=== PATIENT | female | born 1970 | race Caucasian/White ===

== ENCOUNTER 2017-07-07 14:00 | Outpatient (RCR) | payer BC, SELFPAY ==
--- NOTE | 2017-05-30 10:06 | HP.PTEVAL_ITS ---
Patient's Visit Information VALORIE STARK is a 47 year old F referred to Physical Therapy by Prudence Waterman DO with a diagnosis of RIGHT KNEE MILD MENISCUS TEAR/MFC STRESS FX. Date of Evaluation: 05/30/17 Physical Therapist: Maryellen Méndez Visit Plan Frequency: 2-3x /Week Duration: 4-6 Weeks Plan: AQUATIC THERAPY FOR CORE STRENGTHENING AND RIGHT LE ROM, STRETCHING AND STRENGTHENING TOLERATED. MONITOR RIGHT FOOT AND LEFT ANKLE SX'S. 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 SOME STEPS. LONG WALK INTO WORK FROM CAR. Disability: SHORT TERM DISABILITY UNTIL JUN 10 2017. Present symptoms: GENERALLY THE WHOLE KNEE AREA - ABOVE KNEE, BELOW KNEE THE INSIDE AND THE OUTSIDE. NOT REALLY IN THE BACK. TINGLING IN THE KNEE CAP AREA. THERE IS SOMETHING RIGHT FOOT SWELLS AND IS WONDERING IF SHE HAS A STRESS FRACTURE IN HER FOOT TOO. STATES DR. WATERMAN KNOWS ABOUT INTERMITTENT PAIN ON THE TOP OF HER RIGHT FOOT. FOOT SWELLS AND SOMETIMES SHE HAS TO TAKE HER SHOE OFF. BETTER NOW THAT SHE IS NOT WORKING AND ELEVATING IT MORE. LEFT ANKLE FEELS LIKE IT WANTS TO GIVE OUT ON STEPS SOMETIMES. IT IS WOBBLY AND PATIENT RELATES THE LLE SX'S ON THE STEPS FROM COMPENSATING FOR RIGHT KNEE. Present since: APR 07 2017. Pain Scale: KNEE: WORST 8/10, LEAST 2/10, RIGHT FOOT: WORST 7/10, LEAST 0/10. LEFT ANKLE : WORST 5/10, LEAST 0/10. Currently: RIGHT KNEE: 5/10, RIGHT FOOT: 2/10, LEFT ANKLE 0/10. Commenced as a result of: WENT TO THE GYM AT [employer] AT LUNCH AND DID ELIPTICAL. DIDN'T FEEL A PULL OR ANYTHING BUT WHEN SHE LEFT SHE WAS LIMPING AND IT GOT PROGRESSIVELY WORSE. Symptoms at onset: RIGHT KNEE. Worse: STEPS, SITTING AT DESK WITH KNEE BENT FOR 8-9 HOURS, RANDOM - WALKING, PROLONGED STANDING, ANY WEIGHT BEARING AND EVEN TRYING TO KICK COVERS OFF SOMETIMES. TWISTING TO GET IN/OUT OF CAR. Better: LYING DOWN AND ELEVATING IT WITH ICE HELPS. Disturbed sleep: YES. Previous history/Previous treatment: UNREMARKABLE. Gait: STARTED USING CRUTCHES ABOUT A WEEK AGO. WEIGHT BEARING TOLERATED PER DR. WATERMAN BUT USE CRUTCHES MUCH POSSIBLE. Accidents: NO. Unexplained weight loss: NO. Imaging: MRI RIGHT KNEE - STRESS FX ON FEMOR, TORN MENISCUS, LOSS OF CARTILEGE, BONE SPURS AND ARTHRITS PER PATIENT REPORT. RIGHT KNEE X-RAYS - NEGATIVE PER ORIG ASSESSMENT. NO IMAGING OF FEET OR ANKLES. ALSO HAD US TO CHECK FOR BLOOD CLOTS TWO WEEKS AGO AND THAT WAS NEGATIVE. PMH: UNREMARKABLE. Recent major surgery: UNREMARKABLE. OTHER: YESTERDAY SHE HAD FLUID DRAINED FROM HER KNEE AND A CORTISONE SHOT. PATIENT REPORTS SHE WAS ADIMIT WITH DR. WATERMAN ABOUT NOT WANTING ANY SURGERY. STATES DR. WATERMAN TOLD HER THE FX IS SMALL ENOUGH THAT SHE THINKS IT WILL HEAL ON ITS OWN. PATIENT REPORTS ISSUES WITH UPPER BACK AND NECK FOR YEARS PROBABLY RELATED TO DESK JOB - FLARED UP NOW. OCCASSIONAL LOW BACK PAIN - NOT FLARED UP NOW. 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 SEEMED GET BETTER. - Objective Sitting Posture: POOR. Standing Posture: FAIR. Lordosis: REDUCED. Lateral shift: NO. Relevant shift: N/A. Active Correction of posture: NE. Other Observations: DECREASED KNOWLEGE OF PROPER CRUTCH USE. INDEP SIT TO STAND BUT UE DEPENDENT. Motor deficit: LLE 5/5 WITH MMT. RIGHT LE: HIP 3/5, KNEE EXT 2 +/5, KNEE FLEX 2+/5 ANKLE DORSIFLEX 4/5, EHL 5/5. Sensory deficit: RIGHT KNEE HYPERSENSATIVITY. ROM deficit: TIGHT TERRANCE HS'S AND GASTROC SOLEUS COMPLEX'S. RIGHT KNEE ROM IN SUPINE WITH A HEEL SLIDE = FULL EXT TO 75 DEG FLEX. Reflexes : NT. Dural Signs: NEGATIVE TERRANCE LE DURAL SIGNS ALTHOUGH SUSPICIOUS OF RIGHT SCIATICA. Lumbar mvmt loss: flex - NIL. ext - MOD TO CELE. R SG - MIN. L SG - MIN. Core strength: POOR. Palpation: RIGHT KNEE EDEMA. OTHER: PATIENT HAS RIGHT KNEE BRACE THAT SHE WAS GIVEN BY DR. WATERMAN AND HER UNDERSTANDING IS THAT THE CRUTCHES AND RIGHT KNEE BRACE ARE TO BE USED NEEDED. TREATMENT: PWB/WBAT RIGHT LE WITH CRUTCHES ON LEVEL SURFACES AND UP AND DOWN STEPS. CRUTCHES ADJUSTED FOR PROPER FIT. HOME INSTRUCTIONS FOR USE OF KNEE BRACE AND CRUTCHES FOR AT LEAST A FEW DAYS TO NORMALIZE GAIT. INSTRUCTED IN AP'S AND QS' S FOR HEP. - Rehabilitation Potential Rehabilitation Potential: Fair - Anticipated Interventions Patient/Client Instruction: Educate patient on: Condition, Plan of Care, Risk Factors, Benefits of Fitness Program For the Purpose of:: To improve self management Therapeutic Exercise to Include: Strength training, Flexibilty training, Gait and locomotor training, In an aquatic setting, Active ROM, Dynamic Lumbar Stabilization For the Purpose of:: To improve ability of physical actions for home/community/ work/leisure Thank you for the opportunity to evaluate your patient. For Medicare and Medicare HMO plans, please review the plan of care and approve it. It will need to be FAXED BACK to us at [phone] for Medicare purposes. Please let me know if there are questions or concerns regarding this plan of care. Physician Signature: Date:
--- NOTE | 2017-07-07 16:29 | HP.PTREVAL ---
Prudence Kulkarni, DO, It has been my pleasure to treat VALORIE STARK over the last 15 visits for RIGHT KNEE MILD MENISCUS TEAR/MFC STRESS FX. Please see the progress note below for an update on the physical therapy plan of care! Subjective: PATIENT REPORTS SHE IS STILL HAVING TROUBLE ON STEPS BUT DOING WELL OTHERWISE. PATIENT REPORTS DR. KULKARNI RELEASED HER TO GO BACK TO WORK JUN 10 2017 BUT HER WORK DID NOT ALLOW HER TO GO BACK BECAUSE THEY COULD NOT ACCOMODATE HER CURRENT RESTRICTIONS. SHE STATES THAT THE HR SUPERVISOR [employer] SAID SHE COULD NOT GO BACK UNTIL JUL 22 2017. SHE IS STILL ON FMLA. SHE REPORTS SHE CAN DO ONE STEP AT A TIME THOUGH. PATIENT REPORTS SHE HAS MOSTLY GOOD DAYS BUT SOME BAD DAYS. SWELLING RIGHT KNEE LAST NIGHT - BETTER TODAY. Objective/Function: THIS PATIENT IS SHOWING IMPROVEMENT BUT STILL WITH SIGNIFICANT RIGHT KNEE TENDERNESS, SWELLING, LIMITED MOBILITY AND FUNCTION. STEPS ARE A CHALLENGE. UPON EXAM: SHE IS NOW ABLE TO INDEP SIT TO STAND WITHOUT UE ASSIST. Motor deficit: LLE 5/5 WITH MMT. RIGHT LE: HIP 4/5, KNEE EXT 3+ to 4-/5, KNEE FLEX 2+/5 ANKLE DORSIFLEX 5/5, EHL 5/5. Sensory deficit: RIGHT ANTERIOR KNEE HYPERSENSATIVITY BUT MORE LOCALIZED NOW THAN INITIAL EVAL. ROM deficit: TIGHT TERRANCE HS'S AND GASTROC SOLEUS COMPLEX'S. RIGHT KNEE ROM IN SUPINE WITH A HEEL SLIDE = FULL EXT TO 100 DEG FLEX. THIS IS A 25 DEG IMPROVEMENT FROM EVAL. Dural Signs: NEGATIVE TERRANCE LE DURAL SIGNS ALTHOUGH SUSPICIOUS OF RIGHT SCIATICA. Lumbar mvmt loss: flex - NIL - PROVOKES LBP TODAY. ext - MOD - TIGHTNESS LOW BACK. R SG - MIN. L SG - MIN. Core strength: POOR. Palpation: RIGHT KNEE EDEMA STILL PRESENT WITH MINIMAL IMPROVEMENT. OTHER: PATIENT HAS RIGHT KNEE BRACE THAT SHE WAS GIVEN BY DR. KULKARNI AND AMBULATES INDEP'LY INTO PT TODAY WITHOUT ANY ASSISTIVE DEVICES LIMPING ON THE RIGHT LE. RECOMMEND FOLLOW UP WITH DR. KULKARNI AT THIS POINT FOR UPDATE OF WORK RESTRICTIONS AND RECOMMENDATIONS. Plan Plan: RECOMMEND CONTINUED AQUATIC THERAPY DUE TO IMPROVEMENT THUS FAR FOR CORE STRENGTHENING AND RIGHT LE ROM, STRETCHING AND STRENGTHENING TOLERATED IF DR. KULKARNI CONCURS. PATIENT AGREEABLE WITH FOLLOW UP WITH DR. KULKARNI AT THIS POINT. MONITOR RIGHT FOOT AND LEFT ANKLE SX'S. Anticipated Interventions Patient/Client Instruction: Educate patient on: Condition, Plan of Care, Risk Factors, Benefits of Fitness Program For the Purpose of:: To improve self management Therapeutic Exercise to Include: Strength training, Flexibilty training, Gait and locomotor training, In an aquatic setting, Active ROM, Dynamic Lumbar Stabilization For the Purpose of:: To improve ability of physical actions for home/community/work/leisure Please do not hesitate to contact me at [phone] by phone or if you have questions or concerns regarding this new plan of care! Sincerely, Maryellen Royal
== END 2017-07-07 14:30 | disposition home or self-care (01) ==
LOC: PT 14:00
PROVIDERS: Family Provider Physician Assistant; PCP Physician Assistant; Visit Provider Orthopaedic Surgery
DX: S83.201D Bucket-handle tear of unspecified meniscus, current injury, left knee, subsequent encounter (principal); S72.431D Displaced fracture of medial condyle of right femur, subsequent encounter for closed fracture with routine healing
CPT/HCPCS: 97113; 97116; 97161; 97530

== ENCOUNTER → 2018-01-30 14:50 | Outpatient (CLI) | payer BC, SELFPAY | PROVIDERS: Family Provider Nurse Practitioner Primary Care; PCP Nurse Practitioner Primary Care; Visit Provider Nurse Practitioner Primary Care | DX: Z12.31 Encounter for screening mammogram for malignant neoplasm of breast (principal) | CPT/HCPCS: 77063; 77067 ==

== ENCOUNTER → 2018-02-10 13:32 | Outpatient (CLI) | payer BC, SELFPAY | PROVIDERS: Family Provider Nurse Practitioner Primary Care; PCP Nurse Practitioner Primary Care; Visit Provider Nurse Practitioner Primary Care | DX: R92.8 Other abnormal and inconclusive findings on diagnostic imaging of breast (principal) | CPT/HCPCS: 76642; 77065 ==

== ENCOUNTER → 2018-02-27 10:30 | Outpatient (CLI) | payer BC, SELFPAY ==
--- NOTE | 2018-02-27 11:00 | BRBX_PTH ---
PATIENT: VALORIE RUSSELL LOC: [facility] U#:[id number] AGE/SX: 55/F ROOM: RE02/27/[address]: Dr. Elvin Wolfe MD : 1970 BED: DIS: SPEC #: [id number] RECD: 02/27/18 12:20 STATUS: JOANN MORA #: [id number] MIKI: 02/27/18 11:[address]: Elvin Wolfe DEPT: SURGICAL PATHOLOGY RECD BY: Rafa Granados ENTERED: 02/27/18 12:28 SP TYPE: BREAST BX OTHR DR: Maida Kim, SWIMMING POOL MAINTENANCE-C Tissues: Right breast, NOS Procedures: Surgery Specimen Level IV HEADER OPERATION: Right stereotactic breast biopsy PRE-OP DIAGNOSIS: Right breast deep medial aspect density TISSUE SUBMITTED: Right breast core tissue ISCHEMIC TIME: 1 minute FIXATION TIME: 56.5 hours MICROSCOPIC DIAGNOSIS Right breast, deep medial aspect, core biopsy: Fibrocystic change. Focal intraductal hyperplasia without atypia. Evidence of malignancy. AM:nadir 03/02/18 MICROSCOPIC DESCRIPTION Slides are reviewed. GROSS DESCRIPTION Received is one container labeled with the patient's name and not further designated. The specimen consists of multiple elongated fragments of villarreal-yellow fibroadipose tissue that in aggregate measure 7.5 x 3 x 0.3 cm. The entire specimen is submitted in three cassettes. / SJ:nadir 02/27/18 TC:5 CPT: 41609
--- NOTE | 2018-02-27 11:00 | BRBX_PTH ---
PATIENT: VALORIE RUSSELL LOC: [facility] U#:[id number] AGE/SX: 55/F ROOM: RE02/27/[address]: Dr. Elvin Wolfe MD : 1970 BED: DIS: SPEC #: [id number] RECD: 02/27/18 12:20 STATUS: JOANN MORA #: [id number] MIKI: 02/27/18 11:[address]: Elvin Wolfe DEPT: SURGICAL PATHOLOGY RECD BY: Rafa Granados ENTERED: 02/27/18 12:28 SP TYPE: BREAST BX OTHR DR: Maida Kim, CREDIT CORRESPONDENCE CLERK-C Tissues: Right breast, NOS Procedures: Surgery Specimen Level IV HEADER OPERATION: Right stereotactic breast biopsy PRE-OP DIAGNOSIS: Right breast deep medial aspect density TISSUE SUBMITTED: Right breast core tissue ISCHEMIC TIME: 1 minute FIXATION TIME: 56.5 hours MICROSCOPIC DIAGNOSIS Right breast, deep medial aspect, core biopsy: Fibrocystic change. Focal intraductal hyperplasia without atypia. No evidence of malignancy. AM:nadir 03/02/18 AM:nadir 03/03/18 MICROSCOPIC DESCRIPTION Slides are reviewed. GROSS DESCRIPTION Received is one container labeled with the patient's name and not further designated. The specimen consists of multiple elongated fragments of villarreal-yellow fibroadipose tissue that in aggregate measure 7.5 x 3 x 0.3 cm. The entire specimen is submitted in three cassettes. / SJ:nadir 02/27/18 TC:5 CPT: 38425
--- NOTE | 2018-02-27 11:11 | PCM.OPRPT ---
Problem List (1) Abnormal mammogram of right breast Status: Acute Report of Operation Date of Procedure: 02/27/18 Pre-Operative Diagnosis: Vague density medial right breast Post-Operative Diagnosis: Same Surgery/Procedure Performed:: Stereotactic needle core medial right breast biopsy Description of Surgical Findings:: Timeout and informed consent was obtained. 47-year-old female was taken to the stereotactic room placed on the table. The right breast was placed in a craniocaudal view. The density in question was identified. Stereotactic images were obtained. Digital information was obtained on a single target site. The breast was prepped with Betadine. 1% lidocaine was used as a local anesthetic. A total of 10 cc was used. A small stab incision was created. An 8-gauge mammotome needle was advanced to prefire depth. Pre-and post fire films were obtained. Multiple cores were obtained. A marking clip was left at 12 o'clock position. On fast view demonstrated a marking clip to be in good position. She was released from the device. Pressure was held for hemostasis. Steri-Strips Telfa OpSite dressing applied. She was given activity and wound care instructions. The specimens were immediately placed in formalin for analysis. She will be provided a phone contact with pathology results as soon as they become available. Specimens include breast core biopsies. Drains none. Blood loss minimal. Elvin Wolfe M.D., F.A.C.S. Type of Anesthesia:: Local
== END ==
PROVIDERS: Family Provider Nurse Practitioner Primary Care; PCP Nurse Practitioner Primary Care; Visit Provider Surgery
DX: N62 Hypertrophy of breast (principal); R92.8 Other abnormal and inconclusive findings on diagnostic imaging of breast
CPT/HCPCS: 19081; 88305; J7050

== ENCOUNTER → 2018-09-08 08:55 | Outpatient (CLI) | payer BC, SELFPAY ==
[2018-02-20 15:37] VITALS: BMI 32.6
--- NOTE | 2018-09-08 08:59 | BI_ITS ---
MAMMOGRAPHY - UNILATERAL DIAGNOSTIC: RIGHT BREAST REASON FOR EXAM: Female, 48 years old. Six-month follow-up mammogram following stereotactic breast biopsy of the nodular density. PERTINENT HISTORY: Non-contributory. TECHNIQUE: Digital unilateral breast john (3D mammographic acquisition) in the CC and MLO projections. 2-D mediolateral oblique (MLO) and craniocaudad (CC) views of both breasts were obtained. CAD: Full Field Digital Mammography with Computer Added Detection was performed. COMPARISON: Comparison is made with prior mammogram dated January 30, 2018 and February 10, 2018. FINDINGS: Breast Composition: The breasts are heterogeneously dense, which may obscure small masses. A tissue clip marker is now seen within the 1 cm nodular density in the deep slightly medial aspect of the right breast No other significant abnormalities are identified. BI/DIAG MAMM W/CAD, UNILAT IMPRESSION: A tissue clip marker is seen within the nodular density at the site of the prior biopsy. No new abnormality is seen. One year follow-up mammogram recommended. (A) ASSESSMENT CATEGORY: BIRADS Category 2: Benign. A letter regarding these results will be sent to the patient by the facility within 30 days. Approximately 10% of breast cancers are not detected by mammography. A normal mammogram should not delay biopsy of a clinically suspicious abnormality. Electronically Signed: Amor Cedillo, at 10:36 EDT , Service support ,
== END ==
PROVIDERS: Family Provider Nurse Practitioner Primary Care; PCP Nurse Practitioner Primary Care; Referring Provider Surgery; Visit Provider Surgery
DX: N63.10 Unspecified lump in the right breast, unspecified quadrant (principal)
CPT/HCPCS: 77061; 77065; G0279

== ENCOUNTER → 2019-04-05 | Outpatient (CLI) | payer BC, SELFPAY ==
[2019-02-11 14:51] VITALS: BMI 32.6
--- NOTE | 2019-04-05 07:10 | MRI_ITS ---
STUDY: MRI RIGHT KNEE REASON FOR EXAM: Right knee pain, twisting injury in March 2017. TECHNIQUE: Standardized fat and water weighted pulse sequences were obtained in all 3 orthogonal planes. COMPARISON: MRI images 05/19/2017. FINDINGS: There is a radial tear at the root of the posterior horn of the medial meniscus (T2 coronal image 17; T2 sagittal image 15) mildly increased in size since the prior study. There is peripheral subluxation of the medial meniscus. There is arthrosis of the medial femorotibial compartment with small marginal osteophytes and chondral thinning (T2 sagittal image 16). There is resolution of the previous subchondral stress fracture of the medial femoral condyle with only slight residual bone edema in the medial femoral condyle. Normal medial collateral ligamentous complex (MCL). Normal distal semimembranosus, gracilis and semitendinosus tendons. Normal lateral meniscus. Normal hyaline cartilage of the lateral femorotibial compartment. There are very small marginal osteophytes of the lateral femorotibial compartment. Normal lateral femoral condyle and tibial plateau. Normal proximal tibiofibular articulation. Normal lateral collateral (fibular) ligament. Normal popliteus tendon. Normal biceps femoris tendon. Normal anterior cruciate ligament (ACL). Normal posterior cruciate ligament (PCL). Normal congruent patellofemoral articulation. There is a focal chondral defect of the patella (T2 axial image 10) similar to the prior study and a chondral fissure of the lateral femoral trochlea (T2 sagittal image 9). Normal medial and lateral patellar retinaculum. Normal visualized quadriceps tendon. Normal patellar tendon. Normal Hoffa's fat pad. There is a small joint effusion with mild synovitis in the suprapatellar recess (T2 axial images 5-9). There is a mildly thickened medial patellar plica (T2 axial images 12, 13). There is a popliteal cyst measuring 7.8 cm in length (T2 sagittal images 13-21). There is a ganglion cyst superior to the posterior cruciate ligament (T2 sagittal image 12) measuring 3.1 cm in length. The otherwise visualized osseous structures are unremarkable. MRI/Lower Ext Joint Only (Routine) IMPRESSION: Radial tear at the root of the posterior horn of the medial meniscus. Arthrosis of the medial femorotibial compartment. Focal chondral defect of the patella and chondral fissure of the lateral femoral trochlea. Small joint effusion with mild synovitis. Popliteal cyst. Mildly thickened medial patellar plica. Ganglion cyst superior to the posterior cruciate ligament. Electronically Signed: El Flaherty MD at 8:46 EDT Tel , Service support ,
== END | disposition home or self-care (01) ==
PROVIDERS: Family Provider Nurse Practitioner Primary Care; PCP Nurse Practitioner Primary Care; Referring Provider Orthopaedic Surgery; Visit Provider Orthopaedic Surgery
DX: S83.206D Unspecified tear of unspecified meniscus, current injury, right knee, subsequent encounter (principal)
CPT/HCPCS: 73721

== ENCOUNTER → 2019-04-09 15:23 | Outpatient (CLI) | payer BC, SELFPAY ==
[2019-02-11 14:51] VITALS: BMI 32.6
--- NOTE | 2019-04-09 15:26 | BI_ITS ---
MAMMOGRAPHY - BILATERAL SCREENING REASON FOR EXAM: Female, 49 years old. Routine annual screening examination. PERTINENT HISTORY: Non-contributory. TECHNIQUE: Digital bilateral breast tory (3D mammographic acquisition) in the CC and MLO projections. 2-D mediolateral oblique (MLO) and craniocaudad (CC) views of both breasts were obtained. CAD: Full Field Digital Mammography with Computer Added Detection was performed. COMPARISON: Comparison is made with prior study dated September 08, 2018 and January 30, 2018. FINDINGS: Breast Composition: The breasts are heterogeneously dense, which may obscure small masses. There are no dominant masses or suspicious calcifications. A tissue clip marker is seen in the tiny nodular density in the deep upper central portion of the right breast. No other significant abnormalities are identified. There has been no significant change since the prior study. BI/SCREEN MAMM (CAD) W/TORY BILAT IMPRESSION: Stable bilateral screening mammogram. Yearly follow-up mammogram recommended. (A) ASSESSMENT CATEGORY: BIRADS Category 2: Benign. A letter regarding these results will be sent to the patient by the facility within 30 days. Approximately 10% of breast cancers are not detected by mammography. A normal mammogram should not delay biopsy of a clinically suspicious abnormality. [id number] Electronically Signed: Amor Cedillo, at 8:46 EST , Service support ,
== END ==
PROVIDERS: Family Provider Nurse Practitioner Primary Care; PCP Nurse Practitioner Primary Care; Referring Provider Nurse Practitioner Primary Care; Visit Provider Nurse Practitioner Primary Care
DX: Z12.31 Encounter for screening mammogram for malignant neoplasm of breast (principal)
CPT/HCPCS: 77063; 77067

== ENCOUNTER → 2021-04-19 10:14 | Outpatient (CLI) | payer BC, SELFPAY ==
--- NOTE | 2021-04-19 10:16 | BI_ITS ---
MAMMOGRAPHY - BILATERAL SCREENING REASON FOR EXAM: Female, 51 years old. Routine annual screening examination. PERTINENT HISTORY: Non-contributory. Prior right stereotactic breast biopsy. Occasional left mild breast tenderness. TECHNIQUE: Digital bilateral breast tory (3D mammographic acquisition) in the CC and MLO projections. 2-D mediolateral oblique (MLO) and craniocaudad (CC) views of both breasts were obtained. CAD: Full Field Digital Mammography with Computer Added Detection was performed. COMPARISON: Comparison is made with prior study dated 04/09/2019 and 09/08/2018. FINDINGS: Breast Composition: The breasts are heterogeneously dense, which may obscure small masses. There are no dominant masses or suspicious calcifications. A tissue clip marker is seen in the deep upper slightly medial aspect of the right breast. No other significant abnormalities are identified. There has been no significant change since the prior study. BI/SCRN MAMM (CAD)W/TORY BILAT IMPRESSION: Stable bilateral screening mammogram. Yearly follow-up mammogram recommended. (A) ASSESSMENT CATEGORY: BIRADS Category 2: Benign. A letter regarding these results will be sent to the patient by the facility within 30 days. Approximately 10% of breast cancers are not detected by mammography. A normal mammogram should not delay biopsy of a clinically suspicious abnormality. [id number] Electronically Signed: Amor Cedillo MD at 10:57 EST , Service support ,
== END ==
PROVIDERS: PCP Nurse Practitioner Primary Care; Referring Provider Nurse Practitioner Primary Care; Visit Provider Nurse Practitioner Primary Care
DX: Z12.31 Encounter for screening mammogram for malignant neoplasm of breast (principal)
CPT/HCPCS: 77063; 77067

== ENCOUNTER 2022-01-02 10:58 | Outpatient (RCR) | payer BC, SELFPAY | END 2022-01-06 23:59 | LOC: NS 10:58 | PROVIDERS: PCP Nurse Practitioner Primary Care | DX: Z71.3 Dietary counseling and surveillance (principal); E66.9 Obesity, unspecified; Z68.35 Body mass index [BMI] 35.0-35.9, adult | CPT/HCPCS: 97802 ==

== ENCOUNTER → 2022-02-01 | Outpatient (CLI) | payer BC, SELFPAY ==
--- NOTE | 2022-02-01 07:27 | MRI_ITS ---
STUDY: MRI LEFT KNEE REASON FOR EXAM: Increasing left knee pain. TECHNIQUE: Standardized fat and water weighted pulse sequences were obtained in all 3 orthogonal planes. COMPARISON: Radiographs 01/17/2022. FINDINGS: There is a radial tear at the root of the posterior horn of the medial meniscus (T2 coronal images 11, 12). There is peripheral subluxation of the medial meniscus. There is arthrosis of the medial femorotibial compartment with marginal osteophytes and chondral loss (T2 sagittal image 8). There is a small focus of subchondral bone edema of the medial plateau (T2 coronal images 17-19), a stress phenomenon. Normal medial collateral ligamentous complex (MCL). Normal distal semimembranosus, gracilis and semitendinosus tendons. Normal lateral meniscus. Normal hyaline cartilage of the lateral femorotibial compartment. There are marginal osteophytes of the lateral femorotibial compartment. Normal lateral femoral condyle and tibial plateau. Normal proximal tibiofibular articulation. Normal lateral collateral (fibular) ligament. Normal popliteus tendon. Normal biceps femoris tendon. Normal anterior cruciate ligament (ACL). Normal posterior cruciate ligament (PCL). Normal congruent patellofemoral articulation. There is arthrosis of the patellofemoral compartment with marginal osteophytes and partial-thickness chondral loss (T2 sagittal image 12). Normal medial and lateral patellar retinaculum. Normal quadriceps tendon. Normal patellar tendon. Normal Hoffa''s fat pad. There is a small joint effusion. There is a thickened medial patellar plica (T2 axial images 12, 13). There is a popliteal cyst measuring 7.1 cm in length (T2 sagittal images 7-13). There is a ganglion cyst proximal to the posterior cruciate ligament (T2 sagittal image 14) measuring 1.8 cm in length. There is mild edema in the anterior subcutis adipose space. There is mild cystic change of the proximal tibia near the insertion sites of the cruciate ligaments. MRI/Lower Ext Joint Only (Routine) IMPRESSION: Radial tear at the root of the posterior horn of the medial meniscus. Arthrosis of the medial femorotibial and patellofemoral compartments. Small focus of subchondral bone edema of the medial tibial plateau, a stress phenomenon. Small joint effusion. Popliteal cyst. Thickened medial patellar plica. Posterior ganglion cyst. Electronically Signed: El Flaherty MD at 9:31 EDT ,
--- NOTE | 2022-02-01 07:27 | MRI_ITS ---
STUDY: MRI RIGHT KNEE REASON FOR EXAM: Right knee pain, stiffness, swelling. TECHNIQUE: Standardized fat and water weighted pulse sequences were obtained in all 3 orthogonal planes. COMPARISON: Radiographs 01/17/2022, MRI images 04/05/2019. FINDINGS: There is a radial tear at the root of the posterior horn of the medial meniscus (T2 coronal image 10) with little interval change prior study. There is peripheral subluxation of the medial meniscus. There is arthrosis of the medial femorotibial compartment with marginal osteophytes and chondral loss (T2 sagittal image 9). There is very mild subchondral bone edema of the medial tibial plateau (T2 coronal images 14-17), a stress phenomenon. Normal medial collateral ligamentous complex (MCL). Normal distal semimembranosus, gracilis and semitendinosus tendons. Normal lateral meniscus. Normal hyaline cartilage of the lateral femorotibial compartment. There are small marginal osteophytes of the lateral femorotibial compartment. Normal lateral femoral condyle and tibial plateau. Normal proximal tibiofibular articulation. Normal lateral collateral (fibular) ligament. Normal popliteus tendon. Normal biceps femoris tendon. Normal anterior cruciate ligament (ACL). Normal posterior cruciate ligament (PCL). Normal congruent patellofemoral articulation. There is arthrosis of the patellofemoral compartment with marginal osteophytes and partial-thickness chondral loss (T2 sagittal image 13). Normal medial and lateral patellar retinaculum. Normal quadriceps tendon. Normal patellar tendon. Normal Hoffa''s fat pad. There is a small joint effusion with synovitis (T2 axial images 5-14). There is a popliteal cyst measuring 8.6 in length (T2 sagittal images 4-11). There is a ganglion cyst proximal to the posterior cruciate ligament (T2 sagittal images 14, 15) measuring 3 cm in length. The otherwise visualized osseous structures are unremarkable. MRI/Lower Ext Joint Only (Routine) IMPRESSION: Radial tear at the root of the posterior horn of the medial meniscus with little interval change. Arthrosis of the medial femorotibial and patellofemoral compartments. Small joint effusion with synovitis. Popliteal cyst. Posterior ganglion cyst. Electronically Signed: El Flaherty MD at 9:21 EDT ,
== END | disposition home or self-care (01) ==
PROVIDERS: PCP Nurse Practitioner Primary Care; Referring Provider Physician Assistant; Visit Provider Physician Assistant
DX: M17.0 Bilateral primary osteoarthritis of knee (principal); M25.562 Pain in left knee
CPT/HCPCS: 73721

== ENCOUNTER 2022-05-07 16:17 | Outpatient (CLI) | payer BC, SELFPAY ==
--- NOTE | 2022-05-07 16:19 | BI_ITS ---
MAMMOGRAPHY - BILATERAL SCREENING REASON FOR EXAM: Female, 52 years old. Routine annual screening examination. PERTINENT HISTORY: Non-contributory. History of prior right stereotactic breast biopsy. TECHNIQUE: Digital bilateral breast tory (3D mammographic acquisition) in the CC and MLO projections. 2-D mediolateral oblique (MLO) and craniocaudad (CC) views of both breasts were obtained. CAD: Full Field Digital Mammography with Computer Added Detection was performed. COMPARISON: Comparison is made with prior examination dated 04/19/2021 and 04/09/2019. FINDINGS: Breast Composition: The breasts are heterogeneously dense, which may obscure small masses. There are no dominant masses or suspicious calcifications. Once again, a tissue clip marker is seen in the deep upper slightly medial aspect of the right breast. Stable small benign-appearing bilateral axillary lymph nodes. No other significant abnormalities are identified. There has been no significant change since the prior study. BI/SCRN MAMM (CAD)W/TORY BILAT IMPRESSION: Stable bilateral screening mammogram. Yearly follow-up mammogram recommended. (A) ASSESSMENT CATEGORY: BIRADS Category 2: Benign. A letter regarding these results will be sent to the patient by the facility within 30 days. Approximately 10% of breast cancers are not detected by mammography. A normal mammogram should not delay biopsy of a clinically suspicious abnormality. [id number] Electronically Signed: Amor Cedillo MD at 8:26 EST ,
== END 2022-05-07 23:59 | disposition home or self-care (01) ==
PROVIDERS: PCP Nurse Practitioner Primary Care; Visit Provider Nurse Practitioner Primary Care
DX: Z12.31 Encounter for screening mammogram for malignant neoplasm of breast (principal)
CPT/HCPCS: 77063; 77067

== ENCOUNTER 2022-05-10 11:37 | Outpatient (CLI) | payer BC, SELFPAY ==
--- NOTE | 2022-05-10 11:12 | US_ITS ---
STUDY: ULTRASOUND BREAST - LEFT REASON FOR EXAM: Female, 52 years old. Abnormal screening mammogram. TECHNIQUE: Axial and longitudinal images of the LEFT breast were performed with a high resolution ultrasound transducer. # OF IMAGES: 58 COMPARISON: Comparison is made with prior mammogram dated 05/07/2022. FINDINGS: LEFT Breast: The upper lateral aspect of the right breast was examined with ultrasound. There is a 1.87 x 1.7 cm x 1.9 cm lobulated hypoechoic solid nodule at the 2 o''clock position of the breast at 9 sinus from nipple. A similar appearing irregular nodular density is seen at the 1 o''clock position of the breast at 7 cm from nipple. This measures 1.3 cm x 1.2 cm x 1.6 cm. US/Breast Limited Unilateral IMPRESSION: There are 2 adjacent irregular hypoechoic solid nodules at the 1 o''clock and 2 o''clock position of the left breast as described. Biopsy recommended. ASSESSMENT CATEGORY: BIRADS Category 4: Suspicious - Biopsy Should Be Considered. A letter regarding these results will be sent to the patient by the facility within 30 days. Electronically Signed: Amor Cedillo MD at 8:40 EST ,
== END 2022-05-10 23:59 | disposition home or self-care (01) ==
LOC: OPUS 11:38
PROVIDERS: PCP Nurse Practitioner Primary Care; Referring Provider Nurse Practitioner Primary Care; Visit Provider Nurse Practitioner Primary Care
DX: R92.8 Other abnormal and inconclusive findings on diagnostic imaging of breast (principal); N63.21 Unspecified lump in the left breast, upper outer quadrant
CPT/HCPCS: 76642

== ENCOUNTER 2022-05-23 02:12 | Emergency (ER) | payer BC, SELFPAY ==
[2022-05-23 02:13] VITALS: BP 142/54; PULSE 93; RESP 20; TEMP 36.7; O2SAT 98; BMI 37.0
--- NOTE | 2022-05-23 02:18 | EDS_ITS ---
HPI History of Present Illness Chief Complaint: Chest Pain Detail of Chief Complaint: Left sided chest discomfort Informant: patient Onset/Context/Timing Onset: Yesterday (2100) and Hours Activity at onset: sudden Timing: Continuous Quality: Positive for - (Discomfort fullness from the axilla to the left sternal border and upper breast region) Location: - (Left-sided chest as previously described) Current Severity: Mild Maximum Severity: Moderate Worsened By: Nothing Relieved By: Nothing Associated Symptoms: Negative for Nausea, Vomiting, Diaphoresis, Cough, Fever, Lightheadedness, Acid Reflux or Palpitations Narrative Narrative: Patient is a 52-year-old woman who had a recent mammogram, 2 weeks ago. She had a subsequent ultrasound. She states she needs a biopsy. There is swelling of the left breast and firm sensation upper quadrant to the left breast. She presents because of discomfort that is from the axilla to left sternal border on the left side. There is no radiation. There is no associated symptoms. There is no history of trauma. She denies fever, chills night sweats. She denies cough or shortness of breath. Patient does endorse upper respiratory infection 1 to 2 weeks ago. Prior Similar Symptoms: No Recent Illness/Hospitalization: Yes CVD Risk Factors: Negative for Hypertension, Diabetes, Hypercholesterolemia, Family History 1' </=55 or Smoking PE Risk Factors: Negative for Recent Travel/Surgery, Recent Immobilization, Prior DVT or PE, Cancer or OCP + Smoking + >/=35 TAD Risk Factors: Negative for Marfan's Syndrome, Hypertension or Family History [facility] Medical History (Updated 05/23/22 @ 05:[address] Joaquín Ng MD) Abnormal mammogram of right breast Abnormal mammogram of right breast Arthritis Arthritis Back problem Depression with anxiety Derange anterior horn medial meniscus right knee due to old injury Environmental allergies Headaches, cluster Sebaceous cyst of breast Segmental and somatic dysfunction of cervical region Segmental and somatic dysfunction of lumbar region Segmental and somatic dysfunction of thoracic region Home Medications alprazolam 1 mg tablet (Xanax) 1 mg PO BID-TID PRN 02/20/18 [History Last Taken Unknown] cholecalciferol (vitamin D3) 25 mcg (1,000 unit) capsule 1,000 unit PO DAILY 02/20/18 [History Last Taken Unknown] lactobacillus combination no.8 3 billion cell capsule (Adult Probiotic) 3,000 mmu cells PO DAILY 02/20/18 [History Last Taken Unknown] multivitamin 1 cap PO DAILY 02/20/18 [History Last Taken Unknown] simvastatin 20 mg tablet ea PO 10/22/21 [History Last Taken Unknown] methylprednisolone 4 mg tablets in a dose pack (Medrol (Tyrone)) 4 mg PO DAILY #21 tabs 01/17/22 [Rx Last Taken Unknown] Allergy/AdvReac Type Severity Reaction Status Date / Time No Known Allergies Allergy Verified 05/23/22 02:22 Family History Brother Asthma Sister Asthma Grandfather Colon cancer Mother Diabetes Grandmother CVA (cerebral vascular accident) Surgical History No history of previous surgery Social History (Updated 05/23/22 @ 02:[address] Joaquín Ng MD) household members: spouse Smoking Status: Never smoker alcohol intake: current alcohol intake frequency: holidays/special occasions only substance use type: does not use what type of physical activity do you participate in: running, aerobics and weight training frequency: 3-4 times per week ROS ROS ED Constitutional Constitutional ED: Denies chills, fever(s), subjective, sweats or weight loss Eyes Eyes: Reports none ENT ENT ED: Reports rhinorrhea; Denies ear pain or sore throat Cardiovascular Cardiovascular: Reports as per HPI; Denies orthopnea or paroxysmal nocturnal dyspnea Respiratory/Chest Respiratory/Chest: Denies cough, dyspnea, dyspnea on exertion, orthopnea or paroxysmal nocturnal dyspnea Gastrointestinal Gastrointestinal: Denies abdominal pain, nausea or vomiting Genitourinary Genitourinary ED: Denies hematuria or urinary frequency Musculoskeletal Musculoskeletal: Denies arthralgias, back pain, myalgias or neck pain Hematologic/Lymphatic Hematologic/Lymphatic: Denies easy bleeding, easy bruising or lymphadenopathy EXAM Physical Exam Const Vital Signs: 05/23/22 02:13 05/23/22 02:22 05/23/22 02:23 Temperature 98.0 F 98.0 F Temperature Source Temporal Temporal Pulse Rate 93 96 Respiratory Rate 20 H 18 Respiratory Effort Normal Non-Labored Blood Pressure 142/54 H 142/54 H Blood Pressure Mean 83 83 Pulse Ox 98 99 Oxygen Delivery Method Room Air Room Air 05/23/22 04:13 05/23/22 04:45 Temperature Temperature Source Pulse Rate 97 94 Respiratory Rate 24 H 19 H Respiratory Effort Blood Pressure 119/66 Blood Pressure Mean 83 Pulse Ox 97 100 Oxygen Delivery Method Room Air Room Air Positive well nourished, well developed and obese General Appearance ED: well developed and NAD; Negative for pallor Nutritional Appearance: obese HEENT Reports moist mucous membranes HEENT Narrative: Ears normal. Nares patent. Mucosa moist. normocephalic and atraumatic Eyes PERRL and EOMs intact bilaterally General Eye ED: Negative for pale conjunctiva or scleral icterus Neck no lymphadenopathy, supple and no JVD Chest Wall inspection of chest normal and palpation of chest normal Resp normal respiratory effort and clear to auscultation bilaterally Cardio regular rate, regular rhythm, S1 normal heart sound, S2 normal heart sound and no murmurs GI normal to inspection, nondistended, normoactive bowel sounds, soft to palpation, non-tender, non-distended and no masses; Negative for hepatosplenomegaly Back/Spine Back/Spine Narrative: Back appears no. There is no tenderness to palpate. Extremity normal to inspection General Extremety ED: Negative for edema, pulses abnormal or tenderness General Extremity: Negative for edema or pulses abnormal Neuro oriented x3, CN's II-XII intact bilaterally, no sensory deficits noted and gait normal Sensorium / Orientation: awake and alert Motor Exam: strength 5/5 throughout Psych Mood & Affect: anxious Skin no rashes or lesions noted and no wounds General Skin Exam: Negative for jaundice or pallor Heart Score History: Slightly/Non-Suspicious ECG: Normal Age: >45 - <65 years Risk Factors: No Risk Factors Score: 1 MDM MDM MDM Narrative Medical decision making narrative: Patient presents with atypical chest pain. This may be due to costochondritis, atypical presentation for cardiac ischemia anxiety. EKG was obtained to rule out acute ischemia. Troponin was obtained to evaluate for cardiac ischemia. Lab Data Attestation: I reviewed the patient's lab results. Lab results narrative: First troponin is normal at 6. 2-hour troponin negative. Patient was informed of results at 0404. 2-hour troponin is 6 with a delta of 0. Since both her Leavis and sudden negative predictive value is 100%. Labs: Laboratory Results - last 24 hr 05/23/22 05/23/22 05/23/22 02:27 02:27 04:42 Troponin I High Sens Cancelled 6 6 EKG Initial EKG: Attestation: I personally reviewed and interpreted this EKG as follows: Interpretation: Sinus Rhythm (EKG reveals a normal sinus rhythm rate of 93. GA interval is 152 ms. [place] is to the left. QT interval is normal.) Discharge Plan Triage Chief Complaint: Chest Pain ED Provider: Joaquín Ng Dx/Rx/DC Orders Clinical Impression: Left-sided chest pain, BP (high blood pressure) Instructions: ED Chest Pain, Noncardiac, ED Hypertension, To Be Confirmed Prescriptions: No Action alprazolam [Xanax] 1 mg tablet 1 mg PO BID-TID PRN cholecalciferol (vitamin D3) 1,000 unit capsule 1,000 unit PO DAILY multivitamin capsule capsule 1 cap PO DAILY lactobacillus combination no.8 [Adult Probiotic] 3 billion cell capsule 3,000 mmu cells PO DAILY simvastatin 20 mg tablet PO Label Comments: TAKE 1 TABLET BY MOUTH AT BEDTIME methylprednisolone [Medrol (Tyrone)] 4 mg tablets,dose pack 4 mg PO DAILY Qty: 21 0RF Primary Care Provider: Maida Kim NP Referrals: Maida Kim NP, RN [facility] [Primary Care Provider] - 1-2 Weeks Disposition Disposition: Home, Self Care
--- NOTE | 2022-05-23 02:18 | EKG12_ITS ---
Test Reason : CP Blood Pressure : / mmHG Vent. Rate : 093 BPM Atrial Rate : 093 BPM P-R Int : 152 ms QRS Dur : 100 ms QT Int : 370 ms P-R-T Axes : 060 -48 046 degrees QTc Int : 460 ms Normal sinus rhythm Left axis deviation Poor R wave progression Abnormal ECG Confirmed by KAREEM NOONAN, SATHISH ([id number]), writer editor GEORGETTE WEBER ([id number]) on 05/25/2022 7:24:31 AM Referred By: Confirmed By:SATHISH SERNA MD
[2022-05-23 02:22] VITALS: BP 142/54; PULSE 96; RESP 18; TEMP 36.7; O2SAT 99
[2022-05-23 03:01] LABS: Troponin-I HS (w/2H Reflex) 6 pg/mL (3.0-54.0)
[2022-05-23 04:13] VITALS: PULSE 97; RESP 24; O2SAT 97
[2022-05-23 04:32] LABS: Reflex Troponin-HS? (from REC) Y
[2022-05-23 04:45] VITALS: BP 119/66; PULSE 94; RESP 19; O2SAT 100
[2022-05-23 05:05] LABS: Troponin-I HS 6 pg/mL (3.0-54.0)
[2022-05-23 05:37] VITALS: PULSE 92; RESP 24; O2SAT 100
--- NOTE | 2022-05-23 05:37 | ED.RN ---
No IV obtained from previous RNs. No IV to d/c on discharge.
== END 2022-05-23 05:42 | disposition home or self-care (01) ==
PROVIDERS: Emergency Provider Emergency Medicine; PCP Nurse Practitioner Primary Care; Visit Provider Emergency Medicine
DX: R07.9 Chest pain, unspecified (principal); R03.0 Elevated blood-pressure reading, without diagnosis of hypertension; E66.9 Obesity, unspecified
CPT/HCPCS: 36415; 84484; 93005; 99283

== ENCOUNTER → 2022-05-24 | Outpatient (CLI) | payer BC, SELFPAY ==
[2022-05-24 10:23] VITALS: BP 131/77; PULSE 90; RESP 16; TEMP 36.4; O2SAT 97
[2022-05-24] MEDS: 0.9% NaCl Peripheral Flush Adult/Peds IV ×2 (10:32→10:43)
[2022-05-24] MEDS: 0.9% NaCl IVPB Med Flush (250 mL) 15 ML IV (10:48)
[2022-05-24 11:47] VITALS: BP 136/61; PULSE 84; RESP 16; TEMP 36.6; O2SAT 98
== END | disposition home or self-care (01) ==
PROVIDERS: PCP Nurse Practitioner Primary Care; Referring Provider Surgery; Visit Provider Surgery
DX: N61.1 Abscess of the breast and nipple (principal)
CPT/HCPCS: 96372; 87070; 87075; 87205; J7050; A4216; J0696; J3490

== ENCOUNTER → 2022-06-06 | Outpatient (CLI) | payer BC, SELFPAY ==
--- NOTE | 2022-06-06 | IMM_PTH ---
PATIENT: VALORIE RUSSELL LOC: [facility] U#:[id number] AGE/SX: 52/F ROOM: RE06/06/[address]: Dr. Elvin Wolfe MD : 1970 BED: DIS: 06/06/2022 SPEC #: [id number] RECD: 06/11/22 13:16 STATUS: JOANN REQ #: [id number] MIKI: 06/06/22 00:[address]: Elvin Wolfe DEPT: IMMUNOHISTOCHEMISTRY RECD BY: Sofia Joiner ENTERED: 06/11/22 13:19 SP TYPE: IMMUNO OTHR DR: Maida Kim, SYRUP [employer] SUPERVISOR-C Tissues: A - Left breast, NOS B - Left breast, NOS Procedures: CALPONIN-1 (add) CK5-6 (add) CK8 (add) TONY-2 (add) E-CAD (add) HER2 KELLY (add) KI-67 (add) P53 (add) TN (add) P40 (add) ER (initial) PHYSICIAN & [address] [address] SPECIMEN INFORMATION: Tissue Source: A ? Left breast at 2 o?clock, B - Left breast at 1 o?clock Clinical Info: Left breast lesion Specimen Number: [id number] A & B CPT code: 70782 x2, 34649 x14, 46427 X6 METHODOLOGY: Deparaffinized sections of prefer/formalin-fixed tissue or PAP/DQ stained slides are incubated with monoclonal/polyclonal antibodies/oligonucleotide probes. Localization is made via biotin free immunoperoxidase method. Appropriate controls are performed and reacted as expected. Results on target cell population are indicated in the following table: RESULTS: ANTIBODY / CLONE RESULT Block A P53 (DO-7) positive, 15% Ki-67 (30-9) positive, 45% CK8 (56zhrsJ44) positive CK5-6 (D5 & 1684) negative Calponin-1 (YI378J) negative P40 (BC28) negative E-Cad (ECH-6) positive TONY-2 (SP21) positive MORPHOMETRIC ANALYSIS ER (clone 6F11) >95% (strong intensity) TN (clone 16/1E2) 10% (moderate to weak intensity) Her-2Neu (clone CB11) 3+ Block B P53 (DO-7) positive, 2% Ki-67 (30-9) positive, 50% CK8 (09vbodC85) positive CK5-6 (D5 & 1684) negative Calponin-1 (CT980E) negative P40 (BC28) negative E-Cad (ECH-6) positive TONY-2 (SP21) positive MORPHOMETRIC ANALYSIS ER (clone 6F11) 95% (strong intensity) TN (clone 16/1E2) 15% (moderate intensity) Her-2Neu (clone CB11) 3+ The prognostic test for HER2 is performed on formalin-fixed paraffin embedded tissue. A 3+ (positive) staining pattern is defined as intense, homogeneous, complete, circumferential membranous staining in >10% of contiguous tumor cells. A similar weak (2+) staining pattern is interpreted as equivocal. BRANDY follow-up testing is recommended for all equivocal cases. Positivity/negativity for ER/TN is reported if > or < 1% of the tumor cells are immuno- reactive, respectively. The ASCO/CAP criteria is used for scoring. Reference: Journal of Clinical Oncology, 2013; 31:2631-0254 & 2010; 16:4476-8041. Duration of fixation: 79 Hrs; Sample Adequate: Yes. These assays have not been validated on decalcified tissues. Results should be interpreted with caution given the likelihood of false negativity on decalcified specimens. These tests were developed and their performance characteristics determined by [facility]. They may not have been cleared or approved by the U.S. Food and Drug Administration. The FDA has determined that such clearance or approval is not necessary. The above immunohistochemical/dualISH markers are ordered and reviewed by the Pathologist. INTERPRETATION: A. Left breast at 2 o?clock, biopsy: Invasive ductal carcinoma, nuclear grade 2. Positive for estrogen receptors (favorable prognostic indicator). Positive for progesterone receptors (favorable prognostic indicator). Positive for overexpression of NQU4jxb. B. Left breast at 1 o?clock, biopsy: Invasive ductal carcinoma, nuclear grade 1. Positive for estrogen receptors (favorable prognostic indicator). Positive for progesterone receptors (favorable prognostic indicator). Positive for overexpression of [id number]. AM:nadir 06/12/2022
--- NOTE | 2022-06-06 12:00 | BRBX_PTH ---
PATIENT: VALORIE RUSSELL LOC: [facility] U#:[id number] AGE/SX: 52/F ROOM: RE06/06/[address]: Dr. Elvin Wolfe MD : 1970 BED: DIS: 06/06/2022 SPEC #: [id number] RECD: 06/06/22 13:57 STATUS: JOANN RECate #: [id number] MIKI: 06/06/22 12:[address]: Elvin Wolfe DEPT: SURGICAL PATHOLOGY RECD BY: Kanika Moffett ENTERED: 06/07/22 09:10 SP TYPE: BREAST BX OT DR: Maida Kim, JOSE-Amairani Tissues: A - Left breast, NOS B - Left breast, NOS Procedures: Surgery Specimen Level IV HEADER OPERATION: Left breast biopsy x2 PRE-OP DIAGNOSIS: Left breast lesion TISSUE SUBMITTED: A ? Left breast tissue 2 o?clock +1, B - Left breast tissue 1 o?clock +7 MICROSCOPIC DIAGNOSIS A. Left breast at 2 o?clock, core biopsy: Invasive ductal carcinoma with the following characteristics: Nuclear grade ? 2/3 Maximal length ? 11 millimeters. See comment. B. Left breast at 1 o?clock, core biopsy: Invasive ductal carcinoma with the following characteristics: Nuclear grade ? 1/3 Maximal length ? 9 millimeters. See comment. AM:nadir 06/11/2022 COMMENT A & B. Immunohistochemistry (RF23-2) supports the above diagnosis. MICROSCOPIC DESCRIPTION Slides are reviewed. GROSS DESCRIPTION A - Received in fixative is one container labeled with the patient's name and designated left breast 2 o?clock +1. The specimen consists of two elongated fragments of villarreal-yellow fibroadipose tissue that in aggregate measure 2 x 0.3 x 0.1 cm. The entire specimen is submitted in one cassette. B - Received in fixative is one container labeled with the patient's name and designated left breast 1 o?clock +7. The specimen consists of an elongated fragment of villarreal-yellow fibroadipose tissue measuring 2.3 cm in length and 0.1 cm in diameter. The entire specimen is submitted in one cassette. / SJ:rg 06/07/2022 TC:0 [facility]: 16336 x2 ADDENDUM ADDENDUM ADDENDUM ADDENDUM ADDENDUM ADDENDUM ADDENDUM ADDENDUM ADDENDUM ADDENDUM ADDENDUM ADDENDUM ADDENDUM ADDENDUM ADDENDUM ADDENDUM ADDENDUM ADDENDUM ADDENDUM ADDENDUM ADDENDUM ADDENDUM 07/09/2022 08:54 ADDENDUM 10/29/2022 09:02 ADDENDUM 07/09/2022 08:54 ADDENDUM 07/09/2022 08:54 ADDENDUM 07/09/2022 08:54 ADDENDUM 07/09/2022 08:54 PD-L1 (KEYTRUDA) IMMUNOHISTOCHEMICAL ANALYSIS FROM [facility] RESULTS: Tumor proportion score: <1% / [facility] NGS REPORT FROM [facility] RESULT SUMMARY: Abnormal Immunotherapy Biomarkers: Tumor Mutation [place]: Low (1.6 Mutations / MB) Microsatellite Instability: MSI Negative (1.63%) PERTINENT NEGATIVE RESULTS: The following genes are NEGATIVE for clinically relevant mutations. Mutational hotspots and surrounding exonic regions were interrogated for DNA level point mutations and indels (fusions not assayed). AKT1, APC, ARID1A, DEN, BRAF, BRCA1, BRCA2, CDH1, CDKN2A, CTNNB1, EGFR, EPCAM, ERBB4, FBXW7, FGFR1, FGFR2, FGFR3, GNA11, GNAQ, GNAS, HRAS, IDH1, IDH2, KDR, KIT, KRAS, MEN1, MET, MLH1, MSH2, MSH6, NOTCH1, NRAS, PDGFRA, PIK3CA, PMS2, POLE, PTEN, PTPN11, RB1, RET, SMAD4, SMO, STK11, TERT, TP53, TSC1, TSC2, VHL Please see complete report in e-chart or EMR This addendum is added to incorporate an outside pathology consultation report. The case was examined at [facility] (#[id number]) and the following diagnosis was rendered. A. Left breast at 2 o?clock, core biopsy: Invasive ductal carcinoma, grade 2 (score: tubule 3, nuclear 2, mitotic 1), 1.1 cm in greatest length. B. Left breast at 1 o?clock, core biopsy: Invasive ductal carcinoma, grade 2 (score: tubule 3, nuclear 2, mitotic 1), 0.9 cm in greatest length. Please see complete above mentioned consultation report in EMR
== END | disposition home or self-care (01) ==
LOC: LABSPEC 14:02
PROVIDERS: PCP Nurse Practitioner Primary Care; Referring Provider Surgery; Visit Provider Surgery
DX: N64.9 Disorder of breast, unspecified (principal)
CPT/HCPCS: 88305; 88341; 88342

== ENCOUNTER → 2022-06-13 | Outpatient (CLI) | payer BC, SELFPAY ==
--- NOTE | 2022-06-13 | IMM_PTH ---
PATIENT: VALORIE RUSSELL LOC: [facility] U#:[id number] AGE/SX: 52/F ROOM: RE06/13/[address]: Dr. Elvin Wolfe MD : 1970 BED: DIS: 06/13/2022 SPEC #: [id number] RECD: 06/17/22 14:48 STATUS: JOANN REQ #: [id number] MIKI: 06/13/22 00:[address]: Elvin Wolfe DEPT: IMMUNOHISTOCHEMISTRY RECD BY: Sofia Joiner ENTERED: 06/17/22 14:50 SP TYPE: IMMUNO OTHR DR: Maida Kim, SOCIETY EDITOR-C Tissues: A - Left breast, NOS B - Left breast, NOS Procedures: CD31 (add) CD34 (add) MAMM (add) MS (add) FACTOR VIII (add) GATA3 (add) ER (initial) PHYSICIAN & INSTITUTION [place] [id number] SPECIMEN INFORMATION: Tissue Source: A ? Left breast tissue 3 o?clock, B - Left breast tissue 9 o?clock Clinical Info: Not noted Specimen Number: [id number] A & B CPT code: 64462 x2, 31422 x16 METHODOLOGY: Deparaffinized sections of prefer/formalin-fixed tissue or PAP/DQ stained slides are incubated with monoclonal/polyclonal antibodies/oligonucleotide probes. Localization is made via biotin free immunoperoxidase method. Appropriate controls are performed and reacted as expected. Results on target cell population are indicated in the following table: RESULTS: ANTIBODY / CLONE RESULT Block A ER (6F11) positive MS (1E2) negative Mammaglobin (31A5) positive, dim GATA3 (L50-823) positive AE1-3 (AE1/AE3/PCK26) positive CK8 (21epakH41) positive CD31 (ARASH/70A) positive Factor VIII (R Ag) positive CD34 (QBEnd-10) positive Block B ER (6F11) positive MS (1E2) positive Mammaglobin (31A5) positive, dim GATA3 (L50-823) positive AE1-3 (AE1/AE3/PCK26) positive CK8 (10arajP56) positive CD31 (ARASH/70A) positive Factor VIII (R Ag) positive CD34 (QBEnd-10) positive These tests were developed and their performance characteristics determined by [facility]. They may not have been cleared or approved by the U.S. Food and Drug Administration. The FDA has determined that such clearance or approval is not necessary. The above immunohistochemical/dualISH markers are ordered and reviewed by the Pathologist. INTERPRETATION: A. Left breast tissue 3 o?clock, biopsy: Angiolymphatic invasion by carcinoma. See comment. B. Left breast tissue 9 o?clock, biopsy: Angiolymphatic invasion by carcinoma. See comment. AM:nadir 06/18/2022 Comment: The IHC profile is consistent with breast primary. Case has been reviewed in consultation with Dr. Staley who concurs with the above diagnosis. IDC:SJ
--- NOTE | 2022-06-13 | LES_PTH ---
PATIENT: VALORIE RUSSELL LOC: [facility] U#:[id number] AGE/SX: 52/F ROOM: RE06/13/[address]: Dr. Elvin Wolfe MD : 1970 BED: DIS: 06/13/2022 SPEC #: [id number] RECD: 06/13/22 10:39 STATUS: JOANN RECate #: [id number] MIKI: 06/13/22 00:[address]: Elvin Wolfe DEPT: SURGICAL PATHOLOGY RECD BY: Ishmael Keller ENTERED: 06/14/22 10:39 SP TYPE: Lesion OTHR DR: Maida Kim, BULK PICKER-C Tissues: A - Skin of breast, NOS B - Skin of breast, NOS Procedures: Surgery Specimen Level IV HEADER OPERATION: Left breast punch biopsy PRE-OP DIAGNOSIS: TISSUE SUBMITTED: A ? Left breast tissue 3 o?clock, B - Left breast tissue 9 o?clock MICROSCOPIC DIAGNOSIS A. 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 See comment. B. 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 See comment. AM:nadir 06/17/2022 COMMENT A & B. Immunohistochemistry ([id number]) supports the above diagnosis and is consistent with breast primary. The lymphatics involved by the metastatic malignancy appear to be present in the superficial to mid dermis Clinical correlation is suggested. Case has been reviewed in consultation with Dr. Staley who concurs with the above diagnosis. IDC:SJ MICROSCOPIC DESCRIPTION Slides are reviewed. GROSS DESCRIPTION A - Received in fixative is one container labeled with the patient's name and designated left breast tissue 3 o'clock. The specimen consists of a punch biopsy of villarreal-brown skin measuring 0.3 cm in diameter and 0.3 cm in length. The entire specimen is submitted in one cassette. B - Received in fixative is one container labeled with the patient's name and designated left breast tissue 9 o'clock. The specimen consists of a punch biopsy of villarreal-light brown skin measuring 0.3 cm in diameter and 0.6 cm in length. The entire specimen is submitted in one cassette. / JESUS:nadir 06/14/2022 TC:0 CPT: 07618 x2
== END | disposition home or self-care (01) ==
LOC: LABSPEC 16:17
PROVIDERS: PCP Nurse Practitioner Primary Care; Referring Provider Surgery; Visit Provider Surgery
DX: R92.8 Other abnormal and inconclusive findings on diagnostic imaging of breast (principal)
CPT/HCPCS: 88305; 88341; 88342

== ENCOUNTER → 2022-06-14 | Outpatient (CLI) | payer BC, SELFPAY ==
--- NOTE | 2022-06-14 15:33 | MRI_ITS ---
STUDY: BILATERAL BREAST MR WITHOUT AND WITH CONTRAST REASON FOR EXAM: Female, 52 years old. Staging of breast cancer. TECHNIQUE: Multi-sequence multi-echo imaging of both breasts was performed with a dedicated breast coil. T1-weighted and T2-weighted images were performed before the administration of contrast. T1-weighted images were also performed after the intravenous administration of 21mL of CLARISCAN contrast. COMPARISON: Left breast ultrasound dated May 10, 2022 and screening mammogram dated May 07, 2022. FINDINGS: RIGHT BREAST: The breasts are heterogenously dense, which may obscure small masses. Minimal background enhancement. There are no abnormal enhancing masses or areas of non-mass enhancement in the right breast. LEFT BREAST: The breasts are heterogenously dense, which may obscure small masses . Minimal background enhancement. In the lateral aspect of the breast there is a large area of non-mass enhancement extending from anterior to posterior approximately 8 cm. The enhancement pattern extends from the upper outer quadrant to the lower outer quadrant with the most masslike area of enhancement in the region of the ultrasonographic abnormality at the 2:00 position approximately 10 cm from the nipple. The overall area of enhancement measures an area of shift 8.5 cm x 4.6 cm x 7.8 cm. Biopsy clip artifact in the upper outer aspect of the area of enhancement. 1 slightly enlarged left axillary lymph node measuring 2.1 cm in diameter. There is no abnormality in the visualized regions of the chest or liver. MRI/Breast Bilateral W/O and W IMPRESSION: Large area of non-mass enhancement measuring 8.5 cm x 4.6 cm x 7.8 cm extending from the lower outer quadrant to the upper outer quadrant with the most concentrated enhancement in the upper outer quadrant at the 2:00 position where there is a tissue clip artifact. Findings compatible with extensive DCIS involving both lateral quadrants of the breast. 1 slightly enlarged left axillary lymph node as described. CATEGORY: BIRADS Category 6: Known Biopsy-Proven Malignancy - Appropriate Action Should Be Taken. A letter regarding these results will be sent to the patient by the facility within 30 days. Electronically Signed: Kana Zavala, at 11:01 EST ,
== END | disposition home or self-care (01) ==
PROVIDERS: PCP Nurse Practitioner Primary Care; Visit Provider Internal Medicine Medical Oncology
DX: C50.919 Malignant neoplasm of unspecified site of unspecified female breast (principal); R59.0 Localized enlarged lymph nodes; R92.2 Inconclusive mammogram
CPT/HCPCS: 77049; A9575; A4216; C8908

== ENCOUNTER 2022-06-17 08:49 | Day surgery (SDC) | payer BC, SELFPAY ==
[2022-06-17] VITALS (9 sets, daily range): BP systolic 124–133; BP diastolic 65–80; PULSE 81–89; RESP 16–18; TEMP 36.4–37.2; O2SAT 93–98; BMI 36.0
[2022-06-17 09:12] LABS: Internal QC Validated? YES +Cl - CLEAR BKGD; Pregnancy, Urine Negative Negative
[2022-06-17] MEDS: Lactated Ringers 1,000 ML 15 ML IV (09:46)
--- NOTE | 2022-06-17 10:30 | HP.PCM_ITS ---
History and Physical Date of Admission: 06/17/22 Office Procedure Documentation entered by Hanny Sheth? 06/13/22 16:18: Procedure Time Out Time Out Informed consent given: Yes Consent signed: Yes Time out checklist: patient, procedure, site marked/identified, positioning of patient, supplies available, allergies confirmed and team agrees on procedure Time out staff in room: Yes Time out verified: Yes Time out date: 06/13/22 Time out time: 15:30 06/13/22 1618 <Electronically signed by Hanny Sheth > Date Hanny Sheth? cc: ? ~* Signed Intake Intake Visit Reasons:?PUNCH BIOPSY Chief Complaint: Referred for left breast cancer. Allergies No Known Allergies Allergy (Verified 06/12/22 15:19) PFSH Medical History?(Updated 06/13/22 @ 14:[address] Cristóbal Ford MD) Abnormal mammogram of right breast Abnormal mammogram of right breast Arthritis Arthritis Back problem Breast abscess Depression with anxiety Derange anterior horn medial meniscus right knee due to old injury Environmental allergies Headaches, cluster Sebaceous cyst of breast Segmental and somatic dysfunction of cervical region Segmental and somatic dysfunction of lumbar region Segmental and somatic dysfunction of thoracic region Surgical History?(Updated 06/12/22 @ 15:20 by Alyssa Maciel) No history of previous surgery S/P left breast biopsy Family History? Brother AsthmaSister AsthmaGrandfather Colon cancerMother DiabetesGrandmother CVA (cerebral vascular accident) Social History? household members:? spouse Smoking Status:? Never smoker alcohol intake:? current alcohol intake frequency: holidays/special occasions only substance use type:? does not use what type of physical activity do you participate in:? running, aerobics and weight training frequency:? 3-4 times per week HPI HPI HPI: The patient has been seen by Dr Ford.? A request has been made for skin biopsy.? The patient is scheduled for breast MRI and a PET/CT.? Request also has been made to push on with placement of a port. My previous notes reflect the following Visit Reasons:?L BREAST US BIOPSY Chief Complaint: left breast biopsy Allergies No Known Allergies Allergy (Verified 06/06/22 13:19) Medications alprazolam 1 mg tablet (Xanax) 1 mg PO BID-TID PRN 02/20/18 [History Confirmed 06/06/22] cholecalciferol (vitamin D3) 25 mcg (1,000 unit) capsule 1,000 unit PO DAILY 02/20/18 [History Confirmed 06/06/22] lactobacillus combination no.8 3 billion cell capsule (Adult Probiotic) 3,000 mmu cells PO DAILY 02/20/18 [History Confirmed 06/06/22] multivitamin 1 cap PO DAILY 02/20/18 [History Confirmed 06/06/22] simvastatin 20 mg tablet ea PO 10/22/21 [History Confirmed 06/06/22] methylprednisolone 4 mg tablets in a dose pack (Medrol (Tyrone)) 4 mg PO DAILY #21 tabs 01/17/22 [Rx Confirmed 06/06/22] amoxicillin 875 mg-potassium clavulanate 125 mg tablet 1 tab PO BID 05/24/22 [History Confirmed 06/06/22] doxycycline hyclate 100 mg capsule 100 mg PO DAILY 05/24/22 [History Confirmed 06/06/22] fluoxetine 20 mg capsule 20 mg PO DAILY 05/24/22 [History Confirmed 06/06/22] spironolactone 100 mg tablet 100 mg PO DAILY 05/24/22 [History Confirmed 06/06/22] PFSH Medical History? Abnormal mammogram of right breast Abnormal mammogram of right breast Arthritis Arthritis Back problem Breast abscess Depression with anxiety Derange anterior horn medial meniscus right knee due to old injury Environmental allergies Headaches, cluster Sebaceous cyst of breast Segmental and somatic dysfunction of cervical region Segmental and somatic dysfunction of lumbar region Segmental and somatic dysfunction of thoracic region Surgical History? No history of previous surgery Family History? Brother AsthmaSister AsthmaGrandfather Colon cancerMother DiabetesGrandmother CVA (cerebral vascular accident) Social History? household members:? spouse Smoking Status:? Never smoker alcohol intake:? current alcohol intake frequency: holidays/special occasions only substance use type:? does not use what type of physical activity do you participate in:? running, aerobics and weight training frequency:? 3-4 times per week HPI HPI HPI: 52-year-old female returns status post her most recent visit of May 27, 2022.? She had presented with a severe mastitis and had been treated with IV Rocephin and converted to oral amoxicillin.? I tried to exclude the possibility of 2 abscesses in the upper outer quadrant of her left breast.? Careful inspection is planned of the left breast 1:00 and 2:00 positions to see if the mammographic/ultrasonography items or core biopsy at this time under ultrasound guidance.? On May 24 I had attempted a fine-needle aspiration of 1 of these areas but cultures demonstrated no growth.? This was prior to the initiation of her antibiotics. The patient notes improvement in her left breast.? She states that the texture seems still off in the inner portion of the left breast.? The redness and tenderness markedly improved. My previous notes reflect the following Visit Reasons:?BIRADS 4 LEFT Chief Complaint: birads 4 left Is patient in pain?: Yes Allergies No Known Allergies Allergy (Verified 05/24/22 09:25) Medications alprazolam 1 mg tablet (Xanax) 1 mg PO BID-TID PRN 02/20/18 [History Confirmed 04/08/22] cholecalciferol (vitamin D3) 25 mcg (1,000 unit) capsule 1,000 unit PO DAILY 02/20/18 [History Confirmed 04/08/22] lactobacillus combination no.8 3 billion cell capsule (Adult Probiotic) 3,000 mmu cells PO DAILY 02/20/18 [History Confirmed 04/08/22] multivitamin 1 cap PO DAILY 02/20/18 [History Confirmed 04/08/22] simvastatin 20 mg tablet ea PO 10/22/21 [History Confirmed 04/08/22] methylprednisolone 4 mg tablets in a dose pack (Medrol (Tyrone)) 4 mg PO DAILY #21 tabs 01/17/22 [Rx Confirmed 04/08/22] amoxicillin 875 mg-potassium clavulanate 125 mg tablet 1 tab PO BID 05/24/22 [History Confirmed 05/24/22] doxycycline hyclate 100 mg capsule 100 mg PO DAILY 05/24/22 [History Confirmed 05/24/22] fluoxetine 20 mg capsule 20 mg PO DAILY 05/24/22 [History Confirmed 05/24/22] spironolactone 100 mg tablet 100 mg PO DAILY 05/24/22 [History Confirmed 05/24/22] PFSH Medical History?(Updated 05/24/22 @ 14:[address] Elvin Wolfe MD) Abnormal mammogram of right breast Abnormal mammogram of right breast Arthritis Arthritis Back problem Breast abscess Depression with anxiety Derange anterior horn medial meniscus right knee due to old injury Environmental allergies Headaches, cluster Sebaceous cyst of breast Segmental and somatic dysfunction of cervical region Segmental and somatic dysfunction of lumbar region Segmental and somatic dysfunction of thoracic region Surgical History? No history of previous surgery Family History? Brother AsthmaSister AsthmaGrandfather Colon cancerMother DiabetesGrandmother CVA (cerebral vascular accident) Social History? household members:? spouse Smoking Status:? Never smoker alcohol intake:? current alcohol intake frequency: holidays/special occasions only substance use type:? does not use what type of physical activity do you participate in:? running, aerobics and weight training frequency:? 3-4 times per week HPI HPI HPI: 52-year-old female returns for new evaluation regarding abnormal left mammogram and ultrasound.? Findings on mammogram suggest architectural distortion in the axillary region of the left breast with overlying skin thickening.The ultrasound suggested a 1.87 x 1.7 x 1.9 similar lobulated hypoechoic solid nodule 2 o'clock position +9 cm.? There appeared to be a similar irregular nodule left breast 1 o'clock position +7 cm which measures 1.3 x 1.2 x 1.6 cm.? BI-RADS Category 4.? Questioned whether possible infection. The patient presented to the emergency room last night because of chest pain overlying the medial aspect of the left breast.? She states that the entire breast was already becoming erythematous.? She presents to the office today complaining of significant global left breast pain and significant redness.? She has not had any nipple discharge or bleeding My previous notes reflect the following Patient was noted to have a density deep medial aspect of the right breast.? On February 27, 2018 I performed a stereotactic needle core biopsy of this area.? Final pathology showed fibrocystic change and focal intraductal hyperplasia without atypia.? There was no evidence of malignancy.? At the [facility] on September 08, 2018 a follow-up right unilateral mammogram was obtained.? This demonstrates a tissue marker seen within the nodular density at the site of the previous biopsy.? No new abnormality.? One-year follow-up mammogram recommended BI-RADS Category 2. ?Patient is a 52-year-old female.? A0.? Menarche at age 14.? First child was born when she was 23.? Previous stereotactic core right breast biopsy.? Not any estrogen replacement.? Family history is negative for breast cancer.? The patient has not had any change in her own self breast exam May 07, [address] Amor Cedillo MD on 05/08/22 at 0908 ADDENDUM This is an addendum report. Additional imaging was provided. Since prior study, there is evidence of? architectural distortion in the axillary region of the left breast.? There is evidence of overlying skin thickening of the left breast at this time.? Targeted ultrasound correlation of the upper-outer quadrant of the left breast is recommended. BIRADS category: 0 Electronically Signed: Amor Cedillo MD at 9:08 EST , Signed ADDENDUM by Dr. Amor Cdeillo MD on 05/08/22 at 0908 BI/SCRN MAMM (CAD)W/TORY BILAT IMPRESSION: undefined Signed MAMMOGRAPHY - BILATERAL SCREENING REASON FOR EXAM:? ? Female, 52 years old.? Routine annual screening examination. PERTINENT HISTORY:? Non-contributory.? History of prior right stereotactic breast biopsy. TECHNIQUE: ? Digital bilateral breast toyr (3D mammographic acquisition) in the CC and MLO projections. 2-D mediolateral oblique (MLO) and craniocaudad (CC) views of both breasts were obtained.? CAD: Full Field Digital Mammography with Computer Added Detection was performed. COMPARISON: ? Comparison is made with prior examination dated 04/19/2021 and 04/09/2019. FINDINGS: Breast Composition:? The breasts are heterogeneously dense, which may obscure small masses. There are no dominant masses or suspicious calcifications.? Once again, a tissue clip marker is seen in the deep upper slightly medial aspect of the right breast.? Stable small benign-appearing bilateral axillary lymph nodes. No other significant abnormalities are identified.? There has been no significant change since the prior study. BI/SCRN MAMM (CAD)W/TORY BILAT IMPRESSION: Stable bilateral screening mammogram.? Yearly follow-up mammogram recommended. ? (A) ? ? ASSESSMENT CATEGORY: BIRADS Category 2:? Benign.? A letter regarding these results will be sent to the patient by the facility within 30 days. ? Approximately 10% of breast cancers are not detected by mammography.? A normal mammogram should not delay biopsy of a clinically suspicious abnormality. ? [id number] ? Electronically Signed: Amor Cedillo MD at 8:26 EST Reading Location ID and State: [id number] / [place] May 10, 2022 STUDY: ? ULTRASOUND BREAST - LEFT REASON FOR EXAM: ? Female, 52 years old.? Abnormal screening mammogram. TECHNIQUE: ? Axial and longitudinal images of the LEFT breast were performed with a high resolution ultrasound transducer. # OF IMAGES:? 58 COMPARISON: ? Comparison is made with prior mammogram dated 05/07/2022. FINDINGS: LEFT Breast: The upper lateral aspect of the right breast was examined with ultrasound. There is a 1.87 x 1.7 cm x 1.9 cm lobulated hypoechoic solid nodule at the 2 o''clock position of the breast at 9 sinus from nipple.? A similar appearing irregular nodular density is seen at the 1 o''clock position of the breast at 7 cm from nipple.? This measures 1.3 cm x 1.2 cm x 1.6 cm. US/Breast Limited Unilateral IMPRESSION: There are 2 adjacent irregular hypoechoic solid nodules at the 1 o''clock and 2 o''clock position of the left breast as described.? Biopsy recommended. ? ASSESSMENT CATEGORY: BIRADS Category 4:? Suspicious - Biopsy Should Be Considered.? A letter regarding these results will be sent to the patient by the facility within 30 days. ? Electronically Signed: Amor Cedillo MD at 8:40 EST , , Service support? , ROS General General: Yes weight change and fatigue; No appetite, colon cancer, breast cancer or weakness HEENT HEENT: No difficulty swallowing, eye injury, eye surgery, swollen glands or hoarseness Endo Endocrine: No thyroid disease, diabetes mellitus, thyroid cancer, Hair loss, heat intolerance or cold intolerance Skin Skin: No rash or changing moles Breast Breast: Yes abnormal mammogram and abnormal US; No left breast lump, right breast lump, nipple discharge, breast pain or breast enlargement Musc Musculoskeletal: Yes back problems and arthritis; No rheumatoid arthritis, gout or joint pain Cardio Cardiovascular: No murmur, pacemaker, heart disease, atrial fibrillation, high blood pressure, heart attack, heart stent, palpitations, shortness of breat with exertion or chest pain Psych Psychiatric: Yes anxiety; No depression or hearing voices Resp Respiratory: No shortness of breath, No sleep apnea, No cough, No COPD, No asthma, No emphysema and No wheezing Gastro Gastrointestinal: No abdominal pain, No nausea or vomiting, No diarrhea, Yes constipation, No blood in stool, No acid reflux, No hemorrhoids, No ulcers, No gallbladder problem and No black,tarry stools Sahil Hematologic: No blood thinners, No blood disorders, No bleeding, No anemia and No blood clots Neuro Neurologic: No system reviewed and no additional complaints, except as documented, No as per HPI, No abnormal gait, No abnormal hearing, No abnormal movements, No abnormal speech, No behavioral changes, No burning sensations, No confusion, No convulsions, No disequilibrium, No dizziness, No localized weakness, No frequent falls, No headache(s), No lack of coordination, No loss of vision, No memory loss, No numbness, No other visual disturbances, No radicular pain, No restless legs, No sensory deficit, No syncope, No tingling, No tremor(s), No weakness and No other Exam Chest Other: Left breast: Markedly abnormal left breast with diffuse brilliant red erythema with blanching.? There is no peau d'orange there is no nipple discharge there is diffuse fibrous change in the upper outer quadrant of the left breast Office Procedures Biopsy Provider Documentation Ultrasound-guided fine needle aspiration upper outer quadrant left breast 2:00 +9 cm I we prepped the left breast with Betadine then did sterile ultrasound inspection the area in question 2:00 left breast 9 o'clock position was identified.? The preoperative films that suggested potential risk of infection.? The patient has a diffusely erythematous breast consistent with severe mastitis.? I instructed her that I would like to perform a ultrasound-guided final aspiration to see if breast abscess material could be identified and she concurred.? 1% lidocaine was used as a local anesthetic and ultrasound guidance 10 cc was used then I attempted placing a 20-gauge needle into the area of ultrasound concern did not find a focal firm mass could not get distinct fluid but I was able to aspirate a small amount of bloody fluid which was then smeared out on culture swabs.? She tolerated it well no apparent complication. Elvin Wolfe M.D., F.A.C.S. Biopsy Breast Biopsy: [id number] Breast Cyst Asp Assessment and Plan Assessment and Plan (1) Abnormal mammogram of left breast: ?Status:?Acute ?Plan: Copy:Maida Kim NP, JOSE-C Elvin Wolfe M.D., F.A.C.S. (2) Mastitis: ?Status:?Acute ?Plan: 52-year-old female with clinical findings felt to be consistent with acute severe left breast mastitis.? It is not clear whether the items on ultrasound represent small breast abscesses.? I did attempt an ultrasound-guided aspiration could not get any purulence.? She certainly has skin thickening but I believe this is due to infection.? She does not clinically have the appearance of diffuse cancer. We were able to arrange for her to go to the infusion center to get a gram of IV Rocephin.? We have prescribed her Augmentin 875 mg orally twice daily.? She is to notify us at any time if she worsens.? She could then require hospitalization for IV treatment of her mastitis.? At this point I do not believe that she requires emergency operation for abscess drainage as I could not get any purulence on fine-needle aspiration and the area in question is quite deeply placed and on pretty intervention ultrasound there were 2 different areas. She has had an opportunity ask and have questions answered.? We will make her a return visit after the weekend and just 3 days. Copy:LUIS Pulido M.D., F.A.C.S. ? ? ? Orders: Orders Culture, Deep Wound?? Today?? N61.1 - Abscess of the breast and nipple? Medications: New amoxicillin-pot clavulanate 875-125 mg?? 1 TAB? PO BID ROS General General: Yes weight change and fatigue; No appetite, colon cancer, breast cancer or weakness HEENT HEENT: No difficulty swallowing, eye injury, eye surgery, swollen glands or hoarseness Endo Endocrine: No thyroid disease, diabetes mellitus, thyroid cancer, Hair loss, heat intolerance or cold intolerance Skin Skin: No rash or changing moles Breast Breast: Yes abnormal mammogram and abnormal US; No left breast lump, right breast lump, nipple discharge, breast pain or breast enlargement Musc Musculoskeletal: Yes back problems and arthritis; No rheumatoid arthritis, gout or joint pain Cardio Cardiovascular: No murmur, pacemaker, heart disease, atrial fibrillation, high blood pressure, heart attack, heart stent, palpitations, shortness of breat with exertion or chest pain Psych Psychiatric: Yes anxiety; No depression or hearing voices Resp Respiratory: No shortness of breath, No sleep apnea, No cough, No COPD, No asthma, No emphysema and No wheezing Gastro Gastrointestinal: No abdominal pain, No nausea or vomiting, No diarrhea, Yes constipation, No blood in stool, No acid reflux, No hemorrhoids, No ulcers, No gallbladder problem and No black,tarry stools Sahil Hematologic: No blood thinners, No blood disorders, No bleeding, No anemia and No blood clots Neuro Neurologic: No system reviewed and no additional complaints, except as documented, No as per HPI, No abnormal gait, No abnormal hearing, No abnormal movements, No abnormal speech, No behavioral changes, No burning sensations, No confusion, No convulsions, No disequilibrium, No dizziness, No localized weakness, No frequent falls, No headache(s), No lack of coordination, No loss of vision, No memory loss, No numbness, No other visual disturbances, No radicular pain, No restless legs, No sensory deficit, No syncope, No tingling, No tremor(s), No weakness and No other Exam Chest Other: Left breast although improved still has some edema medially and some slight persistent skin thickening throughout.? Some slight nipple retraction. Office Procedures Biopsy Provider Documentation Ultrasound-guided needle core biopsy upper outer quadrant left breast 2 o'clock position +9 cm with a coil clip And upper outer quadrant left breast 1 o'clock position +7 cm with a ribbon clip Timeout and informed consent was obtained.? The patient was taken the procedure room placed with a left shoulder roll.? The upper outer quadrant left breast was prepped with Betadine.? Ultrasound was performed.? I saw the irregular density in the upper outer quadrant left breast 2 o'clock position +9 cm.? This was more cleanly seen than when she had an active infection of the breast.? I advised her on sampling it.? Under ultrasound guidance I injected 10 cc of 1% lidocaine.? Made a small stab incision.? Use a 14-gauge Monopty needle.? I was able to get to clean cores with 1 misfire.? I then placed a coil clip.? Pressure was held for hemostasis.? I then further inspected and identified what I thought was the lesion at 1 o'clock position +7 cm.? For additional diagnosis I thought was pertinent to sample this area as well.? In a similar fashion ultrasound guidance 1% lidocaine was instilled as a local anesthetic.? Again a total of 10 cc was used.? A small stab incision was created, 14-gauge Monopty needle was advanced 2 cores were obtained and a ribbon clip was left in place.? Pressure was held for hemostasis.? Steri-Strip Telfa OpSite dressings applied.? The specimens were immediately transferred to formalin. She tolerated procedure well.? No apparent complications.? She is scheduled return the office next week for review of pathology. Elvin Wolfe M.D., F.A.C.S. Biopsy Breast Biopsy: [id number] US Guidance (x2) Procedure Time Out Time Out Informed consent given: Yes Consent signed: Yes Time out checklist: patient, procedure, site marked/identified, positioning of patient, supplies available, allergies confirmed and team agrees on procedure Time out staff in room: Yes Time out verified: Yes Time out date: 06/06/22 Time out time: 12:40 Assessment and Plan Assessment and Plan (1) Abnormal mammogram of left breast: ?Status:?Acute ?Plan: Abnormal mammogram of the left breast with 2 areas of concern in the upper outer quadrant left breast.? Her diffuse cellulitis mastitis appears significantly improved but she still has abnormal texture to her breast particularly medially.? There appears to possibly some nipple retraction on clinical exam there is diffuse fibrous fullness in the upper outer quadrant.? When I performed ultrasound inspection I was able to identify what I thought were the 2 lesions of preoperative concern at the 1:00 and 2:00 positions.? As noted above I performed ultrasound-guided core biopsies of each of these areas.? That proceeded without complication the patient tolerated it well. We will have the patient return to my office next week to review pathology. Copy:Maida Kim NP-C Elvin Wolfe M.D., F.A.C.S Office Procedures Miscellaneous Procedure Procedure Performed By: Procedure performed by: Elvin Wolfe Details Procedure note Left breast skin punch biopsies x2 locations one at 3 o'clock position and one at 9 o'clock position Timeout informed consent was obtained.? Patient taken procedure room placed upon the table the medial lateral aspect of the left breast prepped with Betadine 1% lidocaine mixed 50-50 with 0.5% Marcaine used as local anesthetic.? A 3 mm punch biopsy was performed at each site specimen submitted individually for analysis and to formalin.? Hemostasis was obtained with simple sutures of 4-0 nylon.? The medial site had some venous bleeding that required additional pressure.? All hemostasis was intact.? Telfa OpSite dressings applied.? Tolerated procedure well no apparent complication.? She will return the office in 1 week's time for planned suture removal. Elvin Wolfe M.D., F.A.C.S. 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 Has a vague mass of 10cm in the L breast. Redness of the breast has improved with Antibiotics. She is also wearing a tight bra which may contribute to redness of the breast.? She is a candidate for Neoadjuvant therapy with chemotherapy and Monoclonal Antibodies against Her2. ?Plan: The patient has biopsy-proven invasive ductal carcinoma upper outer quadrant left breast with a large extent of clinical mass-effect.? Clinical impression regarding the breast changes consistent with inflammatory breast cancer.? 2 sites have been punch biopsied of the skin today. A request has been made to pursue placement of a port and I prescribed the patient a right internal jugular approach. We have been instructed that she is tentatively on the schedule for tomorrow afternoon to get a bilateral breast MRI.? We will therefore schedule for port placement on Friday. Dr Ford has also scheduled the patient for a PET/CT. She will then be ready to initiate chemotherapy treatment at earliest convenience. Elvin Wolfe M.D., [place]. I have examined the patient and the H&P has been reviewed. There are no clinical changes since date of exam. Elvin Wolfe M.D., [email or web address].
--- NOTE | 2022-06-17 10:31 | EX.PCM.DISCH ---
Discharge Instructions Procedure Port-A-Cath Diet Discharge Diet: No restrictions (Pain medication may cause nausea. You should typically eat light foods as you take your pain medication.) Activity Discharge Activity: Return to Normal Activity and May Shower (Leave the bandage on for 2-3 days. When you remove the bandage, leave the steri-strips intact until they fall off.) Additional Activity Instructions:: May not drive, work with heavy equipment, or sign legal documents for [address]. [address] if you are no longer taking narcotic pain medications. You may drive when you are no longer taking pain medications. Dressing / Incision Additional Dressing/Incision Instructions:: Leave the bandage on for 2-3 days. When you remove the bandage, leave the steri-strips intact until they fall off. Follow Up Care Test Results: Test results from this visit will be discussed in further detail at your follow-up appointment, if applicable. Discharge Plan Admission Attending Provider: Elvin Wolfe Primary Care Provider: Maida Kim NP Consulting Providers: Cristóbal Ford Discharge Orders/Prescriptions Prescriptions: No Action alprazolam [Xanax] 1 mg tablet 1 mg PO BID-TID PRN (Reason: Anxiety) cholecalciferol (vitamin D3) 1,000 unit capsule 1,000 unit PO DAILY multivitamin capsule capsule 1 cap PO DAILY lactobacillus combination no.8 [Adult Probiotic] 3 billion cell capsule 3,000 mmu cells PO DAILY simvastatin 20 mg tablet 20 mg PO QHS Label Comments: TAKE 1 TABLET BY MOUTH AT BEDTIME benzonatate [Tessalon Perles] 100 mg Capsule 100 mg PO BID PRN (Reason: Cough) [place] DM 7.5-7.5 mg/5 mL Liquid 20 ml PO Q8H Referrals / Follow Up: Maida Kim NP, [employer]-C [Primary Care Provider] - Disposition Disposition (needs filled in before D/C Order can be placed): Home, Self Care
[2022-06-17] MEDS: Cefazolin 2 GM in 0.9% Normal Saline 100 ML IV (11:15)
[2022-06-17] MEDS: Bupivacaine Mpf 0.5% 30 ML VIAL (11:48)
[2022-06-17] MEDS: Lidocaine 1% (30 ml sdv) 30 ML Vial (11:48)
--- NOTE | 2022-06-17 11:48 | OP.PCM_ITS ---
Report of Operation Date of Procedure: 06/17/22 Pre-Operative Diagnosis: Upper outer quadrant left breast cancer Post-Operative Diagnosis: Upper outer quadrant left breast cancer Surgery/Procedure Performed:: Right internal jugular 6 [place]bourgish portacatheter placement reference [id number], reference [id number], expiry date 03/08/2023 Description of Surgical Findings:: Timeout informed consent was obtained. 52-year-old female was taken to the oper ating placed on table underwent monitored anesthesia care Ancef 2 g were given intravenously the right neck and chest were sterilely prepped and draped 1% lidocaine mixed 50-50 with 0.5% Marcaine was used as a local anesthetic a total of 17 cc was used under ultrasound guidance local was instilled then a micropuncture needle inserted UNDER ultrasound guidance into the right internal jugular vein Seldinger wire placement was performed local was instilled down upon the right chest wall a transverse incision was created. Electrocautery was used to assist with making a subcutaneous pocket. Tubing was tunneled from the neck to the chest. Micropuncture sheath was placed 035 J-wire was placed fluoroscopy demonstrated good position. The sheath dilator was inserted over the wire the wire and dilator removed the catheter was Ramirez to the sheath the sheath was split the catheter was positioned using fluoroscopy at the SVC atrial junction it was amputated length connected the port secured with a port attachment device port was placed in the pocket secured there with 2-0 silk the port site was closed with interrupted 3-0 Vicryl subdermal stitches Next close #5-0 Vicryl Steri-Strips Telfa OpSite dressings applied sponge and needle counts and were reported to be correct Specimens none. Drains none. Blood loss minimal. The patient was taken to the recovery area in satisfied condition no apparent complication. Stat portable chest x-ray is pending. Elvin Wolfe M.D., F.A.C.S. Surgeon: Elvin Wolfe Type of Anesthesia: Local MAC Anesthesiologist: Mei Pierre
--- NOTE | 2022-06-17 12:03 | RAD_ITS ---
STUDY: X-RAY CHEST REASON FOR EXAM: Female, 52 years old. Port placement TECHNIQUE: Single AP portable view of the chest. COMPARISON: None. FINDINGS: A right subclavian port is in place, tip is in the distal SVC. No pneumothorax or mediastinal shift. The lungs are clear and expanded. There is no demonstrated pleural abnormality. Normal size heart. Normal mediastinum and safia. Normal visualized pulmonary arteries. Normal visualized aortic arch and descending thoracic aorta. Normal visualized thoracic spine. Normal visualized ribs, clavicles, and shoulders. There is no demonstrated abnormality of the visualized soft tissue structures of the upper abdomen. RAD/Chest 1 View (Portable) IMPRESSION: No acute pulmonary process Right subclavian port tip in the distal SVC Electronically Signed: Martin Huitron MD at 12:32 EST ,
[2022-06-17] MEDS: HYDROcodone Bitartrate/Apap 5/325 Tablet PO (12:58)
== END 2022-06-17 14:09 | disposition home or self-care (01) ==
LOC: SDC 08:55 → AC 08:58
PROVIDERS: Anesthesiology; PCP Nurse Practitioner Primary Care; Referring Provider Surgery; Visit Provider Surgery
PROC: (CPT 36561; principal; 2022-06-17 10:25)
DX: C50.412 Malignant neoplasm of upper-outer quadrant of left female breast (principal); N61.0 Mastitis without abscess; Z79.899 Other long term (current) drug therapy
CPT/HCPCS: 36561; 00532; 71045; 77001; 81025; J7120

== ENCOUNTER → 2022-06-17 | Outpatient (CLI) | payer BC, SELFPAY ==
--- NOTE | 2022-06-17 19:02 | CT_ITS ---
STUDY: CT CHEST, ABDOMEN T PELVIS WITH CONTRAST REASON FOR EXAM: Female, 52 years old. INITIAL STAGING FOR BREAST CANCER RADIATION DOSAGE (If Supplied By Facility): CTDIvol = ( 21.75 ) mGy, DLP = ( 2344.92 ) mGycm TECHNIQUE: Transaxial imaging was performed following intravenous administration of IV 100mL Isovue-370. Individualized dose optimization techniques were used for this CT. COMPARISON: No relevant priors. FINDINGS: CHEST A right-sided osman catheter seen with tip in the superior vena cava. There is evidence of diffuse skin thickening overlying the left breast with heterogeneous probable glandular tissue and mass lesions in the outer aspect of the left breast. Small right pleural effusion with increased markings at the right lung base suggestive of basilar atelectasis. There is a 1.2 cm x 1.3 cm pleural-based nodular density in the lateral posterior aspect of the right lower lobe. This may represent either pulmonary nodule versus a focal atelectasis. Follow-up is recommended. Normal heart and pericardium. Normal mediastinum. Normal hilar regions. Normal unenhanced pulmonary arteries. Normal aorta arch and descending thoracic aorta. There are degenerative changes of the thoracic spine. Small hiatal hernia. ABDOMEN Normal liver. Normal gallbladder and extrahepatic biliary system. Normal spleen. Normal pancreas. Normal bilateral adrenal glands. Normal right kidney. 8 mm cyst in the posterior lateral aspect of the left kidney. There is a small hiatal hernia. Normal small intestine. Normal colon. The appendix is visualized and appears normal. Normal abdominal aorta. Normal inferior vena cava. Normal retroperitoneum. Small bilateral inguinal hernias containing fat slightly more prominent on the left side. There are mild degenerative changes of the visualized lumbar spine. Stable minimal anterolisthesis of L4 on L5. Several sclerotic changes involving the L3 and L4 vertebrae. Similar appearance seen in the left posterior iliac bone. Correlation with the bone scan is recommended. PELVIS Normal urinary bladder. Findings suggestive of a fibroid uterus. Normal visualized pelvic arteries. CT/CT Chest, Abd, Pel w/Contrast IMPRESSION: Abnormalities in the left breast as described in keeping with the patient''s history of left breast carcinoma. Small right pleural effusion with right basilar atelectasis. 1.2 cm x 1.3 cm pleural-based nodular density in the lateral posterior aspect of the right lower lobe. This may represent either a pulmonary nodule versus localized atelectasis. Follow-up is recommended. Subtle areas of increased bone density involving the L3-L4 vertebrae as well as the posterior aspect of the left iliac bone. Correlation with ultrasound is recommended. Electronically Signed: Amor Cedillo MD at 10:12 EST ,
== END | disposition home or self-care (01) ==
PROVIDERS: PCP Nurse Practitioner Primary Care; Referring Provider Internal Medicine Medical Oncology; Visit Provider Internal Medicine Medical Oncology
DX: K44.9 Diaphragmatic hernia without obstruction or gangrene (principal); C50.919 Malignant neoplasm of unspecified site of unspecified female breast; M43.16 Spondylolisthesis, lumbar region; K40.20 Bilateral inguinal hernia, without obstruction or gangrene, not specified as recurrent; R91.1 Solitary pulmonary nodule; N28.1 Cyst of kidney, acquired; N63.20 Unspecified lump in the left breast, unspecified quadrant; J98.11 Atelectasis; J90 Pleural effusion, not elsewhere classified
CPT/HCPCS: 71260; 74177; Q9967

== ENCOUNTER → 2022-06-18 | Outpatient (CLI) | payer BC, SELFPAY ==
--- NOTE | 2022-06-18 | IMM_PTH ---
PATIENT: VALORIE RUSSELL LOC: [facility] U#:[id number] AGE/SX: 52/F ROOM: RE06/18/[address]: Dr. Cristóbal Ford MD : 1970 BED: DIS: 06/18/2022 SPEC #: [id number] RECD: 06/20/22 14:12 STATUS: JOANN REQ #: [id number] MIKI: 06/18/22 00:[address]: Cristóbal Ford DEPT: IMMUNOHISTOCHEMISTRY RECD BY: Sofia Joiner ENTERED: 06/20/22 14:15 SP TYPE: IMMUNO OTHR DR: Maida Kim, COMBAT INFORMATION CENTER OFFICER-C Tissues: Lymph node, NOS Procedures: RCC (add) NAPSIN A (add) CA-125 (add) Mau Ret (add) CD45 (add) CEA (add) CK20 (add) CK5-6 (add) CK7 (add) CK8 (add) TONY-2 (add) E-CAD (add) HEP PAR (add) KI-67 (add) P53 (add) NV (add) TTF1 (add) Vimentin (add) 34BE12 (add) Pankeratin (add) P40 (add) CDX2 (add) ER (initial) S-100 (add) PHYSICIAN & [place] [id number] SPECIMEN INFORMATION: Tissue Source: Left lymph node tissue Clinical Info: Enlarged lymph node Specimen Number: [id number] CPT code: 30936, 37171 x23 METHODOLOGY: Deparaffinized sections of prefer/formalin-fixed tissue or PAP/DQ stained slides are incubated with monoclonal/polyclonal antibodies/oligonucleotide probes. Localization is made via biotin free immunoperoxidase method. Appropriate controls are performed and reacted as expected. Results on target cell population are indicated in the following table: RESULTS: ANTIBODY / CLONE RESULT ER (6F11) 90%, weak to moderate intensity NV (1E2) 70%, weak to moderate intensity AE1-3 (AE1/AE3/PCK26) positive CK7 (OV-TL12/30) positive CK8 (74codbR49) positive CK20 (KS20.8) negative TONY-2 (SP21) positive CDX2 (EMM1592L) negative CD45 (RP2/18) negative Vimentin (V9) negative 34BE12 (34BE12) positive S-100 (4C4.9) negative TTF-1 (8G7G3/1) negative Napsin A (Rabbit Polyclonal) negative HepPar (OCh1E5) negative RCC (PN-15) negative CALRET (polyclonal) negative CK5-6 (D5 & 1684) negative P40 (BC28) negative CEA (11-7/TF-3HB-1) positive CA125 (OC125) positive, rare cells P53 (DO-7) negative Ki-67 (30-9) positive, ~20% E-Cad (ECH-6) positive These tests were developed and their performance characteristics determined by [facility]. They may not have been cleared or approved by the U.S. Food and Drug Administration. The FDA has determined that such clearance or approval is not necessary. The above immunohistochemical/dualISH markers are ordered by Dr. Yousif and reviewed by the Pathologist. INTERPRETATION: Left lymph node tissue, biopsy: Metastatic carcinoma, consistent with breast primary. SJ:nadir 06/24/2022
--- NOTE | 2022-06-18 12:20 | LYMN_PTH ---
PATIENT: VALORIE RUSSELL LOC: [facility] U#:[id number] AGE/SX: 52/F ROOM: RE06/18/[address]: Dr. Cristóbal Ford MD : 1970 BED: DIS: 06/18/2022 SPEC #: [id number] RECD: 06/18/22 14:16 STATUS: JOANN MORA #: [id number] MIKI: 06/18/22 12:[address]: Cristóbal Ford DEPT: SURGICAL PATHOLOGY RECD BY: Shanna Zhang ENTERED: 06/19/22 07:42 SP TYPE: LYMPH NODE OTHR DR: Maida Kim, KNIFE GRINDER-C [facility] Tissues: LYMPH NODE BIOPSY Procedures: Surgery Specimen Level IV HEADER OPERATION: Left lymph node biopsy PRE-OP DIAGNOSIS: Enlarged lymph node TISSUE SUBMITTED: Left lymph node tissue MICROSCOPIC DIAGNOSIS Left lymph node, needle core biopsy: Metastatic carcinoma. See comment. AM:nadir 06/20/2022 COMMENT The specimen is evaluated at the time of touch imprints by Dr. Staley. Immediate Evaluation = Malignant cells present derived from metastatic carcinoma. Case has been reviewed in consultation with Dr. Yousif who concurs with the above diagnosis. IDC:AM The metastatic carcinoma is consistent with breast primary. Immunohistochemistry ([id number]) supports the above diagnosis. Please make reference to previous specimens ([id number]) left breast at 2 o?clock and left breast at 1 o?clock with diagnosis of ?invasive ductal carcinoma? 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 Case has been reviewed in consultation with Dr. Staley who concurs with the above diagnosis. IDC:SJ MICROSCOPIC DESCRIPTION Slides are reviewed. GROSS DESCRIPTION Received in saline is one container labeled with the patient's name and designated left lymph node biopsy. The specimen consists of three elongated cores of villarreal-white soft tissue measuring in aggregate 1 x 0.3 x 0.1 cm. Two touch imprints are prepared. The entire specimen is submitted in one cassette. / JESUS:nadir 06/19/2022 TC:0 CPT: 01991, 12926
--- NOTE | 2022-06-18 13:37 | ECHODONC_ITS ---
Reason For Study: Malignant neoplasm of unspecified site, pre-antineoplastic chemo Procedure This was a 2D Doppler, Color Flow transthoracic echocardiogram. Myocardial strain analysis was performed in this exam to aid in the assessment of cardiac function. The study was technically difficult. Due to body habitus. Exam performed in department. Left Ventricle Normal LV size. Left ventricular systolic function is normal. The estimated ejection fraction is 65 %. The global longitudinal strain = -21 % (normal). No evidence for diastolic dysfunction. No regional wall motion abnormalities noted. Right Ventricle Normal RV size. Normal systolic function. Atria Normal left atrium. Normal right atrium. No doppler evidence for ASD. Mitral Valve There is no mitral annular calcification. Normal mitral valve. Trivial mitral valve insufficiency. Tricuspid Valve Normal tricuspid valve. Trivial tricuspid valve insufficiency. Unable to estimate RV systolic pressure due to insufficient tricuspid regurgitant envelope. Aortic Valve Trisinus/trileaflet aortic valve. Normal aortic valve. Pulmonic Valve The pulmonic valve is not well visualized. Trivial eccentric pulmonic valve insufficiency. Great Vessels Normal sized aortic root. Pericardium/Pleural No pericardial effusion. MMode/2D Measurements & Calculations LVIDd: 5.5 cm IVSd: 1.1 cm Ao root diam: 3.5 cm LVIDs: 2.9 cm LVPWd: 1.1 cm RVDd: 3.8 cm FS: 46.9 % LAV(MOD-bp): 43.4 ml LA A4 area: 16.2 cm2 LA dimension(2D): 3.9 cm LAV(MOD-bp) Indexed: 20.0 ml/m2 LAV(MOD-sp2): 43.4 ml LAV(MOD-sp4): 41.5 ml RA A4 area: 15.9 cm2 Time Measurements MV dec time: 0.19 sec Doppler Measurements & Calculations MV E max rasheed: 71.6 cm/sec Lat Peak E' Rasheed: 10.9 cm/sec Med Peak E' Rasheed: 9.0 cm/sec MV A max rasheed: 49.6 cm/sec E/E' lat: 6.6 E/E' med: 8.0 MV E/A: 1.4 MV dec slope: 389.1 cm/sec2 Ao V2 max: 120.2 cm/sec LV V1 max: 105.6 cm/sec Ao max P.8 mmHg LV V1 max P.5 mmHg Ao V2 mean: 79.4 cm/sec LV V1 mean P.2 mmHg Ao mean P.9 mmHg LV V1 mean: 67.8 cm/sec Ao V2 VTI: 26.4 cm LV V1 VTI: 24.0 cm AV (velocity ratio): 0.91 PA V2 max: 101.6 cm/sec ECHO/ONC Echo Complete Interpretation Summary The study was technically difficult. Left ventricular systolic function is normal. The estimated ejection fraction is 65 %. The global longitudinal strain = -21 % (normal). Trivial mitral valve insufficiency. Trivial tricuspid valve insufficiency. Trivial eccentric pulmonic valve insufficiency. Unable to estimate RV systolic pressure due to insufficient tricuspid regurgita nt envelope. No evidence for diastolic dysfunction. Ordering Physician: Cristóbal Ford Referring Physician: Maida Kim Performed By: Nicolle Obrien RDCS, RVT
== END | disposition home or self-care (01) ==
PROVIDERS: PCP Nurse Practitioner Primary Care; Visit Provider Internal Medicine Medical Oncology
DX: Z51.11 Encounter for antineoplastic chemotherapy (principal); C50.919 Malignant neoplasm of unspecified site of unspecified female breast; R59.9 Enlarged lymph nodes, unspecified
CPT/HCPCS: 88305; 88341; 88342; 93306; 93356

== ENCOUNTER → 2022-06-21 | Outpatient (CLI) | payer BC, SELFPAY ==
--- NOTE | 2022-06-21 08:32 | NM_ITS ---
CLINICAL: 52-year-old female with history of primary breast carcinoma. WHOLE BODY 99m Tc MDP RADIONUCLIDE BONE SCINTIGRAPHY COMPARISON: FDG PET/CT study dated 06/19/2022. FINDINGS: Following the intravenous administration of 26.5 mCi of 99m Tc MDP, whole body bone images reveal: 1. Increased radiopharmaceutical concentration is defined in the bilateral anterior and posterior ribs, the left frontal calvarium, the left posterior ilium, the left acetabulum, the left proximal mid femoral diaphysis. 2. Facilitated uptake is noted in the bilateral knee articulations, the right wrist, both hands, the acromioclavicular and sternoclavicular compartments of both shoulders, the right-left ankle articulations, the upper-mid cervical spine. 3. The remaining skeletal structures are scintigraphically unremarkable with normal-appearing renal images and urinary bladder activity identified. NM/Bone Scan Whole Body IMPRESSION: 1. The increase in radiopharmaceutical concentration defined in the left frontal skull, the axial and appendicular skeletal structures is commensurate with skeletal metastatic disease which appears to correlate with findings noted on FDG PET CT dated 06/19/2022. 2. Degenerative arthritis is defined in the bilateral knees, the right wrist, hands bilaterally, both shoulder articulations, the right-left ankles, cervical spine. Electronically Signed: Rafa Shah, at 11:42 EST ,
== END | disposition home or self-care (01) ==
PROVIDERS: PCP Nurse Practitioner Primary Care; Visit Provider Internal Medicine Medical Oncology
DX: M17.0 Bilateral primary osteoarthritis of knee (principal); C50.919 Malignant neoplasm of unspecified site of unspecified female breast
CPT/HCPCS: 78306; A9503

== ENCOUNTER → 2022-07-10 | Outpatient (CLI) | payer BC, SELFPAY ==
--- NOTE | 2022-07-10 06:31 | MRI_ITS ---
STUDY: MRI BRAIN WITH AND WITHOUT CONTRAST REASON FOR EXAM: Female, 52 years old. breast cancer staging; left skull lesion, F/U TO pet TECHNIQUE: Standardized multiplanar fat and water weighted pulse sequences were obtained. IV Yes Clariscan was administered for the contrast portion of the examination. COMPARISON: PET/CT scan dated June 19, 2022. Nuclear medicine bone scan dated June 21, 2022. Brain MRI dated November 22, 2016. FINDINGS: Normal size of the ventricles and extra-axial spaces for the patient''s age. Normal white matter tracts of the supratentorial brain. There is no evidence for recent intracranial ischemia or other cause of cytotoxic edema on diffusion weighted imaging (DWI). Normal T2* images of the brain without demonstrated susceptibility artifact. There is no demonstrated hemosiderin stain. There are no focal brain parenchymal lesions or abnormal enhancement on the current study. There is no demonstrated abnormal thickening or enhancement of meninges or dura on the current study. A small arachnoid granulation is present at the apex/most superior and posterior aspect of the left parietal lobe and overlying bone see image #130/148 series 12. Redemonstration of a 1.29 cm lobular intramedullary lesion of the left side of frontal bone, best seen on image 23/30 series 11 which is a postcontrast sequence, which shows avid enhancement compared to the surrounding bony structures. The lesion is unchanged in size and characteristics since the November 22, 2016 study and is favored to represent focal fibrous dysplasia or an intramedullary epidermoid or arachnoid granulation lesion rather than a focus of metastatic disease. The lesion is faintly seen on the nonfat suppressed postcontrast sequences on image 35/97 series 1201 14/148 series 12. The remaining aspects of the skull are within normal limits with no visualized additional primary or metastatic lesions. Normal bilateral basal ganglia. Normal thalami. There is no extra-axial fluid accumulation. Normal flow voids within the major intracranial circulation suggesting patency by spin echo criteria. Normal venous enhancement. There is no enhancing intra-axial or extra-axial abnormality. Normal sella turcica, pituitary gland, infundibular stalk, optic chiasm and hypothalamus. Normal tectal plate and pineal gland. Normal midbrain, mena and medulla. Normal cerebellum. Normal basal cisterns. Normal bilateral temporal bones. Normal bilateral internal auditory canals. No demonstrated orbital abnormality, within the constraints of a routine brain study. Normal visualized paranasal sinuses. Normal visualized soft tissue structures. Normal visualized upper cervical spine. MRI/Brain W/WO Contrast IMPRESSION: 1. Normal unenhanced and enhanced MRI of the brain. 2. There are no focal brain parenchymal lesions or abnormal enhancement on the current study. There is no demonstrated abnormal thickening or enhancement of meninges or dura on the current study. 3. Redemonstration of a 1.29 cm lobular intramedullary lesion of the left side of frontal bone, best seen on image 23/30 series 11 which is a postcontrast sequence, which shows avid enhancement compared to the surrounding bony structures. The lesion is unchanged in size and characteristics since the November 22, 2016 study and is favored to represent focal fibrous dysplasia or an intramedullary epidermoid or arachnoid granulation lesion rather than a focus of metastatic disease. The lesion does not extend into the brain parenchyma or overlying dura. 4. The lesion is faintly seen on the nonfat suppressed postcontrast sequences on image 35/97 series 1201 14/148 series 12. The remaining aspects of the skull are within normal limits with no visualized additional primary or metastatic lesions. Electronically Signed: Ike Easley MD at 9:40 EST Reading Location ID and State: [facility] / [place] , Service support ,
[2022-07-10] MEDS: 0.9% Saline Lock 10 ML Syringe IV (07:25)
== END | disposition home or self-care (01) ==
PROVIDERS: PCP Nurse Practitioner Primary Care; Referring Provider Nurse Practitioner Family; Visit Provider Nurse Practitioner Family
DX: C50.919 Malignant neoplasm of unspecified site of unspecified female breast (principal); M89.9 Disorder of bone, unspecified
CPT/HCPCS: 70553; A9575; A4216

== ENCOUNTER 2022-08-01 15:26 | Outpatient (CLI) | payer BC, SELFPAY ==
--- NOTE | 2022-08-01 15:28 | VDUE_ITS ---
Reason For Study: swelling Right Proximal Left Proximal Right jugular vein is spontaneous, widely Left jugular vein is spontaneous, widely patent, phasic, with no intraluminal patent, phasic, with no intraluminal echogenicity noted. echogenicity noted. Right subclavian vein is spontaneous, widely Left subclavian vein is spontaneous, widely patent, phasic, with no intraluminal patent, phasic, with no intraluminal echogenicity noted. echogenicity noted. Right Lower Arm Left Arm Right radial vein is compressible. Left axillary vein is spontaneous, patent, Right ulnar vein is compressible. phasic, competent, compressible and Right Arm demonstrates augmentation. Right axillary vein is spontaneous, patent, Left brachial vein is compressible. phasic, competent, compressible and Left cephalic vein is compressible. demonstrates augmentation. Left basilic vein is compressible. Right brachial vein is compressible. Left Lower Arm Right cephalic vein is compressible. Left radial vein is compressible. Right basilic vein is compressible. Left ulnar vein is compressible. Prelim faxed to Genna Zuniga. VL/Venous Duplex US - Wilfrido Extrem Interpretation Summary No evidence for acute deep venous thrombosis bilateral upper extremities with p atent and compressible bilateral cephalic and basilic veins Ordering Physician: Genna Zuniga Referring Physician: Cristóbal Ford Performed By: Bert Balderas RVT ???
== END 2022-08-01 23:59 | disposition home or self-care (01) ==
LOC: CVS 15:27
PROVIDERS: PCP Nurse Practitioner Primary Care; Referring Provider Internal Medicine Medical Oncology; Visit Provider Internal Medicine Medical Oncology
DX: R22.1 Localized swelling, mass and lump, neck (principal); C50.812 Malignant neoplasm of overlapping sites of left female breast
CPT/HCPCS: 36591; 80053; 85025; 93970; A4216

== ENCOUNTER → 2022-08-08 | Outpatient (CLI) | payer BC, SELFPAY ==
--- NOTE | 2022-08-08 16:30 | RAD_ITS ---
EXAM: XR CHEST, 2 VIEWS CLINICAL INDICATION: port placement TECHNIQUE: Frontal and lateral views of the chest. This report was created using [employer] report generation technology. COMPARISON: XR Chest dated 06/17/2022 FINDINGS: LUNGS AND PLEURAL SPACES: Hyperinflation suggesting emphysema. No pneumothorax. No effusion. HEART: Normal heart size. MEDIASTINUM: No mediastinal or hilar mass. BONES/JOINTS: No acute abnormality. SOFT TISSUES: Normal. TUBES, LINES AND DEVICES: Right IJ infusion catheter extends to the cavoatrial junction. RAD/Chest PA and Lateral IMPRESSION: Satisfactory central line placement. Pulmonary hyperinflation. Electronically Signed: Artem Arriaga MD at 16:54 EST ,
== END | disposition home or self-care (01) ==
LOC: RAD 16:28
PROVIDERS: PCP Nurse Practitioner Primary Care; Visit Provider Nurse Practitioner Family
DX: Z95.828 Presence of other vascular implants and grafts (principal)
CPT/HCPCS: 71046

== ENCOUNTER → 2022-08-22 | Outpatient (CLI) | payer BC, SELFPAY ==
--- NOTE | 2022-08-22 08:09 | CT_ITS ---
STUDY: CT CHEST, ABDOMEN T PELVIS WITH CONTRAST REASON FOR EXAM: Female, 52 years old. Breast cancer, restaging RADIATION DOSAGE (If Supplied By Facility): CTDIvol = ( 14.26 ) mGy, DLP = ( 1480.29 ) mGycm TECHNIQUE: Transaxial imaging was performed following intravenous administration of IV 100mL Isovue-370. Individualized dose optimization techniques were used for this CT. COMPARISON: 06/17/2022 FINDINGS: CHEST Lungs are expanded with chronic interstitial changes, but no superimposed infiltrate, effusion, or suspicious noncalcified mass or nodule. Previously noted nodular density in the lateral posterior right lower lobe not seen on current study. Normal-appearing thyroid gland. Normal heart and pericardium. No calcified coronary vessels. No suspicious axillary, mediastinal, or perihilar mass or adenopathy. . Normal unenhanced pulmonary arteries. Normal aorta arch and descending thoracic aorta. There are multi-level degenerative changes of the thoracic spine. There is skin thickening in the left breast likely sequela from therapy ABDOMEN Normal liver. Normal gallbladder and extrahepatic biliary system. Normal spleen. Normal pancreas. Normal bilateral adrenal glands. No obstructive uropathy or suspicious solid renal lesion, stable simple 8 mm cysts in the posterior left kidney There is a small hiatal hernia. Normal small intestine. Normal colon. There is non-visualization of the appendix. Normal abdominal aorta. Normal inferior vena cava. Normal retroperitoneum. Small fat-containing inguinal hernias noted. Stable sclerotic lesions in L3 and L4. Previously noted sclerotic in the left iliac have increased in number and size since the previous study, there also now pain sclerotic nodules noted in the right iliac and right sacrum. A bone scan from 06/21/2022 demonstrated that these are likely metastasis. PELVIS Normal urinary bladder. Uterus is present, the endometrium cannot be accurately evaluated with CT. There is no pelvic fluid. There is no pelvic lymphadenopathy or mass lesion. Normal visualized pelvic arteries. CT/CT Chest, Abd, Pel w/Contrast IMPRESSION: Persistent suspicious sclerotic lesions in L3-L4 and within the pelvis consistent with metastasis. A bone scan from 06/21/2022 showed also bony metastasis elsewhere. Chronic interstitial changes in both lung hennessy without a superimposed acute pulmonary process or suspicious noncalcified mass or nodule No suspicious axillary, mediastinal, and perihilar adenopathy No suspicious solid organ abnormality, stable simple renal cysts, no specific follow-up needed. Overall, no significant interval change since 06/27/2022 Electronically Signed: Martin Huitron MD at 9:33 EDT ,
== END | disposition home or self-care (01) ==
LOC: CT 08:06
PROVIDERS: PCP Nurse Practitioner Primary Care; Visit Provider Nurse Practitioner Family
DX: C50.919 Malignant neoplasm of unspecified site of unspecified female breast (principal); C79.51 Secondary malignant neoplasm of bone
CPT/HCPCS: 71260; 74177; Q9967; A4216

== ENCOUNTER → 2022-10-29 | Outpatient (CLI) | payer BC, SELFPAY ==
--- NOTE | 2022-10-29 10:21 | RAD_ITS ---
STUDY: X-RAY CHEST REASON FOR EXAM: Female, 52 years old. Fever and cough TECHNIQUE: PA and lateral views of the chest. COMPARISON: 08/08/2022 FINDINGS: Stable appearance of a right subclavian port. The lungs are clear and expanded. There is no demonstrated pleural abnormality. Normal size heart. Normal mediastinum and safia. Normal visualized pulmonary arteries. Normal visualized aortic arch and descending thoracic aorta. Normal visualized thoracic spine. Normal visualized ribs, clavicles, and shoulders. There is no demonstrated abnormality of the visualized soft tissue structures of the upper abdomen. RAD/Chest PA and Lateral IMPRESSION: No acute pulmonary process, no interval change Electronically Signed: Martin Huitron MD at 10:33 EDT ,
--- NOTE | 2022-10-29 10:21 | ECHODONC_ITS ---
Reason For Study: Edema Procedure This was a 2D Doppler, Color Flow transthoracic echocardiogram. Myocardial strain analysis was performed in this exam to aid in the assessment of cardiac function. Exam performed in department. Left Ventricle Normal LV size. Left ventricular systolic function is normal. The estimated ejection fraction is 60 %. No regional wall motion abnormalities noted. Right Ventricle Normal RV size. Normal systolic function. Atria Normal left atrium. Normal right atrium. Tricuspid Valve Normal tricuspid valve. Aortic Valve Normal aortic valve. Trisinus/trileaflet aortic valve. Pulmonic Valve Normal pulmonic valve. Great Vessels Normal aortic root. The pulmonary artery is normal size. Normal inferior vena cava. Pericardium/Pleural Epicardial fat. MMode/2D Measurements & Calculations LVIDd: 5.0 cm IVSd: 1.1 cm LA dimension: 3.5 cm LVIDs: 3.2 cm LVPWd: 0.72 cm RVDd: 3.1 cm FS: 36.6 % LAV(MOD-bp): 46.6 ml LVAd ap4: 25.2 cm2 SV(MOD-sp4): 43.7 ml LAV(MOD-bp) Indexed: 21.5 ml/m2 LVLd ap4: 7.1 cm LAV(MOD-sp2): 36.8 ml EDV(MOD-sp4): 75.4 ml LAV(MOD-sp4): 46.2 ml EDV(sp4-el): 75.3 ml LVAs ap4: 15.1 cm2 LVLs ap4: 6.3 cm ESV(MOD-sp4): 31.7 ml ESV(sp4-el): 30.6 ml EF(MOD-sp4): 57.9 % EF(sp4-el): 59.3 % SV(sp4-el): 44.7 ml LA A4 area: 17.9 cm2 RA A4 area: 13.9 cm2 Time Measurements MV dec time: 0.22 sec Doppler Measurements & Calculations MV E max rasheed: 68.1 cm/sec Lat Peak E' Rasheed: 7.4 cm/sec Med Peak E' Rasheed: 8.6 cm/sec MV A max rasheed: 63.7 cm/sec E/E' lat: 9.2 E/E' med: 7.9 MV E/A: 1.1 MV V2 max: 70.0 cm/sec MV P1/2t max rasheed: 71.5 cm/sec Ao V2 max: 126.3 cm/sec MV max P.0 mmHg MV P1/2t: 64.6 msec Ao max P.4 mmHg MV V2 mean: 43.6 cm/sec MV dec slope: 324.3 cm/sec2 Ao V2 mean: 94.8 cm/sec MV mean P.89 mmHg Ao mean P.0 mmHg MV V2 VTI: 17.1 cm MVA(P1/2t): 3.4 cm2 Ao V2 VTI: 25.5 cm AV (velocity ratio): 0.91 LV V1 max: 113.1 cm/sec PA V2 max: 86.9 cm/sec LV V1 max P.1 mmHg LV V1 mean P.8 mmHg LV V1 mean: 77.1 cm/sec LV V1 VTI: 23.3 cm ECHO/ONC Echo Complete Interpretation Summary Normal LV size. Left ventricular systolic function is normal. The estimated ejection fraction is 60 %. The global longitudinal strain is normal. The global longitudinal strain = -18. 5 % (normal). The global longitudinal strain has worsened. Ordering Physician: Cristóbal Ford Referring Physician: Cristóbal Ford Performed By: Seamus Carson RCS
== END | disposition home or self-care (01) ==
LOC: CVS 10:17
PROVIDERS: PCP Nurse Practitioner Primary Care; Referring Provider Internal Medicine Medical Oncology; Visit Provider Internal Medicine Medical Oncology
DX: C50.412 Malignant neoplasm of upper-outer quadrant of left female breast (principal); Z17.0 Estrogen receptor positive status [ER+]; Z51.12 Encounter for antineoplastic immunotherapy; R05.9 Cough, unspecified; R60.0 Localized edema
CPT/HCPCS: 71046; 93306; 93356

== ENCOUNTER → 2022-10-31 | Outpatient (CLI) | payer BC, SELFPAY ==
--- NOTE | 2022-10-31 13:52 | VDLE_ITS ---
Reason For Study: Bilateral Leg Swelling RIGHT LEFT GSV is normal. GSV is normal. CFV is compressible, spontaneous, phasic, CFV is compressible, spontaneous, phasic, competent and demonstrates normal competent, and demonstrates normal augmentation. augmentation. FV is compressible, spontaneous, phasic, FV is compressible, spontaneous, phasic, competent and demonstrates normal competent and demonstrates normal augmentation. augmentation. POP V is compressible, spontaneous, phasic, POP V is compressible, spontaneous, phasic, competent and demonstrates normal competent and demonstrates normal augmentation. augmentation. T/P Trunk is compressible. T/P Trunk is compressible. PTV is compressible. PTV is compressible. RT PerV is compressible. LT PerV is compressible. Procedure Anechoic non vascularized structure noted in This is a venous duplex using B-mode, color the Lt popliteal fossa measuring flow and spectral Doppler. approximately 7.10cm x 1.53cm. Exam performed in department. The exam was diagnostic. A preliminary report was called and/or faxed to Dr. Ford's office. VL/Venous Duplex US - Wilfrido Extrem Interpretation Summary Deep veins of the bilateral lower extremities are patent and compressible segme ntally. There is no evidence of bilateral lower extremity deep vein thrombosis. The bilateral great saphenous veins appear patent and compressible segmentally. Anechoic non vascularized structure noted in the left popliteal fossa measuring approximately 7.10cm x 1.53cm. Ordering Physician: Cristóbal Ford Referring Physician: Maida Kim Performed By: Misael Abebe, RVT
== END | disposition home or self-care (01) ==
LOC: CVS 13:51
PROVIDERS: PCP Nurse Practitioner Primary Care; Referring Provider Internal Medicine Medical Oncology; Visit Provider Internal Medicine Medical Oncology
DX: M79.89 Other specified soft tissue disorders (principal)
CPT/HCPCS: 93970

== ENCOUNTER → 2022-12-05 | Outpatient (CLI) | payer BC, SELFPAY ==
--- NOTE | 2022-12-05 07:54 | NM_ITS ---
CLINICAL: 52-year-old female with history of primary breast carcinoma metastatic bone. WHOLE BODY 99m Tc MDP RADIONUCLIDE BONE SCINTIGRAPHY COMPARISON: Prior whole body bone scintigraphy study dated 06/21/2022. FINDINGS: Following the intravenous administration of 26.9 mCi of 99m Tc MDP, whole body bone images reveal: 1. Increased radiopharmaceutical concentration remains apparent in the right scapula, left frontal calvarium. 2. Enhanced uptake is visualized in the acromioclavicular and sternoclavicular compartments of both shoulders, the mid cervical spine posteriorly on the left and right, the fifth lumbar vertebra and sacrum posteriorly on the left and right, the bilateral knees, right-left mid and forefoot. 3. The remaining skeletal structures are scintigraphically unremarkable with normal-appearing renal images and urinary bladder activity identified. There is interim resolution of the prior defined left and right acetabular, bilateral upper posterior ribs, the left sacroiliac joint, fourth lumbar vertebra, the right posterior 12th rib. NM/Bone Scan Whole Body IMPRESSION: 1. The increase in radiopharmaceutical concentration redefined in the left frontal calvarium and right scapula remain consistent with osteoblastic turnover attributed to skeletal metastatic disease. 2. There is interim resolution of the prior defined abnormalities noted in the bilateral acetabular, right-left upper posterior ribs, left sacroiliac joint, the right posterior 12th ribs and lumbar vertebra. 3. Degenerative arthrosis remains expressed in the bilateral shoulders, cervical and lumbar spine and sacrum, the bilateral knees, the right-left mid and forefoot. 4. Overall compared to the previous whole body bone scintigraphy study dated 06/21/2022, persistent uptake noted in the left frontal calvarium and right scapula remain consistent with blastic skeletal metastatic disease. There is interim resolution of multiple additional skeletal foci previously described. Electronically Signed: Rafa Shah, at 17:23 EDT ,
[2022-12-05] MEDS: 0.9 % NaCl (Sterile) Posiflush 10 mL IV (08:08)
== END | disposition home or self-care (01) ==
PROVIDERS: PCP Nurse Practitioner Primary Care; Referring Provider Internal Medicine Medical Oncology; Visit Provider Internal Medicine Medical Oncology
DX: C50.412 Malignant neoplasm of upper-outer quadrant of left female breast (principal); C79.51 Secondary malignant neoplasm of bone; Z17.0 Estrogen receptor positive status [ER+]
CPT/HCPCS: 78306; A9503; A4216

== ENCOUNTER → 2023-01-24 | Outpatient (CLI) | payer BC, SELFPAY ==
--- NOTE | 2023-01-24 10:52 | ECHODONC_ITS ---
Reason For Study: CHEMO Procedure This was a 2D Doppler, Color Flow transthoracic echocardiogram. Myocardial strain analysis was performed in this exam to aid in the assessment of cardiac function. Exam performed in department. Left Ventricle Normal LV size. Left ventricular systolic function is normal. The estimated ejection fraction is 60 %. Normal diastology for age. The global longitudinal strain = -18.4 % (normal). The prior global longitudinal strain was -18.5 % . The 3D full volume ejection fraction is 57 %. No regional wall motion abnormalities noted. Right Ventricle Normal RV size. Normal systolic function. Atria Normal left atrium. Normal right atrium. Mitral Valve The mitral valve is structurally normal. No prolapse or stenosis seen. Trivial mitral valve insufficiency. Tricuspid Valve Normal tricuspid valve. Trivial tricuspid valve insufficiency. Unable to estimate RV systolic pressure due to insufficient tricuspid regurgitant envelope. Aortic Valve Trisinus/trileaflet aortic valve. Pulmonic Valve Normal pulmonic valve. Trivial pulmonic valve insufficiency. Great Vessels Normal aortic root. Pericardium/Pleural No pericardial effusion. MMode/2D Measurements & Calculations LVIDd: 4.7 cm IVSd: 1.2 cm Ao root diam: 3.3 cm LVIDs: 3.1 cm LVPWd: 1.4 cm FS: 34.7 % LAV(MOD-bp): 45.4 ml LVAd ap4: 29.5 cm2 SV(MOD-sp4): 50.5 ml LAV(MOD-bp) Indexed: 21.2 ml/m2 LVLd ap4: 7.9 cm LAV(MOD-sp2): 51.8 ml EDV(MOD-sp4): 90.6 ml LAV(MOD-sp4): 37.3 ml EDV(sp4-el): 92.8 ml LVAs ap4: 17.0 cm2 LVLs ap4: 6.6 cm ESV(MOD-sp4): 40.1 ml ESV(sp4-el): 37.1 ml EF(MOD-sp4): 55.8 % EF(sp4-el): 60.1 % SV(sp4-el): 55.8 ml LA A4 area: 15.6 cm2 LA dimension(2D): 3.6 cm RA A4 area: 16.4 cm2 Time Measurements MV dec time: 0.23 sec Doppler Measurements & Calculations MV E max rasheed: 78.4 cm/sec Lat Peak E' Rasheed: 11.9 cm/sec Med Peak E' Rasheed: 9.0 cm/sec MV A max rasheed: 46.8 cm/sec E/E' lat: 6.6 E/E' med: 8.7 MV E/A: 1.7 MV V2 max: 81.0 cm/sec Ao V2 max: 146.1 cm/sec MV max P.6 mmHg MV dec slope: 379.3 cm/sec2 Ao max P.5 mmHg MV V2 mean: 54.8 cm/sec Ao V2 mean: 105.7 cm/sec MV mean P.3 mmHg Ao mean P.0 mmHg MV V2 VTI: 29.5 cm Ao V2 VTI: 32.5 cm AV (velocity ratio): 0.83 LV V1 max: 123.9 cm/sec PA V2 max: 113.6 cm/sec LV V1 max P.2 mmHg PA V2 mean: 73.8 cm/sec LV V1 mean P.2 mmHg LV V1 mean: 83.1 cm/sec LV V1 VTI: 27.0 cm ECHO/ONC Echo Complete Interpretation Summary The estimated ejection fraction is 60 %. The global longitudinal strain = -18.4 % (normal). Trivial mitral valve insufficiency. Compared to prior study, there is no significant change. Ordering Physician: Genna Zuniga Referring Physician: Genna Zuniga Performed By: Hafsa Crews RCS
== END | disposition home or self-care (01) ==
LOC: CVS 10:51
PROVIDERS: PCP Nurse Practitioner Primary Care; Referring Provider Nurse Practitioner Family; Visit Provider Nurse Practitioner Family
DX: Z79.899 Other long term (current) drug therapy (principal); C50.919 Malignant neoplasm of unspecified site of unspecified female breast; Z51.81 Encounter for therapeutic drug level monitoring; Z17.0 Estrogen receptor positive status [ER+]
CPT/HCPCS: 93306; 93356

== ENCOUNTER → 2023-03-27 | Outpatient (CLI) | payer BC, SELFPAY ==
--- NOTE | 2023-03-27 12:49 | CT_ITS ---
EXAM: CT CHEST, ABDOMEN AND PELVIS WITH INTRAVENOUS CONTRAST CLINICAL INDICATION: met breast ca; assess response to treatment TECHNIQUE: Helically acquired images were obtained of the chest, abdomen and pelvis with intravenous contrast. This CT exam was performed using one or more of the following dose reduction techniques: automated exposure control, adjustment of the mA and/or kV according to patient size, and/or use of iterative reconstruction technique. CONTRAST: Oral and amp; IV Readi-CAT and amp; 100mL Isovue-300 COMPARISON: 08/22/2022. FINDINGS: CHEST: LUNGS AND PLEURAL SPACES: Unremarkable. No mass. No consolidation or edema. No pleural effusion or thickening. No pneumothorax. HEART: Unremarkable. Heart size is normal. No pericardial effusion. MEDIASTINUM: Unremarkable. No mediastinal or hilar adenopathy. Esophagus is unremarkable. No hiatal hernia. THYROID: Unremarkable. No thyroid lesions. ABDOMEN: LIVER: Diffuse fatty infiltration of the liver. No focal lesion. GALLBLADDER AND BILE DUCTS: Unremarkable. No calcified gallstones. No gallbladder distention or wall edema. No intra- or extrahepatic biliary ductal dilation. PANCREAS: Unremarkable. No focal cystic or solid mass. SPLEEN: Unremarkable. Normal size without focal cystic or solid mass. ADRENALS: Unremarkable. No nodules. KIDNEYS AND URETERS: Subcentimeter low-attenuation lesions in the left kidney, too small to characterize. No hydronephrosis. STOMACH AND BOWEL: Unremarkable. No stomach or bowel distention. No focal inflammatory change. PELVIS: APPENDIX: No evidence of acute appendicitis. BLADDER: Unremarkable. REPRODUCTIVE: Unremarkable as visualized. No mass. CHEST, ABDOMEN and PELVIS: INTRAPERITONEAL SPACE: Unremarkable. No ascites or other fluid collection. No free air. BONES/JOINTS: Multiple sclerotic lesions in the thoracolumbar spine and pelvis consistent with metastases. No significant change compared to the prior study. Chronic right rib fracture. SOFT TISSUES: Unremarkable. No discrete abdominal or pelvic wall hernia. VASCULATURE: Unremarkable. Aorta is non-dilated. No aortic dissection. No obvious central pulmonary embolism although this study was not performed with the pulmonary embolism protocol. LYMPH NODES: Unremarkable. No enlarged lymph nodes. CT/CT Chest, Abd, Pel w/Contrast IMPRESSION: 1. Bone metastases, without significant change. 2. Hepatic steatosis. Electronically Signed: Lyric Blanco MD at 20:30 EDT Reading Location ID and State: [id number] / Tel , Service support ,
[2023-03-27] MEDS: 0.9% Saline Lock 10 ML Syringe IV (13:30)
== END | disposition home or self-care (01) ==
LOC: CT 12:49
PROVIDERS: PCP Nurse Practitioner Primary Care; Referring Provider Nurse Practitioner Family; Visit Provider Nurse Practitioner Family
DX: C50.919 Malignant neoplasm of unspecified site of unspecified female breast (principal)
CPT/HCPCS: 71260; 74177; Q9967; A4216

== ENCOUNTER → 2023-04-29 | Outpatient (CLI) | payer BC, SELFPAY ==
--- NOTE | 2023-04-29 13:49 | ECHOLONC_ITS ---
Reason For Study: high risk meds Procedure This was a limited 2D transthoracic echocardiogram. Myocardial strain analysis was performed in this exam to aid in the assessment of cardiac function. The study was technically difficult. Due to body habitus. Exam performed in department. Left Ventricle Normal LV size. Left ventricular systolic function is normal. The estimated ejection fraction is 55 %. No regional wall motion abnormalities noted. Right Ventricle Normal right ventricle. Normal systolic function. Atria Normal left atrium. Normal right atrium. Mitral Valve Normal mitral valve. Tricuspid Valve Normal tricuspid valve. Aortic Valve Normal aortic valve. Trisinus/trileaflet aortic valve. Pulmonic Valve Normal pulmonic valve. Great Vessels Normal aortic root. The pulmonary artery is normal size. Normal inferior vena cava. Pericardium/Pleural No pericardial effusion. MMode/2D Measurements & Calculations LVIDd: 5.2 cm IVSd: 1.0 cm Ao root diam: 3.2 cm LVIDs: 3.7 cm LVPWd: 1.00 cm RVDd: 3.6 cm FS: 28.7 % LAV(MOD-bp): 47.8 ml LVAd ap4: 27.4 cm2 LVAd ap2: 25.9 cm2 LAV(MOD-bp) Indexed: 22.7 ml/m2 LVLd ap4: 7.7 cm LVLd ap2: 8.4 cm LAV(MOD-sp2): 46.8 ml EDV(MOD-sp4): 82.5 ml EDV(MOD-sp2): 69.7 ml LAV(MOD-sp4): 46.9 ml EDV(sp4-el): 82.8 ml EDV(sp2-el): 67.8 ml LVAs ap4: 16.6 cm2 LVAs ap2: 14.0 cm2 LVLs ap4: 6.9 cm LVLs ap2: 6.3 cm ESV(MOD-sp4): 35.7 ml ESV(MOD-sp2): 29.7 ml ESV(sp4-el): 33.7 ml ESV(sp2-el): 26.5 ml EF(MOD-sp4): 56.7 % EF(MOD-sp2): 57.4 % EF(sp4-el): 59.3 % SV(MOD-sp4): 46.8 ml SV(MOD-sp2): 40.0 ml SV(sp4-el): 49.1 ml LA dimension(2D): 3.8 cm LA A4 area: 16.9 cm2 RA A4 area: 14.4 cm2 ECHO/ONC Echo, Limited Study Interpretation Summary Normal LV size. Left ventricular systolic function is normal. The estimated ejection fraction is 55 %. The global longitudinal strain is normal. The global longitudinal strain = -18. 4 % (normal). Ordering Physician: Cristóbal Ford Referring Physician: Maida Kim Performed By: Nicolle Obrien RDCS, RVT
== END | disposition home or self-care (01) ==
LOC: CVS 13:48
PROVIDERS: PCP Nurse Practitioner Primary Care; Referring Provider Internal Medicine Medical Oncology; Visit Provider Internal Medicine Medical Oncology
DX: C50.919 Malignant neoplasm of unspecified site of unspecified female breast (principal); Z51.81 Encounter for therapeutic drug level monitoring; Z79.899 Other long term (current) drug therapy
CPT/HCPCS: 93308; 93356

== ENCOUNTER → 2023-08-14 | Outpatient (CLI) | payer BC, SELFPAY ==
--- NOTE | 2023-08-14 12:57 | ECHODONC_ITS ---
Reason For Study: Drug Level Monitoring Procedure This was a 2D Doppler, Color Flow transthoracic echocardiogram. Myocardial strain analysis was performed in this exam to aid in the assessment of cardiac function. Exam performed in department. Left Ventricle Normal LV size. Left ventricular systolic function is normal. The estimated ejection fraction is 60 %. No regional wall motion abnormalities noted. Right Ventricle Normal RV size. Normal systolic function. Atria Normal left atrium. Normal right atrium. Mitral Valve Normal mitral valve. Tricuspid Valve Normal tricuspid valve. Aortic Valve Trisinus/trileaflet aortic valve. Pulmonic Valve Normal pulmonic valve. Great Vessels Normal aortic root. The pulmonary artery is normal size. Normal inferior vena cava. Pericardium/Pleural No pericardial effusion. MMode/2D Measurements & Calculations LVIDd: 4.8 cm IVSd: 1.2 cm Ao root diam: 3.4 cm LVIDs: 3.3 cm LVPWd: 1.1 cm LA dimension: 3.5 cm RVDd: 3.2 cm FS: 30.8 % LAV(MOD-bp): 41.5 ml LVAd ap4: 23.1 cm2 SV(MOD-sp4): 39.1 ml LAV(MOD-bp) Indexed: 19.7 ml/m2 LVLd ap4: 7.4 cm LAV(MOD-sp2): 47.9 ml EDV(MOD-sp4): 63.3 ml LAV(MOD-sp4): 35.9 ml EDV(sp4-el): 61.7 ml LVAs ap4: 13.2 cm2 LVLs ap4: 6.3 cm ESV(MOD-sp4): 24.2 ml ESV(sp4-el): 23.5 ml EF(MOD-sp4): 61.8 % EF(sp4-el): 62.0 % SV(sp4-el): 38.3 ml LA A4 area: 14.6 cm2 RA A4 area: 13.3 cm2 TAPSE: 2.0 cm Time Measurements MV dec time: 0.23 sec Doppler Measurements & Calculations MV E max rasheed: 63.0 cm/sec Lat Peak E' Rasheed: 9.6 cm/sec Med Peak E' Rasheed: 8.2 cm/sec MV A max rasheed: 56.0 cm/sec E/E' lat: 6.6 E/E' med: 7.7 MV E/A: 1.1 MV V2 max: 68.9 cm/sec MV P1/2t max rasheed: 69.4 cm/sec Ao V2 max: 110.4 cm/sec MV max P.9 mmHg MV P1/2t: 64.3 msec Ao max P.9 mmHg MV V2 mean: 40.6 cm/sec MV dec slope: 316.1 cm/sec2 Ao V2 mean: 82.2 cm/sec MV mean P.77 mmHg Ao mean P.0 mmHg MV V2 VTI: 19.3 cm MVA(P1/2t): 3.4 cm2 Ao V2 VTI: 21.6 cm AV (velocity ratio): 1.1 LV V1 max: 108.9 cm/sec PA V2 max: 116.5 cm/sec LV V1 max P.7 mmHg PA V2 mean: 83.8 cm/sec LV V1 mean P.5 mmHg LV V1 mean: 74.4 cm/sec LV V1 VTI: 24.4 cm ECHO/ONC Echo Complete Interpretation Summary Normal LV size. Left ventricular systolic function is normal. The estimated ejection fraction is 60 %. Structurally normal valves. The global longitudinal strain is normal. The globa l longitudinal strain = -17.2 % (normal). Ordering Physician: Jesus Varma Referring Physician: Maida Kim Performed By: Seamus Carson RCS
== END | disposition home or self-care (01) ==
LOC: CVS 12:56
PROVIDERS: PCP Nurse Practitioner Primary Care; Referring Provider Internal Medicine Cardiovascular Disease; Visit Provider Internal Medicine Cardiovascular Disease
DX: I34.0 Nonrheumatic mitral (valve) insufficiency (principal)
CPT/HCPCS: 93306; 93356

== ENCOUNTER → 2023-11-13 | Outpatient (CLI) | payer BC, SELFPAY ==
--- NOTE | 2023-11-13 15:08 | VDUE_ITS ---
Reason For Study: LUE Swelling Right Proximal Left Proximal Right subclavian vein is spontaneous, widely Left jugular vein is spontaneous, widely patent, phasic, with no intraluminal patent, phasic, with no intraluminal echogenicity noted. echogenicity noted. Left subclavian vein is spontaneous, widely patent, phasic, with no intraluminal echogenicity noted. Left Arm Left axillary vein is spontaneous, patent, phasic, competent, compressible and demonstrates augmentation. Left brachial vein is compressible. Left cephalic vein is compressible. Left basilic vein is compressible. Left Lower Arm Left radial vein is compressible. Left ulnar vein is compressible. Patient Safety LUE Venous Doppler study with B-Mode, Color and Pulsed Wave Doppler. Preliminary results delivered to [facility] / Genna Zuniga. VL/Venous Duplex US, Unilateral Interpretation Summary Deep veins of the left upper extremity are patent and compressible segmentally. There is no evidence of deep vein thrombosis. Superficial veins of the left upper extremity are patent and compressible segme ntally. There is no evidence of superficial vein thrombosis. Ordering Physician: Genna Zuniga Referring Physician: Maida Kim Performed By: Misael Abebe RVT and Student ???
== END | disposition home or self-care (01) ==
LOC: CVS 15:06
PROVIDERS: PCP Nurse Practitioner Primary Care; Referring Provider Nurse Practitioner Family; Visit Provider Nurse Practitioner Family
DX: M79.89 Other specified soft tissue disorders (principal)
CPT/HCPCS: 93971

== ENCOUNTER → 2023-11-19 | Outpatient (CLI) | payer BC, SELFPAY ==
--- NOTE | 2023-11-19 06:58 | ECHODONC_ITS ---
Reason For Study: Therapeutic drug level monitoring Procedure This was a 2D Doppler, Color Flow transthoracic echocardiogram. Myocardial strain analysis was performed in this exam to aid in the assessment of cardiac function. Exam performed in department. Left Ventricle Normal LV size. Left ventricular systolic function is normal. The left ventricular ejection fraction is 60 %. No regional wall motion abnormalities noted. Right Ventricle Normal RV size. Normal systolic function. Atria Normal left atrium. Normal right atrium. Mitral Valve Normal mitral valve. Tricuspid Valve Normal tricuspid valve. Aortic Valve Trisinus/trileaflet aortic valve. Pulmonic Valve Normal pulmonic valve. Great Vessels Normal aortic root. The pulmonary artery is normal size. Normal inferior vena cava. Pericardium/Pleural No pericardial effusion. MMode/2D Measurements & Calculations LVIDd: 5.5 cm IVSd: 1.1 cm Ao root diam: 3.4 cm LVIDs: 3.4 cm LVPWd: 1.00 cm RVDd: 3.5 cm FS: 39.0 % LAV(MOD-bp): 54.4 ml LVAd ap4: 31.4 cm2 SV(MOD-sp4): 61.1 ml LAV(MOD-bp) Indexed: 25.6 ml/m2 LVLd ap4: 7.8 cm LAV(MOD-sp2): 50.0 ml EDV(MOD-sp4): 109.4 ml LAV(MOD-sp4): 53.5 ml EDV(sp4-el): 107.6 ml LVAs ap4: 19.1 cm2 LVLs ap4: 6.7 cm ESV(MOD-sp4): 48.3 ml ESV(sp4-el): 46.6 ml EF(MOD-sp4): 55.8 % EF(sp4-el): 56.7 % SV(sp4-el): 61.0 ml LA A4 area: 17.9 cm2 LA dimension(2D): 3.8 cm RA A4 area: 16.3 cm2 TAPSE: 2.3 cm Time Measurements MV dec time: 0.23 sec Doppler Measurements & Calculations MV E max rasheed: 46.6 cm/sec Lat Peak E' Rasheed: 9.4 cm/sec Med Peak E' Rasheed: 10.5 cm/sec MV A max rasheed: 44.5 cm/sec E/E' lat: 5.0 E/E' med: 4.4 MV E/A: 1.0 MV V2 max: 83.4 cm/sec Ao V2 max: 120.3 cm/sec MV max P.8 mmHg MV dec slope: 204.8 cm/sec2 Ao max P.8 mmHg MV V2 mean: 52.9 cm/sec Ao V2 mean: 83.6 cm/sec MV mean P.3 mmHg Ao mean P.2 mmHg MV V2 VTI: 20.9 cm Ao V2 VTI: 25.6 cm AV (velocity ratio): 0.88 LV V1 max: 112.5 cm/sec PA V2 max: 114.9 cm/sec TR max rasheed: 255.9 cm/sec LV V1 max P.1 mmHg PA V2 mean: 80.5 cm/sec TR max P.2 mmHg LV V1 mean P.7 mmHg LV V1 mean: 78.3 cm/sec LV V1 VTI: 22.6 cm ECHO/ONC Echo Complete Interpretation Summary Normal LV size. Left ventricular systolic function is normal. The left ventricular ejection fraction is 60 %. Normal tricuspid valve. Compared to the previous the GLS is mildly worse. The global longitudinal strai n is mildly abnormal. The global longitudinal strain = -16.4% (abnormal). Ordering Physician: Genna Zuniga Referring Physician: Maida Kim Performed By: Nicolle Obrien, [place], RVT
--- NOTE | 2023-11-19 08:10 | RAD_ITS ---
STUDY: X-RAY - RIGHT KNEE REASON FOR EXAM: Female, 53 years old. Pain TECHNIQUE: 4 view(s) of the knee. COMPARISON: Comparison is made with prior study January 17, 2022. FINDINGS: Degenerative spur formation of the distal medial femoral condyle. Normal visualized proximal tibia and fibula. Normal proximal tibiofibular articulation. There is severe degenerative arthrosis of the medial femorotibial compartment with severe joint space narrowing. There is mild degenerative arthrosis of the lateral femorotibial compartment. There is moderate degenerative arthrosis of the patellofemoral articulation. Small joint effusion. RAD/Knee 4 or More Views IMPRESSION: Degenerative arthrosis. Small joint effusion. Electronically Signed: Amor Cedillo MD at 15:43 EDT ,
--- NOTE | 2023-11-19 08:10 | RAD_ITS ---
STUDY: X-RAY - RIGHT KNEE REASON FOR EXAM: Female, 53 years old. Pain TECHNIQUE: 4 view(s) of the knee. COMPARISON: None. FINDINGS: Degenerative spur formation of the distal femoral condyles. Spur formation along the medial and lateral tibial plateaus. Normal proximal tibiofibular articulation. There is severe degenerative arthrosis of the medial femorotibial compartment with severe joint space narrowing. There is moderate degenerative arthrosis of the lateral femorotibial compartment with moderate joint space narrowing. There is moderate degenerative arthrosis of the patellofemoral articulation. Small joint effusion. RAD/Knee 4 or More Views IMPRESSION: Degenerative arthrosis. Small joint effusion. Electronically Signed: Amor Cedillo MD at 15:49 EDT ,
== END | disposition home or self-care (01) ==
PROVIDERS: PCP Nurse Practitioner Primary Care; Visit Provider Nurse Practitioner Family
DX: M17.0 Bilateral primary osteoarthritis of knee (principal); C50.412 Malignant neoplasm of upper-outer quadrant of left female breast; Z51.81 Encounter for therapeutic drug level monitoring; Z79.899 Other long term (current) drug therapy; Z17.0 Estrogen receptor positive status [ER+]
CPT/HCPCS: 73564; 93306; 93356

== ENCOUNTER → 2023-12-08 | Outpatient (CLI) | payer BC, SELFPAY ==
--- NOTE | 2023-12-08 13:57 | US_ITS ---
STUDY: ULTRASOUND BREAST - BILATERAL REASON FOR EXAM: Female, 53 years old. Breast tenderness TECHNIQUE: Axial and longitudinal images of the BILATERAL breast were performed with a high resolution ultrasound transducer. # OF IMAGES: [id number] COMPARISON: None. FINDINGS: BILATERAL Breast: Heterogeneous background echotexture. Within the left breast, at 2:00, 9 cm nipple, ultrasound confirms a 6 mm oval parallel circumscribed hyperechoic mass in the superficial subcutaneous fat consistent with a lipoma or sebaceous cyst. Within the left breast, at 11:00, 15 cm from nipple, ultrasound confirms a 12 mm oval parallel circumscribed hyperechoic mass in the superficial subcutaneous fat consistent with a lipoma or sebaceous cyst.: US/Breast Complete Bilateral IMPRESSION: Suspect small lipomas in the superficial subcutaneous fat of the left breast. ASSESSMENT CATEGORY: BIRADS Category 2: Benign. A letter regarding these results will be sent to the patient by the facility within 30 days. Electronically Signed: Rafa Nicholson MD at 16:15 EDT ,
== END | disposition home or self-care (01) ==
LOC: OPUS 13:55
PROVIDERS: PCP Nurse Practitioner Primary Care; Referring Provider Internal Medicine Medical Oncology; Visit Provider Internal Medicine Medical Oncology
DX: N63.20 Unspecified lump in the left breast, unspecified quadrant (principal)
CPT/HCPCS: 76641

== ENCOUNTER → 2024-02-10 | Outpatient (CLI) | payer BC, SELFPAY ==
--- NOTE | 2024-02-10 08:54 | ECHODONC_ITS ---
Reason For Study: CARDIOTOXIC DRUG THERAPY Procedure This was a 2D Doppler, Color Flow transthoracic echocardiogram. Myocardial strain analysis was performed in this exam to aid in the assessment of cardiac function. Exam performed in department. Left Ventricle Normal LV size. Left ventricular systolic function is normal. The left ventricular ejection fraction is 65 %. Normal diastololic function. No regional wall motion abnormalities noted. Right Ventricle Normal RV size. Normal systolic function. Atria Normal left atrium. Normal right atrium. Mitral Valve Normal mitral valve. Tricuspid Valve Normal tricuspid valve. Mild (1+) tricuspid valve insufficiency. Pulmonary artery systolic pressure is 30 mmHg. Aortic Valve Trisinus/trileaflet aortic valve. Pulmonic Valve Normal pulmonic valve. Great Vessels Normal aortic root. The pulmonary artery is normal size. Normal inferior vena cava. Pericardium/Pleural No pericardial effusion. MMode/2D Measurements & Calculations LVIDd: 5.4 cm IVSd: 1.1 cm Ao root diam: 3.2 cm LVIDs: 3.2 cm LVPWd: 1.1 cm RVDd: 3.2 cm FS: 40.8 % LAV(MOD-bp): 56.0 ml LVAd ap4: 29.4 cm2 SV(MOD-sp4): 59.4 ml LAV(MOD-bp) Indexed: 26.3 ml/m2 LVLd ap4: 7.3 cm LAV(MOD-sp2): 52.3 ml EDV(MOD-sp4): 99.0 ml LAV(MOD-sp4): 57.8 ml EDV(sp4-el): 100.5 ml LVAs ap4: 16.5 cm2 LVLs ap4: 6.2 cm ESV(MOD-sp4): 39.6 ml ESV(sp4-el): 37.6 ml EF(MOD-sp4): 60.0 % EF(sp4-el): 62.6 % SV(sp4-el): 62.9 ml LA A4 area: 18.4 cm2 LA dimension(2D): 3.7 cm RA A4 area: 15.1 cm2 TAPSE: 2.6 cm Time Measurements MV dec time: 0.17 sec Doppler Measurements & Calculations MV E max rasheed: 79.9 cm/sec Lat Peak E' Rasheed: 8.3 cm/sec Med Peak E' Rasheed: 11.9 cm/sec MV A max rasheed: 50.7 cm/sec E/E' lat: 9.6 E/E' med: 6.7 MV E/A: 1.6 MV V2 max: 86.5 cm/sec MV P1/2t max rasheed: 85.4 cm/sec Ao V2 max: 109.4 cm/sec MV max P.0 mmHg MV P1/2t: 75.6 msec Ao max P.8 mmHg MV V2 mean: 50.3 cm/sec Ao V2 mean: 80.2 cm/sec MV mean P.2 mmHg MV dec slope: 330.8 cm/sec2 Ao mean P.8 mmHg MV V2 VTI: 23.0 cm MVA(P1/2t): 2.9 cm2 Ao V2 VTI: 21.7 cm AV (velocity ratio): 1.0 LV V1 max: 102.9 cm/sec TR max rasheed: 261.2 cm/sec LV V1 max P.2 mmHg TR max P.3 mmHg LV V1 mean P.3 mmHg LV V1 mean: 70.5 cm/sec LV V1 VTI: 22.0 cm ECHO/ONC Echo Complete Interpretation Summary Normal LV size. Left ventricular systolic function is normal. The left ventricular ejection fraction is 65 %. The global longitudinal strain is normal. The global longitudinal strain = -18. 6 % (normal). Ordering Physician: Genna Zuniga Referring Physician: Genna Zuniga Performed By: Nicolle Obrien, [place], RVT
== END | disposition home or self-care (01) ==
LOC: CVS 08:54
PROVIDERS: PCP Nurse Practitioner Primary Care; Referring Provider Nurse Practitioner Family; Visit Provider Nurse Practitioner Family
DX: Z51.81 Encounter for therapeutic drug level monitoring (principal); Z79.899 Other long term (current) drug therapy
CPT/HCPCS: 93306; 93356

== ENCOUNTER → 2024-02-12 | Outpatient (CLI) | payer BC, SELFPAY ==
--- NOTE | 2024-02-12 13:30 | EKG12_ITS ---
Test Reason : PRE OP Blood Pressure : / mmHG Vent. Rate : 076 BPM Atrial Rate : 076 BPM P-R Int : 152 ms QRS Dur : 098 ms QT Int : 404 ms P-R-T Axes : 061 -55 053 degrees QTc Int : 454 ms Normal sinus rhythm Left axis deviation Abnormal ECG Confirmed by ARUN NOONAN, AFUA ([id number]), newspaper photo editor ALEX SMITH ([id number]) on 02/13/2024 10:49:09 AM Referred By: Dain Mendosa Confirmed By:AFUA DIAS MD
--- NOTE | 2024-02-12 13:31 | CT_ITS ---
CT RIGHT LOWER EXTREMITY WITH 3-D IMAGING CLINICAL INDICATION: PRE OP WASC TECHNIQUE: Axial CT images of the RIGHT lower extremity was performed without IV contrast material. Coronal and sagittal reformats were provided. The protocol utilizes one or more of the following dose reduction techniques: automated exposure control, adjustment of mA and/or kV according to patient size,and/or use of iterative reconstruction technique. RADIATION DOSAGE (If Supplied By Facility): CTDIvol = ( 18.79 ) mGy, DLP = ( 1226.18 ) mGycm COMPARISON: No relevant prior comparison study available FINDINGS: Bones: Imaging of the right hip joint is obtained. No significant joint space narrowing is seen. No evidence of fracture or dislocation. Imaging of the right knee joint was obtained. There is a marked degree of joint space narrowing involving the medial compartment of the knee joint with evidence of a spur formation along the medial and lateral distal femoral condyles and the medial and lateral tibial plateaus. Moderate degree of joint space and of the patellofemoral joint with degenerative spur formation. Imaging of the ankle was obtained. No significant abnormality is seen. Soft Tissues: The deep soft tissue structures are unremarkable. The superficial soft tissues are unremarkable without evidence of edema, hematoma, or foreign body. CT/Extremity Lower without Contra IMPRESSION: Marked degree of joint space narrowing involving the medial compartment of the knee joint with bony spur formation as well as moderate degree of joint space narrowing of the patellofemoral joint. Electronically Signed: Amor Cedillo MD at 14:24 EDT ,
== END | disposition home or self-care (01) ==
PROVIDERS: PCP Nurse Practitioner Primary Care; Referring Provider Specialist; Visit Provider Specialist
DX: Z01.818 Encounter for other preprocedural examination (principal); Z01.810 Encounter for preprocedural cardiovascular examination; M17.0 Bilateral primary osteoarthritis of knee; M25.561 Pain in right knee
CPT/HCPCS: 73700; 93005

== ENCOUNTER → 2024-05-19 | Outpatient (CLI) | payer BC, SELFPAY ==
--- NOTE | 2024-05-19 12:52 | ECHODONC_ITS ---
Reason For Study: CHEMOTHERAPY Procedure This was a 2D Doppler, Color Flow transthoracic echocardiogram. Myocardial strain analysis was performed in this exam to aid in the assessment of cardiac function. Exam performed in department. Left Ventricle Normal LV size. The global longitudinal strain = -17.5 % (normal). The left ventricular ejection fraction is 60 %. Stage 1 diastolic dysfunction. No regional wall motion abnormalities noted. Right Ventricle Normal RV size. Normal systolic function. Atria Normal left atrium. Normal right atrium. Mitral Valve Normal mitral valve. Tricuspid Valve Normal tricuspid valve. Aortic Valve Normal aortic valve. Trisinus/trileaflet aortic valve. Pulmonic Valve Normal pulmonic valve. Great Vessels Normal aortic root. The pulmonary artery is normal size. Normal inferior vena cava. Pericardium/Pleural No pericardial effusion. MMode/2D Measurements & Calculations LVIDd: 5.0 cm IVSd: 1.1 cm LVOT diam: 2.0 cm LVIDs: 2.7 cm LVPWd: 0.96 cm LVOT area: 3.3 cm2 RVDd: 3.6 cm FS: 45.5 % asc Aorta Diam: 3.4 cm LAV(MOD-bp): 42.6 ml LVAd ap4: 24.0 cm2 LAV(MOD-bp) Indexed: 19.7 ml/m2 LVLd ap4: 7.3 cm LAV(MOD-sp2): 39.0 ml EDV(MOD-sp4): 64.5 ml LAV(MOD-sp4): 40.7 ml EDV(sp4-el): 66.7 ml LVAs ap4: 14.5 cm2 LVLs ap4: 6.4 cm ESV(MOD-sp4): 29.1 ml ESV(sp4-el): 28.2 ml EF(MOD-sp4): 54.9 % EF(sp4-el): 57.7 % LVAd ap2: 23.5 cm2 SV(MOD-sp4): 35.4 ml SV(MOD-sp2): 35.0 ml LVLd ap2: 7.5 cm SI(MOD-sp4): 16.4 ml/m2 SI(MOD-sp2): 16.2 ml/m2 EDV(MOD-sp2): 61.1 ml EDV(sp2-el): 62.5 ml LVAs ap2: 13.8 cm2 LVLs ap2: 6.1 cm ESV(MOD-sp2): 26.1 ml ESV(sp2-el): 26.3 ml EF(MOD-sp2): 57.3 % SV(sp4-el): 38.5 ml Ao sinus diam: 3.[address] Junction: 3.1 cm LA dimension(2D): 3.7 cm LA A4 area: 15.6 cm2 RA A4 area: 11.1 cm2 TAPSE: 2.3 cm Time Measurements MV dec time: 0.16 sec Doppler Measurements & Calculations MV E max rasheed: 61.4 cm/sec Lat Peak E' Rasheed: 9.9 cm/sec Med Peak E' Rasheed: 10.4 cm/sec MV A max rasheed: 62.6 cm/sec E/E' lat: 6.2 E/E' med: 5.9 MV E/A: 0.98 MV dec slope: 388.4 cm/sec2 Ao V2 max: 118.8 cm/sec LV V1 max: 100.1 cm/sec Ao max P.6 mmHg LV V1 max P.0 mmHg Ao V2 mean: 84.8 cm/sec LV V1 mean P.6 mmHg Ao mean P.3 mmHg LV V1 mean: 78.0 cm/sec Ao V2 VTI: 24.7 cm LV V1 VTI: 18.5 cm AV (velocity ratio): 0.75 OLYA(I,D): 2.5 cm2 OLYA(V,D): 2.8 cm2 SV(LVOT): 60.9 ml PA V2 max: 104.2 cm/sec ECHO/ONC Echo Complete Interpretation Summary Normal LV size. The global longitudinal strain = -17.5 % (normal). The left ventricular ejection fraction is 60 %. Stage 1 diastolic dysfunction. Ordering Physician: Genna Zuniga Referring Physician: Genna Zuniga Performed By: Shy Bunch RDCS
== END | disposition home or self-care (01) ==
LOC: CVS 12:52
PROVIDERS: PCP Nurse Practitioner Primary Care; Referring Provider Nurse Practitioner Family; Visit Provider Nurse Practitioner Family
DX: Z51.81 Encounter for therapeutic drug level monitoring (principal); C50.412 Malignant neoplasm of upper-outer quadrant of left female breast; Z79.899 Other long term (current) drug therapy; Z17.0 Estrogen receptor positive status [ER+]
CPT/HCPCS: 93306; 93356

== ENCOUNTER → 2024-06-16 | Outpatient (CLI) | payer BC, SELFPAY ==
--- NOTE | 2024-06-16 | IMM_PTH ---
PATIENT: VALORIE RUSSELL LOC: [facility] U#:[id number] AGE/SX: 54/F ROOM: RE06/16/[address]: Dr. Yvonne Hinojosa MD : 1970 BED: DIS: 06/16/2024 SPEC #: [id number] RECD: 06/18/24 10:09 STATUS: JOANN REQ #: [id number] MIKI: 06/16/24 00:[address]: Yvonne Hinojosa DEPT: IMMUNOHISTOCHEMISTRY RECD BY: José Luis Obando ENTERED: 06/18/24 10:10 SP TYPE: IMMUNO OTHR DR: Maida Kim, MONOGRAM AND LETTER PASTER-C Tissues: Skin of chest Procedures: E-CAD (initial) CD45 (add) CK7 (add) CK8 (add) Pankeratin (add) PHYSICIAN & INSTITUTION [place] [id number] SPECIMEN INFORMATION: Tissue Source: Left breast skin punch biopsy Clinical Info: Skin biopsy of left breast Specimen Number: [id number] CPT code: 66807,[id number] METHODOLOGY: Deparaffinized sections of prefer/formalin-fixed tissue or PAP/DQ stained slides are incubated with monoclonal/polyclonal antibodies/oligonucleotide probes. Localization is made via biotin free immunoperoxidase method. Appropriate controls are performed and reacted as expected. Results on target cell population are indicated in the following table: RESULTS: ANTIBODY / CLONE RESULT E-Cad (ECH-6) negative AE1-3 (AE1/AE3/PCK26) negative CK7 (OV-TL12/30) negative CK8 (07pnfrR77) negative CD45 (RP2/18) positive These tests were developed and their performance characteristics determined by [facility]. They may not have been cleared or approved by the U.S. Food and Drug Administration. The FDA has determined that such clearance or approval is not necessary. The above immunohistochemical/dualISH markers are ordered and reviewed by the Pathologist. INTERPRETATION: Skin of left breast, punch biopsy: Negative for malignancy. 06/18/2024
--- NOTE | 2024-06-16 13:15 | TISS_PTH ---
PATIENT: VALORIE RUSSELL LOC: [facility] U#:[id number] AGE/SX: 54/F ROOM: RE06/16/[address]: Dr. Yvonne Hinojosa MD : 1970 BED: DIS: 06/16/2024 SPEC #: [id number] RECD: 06/16/24 14:07 STATUS: JOANN MORA #: [id number] MIKI: 06/16/24 13:[address]: Yvonne Hinojosa DEPT: SURGICAL PATHOLOGY RECD BY: Kanika Moffett ENTERED: 06/17/24 10:12 SP TYPE: Tissue Bx LAINE DR: Maida Kim, WALL TO WALL CARPET INSTALLER-C Tissues: Skin of chest Procedures: Special Stain Group I Surgery Specimen Level IV GMS Stain (control) HEADER OPERATION: Skin biopsy of left breast PRE-OP DIAGNOSIS: Skin biopsy of left breast TISSUE SUBMITTED: Left breast skin punch biopsy - superior MICROSCOPIC DIAGNOSIS Left breast skin, superior, punch biopsy: Perivascular and periadnexal dermal acute and chronic inflammation. Negative for malignancy. See comment. 06/18/2024 COMMENT Immunohistochemistry ([id number]) supports the above diagnosis. Findings may represent vasculitis. Special stain for fungi is negative for organisms; matched control is appropriate. 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 This case has been reviewed in consultation with Dr. Banegas who concurs with the above diagnosis. IDC: JS Clinical correlation and appropriate follow up are necessary. MICROSCOPIC DESCRIPTION Slides are reviewed. GROSS DESCRIPTION Received in fixative is one container labeled with the patient's name and designated Skin biopsy - left breast. The specimen consists of a punch biopsy of villarreal-white skin measuring 0.4cm in diameter and 0.6cm in length. The entire specimen is submitted in one cassette. [id number] 06/17/2024 TC:3 CPT:30802,[id number]
== END | disposition home or self-care (01) ==
LOC: LABSPEC 14:11
PROVIDERS: PCP Nurse Practitioner Primary Care; Referring Provider Surgery; Visit Provider Surgery
DX: R21 Rash and other nonspecific skin eruption (principal)
CPT/HCPCS: 88305; 88312; 88341; 88342

== ENCOUNTER → 2024-07-05 | Outpatient (CLI) | payer BC, SELFPAY ==
--- NOTE | 2024-07-05 12:19 | US_ITS ---
STUDY: ULTRASOUND BREAST - RIGHT REASON FOR EXAM: Female, 54 years old. TECHNIQUE: Axial and longitudinal images of the RIGHT breast were performed with a high resolution ultrasound transducer. # OF IMAGES: 43 COMPARISON: Comparison is made with prior PET scan dated June 15, 2024 FINDINGS: Four quadrant evaluation was performed including the axilla and retroareolar nipple regions. Multiple lymph nodes are seen in the right axilla. The largest measures 1.7 cm x 2 cm x 0.9 cm. There is evidence of a fatty hilum suggestive of a benign lymph node. US/Breast Limited Unilateral IMPRESSION: Multiple right axial lymph nodes as described. All the lymph nodes have a fatty hilum suggestive of benignity. ASSESSMENT CATEGORY: 2 Electronically Signed: Amor Cedillo MD at 14:53 EST ,
== END | disposition home or self-care (01) ==
PROVIDERS: PCP Physician Assistant; Referring Provider Internal Medicine Medical Oncology; Visit Provider Internal Medicine Medical Oncology
DX: D49.89 Neoplasm of unspecified behavior of other specified sites (principal); C50.812 Malignant neoplasm of overlapping sites of left female breast; R94.8 Abnormal results of function studies of other organs and systems
CPT/HCPCS: 76642

== ENCOUNTER → 2024-07-22 | Outpatient (CLI) | payer BC, SELFPAY ==
--- NOTE | 2024-07-22 11:43 | US_ITS ---
PROCEDURE: RIGHT BREAST LIMITED UNILATERAL REASON FOR EXAM: Abnormal findings from prior imaging. COMPARISON: Reviewed TECHNIQUE: Targeted ultrasound was performed in the right axilla in the region of concern documented on prior imaging. FINDINGS: Several morphologically unremarkable right axillary level 1 lymph nodes are identified. No suspicious cystic or solid masses are seen. US/Breast Limited Unilateral IMPRESSION: As above. BI-RADS 2. Reading Location: [facility]
== END | disposition home or self-care (01) ==
LOC: OPUS 11:42 → US 11:43
PROVIDERS: PCP Physician Assistant; Referring Provider Nurse Practitioner Family; Visit Provider Nurse Practitioner Family
DX: R94.8 Abnormal results of function studies of other organs and systems (principal); C50.919 Malignant neoplasm of unspecified site of unspecified female breast
CPT/HCPCS: 76642

== ENCOUNTER → 2024-08-12 | Outpatient (CLI) | payer BC, SELFPAY ==
--- NOTE | 2024-08-12 14:05 | CT_ITS ---
PROCEDURE: EXTREMITY LOWER WITHOUT CONTRA REASON FOR EXAM: Left knee pain Luis protocol. TECHNIQUE: Multiple axial tomographic images of the left hip, left knee and left ankle were obtained without intravenous contrast administration. Coronal and sagittal reconstruction was obtained as well. COMPARISON: None. FINDINGS: Bones: No evidence of fracture. Joints: Imaging of the left hip was obtained. Minimal joint space narrowing. Imaging of the knee joint was obtained. There is a marked degree of joint space narrowing involving the medial compartment of the knee joint with evidence of spur formation along the medial femoral condyle and as well as the medial tibial plateau. There is a moderate degree of osteoarthritis of the patellofemoral joint with degenerative spur formation. Imaging of the ankle joint was obtained. No significant abnormality is seen. Soft Tissues: Small joint effusion. CT/Extremity Lower without Contra IMPRESSION: Marked degree of osteoarthritis with degenerative spur formation of the medial knee joint. One or more dose reduction techniques were used (e.g., Automated exposure contr ol, adjustment of the mA and/or kV according to patient size, use of iterative reconstruction technique). Reading Location: [id number]
== END | disposition home or self-care (01) ==
LOC: CT 13:58
PROVIDERS: PCP Physician Assistant; Referring Provider Specialist; Visit Provider Specialist
DX: M25.562 Pain in left knee (principal); M21.162 Varus deformity, not elsewhere classified, left knee; M17.0 Bilateral primary osteoarthritis of knee
CPT/HCPCS: 73700

== ENCOUNTER → 2024-08-17 | Outpatient (CLI) | payer BC, SELFPAY ==
[2024-08-17 08:57] LABS: AST(SGOT) 34 U/L (<=31); Alanine Aminotransfer ALT/SGPT 30 U/L (<=34); Albumin, Serum 4.4 g/dL (3.5-5.0); Alkaline Phosphatase 68 U/L (35-104); Bilirubin, Direct 0.14 mg/dL (0.00-0.30); Cholesterol 159 mg/dL (<=200); Globulin 2.6 g/dL (2.2-4.2); High Density Lipoprotein 55 mg/dL; Low Density Lipoprotein Calc. 60 mg/dL; Total Bilirubin 0.29 mg/dL (0.00-1.30); Triglycerides 224 mg/dL; Very Low Density Lipoprotein 45 mg/dL (5-40); cholesterol:hdl ratio screen 2.92
== END | disposition home or self-care (01) ==
LOC: PAVLAB 08:08
PROVIDERS: PCP Physician Assistant; Referring Provider Physician Assistant Medical; Visit Provider Physician Assistant Medical
DX: E78.5 Hyperlipidemia, unspecified (principal)
CPT/HCPCS: 36415; 80061; 80076

== ENCOUNTER → 2024-08-31 | Outpatient (CLI) | payer BC, SELFPAY ==
--- NOTE | 2024-08-31 11:06 | ECHODONC_ITS ---
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 Myocardial strain analysis was performed in this exam to aid in the assessment of cardiac function. Technically difficult study, patient had a hard time staying on left side due to recent left knee surgery (08/2024). Exam performed in department. Left Ventricle Normal LV size. The global longitudinal strain = -20.1 % (normal). No regional wall motion abnormalities noted. Right Ventricle Normal RV size. Normal systolic function. Atria Normal left atrium. Normal right atrium. Mitral Valve Normal mitral valve. Tricuspid Valve Normal tricuspid valve. Aortic Valve Trisinus/trileaflet aortic valve. Pulmonic Valve Normal pulmonic valve. Great Vessels Normal aortic root. The pulmonary artery is normal size. Normal inferior vena cava. Pericardium/Pleural No pericardial effusion. MMode/2D Measurements & Calculations LVIDd: 5.2 cm IVSd: 1.1 cm Ao root diam: 3.4 cm LVIDs: 3.4 cm LVPWd: 0.99 cm RVDd: 3.4 cm FS: 33.7 % LAV(MOD-sp2): 47.4 ml LA dimension(2D): 2.8 cm TAPSE: 3.0 cm Time Measurements MV dec time: 0.16 sec Doppler Measurements & Calculations MV E max rasheed: 83.9 cm/sec Lat Peak E' Rasheed: 20.1 cm/sec Med Peak E' Rasheed: 11.4 cm/sec MV A max rasheed: 63.0 cm/sec E/E' lat: 4.2 E/E' med: 7.4 MV E/A: 1.3 MV V2 max: 89.3 cm/sec MV P1/2t max rasheed: 88.3 cm/sec Ao V2 max: 155.7 cm/sec MV max P.2 mmHg MV P1/2t: 54.1 msec Ao max P.7 mmHg MV V2 mean: 48.1 cm/sec Ao V2 mean: 107.2 cm/sec MV mean P.1 mmHg MV dec slope: 478.1 cm/sec2 Ao mean P.2 mmHg MV V2 VTI: 22.9 cm MVA(P1/2t): 4.1 cm2 Ao V2 VTI: 33.8 cm LV V1 max: 123.3 cm/sec PA V2 max: 111.0 cm/sec LV V1 max P.1 mmHg ECHO/ONC Echo Complete Interpretation Summary Normal LV size. The global longitudinal strain = -20.1 % (normal). The global longitudinal strain is normal. The global longitudinal strain = -20. 1 % (normal). Structurally normal valves. Ordering Physician: Genna Zuniga Referring Physician: Genna Zuniga Performed By: Seamus Carson RCS
== END | disposition home or self-care (01) ==
LOC: CVS 11:04
PROVIDERS: PCP Physician Assistant; Referring Provider Nurse Practitioner Family; Visit Provider Nurse Practitioner Family
DX: Z51.81 Encounter for therapeutic drug level monitoring (principal); C50.412 Malignant neoplasm of upper-outer quadrant of left female breast; C50.919 Malignant neoplasm of unspecified site of unspecified female breast; Z79.899 Other long term (current) drug therapy; Z17.0 Estrogen receptor positive status [ER+]; Z17.31 Human epidermal growth factor receptor 2 positive status
CPT/HCPCS: 93306; 93356

== ENCOUNTER 2024-09-17 14:47 | Outpatient (CLI) | payer BC, SELFPAY ==
--- NOTE | 2024-09-17 14:50 | VDLE_ITS ---
Reason For Study Reason For Study: Left leg pain RIGHT LEFT CFV is compressible, spontaneous, phasic, competent GSV is normal. and demonstrates normal augmentation. CFV is compressible, spontaneous, phasic, competent, Procedure and demonstrates normal augmentation. This is a venous duplex using B-mode, color flow and FV is compressible, spontaneous, phasic, competent spectral Doppler. and demonstrates normal augmentation. Exam performed in department. POP V is compressible, spontaneous, phasic, competent A preliminary report was called and/or faxed to and demonstrates normal augmentation. Navya. T/P Trunk is compressible. PTV is compressible. LT PerV is compressible. Nonvascularized structure noted in the left popliteal fossa that measures 0.72 x 2.75 x 4.58 cm. VL/Venous Duplex US, Unilateral Interpretation Summary Deep veins of the left lower extremity are patent and compressible segmentally. There is no evidence of left lower extremity deep vein thrombosis. Valvular competence appears intact within the p roximal deep venous system on the left . The left great saphenous vein appears patent and compressible segmentally. A no n-vascular, hypoechoic structure is noted in the left popliteal space, measuring 0.72 cm x 2.75 cm x 4.58 cm. This probab ly represents a popliteal cyst. Clinical correlation is advised. The right common femoral vein is patent and compressibl e . Ordering Physician: Dain Mendosa Referring Physician: Blue Alicia Performed By: Yazmin Anne RVT
== END 2024-09-17 23:59 | disposition home or self-care (01) ==
LOC: CVS 14:49
PROVIDERS: PCP Physician Assistant; Referring Provider Specialist; Visit Provider Specialist
DX: M25.562 Pain in left knee (principal)
CPT/HCPCS: 93971

== ENCOUNTER → 2024-10-26 | Outpatient (CLI) | payer BC, SELFPAY | END | disposition home or self-care (01) | LOC: LABSPEC 13:06 | PROVIDERS: PCP Physician Assistant; Referring Provider Physician Assistant; Visit Provider Physician Assistant | DX: R39.15 Urgency of urination (principal) | CPT/HCPCS: 87086; 87088; 87186 ==

== ENCOUNTER → 2024-12-02 | Outpatient (CLI) | payer BC, SELFPAY ==
--- NOTE | 2024-12-02 06:50 | ECHOLONC_ITS ---
Reason For Study Reason For Study: CARDIOTOXIC DRUG THERAPY Procedure This was a limited 2D transthoracic echocardiogram. Myocardial strain analysis was performed in this exam to aid in the assessment of cardiac function. Exam performed in department. Left Ventricle Normal LV size. The left ventricular ejection fraction is 60 %. No regional wall motion abnormalities noted. Right Ventricle Normal RV size. Normal systolic function. Atria Normal left atrium. Normal right atrium. Mitral Valve Normal mitral valve. Tricuspid Valve Normal tricuspid valve. Aortic Valve Normal aortic valve. Pulmonic Valve Normal pulmonic valve. Great Vessels Normal aortic root. The pulmonary artery is normal size. Inferior vena cava collapse with respiration. Pericardium/Pleural No pericardial effusion. MMode/2D Measurements & Calculations LVIDd: 5.3 cm IVSd: 1.1 cm Ao root diam: 3.6 cm LVIDs: 3.4 cm LVPWd: 0.99 cm RVDd: 2.9 cm FS: 35.3 % LAV(MOD-bp): 53.6 ml LVAd ap4: 30.3 cm2 LVAd ap2: 28.9 cm2 LAV(MOD-bp) Indexed: 24.9 ml/m2 LVLd ap4: 8.0 cm LVLd ap2: 8.2 cm LAV(MOD-sp2): 51.6 ml EDV(MOD-sp4): 95.9 ml EDV(MOD-sp2): 87.6 ml LAV(MOD-sp4): 50.4 ml EDV(sp4-el): 97.6 ml EDV(sp2-el): 86.3 ml LVAs ap4: 16.8 cm2 LVAs ap2: 16.4 cm2 LVLs ap4: 6.7 cm LVLs ap2: 7.0 cm ESV(MOD-sp4): 37.4 ml ESV(MOD-sp2): 31.9 ml ESV(sp4-el): 36.0 ml ESV(sp2-el): 32.9 ml EF(MOD-sp4): 61.0 % EF(MOD-sp2): 63.6 % EF(sp4-el): 63.1 % SV(MOD-sp4): 58.6 ml SV(MOD-sp2): 55.7 ml SV(sp4-el): 61.6 ml SI(MOD-sp4): 27.2 ml/m2 SI(MOD-sp2): 25.9 ml/m2 LA A4 area: 18.2 cm2 LA dimension(2D): 3.2 cm RA A4 area: 19.0 cm2 TAPSE: 2.3 cm ECHO/ONC Echo, Limited Study Interpretation Summary Normal LV size. The left ventricular ejection fraction is 60 %. The global longitudinal strain is normal. The global longitudinal strain = -17. 6 % (normal). Ordering Physician: Cristóbal Ford Referring Physician: Blue Alicia Performed By: Nicolle Obrien RDCS, RVT
--- OUTSIDE RECORDS SUMMARY | 2024-12-02 06:57 | XMS RPT_ITS | CCD ---
Author Organization [facility] Team Providers Care Road Grader Operator Name Role Phone CAROLINA MCGREGOR (BAR ROLLER) Unavailable Unavailable Daily PT, Sylvia Unavailable Unavailable Julio OUTREACH LIBRARIAN, OUTREACH LIBRARIAN-C Maida Primary Care Provider Julio OUTREACH LIBRARIAN, OUTREACH LIBRARIAN-C Maida Referring Provider [phone] LARA Martin Attending Provider [phone] LARA Tobias Attending Provider [phone] Dr. Jesus Varma Attending Provider [phone] Julio OUTREACH LIBRARIAN, OUTREACH LIBRARIAN-C Maida Primary Care Provider Julio OUTREACH LIBRARIAN, OUTREACH LIBRARIAN-C Maida Referring Provider [phone] LARA Martin Attending Provider [phone] Dr. Jesus Varma Attending Provider [phone] Cristóbal Hernández Attending Provider [phone] Julio OUTREACH LIBRARIAN, OUTREACH LIBRARIAN-C Maida Primary Care Provider [phone] Julio OUTREACH LIBRARIAN, OUTREACH LIBRARIAN-C Maida Referring Provider [phone] LARA Martin Attending Provider [phone] Dr. Josh Wolfe Attending Provider JULIO METAL BUILDING ASSEMBLER-BAR ROLLER, MAIDA S Primary Care Physicia n Julio OUTREACH LIBRARIAN, OUTREACH LIBRARIAN-C Madia Primary Care Provider Julio OUTREACH LIBRARIAN, OUTREACH LIBRARIAN-C Maida Referring Provider [phone] Dr. Cristóbal Ford Attending Provider Dr. Josh Wolfe Referring Provider [phone] Dr. Josh Wolfe Other Provider Dr. Cristóbal Ford Other Provider Dr. Jey Mackenzie Attending Provider Aleksander OUTREACH LIBRARIAN, OUTREACH LIBRARIAN-C Genna Attending Provider Julio OUTREACH LIBRARIAN, OUTREACH LIBRARIAN-C Maida Primary Care Provider Julio OUTREACH LIBRARIAN, OUTREACH LIBRARIAN-C Maida Referring Provider [phone] Julio OUTREACH LIBRARIAN, OUTREACH LIBRARIAN-C Maida Primary Care Provider Julio OUTREACH LIBRARIAN, OUTREACH LIBRARIAN-C Maida Referring Provider [phone] Dr. Josh Wolfe Attending Provider Dr. Cristóbal Ford Attending Provider Dr. Josh Wolfe Referring Provider Dr. Josh Wolfe Other Provider Dr. Cristóbal Ford Other Provider Dr. Jey Mackenzie Attending Provider Aleksander GARCIA, OUTREACH LIBRARIAN-C Genna Attending Provider Dr. Cristóbal Ford Referring Provider Josh Mancuso MD Unavailable [phone] Cliff CAST-BAR ROLLER, Paige Burnett Unavailable [phone] Liliana BYRNE/Cristóbal REYES Unavailable Maida Flores S Primary Care Provider [phone] Laurel Tomas RN Unavailable Unavailable JULIO, MAIDA S Primary Care Unavailable SELF, SELF Referring Unavailable JOSH MANCUSO Attending Unavailable Julio OUTREACH LIBRARIAN, OUTREACH LIBRARIAN-C Maida Primary Care Provider [phone] Julio OUTREACH LIBRARIAN, OUTREACH LIBRARIAN-C Maida Referring Provider [phone] Dr. Cristóbal Ford Attending Provider Aleksander OUTREACH LIBRARIAN, OUTREACH LIBRARIAN-C Genna Attending Provider Dr. Josh Wolfe Attending Provider [phone] Dr. Jesus Varma Attending Provider LARA Martin Attending Provider Dr. Harjinder Peters Attending Provider [phone] [place] OUTREACH LIBRARIAN, OUTREACH LIBRARIAN-C Maida Primary Care Provider [phone] Julio OUTREACH LIBRARIAN, OUTREACH LIBRARIAN-C Maida Referring Provider [phone] Aleksander OUTREACH LIBRARIAN, OUTREACH LIBRARIAN-C Genna Attending Provider Dr. Cristóbal Ford Attending Provider [phone] Dr. Cristóbal Ford Referring Provider [phone] [place] OUTREACH LIBRARIAN, OUTREACH LIBRARIAN-C Maida Primary Care Provider Julio OUTREACH LIBRARIAN, OUTREACH LIBRARIAN-C Maida Referring Provider [phone] Dr. Cristóbal Ford Attending Provider [phone] Aleksander OUTREACH LIBRARIAN, OUTREACH LIBRARIAN-C Genna Attending Provider [phone] Dr. Emelia Carrington Attending Provider Julio OUTREACH LIBRARIAN, OUTREACH LIBRARIAN-C Maida Primary Care Provider [place] OUTREACH LIBRARIAN, OUTREACH LIBRARIAN-C Maida Referring Provider [phone] Dr. Cristóbal Ford Attending Provider [phone] LARA Martin Attending Provider [phone] Julio OUTREACH LIBRARIAN, OUTREACH LIBRARIAN-C Maida Primary Care Provider Julio OUTREACH LIBRARIAN, OUTREACH LIBRARIAN-C Maida Referring Provider [phone] Aleksander OUTREACH LIBRARIAN, OUTREACH LIBRARIAN-C Genna Attending Provider Dr. Emelia Carrington Attending Provider Dr. Cristóbal Ford Attending Provider [phone] LARA Martin Attending Provider [phone] Liliane Hall Attending Provider Dr. Jesus Sims Attending Provider [phone] JULIO METAL BUILDING ASSEMBLER-BAR ROLLER, MAIDA S Attending Unava ilable JULIO METAL BUILDING ASSEMBLER-BAR ROLLER, MAIDA S Primary Care Unava ilable LISA LYN DO Attending Unavailable JULIO METAL BUILDING ASSEMBLER-BAR ROLLER, MAIDA S Primary Care Unava ilable Inc, [facility] Primary Care Provider Unav ailable Julio OUTREACH LIBRARIAN, OUTREACH LIBRARIAN-C Maida Primary Care Provider Liliane Hall Attending Provider Unavailabl e Julio OUTREACH LIBRARIAN, OUTREACH LIBRARIAN-C Maida Referring Provider [phone] Aleksander OUTREACH LIBRARIAN, OUTREACH LIBRARIAN-C Genna Attending Provider Dr. Jesus Varma Attending Provider Dr. Cristóbal Ford Attending Provider JulioKaya hernandezica S Primary Care Provider JULIO, MAIDA Primary Care Unavailable GLADIS RAUSCH Attending Unavailable INC, [facility] Primary Care Unavailable NIKKO GOLDBERG Attending Unavailable GLADIS RAUSCH Attending Unavailable INC, [facility] Primary Care Unavailable JULIO, MAIDA Primary Care Unavailable GLADIS RAUSCH Attending Unavailable [facility], [facility] Primary Care Unavailable NIKKO GOLDBERG Attending Unavailable INC, [facility] Primary Care Unavailable NIKKO GOLDBERG Referring Unavailable JULIO, MAIDA Primary Care Unavailable GLADIS RAUSCH Admitting Unavailable GLADIS RAUSCH Attending Unavailable Julio OUTREACH LIBRARIAN-C, Maida Primary Care Provider [phone] Julio OUTREACH LIBRARIAN-C, Maida Referring Provider [phone] Aleksander OUTREACH LIBRARIAN-C, Genna Attending Provider Aleksander OUTREACH LIBRARIAN-C, Genna Referring Provider Avani NOONAN, Dr. eLe Attending Provider Dr. Cristóbal Ford MD Attending Provider Dr. Yvonne Hinojosa MD Attending Provider Dr. Yvonne Hinojosa MD Referring Provider Blue Martin Primary Care Provider Blue Martin Referring Provider Dr. Cristóbal Ford MD Referring Provider Aleksander OUTREACH LIBRARIAN-C, Genna Other Provider Dr. Dain Serrano MD Attending Provider [phone] Dr. Dain Serrano MD Referring Provider Carly Manzanares Attending Provider [phone] Carly Manzanares Referring Provider [phone] [place] OUTREACH LIBRARIAN-C, Maida Primary Care Provider [phone] Aleksander OUTREACH LIBRARIAN-C, Genna Attending Provider Julio OUTREACH LIBRARIAN-C, Maida Referring Provider [phone] Aleksander OUTREACH LIBRARIAN-C, Genna Other Provider [phone] Julio OUTREACH LIBRARIAN-C, Maida Primary Care Provider [phone] [place] OUTREACH LIBRARIAN-C, Maida Referring Provider [phone] Dr. Cristóbal Ford MD Attending Provider Aleksander OUTREACH LIBRARIAN-C, Genna Attending Provider Aleksander OUTREACH LIBRARIAN-C, Genna Referring Provider Avani NOONAN, Dr. Lee Attending Provider [phone] Blue Martin Primary Care Provider [phone] Dr. Cristóbal Ford MD Attending Provider Julio OUTREACH LIBRARIAN-C, Maida Primary Care Provider [phone] Aleksander OUTREACH LIBRARIAN-C, Genna Other Provider [phone] Dain Bishop Attending Provider [phone] Blue Martin Primary Care Provider [phone] Blue Martin Referring Provider [phone] Dr. Cristóbal Ford MD Attending Provider Dr. Wyatt Patel MD Attending Provider Dain Bishop Referring Provider [phone] Julio OUTREACH LIBRARIAN-C, Maida Primary Care Provider [phone] Dr. Cristóbal Ford MD Referring Provider Aleksander OUTREACH LIBRARIAN-C, Genna Other Provider Blue Martin Primary Care Provider [phone] Blue Martin Referring Provider Aleksander OUTREACH LIBRARIAN-C, Genna Attending Provider Aleksander OUTREACH LIBRARIAN-C, Genna Referring Provider Julio OUTREACH LIBRARIAN-C, Maida Primary Care Provider [phone] Dr. Cristóbal Ford MD Referring Provider Aleksander OUTREACH LIBRARIAN-C, Genna Other Provider [phone] Cristóbal Ford Referring Unavailable Cristóbal Ford Attending Unavailable Ravin BERMUDEZ, Blue Primary Care Unavailable Aleksander OUTREACH LIBRARIAN, Genna Referring Unavailable Aleksander OUTREACH LIBRARIAN, Genna Attending Unavailable Wayt PA, Blue Primary Care Unavailable Aleksander OUTREACH LIBRARIAN, Genna Attending Unavailable Ravin BERMUDEZ, Blue Primary Care Unavailable Ravin BERMUDEZ, Blue Referring Unavailable Carly Carrasquillo Attending Unavailabl e Ravin BERMUDEZ, Blue Primary Care Unavailable Carly Carrasquillo Referring Unavailabl e Ravin BERMUDEZ, Blue Primary Care Unavailable Dain Bishop Attending Unavailable Dain Bishop Referring Unavailable Julio, Maida Primary Care Unavailable Dain Serarno Referring Unavailable Dain Serrano Attending Unavailable Aleksander OUTREACH LIBRARIAN, Genna Referring Unavailable Aleksander OUTREACH LIBRARIAN, Genna Attending Unavailable Julio Maida Primary Care Unavailable Ravin BERMUDEZ, Blue Referring Unavailable Ravin BERMUDEZ, Blue Primary Care Unavailable Dain Bishop Attending Unavailable [place], Maida Primary Care Unavailable [place], Maida Referring Unavailable Nile Johnson Attending Unavailable Ravin BERMUDEZ, Blue Primary Care Unavailable Cristóbal Ford Attending Unavailable Ravin BERMUDEZ, Blue Referring Unavailable Aleksander OUTREACH LIBRARIAN, Genna Attending Unavailable Julio, Maida Referring Unavailable [place], Maida Primary Care Unavailable Aleksander OUTREACH LIBRARIAN, Genna Attending Unavailable Aleksander OUTREACH LIBRARIAN, Genna Referring Unavailable [place], Maida Primary Care Unavailable Aleksander OUTREACH LIBRARIAN, Genna Referring Unavailable Aleksander OUTREACH LIBRARIAN, Genna Attending Unavailable Ravin BERMUDEZ, Blue Primary Care Unavailable Dain Serrano Referring Unavailable Wayseth BERMUDEZ, Blue Primary Care Unavailable Dain Serrano Attending Unavailable Aleksander OUTREACH LIBRARIAN, Genna Attending Unavailable Aleksander OUTREACH LIBRARIAN, Genna Consulting Unavailable Cristóbal Ford Referring Unavailable [place], Maida Primary Care Unavailable Cristóbal Ford Attending Unavailable Wayt PA, Blue Primary Care Unavailable Wayt PA, Blue Referring Unavailable Julio, Maida Primary Care Unavailable [place], Maida Referring Unavailable Prah, Cristóbal Attending Unavailable Aleksander OUTREACH LIBRARIAN, Genna Attending Unavailable Wayt PA, Blue Primary Care Unavailable Wayt PA, Blue Referring Unavailable [place], Maida Primary Care Unavailable Robotham, Yvonne Referring Unavailable Robotham, Yvonne Attending Unavailable Pratyler, Cristóbal Attending Unavailable Prah, Cristóbal Referring Unavailable Julio, Maida Primary Care Unavailable Aleksander OUTREACH LIBRARIAN, Genna Attending Unavailable Julio, Maida Primary Care Unavailable [place], Maida Referring Unavailable Navya, Dain Referring Unavailable Wayt PA, Blue Primary Care Unavailable Navya, Dain Attending Unavailable Julio, Maida Primary Care Unavailable [place], Maida Referring Unavailable Wayt PA, Blue Attending Unavailable Pratyler, Cristóbal Attending Unavailable Wayt PA, Blue Primary Care Unavailable Wayt PA, Blue Referring Unavailable Pratyler, Cristóbal Attending Unavailable Wayt PA, Blue Primary Care Unavailable Wayt PA, Blue Referring Unavailable Julio, Maida Primary Care Unavailable Julio, Maida Referring Unavailable Avani, Imperial Attending Unavailable Julio, Maida Primary Care Unavailable Avani, Imperial Attending Unavailable Navya, Dain Referring Unavailable Avani, Jesus Attending Unavailable Wayt PA, Blue Primary Care Unavailable [place], Maida Primary Care Unavailable Avani, Jesus Attending Unavailable Aleksander OUTREACH LIBRARIAN, Genna Attending Unavailable Wayt PA, Blue Primary Care Unavailable Wayt PA, Blue Referring Unavailable Julio, Maida Primary Care Unavailable [place], Maida Referring Unavailable Pratyler, Cristóbal Attending Unavailable [place], Maida Primary Care Unavailable Julio, Maida Referring Unavailable Prah, Cristóbal Attending Unavailable Aleksander OUTREACH LIBRARIAN, Genna Attending Unavailable [place], Maida Referring Unavailable [place], Maida Primary Care Unavailable Aleksander OUTREACH LIBRARIAN, Genna Attending Unavailable [place], Maida Primary Care Unavailable Julio, Maida Referring Unavailable Robotham, Yvonne Attending Unavailable [place], Maida Referring Unavailable Wayt PA, Blue Primary Care Unavailable [place], Maida Primary Care Unavailable Avani, Imperial Attending Unavailable [place], Maida Primary Care Unavailable Julio, Maida Referring Unavailable Prah, Cristóbal Attending Unavailable Pratyler, Cristóbal Attending Unavailable Wayt PA, Blue Primary Care Unavailable Blue Martin Referring Unavailable [place], Maida Primary Care Unavailable Julio, Maida Referring Unavailable Blue Martin Attending Unavailable Julio, Maida Primary Care Unavailable Julio Maida Referring Unavailable Cristóbal Ford Attending Unavailable Cristóbal Ford Attending Unavailable [place], Maida Referring Unavailable [place], Maida Primary Care Unavailable Julio, Maida Primary Care Unavailable Julio, Maida Referring Unavailable Cristóbal Ford Attending Unavailable [place], Maida Primary Care Unavailable Julio, Maida Referring Unavailable Yvonne Hinojosa Attending Unavailable Dain Serrano Referring Unavailable Blue Martin Primary Care Unavailable Dain Serrano Attending Unavailable Allergies Allergy Classification Reported Allergen(s) Allergy Type Date of Onset Reaction(s) Facility (7 sources) Latex Allergy to substance 08-12-2024 blisters [facility] (1 source) Latex Drug allergy (disorder) 11-25-2024 [facility] Repository Medications Current Medications Medication Drug Class(es) Dates Sig (Normalized) Sig (Original) Biotin (19 sources) Start: 01-09-2024 Biotin (Hair, Skin And Nails (Biotin)) 10,000 mcg tablet,chewable Active ug PO DAILY January 09, 2024 10:44am Start: 07-31-2023 End: 01-09-2024 Biotin (Hair, Skin And Nails (Biotin)) 10,000 mcg tablet,chewable Discontinued ug PO July 31, 2023 1:00am January 09, 2024 10:46am Start: 07-31-2023 Biotin (Hair, Skin And Nails (Biotin)) 10,000 mcg tablet,chewable Active MCG PO July 31, 2023 1:00am BIOTIN PO Take b y mouth daily. 0 Active Calcium Carbonate (1 source) take 1 tablet by mouth twice daily Calcium Carbonate (CALCIUM 600 PO) Take 1 tablet by mouth 2 times daily. 0 Active [place] [facility] 7.5 mg-7.5 mg/5 mL oral liquid (1 source) Start: 2 take 1 dose by mouth every eight hours as needed for cough and congestion [place] [facility] 7.5 mg-7.5 mg/5 mL oral liquid Dose = 20 mL, Oral, q8h, PRN as needed for cough and congestion, # 473 mL, 1 Refill(s), Pharmacy: [facility]/pharmacy #[id number], URI with cough and congestion, 171.5, cm, 06/07/22 10:04:00 EST, Height Start Date: 06/07/22 Status: Ordered cholecalciferol 0.025 mg oral capsule (20 sources) Vitamin D Start: take 1 capsule by mouth once daily Cholecalciferol (Vitamin D3) 1,000 unit capsule Active 1000 U PO DAILY February 20, 2018 12:00am take 1 capsule by mouth once coco ly cholecalciferol 50 MCG (2000 UT) capsule Take 1 capsule by mouth daily. 0 Active dexamethasone 0.001 mg/mg / neomycin 0.0035 mg/mg / polymyxin b 10 unt/mg ophthalmic ointment (1 source) Aminoglycoside Antibacterial, Polymyxin-class Antibacterial, Corticosteroid Start: 11-25-2024 Neomycin-Polymyxin B-Dexameth 3.5 mg/g-10,000 unit/g-0.1 % ointment Active OPHTHALMIC THREE TIMES A DAY November 25, 2024 12:00am doxycycline hyclate 100 mg oral capsule (3 sources) Tetracycline-class Drug Start: 05-24-2022 take 100 mg by mouth once daily Doxycycline Hyclate Active 100 MG PO DAILY May 24, 2022 12:00am Start: 05-22-2022 doxycycline mo nohydrate 100 mg oral tablet Dose : 100 mg = 1 tab(s), Oral, qDay, 0 Refill(s), 102.5 Start Date: 05/22/22 Status: Ordered FLUoxetine 20 mg oral capsule (2 sources) Serotonin Reuptake Inhibitor Start: 05-24-2022 take 20 mg by mouth once daily Fluoxetine Active 20 MG PO DAILY May 24, 2022 12:00am Start: 05-22-2022 End: 07-21-2022 FLUoxetine 20 mg oral tablet Dose : 10 mg = 0.5 tab(s), Oral, qDay, # 15 tab(s), 1 Refill(s), Pharmacy: [facility]/pharmacy #[id number], 171.5, cm, 05/22/22 16:11:00 EST, Height Start Date: 05/22/22 Stop Date: 07/21/22 Status: Ordered loratadine 10 mg oral tablet (1 source) take 1 tablet by mouth once daily as needed Loratadine 10 MG tablet Take 1 tablet by mouth daily as needed. 0 Active meloxicam 15 mg oral tablet (20 sources) Nonsteroidal Anti-inflammatory Drug Start: take 7.5 mg by mouth once daily Meloxicam 15 mg tablet Active 7.5 mg PO DAILY May 20, 2024 12:14pm Start: 04-08-2024 End: 05-20-2024 take 3.75 mg by mouth once daily as needed Meloxicam 15 mg tablet Discontinued 3.75 mg PO DAILY as needed April 08, 2024 11:44am May 20, 2024 12:14pm Start: 02-05-2024 End: 04-08-2024 take 1 tablet by mouth once daily as needed Meloxicam 15 mg tablet Discontinued 15 mg PO DAILY as needed February 05, 2024 12:00am April 08, 2024 11:46am Start: 11-09-2020 End: 07-30-2021 take 1 tablet by mouth once daily Meloxicam (Mobic) 15 mg tablet Discontinued 15 mg PO DAILY November 09, 2020 12:00am July 30, 2021 3:34pm Multiple Vitamins-Minerals (One Daily Multivitamin Women) tablet (1 source) take 1 tablet by mouth once daily Multiple Vitamins-Minerals (One Daily Multivitamin Women) tablet Take 1 tablet by mouth daily. 0 Active multivitamin (Theragran) tablet (2 sources) take 1 tablet by mouth once daily multivitamin (Theragran) tablet Take 1 tablet by mouth daily. 0 Active multivitamin capsule (20 sources) Start: 02-20-2018 take 1 capsule by mouth once daily multivitamin capsule Active 1 CAP PO DAILY February 19, 2018 11:00pm Start: 02-20-2018 take 1 capsule by mo [facility] once daily multivitamin capsule Active 1 CAP PO DAILY February 20, 2018 12:00am Multivitamin capsule (7 sources) Start: 02-20-2018 Multivitamin capsule Active 1 NMA PO DAILY February 20, 2018 12:00am oxyCODONE hydrochloride 5 mg oral tablet (10 sources) Opioid Agonist Start: 09-23-2024 take 5-10 mg by mouth every six hours as needed Oxycodone 5 mg tablet Active 5 - 10 mg PO EVERY 6 HOURS as needed September 23, 2024 12:00am Start: 04-08-2024 End: 05-20-2024 take 1 tablet by mouth every six hours as needed Oxycodone 5 mg tablet Discontinued 5 mg PO EVERY 6 HOURS as needed April 08, 2024 12:00am May 20, 2024 12:14pm 14 ml pertuzumab 30 mg/ml injection (20 sources) HER2/best Receptor Antagonist Start: 06-08-2024 Pertuzumab (Perjeta) 420 mg/14 mL (30 mg/mL) solution Active 420 mg .Route Q21D June 08, 2024 4:16pm 420 mg every 21 days; INTRAVENOUSLY FOR BREAST CANCER; EVERY 21 DAYS Start: 01-09-2024 End: 06-08-2024 Pertuzumab (Perjeta) 420 mg/ 14 mL (30 mg/mL) solution Discontinued mg .Route January 09, 2024 12:00am June 08, 2024 4:17pm INTRAVENOUSLY FOR BREAST CANCER; EVERY 21 DAYS Start: 06-27-2022 pertuzumab (Pe rjeta) 420 MG/14ML injection Every 21 days 0 06/27/2022 Active pyridoxine (4 sources) Pyridoxine HCl (VITAMIN B-6 PO) Take by mouth daily. 0 Active simvastatin 20 mg oral tablet (20 sources) HMG-CoA Reductase Inhibitor Start: 10-23-19 End: 07-13-19 take 1 tablet by mouth at bedtime Simvastatin 20 mg tablet Active 20 mg PO AT BEDTIME July 13, 2024 1:43pm spironolactone 100 mg oral tablet (20 sources) Aldosterone Antagonist Start: 05-22-20 take 100 mg by mouth once daily Spironolactone Active 100 MG PO DAILY May 24, 2022 12:00am Start: 10-22-2021 End: 01-17-2022 Spironolactone 50 mg tablet Discontinued NMA PO October 22, 2021 12:00am January 17, 2022 2:27pm Start: 10-22-2021 End: 01-17-2022 Spironolactone Discontinued EACH PO October 22, 2021 12:00am January 17, 2022 2:27pm tamoxifen 20 mg oral tablet (20 sources) Estrogen Agonist/Antagonist Start: 02-02-2024 End: 04-14-2024 take 1 tablet by mouth once daily Tamoxifen 20 mg tablet Active 60 mg PO DAILY 270 April 14, 2024 9:23am Start: 01-09-2024 End: 02-02-2024 take 1 tablet by mouth three times daily Tamoxifen 20 mg tablet Discontinued 20 mg PO THREE TIMES A DAY January 09, 2024 10:46am February 02, 2024 9:26am Start: 01-27-2023 End: 01-09-2024 take 1 tablet by mouth twice daily Tamoxifen 20 mg tablet Discontinued 20 mg PO TWICE A DAY 180 90 February 05, 2023 8:07am January 09, 2024 10:46am Start: 06-27-2022 End: 09-30-2022 take 1 tablet by mouth twice daily Tamoxifen 20 mg tablet Discontinued 0 .ROUTE .COMPLEX 180 July 23, 2022 3:57pm September 30, 2022 2:59pm TAKE ONE TABLET BY MOUTH TWICE A DAY trastuzumab-anns 21 mg/ml injectable solution (16 sources) HER2/best Receptor Antagonist Start: 06-08-2024 [facility]umab-Anns ([facility] 420 mg recon soln Active 609 mg .Route Q21D 2 June 08, 2024 4:13pm 609 mg every 21 days; INTRAVENOUSLY FOR BREAST CANCER TREATMENT; EVERY 21 DAYS Start: 01-09-2024 End: 06-08-2024 Trastuzumab-Anns (Kanjinti) 420 mg recon soln Discontinued mg .Route January 09, 2024 12:00am June 08, 2024 4:17pm INTRAVENOUSLY FOR BREAST CANCER TREATMENT; EVERY 21 DAYS Start: 10-01-2023 Kanjinti 420 M G Every 21 days 0 10/01/2023 Active Vitamin B6 (13 sources) Start: 11-04-2024 vitamin b6 Act denzel PO DAILY November 04, 2024 12:00am Start: 01-02-2023 End: 10-14-2024 take 1 tablet by mouth once daily Pyridoxine (Vitamin B6) 50 mg tablet Discontinued 50 mg PO DAILY January 02, 2023 12:00am October 14, 2024 10:05am WHEAT DEXTRIN (1 source) Wheat Dextrin (B ENEFIBER PO) Take by mouth at bedtime. 0 Active Completed/Discontinued Medications Medication Drug Class(es) Dates Sig (Normalized) Sig (Original) acetaminophen 500 mg oral tablet (2 sources) Start: 10-10-2023 End: 10-10-2023 acetaminophen (Tylenol) tablet 1,000 mg acetaminophen 325 mg / HYDROcodone bitartrate 5 mg oral tablet (20 sources) Opioid Agonist Start: 06-17-2022 End: 08-29-2022 Hydrocodone-Acetamin ophen 5-325 mg tablet Discontinued 1 {tbl} PO EVERY 6 HOURS as needed for pain 03 12June 18, 2022 June 21, 2022 1:00am June 22, 2022 1:13am Start: 06-17-2022 End: 08-29-2022 take 1 tablet by mouth every six hours Hydrocodone-Acetaminophen Discontinued 1 TABLET PO EVERY 6 HOURS 03 12June 18, 2022 June 22, 2022 1:13am acetaminophen 325 mg / oxyCODONE hydrochloride 5 mg oral tablet (20 sources) Opioid Agonist Start: 12-05-2014 End: 05-29-2017 Oxycodone-Acetaminophen 1 TABLET tablet Discontinued 1 - 2 {tbl} PO EVERY 4 HOURS NEEDED as needed for Pain December 05, 2014 12:00am May 29, 2017 3:08pm Start: 12-05-2014 End: 05-29-2017 take 1 tablet by mouth every four hours as needed Oxycodone-Acetaminophen Discontinued 1 - 2 TABLET PO EVERY 4 HOURS NEEDED December 05, 2014 12:00am May 29, 2017 3:08pm ALPRAZolam 0.25 mg disintegrating oral tablet (20 sources) Benzodiazepine Start: 10-10-2023 End: 10-10-2023 ALPRAZolam (Xanax) disintegrating tablet 0.25 mg Start: 06-26-2022 take 1 tablet by haleigh th twice daily as needed for anxiety Alprazolam 0.25 mg tablet Active 0.25 mg PO TWICE A DAY as needed for anxiety June 26, 2022 1:00am Start: 02-20-2018 End: 06-26-2022 Alprazolam (Xanax) 1 mg tabl et Discontinued 1 mg PO 2 to 3 times per day as needed for Anxiety February 20, 2018 12:00am June 26, 2022 10:14am amoxicillin 500 mg / clavulanate 125 mg oral tablet (20 sources) Penicillin-class Antibacterial Start: 06-15-2024 End: 06-15-2024 Amoxicillin-Pot Clavulanate (Augmentin) 500-125 mg tablet Discontinued 1 {tbl} PO Q8H June 15, 2024 1:00am June 15, 2024 12:58pm Start: 06-15-2024 End: 07-22-2024 Amoxicillin-Pot Clavulanate (Augmentin) 500-125 mg tablet Discontinued 1 {tbl} PO THREE TIMES A DAY June 15, 2024 1:00am July 22, 2024 12:31pm Start: 09-08-2023 End: 10-23-2023 Amoxicillin-Pot Clavulanate 875-125 mg tablet Discontinued 1 {tbl} PO TWICE A DAY September 08, 2023 12:00am October 23, 2023 1:07pm Start: 05-24-2022 take 1 tablet by h[place] twice daily Amoxicillin-Pot Clavulanate Active 1 TABLET PO TWICE A DAY May 24, 2022 12:00am benzonatate 100 mg oral capsule (20 sources) Non-narcotic Antitussive Start: 06-07-2022 End: 09-30-2022 take 1 capsule by mouth twice daily as needed for cough Benzonatate 100 mg Capsule Discontinued 100 mg PO TWICE A DAY as needed for Cough June 14, 2022 1:00am September 30, 2022 3:37pm calcium chloride 0.0014 meq/ml / potassium chloride 0.004 meq/ml / sodium chloride 0.103 meq/ml / sodium lactate 0.028 meq/ml injectable solution (4 sources) Start: 10-10-2023 End: 10-10-2023 lactated ringers infusion celecoxib 100 mg oral capsule (20 sources) Nonsteroidal Anti-inflammatory Drug Start: 12-06-2021 End: 01-17-2022 take 1 capsule by mouth twice daily Celecoxib (Celebrex) 100 mg capsule Discontinued 100 mg PO TWICE A DAY December 06, 2021 12:00am January 17, 2022 2:27pm Do not take in conjunction with other NSAIDs. Tylenol is okay. clobetasol propionate 0.5 mg/ml topical cream (14 sources) Corticosteroid Start: 11-13-2023 End: 10-14-2024 Clobetasol 0.05 % cream Discontinued 1 NMA TOPICAL TWICE A DAY as needed January 09, 2024 10:45am October 14, 2024 10:05am dexamethasone 4 mg oral tablet (14 sources) Corticosteroid Start: 08-22-2022 End: 03-13-2023 take 2 tablets by mouth twice daily Dexamethasone 4 mg tablet Discontinued 8 mg PO .COMPLEX August 22, 2022 12:00am March 13, 2023 1:51pm Take 8 mg orally twice daily the day before, day of and day after chemotherapy ONLY Start: 08-22-2022 End: 03-13-2023 take 8 mg by mouth twice daily Dexamethasone Discontin ued 8 MG PO .COMPLEX August 22, 2022 12:00am March 13, 2023 1:51pm Take 8 mg orally twice daily the day before, day of and day after chemotherapy ONLY dextromethorphan hydrobromide 1.5 mg/ml / pyrilamine maleate 1.5 mg/ml oral solution (20 sources) Uncompetitive W-nrxsea-W-aspartate Receptor Antagonist, Sigma-1 Agonist Start: 06-14-2022 End: 09-30-2022 take 1 mL by mouth every eight hours Pyrilamine-Dextromethorphan ([place] Dm) 7.5-7.5 mg/5 mL Liquid Discontinued 20 mL PO Q8H June 14, 2022 1:00am September 30, 2022 3:36pm Start: 06-14-2022 End: 09-30-2022 take 1 mL by mouth every eight hours Pyrilamine-Dextromethorphan ([place] Dm) 7.5-7.5 mg/5 mL Liquid Discontinued 20 ML PO Q8H June 14, 2022 1:00am September 30, 2022 3:36pm 1 ml diphenhydrAMINE hydrochloride 50 mg/ml cartridge (2 sources) Histamine-1 Receptor Antagonist Start: 10-10-2023 End: 10-10-2023 diphenhydrAMINE (BENADryl) injection 12.5 mg 2 ml fentaNYL 0.05 mg/ml injection (4 sources) Opioid Agonist Start: 10-10-2023 End: 10-10-2023 fentaNYL (Sublimaze) injection 50 mcg Start: 10-10-2023 End: 10-10-2023 fentaNYL (Sublimaze) injecti on 25 mcg furosemide 40 mg oral tablet (20 sources) Loop Diuretic Start: 10-31-2022 End: 04-19-2024 take 1 tablet by mouth once daily Furosemide (Lasix) 40 mg tablet Discontinued 40 mg PO DAILY 90 90 June 27, 2023 12:28pm November 14, 2023 3:25pm gabapentin 100 mg oral capsule (2 sources) Anti-epileptic Agent Start: 10-10-2023 End: 10-10-2023 gabapentin (Neurontin) capsule 100 mg glutamine 500 mg oral capsule (11 sources) Amino Acid Start: 01-02-2023 End: 01-09-2024 take 1 capsule by mouth once daily Glutamine 500 mg capsule Discontinued 500 mg PO DAILY January 02, 2023 12:00am January 09, 2024 10:45am ibuprofen 600 mg oral tablet (1 source) Nonsteroidal Anti-inflammatory Drug Start: 05-03-2020 End: 05-10-2020 ibuprofen 600 mg oral tablet Dose : 600 mg = 1 tab(s), Oral, q6h, # 28 tab(s), 0 Refill(s), Pharmacy: [facility]/pharmacy #[id number], 175, cm, 05/03/20 11:09:00 EST, Height, kg, 05/03/20 11:09:00 EST, Dosing Weight Start Date: 05/03/20 Stop Date: 05/10/20 Status: Ordered labetalol (Normodyne,Trandate ) injection 5 mg (2 sources) Start: 10-10-2023 End: 10-10-2023 labetalol (Normodyne,Trandat e) injection 5 mg Lactobacillus Combination No.8 (Adult Probiotic) 3 billion cell capsule (20 sources) Start: 02-20-2018 End: 01-09-2024 take 3 capsules by mouth once daily Lactobacillus Combination No.8 (Adult Probiotic) 3 billion cell capsule Discontinued 3000 NMA PO DAILY February 20, 2018 12:00am January 09, 2024 10:45am Start: 02-20-2018 take 3 capsules by m outh once daily Lactobacillus Combination No.8 (Adult Probiotic) 3 billion cell capsule Active 3000 MMU CELLS PO DAILY February 19, 2018 11:00pm Start: 02-20-2018 take 3 capsules by m outh once daily Lactobacillus Combination No.8 (Adult Probiotic) 3 billion cell capsule Active 3000 MMU CELLS PO DAILY February 20, 2018 12:00am lidocaine 25 mg/ml / prilocaine 25 mg/ml topical cream (20 sources) Antiarrhythmic, Amide Local Anesthetic Start: 06-26-2022 Lidocaine-prilocaine 2.5-2.5 % cream APPLY NEEDED FOR PORT ACCESS 0 06/26/2022 Active Start: 06-26-2022 End: 10-14-2024 Lidocaine-Prilocaine 2.5-2.5 % cream Discontinued 1 NMA TOPICAL ONCE as needed for port access June 26, 2023 2:37pm October 14, 2024 10:31am Start: 06-26-2022 End: 06-26-2023 Lidocaine-Prilocaine Active 1 APPLIC TOPICAL ONCE June 26, 2023 2:37pm methylPREDNISolone 4 mg oral tablet (12 sources) Corticosteroid Start: 02-20-2024 End: 03-18-2024 Methylprednisolone 4 mg tablets,dose pack Discontinued mg PO February 20, 2024 12:00am March 18, 2024 11:16am Start: 01-17-2022 take 1 tablet by haleigh th once daily Methylprednisolone (Medrol (Arnie)) 4 mg tablets,dose pack Active 4 MG PO DAILY January 16, 2022 11:00pm minocycline 100 mg oral capsule (20 sources) Tetracycline-class Drug Start: 02-20-2018 End: 01-12-2022 take 1 capsule by mouth twice daily Minocycline 100 mg capsule Discontinued 100 mg PO TWICE A DAY February 20, 2018 12:00am October 22, 2021 3:02pm naproxen 500 mg oral tablet (20 sources) Nonsteroidal Anti-inflammatory Drug Start: 12-05-2014 End: 02-20-2018 take 1 tablet by mouth twice daily Naproxen 500 MG tablet Discontinued 500 mg PO TWICE A DAY December 05, 2014 12:00am February 20, 2018 3:41pm nitrofurantoin, macrocrystals 25 mg / nitrofurantoin, monohydrate 75 mg oral capsule (5 sources) Nitrofuran Antibacterial Start: 10-26-2024 End: 10-31-2024 take 1 capsule by mouth every twelve hours at mealtime Nitrofurantoin Monohyd/M-Cryst (Macrobid) 100 mg capsule Discontinued 100 mg PO Q12H 10 October 26, 2024 12:00am October 30, 2024 12:00am October 26, 2024 2:49pm must administer with a meal/food 2 ml ondansetron 2 mg/ml injection (20 sources) Serotonin-3 Receptor Antagonist Start: 10-10-2023 End: 10-10-2023 ondansetron (Zofran) injection 4 mg Start: 06-27-2022 End: 06-20-2023 take 1 tablet by mouth every twelve hours as needed for nausea and vomiting Ondansetron Hcl 8 mg tablet Discontinued 8 mg PO Q12H as needed for nausea and vomiting August 22, 2022 10:03am June 20, 2023 12:12pm monobasic potassium phosphat e 0.0408 meq/ml oral solution (13 sources) Start: 09-19-2022 End: 09-24-2022 Potassium Phosphate, Monobas ic 500 mg tablet,soluble Discontinued 1000 mg PO DAILY 10 September 19, 2022 12:00am September 23, 2022 12:00am September 24, 2022 12:05am Start: 09-19-2022 End: 09-24-2022 take 1000 mg by mouth once daily Potassium Phosphate, Monobasic Discontinued 1000 MG PO DAILY 10 September 19, 2022 12:00am September 24, 2022 12:05am prochlorperazine 5 mg oral tablet (19 sources) Phenothiazine Start: 06-27-2022 End: 06-20-2023 take 1 tablet by mouth three times daily as needed for nausea and vomiting Prochlorperazine Maleate (Compazine) 5 mg tablet Discontinued 5 mg PO THREE TIMES A DAY as needed for nausea and vomiting June 27, 2022 1:00am June 20, 2023 12:12pm 5 ml sodium chloride 9 mg/ml injection (20 sources) Start: 10-10-2023 End: 10-10-2023 sodium chloride 0.9 % bolus 500 mL Start: 10-10-2023 End: 10-10-2023 sodium chloride 0.9 % infusi on Start: 10-10-2023 End: 10-10-2023 sodium chloride 0.9% (NS) fl ush 10 mL Problems Active Problems Problem Classification Problem Date Documented Da te Episodic/Chronic Administrative/social admission (14 sources) First encounter by subject; Translations: [Persons encountering health services in other specified circumstances] 01-10-2024 Episodic Allergic reactions (2 sources) Weal; Translations: [Urticaria, unspecified] 11-04-2024 Episodic Anxiety disorders (9 sources) Anxiety about body function or health; Translations: [Other specified anxiety disorders] 06-26-2022 Chronic Cancer of breast (20 sources) Malignant tumor of breast ; Translations: [Malignant neoplasm of unspecified site of unspecified female breast] Onset: 06-06-2022 Chronic Comment on above: Invasive Ductal Canc er L breast, ER 95% +, CO 10% +, Her2 3+, initially started with redness of the breast and given antibiotics.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 BRCA1 and 2 negative.Started therapy with TCHP on 06/27/2022. ctDNA on 06/27/[address] c/a/p on 08/22/2022 shows Partial response with decrease in L breast masses, resolution of L axillary nodes, persistent bone metastases.ctDNA on 08/29/2022 was 0.04.Finished C6 TCHP + Tamoxifen on 10/11/2022.On maintenance Perjeta +Herceptin analogue with Tamoxifen.Echocardiogram 10/29/2022 EF 60%.ctDNA on 10/31/2022 was Zero.Bone scan on 12/05/2022 shows decreased activities with remaining R scapula, R calvarium lesion is old from 2016 and not malignant.PET/CT on 12/17/2022 shows resolution of primary and secondary tumors, slight activity is R rib may be healing fracture. Echocardiogram on 01/24/23 showed EF 60%.CT on 03/27/2023 reviewed, shows stable bone metastases.PET/CT 07/15/23 negative. Echocardiogram on 08/15/2023 shows EF 60%. ctDNA on 07/31/2023 was 0.06.Echocardiogram on 11/19/2023 shows EF 60%.Echocardiogram February 10, 2024 normal left ventricular ejection fraction 65%PET/CT 01/06/2024 , shows no evidence of disease.Echo on 05/19/2024 shows EF 60%.Comes for C37.Counts and Chemistry reviewed, OK for therapy Invasive Ductal Canc er L breast, ER 95% +, CO 10% +, Her2 3+, initially started with redness of the breast and given antibiotics.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 BRCA1 and 2 negative.Started therapy with TCHP on 06/27/2022. ctDNA on 06/27/[address] c/a/p on 08/22/2022 shows Partial response with decrease in L breast masses, resolution of L axillary nodes, persistent bone metastases.ctDNA on 08/29/2022 was 0.04.Finished C6 [facility]CHP + Tamoxifen on 10/11/2022.On maintenance Perjeta +Herceptin analogue with Tamoxifen.Echocardiogram 10/29/2022 EF 60%.ctDNA on 10/31/2022 was Zero.Bone scan on 12/05/2022 shows decreased activities with remaining R scapula, R calvarium lesion is old from 2016 and not malignant.PET/CT on 12/17/2022 shows resolution of primary and secondary tumors, slight activity is R rib may be healing fracture. Echocardiogram on 01/24/23 showed EF 60%.CT on 03/27/2023 reviewed, shows stable bone metastases.PET/CT 07/15/23 negative. Echocardiogram on 08/15/2023 shows EF 60%. ctDNA on 07/31/2023 was 0.06.Echocardiogram on 11/19/2023 shows EF 60%.Echocardiogram February 10, 2024 normal left ventricular ejection fraction 65%PET/CT 01/06/2024 , shows no evidence of disease.Echo on 05/19/2024 shows EF 60%.Comes for C38.Counts and Chemistry reviewed, OK for therapy Invasive Ductal Canc er L breast, ER 95% +, CO 10% +, Her2 3+, initially started with redness of the breast and given antibiotics.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 BRCA1 and 2 negative.Started therapy with TCHP on 06/27/2022. ctDNA on 06/27/[address] c/a/p on 08/22/2022 shows Partial response with decrease in L breast masses, resolution of L axillary nodes, persistent bone metastases.ctDNA on 08/29/2022 was 0.04.Finished C6 TCHP + Tamoxifen on 10/11/2022.On maintenance Perjeta +Herceptin analogue with Tamoxifen.Echocardiogram 10/29/2022 EF 60%.ctDNA on 10/31/2022 was Zero.Bone scan on 12/05/2022 shows decreased activities with remaining R scapula, R calvarium lesion is old from 2017 and not malignant.PET/CT on 12/17/2022 shows resolution of primary and secondary tumors, slight activity is R rib may be healing fracture. Echocardiogram on 01/24/23 showed EF 60%.CT on 03/27/2023 reviewed, shows stable bone metastases.PET/CT 07/15/23 negative. Echocardiogram on 08/15/2023 shows EF 60%. ctDNA on 07/31/2023 was 0.06.Echocardiogram on 11/19/2023 shows EF 60%.Echocardiogram February 10, 2024 normal left ventricular ejection fraction 65%PET/CT 01/06/2024 , shows no evidence of disease.Echo on 05/19/2024 shows EF 60%. Invasive Ductal Canc er L breast, ER 95% +, CO 10% +, Her2 3+, initially started with redness of the breast and given antibiotics.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 BRCA1 and 2 negative.Started therapy with TCHP on 06/27/2022. ctDNA on 06/27/[address]22 [address] c/a/p on 08/22/2022 shows Partial response with decrease in L breast masses, resolution of L axillary nodes, persistent bone metastases.ctDNA on 08/29/2022 was 0.04.Finished C6 TCHP + Tamoxifen on 10/11/2022.On maintenance Perjeta +Herceptin analogue with Tamoxifen.Echocardiogram 10/29/2022 EF 60%.ctDNA on 10/31/2022 was Zero.Bone scan on 12/05/2022 shows decreased activities with remaining R scapula, R calvarium lesion is old from 2017 and not malignant.PET/CT on 12/17/2022 shows resolution of primary and secondary tumors, slight activity is R rib may be healing fracture. Echocardiogram on 01/24/23 showed EF 60%.CT on 03/27/2023 reviewed, shows stable bone metastases.PET/CT 07/15/23 negative. Echocardiogram on 08/15/2023 shows EF 60%. ctDNA on 07/31/2023 was 0.06.Echocardiogram on 11/19/2023 shows EF 60%.Echocardiogram February 10, 2024 normal left ventricular ejection fraction 65%PET/CT 01/06/2024 , shows no evidence of disease.Echo on 05/19/2024 shows EF 60%.Comes for C42. Counts and chemistry reviewed, ok for therapy. Deficiency and other anemia (9 sources) Anemia; Translations: [Anemia, unspecified] 04-29-2024 Episodic Comment on above: Postoperative after knee replacement in March 2024 Diseases of mouth; excluding dental (17 sources) Inflammatory disease of mucous membrane; Translations: [Oral mucositis (ulcerative), unspecified] 08-22-2022 Episodic Disorders of lipid metabolism (9 sources) Hyperlipidemia; Translations: [Hyperlipidemia, unspecified] Onset: 08-26-2024 04-19-2021 Chronic E Codes: Adverse effects of medical drugs (20 sources) Adverse reaction to drug; Translations: [Adverse effect of unspecified topical agent, initial encounter] 08-22-2022 Episodic Essential hypertension (20 sources) Hypertensive disorder; Translations: [Essential (primary) hypertension] 05-31-2022 Chronic Genitourinary symptoms and ill-defined conditions (1 source) Urgency of urination; Translations: [Urgency of urination] Onset: 10-28-2024 Episodic Maintenance chemotherapy; radiotherapy (20 sources) H/O: malignant neoplasm; Translations: [Encounter for antineoplastic immunotherapy] Onset: 09-02-2024 06-27-2022 Chronic Comment on above: EF, counts and chemi stry reviewed, OK for therapy. Counts and chemistry are ok for therapy. Menopausal disorders (7 sources) Postmenopausal bleeding; Translations: [Postmenopausal bleeding] Onset: 08-12-2023 05-13-2023 Chronic Miscellaneous mental health disorders (9 sources) Anxiety about body function or health; Translations: [Other symptoms and signs involving emotional state] 06-26-2022 Episodic Mood disorders (1 source) Depressive disorder 05-22-2022 Chronic Nonspecific chest pain (20 sources) Left sided chest pain; Translations: [Chest pain, unspecified] 05-31-2022 Episodic Osteoarthritis (20 sources) Bilateral osteoarthritis of knees; Translations: [Bilateral primary osteoarthritis of knee] Chronic Other aftercare (4 sources) Drug therapy finding; Translations: [Encounter for therapeutic drug level monitoring] 01-02-2023 Episodic Other aftercare (18 sources) Encounter for therapeutic drug level monitoring; Translations: [Encounter for therapeutic drug monitoring] Onset: 09-06-2024 01-02-2023 Episodic Other aftercare (2 sources) Prevention status; Translations: [intermediate manager (current) use of selective estrogen 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 (SERMs)] 05-13-2023 Episodic Other aftercare (1 source) Surgical follow-up; Translations: [Encounter for follow-up examination after completed treatment for conditions other than malignant neoplasm] 10-28-2023 Episodic Other aftercare (2 sources) Encounter for follow-up examination after completed treatment for conditions other than malignant neoplasm; Translations: [Encounter for follow-up examination after completed treatment for conditions other than malignant neoplasm] Onset: 10-28-2023 Episodic Other aftercare (2 sources) intermediate manager (current) use of selective estrogen 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 (SERMs); Translations: [intermediate manager (current) use of selective estrogen 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 (serms)] Onset: 08-12-2023 Episodic Other aftercare (7 sources) Long-term current use of drug therapy; Translations: [Encounter for therapeutic drug level monitoring] 03-10-2024 Episodic Comment on above: Echocardiogram on 02/10/2024 EF 65%. Other aftercare (2 sources) Other longterm (current) drug therapy; Translations: [Other intermediate manager (current) drug therapy] Onset: 05-20-2024 Episodic Other bone disease and musculoskeletal deformities (20 sources) Segmental and somatic dysfunction; Translations: [Segmental and somatic dysfunction of cervical region] 02-27-2018 Episodic Other bone disease and musculoskeletal deformities (18 sources) Disorder of skull; Translations: [Disorder of bone, unspecified] 06-26-2022 Episodic Other bone disease and musculoskeletal deformities (3 sources) Disorder of bone, unspecified; Translations: [Disorder of bone and cartilage, unspecified] Onset: 09-24-2022 Episodic Other circulatory disease (15 sources) Device in situ; Translations: [Presence of other vascular implants and grafts] 08-08-2022 Chronic Comment on above: 06/2022 Other circulatory disease (9 sources) Bleeding; Translations: [Hemorrhage, not elsewhere classified] 04-24-2023 Episodic Other circulatory disease (2 sources) Hemorrhage, not elsewhere classified; Translations: [Hemorrhage, unspecified] 04-24-2023 Episodic Other connective tissue disease (19 sources) Iliotibial band friction syndrome; Translations: [Iliotibial band syndrome, right leg] 07-31-2021 Episodic Other connective tissue disease (10 sources) 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; Translations: [Iliotibial band syndrome, right leg] 07-31-2021 Episodic Other connective tissue disease (7 sources) Swelling of upper limb; Translations: [Other specified soft tissue disorders] 11-13-2023 Episodic Other female genital disorders (4 sources) Polyp of corpus uteri; Translations: [Polyp of corpus uteri] Onset: 08-12-2023 08-12-2023 Episodic Other female genital disorders (2 sources) Polyp of corpus uteri; Translations: [Polyp of corpus uteri] 10-10-2023 Episodic Other non-traumatic joint disorders (20 sources) Pain in left knee; Translations: [Left knee pain] Onset: 09-20-2024 Episodic Other non-traumatic joint disorders (4 sources) Pain in right knee; Translations: [Pain in joint, lower leg] Episodic Other nutritional; endocrine; and metabolic disorders (1 source) Body mass index 30+ - obesity 06-07-2022 Chronic Other nutritional; endocrine; and metabolic disorders (8 sources) Obesity; Translations: [Obesity, unspecified] 06-07-2022 Chronic Other nutritional; endocrine; and metabolic disorders (18 sources) Hypercalcemia; Translations: [Hypercalcemia] 06-27-2022 Chronic Comment on above: May be related to Rodrigo ne metastases. Has normalized today. Other nutritional; endocrine; and metabolic disorders (13 sources) Hypercalcemia; Translations: [Hypercalcemia] 06-27-2022 Chronic Other nutritional; endocrine; and metabolic disorders (1 source) Obesity, unspecified; Translations: [Obesity, unspecified] Onset: 01-09-2024 Chronic Other skin disorders (2 sources) Cystic acne 01-06-2020 Episodic Other skin disorders (16 sources) Neck swelling; Translations: [Localized swelling, mass and lump, neck] 08-01-2022 Episodic Other skin disorders (4 sources) Localized swelling, mass and lump, neck; Translations: [Swelling, mass, or lump in head and neck] 08-01-2022 Episodic Other skin disorders (15 sources) Erythematous rash; Translations: [Rash and other nonspecific skin eruption] 06-15-2024 Episodic Comment on above: Cellulitis vs malign susie Other skin disorders (1 source) Rash and other nonspecific skin eruption; Translations: [Rash and other nonspecific skin eruption] Onset: 11-08-2024 Episodic Other upper respiratory infections (10 sources) Upper respiratory infection; Translations: [Acute upper respiratory infection, unspecified] Onset: 06-07-2022 06-07-2022 Episodic Pathological fracture (20 sources) Fracture of femoral condyle; Translations: [Pathological fracture, left femur, subsequent encounter for fracture with routine healing] 11-09-2020 Episodic Residual codes; unclassified (13 sources) Edema of foot; Translations: [Localized edema] 10-31-2022 Episodic Residual codes; unclassified (6 sources) Localized edema; Translations: [Edema] 10-31-2022 Episodic Residual codes; unclassified (2 sources) Estrogen receptor positive status [ER+]; Translations: [Estrogen receptor positive status [ER+]] Onset: 09-23-2024 Episodic Unclassified (6 sources) Patient encounter status 01-06-2020 Unclassified (1 source) Never used tobacco 06-07-2022 Unclassified (8 sources) Malignant neoplasm of overlapping sites of left female breast; Translations: [C50.812 - Malignant neoplasm of overlapping sites of left female breast] Unclassified (1 source) 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; Translations: [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] Onset: 09-23-2024 Past or Other Problems Problem Classification Problem Date Documented Date Episodic/Chronic Cancer of breast (3 sources) History of malignant neoplasm of breast; Translations: [Personal history of malignant neoplasm of breast] Onset: 05-13-2023 05-13-2023 Episodic Deficiency and other anemia (1 source) Anemia, unspecified; Translations: [Anemia, unspecified] Onset: 05-20-2024 Episodic Disorders of teeth and jaw (8 sources) Toothache; Translations: [Other specified disorders of teeth and supporting structures] Onset: 12-04-2023 12-04-2023 Episodic Neoplasms of unspecified nature or uncertain behavior (13 sources) Neoplasm of axillary lymph nodes; Translations: [Neoplasm of unspecified behavior of other specified sites] Onset: 07-24-2024 07-01-2024 Episodic Nonmalignant breast conditions (20 sources) Sebaceous cyst of skin of breast; Translations: [Other benign mammary dysplasias of unspecified breast] Onset: 12-18-2023 Episodic Other acquired deformities (1 source) Varus deformity, not elsewhere classified, left knee; Translations: [Varus deformity, not elsewhere classified, left knee] Onset: 08-12-2024 Episodic Other screening for suspected conditions (not mental disorders or infectious disease) (20 sources) Mammography abnormal; Translations: [Other abnormal and inconclusive findings on diagnostic imaging of breast] Onset: 08-05-2024 Episodic Comment on above: hypermetabolic uptak e right axillaUltrasound on 07/22/2024 showed unremarkable lymph nodes. Results Test Name Value Interpretation Reference Range Facility CA 15-3on 11-26-2024 CA 15-3 62.2 U/mL Abnormal 0.0-25.0 [facility] Comment on above: Result Comment: [employer] Electrochemiluminescence Immunoassay(ECLIA)Values obtained with different assay methods or kits cannotbe used interchangeably. Results cannot be interpreted asabsolute evidence of the presence or absence of malignantdisease.Performed at: [facility] [employer] [facility] [email or web address] Director: Ervin Hitchcock PhD, Phone: [phone] Performed By: #### L 100.0100, L500.4050, L3100.5030, L3100.5040, L504.2610 ####[facility] [id number] [facility]. [place], [place], [id number] CA 27.29on 11-26-2024 CA 27.29 75.5 U/mL Abnormal 0.0-38.6 [facility] Comment on above: Result Comment: [employer] Immunochemiluminometric Methodology (ICMA)Values obtained with different assay methods or kits cannotbe used interchangeably. Results cannot be interpreted asabsolute evidence of the presence or absence of malignantdisease. Performed By: #### L 100.0100, L500.4050, L3100.5030, L3100.5040, L504.2610 ####[facility] [id number] [place] [facility] [place], [place], [id number] Absolute lymphocyte countOrd ered By: Cristóbal Waldron on 11-25-2024 Lymphocytes Auto (Unsp spec) [#/Vol] 2.44 10*3/uL 0.83-4.51 [facility] Absolute neutrophil countOrd ered By: [facility] on 11-25-2024 Neutrophils (Bld) [#/Vol] 5.5 10*3/uL 2.0-7.7 [facility] Anion gap in Serum or Plasma Ordered By: [facility] on 11-25-2024 Anion gap [Moles/Vol] 13 mmol/L 5- [facility] Automated lymphocyte count a s percentage of total leukocytesOrdered By: [facility] on 11-25-2024 Lymphocytes/100 WBC Auto (Unsp spec) 28.2 % [facility] BUN/creatinine ratioOrdered By: [facility] on 11-25-2024 Urea nitrogen/Creatinine [Mass ratio] 21.0 mg/mg High - [facility] Basophil percentageOrdered B y: [facility] on 11-25-2024 Basophils/100 WBC (Bld) 0.3 % 0- [facility] Bilirubin, totalOrdered By: [facility] on 11-25-2024 Bilirubin [Mass/Vol] 0.25 mg/dL 0.00-1.30 [facility] CBC W/Diff, Automatedon 11-07 Absolute Lymph 2.44 X10 3/uL Normal 0.83-4.51 [facility] Comment on above: Performed By: #### L 100.0100, L500.4050, L3100.5030, L3100.5040, L504.2610 ####[facility] [address] [place], [place], [id number] Absolute Neut 5.5 X10 3/uL Normal 2.0-7.7 [facility] Comment on above: Performed By: #### L 100.0100, L500.4050, L3100.5030, L3100.5040, L504.2610 ####[facility] [address] [place], [address] Basophils/100 WBC (Bld) 0.3 % Normal 0-1 [facility] Comment on above: Performed By: #### L 100.0100, L500.4050, L3100.5030, L3100.5040, L504.2610 ####[facility] [address] [place], [address] Eosinophils/100 WBC (Bld) 1.0 % Normal 0-5 [facility] Comment on above: Performed By: #### L 100.0100, L500.4050, L3100.5030, L3100.5040, L504.2610 ####[facility] [address] [place], [address] Erythrocyte distribution width (RBC) [Ratio] 14.6 % Normal 11.6-14.6 [facility] Comment on above: Performed By: #### L 100.0100, L500.4050, L3100.5030, L3100.5040, L504.2610 ####[facility] [address] [place], [address] Hematocrit (Bld) [Volume fraction] 39.9 % Normal 37-47 [facility] Comment on above: Performed By: #### L 100.0100, L500.4050, L3100.5030, L3100.5040, L504.2610 ####[facility] [address] [place], [address] Hemoglobin (Bld) [Mass/Vol] 13.0 g/dL Normal 12.0-15.0 [facility] Comment on above: Performed By: #### L 100.0100, L500.4050, L3100.5030, L3100.5040, L504.2610 ####[facility] [address] [place], [address] IG% 0.500 Normal 0.0-0.9 [facility] Comment on above: Result Comment: IG% - Immature Granulocytes (promyelocytes, myelocytes andmetamyelocytes) > 1% indicates that a LEFT SHIFT is Present. Performed By: #### L 100.0100, L500.4050, L3100.5030, L3100.5040, L504.2610 ####[facility] [address] [place], [address] Lymphocytes/100 WBC (Bld) 28.2 % Normal 19-41 [facility] Comment on above: Performed By: #### L 100.0100, L500.4050, L3100.5030, L3100.5040, L504.2610 ####[facility] [address] [place], [address] MCH (RBC) [Entitic mass] 29.6 pg Normal 27.0-32.0 [facility] Comment on above: Performed By: #### L 100.0100, L500.4050, L3100.5030, L3100.5040, L504.2610 ####[facility] [address] [place], [address] MCHC (RBC) [Mass/Vol] 32.6 g/dL Normal 32-36 [facility] Comment on above: Performed By: #### L 100.0100, L500.4050, L3100.5030, L3100.5040, L504.2610 ####[facility] [address] [place], [address] MCV (RBC) [Entitic vol] 90.9 fL Normal 81-99 [facility] Comment on above: Performed By: #### L 100.0100, L500.4050, L3100.5030, L3100.5040, L504.2610 ####[facility] [address] [place], [address] Monocytes/100 WBC (Bld) 6.2 % Normal 0-10 [facility] Comment on above: Performed By: #### L 100.0100, L500.4050, L3100.5030, L3100.5040, L504.2610 ####[facility] [address] [place], [address] Neutrophils/100 WBC (Bld) 63.8 % Normal 47-70 [facility] Comment on above: Performed By: #### L 100.0100, L500.4050, L3100.5030, L3100.5040, L504.2610 ####[facility] [address] [place], [address] Nucleated RBC (Bld) [#/Vol] 0 10*3/uL Normal 0-5 [facility] Comment on above: Performed By: #### L 100.0100, L500.4050, L3100.5030, L3100.5040, L504.2610 ####[facility] [address] [place], [address] Platelet mean volume (Bld) [Entitic vol] 9.8 fL Normal 6.2-12.0 [facility] Comment on above: Performed By: #### L 100.0100, L500.4050, L3100.5030, L3100.5040, L504.2610 ####[facility] [address] [place], [address] Platelets (Bld) [#/Vol] 162 10*3/uL Normal 150-450 [facility] Comment on above: Performed By: #### L 100.0100, L500.4050, L3100.5030, L3100.5040, L504.2610 ####[facility] [address] [place], [address] RBC (Bld) [#/Vol] 4.39 10*6/uL Normal 4.2-5.4 [facility] Comment on above: Performed By: #### L 100.0100, L500.4050, L3100.5030, L3100.5040, L504.2610 ####[facility] [address] [place], [address] RDW SD 49.1 fl High 35.1-43.9 [facility] Comment on above: Performed By: #### L 100.0100, L500.4050, L3100.5030, L3100.5040, L504.2610 ####[facility] [address] [place], [address] WBC (Bld) [#/Vol] 8.7 10*3/uL Normal 4.4-11.0 [facility] Comment on above: Performed By: #### L 100.0100, L500.4050, L3100.5030, L3100.5040, L504.2610 ####[facility] [address] [place], [address] Carbon dioxide, total [Moles /volume] in Central venous bloodOrdered By: Cristóbal Ford on 11-25-2024 CO2 [Moles/Vol] 24.6 mmol/L 21.0-32.0 [facility] Chloride assayOrdered By: Tami Ford on 11-25-2024 Chloride [Moles/Vol] 104 mmol/L 98-108 [facility] Comprehensive Metabolic Prof ilon 11-25-2024 Albumin [Mass/Vol] 4.4 g/dL Normal 3.5-5.0 [facility] Comment on above: Performed By: #### L 100.0100, L500.4050, L3100.5030, L3100.5040, L504.2610 ####[facility] [address] [place], [address] Albumin/Globulin [Mass ratio] 1.8 {ratio} Normal 0.9-2.4 [facility] Comment on above: Performed By: #### L 100.0100, L500.4050, L3100.5030, L3100.5040, L504.2610 ####[facility] [address] [place], [address] ALK PHOS 66 U/L Normal 35-104 [facility] Comment on above: Performed By: #### L 100.0100, L500.4050, L3100.5030, L3100.5040, L504.2610 ####[facility] [address] [place], [address] ALT [Catalytic activity/Vol] 36 U/L High <=34 [facility] Comment on above: Performed By: #### L 100.0100, L500.4050, L3100.5030, L3100.5040, L504.2610 ####[facility] [address] [place], [address] AST [Catalytic activity/Vol] 40 U/L High <=31 [facility] Comment on above: Performed By: #### L 100.0100, L500.4050, L3100.5030, L3100.5040, L504.2610 ####[facility] [address] [place], [address] Bilirubin [Mass/Vol] 0.25 mg/dL Normal 0.00-1.30 [facility] Comment on above: Performed By: #### L 100.0100, L500.4050, L3100.5030, L3100.5040, L504.2610 ####[facility] [address] [place], [address] BUN/CRE 21.0 RATIO High 10-20 [facility] Comment on above: Performed By: #### L 100.0100, L500.4050, L3100.5030, L3100.5040, L504.2610 ####[facility] [address] [place], [address] Calcium [Mass/Vol] 10.1 mg/dL Normal 7.6-11.0 [facility] Comment on above: Performed By: #### L 100.0100, L500.4050, L3100.5030, L3100.5040, L504.2610 ####[facility] [address] [place], [address] Chloride [Moles/Vol] 104 mmol/L Normal 98-108 [facility] Comment on above: Performed By: #### L 100.0100, L500.4050, L3100.5030, L3100.5040, L504.2610 ####[facility] [address] [place], [address] CO2 [Moles/Vol] 24.6 mmol/L Normal 21.0-32.0 [facility] Comment on above: Performed By: #### L 100.0100, L500.4050, L3100.5030, L3100.5040, L504.2610 ####[facility] [address] [place], [address] Creatinine [Mass/Vol] 0.76 mg/dL Normal 0.70-1.20 [facility] Comment on above: Performed By: #### L 100.0100, L500.4050, L3100.5030, L3100.5040, L504.2610 ####[facility] [address] [place], [address] ECRCL 105.02 ml/min Normal 50-250 [facility] Comment on above: Performed By: #### L 100.0100, L500.4050, L3100.5030, L3100.5040, L504.2610 ####[facility] [address] [place], [address] GAP 13 Normal 5-15 [facility] Comment on above: Performed By: #### L 100.0100, L500.4050, L3100.5030, L3100.5040, L504.2610 ####[facility] [address] [place], [address] GFR/1.73 sq M.predicted among non-blacks MDRD (S/P/Bld) [Vol rate/Area] 93 mL/min/{1.73_m2} Normal >60 [facility] Comment on above: Result Comment: mL/m in/1.73m2 CKD-EPI Creatinine Equation (2020) Performed By: #### L 100.0100, L500.4050, L3100.5030, L3100.5040, L504.2610 ####[facility] [address] [place], [address] Globulin (S) [Mass/Vol] 2.4 g/dL Normal 2.2-4.2 [facility] Comment on above: Performed By: #### L 100.0100, L500.4050, L3100.5030, L3100.5040, L504.2610 ####[facility] [address] [place], [address] Glucose [Mass/Vol] 109 mg/dL High 70-99 [facility] Comment on above: Performed By: #### L 100.0100, L500.4050, L3100.5030, L3100.5040, L504.2610 ####[facility] [address] [place], [address] Potassium [Moles/Vol] 3.9 mmol/L Normal 3.3-5.1 [facility] Comment on above: Performed By: #### L 100.0100, L500.4050, L3100.5030, L3100.5040, L504.2610 ####[facility] [address] [place], [address] Sodium [Moles/Vol] 141 mmol/L Normal 133-145 [facility] Comment on above: Performed By: #### L 100.0100, L500.4050, L3100.5030, L3100.5040, L504.2610 ####[facility] [address] [place], [place], [address] T PROT 6.8 g/dL Normal 5.9-8.4 [facility] Comment on above: Performed By: #### L 100.0100, L500.4050, L3100.5030, L3100.5040, L504.2610 ####[facility] [address] [place], [address] Urea nitrogen [Mass/Vol] 16 mg/dL Normal 4-19 [facility] Comment on above: Performed By: #### L 100.0100, L500.4050, L3100.5030, L3100.5040, L504.2610 ####[facility] [address] [place], [place], [address] Eosinophil percentageOrdered By: Cristóbal Ford on 11-25-2024 Eosinophils/100 WBC (Bld) 1.0 % 0-5 [facility] Erythrocyte distribution wid th ratioOrdered By: Cristóbal Ford on 11-25-2024 Erythrocyte distribution width (RBC) [Ratio] 14.6 % 11.6-14.6 [facility] Erythrocyte distribution wid th standard deviationOrdered By: Cristóbal Ford on 11-25-2024 Erythrocyte distribution width (RBC) [Ratio] 49.1 fl High 35.1-43.9 [facility] Glomerular filtration rate ( GFR) estimation/1.73 sq m using serum, plasma, or whole bOrdered By: Cristóbal Ford on 11-25-2024 GFR/1.73 sq M.predicted among non-blacks MDRD (S/P/Bld) [Vol rate/Area] 93 mL/min/{1.73_m2} >60 [facility] Comment on above: mL/min/1.73m2 CKD-EP I Creatinine Equation (2020) Hematocrit Auto (Bld) [Volum e fraction]Ordered By: Cristóbal Ford on 11-25-2024 Hematocrit (Bld) [Volume fraction] 39.9 % 37-47 [facility] Hemoglobin measurementOrdere d By: Cristóbal Ford on 11-25-2024 Hemoglobin (Bld) [Mass/Vol] 13.0 g/dL 12.0-15.0 [facility] Immature granulocytes/100 WB C Auto (Bld)Ordered By: Cristóbal Ford on 11-25-2024 Immature granulocytes/100 WBC (Bld) 0.500 % 0.0-0.9 [facility] Comment on above: IG% - Immature Granu locytes (promyelocytes, myelocytes and metamyelocytes) > 1% indicates that a LEFT SHIFT is Present. LDHon 11-25-2024 LDH 171 U/L Normal 84-246 [facility] Comment on above: Order Comment: 1 Performed By: #### L 100.0100, L500.4050, L3100.5030, L3100.5040, L504.2610 ####[facility] [address] [place], [address] Laboratory - Chemistry and C hemistry - challengeOrdered By: Cristóbal Ford on 11-25-2024 AST [Catalytic activity/Vol] 40 U/L High <32 [facility] Lactate dehydrogenase (LDH) measurementOrdered By: Cristóbal Ford on 11-25-2024 LDH [Catalytic activity/Vol] 171 U/L 84-246 [facility] MCV (mean corpuscular volume ) determinationOrdered By: Cristóbal Ford on 11-25-2024 MCV (RBC) [Entitic vol] 90.9 fL 81-99 [facility] Mean corpuscular hemoglobin (MCH) determinationOrdered By: Cristóbal Ford on 11-25-2024 MCH (RBC) [Entitic mass] 29.6 pg 27.0-32.0 [facility] Mean corpuscular hemoglobin concentration (MCHC) determinationOrdered By: Cristóbal Ford on 11-25-2024 MCHC (RBC) [Mass/Vol] 32.6 g/dL 32-36 [facility] Mean platelet volume determi nationOrdered By: Cristóbal Ford on 11-25-2024 Platelet mean volume (Bld) [Entitic vol] 9.8 fL 6.2-12.0 [facility] Monocyte percentageOrdered B y: Cristóbal Ford on 11-25-2024 Monocytes/100 WBC (Bld) 6.2 % 0-10 [facility] Neutrophil percentageOrdered By: Cristóbal Ford on 11-25-2024 Neutrophils/100 WBC (Bld) 63.8 % 47-70 [facility] Nucleated red blood cell per centageOrdered By: Cristóbal Ford on 11-25-2024 Nucleated RBC/100 WBC (Bld) [Ratio] 0 % 0-5 [facility] Oncology Visit Reporton 11-07 Oncology Visit Report Normal [facility] Platelet countOrdered By: Tami Ford on 11-25-2024 Platelets (Bld) [#/Vol] 162 10*3/uL 150-450 [facility] Potassium measurement (mass/ volume)Ordered By: Cristóbal Ford on 11-25-2024 Potassium (Unsp spec) [Mass/Vol] 3.9 mmol/L 3.3-5.1 [facility] RBC Auto (Bld) [#/Vol]Ordere d By: Cristóbal Ford on 11-25-2024 RBC (Bld) [#/Vol] 4.39 10*6/uL 4.2-5.4 [facility] Serum creatinine measurement (mass/volume)Ordered By: Cristóbal Ford on 11-25-2024 Creatinine [Mass/Vol] 0.76 mg/dL 0.70-1.20 [facility] Serum globulin measurementOr dered By: Cristóbal Ford on 11-25-2024 Globulin (S) [Mass/Vol] 2.4 g/dL 2.2-4.2 [facility] Serum glucose measurement (m ass/volume)Ordered By: Cristóbal Ford on 11-25-2024 Glucose [Mass/Vol] 109 mg/dL High 70-99 [facility] Serum or plasma alanine alonzo otransferase (ALT) measurementOrdered By: Cristóbal Ford on 11-25-2024 ALT [Catalytic activity/Vol] 36 U/L High <35 [facility] Serum or plasma albumin paul urement (mass/volume)Ordered By: Cristóbal Ford on 11-25-2024 Albumin [Mass/Vol] 4.4 g/dL 3.5-5.0 [facility] Serum or plasma albumin/glob ulin mass ratioOrdered By: Cristóbal Ford on 11-25-2024 Albumin/Globulin [Mass ratio] 1.8 {ratio} 0.9-2.4 [facility] Serum or plasma alkaline ubaldo sphatase measurementOrdered By: Cristóbal Ford on 11-25-2024 ALP [Catalytic activity/Vol] 66 U/L 35-104 [facility] Serum or plasma calcium paul urement (mass/volume)Ordered By: Cristóbal Ford on 11-25-2024 Calcium [Mass/Vol] 10.1 mg/dL 7.6-11.0 [facility] Serum or plasma urea nitroge n measurement (mass/volume)Ordered By: Cristóbal Ford on 11-25-2024 Urea nitrogen [Mass/Vol] 16 mg/dL 4-19 [facility] Sodium levelOrdered By: Hudson Ford on 11-25-2024 Sodium [Moles/Vol] 141 mmol/L 133-145 [facility] Total proteinOrdered By: Jose G Ford on 11-25-2024 Protein [Mass/Vol] 6.8 g/dL 5.9-8.4 [facility] White blood cell (WBC) count Ordered By: Cristóbal Ford on 11-25-2024 WBC (Bld) [#/Vol] 8.7 10*3/uL 4.4-11.0 [facility] CA 15-3on 11-05-2024 CA 15-3 53.9 U/mL Abnormal 0.0-25.0 [facility] Comment on above: Result Comment: [employer] Electrochemiluminescence Immunoassay(ECLIA)Values obtained with different assay methods or kits cannotbe used interchangeably. Results cannot be interpreted asabsolute evidence of the presence or absence of malignantdisease.Performed at: [facility] [address] [id number] Director: Ervin Hitchcock PhD, Phone: [phone] Performed By: #### L 100.2120, L3121.3680, L3100.2760, L593.3685 ####[facility] [address] [place], [address] CA 27.29on 11-05-2024 CA 27.29 78.7 U/mL Abnormal 0.0-38.6 [facility] Comment on above: Result Comment: [facility] Immunochemiluminometric Methodology (ICMA)Values obtained with different assay methods or kits cannotbe used interchangeably. Results cannot be interpreted asabsolute evidence of the presence or absence of malignantdisease. Performed By: #### L 100.0100, L3100.5040, L3100.5030, L500.4050 ####[facility] [address] [place], [address] Absolute lymphocyte countOrd ered By: Genna Armijo on 11-04-2024 Lymphocytes Auto (Unsp spec) [#/Vol] 2.66 10*3/uL 0.83-4.51 [facility] Absolute neutrophil countOrd ered By: Genna CheryAleksander on 11-04-2024 Neutrophils (Bld) [#/Vol] 6.5 10*3/uL 2.0-7.7 [facility] Anion gap in Serum or Plasma Ordered By: Gennameagan Armijo on 11-04-2024 Anion gap [Moles/Vol] 11 mmol/L 5-15 [facility] Automated lymphocyte count a s percentage of total leukocytesOrdered By: Genna Armijo on 11-04-2024 Lymphocytes/100 WBC Auto (Unsp spec) 26.9 % 19-41 [facility] BUN/creatinine ratioOrdered By: Genna CheryAleksander on 11-04-2024 Urea nitrogen/Creatinine [Mass ratio] 26.8 mg/mg High 10-20 [facility] Basophil percentageOrdered B y: Genna Aleksander on 11-04-2024 Basophils/100 WBC (Bld) 0.4 % 0-1 [facility] Bilirubin, totalOrdered By: Genna Armijo on 11-04-2024 Bilirubin [Mass/Vol] 0.25 mg/dL 0.00-1.30 [facility] CA 15-3Ordered By: Genna lim on 11-04-2024 CA 15-3 53.9 U/mL High 0.0-25.0 [facility] Comment on above: [employer] El ectrochemiluminescence Immunoassay(ECLIA)Values obtained with different assay methods or kits cannotbe used interchangeably. Results cannot be interpreted asabsolute evidence of the presence or absence of malignantdisease.Performed at: [facility] [address] [id number] Director: Ervin Hitchcock PhD, Phone: [phone] CA Ordered By: Genna fuentes on 11-04-2024 CA 27.29 78.7 U/mL High 0.0-38.6 [facility] Comment on above: [employer] Immu nochemiluminometric Methodology (ICMA)Values obtained with different assay methods or kits cannotbe used interchangeably. Results cannot be interpreted asabsolute evidence of the presence or absence of malignantdisease. CBC W/Diff, Automatedon 10-08 Absolute Lymph 2.66 X10 3/uL Normal 0.83-4.51 [facility] Comment on above: Performed By: #### L 100.0100, L3100.5040, L3100.5030, L500.4050 ####[facility] [address] [place], [address] Absolute Neut 6.5 X10 3/uL Normal 2.0-7.7 [facility] Comment on above: Performed By: #### L 100.0100, L3100.5040, L3100.5030, L500.4050 ####[facility] [address] [place], [address] Basophils/100 WBC (Bld) 0.4 % Normal 0-1 [facility] Comment on above: Performed By: #### L 100.0100, L3100.5040, L3100.5030, L500.4050 ####[facility] [address] [place], [address] Eosinophils/100 WBC (Bld) 0.8 % Normal 0-5 [facility] Comment on above: Performed By: #### L 100.0100, L3100.5040, L3100.5030, L500.4050 ####[facility] [address] [place], [address] Erythrocyte distribution width (RBC) [Ratio] 13.9 % Normal 11.6-14.6 [facility] Comment on above: Performed By: #### L 100.0100, L3100.5040, L3100.5030, L500.4050 ####[facility] [address] [place], [address] Hematocrit (Bld) [Volume fraction] 38.9 % Normal 37-47 [facility] Comment on above: Performed By: #### L 100.0100, L3100.5040, L3100.5030, L500.4050 ####[facility] [address] [place], [address] Hemoglobin (Bld) [Mass/Vol] 12.6 g/dL Normal 12.0-15.0 [facility] Comment on above: Performed By: #### L 100.0100, L3100.5040, L3100.5030, L500.4050 ####[facility] [address] [place], [address] IG% 0.500 Normal 0.0-0.9 [facility] Comment on above: Result Comment: IG% - Immature Granulocytes (promyelocytes, myelocytes andmetamyelocytes) > 1% indicates that a LEFT SHIFT is Present. Performed By: #### L 100.0100, L3100.5040, L3100.5030, L500.4050 ####[facility] [address] [place], [address] Lymphocytes/100 WBC (Bld) 26.9 % Normal 19-41 [facility] Comment on above: Performed By: #### L 100.0100, L3100.5040, L3100.5030, L500.4050 ####[facility] [address] [place], [address] MCH (RBC) [Entitic mass] 29.9 pg Normal 27.0-32.0 [facility] Comment on above: Performed By: #### L 100.0100, L3100.5040, L3100.5030, L500.4050 ####[facility] [address] [place], [address] MCHC (RBC) [Mass/Vol] 32.4 g/dL Normal 32-36 [facility] Comment on above: Performed By: #### L 100.0100, L3100.5040, L3100.5030, L500.4050 ####[facility] [address] [place], [address] MCV (RBC) [Entitic vol] 92.4 fL Normal 81-99 [facility] Comment on above: Performed By: #### L 100.0100, L3100.5040, L3100.5030, L500.4050 ####[facility] [address] [place], [address] Monocytes/100 WBC (Bld) 5.6 % Normal 0-10 [facility] Comment on above: Performed By: #### L 100.0100, L3100.5040, L3100.5030, L500.4050 ####[facility] [address] [place], [address] Neutrophils/100 WBC (Bld) 65.8 % Normal 47-70 [facility] Comment on above: Performed By: #### L 100.0100, L3100.5040, L3100.5030, L500.4050 ####[facility] [address] [place], [address] Nucleated RBC (Bld) [#/Vol] 0 10*3/uL Normal 0-5 [facility] Comment on above: Performed By: #### L 100.0100, L3100.5040, L3100.5030, L500.4050 ####[facility] [id number] [place], [address] Platelet mean volume (Bld) [Entitic vol] 10.0 fL Normal 6.2-12.0 [facility] Comment on above: Performed By: #### L 100.0100, L3100.5040, L3100.5030, L500.4050 ####[facility] [address] [place], [address] Platelets (Bld) [#/Vol] 195 10*3/uL Normal 150-450 [facility] Comment on above: Performed By: #### L 100.0100, L3100.5040, L3100.5030, L500.4050 ####[facility] [address] [place], [address] RBC (Bld) [#/Vol] 4.21 10*6/uL Normal 4.2-5.4 [facility] Comment on above: Performed By: #### L 100.0100, L3100.5040, L3100.5030, L500.4050 ####[facility] [address] [place], [address] RDW SD 47.5 fl High 35.1-43.9 [facility] Comment on above: Performed By: #### L 100.0100, L3100.5040, L3100.5030, L500.4050 ####[facility] [address] [place], [address] WBC (Bld) [#/Vol] 9.9 10*3/uL Normal 4.4-11.0 [facility] Comment on above: Performed By: #### L 100.0100, L3100.5040, L3100.5030, L500.4050 ####[facility] [address] [place], [address] Carbon dioxide, total [Moles /volume] in Central venous bloodOrdered By: Genna Armijo on 11-04-2024 CO2 [Moles/Vol] 25.0 mmol/L 21.0-32.0 [facility] Chloride assayOrdered By: Erwin Armijo on 11-04-2024 Chloride [Moles/Vol] 104 mmol/L 98-108 [facility] Comprehensive Metabolic Prof ilon 11-04-2024 Albumin [Mass/Vol] 4.1 g/dL Normal 3.5-5.0 [facility] Comment on above: Performed By: #### L 100.0100, L3100.5040, L3100.5030, L500.4050 ####[facility] [address] [place], [address] Albumin/Globulin [Mass ratio] 1.6 {ratio} Normal 0.9-2.4 [facility] Comment on above: Performed By: #### L 100.0100, L3100.5040, L3100.5030, L500.4050 ####[facility] [address] [place], [address] ALK PHOS 67 U/L Normal 35-104 [facility] Comment on above: Performed By: #### L 100.0100, L3100.5040, L3100.5030, L500.4050 ####[facility] [address] [place], [address] ALT [Catalytic activity/Vol] 35 U/L Normal <=34 [facility] Comment on above: Performed By: #### L 100.0100, L3100.5040, L3100.5030, L500.4050 ####[facility] [address] [place], [address] AST [Catalytic activity/Vol] 36 U/L High <=31 [facility] Comment on above: Performed By: #### L 100.0100, L3100.5040, L3100.5030, L500.4050 ####[facility] [address] [place], [address] Bilirubin [Mass/Vol] 0.25 mg/dL Normal 0.00-1.30 [facility] Comment on above: Performed By: #### L 100.0100, L3100.5040, L3100.5030, L500.4050 ####[facility] [address] [place], [address] BUN/CRE 26.8 RATIO High 10-20 [facility] Comment on above: Performed By: #### L 100.0100, L3100.5040, L3100.5030, L500.4050 ####[facility] [address] [place], [address] Calcium [Mass/Vol] 10.0 mg/dL Normal 7.6-11.0 [facility] Comment on above: Performed By: #### L 100.0100, L3100.5040, L3100.5030, L500.4050 ####[facility] [address] [place], [address] Chloride [Moles/Vol] 104 mmol/L Normal 98-108 [facility] Comment on above: Performed By: #### L 100.0100, L3100.5040, L3100.5030, L500.4050 ####[facility] [address] [place], [address] CO2 [Moles/Vol] 25.0 mmol/L Normal 21.0-32.0 [facility] Comment on above: Performed By: #### L 100.0100, L3100.5040, L3100.5030, L500.4050 ####[facility] [address] [place], [address] Creatinine [Mass/Vol] 0.64 mg/dL Low 0.70-1.20 [facility] Comment on above: Performed By: #### L 100.0100, L3100.5040, L3100.5030, L500.4050 ####[facility] [address] [place], [address] ECRCL 123.71 ml/min Normal 50-250 [facility] Comment on above: Performed By: #### L 100.0100, L3100.5040, L3100.5030, L500.4050 ####[facility] [address] [place], [address] GAP 11 Normal 5-15 [facility] Comment on above: Performed By: #### L 100.0100, L3100.5040, L3100.5030, L500.4050 ####[facility] [address] [place], [address] GFR/1.73 sq M.predicted among non-blacks MDRD (S/P/Bld) [Vol rate/Area] 104 mL/min/{1.73_m2} Normal >60 [facility] Comment on above: Result Comment: mL/m in/1.73m2 CKD-EPI Creatinine Equation (2020) Performed By: #### L 100.0100, L3100.5040, L3100.5030, L500.4050 ####[facility] [address] [place], [address] Globulin (S) [Mass/Vol] 2.6 g/dL Normal 2.2-4.2 [facility] Comment on above: Performed By: #### L 100.0100, L3100.5040, L3100.5030, L500.4050 ####[facility] [address] [place], [address] Glucose [Mass/Vol] 95 mg/dL Normal 70-99 [facility] Comment on above: Performed By: #### L 100.0100, L3100.5040, L3100.5030, L500.4050 ####[facility] [address] [place], [address] Potassium [Moles/Vol] 3.9 mmol/L Normal 3.3-5.1 [facility] Comment on above: Performed By: #### L 100.0100, L3100.5040, L3100.5030, L500.4050 ####[facility] [address] [place], [address] Sodium [Moles/Vol] 140 mmol/L Normal 133-145 [facility] Comment on above: Performed By: #### L 100.0100, L3100.5040, L3100.5030, L500.4050 ####[facility] [address] [place], [address] T PROT 6.7 g/dL Normal 5.9-8.4 [facility] Comment on above: Performed By: #### L 100.0100, L3100.5040, L3100.5030, L500.4050 ####[facility] [address] [place], [address] Urea nitrogen [Mass/Vol] 17 mg/dL Normal 4-19 [facility] Comment on above: Performed By: #### L 100.0100, L3100.5040, L3100.5030, L500.4050 ####[facility] [address] [place], [address] Eosinophil percentageOrdered By: Genna Armijo on 11-04-2024 Eosinophils/100 WBC (Bld) 0.8 % 0-5 [facility] Erythrocyte distribution wid th ratioOrdered By: Genna Armijo on 11-04-2024 Erythrocyte distribution width (RBC) [Ratio] 13.9 % 11.6-14.6 [facility] Erythrocyte distribution wid th standard deviationOrdered By: Genna Armijo on 11-04-2024 Erythrocyte distribution width (RBC) [Ratio] 47.5 fl High 35.1-43.9 [facility] Glomerular filtration rate ( GFR) estimation/1.73 sq m using serum, plasma, or whole bOrdered By: Genna Armijo on 11-04-2024 GFR/1.73 sq M.predicted among non-blacks MDRD (S/P/Bld) [Vol rate/Area] 104 mL/min/{1.73_m2} >60 [facility] Comment on above: mL/min/1.73m2 CKD-EP I Creatinine Equation (2020) Hematocrit Auto (Bld) [Volum e fraction]Ordered By: Genna Armijo on 11-04-2024 Hematocrit (Bld) [Volume fraction] 38.9 % 37-47 [facility] Hemoglobin measurementOrdere d By: Genna Armijo on 11-04-2024 Hemoglobin (Bld) [Mass/Vol] 12.6 g/dL 12.0-15.0 [facility] Immature granulocytes/100 WB C Auto (Bld)Ordered By: Genna Armijo on 11-04-2024 Immature granulocytes/100 WBC (Bld) 0.500 % 0.0-0.9 [facility] Comment on above: IG% - Immature Granu locytes (promyelocytes, myelocytes and metamyelocytes) > 1% indicates that a LEFT SHIFT is Present. Laboratory - Chemistry and C hemistry - challengeOrdered By: Genna Armijo on 11-04-2024 AST [Catalytic activity/Vol] 36 U/L High <32 [facility] MCV (mean corpuscular volume ) determinationOrdered By: Genna Armijo on 11-04-2024 MCV (RBC) [Entitic vol] 92.4 fL 81-99 [facility] Mean corpuscular hemoglobin (MCH) determinationOrdered By: Genna Armijo on 11-04-2024 MCH (RBC) [Entitic mass] 29.9 pg 27.0-32.0 [facility] Mean corpuscular hemoglobin concentration (MCHC) determinationOrdered By: Genna Aleksander on 11-04-2024 MCHC (RBC) [Mass/Vol] 32.4 g/dL 32-36 [facility] Mean platelet volume determi nationOrdered By: Genna Armijo on 11-04-2024 Platelet mean volume (Bld) [Entitic vol] 10.0 fL 6.2-12.0 [facility] Monocyte percentageOrdered B y: Genna Armijo on 11-04-2024 Monocytes/100 WBC (Bld) 5.6 % 0-10 [facility] Neutrophil percentageOrdered By: Genna Armijo on 11-04-2024 Neutrophils/100 WBC (Bld) 65.8 % 47-70 [facility] Nucleated red blood cell per centageOrdered By: Genna Armijo on 11-04-2024 Nucleated RBC/100 WBC (Bld) [Ratio] 0 % 0-5 [facility] Oncology Visit Reporton 10-08 Oncology Visit Report Normal [facility] Platelet countOrdered By: Erwin Armijo on 11-04-2024 Platelets (Bld) [#/Vol] 195 10*3/uL 150-450 [facility] Potassium measurement (mass/ volume)Ordered By: Genna Armijo on 11-04-2024 Potassium (Unsp spec) [Mass/Vol] 3.9 mmol/L 3.3-5.1 [facility] RBC Auto (Bld) [#/Vol]Ordere d By: Genna Armijo on 11-04-2024 RBC (Bld) [#/Vol] 4.21 10*6/uL 4.2-5.4 [facility] Serum creatinine measurement (mass/volume)Ordered By: Genna Armijo on 11-04-2024 Creatinine [Mass/Vol] 0.64 mg/dL Low 0.70-1.20 [facility] Serum globulin measurementOr dered By: Genna Armijo on 11-04-2024 Globulin (S) [Mass/Vol] 2.6 g/dL 2.2-4.2 [facility] Serum glucose measurement (m ass/volume)Ordered By: Genna Armijo on 11-04-2024 Glucose [Mass/Vol] 95 mg/dL 70-99 [facility] Serum or plasma alanine alonzo otransferase (ALT) measurementOrdered By: Genna Armijo on 11-04-2024 ALT [Catalytic activity/Vol] 35 U/L <35 [facility] Serum or plasma albumin paul urement (mass/volume)Ordered By: Genna Armijo on 11-04-2024 Albumin [Mass/Vol] 4.1 g/dL 3.5-5.0 [facility] Serum or plasma albumin/glob ulin mass ratioOrdered By: Genna Armijo on 11-04-2024 Albumin/Globulin [Mass ratio] 1.6 {ratio} 0.9-2.4 [facility] Serum or plasma alkaline ubaldo sphatase measurementOrdered By: [facility] 11-04-[facility] ALP [Catalytic activity/Vol] 67 U/L 35-104 [facility] Serum or plasma calcium paul urement (mass/volume)Ordered By: Genna Aleksander on 11-04-2024 Calcium [Mass/Vol] 10.0 mg/dL 7.6-11.0 [facility] Serum or plasma urea nitroge n measurement (mass/volume)Ordered By: [facility] on 11-04-2024 Urea nitrogen [Mass/Vol] 17 mg/dL 4-19 [facility] Sodium levelOrdered By: Genna Aleksander on 11-04-2024 Sodium [Moles/Vol] 140 mmol/L 133-145 [facility] Total proteinOrdered By: David Armijo on 11-04-2024 Protein [Mass/Vol] 6.7 g/dL 5.9-8.4 [facility] White blood cell (WBC) count Ordered By: Genna Armijo on 11-04-2024 WBC (Bld) [#/Vol] 9.9 10*3/uL 4.4-11.0 [facility] Urine Cultureon 10-28-2024 URC Normal [facility] Comment on above: Performed By: #### M 100.2200 ####[facility] [address] [place], [place], [id number] Laboratory - Chemistry and C hemistry - challengeOrdered By: Dain Vaughn on 10-26-2024 Bilirubin Ql (U) Negative [facility] Glucose Ql (U) Negative [facility] Ketones Ql (U) Negative [facility] pH (U) 7.0 [pH] [facility] Specific gravity (U) [Rel density] 1.015 [facility] Urobilinogen (U) [Mass/Vol] 1 mg/dL [facility] Laboratory - Hematology and Cell countsOrdered By: Dain Vaughn on 10-26-2024 Hemoglobin Ql (U) Moderate [facility] Laboratory - Specimen inform ationOrdered By: Dain Vaughn on 10-26-2024 Clarity (U) Clear [facility] Color (U) YELLOW [facility] Laboratory - UrinalysisOrder ed By: Dain Vaughn on 10-26-2024 Nitrite Ql (U) Negative [facility] Protein Ql (U) Trace [facility] No Panel InformationOrdered By: Dain Vaughn on 10-26-2024 Urine Leukocytes Positive [facility] Comment on above: trace Urine Non-Hemolyzed Blood Non-Hemolyzed [facility] Urgent Care Visit Reporton 0 10-26-2024 Urgent Care Visit Report Normal [facility] Urine cultureOrdered By: Estrada Vaughn on 10-26-2024 Bacteria identified Cx Nom (U) Presumptive E. coli Abnormal [facility] NATERAon 10-14-2024 NATURA SEE SCANNED REPORT Normal [facility] Comment on above: Performed By: #### L 900.0098 ####[facility] [address] [place], [address] Oncology Visit Reporton Oncology Visit Report Normal [facility] CA 15-3on 09-24-2024 CA 15-3 49.0 U/mL Abnormal 0.0-25.0 [facility] Comment on above: Result Comment: [employer] Electrochemiluminescence Immunoassay(ECLIA)Values obtained with different assay methods or kits cannotbe used interchangeably. Results cannot be interpreted asabsolute evidence of the presence or absence of malignantdisease.Performed at: [facility] [address] [id number] Director: Ervin Hitchcock PhD, Phone: [phone] Performed By: #### L 3100.5040, L100.0100, L3100.5030, L3100.2300, L500.4050 ####[facility] [address] [place], [address] CA 27.29on 09-24-2024 CA 27.29 66.5 U/mL Abnormal 0.0-38.6 [facility] Comment on above: Result Comment: [facility] [employer] Immunochemiluminometric Methodology (ICMA)Values obtained with different assay methods or kits cannotbe used interchangeably. Results cannot be interpreted asabsolute evidence of the presence or absence of malignantdisease. Performed By: #### L 3100.5040, L100.0100, L3100.5030, L3100.2300, L500.4050 ####[facility] [address] [place], [place], [address] Carcinoembryonic Antigenon 0 09-24-2024 CEA 0.9 ng/mL Normal 0.0-4.7 [facility] Comment on above: Result Comment: Nons mokers <3.9 Smokers <5.6[employer] Electrochemiluminescence Immunoassay(ECLIA)Values obtained with different assay methods or kitscannot be used interchangeably. Results cannot beinterpreted as absolute evidence of the presence orabsence of malignant disease. Performed By: #### L 3100.5040, L100.0100, L3100.5030, L3100.2300, L500.4050 ####[facility] [address] [place], [place], [address] Absolute lymphocyte countOrd ered By: Genna Armijo on 09-23-2024 Lymphocytes Auto (Unsp spec) [#/Vol] 2.23 10*3/uL 0.83-4.51 [facility] Absolute neutrophil countOrd ered By: Genna Armijo on 09-23-2024 Neutrophils (Bld) [#/Vol] 4.7 10*3/uL 2.0-7.7 [facility] Anion gap in Serum or Plasma Ordered By: Genna Armijo on 09-23-2024 Anion gap [Moles/Vol] 10 mmol/L 5-15 [facility] Automated lymphocyte count a s percentage of total leukocytesOrdered By: Genna Armijo on 09-23-2024 Lymphocytes/100 WBC Auto (Unsp spec) 29.7 % 19-41 [facility] BUN/creatinine ratioOrdered By: Genna Armijo on 09-23-2024 Urea nitrogen/Creatinine [Mass ratio] 32.8 mg/mg High 10-20 [facility] Basophil percentageOrdered B y: Genna Armijo on 09-23-2024 Basophils/100 WBC (Bld) 0.3 % 0-1 [facility] Bilirubin, totalOrdered By: Genna Armijo on 09-23-2024 Bilirubin [Mass/Vol] 0.30 mg/dL 0.00-1.30 [facility] CA 15-3Ordered By: Genna Cheryl abach on 09-23-2024 CA 15- 49.0 U/mL High 0.0-25.0 [facility] Comment on above: [employer] El ectrochemiluminescence Immunoassay(ECLIA)Values obtained with different assay methods or kits cannotbe used interchangeably. Results cannot be interpreted asabsolute evidence of the presence or absence of malignantdisease.Performed at: [facility] [address] [id number] Director: Ervin Hitchcock PhD, Phone: [phone] CA 27.Ordered By: Genna fuentes on 09-23-2024 CA 27.29 66.5 U/mL High 0.0-38.6 [facility] Comment on above: [employer] Immu nochemiluminometric Methodology (ICMA)Values obtained with different assay methods or kits cannotbe used interchangeably. Results cannot be interpreted asabsolute evidence of the presence or absence of malignantdisease. CBC W/Diff, Automatedon 09-07 Absolute Lymph 2.23 X10 3/uL Normal 0.83-4.51 [facility] Comment on above: Performed By: #### L 3100.5040, L100.0100, L3100.5030, L3100.2300, L500.4050 ####[facility] [address] [place], [place], [id number] Absolute Neut 4.7 X10 3/uL Normal 2.0-7.7 [facility] Comment on above: Performed By: #### L 3100.5040, L100.0100, L3100.5030, L3100.2300, L500.4050 ####[facility] [address] [place], [address] Basophils/100 WBC (Bld) 0.3 % Normal 0-1 [facility] Comment on above: Performed By: #### L 3100.5040, L100.0100, L3100.5030, L3100.2300, L500.4050 ####[facility] [address] [place], [address] Eosinophils/100 WBC (Bld) 1.1 % Normal 0-5 [facility] Comment on above: Performed By: #### L 3100.5040, L100.0100, L3100.5030, L3100.2300, L500.4050 ####[facility] [address] [place], [address] Erythrocyte distribution width (RBC) [Ratio] 13.4 % Normal 11.6-14.6 [facility] Comment on above: Performed By: #### L 3100.5040, L100.0100, L3100.5030, L3100.2300, L500.4050 ####[facility] [address] [place], [address] Hematocrit (Bld) [Volume fraction] 37.2 % Normal 37-47 [facility] Comment on above: Performed By: #### L 3100.5040, L100.0100, L3100.5030, L3100.2300, L500.4050 ####[facility] [address] [place], [address] Hemoglobin (Bld) [Mass/Vol] 11.9 g/dL Low 12.0-15.0 [facility] Comment on above: Performed By: #### L 3100.5040, L100.0100, L3100.5030, L3100.2300, L500.4050 ####[facility] [address] [place], [address] IG% 0.300 Normal 0.0-0.9 [facility] Comment on above: Result Comment: IG% - Immature Granulocytes (promyelocytes, myelocytes andmetamyelocytes) > 1% indicates that a LEFT SHIFT is Present. Performed By: #### L 3100.5040, L100.0100, L3100.5030, L3100.2300, L500.4050 ####[facility] [address] [place], [address] Lymphocytes/100 WBC (Bld) 29.7 % Normal 19-41 [facility] Comment on above: Performed By: #### L 3100.5040, L100.0100, L3100.5030, L3100.2300, L500.4050 ####[facility] [address] [place], [address] MCH (RBC) [Entitic mass] 30.0 pg Normal 27.0-32.0 [facility] Comment on above: Performed By: #### L 3100.5040, L100.0100, L3100.5030, L3100.2300, L500.4050 ####[facility] [address] [place], [address] MCHC (RBC) [Mass/Vol] 32.0 g/dL Normal 32-36 [facility] Comment on above: Performed By: #### L 3100.5040, L100.0100, L3100.5030, L3100.2300, L500.4050 ####[facility] [address] [place], [address] MCV (RBC) [Entitic vol] 93.7 fL Normal 81-99 [facility] Comment on above: Performed By: #### L 3100.5040, L100.0100, L3100.5030, L3100.2300, L500.4050 ####[facility] [address] [place], [address] Monocytes/100 WBC (Bld) 6.5 % Normal 0-10 [facility] Comment on above: Performed By: #### L 3100.5040, L100.0100, L3100.5030, L3100.2300, L500.4050 ####[facility] [address] [place], [address] Neutrophils/100 WBC (Bld) 62.1 % Normal 47-70 [facility] Comment on above: Performed By: #### L 3100.5040, L100.0100, L3100.5030, L3100.2300, L500.4050 ####[facility] [address] [place], [address] Nucleated RBC (Bld) [#/Vol] 0 10*3/uL Normal 0-5 [facility] Comment on above: Performed By: #### L 3100.5040, L100.0100, L3100.5030, L3100.2300, L500.4050 ####[facility] [address] [place], [address] Platelet mean volume (Bld) [Entitic vol] 9.3 fL Normal 6.2-12.0 [facility] Comment on above: Performed By: #### L 3100.5040, L100.0100, L3100.5030, L3100.2300, L500.4050 ####[facility] [address] [place], [address] Platelets (Bld) [#/Vol] 227 10*3/uL Normal 150-450 [facility] Comment on above: Performed By: #### L 3100.5040, L100.0100, L3100.5030, L3100.2300, L500.4050 ####[facility] [address] [place], [address] RBC (Bld) [#/Vol] 3.97 10*6/uL Low 4.2-5.4 [facility] Comment on above: Performed By: #### L 3100.5040, L100.0100, L3100.5030, L3100.2300, L500.4050 ####[facility] [address] [place], [address] RDW SD 45.9 fl High 35.1-43.9 [facility] Comment on above: Performed By: #### L 3100.5040, L100.0100, L3100.5030, L3100.2300, L500.4050 ####[facility] [address] [place], [address] WBC (Bld) [#/Vol] 7.5 10*3/uL Normal 4.4-11.0 [facility] Comment on above: Performed By: #### L 3100.5040, L100.0100, L3100.5030, L3100.2300, L500.4050 ####[facility] [address] [place], [address] Carbon dioxide, total [Moles /volume] in Central venous bloodOrdered By: Genna Armijo on 09-23-2024 CO2 [Moles/Vol] 25.9 mmol/L 21.0-32.0 [facility] Chloride assayOrdered By: Erwin Armijo on 09-23-2024 Chloride [Moles/Vol] 105 mmol/L 98-108 [facility] Comprehensive Metabolic Prof ilon 09-23-2024 Albumin [Mass/Vol] 4.3 g/dL Normal 3.5-5.0 [facility] Comment on above: Performed By: #### L 3100.5040, L100.0100, L3100.5030, L3100.2300, L500.4050 ####[facility] [address] [place], [address] Albumin/Globulin [Mass ratio] 1.7 {ratio} Normal 0.9-2.4 [facility] Comment on above: Performed By: #### L 3100.5040, L100.0100, L3100.5030, L3100.2300, L500.4050 ####[facility] [address] [place], [address] ALK PHOS 93 U/L Normal 35-104 [facility] Comment on above: Performed By: #### L 3100.5040, L100.0100, L3100.5030, L3100.2300, L500.4050 ####[facility] [address] [place], [address] ALT [Catalytic activity/Vol] 17 U/L Normal <=34 [facility] Comment on above: Performed By: #### L 3100.5040, L100.0100, L3100.5030, L3100.2300, L500.4050 ####[facility] [address] [place], [address] AST [Catalytic activity/Vol] 24 U/L Normal <=31 [facility] Comment on above: Performed By: #### L 3100.5040, L100.0100, L3100.5030, L3100.2300, L500.4050 ####[facility] [address] [place], [address] Bilirubin [Mass/Vol] 0.30 mg/dL Normal 0.00-1.30 [facility] Comment on above: Performed By: #### L 3100.5040, L100.0100, L3100.5030, L3100.2300, L500.4050 ####[facility] [address] [place], [address] BUN/CRE 32.8 RATIO High 10-20 [facility] [facility] Comment on above: Performed By: #### L 3100.5040, L100.0100, L3100.5030, L3100.2300, L500.4050 ####[facility] [address] [place], [address] Calcium [Mass/Vol] 10.7 mg/dL Normal 7.6-11.0 [facility] Comment on above: Performed By: #### L 3100.5040, L100.0100, L3100.5030, L3100.2300, L500.4050 ####[facility] [address] [place], [address] Chloride [Moles/Vol] 105 mmol/L Normal 98-108 [facility] Comment on above: Performed By: #### L 3100.5040, L100.0100, L3100.5030, L3100.2300, L500.4050 ####[facility] [address] [place], [address] CO2 [Moles/Vol] 25.9 mmol/L Normal 21.0-32.0 [facility] Comment on above: Performed By: #### L 3100.5040, L100.0100, L3100.5030, L3100.2300, L500.4050 ####[facility] [address] [place], [address] Creatinine [Mass/Vol] 0.76 mg/dL Normal 0.70-1.20 [facility] Comment on above: Performed By: #### L 3100.5040, L100.0100, L3100.5030, L3100.2300, L500.4050 ####[facility] [address] [place], [address] ECRCL 104.87 ml/min Normal 50-250 [facility] Comment on above: Performed By: #### L 3100.5040, L100.0100, L3100.5030, L3100.2300, L500.4050 ####[facility] [address] [place], [address] GAP 10 Normal 5-15 [facility] Comment on above: Performed By: #### L 3100.5040, L100.0100, L3100.5030, L3100.2300, L500.4050 ####[facility] [address] [place], [address] GFR/1.73 sq M.predicted among non-blacks MDRD (S/P/Bld) [Vol rate/Area] 93 mL/min/{1.73_m2} Normal >60 [facility] Comment on above: Result Comment: mL/m in/1.73m2 CKD-EPI Creatinine Equation (2020) Performed By: #### L 3100.5040, L100.0100, L3100.5030, L3100.2300, L500.4050 ####[facility] [address] [place], [address] Globulin (S) [Mass/Vol] 2.5 g/dL Normal 2.2-4.2 [facility] Comment on above: Performed By: #### L 3100.5040, L100.0100, L3100.5030, L3100.2300, L500.4050 ####[facility] [address] [place], [address] Glucose [Mass/Vol] 107 mg/dL High 70-99 [facility] Comment on above: Performed By: #### L 3100.5040, L100.0100, L3100.5030, L3100.2300, L500.4050 ####[facility] [address] [place], [address] Potassium [Moles/Vol] 4.3 mmol/L Normal 3.3-5.1 [facility] Comment on above: Performed By: #### L 3100.5040, L100.0100, L3100.5030, L3100.2300, L500.4050 ####[facility] [address] [place], [address] Sodium [Moles/Vol] 141 mmol/L Normal 133-145 [facility] Comment on above: Performed By: #### L 3100.5040, L100.0100, L3100.5030, L3100.2300, L500.4050 ####[facility] [address] [place], [address] T PROT 6.7 g/dL Normal 5.9-8.4 [facility] Comment on above: Performed By: #### L 3100.5040, L100.0100, L3100.5030, L3100.2300, L500.4050 ####[facility] [address] [place], [address] Urea nitrogen [Mass/Vol] 25 mg/dL High 4-19 [facility] Comment on above: Performed By: #### L 3100.5040, L100.0100, L3100.5030, L3100.2300, L500.4050 ####[facility] [address] [place], [address] Eosinophil percentageOrdered By: Genna Armijo on 09-23-2024 Eosinophils/100 WBC (Bld) 1.1 % 0-5 [facility] Erythrocyte distribution wid th ratioOrdered By: Genna Armijo on 09-23-2024 Erythrocyte distribution width (RBC) [Ratio] 13.4 % 11.6-14.6 [facility] Erythrocyte distribution wid th standard deviationOrdered By: Genna Armijo on 09-23-2024 Erythrocyte distribution width (RBC) [Ratio] 45.9 fl High 35.1-43.9 [facility] Glomerular filtration rate ( GFR) estimation/1.73 sq m using serum, plasma, or whole bOrdered By: Genna Armijo on 09-23-2024 GFR/1.73 sq M.predicted among non-blacks MDRD (S/P/Bld) [Vol rate/Area] 93 mL/min/{1.73_m2} >60 [facility] Comment on above: mL/min/1.73m2 CKD-EP I Creatinine Equation (2020) Hematocrit Auto (Bld) [Volum e fraction]Ordered By: Genna Armijo on 09-23-2024 Hematocrit (Bld) [Volume fraction] 37.2 % 37-47 [facility] Hemoglobin measurementOrdere d By: Genna Armijo on 09-23-2024 Hemoglobin (Bld) [Mass/Vol] 11.9 g/dL Low 12.0-15.0 [facility] Immature granulocytes/100 WB C Auto (Bld)Ordered By: Genna Armijo on 09-23-2024 Immature granulocytes/100 WBC (Bld) 0.300 % 0.0-0.9 [facility] Comment on above: IG% - Immature Granu locytes (promyelocytes, myelocytes and metamyelocytes) > 1% indicates that a LEFT SHIFT is Present. Laboratory - Chemistry and C hemistry - challengeOrdered By: Genna Armijo on 09-23-2024 AST [Catalytic activity/Vol] 24 U/L <32 [facility] MCV (mean corpuscular volume ) determinationOrdered By: Genna Armijo on 09-23-2024 MCV (RBC) [Entitic vol] 93.7 fL 81-99 [facility] Mean corpuscular hemoglobin (MCH) determinationOrdered By: Genna Armijo on 09-23-2024 MCH (RBC) [Entitic mass] 30.0 pg 27.0-32.0 [facility] Mean corpuscular hemoglobin concentration (MCHC) determinationOrdered By: Genna Armijo on 09-23-2024 MCHC (RBC) [Mass/Vol] 32.0 g/dL 32-36 [facility] Mean platelet volume determi nationOrdered By: Genna Armijo on 09-23-2024 Platelet mean volume (Bld) [Entitic vol] 9.3 fL 6.2-12.0 [facility] Monocyte percentageOrdered B y: Genna Armijo on 09-23-2024 Monocytes/100 WBC (Bld) 6.5 % 0-10 [facility] Neutrophil percentageOrdered By: Genna Armijo on 09-23-2024 Neutrophils/100 WBC (Bld) 62.1 % 47-70 [facility] Nucleated red blood cell per centageOrdered By: Genna Armijo on 09-23-2024 Nucleated RBC/100 WBC (Bld) [Ratio] 0 % 0-5 [facility] Oncology Visit Reporton 09-07 Oncology Visit Report Normal [facility] Platelet countOrdered By: Erwin Armijo on 09-23-2024 Platelets (Bld) [#/Vol] 227 10*3/uL 150-450 [facility] Potassium measurement (mass/ volume)Ordered By: Genna Armijo on 09-23-2024 Potassium (Unsp spec) [Mass/Vol] 4.3 mmol/L 3.3-5.1 [facility] RBC Auto (Bld) [#/Vol]Ordere d By: Genna Armijo on 09-23-2024 RBC (Bld) [#/Vol] 3.97 10*6/uL Low 4.2-5.4 [facility] Serum creatinine measurement (mass/volume)Ordered By: Genna Armijo on 09-23-2024 Creatinine [Mass/Vol] 0.76 mg/dL 0.70-1.20 [facility] Serum globulin measurementOr dered By: Genna Armijo on 09-23-2024 Globulin (S) [Mass/Vol] 2.5 g/dL 2.2-4.2 [facility] Serum glucose measurement (m ass/volume)Ordered By: Genna Armijo on 09-23-2024 Glucose [Mass/Vol] 107 mg/dL High 70-99 [facility] Serum or plasma alanine alonzo otransferase (ALT) measurementOrdered By: Genna Armijo on 09-23-2024 ALT [Catalytic activity/Vol] 17 U/L <35 [facility] Serum or plasma albumin paul urement (mass/volume)Ordered By: Genna Armijo on 09-23-2024 Albumin [Mass/Vol] 4.3 g/dL 3.5-5.0 [facility] Serum or plasma albumin/glob ulin mass ratioOrdered By: Genna Armijo on 09-23-2024 Albumin/Globulin [Mass ratio] 1.7 {ratio} 0.9-2.4 [facility] Serum or plasma alkaline ubaldo sphatase measurementOrdered By: Genna Armijo on 09-23-2024 ALP [Catalytic activity/Vol] 93 U/L 35-104 [facility] Serum or plasma calcium paul urement (mass/volume)Ordered By: Genna Armijo on 09-23-2024 Calcium [Mass/Vol] 10.7 mg/dL 7.6-11.0 [facility] Serum or plasma carcinoembry onic antigen measurement (mass/volume)Ordered By: Genna Armijo on 09-23-2024 Carcinoembryonic Ag [Mass/Vol] 0.9 ng/mL 0.0-4.7 [facility] Comment on above: Nonsmokers <3.9 Smok ers <5.6[employer] Electrochemiluminescence Immunoassay(ECLIA)Values obtained with different assay methods or kitscannot be used interchangeably. Results cannot beinterpreted as absolute evidence of the presence orabsence of malignant disease. Serum or plasma urea nitroge n measurement (mass/volume)Ordered By: Genna Armijo on 09-23-2024 Urea nitrogen [Mass/Vol] 25 mg/dL High 4-19 [facility] Sodium levelOrdered By: Genna Armijo on 09-23-2024 Sodium [Moles/Vol] 141 mmol/L 133-145 [facility] Total proteinOrdered By: David Armijo on 09-23-2024 Protein [Mass/Vol] 6.7 g/dL 5.9-8.4 [facility] White blood cell (WBC) count Ordered By: Genna Armijo on 09-23-2024 WBC (Bld) [#/Vol] 7.5 10*3/uL 4.4-11.0 [facility] Venous Duplex US, Unilateral on 09-17-2024 Venous Duplex US, Unilateral Normal [facility] Venous duplex ultrasound rep ortOrdered By: Wyatt Patel on 09-17-2024 US Vein [facility] [address] [place] [address] Venous Duplex US, Unilateral 09/17/24 1457 MR#: [id number] Acct: [id number] Name: LISSETT RUSSELL Rep #:[id number] : 1970 54 From: Wyatt Patel MD Attending Dr: Dr. Dain Serrano MD Status: REG CLI Ordering Dr: Dain Serrano MD Date: 0 09/17/24 Location: [facility] Sex: F C Admitted: Reason For Study Reason For Study: Left leg pain RIGHT LEFT CFV is compressible, spontaneous, phasic, competent GSV is normal. and demonstrates normal augmentation. CFV is compressible, spontaneous, phasic, competent, Procedure and demonstrates normal augmentation. This is a venous duplex using B-mode, color flow and FV is compressible, spontaneous, phasic, competent spectral Doppler. and demonstrates normal augmentation. Exam performed in department. POP V is compressible, spontaneous, phasic, competent A preliminary report was called and/or faxed to and demonstrates normal augmentation. Navya. T/P Trunk is compressible. PTV is compressible. LT PerV is compressible. Nonvascularized structure noted in the left popliteal fossa that measures 0.72 x 2.75 x 4.58 cm. VL/Venous Duplex US, Unilateral Interpretation Summary Deep veins of the left lower extremity are patent and compressible segmentally. There is no evidence of left lower extremity deep vein thrombosis. Valvular competence appears intact within the proximal deep venous system on the left . The left great saphenous vein appears patent and compressible segmentally. A non-vascular, hypoechoic structure is noted in the left popliteal space, measuring 0.72 cm x 2.75 cm x 4.58 cm. This probably represents a popliteal cyst. Clinical correlation is advised. The right common femoral vein is patent and compressible. Ordering Physician: Dain Serrano Referring Physician: Blue Alicia Performed By: Yazmin Anne RVT 09/17/241758 Date _ Wyatt Patel MD CC: Dr. Dain Serrano MD; LARA Gomez ~ Date Dictated: 09/17/241456 Date Transcribed: 09/17/241758 [employer] Clearing Agent: Signed [facility] Other Phone: Oncology Visit Reporton 08-08 Oncology Visit Report Normal [facility] Echocardiogram study reportO rdered By: Jesus Varma on 08-31-2024 Study report [facility] [address] 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 Myocardial strain analysis was performed in this exam to aid in the assessment of cardiac function. Technically difficult study, patient had a hard time staying on left side due to recent left knee surgery (08/2024). Exam performed in department. Left Ventricle Normal LV size. The global longitudinal strain = -20.1 % (normal). No regional wall motion abnormalities noted. Right Ventricle Normal RV size. Normal systolic function. Atria Normal left atrium. Normal right atrium. Mitral Valve Normal mitral valve. Tricuspid Valve Normal tricuspid valve. Aortic Valve Trisinus/trileaflet aortic valve. Pulmonic Valve Normal pulmonic valve. Great Vessels Normal aortic root. The pulmonary artery is normal size. Normal inferior vena cava. Pericardium/Pleural No pericardial effusion. MMode/2D Measurements & Calculations LVIDd: 5.2 cm IVSd: 1.1 cm Ao root diam: 3.4 cm LVIDs: 3.4 cm LVPWd: 0.99 cm RVDd: 3.4 cm FS: 33.7 % __ LAV(MOD-sp2): 47.4 ml LA dimension(2D): 2.8 cm TAPSE: 3.0 cm Time Measurements MV dec time: 0.16 sec Doppler Measurements & Calculations MV E max boyd: 83.9 cm/sec Lat Peak E' Boyd: 20.1 cm/sec Med Peak E' Boyd: 11.4 cm/sec MV A max boyd: 63.0 cm/sec E/E' lat: 4.2 E/E' med: 7.4 MV E/A: 1.3 __ MV V2 max: 89.3 cm/sec MV P1/2t max boyd: 88.3 cm/sec Ao V2 max: 155.7 cm/sec MV max P.2 mmHg MV P1/2t: 54.1 msec Ao max P.7 mmHg MV V2 mean: 48.1 cm/sec Ao V2 mean: 107.2 cm/sec MV mean P.1 mmHg MV dec slope: 478.1 cm/sec2 Ao mean P.2 mmHg MV V2 VTI: 22.9 cm MVA(P1/2t): 4.1 cm2 Ao V2 VTI: 33.8 cm __ LV V1 max: 123.3 cm/sec PA V2 max: 111.0 cm/sec LV V1 max P.1 mmHg ECHO/ONC Echo Complete Interpretation Summary Normal LV size. The global longitudinal strain = -20.1 % (normal). The global longitudinal strain is normal. The global longitudinal strain = -20.1% (normal). Structurally normal valves. Ordering Physician: Genna Armijo Referring Physician: Genna Armijo Performed By: Seamus Carson RCS 08/31/24 1533 Date _ Jesus Varma MD CC: OUTREACH LIBRARIAN-C Genna Armijo; LARA Gomez ~ Date Dictated: 08/31/24 1110 Date Transcribed: 08/31/24 153 [employer] Clearing Agent: Signed [facility] Work Phone: ONC Echo Completeon 09-01-19 ONC Echo Complete Normal [facility] Bilirubin directOrdered By: Carly Carrasquillo on 08-17-2024 Bilirubin.direct [Mass/Vol] 0.14 mg/dL 0.00-0.30 [facility] Bilirubin, totalOrdered By: Carly Carrasquillo on 08-17-2024 Bilirubin [Mass/Vol] 0.29 mg/dL 0.00-1.30 [facility] Calculated very low density lipoprotein (VLDL) cholesterol measurementOrdered By: Carly Carrasquillo on 08-17-2024 Calculated very low density lipoprotein (VLDL) cholesterol measurement 45 mg/dL High 5-40 [facility] VLDL Cholesterol 45 mg/dL High 5-40 [facility] LDL calc ser/plasOrdered By: Carly Carrasquillo on 08-17-2024 Cholesterol in LDL [Mass/Vol] 60 mg/dL [facility] Comment on above: Zjvrpgysuj=909-696 m g/dL & Higher Zahd=687 mg/dL or greater LDL Cholesterol, Calculated 60 mg/dL [facility] Comment on above: Yebwoatvui=416-556 m g/dL & Higher Gqxl=337 mg/dL or greater Laboratory - Chemistry and C hemistry - challengeOrdered By: Carly Carrasquillo on 08-17-2024 AST [Catalytic activity/Vol] 34 U/L High <32 [facility] Lipid Profileon 08-17-2024 CHOL:HDL 2.92 Normal [facility] Comment on above: Performed By: #### L 500.4100, L500.3400 ####[facility] [address] [place], [place], [id number] Cholesterol [Mass/Vol] 159 mg/dL Normal <=200 [facility] Comment on above: Result Comment: Chol esterol level, Desirable <200 mg/dLBorderline high cholesterol 200-239 mg/dLHigh cholesterol >=240 mg/dLRecommendations of the NCEP Adult Treatment Panel for thefollowing risk-cutoff thresholds for the [place] Americanpulation. Performed By: #### L 500.4100, L500.3400 ####[facility] [address] [place], [place], [id number] Cholesterol in HDL [Mass/Vol] 55 mg/dL Normal [facility] Comment on above: Result Comment: Lisa onal Cholesterol Education Program (NCEP) guidelines:<40 mg/dL: Low HDL-cholesterol (major risk factor for CHD)>= 60 mg/dL: High HDL-cholesterol (negative risk factor forCHD)HDL-cholesterol is affected by a number of factors, e.g.smoking, exercise, hormones, sex and age. Performed By: #### L 500.4100, L500.3400 ####[facility] [address] [place], [address] Cholesterol in LDL [Mass/Vol] 60 mg/dL Normal [facility] Comment on above: Result Comment: Bord ldcjcd=731-247 mg/dL Higher Vtha=018 mg/dL or greater Performed By: #### L 500.4100, L500.3400 ####[facility] [address] [place], [address] Cholesterol in VLDL [Mass/Vol] 45 mg/dL High 5-40 [facility] Comment on above: Performed By: #### L 500.4100, L500.3400 ####[facility] [address] [place], [address] Triglyceride [Mass/Vol] 224 mg/dL High [facility] Comment on above: Result Comment: The drugs N-Acetylcysteine and Metamizole may falselydepress this assay.Normal range: <150 mg/dLBorderline High: 150-199 mg/dLHigh: 200-499 mg/dLVery High: >500 mg/dL Performed By: #### L 500.4100, L500.3400 ####[facility] [address] [place], [address] Liver Profileon 08-17-2024 Albumin [Mass/Vol] 4.4 g/dL Normal 3.5-5.0 [facility] Comment on above: Performed By: #### L 500.4100, L500.3400 ####[facility] [address] [place], [address] ALK PHOS 68 U/L Normal 35-104 [facility] Comment on above: Performed By: #### L 500.4100, L500.3400 ####[facility] [address] [place], [address] ALT [Catalytic activity/Vol] 30 U/L Normal <=34 [facility] Comment on above: Performed By: #### L 500.4100, L500.3400 ####[facility] [address] [place], [address] AST [Catalytic activity/Vol] 34 U/L High <=31 [facility] Comment on above: Performed By: #### L 500.4100, L500.3400 ####[facility] [address] [place], [address] Bilirubin [Mass/Vol] 0.29 mg/dL Normal 0.00-1.30 [facility] Comment on above: Performed By: #### L 500.4100, L500.3400 ####[facility] [address] [place], [address] Bilirubin.direct [Mass/Vol] 0.14 mg/dL Normal 0.00-0.30 [facility] Comment on above: Performed By: #### L 500.4100, L500.3400 ####[facility] [address] [place], [address] Globulin (S) [Mass/Vol] 2.6 g/dL Normal 2.2-4.2 [facility] Comment on above: Performed By: #### L 500.4100, L500.3400 ####[facility] [address] [place], [address] T PROT 7.0 g/dL Normal 5.9-8.4 [facility] Comment on above: Performed By: #### L 500.4100, L500.3400 ####[facility] [address] [place], [address] Screening total cholesterol/ high density lipoprotein (HDL) cholesterol ratioOrdered By: Carly Carrasquillo on 08-17-2024 Cholesterol.total/Chol esterol in HDL [Mass ratio] 2.92 {ratio} [facility] Serum globulin measurementOr dered By: Carly Carrasquillo on 08-17-2024 Globulin (S) [Mass/Vol] 2.6 g/dL 2.2-4.2 [facility] Serum or plasma alanine alonzo otransferase (ALT) measurementOrdered By: Carly Carrasquillo on 08-17-2024 ALT [Catalytic activity/Vol] 30 U/L <35 [facility] Serum or plasma albumin paul urement (mass/volume)Ordered By: Carly Carrasquillo on 08-17-2024 Albumin [Mass/Vol] 4.4 g/dL 3.5-5.0 [facility] Serum or plasma alkaline ubaldo sphatase measurementOrdered By: Carly Carrasquillo on 08-17-2024 ALP [Catalytic activity/Vol] 68 U/L 35-104 [facility] Serum or plasma cholesterol in HDL measurement (mass/volume)Ordered By: Carly Carrasquillo on 08-17-2024 Cholesterol in HDL [Mass/Vol] 55 mg/dL >40 [facility] Comment on above: National Cholesterol Education Program (NCEP) guidelines:<40 mg/dL: Low HDL-cholesterol (major risk factor for CHD)>= 60 mg/dL: High HDL-cholesterol (negative risk factor for CHD)HDL-cholesterol is affected by a number of factors, e.g. smoking, exercise, hormones, sex and age. Serum or plasma cholesterol measurement (mass/volume)Ordered By: Carly Carrasquillo on 08-17-2024 Cholesterol [Mass/Vol] 159 mg/dL <201 [facility] Comment on above: Cholesterol level, D esirable <200 mg/dLBorderline high cholesterol 200-239 mg/dLHigh cholesterol >=240 mg/dLRecommendations of the NCEP Adult Treatment Panel for the following risk-cutoff thresholds for the [place] population. Total proteinOrdered By: Jeff Carrasquillo on 08-17-2024 Protein [Mass/Vol] 7.0 g/dL 5.9-8.4 [facility] Triglycerides measurementOrd ered By: Carly Carrasquillo on 08-17-2024 Triglyceride [Mass/Vol] 224 mg/dL High <199 [facility] Comment on above: The drugs N-Acetylcy steine and Metamizole may falsely depress this assay. Normal range: <150 mg/dLBorderline High: 150-199 mg/dLHigh: 200-499 mg/dLVery High: >500 mg/dL Absolute neutrophil countOrd ered By: Genna Armijo on 08-12-2024 Neutrophils (Bld) [#/Vol] 4.5 10*3/uL 2.0-7.7 [facility] Anion gap in Serum or Plasma Ordered By: Genna Armijo on 08-12-2024 Anion gap [Moles/Vol] 11 mmol/L 5-15 [facility] BUN/creatinine ratioOrdered By: Genna Armijo on 08-12-2024 Urea nitrogen/Creatinine [Mass ratio] 25.6 mg/mg High 10-20 [facility] Basophil percentageOrdered B y: Genna Armijo on 08-12-2024 Basophils/100 WBC (Bld) 0.4 % 0-1 [facility] Bilirubin, totalOrdered By: Genna Armijo on 08-12-2024 Bilirubin [Mass/Vol] mg/dL 0.00-1.30 [facility] CBC W/Diff, Automatedon Absolute Lymph 2.41 X10 3/uL Normal 0.83-4.51 [facility] Comment on above: Order Comment: DR. Stephen SERRANO ORDERED BMP, CBCD, ALBUMINNP.Seth CHERYALEKSANDER ORDERED CMP, CBCD, Performed By: #### L 500.4050, L100.0100 ####[facility] [address] [place], [address] Absolute Neut 4.5 X10 3/uL Normal 2.0-7.7 [facility] Comment on above: Order Comment: DR. Stephen SERRANO ORDERED BMP, CBCD, ALBUMINNP.T ALEKSANDER ORDERED CMP, CBCD, Performed By: #### L 500.4050, L100.0100 ####[facility] [address] [place], [address] Basophils/100 WBC (Bld) 0.4 % Normal 0-1 [facility] Comment on above: Order Comment: DR. Stephen SERRANO ORDERED BMP, CBCD, ALBUMINNP.T ALEKSANDER ORDERED CMP, CBCD, Performed By: #### L 500.4050, L100.0100 ####[facility] [address] [place], [address] Eosinophils/100 WBC (Bld) 0.9 % Normal 0-5 [facility] Comment on above: Order Comment: DR. Stephen SERRANO ORDERED BMP, CBCD, ALBUMINNP.T ALEKSANDER ORDERED CMP, CBCD, Performed By: #### L 500.4050, L100.0100 ####[facility] [address] [place], [address] Erythrocyte distribution width (RBC) [Ratio] 13.6 % Normal 11.6-14.6 [facility] Comment on above: Order Comment: DR. Stephen SERRANO ORDERED BMP, CBCD, ALBUMINNP.T ALEKSANDER ORDERED CMP, CBCD, Performed By: #### L 500.4050, L100.0100 ####[facility] [address] [place], [address] Hematocrit (Bld) [Volume fraction] 40.5 % Normal 37-47 [facility] Comment on above: Order Comment: DR. Stephen SERRANO ORDERED BMP, CBCD, ALBUMINNP.T ALEKSANDER ORDERED CMP, CBCD, Performed By: #### L 500.4050, L100.0100 ####[facility] [address] [place], [address] Hemoglobin (Bld) [Mass/Vol] 13.4 g/dL Normal 12.0-15.0 [facility] Comment on above: Order Comment: DR. Stephen SERRANO ORDERED BMP, CBCD, ALBUMINNP.T ALEKSANDER ORDERED CMP, CBCD, Performed By: #### L 500.4050, L100.0100 ####[facility] [address] [place], [address] IG% 0.400 Normal 0.0-0.9 [facility] Comment on above: Order Comment: DR. Stephen SERRANO ORDERED BMP, CBCD, ALBUMINNP.T ALEKSANDER ORDERED CMP, CBCD, Result Comment: IG% - Immature Granulocytes (promyelocytes, myelocytes andmetamyelocytes) > 1% indicates that a LEFT SHIFT is Present. Performed By: #### L 500.4050, L100.0100 ####[facility] [address] [place], [address] Lymphocytes/100 WBC (Bld) 31.7 % Normal 19-41 [facility] Comment on above: Order Comment: DR. Stephen SERRANO ORDERED BMP, CBCD, ALBUMINNP.T ALEKSANDER ORDERED CMP, CBCD, Performed By: #### L 500.4050, L100.0100 ####[facility] [address] [place], [address] MCH (RBC) [Entitic mass] 31.1 pg Normal 27.0-32.0 [facility] Comment on above: Order Comment: DR. Stephen SERRANO ORDERED BMP, CBCD, ALBUMINNP.T ALEKSANDER ORDERED CMP, CBCD, Performed By: #### L 500.4050, L100.0100 ####[facility] [address] [place], [address] MCHC (RBC) [Mass/Vol] 33.1 g/dL Normal 32-36 [facility] Comment on above: Order Comment: DR. Stephen SERRANO ORDERED BMP, CBCD, ALBUMINNP.T ALEKSANDER ORDERED CMP, CBCD, Performed By: #### L 500.4050, L100.0100 ####[facility] [address] [place], [address] MCV (RBC) [Entitic vol] 94.0 fL Normal 81-99 [facility] Comment on above: Order Comment: DR. Stephen SERRANO ORDERED BMP, CBCD, ALBUMINNP.T ALEKSANDER ORDERED CMP, CBCD, Performed By: #### L 500.4050, L100.0100 ####[facility] [address] [place], [address] Monocytes/100 WBC (Bld) 7.8 % Normal 0-10 [facility] Comment on above: Order Comment: DR. Stephen SERRANO ORDERED BMP, CBCD, ALBUMINNP.T ALEKSANDER ORDERED CMP, CBCD, Performed By: #### L 500.4050, L100.0100 ####[facility] [address] [place], [address] Neutrophils/100 WBC (Bld) 58.8 % Normal 47-70 [facility] Comment on above: Order Comment: DR. Stephen SERRANO ORDERED BMP, CBCD, ALBUMINNP.T ALEKSANDER ORDERED CMP, CBCD, Performed By: #### L 500.4050, L100.0100 ####[facility] [address] [place], [address] Nucleated RBC (Bld) [#/Vol] 0 10*3/uL Normal 0-5 [facility] Comment on above: Order Comment: DR. Stephen SERRANO ORDERED BMP, CBCD, ALBUMINNP.T ALEKSANDER ORDERED CMP, CBCD, Performed By: #### L 500.4050, L100.0100 ####[facility] [address] [place], [address] Platelet mean volume (Bld) [Entitic vol] 9.7 fL Normal 6.2-12.0 [facility] Comment on above: Order Comment: DR. Stephen SERRANO ORDERED BMP, CBCD, ALBUMINNP.T ALEKSANDER ORDERED CMP, CBCD, Performed By: #### L 500.4050, L100.0100 ####[facility] [address] [place], [address] Platelets (Bld) [#/Vol] 205 10*3/uL Normal 150-450 [facility] Comment on above: Order Comment: DR. Stephen SERRANO ORDERED BMP, CBCD, ALBUMINNP.T ALEKSANDER ORDERED CMP, CBCD, Performed By: #### L 500.4050, L100.0100 ####[facility] [address] [place], [address] RBC (Bld) [#/Vol] 4.31 10*6/uL Normal 4.2-5.4 [facility] Comment on above: Order Comment: DR. Stephen SERRANO ORDERED BMP, CBCD, ALBUMINNP.T ALEKSANDER ORDERED CMP, CBCD, Performed By: #### L 500.4050, L100.0100 ####[facility] [address] [place], [address] RDW SD 47.0 fl High 35.1-43.9 [facility] Comment on above: Order Comment: DR. Stephen SERRANO ORDERED BMP, CBCD, ALBUMINNP.T ALEKSANDER ORDERED CMP, CBCD, Performed By: #### L 500.4050, L100.0100 ####[facility] [address] [place], [address] WBC (Bld) [#/Vol] 7.6 10*3/uL Normal 4.4-11.0 [facility] Comment on above: Order Comment: DR. Stephen SERRANO ORDERED BMP, CBCD, ALBUMINNP.T ALEKSANDER ORDERED CMP, CBCD, Performed By: #### L 500.4050, L100.0100 ####[facility] [address] [place], [address] Carbon dioxide, total [Moles /volume] in Central venous bloodOrdered By: Genna Armijo on 08-12-2024 CO2 [Moles/Vol] 23.1 mmol/L 21.0-32.0 [facility] Chloride assayOrdered By: Erwin Armijo on 08-12-2024 Chloride [Moles/Vol] 105 mmol/L 98-108 [facility] Comprehensive Metabolic Prof ilon 08-12-2024 Albumin [Mass/Vol] 4.3 g/dL Normal 3.5-5.0 [facility] Comment on above: Order Comment: DR. Stephen SERRANO ORDERED BMP, CBCD, ALBUMINNP.T ALEKSANDER ORDERED CMP, CBCD, Performed By: #### L 500.4050, L100.0100 ####[facility] [address] [place], [address] Albumin/Globulin [Mass ratio] 1.7 {ratio} Normal 0.9-2.4 [facility] Comment on above: Order Comment: DR. Stephen SERRANO ORDERED BMP, CBCD, ALBUMINNP.T ALEKSANDER ORDERED CMP, CBCD, Performed By: #### L 500.4050, L100.0100 ####[facility] [address] [place], [address] ALK PHOS 62 U/L Normal 35-104 [facility] Comment on above: Order Comment: DR. Stephen SERRANO ORDERED BMP, CBCD, ALBUMINNP.T ALEKSANDER ORDERED CMP, CBCD, Performed By: #### L 500.4050, L100.0100 ####[facility] [address] [place], [address] ALT [Catalytic activity/Vol] 37 U/L High <=34 [facility] Comment on above: Order Comment: DR. Stephen SERRANO ORDERED BMP, CBCD, ALBUMINNP.T ALEKSANDER ORDERED CMP, CBCD, Performed By: #### L 500.4050, L100.0100 ####[facility] [address] [place], [address] AST [Catalytic activity/Vol] 39 U/L High <=31 [facility] Comment on above: Order Comment: DR. Stephen SERRANO ORDERED BMP, CBCD, ALBUMINNP.T ALEKSANDER ORDERED CMP, CBCD, Result Comment: Hemo lysis present, Results??could be affected.?? Performed By: #### L 500.4050, L100.0100 ####[facility] [address] [place], [address] BUN/CRE 25.6 RATIO High 10-20 [facility] Comment on above: Order Comment: DR. Stephen SERRANO ORDERED BMP, CBCD, ALBUMINNP.T ALEKSANDER ORDERED CMP, CBCD, Performed By: #### L 500.4050, L100.0100 ####[facility] [address] [place], [address] Calcium [Mass/Vol] 10.4 mg/dL Normal 7.6-11.0 [facility] Comment on above: Order Comment: DR. Stephen SERRANO ORDERED BMP, CBCD, ALBUMINNP.T ALEKSANDER ORDERED CMP, CBCD, Performed By: #### L 500.4050, L100.0100 ####[facility] [address] [place], [address] Chloride [Moles/Vol] 105 mmol/L Normal 98-108 [facility] Comment on above: Order Comment: DR. Stephen SERRANO ORDERED BMP, CBCD, ALBUMINNP.T ALEKSANDER ORDERED CMP, CBCD, Performed By: #### L 500.4050, L100.0100 ####[facility] [address] [place], [address] CO2 [Moles/Vol] 23.1 mmol/L Normal 21.0-32.0 [facility] Comment on above: Order Comment: DR. Stephen SERRANO ORDERED BMP, CBCD, ALBUMINNP.T ALEKSANDER ORDERED CMP, CBCD, Performed By: #### L 500.4050, L100.0100 ####[facility] [address] [place], [address] Creatinine [Mass/Vol] 0.72 mg/dL Normal 0.70-1.20 [facility] Comment on above: Order Comment: DR. Stephen SERRANO ORDERED BMP, CBCD, ALBUMINNP.T ALEKSANDER ORDERED CMP, CBCD, Performed By: #### L 500.4050, L100.0100 ####[facility] [address] [place], [address] ECRCL 112.35 ml/min Normal 50-250 [facility] Comment on above: Order Comment: DR. Stephen SERRANO ORDERED BMP, CBCD, ALBUMINNP.T ALEKSANDER ORDERED CMP, CBCD, Performed By: #### L 500.4050, L100.0100 ####[facility] [address] [place], [address] GAP 11 Normal 5-15 [facility] Comment on above: Order Comment: DR. Stephen SERRANO ORDERED BMP, CBCD, ALBUMINNP.T ALEKSANDER ORDERED CMP, CBCD, Performed By: #### L 500.4050, L100.0100 ####[facility] [address] [place], [address] GFR/1.73 sq M.predicted among non-blacks MDRD (S/P/Bld) [Vol rate/Area] 100 mL/min/{1.73_m2} Normal >60 [facility] Comment on above: Order Comment: DR. Stephen SERRANO ORDERED BMP, CBCD, ALBUMINNP.T ALEKSANDER ORDERED CMP, CBCD, Result Comment: mL/m in/1.73m2 CKD-EPI Creatinine Equation (2020) Performed By: #### L 500.4050, L100.0100 ####[facility] [address] [place], [address] Globulin (S) [Mass/Vol] 2.5 g/dL Normal 2.2-4.2 [facility] Comment on above: Order Comment: DR. Stephen SERRANO ORDERED BMP, CBCD, ALBUMINNP.T ALEKSANDER ORDERED CMP, CBCD, Performed By: #### L 500.4050, L100.0100 ####[facility] [address] [place], [address] Glucose [Mass/Vol] 103 mg/dL High 70-99 [facility] Comment on above: Order Comment: DR. Stephen SERRANO ORDERED BMP, CBCD, ALBUMINNP.T ALEKSANDER ORDERED CMP, CBCD, Performed By: #### L 500.4050, L100.0100 ####[facility] [address] [place], [address] Potassium [Moles/Vol] 4.2 mmol/L Normal 3.3-5.1 [facility] Comment on above: Order Comment: DR. Stephen SERRANO ORDERED BMP, CBCD, ALBUMINNP.T ALEKSANDER ORDERED CMP, CBCD, Result Comment: Hemo lysis present, Results??could be affected.?? Performed By: #### L 500.4050, L100.0100 ####[facility] [address] [place], [address] Sodium [Moles/Vol] 140 mmol/L Normal 133-145 [facility] Comment on above: Order Comment: DR. Stephen SERRANO ORDERED BMP, CBCD, ALBUMINNP.T ALEKSANDER ORDERED CMP, CBCD, Performed By: #### L 500.4050, L100.0100 ####[facility] [address] [place], [address] T BILI < 0.15 Normal 0.00-1.30 [facility] Comment on above: Order Comment: DR. Stephen SERRANO ORDERED BMP, CBCD, ALBUMINNP.T ALEKSANDER ORDERED CMP, CBCD, Performed By: #### L 500.4050, L100.0100 ####[facility] [address] [place], [address] T PROT 6.8 g/dL Normal 5.9-8.4 [facility] Comment on above: Order Comment: DR. Stephen SERRANO ORDERED BMP, CBCD, ALBUMINNP.T ALEKSANDER ORDERED CMP, CBCD, Performed By: #### L 500.4050, L100.0100 ####[facility] [address] [place], [address] Urea nitrogen [Mass/Vol] 18 mg/dL Normal 4-19 [facility] Comment on above: Order Comment: DR. Stephen SERRANO ORDERED BMP, CBCD, ALBUMINNELSON ARMIJO ORDERED CMP, CBCD, Performed By: #### L 500.4050, L100.0100 ####[facility] [address] [place], [address] Eosinophil percentageOrdered By: Genna Armijo on 08-12-2024 Eosinophils/100 WBC (Bld) 0.9 % 0-5 [facility] Erythrocyte distribution wid th ratioOrdered By: Genna Armijo on 08-12-2024 Erythrocyte distribution width (RBC) [Ratio] 13.6 % 11.6-14.6 [facility] Erythrocyte distribution wid th standard deviationOrdered By: Genna Armijo on 08-12-2024 Erythrocyte distribution width (RBC) [Entitic vol] 47.0 fL High 35.1-43.9 [facility] Estimation of creatinine suzanne aranceOrdered By: Genna Armijo on 08-12-2024 Estimated Creatinine Clearance Calc 112.35 ml/min 50-250 [facility] Extremity Lower without Cont raon 08-12-2024 Extremity Lower without Contra Normal [facility] GFR/1.73 sq M.predicted demetris g non-blacks MDRD (S/P/Bld) [Vol rate/Area]Ordered By: Genna Armijo on 08-12-2024 Estimated GFR (MDRD) Non-Af Amer 100 >60 [facility] Comment on above: mL/min/1.73m2 CKD-EP I Creatinine Equation (2020) Hematocrit Auto (Bld) [Volum e fraction]Ordered By: Genna Armijo on 08-12-2024 Hematocrit (Bld) [Volume fraction] 40.5 % 37-47 [facility] Hemoglobin measurementOrdere d By: Genna Armijo on 08-12-2024 Hemoglobin (Bld) [Mass/Vol] 13.4 g/dL 12.0-15.0 [facility] Immature granulocytes/100 WB C Auto (Bld)Ordered By: Genna Armijo on 08-12-2024 Immature granulocytes/100 WBC (Bld) 0.400 % 0.0-0.9 [facility] Comment on above: IG% - Immature Granu locytes (promyelocytes, myelocytes and metamyelocytes) > 1% indicates that a LEFT SHIFT is Present. Laboratory - Chemistry and C hemistry - challengeOrdered By: Genna Armijo on 08-12-2024 AST [Catalytic activity/Vol] 39 U/L High <32 [facility] Comment on above: Hemolysis present, R esults could be affected. Lymphocytes Auto (Unsp spec) [#/Vol]Ordered By: Genna Armijo on 08-12-2024 Lymphocytes (Bld) [#/Vol] 2.41 10*3/uL 0.83-4.51 [facility] Lymphocytes/100 WBC Auto (Un sp spec)Ordered By: Genna Armijo on 08-12-2024 Lymphocytes/100 WBC (Bld) 31.7 % 19-41 [facility] MCV (mean corpuscular volume ) determinationOrdered By: Genna Armijo on 08-12-2024 MCV (RBC) [Entitic vol] 94.0 fL 81-99 [facility] Mean corpuscular hemoglobin (MCH) determinationOrdered By: Genna Armijo on 08-12-2024 MCH (RBC) [Entitic mass] 31.1 pg 27.0-32.0 [facility] Mean corpuscular hemoglobin concentration (MCHC) determinationOrdered By: Genna Armijo on 08-12-2024 MCHC (RBC) [Mass/Vol] 33.1 g/dL 32-36 [facility] Mean platelet volume determi nationOrdered By: Genna Armijo on 08-12-2024 Platelet mean volume (Bld) [Entitic vol] 9.7 fL 6.2-12.0 [facility] Monocyte percentageOrdered B y: Genna Armijo on 08-12-2024 Monocytes/100 WBC (Bld) 7.8 % 0-10 [facility] Neutrophil percentageOrdered By: Genna Armijo on 08-12-2024 Neutrophils/100 WBC (Bld) 58.8 % 47-70 [facility] Nucleated red blood cell per centageOrdered By: Genna Armijo on 08-12-2024 Nucleated RBC/100 WBC (Bld) [Ratio] 0 % 0-5 [facility] Oncology Visit Reporton 03 Oncology Visit Report Normal [facility] Platelet countOrdered By: Erwin Armijo on 08-12-2024 Platelets (Bld) [#/Vol] 205 10*3/uL 150-450 [facility] Potassium (Unsp spec) [Mass/ Vol]Ordered By: Genna Armijo on 08-12-2024 Potassium [Moles/Vol] 4.2 mmol/L 3.3-5.1 [facility] Comment on above: Hemolysis present, R esults could be affected. RBC Auto (Bld) [#/Vol]Ordere d By: Genna Armijo on 08-12-2024 RBC (Bld) [#/Vol] 4.31 10*6/uL 4.2-5.4 [facility] Serum creatinine measurement (mass/volume)Ordered By: Genna Armijo on 08-12-2024 Creatinine [Mass/Vol] 0.72 mg/dL 0.70-1.20 [facility] Serum globulin measurementOr dered By: Genna Armijo on 08-12-2024 Globulin (S) [Mass/Vol] 2.5 g/dL 2.2-4.2 [facility] Serum glucose measurement (m ass/volume)Ordered By: Genna Armijo on 08-12-2024 Glucose [Mass/Vol] 103 mg/dL High 70-99 [facility] Serum or plasma alanine alonzo otransferase (ALT) measurementOrdered By: Genna Armijo on 08-12-2024 ALT [Catalytic activity/Vol] 37 U/L High <35 [facility] Serum or plasma albumin paul urement (mass/volume)Ordered By: Genna Armijo on 08-12-2024 Albumin [Mass/Vol] 4.3 g/dL 3.5-5.0 [facility] Serum or plasma albumin/glob ulin mass ratioOrdered By: Genna Armijo on 08-12-2024 Albumin/Globulin [Mass ratio] 1.7 {ratio} 0.9-2.4 [facility] Serum or plasma alkaline ubaldo sphatase measurementOrdered By: Genna Armijo on 08-12-2024 ALP [Catalytic activity/Vol] 62 U/L 35-104 [facility] Serum or plasma calcium paul urement (mass/volume)Ordered By: Genna Armijo on 08-12-2024 Calcium [Mass/Vol] 10.4 mg/dL 7.6-11.0 [facility] Serum or plasma urea nitroge n measurement (mass/volume)Ordered By: Genna Armijo on 08-12-2024 Urea nitrogen [Mass/Vol] 18 mg/dL 4-19 [facility] Sodium levelOrdered By: [facility] on 08-12-2024 Sodium [Moles/Vol] 140 mmol/L 133-145 [facility] Total proteinOrdered By: David Armijo on 08-12-2024 Protein [Mass/Vol] 6.8 g/dL 5.9-8.4 [facility] White blood cell (WBC) count Ordered By: Genna Armijo on 08-12-2024 WBC (Bld) [#/Vol] 7.6 10*3/uL 4.4-11.0 [facility] Breast Limited Unilateralon 07-22-2024 Breast Limited Unilateral Normal [facility] Oncology Visit Reporton 07-10 Oncology Visit Report Normal [facility] Breast Limited Unilateralon 07-05-2024 Breast Limited Unilateral Normal [facility] CA 15-3on 07-02-2024 CA 15-3 43.5 U/mL Abnormal 0.0-25.0 [facility] Comment on above: Result Comment: [employer] Electrochemiluminescence Immunoassay(ECLIA)Values obtained with different assay methods or kits cannotbe used interchangeably. Results cannot be interpreted asabsolute evidence of the presence or absence of malignantdisease.Performed at: [facility] [address] [id number] Director: Ervin Hitchcock PhD, Phone: [phone] Performed By: #### L 3100.2300, L500.4050, L504.2610, L100.0100, L3100.5040, L3100.5030 ####[facility] [address] [place], [place], [address] CA 27.29on 07-02-2024 CA 27.29 57.2 U/mL Abnormal 0.0-38.6 [facility] Comment on above: Result Comment: [employer] mo[employer] Immunochemiluminometric Methodology (ICMA)Values obtained with different assay methods or kits cannotbe used interchangeably. Results cannot be interpreted asabsolute evidence of the presence or absence of malignantdisease. Performed By: #### L 3100.2300, L500.4050, L504.2610, L100.0100, L3100.5040, L3100.5030 ####[facility] [address] [place], [place], [id number] Carcinoembryonic Antigenon 0 07-02-2024 CEA 1.1 ng/mL Normal 0.0-4.7 [facility] Comment on above: Result Comment: Nons mokers <3.9 Smokers <5.6[employer] Electrochemiluminescence Immunoassay(ECLIA)Values obtained with different assay methods or kitscannot be used interchangeably. Results cannot beinterpreted as absolute evidence of the presence orabsence of malignant disease. Performed By: #### L 3100.2300, L500.4050, L504.2610, L100.0100, L3100.5040, L3100.5030 ####[facility] [address] [place], [place], [id number] CA 15-3Ordered By: Cristóbal smart on 07-01-2024 CA 15-3 Antigen 43.5 U/mL High 0.0-25.0 [facility] Comment on above: [employer] El ectrochemiluminescence Immunoassay(ECLIA)Values obtained with different assay methods or kits cannotbe used interchangeably. Results cannot be interpreted asabsolute evidence of the presence or absence of malignantdisease.Performed at: [facility] [facility] [address] [id number] Director: Ervin Hitchcock PhD, Phone: [phone] CA 27.29Ordered By: Cristóbal bolivar on 07-01-2024 CA 27.29 57.2 U/mL High 0.0-38.6 [facility] Comment on above: [employer] Immu nochemiluminometric Methodology (ICMA)Values obtained with different assay methods or kits cannotbe used interchangeably. Results cannot be interpreted asabsolute evidence of the presence or absence of malignantdisease. CBC W/Diff, Automatedon 06-10 Absolute Lymph 2.67 X10 3/uL Normal 0.83-4.51 [facility] Comment on above: Performed By: #### L 3100.2300, L500.4050, L504.2610, L100.0100, L3100.5040, L3100.5030 ####[facility] [address] [place], [address] Absolute Neut 4.4 X10 3/uL Normal 2.0-7.7 [facility] Comment on above: Performed By: #### L 3100.2300, L500.4050, L504.2610, L100.0100, L3100.5040, L3100.5030 ####[facility] [address] [place], [address] Basophils/100 WBC (Bld) 0.4 % Normal 0-1 [facility] Comment on above: Performed By: #### L 3100.2300, L500.4050, L504.2610, L100.0100, L3100.5040, L3100.5030 ####[facility] [address] [place], [address] Eosinophils/100 WBC (Bld) 0.8 % Normal 0-5 [facility] Comment on above: Performed By: #### L 3100.2300, L500.4050, L504.2610, L100.0100, L3100.5040, L3100.5030 ####[facility] [address] [place], [address] Erythrocyte distribution width (RBC) [Ratio] 13.8 % Normal 11.6-14.6 [facility] Comment on above: Performed By: #### L 3100.2300, L500.4050, L504.2610, L100.0100, L3100.5040, L3100.5030 ####[facility] [address] [place], [address] Hematocrit (Bld) [Volume fraction] 39.4 % Normal 37-47 [facility] Comment on above: Performed By: #### L 3100.2300, L500.4050, L504.2610, L100.0100, L3100.5040, L3100.5030 ####[facility] [address] [place], [address] Hemoglobin (Bld) [Mass/Vol] 12.8 g/dL Normal 12.0-15.0 [facility] Comment on above: Performed By: #### L 3100.2300, L500.4050, L504.2610, L100.0100, L3100.5040, L3100.5030 ####[facility] [address] [place], [address] IG% 0.300 Normal 0.0-0.9 [facility] Comment on above: Result Comment: IG% - Immature Granulocytes (promyelocytes, myelocytes andmetamyelocytes) > 1% indicates that a LEFT SHIFT is Present. Performed By: #### L 3100.2300, L500.4050, L504.2610, L100.0100, L3100.5040, L3100.5030 ####[facility] [address] [place], [address] Lymphocytes/100 WBC (Bld) 34.6 % Normal 19-41 [facility] Comment on above: Performed By: #### L 3100.2300, L500.4050, L504.2610, L100.0100, L3100.5040, L3100.5030 ####[facility] [address] [place], [address] MCH (RBC) [Entitic mass] 30.2 pg Normal 27.0-32.0 [facility] Comment on above: Performed By: #### L 3100.2300, L500.4050, L504.2610, L100.0100, L3100.5040, L3100.5030 ####[facility] [address] [place], [address] MCHC (RBC) [Mass/Vol] 32.5 g/dL Normal 32-36 [facility] Comment on above: Performed By: #### L 3100.2300, L500.4050, L504.2610, L100.0100, L3100.5040, L3100.5030 ####[facility] [address] [place], [address] MCV (RBC) [Entitic vol] 92.9 fL Normal 81-99 [facility] Comment on above: Performed By: #### L 3100.2300, L500.4050, L504.2610, L100.0100, L3100.5040, L3100.5030 ####[facility] [address] [place], [address] Monocytes/100 WBC (Bld) 6.4 % Normal 0-10 [facility] Comment on above: Performed By: #### L 3100.2300, L500.4050, L504.2610, L100.0100, L3100.5040, L3100.5030 ####[facility] [address] [place], [address] Neutrophils/100 WBC (Bld) 57.5 % Normal 47-70 [facility] Comment on above: Performed By: #### L 3100.2300, L500.4050, L504.2610, L100.0100, L3100.5040, L3100.5030 ####[facility] [address] [place], [address] Nucleated RBC (Bld) [#/Vol] 0 10*3/uL Normal 0-5 [facility] Comment on above: Performed By: #### L 3100.2300, L500.4050, L504.2610, L100.0100, L3100.5040, L3100.5030 ####[facility] [address] [place], [address] Platelet mean volume (Bld) [Entitic vol] 9.0 fL Normal 6.2-12.0 [facility] Comment on above: Performed By: #### L 3100.2300, L500.4050, L504.2610, L100.0100, L3100.5040, L3100.5030 ####[facility] [facility] [address] [place], [address] Platelets (Bld) [#/Vol] 224 10*3/uL Normal 150-450 [facility] Comment on above: Performed By: #### L 3100.2300, L500.4050, L504.2610, L100.0100, L3100.5040, L3100.5030 ####[facility] [address] [place], [address] RBC (Bld) [#/Vol] 4.24 10*6/uL Normal 4.2-5.4 [facility] Comment on above: Performed By: #### L 3100.2300, L500.4050, L504.2610, L100.0100, L3100.5040, L3100.5030 ####[facility] [address] [place], [address] RDW SD 46.6 fl High 35.1-43.9 [facility] Comment on above: Performed By: #### L 3100.2300, L500.4050, L504.2610, L100.0100, L3100.5040, L3100.5030 ####[facility] [address] [place], [address] WBC (Bld) [#/Vol] 7.7 10*3/uL Normal 4.4-11.0 [facility] Comment on above: Performed By: #### L 3100.2300, L500.4050, L504.2610, L100.0100, L3100.5040, L3100.5030 ####[facility] [address] [place], [address] Comprehensive Metabolic Prof ilon 07-01-2024 Albumin [Mass/Vol] 3.5 g/dL Normal 3.2-5.0 [facility] Comment on above: Order Comment: 1 Performed By: #### L 3100.2300, L500.4050, L504.2610, L100.0100, L3100.5040, L3100.5030 ####[facility] [address] [place], [address] Albumin/Globulin [Mass ratio] 1.1 {ratio} Normal 0.9-2.4 [facility] Comment on above: Order Comment: 1 Performed By: #### L 3100.2300, L500.4050, L504.2610, L100.0100, L3100.5040, L3100.5030 ####[facility] [address] [place], [address] ALK P 56 U/L Normal 45-117 [facility] Comment on above: Order Comment: 1 Performed By: #### L 3100.2300, L500.4050, L504.2610, L100.0100, L3100.5040, L3100.5030 ####[facility] [address] [place], [address] ALT [Catalytic activity/Vol] 42 U/L Normal 13-56 [facility] Comment on above: Order Comment: 1 Performed By: #### L 3100.2300, L500.4050, L504.2610, L100.0100, L3100.5040, L3100.5030 ####[facility] [address] [place], [address] AST [Catalytic activity/Vol] 33 U/L Normal 15-37 [facility] Comment on above: Order Comment: 1 Performed By: #### L 3100.2300, L500.4050, L504.2610, L100.0100, L3100.5040, L3100.5030 ####[facility] [address] [place], [address] Bilirubin [Mass/Vol] 0.30 mg/dL Normal 0.20-1.00 [facility] Comment on above: Order Comment: 1 Result Comment: For patients on eltrombopag therapy, use of Dimension [place] TBIL is not recommended. Performed By: #### L 3100.2300, L500.4050, L504.2610, L100.0100, L3100.5040, L3100.5030 ####[facility] [address] [place], [address] BUN/CRE 25.7 RATIO High 10-20 [facility] Comment on above: Order Comment: 1 Performed By: #### L 3100.2300, L500.4050, L504.2610, L100.0100, L3100.5040, L3100.5030 ####[facility] [address] [place], [address] CA,Total 10.2 mg/dL High 8.5-10.1 [facility] Comment on above: Order Comment: 1 Performed By: #### L 3100.2300, L500.4050, L504.2610, L100.0100, L3100.5040, L3100.5030 ####[facility] [address] [place], [address] Chloride [Moles/Vol] 108 mmol/L High 98-107 [facility] Comment on above: Order Comment: 1 Performed By: #### L 3100.2300, L500.4050, L504.2610, L100.0100, L3100.5040, L3100.5030 ####[facility] [address] [place], [address] CO2 [Moles/Vol] 28.0 mmol/L Normal 21.0-32.0 [facility] Comment on above: Order Comment: 1 Performed By: #### L 3100.2300, L500.4050, L504.2610, L100.0100, L3100.5040, L3100.5030 ####[facility] [address] [place], [address] Creatinine [Mass/Vol] 0.74 mg/dL Normal 0.55-1.02 [facility] Comment on above: Order Comment: 1 Result Comment: The validity of the calculated GFR GFRAA in patients over70 years has not been determined. Clinical correlation isessential. Performed By: #### L 3100.2300, L500.4050, L504.2610, L100.0100, L3100.5040, L3100.5030 ####[facility] [address] [place], [address] ECRCL 109.35 ml/min Normal [facility] Comment on above: Order Comment: 1 Performed By: #### L 3100.2300, L500.4050, L504.2610, L100.0100, L3100.5040, L3100.5030 ####[facility] [address] [place], [address] EST GFR - AA 105 mL/min Normal >60 [facility] Comment on above: Order Comment: 1 Result Comment: Afri can Greek GFR Calc Performed By: #### L 3100.2300, L500.4050, L504.2610, L100.0100, L3100.5040, L3100.5030 ####[facility] [address] [place], [address] GAP 5 Normal 5-15 [facility] Comment on above: Order Comment: 1 Performed By: #### L 3100.2300, L500.4050, L504.2610, L100.0100, L3100.5040, L3100.5030 ####[facility] [address] [place], [address] GFR/1.73 sq M.predicted among non-blacks MDRD (S/P/Bld) [Vol rate/Area] 87 mL/min/{1.73_m2} Normal >60 [facility] Comment on above: Order Comment: 1 Result Comment: Non- GFR Calc Performed By: #### L 3100.2300, L500.4050, L504.2610, L100.0100, L3100.5040, L3100.5030 ####[facility] [address] [place], [address] Globulin (S) [Mass/Vol] 3.3 g/dL Normal 2.2-4.2 [facility] Comment on above: Order Comment: 1 Performed By: #### L 3100.2300, L500.4050, L504.2610, L100.0100, L3100.5040, L3100.5030 ####[facility] [address] [place], [address] Glucose [Mass/Vol] 102 mg/dL Normal 74-106 [facility] Comment on above: Order Comment: 1 Result Comment: Fast ing Glucose result from 100 to 125 mg/dLsuggests IMPAIRED HOMEOSTASIS per A.D.A. criteria. Performed By: #### L 3100.2300, L500.4050, L504.2610, L100.0100, L3100.5040, L3100.5030 ####[facility] [address] [place], [address] Potassium [Moles/Vol] 4.1 mmol/L Normal 3.5-5.1 [facility] Comment on above: Order Comment: 1 Performed By: #### L 3100.2300, L500.4050, L504.2610, L100.0100, L3100.5040, L3100.5030 ####[facility] [address] [place], [address] Sodium [Moles/Vol] 141 mmol/L Normal 136-145 [facility] Comment on above: Order Comment: 1 Performed By: #### L 3100.2300, L500.4050, L504.2610, L100.0100, L3100.5040, L3100.5030 ####[facility] [address] [place], [address] T PROT 6.8 g/dL Normal 6.4-8.2 [facility] Comment on above: Order Comment: 1 Performed By: #### L 3100.2300, L500.4050, L504.2610, L100.0100, L3100.5040, L3100.5030 ####[facility] [address] [place], [address] Urea nitrogen [Mass/Vol] 19 mg/dL High 7-18 [facility] Comment on above: Order Comment: 1 Performed By: #### L 3100.2300, L500.4050, L504.2610, L100.0100, L3100.5040, L3100.5030 ####[facility] [address] [place], [address] Estimated glomerular filtrat ion rate (GFR) AmericanOrdered By: Cristóbal Ford on 07-01-2024 Estimated GFR (MDRD) Amer 105 mL/min >60 [facility] Comment on above: GFR Calc LDHon 07-01-2024 LDH 163 U/L Normal 84-246 [facility] Comment on above: Order Comment: 1 Performed By: #### L 3100.2300, L500.4050, L504.2610, L100.0100, L3100.5040, L3100.5030 ####[facility] [address] [place], [address] Lactate dehydrogenase (LDH) measurementOrdered By: Cristóbal Ford on 07-01-2024 LDH [Catalytic activity/Vol] 163 U/L 84-246 [facility] Miscellaneous procedureOrder ed By: Cristóbal Ford on 07-01-2024 Miscellaneous Test Comment SEE SCANNED REPORT [facility] NATERAon 07-01-2024 NATURA SEE SCANNED REPORT Normal [facility] Comment on above: Performed By: #### L 900.0098 ####[facility] [address] [place], [place], [address] Oncology Visit Reporton 06-10 Oncology Visit Report Normal [facility] E-CAD (initial)on 06-16-2024 E-CAD (initial) Normal [facility] Comment on above: Performed By: #### P ECAD ####[facility] [address] [place], [place], [address] Special Stain Group Ion Special Stain Group I Normal [facility] Comment on above: Performed By: #### P SSI ####[facility] [address] [place], [address] Surgery Visit Reporton 06-16 Surgery Visit Report Normal [facility] Oncology Visit Reporton Oncology Visit Report Normal [facility] PET/CT Tumor Base -Thigh Sub son 06-15-2024 PET/CT Tumor Base -Thigh Subs Normal [facility] Oncology Visit Reporton Oncology Visit Report Normal [facility] CBC W/Diff, Automatedon 12-1 Absolute Lymph 2.19 X10 3/uL Normal 0.83-4.51 [facility] Comment on above: Performed By: #### L 504.2610, L100.0100, L500.4050 ####[facility] [address] [place], [address] Absolute Neut 4.9 X10 3/uL Normal 2.0-7.7 [facility] Comment on above: Performed By: #### L 504.2610, L100.0100, L500.4050 ####[facility] [address] [place], [address] Basophils/100 WBC (Bld) 0.4 % Normal 0-1 [facility] Comment on above: Performed By: #### L 504.2610, L100.0100, L500.4050 ####[facility] [address] [place], [address] Eosinophils/100 WBC (Bld) 0.9 % Normal 0-5 [facility] Comment on above: Performed By: #### L 504.2610, L100.0100, L500.4050 ####[facility] [address] [place], [address] Erythrocyte distribution width (RBC) [Ratio] 13.6 % Normal 11.6-14.6 [facility] Comment on above: Performed By: #### L 504.2610, L100.0100, L500.4050 ####[facility] [address] [place], [address] Hematocrit (Bld) [Volume fraction] 40.1 % Normal 37-47 [facility] Comment on above: Performed By: #### L 504.2610, L100.0100, L500.4050 ####[facility] [address] [place], [address] Hemoglobin (Bld) [Mass/Vol] 13.0 g/dL Normal 12.0-15.0 [facility] Comment on above: Performed By: #### L 504.2610, L100.0100, L500.4050 ####[facility] [address] [place], [address] IG% 0.500 Normal 0.0-0.9 [facility] Comment on above: Result Comment: IG% - Immature Granulocytes (promyelocytes, myelocytes andmetamyelocytes) > 1% indicates that a LEFT SHIFT is Present. Performed By: #### L 504.2610, L100.0100, L500.4050 ####[facility] [address] [place], [address] Lymphocytes/100 WBC (Bld) 28.8 % Normal 19-41 [facility] Comment on above: Performed By: #### L 504.2610, L100.0100, L500.4050 ####[facility] [address] [place], [address] MCH (RBC) [Entitic mass] 30.6 pg Normal 27.0-32.0 [facility] Comment on above: Performed By: #### L 504.2610, L100.0100, L500.4050 ####[facility] [address] [place], [address] MCHC (RBC) [Mass/Vol] 32.4 g/dL Normal 32-36 [facility] Comment on above: Performed By: #### L 504.2610, L100.0100, L500.4050 ####[facility] [address] [place], [address] MCV (RBC) [Entitic vol] 94.4 fL Normal 81-99 [facility] Comment on above: Performed By: #### L 504.2610, L100.0100, L500.4050 ####[facility] [address] [place], [address] Monocytes/100 WBC (Bld) 5.1 % Normal 0-10 [facility] Comment on above: Performed By: #### L 504.2610, L100.0100, L500.4050 ####[facility] [address] [place], [address] Neutrophils/100 WBC (Bld) 64.3 % Normal 47-70 [facility] Comment on above: Performed By: #### L 504.2610, L100.0100, L500.4050 ####[facility] [address] [place], [address] Nucleated RBC (Bld) [#/Vol] 0 10*3/uL Normal 0-5 [facility] Comment on above: Performed By: #### L 504.2610, L100.0100, L500.4050 ####[facility] [address] [place], [address] Platelet mean volume (Bld) [Entitic vol] 9.2 fL Normal 6.2-12.0 [facility] Comment on above: Performed By: #### L 504.2610, L100.0100, L500.4050 ####[facility] [address] [place], [address] Platelets (Bld) [#/Vol] 205 10*3/uL Normal 150-450 [facility] Comment on above: Performed By: #### L 504.2610, L100.0100, L500.4050 ####[facility] [address] [place], [address] RBC (Bld) [#/Vol] 4.25 10*6/uL Normal 4.2-5.4 [facility] Comment on above: Performed By: #### L 504.2610, L100.0100, L500.4050 ####[facility] [address] [place], [address] RDW SD 47.2 fl High 35.1-43.9 [facility] Comment on above: Performed By: #### L 504.2610, L100.0100, L500.4050 ####[facility] [address] [place], [address] WBC (Bld) [#/Vol] 7.6 10*3/uL Normal 4.4-11.0 [facility] Comment on above: Performed By: #### L 504.2610, L100.0100, L500.4050 ####[facility] [address] [place], [address] Comprehensive Metabolic Prof akon 05-20-2024 Albumin [Mass/Vol] 3.6 g/dL Normal 3.2-5.0 [facility] Comment on above: Order Comment: 1 Performed By: #### L 504.2610, L100.0100, L500.4050 ####[facility] [address] [place], [address] Albumin/Globulin [Mass ratio] 1.2 {ratio} Normal 0.9-2.4 [facility] Comment on above: Order Comment: 1 Performed By: #### L 504.2610, L100.0100, L500.4050 ####[facility] [address] [place], [address] ALK P 64 U/L Normal 45-117 [facility] Comment on above: Order Comment: 1 Performed By: #### L 504.2610, L100.0100, L500.4050 ####[facility] [address] [place], [address] ALT [Catalytic activity/Vol] 37 U/L Normal 13-56 [facility] Comment on above: Order Comment: 1 Performed By: #### L 504.2610, L100.0100, L500.4050 ####[facility] [address] [place], [address] AST [Catalytic activity/Vol] 29 U/L Normal 15-37 [facility] Comment on above: Order Comment: 1 Performed By: #### L 504.2610, L100.0100, L500.4050 ####[facility] [address] [place], [address] Bilirubin [Mass/Vol] 0.30 mg/dL Normal 0.20-1.00 [facility] Comment on above: Order Comment: 1 Result Comment: For patients on eltrombopag therapy, use of Dimension [place] TBIL is not recommended. Performed By: #### L 504.2610, L100.0100, L500.4050 ####[facility] [address] [place], [address] BUN/CRE 27.1 RATIO High 10-20 [facility] Comment on above: Order Comment: 1 Performed By: #### L 504.2610, L100.0100, L500.4050 ####[facility] [address], [address] CA,Total 10.2 mg/dL High 8.5-10.1 [facility] Comment on above: Order Comment: 1 Performed By: #### L 504.2610, L100.0100, L500.4050 ####[facility] [address] [place], [address] Chloride [Moles/Vol] 109 mmol/L High 98-107 [facility] Comment on above: Order Comment: 1 Performed By: #### L 504.2610, L100.0100, L500.4050 ####[facility] [address] [place], [address] CO2 [Moles/Vol] 30.0 mmol/L Normal 21.0-32.0 [facility] Comment on above: Order Comment: 1 Performed By: #### L 504.2610, L100.0100, L500.4050 ####[facility] [address] [place], [address] Creatinine [Mass/Vol] 0.85 mg/dL Normal 0.55-1.02 [facility] Comment on above: Order Comment: 1 Result Comment: The validity of the calculated GFR GFRAA in patients over70 years has not been determined. Clinical correlation isessential. Performed By: #### L 504.2610, L100.0100, L500.4050 ####[facility] [address] [place], [address] ECRCL 94.53 ml/min Normal [facility] Comment on above: Order Comment: 1 Performed By: #### L 504.2610, L100.0100, L500.4050 ####[facility] [address] [place], [address] EST GFR - AA 89 mL/min Normal >60 [facility] Comment on above: Order Comment: 1 Result Comment: Afri can Greek GFR Calc Performed By: #### L 504.2610, L100.0100, L500.4050 ####[facility] [address] [place], [address] GAP 2 Low 5-15 [facility] Comment on above: Order Comment: 1 Performed By: #### L 504.2610, L100.0100, L500.4050 ####[facility] [address] [place], [address] GFR/1.73 sq M.predicted among non-blacks MDRD (S/P/Bld) [Vol rate/Area] 74 mL/min/{1.73_m2} Normal >60 [facility] Comment on above: Order Comment: 1 Result Comment: Non- GFR Calc Performed By: #### L 504.2610, L100.0100, L500.4050 ####[facility] [address] [place], [address] Globulin (S) [Mass/Vol] 3.0 g/dL Normal 2.2-4.2 [facility] Comment on above: Order Comment: 1 Performed By: #### L 504.2610, L100.0100, L500.4050 ####[facility] [address] [place], [address] Glucose [Mass/Vol] 135 mg/dL High 74-106 [facility] Comment on above: Order Comment: 1 Result Comment: Fast ing Glucose result greater than or equal to 126 mg/dLsuggests DIABETES MELLITUS per A.D.A. criteria. Performed By: #### L 504.2610, L100.0100, L500.4050 ####[facility] [address] [place], [address] Potassium [Moles/Vol] 3.7 mmol/L Normal 3.5-5.1 [facility] Comment on above: Order Comment: 1 Performed By: #### L 504.2610, L100.0100, L500.4050 ####[facility] [address] [place], [address] Sodium [Moles/Vol] 141 mmol/L Normal 136-145 [facility] Comment on above: Order Comment: 1 Performed By: #### L 504.2610, L100.0100, L500.4050 ####[facility] [address] [place], [address] T PROT 6.6 g/dL Normal 6.4-8.2 [facility] Comment on above: Order Comment: 1 Performed By: #### L 504.2610, L100.0100, L500.4050 ####[facility] [address] [place], [address] Urea nitrogen [Mass/Vol] 23 mg/dL High 7-18 [facility] Comment on above: Order Comment: 1 Performed By: #### L 504.2610, L100.0100, L500.4050 ####[facility] [address] [place], [address] LDHon 05-20-2024 LDH 187 U/L Normal 84-246 [facility] Comment on above: Order Comment: 1 Performed By: #### L 504.2610, L100.0100, L500.4050 ####[facility] [address] [place], [address] Oncology Visit Reporton 05-09 Oncology Visit Report Normal [facility] ONC Echo Completeon 05-19-20 ONC Echo Complete Normal [facility] CA 15-3on 04-30-2024 CA 15-3 45.2 U/mL Abnormal 0.0-25.0 [facility] Comment on above: Result Comment: [employer] Electrochemiluminescence Immunoassay(ECLIA)Values obtained with different assay methods or kits cannotbe used interchangeably. Results cannot be interpreted asabsolute evidence of the presence or absence of malignantdisease.Performed at: [facility] [id number] Director: Ervin Hitchcock PhD, Phone: [phone] Performed By: #### L 500.4050, L3100.5030, L3100.5040, L100.0100, L3100.2300 ####[facility] [address] [place], [address] CA 27.29on 04-30-2024 CA 27.29 61.3 U/mL Abnormal 0.0-38.6 [facility] Comment on above: Result Comment: [employer] Immunochemiluminometric Methodology (ICMA)Values obtained with different assay methods or kits cannotbe used interchangeably. Results cannot be interpreted asabsolute evidence of the presence or absence of malignantdisease. Performed By: #### L 500.4050, L3100.5030, L3100.5040, L100.0100, L3100.2300 ####[facility] [address] [place], [address] Carcinoembryonic Antigenon 1 06-30-2023 CEA 1.2 ng/mL Normal 0.0-4.7 [facility] Comment on above: Result Comment: Nons mokers <3.9 Smokers <5.6[employer] Electrochemiluminescence Immunoassay(ECLIA)Values obtained with different assay methods or kitscannot be used interchangeably. Results cannot beinterpreted as absolute evidence of the presence orabsence of malignant disease. Performed By: #### L 500.4050, L3100.5030, L3100.5040, L100.0100, L3100.2300 ####[facility] [address] [place], [address] CBC W/Diff, Automatedon 11-2 Absolute Lymph 2.47 X10 3/uL Normal 0.83-4.51 [facility] Comment on above: Performed By: #### L 500.4050, L3100.5030, L3100.5040, L100.0100, L3100.2300 ####[facility] [address] [place], [address] Absolute Neut 4.7 X10 3/uL Normal 2.0-7.7 [facility] Comment on above: Performed By: #### L 500.4050, L3100.5030, L3100.5040, L100.0100, L3100.2300 ####[facility] [address] [place], [address] Basophils/100 WBC (Bld) 0.3 % Normal 0-1 [facility] Comment on above: Performed By: #### L 500.4050, L3100.5030, L3100.5040, L100.0100, L3100.2300 ####[facility] [address] [place], [address] Eosinophils/100 WBC (Bld) 1.2 % Normal 0-5 [facility] Comment on above: Performed By: #### L 500.4050, L3100.5030, L3100.5040, L100.0100, L3100.2300 ####[facility] [address] [place], [address] Erythrocyte distribution width (RBC) [Ratio] 13.7 % Normal 11.6-14.6 [facility] Comment on above: Performed By: #### L 500.4050, L3100.5030, L3100.5040, L100.0100, L3100.2300 ####[facility] [address] [place], [address] Hematocrit (Bld) [Volume fraction] 38.5 % Normal 37-47 [facility] Comment on above: Performed By: #### L 500.4050, L3100.5030, L3100.5040, L100.0100, L3100.2300 ####[facility] [address] [place], [address] Hemoglobin (Bld) [Mass/Vol] 12.5 g/dL Normal 12.0-15.0 [facility] Comment on above: Performed By: #### L 500.4050, L3100.5030, L3100.5040, L100.0100, L3100.2300 ####[facility] [address] [place], [address] IG% 0.300 Normal 0.0-0.9 [facility] Comment on above: Result Comment: IG% - Immature Granulocytes (promyelocytes, myelocytes andmetamyelocytes) > 1% indicates that a LEFT SHIFT is Present. Performed By: #### L 500.4050, L3100.5030, L3100.5040, L100.0100, L3100.2300 ####[facility] [id number] [place], [address] Lymphocytes/100 WBC (Bld) 31.9 % Normal 19-41 [facility] Comment on above: Performed By: #### L 500.4050, L3100.5030, L3100.5040, L100.0100, L3100.2300 ####[facility] [address] [place], [address] MCH (RBC) [Entitic mass] 31.0 pg Normal 27.0-32.0 [facility] Comment on above: Performed By: #### L 500.4050, L3100.5030, L3100.5040, L100.0100, L3100.2300 ####[facility] [address] [place], [address] MCHC (RBC) [Mass/Vol] 32.5 g/dL Normal 32-36 [facility] Comment on above: Performed By: #### L 500.4050, L3100.5030, L3100.5040, L100.0100, L3100.2300 ####[facility] [address] [place], [address] MCV (RBC) [Entitic vol] 95.5 fL Normal 81-99 [facility] Comment on above: Performed By: #### L 500.4050, L3100.5030, L3100.5040, L100.0100, L3100.2300 ####[facility] [address] [place], [address] Monocytes/100 WBC (Bld) 6.5 % Normal 0-10 [facility] Comment on above: Performed By: #### L 500.4050, L3100.5030, L3100.5040, L100.0100, L3100.2300 ####[facility] [address] [place], [address] Neutrophils/100 WBC (Bld) 59.8 % Normal 47-70 [facility] Comment on above: Performed By: #### L 500.4050, L3100.5030, L3100.5040, L100.0100, L3100.2300 ####[facility] [address] [place], [address] Nucleated RBC (Bld) [#/Vol] 0 10*3/uL Normal 0-5 [facility] Comment on above: Performed By: #### L 500.4050, L3100.5030, L3100.5040, L100.0100, L3100.2300 ####[facility] [address] [place], [address] Platelet mean volume (Bld) [Entitic vol] 9.1 fL Normal 6.2-12.0 [facility] Comment on above: Performed By: #### L 500.4050, L3100.5030, L3100.5040, L100.0100, L3100.2300 ####[facility] [address] [place], [address] Platelets (Bld) [#/Vol] 208 10*3/uL Normal 150-450 [facility] Comment on above: Performed By: #### L 500.4050, L3100.5030, L3100.5040, L100.0100, L3100.2300 ####[facility] [address] [place], [address] RBC (Bld) [#/Vol] 4.03 10*6/uL Low 4.2-5.4 [facility] Comment on above: Performed By: #### L 500.4050, L3100.5030, L3100.5040, L100.0100, L3100.2300 ####[facility] [address] [place], [address] RDW SD 48.3 fl High 35.1-43.9 [facility] Comment on above: Performed By: #### L 500.4050, L3100.5030, L3100.5040, L100.0100, L3100.2300 ####[facility] [address] [place], [address] WBC (Bld) [#/Vol] 7.8 10*3/uL Normal 4.4-11.0 [facility] Comment on above: Performed By: #### L 500.4050, L3100.5030, L3100.5040, L100.0100, L3100.2300 ####[facility] [address] [place], [address] Comprehensive Metabolic Prof ilon 04-29-2024 Albumin [Mass/Vol] 3.9 g/dL Normal 3.2-5.0 [facility] Comment on above: Performed By: #### L 500.4050, L3100.5030, L3100.5040, L100.0100, L3100.2300 ####[facility] [address] [place], [address] Albumin/Globulin [Mass ratio] 1.3 {ratio} Normal 0.9-2.4 [facility] Comment on above: Performed By: #### L 500.4050, L3100.5030, L3100.5040, L100.0100, L3100.2300 ####[facility] [address] [place], [address] ALK P 68 U/L Normal 45-117 [facility] Comment on above: Performed By: #### L 500.4050, L3100.5030, L3100.5040, L100.0100, L3100.2300 ####[facility] [address] [place], [address] ALT [Catalytic activity/Vol] 31 U/L Normal 13-56 [facility] Comment on above: Performed By: #### L 500.4050, L3100.5030, L3100.5040, L100.0100, L3100.2300 ####[facility] [address] [place], [address] AST [Catalytic activity/Vol] 27 U/L Normal 15-37 [facility] Comment on above: Performed By: #### L 500.4050, L3100.5030, L3100.5040, L100.0100, L3100.2300 ####[facility] [address] [place], [address] Bilirubin [Mass/Vol] 0.30 mg/dL Normal 0.20-1.00 [facility] Comment on above: Result Comment: For patients on eltrombopag therapy, use of Dimension [place] TBIL is not recommended. Performed By: #### L 500.4050, L3100.5030, L3100.5040, L100.0100, L3100.2300 ####[facility] [address] [place], [address] BUN/CRE 29.3 RATIO High 10-20 [facility] Comment on above: Performed By: #### L 500.4050, L3100.5030, L3100.5040, L100.0100, L3100.2300 ####[facility] [address] [place], [address] CA,Total 9.6 mg/dL Normal 8.5-10.1 [facility] Comment on above: Performed By: #### L 500.4050, L3100.5030, L3100.5040, L100.0100, L3100.2300 ####[facility] [address] [place], [address] Chloride [Moles/Vol] 109 mmol/L High 98-107 [facility] Comment on above: Performed By: #### L 500.4050, L3100.5030, L3100.5040, L100.0100, L3100.2300 ####[facility] [address] [place], [address] CO2 [Moles/Vol] 26.0 mmol/L Normal 21.0-32.0 [facility] Comment on above: Performed By: #### L 500.4050, L3100.5030, L3100.5040, L100.0100, L3100.2300 ####[facility] [address] [place], [address] Creatinine [Mass/Vol] 0.78 mg/dL Normal 0.55-1.02 [facility] Comment on above: Result Comment: The validity of the calculated GFR GFRAA in patients over70 years has not been determined. Clinical correlation isessential. Performed By: #### L 500.4050, L3100.5030, L3100.5040, L100.0100, L3100.2300 ####[facility] [address] [place], [place], [phone] ECRCL 102.63 ml/min Normal [facility] Comment on above: Performed By: #### L 500.4050, L3100.5030, L3100.5040, L100.0100, L3100.2300 ####[facility] [address] [place], [place], [phone] EST GFR - AA 98 mL/min Normal >60 [facility] Comment on above: Result Comment: Afri can Greek GFR Calc Performed By: #### L 500.4050, L3100.5030, L3100.5040, L100.0100, L3100.2300 ####[facility] [address] [place], [place], [phone] GAP 5 Normal 5-15 [facility] Comment on above: Performed By: #### L 500.4050, L3100.5030, L3100.5040, L100.0100, L3100.2300 ####[facility] [address] [place], [address] GFR/1.73 sq M.predicted among non-blacks MDRD (S/P/Bld) [Vol rate/Area] 81 mL/min/{1.73_m2} Normal >60 [facility] Comment on above: Result Comment: Non- GFR Calc Performed By: #### L 500.4050, L3100.5030, L3100.5040, L100.0100, L3100.2300 ####[facility] [address] [place], [address] Globulin (S) [Mass/Vol] 3.0 g/dL Normal 2.2-4.2 [facility] Comment on above: Performed By: #### L 500.4050, L3100.5030, L3100.5040, L100.0100, L3100.2300 ####[facility] [address] [place], [address] Glucose [Mass/Vol] 98 mg/dL Normal 74-106 [facility] Comment on above: Performed By: #### L 500.4050, L3100.5030, L3100.5040, L100.0100, L3100.2300 ####[facility] [address] [place], [address] Potassium [Moles/Vol] 3.9 mmol/L Normal 3.5-5.1 [facility] Comment on above: Performed By: #### L 500.4050, L3100.5030, L3100.5040, L100.0100, L3100.2300 ####[facility] [address] [place], [address] Sodium [Moles/Vol] 140 mmol/L Normal 136-145 [facility] Comment on above: Performed By: #### L 500.4050, L3100.5030, L3100.5040, L100.0100, L3100.2300 ####[facility] [address] [place], [address] T PROT 6.9 g/dL Normal 6.4-8.2 [facility] Comment on above: Performed By: #### L 500.4050, L3100.5030, L3100.5040, L100.0100, L3100.2300 ####[facility] [address] [place], [address] Urea nitrogen [Mass/Vol] 23 mg/dL High 7-18 [facility] Comment on above: Performed By: #### L 500.4050, L3100.5030, L3100.5040, L100.0100, L3100.2300 ####[facility] [address] [place], [address] Oncology Visit Reporton 04-10 Oncology Visit Report Normal [facility] CBC W/Diff, Automatedon 03-11 Absolute Lymph 2.83 X10 3/uL Normal 0.83-4.51 [facility] Comment on above: Performed By: #### L 500.4050, L100.0100 ####[facility] [address] [place], [address] Absolute Neut 4.4 X10 3/uL Normal 2.0-7.7 [facility] Comment on above: Performed By: #### L 500.4050, L100.0100 ####[facility] [address] [place], [address] Basophils/100 WBC (Bld) 0.3 % Normal 0-1 [facility] Comment on above: Performed By: #### L 500.4050, L100.0100 ####[facility] [address] [place], [address] Eosinophils/100 WBC (Bld) 0.8 % Normal 0-5 [facility] Comment on above: Performed By: #### L 500.4050, L100.0100 ####[facility] [address] [place], [address] Erythrocyte distribution width (RBC) [Ratio] 13.4 % Normal 11.6-14.6 [facility] Comment on above: Performed By: #### L 500.4050, L100.0100 ####[facility] [address] [place], [address] Hematocrit (Bld) [Volume fraction] 38.3 % Normal 37-47 [facility] Comment on above: Performed By: #### L 500.4050, L100.0100 ####[facility] [address] [place], [address] Hemoglobin (Bld) [Mass/Vol] 12.5 g/dL Normal 12.0-15.0 [facility] Comment on above: Performed By: #### L 500.4050, L100.0100 ####[facility] [address] [place], [address] IG% 0.400 Normal 0.0-0.9 [facility] Comment on above: Result Comment: IG% - Immature Granulocytes (promyelocytes, myelocytes andmetamyelocytes) > 1% indicates that a LEFT SHIFT is Present. Performed By: #### L 500.4050, L100.0100 ####[facility] [address] [place], [address] Lymphocytes/100 WBC (Bld) 35.6 % Normal 19-41 [facility] Comment on above: Performed By: #### L 500.4050, L100.0100 ####[facility] [address] [place], [address] MCH (RBC) [Entitic mass] 31.5 pg Normal 27.0-32.0 [facility] Comment on above: Performed By: #### L 500.4050, L100.0100 ####[facility] [address] [place], [address] MCHC (RBC) [Mass/Vol] 32.6 g/dL Normal 32-36 [facility] Comment on above: Performed By: #### L 500.4050, L100.0100 ####[facility] [address] [place], [address] MCV (RBC) [Entitic vol] 96.5 fL Normal 81-99 [facility] Comment on above: Performed By: #### L 500.4050, L100.0100 ####[facility] [address] [place], [address] Monocytes/100 WBC (Bld) 7.3 % Normal 0-10 [facility] Comment on above: Performed By: #### L 500.4050, L100.0100 ####[facility] [address] [place], [address] Neutrophils/100 WBC (Bld) 55.6 % Normal 47-70 [facility] Comment on above: Performed By: #### L 500.4050, L100.0100 ####[facility] [address] [place], [address] Nucleated RBC (Bld) [#/Vol] 0 10*3/uL Normal 0-5 [facility] Comment on above: Performed By: #### L 500.4050, L100.0100 ####[facility] [address] [place], [address] Platelet mean volume (Bld) [Entitic vol] 9.2 fL Normal 6.2-12.0 [facility] Comment on above: Performed By: #### L 500.4050, L100.0100 ####[facility] [address] [place], [address] Platelets (Bld) [#/Vol] 210 10*3/uL Normal 150-450 [facility] Comment on above: Performed By: #### L 500.4050, L100.0100 ####[facility] [address] [place], [address] RBC (Bld) [#/Vol] 3.97 10*6/uL Low 4.2-5.4 [facility] Comment on above: Performed By: #### L 500.4050, L100.0100 ####[facility] [address] [place], [address] RDW SD 47.7 fl High 35.1-43.9 [facility] Comment on above: Performed By: #### L 500.4050, L100.0100 ####[facility] [address] [place], [address] WBC (Bld) [#/Vol] 7.9 10*3/uL Normal 4.4-11.0 [facility] Comment on above: Performed By: #### L 500.4050, L100.0100 ####[facility] [address] [place], [address] Comprehensive Metabolic [facility] 04-08-2024 Albumin [Mass/Vol] 3.9 g/dL Normal 3.2-5.0 [facility] Comment on above: Performed By: #### L 500.4050, L100.0100 ####[facility] [address] [place], [address] Albumin/Globulin [Mass ratio] 1.2 {ratio} Normal 0.9-2.4 [facility] Comment on above: Performed By: #### L 500.4050, L100.0100 ####[facility] [address] [place], [address] ALK P 91 U/L Normal 45-117 [facility] Comment on above: Performed By: #### L 500.4050, L100.0100 ####[facility] [address] [place], [address] ALT [Catalytic activity/Vol] 31 U/L Normal 13-56 [facility] Comment on above: Performed By: #### L 500.4050, L100.0100 ####[facility] [address] [place], [address] AST [Catalytic activity/Vol] 25 U/L Normal 15-37 [facility] Comment on above: Performed By: #### L 500.4050, L100.0100 ####[facility] [address] [place], [address] Bilirubin [Mass/Vol] 0.50 mg/dL Normal 0.20-1.00 [facility] Comment on above: Result Comment: For patients on eltrombopag therapy, use of Dimension [place] TBIL is not recommended. Performed By: #### L 500.4050, L100.0100 ####[facility] [address] [place], [address] BUN/CRE 31.1 RATIO High 10-20 [facility] Comment on above: Performed By: #### L 500.4050, L100.0100 ####[facility] [address] [place], [address] CA,Total 10.4 mg/dL High 8.5-10.1 [facility] Comment on above: Performed By: #### L 500.4050, L100.0100 ####[facility] [address] [place], [address] Chloride [Moles/Vol] 107 mmol/L Normal 98-107 [facility] Comment on above: Performed By: #### L 500.4050, L100.0100 ####[facility] [address], [address] CO2 [Moles/Vol] 29.0 mmol/L Normal 21.0-32.0 [facility] Comment on above: Performed By: #### L 500.4050, L100.0100 ####[facility] [address] [place], [address] Creatinine [Mass/Vol] 0.74 mg/dL Normal 0.55-1.02 [facility] Comment on above: Result Comment: The validity of the calculated GFR GFRAA in patients over70 years has not been determined. Clinical correlation isessential. Performed By: #### L 500.4050, L100.0100 ####[facility] [address] [place], [address] ECRCL 108.15 ml/min Normal [facility] Comment on above: Performed By: #### L 500.4050, L100.0100 ####[facility] [address] [place], [address] EST GFR - AA 105 mL/min Normal >60 [facility] Comment on above: Result Comment: Afri can Greek GFR Calc Performed By: #### L 500.4050, L100.0100 ####[facility] [address] [place], [address] GAP 3 Low 5-15 [facility] Comment on above: Performed By: #### L 500.4050, L100.0100 ####[facility] [address] [place], [address] GFR/1.73 sq M.predicted among non-blacks MDRD (S/P/Bld) [Vol rate/Area] 87 mL/min/{1.73_m2} Normal >60 [facility] Comment on above: Result Comment: Non- GFR Calc Performed By: #### L 500.4050, L100.0100 ####[facility] [address] [place], [address] Globulin (S) [Mass/Vol] 3.2 g/dL Normal 2.2-4.2 [facility] Comment on above: Performed By: #### L 500.4050, L100.0100 ####[facility] [address] [place], [address] Glucose [Mass/Vol] 87 mg/dL Normal 74-106 [facility] Comment on above: Performed By: #### L 500.4050, L100.0100 ####[facility] [address] [place], [address] Potassium [Moles/Vol] 4.0 mmol/L Normal 3.5-5.1 [facility] Comment on above: Performed By: #### L 500.4050, L100.0100 ####[facility] [address] [place], [address] Sodium [Moles/Vol] 139 mmol/L Normal 136-145 [facility] Comment on above: Performed By: #### L 500.4050, L100.0100 ####[facility] [address] [place], [address] T PROT 7.1 g/dL Normal 6.4-8.2 [facility] Comment on above: Performed By: #### L 500.4050, L100.0100 ####[facility] [address] [place], [address] Urea nitrogen [Mass/Vol] 23 mg/dL High 7-18 [facility] Comment on above: Performed By: #### L 500.4050, L100.0100 ####[facility] [address] [place], [address] Oncology Visit Reporton 03-11 Oncology Visit Report Normal [facility] CA 15-3on 03-19-2024 CA 15-3 33.5 U/mL Abnormal 0.0-25.0 [facility] Comment on above: Result Comment: [employer] Electrochemiluminescence Immunoassay(ECLIA)Values obtained with different assay methods or kits cannotbe used interchangeably. Results cannot be interpreted asabsolute evidence of the presence or absence of malignantdisease.Performed at: [facility] [address] [id number] Director: Ervin Hitchcock PhD, Phone: [phone] Performed By: #### L 504.2610, L3100.5040, L3100.2300, L100.0100, L3100.5000, L500.4050, L3100.5030 ####[facility] [address] [place], [place], [address] CA 27.29on 03-19-2024 CA 27.29 39.1 U/mL Abnormal 0.0-38.6 [facility] Comment on above: Result Comment: [employer] Immunochemiluminometric Methodology (ICMA)Values obtained with different assay methods or kits cannotbe used interchangeably. Results cannot be interpreted asabsolute evidence of the presence or absence of malignantdisease. Performed By: #### L 504.2610, L3100.5040, L3100.2300, L100.0100, L3100.5000, L500.4050, L3100.5030 ####[facility] [address] [place], [address](557) Cancer Antigen 125on 024 CA 125 10.2 U/mL Normal 0.0-38.1 [facility] Comment on above: Result Comment: [employer] Electrochemiluminescence Immunoassay(ECLIA)Values obtained with different assay methods or kits cannotbe used interchangeably. Results cannot be interpreted asabsolute evidence of the presence or absence of malignantdisease. Performed By: #### L 504.2610, L3100.5040, L3100.2300, L100.0100, L3100.5000, L500.4050, L3100.5030 ####[facility] [address] [place], [address] Carcinoembryonic Antigenon 1 CEA 1.0 ng/mL Normal 0.0-4.7 [facility] Comment on above: Result Comment: Nons mokers <3.9 Smokers <5.6[employer] Electrochemiluminescence Immunoassay(ECLIA)Values obtained with different assay methods or kitscannot be used interchangeably. Results cannot beinterpreted as absolute evidence of the presence orabsence of malignant disease. Performed By: #### L 504.2610, L3100.5040, L3100.2300, L100.0100, L3100.5000, L500.4050, L3100.5030 ####[facility] [address] [place], [address] Cardiology Visit Reporton Cardiology Visit Report Normal [facility] CBC W/Diff, Automatedon 03-09 Absolute Lymph 1.78 X10 3/uL Normal 0.83-4.51 [facility] Comment on above: Performed By: #### L 504.2610, L3100.5040, L3100.2300, L100.0100, L3100.5000, L500.4050, L3100.5030 ####[facility] [address] [place], [address] Absolute Neut 4.6 X10 3/uL Normal 2.0-7.7 [facility] Comment on above: Performed By: #### L 504.2610, L3100.5040, L3100.2300, L100.0100, L3100.5000, L500.4050, L3100.5030 ####[facility] [address] [place], [address] Basophils/100 WBC (Bld) 0.1 % Normal 0-1 [facility] Comment on above: Performed By: #### L 504.2610, L3100.5040, L3100.2300, L100.0100, L3100.5000, L500.4050, L3100.5030 ####[facility] [address] [place], [address] Eosinophils/100 WBC (Bld) 0.7 % Normal 0-5 [facility] Comment on above: Performed By: #### L 504.2610, L3100.5040, L3100.2300, L100.0100, L3100.5000, L500.4050, L3100.5030 ####[facility] [address] [place], [address] Erythrocyte distribution width (RBC) [Ratio] 13.5 % Normal 11.6-14.6 [facility] Comment on above: Performed By: #### L 504.2610, L3100.5040, L3100.2300, L100.0100, L3100.5000, L500.4050, L3100.5030 ####[facility] [address] [place], [address] Hematocrit (Bld) [Volume fraction] 32.6 % Low 37-47 [facility] Comment on above: Performed By: #### L 504.2610, L3100.5040, L3100.2300, L100.0100, L3100.5000, L500.4050, L3100.5030 ####[facility] [address] [place], [address] Hemoglobin (Bld) [Mass/Vol] 10.3 g/dL Low 12.0-15.0 [facility] Comment on above: Performed By: #### L 504.2610, L3100.5040, L3100.2300, L100.0100, L3100.5000, L500.4050, L3100.5030 ####[facility] [address] [place], [address] IG% 0.600 Normal 0.0-0.9 [facility] Comment on above: Result Comment: IG% - Immature Granulocytes (promyelocytes, myelocytes andmetamyelocytes) > 1% indicates that a LEFT SHIFT is Present. Performed By: #### L 504.2610, L3100.5040, L3100.2300, L100.0100, L3100.5000, L500.4050, L3100.5030 ####[facility] [address] [place], [address] Lymphocytes/100 WBC (Bld) 25.2 % Normal 19-41 [facility] Comment on above: Performed By: #### L 504.2610, L3100.5040, L3100.2300, L100.0100, L3100.5000, L500.4050, L3100.5030 ####[facility] [address] [place], [address] MCH (RBC) [Entitic mass] 31.2 pg Normal 27.0-32.0 [facility] Comment on above: Performed By: #### L 504.2610, L3100.5040, L3100.2300, L100.0100, L3100.5000, L500.4050, L3100.5030 ####[facility] [address] [place], [address] MCHC (RBC) [Mass/Vol] 31.6 g/dL Low 32-36 [facility] Comment on above: Performed By: #### L 504.2610, L3100.5040, L3100.2300, L100.0100, L3100.5000, L500.4050, L3100.5030 ####[facility] [address] [place], [address] MCV (RBC) [Entitic vol] 98.8 fL Normal 81-99 [facility] Comment on above: Performed By: #### L 504.2610, L3100.5040, L3100.2300, L100.0100, L3100.5000, L500.4050, L3100.5030 ####[facility] [address] [place], [address] Monocytes/100 WBC (Bld) 7.9 % Normal 0-10 [facility] Comment on above: Performed By: #### L 504.2610, L3100.5040, L3100.2300, L100.0100, L3100.5000, L500.4050, L3100.5030 ####[facility] [address] [place], [address] Neutrophils/100 WBC (Bld) 65.5 % Normal 47-70 [facility] Comment on above: Performed By: #### L 504.2610, L3100.5040, L3100.2300, L100.0100, L3100.5000, L500.4050, L3100.5030 ####[facility] [address] [place], [address] Nucleated RBC (Bld) [#/Vol] 0 10*3/uL Normal 0-5 [facility] Comment on above: Performed By: #### L 504.2610, L3100.5040, L3100.2300, L100.0100, L3100.5000, L500.4050, L3100.5030 ####[facility] [address] [place], [address] Platelet mean volume (Bld) [Entitic vol] 8.8 fL Normal 6.2-12.0 [facility] Comment on above: Performed By: #### L 504.2610, L3100.5040, L3100.2300, L100.0100, L3100.5000, L500.4050, L3100.5030 ####[facility] [address] [place], [address] Platelets (Bld) [#/Vol] 277 10*3/uL Normal 150-450 [facility] Comment on above: Performed By: #### L 504.2610, L3100.5040, L3100.2300, L100.0100, L3100.5000, L500.4050, L3100.5030 ####[facility] [address] [place], [address] RBC (Bld) [#/Vol] 3.30 10*6/uL Low 4.2-5.4 [facility] Comment on above: Performed By: #### L 504.2610, L3100.5040, L3100.2300, L100.0100, L3100.5000, L500.4050, L3100.5030 ####[facility] [address] [place], [place], [address] RDW SD 49.2 fl High 35.1-43.9 [facility] Comment on above: Performed By: #### L 504.2610, L3100.5040, L3100.2300, L100.0100, L3100.5000, L500.4050, L3100.5030 ####[facility] [address] [place], [address] WBC (Bld) [#/Vol] 7.1 10*3/uL Normal 4.4-11.0 [facility] Comment on above: Performed By: #### L 504.2610, L3100.5040, L3100.2300, L100.0100, L3100.5000, L500.4050, L3100.5030 ####[facility] [address] [place], [address] Cancer antigen 125 (CA-125) measurementOrdered By: Cristóbal Ford on 03-18-2024 CA 125 Antigen 10.2 U/mL 0.0-38.1 [facility] Comment on above: [employer] El ectrochemiluminescence Immunoassay(ECLIA)Values obtained with different assay methods or kits cannotbe used interchangeably. Results cannot be interpreted asabsolute evidence of the presence or absence of malignantdisease. Cancer antigen 125 (CA-125) measurement 10.2 U/mL 0.0-38.1 [facility] Comment on above: [employer] El ectrochemiluminescence Immunoassay(ECLIA)Values obtained with different assay methods or kits cannotbe used interchangeably. Results cannot be interpreted asabsolute evidence of the presence or absence of malignantdisease. Comprehensive Metabolic Prof ilon 03-18-2024 Albumin [Mass/Vol] 3.2 g/dL Normal 3.2-5.0 [facility] Comment on above: Order Comment: 1 Performed By: #### L 504.2610, L3100.5040, L3100.2300, L100.0100, L3100.5000, L500.4050, L3100.5030 ####[facility] [address] [place], [address] Albumin/Globulin [Mass ratio] 0.9 {ratio} Normal 0.9-2.4 [facility] Comment on above: Order Comment: 1 Performed By: #### L 504.2610, L3100.5040, L3100.2300, L100.0100, L3100.5000, L500.4050, L3100.5030 ####[facility] [address] [place], [address] ALK P 48 U/L Normal 45-117 [facility] Comment on above: Order Comment: 1 Performed By: #### L 504.2610, L3100.5040, L3100.2300, L100.0100, L3100.5000, L500.4050, L3100.5030 ####[facility] [address] [place], [address] ALT [Catalytic activity/Vol] 32 U/L Normal 13-56 [facility] Comment on above: Order Comment: 1 Performed By: #### L 504.2610, L3100.5040, L3100.2300, L100.0100, L3100.5000, L500.4050, L3100.5030 ####[facility] [address] [place], [address] AST [Catalytic activity/Vol] 24 U/L Normal 15-37 [facility] Comment on above: Order Comment: 1 Performed By: #### L 504.2610, L3100.5040, L3100.2300, L100.0100, L3100.5000, L500.4050, L3100.5030 ####[facility] [address] [place], [address] Bilirubin [Mass/Vol] 0.50 mg/dL Normal 0.20-1.00 [facility] Comment on above: Order Comment: 1 Result Comment: For patients on eltrombopag therapy, use of Dimension [place] TBIL is not recommended. Performed By: #### L 504.2610, L3100.5040, L3100.2300, L100.0100, L3100.5000, L500.4050, L3100.5030 ####[facility] [address] [place], [address] BUN/CRE 24.0 RATIO High 10-20 [facility] Comment on above: Order Comment: 1 Performed By: #### L 504.2610, L3100.5040, L3100.2300, L100.0100, L3100.5000, L500.4050, L3100.5030 ####[facility] [address] [place], [address] CA,Total 10.0 mg/dL Normal 8.5-10.1 [facility] Comment on above: Order Comment: 1 Performed By: #### L 504.2610, L3100.5040, L3100.2300, L100.0100, L3100.5000, L500.4050, L3100.5030 ####[facility] [address] [place], [address] Chloride [Moles/Vol] 108 mmol/L High 98-107 [facility] Comment on above: Order Comment: 1 Performed By: #### L 504.2610, L3100.5040, L3100.2300, L100.0100, L3100.5000, L500.4050, L3100.5030 ####[facility] [address] [place], [address] CO2 [Moles/Vol] 28.0 mmol/L Normal 21.0-32.0 [facility] Comment on above: Order Comment: 1 Performed By: #### L 504.2610, L3100.5040, L3100.2300, L100.0100, L3100.5000, L500.4050, L3100.5030 ####[facility] [address] [place], [address] Creatinine [Mass/Vol] 0.84 mg/dL Normal 0.55-1.02 [facility] Comment on above: Order Comment: 1 Result Comment: The validity of the calculated GFR GFRAA in patients over70 years has not been determined. Clinical correlation isessential. Performed By: #### L 504.2610, L3100.5040, L3100.2300, L100.0100, L3100.5000, L500.4050, L3100.5030 ####[facility] [address] [place], [address] ECRCL 95.10 ml/min Normal [facility] Comment on above: Order Comment: 1 Performed By: #### L 504.2610, L3100.5040, L3100.2300, L100.0100, L3100.5000, L500.4050, L3100.5030 ####[facility] [address] [place], [address] EST GFR - AA 91 mL/min Normal >60 [facility] Comment on above: Order Comment: 1 Result Comment: Afri can Greek GFR Calc Performed By: #### L 504.2610, L3100.5040, L3100.2300, L100.0100, L3100.5000, L500.4050, L3100.5030 ####[facility] [address] [place], [address] GAP 5 Normal 5-15 [facility] Comment on above: Order Comment: 1 Performed By: #### L 504.2610, L3100.5040, L3100.2300, L100.0100, L3100.5000, L500.4050, L3100.5030 ####[facility] [address] [place], [address] GFR/1.73 sq M.predicted among non-blacks MDRD (S/P/Bld) [Vol rate/Area] 75 mL/min/{1.73_m2} Normal >60 [facility] Comment on above: Order Comment: 1 Result Comment: Non- GFR Calc Performed By: #### L 504.2610, L3100.5040, L3100.2300, L100.0100, L3100.5000, L500.4050, L3100.5030 ####[facility] [address] [place], [address] Globulin (S) [Mass/Vol] 3.7 g/dL Normal 2.2-4.2 [facility] Comment on above: Order Comment: 1 Performed By: #### L 504.2610, L3100.5040, L3100.2300, L100.0100, L3100.5000, L500.4050, L3100.5030 ####[facility] [address] [place], [address] Glucose [Mass/Vol] 102 mg/dL Normal 74-106 [facility] Comment on above: Order Comment: 1 Result Comment: Fast ing Glucose result from 100 to 125 mg/dLsuggests IMPAIRED HOMEOSTASIS per A.D.A. criteria. Performed By: #### L 504.2610, L3100.5040, L3100.2300, L100.0100, L3100.5000, L500.4050, L3100.5030 ####[facility] [address] [place], [address] Potassium [Moles/Vol] 4.0 mmol/L Normal 3.5-5.1 [facility] Comment on above: Order Comment: 1 Performed By: #### L 504.2610, L3100.5040, L3100.2300, L100.0100, L3100.5000, L500.4050, L3100.5030 ####[facility] [address] [place], [address] Sodium [Moles/Vol] 142 mmol/L Normal 136-145 [facility] Comment on above: Order Comment: 1 Performed By: #### L 504.2610, L3100.5040, L3100.2300, L100.0100, L3100.5000, L500.4050, L3100.5030 ####[facility] [address] [place], [address] T PROT 6.9 g/dL Normal 6.4-8.2 [facility] Comment on above: Order Comment: 1 Performed By: #### L 504.2610, L3100.5040, L3100.2300, L100.0100, L3100.5000, L500.4050, L3100.5030 ####[facility] [address] [place], [address] Urea nitrogen [Mass/Vol] 20 mg/dL High 7-18 [facility] Comment on above: Order Comment: 1 Performed By: #### L 504.2610, L3100.5040, L3100.2300, L100.0100, L3100.5000, L500.4050, L3100.5030 ####[facility] [address] [place], [address] LDHon 03-18-2024 LDH 217 U/L Normal 84-246 [facility] Comment on above: Order Comment: 1 Performed By: #### L 504.2610, L3100.5040, L3100.2300, L100.0100, L3100.5000, L500.4050, L3100.5030 ####[facility] [address] [place], [address] Oncology Visit Reporton 03-09 Oncology Visit Report Normal [facility] CA 15-3on 02-27-2024 CA 15-3 42.6 U/mL Abnormal 0.0-25.0 [facility] Comment on above: Order Comment: DR FRANCISCO GARNETT ORDERED ALBUMIN, BMP, CBCDALL OTHER ORDERES INCLUDING CBCD ARE DR FORD'S Result Comment: [employer] Electrochemiluminescence Immunoassay(ECLIA)Values obtained with different assay methods or kits cannotbe used interchangeably. Results cannot be interpreted asabsolute evidence of the presence or absence of malignantdisease.Performed at: [address] [id number] Director: Ervin Hitchcock PhD, Phone: [phone] Performed By: #### L 100.0100, L3100.2300, L500.4050, L3100.5000, L504.2610, L3100.5030, L3100.5040 ####[facility] [address] [place], [place], [id number] CA 27.29on 02-27-2024 CA 27.29 49.8 U/mL Abnormal 0.0-38.6 [facility] Comment on above: Order Comment: DR FRANCISCO GARNETT ORDERED ALBUMIN, BMP, CBCDALL OTHER ORDERES INCLUDING CBCD ARE DR FORD'S Result Comment: [employer] Immunochemiluminometric Methodology (ICMA)Values obtained with different assay methods or kits cannotbe used interchangeably. Results cannot be interpreted asabsolute evidence of the presence or absence of malignantdisease. Performed By: #### L 100.0100, L3100.2300, L500.4050, L3100.5000, L504.2610, L3100.5030, L3100.5040 ####[facility] [address] [place], [place], [id number] Cancer Antigen 125on 02-26-2 024 CA 125 10.7 U/mL Normal 0.0-38.1 [facility] Comment on above: Order Comment: DR FRANCISCO GARNETT ORDERED ALBUMIN, BMP, CBCDALL OTHER ORDERES INCLUDING CBCD ARE DR FORD'S Result Comment: [employer] Electrochemiluminescence Immunoassay(ECLIA)Values obtained with different assay methods or kits cannotbe used interchangeably. Results cannot be interpreted asabsolute evidence of the presence or absence of malignantdisease. Performed By: #### L 100.0100, L3100.2300, L500.4050, L3100.5000, L504.2610, L3100.5030, L3100.5040 ####[facility] [address] [place], [address] Carcinoembryonic Antigenon 0 02-27-2024 CEA 1.3 ng/mL Normal 0.0-4.7 [facility] Comment on above: Order Comment: DR FRANCISCO GARNETT ORDERED ALBUMIN, BMP, CBCDALL OTHER ORDERES INCLUDING CBCD ARE DR FORD'S Result Comment: Nons mokers <3.9 Smokers <5.6[employer] Electrochemiluminescence Immunoassay(ECLIA)Values obtained with different assay methods or kitscannot be used interchangeably. Results cannot beinterpreted as absolute evidence of the presence orabsence of malignant disease. Performed By: #### L 100.0100, L3100.2300, L500.4050, L3100.5000, L504.2610, L3100.5030, L3100.5040 ####[facility] [address] [place], [place], [phone]) CBC W/Diff, Automatedon 02-07 Absolute Lymph 3.04 X10 3/uL Normal 0.83-4.51 [facility] Comment on above: Order Comment: DR FRANCISCO GARNETT ORDERED ALBUMIN, BMP, CBCDALL OTHER ORDERES INCLUDING CBCD ARE DR FORD'S Performed By: #### L 100.0100, L3100.2300, L500.4050, L3100.5000, L504.2610, L3100.5030, L3100.5040 ####[facility] [address] [place], [address] Absolute Neut 7.6 X10 3/uL Normal 2.0-7.7 [facility] Comment on above: Order Comment: DR FRANCISCO GARNETT ORDERED ALBUMIN, BMP, CBCDALL OTHER ORDERES INCLUDING CBCD ARE DR CURRANS Performed By: #### L 100.0100, L3100.2300, L500.4050, L3100.5000, L504.2610, L3100.5030, L3100.5040 ####[facility] [address] [place], [address] Basophils/100 WBC (Bld) 0.2 % Normal 0-1 [facility] Comment on above: Order Comment: DR FRANCISCO GARNETT ORDERED ALBUMIN, BMP, CBCDALL OTHER ORDERES INCLUDING CBCD ARE DR CURRANS Performed By: #### L 100.0100, L3100.2300, L500.4050, L3100.5000, L504.2610, L3100.5030, L3100.5040 ####[facility] [address] [place], [address] Eosinophils/100 WBC (Bld) 0.3 % Normal 0-5 [facility] Comment on above: Order Comment: DR FRANCISCO GARNETT ORDERED ALBUMIN, BMP, CBCDALL OTHER ORDERES INCLUDING CBCD ARE DR CURRANS Performed By: #### L 100.0100, L3100.2300, L500.4050, L3100.5000, L504.2610, L3100.5030, L3100.5040 ####[facility] [address] [place], [address] Erythrocyte distribution width (RBC) [Ratio] 13.4 % Normal 11.6-14.6 [facility] Comment on above: Order Comment: DR FRANCISCO GARNETT ORDERED ALBUMIN, BMP, CBCDALL OTHER ORDERES INCLUDING CBCD ARE DR CURRANS Performed By: #### L 100.0100, L3100.2300, L500.4050, L3100.5000, L504.2610, L3100.5030, L3100.5040 ####[facility] [address] [place], [address] Hematocrit (Bld) [Volume fraction] 40.2 % Normal 37-47 [facility] Comment on above: Order Comment: DR FRANCISCO GARNETT ORDERED ALBUMIN, BMP, CBCDALL OTHER ORDERES INCLUDING CBCD ARE DR CURRANS Performed By: #### L 100.0100, L3100.2300, L500.4050, L3100.5000, L504.2610, L3100.5030, L3100.5040 ####[facility] [address] [place], [address] Hemoglobin (Bld) [Mass/Vol] 13.1 g/dL Normal 12.0-15.0 [facility] Comment on above: Order Comment: DR FRANCISCO GARNETT ORDERED ALBUMIN, BMP, CBCDALL OTHER ORDERES INCLUDING CBCD ARE DR FORD'S Performed By: #### L 100.0100, L3100.2300, L500.4050, L3100.5000, L504.2610, L3100.5030, L3100.5040 ####[facility] [address] [place], [address] IG% 0.500 Normal 0.0-0.9 [facility] Comment on above: Order Comment: DR FRANCISCO GARNETT ORDERED ALBUMIN, BMP, CBCDALL OTHER ORDERES INCLUDING CBCD ARE DR FORD'S Result Comment: IG% - Immature Granulocytes (promyelocytes, myelocytes andmetamyelocytes) > 1% indicates that a LEFT SHIFT is Present. Performed By: #### L 100.0100, L3100.2300, L500.4050, L3100.5000, L504.2610, L3100.5030, L3100.5040 ####[facility] [address] [place], [address] Lymphocytes/100 WBC (Bld) 26.3 % Normal 19-41 [facility] Comment on above: Order Comment: DR FRANCISCO GARNETT ORDERED ALBUMIN, BMP, CBCDALL OTHER ORDERES INCLUDING CBCD ARE DR FORD'S Performed By: #### L 100.0100, L3100.2300, L500.4050, L3100.5000, L504.2610, L3100.5030, L3100.5040 ####[facility] [address] [place], [address] MCH (RBC) [Entitic mass] 31.0 pg Normal 27.0-32.0 [facility] Comment on above: Order Comment: DR FRANCISCO GARNETT ORDERED ALBUMIN, BMP, CBCDALL OTHER ORDERES INCLUDING CBCD ARE DR PRAH'S Performed By: #### L 100.0100, L3100.2300, L500.4050, L3100.5000, L504.2610, L3100.5030, L3100.5040 ####[facility] [address] [place], [address] MCHC (RBC) [Mass/Vol] 32.6 g/dL Normal 32-36 [facility] Comment on above: Order Comment: DR FRANCISCO GARNETT ORDERED ALBUMIN, BMP, CBCDALL OTHER ORDERES INCLUDING CBCD ARE DR FORD'S Performed By: #### L 100.0100, L3100.2300, L500.4050, L3100.5000, L504.2610, L3100.5030, L3100.5040 ####[facility] [address] [place], [address] MCV (RBC) [Entitic vol] 95.3 fL Normal 81-99 [facility] Comment on above: Order Comment: DR FRANCISCO GARNETT ORDERED ALBUMIN, BMP, CBCDALL OTHER ORDERES INCLUDING CBCD ARE DR FORD'S Performed By: #### L 100.0100, L3100.2300, L500.4050, L3100.5000, L504.2610, L3100.5030, L3100.5040 ####[facility] [address] [place], [address] Monocytes/100 WBC (Bld) 6.9 % Normal 0-10 [facility] Comment on above: Order Comment: DR FRANCISCO GARNETT ORDERED ALBUMIN, BMP, CBCDALL OTHER ORDERES INCLUDING CBCD ARE DR FORD'S Performed By: #### L 100.0100, L3100.2300, L500.4050, L3100.5000, L504.2610, L3100.5030, L3100.5040 ####[facility] [address] [place], [address] Neutrophils/100 WBC (Bld) 65.8 % Normal 47-70 [facility] Comment on above: Order Comment: DR FRANCISCO GARNETT ORDERED ALBUMIN, BMP, CBCDALL OTHER ORDERES INCLUDING CBCD ARE DR CURRANS Performed By: #### L 100.0100, L3100.2300, L500.4050, L3100.5000, L504.2610, L3100.5030, L3100.5040 ####[facility] [address] [place], [address] Nucleated RBC (Bld) [#/Vol] 0 10*3/uL Normal 0-5 [facility] Comment on above: Order Comment: DR FRANCISCO GARNETT ORDERED ALBUMIN, BMP, CBCDALL OTHER ORDERES INCLUDING CBCD ARE DR FORD'S Performed By: #### L 100.0100, L3100.2300, L500.4050, L3100.5000, L504.2610, L3100.5030, L3100.5040 ####[facility] [address] [place], [place], [phone] Platelet mean volume (Bld) [Entitic vol] 8.9 fL Normal 6.2-12.0 [facility] Comment on above: Order Comment: DR FRANCISCO GARNETT ORDERED ALBUMIN, BMP, CBCDALL OTHER ORDERES INCLUDING CBCD ARE DR FORD'S Performed By: #### L 100.0100, L3100.2300, L500.4050, L3100.5000, L504.2610, L3100.5030, L3100.5040 ####[facility] [address] [place], [address] Platelets (Bld) [#/Vol] 210 10*3/uL Normal 150-450 [facility] Comment on above: Order Comment: DR FRANCISCO GARNETT ORDERED ALBUMIN, BMP, CBCDALL OTHER ORDERES INCLUDING CBCD ARE DR CURRANS Performed By: #### L 100.0100, L3100.2300, L500.4050, L3100.5000, L504.2610, L3100.5030, L3100.5040 ####[facility] [address] [place], [address] RBC (Bld) [#/Vol] 4.22 10*6/uL Normal 4.2-5.4 [facility] Comment on above: Order Comment: DR FRANCISCO GARNETT ORDERED ALBUMIN, BMP, CBCDALL OTHER ORDERES INCLUDING CBCD ARE DR CURRANS Performed By: #### L 100.0100, L3100.2300, L500.4050, L3100.5000, L504.2610, L3100.5030, L3100.5040 ####[facility] [address] [place], [address] RDW SD 47.0 fl High 35.1-43.9 [facility] Comment on above: Order Comment: DR FRANCISCO GARNETT ORDERED ALBUMIN, BMP, CBCDALL OTHER ORDERES INCLUDING CBCD ARE DR CURRANS Performed By: #### L 100.0100, L3100.2300, L500.4050, L3100.5000, L504.2610, L3100.5030, L3100.5040 ####[facility] [address] [place], [address] WBC (Bld) [#/Vol] 11.6 10*3/uL High 4.4-11.0 [facility] Comment on above: Order Comment: DR FRANCISCO GARNETT ORDERED ALBUMIN, BMP, CBCDALL OTHER ORDERES INCLUDING CBCD ARE DR CURRANS Performed By: #### L 100.0100, L3100.2300, L500.4050, L3100.5000, L504.2610, L3100.5030, L3100.5040 ####[facility] [address] [place], [place], [phone]) Comprehensive Metabolic Prof ilhao 02-26-2024 Albumin [Mass/Vol] 3.7 g/dL Normal 3.2-5.0 [facility] Comment on above: Order Comment: DR FRANCISCO GARNETT ORDERED ALBUMIN, BMP, CBCDALL OTHER ORDERES INCLUDING CBCD ARE DR CURRANS1 Performed By: #### L 100.0100, L3100.2300, L500.4050, L3100.5000, L504.2610, L3100.5030, L3100.5040 ####[facility] [address] [place], [address] Albumin/Globulin [Mass ratio] 1.2 {ratio} Normal 0.9-2.4 [facility] Comment on above: Order Comment: DR FRANCISCO GARNETT ORDERED ALBUMIN, BMP, CBCDALL OTHER ORDERES INCLUDING CBCD ARE DR JASSO Performed By: #### L 100.0100, L3100.2300, L500.4050, L3100.5000, L504.2610, L3100.5030, L3100.5040 ####[facility] [address] [place], [address] ALK P 48 U/L Normal 45-117 [facility] Comment on above: Order Comment: DR FRANCISCO GARNETT ORDERED ALBUMIN, BMP, CBCDALL OTHER ORDERES INCLUDING CBCD ARE DR JASSO Performed By: #### L 100.0100, L3100.2300, L500.4050, L3100.5000, L504.2610, L3100.5030, L3100.5040 ####[facility] [address] [place], [address] ALT [Catalytic activity/Vol] 41 U/L Normal 13-56 [facility] Comment on above: Order Comment: DR FRANCISCO GARNETT ORDERED ALBUMIN, BMP, CBCDALL OTHER ORDERES INCLUDING CBCD ARE DR JASSO Performed By: #### L 100.0100, L3100.2300, L500.4050, L3100.5000, L504.2610, L3100.5030, L3100.5040 ####[facility] [address] [place], [address] AST [Catalytic activity/Vol] 26 U/L Normal 15-37 [facility] Comment on above: Order Comment: DR FRANCISCO GARNETT ORDERED ALBUMIN, BMP, CBCDALL OTHER ORDERES INCLUDING CBCD ARE DR JASSO Performed By: #### L 100.0100, L3100.2300, L500.4050, L3100.5000, L504.2610, L3100.5030, L3100.5040 ####[facility] [address] [place], [address] Bilirubin [Mass/Vol] 0.30 mg/dL Normal 0.20-1.00 [facility] Comment on above: Order Comment: DR FRANCISCO GARNETT ORDERED ALBUMIN, BMP, CBCDALL OTHER ORDERES INCLUDING CBCD ARE DR FORD'S1 Result Comment: For patients on eltrombopag therapy, use of Dimension [place] TBIL is not recommended. Performed By: #### L 100.0100, L3100.2300, L500.4050, L3100.5000, L504.2610, L3100.5030, L3100.5040 ####[facility] [address] [place], [place], [phone]) BUN/CRE 27.2 RATIO High 10-20 [facility] Comment on above: Order Comment: DR FRANCISCO GARNETT ORDERED ALBUMIN, BMP, CBCDALL OTHER ORDERES INCLUDING CBCD ARE DR FORD'S1 Performed By: #### L 100.0100, L3100.2300, L500.4050, L3100.5000, L504.2610, L3100.5030, L3100.5040 ####[facility] [address] [place], [place], [phone] CA,Total 10.6 mg/dL High 8.5-10.1 [facility] Comment on above: Order Comment: DR FRANCISCO GARNETT ORDERED ALBUMIN, BMP, CBCDALL OTHER ORDERES INCLUDING CBCD ARE DR FORD'S1 Performed By: #### L 100.0100, L3100.2300, L500.4050, L3100.5000, L504.2610, L3100.5030, L3100.5040 ####[facility] [address] [place], [address] Chloride [Moles/Vol] 107 mmol/L Normal 98-107 [facility] Comment on above: Order Comment: DR FRANCISCO GARNETT ORDERED ALBUMIN, BMP, CBCDALL OTHER ORDERES INCLUDING CBCD ARE DR CURRANS1 Performed By: #### L 100.0100, L3100.2300, L500.4050, L3100.5000, L504.2610, L3100.5030, L3100.5040 ####[facility] [address] [place], [address] CO2 [Moles/Vol] 27.0 mmol/L Normal 21.0-32.0 [facility] Comment on above: Order Comment: DR FRANCISCO GARNETT ORDERED ALBUMIN, BMP, CBCDALL OTHER ORDERES INCLUDING CBCD ARE DR CURRANS1 Performed By: #### L 100.0100, L3100.2300, L500.4050, L3100.5000, L504.2610, L3100.5030, L3100.5040 ####[facility] [address] [place], [address] Creatinine [Mass/Vol] 0.74 mg/dL Normal 0.55-1.02 [facility] Comment on above: Order Comment: DR FRANCISCO GARNETT ORDERED ALBUMIN, BMP, CBCDALL OTHER ORDERES INCLUDING CBCD ARE DR FORD'S1 Result Comment: The validity of the calculated GFR GFRAA in patients over70 years has not been determined. Clinical correlation isessential. Performed By: #### L 100.0100, L3100.2300, L500.4050, L3100.5000, L504.2610, L3100.5030, L3100.5040 ####[facility] [address] [place], [address] ECRCL 109.93 ml/min Normal [facility] Comment on above: Order Comment: DR FRANCISCO GARNETT ORDERED ALBUMIN, BMP, CBCDALL OTHER ORDERES INCLUDING CBCD ARE DR CURRANS1 Performed By: #### L 100.0100, L3100.2300, L500.4050, L3100.5000, L504.2610, L3100.5030, L3100.5040 ####[facility] [address] [place], [address] EST GFR - AA 106 mL/min Normal >60 [facility] Comment on above: Order Comment: DR FRANCISCO GARNETT ORDERED ALBUMIN, BMP, CBCDALL OTHER ORDERES INCLUDING CBCD ARE DR FORD'S1 Result Comment: Afri can Greek GFR Calc Performed By: #### L 100.0100, L3100.2300, L500.4050, L3100.5000, L504.2610, L3100.5030, L3100.5040 ####[facility] [address] [place], [address] GAP 7 Normal 5-15 [facility] Comment on above: Order Comment: DR FRANCISCO GARNETT ORDERED ALBUMIN, BMP, CBCDALL OTHER ORDERES INCLUDING CBCD ARE DR FORD'S1 Performed By: #### L 100.0100, L3100.2300, L500.4050, L3100.5000, L504.2610, L3100.5030, L3100.5040 ####[facility] [address] [place], [address] GFR/1.73 sq M.predicted among non-blacks MDRD (S/P/Bld) [Vol rate/Area] 87 mL/min/{1.73_m2} Normal >60 [facility] Comment on above: Order Comment: DR FRANCISCO GARNETT ORDERED ALBUMIN, BMP, CBCDALL OTHER ORDERES INCLUDING CBCD ARE DR FORD'S1 Result Comment: Non- GFR Calc Performed By: #### L 100.0100, L3100.2300, L500.4050, L3100.5000, L504.2610, L3100.5030, L3100.5040 ####[facility] [address] [place], [address] Globulin (S) [Mass/Vol] 3.2 g/dL Normal 2.2-4.2 [facility] Comment on above: Order Comment: DR FRANCISCO GARNETT ORDERED ALBUMIN, BMP, CBCDALL OTHER ORDERES INCLUDING CBCD ARE DR PRAH'S1 Performed By: #### L 100.0100, L3100.2300, L500.4050, L3100.5000, L504.2610, L3100.5030, L3100.5040 ####[facility] [address] [place], [address] Glucose [Mass/Vol] 101 mg/dL Normal 74-106 [facility] Comment on above: Order Comment: DR FRANCISCO GARNETT ORDERED ALBUMIN, BMP, CBCDALL OTHER ORDERES INCLUDING CBCD ARE DR FORD'S1 Result Comment: Fast ing Glucose result from 100 to 125 mg/dLsuggests IMPAIRED HOMEOSTASIS per A.D.A. criteria. Performed By: #### L 100.0100, L3100.2300, L500.4050, L3100.5000, L504.2610, L3100.5030, L3100.5040 ####[facility] [address] [place], [address] Potassium [Moles/Vol] 4.0 mmol/L Normal 3.5-5.1 [facility] Comment on above: Order Comment: DR FRANCISCO GARNETT ORDERED ALBUMIN, BMP, CBCDALL OTHER ORDERES INCLUDING CBCD ARE DR FORD'S1 Performed By: #### L 100.0100, L3100.2300, L500.4050, L3100.5000, L504.2610, L3100.5030, L3100.5040 ####[facility] [address] [place], [address] Sodium [Moles/Vol] 141 mmol/L Normal 136-145 [facility] Comment on above: Order Comment: DR FRANCISCO GARNETT ORDERED ALBUMIN, BMP, CBCDALL OTHER ORDERES INCLUDING CBCD ARE DR FORD'S1 Performed By: #### L 100.0100, L3100.2300, L500.4050, L3100.5000, L504.2610, L3100.5030, L3100.5040 ####[facility] [address] [place], [address] T PROT 6.9 g/dL Normal 6.4-8.2 [facility] Comment on above: Order Comment: DR FRANCISCO GARNETT ORDERED ALBUMIN, BMP, CBCDALL OTHER ORDERES INCLUDING CBCD ARE DR CURRANS1 Performed By: #### L 100.0100, L3100.2300, L500.4050, L3100.5000, L504.2610, L3100.5030, L3100.5040 ####[facility] [address] [place], [address] Urea nitrogen [Mass/Vol] 20 mg/dL High 7-18 [facility] Comment on above: Order Comment: DR FRANCISCO GARNETT ORDERED ALBUMIN, BMP, CBCDALL OTHER ORDERES INCLUDING CBCD ARE DR CURRANS1 Performed By: #### L 100.0100, L3100.2300, L500.4050, L3100.5000, L504.2610, L3100.5030, L3100.5040 ####[facility] [address] [place], [address] LDHon 02-26-2024 LDH 173 U/L Normal 84-246 [facility] Comment on above: Order Comment: DR FRANCISCO GARNETT ORDERED ALBUMIN, BMP, CBCDALL OTHER ORDERES INCLUDING CBCD ARE DR CURRANS1 Performed By: #### L 100.0100, L3100.2300, L500.4050, L3100.5000, L504.2610, L3100.5030, L3100.5040 ####[facility] [address] [place], [address] Oncology Visit Reporton 02-07 Oncology Visit Report Normal [facility] Internal Medicine Office Vis iton 02-20-2024 Internal Medicine Office Visit Normal [facility] 12 Lead EKGon 02-12-2024 12 Lead EKG Normal [facility] Extremity Lower without Cont raon 02-12-2024 Extremity Lower without Contra Normal [facility] ONC Echo Completeon 02-10-20 24 ONC Echo Complete Normal [facility] CA 15-3on 02-06-2024 CA 15-3 38.6 U/mL Abnormal 0.0-25.0 [facility] Comment on above: Result Comment: [employer] [employer] Electrochemiluminescence Immunoassay(ECLIA)Values obtained with different assay methods or kits cannotbe used interchangeably. Results cannot be interpreted asabsolute evidence of the presence or absence of malignantdisease.Performed at: [address] [id number] Director: Ervin Hitchcock PhD, Phone: [phone] Performed By: #### L 3100.5030, L3100.5040 ####[facility] [address] [place], [address] CA 27.29on 02-06-2024 CA 27.29 47.1 U/mL Abnormal 0.0-38.6 [facility] Comment on above: Result Comment: [employer] Immunochemiluminometric Methodology (ICMA)Values obtained with different assay methods or kits cannotbe used interchangeably. Results cannot be interpreted asabsolute evidence of the presence or absence of malignantdisease. Performed By: #### L 3100.5030, L3100.5040 ####[facility] [address] [place], [address] CBC-Complete Blood Cnt No Di ffon 02-05-2024 Erythrocyte distribution width (RBC) [Ratio] 13.2 % Normal 11.6-14.6 [facility] Comment on above: Performed By: #### L 500.4050, L100.0500 ####[facility] [address] [place], [address] Hematocrit (Bld) [Volume fraction] 40.1 % Normal 37-47 [facility] Comment on above: Performed By: #### L 500.4050, L100.0500 ####[facility] [address] [place], [address] Hemoglobin (Bld) [Mass/Vol] 13.1 g/dL Normal 12.0-15.0 [facility] Comment on above: Performed By: #### L 500.4050, L100.0500 ####[facility] [address] [place], [address] MCH (RBC) [Entitic mass] 31.3 pg Normal 27.0-32.0 [facility] Comment on above: Performed By: #### L 500.4050, L100.0500 ####[facility] [address] [place], [address] MCHC (RBC) [Mass/Vol] 32.7 g/dL Normal 32-36 [facility] Comment on above: Performed By: #### L 500.4050, L100.0500 ####[facility] [address] [place], [address] MCV (RBC) [Entitic vol] 95.9 fL Normal 81-99 [facility] Comment on above: Performed By: #### L 500.4050, L100.0500 ####[facility] [address] [place], [address] Platelet mean volume (Bld) [Entitic vol] 9.3 fL Normal 6.2-12.0 [facility] Comment on above: Performed By: #### L 500.4050, L100.0500 ####[facility] [address] [place], [address] Platelets (Bld) [#/Vol] 181 10*3/uL Normal 150-450 [facility] Comment on above: Performed By: #### L 500.4050, L100.0500 ####[facility] [address] [place], [address] RBC (Bld) [#/Vol] 4.18 10*6/uL Low 4.2-5.4 [facility] Comment on above: Performed By: #### L 500.4050, L100.0500 ####[facility] [address] [place], [address] RDW SD 46.5 fl High 35.1-43.9 [facility] Comment on above: Performed By: #### L 500.4050, L100.0500 ####[facility] [address] [place], [address] WBC (Bld) [#/Vol] 8.7 10*3/uL Normal 4.4-11.0 [facility] Comment on above: Performed By: #### L 500.4050, L100.0500 ####[facility] [address] [place], [address] Comprehensive Metabolic Prof [facility] 02-05-2024 Albumin [Mass/Vol] 3.5 g/dL Normal 3.2-5.0 [facility] Comment on above: Performed By: #### L 500.4050, L100.0500 ####[facility] [address] [place], [address] Albumin/Globulin [Mass ratio] 1.1 {ratio} Normal 0.9-2.4 [facility] Comment on above: Performed By: #### L 500.4050, L100.0500 ####[facility] [address] [place], [address] ALK P 50 U/L Normal 45-117 [facility] Comment on above: Performed By: #### L 500.4050, L100.0500 ####[facility] [address] [place], [address] ALT [Catalytic activity/Vol] 50 U/L Normal 13-56 [facility] Comment on above: Performed By: #### L 500.4050, L100.0500 ####[facility] [address] [place], [address] AST [Catalytic activity/Vol] 42 U/L High 15-37 [facility] Comment on above: Performed By: #### L 500.4050, L100.0500 ####[facility] [address] [place], [address] Bilirubin [Mass/Vol] 0.40 mg/dL Normal 0.20-1.00 [facility] Comment on above: Result Comment: For patients on eltrombopag therapy, use of Dimension [place] TBIL is not recommended. Performed By: #### L 500.4050, L100.0500 ####[facility] [address] [place], [address] BUN/CRE 24.0 RATIO High 10-20 [facility] Comment on above: Performed By: #### L 500.4050, L100.0500 ####[facility] [address] [place], [address] CA,Total 10.4 mg/dL High 8.5-10.1 [facility] Comment on above: Performed By: #### L 500.4050, L100.0500 ####[facility] [address] [place], [address] Chloride [Moles/Vol] 108 mmol/L High 98-107 [facility] Comment on above: Performed By: #### L 500.4050, L100.0500 ####[facility] [address] [place], [address] CO2 [Moles/Vol] 27.0 mmol/L Normal 21.0-32.0 [facility] Comment on above: Performed By: #### L 500.4050, L100.0500 ####[facility] [address] [place], [address] Creatinine [Mass/Vol] 0.83 mg/dL Normal 0.55-1.02 [facility] Comment on above: Result Comment: The validity of the calculated GFR GFRAA in patients over70 years has not been determined. Clinical correlation isessential. Performed By: #### L 500.4050, L100.0500 ####[facility] [address] [place], [address] ECRCL 97.82 ml/min Normal [facility] Comment on above: Performed By: #### L 500.4050, L100.0500 ####[facility] [address] [place], [address] EST GFR - AA 92 mL/min Normal >60 [facility] Comment on above: Result Comment: Afri can Greek GFR Calc Performed By: #### L 500.4050, L100.0500 ####[facility] [address] [place], [address] GAP 6 Normal 5-15 [facility] Comment on above: Performed By: #### L 500.4050, L100.0500 ####[facility] [address] [place], [address] GFR/1.73 sq M.predicted among non-blacks MDRD (S/P/Bld) [Vol rate/Area] 76 mL/min/{1.73_m2} Normal >60 [facility] Comment on above: Result Comment: Non- GFR Calc Performed By: #### L 500.4050, L100.0500 ####[facility] [address] [place], [address] Globulin (S) [Mass/Vol] 3.3 g/dL Normal 2.2-4.2 [facility] Comment on above: Performed By: #### L 500.4050, L100.0500 ####[facility] [address] [place], [address] Glucose [Mass/Vol] 133 mg/dL High 74-106 [facility] Comment on above: Result Comment: Fast ing Glucose result greater than or equal to 126 mg/dLsuggests DIABETES MELLITUS per A.D.A. criteria. Performed By: #### L 500.4050, L100.0500 ####[facility] [address] [place], [address] Potassium [Moles/Vol] 3.7 mmol/L Normal 3.5-5.1 [facility] Comment on above: Performed By: #### L 500.4050, L100.0500 ####[facility] [address] [place], [address] Sodium [Moles/Vol] 141 mmol/L Normal 136-145 [facility] Comment on above: Performed By: #### L 500.4050, L100.0500 ####[facility] [address] [place], [address] T PROT 6.8 g/dL Normal 6.4-8.2 [facility] Comment on above: Performed By: #### L 500.4050, L100.0500 ####[facility] [address] [place], [address] Urea nitrogen [Mass/Vol] 20 mg/dL High 7-18 [facility] Comment on above: Performed By: #### L 500.4050, L100.0500 ####[facility] [address] [place], [address] Oncology Visit Reporton 01-08 Oncology Visit Report Normal [facility] CA 15-3on 01-17-2024 CA 15-3 37.3 U/mL Abnormal 0.0-25.0 [facility] Comment on above: Order Comment: ОЛЕГ Wilson ADD TO BLOOD IN LAB. THANK YOU!! Result Comment: [employer] [facility] Electrochemiluminescence Immunoassay(ECLIA)Values obtained with different assay methods or kits cannotbe used interchangeably. Results cannot be interpreted asabsolute evidence of the presence or absence of malignantdisease.Performed at: [address] [id number] Director: Ervin Hitchcock PhD, Phone: [phone] Performed By: #### L 3100.5030, L500.4050, L3100.5040, L100.0100 ####[facility] [address] [place], [address] CA 27.29on 01-17-2024 CA 27.29 48.3 U/mL Abnormal 0.0-38.6 [facility] Comment on above: Order Comment: PLEAS E ADD TO BLOOD IN LAB. THANK YOU!! Result Comment: [employer] Immunochemiluminometric Methodology (ICMA)Values obtained with different assay methods or kits cannotbe used interchangeably. Results cannot be interpreted asabsolute evidence of the presence or absence of malignantdisease. Performed By: #### L 3100.5030, L500.4050, L3100.5040, L100.0100 ####[facility] [address] [place], [address] Bilirubin directOrdered By: Jesus Varma on 01-15-2024 Bilirubin.direct [Mass/Vol] 0.15 mg/dL 0.00-0.30 [facility] CBC W/Diff, Automatedon Absolute Lymph 2.29 X10 3/uL Normal 0.83-4.51 [facility] Comment on above: Order Comment: INFUS ION TO DRAW Performed By: #### L 3100.5030, L500.4050, L3100.5040, L100.0100 ####[facility] [address] [place], [address] Absolute Neut 5.3 X10 3/uL Normal 2.0-7.7 [facility] Comment on above: Order Comment: INFUS ION TO DRAW Performed By: #### L 3100.5030, L500.4050, L3100.5040, L100.0100 ####[facility] [address] [place], [address] Basophils/100 WBC (Bld) 0.1 % Normal 0-1 [facility] Comment on above: Order Comment: INFUS ION TO DRAW Performed By: #### L 3100.5030, L500.4050, L3100.5040, L100.0100 ####[facility] [address] [place], [address] Eosinophils/100 WBC (Bld) 0.8 % Normal 0-5 [facility] Comment on above: Order Comment: INFUS ION TO DRAW Performed By: #### L 3100.5030, L500.4050, L3100.5040, L100.0100 ####[facility] [address] [place], [address] Erythrocyte distribution width (RBC) [Ratio] 13.6 % Normal 11.6-14.6 [facility] Comment on above: Order Comment: INFUS ION TO DRAW Performed By: #### L 3100.5030, L500.4050, L3100.5040, L100.0100 ####[facility] [address] [place], [address] Hematocrit (Bld) [Volume fraction] 36.9 % Low 37-47 [facility] Comment on above: Order Comment: INFUS ION TO DRAW Performed By: #### L 3100.5030, L500.4050, L3100.5040, L100.0100 ####[facility] [address] [place], [address] Hemoglobin (Bld) [Mass/Vol] 12.0 g/dL Normal 12.0-15.0 [facility] Comment on above: Order Comment: INFUS ION TO DRAW Performed By: #### L 3100.5030, L500.4050, L3100.5040, L100.0100 ####[facility] [address] [place], [address] IG% 0.200 Normal 0.0-0.9 [facility] Comment on above: Order Comment: INFUS ION TO DRAW Result Comment: IG% - Immature Granulocytes (promyelocytes, myelocytes andmetamyelocytes) > 1% indicates that a LEFT SHIFT is Present. Performed By: #### L 3100.5030, L500.4050, L3100.5040, L100.0100 ####[facility] [address] [place], [address] Lymphocytes/100 WBC (Bld) 27.4 % Normal 19-41 [facility] Comment on above: Order Comment: INFUS ION TO DRAW Performed By: #### L 3100.5030, L500.4050, L3100.5040, L100.0100 ####[facility] [address] [place], [address] MCH (RBC) [Entitic mass] 31.2 pg Normal 27.0-32.0 [facility] Comment on above: Order Comment: INFUS ION TO DRAW Performed By: #### L 3100.5030, L500.4050, L3100.5040, L100.0100 ####[facility] [address] [place], [address] MCHC (RBC) [Mass/Vol] 32.5 g/dL Normal 32-36 [facility] Comment on above: Order Comment: INFUS ION TO DRAW Performed By: #### L 3100.5030, L500.4050, L3100.5040, L100.0100 ####[facility] [address] [place], [address] MCV (RBC) [Entitic vol] 95.8 fL Normal 81-99 [facility] Comment on above: Order Comment: INFUS ION TO DRAW Performed By: #### L 3100.5030, L500.4050, L3100.5040, L100.0100 ####[facility] [address] [place], [address] Monocytes/100 WBC (Bld) 8.2 % Normal 0-10 [facility] Comment on above: Order Comment: INFUS ION TO DRAW Performed By: #### L 3100.5030, L500.4050, L3100.5040, L100.0100 ####[facility] [address] [place], [address] Neutrophils/100 WBC (Bld) 63.3 % Normal 47-70 [facility] Comment on above: Order Comment: INFUS ION TO DRAW Performed By: #### L 3100.5030, L500.4050, L3100.5040, L100.0100 ####[facility] [address] [place], [address] Nucleated RBC (Bld) [#/Vol] 0 10*3/uL Normal 0-5 [facility] Comment on above: Order Comment: INFUS ION TO DRAW Performed By: #### L 3100.5030, L500.4050, L3100.5040, L100.0100 ####[facility] [address] [place], [address] Platelet mean volume (Bld) [Entitic vol] 9.5 fL Normal 6.2-12.0 [facility] Comment on above: Order Comment: INFUS ION TO DRAW Performed By: #### L 3100.5030, L500.4050, L3100.5040, L100.0100 ####[facility] [address] [place], [address] Platelets (Bld) [#/Vol] 158 10*3/uL Normal 150-450 [facility] Comment on above: Order Comment: INFUS ION TO DRAW Performed By: #### L 3100.5030, L500.4050, L3100.5040, L100.0100 ####[facility] [address] [place], [address] RBC (Bld) [#/Vol] 3.85 10*6/uL Low 4.2-5.4 [facility] Comment on above: Order Comment: INFUS ION TO DRAW Performed By: #### L 3100.5030, L500.4050, L3100.5040, L100.0100 ####[facility] [address] [place], [address] RDW SD 47.9 fl High 35.1-43.9 [facility] Comment on above: Order Comment: INFUS ION TO DRAW Performed By: #### L 3100.5030, L500.4050, L3100.5040, L100.0100 ####[facility] [address] [place], [address] WBC (Bld) [#/Vol] 8.4 10*3/uL Normal 4.4-11.0 [facility] Comment on above: Order Comment: INFUS ION TO DRAW Performed By: #### L 3100.5030, L500.4050, L3100.5040, L100.0100 ####[facility] [address] [place], [address] Cholesterol measurementOrder ed By: Jesus Varma on 01-15-2024 Cholesterol [Mass/Vol] 130 mg/dL <200 [facility] Comment on above: <200 mg/dL Desirable 200-240 mg/dL Borderline >240 mg/dL High Risk Comprehensive Metabolic Prof ilon 01-15-2024 Albumin [Mass/Vol] 3.7 g/dL Normal 3.2-5.0 [facility] Comment on above: Order Comment: PLEAS E ADD TO BLOOD IN LAB. THANK YOU!! Performed By: #### L 3100.5030, L500.4050, L3100.5040, L100.0100 ####[facility] [address] [place], [address] Albumin/Globulin [Mass ratio] 1.2 {ratio} Normal 0.9-2.4 [facility] Comment on above: Order Comment: PLEAS E ADD TO BLOOD IN LAB. THANK YOU!! Performed By: #### L 3100.5030, L500.4050, L3100.5040, L100.0100 ####[facility] [address] [place], [address] ALK P 53 U/L Normal 45-117 [facility] Comment on above: Order Comment: PLEAS E ADD TO BLOOD IN LAB. THANK YOU!! Performed By: #### L 3100.5030, L500.4050, L3100.5040, L100.0100 ####[facility] [address] [place], [address] ALT [Catalytic activity/Vol] 57 U/L High 13-56 [facility] Comment on above: Order Comment: PLEAS E ADD TO BLOOD IN LAB. THANK YOU!! Performed By: #### L 3100.5030, L500.4050, L3100.5040, L100.0100 ####[facility] [address] [place], [address] AST [Catalytic activity/Vol] 48 U/L High 15-37 [facility] Comment on above: Order Comment: PLEAS E ADD TO BLOOD IN LAB. THANK YOU!! Performed By: #### L 3100.5030, L500.4050, L3100.5040, L100.0100 ####[facility] [address] [place], [address] Bilirubin [Mass/Vol] 0.50 mg/dL Normal 0.20-1.00 [facility] Comment on above: Order Comment: PLEAS E ADD TO BLOOD IN LAB. THANK YOU!! Result Comment: For patients on eltrombopag therapy, use of Dimension [place] TBIL is not recommended. Performed By: #### L 3100.5030, L500.4050, L3100.5040, L100.0100 ####[facility] [address] [place], [address] BUN/CRE 25.6 RATIO High 10-20 [facility] Comment on above: Order Comment: PLEAS E ADD TO BLOOD IN LAB. THANK YOU!! Performed By: #### L 3100.5030, L500.4050, L3100.5040, L100.0100 ####[facility] [address] [place], [address] CA,Total 9.6 mg/dL Normal 8.5-10.1 [facility] Comment on above: Order Comment: PLEAS E ADD TO BLOOD IN LAB. THANK YOU!! Performed By: #### L 3100.5030, L500.4050, L3100.5040, L100.0100 ####[facility] [address] [place], [address] Chloride [Moles/Vol] 109 mmol/L High 98-107 [facility] Comment on above: Order Comment: PLEAS E ADD TO BLOOD IN LAB. THANK YOU!! Performed By: #### L 3100.5030, L500.4050, L3100.5040, L100.0100 ####[facility] [address] [place], [address] CO2 [Moles/Vol] 26.0 mmol/L Normal 21.0-32.0 [facility] Comment on above: Order Comment: PLEAS E ADD TO BLOOD IN LAB. THANK YOU!! Performed By: #### L 3100.5030, L500.4050, L3100.5040, L100.0100 ####[facility] [address] [place], [address] Creatinine [Mass/Vol] 0.78 mg/dL Normal 0.55-1.02 [facility] Comment on above: Order Comment: PLEAS E ADD TO BLOOD IN LAB. THANK YOU!! Result Comment: The validity of the calculated GFR GFRAA in patients over70 years has not been determined. Clinical correlation isessential. Performed By: #### L 3100.5030, L500.4050, L3100.5040, L100.0100 ####[facility] [address] [place], [address] ECRCL 104.09 ml/min Normal [facility] Comment on above: Order Comment: PLEAS E ADD TO BLOOD IN LAB. THANK YOU!! Performed By: #### L 3100.5030, L500.4050, L3100.5040, L100.0100 ####[facility] [address] [place], [address] EST GFR - AA 99 mL/min Normal >60 [facility] Comment on above: Order Comment: PLEAS E ADD TO BLOOD IN LAB. THANK YOU!! Result Comment: Afri can Greek GFR Calc Performed By: #### L 3100.5030, L500.4050, L3100.5040, L100.0100 ####[facility] [address] [place], [address] GAP 8 Normal 5-15 [facility] Comment on above: Order Comment: PLEAS E ADD TO BLOOD IN LAB. THANK YOU!! Performed By: #### L 3100.5030, L500.4050, L3100.5040, L100.0100 ####[facility] [address] [place], [address] GFR/1.73 sq M.predicted among non-blacks MDRD (S/P/Bld) [Vol rate/Area] 81 mL/min/{1.73_m2} Normal >60 [facility] Comment on above: Order Comment: PLEAS E ADD TO BLOOD IN LAB. THANK YOU!! Result Comment: Non- GFR Calc Performed By: #### L 3100.5030, L500.4050, L3100.5040, L100.0100 ####[facility] [address] [place], [address] Globulin (S) [Mass/Vol] 3.1 g/dL Normal 2.2-4.2 [facility] Comment on above: Order Comment: PLEAS E ADD TO BLOOD IN LAB. THANK YOU!! Performed By: #### L 3100.5030, L500.4050, L3100.5040, L100.0100 ####[facility] [address] [place], [address] Glucose [Mass/Vol] 90 mg/dL Normal 74-106 [facility] Comment on above: Order Comment: PLEAS E ADD TO BLOOD IN LAB. THANK YOU!! Performed By: #### L 3100.5030, L500.4050, L3100.5040, L100.0100 ####[facility] [address] [place], [address] Potassium [Moles/Vol] 3.8 mmol/L Normal 3.5-5.1 [facility] Comment on above: Order Comment: PLEAS E ADD TO BLOOD IN LAB. THANK YOU!! Performed By: #### L 3100.5030, L500.4050, L3100.5040, L100.0100 ####[facility] [address] [place], [address] Sodium [Moles/Vol] 143 mmol/L Normal 136-145 [facility] Comment on above: Order Comment: PLEAS E ADD TO BLOOD IN LAB. THANK YOU!! Performed By: #### L 3100.5030, L500.4050, L3100.5040, L100.0100 ####[facility] [address] [place], [address] T PROT 6.8 g/dL Normal 6.4-8.2 [facility] Comment on above: Order Comment: PLEAS E ADD TO BLOOD IN LAB. THANK YOU!! Performed By: #### L 3100.5030, L500.4050, L3100.5040, L100.0100 ####[facility] [address] [place], [address] Urea nitrogen [Mass/Vol] 20 mg/dL High 7-18 [facility] Comment on above: Order Comment: PLEAS E ADD TO BLOOD IN LAB. THANK YOU!! Performed By: #### L 3100.5030, L500.4050, L3100.5040, L100.0100 ####[facility] [address] [place], [address] High density lipoprotein (HD L) measurementOrdered By: Jesus Varma on 01-15-2024 Cholesterol in HDL [Mass/Vol] 51 mg/dL >40 [facility] Comment on above: The drugs N-Acetylcy steine and Metamizole may falsely depress this assay. Reference Range HDL <40 mg/dL Low HDL Cholesterol HDL >or= 60 mg/dL High HDL Cholesterol Lipid Profileon 01-15-2024 Cholesterol [Mass/Vol] 130 mg/dL Normal 200 [facility] Comment on above: Order Comment: ORDERED LIVER LIPIDPA.[facility] ORDERED LIPID, TSH Result Comment: <200 mg/dL Desirable 200-240 mg/dL Borderline >240 mg/dL High Risk Performed By: #### L 500.4100, L500.3400 ####[facility] [address] [place], [address] Cholesterol in HDL [Mass/Vol] 51 mg/dL Normal [facility] Comment on above: Order Comment: [facility]IPID, TSH Result Comment: The drugs N-Acetylcysteine and Metamizole may falselydepress this assay. Reference Range HDL <40 mg/dL Low HDL Cholesterol HDL >or= 60 mg/dL High HDL Cholesterol Performed By: #### L 500.4100, L500.3400 ####[facility] [address] [place], [address] Cholesterol in LDL [Mass/Vol] 49 mg/dL Normal 0-130 [facility] Comment on above: Order Comment: ORDERED LIVER LIPIDPA.[facility] ORDERED LIPID, TSH Performed By: #### L 500.4100, L500.3400 ####[facility] [address] [place], [address] Cholesterol in VLDL [Mass/Vol] 30 mg/dL Normal 5-40 [facility] Comment on above: Order Comment: ORDERED LIVER LIPIDPA.[facility] ORDERED LIPID, TSH Performed By: #### L 500.4100, L500.3400 ####[facility] [address] [place], [address] Triglyceride [Mass/Vol] 148 mg/dL Normal [facility] Comment on above: Order Comment: ORDERED LIVER LIPIDPA.[facility] ORDERED LIPID, TSH Result Comment: The drugs N-Acetylcysteine and Metamizole may falselydepress this assay.Serum Triglycerides Reference Interval Normal <150 mg/dL Borderline high 150 - 199 mg/dL High 200 - 499 mg/dL Very High > or = 500 mg/dL Performed By: #### L 500.4100, L500.3400 ####[facility] [address] [place], [address] Liver Profileon 01-15-2024 Albumin [Mass/Vol] 3.7 g/dL Normal 3.2-5.0 [facility] Comment on above: Order Comment: ORDERED LIVER LIPIDPA.[facility] ORDERED LIPID, TSH Performed By: #### L 500.4100, L500.3400 ####[facility] [address] [place], [address] ALK P 53 U/L Normal 45-117 [facility] Comment on above: Order Comment: ORDERED LIVER LIPIDPA.[facility] ORDERED LIPID, TSH Performed By: #### L 500.4100, L500.3400 ####[facility] [address] [place], [address] ALT [Catalytic activity/Vol] 61 U/L High 13-56 [facility] Comment on above: Order Comment: ORDERED LIVER LIPIDPA.[facility] ORDERED LIPID, TSH Performed By: #### L 500.4100, L500.3400 ####[facility] [address] [place], [address] AST [Catalytic activity/Vol] 50 U/L High 15-37 [facility] Comment on above: Order Comment: ORDERED LIVER LIPIDPA.[facility] ORDERED LIPID, TSH Performed By: #### L 500.4100, L500.3400 ####[facility] [address] [place], [address] Bilirubin [Mass/Vol] 0.50 mg/dL Normal 0.20-1.00 [facility] Comment on above: Order Comment: ORDERED LIVER LIPIDPA.[facility] ORDERED LIPID, TSH Result Comment: For patients on eltrombopag therapy, use of Dimension [place] TBIL is not recommended. Performed By: #### L 500.4100, L500.3400 ####[facility] [address] [place], [address] Bilirubin.direct [Mass/Vol] 0.15 mg/dL Normal 0.00-0.30 [facility] Comment on above: Order Comment: ORDERED LIVER LIPIDPA.[facility] ORDERED LIPID, TSH Performed By: #### L 500.4100, L500.3400 ####[facility] [address] [place], [address] Globulin (S) [Mass/Vol] 3.2 g/dL Normal 2.2-4.2 [facility] Comment on above: Order Comment: ORDERED LIVER LIPIDPA.[facility] ORDERED LIPID, TSH Performed By: #### L 500.4100, L500.3400 ####[facility] [address] [place], [address] T PROT 6.9 g/dL Normal 6.4-8.2 [facility] Comment on above: Order Comment: ORDERED LIVER LIPIDPA.[facility] ORDERED LIPID, TSH Performed By: #### L 500.4100, L500.3400 ####[facility] [address] [place], [place], [address] Low density lipoprotein (LDL ) cholesterol measurementOrdered By: Jesus Varma on 01-15-2024 Cholesterol in LDL [Mass/Vol] 49 mg/dL 0-130 [facility] Oncology Visit Reporton 08 Oncology Visit Report Normal [facility] Serum or plasma thyroid stim ulating hormone (TSH) measurement (units/volume)Ordered By: Blue Alicia on 01-15-2024 TSH Qn 1.50 uIU/mL 0.358-3.74 [facility] TSH QnOrdered By: Blue poon on 01-15-2024 Thyroid Stimulating Hormone (TSH) 1.50 uIU/mL 0.358-3.74 [facility] Thyroid Stim Hormone (TSH)on 01-15-2024 TSH 1.50 uIU/mL Normal 0.358-3.74 [facility] Comment on above: Order Comment: ORDERED LIVER LIPIDPA.JOSE ORDERED LIPID, TSH Performed By: #### L 501.9520 ####[facility] [address] [place], [place], [id number] Triglycerides measurementOrd ered By: Jesus Varma on 01-15-2024 Triglyceride [Mass/Vol] 148 mg/dL <199 [facility] Comment on above: The drugs N-Acetylcy steine and Metamizole may falsely depress this assay.Serum Triglycerides Reference Interval Normal <150 mg/dL Borderline high 150 - 199 mg/dL High 200 - 499 mg/dL Very High > or = 500 mg/dL Very low density lipoprotein (VLDL) cholesterol measurementOrdered By: Jesus Varma on 01-15-2024 Very low density lipoprotein (VLDL) cholesterol measurement 30 mg/dL 5-40 [facility] VLDL Cholesterol 30 mg/dL 5-40 [facility] Internal Medicine Office Vis iton 01-09-2024 Internal Medicine Office Visit Normal [facility] Oncology Visit Reporton 08 Oncology Visit Report Normal [facility] PET/CT Tumor WB Subson 01-05 PET/CT Tumor WB Subs Normal [facility] CA 15-3on 12-26-2023 CA 15-3 38.6 U/mL Abnormal 0.0-25.0 [facility] Comment on above: Result Comment: [employer] Electrochemiluminescence Immunoassay(ECLIA)Values obtained with different assay methods or kits cannotbe used interchangeably. Results cannot be interpreted asabsolute evidence of the presence or absence of malignantdisease.Performed at: [address] [id number] Director: Ervin Hitchcock PhD, Phone: [phone] Performed By: #### L 3100.5030, L3100.5040 ####[facility] [address] [place], [address] CA 27.29on 12-26-2023 CA 27.29 39.5 U/mL Abnormal 0.0-38.6 [facility] Comment on above: Result Comment: [employer] Immunochemiluminometric Methodology (ICMA)Values obtained with different assay methods or kits cannotbe used interchangeably. Results cannot be interpreted asabsolute evidence of the presence or absence of malignantdisease. Performed By: #### L 3100.5030, L3100.5040 ####[facility] [address] [place], [address] CBC W/Diff, Automatedon 07- Absolute Lymph 2.73 X10 3/uL Normal 0.83-4.51 [facility] Comment on above: Performed By: #### L 100.0100, L504.2610, L500.4050 ####[facility] [address] [place], [address] Absolute Neut 5.2 X10 3/uL Normal 2.0-7.7 [facility] Comment on above: Performed By: #### L 100.0100, L504.2610, L500.4050 ####[facility] [address] [place], [address] Basophils/100 WBC (Bld) 0.2 % Normal 0-1 [facility] Comment on above: Performed By: #### L 100.0100, L504.2610, L500.4050 ####[facility] [address] [place], [address] Eosinophils/100 WBC (Bld) 0.9 % Normal 0-5 [facility] Comment on above: Performed By: #### L 100.0100, L504.2610, L500.4050 ####[facility] [address] [place], [address] Erythrocyte distribution width (RBC) [Ratio] 13.3 % Normal 11.6-14.6 [facility] Comment on above: Performed By: #### L 100.0100, L504.2610, L500.4050 ####[facility] [address] [place], [address] Hematocrit (Bld) [Volume fraction] 40.2 % Normal 37-47 [facility] Comment on above: Performed By: #### L 100.0100, L504.2610, L500.4050 ####[facility] [address] [place], [address] Hemoglobin (Bld) [Mass/Vol] 13.2 g/dL Normal 12.0-15.0 [facility] Comment on above: Performed By: #### L 100.0100, L504.2610, L500.4050 ####[facility] [address] [place], [address] IG% 0.500 Normal 0.0-0.9 [facility] Comment on above: Result Comment: IG% - Immature Granulocytes (promyelocytes, myelocytes andmetamyelocytes) > 1% indicates that a LEFT SHIFT is Present. Performed By: #### L 100.0100, L504.2610, L500.4050 ####[facility] [address] [place], [address] Lymphocytes/100 WBC (Bld) 31.3 % Normal 19-41 [facility] Comment on above: Performed By: #### L 100.0100, L504.2610, L500.4050 ####[facility] [address] [place], [address] MCH (RBC) [Entitic mass] 30.9 pg Normal 27.0-32.0 [facility] Comment on above: Performed By: #### L 100.0100, L504.2610, L500.4050 ####[facility] [address] [place], [address] MCHC (RBC) [Mass/Vol] 32.8 g/dL Normal 32-36 [facility] Comment on above: Performed By: #### L 100.0100, L504.2610, L500.4050 ####[facility] [address] [place], [address] MCV (RBC) [Entitic vol] 94.1 fL Normal 81-99 [facility] Comment on above: Performed By: #### L 100.0100, L504.2610, L500.4050 ####[facility] [address] [place], [address] Monocytes/100 WBC (Bld) 7.2 % Normal 0-10 [facility] Comment on above: Performed By: #### L 100.0100, L504.2610, L500.4050 ####[facility] [address] [place], [address] Neutrophils/100 WBC (Bld) 59.9 % Normal 47-70 [facility] Comment on above: Performed By: #### L 100.0100, L504.2610, L500.4050 ####[facility] [address] [place], [address] Nucleated RBC (Bld) [#/Vol] 0 10*3/uL Normal 0-5 [facility] Comment on above: Performed By: #### L 100.0100, L504.2610, L500.4050 ####[facility] [address] [place], [address] Platelet mean volume (Bld) [Entitic vol] 9.0 fL Normal 6.2-12.0 [facility] Comment on above: Performed By: #### L 100.0100, L504.2610, L500.4050 ####[facility] [address] [place], [address] Platelets (Bld) [#/Vol] 196 10*3/uL Normal 150-450 [facility] Comment on above: Performed By: #### L 100.0100, L504.2610, L500.4050 ####[facility] [address] [place], [address] RBC (Bld) [#/Vol] 4.27 10*6/uL Normal 4.2-5.4 [facility] Comment on above: Performed By: #### L 100.0100, L504.2610, L500.4050 ####[facility] [address] [place], [address] RDW SD 45.5 fl High 35.1-43.9 [facility] Comment on above: Performed By: #### L 100.0100, L504.2610, L500.4050 ####[facility] [address] [place], [address] WBC (Bld) [#/Vol] 8.7 10*3/uL Normal 4.4-11.0 [facility] Comment on above: Performed By: #### L 100.0100, L504.2610, L500.4050 ####[facility] [address] [place], [address] Comprehensive Metabolic Prof nina 12-25-2023 Albumin [Mass/Vol] 3.6 g/dL Normal 3.2-5.0 [facility] Comment on above: Order Comment: 1 Performed By: #### L 100.0100, L504.2610, L500.4050 ####[facility] [address] [place], [address] Albumin/Globulin [Mass ratio] 1.1 {ratio} Normal 0.9-2.4 [facility] Comment on above: Order Comment: 1 Performed By: #### L 100.0100, L504.2610, L500.4050 ####[facility] [address], [address] ALK P 46 U/L Normal 45-117 [facility] Comment on above: Order Comment: 1 Performed By: #### L 100.0100, L504.2610, L500.4050 ####[facility] [address], [address] ALT [Catalytic activity/Vol] 54 U/L Normal 13-56 [facility] Comment on above: Order Comment: 1 Performed By: #### L 100.0100, L504.2610, L500.4050 ####[facility] [address] [place], [address] AST [Catalytic activity/Vol] 45 U/L High 15-37 [facility] Comment on above: Order Comment: 1 Performed By: #### L 100.0100, L504.2610, L500.4050 ####[facility] [address] [place], [address] Bilirubin [Mass/Vol] 0.20 mg/dL Normal 0.20-1.00 [facility] Comment on above: Order Comment: 1 Result Comment: For patients on eltrombopag therapy, use of Dimension [place] TBIL is not recommended. Performed By: #### L 100.0100, L504.2610, L500.4050 ####[facility] [address] [place], [address] BUN/CRE 24.6 RATIO High 10-20 [facility] Comment on above: Order Comment: 1 Performed By: #### L 100.0100, L504.2610, L500.4050 ####[facility] [address] [place], [address] CA,Total 10.1 mg/dL Normal 8.5-10.1 [facility] Comment on above: Order Comment: 1 Performed By: #### L 100.0100, L504.2610, L500.4050 ####[facility] [address] [place], [address] Chloride [Moles/Vol] 106 mmol/L Normal 98-107 [facility] Comment on above: Order Comment: 1 Performed By: #### L 100.0100, L504.2610, L500.4050 ####[facility] [address] [place], [address] CO2 [Moles/Vol] 28.0 mmol/L Normal 21.0-32.0 [facility] Comment on above: Order Comment: 1 Performed By: #### L 100.0100, L504.2610, L500.4050 ####[facility] [address] [place], [address] Creatinine [Mass/Vol] 0.73 mg/dL Normal 0.55-1.02 [facility] Comment on above: Order Comment: 1 Result Comment: The validity of the calculated GFR GFRAA in patients over70 years has not been determined. Clinical correlation isessential. Performed By: #### L 100.0100, L504.2610, L500.4050 ####[facility] [address] [place], [address] ECRCL 111.22 ml/min Normal [facility] Comment on above: Order Comment: 1 Performed By: #### L 100.0100, L504.2610, L500.4050 ####[facility] [address] [place], [address] EST GFR - AA 106 mL/min Normal >60 [facility] Comment on above: Order Comment: 1 Result Comment: Afri can Greek GFR Calc Performed By: #### L 100.0100, L504.2610, L500.4050 ####[facility] [address] [place], [address] GAP 7 Normal 5-15 [facility] Comment on above: Order Comment: 1 Performed By: #### L 100.0100, L504.2610, L500.4050 ####[facility] [address] [place], [address] GFR/1.73 sq M.predicted among non-blacks MDRD (S/P/Bld) [Vol rate/Area] 88 mL/min/{1.73_m2} Normal >60 [facility] Comment on above: Order Comment: 1 Result Comment: Non- GFR Calc Performed By: #### L 100.0100, L504.2610, L500.4050 ####[facility] [address] [place], [address] Globulin (S) [Mass/Vol] 3.2 g/dL Normal 2.2-4.2 [facility] Comment on above: Order Comment: 1 Performed By: #### L 100.0100, L504.2610, L500.4050 ####[facility] [address] [place], [address] Glucose [Mass/Vol] 101 mg/dL Normal 74-106 [facility] Comment on above: Order Comment: 1 Result Comment: Fast ing Glucose result from 100 to 125 mg/dLsuggests IMPAIRED HOMEOSTASIS per A.D.A. criteria. Performed By: #### L 100.0100, L504.2610, L500.4050 ####[facility] [address] [place], [address] Potassium [Moles/Vol] 3.7 mmol/L Normal 3.5-5.1 [facility] Comment on above: Order Comment: 1 Performed By: #### L 100.0100, L504.2610, L500.4050 ####[facility] [address] [place], [address] Sodium [Moles/Vol] 141 mmol/L Normal 136-145 [facility] Comment on above: Order Comment: 1 Performed By: #### L 100.0100, L504.2610, L500.4050 ####[facility] [address] [place], [address] T PROT 6.8 g/dL Normal 6.4-8.2 [facility] Comment on above: Order Comment: 1 Performed By: #### L 100.0100, L504.2610, L500.4050 ####[facility] [address] [place], [address] Urea nitrogen [Mass/Vol] 18 mg/dL Normal 7-18 [facility] Comment on above: Order Comment: 1 Performed By: #### L 100.0100, L504.2610, L500.4050 ####[facility] [address] [place], [address] LDHon 12-25-2023 LDH 184 U/L Normal 84-246 [facility] Comment on above: Order Comment: 1 Performed By: #### L 100.0100, L504.2610, L500.4050 ####[facility] [address] [place], [address] Oncology Visit Reporton 12-07 Oncology Visit Report Normal [facility] Breast Complete Bilateralon 12-08-2023 Breast Complete Bilateral Normal [facility] CA 15-3on 12-05-2023 CA 15-3 37.3 U/mL Abnormal 0.0-25.0 [facility] Comment on above: Result Comment: [employer] Electrochemiluminescence Immunoassay(ECLIA)Values obtained with different assay methods or kits cannotbe used interchangeably. Results cannot be interpreted asabsolute evidence of the presence or absence of malignantdisease.Performed at: [address] [id number] Director: Ervin Hitchcock PhD, Phone: [phone] Performed By: #### L 3100.5030, L3100.5040, L100.0100, L500.4050 ####[facility] [address] [place], [address] CA 27.29on 12-05-2023 CA 27.29 46.6 U/mL Abnormal 0.0-38.6 [facility] Comment on above: Result Comment: [employer] Immunochemiluminometric Methodology (ICMA)Values obtained with different assay methods or kits cannotbe used interchangeably. Results cannot be interpreted asabsolute evidence of the presence or absence of malignantdisease. Performed By: #### L 3100.5030, L3100.5040, L100.0100, L500.4050 ####[facility] [address] [place], [place], [address] CBC W/Diff, Automatedon 11-08 Absolute Lymph 2.93 X10 3/uL Normal 0.83-4.51 [facility] Comment on above: Performed By: #### L 3100.5030, L3100.5040, L100.0100, L500.4050 ####[facility] [address] [place], [address] Absolute Neut 7.0 X10 3/uL Normal 2.0-7.7 [facility] Comment on above: Performed By: #### L 3100.5030, L3100.5040, L100.0100, L500.4050 ####[facility] [address] [place], [address] Basophils/100 WBC (Bld) 0.2 % Normal 0-1 [facility] Comment on above: Performed By: #### L 3100.5030, L3100.5040, L100.0100, L500.4050 ####[facility] [address] [place], [address] Eosinophils/100 WBC (Bld) 0.6 % Normal 0-5 [facility] Comment on above: Performed By: #### L 3100.5030, L3100.5040, L100.0100, L500.4050 ####[facility] [address] [place], [address] Erythrocyte distribution width (RBC) [Ratio] 13.4 % Normal 11.6-14.6 [facility] Comment on above: Performed By: #### L 3100.5030, L3100.5040, L100.0100, L500.4050 ####[facility] [address] [place], [address] Hematocrit (Bld) [Volume fraction] 41.3 % Normal 37-47 [facility] Comment on above: Performed By: #### L 3100.5030, L3100.5040, L100.0100, L500.4050 ####[facility] [address] [place], [address] Hemoglobin (Bld) [Mass/Vol] 13.3 g/dL Normal 12.0-15.0 [facility] Comment on above: Performed By: #### L 3100.5030, L3100.5040, L100.0100, L500.4050 ####[facility] [address] [place], [address] IG% 0.300 Normal 0.0-0.9 [facility] Comment on above: Result Comment: IG% - Immature Granulocytes (promyelocytes, myelocytes andmetamyelocytes) > 1% indicates that a LEFT SHIFT is Present. Performed By: #### L 3100.5030, L3100.5040, L100.0100, L500.4050 ####[facility] [address] [place], [address] Lymphocytes/100 WBC (Bld) 27.0 % Normal 19-41 [facility] Comment on above: Performed By: #### L 3100.5030, L3100.5040, L100.0100, L500.4050 ####[facility] [address] [place], [address] MCH (RBC) [Entitic mass] 30.8 pg Normal 27.0-32.0 [facility] Comment on above: Performed By: #### L 3100.5030, L3100.5040, L100.0100, L500.4050 ####[facility] [address] [place], [address] MCHC (RBC) [Mass/Vol] 32.2 g/dL Normal 32-36 [facility] Comment on above: Performed By: #### L 3100.5030, L3100.5040, L100.0100, L500.4050 ####[facility] [address] [place], [address] MCV (RBC) [Entitic vol] 95.6 fL Normal 81-99 [facility] Comment on above: Performed By: #### L 3100.5030, L3100.5040, L100.0100, L500.4050 ####[facility] [address] [place], [address] Monocytes/100 WBC (Bld) 7.2 % Normal 0-10 [facility] Comment on above: Performed By: #### L 3100.5030, L3100.5040, L100.0100, L500.4050 ####[facility] [address] [place], [address] Neutrophils/100 WBC (Bld) 64.7 % Normal 47-70 [facility] Comment on above: Performed By: #### L 3100.5030, L3100.5040, L100.0100, L500.4050 ####[facility] [address] [place], [address] Nucleated RBC (Bld) [#/Vol] 0 10*3/uL Normal 0-5 [facility] Comment on above: Performed By: #### L 3100.5030, L3100.5040, L100.0100, L500.4050 ####[facility] [address] [place], [address] Platelet mean volume (Bld) [Entitic vol] 9.0 fL Normal 6.2-12.0 [facility] Comment on above: Performed By: #### L 3100.5030, L3100.5040, L100.0100, L500.4050 ####[facility] [address] [place], [address] Platelets (Bld) [#/Vol] 210 10*3/uL Normal 150-450 [facility] Comment on above: Performed By: #### L 3100.5030, L3100.5040, L100.0100, L500.4050 ####[facility] [address] [place], [address] RBC (Bld) [#/Vol] 4.32 10*6/uL Normal 4.2-5.4 [facility] Comment on above: Performed By: #### L 3100.5030, L3100.5040, L100.0100, L500.4050 ####[facility] [address] [place], [address] RDW SD 47.4 fl High 35.1-43.9 [facility] Comment on above: Performed By: #### L 3100.5030, L3100.5040, L100.0100, L500.4050 ####[facility] [address] [place], [address] WBC (Bld) [#/Vol] 10.9 10*3/uL Normal 4.4-11.0 [facility] Comment on above: Performed By: #### L 3100.5030, L3100.5040, L100.0100, L500.4050 ####[facility] [address] [place], [address] Comprehensive Metabolic Prof akon 12-04-2023 Albumin [Mass/Vol] 3.8 g/dL Normal 3.2-5.0 [facility] Comment on above: Performed By: #### L 3100.5030, L3100.5040, L100.0100, L500.4050 ####[facility] [address] [place], [address] Albumin/Globulin [Mass ratio] 1.2 {ratio} Normal 0.9-2.4 [facility] Comment on above: Performed By: #### L 3100.5030, L3100.5040, L100.0100, L500.4050 ####[facility] [address] [place], [address] ALK P 53 U/L Normal 45-117 [facility] Comment on above: Performed By: #### L 3100.5030, L3100.5040, L100.0100, L500.4050 ####[facility] [address] [place], [address] ALT [Catalytic activity/Vol] 44 U/L Normal 13-56 [facility] Comment on above: Performed By: #### L 3100.5030, L3100.5040, L100.0100, L500.4050 ####[facility] [address] [place], [address] AST [Catalytic activity/Vol] 31 U/L Normal 15-37 [facility] Comment on above: Performed By: #### L 3100.5030, L3100.5040, L100.0100, L500.4050 ####[facility] [address] [place], [address] Bilirubin [Mass/Vol] 0.50 mg/dL Normal 0.20-1.00 [facility] Comment on above: Result Comment: For patients on eltrombopag therapy, use of Dimension [place] TBIL is not recommended. Performed By: #### L 3100.5030, L3100.5040, L100.0100, L500.4050 ####[facility] [address] [place], [address] BUN/CRE 19.5 RATIO Normal 10-20 [facility] Comment on above: Performed By: #### L 3100.5030, L3100.5040, L100.0100, L500.4050 ####[facility] [address] [place], [address] CA,Total 10.0 mg/dL Normal 8.5-10.1 [facility] Comment on above: Performed By: #### L 3100.5030, L3100.5040, L100.0100, L500.4050 ####[facility] [address] [place], [address] Chloride [Moles/Vol] 106 mmol/L Normal 98-107 [facility] Comment on above: Performed By: #### L 3100.5030, L3100.5040, L100.0100, L500.4050 ####[facility] [address] [place], [address] CO2 [Moles/Vol] 28.0 mmol/L Normal 21.0-32.0 [facility] Comment on above: Performed By: #### L 3100.5030, L3100.5040, L100.0100, L500.4050 ####[facility] [address] [place], [address] Creatinine [Mass/Vol] 0.87 mg/dL Normal 0.55-1.02 [facility] Comment on above: Result Comment: The validity of the calculated GFR GFRAA in patients over70 years has not been determined. Clinical correlation isessential. Performed By: #### L 3100.5030, L3100.5040, L100.0100, L500.4050 ####[facility] [address] [place], [address] ECRCL 92.69 ml/min Normal [facility] Comment on above: Performed By: #### L 3100.5030, L3100.5040, L100.0100, L500.4050 ####[facility] [address] [place], [address] EST GFR - AA 87 mL/min Normal >60 [facility] Comment on above: Result Comment: Afri can Greek GFR Calc Performed By: #### L 3100.5030, L3100.5040, L100.0100, L500.4050 ####[facility] [address] [place], [address] GAP 6 Normal 5-15 [facility] Comment on above: Performed By: #### L 3100.5030, L3100.5040, L100.0100, L500.4050 ####[facility] [address] [place], [address] GFR/1.73 sq M.predicted among non-blacks MDRD (S/P/Bld) [Vol rate/Area] 72 mL/min/{1.73_m2} Normal >60 [facility] Comment on above: Result Comment: Non- GFR Calc Performed By: #### L 3100.5030, L3100.5040, L100.0100, L500.4050 ####[facility] [address] [place], [address] Globulin (S) [Mass/Vol] 3.2 g/dL Normal 2.2-4.2 [facility] Comment on above: Performed By: #### L 3100.5030, L3100.5040, L100.0100, L500.4050 ####[facility] [address] [place], [address] Glucose [Mass/Vol] 106 mg/dL Normal 74-106 [facility] Comment on above: Result Comment: Fast ing Glucose result from 100 to 125 mg/dLsuggests IMPAIRED HOMEOSTASIS per A.D.A. criteria. Performed By: #### L 3100.5030, L3100.5040, L100.0100, L500.4050 ####[facility] [address] [place], [address] Potassium [Moles/Vol] 3.8 mmol/L Normal 3.5-5.1 [facility] Comment on above: Performed By: #### L 3100.5030, L3100.5040, L100.0100, L500.4050 ####[facility] [address] [place], [address] Sodium [Moles/Vol] 140 mmol/L Normal 136-145 [facility] Comment on above: Performed By: #### L 3100.5030, L3100.5040, L100.0100, L500.4050 ####[facility] [address] [place], [address] T PROT 7.0 g/dL Normal 6.4-8.2 [facility] Comment on above: Performed By: #### L 3100.5030, L3100.5040, L100.0100, L500.4050 ####[facility] [address] [place], [address] Urea nitrogen [Mass/Vol] 17 mg/dL Normal 7-18 [facility] Comment on above: Performed By: #### L 3100.5030, L3100.5040, L100.0100, L500.4050 ####[facility] [address] [place], [address] Oncology Visit Reporton 11-08 Oncology Visit Report Normal [facility] Office Visiton 10-28-2023 Follow-up visit [id number] Tania Russell 1970 F Date Provider Department Center 10/28/2023 [id number]-UTOZCIFGLADIS RAUSCH [facility] OB [facility] OB Offi Family History Problem Relation Age of Onset Diabetes Mother Stroke Paternal Grandmother Colon cancer Maternal Grandfather Family Status - Relation Status Age at Mother Alive Paternal Grandmother Maternal Grandfather Father Level of Service:52133 CO POSTOP FOLLOW UP VISIT RELATED TO ORIGINAL PX Reason for Visit and Comments: Post-op Visit [639] - D&C Normal [facility] Progress Noteon 10-28-2023 Progress Note Lissett Russell 53 y.o. HPI Pt is s/p Hysteroscopy w/ D&C/Polypectomy. Pathology is benign. Pt w/o complaints. BP 133/82 Pulse 82 Wt 228 lb (103 kg) LMP 04/12/2023 (Exact Date) BMI 33.67 kg/m? Review of Systems Constitutional: Negative for fever. Gastrointestinal: Negative for constipation, diarrhea, nausea and vomiting. Genitourinary: Negative for difficulty urinating, flank pain and vaginal bleeding. Objective: Physical Exam Constitutional: She is oriented to person, place, and time. She appears well-developed and well-nourished. Abdominal: Soft. There is no tenderness. Neurological: She is alert and oriented to person, place, and time. Skin: Skin is warm and dry. Psychiatric: She has a normal mood and affect. Her behavior is normal. Assessment: Diagnosis Plan 1. Follow-up surgery care Plan: 1. Pt may resume normal activity with no restrictions. Pt to call w/ any further bleeding. Normal [facility] HCG ( test) Ql (U)o n 10-10-2023 Beta HCG ( test) Ql (U) [id number] [facility] NEGATIVE QC Pass [facility] POSITIVE QC Pass [facility] Preg Test, Ur Negative Negative [facility] Radiology Study observation (narrative) [facility] Nursing Noteon 10-10-2023 Nursing Note Patient arrived on u nit. Name and date verified. Attached to monitors. Vital signs stable. 1122 - family at bedside 1135 - pt ambulated to bathroom with steady gait. Voided without complication. 1145 - Patient is A&O x4. States pain is at a tolerable level. Denies dizziness and nausea. IV removed without complication. All belongings returned and accounted for. DC instructions gone over with patient and family. All questions answered. Verbalized understanding. Normal [facility] Op Noteon 10-10-2023 Op Note Pre-Op Diagnosis: PM B, Endometrial Polyp Post-Op Diagnosis: Same Operative Procedure: Operative Hysteroscopy w/ D&C, Myosure Polypectomy Surgeon: Dr. Rausch Roof Tiler: None Findings: Polyp noted on the posterior wall of the uterus, clear vesicles noted on the left and right lateral sidewalls. Specimen: Polyp, EMC Serna: None EBL: Negligable Fluids: 300cc LR Anesthesia: General Saline Def: 170cc The patient was brought back tot he operating room, placed in dorsal lithotomy position, prepped and draped in the normal sterile fashion. A weighted speculum was placed into the vagina. A almodovar retractor was placed anteriorly to allow visualization of the cervix. The cervix was grasped w/ a single tooth tenaculum and progressively dilated to allow placement of a Myosure hysteroscope. Saline infusion was begun. Using a Myosure device the polyps and vesicles noted above were removed. A sharp curettage was then performed . The procedure was deemed compete. The single tooth tenaculum was removed from the cervix. The tenaculum sites were hemostatic . All instrumentation was removed from the vagina. Sponges and instruments were counted times two and noted to be correct. The patient was awakened from anesthesia and brought to the recovery room in stable condition. Normal [facility] PREPROCINSon 10-03-2023 PREPROCINS Medication List Accurate as of October 03, 2023 4:13 PM. Always use your most recent med list. BIOTIN PO Medication Adjustments for Surgery: Hold morning of surgery furosemide 40 MG tablet Commonly known as: Lasix Medication Adjustments for Surgery: Hold morning of surgery Kanjinti 420 MG Generic drug: trastuzumab-anns multivitamin tablet Medication Adjustments for Surgery: Hold morning of surgery pertuzumab 420 MG/14ML injection Commonly known as: Perjeta simvastatin 20 MG tablet Commonly known as: Zocor Medication Adjustments for Surgery: Take night before surgery tamoxifen 20 MG tablet Commonly known as: Nolvadex Notes to patient: Defer to prescribing provider/oncologist for instructions prior to procedure VITAMIN B-6 PO Medication Adjustments for Surgery: Hold morning of surgery Additional Instructions: You may take Tylenol for pain. NO Motrin, ibuprofen or Advil for 24 hours prior to surgery or longer if instructed by your surgeon. NO Aleve or Naprosyn for 5 days prior to surgery or longer if instructed by your surgeon. DO NOT take aspirin or aspirin containing products for 5 days before surgery, or longer if instructed by your surgeon. Follow any instructions given to you by Dr. ROBERT Dawson with an antibacterial soap such as Dial or Safeguard before coming to the hospital. No makeup, lotion, powder, deodorant or body spays. No hair products. Remove all jewelry and leave it at home. Wear loose comfortable clothing to go home in. You may brush your teeth morning of surgery. Do not wear contacts day of surgery. No marijuana (THC), smoking or alcohol for 24 hours prior to surgery. Please arrange for a responsible adult to drive you home after your surgery and that there is a responsible adult with you for 24 hours post discharge. If you have specific questions, please call your surgeon. You will receive a call the day before your surgery to verify your arrival time and date. You will be asked to arrive at least two hours prior to your scheduled surgery time. Please bring your [facility] Surgical folder and medication list with you day of surgery. We encourage you to write down any questions you may have for the surgeon, anesthesiologist, or other members of the surgical team and bring it with you the day of surgery. Please bring photo ID and insurance information. You may use the [employer] parking located at the main entrance on [address] [facility] and take the H elevator to the first floor for same day surgery. Take a left after exiting the elevator and check in at the desk. You may use the parking in the Main deck. Take the level one bridge to the H building and follow the signs for same day surgery. Check in at the desk. [facility] Progress Noteon 10-03-2023 Progress Note [facility] PLANNI LOPEZ Russell : 1970 Primary Care Physician: MAIDA KIM The patient and/or family/surrogate voluntarily agreed to participate in ACP services. Patient?s cognitive capacity: intact Code Status: [x] [FULL CODE - Continue all advanced life support: CPR,intubation,invasive procedures] [_] [DNR-CCA - DO NOT do CPR, intubation] [_] [DNR-CUSTOM SHOE DESIGNER AND MAKER - Comfort care only] [_] DNR form [was/was not] signed Summary of discussion: The patient health care POA/ surrogate is the following: has not assigned as of today. [Condition that instigated the ACP on this DOS, relevant PMH, functional status, goals of care, and whom this was discussed with including names and relationship to the patient, and any relevant advance care documentation discussion] I answered all the patient/family questions that I could within the range and scope of the current medical situation. We discussed the medical conditions, risks, benefits, outcomes, and goals of care at this time for the patient's medical issues at hand in the face of the patient's chronic issues and current presentation. Total time spent: 2 minutes were spent discussing the patient's resuscitation status, advance care planning, and end of life care, with patient and/or family/surrogate. 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 PAT on 10/03/2023 @ 330pm. [facility] Progress Noteon 09-02-2023 Progress Note Patient seeing me to day per Dr. Goldberg to discuss proceeding with hysteroscopy and D&C. Patient has a history of breast cancer had chemotherapy and is currently on tamoxifen. She is also receiving immunotherapy every 21 days. She is unsure of her receptor testing. States had bleeding in Nov and has had none since that time. On ultrasound there is a 1 cm intrauterine polyp noted. Blood flow was noted within the polyp BP 120/77 Pulse 88 Ht 5' 8.5 (1.74 m) Wt 225 lb (102 kg) LMP 04/12/2023 (Exact Date) BMI 33.71 kg/m? Past Medical History: Diagnosis Date Breast cancer (HCC) High cholesterol simvastatin Minor injury of knee R knee (torn miniscus & stress fracture) No past surgical history on file. Assessment: Diagnosis Plan 1. Postmenopausal bleeding 2. Endometrial polyp Plan: Will proceed with hysteroscopy as well as D&C. As a #1. Based on clinical findings, a hysteroscopy/D&C is recommended for further evaluation. The procedure was discussed with the patient in detail. She is aware that the procedure involves visualizing the endometrium with a camera and that tissue will be obtained for pathology. Risks associated with the procedure include, but are not limited to, anesthetic risks, bleeding, infection, and the risk of uterine perforation, which can be associated with bowel and bladder injury. The patient was given the opportunity to ask questions and all questions were answered today to the best of my ability. [facility] Office Visiton 08-12-2023 Follow-up visit [id number] Tania Russell 1970 F Date Provider Department Center 08/12/2023 [id number]-EXGGUTLANIKKO GOLDBERG V [facility] Offi Family History Problem Relation Age of Onset Diabetes Mother Stroke Paternal Grandmother Colon cancer Maternal Grandfather Family Status - Relation Status Age at Mother Alive Paternal Grandmother Maternal Grandfather Father Level of Service:78572 CO OFFICE/OUTPATIENT ESTABLISHED LOW MDM 20 MIN Reason for Visit and Comments: Follow-up [855233] - Review [facility] Progress Noteon 08-12-2023 Progress Note Chief Complaint Patient presents with Follow-up Review [facility] Patient's last menstrual period was 04/12/2023 (exact date). History: Past Medical History: Diagnosis Date High cholesterol simvastatin Minor injury of knee R knee (torn miniscus & stress fracture) No past surgical history on file. Family History Problem Relation Name Age of Onset Diabetes Mother Stroke Paternal Grandmother Colon cancer Maternal Grandfather Social History Tobacco Use Smoking status: Never Smokeless tobacco: Never Substance Use Topics Alcohol use: Yes Drug use: No Allergies: No Known Allergies Medications: Current Outpatient Medications on File Prior to Visit Medication Sig Dispense Refill furosemide (Lasix) 40 MG tablet pertuzumab (Perjeta) 420 MG/14ML injection simvastatin (Zocor) 20 MG tablet tamoxifen (Nolvadex) 20 MG tablet No current facility-administered medications on file prior to visit. HPI: Pt has a history of breast cancer snhe is on tamoxifen she went 11 months then bled she was uncertain if it was from her rectum and she told primary discussed getting a colonsocpy Discussed us she has a polyp d and c hysteroscopy ROS: Review of Systems Gastrointestinal: Negative for blood in stool, constipation, diarrhea, nausea and rectal pain. Genitourinary: Negative for difficulty urinating, menstrual problem, pelvic pain, vaginal bleeding and vaginal discharge. exam: BP (!) 150/81 Pulse 88 Wt 226 lb (103 kg) LMP 04/12/2023 (Exact Date) BMI 33.86 kg/m? Physical Exam Constitutional: Appearance: Normal appearance. HENT: Head: Normocephalic and atraumatic. Eyes: Conjunctiva/sclera: Conjunctivae normal. Musculoskeletal: Cervical back: Normal range of motion. Skin: General: Skin is warm and dry. Neurological: General: No focal deficit present. Mental Status: She is alert and oriented to person, place, and time. Mental status is at baseline. Psychiatric: Mood and Affect: Mood normal. Behavior: Behavior normal. Thought Content: Thought content normal. Judgment: Judgment normal. Assessment and Plan: Lissett was seen today for follow-up. Diagnoses and all orders for this visit: Postmenopausal bleeding (Primary) Care related to current tamoxifen use Endometrial polyp Proceed with hysteroscopy d and c No follow-ups on file. Normal [facility] US PELVIS TRANSVAGINALon US PELVIS TRANSVAGINAL --------- Gynecological Report (Signed Final 08/12/2023 04:13 pm) PATIENT INFO: ID #: [id number] : [birth year] (53 yrs)(F) Name: LISSETT RUSSELL Visit Date: 08/12/2023 10:31 am PERFORMED BY: Attending: Carlee Camp MD Performed By: Albina Montana RDMS Referred By: NIKKO GOLDBERG MD Location: [facility] [place] [employer] [facility] SERVICE(S) PROVIDED: [employer] Transvaginal [id number] INDICATIONS: Postmenopausal bleeding N95.0 TECHNIQUE/SCAN QUALITY: Technique: Transvaginal Approach HISTORY: Age: 53 Menses: Postmenopausal HX COMMENTS: Non latex cover used. UTERUS: Uterus: Present Position: Anteverted Size (cm) L: 8.92 W: 5.73 H: 4.68 Description: The uterine contour is smooth but the echogenicity is mottled. This appearance may be seen with diffuse fibroid disease or adenomyosis. ENDOMETRIUM: Endometrium: Visualized Comment: See comments below. CERVIX: Normal appearance CUL-DE-SAC: No free fluid was visualized RIGHT OVARY: Status: Normal appearance Size (cm) L: 1.83 W: 1.55 H: 0.91 Vol (ml): 1.35 LEFT OVARY: Status: Normal appearance Size (cm) L: 2.44 W: 1.86 H: 1.53 Vol (ml): 3.64 COMMENTS: There is a small amount of fluid within the endometrial cavity. There is a 1.04 x 0.43 x 1.01 cm echogenic, polypoid mass within the endometrial cavity. This may represent an endometrial polyp. Blood flow is noted to this mass with color Doppler. The anterior endometrial wall = 3.2 mm and the posterior wall = 2.6 mm. SIS not done per Dr. Goldberg. Carlee Camp MD Electronically Signed Final Report 08/12/2023 04:13 pm IMPRESSION: There is a small amount of fluid within the endometrial cavity. There is a 1.04 x 0.43 x 1.01 cm echogenic, polypoid mass within the endometrial cavity. Blood flow is noted to this mass with color Doppler. This may represent an endometrial polyp. The anterior endometrial wall = 3.2 mm and the posterior wall = 2.6 mm. The uterine contour is smooth but the echogenicity is mottled. This appearance may be seen with diffuse fibroid disease or adenomyosis. Clinical correlation is recommended. The patient is scheduled to see Dr. Goldberg following ultrasound. *Ultrasound cannot detect all pelvic or [employer] abnormalities and normal findings cannot guarantee the absence of a problem.* Normal [facility] Absolute lymphocyte countOrd ered By: Genna Armijo on 07-31-2023 Lymphocytes Auto (Unsp spec) [#/Vol] 2.73 10*3/uL 0.83-4.51 [facility] Automated lymphocyte count a s percentage of total leukocytesOrdered By: Genna Armijo on 07-31-2023 Lymphocytes/100 WBC Auto (Unsp spec) 33.2 % 19-41 [facility] Basophil percentageOrdered B y: Genna Armijo on 07-31-2023 Basophils/100 WBC (Bld) 0.2 % 0-1 [facility] Bilirubin [Mass/Vol] 0.30 mg/dL 0.20-1.00 [facility] Comment on above: For patients on eltr ombopag therapy, use of Dimension [place] TBIL is not recommended. Chloride [Moles/Vol] 108 mmol/L 98-107 [facility] Eosinophils/100 WBC (Bld) 0.7 % 0-5 [facility] Glucose [Mass/Vol] 103 mg/dL 74-106 [facility] Comment on above: Fasting Glucose resu lt from 100 to 125 mg/dL suggests IMPAIRED HOMEOSTASIS per A.D.A. criteria. Hemoglobin (Bld) [Mass/Vol] 13.2 g/dL 12.0-15.0 [facility] Monocytes/100 WBC (Bld) 6.9 % 0-10 [facility] Neutrophils (Bld) [#/Vol] 4.8 10*3/uL 2.0-7.7 [facility] Neutrophils/100 WBC (Bld) 58.6 % 47-70 [facility] Potassium [Moles/Vol] 3.9 mmol/L 3.5-5.1 [facility] Protein [Mass/Vol] 6.9 g/dL 6.4-8.2 [facility] Sodium [Moles/Vol] 141 mmol/L 136-145 [facility] WBC (Bld) [#/Vol] 8.2 10*3/uL 4.4-11.0 [facility] Determination of erythrocyte mean corpuscular volume (MCV)Ordered By: Genna Armijo on 07-31-2023 MCV (RBC) [Entitic vol] 96.7 fL 81-99 [facility] Erythrocyte distribution wid th ratioOrdered By: Gnena Armijo on 07-31-2023 Erythrocyte distribution width (RBC) [Ratio] 13.2 % 11.6-14.6 [facility] Erythrocyte distribution wid th standard deviationOrdered By: Genna Armijo on 07-31-2023 Erythrocyte distribution width (RBC) [Entitic vol] 47.1 fL 35.1-43.9 [facility] Hematocrit Auto (Bld) [Volum e fraction]Ordered By: Genna Armijo on 07-31-2023 Hematocrit (Bld) [Volume fraction] 40.7 % 37-47 [facility] Immature granulocytes/100 WB C Auto (Bld)Ordered By: Genna Armijo on 07-31-2023 Immature granulocytes/100 WBC (Bld) 0.400 % 0.0-0.9 [facility] Comment on above: IG% - Immature Granu locytes (promyelocytes, myelocytes and metamyelocytes) > 1% indicates that a LEFT SHIFT is Present. Laboratory - Chemistry and C hemistry - challengeOrdered By: Genna Armijo on 07-31-2023 Albumin/Globulin [Mass ratio] 1.2 {ratio} 0.9-2.4 [facility] ALP [Catalytic activity/Vol] 44 U/L 45-117 [facility] ALT [Catalytic activity/Vol] 56 U/L 13-56 [facility] CO2 [Moles/Vol] 27.0 mmol/L 21.0-32.0 [facility] Globulin (S) [Mass/Vol] 3.2 g/dL 2.2-4.2 [facility] Urea nitrogen/Creatinine [Mass ratio] 24.2 mg/mg 10-20 [facility] Laboratory - Hematology and Cell countsOrdered By: Genna Armijo on 07-31-2023 MCH (RBC) [Entitic mass] 31.4 pg 27.0-32.0 [facility] MCHC (RBC) [Mass/Vol] 32.4 g/dL 32-36 [facility] Nucleated RBC/100 WBC (Bld) [Ratio] 0 % 0-5 [facility] Platelet mean volume (Bld) [Entitic vol] 9.1 fL 6.2-12.0 [facility] Platelets (Bld) [#/Vol] 201 10*3/uL 150-450 [facility] No Panel InformationOrdered By: Genna Armijo on 07-31-2023 CA 15-3 Antigen 24.8 U/mL 0.0-25.0 [facility] Comment on above: [employer] El ectrochemiluminescence Immunoassay(ECLIA)Values obtained with different assay methods or kits cannotbe used interchangeably. Results cannot be interpreted asabsolute evidence of the presence or absence of malignantdisease.Performed at: [facility] [id number] Director: Ervin Hitchcock PhD, Phone: [phone] [place] 27.29 27.7 U/mL 0.0-38.6 [facility] Comment on above: [employer]bridge[employer] Immu nochemiluminometric Methodology (ICMA)Values obtained with different assay methods or kits cannotbe used interchangeably. Results cannot be interpreted asabsolute evidence of the presence or absence of malignantdisease. Estimated Creatinine Clearance Calc 98.30 ml/min [facility] Estimated GFR (MDRD) Amer 92 mL/min >60 [facility] Comment on above: GFR Calc Estimated GFR (MDRD) Non-Af Amer 76 mL/min >60 [facility] Comment on above: Non- GFR Calc No Panel InformationOrdered By: Cristóbal Ford on 07-31-2023 Miscellaneous Test Comment SEE SCANNED REPORT [facility] RBC Auto (Bld) [#/Vol]Ordere d By: Genna Armijo on 07-31-2023 RBC (Bld) [#/Vol] 4.21 10*6/uL 4.2-5.4 [facility] Serum or plasma calcium paul urement (mass/volume)Ordered By: Genna Armijo on 07-31-2023 Calcium [Mass/Vol] 9.6 mg/dL 8.5-10.1 [facility] Serum or plasma creatinine m easurement (mass/volume)Ordered By: Genna Armijo on 07-31-2023 Creatinine [Mass/Vol] 0.83 mg/dL 0.55-1.02 [facility] Comment on above: The validity of the calculated GFR & GFRAA in patients over 70 years has not been determined. Clinical correlation is essential. Serum or plasma urea nitroge n measurement (mass/volume)Ordered By: Genna Armijo on 07-31-2023 Urea nitrogen [Mass/Vol] 20 mg/dL 12-24 [facility] Thin prep Papanicolaou smear with manual screeningOrdered By: Genna Armijo on 07-31-2023 Thin prep Papanicolaou smear with manual screening 3.7 g/dL 3.2-5.0 [facility] Thin prep Papanicolaou smear with manual screening 44 U/L 15-37 [facility] Thin prep Papanicolaou smear with manual screening 6 5-15 [facility] Basophil percentageOrdered B y: Jesus Varma on 06-26-2023 Cholesterol [Mass/Vol] 142 mg/dL <200 [facility] Comment on above: <200 mg/dL Desirable 200-240 mg/dL Borderline >240 mg/dL High Risk Triglyceride [Mass/Vol] 187 mg/dL <199 [facility] Comment on above: The drugs N-Acetylcy steine and Metamizole may falsely depress this assay.Serum Triglycerides Reference Interval Normal <150 mg/dL Borderline high 150 - 199 mg/dL High 200 - 499 mg/dL Very High > or = 500 mg/dL Direct bilirubinOrdered By: Jesus Varma on 06-26-2023 Bilirubin.direct [Mass/Vol] 0.16 mg/dL 0.00-0.30 [facility] Laboratory - Chemistry and C hemistry - challengeOrdered By: Jesus Varma on 06-26-2023 Cholesterol in HDL (Body fld) [Mass/Vol] 53 mg/dL >40 [facility] Comment on above: The drugs N-Acetylcy steine and Metamizole may falsely depress this assay. Reference Range HDL <40 mg/dL Low HDL Cholesterol HDL >or= 60 mg/dL High HDL Cholesterol Cholesterol in LDL (Body fld) [Moles/Vol] 52 mg/dL 0-130 [facility] Cholesterol in VLDL Calc [Moles/Vol] 37 mg/dL 5-40 [facility] Office Visiton 05-13-2023 Follow-up visit [id number] Tania Russell 1970 F Date Provider Department Center 05/13/2023 [id number] GOLDBERG [facility] Offi Family History Problem Relation Age of Onset Diabetes Mother Stroke Paternal Grandmother Colon cancer Maternal Grandfather Family Status - Relation Status Age at Mother Alive Paternal Grandmother Maternal Grandfather Father Level of Service:56932 CO OFFICE/OUTPATIENT ESTABLISHED LOW MDM 20-29 MIN Reason for Visit and Comments: Vaginal Bleeding [[id number]] Normal [facility] Progress Noteon 05-13-2023 Progress Note Chief Complaint Patient presents with Vaginal Bleeding Patient's last menstrual period was 04/12/2023 (exact date). History: Past Medical History: Diagnosis Date High cholesterol simvastatin Minor injury of knee R knee (torn miniscus & stress fracture) History reviewed. No pertinent surgical history. Family History Problem Relation Name Age of Onset Diabetes Mother Stroke Paternal Grandmother Colon cancer Maternal Grandfather Social History Tobacco Use Smoking status: Never Smokeless tobacco: Never Substance Use Topics Alcohol use: Yes Drug use: No Allergies: No Known Allergies Medications: Current Outpatient Medications on File Prior to Visit Medication Sig Dispense Refill simvastatin (Zocor) 20 MG tablet tamoxifen (Nolvadex) 20 MG tablet No current facility-administered medications on file prior to visit. HPI: Pt is on tamoxifen for 1 year she had an episode of bleeding but she is not sure if rectal or vaginal it was one time she is doing colograd . She has some cramping Diagnosis: Left breast lesion. Pathologic Diagnosis Outside Slides: [id number] (06/06/2022) A. Left Breast at 2 o'clock, Core Biopsy: ? Invasive ductal carcinoma, grade 2 (score: tubule 3, nuclear 2, mitotic 1), 1.1 cm in greatest length ? Manual immunohistochemical quantification using stains performed at outside institute: ? Estrogen Receptor: positive (98%, strong intensity) ? Progesterone Receptor: positive (10%, moderate intensity) ? HER2: Not provided B. Left Breast at 1 o'clock, Core Biopsy: ? Invasive ductal carcinoma, grade 2 (score: tubule 3, nuclear 2, mitotic 1), 0.9 cm in greatest length ? Manual immunohistochemical quantification using stains performed at outside institute: ? Estrogen Receptor: positive (98%, strong intensity) ? Progesterone Receptor: positive (10%, moderate intensity) ? HER2: positive (Score 3+) Pt currently on tamoxifen ROS: Review of Systems Gastrointestinal: Negative for blood in stool, constipation, diarrhea and rectal pain. Genitourinary: Positive for pelvic pain. Negative for difficulty urinating, vaginal bleeding, vaginal discharge and vaginal pain. exam: BP (!) 148/84 Pulse 85 Wt 227 lb (103 kg) LMP 04/12/2023 (Exact Date) BMI 34.01 kg/m? Physical Exam Constitutional: Appearance: Normal appearance. Eyes: Conjunctiva/sclera: Conjunctivae normal. Pulmonary: Effort: Pulmonary effort is normal. Genitourinary: General: Normal vulva. Vagina: Normal. Cervix: Normal. Uterus: Normal. Adnexa: Right adnexa normal and left adnexa normal. Skin: General: Skin is warm and dry. Neurological: General: No focal deficit present. Mental Status: She is alert and oriented to person, place, and time. Mental status is at baseline. Psychiatric: Mood and Affect: Mood normal. Behavior: Behavior normal. Thought Content: Thought content normal. Judgment: Judgment normal. Assessment and Plan: Lissett was seen today for vaginal bleeding. Diagnoses and all orders for this visit: Postmenopausal bleeding (Primary) - US pelvis hysterosonography doppler; Future Care related to current tamoxifen use History of left breast cancer No follow-ups on file. Normal [facility] LIPIDon 04-30-2023 Cholesterol [Mass/Vol] 151 mg/dL Normal 0-200 [facility] ([place]) Comment on above: Result Comment: Chol esterol Reference Interval: Less than 200 Desirable 200-239 Borderline high risk 240 and above High risk Performed By: #### L IPID #### [id number] [place], [place] [address] Cholesterol in HDL [Mass/Vol] 55 mg/dL Normal 40-60 [facility] ([place]) Comment on above: Performed By: #### L IPID #### [id number] [place], [place] [address] Cholesterol in LDL [Mass/Vol] 67 mg/dL Normal 0-130 [facility] ([place]) Comment on above: Performed By: #### L IPID #### [id number] [place], [place] [address] Triglyceride [Mass/Vol] 143 mg/dL Normal 0-150 [facility] ([place]) Comment on above: Result Comment: Trig lyceride Reference Interval: Less than 150 Normal 150-199 Borderline high risk 200-499 High risk 500 or higher Very high risk Performed By: #### L IPID #### [id number] [place], [place] [address] Absolute lymphocyte countOrd ered By: Genna Armijo on 04-24-2023 Lymphocytes Auto (Unsp spec) [#/Vol] 2.53 10*3/uL 0.83-4.51 [facility] Basophil percentageOrdered B y: Genna Armijo on 04-24-2023 Basophils/100 WBC (Bld) 0.2 % 0-1 [facility] Bilirubin [Mass/Vol] 0.30 mg/dL 0.20-1.00 [facility] Comment on above: For patients on eltr ombopag therapy, use of Dimension [place] TBIL is not recommended. Chloride [Moles/Vol] 111 mmol/L 98-107 [facility] Eosinophils/100 WBC (Bld) 0.9 % 0-5 [facility] Glucose [Mass/Vol] 106 mg/dL 74-106 [facility] Comment on above: Fasting Glucose resu lt from 100 to 125 mg/dL suggests IMPAIRED HOMEOSTASIS per A.D.A. criteria. Neutrophils (Bld) [#/Vol] 5.4 10*3/uL 2.0-7.7 [facility] Neutrophils/100 WBC (Bld) 62.8 % 47-70 [facility] Potassium [Moles/Vol] 3.6 mmol/L 3.5-5.1 [facility] Protein [Mass/Vol] 7.0 g/dL 6.4-8.2 [facility] Sodium [Moles/Vol] 144 mmol/L 136-145 [facility] WBC (Bld) [#/Vol] 8.6 10*3/uL 4.4-11.0 [facility] Blood erythrocytes count (nu mber/volume)Ordered By: Genna Armijo on 04-24-2023 RBC (Bld) [#/Vol] 4.11 10*6/uL 4.2-5.4 [facility] Blood hemoglobin measurement (mass/volume)Ordered By: Genna Armijo on 04-24-2023 Hemoglobin (Bld) [Mass/Vol] 13.1 g/dL 12.0-15.0 [facility] Blood lymphocytes/100 leukoc ytesOrdered By: Genna Armijo on 04-24-2023 Lymphocytes/100 WBC (Bld) 29.5 % 19-41 [facility] Blood monocytes/100 leukocyt esOrdered By: Genna Armijo on 04-24-2023 Monocytes/100 WBC (Bld) 6.4 % 0-10 [facility] Blood platelet mean volumeOr dered By: Genna Armijo on 04-24-2023 Platelet mean volume (Bld) [Entitic vol] 9.0 fL 6.2-12.0 [facility] Determination of erythrocyte mean corpuscular volume (MCV)Ordered By: Genna Armijo on 04-24-2023 MCV (RBC) [Entitic vol] 98.5 fL 81-99 [facility] Hematocrit Auto (Bld) [Volum e fraction]Ordered By: Genna Aleksander on 04-24-2023 Hematocrit (Bld) [Volume fraction] 40.5 % 37-47 [facility] Laboratory - Chemistry and C hemistry - challengeOrdered By: [facility] Aleksander on 04-24-2023 ALP [Catalytic activity/Vol] 40 U/L 45-117 [facility] ALT [Catalytic activity/Vol] 34 U/L 13-56 [facility] CO2 [Moles/Vol] 29.0 mmol/L 21.0-32.0 [facility] Globulin (S) [Mass/Vol] 3.2 g/dL 2.2-4.2 [facility] Urea nitrogen/Creatinine [Mass ratio] 30.3 mg/mg 10-20 [facility] Laboratory - Hematology and Cell countsOrdered By: [facility] on 04-24-2023 Erythrocyte distribution width (RBC) [Entitic vol] 47.6 fL 35.1-43.9 [facility] Erythrocyte distribution width (RBC) [Ratio] 13.2 % 11.6-14.6 [facility] Immature granulocytes/100 WBC (Bld) 0.200 % 0.0-0.9 [facility] Comment on above: IG% - Immature Granu locytes (promyelocytes, myelocytes and metamyelocytes) > 1% indicates that a LEFT SHIFT is Present. MCH (RBC) [Entitic mass] 31.9 pg 27.0-32.0 [facility] Nucleated RBC/100 WBC (Bld) [Ratio] 0 % 0-5 [facility] MCHC Auto (RBC) [Mass/Vol]Or dered By: Genna Armijo on 04-24-2023 MCHC (RBC) [Mass/Vol] 32.3 g/dL 32-36 [facility] No Panel InformationOrdered By: Genna Armijo on 04-24-2023 Miscellaneous Test Comment MAILED SPECIMEN [facility] CA 15-3 Antigen 20.9 U/mL 0.0-25.0 [facility] Comment on above: [employer] El ectrochemiluminescence Immunoassay(ECLIA)Values obtained with different assay methods or kits cannotbe used interchangeably. Results cannot be interpreted asabsolute evidence of the presence or absence of malignantdisease.Performed at: [facility] [id number] Director: Ervin Hitchcock PhD, Phone: [phone] [place] 27.29 21.2 U/mL 0.0-38.6 [facility] Comment on above: [employer] Immu nochemiluminometric Methodology (ICMA)Values obtained with different assay methods or kits cannotbe used interchangeably. Results cannot be interpreted asabsolute evidence of the presence or absence of malignantdisease. Estimated Creatinine Clearance Calc 90.11 ml/min [facility] Estimated GFR (MDRD) Amer 108 mL/min >60 [facility] Comment on above: GFR Calc Estimated GFR (MDRD) Non-Af Amer 89 mL/min >60 [facility] Comment on above: Non- GFR Calc Platelets bldOrdered By: David Armijo on 04-24-2023 Platelets (Bld) [#/Vol] 200 10*3/uL 150-450 [facility] Serum or plasma albumin paul urement (mass/volume)Ordered By: Genna Armijo on 04-24-2023 Albumin [Mass/Vol] 3.8 g/dL 3.2-5.0 [facility] Serum or plasma albumin/glob ulin mass ratioOrdered By: Genna Armijo on 04-24-2023 Albumin/Globulin [Mass ratio] 1.2 {ratio} 0.9-2.4 [facility] Serum or plasma calcium paul urement (mass/volume)Ordered By: Genna Armijo on 04-24-2023 Calcium [Mass/Vol] 9.6 mg/dL 8.5-10.1 [facility] Serum or plasma creatinine m easurement (mass/volume)Ordered By: Genna Armijo on 04-24-2023 Creatinine [Mass/Vol] 0.72 mg/dL 0.55-1.02 [facility] Comment on above: The validity of the calculated GFR & GFRAA in patients over 70 years has not been determined. Clinical correlation is essential. Serum or plasma urea nitroge n measurement (mass/volume)Ordered By: Genna Armijo on 04-24-2023 Urea nitrogen [Mass/Vol] 22 mg/dL 7-18 [facility] Thin prep Papanicolaou smear with manual screeningOrdered By: Genna Armijo on 04-24-2023 Thin prep Papanicolaou smear with manual screening 22 U/L 15-37 [facility] Thin prep Papanicolaou smear with manual screening 4 5-15 [facility] Absolute lymphocyte countOrd ered By: Cristóbal Ford on 03-13-2023 Lymphocytes Auto (Unsp spec) [#/Vol] 2.25 10*3/uL 0.83-4.51 [facility] Basophil percentageOrdered B y: Cristóbal Ford on 03-13-2023 Basophils/100 WBC (Bld) 0.3 % 0-1 [facility] Bilirubin [Mass/Vol] 0.40 mg/dL 0.20-1.00 [facility] Comment on above: For patients on eltr ombopag therapy, use of Dimension [place] TBIL is not recommended. Chloride [Moles/Vol] 110 mmol/L 98-107 [facility] Eosinophils/100 WBC (Bld) 0.5 % 0-5 [facility] Glucose [Mass/Vol] 91 mg/dL 74-106 [facility] LDH [Catalytic activity/Vol] 183 U/L 84-246 [facility] Neutrophils (Bld) [#/Vol] 5.9 10*3/uL 2.0-7.7 [facility] Neutrophils/100 WBC (Bld) 66.7 % 47-70 [facility] Potassium [Moles/Vol] 3.7 mmol/L 3.5-5.1 [facility] Protein [Mass/Vol] 6.6 g/dL 6.4-8.2 [facility] Sodium [Moles/Vol] 141 mmol/L 136-145 [facility] WBC (Bld) [#/Vol] 8.8 10*3/uL 4.4-11.0 [facility] Blood erythrocytes count (nu mber/volume)Ordered By: Cristóbal Ford on 03-13-2023 RBC (Bld) [#/Vol] 4.16 10*6/uL 4.2-5.4 [facility] Blood hemoglobin measurement (mass/volume)Ordered By: Cristóbal Ford on 03-13-2023 Hemoglobin (Bld) [Mass/Vol] 13.0 g/dL 12.0-15.0 [facility] Blood lymphocytes/100 leukoc ytesOrdered By: Cristóbal Ford on 03-13-2023 Lymphocytes/100 WBC (Bld) 25.5 % 19-41 [facility] Blood monocytes/100 leukocyt esOrdered By: Cristóbal Ford on 03-13-2023 Monocytes/100 WBC (Bld) 6.5 % 0-10 [facility] Blood platelet mean volumeOr dered By: Cristóbal Ford on 03-13-2023 Platelet mean volume (Bld) [Entitic vol] 8.8 fL 6.2-12.0 [facility] Determination of erythrocyte mean corpuscular volume (MCV)Ordered By: Cristóbal Ford on 03-13-2023 MCV (RBC) [Entitic vol] 99.8 fL 81-99 [facility] Hematocrit Auto (Bld) [Volum e fraction]Ordered By: Cristóbal Ford on 03-13-2023 Hematocrit (Bld) [Volume fraction] 41.5 % 37-47 [facility] Laboratory - Chemistry and C hemistry - challengeOrdered By: Prather Liliana on 03-13-2023 ALP [Catalytic activity/Vol] 38 U/L 45-117 [facility] ALT [Catalytic activity/Vol] 40 U/L 13-56 [facility] CO2 [Moles/Vol] 28.0 mmol/L 21.0-32.0 [facility] Globulin (S) [Mass/Vol] 3.1 g/dL 2.2-4.2 [facility] Urea nitrogen/Creatinine [Mass ratio] 24.7 mg/mg 10-20 [facility] Laboratory - Hematology and Cell countsOrdered By: Cristóbal Ford on 03-13-2023 Erythrocyte distribution width (RBC) [Entitic vol] 51.8 fL 35.1-43.9 [facility] Erythrocyte distribution width (RBC) [Ratio] 14.2 % 11.6-14.6 [facility] Immature granulocytes/100 WBC (Bld) 0.500 % 0.0-0.9 [facility] Comment on above: IG% - Immature Granu locytes (promyelocytes, myelocytes and metamyelocytes) > 1% indicates that a LEFT SHIFT is Present. MCH (RBC) [Entitic mass] 31.3 pg 27.0-32.0 [facility] Nucleated RBC/100 WBC (Bld) [Ratio] 0 % 0-5 [facility] MCHC Auto (RBC) [Mass/Vol]Or dered By: Cristóbal Ford on 03-13-2023 MCHC (RBC) [Mass/Vol] 31.3 g/dL 32-36 [facility] No Panel InformationOrdered By: Genna Armijo on 03-13-2023 CA 15-3 Antigen 19.5 U/mL 0.0-25.0 [facility] Comment on above: [employer] El ectrochemiluminescence Immunoassay(ECLIA)Values obtained with different assay methods or kits cannotbe used interchangeably. Results cannot be interpreted asabsolute evidence of the presence or absence of malignantdisease.Performed at: [employer] [facility] [address] [id number] Director: Ervin Hitchcock PhD, Phone: [phone] [place] 27.29 21.4 U/mL 0.0-38.6 [facility] Comment on above: [employer] Immu nochemiluminometric Methodology (ICMA)Values obtained with different assay methods or kits cannotbe used interchangeably. Results cannot be interpreted asabsolute evidence of the presence or absence of malignantdisease. No Panel InformationOrdered By: Cristóbal Ford on 03-13-2023 Estimated Creatinine Clearance Calc 68.56 ml/min [facility] Estimated GFR (MDRD) Amer 95 mL/min >60 [facility] Comment on above: GFR Calc Estimated GFR (MDRD) Non-Af Amer 78 mL/min >60 [facility] Comment on above: Non- GFR Calc Platelets bldOrdered By: Jose G Ford on 03-13-2023 Platelets (Bld) [#/Vol] 178 10*3/uL 150-450 [facility] Serum or plasma albumin paul urement (mass/volume)Ordered By: Cristóbal Ford on 03-13-2023 Albumin [Mass/Vol] 3.5 g/dL 3.2-5.0 [facility] Serum or plasma albumin/glob ulin mass ratioOrdered By: Cristóbal Ford on 03-13-2023 Albumin/Globulin [Mass ratio] 1.1 {ratio} 0.9-2.4 [facility] Serum or plasma calcium paul urement (mass/volume)Ordered By: Cristóbal Ford on 03-13-2023 Calcium [Mass/Vol] 9.8 mg/dL 8.5-10.1 [facility] Serum or plasma creatinine m easurement (mass/volume)Ordered By: Cristóbal Ford on 03-13-2023 Creatinine [Mass/Vol] 0.81 mg/dL 0.55-1.02 [facility] Comment on above: The validity of the calculated GFR & GFRAA in patients over 70 years has not been determined. Clinical correlation is essential. Serum or plasma urea nitroge n measurement (mass/volume)Ordered By: Cristóbal Ford on 03-13-2023 Urea nitrogen [Mass/Vol] 20 mg/dL 7-18 [facility] Thin prep Papanicolaou smear with manual screeningOrdered By: Cristóbal Ford on 03-13-2023 Thin prep Papanicolaou smear with manual screening 21 U/L 15-37 [facility] Thin prep Papanicolaou smear with manual screening 3 5-15 [facility] Absolute lymphocyte countOrd ered By: Genna Armijo on 01-23-2023 Lymphocytes Auto (Unsp spec) [#/Vol] 2.31 10*3/uL 0.83-4.51 [facility] Basophil percentageOrdered B y: Genna Armijo on 01-23-2023 Basophils/100 WBC (Bld) 0.2 % 0-1 [facility] Bilirubin [Mass/Vol] 0.30 mg/dL 0.20-1.00 [facility] Comment on above: For patients on eltr ombopag therapy, use of Dimension [place] TBIL is not recommended. Chloride [Moles/Vol] 108 mmol/L 98-107 [facility] Eosinophils/100 WBC (Bld) 0.7 % 0-5 [facility] Glucose [Mass/Vol] 114 mg/dL 74-106 [facility] Comment on above: Fasting Glucose resu lt from 100 to 125 mg/dL suggests IMPAIRED HOMEOSTASIS per A.D.A. criteria. LDH [Catalytic activity/Vol] 186 U/L 84-246 [facility] Neutrophils (Bld) [#/Vol] 5.7 10*3/uL 2.0-7.7 [facility] Neutrophils/100 WBC (Bld) 65.7 % 47-70 [facility] Potassium [Moles/Vol] 3.5 mmol/L 3.5-5.1 [facility] Protein [Mass/Vol] 6.9 g/dL 6.4-8.2 [facility] Sodium [Moles/Vol] 141 mmol/L 136-145 [facility] WBC (Bld) [#/Vol] 8.6 10*3/uL 4.4-11.0 [facility] Blood erythrocytes count (nu mber/volume)Ordered By: Genna Armijo on 01-23-2023 RBC (Bld) [#/Vol] 4.06 10*6/uL 4.2-5.4 [facility] Blood hemoglobin measurement (mass/volume)Ordered By: Genna Armijo on 01-23-2023 Hemoglobin (Bld) [Mass/Vol] 12.9 g/dL 12.0-15.0 [facility] Blood lymphocytes/100 leukoc ytesOrdered By: Genna Armijo on 01-23-2023 Lymphocytes/100 WBC (Bld) 26.8 % 19-41 [facility] Blood monocytes/100 leukocyt esOrdered By: Genna Armijo on 01-23-2023 Monocytes/100 WBC (Bld) 6.0 % 0-10 [facility] Blood platelet mean volumeOr dered By: Genna Armijo on 01-23-2023 Platelet mean volume (Bld) [Entitic vol] 8.9 fL 6.2-12.0 [facility] Determination of erythrocyte mean corpuscular volume (MCV)Ordered By: Genna Armijo on 01-23-2023 MCV (RBC) [Entitic vol] 100.7 fL 81-99 [facility] Hematocrit Auto (Bld) [Volum e fraction]Ordered By: Genna Arimjo on 01-23-2023 Hematocrit (Bld) [Volume fraction] 40.9 % 37-47 [facility] Laboratory - Chemistry and C hemistry - challengeOrdered By: Genna Armijo on 01-23-2023 ALP [Catalytic activity/Vol] 41 U/L 45-117 [facility] ALT [Catalytic activity/Vol] 30 U/L 13-56 [facility] CO2 [Moles/Vol] 28.0 mmol/L 21.0-32.0 [facility] Globulin (S) [Mass/Vol] 3.4 g/dL 2.2-4.2 [facility] Urea nitrogen/Creatinine [Mass ratio] 20.9 mg/mg 10-20 [facility] Laboratory - Hematology and Cell countsOrdered By: Gennameagan Armijo on 01-23-2023 Erythrocyte distribution width (RBC) [Entitic vol] 48.5 fL 35.1-43.9 [facility] Erythrocyte distribution width (RBC) [Ratio] 13.1 % 11.6-14.6 [facility] Immature granulocytes/100 WBC (Bld) 0.600 % 0.0-0.9 [facility] Comment on above: IG% - Immature Granu locytes (promyelocytes, myelocytes and metamyelocytes) > 1% indicates that a LEFT SHIFT is Present. MCH (RBC) [Entitic mass] 31.8 pg 27.0-32.0 [facility] Nucleated RBC/100 WBC (Bld) [Ratio] 0 % 0-5 [facility] MCHC Auto (RBC) [Mass/Vol]Or dered By: Genna Armijo on 01-23-2023 MCHC (RBC) [Mass/Vol] 31.5 g/dL 32-36 [facility] No Panel InformationOrdered By: Genna Armijo on 01-23-2023 CA 15-3 Antigen 19.6 U/mL 0.0-25.0 [facility] Comment on above: [employer] El ectrochemiluminescence Immunoassay(ECLIA)Values obtained with different assay methods or kits cannotbe used interchangeably. Results cannot be interpreted asabsolute evidence of the presence or absence of malignantdisease.Performed at: [facility] [address] [id number] Director: Ervin Hitchcock PhD, Phone: [phone] CA 27.29 21.8 U/mL 0.0-38.6 [facility] Comment on above: Siem[employer] Centaur Immu nochemiluminometric Methodology (ICMA)Values obtained with different assay methods or kits cannotbe used interchangeably. Results cannot be interpreted asabsolute evidence of the presence or absence of malignantdisease. Estimated Creatinine Clearance Calc 65.33 ml/min [facility] Estimated GFR (MDRD) Amer 88 mL/min >60 [facility] Comment on above: GFR Calc Estimated GFR (MDRD) Non-Af Amer 73 mL/min >60 [facility] Comment on above: Non- GFR Calc Platelets bldOrdered By: David Armijo on 01-23-2023 Platelets (Bld) [#/Vol] 182 10*3/uL 150-450 [facility] Serum or plasma albumin paul urement (mass/volume)Ordered By: Genna Armijo on 01-23-2023 Albumin [Mass/Vol] 3.5 g/dL 3.2-5.0 [facility] Serum or plasma albumin/glob ulin mass ratioOrdered By: Genna Armijo on 01-23-2023 Albumin/Globulin [Mass ratio] 1.0 {ratio} 0.9-2.4 [facility] Serum or plasma calcium paul urement (mass/volume)Ordered By: Genna Armijo on 01-23-2023 Calcium [Mass/Vol] 9.6 mg/dL 8.5-10.1 [facility] Serum or plasma creatinine m easurement (mass/volume)Ordered By: Genna Armijo on 01-23-2023 Creatinine [Mass/Vol] 0.86 mg/dL 0.55-1.02 [facility] Comment on above: The validity of the calculated GFR & GFRAA in patients over 70 years has not been determined. Clinical correlation is essential. Serum or plasma urea nitroge n measurement (mass/volume)Ordered By: Genna Armijo on 01-23-2023 Urea nitrogen [Mass/Vol] 18 mg/dL 7-18 [facility] Thin prep Papanicolaou smear with manual screeningOrdered By: Genna Armijo on 01-23-2023 Thin prep Papanicolaou smear with manual screening 20 U/L 15-37 [facility] Thin prep Papanicolaou smear with manual screening 5 5-15 [facility] Absolute lymphocyte countOrd ered By: Cristóbal Ford on 11-21-2022 Lymphocytes Auto (Unsp spec) [#/Vol] 1.96 10*3/uL 0.83-4.51 [facility] Basophil percentageOrdered B y: Cristóbal Ford on 11-21-2022 Basophils/100 WBC (Bld) 0.3 % 0-1 [facility] Bilirubin [Mass/Vol] 0.30 mg/dL 0.20-1.00 [facility] Comment on above: For patients on eltr ombopag therapy, use of Dimension [place] TBIL is not recommended. Chloride [Moles/Vol] 110 mmol/L 98-107 [facility] Eosinophils/100 WBC (Bld) 0.4 % 0-5 [facility] Glucose [Mass/Vol] 109 mg/dL 74-106 [facility] Comment on above: Fasting Glucose resu lt from 100 to 125 mg/dL suggests IMPAIRED HOMEOSTASIS per A.D.A. criteria. LDH [Catalytic activity/Vol] 227 U/L 84-246 [facility] Neutrophils (Bld) [#/Vol] 6.6 10*3/uL 2.0-7.7 [facility] Neutrophils/100 WBC (Bld) 71.1 % 47-70 [facility] Potassium [Moles/Vol] 3.7 mmol/L 3.5-5.1 [facility] Protein [Mass/Vol] 6.5 g/dL 6.4-8.2 [facility] Sodium [Moles/Vol] 142 mmol/L 136-145 [facility] WBC (Bld) [#/Vol] 9.2 10*3/uL 4.4-11.0 [facility] Blood erythrocytes count (nu mber/volume)Ordered By: Cristóbal Ford on 11-21-2022 RBC (Bld) [#/Vol] 3.57 10*6/uL 4.2-5.4 [facility] Blood hemoglobin measurement (mass/volume)Ordered By: Cristóbal Ford on 11-21-2022 Hemoglobin (Bld) [Mass/Vol] 12.0 g/dL 12.0-15.0 [facility] Blood lymphocytes/100 leukoc ytesOrdered By: [facility] on 11-21-2022 Lymphocytes/100 WBC (Bld) 21.3 % 19-41 [facility] Blood monocytes/100 leukocyt esOrdered By: Prather Vanita on 11-21-2022 Monocytes/100 WBC (Bld) 6.6 % 0-10 [facility] Blood platelet mean volumeOr dered By: Cristóbal Waldron on 11-21-2022 Platelet mean volume (Bld) [Entitic vol] 8.9 fL 6.2-12.0 [facility] Determination of erythrocyte mean corpuscular volume (MCV)Ordered By: Prather Vanita on 11-21-2022 MCV (RBC) [Entitic vol] 107.3 fL 81-99 [facility] Hematocrit Auto (Bld) [Volum e fraction]Ordered By: Cristóbal Vanita on 11-21-2022 Hematocrit (Bld) [Volume fraction] 38.3 % 37-47 [facility] Laboratory - Chemistry and C hemistry - challengeOrdered By: Prather Vanita on 11-21-2022 ALP [Catalytic activity/Vol] 37 U/L 45-117 [facility] ALT [Catalytic activity/Vol] 19 U/L 13-56 [facility] CO2 [Moles/Vol] 26.0 mmol/L 21.0-32.0 [facility] Globulin (S) [Mass/Vol] 3.2 g/dL 2.2-4.2 [facility] Urea nitrogen/Creatinine [Mass ratio] 20.2 mg/mg 10-20 [facility] Laboratory - Hematology and Cell countsOrdered By: Cristóbal Vanita on 11-21-2022 Erythrocyte distribution width (RBC) [Entitic vol] 58.4 fL 35.1-43.9 [facility] Erythrocyte distribution width (RBC) [Ratio] 14.6 % 11.6-14.6 [facility] Immature granulocytes/100 WBC (Bld) 0.300 % 0.0-0.9 [facility] Comment on above: IG% - Immature Granu locytes (promyelocytes, myelocytes and metamyelocytes) > 1% indicates that a LEFT SHIFT is Present. MCH (RBC) [Entitic mass] 33.6 pg 27.0-32.0 [facility] Nucleated RBC/100 WBC (Bld) [Ratio] 0 % [facility] ([facility] [Mass/Vol]Or dered By: Cristóbal Ford on 11-21-2022 MCHC (RBC) [Mass/Vol] 31.3 g/dL 32-36 [facility] No Panel InformationOrdered By: Cristóbal Ford on 11-21-2022 CA 15-3 Antigen 27.0 U/mL 0.0-25.0 [facility] Comment on above: [employer] El ectrochemiluminescence Immunoassay(ECLIA)Values obtained with different assay methods or kits cannotbe used interchangeably. Results cannot be interpreted asabsolute evidence of the presence or absence of malignantdisease.Performed at: [facility] [address] [id number] Director: Ervin Hitchcock PhD, Phone: [phone] [place] 27.29 29.7 U/mL 0.0-38.6 [facility] Comment on above: [employer] Centaur Immu nochemiluminometric Methodology (ICMA)Values obtained with different assay methods or kits cannotbe used interchangeably. Results cannot be interpreted asabsolute evidence of the presence or absence of malignantdisease. Estimated Creatinine Clearance Calc 66.88 ml/min [facility] Estimated GFR (MDRD) Amer 91 mL/min >60 [facility] Comment on above: GFR Calc Estimated GFR (MDRD) Non-Af Amer 75 mL/min >60 [facility] Comment on above: Non- GFR Calc Platelets bldOrdered By: Jose G Ford on 11-21-2022 Platelets (Bld) [#/Vol] 211 10*3/uL 150-450 [facility] Serum or plasma albumin paul urement (mass/volume)Ordered By: Cristóbal Ford on 11-21-2022 Albumin [Mass/Vol] 3.3 g/dL 3.2-5.0 [facility] Serum or plasma albumin/glob ulin mass ratioOrdered By: Cristóbal Ford on 11-21-2022 Albumin/Globulin [Mass ratio] 1.0 {ratio} 0.9-2.4 [facility] Serum or plasma calcium paul urement (mass/volume)Ordered By: Cristóbal Ford on 11-21-2022 Calcium [Mass/Vol] 9.6 mg/dL 8.5-10.1 [facility] Serum or plasma creatinine m easurement (mass/volume)Ordered By: Cristóbal Ford on 11-21-2022 Creatinine [Mass/Vol] 0.84 mg/dL 0.55-1.02 [facility] Comment on above: The validity of the calculated GFR & GFRAA in patients over 70 years has not been determined. Clinical correlation is essential. Serum or plasma urea nitroge n measurement (mass/volume)Ordered By: Cristóbal Ford on 11-21-2022 Urea nitrogen [Mass/Vol] 17 mg/dL 7-18 [facility] Thin prep Papanicolaou smear with manual screeningOrdered By: Cristóbal Ford on 11-21-2022 Thin prep Papanicolaou smear with manual screening 14 U/L 15-37 [facility] Thin prep Papanicolaou smear with manual screening 6 5-15 [facility] Absolute lymphocyte countOrd ered By: Dr. Ford on 10-31-2022 Lymphocytes Auto (Unsp spec) [#/Vol] 1.80 10*3/uL 0.83-4.51 [facility] Basophil percentageOrdered B y: Dr. Ford on 10-31-2022 Basophil percentage 2.4 mg/dL 2.5-4.9 [facility] Basophils/100 WBC (Bld) 0.1 % 0-1 [facility] Bilirubin [Mass/Vol] 0.30 mg/dL 0.20-1.00 [facility] Comment on above: For patients on eltr ombopag therapy, use of Dimension [place] TBIL is not recommended. Chloride [Moles/Vol] 110 mmol/L 98-107 [facility] Eosinophils/100 WBC (Bld) 0.0 % 0-5 [facility] Glucose [Mass/Vol] 101 mg/dL 74-106 [facility] Comment on above: Fasting Glucose resu lt from 100 to 125 mg/dL suggests IMPAIRED HOMEOSTASIS per A.D.A. criteria. LDH [Catalytic activity/Vol] 264 U/L 84-246 [facility] Neutrophils (Bld) [#/Vol] 4.4 10*3/uL 2.0-7.7 [facility] Neutrophils/100 WBC (Bld) 61.9 % 47-70 [facility] Potassium [Moles/Vol] 3.8 mmol/L 3.5-5.1 [facility] Protein [Mass/Vol] 5.9 g/dL 6.4-8.2 [facility] Sodium [Moles/Vol] 142 mmol/L 136-145 [facility] WBC (Bld) [#/Vol] 7.2 10*3/uL 4.4-11.0 [facility] Blood erythrocytes count (nu mber/volume)Ordered By: Dr. Ford on 10-31-2022 RBC (Bld) [#/Vol] 3.24 10*6/uL 4.2-5.4 [facility] Blood hemoglobin measurement (mass/volume)Ordered By: Dr. Ford on 10-31-2022 Hemoglobin (Bld) [Mass/Vol] 11.0 g/dL 12.0-15.0 [facility] Blood lymphocytes/100 leukoc ytesOrdered By: Dr. Ford on 10-31-2022 Lymphocytes/100 WBC (Bld) 25.1 % 19-41 [facility] Blood monocytes/100 leukocyt esOrdered By: Dr. Ford on 10-31-2022 Monocytes/100 WBC (Bld) 12.5 % 0-10 [facility] Blood platelet mean volumeOr dered By: Dr. Ford on 10-31-2022 Platelet mean volume (Bld) [Entitic vol] 9.0 fL 6.2-12.0 [facility] Determination of erythrocyte mean corpuscular volume (MCV)Ordered By: Dr. Ford on 10-31-2022 MCV (RBC) [Entitic vol] 105.9 fL 81-99 [facility] Hematocrit Auto (Bld) [Volum e fraction]Ordered By: Dr. Ford on 10-31-2022 Hematocrit (Bld) [Volume fraction] 34.3 % 37-47 [facility] Laboratory - Chemistry and C hemistry - challengeOrdered By: Dr. Ford on 10-31-2022 ALP [Catalytic activity/Vol] 36 U/L 45-117 [facility] ALT [Catalytic activity/Vol] 22 U/L 13-56 [facility] CO2 [Moles/Vol] 27.0 mmol/L 21.0-32.0 [facility] Globulin (S) [Mass/Vol] 2.8 g/dL 2.2-4.2 [facility] Urea nitrogen/Creatinine [Mass ratio] 23.3 mg/mg 10-20 [facility] Laboratory - Hematology and Cell countsOrdered By: Dr. Ford on 10-31-2022 Erythrocyte distribution width (RBC) [Entitic vol] 64.0 fL 35.1-43.9 [facility] Erythrocyte distribution width (RBC) [Ratio] 16.4 % 11.6-14.6 [facility] Immature granulocytes/100 WBC (Bld) 0.400 % 0.0-0.9 [facility] Comment on above: IG% - Immature Granu locytes (promyelocytes, myelocytes and metamyelocytes) > 1% indicates that a LEFT SHIFT is Present. MCH (RBC) [Entitic mass] 34.0 pg 27.0-32.0 [facility] Nucleated RBC/100 WBC (Bld) [Ratio] 0 % 0-5 [facility] MCHC Auto (RBC) [Mass/Vol]Or dered By: Dr. Ford on 10-31-2022 MCHC (RBC) [Mass/Vol] 32.1 g/dL 32-36 [facility] No Panel InformationOrdered By: Dr. Ford on 10-31-2022 Miscellaneous Test Comment MAILED SPECIMEN [facility] Estimated Creatinine Clearance Calc 72.96 ml/min [facility] Estimated GFR (MDRD) Amer 100 mL/min >60 [facility] Comment on above: GFR Calc Estimated GFR (MDRD) Non-Af Amer 83 mL/min >60 [facility] Comment on above: Non- GFR Calc Platelets bldOrdered By: Dr. Ford on 10-31-2022 Platelets (Bld) [#/Vol] 134 10*3/uL 150-450 [facility] Serum or plasma albumin paul urement (mass/volume)Ordered By: Dr. Ford on 10-31-2022 Albumin [Mass/Vol] 3.1 g/dL 3.2-5.0 [facility] Serum or plasma albumin/glob ulin mass ratioOrdered By: Dr. Ford on 10-31-2022 Albumin/Globulin [Mass ratio] 1.1 {ratio} 0.9-2.4 [facility] Serum or plasma calcium paul urement (mass/volume)Ordered By: Dr. Ford on 10-31-2022 Calcium [Mass/Vol] 9.0 mg/dL 8.5-10.1 [facility] Serum or plasma creatinine m easurement (mass/volume)Ordered By: Dr. Ford on 10-31-2022 Creatinine [Mass/Vol] 0.77 mg/dL 0.55-1.02 [facility] Comment on above: The validity of the calculated GFR & GFRAA in patients over 70 years has not been determined. Clinical correlation is essential. Serum or plasma urea nitroge n measurement (mass/volume)Ordered By: Dr. Ford on 10-31-2022 Urea nitrogen [Mass/Vol] 18 mg/dL 7-18 [facility] Thin prep Papanicolaou smear with manual screeningOrdered By: Dr. Ford on 10-31-2022 Thin prep Papanicolaou smear with manual screening 20 U/L 15-37 [facility] Thin prep Papanicolaou smear with manual screening 5 5-15 [facility] Trichomonas screening testOr dered By: Cristóbal Ford on 10-31-2022 Phosphorus Level 2.4 mg/dL Low 2.5-4.9 [facility] Laboratory - Chemistry and C hemistry - challengeOrdered By: Dr. Ford on 10-10-2022 Magnesium [Mass/Vol] 2.0 mg/dL 1.6-2.6 [facility] SURG PATH REQUESTon 10-05-19 Case Report Normal [facility] Comment on above: Result Comment: Surg ical Pathology Report Case: [id number] Authorizing Provider: Josh Mancuso MD Collected: 10/04/2022 11:36 AM [facility]ing Location[facility] Received: 10/04/2022 11:36 AM [place] Pathologist: TAWNYA Centeno Specimen: SURG PATH, Left Breast at 2 o'clock, Core Biopsy; Left Breast at 1 o'clock, Core Biopsy Performed By: #### S URGP #### [facility] (DEFAULT) [address] [place] [address] [facility] Comment on above: Result Comment: Requ est received from Josh Mancuso MD for second opinion consultation on slides received: Perform Biomarker(s) only on outside case: 1. Facility name: [facility] 2. Accession # Unknown 3. Specimen Site: Left Breast 4. Reason for performing biomarker: Need pathology re-review and repeat ER, CO and HER2 status as a second opinion. Patient's management at [facility] is questionable. EMAIL VIANCA CHUYDENNIS THAT THE ORDER HAS BEEN PLACED FOR THIS PATIENT Patient's next visit with Dr Mancuso is scheduled for 10/15/22. Template #4 Breast Med Onc Coordinator should request; 1. Slides (H&E and Biomarker stained) from outside surgical pathology specimen . 2. Copies of the final pathology report from surgical pathology specimen including results of Biomarker IHC and HER2 FISH studies. 3. A herbicide service sales representative tissue block or 8 unstained slides cut at 4um from the specified surgical pathology specimen . Preoperative Diagnosis: Left breast lesion. Performed By: #### S URGP #### [facility] (DEFAULT) [address] [place] [address] Gross Description Normal [facility] Comment on above: Result Comment: The following material(s) are received from [facility], [address] [place] [address], with an identifying surgical pathology report that includes a copy of as well as results of PD-L1 (KEYTRUDA) IMMUNOHISTOCHEMICAL Analysis and [facility] NGS REPORT from [employer] and a copy of the patient's Immunohistochemistry / In Situ Hybridization (BRANDY) Report: 6 H&E slide(s) and 22 non-H&E slide(s) which includes the uv ER x2, uv CO x2, uv Her2, uv Ki-67 IHC slides, labeled [id number]. Outside materials are returned in sixty (60) days under separate cover with our number recorded on them. Grosser for this case was: Celia Sandoval For Immediate Release to Patient's [facility]? Yes Performed By: #### S URGP #### [facility] (DEFAULT) [address] [place] [id number] Microscopic Description A microscopic examination was performed. Normal [facility] Comment on above: Performed By: #### S URGP #### [facility] (DEFAULT) [address] [place] [address] Pathologic Diagnosis Normal [facility] Comment on above: Result Comment: Outs justo Slides: [id number] (06/06/2022) A. Left Breast at 2 o'clock, Core Biopsy: Invasive ductal carcinoma, grade 2 (score: tubule 3, nuclear 2, mitotic 1), 1.1 cm in greatest length Manual immunohistochemical quantification using stains performed at outside institute: Estrogen Receptor: positive (98%, strong intensity) Progesterone Receptor: positive (10%, moderate intensity) HER2: Not provided B. Left Breast at 1 o'clock, Core Biopsy: Invasive ductal carcinoma, grade 2 (score: tubule 3, nuclear 2, mitotic 1), 0.9 cm in greatest length Manual immunohistochemical quantification using stains performed at outside institute: Estrogen Receptor: positive (98%, strong intensity) Progesterone Receptor: positive (10%, moderate intensity) HER2: positive (Score 3+) Comment: Provided immunostain for E-cadherin shows positive membranous staining pattern, supporting ductal phenotype. Immunostains for CK5/6, p40 and calponin show absence of myoepithelial cells within invasive carcinoma. The tumor cells show positive staining for CK8. Stains are performed on blocks A and B. Submitted controls show appropriate reactivity. Provided HER2 IHC control is not satisfactory. However, blocks are exhausted per report. ERBB2 amplification was detected in patient's sample by report. Performed By: #### S URGP #### [facility] (DEFAULT) [address] [place] [id number] No Panel InformationOrdered By: Genna Armijo on 08-29-2022 CA 15-3 Antigen 113.0 U/mL 0.0-25.0 [facility] Comment on above: [employer] El ectrochemiluminescence Immunoassay(ECLIA)Values obtained with different assay methods or kits cannotbe used interchangeably. Results cannot be interpreted asabsolute evidence of the presence or absence of malignantdisease.Performed at: [facility] [id number] Director: Ervin Hitchcock PhD, Phone: [phone] [place] 27.29 131.6 U/mL 0.0-38.6 [facility] Comment on above: [employer] Immu nochemiluminometric Methodology (ICMA)Values obtained with different assay methods or kits cannotbe used interchangeably. Results cannot be interpreted asabsolute evidence of the presence or absence of malignantdisease. Serum or plasma carcinoembry onic antigen measurement (mass/volume)Ordered By: Genna Armijo on 08-29-2022 Carcinoembryonic Ag [Mass/Vol] 4.2 ng/mL 0.0-4.7 [facility] Comment on above: Nonsmokers <3.9 [place] ers [facility].6[facility] Electrochemiluminescence Immunoassay(ECLIA)Values obtained with different assay methods or kitscannot be used interchangeably. Results cannot beinterpreted as absolute evidence of the presence orabsence of malignant disease. Absolute lymphocyte countOrd ered By: Genna Armijo on 08-22-2022 Lymphocytes Auto (Unsp spec) [#/Vol] 1.99 10*3/uL 0.83-4.51 [facility] Basophil percentageOrdered B y: Genna Armijo on 08-22-2022 Basophils/100 WBC (Bld) 0.3 % 0-1 [facility] Chloride [Moles/Vol] 109 mmol/L 98-107 [facility] Eosinophils/100 WBC (Bld) 0.0 % 0-5 [facility] Glucose [Mass/Vol] 122 mg/dL 74-106 [facility] Comment on above: Fasting Glucose resu lt from 100 to 125 mg/dL suggests IMPAIRED HOMEOSTASIS per A.D.A. criteria. Neutrophils (Bld) [#/Vol] 6.6 10*3/uL 2.0-7.7 [facility] Neutrophils/100 WBC (Bld) 70.7 % 47-70 [facility] Potassium [Moles/Vol] 4.0 mmol/L 3.5-5.1 [facility] Comment on above: Moderate Hemolysis, Result may be falsely increased. Sodium [Moles/Vol] 142 mmol/L 136-145 [facility] WBC (Bld) [#/Vol] 9.3 10*3/uL 4.4-11.0 [facility] Blood erythrocytes count (nu mber/volume)Ordered By: Genna Armijo on 08-22-2022 RBC (Bld) [#/Vol] 3.94 10*6/uL 4.2-5.4 [facility] Blood hemoglobin measurement (mass/volume)Ordered By: Genna Armijo on 08-22-2022 Hemoglobin (Bld) [Mass/Vol] 12.9 g/dL 12.0-15.0 [facility] Blood lymphocytes/100 leukoc ytesOrdered By: Genna Armijo on 08-22-2022 Lymphocytes/100 WBC (Bld) 21.3 % 19-41 [facility] Blood monocytes/100 leukocyt esOrdered By: Genna Armijo on 08-22-2022 Monocytes/100 WBC (Bld) 6.9 % 0-10 [facility] Blood platelet mean volumeOr dered By: Genna Armijo on 08-22-2022 Platelet mean volume (Bld) [Entitic vol] 9.3 fL 6.2-12.0 [facility] Determination of erythrocyte mean corpuscular volume (MCV)Ordered By: Genna Armijo on 08-22-2022 MCV (RBC) [Entitic vol] 99.0 fL 81-99 [facility] Hematocrit Auto (Bld) [Volum e fraction]Ordered By: Genna Armijo on 08-22-2022 Hematocrit (Bld) [Volume fraction] 39.0 % 37-47 [facility] Laboratory - Chemistry and C hemistry - challengeOrdered By: Genna Armijo on 08-22-2022 CO2 [Moles/Vol] 26.0 mmol/L 21.0-32.0 [facility] Urea nitrogen/Creatinine [Mass ratio] 20.0 mg/mg 10-20 [facility] Laboratory - Hematology and Cell countsOrdered By: Genna Armijo on 08-22-2022 Erythrocyte distribution width (RBC) [Entitic vol] 56.1 fL 35.1-43.9 [facility] Erythrocyte distribution width (RBC) [Ratio] 15.6 % 11.6-14.6 [facility] Immature granulocytes/100 WBC (Bld) 0.800 % 0.0-0.9 [facility] Comment on above: IG% - Immature Granu locytes (promyelocytes, myelocytes and metamyelocytes) > 1% indicates that a LEFT SHIFT is Present. MCH (RBC) [Entitic mass] 32.7 pg 27.0-32.0 [facility] Nucleated RBC/100 WBC (Bld) [Ratio] 0 % 0-5 [facility] MCHC Auto (RBC) [Mass/Vol]Or dered By: Genna Armijo on 08-22-2022 MCHC (RBC) [Mass/Vol] 33.1 g/dL 32-36 [facility] No Panel InformationOrdered By: Genna Arimjo on 08-22-2022 Estimated Creatinine Clearance Calc 77.21 ml/min [facility] Estimated GFR (MDRD) Amer 90 mL/min >60 [facility] Comment on above: GFR Calc Estimated GFR (MDRD) Non-Af Amer 74 mL/min >60 [facility] Comment on above: Non- GFR Calc Platelets bldOrdered By: David Armijo on 08-22-2022 Platelets (Bld) [#/Vol] 151 10*3/uL 150-450 [facility] Serum or plasma calcium paul urement (mass/volume)Ordered By: Genna Armijo on 08-22-2022 Calcium [Mass/Vol] 9.6 mg/dL 8.5-10.1 [facility] Serum or plasma creatinine m easurement (mass/volume)Ordered By: Genna Armijo on 08-22-2022 Creatinine [Mass/Vol] 0.85 mg/dL 0.55-1.02 [facility] Comment on above: The validity of the calculated GFR & GFRAA in patients over 70 years has not been determined. Clinical correlation is essential. Serum or plasma urea nitroge n measurement (mass/volume)Ordered By: Genna Armijo on 08-22-2022 Urea nitrogen [Mass/Vol] 17 mg/dL 7-18 [facility] Thin prep Papanicolaou smear with manual screeningOrdered By: Genna Armijo on 08-22-2022 Thin prep Papanicolaou smear with manual screening 7 5-15 [facility] Absolute lymphocyte countOrd ered By: Dr. Ford on 08-08-2022 Lymphocytes Auto (Unsp spec) [#/Vol] 1.49 10*3/uL 0.83-4.51 [facility] Basophil percentageOrdered B y: Dr. Ford on 08-08-2022 Basophils/100 WBC (Bld) 0.3 % 0-1 [facility] Bilirubin [Mass/Vol] 0.40 mg/dL 0.20-1.00 [facility] Comment on above: For patients on eltr ombopag therapy, use of Dimension [place] TBIL is not recommended. Chloride [Moles/Vol] 109 mmol/L 98-107 [facility] Eosinophils/100 WBC (Bld) 0.0 % 0-5 [facility] Glucose [Mass/Vol] 139 mg/dL 74-106 [facility] Comment on above: Fasting Glucose resu lt greater than or equal to 126 mg/dL suggests DIABETES MELLITUS per A.D.A. criteria. LDH [Catalytic activity/Vol] 239 U/L 84-246 [facility] Neutrophils (Bld) [#/Vol] 4.2 10*3/uL 2.0-7.7 [facility] Neutrophils/100 WBC (Bld) 67.0 % 47-70 [facility] Potassium [Moles/Vol] 4.1 mmol/L 3.5-5.1 [facility] Protein [Mass/Vol] 6.5 g/dL 6.4-8.2 [facility] Sodium [Moles/Vol] 142 mmol/L 136-145 [facility] WBC (Bld) [#/Vol] 6.3 10*3/uL 4.4-11.0 [facility] Blood erythrocytes count (nu mber/volume)Ordered By: Dr. Ford on 08-08-2022 RBC (Bld) [#/Vol] 3.96 10*6/uL 4.2-5.4 [facility] Blood hemoglobin measurement (mass/volume)Ordered By: Dr. Frod on 08-08-2022 Hemoglobin (Bld) [Mass/Vol] 12.8 g/dL 12.0-15.0 [facility] Blood lymphocytes/100 leukoc ytesOrdered By: Dr. Ford on 08-08-2022 Lymphocytes/100 WBC (Bld) 23.7 % 19-41 [facility] Blood monocytes/100 leukocyt esOrdered By: Dr. Ford on 08-08-2022 Monocytes/100 WBC (Bld) 8.7 % 0-10 [facility] Blood platelet mean volumeOr dered By: Dr. Ford on 08-08-2022 Platelet mean volume (Bld) [Entitic vol] 8.9 fL 6.2-12.0 [facility] Determination of erythrocyte mean corpuscular volume (MCV)Ordered By: Dr. Ford on 08-08-2022 MCV (RBC) [Entitic vol] 96.7 fL 81-99 [facility] Hematocrit Auto (Bld) [Volum e fraction]Ordered By: Dr. Ford on 08-08-2022 Hematocrit (Bld) [Volume fraction] 38.3 % 37-47 [facility] Laboratory - Chemistry and C hemistry - challengeOrdered By: Dr. Ford on 08-08-2022 ALP [Catalytic activity/Vol] 55 U/L 45-117 [facility] ALT [Catalytic activity/Vol] 33 U/L 13-56 [facility] CO2 [Moles/Vol] 27.0 mmol/L 21.0-32.0 [facility] Globulin (S) [Mass/Vol] 3.0 g/dL 2.2-4.2 [facility] Magnesium [Mass/Vol] 2.0 mg/dL 1.6-2.6 [facility] Urea nitrogen/Creatinine [Mass ratio] 19.5 mg/mg 10-20 [facility] Laboratory - Hematology and Cell countsOrdered By: Dr. Ford on 08-08-2022 Erythrocyte distribution width (RBC) [Entitic vol] 52.7 fL 35.1-43.9 [facility] Erythrocyte distribution width (RBC) [Ratio] 14.8 % 11.6-14.6 [facility] Immature granulocytes/100 WBC (Bld) 0.300 % 0.0-0.9 [facility] Comment on above: IG% - Immature Granu locytes (promyelocytes, myelocytes and metamyelocytes) > 1% indicates that a LEFT SHIFT is Present. MCH (RBC) [Entitic mass] 32.3 pg 27.0-32.0 [facility] Nucleated RBC/100 WBC (Bld) [Ratio] 0 % 0-5 [facility] MCHC Auto (RBC) [Mass/Vol]Or dered By: Dr. Ford on 08-08-2022 MCHC (RBC) [Mass/Vol] 33.4 g/dL 32-36 [facility] No Panel InformationOrdered By: Dr. Ford on 08-08-2022 CA 15-3 Antigen 141.0 U/mL 0.0-25.0 [facility] Comment on above: [facility] El ectrochemiluminescence Immunoassay(ECLIA)Values obtained with different assay methods or kits cannotbe used interchangeably. Results cannot be interpreted asabsolute evidence of the presence or absence of malignantdisease.Performed at: [facility] Director: Ervin Hitchcock PhD, Phone: [phone] [place] 27.29 187.2 U/mL 0.0-38.6 [facility] Comment on above: [employer] Immu nochemiluminometric Methodology (ICMA)Values obtained with different assay methods or kits cannotbe used interchangeably. Results cannot be interpreted asabsolute evidence of the presence or absence of malignantdisease. Estimated Creatinine Clearance Calc 67.66 ml/min [facility] Estimated GFR (MDRD) Amer 77 mL/min >60 [facility] Comment on above: GFR Calc Estimated GFR (MDRD) Non-Af Amer 63 mL/min >60 [facility] Comment on above: Non- GFR Calc Miscellaneous Test Comment MAILED SPECIMEN [facility] Platelets bldOrdered By: Dr. Ford on 08-08-2022 Platelets (Bld) [#/Vol] 189 10*3/uL 150-450 [facility] Serum or plasma albumin paul urement (mass/volume)Ordered By: Dr. Ford on 08-08-2022 Albumin [Mass/Vol] 3.5 g/dL 3.2-5.0 [facility] Serum or plasma albumin/glob ulin mass ratioOrdered By: Dr. Ford on 08-08-2022 Albumin/Globulin [Mass ratio] 1.2 {ratio} 0.9-2.4 [facility] Serum or plasma calcium paul urement (mass/volume)Ordered By: Dr. Ford on 08-08-2022 Calcium [Mass/Vol] 9.6 mg/dL 8.5-10.1 [facility] Serum or plasma carcinoembry onic antigen measurement (mass/volume)Ordered By: Dr. Ford on 08-08-2022 Carcinoembryonic Ag [Mass/Vol] 8.6 ng/mL 0.0-4.7 [facility] Comment on above: Nonsmokers <3.9 [facility]ok ers <5.6[facility] Electrochemiluminescence Immunoassay(ECLIA)Values obtained with different assay methods or kitscannot be used interchangeably. Results cannot beinterpreted as absolute evidence of the presence orabsence of malignant disease. Serum or plasma creatinine m easurement (mass/volume)Ordered By: Dr. Ford on 08-08-2022 Creatinine [Mass/Vol] 0.97 mg/dL 0.55-1.02 [facility] Comment on above: The validity of the calculated GFR & GFRAA in patients over 70 years has not been determined. Clinical correlation is essential. Serum or plasma urea nitroge n measurement (mass/volume)Ordered By: Dr. Ford on 08-08-2022 Urea nitrogen [Mass/Vol] 19 mg/dL 7-18 [facility] Thin prep Papanicolaou smear with manual screeningOrdered By: Dr. Ford on 08-08-2022 Thin prep Papanicolaou smear with manual screening 24 U/L 15-37 [facility] Thin prep Papanicolaou smear with manual screening 6 5-15 [facility] Absolute lymphocyte countOrd ered By: Dr. Ford on 08-01-2022 Lymphocytes Auto (Unsp spec) [#/Vol] 1.72 10*3/uL 0.83-4.51 [facility] Basophil percentageOrdered B y: Dr. Ford on 08-01-2022 Basophils/100 WBC (Bld) 0.5 % 0-1 [facility] Bilirubin [Mass/Vol] 0.30 mg/dL 0.20-1.00 [facility] Comment on above: For patients on eltr ombopag therapy, use of Dimension [place] TBIL is not recommended. Chloride [Moles/Vol] 107 mmol/L 98-107 [facility] Eosinophils/100 WBC (Bld) 0.0 % 0-5 [facility] Glucose [Mass/Vol] 117 mg/dL 74-106 [facility] Comment on above: Fasting Glucose resu lt from 100 to 125 mg/dL suggests IMPAIRED HOMEOSTASIS per A.D.A. criteria. Neutrophils (Bld) [#/Vol] 6.1 10*3/uL 2.0-7.7 [facility] Neutrophils/100 WBC (Bld) 71.1 % 47-70 [facility] Potassium [Moles/Vol] 4.1 mmol/L 3.5-5.1 [facility] Comment on above: Slight Hemolysis, Re sult may be falsely increased. Protein [Mass/Vol] 6.7 g/dL 6.4-8.2 [facility] Sodium [Moles/Vol] 140 mmol/L 136-145 [facility] WBC (Bld) [#/Vol] 8.6 10*3/uL 4.4-11.0 [facility] Blood erythrocytes count (nu mber/volume)Ordered By: Dr. Ford on 08-01-2022 RBC (Bld) [#/Vol] 4.10 10*6/uL 4.2-5.4 [facility] Blood hemoglobin measurement (mass/volume)Ordered By: Dr. Ford on 08-01-2022 Hemoglobin (Bld) [Mass/Vol] 12.8 g/dL 12.0-15.0 [facility] Blood lymphocytes/100 leukoc ytesOrdered By: Dr. Ford on 08-01-2022 Lymphocytes/100 WBC (Bld) 20.0 % 19-41 [facility] Blood monocytes/100 leukocyt esOrdered By: Dr. Ford on 08-01-2022 Monocytes/100 WBC (Bld) 8.1 % 0-10 [facility] Blood platelet mean volumeOr dered By: Dr. Ford on 08-01-2022 Platelet mean volume (Bld) [Entitic vol] 9.2 fL 6.2-12.0 [facility] Determination of erythrocyte mean corpuscular volume (MCV)Ordered By: Dr. Ford on 08-01-2022 MCV (RBC) [Entitic vol] 97.1 fL 81-99 [facility] Hematocrit Auto (Bld) [Volum e fraction]Ordered By: Dr. Ford on 08-01-2022 Hematocrit (Bld) [Volume fraction] 39.8 % 37-47 [facility] Laboratory - Chemistry and C hemistry - challengeOrdered By: Dr. Ford on 08-01-2022 ALP [Catalytic activity/Vol] 65 U/L 45-117 [facility] ALT [Catalytic activity/Vol] 38 U/L 13-56 [facility] CO2 [Moles/Vol] 28.0 mmol/L 21.0-32.0 [facility] Globulin (S) [Mass/Vol] 3.1 g/dL 2.2-4.2 [facility] Urea nitrogen/Creatinine [Mass ratio] 26.4 mg/mg 10-20 [facility] Laboratory - Hematology and Cell countsOrdered By: Dr. Ford on 08-01-2022 Erythrocyte distribution width (RBC) [Entitic vol] 50.2 fL 35.1-43.9 [facility] Erythrocyte distribution width (RBC) [Ratio] 14.5 % 11.6-14.6 [facility] Immature granulocytes/100 WBC (Bld) 0.300 % 0.0-0.9 [facility] Comment on above: IG% - Immature Granu locytes (promyelocytes, myelocytes and metamyelocytes) > 1% indicates that a LEFT SHIFT is Present. MCH (RBC) [Entitic mass] 31.2 pg 27.0-32.0 [facility] Nucleated RBC/100 WBC (Bld) [Ratio] 0 % 0-5 [facility] MCHC Auto (RBC) [Mass/Vol]Or dered By: Dr. Ford on 08-01-2022 MCHC (RBC) [Mass/Vol] 32.2 g/dL 32-36 [facility] No Panel InformationOrdered By: Dr. Ford on 08-01-2022 Estimated Creatinine Clearance Calc 79.07 ml/min [facility] Estimated GFR (MDRD) Amer 92 mL/min >60 [facility] Comment on above: GFR Calc Estimated GFR (MDRD) Non-Af Amer 76 mL/min >60 [facility] Comment on above: Non- GFR Calc Platelets bldOrdered By: Dr. Ford on 08-01-2022 Platelets (Bld) [#/Vol] 147 10*3/uL 150-450 [facility] Serum or plasma albumin paul urement (mass/volume)Ordered By: Dr. Ford on 08-01-2022 Albumin [Mass/Vol] 3.6 g/dL 3.2-5.0 [facility] Serum or plasma albumin/glob ulin mass ratioOrdered By: Dr. Ford on 08-01-2022 Albumin/Globulin [Mass ratio] 1.2 {ratio} 0.9-2.4 [facility] Serum or plasma calcium paul urement (mass/volume)Ordered By: Dr. Ford on 08-01-2022 Calcium [Mass/Vol] 10.1 mg/dL 8.5-10.1 [facility] Serum or plasma creatinine m easurement (mass/volume)Ordered By: Dr. Ford on 08-01-2022 Creatinine [Mass/Vol] 0.83 mg/dL 0.55-1.02 [facility] Comment on above: The validity of the calculated GFR & GFRAA in patients over 70 years has not been determined. Clinical correlation is essential. Serum or plasma urea nitroge n measurement (mass/volume)Ordered By: Dr. Ford on 08-01-2022 Urea nitrogen [Mass/Vol] 22 mg/dL 7-18 [facility] Thin prep Papanicolaou smear with manual screeningOrdered By: Dr. Ford on 08-01-2022 Thin prep Papanicolaou smear with manual screening 25 U/L 15-37 [facility] Comment on above: Slight Hemolysis, Re sult may be falsely increased. Thin prep Papanicolaou smear with manual screening 5 5-15 [facility] Basophil percentageOrdered B y: Dr. Ford on 07-18-2022 LDH [Catalytic activity/Vol] 240 U/L 84-246 [facility] Laboratory - Chemistry and C hemistry - challengeOrdered By: Dr. Ford on 07-18-2022 Magnesium [Mass/Vol] 2.0 mg/dL 1.6-2.6 [facility] Comment on above: Slight Hemolysis, Re sult may be falsely increased. Absolute lymphocyte countOrd ered By: Dr. Ford on 06-27-2022 Lymphocytes Auto (Unsp spec) [#/Vol] 1.58 10*3/uL 0.83-4.51 [facility] Basophil percentageOrdered B y: Dr. Ford on 06-27-2022 Basophils/100 WBC (Bld) 0.2 % 0-1 [facility] Bilirubin [Mass/Vol] 0.40 mg/dL 0.20-1.00 [facility] Comment on above: For patients on eltr ombopag therapy, use of Dimension [place] TBIL is not recommended. Chloride [Moles/Vol] 106 mmol/L 98-107 [facility] Eosinophils/100 WBC (Bld) 0.8 % 0-5 [facility] Glucose [Mass/Vol] 154 mg/dL 74-106 [facility] Comment on above: Fasting Glucose resu lt greater than or equal to 126 mg/dL suggests DIABETES MELLITUS per A.D.A. criteria. Neutrophils (Bld) [#/Vol] 7.1 10*3/uL 2.0-7.7 [facility] Neutrophils/100 WBC (Bld) 76.4 % 47-70 [facility] Potassium [Moles/Vol] 3.8 mmol/L 3.5-5.1 [facility] Protein [Mass/Vol] 7.3 g/dL 6.4-8.2 [facility] Sodium [Moles/Vol] 139 mmol/L 136-145 [facility] WBC (Bld) [#/Vol] 9.3 10*3/uL 4.4-11.0 [facility] Blood erythrocytes count (nu mber/volume)Ordered By: Dr. Ford on 06-27-2022 RBC (Bld) [#/Vol] 4.53 10*6/uL 4.2-5.4 [facility] Blood hemoglobin measurement (mass/volume)Ordered By: Dr. Ford on 06-27-2022 Hemoglobin (Bld) [Mass/Vol] 14.3 g/dL 12.0-15.0 [facility] Blood lymphocytes/100 leukoc ytesOrdered By: Dr. Ford on 06-27-2022 Lymphocytes/100 WBC (Bld) 17.1 % 19-41 [facility] Blood monocytes/100 leukocyt esOrdered By: Dr. Ford on 06-27-2022 Monocytes/100 WBC (Bld) 5.1 % 0-10 [facility] Blood platelet mean volumeOr dered By: Dr. Ford on 06-27-2022 Platelet mean volume (Bld) [Entitic vol] 9.6 fL 6.2-12.0 [facility] Determination of erythrocyte mean corpuscular volume (MCV)Ordered By: Dr. Ford on 06-27-2022 MCV (RBC) [Entitic vol] 96.5 fL 81-99 [facility] Hematocrit Auto (Bld) [Volum e fraction]Ordered By: Dr. Ford on 06-27-2022 Hematocrit (Bld) [Volume fraction] 43.7 % 37-47 [facility] Laboratory - Chemistry and C hemistry - challengeOrdered By: Dr. Ford on 06-27-2022 ALP [Catalytic activity/Vol] 81 U/L 45-117 [facility] ALT [Catalytic activity/Vol] 31 U/L 13-56 [facility] CO2 [Moles/Vol] 28.0 mmol/L 21.0-32.0 [facility] Globulin (S) [Mass/Vol] 3.5 g/dL 2.2-4.2 [facility] Magnesium [Mass/Vol] 2.0 mg/dL 1.6-2.6 [facility] Urea nitrogen/Creatinine [Mass ratio] 17.9 mg/mg 10-20 [facility] Laboratory - Hematology and Cell countsOrdered By: Dr. Ford on 06-27-2022 Erythrocyte distribution width (RBC) [Entitic vol] 46.7 fL 35.1-43.9 [facility] Erythrocyte distribution width (RBC) [Ratio] 13.2 % 11.6-14.6 [facility] Immature granulocytes/100 WBC (Bld) 0.400 % 0.0-0.9 [facility] Comment on above: IG% - Immature Granu locytes (promyelocytes, myelocytes and metamyelocytes) > 1% indicates that a LEFT SHIFT is Present. MCH (RBC) [Entitic mass] 31.6 pg 27.0-32.0 [facility] Nucleated RBC/100 WBC (Bld) [Ratio] 0 % 0-5 [facility] MCHC Auto (RBC) [Mass/Vol]Or dered By: Dr. Ford on 06-27-2022 MCHC (RBC) [Mass/Vol] 32.7 g/dL 32-36 [facility] No Panel InformationOrdered By: Genna Armijo on 06-27-2022 CA 15-3 Antigen 352.0 U/mL 0.0-25.0 [facility] Comment on above: Results confirmed on dilution.[facility] Electrochemiluminescence Immunoassay(ECLIA)Values obtained with different assay methods or kits cannotbe used interchangeably. Results cannot be interpreted asabsolute evidence of the presence or absence of malignantdisease.Performed at: [facility] [id number] Director: Ervin Hitchcock PhD, Phone: [phone] [place] 27.29 372.0 U/mL 0.0-38.6 [facility] Comment on above: [employer] Immu nochemiluminometric Methodology (ICMA)Values obtained with different assay methods or kits cannotbe used interchangeably. Results cannot be interpreted asabsolute evidence of the presence or absence of malignantdisease. No Panel InformationOrdered By: Dr. Ford on 06-27-2022 Estimated GFR (MDRD) Amer 85 mL/min >60 [facility] Comment on above: GFR Calc Estimated GFR (MDRD) Non-Af Amer 70 mL/min >60 [facility] Comment on above: Non- GFR Calc Miscellaneous Test Comment MAILED SPECIMEN [facility] Platelets bldOrdered By: Dr. Ford on 06-27-2022 Platelets (Bld) [#/Vol] 249 10*3/uL 150-450 [facility] Serum or plasma albumin paul urement (mass/volume)Ordered By: Dr. Ford on 06-27-2022 Albumin [Mass/Vol] 3.8 g/dL 3.2-5.0 [facility] Serum or plasma albumin/glob ulin mass ratioOrdered By: Dr. Ford on 06-27-2022 Albumin/Globulin [Mass ratio] 1.1 {ratio} 0.9-2.4 [facility] Serum or plasma calcium paul urement (mass/volume)Ordered By: Dr. Ford on 06-27-2022 Calcium [Mass/Vol] 10.5 mg/dL 8.5-10.1 [facility] Serum or plasma carcinoembry onic antigen measurement (mass/volume)Ordered By: Genna Armijo on 06-27-2022 Carcinoembryonic Ag [Mass/Vol] 76.6 ng/mL 0.0-4.7 [facility] Comment on above: Nonsmokers <3.9 Smok ers <5.6[facility] Electrochemiluminescence Immunoassay(ECLIA)Values obtained with different assay methods or kitscannot be used interchangeably. Results cannot beinterpreted as absolute evidence of the presence orabsence of malignant disease. Serum or plasma creatinine m easurement (mass/volume)Ordered By: Dr. Ford on 06-27-2022 Creatinine [Mass/Vol] 0.89 mg/dL 0.55-1.02 [facility] Comment on above: The validity of the calculated GFR & GFRAA in patients over 70 years has not been determined. Clinical correlation is essential. Serum or plasma urea nitroge n measurement (mass/volume)Ordered By: Dr. Ford on 06-27-2022 Urea nitrogen [Mass/Vol] 16 mg/dL 7-18 [facility] Thin prep Papanicolaou smear with manual screeningOrdered By: Dr. Ford on 06-27-2022 Thin prep Papanicolaou smear with manual screening 19 U/L 15-37 [facility] Thin prep Papanicolaou smear with manual screening 5 5-15 [facility] Laboratory - Chemistry and C hemistry - challengeOrdered By: Dr. Parr on 06-17-2022 HCG ( test) Ql (U) Negative [facility] Comment on above: Very dilute urine sp ecimens, as indicated by a low specificgravity, may not contain herbicide service sales representative levels of hCG. If is still suspected, a first morning urinespecimen should be collected 48 hours later and tested. Absolute lymphocyte counton 06-13-2022 Lymphocytes Auto (Unsp spec) [#/Vol] 2.44 10*3/uL 0.83-4.51 [facility] Work Phone: Basophil percentageon 2022 Basophils/100 WBC (Bld) 0.4 % 0-1 [facility] Work Phone: Bilirubin [Mass/Vol] 0.50 mg/dL 0.20-1.00 [facility] Work Phone: Comment on above: For patients on eltr ombopag therapy, use of Dimension [place] TBIL is not recommended. Chloride [Moles/Vol] 108 mmol/L 98-107 [facility] Work Phone: Eosinophils/100 WBC (Bld) 0.8 % 0-5 [facility] Work Phone: Glucose [Mass/Vol] 100 mg/dL 74-106 [facility] Work Phone: Comment on above: Fasting Glucose resu lt from 100 to 125 mg/dL suggests IMPAIRED HOMEOSTASIS per A.D.A. criteria. Neutrophils (Bld) [#/Vol] 7.2 10*3/uL 2.0-7.7 [facility] Work Phone: Neutrophils/100 WBC (Bld) 67.8 % 47-70 [facility] Work Phone: Potassium [Moles/Vol] 3.7 mmol/L 3.5-5.1 [facility] Work Phone: Protein [Mass/Vol] 8.1 g/dL 6.4-8.2 [facility] Work Phone: Sodium [Moles/Vol] 139 mmol/L 136-145 [facility] Work Phone: WBC (Bld) [#/Vol] 10.6 10*3/uL 4.4-11.0 [facility] Work Phone: Basophil percentageOrdered B y: Dr. Ford on 06-13-2022 LDH [Catalytic activity/Vol] 191 U/L 84-246 [facility] Blood erythrocytes count (nu mber/volume)on 06-13-2022 RBC (Bld) [#/Vol] 4.86 10*6/uL 4.2-5.4 [facility] Work Phone: Blood hemoglobin measurement (mass/volume)on 06-13-2022 Hemoglobin (Bld) [Mass/Vol] 15.0 g/dL 12.0-15.0 [facility] Work Phone: Blood lymphocytes/100 leukoc yteson 06-13-2022 Lymphocytes/100 WBC (Bld) 23.0 % 19-41 [facility] Work Phone: Blood monocytes/100 leukocyt eson 06-13-2022 Monocytes/100 WBC (Bld) 7.4 % 0-10 [facility] Work Phone: Blood platelet mean volumeon 06-13-2022 Platelet mean volume (Bld) [Entitic vol] 9.5 fL 6.2-12.0 [facility] Work Phone: Determination of erythrocyte mean corpuscular volume (MCV)on 06-13-2022 MCV (RBC) [Entitic vol] 94.7 fL 81-99 [facility] Work Phone: Hematocrit Auto (Bld) [Volum e fraction]on 06-13-2022 Hematocrit (Bld) [Volume fraction] 46.0 % 37-47 [facility] Work Phone: Laboratory - Chemistry and C hemistry - challengeon 06-13-2022 ALP [Catalytic activity/Vol] 91 U/L 45-117 [facility] Work Phone: ALT [Catalytic activity/Vol] 36 U/L 13-56 [facility] Work Phone: CO2 [Moles/Vol] 28.0 mmol/L 21.0-32.0 [facility] Work Phone: Globulin (S) [Mass/Vol] 3.7 g/dL 2.2-4.2 [facility] Work Phone: Urea nitrogen/Creatinine [Mass ratio] 24.3 mg/mg 10-20 [facility] Work Phone: Laboratory - Hematology and Cell countson 06-13-2022 Erythrocyte distribution width (RBC) [Entitic vol] 44.5 fL 35.1-43.9 [facility] Work Phone: Erythrocyte distribution width (RBC) [Ratio] 12.9 % 11.6-14.6 [facility] Work Phone: Immature granulocytes/100 WBC (Bld) 0.600 % 0.0-0.9 [facility] Work Phone: Comment on above: IG% - Immature Granu locytes (promyelocytes, myelocytes and metamyelocytes) > 1% indicates that a LEFT SHIFT is Present. MCH (RBC) [Entitic mass] 30.9 pg 27.0-32.0 [facility] Work Phone: Nucleated RBC/100 WBC (Bld) [Ratio] 0 % 0-5 [facility] Work Phone: MCHC Auto (RBC) [Mass/Vol]on 06-13-2022 MCHC (RBC) [Mass/Vol] 32.6 g/dL 32-36 [facility] Work Phone: No Panel Informationon 06-13 Estimated GFR (MDRD) Amer 93 mL/min >60 [facility] Work Phone: Comment on above: GFR Calc Estimated GFR (MDRD) Non-Af Amer 77 mL/min >60 [facility] Work Phone: Comment on above: Non- GFR Calc Platelets bldon 06-13-2022 Platelets (Bld) [#/Vol] 317 10*3/uL 150-450 [facility] Work Phone: Serum or plasma albumin paul urement (mass/volume)on 06-13-2022 Albumin [Mass/Vol] 4.4 g/dL 3.2-5.0 [facility] Work Phone: Serum or plasma albumin/glob ulin mass ratioon 06-13-2022 Albumin/Globulin [Mass ratio] 1.2 {ratio} 0.9-2.4 [facility] Work Phone: Serum or plasma calcium paul urement (mass/volume)on 06-13-2022 Calcium [Mass/Vol] 10.6 mg/dL 8.5-10.1 [facility] Work Phone: Serum or plasma creatinine m easurement (mass/volume)on 06-13-2022 Creatinine [Mass/Vol] 0.82 mg/dL 0.55-1.02 [facility] Work Phone: Comment on above: The validity of the calculated GFR & GFRAA in patients over 70 years has not been determined. Clinical correlation is essential. Serum or plasma urea nitroge n measurement (mass/volume)on 06-13-2022 Urea nitrogen [Mass/Vol] 20 mg/dL 7-18 [facility] Work Phone: Thin prep Papanicolaou smear with manual screeningon 06-13-2022 Thin prep Papanicolaou smear with manual screening 19 U/L 15-37 [facility] Work Phone: Thin prep Papanicolaou smear with manual screening 3 5-15 [facility] Work Phone: LABORATORYOrdered By: Tal Root on 06-07-2022 Adenovirus DNA ERMIAS+non-probe Ql (Nph) Not Detected *NA* (06/07/22 10:36 AM) Invalid Interpretation Code Not Detected AH Auto Viro/Sero SS B. parapertussis [id number] DNA ERMIAS+non-probe Ql (Nph) Not Detected *NA* (06/07/22 10:36 AM) Invalid Interpretation Code Not Detected AH Auto Viro/Sero SS B. pertussis toxin promoter region ERMIAS+non-probe Ql (Nph) Not Detected *NA* (06/07/22 10:36 AM) Invalid Interpretation Code Not Detected AH Auto Viro/Sero SS C. pneumoniae DNA ERMIAS+non-probe Ql (Nph) Not Detected *NA* (06/07/22 10:36 AM) Invalid Interpretation Code Not Detected AH Auto Viro/Sero SS FLUAV RNA ERMIAS+non-probe Ql (Nph) Not Detected *NA* (06/07/22 10:36 AM) Invalid Interpretation Code Not Detected AH Auto Viro/Sero SS FLUBV RNA ERMIAS+non-probe Ql (Nph) Not Detected *NA* (06/07/22 10:36 AM) Invalid Interpretation Code Not Detected AH Auto Viro/Sero SS hMPV RNA ERMIAS+non-probe Ql (Nph) Not Detected *NA* (06/07/22 10:36 AM) Invalid Interpretation Code Not Detected AH Auto Viro/Sero SS M. pneumoniae DNA ERMIAS+non-probe Ql (Nph) Not Detected *NA* (06/07/22 10:36 AM) Invalid Interpretation Code Not Detected AH Auto Viro/Sero SS Parainfluenza virus 1 RNA ERMIAS+non-probe Ql (Nph) Not Detected *NA* (06/07/22 10:36 AM) Invalid Interpretation Code Not Detected AH Auto Viro/Sero SS Parainfluenza virus 2 RNA ERMIAS+non-probe Ql (Nph) Not Detected *NA* (06/07/22 10:36 AM) Invalid Interpretation Code Not Detected AH Auto Viro/Sero SS Parainfluenza virus 3 RNA ERMIAS+non-probe Ql (Nph) Detected *ABN* (06/07/22 10:36 AM) Invalid Interpretation Code Not Detected AH Auto Viro/Sero SS Parainfluenza virus 4 RNA ERMIAS+non-probe Ql (Nph) Not Detected *NA* (06/07/22 10:36 AM) Invalid Interpretation Code Not Detected AH Auto Viro/Sero SS Rhinovirus+Enterovirus RNA ERMIAS+non-probe Ql (Nph) Not Detected *NA* (06/07/22 10:36 AM) Invalid Interpretation Code Not Detected AH Auto Viro/Sero SS RSV RNA ERMIAS+non-probe Ql (Nph) Not Detected *NA* (06/07/22 10:36 AM) Invalid Interpretation Code Not Detected AH Auto Viro/Sero SS SARS-CoV-2 (COVID-19) RNA ERMIAS+probe Ql (Resp) Detected 1 *ABN* (06/07/22 10:36 AM) Invalid Interpretation Code Not Detected AH Auto Viro/Sero SS Comment on above: Result Comment: This organism causes a reportable disease. Infection Control has been notified. Results have been reported to the [facility]. [place] 06-07-2022 Adenovirus Not detected Normal Not Detected [facility] ([place]) Comment on above: Performed By: #### R ESCVID #### [place] [address] Bordetella Parapertussis Not detected Normal Not Detected [facility] ([place]) Comment on above: Performed By: #### R ESCVID #### [place] [address] Bordetella Pertussis Not detected Normal Not Detected [facility] ([place] Comment on above: Performed By: #### R ESCVID #### [place] [address] Chlamydophila pneumoniae Not detected Normal Not Detected [facility] ([place] Comment on above: Performed By: #### R ESCVID #### [place] [address] Coronavirus 229E (Not COVID-19) Not detected Normal Not Detected [facility] ([place] Comment on above: Performed By: #### R ESCVID #### [place] [address] Coronavirus HKU1 (Not COVID-19) Not detected Normal Not Detected [facility] ([place]) Comment on above: Performed By: #### R ESCVID #### [place] [id number] Coronavirus NL63 (Not COVID-19) Not detected Normal Not Detected [facility] ([place] Comment on above: Performed By: #### R ESCVID #### [place] [address] Coronavirus OC43 (Not COVID-19) Not detected Normal Not Detected [facility] ([place]) Comment on above: Performed By: #### R ESCVID #### [facility] [address] [place] [address] Human Metapneumovirus Not detected Normal Not Detected [facility] ([place]) Comment on above: Performed By: #### R ESCVID #### [facility] [address] [place] [address] Influenza A Not detected Normal Not Detected [facility] ([place]) Comment on above: Performed By: #### R ESCVID #### [facility] [address] [place] [address] Influenza B Not detected Normal Not Detected [facility] ([place]) Comment on above: Performed By: #### R ESCVID #### [facility] [address] [place] [address] Mycoplasma pneumoniae Not detected Normal Not Detected [facility] ([place]) Comment on above: Performed By: #### R ESCVID #### [facility] [address] [place] [address] Parainfluenza 1 Not detected Normal Not Detected [facility] ([place]) Comment on above: Performed By: #### R ESCVID #### [facility] [address] [place] [address] Parainfluenza 2 Not detected Normal Not Detected [facility] ([place]) Comment on above: Performed By: #### R ESCVID #### [facility] [address] [place] [address] Parainfluenza 3 Detected Abnormal Not Detected [facility] ([place]) Comment on above: Performed By: #### R ESCVID #### [facility] [address] [place] [address] Parainfluenza 4 Not detected Normal Not Detected [facility] ([place]) Comment on above: Performed By: #### R ESCVID #### [facility] [address] [place] [address] Respiratory Syncytial Virus Not detected Normal Not Detected [facility] ([place]) Comment on above: Performed By: #### R ESCVID #### [facility] [address] [place] [address] Rhinovirus/Enterovirus Not detected Normal Not Detected [facility] ([place]) Comment on above: Performed By: #### R ESCVID #### [address] [address] SARS-CoV-2 (COVID-19) RNA ERMIAS+probe Ql (Unsp spec) Detected Abnormal Not Detected [facility] ([place]) Comment on above: Result Comment: This organism causes a reportable disease. Infection Control has been notified. Results have been reported to the [facility]. This test is being used under the FDA EUA procedure. This assay has been validated in the [facility] for use with nasopharyngeal specimens in [facility]. If a non-validated specimen or test collection method was used, please interpret the results with caution, especially if the test result is negative. A positive test result for COVID-19 indicates that RNA from SARS-CoV-2 was detected, and the patient is infected with the virus and presumed to be contagious. Laboratory test results should always be considered in the context of clinical observations and epidemiological data in making a final diagnosis and patient management decisions. Patient management should follow current CDC guidelines. A negative test result for this test means that SARS-CoV-2 RNA was not present in the specimen above the limit of detection. However, a negative result does not rule out COVID-19 and should not be used as the sole basis for treatment or patient management decisions. A negative result does not exclude the possibility of COVID-19. When diagnostic testing is negative, the possibility of a false negative result should be considered in the context of a patient's recent exposures and the presence of clinical signs and symptoms consistent with COVID-19. The possibility of a false negative result should especially be considered if the patient?s recent exposures or clinical presentation indicate that COVID-19 is likely, and diagnostic tests for other causes of illness (e.g., other respiratory illness) are negative. If COVID-19 is still suspected based on exposure history together with other clinical findings, re-testing should be considered by healthcare providers in consultation with public health authorities. Performed By: #### R ESCVID #### [facility] [address] [place] [address] PATHOLOGY REPORTS (OUTSIDE)o n 06-06-2022 [facility] Anaerobic cultureOrdered By: Dr. Wolfe on 05-29-2022 Bacteria identified Anaer cx Nom (Unsp spec) No growth in 5 days. [facility] Routine wound cultureOrdered By: Dr. Wolfe on 05-26-2022 Bacteria identified Cx Nom (Wound) No growth aerobically. [facility] Gram stain for investigation of transfusion reactionOrdered By: Dr. Wolfe on 05-25-2022 Microscopic observation Gram stain Nom (Unsp spec) [facility] No Panel InformationOrdered By: Dr. Ng on 05-23-2022 Troponin I High Sensitivity 6 pg/mL 3.0-54.0 [facility] Comment on above: Please Note: [place] t Units and Gender Specific Reference Ranges. For more information see Policy Stat Procedure [place] High Sensitivity Troponin (TNIH) and attachments. LABORATORYOrdered By: Valeriy Inman on 04-17-2021 Cholesterol [Mass/Vol] 262 mg/dL Invalid Interpretation Code 0 - 200 mg/dL AO ADM SS Cholesterol in HDL [Mass/Vol] 75 mg/dL Invalid Interpretation Code 40 - 60 mg/dL AO ADM SS Cholesterol in LDL [Mass/Vol] 160 mg/dL Invalid Interpretation Code 0 - 130 mg/dL AO ADM SS Glucose [Mass/Vol] 94 mg/dL Invalid Interpretation Code 70 - 105 mg/dL AO ADM SS Triglyceride [Mass/Vol] 133 mg/dL Invalid Interpretation Code 0 - 150 mg/dL AO ADM SS CNOVon 04-09-2017 CNOV Office Visit (UCWSTR) LISSETT STARK ([id number]) 1970 FDate Time Provider Ewdpgowxfk68/1/17 10:15 AM CAROLINA MCGREGOR) [facility] During your visit today, we recorded the following information about you: Temperature Pulse Respiration Blood pressure 97.9 degrees 68/minute 16/minute 122/78 Weight 98.4 kgCarolina Mcgregor CNP 04/09/2017 2:30 PM AddendumPatialexsander is a 47 year old female presenting with knee pain and muscle weakness.Knee PainPertinent negatives include no fever or tingling.Musculoskeletal ProblemPertinent negatives include no chills, fever, headaches, myalgias or rash.HPI Lissett Stark is a 47 year old female who presents today for CC of rightknee pain This started on Friday after using the elliptical She is alsohaving swelling in her right knee. Two weeks ago she noticed some swelling inher right foot, no bony tenderness able to ambulate without difficulty then,however since knee injury can only weight bear about 50%. Symptoms areworsened by walking She has tried ice and ibuprofen without relief. Riskfactors recent increase in activity/exercise trauma to knee PMH no injuries tokneesBP 122/78 Pulse 68 Temp 36.6 ?C (97.9 ?F) (Left Tympanic) Resp 16 Wt98.4 kg (217 lb)ALLERGIESNo Known AllergiesThere is no problem list on file for this patient.No family history on file.Social History Marital status: Single Spouse name: Years of education: Number of children:Social History Main Topics Smoking status: Never SmokerReview of SystemsConstitutional: Negative for chills, fever and malaise/fatigue.Musculoske letal: Positive for joint pain (right knee). Negative for myalgias.Skin: Negative for rash.Neurological: Negative for tingling and headaches.Physical ExamConstitutional: She is oriented to person, place, and time and well-developed,well-nouris hed, and in no distress. No distress.HENT:Head: Normocephalic and atraumatic.Eyes: Conjunctivae and EOM are normal. Pupils are equal, round, and reactive tolight.Neck: Normal range of motion. Neck supple.Pulmonary/Chest: Effort normal.Musculoskeletal: Right knee: She exhibits decreased range of motion and swelling. Sheexhibits no effusion, no ecchymosis, no deformity, no laceration, no erythema,normal alignment and no LCL laxity. Tenderness found. No medial joint line, nolateral joint line, no MCL, no LCL and no patellar tendon tenderness noted.Laxity and pain with drawer testNeurological: She is alert and oriented to person, place, and time.Skin: Skin is warm and dry.Psychiatric: Affect normal.Nursing note and vitals reviewed.Dania wrap applied to knee for comfort and support.ASSESSMENT/PLAN:1. Acute pain of right knee - ICD9: 719.46, ICD10: M25.561Rest, ice, elevation, DANIA wrap , pain medications as discussedTylenol or motrin/Advil/ibuprofen as needed for pain, advise medrol dose packFollow up with ortho for further evaluation and treatment if no improvementExercises given for knee strain- XR KNEE LIMITED 2V AP/LAT RT - interpreted by Kelly Camp MDIMPRESSION: Mild right knee osteoarthritis and minimal joint effusion.NGS: No dislocation, acute fracture or bone destruction. ?Right kneemild acquired narrowing of the medial femorotibial compartment, smallfemorotibial and patellofemoral osteophytes. ?No ossified bodies. ?Minimal fluid in the right suprapatellar bursa.Diagnosis and treatment plan were discussed and questions were answered to thepatient's satisfaction. Pt acknowledged understanding of concepts and follow upplan.Specific signs and symptoms that would indicate the need for higher level ofcare were discussed in detail warranting prompt ER evaluation.Blade Valentino CNP 04/09/2017 11:12 AM AddendumASSESSMENT/PLAN:1. Acute pain of right knee - ICD9: 719.46, ICD10: M25.561Rest, ice, elevation, DANIA wrap , pain medications as discussedTylenol or motrin/Advil/ibuprofen as needed for pain, advise medrol dose packFollow up with ortho for further evaluation and treatment if no improvementExercises given for knee strainTake pepcid twice a day while on steroids and anti inflammatories- XR KNEE LIMITED 2V AP/LAT RTMild osteoarthritis seen and joint effusionReferring Provider: SELF [200]Allergies As of Date: 04/09/2017(No Known Allergies)Date Reviewed: 04/09/2017Reviewed by: Carolina Mcgregor - Fully AssessedReason for Visit: Knee Pain [132] Cmt: x 3 days right knee pain Musculoskeletal Problem [69] Cmt: x 2 weeks top of right foot painful and swelling noted at timesPrimary Visit Diagnosis:Acute pain of right knee [M25.561]Order(s):XR KNEE LIMITED 2V AP/LAT RT [[id number]] Order #: [id number]. #:[id number] methylPREDNISolone (MEDROL, ARNIE,) 4 mg Dose-PackFollow dosing instructions, take with food.Disp: 1 PackageRfl: 0Prescriptions as of 04/09/2017 Sig: METHYLPREDNISOLONE 4 MG TABLE* Follow dosing instructions, t*Problem List As Of Date: 04/09/2017(None) Other instructions from your clinician: ASSESSMENT/PLAN: 1. Acute pain of right knee - ICD9: 719.46, ICD10: M25.561 Rest, ice, elevation, DANIA wrap , pain medications as discussed Tylenol or motrin/Advil/ibuprofen as needed for pain, advise medrol dose pack Follow up with ortho for further evaluation and treatment if no improvement Exercises given for knee strain Take pepcid twice a day while on steroids and anti inflammatories - XR KNEE LIMITED 2V AP/LAT RT Mild osteoarthritis seen and joint effusionPrescriptions ordered this encounter Disp Refills Start End METHYLPREDNISOLONE 4 MG TABLETS IN A* 1 Pa* 0 04/09/2017 04/15/2017 Sig: Follow dosing instructions, take with food.Letter Kvng Mcgregor CNP Urgent [id number] [facility] [id number]: [phone] Stakr577 [facility] [address]Ax Whom it May Concern:This is to certify that Lissett Stark was seen at our office for medicalcare. Lissett may return to school on 04.11.2017.If you have any questions please feel free to call.Sincerely:Carolina Mcgregor CNPEncounter Number: [id number] Status:Closed by CAROLINA MCGREGOR CNP on 04/09/17 Normal [facility] PROGRESSon 04-09-2017 PROGRESS HNO ID: [id number] thor: Kena Johnson (Rt) Geovanna Sotelo: (none)Author Type: TechnicianType: Progress NotesFiled: 04/09/2017 10:54 AMNote Text: Radiology Service Progress NotePATIENT NAME: Lissett YoudMRN: [id number] OF SERVICE: April 09, 2017TIME: 10:44 AMPATIENT IDENTITY VERIFICATION COMPLETED USING TWO (2) METHODS: Patientconfirmed name verbally and Date of .PATIENT GENDER DATA: Female. status: : NoBreastfeeding status: NO.PATIENT RELEVANT IMPLANT DATA REVIEWED: Not ApplicableRADIOLOGY DEPARTMENT: General X-ray: Exam(s) Completed: Lower ExtremityX-Ray(s): Knee, AP / LAT Right:PERIPHERAL IV DATA: Not applicableSIGNED BY: Kena Sotelo, RTNovember 2016 10:44 AM Normal [facility] PROGRESS HNO ID: [id number] thor: Carolina (Employee Relation Manager) FulkService: (none)Author Type: Nurse PractitionerType: Progress NotesFiled: 04/09/2017 2:30 PMNote Text:Patient is a 47 year old female presenting with knee pain and muscleweakness.Knee PainPertinent negatives include no fever or tingling.Musculoskeletal ProblemPertinent negatives include no chills, fever, headaches, myalgias or rash.HPI Lissett Stark is a 47 year old female who presents today for CC ofright knee pain This started on Friday after using the elliptical Sheis also having swelling in her right knee. Two weeks ago she noticed someswelling in her right foot, no bony tenderness able to ambulate withoutdifficulty then, however since knee injury can only weight bear about 50%. Symptoms are worsened by walking She has tried ice and ibuprofen withoutrelief. Risk factors recent increase in activity/exercise trauma to kneePMH no injuries to kneesBP 122/78 Pulse 68 Temp 36.6 ?C (97.9 ?F) (Left Tympanic) Resp 16 Wt 98.4 kg (217 lb)ALLERGIESNo Known AllergiesThere is no problem list on file for this patient.No family history on file.Social History Marital status: Single Spouse name: Years of education: Number of children:Social History Main Topics Smoking status: Never SmokerReview of SystemsConstitutional: Negative for chills, fever and malaise/fatigue.Musculoske letal: Positive for joint pain (right knee). Negative formyalgias.Skin: Negative for rash.Neurological: Negative for tingling and headaches.Physical ExamConstitutional: She is oriented to person, place, and time andwell-developed, well-nourished, and in no distress. No distress.HENT:Head: Normocephalic and atraumatic.Eyes: Conjunctivae and EOM are normal. Pupils are equal, round, andreactive to light.Neck: Normal range of motion. Neck supple.Pulmonary/Chest: Effort normal.Musculoskeletal: Right knee: She exhibits decreased range of motion and swelling. Sheexhibits no effusion, no ecchymosis, no deformity, no laceration, noerythema, normal alignment and no LCL laxity. Tenderness found. No medialjoint line, no lateral joint line, no MCL, no LCL and no patellar tendontenderness noted.Laxity and pain with drawer testNeurological: She is alert and oriented to person, place, and time.Skin: Skin is warm and dry.Psychiatric: Affect normal.Nursing note and vitals reviewed.Dania wrap applied to knee for comfort and support.ASSESSMENT/PLAN:1. Acute pain of right knee - ICD9: 719.46, ICD10: M25.561Rest, ice, elevation, DANIA wrap , pain medications as discussedTylenol or motrin/Advil/ibuprofen as needed for pain, advise medrol dosepackFollow up with ortho for further evaluation and treatment if noimprovementExercises given for knee strain- XR KNEE LIMITED 2V AP/LAT RT - interpreted by Kelly Camp MDIMPRESSION: Mild right knee osteoarthritis and minimal joint effusion.NGS: No dislocation, acute fracture or bone destruction. ?Right kneemild acquired narrowing of the medial femorotibial compartment, smallfemorotibial and patellofemoral osteophytes. ?No ossified bodies. ?Minimal fluid in the right suprapatellar bursa.Diagnosis and treatment plan were discussed and questions were answered tothe patient's satisfaction. Pt acknowledged understanding of concepts andfollow up plan.Specific signs and symptoms that would indicate the need for higher levelof care were discussed in detail warranting prompt ER evaluation.Carolina Mcgregor, BAR ROLLER Normal [facility] XR KNEE 2V AP/LAT RTon 04-09 XR KNEE 2V AP/LAT RT * * *Final Report* * *DATE OF EXAM: Apr 09 2017 10:54AM [id number] - XR KNEE 2V AP/LAT RT / REASON: Pain in right knee * * * * Physician Interpretation * * * * EXAM: XR KNEE 2V AP/LAT RTHISTORY: Pain in right knee .VIEWS: Bilateral standing AP, right knee lateral.COMPARISON: No relevant comparison.FINDINGS: No dislocation, acute fracture or bone destruction. Right knee mild acquired narrowing of the medial femorotibial compartment, small femorotibial and patellofemoral osteophytes. No ossified bodies. Minimal fluid in the right suprapatellar bursa.IMPRESSION: Mild right knee osteoarthritis and minimal joint effusion.Import Customs Clearing Agent: CHERRY Transcribe Date/Time: Apr 09 2017 10:59ADictated by : Gael CAMP MDThis examination was interpreted and the report reviewed and electronically signed by: Gael CAMP MD on Apr 09 2017 11:02AM [id number] Normal [facility] Anaerobic culture Bacteria identified Anaer cx Nom (Unsp spec) No growth in 5 days. [facility] Work Phone: Gram stain for investigation of transfusion reaction Microscopic observation Gram stain Nom (Unsp spec) [facility] Work Phone: Routine wound culture Bacteria identified Cx Nom (Wound) No growth aerobically. [facility] Work Phone: Vital Signs Date Time Vital Sign Value Performing Clinician Facility 11-25-2024 11:32-0400 Body height 172.72 cm Blue BERMUDEZ Work Phone: [facility] 11-25-2024 11:32-0400 Body mass index (BMI) [Ratio] 34.5 kg/m2 Blue BERMUDEZ Work Phone: [facility] 11-25-2024 11:32-0400 Body temperature 98.7 [degF] Blue BERMUDEZ Work Phone: [facility] 11-25-2024 11:32-0400 Body weight 103.19 kg Blue Wayt PA Work Phone: [facility] 11-25-2024 11:32-0400 Diastolic blood pressure 72 mm[Hg] Blue Wayt PA Work Phone: [facility] 11-25-2024 11:32-0400 Heart rate 79 /min Blue Wayt PA Work Phone: [facility] 11-25-2024 11:32-0400 Respiratory rate 18 /min Blue Wayt PA Work Phone: [facility] 11-25-2024 11:32-0400 SaO2% (BldA) [Mass fraction] 96 % Blue Wayt PA Work Phone: [facility] 11-25-2024 11:32-0400 Systolic blood pressure 130 mm[Hg] Blue Wayt PA Work Phone: [facility] 11-04-2024 15:04-0400 Diastolic blood pressure 58 mm[Hg] Blue Wayt PA Work Phone: [facility] 11-04-2024 15:04-0400 Heart rate 73 /min Blue Wayt PA Work Phone: [facility] 11-04-2024 15:04-0400 Respiratory rate 16 /min Blue Wayt PA Work Phone: [facility] 11-04-2024 15:04-0400 Systolic blood pressure 128 mm[Hg] Blue Wayt PA Work Phone: [facility] 11-04-2024 11:38-0400 Body height 172.72 cm Blue Wayt PA Work Phone: [facility] 11-04-2024 11:38-0400 Body mass index (BMI) [Ratio] 34.5 kg/m2 Blue Wayt PA Work Phone: [facility] 11-04-2024 11:38-0400 Body temperature 97.7 [degF] Blue Wayt PA Work Phone: [facility] 11-04-2024 11:38-0400 Body weight 102.99 kg Blue Wayt PA Work Phone: [facility] 11-04-2024 11:38-0400 Diastolic blood pressure 78 mm[Hg] Blue Wayt PA Work Phone: [facility] 11-04-2024 11:38-0400 Heart rate 80 /min Blue Wayt PA Work Phone: [facility] 11-04-2024 11:38-0400 Respiratory rate 18 /min Blue Wayt PA Work Phone: [facility] 11-04-2024 11:38-0400 SaO2% (BldA) [Mass fraction] 96 % Blue Wayt PA Work Phone: [facility] 11-04-2024 11:38-0400 Systolic blood pressure 134 mm[Hg] Blue Wayt PA Work Phone: [facility] 10-26-2024 11:12-0400 Body height 172.72 cm Blue Wayt PA Work Phone: [facility] 10-26-2024 11:12-0400 Body mass index (BMI) [Ratio] 34.7 kg/m2 Blue Wayt PA Work Phone: [facility] 10-26-2024 11:12-0400 Body temperature 98.5 [degF] Blue Wayt PA Work Phone: [facility] 10-26-2024 11:12-0400 Body weight 103.58 kg Blue Wayt PA Work Phone: [facility] 10-26-2024 11:12-0400 Diastolic blood pressure 82 mm[Hg] Blue Wayt PA Work Phone: [facility] 10-26-2024 11:12-0400 Heart rate 74 /min Blue Wayt PA Work Phone: [facility] 10-26-2024 11:12-0400 SaO2% (BldA) [Mass fraction] 95 % Blue Wayt PA Work Phone: [facility] 10-26-2024 11:12-0400 Systolic blood pressure 120 mm[Hg] Blue Wayt PA Work Phone: [facility] 10-14-2024 13:57-0400 Diastolic blood pressure 70 mm[Hg] Blue Wayt PA Work Phone: [facility] 10-14-2024 13:57-0400 Heart rate 92 /min Blue Wayt PA Work Phone: [facility] 10-14-2024 13:57-0400 Systolic blood pressure 112 mm[Hg] Blue Wayt PA Work Phone: [facility] 10-14-2024 10:06-0400 Body mass index (BMI) [Ratio] 34 kg/m2 Blue Wayt PA Work Phone: [facility] 10-14-2024 10:06-0400 Body temperature 98.4 [degF] Blue Wayt PA Work Phone: [facility] 10-14-2024 10:06-0400 Body weight 101.4 kg Blue Wayt PA Work Phone: [facility] 10-14-2024 10:06-0400 Diastolic blood pressure 78 mm[Hg] Blue Wayt PA Work Phone: [facility] 10-14-2024 10:06-0400 Heart rate 83 /min Blue Wayt PA Work Phone: [facility] 10-14-2024 10:06-0400 Respiratory rate 18 /min Blue Wayt PA Work Phone: [facility] 10-14-2024 10:06-0400 SaO2% (BldA) [Mass fraction] 98 % Blue Wayt PA Work Phone: [facility] 10-14-2024 10:06-0400 Systolic blood pressure 126 mm[Hg] Blue Wayt PA Work Phone: [facility] 09-23-2024 14:41-0400 Body temperature 97.7 [degF] Blue Wayt PA Work Phone: [facility] 09-23-2024 14:41-0400 Respiratory rate 16 /min Blue Wayt PA Work Phone: [facility] 09-23-2024 11:24-0400 Body mass index (BMI) [Ratio] 34.4 kg/m2 Blue Wayt PA Work Phone: [facility] 09-23-2024 11:24-0400 Body temperature 98.5 [degF] Blue Wayt PA Work Phone: [facility] 09-23-2024 11:24-0400 Body weight 102.71 kg Blue Wayt PA Work Phone: [facility] 09-23-2024 11:24-0400 Diastolic blood pressure 86 mm[Hg] Blue Wayt PA Work Phone: [facility] 09-23-2024 11:24-0400 Heart rate 76 /min Blue Wayt PA Work Phone: [facility] 09-23-2024 11:24-0400 Respiratory rate 18 /min Blue Wayt PA Work Phone: [facility] 09-23-2024 11:24-0400 SaO2% (BldA) [Mass fraction] 97 % Blue Wayt PA Work Phone: [facility] 09-23-2024 11:24-0400 Systolic blood pressure 130 mm[Hg] Blue Wayt PA Work Phone: [facility] 09-02-2024 14:34-0400 Body temperature 98.8 [degF] Maida Kim OUTREACH LIBRARIAN-C Work Phone: [facility] 09-02-2024 14:34-0400 Diastolic blood pressure 71 mm[Hg] Maida Kim OUTREACH LIBRARIAN-C Work Phone: [facility] 09-02-2024 14:34-0400 Heart rate 87 /min Maida Hanston OUTREACH LIBRARIAN-C Work Phone: [facility] 09-02-2024 14:34-0400 Respiratory rate 16 /min Maida Julio OUTREACH LIBRARIAN-C Work Phone: [facility] 09-02-2024 14:34-0400 SaO2% (BldA) [Mass fraction] 98 % Maida Hanston OUTREACH LIBRARIAN-C Work Phone: [facility] 09-02-2024 14:34-0400 Systolic blood pressure 134 mm[Hg] Maida Julio OUTREACH LIBRARIAN-C Work Phone: [facility] 09-02-2024 11:36-0400 Body height 172.72 cm Maida Hanston OUTREACH LIBRARIAN-C Work Phone: [facility] 09-02-2024 11:36-0400 Body temperature 98 [degF] Maida Julio OUTREACH LIBRARIAN-C Work Phone: [facility] 09-02-2024 11:36-0400 Diastolic blood pressure 72 mm[Hg] Maida Julio OUTREACH LIBRARIAN-C Work Phone: [facility] 09-02-2024 11:36-0400 Heart rate 86 /min Maida Hanston OUTREACH LIBRARIAN-C Work Phone: [facility] 09-02-2024 11:36-0400 Respiratory rate 18 /min Maida Hanston OUTREACH LIBRARIAN-C Work Phone: [facility] 09-02-2024 11:36-0400 SaO2% (BldA) [Mass fraction] 95 % Maida Julio OUTREACH LIBRARIAN-C Work Phone: [facility] 09-02-2024 11:36-0400 Systolic blood pressure 129 mm[Hg] Maida Hanston OUTREACH LIBRARIAN-C Work Phone: [facility] 08-12-2024 13:38-0500 Body temperature 98.5 [degF] Maida Julio OUTREACH LIBRARIAN-C Work Phone: [facility] 08-12-2024 13:38-0500 Diastolic blood pressure 70 mm[Hg] Maidanicky Clinemer OUTREACH LIBRARIAN-C Work Phone: [facility] 08-12-2024 13:38-0500 Heart rate 73 /min Maida Julio OUTREACH LIBRARIAN-C Work Phone: [facility] 08-12-2024 13:38-0500 Respiratory rate 16 /min Maida Julio OUTREACH LIBRARIAN-C Work Phone: [facility] 08-12-2024 13:38-0500 Systolic blood pressure 120 mm[Hg] Maida Julio OUTREACH LIBRARIAN-C Work Phone: [facility] 08-12-2024 10:18-0500 Body height 172.72 cm Maida Hanston OUTREACH LIBRARIAN-C Work Phone: [facility] 08-12-2024 10:18-0500 Body mass index (BMI) [Ratio] 34.7 kg/m2 Maidanicky Clinemer OUTREACH LIBRARIAN-C Work Phone: [facility] 08-12-2024 10:18-0500 Body temperature 98.6 [degF] Maida Clinemer OUTREACH LIBRARIAN-C Work Phone: [facility] 08-12-2024 10:18-0500 Body weight 103.61 kg Maidanicky Clinemer OUTREACH LIBRARIAN-C Work Phone: [facility] 08-12-2024 10:18-0500 Diastolic blood pressure 74 mm[Hg] Maida Clinemer OUTREACH LIBRARIAN-C Work Phone: [facility] 08-12-2024 10:18-0500 Heart rate 71 /min Maida Hanston OUTREACH LIBRARIAN-C Work Phone: [facility] 08-12-2024 10:18-0500 Respiratory rate 18 /min Maida Hanston OUTREACH LIBRARIAN-C Work Phone: [facility] 08-12-2024 10:18-0500 SaO2% (BldA) [Mass fraction] 97 % Maida Clinemer OUTREACH LIBRARIAN-C Work Phone: [facility] 08-12-2024 10:18-0500 Systolic blood pressure 118 mm[Hg] Maida Kim OUTREACH LIBRARIAN-C Work Phone: [facility] 07-22-2024 14:38-0500 SaO2% (BldA) [Mass fraction] 98 % Maidanicky Kim OUTREACH LIBRARIAN-C Work Phone: [facility] 07-22-2024 11:28-0500 Body mass index (BMI) [Ratio] 35.4 kg/m2 Maidanicky Clinemer OUTREACH LIBRARIAN-C Work Phone: [facility] 07-22-2024 11:28-0500 Body temperature 96.3 [degF] Maida Kim OUTREACH LIBRARIAN-C Work Phone: [facility] 07-22-2024 11:28-0500 Body weight 105.68 kg Maida Kim OUTREACH LIBRARIAN-C Work Phone: [facility] 07-22-2024 11:28-0500 Diastolic blood pressure 81 mm[Hg] Maidanicky Kim OUTREACH LIBRARIAN-C Work Phone: [facility] 07-22-2024 11:28-0500 Heart rate 83 /min Maidanicky Kim OUTREACH LIBRARIAN-C Work Phone: [facility] 07-22-2024 11:28-0500 Respiratory rate 16 /min Maida Kim OUTREACH LIBRARIAN-C Work Phone: [facility] 07-22-2024 11:28-0500 SaO2% (BldA) [Mass fraction] 98 % Maida Kim OUTREACH LIBRARIAN-C Work Phone: [facility] 07-22-2024 11:28-0500 Systolic blood pressure 131 mm[Hg] Maida Kim OUTREACH LIBRARIAN-C Work Phone: [facility] 07-01-2024 10:54-0500 Body mass index (BMI) [Ratio] 35.2 kg/m2 Maida Kim OUTREACH LIBRARIAN-C Work Phone: [facility] 07-01-2024 10:54-0500 Body temperature 98.4 [degF] Maidanicky Clinemer OUTREACH LIBRARIAN-C Work Phone: [facility] 07-01-2024 10:54-0500 Body weight 104.97 kg Maida Hanston OUTREACH LIBRARIAN-C Work Phone: [facility] 07-01-2024 10:54-0500 Diastolic blood pressure 74 mm[Hg] Maida Clinemer OUTREACH LIBRARIAN-C Work Phone: [facility] 07-01-2024 10:54-0500 Heart rate 74 /min Maida Julio OUTREACH LIBRARIAN-C Work Phone: [facility] 07-01-2024 10:54-0500 Respiratory rate 18 /min Maida Julio OUTREACH LIBRARIAN-C Work Phone: [facility] 07-01-2024 10:54-0500 SaO2% (BldA) [Mass fraction] 97 % Maida Hanston OUTREACH LIBRARIAN-C Work Phone: [facility] 07-01-2024 10:54-0500 Systolic blood pressure 131 mm[Hg] Miada Julio OUTREACH LIBRARIAN-C Work Phone: [facility] 06-16-2024 13:07-0500 Body mass index (BMI) [Ratio] 34.9 kg/m2 Maida Clinemer OUTREACH LIBRARIAN-C Work Phone: [facility] 06-16-2024 13:07-0500 Body temperature 97.6 [degF] Maida Clinemer OUTREACH LIBRARIAN-C Work Phone: [facility] 06-16-2024 13:07-0500 Body weight 104.32 kg Maida Kim OUTREACH LIBRARIAN-C Work Phone: [facility] 06-16-2024 13:07-0500 Diastolic blood pressure 87 mm[Hg] Maida Kim OUTREACH LIBRARIAN-C Work Phone: [facility] 06-16-2024 13:07-0500 Heart rate 74 /min Maida Hanston OUTREACH LIBRARIAN-C Work Phone: [facility] 06-16-2024 13:07-0500 Respiratory rate 18 /min Maida Julio OUTREACH LIBRARIAN-C Work Phone: [facility] 06-16-2024 13:07-0500 SaO2% (BldA) [Mass fraction] 98 % Maidanicky Clinemer OUTREACH LIBRARIAN-C Work Phone: [facility] 06-16-2024 13:07-0500 Systolic blood pressure 143 mm[Hg] Maida Hanston OUTREACH LIBRARIAN-C Work Phone: [facility] 06-15-2024 11:05-0500 Body temperature 97.8 [degF] Maida Julio OUTREACH LIBRARIAN-C Work Phone: [facility] 06-15-2024 11:05-0500 Diastolic blood pressure 73 mm[Hg] Maidanicky Kim OUTREACH LIBRARIAN-C Work Phone: [facility] 06-15-2024 11:05-0500 Heart rate 85 /min Maida Julio OUTREACH LIBRARIAN-C Work Phone: [facility] 06-15-2024 11:05-0500 Respiratory rate 18 /min Maida Hanston OUTREACH LIBRARIAN-C Work Phone: [facility] 06-15-2024 11:05-0500 SaO2% (BldA) [Mass fraction] 95 % Maidanicky Kim OUTREACH LIBRARIAN-C Work Phone: [facility] 06-15-2024 11:05-0500 Systolic blood pressure 124 mm[Hg] Maidanicky Clinemer OUTREACH LIBRARIAN-C Work Phone: [facility] 06-10-2024 11:15-0500 Body mass index (BMI) [Ratio] 35.4 kg/m2 Maidanicky Clinemer OUTREACH LIBRARIAN-C Work Phone: [facility] 06-10-2024 11:15-0500 Body temperature 98.9 [degF] Maida Clinemer OUTREACH LIBRARIAN-C Work Phone: [facility] 06-10-2024 11:15-0500 Body weight 105.74 kg Maidanicky Clinemer OUTREACH LIBRARIAN-C Work Phone: [facility] 06-10-2024 11:15-0500 Diastolic blood pressure 83 mm[Hg] Maidanicky Clinemer OUTREACH LIBRARIAN-C Work Phone: [facility] 06-10-2024 11:15-0500 Heart rate 80 /min Maidanicky Clinemer OUTREACH LIBRARIAN-C Work Phone: [facility] 06-10-2024 11:15-0500 Respiratory rate 18 /min Maida Julio OUTREACH LIBRARIAN-C Work Phone: [facility] 06-10-2024 11:15-0500 SaO2% (BldA) [Mass fraction] 94 % Maidanicky Kim OUTREACH LIBRARIAN-C Work Phone: [facility] 06-10-2024 11:15-0500 Systolic blood pressure 143 mm[Hg] Maida Clinemer OUTREACH LIBRARIAN-C Work Phone: [facility] 05-20-2024 11:11-0500 Body mass index (BMI) [Ratio] 34.9 kg/m2 Maida Clinemer OUTREACH LIBRARIAN-C Work Phone: [facility] 05-20-2024 11:11-0500 Body temperature 97.9 [degF] Maida Kim OUTREACH LIBRARIAN-C Work Phone: [facility] 05-20-2024 11:11-0500 Body weight 104.32 kg Maida Clinemer OUTREACH LIBRARIAN-C Work Phone: [facility] 05-20-2024 11:11-0500 Diastolic blood pressure 85 mm[Hg] Maida Kim OUTREACH LIBRARIAN-C Work Phone: [facility] 05-20-2024 11:11-0500 Heart rate 85 /min Maidanicky Kim OUTREACH LIBRARIAN-C Work Phone: [facility] 05-20-2024 11:11-0500 Respiratory rate 18 /min Maida Clinemer OUTREACH LIBRARIAN-C Work Phone: [facility] 05-20-2024 11:11-0500 SaO2% (BldA) [Mass fraction] 96 % Maida Hanston OUTREACH LIBRARIAN-C Work Phone: [facility] 05-20-2024 11:11-0500 Systolic blood pressure 136 mm[Hg] Maidanicky Kim OUTREACH LIBRARIAN-C Work Phone: [facility] 04-29-2024 11:31-0500 Body mass index (BMI) [Ratio] 34.7 kg/m2 Maidajeffrey Kim OUTREACH LIBRARIAN-C Work Phone: [facility] 04-29-2024 11:31-0500 Body temperature 98.5 [degF] Maida Julio OUTREACH LIBRARIAN-C Work Phone: [facility] 04-29-2024 11:31-0500 Body weight 103.58 kg Maidajeffrey Kim OUTREACH LIBRARIAN-C Work Phone: [facility] 04-29-2024 11:31-0500 Diastolic blood pressure 82 mm[Hg] Maida Julio OUTREACH LIBRARIAN-C Work Phone: [facility] 04-29-2024 11:31-0500 Heart rate 76 /min Maida Julio OUTREACH LIBRARIAN-C Work Phone: [facility] 04-29-2024 11:31-0500 Respiratory rate 16 /min Maidajeffrey Kim OUTREACH LIBRARIAN-C Work Phone: [facility] 04-29-2024 11:31-0500 SaO2% (BldA) [Mass fraction] 98 % Maida Julio OUTREACH LIBRARIAN-C Work Phone: [facility] 04-29-2024 11:31-0500 Systolic blood pressure 140 mm[Hg] Maidanicky Kim OUTREACH LIBRARIAN-C Work Phone: [facility] 10-28-2023 15:11-0400 Body mass index (BMI) [Ratio] 33.67 kg/m2 Gladis Rausch MD Work Phone: [facility] 10-28-2023 15:11-0400 Body weight 103.42 kg Gladis Rausch MD Work Phone: [facility] 10-28-2023 15:11-0400 Diastolic blood pressure 82 mm[Hg] Gladis Rausch MD Work Phone: [facility] 10-28-2023 15:11-0400 Heart rate 82 /min Gladis Rausch MD Work Phone: [facility] 10-28-2023 15:11-0400 Systolic blood pressure 133 mm[Hg] Gladis Rausch MD Work Phone: [facility] 10-10-2023 11:15-0400 Diastolic blood pressure 97 mm[Hg] Gladis Rausch MD Work Phone: [facility] 10-10-2023 11:15-0400 Heart rate 81 /min Gladis Rausch MD Work Phone: [facility] 10-10-2023 11:15-0400 Respiratory rate 19 /min Gladis Rausch MD Work Phone: [facility] 10-10-2023 11:15-0400 SaO2% (BldA) [Mass fraction] 96 % Gladis Rausch MD Work Phone: [facility] 10-10-2023 11:15-0400 Systolic blood pressure 122 mm[Hg] Gladis Rausch MD Work Phone: [facility] 10-10-2023 11:04-0400 Body temperature 98.1 [degF] Gladis Rausch MD Work Phone: [facility] 09-02-2023 16:06-0400 Body height 174 cm Gladis Rausch MD Work Phone: [facility] 09-02-2023 16:06-0400 Body mass index (BMI) [Ratio] 33.71 kg/m2 Gladis Rausch MD Work Phone: [facility] 09-02-2023 16:06-0400 Body weight 102.06 kg Gladis Rausch MD Work Phone: [facility] 09-02-2023 16:06-0400 Diastolic blood pressure 77 mm[Hg] Gladis Rausch MD Work Phone: [facility] 09-02-2023 16:06-0400 Heart rate 88 /min Gladis Rausch MD Work Phone: [facility] 09-02-2023 16:06-0400 Systolic blood pressure 120 mm[Hg] Gladis Rausch MD Work Phone: [facility] 08-12-2023 10:33-0500 Body mass index (BMI) [Ratio] 33.86 kg/m2 Nikko Giraldo MD Work Phone: [facility] 08-12-2023 10:33-0500 Body weight 102.51 kg Nikko Giraldo MD Work Phone: [facility] 08-12-2023 10:33-0500 Diastolic blood pressure 81 mm[Hg] Nikko Giraldo MD Work Phone: [facility] 08-12-2023 10:33-0500 Heart rate 88 /min Nikko Giraldo MD Work Phone: [facility] 08-12-2023 10:33-0500 Systolic blood pressure 150 mm[Hg] Nikko Giraldo MD Work Phone: [facility] 07-31-2023 16:44-0500 Diastolic blood pressure 71 mm[Hg] OUTREACH LIBRARIAN-C Maida Kim OUTREACH LIBRARIAN Work Phone: [facility] 07-31-2023 16:44-0500 Heart rate 79 /min OUTREACH LIBRARIAN-C Maida Kim OUTREACH LIBRARIAN Work Phone: [facility] 07-31-2023 16:44-0500 Respiratory rate 16 /min OUTREACH LIBRARIAN-C Maida Kim OUTREACH LIBRARIAN Work Phone: [facility] 07-31-2023 16:44-0500 SaO2% (BldA) [Mass fraction] 97 % OUTREACH LIBRARIAN-C Maida Kim OUTREACH LIBRARIAN Work Phone: [facility] 07-31-2023 16:44-0500 Systolic blood pressure 128 mm[Hg] OUTREACH LIBRARIAN-C Maida Kim OUTREACH LIBRARIAN Work Phone: [facility] 07-31-2023 13:07-0500 Body height 172.72 cm OUTREACH LIBRARIAN-C Maida Kim OUTREACH LIBRARIAN Work Phone: [facility] 07-31-2023 13:07-0500 Body mass index (BMI) [Ratio] 34.5 kg/m2 OUTREACH LIBRARIAN-C Maida Kim OUTREACH LIBRARIAN Work Phone: [facility] 07-31-2023 13:07-0500 Body temperature 98.2 [degF] OUTREACH LIBRARIAN-C Maida Kim OUTREACH LIBRARIAN Work Phone: [facility] 07-31-2023 13:07-0500 Body weight 103.1 kg OUTREACH LIBRARIAN-C Maida Kim OUTREACH LIBRARIAN Work Phone: [facility] 07-31-2023 13:07-0500 Diastolic blood pressure 78 mm[Hg] OUTREACH LIBRARIAN-C Maida Kim OUTREACH LIBRARIAN Work Phone: [facility] 07-31-2023 13:07-0500 Heart rate 77 /min OUTREACH LIBRARIAN-C Maida Kim OUTREACH LIBRARIAN Work Phone: [facility] 07-31-2023 13:07-0500 Respiratory rate 18 /min OUTREACH LIBRARIAN-C Maida Kim OUTREACH LIBRARIAN Work Phone: [facility] 07-31-2023 13:07-0500 SaO2% (BldA) [Mass fraction] 97 % OUTREACH LIBRARIAN-C Maida Kim OUTREACH LIBRARIAN Work Phone: [facility] 07-31-2023 13:07-0500 Systolic blood pressure 132 mm[Hg] OUTREACH LIBRARIAN-C Maida Kim OUTREACH LIBRARIAN Work Phone: [facility] 07-10-2023 16:30-0500 Body temperature 98.1 [degF] OUTREACH LIBRARIAN-C Maida Kim OUTREACH LIBRARIAN Work Phone: [facility] 07-10-2023 13:07-0500 Body mass index (BMI) [Ratio] 35.2 kg/m2 OUTREACH LIBRARIAN-C Maida Julio OUTREACH LIBRARIAN Work Phone: [facility] 06-26-2023 13:10-0500 Body mass index (BMI) [Ratio] 34.3 kg/m2 OUTREACH LIBRARIAN-C Maida Julio OUTREACH LIBRARIAN Work Phone: [facility] 06-26-2023 13:10-0500 Body temperature 98.5 [degF] OUTREACH LIBRARIAN-C Maida Julio OUTREACH LIBRARIAN Work Phone: [facility] 06-26-2023 13:10-0500 Body weight 102.54 kg OUTREACH LIBRARIAN-C Maida Hanston OUTREACH LIBRARIAN Work Phone: [facility] 06-26-2023 13:10-0500 Diastolic blood pressure 88 mm[Hg] OUTREACH LIBRARIAN-C Maida Hanston OUTREACH LIBRARIAN Work Phone: [facility] 06-26-2023 13:10-0500 Heart rate 82 /min OUTREACH LIBRARIAN-C Maida Hanston OUTREACH LIBRARIAN Work Phone: [facility] 06-26-2023 13:10-0500 Respiratory rate 18 /min OUTREACH LIBRARIAN-C Maida Hanston OUTREACH LIBRARIAN Work Phone: [facility] 06-26-2023 13:10-0500 SaO2% (BldA) [Mass fraction] 98 % OUTREACH LIBRARIAN-C Maida Kim OUTREACH LIBRARIAN Work Phone: [facility] 06-26-2023 13:10-0500 Systolic blood pressure 139 mm[Hg] OUTREACH LIBRARIAN-C Maida Julio OUTREACH LIBRARIAN Work Phone: [facility] 06-20-2023 11:09-0500 Body mass index (BMI) [Ratio] 34.8 kg/m2 OUTREACH LIBRARIAN-C Maida Hanston OUTREACH LIBRARIAN Work Phone: [facility] 06-20-2023 11:09-0500 Body temperature 98 [degF] OUTREACH LIBRARIAN-C Maida Julio OUTREACH LIBRARIAN Work Phone: [facility] 06-20-2023 11:09-0500 Body weight 103.87 kg OUTREACH LIBRARIAN-C Maida Julio OUTREACH LIBRARIAN Work Phone: [facility] 06-20-2023 11:09-0500 Diastolic blood pressure 83 mm[Hg] OUTREACH LIBRARIAN-C Maida Hanston OUTREACH LIBRARIAN Work Phone: [facility] 06-20-2023 11:09-0500 Heart rate 74 /min OUTREACH LIBRARIAN-C Maida Julio OUTREACH LIBRARIAN Work Phone: [facility] 06-20-2023 11:09-0500 Respiratory rate 18 /min OUTREACH LIBRARIAN-C Maida Julio OUTREACH LIBRARIAN Work Phone: [facility] 06-20-2023 11:09-0500 SaO2% (BldA) [Mass fraction] 98 % OUTREACH LIBRARIAN-C Maida Julio OUTREACH LIBRARIAN Work Phone: [facility] 06-20-2023 11:09-0500 Systolic blood pressure 138 mm[Hg] OUTREACH LIBRARIAN-C Maida Hanston OUTREACH LIBRARIAN Work Phone: [facility] 06-05-2023 13:17-0500 Body mass index (BMI) [Ratio] 34.4 kg/m2 OUTREACH LIBRARIAN-C Maida Julio OUTREACH LIBRARIAN Work Phone: [facility] 06-05-2023 13:17-0500 Body temperature 98.7 [degF] OUTREACH LIBRARIAN-C Maida Hanston OUTREACH LIBRARIAN Work Phone: [facility] 06-05-2023 13:17-0500 Body weight 102.71 kg OUTREACH LIBRARIAN-C Maida Julio OUTREACH LIBRARIAN Work Phone: [facility] 06-05-2023 13:17-0500 Diastolic blood pressure 78 mm[Hg] OUTREACH LIBRARIAN-C Maida Hanston OUTREACH LIBRARIAN Work Phone: [facility] 06-05-2023 13:17-0500 Heart rate 77 /min OUTREACH LIBRARIAN-C Maida Julio OUTREACH LIBRARIAN Work Phone: [facility] 06-05-2023 13:17-0500 Respiratory rate 18 /min OUTREACH LIBRARIAN-C Maida Kim OUTREACH LIBRARIAN Work Phone: [facility] 06-05-2023 13:17-0500 SaO2% (BldA) [Mass fraction] 99 % OUTREACH LIBRARIAN-C Maida Clinemer OUTREACH LIBRARIAN Work Phone: [facility] 06-05-2023 13:17-0500 Systolic blood pressure 132 mm[Hg] OUTREACH LIBRARIAN-C Maida Clinemer OUTREACH LIBRARIAN Work Phone: [facility] 05-15-2023 13:06-0500 Body mass index (BMI) [Ratio] 34.2 kg/m2 OUTREACH LIBRARIAN-C Maida Clinemer OUTREACH LIBRARIAN Work Phone: [facility] 05-15-2023 13:06-0500 Body temperature 99.1 [degF] OUTREACH LIBRARIAN-C Maida Clinemer OUTREACH LIBRARIAN Work Phone: [facility] 05-15-2023 13:06-0500 Body weight 102.14 kg OUTREACH LIBRARIAN-C Maida Clinemer OUTREACH LIBRARIAN Work Phone: [facility] 05-15-2023 13:06-0500 Diastolic blood pressure 82 mm[Hg] OUTREACH LIBRARIAN-C Maida Clinemer OUTREACH LIBRARIAN Work Phone: [facility] 05-15-2023 13:06-0500 Heart rate 78 /min OUTREACH LIBRARIAN-C Maida Clinemer OUTREACH LIBRARIAN Work Phone: [facility] 05-15-2023 13:06-0500 Respiratory rate 18 /min OUTREACH LIBRARIAN-C Maida Kim OUTREACH LIBRARIAN Work Phone: [facility] 05-15-2023 13:06-0500 SaO2% (BldA) [Mass fraction] 96 % OUTREACH LIBRARIAN-C Maida Clinemer OUTREACH LIBRARIAN Work Phone: [facility] 05-15-2023 13:06-0500 Systolic blood pressure 142 mm[Hg] OUTREACH LIBRARIAN-C Maida Clinemer OUTREACH LIBRARIAN Work Phone: [facility] 05-13-2023 08:40-0500 Body mass index (BMI) [Ratio] 34.01 kg/m2 Nikko Giraldo MD Work Phone: [facility] 05-13-2023 08:40-0500 Body weight 102.97 kg Nikko Giraldo MD Work Phone: [facility] 05-13-2023 08:40-0500 Diastolic blood pressure 84 mm[Hg] Nikko Giraldo MD Work Phone: [facility] 05-13-2023 08:40-0500 Heart rate 85 /min Nikko Giraldo MD Work Phone: [facility] 05-13-2023 08:40-0500 Systolic blood pressure 148 mm[Hg] Nikko Giraldo MD Work Phone: [facility] 04-24-2023 17:11-0500 Body temperature 97.7 [degF] OUTREACH LIBRARIAN-C Maida Kim OUTREACH LIBRARIAN Work Phone: [facility] 04-24-2023 17:11-0500 Diastolic blood pressure 56 mm[Hg] OUTREACH LIBRARIAN-C Maida Kim OUTREACH LIBRARIAN Work Phone: [facility] 04-24-2023 17:11-0500 Heart rate 76 /min OUTREACH LIBRARIAN-C Maida Kim OUTREACH LIBRARIAN Work Phone: [facility] 04-24-2023 17:11-0500 Respiratory rate 16 /min OUTREACH LIBRARIAN-C Maida Kim OUTREACH LIBRARIAN Work Phone: [facility] 04-24-2023 17:11-0500 SaO2% (BldA) [Mass fraction] 100 % OUTREACH LIBRARIAN-C Maida Kim OUTREACH LIBRARIAN Work Phone: [facility] 04-24-2023 17:11-0500 Systolic blood pressure 129 mm[Hg] OUTREACH LIBRARIAN-C Maida Kim OUTREACH LIBRARIAN Work Phone: [facility] 04-24-2023 13:00-0500 Body height 172.72 cm OUTREACH LIBRARIAN-C Maida Kim OUTREACH LIBRARIAN Work Phone: [facility] 04-24-2023 13:00-0500 Body mass index (BMI) [Ratio] 33.9 kg/m2 OUTREACH LIBRARIAN-C Maida Kim OUTREACH LIBRARIAN Work Phone: [facility] 04-24-2023 13:00-0500 Body temperature 98.7 [degF] OUTREACH LIBRARIAN-C Maida Kim OUTREACH LIBRARIAN Work Phone: [facility] 04-24-2023 13:00-0500 Body weight 101.23 kg OUTREACH LIBRARIAN-C Maida Kim OUTREACH LIBRARIAN Work Phone: [facility] 04-24-2023 13:00-0500 Diastolic blood pressure 87 mm[Hg] OUTREACH LIBRARIAN-C Maida Kim OUTREACH LIBRARIAN Work Phone: [facility] 04-24-2023 13:00-0500 Heart rate 79 /min OUTREACH LIBRARIAN-C Maida Kim OUTREACH LIBRARIAN Work Phone: [facility] 04-24-2023 13:00-0500 Respiratory rate 18 /min OUTREACH LIBRARIAN-C Maida Kim OUTREACH LIBRARIAN Work Phone: [facility] 04-24-2023 13:00-0500 SaO2% (BldA) [Mass fraction] 97 % OUTREACH LIBRARIAN-C Maida Kim OUTREACH LIBRARIAN Work Phone: [facility] 04-24-2023 13:00-0500 Systolic blood pressure 134 mm[Hg] OUTREACH LIBRARIAN-C Maida Kim OUTREACH LIBRARIAN Work Phone: [facility] 04-03-2023 13:01-0400 Body mass index (BMI) [Ratio] 34.1 kg/m2 OUTREACH LIBRARIAN-C Maida Kim OUTREACH LIBRARIAN Work Phone: [facility] 04-03-2023 13:01-0400 Body temperature 98.4 [degF] OUTREACH LIBRARIAN-C Maida Kim OUTREACH LIBRARIAN Work Phone: [facility] 04-03-2023 13:01-0400 Body weight 101.85 kg OUTREACH LIBRARIAN-C Maida Kim OUTREACH LIBRARIAN Work Phone: [facility] 04-03-2023 13:01-0400 Diastolic blood pressure 86 mm[Hg] OUTREACH LIBRARIAN-C Maida Julio OUTREACH LIBRARIAN Work Phone: [facility] 04-03-2023 13:01-0400 Heart rate 83 /min OUTREACH LIBRARIAN-C Maida Hanston OUTREACH LIBRARIAN Work Phone: [facility] 04-03-2023 13:01-0400 Respiratory rate 18 /min OUTREACH LIBRARIAN-C Maida Hanston OUTREACH LIBRARIAN Work Phone: [facility] 04-03-2023 13:01-0400 SaO2% (BldA) [Mass fraction] 96 % OUTREACH LIBRARIAN-C Madia Julio OUTREACH LIBRARIAN Work Phone: [facility] 04-03-2023 13:01-0400 Systolic blood pressure 142 mm[Hg] OUTREACH LIBRARIAN-C Maida Julio OUTREACH LIBRARIAN Work Phone: [facility] 03-13-2023 16:33-0400 Body temperature 97.8 [degF] OUTREACH LIBRARIAN-C Maida Julio OUTREACH LIBRARIAN Work Phone: [facility] 03-13-2023 16:33-0400 Diastolic blood pressure 79 mm[Hg] OUTREACH LIBRARIAN-C Maida Hanston OUTREACH LIBRARIAN Work Phone: [facility] 03-13-2023 16:33-0400 Heart rate 73 /min OUTREACH LIBRARIAN-C Maida Hanston OUTREACH LIBRARIAN Work Phone: [facility] 03-13-2023 16:33-0400 Respiratory rate 16 /min OUTREACH LIBRARIAN-C Maida Hanston OUTREACH LIBRARIAN Work Phone: [facility] 03-13-2023 16:33-0400 SaO2% (BldA) [Mass fraction] 97 % OUTREACH LIBRARIAN-C Maida Julio OUTREACH LIBRARIAN Work Phone: [facility] 03-13-2023 16:33-0400 Systolic blood pressure 136 mm[Hg] OUTREACH LIBRARIAN-C Maida Julio OUTREACH LIBRARIAN Work Phone: [facility] 03-13-2023 13:47-0400 Body height 172.72 cm OUTREACH LIBRARIAN-C Maida Julio OUTREACH LIBRARIAN Work Phone: [facility] 03-13-2023 12:55-0400 Body mass index (BMI) [Ratio] 33.8 kg/m2 OUTREACH LIBRARIAN-C Maida Hanston OUTREACH LIBRARIAN Work Phone: [facility] 03-13-2023 12:55-0400 Body temperature 98.6 [degF] OUTREACH LIBRARIAN-C Maida Julio OUTREACH LIBRARIAN Work Phone: [facility] 03-13-2023 12:55-0400 Body weight 100.89 kg OUTREACH LIBRARIAN-C Maida Julio OUTREACH LIBRARIAN Work Phone: [facility] 03-13-2023 12:55-0400 Diastolic blood pressure 82 mm[Hg] OUTREACH LIBRARIAN-C Maida Julio OUTREACH LIBRARIAN Work Phone: [facility] 03-13-2023 12:55-0400 Heart rate 82 /min OUTREACH LIBRARIAN-C Maida Julio OUTREACH LIBRARIAN Work Phone: [facility] 03-13-2023 12:55-0400 Respiratory rate 18 /min OUTREACH LIBRARIAN-C Maida Julio OUTREACH LIBRARIAN Work Phone: [facility] 03-13-2023 12:55-0400 SaO2% (BldA) [Mass fraction] 95 % OUTREACH LIBRARIAN-C Maida Julio OUTREACH LIBRARIAN Work Phone: [facility] 03-13-2023 12:55-0400 Systolic blood pressure 126 mm[Hg] OUTREACH LIBRARIAN-C Maida Julio OUTREACH LIBRARIAN Work Phone: [facility] 02-13-2023 13:16-0400 Body mass index (BMI) [Ratio] 38.3 kg/m2 OUTREACH LIBRARIAN-C Maida Julio OUTREACH LIBRARIAN Work Phone: [facility] 02-13-2023 13:16-0400 Body temperature 98.4 [degF] OUTREACH LIBRARIAN-C Maida Clinemer OUTREACH LIBRARIAN Work Phone: [facility] 02-13-2023 13:16-0400 Body weight 101.4 kg OUTREACH LIBRARIAN-C Maida Clinemer OUTREACH LIBRARIAN Work Phone: [facility] 02-13-2023 13:16-0400 Diastolic blood pressure 76 mm[Hg] OUTREACH LIBRARIAN-C Maida Julio OUTREACH LIBRARIAN Work Phone: [facility] 02-13-2023 13:16-0400 Heart rate 70 /min OUTREACH LIBRARIAN-C Maida Hanston OUTREACH LIBRARIAN Work Phone: [facility] 02-13-2023 13:16-0400 Respiratory rate 18 /min OUTREACH LIBRARIAN-C Maida Kim OUTREACH LIBRARIAN Work Phone: [facility] 02-13-2023 13:16-0400 SaO2% (BldA) [Mass fraction] 96 % OUTREACH LIBRARIAN-C Maida Kim OUTREACH LIBRARIAN Work Phone: [facility] 02-13-2023 13:16-0400 Systolic blood pressure 131 mm[Hg] OUTREACH LIBRARIAN-C Maida Kim OUTREACH LIBRARIAN Work Phone: [facility] 01-23-2023 16:13-0400 Diastolic blood pressure 61 mm[Hg] OUTREACH LIBRARIAN-C Maida Julio OUTREACH LIBRARIAN Work Phone: [facility] 01-23-2023 16:13-0400 Heart rate 70 /min OUTREACH LIBRARIAN-C Madia Julio OUTREACH LIBRARIAN Work Phone: [facility] 01-23-2023 16:13-0400 Systolic blood pressure 123 mm[Hg] OUTREACH LIBRARIAN-C Maida Kim OUTREACH LIBRARIAN Work Phone: [facility] 01-23-2023 12:58-0400 Body height 162.56 cm OUTREACH LIBRARIAN-C Maida Kim OUTREACH LIBRARIAN Work Phone: [facility] 01-23-2023 12:53-0400 Body mass index (BMI) [Ratio] 38.8 kg/m2 OUTREACH LIBRARIAN-C Maida Kim OUTREACH LIBRARIAN Work Phone: [facility] 01-23-2023 12:53-0400 Body temperature 98.8 [degF] OUTREACH LIBRARIAN-C Maida Kim OUTREACH LIBRARIAN Work Phone: [facility] 01-23-2023 12:53-0400 Body weight 102.65 kg OUTREACH LIBRARIAN-C Maida Julio OUTREACH LIBRARIAN Work Phone: [facility] 01-23-2023 12:53-0400 Diastolic blood pressure 76 mm[Hg] OUTREACH LIBRARIAN-C Maida Hanston OUTREACH LIBRARIAN Work Phone: [facility] 01-23-2023 12:53-0400 Heart rate 84 /min OUTREACH LIBRARIAN-C Maida Julio OUTREACH LIBRARIAN Work Phone: [facility] 01-23-2023 12:53-0400 Respiratory rate 18 /min OUTREACH LIBRARIAN-C Maida Hanston OUTREACH LIBRARIAN Work Phone: [facility] 01-23-2023 12:53-0400 SaO2% (BldA) [Mass fraction] 96 % OUTREACH LIBRARIAN-C Maida Julio OUTREACH LIBRARIAN Work Phone: [facility] 01-23-2023 12:53-0400 Systolic blood pressure 126 mm[Hg] OUTREACH LIBRARIAN-C Maida Kim OUTREACH LIBRARIAN Work Phone: [facility] 01-02-2023 16:56-0400 Respiratory rate 14 /min OUTREACH LIBRARIAN-C Maida Julio OUTREACH LIBRARIAN Work Phone: [facility] 01-02-2023 16:56-0400 SaO2% (BldA) [Mass fraction] 100 % OUTREACH LIBRARIAN-C Maida Kim OUTREACH LIBRARIAN Work Phone: [facility] 01-02-2023 13:03-0400 Body mass index (BMI) [Ratio] 38.9 kg/m2 OUTREACH LIBRARIAN-C Maida Kim OUTREACH LIBRARIAN Work Phone: [facility] 01-02-2023 13:03-0400 Body temperature 98.2 [degF] OUTREACH LIBRARIAN-C Maida Kim OUTREACH LIBRARIAN Work Phone: [facility] 01-02-2023 13:03-0400 Body weight 103.07 kg OUTREACH LIBRARIAN-C Maida Kim OUTREACH LIBRARIAN Work Phone: [facility] 01-02-2023 13:03-0400 Diastolic blood pressure 74 mm[Hg] OUTREACH LIBRARIAN-C Maida Hanston OUTREACH LIBRARIAN Work Phone: [facility] 01-02-2023 13:03-0400 Heart rate 74 /min OUTREACH LIBRARIAN-C Maida Hanston OUTREACH LIBRARIAN Work Phone: [facility] 01-02-2023 13:03-0400 Respiratory rate 16 /min OUTREACH LIBRARIAN-C Maida Julio OUTREACH LIBRARIAN Work Phone: [facility] 01-02-2023 13:03-0400 SaO2% (BldA) [Mass fraction] 96 % OUTREACH LIBRARIAN-C Maida Julio OUTREACH LIBRARIAN Work Phone: [facility] 01-02-2023 13:03-0400 Systolic blood pressure 128 mm[Hg] OUTREACH LIBRARIAN-C Maida Hanston OUTREACH LIBRARIAN Work Phone: [facility] 12-19-2022 16:05-0400 Body mass index (BMI) [Ratio] 39 kg/m2 OUTREACH LIBRARIAN-C Maida Julio OUTREACH LIBRARIAN Work Phone: [facility] 12-19-2022 16:05-0400 Body temperature 97 [degF] OUTREACH LIBRARIAN-C Maida Julio OUTREACH LIBRARIAN Work Phone: [facility] 12-19-2022 16:05-0400 Body weight 103.19 kg OUTREACH LIBRARIAN-C Maida Hanston OUTREACH LIBRARIAN Work Phone: [facility] 12-19-2022 16:05-0400 Diastolic blood pressure 79 mm[Hg] OUTREACH LIBRARIAN-C Maida Hanston OUTREACH LIBRARIAN Work Phone: [facility] 12-19-2022 16:05-0400 Heart rate 87 /min OUTREACH LIBRARIAN-C Maida Hanston OUTREACH LIBRARIAN Work Phone: [facility] 12-19-2022 16:05-0400 Respiratory rate 16 /min OUTREACH LIBRARIAN-C Maida Julio OUTREACH LIBRARIAN Work Phone: [facility] 12-19-2022 16:05-0400 SaO2% (BldA) [Mass fraction] 97 % OUTREACH LIBRARIAN-C Maida Hanston OUTREACH LIBRARIAN Work Phone: [facility] 12-19-2022 16:05-0400 Systolic blood pressure 143 mm[Hg] OUTREACH LIBRARIAN-C Maida Kim OUTREACH LIBRARIAN Work Phone: [facility] 12-12-2022 16:32-0400 Body temperature 97 [degF] OUTREACH LIBRARIAN-C Maida Kim OUTREACH LIBRARIAN Work Phone: [facility] 12-12-2022 13:05-0400 Body mass index (BMI) [Ratio] 38.6 kg/m2 OUTREACH LIBRARIAN-C Maida Kim OUTREACH LIBRARIAN Work Phone: [facility] 12-12-2022 13:05-0400 Body temperature 97.6 [degF] OUTREACH LIBRARIAN-C Maida Kim OUTREACH LIBRARIAN Work Phone: [facility] 12-12-2022 13:05-0400 Body weight 102.05 kg OUTREACH LIBRARIAN-C Maida Kim OUTREACH LIBRARIAN Work Phone: [facility] 12-12-2022 13:05-0400 Diastolic blood pressure 75 mm[Hg] OUTREACH LIBRARIAN-C Maida Kim OUTREACH LIBRARIAN Work Phone: [facility] 12-12-2022 13:05-0400 Heart rate 80 /min OUTREACH LIBRARIAN-C Maida Kim OUTREACH LIBRARIAN Work Phone: [facility] 12-12-2022 13:05-0400 Respiratory rate 18 /min OUTREACH LIBRARIAN-C Maida Kim OUTREACH LIBRARIAN Work Phone: [facility] 12-12-2022 13:05-0400 SaO2% (BldA) [Mass fraction] 98 % OUTREACH LIBRARIAN-C Maida Kim OUTREACH LIBRARIAN Work Phone: [facility] 12-12-2022 13:05-0400 Systolic blood pressure 125 mm[Hg] OUTREACH LIBRARIAN-C Maida Kim OUTREACH LIBRARIAN Work Phone: [facility] 11-21-2022 16:11-0400 Body temperature 97 [degF] OUTREACH LIBRARIAN-C Maida Kim OUTREACH LIBRARIAN Work Phone: [facility] 11-21-2022 16:11-0400 Diastolic blood pressure 55 mm[Hg] OUTREACH LIBRARIAN-C Maida Julio OUTREACH LIBRARIAN Work Phone: [facility] 11-21-2022 16:11-0400 Heart rate 77 /min OUTREACH LIBRARIAN-C Maida Julio OUTREACH LIBRARIAN Work Phone: [facility] 11-21-2022 16:11-0400 Respiratory rate 16 /min OUTREACH LIBRARIAN-C Maida Julio OUTREACH LIBRARIAN Work Phone: [facility] 11-21-2022 16:11-0400 SaO2% (BldA) [Mass fraction] 98 % OUTREACH LIBRARIAN-C Maida Kim OUTREACH LIBRARIAN Work Phone: [facility] 11-21-2022 16:11-0400 Systolic blood pressure 118 mm[Hg] OUTREACH LIBRARIAN-C Maida Kim OUTREACH LIBRARIAN Work Phone: [facility] 11-21-2022 13:49-0400 Body height 162.56 cm OUTREACH LIBRARIAN-C Maida Kim OUTREACH LIBRARIAN Work Phone: [facility] 11-21-2022 13:49-0400 Body mass index (BMI) [Ratio] 39.4 kg/m2 OUTREACH LIBRARIAN-C Maida Kim OUTREACH LIBRARIAN Work Phone: [facility] 11-21-2022 13:49-0400 Body weight 104.41 kg OUTREACH LIBRARIAN-C Maida Kim OUTREACH LIBRARIAN Work Phone: [facility] 11-21-2022 13:02-0400 Body mass index (BMI) [Ratio] 39.4 kg/m2 OUTREACH LIBRARIAN-C Maida Kim OUTREACH LIBRARIAN Work Phone: [facility] 11-21-2022 13:02-0400 Body temperature 98.3 [degF] OUTREACH LIBRARIAN-C Maida Kim OUTREACH LIBRARIAN Work Phone: [facility] 11-21-2022 13:02-0400 Body weight 104.41 kg OUTREACH LIBRARIAN-C Maida Kim OUTREACH LIBRARIAN Work Phone: [facility] 11-21-2022 13:02-0400 Diastolic blood pressure 73 mm[Hg] OUTREACH LIBRARIAN-C Maida Kim OUTREACH LIBRARIAN Work Phone: [facility] 11-21-2022 13:02-0400 Heart rate 81 /min OUTREACH LIBRARIAN-C Maida Hanston OUTREACH LIBRARIAN Work Phone: [facility] 11-21-2022 13:02-0400 Respiratory rate 16 /min OUTREACH LIBRARIAN-C Maida Clinemer OUTREACH LIBRARIAN Work Phone: [facility] 11-21-2022 13:02-0400 SaO2% (BldA) [Mass fraction] 95 % OUTREACH LIBRARIAN-C Maida Kim OUTREACH LIBRARIAN Work Phone: [facility] 11-21-2022 13:02-0400 Systolic blood pressure 134 mm[Hg] OUTREACH LIBRARIAN-C Maida Kim OUTREACH LIBRARIAN Work Phone: [facility] 10-31-2022 16:45-0400 Body temperature 97.7 [degF] OUTREACH LIBRARIAN-C Maida Kim OUTREACH LIBRARIAN Work Phone: [facility] 10-31-2022 16:45-0400 Diastolic blood pressure 56 mm[Hg] OUTREACH LIBRARIAN-C Maida Kim OUTREACH LIBRARIAN Work Phone: [facility] 10-31-2022 16:45-0400 Heart rate 85 /min OUTREACH LIBRARIAN-C Maida Kim OUTREACH LIBRARIAN Work Phone: [facility] 10-31-2022 16:45-0400 Respiratory rate 16 /min OUTREACH LIBRARIAN-C Maida Kim OUTREACH LIBRARIAN Work Phone: [facility] 10-31-2022 16:45-0400 Systolic blood pressure 119 mm[Hg] OUTREACH LIBRARIAN-C Maida Julio OUTREACH LIBRARIAN Work Phone: [facility] 10-31-2022 13:50-0400 Body height 162.56 cm OUTREACH LIBRARIAN-C Maida Kim OUTREACH LIBRARIAN Work Phone: [facility] 10-31-2022 13:50-0400 Body mass index (BMI) [Ratio] 41.4 kg/m2 OUTREACH LIBRARIAN-C Maida Julio OUTREACH LIBRARIAN Work Phone: [facility] 10-31-2022 13:50-0400 Body weight 109.57 kg OUTREACH LIBRARIAN-C Maida Hanston OUTREACH LIBRARIAN Work Phone: [facility] 10-31-2022 13:11-0400 Body mass index (BMI) [Ratio] 41.4 kg/m2 OUTREACH LIBRARIAN-C Maida Julio OUTREACH LIBRARIAN Work Phone: [facility] 10-31-2022 13:11-0400 Body temperature 97.9 [degF] OUTREACH LIBRARIAN-C Maida Julio OUTREACH LIBRARIAN Work Phone: [facility] 10-31-2022 13:11-0400 Body weight 109.57 kg OUTREACH LIBRARIAN-C Maida Julio OUTREACH LIBRARIAN Work Phone: [facility] 10-31-2022 13:11-0400 Diastolic blood pressure 80 mm[Hg] OUTREACH LIBRARIAN-C Maida Julio OUTREACH LIBRARIAN Work Phone: [facility] 10-31-2022 13:11-0400 Heart rate 87 /min OUTREACH LIBRARIAN-C Maida Julio OUTREACH LIBRARIAN Work Phone: [facility] 10-31-2022 13:11-0400 Respiratory rate 16 /min OUTREACH LIBRARIAN-C Maida Julio OUTREACH LIBRARIAN Work Phone: [facility] 10-31-2022 13:11-0400 SaO2% (BldA) [Mass fraction] 97 % OUTREACH LIBRARIAN-C Maida Julio OUTREACH LIBRARIAN Work Phone: [facility] 10-31-2022 13:11-0400 Systolic blood pressure 130 mm[Hg] OUTREACH LIBRARIAN-C Maida Julio OUTREACH LIBRARIAN Work Phone: [facility] 10-11-2022 14:47-0400 SaO2% (BldA) [Mass fraction] 98 % OUTREACH LIBRARIAN-C Maida Julio OUTREACH LIBRARIAN Work Phone: [facility] 10-10-2022 08:24-0400 Body mass index (BMI) [Ratio] 40.2 kg/m2 OUTREACH LIBRARIAN-C Maida Kim OUTREACH LIBRARIAN Work Phone: [facility] 10-10-2022 08:24-0400 Body temperature 98.4 [degF] OUTREACH LIBRARIAN-C Maida Kim OUTREACH LIBRARIAN Work Phone: [facility] 10-10-2022 08:24-0400 Body weight 106.28 kg OUTREACH LIBRARIAN-C Maida Kim OUTREACH LIBRARIAN Work Phone: [facility] 10-10-2022 08:24-0400 Diastolic blood pressure 81 mm[Hg] OUTREACH LIBRARIAN-C Maida Kim OUTREACH LIBRARIAN Work Phone: [facility] 10-10-2022 08:24-0400 Heart rate 98 /min OUTREACH LIBRARIAN-C Maida Kim OUTREACH LIBRARIAN Work Phone: [facility] 10-10-2022 08:24-0400 Respiratory rate 16 /min OUTREACH LIBRARIAN-C Maida Kim OUTREACH LIBRARIAN Work Phone: [facility] 10-10-2022 08:24-0400 SaO2% (BldA) [Mass fraction] 99 % OUTREACH LIBRARIAN-C Maida Kim OUTREACH LIBRARIAN Work Phone: [facility] 10-10-2022 08:24-0400 Systolic blood pressure 134 mm[Hg] OUTREACH LIBRARIAN-C Maida Kim OUTREACH LIBRARIAN Work Phone: [facility] 09-30-2022 14:59-0400 Body mass index (BMI) [Ratio] 39.4 kg/m2 OUTREACH LIBRARIAN-C Maida Kim OUTREACH LIBRARIAN Work Phone: [facility] 09-30-2022 14:59-0400 Body temperature 97 [degF] OUTREACH LIBRARIAN-C Maida Kim OUTREACH LIBRARIAN Work Phone: [facility] 09-30-2022 14:59-0400 Body weight 104.09 kg OUTREACH LIBRARIAN-C Maida Kim OUTREACH LIBRARIAN Work Phone: [facility] 09-30-2022 14:59-0400 Diastolic blood pressure 83 mm[Hg] OUTREACH LIBRARIAN-C Maida Kim OUTREACH LIBRARIAN Work Phone: [facility] 09-30-2022 14:59-0400 Heart rate 100 /min OUTREACH LIBRARIAN-C Maida Julio OUTREACH LIBRARIAN Work Phone: [facility] 09-30-2022 14:59-0400 Respiratory rate 16 /min OUTREACH LIBRARIAN-C Maida Clinemer OUTREACH LIBRARIAN Work Phone: [facility] 09-30-2022 14:59-0400 SaO2% (BldA) [Mass fraction] 96 % OUTREACH LIBRARIAN-C Maida Julio OUTREACH LIBRARIAN Work Phone: [facility] 09-30-2022 14:59-0400 Systolic blood pressure 136 mm[Hg] OUTREACH LIBRARIAN-C Maida Julio OUTREACH LIBRARIAN Work Phone: [facility] [facility] 09-24-2022 15:14-0400 Body height 171.5 cm Josh Mancuso MD Work Phone: [facility] 09-24-2022 15:14-0400 Body mass index (BMI) [Ratio] 35.56 kg/m2 Josh Mancuso MD Work Phone: [facility] 09-24-2022 15:14-0400 Body temperature 98.01 [degF] Josh Mancuso MD Work Phone: [facility] 09-24-2022 15:14-0400 Body weight 104.6 kg Josh Mancuso MD Work Phone: [facility] 09-24-2022 15:14-0400 Diastolic blood pressure 62 mm[Hg] Josh Mancuso MD Work Phone: [facility] 09-24-2022 15:14-0400 Heart rate 95 /min Josh Mancuso MD Work Phone: [facility] 09-24-2022 15:14-0400 Respiratory rate 16 /min Josh Mancuso MD Work Phone: [facility] 09-24-2022 15:14-0400 SaO2% (BldA) [Mass fraction] 99 % Josh Mancuso MD Work Phone: [facility] 09-24-2022 15:14-0400 Systolic blood pressure 131 mm[Hg] Josh Mancuso MD Work Phone: [facility] 09-19-2022 08:17-0400 Body mass index (BMI) [Ratio] 40 kg/m2 OUTREACH LIBRARIAN-C Maida Kim OUTREACH LIBRARIAN Work Phone: [facility] 09-19-2022 08:17-0400 Body temperature 98.4 [degF] OUTREACH LIBRARIAN-C Maida Kim OUTREACH LIBRARIAN Work Phone: [facility] 09-19-2022 08:17-0400 Body weight 105.88 kg OUTREACH LIBRARIAN-C Maida Kim OUTREACH LIBRARIAN Work Phone: [facility] 09-19-2022 08:17-0400 Diastolic blood pressure 81 mm[Hg] OUTREACH LIBRARIAN-C Maida Kim OUTREACH LIBRARIAN Work Phone: [facility] 09-19-2022 08:17-0400 Heart rate 94 /min OUTREACH LIBRARIAN-C Maida Kim OUTREACH LIBRARIAN Work Phone: [facility] 09-19-2022 08:17-0400 Respiratory rate 18 /min OUTREACH LIBRARIAN-C Maida Kim OUTREACH LIBRARIAN Work Phone: [facility] 09-19-2022 08:17-0400 SaO2% (BldA) [Mass fraction] 98 % OUTREACH LIBRARIAN-C Maida Kim OUTREACH LIBRARIAN Work Phone: [facility] 09-19-2022 08:17-0400 Systolic blood pressure 138 mm[Hg] OUTREACH LIBRARIAN-C Maidajeffrey Kim OUTREACH LIBRARIAN Work Phone: [facility] 08-29-2022 08:31-0400 Body mass index (BMI) [Ratio] 35.2 kg/m2 OUTREACH LIBRARIAN-C Maida Kim OUTREACH LIBRARIAN Work Phone: [facility] 08-29-2022 08:31-0400 Body temperature 98.3 [degF] OUTREACH LIBRARIAN-C Maida Kim OUTREACH LIBRARIAN Work Phone: [facility] 08-29-2022 08:31-0400 Body weight 105.26 kg OUTREACH LIBRARIAN-C Maida Kim OUTREACH LIBRARIAN Work Phone: [facility] 08-29-2022 08:31-0400 Diastolic blood pressure 85 mm[Hg] OUTREACH LIBRARIAN-C Maida Kim OUTREACH LIBRARIAN Work Phone: [facility] 08-29-2022 08:31-0400 Heart rate 88 /min OUTREACH LIBRARIAN-C Maida Kim OUTREACH LIBRARIAN Work Phone: [facility] 08-29-2022 08:31-0400 Respiratory rate 17 /min OUTREACH LIBRARIAN-C Madia Kim OUTREACH LIBRARIAN Work Phone: [facility] 08-29-2022 08:31-0400 SaO2% (BldA) [Mass fraction] 95 % OUTREACH LIBRARIAN-C Maida Kim OUTREACH LIBRARIAN Work Phone: [facility] 08-29-2022 08:31-0400 Systolic blood pressure 145 mm[Hg] OUTREACH LIBRARIAN-C Maida Kim OUTREACH LIBRARIAN Work Phone: [facility] 08-22-2022 08:59-0400 Body height 172.72 cm OUTREACH LIBRARIAN-C Maida Kim OUTREACH LIBRARIAN Work Phone: [facility] 08-22-2022 08:59-0400 Body mass index (BMI) [Ratio] 35.3 kg/m2 OUTREACH LIBRARIAN-C Maida Kim OUTREACH LIBRARIAN Work Phone: [facility] 08-22-2022 08:59-0400 Body temperature 97.5 [degF] OUTREACH LIBRARIAN-C Maida Kim OUTREACH LIBRARIAN Work Phone: [facility] 08-22-2022 08:59-0400 Body weight 105.48 kg OUTREACH LIBRARIAN-C Maida Kim OUTREACH LIBRARIAN Work Phone: [facility] 08-22-2022 08:59-0400 Diastolic blood pressure 82 mm[Hg] OUTREACH LIBRARIAN-C Maida Hanston OUTREACH LIBRARIAN Work Phone: [facility] 08-22-2022 08:59-0400 Heart rate 82 /min OUTREACH LIBRARIAN-C Maida Julio OUTREACH LIBRARIAN Work Phone: [facility] 08-22-2022 08:59-0400 Respiratory rate 16 /min OUTREACH LIBRARIAN-C Maida Hanston OUTREACH LIBRARIAN Work Phone: [facility] 08-22-2022 08:59-0400 SaO2% (BldA) [Mass fraction] 96 % OUTREACH LIBRARIAN-C Maida Julio OUTREACH LIBRARIAN Work Phone: [facility] 08-22-2022 08:59-0400 Systolic blood pressure 124 mm[Hg] OUTREACH LIBRARIAN-C Maida Julio OUTREACH LIBRARIAN Work Phone: [facility] 08-09-2022 14:23-0500 Body temperature 97.5 [degF] OUTREACH LIBRARIAN-C Maida Julio OUTREACH LIBRARIAN Work Phone: [facility] 08-09-2022 14:23-0500 Diastolic blood pressure 76 mm[Hg] OUTREACH LIBRARIAN-C Maida Julio OUTREACH LIBRARIAN Work Phone: [facility] 08-09-2022 14:23-0500 Heart rate 81 /min OUTREACH LIBRARIAN-C Maida Julio OUTREACH LIBRARIAN Work Phone: [facility] 08-09-2022 14:23-0500 Respiratory rate 16 /min OUTREACH LIBRARIAN-C Maida Hanston OUTREACH LIBRARIAN Work Phone: [facility] 08-09-2022 14:23-0500 SaO2% (BldA) [Mass fraction] 98 % OUTREACH LIBRARIAN-C Maida Julio OUTREACH LIBRARIAN Work Phone: [facility] 08-09-2022 14:23-0500 Systolic blood pressure 130 mm[Hg] OUTREACH LIBRARIAN-C Maida Hanston OUTREACH LIBRARIAN Work Phone: [facility] 08-08-2022 08:53-0500 Body height 172.72 cm OUTREACH LIBRARIAN-C Maida Hanston OUTREACH LIBRARIAN Work Phone: [facility] 08-08-2022 08:53-0500 Body mass index (BMI) [Ratio] 35.2 kg/m2 OUTREACH LIBRARIAN-C Maida Kim OUTREACH LIBRARIAN Work Phone: [facility] 08-08-2022 08:53-0500 Body weight 104.92 kg OUTREACH LIBRARIAN-C Maida Hanston OUTREACH LIBRARIAN Work Phone: [facility] 08-08-2022 08:27-0500 Body mass index (BMI) [Ratio] 35.2 kg/m2 OUTREACH LIBRARIAN-C Maida Kim OUTREACH LIBRARIAN Work Phone: [facility] 08-08-2022 08:27-0500 Body temperature 98 [degF] OUTREACH LIBRARIAN-C Maida Kim OUTREACH LIBRARIAN Work Phone: [facility] 08-08-2022 08:27-0500 Body weight 104.92 kg OUTREACH LIBRARIAN-C Maida Kim OUTREACH LIBRARIAN Work Phone: [facility] 08-08-2022 08:27-0500 Diastolic blood pressure 77 mm[Hg] OUTREACH LIBRARIAN-C Maida Kim OUTREACH LIBRARIAN Work Phone: [facility] 08-08-2022 08:27-0500 Heart rate 80 /min OUTREACH LIBRARIAN-C Maida Julio OUTREACH LIBRARIAN Work Phone: [facility] 08-08-2022 08:27-0500 Respiratory rate 16 /min OUTREACH LIBRARIAN-C Maida Kim OUTREACH LIBRARIAN Work Phone: [facility] 08-08-2022 08:27-0500 SaO2% (BldA) [Mass fraction] 97 % OUTREACH LIBRARIAN-C Maida Kim OUTREACH LIBRARIAN Work Phone: [facility] 08-08-2022 08:27-0500 Systolic blood pressure 120 mm[Hg] OUTREACH LIBRARIAN-C Maida Kim OUTREACH LIBRARIAN Work Phone: [facility] 08-01-2022 13:55-0500 Body height 172.72 cm OUTREACH LIBRARIAN-C Maida Kim OUTREACH LIBRARIAN Work Phone: [facility] 08-01-2022 13:54-0500 Body temperature 98.3 [degF] OUTREACH LIBRARIAN-C Maida Kim OUTREACH LIBRARIAN Work Phone: [facility] 08-01-2022 13:54-0500 Diastolic blood pressure 84 mm[Hg] OUTREACH LIBRARIAN-C Maida Clinemer OUTREACH LIBRARIAN Work Phone: [facility] 08-01-2022 13:54-0500 Heart rate 80 /min OUTREACH LIBRARIAN-C Maida Clinemer OUTREACH LIBRARIAN Work Phone: [facility] 08-01-2022 13:54-0500 Inhaled oxygen flow rate 0 L/min OUTREACH LIBRARIAN-C Maida Julio OUTREACH LIBRARIAN Work Phone: [facility] 08-01-2022 13:54-0500 Respiratory rate 16 /min OUTREACH LIBRARIAN-C Maida Julio OUTREACH LIBRARIAN Work Phone: [facility] 08-01-2022 13:54-0500 SaO2% (BldA) [Mass fraction] 97 % OUTREACH LIBRARIAN-C Maida Kim OUTREACH LIBRARIAN Work Phone: [facility] 08-01-2022 13:54-0500 Systolic blood pressure 125 mm[Hg] OUTREACH LIBRARIAN-C Maida Kim OUTREACH LIBRARIAN Work Phone: [facility] 07-18-2022 12:53-0500 Diastolic blood pressure 81 mm[Hg] OUTREACH LIBRARIAN-C Maida Kim OUTREACH LIBRARIAN Work Phone: [facility] 07-18-2022 12:53-0500 Heart rate 87 /min OUTREACH LIBRARIAN-C Maida Hanston OUTREACH LIBRARIAN Work Phone: [facility] 07-18-2022 12:53-0500 Respiratory rate 16 /min OUTREACH LIBRARIAN-C Maida Julio OUTREACH LIBRARIAN Work Phone: [facility] 07-18-2022 12:53-0500 Systolic blood pressure 120 mm[Hg] OUTREACH LIBRARIAN-C Maida Kim OUTREACH LIBRARIAN Work Phone: [facility] 07-18-2022 08:55-0500 Body mass index (BMI) [Ratio] 35.1 kg/m2 OUTREACH LIBRARIAN-C Maida Hanston OUTREACH LIBRARIAN Work Phone: [facility] 07-18-2022 08:55-0500 Body weight 104.78 kg OUTREACH LIBRARIAN-C Maida Hanston OUTREACH LIBRARIAN Work Phone: [facility] 07-18-2022 08:19-0500 Body mass index (BMI) [Ratio] 35.1 kg/m2 OUTREACH LIBRARIAN-C Maida Julio OUTREACH LIBRARIAN Work Phone: [facility] 07-18-2022 08:19-0500 Body temperature 98.1 [degF] OUTREACH LIBRARIAN-C Maida Julio OUTREACH LIBRARIAN Work Phone: [facility] 07-18-2022 08:19-0500 Body weight 104.77 kg OUTREACH LIBRARIAN-C Maida Julio OUTREACH LIBRARIAN Work Phone: [facility] 07-18-2022 08:19-0500 Diastolic blood pressure 77 mm[Hg] OUTREACH LIBRARIAN-C Maida Julio OUTREACH LIBRARIAN Work Phone: [facility] 07-18-2022 08:19-0500 Heart rate 88 /min OUTREACH LIBRARIAN-C Maida Julio OUTREACH LIBRARIAN Work Phone: [facility] 07-18-2022 08:19-0500 Respiratory rate 17 /min OUTREACH LIBRARIAN-C Maida Hanston OUTREACH LIBRARIAN Work Phone: [facility] 07-18-2022 08:19-0500 SaO2% (BldA) [Mass fraction] 98 % OUTREACH LIBRARIAN-C Maida Hanston OUTREACH LIBRARIAN Work Phone: [facility] 07-18-2022 08:19-0500 Systolic blood pressure 129 mm[Hg] OUTREACH LIBRARIAN-C Maida Hanston OUTREACH LIBRARIAN Work Phone: [facility] 07-11-2022 10:52-0500 Body mass index (BMI) [Ratio] 35.2 kg/m2 OUTREACH LIBRARIAN-C Maida Julio OUTREACH LIBRARIAN Work Phone: [facility] 07-11-2022 10:52-0500 Body temperature 98.5 [degF] OUTREACH LIBRARIAN-C Maida Hanston OUTREACH LIBRARIAN Work Phone: [facility] 07-11-2022 10:52-0500 Body weight 105.23 kg OUTREACH LIBRARIAN-C Maida Julio OUTREACH LIBRARIAN Work Phone: [facility] 07-11-2022 10:52-0500 Diastolic blood pressure 79 mm[Hg] OUTREACH LIBRARIAN-C Maida Julio OUTREACH LIBRARIAN Work Phone: [facility] 07-11-2022 10:52-0500 Heart rate 90 /min OUTREACH LIBRARIAN-C Maida Julio OUTREACH LIBRARIAN Work Phone: [facility] 07-11-2022 10:52-0500 Respiratory rate 17 /min OUTREACH LIBRARIAN-C Maida Hanston OUTREACH LIBRARIAN Work Phone: [facility] 07-11-2022 10:52-0500 SaO2% (BldA) [Mass fraction] 98 % OUTREACH LIBRARIAN-C Maida Julio OUTREACH LIBRARIAN Work Phone: [facility] 07-11-2022 10:52-0500 Systolic blood pressure 144 mm[Hg] OUTREACH LIBRARIAN-C Maida Julio OUTREACH LIBRARIAN Work Phone: [facility] 06-28-2022 15:04-0500 Body temperature 97.3 [degF] OUTREACH LIBRARIAN-C Maida Hanston OUTREACH LIBRARIAN Work Phone: [facility] 06-28-2022 15:04-0500 Diastolic blood pressure 81 mm[Hg] OUTREACH LIBRARIAN-C Maida Julio OUTREACH LIBRARIAN Work Phone: [facility] 06-28-2022 15:04-0500 Respiratory rate 16 /min OUTREACH LIBRARIAN-C Maida Hanston OUTREACH LIBRARIAN Work Phone: [facility] 06-28-2022 15:04-0500 SaO2% (BldA) [Mass fraction] 97 % OUTREACH LIBRARIAN-C Maida Ujlio OUTREACH LIBRARIAN Work Phone: [facility] 06-28-2022 15:04-0500 Systolic blood pressure 153 mm[Hg] OUTREACH LIBRARIAN-C Maida Julio OUTREACH LIBRARIAN Work Phone: [facility] 06-27-2022 16:29-0500 Body temperature 98.3 [degF] OUTREACH LIBRARIAN-C Maida Kim OUTREACH LIBRARIAN Work Phone: [facility] 06-27-2022 16:29-0500 Diastolic blood pressure 72 mm[Hg] OUTREACH LIBRARIAN-C Maida Kim OUTREACH LIBRARIAN Work Phone: [facility] 06-27-2022 16:29-0500 Heart rate 88 /min OUTREACH LIBRARIAN-C Maida Kim OUTREACH LIBRARIAN Work Phone: [facility] 06-27-2022 16:29-0500 Respiratory rate 16 /min OUTREACH LIBRARIAN-C Maida Kim OUTREACH LIBRARIAN Work Phone: [facility] 06-27-2022 16:29-0500 SaO2% (BldA) [Mass fraction] 94 % OUTREACH LIBRARIAN-C Maida Kim OUTREACH LIBRARIAN Work Phone: [facility] 06-27-2022 16:29-0500 Systolic blood pressure 149 mm[Hg] OUTREACH LIBRARIAN-C Maida Kim OUTREACH LIBRARIAN Work Phone: [facility] 06-27-2022 08:50-0500 Body height 172.72 cm OUTREACH LIBRARIAN-C Maida Kim OUTREACH LIBRARIAN Work Phone: [facility] 06-27-2022 08:50-0500 Body mass index (BMI) [Ratio] 35.4 kg/m2 OUTREACH LIBRARIAN-C Maida Kim OUTREACH LIBRARIAN Work Phone: [facility] 06-27-2022 08:50-0500 Body weight 105.82 kg OUTREACH LIBRARIAN-C Maida Kim OUTREACH LIBRARIAN Work Phone: [facility] 06-27-2022 08:19-0500 Body mass index (BMI) [Ratio] 35.4 kg/m2 OUTREACH LIBRARIAN-C Maida Kim OUTREACH LIBRARIAN Work Phone: [facility] 06-27-2022 08:19-0500 Body temperature 98.2 [degF] OUTREACH LIBRARIAN-C Maida Kim OUTREACH LIBRARIAN Work Phone: [facility] 06-27-2022 08:19-0500 Body weight 105.82 kg OUTREACH LIBRARIAN-C Maida Julio OUTREACH LIBRARIAN Work Phone: [facility] 06-27-2022 08:19-0500 Diastolic blood pressure 84 mm[Hg] OUTREACH LIBRARIAN-C Maida Julio OUTREACH LIBRARIAN Work Phone: [facility] 06-27-2022 08:19-0500 Heart rate 84 /min OUTREACH LIBRARIAN-C Maida Julio OUTREACH LIBRARIAN Work Phone: [facility] 06-27-2022 08:19-0500 Respiratory rate 16 /min OUTREACH LIBRARIAN-C Maida Julio OUTREACH LIBRARIAN Work Phone: [facility] 06-27-2022 08:19-0500 SaO2% (BldA) [Mass fraction] 98 % OUTREACH LIBRARIAN-C Maida Julio OUTREACH LIBRARIAN Work Phone: [facility] 06-27-2022 08:19-0500 Systolic blood pressure 138 mm[Hg] OUTREACH LIBRARIAN-C Maida Hanston OUTREACH LIBRARIAN Work Phone: [facility] 06-26-2022 08:06-0500 Body mass index (BMI) [Ratio] 35.4 kg/m2 OUTREACH LIBRARIAN-C Maida Julio OUTREACH LIBRARIAN Work Phone: [facility] 06-26-2022 08:06-0500 Body temperature 98.3 [degF] OUTREACH LIBRARIAN-C Maida Julio OUTREACH LIBRARIAN Work Phone: [facility] 06-26-2022 08:06-0500 Body weight 105.8 kg OUTREACH LIBRARIAN-C Maida Julio OUTREACH LIBRARIAN Work Phone: [facility] 06-26-2022 08:06-0500 Diastolic blood pressure 81 mm[Hg] OUTREACH LIBRARIAN-C Maida Hanston OUTREACH LIBRARIAN Work Phone: [facility] 06-26-2022 08:06-0500 Heart rate 91 /min OUTREACH LIBRARIAN-C Maida Julio OUTREACH LIBRARIAN Work Phone: [facility] 06-26-2022 08:06-0500 Respiratory rate 16 /min OUTREACH LIBRARIAN-C Maida Hanston OUTREACH LIBRARIAN Work Phone: [facility] 06-26-2022 08:06-0500 SaO2% (BldA) [Mass fraction] 97 % OUTREACH LIBRARIAN-C Maida Hanston OUTREACH LIBRARIAN Work Phone: [facility] 06-26-2022 08:06-0500 Systolic blood pressure 129 mm[Hg] OUTREACH LIBRARIAN-C Maida Julio OUTREACH LIBRARIAN Work Phone: [facility] 06-17-2022 14:07-0500 Body temperature 98.5 [degF] OUTREACH LIBRARIAN-C Maida Julio OUTREACH LIBRARIAN Work Phone: [facility] 06-17-2022 14:07-0500 Diastolic blood pressure 73 mm[Hg] OUTREACH LIBRARIAN-C Maida Hanston OUTREACH LIBRARIAN Work Phone: [facility] 06-17-2022 14:07-0500 Heart rate 84 /min OUTREACH LIBRARIAN-C Maida Hanston OUTREACH LIBRARIAN Work Phone: [facility] 06-17-2022 14:07-0500 Respiratory rate 16 /min OUTREACH LIBRARIAN-C Maida Hanston OUTREACH LIBRARIAN Work Phone: [facility] 06-17-2022 14:07-0500 SaO2% (BldA) [Mass fraction] 93 % OUTREACH LIBRARIAN-C Maida Hanston OUTREACH LIBRARIAN Work Phone: [facility] 06-17-2022 14:07-0500 Systolic blood pressure 129 mm[Hg] OUTREACH LIBRARIAN-C Maida Julio OUTREACH LIBRARIAN Work Phone: [facility] 06-17-2022 09:37-0500 Body height 172.72 cm OUTREACH LIBRARIAN-C Maida Hanston OUTREACH LIBRARIAN Work Phone: [facility] Work Phone: 06-17-2022 09:37-0500 Body mass index (BMI) [Ratio] 36 kg/m2 OUTREACH LIBRARIAN-C Maida Hanston OUTREACH LIBRARIAN Work Phone: [facility] 06-17-2022 09:37-0500 Body weight 107.5 kg OUTREACH LIBRARIAN-C Maida Hanston OUTREACH LIBRARIAN Work Phone: [facility] 06-13-2022 12:58-0500 Body mass index (BMI) [Ratio] 35.6 kg/m2 OUTREACH LIBRARIAN-C Maida Julio OUTREACH LIBRARIAN Work Phone: [facility] 06-13-2022 12:58-0500 Body temperature 98.5 [degF] OUTREACH LIBRARIAN-C Maida Julio OUTREACH LIBRARIAN Work Phone: [facility] 06-13-2022 12:58-0500 Body weight 106.19 kg OUTREACH LIBRARIAN-C Maida Hanston OUTREACH LIBRARIAN Work Phone: [facility] 06-13-2022 12:58-0500 Diastolic blood pressure 84 mm[Hg] OUTREACH LIBRARIAN-C Maida Julio OUTREACH LIBRARIAN Work Phone: [facility] 06-13-2022 12:58-0500 Heart rate 98 /min OUTREACH LIBRARIAN-C Maida Hanston OUTREACH LIBRARIAN Work Phone: [facility] 06-13-2022 12:58-0500 Respiratory rate 18 /min OUTREACH LIBRARIAN-C Maida Hanston OUTREACH LIBRARIAN Work Phone: [facility] 06-13-2022 12:58-0500 SaO2% (BldA) [Mass fraction] 97 % OUTREACH LIBRARIAN-C Maida Julio OUTREACH LIBRARIAN Work Phone: [facility] 06-13-2022 12:58-0500 Systolic blood pressure 135 mm[Hg] OUTREACH LIBRARIAN-C Maida Julio OUTREACH LIBRARIAN Work Phone: [facility] 05-24-2022 11:47-0500 Body temperature 98 [degF] OUTREACH LIBRARIAN-C Maida Julio OUTREACH LIBRARIAN Work Phone: [facility] 05-24-2022 11:47-0500 Diastolic blood pressure 61 mm[Hg] OUTREACH LIBRARIAN-C Maida Julio OUTREACH LIBRARIAN Work Phone: [facility] 05-24-2022 11:47-0500 Heart rate 84 /min OUTREACH LIBRARIAN-C Maida Hanston OUTREACH LIBRARIAN Work Phone: [facility] 05-24-2022 11:47-0500 Respiratory rate 16 /min OUTREACH LIBRARIAN-C Maida Julio OUTREACH LIBRARIAN Work Phone: [facility] 05-24-2022 11:47-0500 SaO2% (BldA) [Mass fraction] 98 % OUTREACH LIBRARIAN-C Maida Hanston OUTREACH LIBRARIAN Work Phone: [facility] 05-24-2022 11:47-0500 Systolic blood pressure 136 mm[Hg] OUTREACH LIBRARIAN-C Maida Hanston OUTREACH LIBRARIAN Work Phone: [facility] 05-24-2022 10:23-0500 Body height 172.72 cm OUTREACH LIBRARIAN-C Maida Hanston OUTREACH LIBRARIAN Work Phone: [facility] Work Phone: 05-24-2022 09:24-0500 Body temperature 96.8 [degF] OUTREACH LIBRARIAN-C Maida Kim OUTREACH LIBRARIAN Work Phone: [facility] 05-24-2022 09:24-0500 Diastolic blood pressure 74 mm[Hg] OUTREACH LIBRARIAN-C Maida Julio OUTREACH LIBRARIAN Work Phone: [facility] 05-24-2022 09:24-0500 Heart rate 95 /min OUTREACH LIBRARIAN-C Maida Clinemer OUTREACH LIBRARIAN Work Phone: [facility] 05-24-2022 09:24-0500 Respiratory rate 17 /min OUTREACH LIBRARIAN-C Maida Kim OUTREACH LIBRARIAN Work Phone: [facility] 05-24-2022 09:24-0500 SaO2% (BldA) [Mass fraction] 97 % OUTREACH LIBRARIAN-C Maida Julio OUTREACH LIBRARIAN Work Phone: [facility] 05-24-2022 09:24-0500 Systolic blood pressure 114 mm[Hg] OUTREACH LIBRARIAN-C Maida Clinemer OUTREACH LIBRARIAN Work Phone: [facility] 05-23-2022 05:37-0500 Heart rate 92 /min OUTREACH LIBRARIAN-C Maida Kim OUTREACH LIBRARIAN Work Phone: [facility] 05-23-2022 05:37-0500 Respiratory rate 24 /min OUTREACH LIBRARIAN-C Maida Julio OUTREACH LIBRARIAN Work Phone: [facility] 05-23-2022 05:37-0500 SaO2% (BldA) [Mass fraction] 100 % OUTREACH LIBRARIAN-C Maida Julio OUTREACH LIBRARIAN Work Phone: [facility] 05-23-2022 04:45-0500 Diastolic blood pressure 66 mm[Hg] OUTREACH LIBRARIAN-C Maida Kim OUTREACH LIBRARIAN Work Phone: [facility] 05-23-2022 04:45-0500 Systolic blood pressure 119 mm[Hg] OUTREACH LIBRARIAN-C Maida Julio OUTREACH LIBRARIAN Work Phone: [facility] 05-23-2022 02:22-0500 Body temperature 98 [degF] OUTREACH LIBRARIAN-C Maida Kim OUTREACH LIBRARIAN Work Phone: [facility] 05-23-2022 02:13-0500 Body mass index (BMI) [Ratio] 37 kg/m2 OUTREACH LIBRARIAN-C Maida Julio OUTREACH LIBRARIAN Work Phone: [facility] 05-23-2022 02:13-0500 Body weight 113.9 kg OUTREACH LIBRARIAN-C Maidanicky Kim OUTREACH LIBRARIAN Work Phone: [facility] 01-02-2022 10:56-0400 Body height 175.26 cm OUTREACH LIBRARIAN-C Maida Kim OUTREACH LIBRARIAN Work Phone: [facility] Work Phone: 01-02-2022 10:56-0400 Body weight 107.04 kg OUTREACH LIBRARIAN-C Maida Julio OUTREACH LIBRARIAN Work Phone: [facility] Work Phone: 12-06-2021 09:04-0400 Body mass index (BMI) [Ratio] 35.2 kg/m2 OUTREACH LIBRARIAN-C Maida Julio OUTREACH LIBRARIAN Work Phone: [facility] Work Phone: 12-06-2021 09:04-0400 Body weight 108.4 kg OUTREACH LIBRARIAN-C Maida Kim OUTREACH LIBRARIAN Work Phone: [facility] Work Phone: Encounters Encounter Date Encounter Type Care Provider Facility Start: 11-25-2024 End: 11-25-[address] Cristóbal Ford MD -[facility] Work Phone: Start: 11-25-2024 End: 11-25-2024 ambulatory Blue BERMUDEZ Work Phone: [facility] Work Phone: Start: 11-25-2024 Registered Recurring Genna Aleksander OUTREACH LIBRARIAN-C -[facility] Start: 11-04-2024 End: 11-04-[address] Cristóbal Ford MD -[facility] Work Phone: Start: 11-04-2024 End: 11-04-2024 ambulatory Cristóbal [place] [place]: 11-04-2024 Registered Recurring Genna Aleksander OUTREACH LIBRARIAN-C -[facility] Start: 10-26-2024 End: 10-26-2024 Patient encounter procedure Dain BERMUDEZ -Laboratory Specimen Work Phone: Start: 10-26-2024 End: 10-26-2024 Patient encounter procedure aDin BERMUDEZ -[facility] Work Phone: Start: 10-26-2024 End: 10-26-2024 ambulatory Blue BERMUDEZ Work Phone: [facility] Work Phone: Start: 10-26-2024 End: 10-26-2024 ambulatory Blue BERMUDEZ Facility:[facility] Start: 10-14-2024 Registered Recurring Genna Aleksander OUTREACH LIBRARIAN-C -[facility] Start: 10-14-2024 End: 10-14-2024 Patient encounter procedure Genna Aleksander OUTREACH LIBRARIAN-C -[facility] Work Phone: Start: 10-14-2024 End: 10-14-2024 ambulatory Genna Aleksander OUTREACH LIBRARIAN [place]: 09-23-2024 End: 09-23-2024 Patient encounter procedure Genna Aleksander OUTREACH LIBRARIAN-C -[facility] Work Phone: Start: 09-23-2024 End: 09-23-2024 ambulatory Genna Aleksander OUTREACH LIBRARIAN Facility:[facility] Start: 09-17-2024 End: 09-17-2024 ambulatory Maida Hanston OUTREACH LIBRARIAN-C Work Phone: [facility] Work Phone: Start: 09-17-2024 End: 09-17-[address] Dain Serrano MD -[facility] Work Phone: Start: 09-17-2024 End: 09-17-2024 ambulatory Dain Serrano Facility:[facility] Start: 09-02-[address] Cristóbal Ford MD -[facility] Start: 09-02-2024 End: 09-02-[address] Cristóbal Ford MD -[facility] Work Phone: Start: 09-02-2024 End: 09-02-2024 ambulatory Cristóbal Ford Facility:[facility] Start: 08-31-2024 Non-patient / Non-visit Dr. Bereket NOONAN -[facility] Start: 08-31-2024 End: 08-31-2024 ambulatory Maida Kim OUTREACH LIBRARIAN-C Work Phone: [facility] Work Phone: Start: 08-31-2024 End: 08-31-2024 Patient encounter procedure Genna Aleksander OUTREACH LIBRARIAN-C -Cardiovascular Services Work Phone: Start: 08-31-2024 End: 08-31-2024 ambulatory Genna Aleksander OUTREACH LIBRARIAN Facility:[facility] Start: 08-17-2024 End: 08-17-2024 ambulatory Maiad Hanston OUTREACH LIBRARIAN-C Work Phone: [facility] Work Phone: Start: 08-17-2024 End: 08-17-2024 Patient encounter procedure Carly Carrasquillo PA -Laboratory, [place] Start: 08-17-2024 End: 08-17-2024 ambulatory Carly Carrasquillo Facility:[facility] Start: 08-12-2024 End: 08-12-2024 ambulatory Maida Clinemer OUTREACH LIBRARIAN-C Work Phone: [facility] Work Phone: Start: 08-12-2024 End: 08-12-[address] Dain Serrano MD -Cat Scan, [facility] Work Phone: Start: 08-12-2024 Encounter for preprocedural cardiovascular examination Dain Serrano [facility] Start: 08-12-2024 End: 08-12-[address] Cristóbal Ford MD -[facility] Work Phone: Start: 08-12-2024 End: 08-12-2024 ambulatory [facility] Start: 08-12-[address] Cristóbal Ford MD -[facility] Start: 08-12-2024 End: 08-12-2024 ambulatory Dain Serrano Facility:[facility] Start: 07-22-2024 End: 07-22-2024 Patient encounter procedure Genna Armijo OUTREACH LIBRARIAN-C -[facility] Work Phone: Start: 07-22-2024 End: 07-22-2024 ambulatory Genna Aleksander OUTREACH LIBRARIAN [facility] Start: 07-22-2024 End: 07-22-2024 ambulatory Genna Aleksander OUTREACH LIBRARIAN Facility:[facility] Start: 07-05-2024 End: 07-05-[address] Cristóbal Ford MD -[facility] Work Phone: Start: 07-05-2024 End: 07-05-2024 ambulatory [facility] Facility:[facility] Start: 07-01-2024 End: 07-01-[address] Cristóbal Ford MD -[facility] Work Phone: Start: 07-01-2024 End: 07-01-2024 ambulatory Cristóbal Ford [facility] Start: 06-23-2024 End: 06-23-[address] Yvonne Hinojosa MD -[facility] Work Phone: Start: 06-23-2024 End: 06-23-2024 ambulatory Yvonne Hinojosa Facility:[facility] Start: 06-16-2024 End: 06-16-[address] Yvonne Hinojosa MD -Laboratory, Specimen Work Phone: Start: 06-16-2024 End: 06-16-[address] Yvonne Hinojosa MD -[facility] Work Phone: Start: 06-16-2024 End: 06-16-2024 ambulatory Maida Clinemer Facility:[facility] Start: 06-15-2024 End: 06-15-[address] Cristóbal Ford MD -[facility] Work Phone: Start: 06-15-2024 End: 06-16-2024 ambulatory [facility] Facility:[facility] Start: 06-10-2024 End: 06-10-[address] Cristóbal Ford MD -[facility] Work Phone: Start: 06-10-2024 End: 06-10-2024 ambulatory Maida Hanston Facility:[facility] Start: 05-20-2024 End: 05-20-[address] Cristóbal Ford MD -[facility] Work Phone: Start: 05-20-2024 End: 05-20-2024 ambulatory Maida Julio Facility:[facility] Start: 05-19-2024 ambulatory Maida Hanston Facility :[facility] Start: 05-19-2024 Non-patient / Non-visit Dr. Bereket NOONAN -[facility] Start: 05-19-2024 End: 05-19-2024 Patient encounter procedure Genna Armijo NP-C -Cardiovascular Services Work Phone: Start: 05-19-2024 End: 05-19-2024 ambulatory Genna Armijo OUTREACH LIBRARIAN Facility:[facility] Start: 04-29-2024 End: 04-29-2024 Patient encounter procedure Genna Armijo NP-C -[facility] Work Phone: Start: 04-29-2024 End: 04-29-2024 ambulatory Genna Aleksander OUTREACH LIBRARIAN Facility:[facility] Start: 04-08-2024 End: 04-08-2024 ambulatory Genna Aleksander OUTREACH LIBRARIAN Facility:[facility] Start: 03-19-2024 End: 03-19-2024 ambulatory Maida Kim Facility:[facility] Start: 03-18-2024 End: 03-18-2024 ambulatory Maida Kim Facility:[facility] Start: 03-03-2024 Encounter for other preprocedural examination Dain Navya [facility] Start: 02-26-2024 End: 02-26-2024 ambulatory Maida Kim Facility:[facility] Start: 02-24-2024 Preoperative state Maida hernandez OUTREACH LIBRARIAN-C Work Phone: [facility] Start: 02-20-2024 End: 02-20-2024 ambulatory Maida Kim Facility:[facility] Start: 02-12-2024 End: 02-12-2024 ambulatory Maida Kim [facility] Start: 02-12-2024 End: 02-12-2024 ambulatory Maida Kim Facility:[facility] Start: 02-10-2024 ambulatory Maida Kim Facility [facility] Start: 02-10-2024 End: 02-10-2024 ambulatory Genna Aleksander OUTREACH LIBRARIAN Facility:[facility] Start: 02-05-2024 End: 02-05-2024 ambulatory Maida Kim Facility:[facility] Start: 01-15-2024 End: 01-15-2024 ambulatory Genna Aleksander OUTREACH LIBRARIAN Facility:[facility] Start: 01-09-2024 End: 01-09-2024 ambulatory Maida Kim [facility] Start: 01-08-2024 End: 01-08-2024 ambulatory Maida Kim [facility] Start: 12-25-2023 End: 12-25-2023 ambulatory Genna Aleksander OUTREACH LIBRARIAN Facility:[facility] Start: 12-08-2023 End: 12-08-2023 ambulatory [facility] Facility:[facility] Start: 12-04-2023 End: 12-04-2023 ambulatory [facility] Facility:[facility] Start: 10-28-2023 End: 10-28-2023 ambulatory MAIDA JULIO [facility] Start: 10-28-2023 End: 10-28-2023 Postop follow up visit related to original px Gladis Rausch MD Work Phone: [facility] Comment on above: Follow-up surgery ca re (Primary Dx) Start: 10-10-2023 End: 10-10-2023 [facility] Start: 10-10-2023 End: 10-10-2023 Subsequent hospital visit by physician Gladis Rausch MD Work Phone: [facility] Comment on above: Postmenopausal bleed ing; Polyp of corpus uteri Start: 10-09-2023 ambulatory Gladis Rausch MD Work Phone: [facility] Start: 10-03-2023 End: 10-03-[facility] Start: 10-03-2023 End: 10-03-2023 Encounter for other preprocedural examination GLADIS [facility] Start: 09-02-2023 End: 09-02-2023 ambulatory GLADIS [facility] Start: 09-02-2023 End: 09-02-2023 Office outpatient visit 25 minutes Gladis Rausch MD Work Phone: [facility] Ob[facility]etric[facility] & Gynecology Comment on above: Postmenopausal bleed ing (Primary Dx); Endometrial polyp Start: 08-14-2023 Non-patient / Non-visit OUTREACH LIBRARIAN-C Gael Kim OUTREACH LIBRARIAN Work Phone: [facility] Start: 08-14-2023 End: 08-14-2023 ambulatory OUTREACH LIBRARIAN-Amairani Kim NP Work Phone: [facility] Work Phone: Start: 08-14-2023 End: 08-14-2023 Patient encounter procedure OUTREACH LIBRARIAN-Amairani Kim OUTREACH LIBRARIAN Work Phone: [facility]-Cardiovascular Services Work Phone: Start: 08-12-2023 End: 08-12-2023 ambulatory [facility] Start: 08-12-2023 End: 08-12-2023 Office outpatient visit 15 minutes Nikko Goldberg MD Work Phone: [facility] Ob[facility]etric[facility] & Gynecology Comment on above: Postmenopausal bleed ing (Primary Dx); Care related to current tamoxifen use; Endometrial polyp Start: 07-31-2023 Registered Recurring OUTREACH LIBRARIAN-Amairani Kim OUTREACH LIBRARIAN Work Phone: [facility] Start: 07-31-2023 End: 07-31-2023 Patient encounter procedure OUTREACH LIBRARIAN-Amairani Kim OUTREACH LIBRARIAN Work Phone: [facility] Work Phone: Start: 06-26-2023 End: 06-26-2023 Patient encounter procedure OUTREACH LIBRARIAN-Amairani Kim OUTREACH LIBRARIAN Work Phone: [facility] Work Phone: Start: 06-20-2023 End: 06-20-2023 Patient encounter procedure OUTREACH LIBRARIAN-Amairani Kim OUTREACH LIBRARIAN Work Phone: [facility] Work Phone: Start: 06-05-2023 End: 06-05-2023 Patient encounter procedure OUTREACH LIBRARIAN-Amairani Kim OUTREACH LIBRARIAN [facility] Work [facility]: Start: 05-15-2023 End: 05-15-2023 Patient encounter procedure OUTREACH LIBRARIAN-Amairani Kim OUTREACH LIBRARIAN [facility] Work Phone: Start: 05-13-2023 End: 05-13-2023 ambulatory [facility] Start: 05-13-2023 End: 05-13-2023 Office outpatient visit 15 minutes Nikko Goldberg MD Work Phone: [facility] Ob[facility]etric[facility] & Gynecology Comment on above: Postmenopausal bleed ing (Primary Dx); Care related to current tamoxifen use; History of left breast cancer Start: 04-30-2023 End: 05-01-2023 ambulatory MAIDA KIM [employer] Facility:[facility] Start: 04-29-2023 Non-patient / Non-visit OUTREACH LIBRARIAN-C Gael Kim OUTREACH LIBRARIAN Work Phone: [facility] Start: 04-29-2023 End: 04-29-2023 ambulatory OUTREACH LIBRARIAN-C Maida Kim OUTREACH LIBRARIAN Work Phone: [facility] Work Phone: Start: 04-29-2023 End: 04-29-2023 Patient encounter procedure OUTREACH LIBRARIAN-Amairani Kim OUTREACH LIBRARIAN [facility] Start: 04-24-2023 End: 04-24-2023 Patient encounter procedure OUTREACH LIBRARIAN-Amairani Kim OUTREACH LIBRARIAN Work Phone: [facility] Work Phone: Start: 04-24-2023 Registered Recurring OUTREACH LIBRARIAN-Amairani iKm OUTREACH LIBRARIAN Work Phone: [facility] Start: 04-24-2023 Non-patient / Non-visit OUTREACH LIBRARIAN-C Gael Kim OUTREACH LIBRARIAN Work Phone: [facility] Work Phone: Start: 04-03-2023 End: 04-03-2023 Patient encounter procedure OUTREACH LIBRARIAN-Amairani Kim OUTREACH LIBRARIAN Work Phone: [facility] Work Phone: Start: 03-27-2023 End: 03-27-2023 ambulatory OUTREACH LIBRARIAN-Amairani Kim OUTREACH LIBRARIAN Work Phone: [facility] Work Phone: Start: 03-27-2023 End: 03-27-2023 Patient encounter procedure OUTREACH LIBRARIAN-Amairani Kim OUTREACH LIBRARIAN Work Phone: [facility] Work Phone: Start: 03-13-2023 Registered Recurring OUTREACH LIBRARIAN-C Kaya Kim OUTREACH LIBRARIAN [facility] Start: 03-13-2023 End: 03-13-2023 Patient encounter procedure OUTREACH LIBRARIAN-C Maida Kim OUTREACH LIBRARIAN Work Phone: [facility] Work Phone: Start: 02-27-2023 End: 02-27-2023 Patient encounter procedure OUTREACH LIBRARIAN-C Maida Kim OUTREACH LIBRARIAN Work Phone: [facility] Work Phone: Start: 02-13-2023 End: 02-13-2023 Patient encounter procedure OUTREACH LIBRARIAN-C Maida Kim OUTREACH LIBRARIAN Work Phone: [facility] Work Phone: Start: 01-24-2023 Non-patient / Non-visit OUTREACH LIBRARIAN-C Gael Kim OUTREACH LIBRARIAN Work Phone: [facility] Start: 01-24-2023 End: 01-24-2023 ambulatory OUTREACH LIBRARIAN-C Maida Kim OUTREACH LIBRARIAN Work Phone: [facility] Work Phone: Start: 01-24-2023 End: 01-24-2023 Patient encounter procedure OUTREACH LIBRARIAN-C Maida Kim OUTREACH LIBRARIAN Work [facility] Work [facility]: Start: 01-23-2023 Registered Recurring OUTREACH LIBRARIAN-C Kaya Kim OUTREACH LIBRARIAN Work Phone: [facility] Start: 01-23-2023 End: 01-23-2023 Patient encounter procedure OUTREACH LIBRARIAN-C Maida Kim OUTREACH LIBRARIAN Work Phone: [facility] Work Phone: Start: 01-02-2023 End: 01-02-2023 Patient encounter procedure OUTREACH LIBRARIAN-C Maida Kim OUTREACH LIBRARIAN [facility] Work [facility]: Start: 12-19-2022 End: 12-19-2022 Patient encounter procedure OUTREACH LIBRARIAN-C Maida Kim OUTREACH LIBRARIAN Work Phone: [facility] Work Phone: Start: 12-12-2022 End: 12-12-2022 Patient encounter procedure OUTREACH LIBRARIAN-C Maida Kim OUTREACH LIBRARIAN [facility] Phone: [facility] Work Phone: Start: 12-05-2022 End: 12-05-2022 ambulatory OUTREACH LIBRARIAN-C Maida Kim OUTREACH LIBRARIAN Work Phone: [facility] Work Phone: Start: 12-05-2022 End: 12-05-2022 Patient encounter procedure OUTREACH LIBRARIAN-C Maida Kim OUTREACH LIBRARIAN Work Phone: [facility] Work Phone: Start: 11-21-2022 Registered Recurring OUTREACH LIBRARIAN-C Kaya Kim OUTREACH LIBRARIAN Work Phone: [facility] Start: 11-21-2022 End: 11-21-2022 Patient encounter procedure OUTREACH LIBRARIAN-C Maida Kim OUTREACH LIBRARIAN Work Phone: [facility] Work Phone: Start: 11-01-2022 End: 11-01-2022 Patient encounter procedure OUTREACH LIBRARIAN-C Maida Kim OUTREACH LIBRARIAN Work Phone: [facility] Start: 10-31-2022 Non-patient / Non-visit OUTREACH LIBRARIAN-C Gael Kim OUTREACH LIBRARIAN Work Phone: [facility] Start: 10-31-2022 End: 10-31-2022 ambulatory OUTREACH LIBRARIAN-C Maida Kim OUTREACH LIBRARIAN Work Phone: [facility] Work Phone: Start: 10-31-2022 End: 10-31-2022 Patient encounter procedure OUTREACH LIBRARIAN-Amairani Kim OUTREACH LIBRARIAN Work Phone[facility] Start: 10-31-2022 Registered Recurring OUTREACH LIBRARIAN-Amairani Kim OUTREACH LIBRARIAN Work Phone: [facility] Start: 10-31-2022 End: 10-31-2022 Patient encounter procedure OUTREACH LIBRARIAN-Amairani Kim OUTREACH LIBRARIAN Work Phone: [facility] Start: 10-30-2022 End: 10-30-2022 Patient encounter procedure OUTREACH LIBRARIAN-Amairani Kim OUTREACH LIBRARIAN Work Phone: [facility] Start: 10-29-2022 Non-patient / Non-visit OUTREACH LIBRARIAN-Amairani Kim OUTREACH LIBRARIAN Work Phone: [facility] Start: 10-29-2022 End: 10-29-2022 Patient encounter procedure OUTREACH LIBRARIAN-Amairani Kim OUTREACH LIBRARIAN Work Phone[facility] Start: 10-10-2022 End: 10-10-2022 Patient encounter procedure OUTREACH LIBRARIAN-Amairani Kim OUTREACH LIBRARIAN Work Phone: [facility] Start: 09-30-2022 End: 09-30-2022 Patient encounter procedure OUTREACH LIBRARIAN-Amairani Kim OUTREACH LIBRARIAN Work Phone: [facility] Start: 09-24-2022 ambulatory MAIDA KIM Facili ty:[facility] Start: 09-24-2022 End: 09-24-2022 Office outpatient new 60 minutes Josh Mancuso MD Work Phone: [facility] Comment on above: Infiltrating ductal carcinoma of left breast (Primary Dx); Bone lesion Start: 09-19-2022 End: 09-19-2022 Patient encounter procedure OUTREACH LIBRARIAN-C Maida Kim OUTREACH LIBRARIAN Work Phone: [facility] Start: 08-29-2022 End: 08-29-2022 Patient encounter procedure OUTREACH LIBRARIAN-C Maida Kim OUTREACH LIBRARIAN Work Phone: [facility] Start: 08-22-2022 End: 08-22-2022 ambulatory OUTREACH LIBRARIAN-C Maida Kim OUTREACH LIBRARIAN Work Phone: [facility] Work Phone: Start: 08-22-2022 End: 08-22-2022 Patient encounter procedure OUTREACH LIBRARIAN-C Maida Kim OUTREACH LIBRARIAN Work Phone: [facility] Start: 08-22-2022 Registered Recurring OUTREACH LIBRARIAN-C Kaya Kim OUTREACH LIBRARIAN Work Phone: [facility] Start: 08-09-2022 Registered Recurring OUTREACH LIBRARIAN-C Kaya Kim OUTREACH LIBRARIAN Work Phone: [facility] Start: 08-08-2022 End: 08-08-2022 ambulatory OUTREACH LIBRARIAN-C Maida Kim OUTREACH LIBRARIAN Work Phone: [facility] Work Phone: Start: 08-08-2022 End: 08-08-2022 Patient encounter procedure OUTREACH LIBRARIAN-C Maida Kim OUTREACH LIBRARIAN Work Phone: [facility] Start: 08-08-2022 End: 08-08-2022 Patient encounter procedure OUTREACH LIBRARIAN-C Maida Kim OUTREACH LIBRARIAN Work Phone: [facility] Start: 08-01-2022 Non-patient / Non-visit OUTREACH LIBRARIAN-C Gael Kim OUTREACH LIBRARIAN Work Phone: [facility] Start: 08-01-2022 End: 08-01-2022 ambulatory OUTREACH LIBRARIAN-C Maida Kim OUTREACH LIBRARIAN Work Phone: [facility] Work Phone: Start: 08-01-2022 End: 08-01-2022 Patient encounter procedure OUTREACH LIBRARIAN-C Maida Kim OUTREACH LIBRARIAN Work Phone: [facility]-Cardiovascular Services Start: 08-01-2022 Registered Recurring OUTREACH LIBRARIAN-C Kaya Kim OUTREACH LIBRARIAN Work Phone: [facility] Start: 08-01-2022 End: 08-01-2022 Patient encounter procedure OUTREACH LIBRARIAN-C Maida Kim OUTREACH LIBRARIAN Work Phone: [facility] Start: 07-18-2022 End: 07-18-2022 Patient encounter procedure OUTREACH LIBRARIAN-C Maida Kim OUTREACH LIBRARIAN Work Phone: [facility] Start: 07-11-2022 End: 07-11-2022 Patient encounter procedure OUTREACH LIBRARIAN-C Maida Kim OUTREACH LIBRARIAN Work Phone: [facility] Start: 07-10-2022 End: 07-10-2022 ambulatory OUTREACH LIBRARIAN-C Maida Kim OUTREACH LIBRARIAN Work Phone: [facility] Work Phone: Start: 07-10-2022 End: 07-10-2022 Patient encounter procedure OUTREACH LIBRARIAN-C Maida Kim OUTREACH LIBRARIAN Work Phone: [facility] Start: 06-28-2022 Registered Recurring OUTREACH LIBRARIAN-C Kaya Kim OUTREACH LIBRARIAN Work Phone: [facility] Start: 06-27-2022 End: 06-27-2022 Patient encounter procedure OUTREACH LIBRARIAN-C Maida Kim OUTREACH LIBRARIAN Work Phone: [facility] Start: 06-27-2022 Registered Recurring OUTREACH LIBRARIAN-C Kaya Kim OUTREACH LIBRARIAN Work Phone: [facility] Start: 06-26-2022 End: 06-26-2022 Patient encounter procedure OUTREACH LIBRARIAN-C Maida Kim OUTREACH LIBRARIAN Work Phone: [facility] Start: 06-21-2022 End: 06-21-2022 ambulatory OUTREACH LIBRARIAN-C Maida Kim OUTREACH LIBRARIAN Work Phone: [facility] Work Phone: Start: 06-21-2022 End: 06-21-2022 Patient encounter procedure OUTREACH LIBRARIAN-C Maida Kim OUTREACH LIBRARIAN Work Phone: [facility] Start: 06-19-2022 Registered Recurring OUTREACH LIBRARIAN-C Kaya Kim OUTREACH LIBRARIAN Work Phone: [facility] Start: 06-18-2022 Non-patient / Non-visit OUTREACH LIBRARIAN-C Gael Kim OUTREACH LIBRARIAN Work Phone: [facility] Start: 06-18-2022 End: 06-18-2022 ambulatory OUTREACH LIBRARIAN-C Maida Kim OUTREACH LIBRARIAN Work Phone: [facility] Work Phone: Start: 06-18-2022 End: 06-18-2022 Patient encounter procedure OUTREACH LIBRARIAN-C Maida Kim OUTREACH LIBRARIAN Work Phone: [facility]Cardi[facility] Services Start: 06-18-2022 End: 06-18-2022 Patient encounter procedure OUTREACH LIBRARIAN-C Maida Kim OUTREACH LIBRARIAN Work Phone: [facility] Start: 06-17-2022 End: 06-17-2022 ambulatory OUTREACH LIBRARIAN-C Maida Kim OUTREACH LIBRARIAN Work Phone: [facility] Work Phone: Start: 06-17-2022 End: 06-17-2022 Patient encounter procedure OUTREACH LIBRARIAN-C Maida Kim OUTREACH LIBRARIAN Work Phone[facility] Start: 06-17-2022 Non-patient / Non-visit OUTREACH LIBRARIAN-C Gael Kim OUTREACH LIBRARIAN Work Phone: [facility] Start: 06-17-2022 End: 06-17-2022 Admission to same day surgery center OUTREACH LIBRARIAN-C Maida Kim OUTREACH LIBRARIAN Work Phone[facility] Start: 06-17-2022 End: 06-17-2022 ambulatory OUTREACH LIBRARIAN-C Maida Julio OUTREACH LIBRARIAN Work Phone: [facility] Work Phone: Start: 06-14-2022 End: 06-14-2022 ambulatory OUTREACH LIBRARIAN-C Maida Julio OUTREACH LIBRARIAN Work Phone: [facility] Work Phone: Start: 06-14-2022 End: 06-14-2022 Patient encounter procedure OUTREACH LIBRARIAN-C Maida Julio OUTREACH LIBRARIAN Work Phone: [facility] Start: 06-13-2022 End: 06-13-2022 ambulatory OUTREACH LIBRARIAN-C Maida Julio OUTREACH LIBRARIAN Work Phone: [facility] Work Phone: Start: 06-13-2022 End: 06-13-2022 Patient encounter procedure OUTREACH LIBRARIAN-C Maida Julio OUTREACH LIBRARIAN Work Phone: [facility]-Laboratory, Specimen Start: 06-13-2022 End: 06-13-2022 Patient encounter procedure OUTREACH LIBRARIAN-C Maida Julio OUTREACH LIBRARIAN Work Phone: [facility] Start: 06-13-2022 Registered Recurring OUTREACH LIBRARIAN-C Kaya Kim OUTREACH LIBRARIAN Work Phone: [facility] Start: 06-13-2022 End: 06-13-2022 Patient encounter procedure OUTREACH LIBRARIAN-C Maida Julio OUTREACH LIBRARIAN Work Phone: [facility] Start: 06-12-2022 End: 06-12-2022 Patient encounter procedure OUTREACH LIBRARIAN-C Maida Julio OUTREACH LIBRARIAN Work Phone: [facility] Start: 06-07-2022 End: 06-12-2022 ambulatory LISA LYN DO Facility:[facility] Start: 06-07-2022 End: 06-11-2022 Outreach Lab LISA Epperson EBONI TINAJERO [facility] Start: 06-06-2022 End: 06-06-2022 Patient encounter procedure OUTREACH LIBRARIAN-C Maida Kim OUTREACH LIBRARIAN Work Phone: [facility]-Laboratory, Specimen Start: 06-06-2022 End: 06-06-2022 Patient encounter procedure OUTREACH LIBRARIAN-C Maida Kim OUTREACH LIBRARIAN Work Phone: [facility] Start: 05-27-2022 End: 05-27-2022 Patient encounter procedure OUTREACH LIBRARIAN-C Maida Kim OUTREACH LIBRARIAN Work Phone: [facility] Start: 05-24-2022 End: 05-24-2022 ambulatory OUTREACH LIBRARIAN-C Maida Kim OUTREACH LIBRARIAN Work Phone: [facility] Work Phone: Start: 05-24-2022 End: 05-24-2022 Patient encounter procedure OUTREACH LIBRARIAN-C Maida Kim OUTREACH LIBRARIAN Work Phone: [facility] Start: 05-23-2022 End: 05-23-2022 Emergency department patient visit OUTREACH LIBRARIAN-C Maida Kim OUTREACH LIBRARIAN Work Phone: [facility] Start: 05-10-2022 End: 05-10-2022 ambulatory OUTREACH LIBRARIAN-C Maida Kim OUTREACH LIBRARIAN Work Phone: [facility] Work Phone: Start: 05-10-2022 End: 05-10-2022 Patient encounter procedure OUTREACH LIBRARIAN-C Maida Kim OUTREACH LIBRARIAN Work Phone: [facility] Ultrasound Start: 05-07-2022 End: 05-07-2022 ambulatory OUTREACH LIBRARIAN-C Maida Kim OUTREACH LIBRARIAN Work Phone: [facility] Work Phone: Start: 05-07-2022 End: 05-07-2022 Patient encounter procedure OUTREACH LIBRARIAN-C Maida Kim OUTREACH LIBRARIAN Work Phone: [facility]Outpatient Breast Imaging Start: 04-08-2022 End: 04-08-2022 Patient encounter procedure OUTREACH LIBRARIAN-C Maida Kim OUTREACH LIBRARIAN Work Phone: [facility] Start: 02-08-2022 End: 02-08-2022 Patient encounter procedure OUTREACH LIBRARIAN-C Maida Kim OUTREACH LIBRARIAN Work Phone: [facility] Start: 02-01-2022 End: 02-01-2022 ambulatory OUTREACH LIBRARIAN-C Maida Kim OUTREACH LIBRARIAN Work Phone: [facility] Work Phone: Start: 02-01-2022 End: 02-01-2022 Patient encounter procedure OUTREACH LIBRARIAN-C Maida Kim OUTREACH LIBRARIAN Work Phone: [facility]MRI - [facility] Start: 01-17-2022 End: 01-17-2022 Patient encounter procedure OUTREACH LIBRARIAN-C Maida Kim OUTREACH LIBRARIAN Work Phone: [facility] Start: 01-02-2022 End: 01-06-2022 Discharged Recurring OUTREACH LIBRARIAN-C Maida Kim OUTREACH LIBRARIAN Work Phone: [facility] Start: 12-06-2021 End: 12-06-2021 Patient encounter procedure OUTREACH LIBRARIAN-C Maida Kim OUTREACH LIBRARIAN Work Phone: [facility] Start: 10-22-2021 End: 10-22-2021 Patient encounter procedure OUTREACH LIBRARIAN-C Maida Kim OUTREACH LIBRARIAN Work Phone: [facility] Start: 04-17-2021 End: 04-17-2021 Patient encounter procedure MAIDA KIM METAL BUILDING ASSEMBLER-BAR ROLLER [facility] Start: 04-09-2017 End: 04-10-2017 Ambulatory [facility] ([place] Procedures Date Procedure Procedure Detail Performing Clinician Start: 11-25-2024 Estimated creatinine clearance Blue hurtado LARA Work Phone: Start: 11-04-2024 Estimated creatinine clearance Blue hurtado LARA Work Phone: Start: 10-26-2024 Urine culture Blue Alicia LARA Work Phone: Start: 10-14-2024 Procedure Blue Alicia LARA Work Phone: Start: 09-23-2024 Estimated creatinine clearance Blue hurtado LARA Work Phone: Start: 08-12-2024 MRI of lower extremity Maida Kim OUTREACH LIBRARIAN -C Work Phone: Start: 07-22-2024 Ultrasonography of breast Maida Kim OUTREACH LIBRARIAN-C Work Phone: Start: 07-05-2024 Ultrasonography of breast Maida Kim OUTREACH LIBRARIAN-C Work Phone: Start: 07-01-2024 Carcinoembryonic antigen cea Maida Cline mary OUTREACH LIBRARIAN-C Work Phone: Comment on above: Nonsmokers <3.9 Smokers <5.6[employer] Electrochemiluminescence Immunoassay(ECLIA)Values obtained with different assay methods or kitscannot be used interchangeably. Results cannot beinterpreted as absolute evidence of the presence orabsence of malignant disease. Start: 07-01-2024 Measurement of renal function Blue Schwartz cleve BERMUDEZ Work Phone: Comment on above: GFR Calc Start: 06-15-2024 PET study for localization of tumor Maida Kim OUTREACH LIBRARIAN-C Work Phone: Start: 01-06-[address] of whole body Maida Kim OUTREACH LIBRARIAN-C Work Phone: Start: 10-10-2023 Urine test visual color cmprsn toños Elsie Villareal METAL BUILDING ASSEMBLER - BAR ROLLER Work Phone: Start: 07-15-[address] of whole body OUTREACH LIBRARIAN-C Maida Kim OUTREACH LIBRARIAN Work Phone: Start: 03-27-2023 CT of chest and abdomen OUTREACH LIBRARIAN-C Maida hernandez OUTREACH LIBRARIAN Work Phone: Start: 12-17-2022 PET study for localization of tumor OUTREACH LIBRARIAN-C Maida Kim OUTREACH LIBRARIAN Work Phone: Start: 12-05-2022 Radionuclide whole body bone study OUTREACH LIBRARIAN-C Maida Kim OUTREACH LIBRARIAN Work Phone: Start: 10-31-2022 Trichomonas screening test Blue Alicia PA Work Phone: Start: 10-29-2022 Plain chest X-ray OUTREACH LIBRARIAN-C Maida Kim OUTREACH LIBRARIAN Work Phone: Start: 08-22-2022 CT of chest and abdomen OUTREACH LIBRARIAN-C Maida hernandez OUTREACH LIBRARIAN Work Phone: Start: 08-08-2022 Plain chest X-ray OUTREACH LIBRARIAN-C Maida Kim OUTREACH LIBRARIAN Work Phone: Start: 07-10-2022 MRI of brain with contrast OUTREACH LIBRARIAN-C Maida Kim OUTREACH LIBRARIAN Work Phone: Start: 06-21-2022 Radionuclide whole body bone study OUTREACH LIBRARIAN-C Maida Kim OUTREACH LIBRARIAN Work Phone: Start: 06-19-2022 Positron emission tomography with computed tomography OUTREACH LIBRARIAN-C Maida Kim OUTREACH LIBRARIAN Work Phone: Start: 06-17-2022 CT of chest and abdomen OUTREACH LIBRARIAN-C Maida hernandez OUTREACH LIBRARIAN Work Phone: Start: 06-17-2022 Plain chest X-ray OUTREACH LIBRARIAN-C Maida Kim OUTREACH LIBRARIAN Work Phone: Start: 06-17-2022 Implantation to cardiovascular system OUTREACH LIBRARIAN-C Maida Kim OUTREACH LIBRARIAN Work Phone: Start: 06-17-2022 Fluoroscopic guidance OUTREACH LIBRARIAN-Amairani Conway r OUTREACH LIBRARIAN Work Phone: Start: 06-14-2022 MRI of bilateral breasts with contrast OUTREACH LIBRARIAN-C Maida Kim OUTREACH LIBRARIAN Work Phone: Start: 06-06-2022 OUTSIDE PATHOLOGY REPORTS Other Other Start: 05-10-2022 Ultrasonography of breast OUTREACH LIBRARIAN-C Maida jurado OUTREACH LIBRARIAN Work Phone: Start: 05-07-2022 End: 05-07-2022 Screening mammography OUTREACH LIBRARIAN-C Maida Conway r OUTREACH LIBRARIAN Work Phone: Start: 02-01-2022 MRI of joint of lower extremity OUTREACH LIBRARIAN-C Katlyn Kim OUTREACH LIBRARIAN Work Phone: Start: 01-17-2022 Radiologic examination of knee OUTREACH LIBRARIAN-C Kaya Kim OUTREACH LIBRARIAN Work Phone: Start: 05-14-2021 Microscopic observation [Identifier] in Cervix by Cyto stain Nikko Giraldo MD Work Phone: Start: 02-27-2018 Specimen from breast obtained by biopsy (specimen) MAIDA KIM METAL BUILDING ASSEMBLER-BAR ROLLER Comment on above: right Start: 04-07-2017 Structure of right knee (body structure) MAIDA KIM METAL BUILDING ASSEMBLER-BAR ROLLER Comment on above: stress fracture and torn meniscus Anaerobic microbial culture OUTREACH LIBRARIAN-C Maida Kim OUTREACH LIBRARIAN Work Phone: Anaerobic microbial culture OUTREACH LIBRARIAN-C Maida Kim OUTREACH LIBRARIAN Work Phone: Investigation of tra nsfusion reaction OUTREACH LIBRARIAN-C Maida Kim OUTREACH LIBRARIAN Work Phone: Investigation of tra nsfusion reaction OUTREACH LIBRARIAN-C Maida Kim OUTREACH LIBRARIAN Work Phone: Microbial culture, routine N P-C Maida Kim OUTREACH LIBRARIAN Work Phone: Microbial culture, routine N P-C Maida Kim OUTREACH LIBRARIAN Work Phone: Plan of Treatment Date Care Activity Detail Author Start: 2029 RSV Immunization aged 60 or older (1 - 1-dose 60+ series) RSV Immunization aged 60 or older (1 - 1-dose 60+ series) [facility] Start: 05-14-2026 Screening for malignant neoplasm of cervix [facility] Start: 11-25-2024 Cancer Ag 15-3 [Presence] in Serum or Plasma [facility] Start: 11-25-2024 Cancer Ag 27-29 [Presence] in Serum or Plasma [facility] Start: 11-25-2024 [facility] Start: 07-22-2024 Us breast uni real time with image limited ULTRASOUND BREAST LIMITED [facility] Start: 06-15-2024 Patient referral [facility] Work Phone: Start: 05-14-2024 Screening for malignant neoplasm of cervix Pap Smear [facility] Start: 02-08-2024 Influenza vaccination Influenza Vaccine (Season Ended) [facility] Start: 10-28-2023 End: 10-28-2023 Patient encounter procedure 10/28/2023 3:45 PM EDT Office Visit [facility] [address] [place], [place] [id number] Gladis Rausch MD [address] [place] [address] [facility] Start: 10-10-2023 End: 10-10-2023 Admission to same day surgery center 10/10/2023 11:00 AM EDT - 10/10/2023 12:00 PM EDT Surgery [facility] MAIN OR [address] [place] [address] Gladis Rausch MD [address] [place] [phone] HYSTEROSCOPY DILATION AND CURETTAGE, POLYPECTOMY [62294 (CPT )] [facility] Comment on above: HYSTEROSCOPY DILATION AND CURETTAGE, CHUCKY YPECTOMY [36533 (CPT )] Start: 10-10-2023 End: 10-10-2023 Anesthesia consultation 10/10/2023 11:00 AM EDT Anesthesia Event [facility] MA[facility] OR [address] [place] [address] Alyssa Morales, METAL BUILDING ASSEMBLER - BAR ROLLER [address] [place] [address] [facility] Start: 10-10-2023 End: 10-10-2023 Hysteroscopy bx endometrium&/polypc w/wo d&c HYSTEROSCOPY BIOPSY ENDOMETRIUM AND OR POLYPECTOMY Postmenopausal bleeding Polyp of corpus uteri 10/10/2023 11:00 AM EDT [facility] Operating Room Start: 10-10-2023 Subsequent hospital visit by physician 10/10/2023 11:00 AM EDT Hospital Encounter [facility] MAIN OR [address] [facility] [place] [phone] Gladis Rausch MD [address] [place] [phone] [facility] MAIN OR Start: 09-02-2023 End: 09-02-2023 Patient encounter procedure 09/02/2023 4:15 PM EDT Consult [facility] Obstetrics & Gynecology [address] [place] [address] Gladis Rausch MD [address] [place] [phone] [facility] Start: 06-18-2023 End: 06-18-2023 Telemedicine consultation with patient 06/18/2023 4:00 PM EST Telemedicine [facility] Ob[facility]cology [address] [place] [address] Nikko Goldberg MD [address], [address] [place] [address] [facility] Start: 06-17-2023 End: 06-17-2023 Patient encounter procedure 06/17/2023 3:15 PM EST Procedure Visit [facility] Gynecology [address] [place] [phone] Phu Forte MD [address] [place] [phone] [facility] Start: 06-17-2023 End: 06-17-2023 Professional / ancillary services management 06/17/2023 2:45 PM EST Ancillary Procedure [facility] [address] [place] [address] [facility] Start: 05-13-2023 End: 05-13-2024 US.doppler Pelvis vessels US pelvis hysterosonography doppler Imaging Routine Postmenopausal bleeding Expected: 05/13/2023, Expires: 05/13/2024 [facility] Work Phone: Comment on above: Expected: 05/13/2023, Expires: Start: 05-07-2023 Screening for malignant neoplasm of breast Mammogram [facility] Start: 03-27-2023 Venous catheter care management [facility] Start: 02-07-2023 COVID-19 Vaccine () COVID-19 Vaccine () [facility] Start: 02-07-2023 Influenza vaccination [facility] Start: 12-05-2022 Venous catheter care management [facility] Start: 11-05-2022 End: 11-05-2022 ambulatory 11/05/2022 Infusion Visit Chemotherapy Josh Mancuso MD [address], [address] [place] [phone] [facility] Start: 11-05-2022 End: 11-05-2022 Clinical Support Encounter [facility] Start: 10-15-2022 End: 10-15-2022 Clinical Support Encounter [facility] Start: 09-24-2022 End: 09-25-2023 CT Abdomen and Pelvis W contrast IV CT ABDOMEN/PELVIS WITH CONTRAST Imaging Routine Infiltrating ductal carcinoma of left breast Bone lesion Expected: 09/24/2022, Expires: 09/25/2023 [facility] Comment on above: Expected: 09/24/2022, Expires: Start: 09-24-2022 End: 09-25-2023 CT Chest W contrast IV CT CHEST WITH CONTRAST Imaging Routine Infiltrating ductal carcinoma of left breast Bone lesion Expected: 09/24/2022, Expires: 09/25/2023 [facility] Work Phone: Comment on above: Expected: 09/24/2022, Expires: 4 Start: 09-24-2022 End: 09-25-2023 NM Whole body Bone Views NUC BONE SCAN WHOLE BODY Imaging Routine Infiltrating ductal carcinoma of left breast Bone lesion Expected: 09/24/2022, Expires: 09/25/2023 [facility] Comment on above: Expected: 09/24/2022, Expires: 4 Start: 08-22-2022 Venous catheter care management [facility] Start: 07-10-2022 Venous catheter care management [facility] Start: 06-27-2022 Venous catheter care management [facility] Start: 06-27-2022 Cancer Ag 15-3 [Presence] in Serum or Plasma [facility] Start: 06-27-2022 Cancer Ag 27-29 [Presence] in Serum or Plasma [facility] Start: 06-27-2022 Carcinoembryonic Ag [Mass/volume] in Serum or Plasma [facility] Start: 06-19-2022 Positron emission tomography with computed tomography [facility] Work Phone: Start: 06-17-2022 Anesthesia access central venous circulation ANESTH VASCULAR ACCESS [facility] Start: 06-17-2022 Insj tunneled ctr vad w/subq port age 4 yr/> INSERT TUNNELED CV CATH [facility] Start: 06-17-2022 Patient discharge [facility] Start: 06-13-2022 Patient referral [facility] Work Phone: Start: 06-12-2022 Patient referral [facility] Work Phone: Start: 05-24-2022 [facility] Work Phone: Start: 05-24-2022 Therapeutic prophylactic/dx injection subq/im THER/PROPH/DIAG INJ SC/IM [facility] Start: 05-07-2022 MG Breast - bilateral Screening [facility] Work Phone: Start: 05-07-2022 Screening mammography SCRN MAMM (CAD)W/JOHNNY BILAT [facility] Work Phone: Start: 2019 Zoster vaccine hzv live for subcutaneous use ZOSTER (SHINGLES) VACCINE (1 of 2) [facility] Start: 2019 Zoster Vaccines (1 of 2) Zoster Vaccines (1 of 2) [facility] Start: 2014 Screening for malignant neoplasm of colon COLORECTAL CANCER SCREENING DISCUSSION [facility] Start: 2009 Lipid panel LIPID SCREENING [facility] Start: 2009 Screening for malignant neoplasm of breast MAMMOGRAM SCREENING DISCUSSION [facility] Start: 1990 Screening for malignant neoplasm of cervix CERVICAL CANCER SCREENING DISCUSSION [facility] Start: 1988 DTaP/Tdap/Td Vaccines (1 - Tdap) DTaP/Tdap/Td Vaccines (1 - Tdap) [facility] Start: 1988 Hepatitis B Vaccines (1 of 3 - 19+ 3-dose series) Hepatitis B Vaccines (1 of 3 - 19+ 3-dose series) [facility] Start: 1988 Third diphtheria, tetanus and acellular pertussis (DTaP) vaccination TDAP (ADULT) [facility] Start: 1987 Diabetes mellitus screening Diabetes Screening [facility] Start: 1987 Hepatitis C screening Hepatitis C Screening [facility] Start: 1984 HIV screening HIV SCREENING DISCUSSION [facility] Start: 1981 Depression Screening Depression Screening [facility] Start: 1970 MMR Vaccines (1 of 1 - Standard series) MMR Vaccines (1 of 1 - Standard series) [facility] Start: 1969 COVID-19 VACCINE (#1) COVID-19 VACCINE (#1) [facility] Start: 1969 Hepatitis B Vaccines (1 of 3 - 3-dose series) Hepatitis B Vaccines (1 of 3 - 3-dose series) [facility] Start: 1969 Hepatitis C screening HEPATITIS C VIRUS SCREENING [facility] Start: 1969 HIV screening HIV Screening [facility] Start: 1969 Lipid panel Lipid Panel [facility] Start: 1969 Potassium [Moles/volume] in Serum or Plasma POTASSIUM [facility] Start: 1969 Screening for malignant neoplasm of colon [facility] Start: 1969 Tetanus vaccination TETANUS [facility] Anaerobic microbial culture Anaerobic Culture [facility] Work Phone: Blood chemistry [facility] Cancer Ag 15-3 [Presence] in Serum or Plasma [facility] Cancer Ag 15-3 [Presence] in Serum or Plasma [facility] Cancer Ag 15-3 [Presence] in Serum or Plasma [facility] Cancer Ag 15-3 [Presence] in Serum or Plasma [facility] Cancer Ag 27-29 [Presence] in Serum or Plasma [facility] Cancer Ag 27-29 [Presence] in Serum or Plasma [facility] Cancer Ag 27-29 [Presence] in Serum or Plasma [facility] Cancer Ag 27-29 [Presence] in Serum or Plasma [facility] Carcinoembryonic Ag [Mass/volume] in Serum or Plasma [facility] Carcinoembryonic Ag [Mass/volume] in Serum or Plasma [facility] CBC W Auto Different ial panel - Blood [facility] CBC W Auto Different ial panel - Blood [facility] CBC W Auto Different ial panel - Blood [facility] CBC W Auto Different ial panel - Blood [facility] CT Abdomen and Pelvi s W contrast IV [facility] Work Phone: CT Abdomen and Pelvi s W contrast IV [facility] Lactate dehydrogenas e measurement [facility] Lactate dehydrogenas e measurement [facility] Lactate dehydrogenas e measurement [facility] Lactate dehydrogenas e measurement [facility] Measurement of occul t blood in stool specimen using immunoassay [facility] MR Brain WO and W contrast IV [facility] NM Whole body Bone Views [facility] Work Phone: Patient Education ED Chest Pain, Noncardiac ED Hypertension, To Be Confirmed [facility] Work Phone: Patient referral [facility] Work Phone: PET CT of whole body [facility] Positron emission tomography with computed tomography [facility] Work Phone: Positron emission tomography with computed tomography [facility] PT Unspecified body region [facility] Tissue exam [facility] [employer] Work Phone: Comment on above: Release Upon Ordering for 1 Occurrences starting 10/10/2023 [facility] Work Phone: [facility] Payers Date Payer Category Payer Self-pay [id number] 2022 Unknown [id number] 2020 Unknown [id number] 2016 Unknown [id number] 2016 Unknown [id number] 1970 Unknown [id number] 2.16. 840.1.823361.3.579.2.594 1969 Unknown [id number] 2.16.8 40.1.273954.3.579.2.627 1969 Unknown [id number] 2.16.8 40.1.012747.3.579.2.627 Unknown [facility] [employer] .. [id number] Unknown [id number] 2.16.8 40.1.799009.3.579.2.462 Unknown [id number] 2.16.8 40.1.784107.3.579.2.462 Unknown [id number] 2.16.8 40.1.378506.3.579.2.462 Unknown [id number] 2.16.8 40.1.812225.3.579.2.462 Unknown [id number] 2.16.8 40.1.833050.3.579.2.462 Unknown [id number] 2.16.8 40.1.850699.3.579.2.462 Unknown [id number] 2.16.8 40.1.078107.3.579.2.462 Unknown [id number] 2.16.8 40.1.198444.3.579.2.462 Unknown [id number] 2.16.8 40.1.299614.3.579.2.462 Unknown [id number] 2.16.8 40.1.873185.3.579.2.462 Unknown [id number] 2.16.8 40.1.224370.3.579.2.462 Unknown [id number] 2.16.8 40.1.010143.3.579.2.462 Unknown [id number] 2.16.8 40.1.732862.3.579.2.462 Unknown [id number] 2.16.8 40.1.305012.3.579.2.462 Unknown [id number] 2.16.8 40.1.404109.3.579.2.462 Unknown [id number] 2.16.8 40.1.470427.3.579.2.462 Unknown [id number] 2.16.8 40.1.701768.3.579.2.462 Unknown [id number] 2.16.8 40.1.909153.3.579.2.462 Unknown [id number] 2.16.8 40.1.478890.3.579.2.462 Unknown [id number] 2.16.8 40.1.266555.3.579.2.462 Unknown [id number] 2.16.8 40.1.368678.3.579.2.462 Unknown [id number] 2.16.8 40.1.904807.3.579.2.462 Unknown [id number] 2.16.8 40.1.962725.3.579.2.462 Unknown [id number] 2.16.8 40.1.388316.3.579.2.462 Unknown [id number] 2.16.8 40.1.040548.3.579.2.462 Unknown [id number] 2.16.8 40.1.365753.3.579.2.462 Unknown [id number] 2.16.8 40.1.509306.3.579.2.462 Unknown [id number] 2.16.8 40.1.657257.3.579.2.462 Unknown [id number] 2.16.8 40.1.131991.3.579.2.462 Unknown [id number] 2.16.8 40.1.816849.3.579.2.462 Unknown [id number] 2.16.8 40.1.027471.3.579.2.462 Unknown [id number] 2.16.8 40.1.651939.3.579.2.462 Unknown [id number] 2.16.8 40.1.545540.3.579.2.462 Unknown [id number] 2.16.8 40.1.124883.3.579.2.462 Unknown [id number] 2.16.8 40.1.592679.3.579.2.462 Unknown [id number] 2.16.8 40.1.950657.3.579.2.462 Unknown [id number] 2.16.8 40.1.513395.3.579.2.462 Unknown [id number] 2.16.8 40.1.918141.3.579.2.462 Unknown [id number] 2.16.8 40.1.867096.3.579.2.462 Unknown [id number] 2.16.8 40.1.202555.3.579.2.462 Unknown [id number] 2.16.8 40.1.325424.3.579.2.462 Unknown [id number] 2.16.8 40.1.920254.3.579.2.462 Unknown [id number] 2.16.8 40.1.750803.3.579.2.462 Unknown [id number] 2.16.8 40.1.213410.3.579.2.462 Social History Date Type Detail Facility Start: 05-11-2019 End: 01-09-2024 Never smoked tobacco (finding) [facility] Start: 1970 Sex Assigned At Female [facility] Start: 12-06-2021 End: 06-20-2023 Tobacco smoking status RIIS Unknown if ever smoked [facility] Start: 09-24-2022 Tobacco use and exposure Smokeless tobacco non-user [facility] Start: 09-24-2022 End: 10-28-2023 Alcohol intake Current drinker of alcohol (finding) [facility] Start: 09-24-2022 Education 15 [facility] Start: 09-24-2022 Alcohol Comment Occasionally [facility] Start: 1970 Sex Assigned At Not on file [facility] Start: 05-13-2023 End: 10-28-2023 History of Social function [facility] Start: 05-13-2023 End: 10-28-2023 Tobacco use panel [facility] Start: 10-03-2023 Alcohol Comment occasional [facility] Start: 08-24-2024 End: 09-20-2024 Sex Female (finding) [facility] NEGATED: Highlighted row [facility] Medical Equipment Procedure Code Equipment Code Equipment Origin al Text Equipment Identifier Dates Insertion, vascular access port ([id number]) Vascular port/catheter [id number] FDA Start: 06-17-2022 Goals Date Patient Goal Desired Activity /State Mental Status Date Assessment Result Facility 06-17-2022 Cognitive function Voice/Name [facility] Work Phone: 05-24-2022 Cognitive function Voice/Name [facility] Work Phone: 05-23-2022 Cognitive function Voice/Name [facility] Work Phone: Clinical Notes 04-17-2021 to 10-26-2024 Note Date & Type Note Facility 10-26-2024 Progress note [facility] 10-26-2024 Progress note Note Date/Time October 26, 2024 11:27am [facility] [address] [place] [address] OFFICE VISIT Date of Service: 10/26/24 MR#: [id number] Acct: [id number] Name: LISSETT RUSSELL Rep #: [id number] : 1970 Provider: LARA Melton Age/Sex: 54/F Location: [facility] [email or web address] Status: Signed Intake Vital Signs 10/14/24 10:06 10/26/24 11:12 Height 5 ft 8 in 5 ft 8 in Weight: 223 lb 9 oz 228 lb 6 oz BMI 34.0 34.7 BP 126/78 H 120/82 H Blood Pressure Location Lt brachial Position Sitting Sitting Respiration 18 Pulse 83 74 Pulse Source Monitor Temp 98.4 F 98.5 F Temp Source Oral Pulse Oximetry (%) 98 95 Oxygen Delivery Method room air room air Intake Visit Reasons: CONCERN FOR UTI Accompanied by: Self Allergies latex Allergy (Intermediate, Verified 10/26/24 11:06) blisters Medications ?Medication ?Instructions ?Recorded ?Confirmed ?Type cholecalciferol (vitamin D3) 25 1,000 unit PO DAILY 10/26/24 History mcg (1,000 unit) capsule multivitamin 1 cap PO DAILY 02/20/1810/08 History alprazolam 0.25 mg tablet 0.25 mg PO BID PRN anxiety # 14 tabs 06/26/22 10/26/24 Rx biotin 10,000 mcg chewable tablet mcg PO DAILY 4 10/26/24 History (Hair, Skin and Nails (biotin)) tamoxifen 20 mg tablet 60 mg (3 x 20 mg) PO DAILY # 270 04/14/24 10/26/24 Rx TABLETS furosemide 40 mg tablet (Lasix) 40 mg PO .prn 90 days #90 tabs 04/19/24 10/26/24 Rx meloxicam 15 mg tablet 7.5 mg PO DAILY 05/20/24 History pertuzumab 420 mg/14 mL (30 mg/mL) 420 mg (14 mL) .Rou te Q21D #14 mL 06/08/24 10/26/24 Rx intravenous solution (Perjeta) trastuzumab-anns 420 mg 609 mg .Route Q21D #2 ea 10/26/24 Rx intravenous solution (Kanjinti) simvastatin 20 mg tablet 20 mg PO QHS #90 tabs 10/26/24 Rx oxycodone 5 mg tablet 5 - 10 mg PO Q6 PRN 09/23/24 10/26/24 History lidocaine-prilocaine 2.5 %-2.5 % 1 applic topical ONCE PRN port 10/14/24 10/26/24 Rx topical cream access 30 days #30 grams nitrofurantoin 100 mg PO Q12H 5 days #10 ca ps 10/26/24 10/26/24 Rx monohydrate/macrocrystals 100 mg capsule (Macrobid) Nurse's Note: Patient has concerns for a UTI. Patient states it started Thurs evening with theurge to go but then she couldn't. [facility], LATER [facility] Medical History HER2-positive carcinoma of breast Abnormal positron emission tomography (PET) scan Malignant neoplasm of overlapping sites of left female breast Left arm swelling URI (upper respiratory infection) Abnormal findings on diagnostic imaging of skull and head, not elsewhere classified Malignant neoplasm of upper-outer quadrant of left female breast Blood in toilet bowl Encounter for monitoring cardiotoxic drug therapy Adverse effect of antineoplastic and immunosuppressive drugs, initial encounter Mucositis Adverse reaction to drug that acts primarily on skin Port-A-Cath in place Breast cancer metastasized to bone Neck swelling Skull lesion Anxiety about health Wears contact lenses Cancer Alcohol use High cholesterol Back pain Migraine headache Non-smoker Breast abscess Sebaceous cyst of breast Abnormal mammogram of right breast Depression with anxiety Abnormal mammogram of right breast Segmental and somatic dysfunction of cervical region Segmental and somatic dysfunction of thoracic region Segmental and somatic dysfunction of lumbar region Derange anterior horn medial meniscus right knee due to old injury Arthritis Environmental allergies Surgical History History of knee replacement procedure of left knee Total knee replacement status History of cervical polypectomy S/P left breast biopsy No history of previous surgery Family History Brother Asthma Sister Asthma Grandfather Colon cancer Mother Diabetes Grandmother CVA (cerebral vascular accident) Social History household members: spouse Smoking Status: Never smoker alcohol intake: current alcohol intake frequency: holidays/special occasions only substance use type: does not use what type of physical activity do you participate in: walking, aerobics, weighttraining and other details: ELLIPTICAL frequency: 3-4 times per week seatbelt use: always do you feel safe at home: Yes HPI HPI Details: LISSETT RUSSELL, is a 54 F who presents to the office today for initial evaluation at the [facility] for approximately 5 day history of urinary frequency with suprapubic pressure without complaints of dysuria. No complaints of fever, chills, sweats, lightheadedness/dizziness, nausea/vomiting, or chest pain/shortness of breath/dyspnea on exertion/back pain. No changes in color/ character of urine or stool; no urethral/ vaginal discharge. No lpwo-sdm-qczjdsjpjoycfgolym have been taken to assist. No other associated symptoms and no alleviating/aggravating factors. ROS Const Constitutional: No other (As above) Exam Const General: cooperative, healthy appearing and no acute distress Orientation: alert, awake and oriented x3 Chest Chest palpation & inspection: normal inspection of the chest Resp Effort & Inspection: normal respiratory effort and able to speak in complete sentences Cardio Rate: regular rate Pulses: radial pulses present GI Inspection: normal to inspection Palpation: soft and tender suprapubic (Patient describes upon self-palpation) General: No CVA tenderness Skin General: no rashes or lesions noted Neuro General: patient alert, patient awake and patient oriented x3 Cognition: normal cognition Speech: speech normal Psych Appearance: grossly normal Mental Status: mental status grossly normal Mood: congruent mood Affect: normal affect Speech and Movement: speech and movement normal Attitude: cooperative Diagnoses Urinary tract infection N39.0 Assessment and Plan Assessment and Plan (1) Urinary tract infection: Status: Acute Plan: See POC results; urine sent to lab for C/S. Macrobid as prescribed today. Supportive measures as instructed today. Follow-up with PCP in 3 to 5 days should symptoms not improve, ED sooner shouldsymptoms only worsen or any other concerns develop. Patient states acknowledging understanding all the above. Results POC Urinalysis Dip (Clinic) Office Urine Color YELLOW Last Edit by Maria Isabel Lima MA on 10/26/24 11:17 Office Urine Clarity Clear Last Edit by Maria Isabel Lima MA on 10/26/24 11:17 Office Urine Glucose Negative Last Edit by Maria Isabel Lima MA on 10/26/24 11: 17 Office Urine Ketones Negative Last Edit by Maria Isabel Lima MA on 10/26/24 11: 17 Off Ur Spec Orlando 1.015 Last Edit by Maria Isabel Lima MA on 10/26/24 11:17 Office Urine pH 7.0 Last Edit by Maria Isabel Lima MA on 10/26/24 11:17 Office Urine Bilirubin Negative Last Edit by Maria Isabel Lima MA on 10/26/24 11:17 Office Urine Urobilinogen 1 mg/dL Last Edit by Maria Isabel Lima MA on 10/26/24 11:17 Office Urine Blood Moderate Last Edit by Maria Isabel Lima MA on 10/26/24 11:17 Office Urine Blood Hemolyzed Non-Hemolyzed Last Edit by Maria Isabel Lima MA on 10/26/24 11:17 Office Urine Protein Trace Last Edit by Maria Isabel Lima MA on 10/26/24 11:17 Office Urine Nitrate Negative Last Edit by Maria Isabel Lima MA on 10/26/24 11: 17 Off Ur Leukocytes Positive Last Edit by Maria Isabel Lima MA on 10/26/24 11:17 trace Maria Isabel Lima 10/26/24 11:17 Coding Level of Care Code Off vis,new,level 3 Assessment and Plan Assessment and Plan Orders: Orders POC Urinalysis Dip (Clinic) Today R39.15 - Urgency of urination Culture, Urine Today R39.15 - Urgency of urination Medications: New nitrofurantoin monohyd/m-cryst 100 mg (Macrobid) must administer with a meal/food 100 mg PO Q12H 5 days 10 caps 0RF 10/26/24 1127 <Electronically signed by Dain BERMUDEZ> Date _ Dain BERMUDEZ Cosigner Signature: Date (if applicable) CC: ~ [place] [employer] Work Phone: 1(634) 443-582603-06-2025 Radiology Diagnostic study note [facility] Imaging Services [address] [place] [id number] Extremity Lower without Contra MR#: [id number] Acct: [id number] Name: LISSETT RUSSELL Rep #: [id number] : 1970 F 54 From: Osvaldo Cedillo MD PCP: LARA Gomez Status: REG CLI Study:Extremity Lower without Contra Date of Exam: 08/12/24 Exam# [id number] Ordering Dr: Stephen Serrano MD PROCEDURE: EXTREMITY LOWER WITHOUT CONTRA REASON FOR EXAM: Left knee pain Luis protocol. TECHNIQUE: Multiple axial tomographic images of the left hip, left knee and left ankle wereobtained without intravenous contrast administration. Coronal and sagittal reconstruction was obtained as well. COMPARISON: None. FINDINGS: Bones: No evidence of fracture. Joints: Imaging of the left hip was obtained. Minimal joint space narrowing. Imaging of the knee joint was obtained. There is a marked degree of joint spacenarrowing involving the medial compartment of the knee joint with evidence of spur formation along the medial femoral condyle and as well as the medial tibial plateau. There is a moderate degree of osteoarthritis of the patellofemoral joint with degenerative spur formation. Imaging of the ankle joint was obtained. No significant abnormality is seen. Soft Tissues: Small joint effusion. CT/Extremity Lower without Contra IMPRESSION: Marked degree of osteoarthritis with degenerative spur formation of the medial knee joint. One or more dose reduction techniques were used (e.g., Automated exposure control, adjustment of the mA and/or kV according to patient size, use of iterative reconstruction technique). Reading Location: [id number] CC: Dr. Dain Serrano MD; LARA Gomez ~ [employer] Cle[employer] Agent: Signed [facility]03-06-2025 Evaluation note* Diagnosis Onset Date Resolution Status Admit Date Abnormal positron emission tomography (PET) scan acute August 12, 2024 9:17am Breast cancer acute August 12, 2024 9:17am Encounter for monoclonal antibody treatment for malignancy acute August 12, 2024 9:17am Breast cancer acute September 02, 2024 11:33am Encounter for monoclonal antibody treatment for malignancy acute September 02, 2024 11:33am Breast cancer acute September 23, 2024 10:30am Encounter for monoclonal antibody treatment for malignancy acute September 23, 2024 10:30am Breast cancer acute October 14 9:56am Encounter for monoclonal antibody treatment for malignancy acute October 14, 2024 9: 56am Breast cancer acute November 04, 025 10:45am Encounter for monoclonal antibody treatment for malignancy acute November 04, 2024 1 0:45am Wheal acute November 04, 2024 10:45am Breast cancer acute November 25, 2024 10:48am Encounter for monoclonal antibody treatment for malignancy acute November 25, 2024 10:48am [facility] Work Phone: 1(427) 473-467802-13-2025 Evaluation note* Diagnosis Onset Date Resolution Status Admit Date Abnormal positron emission tomography (PET) scan acute July 102024 11:26am Breast cancer acute July 222024 11:26am Encounter for monoclonal antibody treatment for malignancy acute July 22, 025 11:26am Abnormal positron emission tomography (PET) scan acute August 12, 2024 9:17am Breast cancer acute August 12, 2024 9:17am Encounter for monoclonal antibody treatment for malignancy acute August 12, 2024 9:17am Breast cancer acute September 02, 2024 11:33am Encounter for monoclonal antibody treatment for malignancy acute September 02, 2024 11:33am Breast cancer acute September 23, 2024 10:30am Encounter for monoclonal antibody treatment for malignancy acute September 23, 2024 10:30am Breast cancer acute October 14 9:56am Encounter for monoclonal antibody treatment for malignancy acute October 14, 2024 9: 56am [facility] Work Phone: 1(641) 696-456201-23-2025 Evaluation note* Diagnosis Onset Date Resolution Status Admit Date Breast cancer acute June 10:12am Encounter for monoclonal antibody treatment for malignancy acute July 01 10:12am Neoplasm of axillary lymph nodes acute July 01 10:12am Abnormal positron emission tomography (PET) scan acute July 102024 11:26am Breast cancer acute July 222024 11:26am Encounter for monoclonal antibody treatment for malignancy acute July 22, 2 025 11:26am Abnormal positron emission tomography (PET) scan acute August 12, 2024 9:17am Breast cancer acute August 12, 2024 9:17am Encounter for monoclonal antibody treatment for malignancy acute August 12, 2024 9:17am Breast cancer acute September 02, 2024 11:33am Encounter for monoclonal antibody treatment for malignancy acute September 02, 2024 11:33am Breast cancer acute September 23, 2024 10:30am Encounter for monoclonal antibody treatment for malignancy acute September 23, 2024 10:30am Breast cancer acute October 14 9:56am Encounter for monoclonal antibody treatment for malignancy acute October 14, 2024 9: 56am [facility] Work Phone: 1(176) 657-432201-02-2025 Evaluation note* Diagnosis Onset Date Resolution Status Admit Date Breast cancer acute June 10:47am Encounter for monoclonal antibody treatment for malignancy acute June 10 10:47am Erythematous rash acute June 15, 2024 8:57am Breast cancer acute June 12:59pm Erythematous rash acute June 16, 2024 12:59pm Breast cancer acute June 10:12am Encounter for monoclonal antibody treatment for malignancy acute July 01 10:12am Neoplasm of axillary lymph nodes acute July 01 10:12am Abnormal positron emission tomography (PET) scan acute July 102024 11:26am Breast cancer acute July 222024 11:26am Encounter for monoclonal antibody treatment for malignancy acute July 22, 2 025 11:26am Abnormal positron emission tomography (PET) scan acute August 12, 2024 9:17am Breast cancer acute August 12, 2024 9:17am Encounter for monoclonal antibody treatment for malignancy acute August 12, 2024 9:17am Breast cancer acute September 02, 2024 11:33am Encounter for monoclonal antibody treatment for malignancy acute September 02, 2024 11:33am [facility] Work Phone: 1([phone]) 384-278312-12-2024 Evaluation note* Diagnosis Onset Date Resolution Status Admit Date Breast cancer acute May 202023 10:17am Encounter for monoclonal antibody treatment for malignancy acute May 20, 2 024 10:17am Breast cancer acute June 10:47am Encounter for monoclonal antibody treatment for malignancy acute June 10 10:47am Erythematous rash acute June 15, 2024 8:57am Breast cancer acute June 12:59pm Erythematous rash acute June 16, 2024 12:59pm Breast cancer acute June 10:12am Encounter for monoclonal antibody treatment for malignancy acute July 01 10:12am Neoplasm of axillary lymph nodes acute July 01 10:12am Abnormal positron emission tomography (PET) scan acute July 102024 11:26am Breast cancer acute July 222024 11:26am Encounter for monoclonal antibody treatment for malignancy acute July 22, 2 025 11:26am Abnormal positron emission tomography (PET) scan acute August 12, 2024 9:17am Breast cancer acute August 12, 2024 9:17am Encounter for monoclonal antibody treatment for malignancy acute August 12, 2024 9:17am Breast cancer acute September 02, 2024 11:33am Encounter for monoclonal antibody treatment for malignancy acute September 02, 2024 11:33am [facility] Work Phone: 1(431) 411-366111-21-2024 Evaluation note* Diagnosis Onset Date Resolution Status Admit Date Anemia acute April 29, 2024 10:46am Breast cancer acute April 292023 10:46am Encounter for monoclonal antibody treatment for malignancy acute April 29, 2 024 10:46am Breast cancer acute May 202023 10:17am Encounter for monoclonal antibody treatment for malignancy acute May 20, 2 024 10:17am Breast cancer acute June 10:47am Encounter for monoclonal antibody treatment for malignancy acute June 10 10:47am Erythematous rash acute June 15, 2024 8:57am Breast cancer acute June 12:59pm Erythematous rash acute June 16, 2024 12:59pm Breast cancer acute June 10:12am Encounter for monoclonal antibody treatment for malignancy acute July 01 10:12am Neoplasm of axillary lymph nodes acute July 01 10:12am Abnormal positron emission tomography (PET) scan acute July 102024 11:26am Breast cancer acute July 222024 11:26am Encounter for monoclonal antibody treatment for malignancy acute July 22 11:26am Abnormal positron emission tomography (PET) scan acute August 12, 2024 9:17am Breast cancer acute August 12, 2024 9:17am Encounter for monoclonal antibody treatment for malignancy acute August 12, 2024 9:17am [facility] Work Phone: 1(791) 352-128805-21-2024 History of Present illness Narrative* Gladis Rausch MD - 10/28/2023 3:15 PM EDT Lissett uRssell 53 y.o. HPI Pt is s/p Hysteroscopy w/ D&C/Polypectomy. Pathology is benign. Pt w/o complaints. BP 133/82 Pulse 82 Wt 228 lb (103 kg) LMP 04/12/2023 (Exact Date) BMI 33.67 kg/m Review of Systems Constitutional: Negative for fever. Gastrointestinal: Negative for constipation, diarrhea, nausea and vomiting. Genitourinary: Negative for difficulty urinating, flank pain and vaginal bleeding. Objective: Physical Exam Constitutional: She is oriented to person, place, and time. She appears well- developed and well-nourished. Abdominal: Soft. There is no tenderness. Neurological: She is alert and oriented to person, place, and time. Skin: Skin is warm and dry. Psychiatric: She has a normal mood and affect. Her behavior is normal. Assessment: Diagnosis Plan 1. Follow-up surgery care Plan: 1. Pt may resume normal activity with no restrictions. Pt to call w/ any further bleeding. documented in this [facility]05-03-2024 NotePatient: Lissett Russell Procedure Summary Date: 10/10/23 Room / Location: [address] Operating Room Anesthesia Start: 1033 Anesthesia Stop: 110 Procedure: HYSTEROSCOPY DILATION AND CURETTAGE, POLYPECTOMY Diagnosis: Postmenopausal bleeding Polyp of corpus uteri Surgeons: Gladis Rausch MD Responsible Provider: Josh Orlando MD Anesthesia Type: general ASA Status: 2 Anesthesia Type: general Vitals Value Taken Time BP 107/90 10/10/23 1104 Temp 36.7 ?C (98.1 ?F) 10/10/23 1104 Pulse 85 10/10/23 1104 Resp 20 10/10/23 1104 SpO2 100 % 10/10/23 110 Anesthesia Post Evaluation Patient location during evaluation: PACU Patient participation: complete - patient participated Level of consciousness: awake and alert Pain management: satisfactory to patient Airway patency: patent Dental Injury: no Cardiovascular status: acceptable, blood pressure returned to baseline and hemodynamically stable Respiratory status: acceptable and spontaneous ventilation Hydration status: euvolemic Nausea/Vomiting: controlled No notable events documented. Patient can be discharged once all PACU criteria has been met.[facility]05-03-2024 NotePatient: Lissett Russell Procedure Summary Date: 10/10/23 Room / Location: [address] Operating Room Anesthesia Start: 1033 Anesthesia Stop: 1106 Procedure: HYSTEROSCOPY DILATION AND CURETTAGE, POLYPECTOMY Diagnosis: Postmenopausal bleeding Polyp of corpus uteri Surgeons: Gladis Rausch MD Responsible Provider: Josh Orlando MD Anesthesia Type: general ASA Status: 2 Anesthesia Type: general Vitals Value Taken Time BP 107/90 10/10/23 1104 Temp 36.7 ?C (98.1 ?F) 10/10/23 1104 Pulse 85 10/10/23 1104 Resp 20 10/10/23 1104 SpO2 100 % 10/10/23 1104 Anesthesia Post Evaluation Patient location during evaluation: PACU Patient participation: complete - patient participated Level of consciousness: awake Pain management: satisfactory to patient Multimodal analgesia pain management approach Airway patency: patent Two or more strategies used to mitigate risk of obstructive sleep apnea Cardiovascular status: acceptable and hemodynamically stable Respiratory status: acceptable, spontaneous ventilation and face mask Hydration status: acceptable No notable events documented. MIPS #430 PONV Patient received an inhalational anesthetic (4554F) Patient does not exhibit three or more risk factors for PONV (X0430)) MIPS # 424 Perioperative Temperature Management Anesthesia time was less than 60 minutes (4256F) MIPS #477 Multimodal Pain Management Not emergent case Patient was administered multimodal pain management (two or more drugs and/or interventions excluding systemic opioids) in the periopeartive period occurring at some time between 6 hours prior to anesthesia start time until discharged from PACU (G2148) MIPS #404 Anesthesiology Smoking Abstinence The patient is not a current smoker (e.g. cigarette, cigar, pipe, e-cigarette/vaping/marijuana) If no stop here (XX404) I completed my handoff to the receiving clinician during which we: 1. Identified the patient 2. Identified the responsible provider 3. Reviewed the pertinent medical history 4. Discussed the surgical course 5. Reviewed intra-op anesthesia management and issues during anesthesia 6. Set expectations for post-procedure period 7. Allowed opportunity for questions and acknowledgement of understanding.[facility]05-03-2024 NoteAirway Date/Time: 10/10/2023 10:44 AM Urgency: scheduled Airway not difficult General Information and Staff Patient location during procedure: Procedural Resident/MANAGER FILM: Zina Hinds APRN - MANAGER FILM Performed: MANAGER FILM Indications and Patient Condition Indications for airway management: anesthesia Sedation level: Asleep Preoxygenated: yes Patient position: sniffing Mask difficulty assessment: 0 - not attempted Final Airway Details Final airway type: supraglottic airway Successful airway: Igel Size 4 Number of attempts at approach: 1 Additional Comments Lubed & placed w/ease, atraumatic, dentition & oral mucosa unchanged. [facility]05-03-2024 Note* Perioperative Nursing Note - Ivonne Pineda RN - 10/10/2023 11:11 AM EDT Patient arrived on unit. Name and date verified. Attached to monitors. Vital signs stable. 1122 - family at bedside 1135 - pt ambulated to bathroom with steady gait. Voided without complication. 1145 - Patient is A&O x4. States pain is at a tolerable level. Denies dizziness and nausea. IV removed without complication. All belongings returned and accounted for. DC instructions gone over with patient and family. All questions answered. Verbalized understanding. [id number]* Perioperative Nursing Note - Ivonne Pineda RN - 10/10/2023 11:11 AM EDT Patient arrived on unit. Name and date verified. Attached to monitors. Vital signs stable. 1122 - family at bedside 1135 - pt ambulated to bathroom with steady gait. Voided without complication. 1145 - Patient is A&O x4. States pain is at a tolerable level. Denies dizziness and nausea. IV removed without complication. All belongings returned and accounted for. DC instructions gone over with patient and family. All questions answered. Verbalized understanding. [id number] Miscellaneous Notes* Perioperative Nursing Note - Ivonne Pineda RN - 10/10/2023 11:11 AM EDT Patient arrived on unit. Name and date verified. Attached to monitors. Vital signs stable. 1122 - family at bedside 1135 - pt ambulated to bathroom with steady gait. Voided without complication. 1145 - Patient is A&O x4. States pain is at a tolerable level. Denies dizziness and nausea. IV removed without complication. All belongings returned and accounted for. DC instructions gone over with patient and family. All questions answered. Verbalized understanding. * Op Note - Gladis Rausch MD - 10/10/2023 10:37 AM EDT Pre-Op Diagnosis: PMB, Endometrial Polyp Post-Op Diagnosis: Same Operative Procedure: Operative Hysteroscopy w/ D&C, Myosure Polypectomy Surgeon: Dr. Rausch Roof Tiler: None Findings: Polyp noted on the posterior wall of the uterus, clear vesicles noted on the left and right lateral sidewalls. Specimen: Polyp, EMC Serna: None EBL: Negligable Fluids: 300cc LR Anesthesia: General Saline Def: 170cc The patient was brought back tot he operating room, placed in dorsal lithotomy position, prepped and draped in the normal sterile fashion. A weighted speculum was placed into the vagina. A almodovar retractor was placed anteriorly to allow visualization of the cervix. The cervix was grasped w/ a single tooth tenaculum and progressively dilated to allow placement of a Myosure hysteroscope. Saline infusion was begun. Using a Myosure device the polyps and vesicles noted above were removed. A sharp curettage was then performed . The procedure was deemed compete. The single tooth tenaculum was removed from the cervix. The tenaculum sites were hemostatic . All instrumentation was removed from the vagina. Sponges and instruments were counted times two and noted to be correct. The patient was awakenedfrom anesthesia and brought to the recovery room in stable condition. [facility] [facility] Hospital Discharge instructions* Discharge Instructions* Gladis Rausch MD - 10/10/2023 10:59 AM EDT Vaginal Procedure Discharge Instructions It is normal to have vaginal bleeding following your procedure. Please call if bleeding seems excessive or heavy. Abdominal/pelvic cramping is normal. Please call if you are experiencing severe abdominal pain. Please call if you develop a fever that does not respond to Tylenol or is > 101 F. You may do stairs when you get home and may eat or drink anything you like. Please avoid douching, tampons, and intercourse for 2 weeks. You may take a bath or go swimming if desired. You may resume all other activities when you feel ready to do so. Please avoid driving while using narcotics if they have been prescribed to you. If you do not have a post-operative appointment scheduled please call the office and have this scheduled in 2 weeks. If you have any other Questions please feel free to call [phone]. Dr. Rausch documented in this [facility]05-03-2024 Note* Op Note - Gladis Rausch MD - 10/10/2023 10:37 AM EDT Pre-Op Diagnosis: PMB, Endometrial Polyp Post-Op Diagnosis: Same Operative Procedure: Operative Hysteroscopy w/ D&C, Myosure Polypectomy Surgeon: Dr. Rausch Roof Tiler: None Findings: Polyp noted on the posterior wall of the uterus, clear vesicles noted on the left and right lateral sidewalls. Specimen: Polyp, EMC Serna: None EBL: Negligable Fluids: 300cc LR Anesthesia: General Saline Def: 170cc The patient was brought back tot he operating room, placed in dorsal lithotomy position, prepped and draped in the normal sterile fashion. A weighted speculum was placed into the vagina. A almodovar retractor was placed anteriorly to allow visualization of the cervix. The cervix was grasped w/ a single tooth tenaculum and progressively dilated to allow placement of a Myosure hysteroscope. Saline infusion was begun. Using a Myosure device the polyps and vesicles noted above were removed. A sharp curettage was then performed . The procedure was deemed compete. The single tooth tenaculum was removed from the cervix. The tenaculum sites were hemostatic . All instrumentation was removed from the vagina. Sponges and instruments were counted times two and noted to be correct. The patient was awakenedfrom anesthesia and brought to the recovery room in stable condition. [id number]* Op Note - Gladis Rausch MD - 10/10/2023 10:37 AM EDT Pre-Op Diagnosis: PMB, Endometrial Polyp Post-Op Diagnosis: Same Operative Procedure: Operative Hysteroscopy w/ D&C, Myosure Polypectomy Surgeon: Dr. Rausch Roof Tiler: None Findings: Polyp noted on the posterior wall of the uterus, clear vesicles noted on the left and right lateral sidewalls. Specimen: Polyp, EMC Serna: None EBL: Negligable Fluids: 300cc LR Anesthesia: General Saline Def: 170cc The patient was brought back tot he operating room, placed in dorsal lithotomy position, prepped and draped in the normal sterile fashion. A weighted speculum was placed into the vagina. A almodovar retractor was placed anteriorly to allow visualization of the cervix. The cervix was grasped w/ a single tooth tenaculum and progressively dilated to allow placement of a Myosure hysteroscope. Saline infusion was begun. Using a Myosure device the polyps and vesicles noted above were removed. A sharp curettage was then performed . The procedure was deemed compete. The single tooth tenaculum was removed from the cervix. The tenaculum sites were hemostatic . All instrumentation was removed from the vagina. Sponges and instruments were counted times two and noted to be correct. The patient was awakenedfrom anesthesia and brought to the recovery room in stable condition. [id number] NotePt w/ a Hx of Breast Ca on Tamoxifen and has had PMB. Polyp was noted on US and pt presents for surgical management and evaluation. LMP 04/12/2023 (Exact Date) Past Medical History: Diagnosis Date Breast cancer (HCC) left GERD (gastroesophageal reflux disease) High cholesterol simvastatin Leg swelling Migraines Minor injury of knee R knee (torn miniscus & stress fracture) Past Surgical History: Procedure Laterality Date PORTACATH PLACEMENT Right Assessment: PMB Endometrial Polyp Plan: [facility] w/ [facility]05-02[facility]24 History and physical note* Gladis Rausch MD - 10/09/2023 10:03 AM EDT Pt w/ a Hx of Breast Ca on Tamoxifen and has had PMB. Polyp was noted on US and pt presents for surgical management and evaluation. LMP 04/12/2023 (Exact Date) Past Medical History: Diagnosis Date Breast cancer (HCC) left GERD (gastroesophageal reflux disease) High cholesterol simvastatin Leg swelling Migraines Minor injury of knee R knee (torn miniscus & stress fracture) Past Surgical History: Procedure Laterality Date PORTACATH PLACEMENT Right Assessment: PMB Endometrial Polyp Plan: Hysteroscopy w/ D&C [facility]MR[facility]T Work Phone: [phone] 900-849505-02-2024 History and physical note* Gladis Rausch MD - 10/09/2023 10:03 AM EDT Pt w/ a Hx of Breast Ca on Tamoxifen and has had PMB. Polyp was noted on US and pt presents for surgical management and evaluation. LMP 04/12/2023 (Exact Date) Past Medical History: Diagnosis Date Breast cancer (HCC) left GERD (gastroesophageal reflux disease) High cholesterol simvastatin Leg swelling Migraines Minor injury of knee R knee (torn miniscus & stress fracture) Past Surgical History: Procedure Laterality Date PORTACATH PLACEMENT Right Assessment: PMB Endometrial Polyp Plan: Hysteroscopy w/ D&C documented in this [facility]04-29-2024 NoteBasic chart review completed in preparation for upcoming procedure. Standard preoperative orders placed for DOS per anesthesia protocol. Allergies: Patient has no known allergies. Social History: TOBACCO: reports that she has never smoked. She has never used smokeless tobacco. ETOH: reports current alcohol use. Social History Substance and Sexual Activity Drug Use No EKG: No results found for this or any previous visit. ECHO and EF: No results found for this or any previous visit. Labs: No results found for: WBC, HGB, HCT, MCV, PLT No results found for: NA, K, CL, CO2, BUN, CREATININE, GLUCOSE, CALCIUM, PROT, BILITOT, ALKPHOS, AST, ALT, LABGLOM, AGRATIO, GLOB Past Medical History: Past Medical History: Diagnosis Date Breast cancer (HCC) left GERD (gastroesophageal reflux disease) High cholesterol simvastatin Leg swelling Migraines Minor injury of knee R knee (torn miniscus & stress fracture) Past Surgical History: Past Surgical History: Procedure Laterality Date PORTACATH PLACEMENT [facility]04-29-2024 History of Present illness Narrative* SEGUN Mitchell CNP - 10/06/2023 12:34 PM EDT Basic chart review completed in preparation for upcoming procedure. Standard preoperative orders placed for DOS per anesthesia protocol. Allergies: Patient has no known allergies. Social History: TOBACCO: reports that she has never smoked. She has never used smokeless tobacco. ETOH: reports current alcohol use. Social History Substance and Sexual Activity Drug Use No EKG: No results found for this or any previous visit. ECHO and EF: No results found for this or any previous visit. Labs: No results found for: WBC, HGB, HCT, MCV, PLT No results found for: NA, K, CL, CO2, BUN, CREATININE, GLUCOSE, CALCIUM, PROT, BILITOT, ALKPHOS, AST, ALT, LABGLOM, AGRATIO, GLOB Past Medical History: Past Medical History: Diagnosis Date Breast cancer (HCC) left GERD (gastroesophageal reflux disease) High cholesterol simvastatin Leg swelling Migraines Minor injury of knee R knee (torn miniscus & stress fracture) Past Surgical History: Past Surgical History: Procedure Laterality Date PORTACATH PLACEMENT Right documented in this [facility]04-26-2024 NotePatient: Lissett Russell Procedure Information Date/Time: 10/10/23 1100 Procedure: HYSTEROSCOPY DILATION AND CURETTAGE, POLYPECTOMY - 60 MINS TOTAL Location: [facility] Operating Room Surgeons: Gladis Rausch MD Relevant Problems No relevant active problems Past Medical History: Past Medical History: No date: Breast cancer (HCC) Comment: left No date: GERD (gastroesophageal reflux disease) No date: High cholesterol Comment: simvastatin No date: Leg swelling No date: Migraines No date: Minor injury of knee Comment: R knee (torn miniscus & stress fracture) Past Surgical History: Past Surgical History: No date: PORTACATH PLACEMENT; Right Social History: TOBACCO: reports that she has never smoked. She has never used smokeless tobacco. ETOH: reports current alcohol use. Social History Substance and Sexual Activity Drug Use No Family History: Family History Problem Relation Name Age of Onset Diabetes Mother Stroke Paternal Grandmother Colon cancer Maternal Grandfather Screening: Postmenopausal Clinical information reviewed: Tobacco Allergies Meds Med Hx Surg Hx Fam Hx Soc Hx Physical Exam Airway Mallampati: III TM distance: >3 FB Neck ROM: full Mouth Open: normalendotracheal tube not in place Cardiovascular Dental dentition normal Pulmonary Abdominal Anesthesia Plan patient is NPO appropriate Any family history or previous problems with anesthesia no ASA 2 general Any family history or previous problems with anesthesia no The patient is not a current smoker. Patient was not previously instructed to abstain from smoking on day of procedure. Anesthetic plan and risks discussed with patient and spouse. ERAS Type ANNALEE Screening Labs: No results found for: WBC, HGB, HCT, MCV, PLT No results found for: NA, K, CL, CO2, BUN, CREATININE, GLUCOSE, CALCIUM, PROT, BILIRUBINFL, ALKPHOS, AST, ALT, EGFR, GLOB No echocardiogram results found for the past 14 days No results found for this or any previous visit.[facility] 10-03-2023 NoteComprehensive Pre Surgical History and Physical ? Name: Lissett Russell : 1970 (Age-53 y.o.) Date of Service: Pt seen/examined on 10/03/2023 Procedure Information Date/Time: 10/10/23 1100 Procedure: HYSTEROSCOPY DILATION AND CURETTAGE, POLYPECTOMY - 60 MINS TOTAL Location: [facility] OR Operating Room Surgeons: Gladis Rausch MD Chief Complaint: Postmenopausal bleeding [N95.0] Polyp of corpus uteri [N84.0] ASSESSMENT/PLAN: Patient is considered intermediate risk for this intermediate level 1 risk procedure/surgery () with no reducible risk factors. Based on the above evaluation, the benefits of the planned procedure likely exceed the risks. The patient is medically optimized to proceed with the planned procedure without any further cardiopulmonary testing. 1) Postmenopausal bleeding [N95.0] Polyp of corpus uteri [N84.0] - Managed per surgery - Orders per PAT Protocol: BMP, CBC - had both drawn at [facility] on 10/02/2023 - will scan into chart once faxed to [facility] - METS >4 2) Hx of breast cancer in 2022 - MEDS: tamoxifen, Perjeta injections, Kanjinti - No surgery - Managed by [facility] Oncology - last Visit 10/02/2023 - CBC drawn at [facility] on 10/02/2023 3) Leg swelling - MEDS: lasix - Managed by [facility] Oncology - BMP drawn at [facility] on 10/02/2023 4) Hyperlipidemia - MEDS: Zocar -Managed by Dr. Kim (PCP) - last OV 08/2023 - lifestyle modifications encouraged Visit Type: Pre-Admission Testing Visit Labs Ordered: NO - COMPLETE PRIOR TO PAT VISIT Sleep Referral Ordered: NO - NEGATIVE SCREEN PER SLEEP REFERRAL PROTOCOL Total time spent (which include face to face and non face to face encounters) : 30 minutes Toxic drug monitoring/narrow therapeutic index drug monitoring : # Drug name : Lasix, Perjeta injections, Kanjinti # Route administered : PO, IV # Method of monitoring : BMP, CBC PAT Protocol referenced includes: 1. Anesthesia Lab Protocol Orders 2. Perioperative Cardiovascular Risk Assessment 3. Anesthesia Assessment 4. Pain Assessment and Acute Pain Service Consult (if appropriate) 5. Medical Clearance/Consult from Internal Medicine (IMS) 6. Shower/Wash Order (for designated surgeries) 7. ANNALEE Screen and Sleep Clinic Referral (if appropriate) History Of Present Illness: 53 y.o. female who we are asked to see/evaluate by Gladsi Rausch MD for pre-operative evaluation prior to HYSTEROSCOPY DILATION AND CURETTAGE, POLYPECTOMY - 60 MINS TOTAL ? From last office visit with Gladis Rausch MD on 08/12/2023: Pt has a history of breast cancer. She is on tamoxifen. She went 11 months then bled. She was uncertain if it was from her rectum and she told primary. Discussed getting a colonoscopy. Discussed US, she has a polyp. PLAN: D&C, hysteroscopy. Patient denies exertional chest pain/shortness of breath. Denies dizziness, syncope, lightheadedness. Denies fever, chills, weakness or fatigue. Patient denies any recent illness, infections, or wounds. Patient denies abdominal pain, nausea, vomiting, diarrhea, or constipation. Patient denies hx of CAD, CHF, HI, TIA/CVA, diabetes, COPD, asthma, ANNALEE, DVT/PE. Past Medical History: Past Medical History: No date: Breast cancer (HCC) Comment: left No date: GERD (gastroesophageal reflux disease) No date: High cholesterol Comment: simvastatin No date: Leg swelling No date: Migraines No date: Minor injury of knee Comment: R knee (torn miniscus & stress fracture) Past Surgical History: Past Surgical History: No date: PORTACATH PLACEMENT; Right Medications Prior to Admission: Current Outpatient Medications on File Prior to Visit Medication Sig Dispense Refill BIOTIN PO Take by mouth daily. furosemide (Lasix) 40 MG tablet Take by mouth Daily as needed. Kanjinti 420 MG Every 21 days multivitamin (Theragran) tablet Take 1 tablet by mouth daily. pertuzumab (Perjeta) 420 MG/14ML injection Every 21 days Pyridoxine HCl (VITAMIN B-6 PO) Take by mouth daily. simvastatin (Zocor) 20 MG tablet Take 20 mg by mouth Nightly. tamoxifen (Nolvadex) 20 MG tablet Take 20 mg by mouth 2 times daily. No current facility-administered medications on file prior to visit. CHRONIC NARCOTIC USE: No Do you have a history of chronic opioid use? No Allergies: Patient has no known allergies. If patient has opioid allergy, is it okay to take Acetaminophen: Yes Social History: TOBACCO: reports that she has never smoked. She has never used smokeless tobacco. ETOH: reports current alcohol use. Social History Substance and Sexual Activity Drug Use No Family History: Family History Problem Relation Name Age of Onset Diabetes Mother Stroke Paternal Grandmother Colon cancer Maternal Grandfather REVIEW OF SYSTEMS: Review o (more content not included)...[facility]04-26-2024 NoteComprehensive Pre Surgical History and Physical ? Name: Lissett Russell : 1970 (Age-53 y.o.) Date of Service: Pt seen/examined on 10/03/2023 Procedure Information Date/Time: 10/10/23 1100 Procedure: HYSTEROSCOPY DILATION AND CURETTAGE, POLYPECTOMY - 60 MINS TOTAL Location: [facility] OR Operating Room Surgeons: Gladis Rausch MD Chief Complaint: Postmenopausal bleeding [N95.0] Polyp of corpus uteri [N84.0] ASSESSMENT/PLAN: Patient is considered intermediate risk for this intermediate level 1 risk procedure/surgery () with no reducible risk factors. Based on the above evaluation, the benefits of the planned procedure likely exceed the risks. The patient is medically optimized to proceed with the planned procedure without any further cardiopulmonary testing. 1) Postmenopausal bleeding [N95.0] Polyp of corpus uteri [N84.0] - Managed per surgery - Orders per PAT Protocol: BMP, CBC - had both drawn at [facility] on 10/02/2023 - will scan into chart once faxed to PAT - METS >4 2) Hx of breast cancer in 2022 - MEDS: tamoxifen, Perjeta injections, Kanjinti - No surgery - Managed by [facility] On[facility] - last Visit 10/02/2023 - CBC drawn at [facility] on 10/02/2023 3) Leg swelling - MEDS: lasix - Managed by [facility] - BMP drawn at [facility] on 10/02/2023 4) Hyperlipidemia - MEDS: Zocar -Managed by Dr. Kim (PCP) - last OV 08/2023 - lifestyle modifications encouraged Visit Type: Pre-Admission Testing Visit Labs Ordered: NO - COMPLETE PRIOR TO PAT VISIT Sleep Referral Ordered: NO - NEGATIVE SCREEN PER SLEEP REFERRAL PROTOCOL Total time spent (which include face to face and non face to face encounters) : 30 minutes Toxic drug monitoring/narrow therapeutic index drug monitoring : # Drug name : Lasix, Perjeta injections, Kanjinti # Route administered : PO, IV # Method of monitoring : BMP, CBC PAT Protocol referenced includes: 1. Anesthesia Lab Protocol Orders 2. Perioperative Cardiovascular Risk Assessment 3. Anesthesia Assessment 4. Pain Assessment and Acute Pain Service Consult (if appropriate) 5. Medical Clearance/Consult from Internal Medicine (IMS) 6. Shower/Wash Order (for designated surgeries) 7. ANNALEE Screen and Sleep Clinic Referral (if appropriate) History Of Present Illness: 53 y.o. female who we are asked to see/evaluate by Gladis Rausch MD for pre-operative evaluation prior to HYSTEROSCOPY DILATION AND CURETTAGE, POLYPECTOMY - 60 MINS TOTAL ? From last office visit with Gladis Rausch MD on 08/12/2023: Pt has a history of breast cancer. She is on tamoxifen. She went 11 months then bled. She was uncertain if it was from her rectum and she told primary. Discussed getting a colonoscopy. Discussed US, she has a polyp. PLAN: D&C, hysteroscopy. Patient denies exertional chest pain/shortness of breath. Denies dizziness, syncope, lightheadedness. Denies fever, chills, weakness or fatigue. Patient denies any recent illness, infections, or wounds. Patient denies abdominal pain, nausea, vomiting, diarrhea, or constipation. Patient denies hx of CAD, CHF, HI, TIA/CVA, diabetes, COPD, asthma, ANNALEE, DVT/PE. Past Medical History: Past Medical History: No date: Breast cancer (HCC) Comment: left No date: GERD (gastroesophageal reflux disease) No date: High cholesterol Comment: simvastatin No date: Leg swelling No date: Migraines No date: Minor injury of knee Comment: R knee (torn miniscus & stress fracture) Past Surgical History: Past Surgical History: No date: PORTACATH PLACEMENT; Right Medications Prior to Admission: Current Outpatient Medications on File Prior to Visit Medication Sig Dispense Refill BIOTIN PO Take by mouth daily. furosemide (Lasix) 40 MG tablet Take by mouth Daily as needed. Kanjinti 420 MG Every 21 days multivitamin (Theragran) tablet Take 1 tablet by mouth daily. pertuzumab (Perjeta) 420 MG/14ML injection Every 21 days Pyridoxine HCl (VITAMIN B-6 PO) Take by mouth daily. simvastatin (Zocor) 20 MG tablet Take 20 mg by mouth Nightly. tamoxifen (Nolvadex) 20 MG tablet Take 20 mg by mouth 2 times daily. No current facility-administered medications on file prior to visit. CHRONIC NARCOTIC USE: No Do you have a history of chronic opioid use? No Allergies: Patient has no known allergies. If patient has opioid allergy, is it okay to take Acetaminophen: Yes Social History: TOBACCO: reports that she has never smoked. She has never used smokeless tobacco. ETOH: reports current alcohol use. Social History Substance and Sexual Activity Drug Use No Family History: Family History Problem Relation Name Age of Onset Diabetes Mother Stroke Paternal Grandmother Colon cancer Maternal Grandfather REVIEW OF SYSTEMS: Review o (more content not included)...[facility]03-26-2024 History of Present illness Narrative* Gladis Rausch MD - 09/02/2023 4:15 PM EDT Patient seeing me today per Dr. Goldberg to discuss proceeding with hysteroscopy and D&C. Patient has a history of breast cancer had chemotherapy and is currently on tamoxifen. She is also receiving immunotherapy every 21 days. She is unsure of her receptor testing. States had bleeding in Apr and has had none since that time. On ultrasound there is a 1 cm intrauterine polyp noted. Blood flow was noted within the polyp BP 120/77 Pulse 88 Ht 5' 8.5 (1.74 m) Wt 225 lb (102 kg) LMP 04/12/2023 (Exact Date) BMI33.71 kg/m Past Medical History: Diagnosis Date Breast cancer (HCC) High cholesterol simvastatin Minor injury of knee R knee (torn miniscus & stress fracture) No past surgical history on file. Assessment: Diagnosis Plan 1. Postmenopausal bleeding 2. Endometrial polyp Plan: Will proceed with hysteroscopy as well as D&C. As a #1. Based on clinical findings, a hysteroscopy/D&C is recommended for further evaluation. The procedure was discussed with the patient in detail. She is aware that the procedure involves visualizing the endometrium with a camera and that tissue will be obtained for pathology. Risks associated with the procedure include, but are not limited to, anesthetic risks, bleeding, infection, and the risk of uterine perforation, which can be associated with bowel and bladder injury. The patient was given the opportunity to ask questions and all questions were answered today to the best of my ability. documented in this [facility]03-05-2024 History of Present illness Narrative* Nikko Giraldo MD - 08/12/2023 10:30 AM EST Chief Complaint Patient presents with Follow-up Review SIS Patient's last menstrual period was 04/12/2023 (exact date). History: Past Medical History: Diagnosis Date High cholesterol simvastatin Minor injury of knee R knee (torn miniscus & stress fracture) No past surgical history on file. Family History Problem Relation Name Age of Onset Diabetes Mother Stroke Paternal Grandmother Colon cancer Maternal Grandfather Social History Tobacco Use Smoking status: Never Smokeless tobacco: Never Substance Use Topics Alcohol use: Yes Drug use: No Allergies: No Known Allergies Medications: Current Outpatient Medications on File Prior to Visit Medication Sig Dispense Refill furosemide (Lasix) 40 MG tablet pertuzumab (Perjeta) 420 MG/14ML injection simvastatin (Zocor) 20 MG tablet tamoxifen (Nolvadex) 20 MG tablet No current facility-administered medications on file prior to visit. HPI: Pt has a history of breast cancer snhe is on tamoxifen she went 11 months then bled she was uncertain if it was from her rectum and she told primary discussed getting a colonsocpy Discussed us she has a polyp d and c hysteroscopy ROS: Review of Systems Gastrointestinal: Negative for blood in stool, constipation, diarrhea, nausea and rectal pain. Genitourinary: Negative for difficulty urinating, menstrual problem, pelvic pain, vaginal bleeding and vaginal discharge. exam: BP (!) 150/81 Pulse 88 Wt 226 lb (103 kg) LMP 04/12/2023 (Exact Date) BMI 33.86 kg/m Physical Exam Constitutional: Appearance: Normal appearance. HENT: Head: Normocephalic and atraumatic. Eyes: Conjunctiva/sclera: Conjunctivae normal. Musculoskeletal: Cervical back: Normal range of motion. Skin: General: Skin is warm and dry. Neurological: General: No focal deficit present. Mental Status: She is alert and oriented to person, place, and time. Mental status is at baseline. Psychiatric: Mood and Affect: Mood normal. Behavior: Behavior normal. Thought Content: Thought content normal. Judgment: Judgment normal. Assessment and Plan: Lissett was seen today for follow-up. Diagnoses and all orders for this visit: Postmenopausal bleeding (Primary) Care related to current tamoxifen use Endometrial polyp Proceed with hysteroscopy d and c No follow-ups on file. documented in this [facility]12-05-2023 History of Present illness Narrative* Nikko Giraldo MD - 05/13/2023 8:30 AM EST Chief Complaint Patient presents with Vaginal Bleeding Patient's last menstrual period was 04/12/2023 (exact date). History: Past Medical History: Diagnosis Date High cholesterol simvastatin Minor injury of knee R knee (torn miniscus & stress fracture) History reviewed. No pertinent surgical history. Family History Problem Relation Name Age of Onset Diabetes Mother Stroke Paternal Grandmother Colon cancer Maternal Grandfather Social History Tobacco Use Smoking status: Never Smokeless tobacco: Never Substance Use Topics Alcohol use: Yes Drug use: No Allergies: No Known Allergies Medications: Current Outpatient Medications on File Prior to Visit Medication Sig Dispense Refill simvastatin (Zocor) 20 MG tablet tamoxifen (Nolvadex) 20 MG tablet No current facility-administered medications on file prior to visit. HPI: Pt is on tamoxifen for 1 year she had an episode of bleeding but she is not sure if rectal or vaginal it was one time she is doing colograd . She has some cramping Diagnosis: Left breast lesion. Pathologic Diagnosis Outside Slides: [id number] (06/06/2022) A. Left Breast at 2 o'clock, Core Biopsy: Invasive ductal carcinoma, grade 2 (score: tubule 3, nuclear 2, mitotic 1), 1.1 cm in greatest length Manual immunohistochemical quantification using stains performed at outside institute: Estrogen Receptor: positive (98%, strong intensity) Progesterone Receptor: positive (10%, moderate intensity) HER2: Not provided B. Left Breast at 1 o'clock, Core Biopsy: Invasive ductal carcinoma, grade 2 (score: tubule 3, nuclear 2, mitotic 1), 0.9 cm in greatest length Manual immunohistochemical quantification using stains performed at outside institute: Estrogen Receptor: positive (98%, strong intensity) Progesterone Receptor: positive (10%, moderate intensity) HER2: positive (Score 3+) Pt currently on tamoxifen ROS: Review of Systems Gastrointestinal: Negative for blood in stool, constipation, diarrhea and rectal pain. Genitourinary: Positive for pelvic pain. Negative for difficulty urinating, vaginal bleeding, vaginal discharge and vaginal pain. exam: BP (!) 148/84 Pulse 85 Wt 227 lb (103 kg) LMP 04/12/2023 (Exact Date) BMI 34.01 kg/m Physical Exam Constitutional: Appearance: Normal appearance. Eyes: Conjunctiva/sclera: Conjunctivae normal. Pulmonary: Effort: Pulmonary effort is normal. Genitourinary: General: Normal vulva. Vagina: Normal. Cervix: Normal. Uterus: Normal. Adnexa: Right adnexa normal and left adnexa normal. Skin: General: Skin is warm and dry. Neurological: General: No focal deficit present. Mental Status: She is alert and oriented to person, place, and time. Mental status is at baseline. Psychiatric: Mood and Affect: Mood normal. Behavior: Behavior normal. Thought Content: Thought content normal. Judgment: Judgment normal. Assessment and Plan: Lissett was seen today for vaginal bleeding. Diagnoses and all orders for this visit: Postmenopausal bleeding (Primary) - US pelvis hysterosonography doppler; Future Care related to current tamoxifen use History of left breast cancer No follow-ups on file. documented in this [facility]04-18-[facility]23 History of Present illness Narrative* Josh Mancuso MD - 09/24/2022 3:40 PM EDT Lissett Russell is a 52 y.o. female with history of ER+, CO+, HER2+, IDC of the left breast and axillary lymph nodes diagnosed on 06/06/22. Imaging showed findings that are concerning for for osseous metastasis. Local Medical Oncologist: Dr. Cristóbal Ford History of Present Illness: ONCOLOGIC HISTORY: 05/07/22 Bilateral screening mammogram showed a architectural distortion in the axillary region of the left breast. Evidence of overlying skin thickening of theleft breast. 05/10/22 Left breast ultrasound showed a 1.87 x 1.7 x 1.9 cm lobulated hypoechoic solid nodule at the 2 o'clock position of the breast, 9 cm from nipple. A similar appearing irregular nodular densityat 1 o'clock position, 7 cm from nipple, measuring 1.3 x 1.2 x 1.6 cm. BIRADS 4: Suspicious 05/23/22 IV Rocephin given and started Augmentin BID due to intense erythema and edema of left breast 05/24/22 FNA for culture No growth 06/06/22 Two-site left breast biopsy - Invasive Ductal Carcinoma - ER+ (>95%), CO+ (10%), HER2+ (3+), Ki-67 50%, 06/06/22 NGS Testing: PDL-1 negative <1%, ERBB2 amplification, TMB low 1.5 mut/MB, MSI negative, 06/17/22 Left breast skin punch biopsy - Angiolymphatic invasion by carcinoma 06/17/22 Port placed 06/18/22 Echo with EF 65% 06/18/22 Left axillary lymph node biopsy - Metastatic carcinoma consistent with breast primary 06/19/22 PET showed enhanced radiopharmaceutical concentration heterogeneously defined in the left breast fulfills quantitative criteria for viable neoplasm. Facilitated FDG uptake noted in the left axilla fulfills quantitative criteria for viable neoplasm. The multifocal increase in radiopharmaceutical concentration noted in the axial skeletal structures fulfills quantitative criteria for viableosseous neoplasia. 06/21/22 Nuclear bone scan showed increase in radiopharmaceutical concentration defined in the leftfrontal skull, the axial and appendicular skeletal structure is commensurate with skeletal metastatic disease which appears to correlate with findings noted on FDG PET CT dated 06/19/2022. Degenerative arthritis is defined in the bilateral knees, the right wrist, hands bilaterally, both should articulations, the right-left ankles, cervical spine. 06/27/22 [facility] ctDNA: 50.01 MTM/mL 06/27/22 Initiated PTCH and Tamoxifen 08/08/22 [facility] BRCA1/2 testing negative 08/22/22 CT C/A/P showed persistent suspicious sclerotic lesions in L3-L4 and within the pelvis consistent with metastasis. A bone scan from 06/21/2022 showed also bone metastasis elsewhere. Chronic interstitial changes in both lung hennessy without a superimposed acute pulmonary process or suspiciousnoncalcified mass or nodule. No suspicious axillary, mediastinal, and perihilar adenopathy. No suspicious solid organ abnormality, stable simple renal cysts, no specific follow-up needed. Overall, nosignificant interval change since 06/27/2022. 08/29/22 Zaida ctDNA: 0.04 MTM/mL 09/24/22 New patient visit with Dr. Mancuso. Recommended to stop tamoxifen. IR referral for bonebiopsy to confirm metastatic disease. Plan to change therapy to PTD for C6. Plan for repeat scans (CT C/A/P and nuclear bone scan) after C6. LMP was in 07/2021. INTERVAL HISTORY, 09/24/2022: Chief Complaint Patient presents with New Patient Lissett Meagan Russell is here today for a new patient evaluation. She is accompanied by her , Pablo. 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 Shereceived her 5th dose of PTCH on , 09/19/22. She has been tolerating therapy pretty well so far. She denies pain or headaches. She reports intermittent neuropathy to fingers and toes, which resolves by the second week. She denies affect to function, gait, or balance. She reports more fatigue. Energy improves with rest. She denies mouth sores. She is eating and drinking adequately. She has not needed nausea medicaiton recently. She vomited a few times since starting chemotherapy. She denies abdominal pain/fullness. She denies diarrhea. She has normal bowel movements daily now, but has atendency towards constipation. She denies fevers, cough, or shortness of breath. She denies chest pain, palpitations, or edema. She denies rashes or other skin changes. Medical/Surgical History: She Past Medical History: Diagnosis Date Breast cancer of upper-outer quadrant of left female breast 06/06/2022 Her Past Surgical History: Procedure Laterality Date BX LYMPH NODE Left 06/18/2022 Left ALNBx -- Metastatic carcinoma SKIN BIOPSY Left 06/17/2022 L Breast Skin Punch Bx--Angiolymphatic Invasion w/carcinoma BREAST BIOPSY Left 06/06/2022 Invasive Ductal Carcinoma, ER >95%, CO 10%, HER 2 IHC: 3+ Ki-67: 50%, PDL-1: <1% INSERTION CVC TUNNELED W/ PORT PUMP Right Right Upper Chest Single Lumen Port Family/Social History: Social History Socioeconomic History Marital status: Spouse name: Pablo Number of children: 2 Years of education: Not on file Highest education level: Associate degree: occupational, technical, or vocational program Occupational History 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 Last PAP: Para: 2 Breast fed each child for approx 4 weeks. Age at of first child: 23 Age of menarche: 13 Age of menopause: currently missing periods. Patient denies hormonal therapy at this time. Took BCP's for appox 15-20 yrs BREAST (GENERAL): Patient admits to self-breast exams and does them monthly. Date of patient's first mammogram: 02/21/2010 Date of most recent mammogram: 05/07/2022 & Breast MRI 06/14/2022 Bra/Cup Size: 42 D BREAST(HISTORICAL BIOPSY/THERAPY/TREATMENT) Patient admits to previous breast biopsy(s). Patient admits to being told they personally have breast cancer or a breast malignancy. Patient admits to chemotherapy, hormone therapy or radiation therapy during the last month. CURRENTLY ON TAMOXIFEN Social Determinants of Health Financial Resource Strain: Not on file Food Insecurity: Not on file Transportation Needs: Not on file Physical Activity: Not on file Stress: Not on file Social Connections: Not on file Intimate Partner Violence: Not on file Housing Stability: Not on file Family History Problem Relation Age of Onset Colon Cancer Maternal Grandfather 61 at age 61 Stroke Paternal Grandmother Medications/Allergies: Her current medication(s) include has a current medication list which includes the following prescription(s): Calcium Carbonate (CALCIUM 600 PO), cholecalciferol 50 MCG (2000 UT) capsule, doxycyclinemonohydrate 100 MG tablet, Lidocaine-prilocaine 2.5-2.5 % cream, Loratadine 10 MG tablet, Multiple V itamins-Minerals (One Daily Multivitamin Women) tablet, Ondansetron 8 MG tablet, Prochlorperazine 5MG tablet, simvastatin 20 MG tablet, Spironolactone 100 MG tablet, and Wheat Dextrin (BENEFIBER PO). Allergies: Patient has no known allergies. Review of Systems: A review of systems was performed with the patient at today's patient and is negative except for those items mentioned in the interval history and those items mentioned below as well as in the nursing documentation review of systems. Fatigue: Fatigue relieved by rest Constipation: Occasional or intermittent symptoms OR occasional use of stool softeners, laxatives, dietary modification, or enema Peripheral Motor Neuropathy: Asymptomatic OR clinical or diagnostic observations only Depression: Mild depressive symptoms Pain: Mild pain Physical Exam: Vitals: BP 131/62 Pulse 95 Temp 98 F (36.7 C) Resp 16 Ht 1.715 m (5' 7.52) Wt 104.6 kg (230 lb 9.6 oz) SpO2 99% BMI 35.56 kg/m Smoking Status Never Patient's Current Performance Status: 1 General/Constitutional: Well developed, well nourished female, who looks their stated age of 52 y.o. No acute distress. HEENT: Head: Normocephalic and atraumatic. Eyes: Pupils are equal, round, and reactive to light. Extraocular movements are intact. Sclerae are anicteric. Oral mucosa looks normal. Cardiac: Regular rate and rhythm. Normal S1, S2. No murmurs, rubs or gallops. Pulmonary/Chest: Lungs are clear to auscultation bilaterally. No wheezes, rhonchi or rales noted. Abdominal: Abdomen with normoactive bowel sounds. Soft, non-tender, non- distended. No organomegaly. Extremities: Normal range of motion in extremities. No peripheral edema. Neurological: Conscious, alert and oriented. Skin: Skin is warm and dry. She is not diaphoretic. Psychiatric: Appropriate mood and affect. Back: No point vertebral tenderness. Lymph: No cervical or supraclavicular adenopathy. Right Breast: Normal without suspicious masses, skin or nipple changes or axillary nodes. Left Breast: Normal without suspicious masses, skin or nipple changes or axillary nodes. Two well healed scars from biopsy entrance site at 1 and 2 o'clock. Chest Wall: No abnormalities noted. Port in place in the right chest wall. Patient offered a medical steam hammer operator for sensitive exam: declined The physical exam was completed by Dr. Mancuso Imaging/Imaging Data: No labs for today's visit. Outside labs reviewed and are without clinically significant abnormalities. PET/CT TUMOR BASE - THIGH, 06/19/2022 Enhanced radiopharmaceutical concentration heterogeneously defined in the left breast fulfills quantitative criteria for viable neoplasm. Facilitated FDG uptake noted in the left axilla fulfills quantitative criteria for viable neoplasm. The multifocal increase in radiopharmaceutical concentration noted in the axial skeletal structures fulfills quantitative criteria for viable osseous neoplasia. BONE SCAN WHOLE BODY, 06/21/2022 Increase in radiopharmaceutical concentration defined in the left frontal skull, the axial and appendicular skeletal structure is commesurate with skeletal metastatic disease which appears to correlate with findings noted on FDG PET CT dated 06/19/2022. Degenerative arthritis is defined in the bilateral knees, the right wrist, hands bilaterally, both should articulations, the right-left ankles, cervical spine. CT CHEST/ABD/PEL W/ CONTRAST, 08/22/2022 IMPRESSION: Persistent suspicious sclerotic lesions in L3-L4 and within the pelvis consistent with metastasis. A bone scan from 06/21/2022 showed also bone metastasis elsewhere. Chronic interstitial changes in both lung hennessy without a superimposed acute pulmonary process or suspicious noncalcified mass or nodule. No suspicious axillary, mediastinal, and perihilar adenopathy. No suspicious solid organ abnormality, stable simple renal cysts, no specific follow-up needed. Overall, no significant interval change since 06/27/2022. 06/18/2022 Echocardiogram: The study was technically difficult. Left ventricular systolic function is normal. The estimated ejection fraction is 65 %. The global longitudinal strain -21 % (normal) . Trivial mitral valve insufficiency. Trivial tricuspid valve insufficiency, trivial eccentric pulmonic valve insufficiency. Unable to estimate RV systolic pressure due to insufficient tricaspid regurgitant envelope, No evidence for diastolic dysfunction. Impression and Recommendations: Lissett Russell is a 52 y.o. female diagnosed on 06/06/22 with ER+, CO+, HER2+, IDC of the left breast and axillary lymph nodes. Imaging showed findings suspicious for osseous metastasis. Breast Cancer: -Today we reviewed her breast cancer pathology, stage, and treatments she has received so far -We reviewed staging scans showing suspicious bone lesions -Referred to IR for bone biopsy to confirm metastatic disease. Repeat CBC prior to biopsy since patient has been receiving chemotherapy -Stop Tamoxifen while on chemotherapy. LMP Jul 2021, so could consider AI in the future. -Change chemotherapy from PTCH to PTD for C6 on 10/15/22 -Repeat CT C/A/P and nuclear bone scan after C6 to assess response to treatment prior to continuingmaintenance Herceptin + Perjeta -Discussed Zometa every 3 months. Dental clearance form will be provided at the next visit. -Consider ABC referral in the future Orders Placed This Encounter CT CHEST WITH CONTRAST CT ABDOMEN/PELVIS WITH CONTRAST NUC BONE SCAN WHOLE BODY AMB REFERRAL TO INTERVENTIONAL RADIOLOGY AMB REFERRAL TO PATHOLOGY PATHOLOGY REPORTS (OUTSIDE) Return in about 3 weeks (around 10/15/2022) for visit with Paige with labs prior to C6 PTD. This was a shared visit with Dr. Jamee Coornado, BAR ROLLER-METAL BUILDING ASSEMBLER ADDENDUM: I saw and evaluated the patient with PIYUSH Marion. I provided a substantive portion of the care for this patient. I personally performed all aspects of the medical decision making for this encounter. I have reviewed and verified this documentation and it accurately reflects our care. Ms. Russell is a very pleasant white female with history of hormone receptor positive, HER2 positiveinvasive ductal carcinoma of the left breast diagnosed in May 2022. She underwent staging evaluation with PET/CT on 06/19/22 which showed presence of multifocal uptake in axial skeleton highly concerning for metastatic disease although a confirmatory biopsy has not been performed. She was initiated on systemic chemotherapy with pertuzumab, trastuzumab, carboplatin and docetaxel (P-TCH regimen) along with tamoxifen. She now presents to our office with her wanting to establish care at [facility]. We spent considerable discussing patient's imaging and biopsy biopsy as well as systemic therapy options. Given that the patient has imaging findings concerning for metastatic process, I feel that we should in the least attempt to obtain a biopsy of one of the metastatic lesions to confirm metastatic breast cancer and exclude a much less likely possibility that the imaging findings represent a different disease process. If biopsy is negative for carcinoma, this could represent treatment effect. We also discussed that metastatic breast cancer is incurable and therefore the goal of systemic therapy is to control metastatic disease burden, palliate cancer related symptoms and help patients live longer. We discussed that we do not mix endocrine therapy with chemotherapy as studies in the pastdid not show much benefit of combining cytotoxic chemotherapy with endocrine therapy and there is atheoretical concern that by inhibiting cell growth, endocrine therapy could make cytotoxic chemotherapy less effective (which kills cancer cells that are actively cycling and dividing). I therefore recommended to stop tamoxifen. Patient's chemotherapy regimen is typically utilized to treat operable breats cancer with curative intend. This regimen has significantly higher toxicity profile than palliative systemic chemotherapyregimens used to treat metastatic HER2 positive breast cancer. I therefore recommended changing herchemotherapy to one that is used for metastatic disease. RECOMMENDATIONS: -Ms. Russell will stop tamoxifen -We have referred her to interventional radiology to attempt a biopsy of metastatic site for confirmation of metastatic breast cancer. Will obtain outside images to be uploaded into our system. -We will also obtain slides from her breast biopsy in 05/2022 for a second opinion at [facility] pathology. -She will return on 10/15 for cycle 6 of chemotherapy. We will discontinue carboplatin and continue docetaxel, pertuzumab and trastuzumab to line up with a regimen for metastatic disease. -Patient will also need to start on bone modifying therapy to prevent skeletal related events. Thiswill be discussed at the time of the next appointment. -We will consider repeating staging scan following 6 cycles of chemotherapy. The remainder as above. Josh Mancuso MD Acquisitions Editor of Internal Medicine Division of Medical Oncology [facility] Instructions* Patient Instructions* Laurel Tomas RN - 09/24/2022 3:40 PM EDT Images from the original note were not included. Store your prescribed pain medication in a locked cabinet or in an area only accessible to you. When you no longer need your prescribed pain medication, dispose of it immediately by one of the safe methods listed below: TAKE BACK PROGRAM: A drug take-back program is the best method to dispose of un- needed opioids safely. You can locate the take-back program closest to you @ https://takebackday.tereso.gov under the COLLECTION SITE PLASTERER JOURNEYMAN tab. Never dispose of un-needed medications down the sink or toilet. Instead, crush the medication and mix with damp coffee grounds or cat litter, place in a sealed plastic freezer bag, and dispose of in your regular trash. Your Medical/Oncology Team Doctor: Josh Mancuso MD Nurse Practitioner: Paige Coronado, METAL BUILDING ASSEMBLER-BAR ROLLER Primary Nurses: PARADISE Barragan, BSN, RN [facility] JUAN MANUEL Us, RN [facility] We are available to take calls Friday-Friday 8:00am-4:30pm. During non-business hours and holidays phone calls will be managed by after-hours [facility] RN's. Please allow at least 10 business days for your team to complete any paperwork. When requesting medication refills, please try to provide as much notice as possible (5 days) in order to ensure that you do not run out of medication. If you need copies of your medical records please call [phone]. If you need to speak to a financial counselor please call [phone]. [facility] this [facility] HCoV 229E RNA ERMIAS+non-probe Ql (Nph)Not Detected *NA* (06/07/22 10:36 AM) Auto Viro/Sero [id number] Evaluation + Plan note Future Scheduled Tests Radiology* MA Mammo Screening Bilateral w/ Johnny 04/17/21 [facility] Evaluation + Plan note Future Appointments Appointment Date:06/26/2022 03:00:00 PM Scheduled Provider:MAIDA KIM Location:[facility] Appointment Type:PC OV Future Scheduled Tests Laboratory* Lipid Profile 07/20/21 * Lipid Profile 05/22/22 * Complete Metabolic Panel 07/20/21 * Complete Metabolic Panel 05/22/22 [facility] Evaluation note* Diagnosis Onset Date Resolution Status Osteoarthritis of knees, bilateral acute Osteoarthritis of knees, bilateral acute [facility] Work Phone: Evaluation note* Diagnosis Onset Date Resolution Status Osteoarthritis of knees, bilateral acute Osteoarthritis of knees, bilateral acute Left knee pain acute Osteoarthritis of knees, bilateral acute Right knee pain acute [facility] Work Phone: Evaluation note* Diagnosis Onset Date Resolution Status Left knee pain acute Osteoarthritis of knees, bilateral acute Right knee pain acute Left knee DJD acute Right knee DJD acute Left knee DJD acute Right knee DJD acute [facility] Work Phone: Evaluation note* Diagnosis Onset Date Resolution Status Left knee DJD acute Right knee DJD acute Left knee DJD acute Right knee DJD acute Abnormal mammogram of left breast acute Mastitis acute Abnormal mammogram of left breast acute Mastitis acute [facility] Work Phone: Evaluation note* Diagnosis Onset Date Resolution Status Left knee DJD acute Right knee DJD acute Abnormal mammogram of left breast acute Mastitis acute Abnormal mammogram of left breast acute Mastitis acute Abnormal mammogram of left breast acute Inflammatory breast cancer a cute Breast cancer acute Breast cancer acute [facility] Work Phone: evaluation note* Diagnosis Onset Date Resolution Status Left knee DJD acute Right knee DJD acute Abnormal mammogram of left breast acute Mastitis acute Abnormal mammogram of left breast acute Mastitis acute Abnormal mammogram of left breast acute Inflammatory breast cancer a cute Breast cancer acute Breast cancer acute Abnormal magnetic resonance imaging of left breast acute Breast cancer acute [facility] Work Phone: Evaluation note* Diagnosis Onset Date Resolution Status Left knee DJD acute Right knee DJD acute Abnormal mammogram of left breast acute Mastitis acute Abnormal mammogram of left breast acute Mastitis acute Abnormal mammogram of left breast acute Inflammatory breast cancer a cute Breast cancer acute Breast cancer acute Abnormal magnetic resonance imaging of left breast acute Breast cancer acute Breast cancer acute Chemotherapy management, encounter for acute Encounter for monoclonal ant ibody treatment for malignancy acute Hypercalcemia acute [facility] Work Phone: Evaluation note* Diagnosis Onset Date Resolution Status Left knee DJD acute Right knee DJD acute Abnormal mammogram of left breast acute Mastitis acute Abnormal mammogram of left breast acute Mastitis acute Abnormal mammogram of left breast acute Inflammatory breast cancer a cute Breast cancer acute Breast cancer acute Abnormal magnetic resonance imaging of left breast acute Breast cancer acute Breast cancer acute Hypercalcemia acute Breast cancer acute Chemotherapy management, encounter for acute Encounter for monoclonal ant ibody treatment for malignancy acute Hypercalcemia acute [facility] Work Phone: Evaluation note* Diagnosis Onset Date Resolution Status Left knee DJD acute Right knee DJD acute Abnormal mammogram of left breast acute Mastitis acute Abnormal mammogram of left breast acute Mastitis acute Abnormal mammogram of left breast acute Inflammatory breast cancer a cute Breast cancer acute Breast cancer acute Abnormal magnetic resonance imaging of left breast acute Breast cancer acute Breast cancer acute Hypercalcemia resolved Breast cancer acute Chemotherapy management, encounter for acute Encounter for monoclonal ant ibody treatment for malignancy acute Hypercalcemia resolved Breast cancer acute Hypercalcemia resolved Breast cancer acute Chemotherapy management, encounter for acute Encounter for monoclonal ant ibody treatment for malignancy acute Breast cancer acute Neck swelling acute [facility] Work Phone: Evaluation note* Diagnosis Onset Date Resolution Status Abnormal mammogram of left breast acute Mastitis acute Abnormal mammogram of left breast acute Mastitis acute Abnormal mammogram of left breast acute Inflammatory breast cancer a cute Breast cancer acute Breast cancer acute Abnormal magnetic resonance imaging of left breast acute Breast cancer acute Breast cancer acute Hypercalcemia resolved Breast cancer acute Chemotherapy management, encounter for acute Encounter for monoclonal ant ibody treatment for malignancy acute Hypercalcemia resolved Breast cancer acute Hypercalcemia resolved Breast cancer acute Chemotherapy management, encounter for acute Encounter for monoclonal ant ibody treatment for malignancy acute Breast cancer acute Neck swelling acute Breast cancer acute Chemotherapy management, encounter for acute Encounter for monoclonal ant ibody treatment for malignancy acute [facility] Work Phone: Evaluation note* Diagnosis Onset Date Resolution Status Abnormal mammogram of left breast acute Mastitis acute Abnormal mammogram of left breast acute Mastitis acute Abnormal mammogram of left breast acute Inflammatory breast cancer a cute Breast cancer acute Breast cancer acute Abnormal magnetic resonance imaging of left breast acute Breast cancer acute Breast cancer acute Hypercalcemia resolved Breast cancer acute Chemotherapy management, encounter for acute Encounter for monoclonal ant ibody treatment for malignancy acute Hypercalcemia resolved Breast cancer acute Hypercalcemia resolved Breast cancer acute Chemotherapy management, encounter for acute Encounter for monoclonal ant ibody treatment for malignancy acute Breast cancer acute Neck swelling acute Breast cancer acute Chemotherapy management, encounter for acute Encounter for monoclonal ant ibody treatment for malignancy acute Adverse reaction to drug that acts primarily on skin acute Breast cancer acute Mucositis acute [facility] Work Phone: Evaluation note* Diagnosis Infiltrating ductal carcinoma of left breast- Primary Bone lesion Disorder of bone and cartilage, unspecified [facility] Onset Date Resolution Status Breast cancer acute Hypercalcemia resolved Breast cancer acute Chemotherapy management, encounter for acute Encounter for monoclonal ant ibody treatment for malignancy acute Breast cancer acute Neck swelling acute Breast cancer acute Chemotherapy management, encounter for acute Encounter for monoclonal ant ibody treatment for malignancy acute Adverse effect of antineopla stic and immunosuppressive drugs, initial encounter acute Adverse reaction to drug that acts primarily on skin acute Breast cancer acute Mucositis acute Breast cancer acute Chemotherapy management, encounter for acute Encounter for monoclonal ant ibody treatment for malignancy acute Breast cancer acute Chemotherapy management, encounter for acute Encounter for monoclonal ant ibody treatment for malignancy acute Breast cancer acute Breast cancer acute Chemotherapy management, encounter for acute Encounter for monoclonal ant ibody treatment for malignancy acute Osteoarthritis of knees, bilateral acute Breast cancer acute Encounter for monoclonal ant ibody treatment for malignancy acute Pedal edema acute Osteoarthritis of knees, bilateral acute [facility] Work Phone: evaluation note* Diagnosis Onset Date Resolution Status Adverse effect of antineopla stic and immunosuppressive drugs, initial encounter acute Adverse reaction to drug that acts primarily on skin acute Breast cancer acute Mucositis acute Breast cancer acute Chemotherapy management, encounter for acute Encounter for monoclonal ant ibody treatment for malignancy acute Breast cancer acute Chemotherapy management, encounter for acute Encounter for monoclonal ant ibody treatment for malignancy acute Breast cancer acute Breast cancer acute Chemotherapy management, encounter for acute Encounter for monoclonal ant ibody treatment for malignancy acute Osteoarthritis of knees, bilateral acute Breast cancer acute Encounter for monoclonal ant ibody treatment for malignancy acute Pedal edema acute Osteoarthritis of knees, bilateral acute Breast cancer acute Encounter for monoclonal ant ibody treatment for malignancy acute [facility] Work Phone: evaluation note* Diagnosis Onset Date Resolution Status Breast cancer acute Chemotherapy management, encounter for acute Encounter for monoclonal ant ibody treatment for malignancy acute Osteoarthritis of knees, bilateral acute Breast cancer acute Encounter for monoclonal ant ibody treatment for malignancy acute Pedal edema acute Osteoarthritis of knees, bilateral acute Breast cancer acute Encounter for monoclonal ant ibody treatment for malignancy acute Breast cancer acute Encounter for monoclonal ant ibody treatment for malignancy acute Breast cancer acute Breast cancer acute Encounter for monitoring cardiotoxic drug therapy acute Pedal edema acute Breast cancer acute Encounter for monitoring cardiotoxic drug therapy acute [facility] Work Phone: evaluation note* Diagnosis Onset Date Resolution Status Breast cancer acute Encounter for monoclonal ant ibody treatment for malignancy acute Breast cancer acute Breast cancer acute Encounter for monitoring cardiotoxic drug therapy acute Pedal edema acute Breast cancer acute Encounter for monitoring cardiotoxic drug therapy acute Breast cancer acute Encounter for monitoring cardiotoxic drug therapy acute Encounter for monoclonal ant ibody treatment for malignancy acute Left knee DJD acute Right knee DJD acute Breast cancer acute Encounter for monitoring cardiotoxic drug therapy acute Encounter for monoclonal ant ibody treatment for malignancy acute [facility] Work Phone: evaluation note* Diagnosis Onset Date Resolution Status Breast cancer acute Encounter for monitoring cardiotoxic drug therapy acute Pedal edema acute Breast cancer acute Encounter for monitoring cardiotoxic drug therapy acute Breast cancer acute Encounter for monitoring cardiotoxic drug therapy acute Encounter for monoclonal ant ibody treatment for malignancy acute Left knee DJD acute Right knee DJD acute Breast cancer acute Encounter for monitoring cardiotoxic drug therapy acute Encounter for monoclonal ant ibody treatment for malignancy acute Breast cancer acute Encounter for monitoring cardiotoxic drug therapy acute Encounter for monoclonal ant ibody treatment for malignancy acute Blood in toilet bowl acute Breast cancer acute Encounter for monitoring cardiotoxic drug therapy acute Encounter for monoclonal ant ibody treatment for malignancy acute [facility] Work Phone: Evaluation note* Diagnosis Postmenopausal bleeding- Primary Care related to current tamoxifen use Prophylactic use of selective estrogen 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 (SERMs) History of left breast cancer documented in this encounter [facility] [employer] [facility]* Diagnosis Postmenopausal bleeding- Primary Care related to current tamoxifen use Prophylactic use of selective estrogen 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 (SERMs) Endometrial polyp Polyp of corpus uteri documented in this encounter [facility] [employer] note* Diagnosis Onset Date Resolution Status Blood in toilet bow acute Breast cancer acute Encounter for monitoring cardiotoxic drug therapy acute Encounter for monoclonal ant ibody treatment for malignancy acute Breast cancer acute Encounter for monitoring cardiotoxic drug therapy acute Encounter for monoclonal ant ibody treatment for malignancy acute Breast cancer acute Encounter for monitoring cardiotoxic drug therapy acute Encounter for monoclonal ant ibody treatment for malignancy acute Breast cancer acute Breast cancer acute Encounter for monitoring cardiotoxic drug therapy acute Encounter for monoclonal ant ibody treatment for malignancy acute Breast cancer acute Encounter for monitoring cardiotoxic drug therapy acute Encounter for monoclonal ant ibody treatment for malignancy acute [facility] Work Phone: Evaluation note* Diagnosis Postmenopausal bleeding- Primary Endometrial polyp Polyp of corpus uteri documented in this encounter [facility] [employer] note* Diagnosis Postmenopausal bleeding Polyp of corpus uteri documented in this encounter [facility] note* Diagnosis Follow-up surgery care- Primary Follow-up examination, following unspecified [facility] No data available for this section [facility] Hospital Discharge instructions No data available for this section [facility] Progress note No data available for this section [facility] Reason for referral (narrative)* Consultation (Routine) - New Request Specialty Diagnoses / Procedures Referred By Contac t Referred To Contact Clinical Pathology/Laboratory Medicine Diagnoses Infiltrating ductal carcinoma [place] [address] [place] [address] [address], [address] [place] [address] Referral ID Status Reason Start Date Expiration Date V isits Requested Visits Authorized [id number] New Request 09/24/2022 10/19/2023 1 1 * Consultation (Urgent) - New Request Specialty Diagnoses / Procedures Referred By Contact Referred To Contact Interventional Radiology Diagnoses Infiltrating ductal carcinoma of left breast Bone lesion Paige Coronado APRN-CNP [address] [facility] [address] [place] [address] Referral ID Status Reason Start Date Expiration Date V isits Requested Visits Authorized [id number] New Request 09/24/2022 10/19/2023 1 1 * Radiology (Routine) - New Request Specialty Diagnoses / Procedures Referred By Contac t Referred To Contact Diagnoses Infiltrating ductal carcinoma of left breast Bone lesion Procedures NUC BONE SCAN WHOLE BODY Paige Coronado APRN-CNP [address] [place] [address] [address] [place] [address] Referral ID Status Reason Start Date Expiration Date V isits Requested Visits Authorized [id number] New Request 09/24/2022 10/19/2023 2 2 * MRI/CAT Scan (Routine) - New Request Specialty Diagnoses / Procedures Referred By Contac t Referred To Contact Diagnoses Infiltrating ductal carcinoma of left breast Bone lesion Procedures CT ABDOMEN/PELVIS WITH CONTRAST CHG CT SCAN,ABDOMENT AND PELVIS,W CONTRAST Paige Coronado APRN-BAR ROLLER [address] [place] [address] [address] [place] [address] Referral ID Status Reason Start Date Expiration Date V isits Requested Visits Authorized [id number] New Request 09/24/2022 10/19/2023 1 1 * MRI/CAT Scan (Routine) - New Request Specialty Diagnoses / Procedures Referred By Dianna ann Referred To Contact Diagnoses Infiltrating ductal carcinoma of left breast Bone lesion Procedures CT CHEST WITH CONTRAST CHG DIAGNOSTIC COMPUTED TOMOGRAPHY THORAX W/CONTRAST Paige Coronado APRN-SYLVESTER [address] [facility] [address] [place] [address] Referral ID Status Reason Start Date Expiration Date V isits Requested Visits Authorized [id number] New Request 09/24/2022 10/19/2023 1 1 [facility]No reason for referral [facility] Work [facility]: Summary Purpose Family History No Family History Records Found Relationship Condition Age at Onset Recorded Date/T jatinder brother Asthma Unknown sister Asthma Unknown grandfather Malignant neoplasm of colon Unknown mother Diabetes mellitus Unknown grandmother Cerebrovascular accident (CVA) Unknown Advance Directives No Advanced Directives Records Found Advance Directive Response Recorded Date/ Time Living Will No December 05, 2014 11:37am Power of Electric Operator No December 05 5 11:37am Advance Directive Response Recorded Date/ Time Living Will No December 05, 2014 10:37am Power of Electric Operator No December 05 5 10:37am Advance Directive Response Recorded Date/ Time Living Will No May 23 022 2:25am Power of Electric Operator No May 23, 2022 2:25am Advance Directive Response Recorded Date/ Time Living Will No June 14 3 8:49am Power of Electric Operator No June 14 023 8:49am Advance Directive Response Recorded Date/ Time Advance Directives on File No 2022 9:29am Advance Directives No June 27, 2022 9:29am Living Will No June 27 9:29am Power of Electric Operator No June 27, 2022 9:29am Advance Directive Response Recorded Date/ Time Advance Directives on File No 2022 3:02pm Advance Directives No June 28, 2022 3:02pm Living Will No June 28 3:02pm Power of Electric Operator No June 28, 2022 3:02pm Advance Directive Response Recorded Date/ Time Advance Directives on File Yes 2022 3:27pm Advance Directives No July 3:27pm Living Will Yes July 19 023 3:27pm Power of Electric Operator Yes July 19, 2022 3:27pm Advance Directive Response Recorded Date/ Time Advance Directives on File Yes August 09, 2022 2:22pm Advance Directives No August 09 2:22pm Living Will Yes August 09, 2022 2:22pm Power of Electric Operator Yes August 09 2:22pm Advance Directive Response Recorded Date/ Time Advance Directives on File Yes August 09, 2022 3:22pm Advance Directives No August 09 3:22pm Living Will Yes August 09, 2022 3:22pm Power of Electric Operator Yes August 09 3:22pm Advance Directive Response Recorded Date/ Time Advance Directives on File Yes October 082022 2:45pm Advance Directives No October 31 2:45pm Living Will Yes October 31, 2022 2 :45pm Power of Electric Operator Yes October 31, 2022 2:45pm Advance Directive Response Recorded Date/ Time Advance Directives on File Yes Augus 2022 2:28pm Advance Directives No January 23, 2023 2:28pm Living Will No January 23 2:28pm Power of Electric Operator No January 23, 2 023 2:28pm Advance Directive Response Recorded Date/ Time Advance Directives on File Yes 2022 2:46pm Advance Directives No March 13, 2023 2:46pm Living Will No March 13 2:46pm Power of Electric Operator No March 13, 2 023 2:46pm Advance Directive Response Recorded Date/ Time Advance Directives on File Yes Novem 2022 2:09pm Advance Directives No April 2:09pm Living Will No April 24, 2 023 2:09pm Power of Electric Operator No April 24, 2023 2:09pm Advance Directive Response Recorded Date/ Time Advance Directives on File Yes Ramone [email or web address] 3:09pm Advance Directives No July 3:09pm Living Will No July 31, 2 024 3:09pm Power of Electric Operator No July 31, 2023 3:09pm Latest Code Status on File Code Status Date Activated Date Inactivated Comments Full Code 10/10/2023 8:26 AM 10/10/2023 2:14 PM Latest Code Status on File Code Status Date Activated Date Inactivated Comments Full Code 10/10/2023 8:26 AM 10/10/2023 2:14 PM Advance Directive Response Recorded Date/ Time Living Will No January 15, 2024 12:48pm Power of Electric Operator No January 14 12:48pm Advance Directives on File Yes August 12, 2024 12:53pm Living Will No August 12, 2024 12:53pm Power of Electric Operator No August 12 12:53pm Advance Directives No August 12 12:53pm Advance Directive Response Recorded Date/ Time Living Will No January 15, 2024 12:48pm Do you have a Healthcare Power of Electric Operator? No January 15, 2024 12:48pm Advance Directives on File Yes August 12, 2024 12:53pm Living Will No August 12, 2024 12:53pm Do you have a Healthcare Power of Electric Operator? No August 12, 2024 12:53pm Advance Directives No August 12 12:53pm Advance Directive Response Recorded Date/ Time Living Will No January 15, 2024 12:48pm Do you have a Healthcare Power of Electric Operator? No January 15, 2024 12:48pm Advance Directives on File Yes September 02, 2024 12:37pm Living Will No September 02, 2024 12:37pm Do you have a Healthcare Power of Electric Operator? No September 02, 2024 12:37pm Advance Directives No September 02, 2 025 12:37pm Advance Directive Response Recorded Date/ Time Advance Directives on File Yes October 142024 11:24am Living Will No October 14, 2024 11 :24am Do you have a Healthcare Power of Electric Operator? No October 14, 2024 11:24am Advance Directives No October 14, 2024 11:24am Advance Directive Response Recorded Date/ Time Advance Directives on File Yes October 082024 12:35pm Living Will No November 04, 2024 1 2:35pm Do you have a Healthcare Power of Electric Operator? No November 04, 2024 12:35pm Advance Directives No November 04 12:35pm Chief Complaint and Reason for Visit Chief Complaint Bilat knees RIGHT KNEE OBESITY Reason for Visit Osteoarthritis of kn ees, bilateral Osteoarthritis of knees, bilateral Chief Complaint Bilat knees RIGHT KNEE OBESITY BILAT KNEES XRAY RIGHT /LEFT KNEE PAIN Reason for Visit Osteoarthritis of kn ees, bilateral Osteoarthritis of knees, bilateral Left knee pain Osteoarthritis of knees, bilateral Right knee pain Chief Complaint OBESITY BILAT KNEES XRAY RIGHT /LEFT KNEE PAIN Bilat knees RIGHT KNEE Reason for Visit Left knee pain Osteoarthritis of knees, bilateral Right knee pain Left knee DJD Right knee DJD Left knee DJD Right knee DJD Chief Complaint BILAT KNEES XRAY RIGHT /LEFT KNEE PAIN Bilat knees RIGHT KNEE SCREENING Reason for Visit Left knee pain Osteoarthritis of knees, bilateral Right knee pain Left knee DJD Right knee DJD Left knee DJD Right knee DJD Chief Complaint BILAT KNEES XRAY RIGHT /LEFT KNEE PAIN Bilat knees RIGHT KNEE SCREENING ABNORMAL MAMMO Reason for Visit Left knee pain Osteoarthritis of knees, bilateral Right knee pain Left knee DJD Right knee DJD Left knee DJD Right knee DJD Chief Complaint RIGHT /LEFT KNEE MARVIN N Bilat knees RIGHT KNEE SCREENING ABNORMAL MAMMO CHEST PAIN BIRADS 4 LEFT ROCEPHIN BREAST RECHECK Reason for Visit Left knee DJD Right knee DJD Left knee DJD Right knee DJD Abnormal mammogram of left breast Mastitis Abnormal mammogram of left breast Mastitis Chief Complaint RIGHT KNEE SCREENING ABNORMAL MAMMO CHEST PAIN BIRADS 4 LEFT ROCEPHIN BREAST RECHECK L BREAST US BIOPSY L BREAST BIOPSY 06/06 NEW PT - BREAST CANCER lab PUNCH BIOPSY BIOPSY NEW BREAST CANCER Reason for Visit Left knee DJD Right knee DJD Abnormal mammogram of left breast Mastitis Abnormal mammogram of left breast Mastitis Abnormal mammogram of left breast Inflammatory breast cancer Breast cancer Breast cancer Chief Complaint RIGHT KNEE SCREENING ABNORMAL MAMMO CHEST PAIN BIRADS 4 LEFT ROCEPHIN BREAST RECHECK L BREAST US BIOPSY L BREAST BIOPSY 06/06 NEW PT - BREAST CANCER lab PUNCH BIOPSY BIOPSY NEW BREAST CANCER NEW BREAST CANCER - INITIAL STAGING *IV ONLY* NEW BREAST CANCER - INITIAL STAGING *IV ONLY* Reason for Visit Left knee DJD Right knee DJD Abnormal mammogram of left breast Mastitis Abnormal mammogram of left breast Mastitis Abnormal mammogram of left breast Inflammatory breast cancer Breast cancer Breast cancer Chief Complaint RIGHT KNEE SCREENING ABNORMAL MAMMO CHEST PAIN BIRADS 4 LEFT ROCEPHIN BREAST RECHECK L BREAST US BIOPSY L BREAST BIOPSY 06/06 NEW PT - BREAST CANCER PUNCH BIOPSY BIOPSY NEW BREAST CANCER NEW BREAST CANCER - INITIAL STAGING *IV ONLY* NEW BREAST CANCER - INITIAL STAGING *IV ONLY* NEW BREAST CANCER - INITIAL STAGING *IV ONLY* left lymph node biopsy NEW BREAST CANCER BREAST Reason for Visit Left knee DJD Right knee DJD Abnormal mammogram of left breast Mastitis Abnormal mammogram of left breast Mastitis Abnormal mammogram of left breast Inflammatory breast cancer Breast cancer Breast cancer Abnormal magnetic resonance imaging of left breast Breast cancer Chief Complaint RIGHT KNEE SCREENING ABNORMAL MAMMO CHEST PAIN BIRADS 4 LEFT ROCEPHIN BREAST RECHECK L BREAST US BIOPSY L BREAST BIOPSY 06/06 NEW PT - BREAST CANCER PUNCH BIOPSY BIOPSY NEW BREAST CANCER NEW BREAST CANCER - INITIAL STAGING *IV ONLY* NEW BREAST CANCER - INITIAL STAGING *IV ONLY* NEW BREAST CANCER - INITIAL STAGING *IV ONLY* left lymph node biopsy NEW BREAST CANCER NEW BREAST CANCER CHEMO ED - [facility] BREAST 2WK REVIEW PET/CT/MRI/BONE SCAN/ECHO NEW START Reason for Visit Left knee DJD Right knee DJD Abnormal mammogram of left breast Mastitis Abnormal mammogram of left breast Mastitis Abnormal mammogram of left breast Inflammatory breast cancer Breast cancer Breast cancer Abnormal magnetic resonance imaging of left breast Breast cancer Breast cancer Chemotherapy management, encounter for Encounter for monoclonal antibody treatment for malignancy Hypercalcemia Chief Complaint RIGHT KNEE SCREENING ABNORMAL MAMMO CHEST PAIN BIRADS 4 LEFT ROCEPHIN BREAST RECHECK L BREAST US BIOPSY L BREAST BIOPSY 06/06 NEW PT - BREAST CANCER PUNCH BIOPSY BIOPSY NEW BREAST CANCER NEW BREAST CANCER - INITIAL STAGING *IV ONLY* NEW BREAST CANCER - INITIAL STAGING *IV ONLY* NEW BREAST CANCER - INITIAL STAGING *IV ONLY* left lymph node biopsy NEW BREAST CANCER NEW BREAST CANCER CHEMO ED - [facility] 2WK REVIEW PET/CT/MRI/BONE SCAN/ECHO NEW START BREAST BREAST CANCER STAGING, LT SKULL LESION Reason for Visit Left knee DJD Right knee DJD Abnormal mammogram of left breast Mastitis Abnormal mammogram of left breast Mastitis Abnormal mammogram of left breast Inflammatory breast cancer Breast cancer Breast cancer Abnormal magnetic resonance imaging of left breast Breast cancer Breast cancer Hypercalcemia Breast cancer Chemotherapy management, encounter for Encounter for monoclonal antibody treatment for malignancy Hypercalcemia Chief Complaint RIGHT KNEE SCREENING ABNORMAL MAMMO CHEST PAIN BIRADS 4 LEFT ROCEPHIN BREAST RECHECK L BREAST US BIOPSY L BREAST BIOPSY 06/06 NEW PT - BREAST CANCER PUNCH BIOPSY BIOPSY NEW BREAST CANCER NEW BREAST CANCER - INITIAL STAGING *IV ONLY* NEW BREAST CANCER - INITIAL STAGING *IV ONLY* NEW BREAST CANCER - INITIAL STAGING *IV ONLY* left lymph node biopsy NEW BREAST CANCER NEW BREAST CANCER CHEMO ED - [facility] 2WK REVIEW PET/CT/MRI/BONE SCAN/ECHO NEW START BREAST CANCER STAGING, LT SKULL LESION 2WKS LABS TOX CHECK REVIEW MRI 1WK LABS TREATMENT 2WKS LABS TOX CHECK BREAST NECK SWELLING Reason for Visit Left knee DJD Right knee DJD Abnormal mammogram of left breast Mastitis Abnormal mammogram of left breast Mastitis Abnormal mammogram of left breast Inflammatory breast cancer Breast cancer Breast cancer Abnormal magnetic resonance imaging of left breast Breast cancer Breast cancer Hypercalcemia Breast cancer Chemotherapy management, encounter for Encounter for monoclonal antibody treatment for malignancy Hypercalcemia Breast cancer Hypercalcemia Breast cancer Chemotherapy management, encounter for Encounter for monoclonal antibody treatment for malignancy Breast cancer Neck swelling Chief Complaint SCREENING ABNORMAL MAMMO CHEST PAIN BIRADS 4 LEFT ROCEPHIN BREAST RECHECK L BREAST US BIOPSY L BREAST BIOPSY 06/06 NEW PT - BREAST CANCER PUNCH BIOPSY BIOPSY NEW BREAST CANCER NEW BREAST CANCER - INITIAL STAGING *IV ONLY* NEW BREAST CANCER - INITIAL STAGING *IV ONLY* NEW BREAST CANCER - INITIAL STAGING *IV ONLY* left lymph node biopsy NEW BREAST CANCER NEW BREAST CANCER CHEMO ED - [facility] 2WK REVIEW PET/CT/MRI/BONE SCAN/ECHO NEW START BREAST CANCER STAGING, LT SKULL LESION 2WKS LABS TOX CHECK REVIEW MRI 1WK LABS TREATMENT 2WKS LABS TOX CHECK NECK SWELLING 3WKS LABS TREATMENT port placement BREAST Reason for Visit Abnormal mammogram o f left breast Mastitis Abnormal mammogram of left breast Mastitis Abnormal mammogram of left breast Inflammatory breast cancer Breast cancer Breast cancer Abnormal magnetic resonance imaging of left breast Breast cancer Breast cancer Hypercalcemia Breast cancer Chemotherapy management, encounter for Encounter for monoclonal antibody treatment for malignancy Hypercalcemia Breast cancer Hypercalcemia Breast cancer Chemotherapy management, encounter for Encounter for monoclonal antibody treatment for malignancy Breast cancer Neck swelling Breast cancer Chemotherapy management, encounter for Encounter for monoclonal antibody treatment for malignancy Chief Complaint SCREENING ABNORMAL MAMMO CHEST PAIN BIRADS 4 LEFT ROCEPHIN BREAST RECHECK L BREAST US BIOPSY L BREAST BIOPSY 06/06 NEW PT - BREAST CANCER PUNCH BIOPSY BIOPSY NEW BREAST CANCER NEW BREAST CANCER - INITIAL STAGING *IV ONLY* NEW BREAST CANCER - INITIAL STAGING *IV ONLY* NEW BREAST CANCER - INITIAL STAGING *IV ONLY* left lymph node biopsy NEW BREAST CANCER NEW BREAST CANCER CHEMO ED - [facility] 2WK REVIEW PET/CT/MRI/BONE SCAN/ECHO NEW START BREAST CANCER STAGING, LT SKULL LESION 2WKS LABS TOX CHECK REVIEW MRI 1WK LABS TREATMENT 2[facility] TOX CHECK NECK SWELLING 3[facility] TREATMENT port placement BREAST 2WKS LABS TOX CHECK BREAST CANCER Reason for Visit Abnormal mammogram o f left breast Mastitis Abnormal mammogram of left breast Mastitis Abnormal mammogram of left breast Inflammatory breast cancer Breast cancer Breast cancer Abnormal magnetic resonance imaging of left breast Breast cancer Breast cancer Hypercalcemia Breast cancer Chemotherapy management, encounter for Encounter for monoclonal antibody treatment for malignancy Hypercalcemia Breast cancer Hypercalcemia Breast cancer Chemotherapy management, encounter for Encounter for monoclonal antibody treatment for malignancy Breast cancer Neck swelling Breast cancer Chemotherapy management, encounter for Encounter for monoclonal antibody treatment for malignancy Adverse reaction to drug that acts primarily on skin Breast cancer Mucositis Chief Complaint BREAST CANCER STAGIN G, LT SKULL LESION 2WKS [facility]S TOX CHECK REVIEW MRI 1WK LABS TREATMENT 2WKS LABS TOX CHECK NECK SWELLING 3[facility] TREATMENT port placement 2WKS LABS TOX CHECK BREAST CANCER 3[facility]KS [facility] TREATMENT 3[facility] QUESTIONS AFTER [facility] 2ND OPINION 3[facility] LEG SWELLING BI LAT KNEES 3WKS [facility]S HERCEPTIN Fulphila LEG SWELLING BL KNEES Reason for Visit Breast cancer Hypercalcemia Breast cancer Chemotherapy management, encounter for Encounter for monoclonal antibody treatment for malignancy Breast cancer Neck swelling Breast cancer Chemotherapy management, encounter for Encounter for monoclonal antibody treatment for malignancy Adverse effect of antineoplastic and immunosuppressive drugs, initial encounter Adverse reaction to drug that acts primarily on skin Breast cancer Mucositis Breast cancer Chemotherapy management, encounter for Encounter for monoclonal antibody treatment for malignancy Breast cancer Chemotherapy management, encounter for Encounter for monoclonal antibody treatment for malignancy Breast cancer Breast cancer Chemotherapy management, encounter for Encounter for monoclonal antibody treatment for malignancy Osteoarthritis of knees, bilateral Breast cancer Encounter for monoclonal antibody treatment for malignancy Pedal edema Osteoarthritis of knees, bilateral Chief Complaint 2[facility]KS [facility]S TOX CHECK BREAST CANCER 3[facility]KS [facility] TREATMENT 3[facility] QUESTIONS AFTER [facility] 2ND OPINION 3[facility] LEG SWELLING BI LAT KNEES 3WKS [facility]S HERCEPTIN LEG SWELLING BL KNEES 3WKS LABS HER/PER Fulphila BREAST CANCER Reason for Visit Adverse effect of an tineoplastic and immunosuppressive drugs, initial encounter Adverse reaction to drug that acts primarily on skin Breast cancer Mucositis Breast cancer Chemotherapy management, encounter for Encounter for monoclonal antibody treatment for malignancy Breast cancer Chemotherapy management, encounter for Encounter for monoclonal antibody treatment for malignancy Breast cancer Breast cancer Chemotherapy management, encounter for Encounter for monoclonal antibody treatment for malignancy Osteoarthritis of knees, bilateral Breast cancer Encounter for monoclonal antibody treatment for malignancy Pedal edema Osteoarthritis of knees, bilateral Breast cancer Encounter for monoclonal antibody treatment for malignancy Chief Complaint 3[facility] LEG SWELLING BI LAT KNEES 3[facility]S HERCEPTIN LEG SWELLING BL KNEES 3[facility]KS [facility]S HER/PER BREAST CANCER 3[facility]KS [facility]S HER/PER REVIEW PET NO LABS 3[facility]KS [facility]S HER/PER 3[facility]KS [facility]S HER/PER MALIGNANT NEOPLASM OF LEFT FEMALE BREAST Z51.81 - Encounter for therapeutic drug level beena Reason for Visit Breast cancer Chemotherapy management, encounter for Encounter for monoclonal antibody treatment for malignancy Osteoarthritis of knees, bilateral Breast cancer Encounter for monoclonal antibody treatment for malignancy Pedal edema Osteoarthritis of knees, bilateral Breast cancer Encounter for monoclonal antibody treatment for malignancy Breast cancer Encounter for monoclonal antibody treatment for malignancy Breast cancer Breast cancer Encounter for monitoring cardiotoxic drug therapy Pedal edema Breast cancer Encounter for monitoring cardiotoxic drug therapy Chief Complaint BREAST CANCER 3[facility] HER/PER REVIEW PET NO LABS 3[facility]KS [facility]S HER/PER 3WKS LABS HER/PER Z51.81 - Encounter for therapeutic drug level beena 3[facility] HER/PER BL KNEES 3[facility]KS [facility]S HER/PER MALIGNANT NEOPLASM OF LEFT FEMALE BREAST C50.919 Reason for Visit Breast cancer Encounter for monoclonal antibody treatment for malignancy Breast cancer Breast cancer Encounter for monitoring cardiotoxic drug therapy Pedal edema Breast cancer Encounter for monitoring cardiotoxic drug therapy Breast cancer Encounter for monitoring cardiotoxic drug therapy Encounter for monoclonal antibody treatment for malignancy Left knee DJD Right knee DJD Breast cancer Encounter for monitoring cardiotoxic drug therapy Encounter for monoclonal antibody treatment for malignancy Chief Complaint 3[facility] HER/PER 3WKS LABS HER/PER Z51.81 - Encounter for therapeutic drug level beena 3[facility]KS [facility]S HER/PER BL KNEES 3[facility]S HER/PER C50.919 3WKS NO LABS HERCEPTIN Amb Documentation MALIGNANT NEOPLASM OF LEFT FEMALE BREAST HIGH RISK MEDS Reason for Visit Breast cancer Encounter for monitoring cardiotoxic drug therapy Pedal edema Breast cancer Encounter for monitoring cardiotoxic drug therapy Breast cancer Encounter for monitoring cardiotoxic drug therapy Encounter for monoclonal antibody treatment for malignancy Left knee DJD Right knee DJD Breast cancer Encounter for monitoring cardiotoxic drug therapy Encounter for monoclonal antibody treatment for malignancy Breast cancer Encounter for monitoring cardiotoxic drug therapy Encounter for monoclonal antibody treatment for malignancy Blood in toilet bowl Breast cancer Encounter for monitoring cardiotoxic drug therapy Encounter for monoclonal antibody treatment for malignancy Chief Complaint Amb Documentation 3[facility] HER/PER HIGH RISK MEDS 3[facility] HER /PER 3[facility]KS [facility] HER/PER NEW PATIENT FOR CARDIAC / ONC 3[facility]S 3[facility] TX PORT ACCESS FOR CT SCAN-PLEASE USE POWER GRIPPER Nonrheumatic mitral (valve) insufficiency Reason for Visit Blood in toilet bowl Breast cancer Encounter for monitoring cardiotoxic drug therapy Encounter for monoclonal antibody treatment for malignancy Breast cancer Encounter for monitoring cardiotoxic drug therapy Encounter for monoclonal antibody treatment for malignancy Breast cancer Encounter for monitoring cardiotoxic drug therapy Encounter for monoclonal antibody treatment for malignancy Breast cancer Breast cancer Encounter for monitoring cardiotoxic drug therapy Encounter for monoclonal antibody treatment for malignancy Breast cancer Encounter for monitoring cardiotoxic drug therapy Encounter for monoclonal antibody treatment for malignancy Chief Complaint Admit Date [facility] [place] April 29, 2024 10:46am CHEMO DRUG THERAPY May 19, 2024 12:52pm [facility] [place] May 20, 2024 10:17am [facility] [place] June 10, 2024 10 :47am ACUTE-R BREAST REDNESS June 15, 2024 8:57am RC TRANSFER, SKIN BIOPSY June 16 12:59pm SKIN BIOPSY L BREAST June 16, 2024 2 :09pm SUTURE REMOVAL June 23, 2024 1 :18pm [facility] TX REVIEW PET July 01 10:12am AXILA BREAST CA ABN PET SCAN June 11:54am 3[facility] NO [facility]S TX July 22, 2024 11:26am RIGHT AXILLA ABN PET SCAN July 22, 2024 11:42am PORT ACCESS FOR PET August 12, 2024 9:15 am [facility] [place] August 12, 2024 9:17 am LT KNEE Varus deformity August 12, 2024 1:56pm Reason for Visit Admit Date Anemia April 29, 2024 10:46am Breast cancer April 29, 2024 10:46am Encounter for monoclonal ant ibody treatment for malignancy April 29, 2024 10:46am Breast cancer May 20, 2024 10:17am Encounter for monoclonal ant ibody treatment for malignancy May 20, 2024 10:17am Breast cancer June 10, 2024 10 :47am Encounter for monoclonal ant ibody treatment for malignancy June 10, 2024 10:47am Erythematous rash June 15, 2024 8: 57am Breast cancer June 16, 2024 12 :59pm Erythematous rash June 16, 2024 12 :59pm Breast cancer July 01, 2024 1 0:12am Encounter for monoclonal ant ibody treatment for malignancy July 01, 2024 10:12am Neoplasm of axillary lymph nodes July 01, 2024 10:12am Abnormal positron emission tomography (P ET) scan July 22, 2024 11:26am Breast cancer July 22, 2024 11:26am Encounter for monoclonal ant ibody treatment for malignancy July 22, 2024 11:26am Abnormal positron emission tomography (P ET) scan August 12, 2024 9:17am Breast cancer August 12, 2024 9:17 am Encounter for monoclonal ant ibody treatment for malignancy August 12, 2024 9:17am Chief Complaint Admit Date CHEMO DRUG THERAPY May 19, 2024 12:52pm [facility] [place] May 20, 2024 10:17am [facility] [place] June 10, 2024 10 :47am ACUTE-R BREAST REDNESS June 15, 2024 8:57am RC TRANSFER, SKIN BIOPSY June 16 12:59pm SKIN BIOPSY L BREAST June 16, 2024 2 :09pm SUTURE REMOVAL June 23, 2024 1 :18pm [facility] [place] REVIEW PET July 01 10:12am AXILA BREAST CA ABN PET SCAN June 11:54am 3[facility] NO LABS TX July 22, 2024 11:26am RIGHT AXILLA ABN PET SCAN July 22, 2024 11:42am [facility] [place] August 12, 2024 9:17 am LT KNEE Varus deformity August 12, 2024 1:56pm Encounter for therapeutic drug level mon itoring August 31, 2024 11:02am [facility] NO [facility]S TX September 02, 2024 11: 33am PORT ACCESS FOR PET September 02, 2024 12: 00pm Reason for Visit Admit Date Breast cancer May 20, 2024 10:17am Encounter for monoclonal ant ibody treatment for malignancy May 20, 2024 10:17am Breast cancer June 10, 2024 10 :47am Encounter for monoclonal ant ibody treatment for malignancy June 10, 2024 10:47am Erythematous rash June 15, 2024 8: 57am Breast cancer June 16, 2024 12 :59pm Erythematous rash June 16, 2024 12 :59pm Breast cancer July 01, 2024 1 0:12am Encounter for monoclonal ant ibody treatment for malignancy July 01, 2024 10:12am Neoplasm of axillary lymph nodes July 01, 2024 10:12am Abnormal positron emission tomography (P ET) scan July 22, 2024 11:26am Breast cancer July 22, 2024 11:26am Encounter for monoclonal ant ibody treatment for malignancy July 22, 2024 11:26am Abnormal positron emission tomography (P ET) scan August 12, 2024 9:17am Breast cancer August 12, 2024 9:17 am Encounter for monoclonal ant ibody treatment for malignancy August 12, 2024 9:17am Breast cancer September 02, 2024 11: 33am Encounter for monoclonal ant ibody treatment for malignancy September 02, 2024 11:33am Chief Complaint Admit Date [facility] [place] June 10, 2024 10 :47am ACUTE-R BREAST REDNESS June 15, 2024 8:57am RC TRANSFER, SKIN BIOPSY June 16 12:59pm SKIN BIOPSY L BREAST June 16, 2024 2 :09pm SUTURE REMOVAL June 23, 2024 1 :18pm [facility] TX REVIEW PET July 01 10:12am AXILA BREAST CA ABN PET SCAN June 11:54am [facility] NO [facility]S TX July 22, 2024 11:26am RIGHT AXILLA ABN PET SCAN July 22, 2024 11:42am [facility] [place] August 12, 2024 9:17 am LT KNEE Varus deformity August 12, 2024 1:56pm Encounter for therapeutic drug level mon itoring August 31, 2024 11:02am [facility] NO [facility]S TX September 02, 2024 11: 33am PORT ACCESS FOR PET September 02, 2024 12: 00pm LLE M25.562 Pain in left knee (STAT) Sep 2:47pm Reason for Visit Admit Date Breast cancer June 10, 2024 10 :47am Encounter for monoclonal ant ibody treatment for malignancy June 10, 2024 10:47am Erythematous rash June 15, 2024 8: 57am Breast cancer June 16, 2024 12 :59pm Erythematous rash June 16, 2024 12 :59pm Breast cancer July 01, 2024 1 0:12am Encounter for monoclonal ant ibody treatment for malignancy July 01, 2024 10:12am Neoplasm of axillary lymph nodes July 01, 2024 10:12am Abnormal positron emission tomography (P ET) scan July 22, 2024 11:26am Breast cancer July 22, 2024 11:26am Encounter for monoclonal ant ibody treatment for malignancy July 22, 2024 11:26am Abnormal positron emission tomography (P ET) scan August 12, 2024 9:17am Breast cancer August 12, 2024 9:17 am Encounter for monoclonal ant ibody treatment for malignancy August 12, 2024 9:17am Breast cancer September 02, 2024 11: 33am Encounter for monoclonal ant ibody treatment for malignancy September 02, 2024 11:33am Chief Complaint Admit Date [facility] [place] REVIEW PET July 01 10:12am AXILA BREAST CA ABN PET SCAN June 11:54am 3[facility] NO [facility]S TX July 22, 2024 11:26am RIGHT AXILLA ABN PET SCAN July 22, 2024 11:42am [facility] [place] August 12, 2024 9:17 am LT KNEE Varus deformity August 12, 2024 1:56pm Encounter for therapeutic drug level mon itoring August 31, 2024 11:02am [facility] NO [facility]S TX September 02, 2024 11: 33am LLE M25.562 Pain in left knee (STAT) Apr 2024 2:47pm [facility] [place] September 23, 2024 10: 30am 3[facility] NO [facility]S TX October 14, 2024 9:56am PORT ACCESS FOR PET October 14, 2024 10:30a m CONCERN FOR UTI October 26, 2024 11:04 am Reason for Visit Admit Date Breast cancer July 01, 2024 1 0:12am Encounter for monoclonal ant ibody treatment for malignancy July 01, 2024 10:12am Neoplasm of axillary lymph nodes July 01, 2024 10:12am Abnormal positron emission tomography (P ET) scan July 22, 2024 11:26am Breast cancer July 22, 2024 11:26am Encounter for monoclonal ant ibody treatment for malignancy July 22, 2024 11:26am Abnormal positron emission tomography (P ET) scan August 12, 2024 9:17am Breast cancer August 12, 2024 9:17 am Encounter for monoclonal ant ibody treatment for malignancy August 12, 2024 9:17am Breast cancer September 02, 2024 11: 33am Encounter for monoclonal ant ibody treatment for malignancy September 02, 2024 11:33am Breast cancer September 23, 2024 10: 30am Encounter for monoclonal ant ibody treatment for malignancy September 23, 2024 10:30am Breast cancer October 14, 2024 9:56am Encounter for monoclonal ant ibody treatment for malignancy October 14, 2024 9:56am Chief Complaint Admit Date [facility] NO [facility]S TX July 22, 2024 11:26am RIGHT AXILLA ABN PET SCAN July 22, 2024 11:42am [facility] TX August 12, 2024 9:17 am LT KNEE Varus deformity August 12, 2024 1:56pm Encounter for therapeutic drug level mon itoring August 31, 2024 11:02am 3[facility] NO [facility]S TX September 02, 2024 11: 33am LLE M25.562 Pain in left knee (STAT) Apr 2024 2:47pm LT LEG PAIN September 17, 2024 2:5 7pm [facility] TX September 23, 2024 10: 30am 3[facility] NO LABS TX October 14, 2024 9:56am CONCERN FOR UTI October 26, 2024 11:04 am PORT ACCESS FOR PET November 04, 2024 10:45 am Reason for Visit Admit Date Abnormal positron emission tomography (P ET) scan July 22, 2024 11:26am Breast cancer July 22, 2024 11:26am Encounter for monoclonal ant ibody treatment for malignancy July 22, 2024 11:26am Abnormal positron emission tomography (P ET) scan August 12, 2024 9:17am Breast cancer August 12, 2024 9:17 am Encounter for monoclonal ant ibody treatment for malignancy August 12, 2024 9:17am Breast cancer September 02, 2024 11: 33am Encounter for monoclonal ant ibody treatment for malignancy September 02, 2024 11:33am Breast cancer September 23, 2024 10: 30am Encounter for monoclonal ant ibody treatment for malignancy September 23, 2024 10:30am Breast cancer October 14, 2024 9:56am Encounter for monoclonal ant ibody treatment for malignancy October 14, 2024 9:56am Chief Complaint Admit Date [facility] TX August 12, 2024 9:17 am LT KNEE Varus deformity August 12, 2024 1:56pm Encounter for therapeutic drug level mon itoring August 31, 2024 11:02am 3[facility] NO [facility]S TX September 02, 2024 11: 33am LLE M25.562 Pain in left knee (STAT) Sep 2:47pm LT LEG PAIN September 17, 2024 2:5 7pm [facility] TX September 23, 2024 10: 30am 3[facility] NO LABS TX October 14, 2024 9:56am CONCERN FOR UTI October 26, 2024 11:04 am [facility] TX November 04, 2024 10:45 am PORT ACCESS FOR PET November 25, 2024 10:4 5am 3[facility] LABS(DO NOT WAIT FOR LABS) TX November 25, 2024 10:48am Reason for Visit Admit Date Abnormal positron emission tomography (P ET) scan August 12, 2024 9:17am Breast cancer August 12, 2024 9:17 am Encounter for monoclonal antibody treatm ent for malignancy August 12, 2024 9:17am Breast cancer September 02, 2024 11: 33am Encounter for monoclonal antibody treatm ent for malignancy September 02, 2024 11:33am Breast cancer September 23, 2024 10: 30am Encounter for monoclonal antibody treatm ent for malignancy September 23, 2024 10:30am Breast cancer October 14, 2024 9:56am Encounter for monoclonal antibody treatm ent for malignancy October 14, 2024 9:56am Breast cancer November 04, 2024 10:45 am Encounter for monoclonal antibody treatm ent for malignancy November 04, 2024 10:45am Wheal November 04, 2024 10:45 am Breast cancer November 25, 2024 10:4 8am Encounter for monoclonal antibody treatm ent for malignancy November 25, 2024 10:48am Additional Source Comments INFORMATION SOURCE (unrecogn ized section and content) DATE CREATED AUTHOR 12/02/2017 [facility] DATE CREATED AUTHOR AUTHOR'S ORGANIZ ATION 10/21/2022 [facility] DATE CREATED AUTHOR AUTHOR'S ORGANIZ ATION 05/04/2023 [facility] ([place]) DATE CREATED AUTHOR AUTHOR'S ORGANIZ ATION 10/31/2023 [facility] DATE CREATED AUTHOR AUTHOR'S ORGANIZ ATION [facility] Care Team (unrecognized sect ion and content) Care Team Personnel Name: Maranda Ambrosio Clertahmina Ward PT Position: P3 Scheduling - Eyeglass Assembler Advanced Member Role: Other Name: MAIDA KIM METAL BUILDING ASSEMBLER-BAR ROLLER Position: P4 Advanced Practice Nurse Member Role: Primary Care Physician Address: Address: [address] [place], [place] [address] Care Team Related Persons Name: PABLO RUSSELL Name: MIKHAIL JOHNSON Address: Home [address] [place] [address] [address] [place], [place] [id number] [place] Care Teams (unrecognized sec tion and content) Team Status: Active Member Role Status Dates Maida Kim OUTREACH LIBRARIAN, OUTREACH LIBRARIAN-C Family Provider Active Maida Kim OUTREACH LIBRARIAN, OUTREACH LIBRARIAN-C Primary Care Provider Active Team Status: Inactive Member Role Status Dates Maida Kim OUTREACH LIBRARIAN, OUTREACH LIBRARIAN-C Primary Care Provider, Referri ng Provider Active Blue BERMUDEZ, [place] Attending Provider Active Team Status: Inactive Member Role Status Dates Maida Kim OUTREACH LIBRARIAN, OUTREACH LIBRARIAN-C Primary Care Provider, Referri ng Provider Active Dr. Josh Wolfe MD Attending Provider Active Team Status: Inactive Member Role Status Dates Maida Kim OUTREACH LIBRARIAN, OUTREACH LIBRARIAN-C Primary Care Provider, Referri ng Provider Active Dr. Cristóbal Ford MD Attending Provider Active Team Status: Active Member Role Status Carey Kim OUTREACH LIBRARIAN, OUTREACH LIBRARIAN-C Primary Care Provider Active Dr. Josh Wolfe MD Attending Provid er, Referring Provider, Other Provider Active Dr. Cristóbal Ford MD Other Provider Active Team Status: Active Member Role Status Carey Kim OUTREACH LIBRARIAN, OUTREACH LIBRARIAN-C Primary Care Provider Active Dr. Jey Mackenzie MD Attending Provider Active Team Status: Inactive Member Role Status Dates Maida Kim OUTREACH LIBRARIAN, OUTREACH LIBRARIAN-C Primary Care Provider, Referri ng Provider Active Genna Armijo OUTREACH LIBRARIAN, OUTREACH LIBRARIAN-C Attending Provider Active Team Status: Inactive Member Role Status Dates Maida Kim OUTREACH LIBRARIAN, OUTREACH LIBRARIAN-C Primary Care Provider, Attendi ng Provider Active Team Status: Inactive Member Role Status Carey Kim OUTREACH LIBRARIAN, OUTREACH LIBRARIAN-C Primary Care Pro vider, Attending Provider, Referring Provider Active Team Status: Inactive Member Role Status Carey Kim OUTREACH LIBRARIAN, OUTREACH LIBRARIAN-C Primary Care Provider Active Dr. Joaquín Ng MD Attending Provider, Emergency Provi winter Active Team Status: Inactive Member Role Status Carey Kim OUTREACH LIBRARIAN, OUTREACH LIBRARIAN-C Primary Care Provider Active Dr. Josh Wolfe MD Attending Provider, Referring Provider Active Team Status: Active Member Role Status Carey Kim OUTREACH LIBRARIAN, OUTREACH LIBRARIAN-C Primary Care Provider Active Dr. Cristóbal Ford MD Attending Provider, Referring Pro vider Active Team Status: Inactive Member Role Status Carey Kim OUTREACH LIBRARIAN, OUTREACH LIBRARIAN-C Primary Care Provider Active Dr. Cristóbal Ford MD Attending Provider, Referring Pro vider Active Team Status: Inactive Member Role Status Carey Kim OUTREACH LIBRARIAN, OUTREACH LIBRARIAN-C Primary Care Provider Active Dr. Cristóbal Ford MD Attending Provider Active Team Status: Inactive Member Role Status Carey Kim OUTREACH LIBRARIAN, OUTREACH LIBRARIAN-C Primary Care Provider Active Dr. Josh Wolfe MD Attending Provider, Referring Provider Active Dr. Cristóabl Ford MD Other Provider Active Team Status: Inactive Member Role Status Carey Kim OUTREACH LIBRARIAN, OUTREACH LIBRARIAN-C Primary Care Provider Active Genna Armijo OUTREACH LIBRARIAN, OUTREACH LIBRARIAN-C Attending Provider, Referring Provider Active Team Status: Active Member Role Status Carey Kim OUTREACH LIBRARIAN, OUTREACH LIBRARIAN-C Primary Care Provider Active Dr. Josh Wolfe MD Attending Provider Active Team Status: Inactive Member Role Status Carey Kim OUTREACH LIBRARIAN, OUTREACH LIBRARIAN-C Primary Care Provider, Referri ng Provider Active Dr. Cristóbal Ford MD Active Genna Armijo OUTREACH LIBRARIAN, OUTREACH LIBRARIAN-C Attending Provider Active Team Status: Inactive Member Role Status Dates Maida Kim OUTREACH LIBRARIAN, OUTREACH LIBRARIAN-C Primary Care Provider Active Genna Armijo OUTREACH LIBRARIAN, OUTREACH LIBRARIAN-C Attending Provider Active Team Status: Active Member Role Status Dates Maida Kim NP, OUTREACH LIBRARIAN-C Primary Care Provider Active Dr. Josh Wolfe MD Attending Provider Active Dr. Cristóbal Ford MD Referring Provider Active Road Grader Operator Relationship Specialty Start Date End Date HanstonMaida hernandez S, GARNETT MACHINE OPERATOR [address] [place] [address] PCP - General Family Medicine 09/24/22 Josh Mancuso MD [address], [address] [place] [address] Oncologist Medical Oncology 09/23/22 Paige Coronado, METAL BUILDING ASSEMBLER-BAR ROLLER [address] [place], [place] [id number] Nurse Practitioner Medical Oncology 09/23/22 Cristóbal Ford MB/ERIC [address] [place] [id number] Hematology 09/23/22 Laurel Tomas, [place] Registered Nurse Medical Oncology 09/24/22 Team Status: Active Member Role Status Dates Maida Kim NP, OUTREACH LIBRARIAN-C Primary Care Provider Active Dr. Jesus Varma MD Attending Provider Active Team Status: Active Member Role Status Dates Maida Kim NP, OUTREACH LIBRARIAN-C Primary Care Provider Active Dr. Harjinder Peters MD Attending Provider Active Team Status: Inactive Member Role Status Dates Maida Kim OUTREACH LIBRARIAN, OUTREACH LIBRARIAN-C Primary Care Provider, Referri ng Provider Active Genna Armijo NP, OUTREACH LIBRARIAN-C Active Dr. Cristóbal Ford MD Attending Provider Active Team Status: Active Member Role Status Dates Maida Kim NP, OUTREACH LIBRARIAN-C Primary Care Provider Active Dr. Harjinder Peters MD Attending Provider Active Dr. Cristóbal Ford MD Referring Provider Active Team Status: Active Member Role Status Dates Maida Kim OUTREACH LIBRARIAN, OUTREACH LIBRARIAN-C Primary Care Provider Active Dr. Emelia Carrington MD Attending Provider Active Team Status: Active Member Role Status Dates Maida Kim OUTREACH LIBRARIAN, OUTREACH LIBRARIAN-C Primary Care Provider Active Liliane Hall Attending Provider Active Road Grader Operator Relationship Specialty Start Date End Date [facility] [address] [place] [address] PCP - General 05/13/23 Road Grader Operator Relationship Specialty Start Date End Date [facility] [address] [place] [address] PCP - General 05/13/23 Team Status: Inactive Member Role Status Dates Maida Kim OUTREACH LIBRARIAN, OUTREACH LIBRARIAN-C Primary Care Provider, Referri ng Provider Active Dr. Jesus Varma MD Attending Provider Active Team Status: Inactive Member Role Status Dates Maida Kim OUTREACH LIBRARIAN, OUTREACH LIBRARIAN-C Primary Care Provider Active Dr. 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 Start Date End Date Maida Kim [address] [place] [address] PCP - General Nurse Practitioner 09/26/23 Team Status: Active Member Role Status Dates Blue Alicia PA, PA Primary Care Provider Active Team Status: Inactive Member Role Status Dates Maida Kim OUTREACH LIBRARIAN, OUTREACH LIBRARIAN-C Primary Care Provider Active Start: April 29, 2024 End: April 29, 2024 Maida Kim OUTREACH LIBRARIAN, OUTREACH LIBRARIAN-C Referring Provider Active Start: April 29, 2024 End: April 29, 2024 Genna Armijo OUTREACH LIBRARIAN, OUTREACH LIBRARIAN-C Attending Provider Active Start: April 29, 2024 End: April 29, 2024 Team Status: Inactive Member Role Status Dates Maida Kim OUTREACH LIBRARIAN, OUTREACH LIBRARIAN-C Primary Care Provider Active Start: May 19, 2024 End: May 19, 2024 Genna Aleksander OUTREACH LIBRARIAN, OUTREACH LIBRARIAN-C Attending Provider Active Start: May 19, 2024 End: May 19, 2024 Genna Aleksander OUTREACH LIBRARIAN, OUTREACH LIBRARIAN-C Referring Provider Active Start: May 19, 2024 End: May 19, 2024 Team Status: Active Member Role Status Dates Maida Kim OUTREACH LIBRARIAN, OUTREACH LIBRARIAN-C Primary Care Provider Active Start: May 19, 2024 Dr. Jesus Varma MD Attending Provider Active S tart: May 19, 2024 Team Status: Inactive Member Role Status Dates Maida Kim OUTREACH LIBRARIAN, OUTREACH LIBRARIAN-C Primary Care Provider Active Start: May 20, 2024 End: May 20, 2024 Maida Kim OUTREACH LIBRARIAN, OUTREACH LIBRARIAN-C Referring Provider Active Start: May 20, 2024 End: May 20, 2024 Dr. Cristóbal Frod MD Attending Provider Active S tart: May 20, 2024 End: May 20, 2024 Team Status: Inactive Member Role Status Dates Maida Kim OUTREACH LIBRARIAN, OUTREACH LIBRARIAN-C Primary Care Provider Active Start: June 10, 2024 End: June 10, 2024 Maida Kim OUTREACH LIBRARIAN, OUTREACH LIBRARIAN-C Referring Provider Active Start: June 10, 2024 End: June 10, 2024 Dr. Cristóbal Ford MD Attending Provider Active S tart: June 10, 2024 End: June 10, 2024 Team Status: Inactive Member Role Status Dates Maida Kim OUTREACH LIBRARIAN, OUTREACH LIBRARIAN-C Primary Care Provider Active Start: June 15, 2024 End: June 15, 2024 Maida Kim OUTREACH LIBRARIAN, OUTREACH LIBRARIAN-C Referring Provider Active Start: June 15, 2024 End: June 15, 2024 Dr. Cristóbal Ford MD Attending Provider Active S tart: June 15, 2024 End: June 15, 2024 Team Status: Inactive Member Role Status Dates Maida Kim OUTREACH LIBRARIAN, OUTREACH LIBRARIAN-C Primary Care Provider Active Start: June 16, 2024 End: June 16, 2024 Maida Kim OUTREACH LIBRARIAN, OUTREACH LIBRARIAN-C Referring Provider Active Start: June 16, 2024 End: June 16, 2024 Dr. Yvonne Hinojosa MD Attending Provider Active Start: June 16, 2024 End: June 16, 2024 Team Status: Inactive Member Role Status Dates Maida Kim OUTREACH LIBRARIAN, OUTREACH LIBRARIAN-C Primary Care Provider Active Start: June 16, 2024 End: June 16, 2024 Dr. Yvonne Hinojosa MD Attending Provider Active Start: June 16, 2024 End: June 16, 2024 Dr. Yvonne Hinojosa MD Referring Provider Active Start: June 16, 2024 End: June 16, 2024 Team Status: Inactive Member Role Status Dates Maida Kim OUTREACH LIBRARIAN, OUTREACH LIBRARIAN-C Referring Provider Active Start: June 23, 2024 End: June 23, 2024 Dr. Yvonne Hinojosa MD Attending Provider Active Start: June 23, 2024 End: June 23, 2024 Blue Alicia PA, PA Primary Care Provider Active Start: June 23, 2024 End: June 23, 2024 Team Status: Inactive Member Role Status Dates Blue Alicia PA, PA Primary Care Provider Active Start: July 01, 2024 End: July 01, 2024 Blue Alicia PA, PA Referring Provider Active St art: July 01, 2024 End: July 01, 2024 Dr. Cristóbal Ford MD Attending Provider Active S tart: July 01, 2024 End: July 01, 2024 Team Status: Inactive Member Role Status Dates Blue Alicia PA, PA Primary Care Provider Active Start: July 05, 2024 End: July 05, 2024 Dr. Cristóbal Ford MD Attending Provider Active S tart: July 05, 2024 End: July 05, 2024 Dr. Cristóbal Ford MD Referring Provider Active S tart: July 05, 2024 End: July 05, 2024 Team Status: Inactive Member Role Status Dates Blue Alicia PA, PA Primary Care Provider Active Start: July 22, 2024 End: July 22, 2024 Blue BERMUDEZ, PA Referring Provider Active St art: July 22, 2024 End: July 22, 2024 Genna Armijo OUTREACH LIBRARIAN, OUTREACH LIBRARIAN-C Attending Provider Active Start: July 22, 2024 End: July 22, 2024 Team Status: Inactive Member Role Status Dates Blue Alicia PA, PA Primary Care Provider Active Start: July 22, 2024 End: July 22, 2024 Genna Lópezach OUTREACH LIBRARIAN, OUTREACH LIBRARIAN-C Attending Provider Active Start: July 22, 2024 End: July 22, 2024 Genna Aleksander OUTREACH LIBRARIAN, OUTREACH LIBRARIAN-C Referring Provider Active Start: July 22, 2024 End: July 22, 2024 Team Status: Active Member Role Status Dates Maida Kim OUTREACH LIBRARIAN, OUTREACH LIBRARIAN-C Primary Care Provider Active Start: August 12, 2024 Dr. Cristóbal Ford MD Attending Provider Active S tart: August 12, 2024 Dr. Cristóbal Ford MD Referring Provider Active S tart: August 12, 2024 Genna Armijo OUTREACH LIBRARIAN, OUTREACH LIBRARIAN-C Other Provider Active St art: August 12, 2024 Team Status: Inactive Member Role Status Dates Dr. Cristóbal Ford MD Attending Provider Active S tart: August 12, 2024 End: August 12, 2024 Blue BERMUDEZ, PA Primary Care Provider Active Start: August 12, 2024 End: August 12, 2024 Blue BERMUDEZ PA Referring Provider Active St art: August 12, 2024 End: August 12, 2024 Team Status: Inactive Member Role Status Dates Blue BERMUDEZ PA Primary Care Provider Active Start: August 12, 2024 End: August 12, 2024 Dr. Dain Serrano MD Attending Provider Active Start: August 12, 2024 End: August 12, 2024 Dr. Dain Serrano MD Referring Provider Active Start: August 12, 2024 End: August 12, 2024 Team Status: Active Member Role Status Dates Blue BERMUDEZ PA Primary Care Provider Active Start: August 17, 2024 Carly Carrasquillo PA, PA Attending Provider Active Start: August 17, 2024 Carly Carrasquillo PA, PA Referring Provider Active Start: August 17, 2024 Team Status: Inactive Member Role Status Dates Blue BERMUDEZ PA Primary Care Provider Active Start: August 17, 2024 End: August 17, 2024 Carly Carrasquillo PA PA Attending Provider Active Start: August 17, 2024 End: August 17, 2024 Carly Carrasquillo PA, PA Referring Provider Active Start: August 17, 2024 End: August 17, 2024 Team Status: Inactive Member Role Status Dates Blue Alicia PA, PA Primary Care Provider Active Start: August 31, 2024 End: August 31, 2024 Gennameagan Armijo OUTREACH LIBRARIAN, OUTREACH LIBRARIAN-C Attending Provider Active Start: August 31, 2024 End: August 31, 2024 Genna Aleksander OUTREACH LIBRARIAN, OUTREACH LIBRARIAN-C Referring Provider Active Start: August 31, 2024 End: August 31, 2024 Team Status: Active Member Role Status Dates Blue BERMUDEZ PA Primary Care Provider Active Start: August 31, 2024 Dr. Jesus Varma MD Attending Provider Active S tart: August 31, 2024 Team Status: Inactive Member Role Status Dates Dr. Cristóbal Ford MD Attending Provider Active S tart: September 02, 2024 End: September 02, 2024 Blue BERMUDEZ, PA Primary Care Provider Active Start: September 02, 2024 End: September 02, 2024 Blue BERMUDEZ PA Referring Provider Active St art: September 02, 2024 End: September 02, 2024 Team Status: Active Member Role Status Dates Maida Kim OUTREACH LIBRARIAN, OUTREACH LIBRARIAN-C Primary Care Provider Active Start: September 02, 2024 Dr. Cristóbal Ford MD Attending Provider Active S tart: September 02, 2024 Dr. Cristóbal Ford MD Referring Provider Active S tart: September 02, 2024 Genna Armijo OUTREACH LIBRARIAN, OUTREACH LIBRARIAN-C Other Provider Active St art: September 02, 2024 Team Status: Inactive Member Role Status Dates Blue BERMUDEZ PA Primary Care Provider Active Start: September 17, 2024 End: September 17, 2024 Dr. Dain Serrano MD Attending Provider Active Start: September 17, 2024 End: September 17, 2024 Dr. Dain Serrano MD Referring Provider Active Start: September 17, 2024 End: September 17, 2024 Team Status: Inactive Member Role Status Dates Blue BERMUDEZ, PA Primary Care Provider Active Start: September 23, 2024 End: September 23, 2024 Blue BERMUDEZ PA Referring Provider Active St art: September 23, 2024 End: September 23, 2024 Genna Armijo OUTREACH LIBRARIAN, OUTREACH LIBRARIAN-C Attending Provider Active Start: September 23, 2024 End: September 23, 2024 Team Status: Inactive Member Role Status Dates Blue BERMUDEZ PA Primary Care Provider Active Start: October 14, 2024 End: October 14, 2024 Blue BERMUDEZ PA Referring Provider Active St art: October 14, 2024 End: October 14, 2024 Genna Armijo OUTREACH LIBRARIAN, OUTREACH LIBRARIAN-C Attending Provider Active Start: October 14, 2024 End: October 14, 2024 Team Status: Active Member Role Status Dates Maida Kim NP, OUTREACH LIBRARIAN-C Primary Care Provider Active Start: October 14, 2024 Dr. Cristóbal Ford MD Referring Provider Active S tart: October 14, 2024 Genna Armijo OUTREACH LIBRARIAN, OUTREACH LIBRARIAN-C Attending Provider Active Start: October 14, 2024 Genna Armijo OUTREACH LIBRARIAN, OUTREACH LIBRARIAN-C Other Provider Active St art: October 14, 2024 Team Status: Inactive Member Role Status Dates Blue BERMUDEZ PA Primary Care Provider Active Start: October 26, 2024 End: October 26, 2024 LARA Chang Referring Provider Active St art: October 26, 2024 End: October 26, 2024 Dani BERMUDEZ PA Attending Provider Active Start: October 26, 2024 End: October 26, 2024 Team Status: Active Member Role Status Dates Dr. Wyatt Patel MD Attending Provider Active Start: September 17, 2024 Dr. Dain Serrano MD Referring Provider Active Start: September 17, 2024 Team Status: Inactive Member Role Status Dates Blue BERMUDEZ PA Primary Care Provider Active Start: October 26, 2024 End: October 26, 2024 Dain BERMUDEZ PA Attending Provider Active Start: October 26, 2024 End: October 26, 2024 Dain BERMUDEZ PA Referring Provider Active Start: October 26, 2024 End: October 26, 2024 Team Status: Active Member Role Status Dates Maida Kim NP, OUTREACH LIBRARIAN-C Primary Care Provider Active Start: November 04, 2024 Dr. Cristóbal Ford MD Referring Provider Active S tart: November 04, 2024 Genna Armijo OUTREACH LIBRARIAN, OUTREACH LIBRARIAN-C Attending Provider Active Start: November 04, 2024 Genna Armijo NP, OUTREACH LIBRARIAN-C Other Provider Active St art: November 04, 2024 Team Status: Inactive Member Role Status Dates LARA Chang Primary Care Provider Active Start: November 04, 2024 End: November 04, 2024 LARA Chang Referring Provider Active St art: November 04, 2024 End: November 04, 2024 Dr. Cristóbal Ford MD Attending Provider Active S tart: November 04, 2024 End: November 04, 2024 Team Status: Active Member Role Status Dates Maida Kim OUTREACH LIBRARIAN, OUTREACH LIBRARIAN-C Primary Care Provider Active Start: November 25, 2024 Dr. Cristóbal Ford MD Referring Provider Active S tart: November 25, 2024 Genna Armijo NP, OUTREACH LIBRARIAN-C Attending Provider Active Start: November 25, 2024 Genna Armijo NP, OUTREACH LIBRARIAN-C Other Provider Active St art: November 25, 2024 Team Status: Inactive Member Role Status Dates LARA Chang Primary Care Provider Active Start: November 25, 2024 End: November 25, 2024 LARA Chang Referring Provider Active St art: November 25, 2024 End: November 25, 2024 Dr. 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 - seeing Procedures NEW BREAST MED ONC Self, Self Josh Mancuso MD [address] [facility] 4[address], [address] [place] [address] Referral ID Status Reason Start Date Expiration Date V isits Requested Visits Authorized [id number] New Request 09/24/2022 10/19/2023 1 1 Reason Comments Vaginal Bleeding Reason Comments Follow-up Review SIS Reason Comments Surgical Consult Hysteroscopy D&C Specialty Diagnoses / Procedures Referred By Contac t Referred To Contact Diagnoses Postmenopausal bleeding Polyp of corpus uteri Procedures CO HYSTEROSCOPY BX ENDOMETRIUM&/POLYPC W/WO D&C HYSTEROSCOPY DILATION AND CURETTAGE, POLYPECTOMY Gladis Rausch MD [facility] [address] [place] [address] [facility] [place] [address] [place] [address] Referral ID Status Reason Start Date Expiration Date Visits Re quested Visits Authorized [id number] 1 1 Reason Comments Post-op Visit D&C Scheduled Active and Recently Administ ered Medications (unrecognized section and content) Medication Order 10/08/2023 10/09/2023 10/10/2023 acetaminophen (Tylenol) tablet 1,000 mg (COMPLETED) 1,000 mg, Oral, Once, On Fri10/10/23 at 0830, For 1 dose, Preprocedure, Maximum dose of acetaminophen is 4000 mg from all sources in 24 hours. Do not administer if patient has taken tylenol <6 hours earlier. Do not give if contraindicated ie. patient has active liver disease or cirrhosis. 0847 (Given - Provid er: Lenora Milner RN) famotidine (Pepcid) tablet 20 mg (COMPLETED)(Linked Group 1) 20 mg, Oral, Once, On Fri10/10/23 at 0830, For 1 dose, Preprocedure, IV or ORAL 0847 (Given - Provid er: Lenora Milner RN) gabapentin (Neurontin) capsule 100 mg (COMPLETED) 100 mg, Oral, Once, On Fri10/10/23 at 0830, For 1 dose, Preprocedure, For Age >69 or Low GFR. 0848 (Given - Provid er: Lenora Milner RN) sodium chloride 0.9% (NS) flush 10 mL 10 mL, IntraVENous, Every 12 hours scheduled (2 times per day), First dose on Fri10/10/23 at 0900, Preprocedure 0900 (Canceled Entry - Provider: Automatic Discharge Provider - Comment: Automatically canceled at discontinue of medication order) sodium chloride 0.9% (NS) flush 10 mL 10 mL, IntraVENous, Every 12 hours scheduled (2 times per day), First dose on Fri10/10/23 at 1145, Recovery (only) 1145 (Canceled Entry - Provider: Automatic Discharge Provider - Comment: Automatically canceled at discontinue of medication order) sodium chloride 0.9% (NS) flush 5-40 mL 5-40 mL, IntraVENous, Every 12 hours, First dose on Fri10/10/23 at 0830, Preprocedure, For Line Patency: Peripheral IV = 5 mL; Midline or Central Line = 10 mL/lumen. If following IV push medication, administer flush at same rate as the IV push. Flush volume is determined by type of infusion therapy being given. For non-viscous solutions use: Peripheral IV = 5 mL Midline or Central Line = 10 mL/lumen For viscous solutions (i.e. blood components, parenteral nutrition, contrast media, or after obtaining blood sample) use: Peripheral IV = 10 mL Midline or Central Line = 20 mL/lumen 0830 (Canceled Entry - Provider: Automatic Discharge Provider - Comment: Automatically canceled at discontinue of medication order) Continuous Medication Order 10/08/2023 10/09/2023 10/10/2023 lactated Ringer's (LR) infusion 50 mL/hr, IntraVENous, Continuous, Starting on Fri10/10/23 at 0830, Preprocedure, Upon admission to sameday - please start iv if patient does not have iv access. Use 500ml NS for patients on dialysis. 0848 (New Bag - Prov ider: Lenora Milner RN)1033 (Paused - Provider: SEGUN Rasmussen CRNA - Comment: Switch to gravity)1034 (Restarted - Provider: SEGUN Rasmussen CRNA)1056 (Anesthesia Volume Adjustment - Provider: SEGUN Rasmussen CRNA) lactated ringers infusion 125 mL/hr, IntraVENous, Continuous, Starting on Fri10/10/23 at 1145, Recovery (only) 1145 (Canceled Entry - Provider: Automatic Discharge Provider - Comment: Automatically canceled at discontinue of medication order) sodium chloride 0.9 % infusion 125 mL/hr, IntraVENous, Continuous, Starting on Fri10/10/23 at 0830, Preprocedure 0830 (Canceled Entry - Provider: Automatic Discharge Provider - Comment: Automatically canceled at discontinue of medication order) PRN Medication Order 10/08/2023 10/09/2023 10/10/2023 ALPRAZolam (Xanax) disintegrating tablet 0.25 mg 0.25 mg, Oral, PRN, anxiety, Starting on Fri10/10/23 at 0825, Preprocedure 0835 (Given - Provid er: Lenora Milner RN) diphenhydrAMINE (BENADryl) injection 12.5 mg 12.5 mg, IntraVENous, Once PRN, itching, Starting on Fri10/10/23 at 1136, For 1 dose, Recovery (only) fentaNYL (Sublimaze) injection 25 mcg 25 mcg, IntraVENous, Every 5 min PRN, moderate pain (4-6), Starting on Fri10/10/23 at 1136, For 3 doses, Recovery (only), Phase I and Phase II- Initial therapy for moderate pain (4-6). Restricted to a 90 minute time frame starting when the patient can verbally state their pain score. If after 2 doses the pain score does not decrease by more than one point, then call the provider. If oral meds are utilized, do not return to initial therapy medications. fentaNYL (Sublimaze) injection 50 mcg 50 mcg, IntraVENous, Every 5 min PRN, severe pain (7-10), Starting on Fri10/10/23 at 1136, For 3 doses, Recovery (only), Phase I and Phase II- Initial therapy for severe pain (7-10). Restricted to a 90 minute time frame starting when the patient can verbally state their pain score. If after 2 doses the pain score does not decrease by more than one point, then call the provider. If oral meds are utilized, do not return to initial therapy medications. hydrALAZINE (Apresoline) injection 5 mg(Linked Group 2) 5 mg, IntraVENous, Every 15 min PRN, high blood pressure, for SBP greater than 160 mmHg for 2 consecutive measurements taken from different sites, Starting on Fri10/10/23 at 1136, For 2 doses, Recovery (only), PRN for SBP > 160 for 2 consecutive measurements, and if one of the following conditions is met: 1) If IV labetolol is ineffective. 2) If HR is under 60. 3) If patient has heart block, COPD or asthma. If both labetalol and hydralazine ineffective, notify anesthesia provider. labetalol (Normodyne,Trandate) injection 5 mg(Linked Group 2) 5 mg, IntraVENous, Every 10 min PRN, high blood pressure, for SBP greater than 160 mmHg for 2 consecutive measurements taken from different sites., Starting on Fri10/10/23 at 1136, For 2 doses, Recovery (only), PRN for SBP >160 for 2 consecutive measurements, if HR is 60 or greater. If beta jeff is contraindicated (HR less than 60, heart block, COPD or asthma) use hydralazine IV order. ondansetron (Zofran) injection 4 mg 4 mg, IntraVENous, Once PRN, nausea, Starting on Fri10/10/23 at 1136, For 1 dose, Recovery (only), Initial antiemetic therapy. oxyCODONE (Roxicodone) immediate release tablet 5 mg (COMPLETED)(Linked Group 3) 5 mg, Oral, PRN, moderate pain (4-6), Starting on Fri10/10/23 at 1136, For 1 dose, Recovery (only), PHASE II 1143 (Given - Provid er: Ivonne Pineda RN) sodium chloride 0.9 % bolus 500 mL 500 mL, IntraVENous, at 1,000 mL/hr, Administer over 0.5 Hours, PRN, Anti-nausea, Starting on Fri10/10/23 at 1136, Recovery (only), Indications: Anti-nausea sodium chloride 0.9 % infusion 5-250 mL/hr, IntraVENous, PRN, if patient receiving piggyback infusions and maintenance fluids are not ordered OR KVO fluids to protect IV site / prevent frequent line interruptions / long duration, Starting on Fri10/10/23 at 0825, Preprocedure, For piggyback infusion, administer at same rate as piggyback for a total of 25 mL. Enter 25 mL into dose field and piggyback rate into rate field of order. If piggyback is infusing at a rate less than 100 mL/hr, enter 25 mL into dose field and 100 mL/hr into rate field of order. For KVO fluids, enter rate of 20 mL/hr or less into rate field of order. sodium chloride 0.9 % infusion 5-250 mL/hr, IntraVENous, PRN, if patient receiving piggyback infusions and maintenance fluids are not ordered OR KVO fluids to protect IV site / prevent frequent line interruptions/ long duration, Starting on Fri10/10/23 at 0825, Preprocedure, For piggyback infusion, administer at same rate as piggyback for a total of 25 mL. Enter 25 mL into dose field and piggyback rate into rate field of order. If piggyback is infusing at a rate less than 100 mL/hr, enter 25 mL into dose field and 100 mL/hr into rate field of order. For KVO fluids, enter rate of 20 mL/hr or less into rate field of order. sodium chloride 0.9 % infusion 5-250 mL/hr, IntraVENous, PRN, if patient receiving piggyback infusions and maintenance fluids are not ordered OR KVO fluids to protect IV site / prevent frequent line interruptions/ long duration, Starting on Fri10/10/23 at 1136, Recovery (only), For piggyback infusion, administer at same rate as piggyback for a total of 25 mL. Enter 25 mL into dose field and piggyback rate into rate field of order. If piggyback is infusing at a rate less than 100 mL/hr, enter 25 mL into dose field and 100 mL/hr into rate field of order. For KVO fluids, enter rate of 20 mL/hr or less into rate field of order. sodium chloride 0.9 % irrigation solution (CANCELED) As needed, Starting on Fri10/10/23 at 1047, Intraprocedure 1047 (Given - Provid er: Gladis Rausch MD - Comment: MYOSURE) sodium chloride 0.9% (NS) flush 10 mL 10 mL, IntraVENous, PRN, line care, Starting on Fri10/10/23 at 0825, Preprocedure, After every IV line use sodium chloride 0.9% (NS) flush 10 mL 10 mL, IntraVENous, PRN, line care, Starting on Fri10/10/23 at 1136, Recovery (only), After every IV line use sodium chloride 0.9% (NS) flush 5-40 mL 5-40 mL, IntraVENous, PRN, line care, After every IV line use, Starting on Fri10/10/23 at 0825, Preprocedure, For Line Patency: Peripheral IV = 5 mL; Midline or Central Line = 10 mL/lumen. If following IV push medication, administer flush at same rate as the IV push. Flush volume is determined by type of infusion therapy being given. For non-viscous solutions use: Peripheral IV = 5 mL Midline or Central Line = 10 mL/lumen For viscous solutions (i.e. blood components, parenteral nutrition, contrast media, or after obtaining blood sample) use: Peripheral IV = 10 mL Midline or Central Line = 20 mL/lumen sterile water irrigation solution (CANCELED) As needed, Starting on Fri10/10/23 at 1103, Intraprocedure 1103 (Given - Provid er: Gladis Rausch MD) Linked Groups Order Group 1: famotidine (Pepcid) tablet 20 mg (COMPLETED)Jump to med 20 mg, Oral, Once, On Fri10/10/23 at 0830, For 1 dose, Preprocedure, IV or ORAL Or famotidine (Pepcid) 20 mg in sodium chloride (PF) 0.9 % 10 mL injection (COMPLETED) 20 mg, IntraVENous, Administer over 2 Minutes, Once, On Fri10/10/23 at 0830, For 1 dose, Preprocedure, IV or ORAL Group 2: labetalol (Normodyne,Trandate) injection 5 mgJump to med 5 mg, IntraVENous, Every 10 min PRN, high blood pressure, for SBP greater than 160 mmHg for 2 consecutive measurements taken from different sites., Starting on Fri10/10/23 at 1136, For 2 doses, Recovery (only), PRN for SBP >160 for 2 consecutive measurements, if HR is 60 or greater. If beta jeff is contraindicated (HR less than 60, heart block, COPD or asthma) use hydralazine IV order. Or hydrALAZINE (Apresoline) injection 5 mgJump to med 5 mg, IntraVENous, Every 15 min PRN, high blood pressure, for SBP greater than 160 mmHg for 2 consecutive measurements taken from different sites, Starting on Fri10/10/23 at 1136, For 2 doses, Recovery (only), PRN for SBP > 160 for 2 consecutive measurements, and if one of the following conditions is met: 1) If IV labetolol is ineffective. 2) If HR is under 60. 3) If patient has heart block, COPD or asthma. If both labetalol and hydralazine ineffective, notify anesthesia provider. Group 3: oxyCODONE (Roxicodone) immediate release tablet 5 mg (COMPLETED)Jump to med 5 mg, Oral, PRN, moderate pain (4-6), Starting on Fri10/10/23 at 1136, For 1 dose, Recovery (only), PHASE II Or oxyCODONE (Roxicodone) immediate release tablet 10 mg (COMPLETED) 10 mg, Oral, PRN, severe pain (7-10), Starting on Fri10/10/23 at 1136, For 1 dose, Recovery (only), PHASE II FOR RECORDS PERTAINING TO PATIENTS WHO ARE OR HAVE BEEN ENROLLED IN A CHEMICAL DEPENDENCY/SUBSTANCEABUSE PROGRAM, SOME INFORMATION MAY BE OMITTED. This clinical summary was aggregated from multiple sources. Caution should be exercised in using it in the provision of clinical care. This summary normalizes information from multiple sources, and as a consequence, information in this document may materially change the coding, format and clinical context of patient data. In addition, data may be omitted in some cases. CLINICAL DECISIONS SHOULD BE BASED ON THE PRIMARY CLINICAL RECORDS. [employer] [facility]. provides no warranty or guarantee of the accuracy or completeness of information in this document.
== END | disposition home or self-care (01) ==
PROVIDERS: PCP Physician Assistant; Referring Provider Internal Medicine Medical Oncology; Visit Provider Internal Medicine Medical Oncology
DX: Z51.12 Encounter for antineoplastic immunotherapy (principal); C50.412 Malignant neoplasm of upper-outer quadrant of left female breast; Z17.0 Estrogen receptor positive status [ER+]; Z79.899 Other long term (current) drug therapy
CPT/HCPCS: 93308; 93356

== ENCOUNTER → 2025-03-08 | Outpatient (CLI) | payer BC, SELFPAY ==
--- NOTE | 2025-03-08 07:57 | ECHODONC_ITS ---
Reason For Study Reason For Study: [employer] Procedure This was a 2D Doppler, Color Flow transthoracic echocardiogram. Myocardial strain analysis was performed in this exam to aid in the assessment of cardiac function. Exam performed in department. Left Ventricle Normal LV size. Mild concentric left ventricular hypertrophy. Left ventricular systolic function is normal. The left ventricular ejection fraction is 55 %. No regional wall motion abnormalities noted. Right Ventricle Normal RV size. Normal systolic function. Atria Normal left atrium. Normal right atrium. Mitral Valve Normal mitral valve. Tricuspid Valve Normal tricuspid valve. Mild (1+) tricuspid valve insufficiency. Pulmonary artery systolic pressure is 30 mmHg. Aortic Valve Trisinus/trileaflet aortic valve. Pulmonic Valve Normal pulmonic valve. Great Vessels Normal aortic root. The pulmonary artery is normal size. Inferior vena cava collapse with respiration. Pericardium/Pleural No pericardial effusion. MMode/2D Measurements & Calculations LVIDd: 4.8 cm IVSd: 1.2 cm Ao root diam: 3.3 cm LVIDs: 3.2 cm LVPWd: 1.2 cm RVDd: 3.4 cm FS: 34.3 % LAV(MOD-bp): 38.0 ml LVAd ap4: 27.7 cm2 SV(MOD-sp4): 50.5 ml LAV(MOD-bp) Indexed: 17.7 ml/m2 LVLd ap4: 7.9 cm SI(MOD-sp4): 23.5 ml/m2 LAV(MOD-sp2): 34.4 ml EDV(MOD-sp4): 81.7 ml LAV(MOD-sp4): 35.3 ml EDV(sp4-el): 82.4 ml LVAs ap4: 15.4 cm2 LVLs ap4: 6.6 cm ESV(MOD-sp4): 31.1 ml ESV(sp4-el): 30.5 ml EF(MOD-sp4): 61.9 % EF(sp4-el): 62.9 % SV(sp4-el): 51.9 ml LA A4 area: 15.3 cm2 LA dimension(2D): 3.4 cm RA A4 area: 14.0 cm2 TAPSE: 1.9 cm Time Measurements MV dec time: 0.23 sec Doppler Measurements & Calculations MV E max rasheed: 66.3 cm/sec Lat Peak E' Rasheed: 11.6 cm/sec Med Peak E' Rasheed: 10.2 cm/sec MV A max rasheed: 60.6 cm/sec E/E' lat: 5.7 E/E' med: 6.5 MV E/A: 1.1 Ao V2 max: 129.8 cm/sec LV V1 max: 104.4 cm/sec PA V2 max: 128.7 cm/sec Ao max P.7 mmHg LV V1 max P.4 mmHg TR max rasheed: 261.8 cm/sec TR max P.4 mmHg ECHO/ONC Echo Complete Interpretation Summary Normal LV size. Left ventricular systolic function is normal. The left ventricular ejection fraction is 55 %. Mild (1+) tricuspid valve insufficiency. The global longitudinal strain is normal. The global longitudinal strain = -18. 1 % (normal). Ordering Physician: Genna Zuniga Referring Physician: SHELLEY MARK Performed By: Bhavana Hogue RDCS
== END | disposition home or self-care (01) ==
PROVIDERS: PCP Physician Assistant; Referring Provider Nurse Practitioner Family; Visit Provider Nurse Practitioner Family
DX: Z51.81 Encounter for therapeutic drug level monitoring (principal); C50.412 Malignant neoplasm of upper-outer quadrant of left female breast; Z79.899 Other long term (current) drug therapy; Z17.0 Estrogen receptor positive status [ER+]; Z17.31 Human epidermal growth factor receptor 2 positive status
CPT/HCPCS: 93306; 93356

== ENCOUNTER → 2025-03-29 | Outpatient (CLI) | payer BC, SELFPAY ==
--- NOTE | 2025-03-29 07:21 | MRI_ITS ---
PROCEDURE: BRAIN W/WO CONTRAST 03/29/2025 REASON FOR EXAM: BREAST CA-HEADACHE TECHNIQUE: Procedure Code: [id number] Modality: MR Procedure: BRAIN W/WO CONTRAST Multiplanar and multisequence images were obtained. CONTRAST: Clariscan VOLUME: 20 mL COMPARISON: PET-CT dated June 15, 2024 and December 07, 2024 FINDINGS: BRAIN: No restricted diffusion to indicate acute infarction. No intracranial mass or hemorrhage. No midline shift or extra-axial fluid collection. No sulcal effacement. No cerebellar tonsillar ectopia. The central arterial and venous flow voids are patent. No abnormal pattern of enhancement to suggest metastatic disease. VENTRICLES: No hydrocephalus. ORBITS: The orbits are normal. SINUSES AND MASTOIDS: The sinuses and mastoid air cells are clear. BONES: No focal osseous lesion. MRI/Brain W/WO Contrast IMPRESSION: No evidence of metastatic disease in the brain. Reading Location: [id number]
--- NOTE | 2025-03-29 07:21 | MRI_ITS ---
PROCEDURE: BRAIN W/WO CONTRAST 03/29/2025 REASON FOR EXAM: BREAST CA-HEADACHE TECHNIQUE: Procedure Code: [id number] Modality: MR Procedure: BRAIN W/WO CONTRAST Multiplanar and multisequence images were obtained. CONTRAST: Clariscan VOLUME: 20 mL COMPARISON: PET-CT dated June 15, 2024 and December 07, 2024 FINDINGS: BRAIN: No restricted diffusion to indicate acute infarction. No intracranial mass or hemorrhage. No midline shift or extra-axial fluid collection. No sulcal effacement. No cerebellar tonsillar ectopia. The central arterial and venous flow voids are patent. No abnormal pattern of enhancement to suggest metastatic disease. VENTRICLES: No hydrocephalus. ORBITS: The orbits are normal. SINUSES AND MASTOIDS: The sinuses and mastoid air cells are clear. BONES: No focal osseous lesion. MRI/Brain W/WO Contrast IMPRESSION: No evidence of metastatic disease in the brain. Reading Location: [id number]
--- OUTSIDE RECORDS SUMMARY | 2025-03-29 07:31 | XMS RPT_ITS | CCD ---
Author Organization [facility] Care Team Providers Care Vender Name Role Phone CAROLINA MCGREGOR (ATHLETICS TEACHER) Unavailable Unavailable Daily PT, Sylvia Unavailable Unavailable Julio MANAGER FIBER, MANAGER FIBER-C Maida Primary Care Provider [phone] Julio MANAGER FIBER, MANAGER FIBER-C Maida Referring Provider [phone] LARA Martin Attending Provider [phone] LARA Tobias Attending Provider [phone] Dr. Jesus Varma Attending Provider [phone] Julio MANAGER FIBER, MANAGER FIBER-C Maida Primary Care Provider [phone] Julio MANAGER FIBER, MANAGER FIBER-C Maida Referring Provider [phone] LARA Martin Attending Provider [phone] Dr. Jesus Varma Attending Provider [phone] Cristóbal Hernández Attending Provider [phone] Julio MANAGER FIBER, MANAGER FIBER-C Maida Primary Care Provider Julio MANAGER FIBER, MANAGER FIBER-C Maida Referring Provider [phone] LARA Martin Attending Provider [phone] Dr. Josh Wolfe Attending Provider JULIO MOLDING MACHINE OPERATOR HELPER-ATHLETICS TEACHER, MAIDA S Primary Care Physicia n Julio MANAGER FIBER, MANAGER FIBER-C Maida Primary Care Provider [phone] Julio MANAGER FIBER, MANAGER FIBER-C Maida Referring Provider [phone] Dr. Cristóbal Ford Attending Provider Dr. Josh Wolfe Referring Provider Dr. Josh Wolfe Other Provider Dr. Cristóbal Ford Other Provider Dr. Jey Mackenzie Attending Provider Aleksander MANAGER FIBER, MANAGER FIBER-C Genna Attending Provider Julio MANAGER FIBER, MANAGER FIBER-C Maida Primary Care Provider Julio MANAGER FIBER, MANAGER FIBER-C Maida Referring Provider [phone] Julio MANAGER FIBER, MANAGER FIBER-C Maida Primary Care Provider Julio MANAGER FIBER, MANAGER FIBER-C Maida Referring Provider [phone] Dr. Josh Wolfe Attending Provider Dr. Cristóbal Ford Attending Provider Dr. Josh Wolfe Referring Provider Dr. Josh Wolfe Other Provider Dr. Cristóbal Ford Other Provider Dr. Jey Mackenzie Attending Provider Aleksander GARCIA, MANAGER FIBER-C Genna Attending Provider Dr. Cristóbal Ford Referring Provider Josh Mancuso MD Unavailable Cliff ARCOSN-ATHLETICS TEACHER, Paige L Unavailable [phone] Liliana BYRNE/Cristóbal REYES Unavailable Maida Flores S Primary Care Provider [phone] Laurel Tomas RN Unavailable Unavailable MAIDA KIM S Primary Care Unavailable SELF, SELF Referring Unavailable JOSH MANCUSO Attending Unavailable Julio MANAGER FIBER, MANAGER FIBER-C Maida Primary Care Provider Julio MANAGER FIBER, MANAGER FIBER-C Maida Referring Provider [phone] Dr. Cristóbal Ford Attending Provider Aleksander GARCIA, MANAGER FIBER-C Genna Attending Provider Dr. Josh Wolfe Attending Provider Dr. Jesus Varma Attending Provider [phone] LARA Martin Attending Provider Dr. Harjinder Peters Attending Provider [phone] Julio MANAGER FIBER, MANAGER FIBER-C Maida Primary Care Provider Julio MANAGER FIBER, MANAGER FIBER-C Maida Referring Provider [phone] Aleksander MANAGER FIBER, MANAGER FIBER-C Genna Attending Provider Dr. Cristóbal Ford Attending Provider Dr. Cristóbal Ford Referring Provider Julio MANAGER FIBER, MANAGER FIBER-C Maida Primary Care Provider Marcus Hook MANAGER FIBER, MANAGER FIBER-C Maida Referring Provider [phone] Dr. Cristóbal Ford Attending Provider [phone] Aleksander MANAGER FIBER, MANAGER FIBER-C Genna Attending Provider Dr. Emelia Carrington Attending Provider Julio MANAGER FIBER, MANAGER FIBER-C Maida Primary Care Provider [phone] Julio MANAGER FIBER, MANAGER FIBER-C Maida Referring Provider [phone] Dr. Cristóbal Ford Attending Provider [phone] LARA Martin Attending Provider [phone] Marcus Hook MANAGER FIBER, MANAGER FIBER-C Maida Primary Care Provider Marcus Hook MANAGER FIBER, MANAGER FIBER-C Maida Referring Provider [phone] Aleksander MANAGER FIBER, MANAGER FIBER-C Genna Attending Provider Dr. Emelia Carrington Attending Provider Dr. Cristóbal Ford Attending Provider LARA Martin Attending Provider [phone] Liliane Hall Attending Provider UnavailDr. Jesus Egan Attending Provider [phone] JULIO MOLDING MACHINE OPERATOR HELPER-ATHLETICS TEACHER, MAIDA S Attending Unava ilable JULIO MOLDING MACHINE OPERATOR HELPER-ATHLETICS TEACHER, MAIDA S Primary Care Unava ilable LISA LYN DO Attending Unavailable JULIO MOLDING MACHINE OPERATOR HELPER-ATHLETICS TEACHER, MAIDA S Primary Care Unava ilable Inc, [facility] Primary Care Provider Unav ailable Julio MANAGER FIBER, MANAGER FIBER-C Maida Primary Care Provider Liliane Hall Attending Provider Unavailabl e Julio MANAGER FIBER, MANAGER FIBER-C Maida Referring Provider [phone] Aleksander MANAGER FIBER, MANAGER FIBER-C Genna Attending Provider Dr. Jesus Varma Attending Provider Dr. Cristóbal Ford Attending Provider Julio, Maida S Primary Care Provider [phone] JULIO, MAIDA Primary Care Unavailable GLADIS RAUSCH Attending Unavailable INC, [facility] Primary Care Unavailable NIKKO GOLDBERG Attending Unavailable GLADIS RAUSCH Attending Unavailable INC, [facility] Primary Care Unavailable JULIO, MAIDA Primary Care Unavailable GLADIS RAUSCH Attending Unavailable INC, [facility] Primary Care Unavailable NKIKO GOLDBERG Attending Unavailable INC, [facility] Primary Care Unavailable NIKKO GOLDBERG Referring Unavailable JULIO, MAIDA Primary Care Unavailable GLADIS RAUSCH Admitting Unavailable GLADIS RAUSCH Attending Unavailable Marcus Hook MANAGER FIBER-C, Maida Primary Care Provider [phone] Julio MANAGER FIBER-C, Maida Referring Provider [phone] Aleksander MANAGER FIBER-C, Genna Attending Provider Aleksander MANAGER FIBER-C, Genna Referring Provider Avani NOONAN, Dr. Lee Attending Provider Dr. Cristóbal Ford MD Attending Provider Dr. Yvonne Hinojosa MD Attending Provider Dr. Yvonne Hinojosa MD Referring Provider Blue Martin Primary Care Provider Blue Martin Referring Provider Dr. Cristóbal Ford MD Referring Provider Aleksander MANAGER FIBER-C, Genna Other Provider Dr. Dain Serrano MD Attending Provider [phone] Dr. Dain Serrano MD Referring Provider [phone] Carly Manzanares Attending Provider [phone] Carly Manzanares Referring Provider [phone] Marcus Hook MANAGER FIBER-C, Maida Primary Care Provider [phone] Aleksander MANAGER FIBER-C, Genna Attending Provider Marcus Hook MANAGER FIBER-C, Maida Referring Provider [phone] Aleksander MANAGER FIBER-C, Genna Other Provider Julio MANAGER FIBER-C, Maida Primary Care Provider [phone] Julio MANAGER FIBER-C, Maida Referring Provider [phone] Dr. Cristóbal Ford MD Attending Provider Aleksander MANAGER FIBER-C, Genna Attending Provider Aleksander MANAGER FIBER-C, Genna Referring Provider Avani NOONAN, Dr. Lee Attending Provider [phone] Blue Martin Primary Care Provider [phone] Dr. Cristóbal Ford MD Attending Provider Julio MANAGER FIBER-C, Maida Primary Care Provider [phone] Aleksander MANAGER FIBER-C, Genna Other Provider Dain Bishop Attending Provider [phone] Blue Martin Primary Care Provider [phone] Blue Martin Referring Provider Dr. Cristóbal Ford MD Attending Provider Dr. Wyatt Patel MD Attending Provider Dain Bishop Referring Provider [phone] Julio MANAGER FIBER-C, Maida Primary Care Provider [phone] Dr. Cristóbal Ford MD Referring Provider Aleksander MANAGER FIBER-C, Genna Other Provider Blue Martin Primary Care Provider [phone] Blue Martin Referring Provider [phone] Aleksander MANAGER FIBER-C, Genna Attending Provider Aleksander MANAGER FIBER-C, Genna Referring Provider [phone] Julio MANAGER FIBER-C, Maida Primary Care Provider [phone] Liliana NOONAN, Dr. Ambrocio Referring Provider Aleksander MANAGER FIBER-C, Genna Other Provider Ravin PA, Blue Primary Care Provider [phone] Liliana NOONAN, Dr. Ambrocio Attending Provider Ravin PA, Blue Referring Provider [phone] Navya NOONAN, Dr. Gautam Attending Provider [phone] Navya NOONAN, Dr. Gautam Referring Provider [phone] Liliana NOONAN, Dr. Ambrocio Referring Provider [phone] Julio MANAGER FIBER-C, Maida Primary Care Provider [phone] Aleksander MANAGER FIBER-C, Genna Other Provider Ravin PA, Blue Attending Provider [phone] Wayseth PA, Blue Primary Care Provider [phone] Ravin PA, Blue Referring Provider [phone] Aleksander MANAGER FIBER-C, Genna Attending Provider [phone] Liliana NOONAN, Dr. Ambrocio Attending Provider [phone] Avani NOONAN, Dr. Lee Attending Provider [phone] NURSE, BIM Attending Provider Unavailable Julio MANAGER FIBER-C, Maida Primary Care Provider [phone] Aleksander MANAGER FIBER-C, Genna Other Provider Wayt PA, Blue Primary Care Provider [phone] Ravin PA, Blue Referring Provider [phone] Aleksander MANAGER FIBER-C, Genna Attending Provider Ungerer MANAGER FIBER-C, Maida Attending Provider [phone] Julio MANAGER FIBER-C, Maida Primary Care Provider [phone] Aleksander MANAGER FIBER-C, Genna Other Provider Blue Martin Primary Care Provider Ravin BERMUDEZ, Blue Referring Provider Aleksander MANAGER FIBER-C, Genna Attending Provider Marcus Hook MANAGER FIBER-C, Maida Primary Care Provider [phone] Aleksander MANAGER FIBER-C, Genna Other Provider Blue Martin Primary Care Physician Ravin BERMUDEZ, Blue Referring Provider Dr. Cristóbal Ford MD Attending Physician Avani NOONAN, Dr. Lee Attending Physician Blue Martin Attending Physician Ungerer MANAGER FIBER-C, Maida Attending Physician Aleksander MANAGER FIBER-C, Genna Attending Physician Aleksander MANAGER FIBER-C, Genna Referring Provider Marcus Hook MANAGER FIBER-C, [facility] Primary Care Physician [phone] Aleksander MANAGER FIBER-C, Genna Nurse Practitioner Julio MANAGER FIBER, [facility] Primary Care Unavailable Julio MANAGER FIBER, [facility] Referring Unavailable Cristóbal Ford Attending Unavailable Dain Serrano Referring Unavailable Dain Serrano Attending Unavailable Ravin BERMUDEZ, Blue Primary Care Unavailable Ravin BERMUDEZ, [facility] Primary Care Unavailable Dain Bishop Attending Unavailable Dain Bishop Referring Unavailable Dain Serrano Referring Unavailable Dain Serrano Attending Unavailable Ravin BERMUDEZ, [facility] Primary Care Unavailable Aleksander MANAGER FIBER, Genna Referring Unavailable Aleksander MANAGER FIBER, Genna Attending Unavailable Ravin BERMUDEZ, [facility] Primary Care Unavailable Dain Serrano Attending Unavailable Dain Serrano Referring Unavailable Ravin BERMUDEZ, [facility] Primary Care Unavailable Aleksander MANAGER FIBER, Genna Referring Unavailable Aleksander MANAGER FIBER, Genna Attending Unavailable Ravin BERMUDEZ, [facility] Primary Care Unavailable Julio MANAGER FIBER, [facility] Primary Care Unavailable Robotham, Yvonne Referring Unavailable Robotartie Yvonne Attending Unavailable Wayt PA, Blue Primary Care Unavailable PraCristóbal scott Consulting Unavailable PraCristóbal scott Referring Unavailable PrahCristóbal Attending Unavailable Wayt PA, Blue Primary Care Unavailable Wayt PA, Blue Referring Unavailable Prah, Cristóbal Attending Unavailable Wayt PA, Blue Primary Care Unavailable Wayt PA, Blue Referring Unavailable Pratyler, Cristóbal Attending Unavailable Aleksander MANAGER FIBER, Genna Attending Unavailable Wayt PA, Bleu Primary Care Unavailable Wayt PA, Blue Referring Unavailable Wayt PA, Blue Primary Care Unavailable Pratyler, Cristóbal Attending Unavailable Wayt PA, Blue Referring Unavailable Wayt PA, Blue Primary Care Unavailable Wayt PA, Blue Referring Unavailable Wayt PA, Blue Attending Unavailable Wayt PA, Blue Primary Care Unavailable Wayt PA, Blue Referring Unavailable Wayt PA, Blue Attending Unavailable Wayt PA, Blue Primary Care Unavailable Carly Manzanares Attending Unavail able Foreign PA, Carly Epperson Referring Unavail able Aleksander MANAGER FIBER, Genna Attending Unavailable Aleksander MANAGER FIBER, Genna Referring Unavailable Julio MANAGER FIBER, [facility] Primary Care Unavailable Aleksander MANAGER FIBER, Genna Consulting Unavailable Aleksander MANAGER FIBER, Genna Attending Unavailable Julio MANAGER FIBER, [facility] Primary Care Unavailable Cristóbal Ford Referring Unavailable Wayt PA, Blue Primary Care Unavailable Jesus Varma Attending Unavailable Wayt PA, Blue Primary Care Unavailable Jesus Varma Attending Unavailable Pratyler, Cristóbal Attending Unavailable Wayt PA, Blue Primary Care Unavailable Wayt PA, Blue Referring Unavailable Liliana, Cristóbal Attending Unavailable Cristóbal Ford Referring Unavailable Wayt PA, Blue Primary Care Unavailable Cristóbal Ford Attending Unavailable Cristóbal Ford Referring Unavailable Wayt PA, Blue Primary Care Unavailable Aleksander MANAGER FIBER, Genna Attending Unavailable Aleksander MANAGER FIBER, Genna Referring Unavailable Wayt PA, Blue Primary Care Unavailable Aleksander MANAGER FIBER, Genna Attending Unavailable Julio MANAGER FIBER, Maida Referring Unavailable Julio MANAGER FIBER, [facility] Primary Care Unavailable Aleksander MANAGER FIBER, Genna Attending Unavailable Wayt PA, Blue Primary Care Unavailable Wayt PA, Blue Referring Unavailable Aleksander MANAGER FIBER, Genna Attending Unavailable Wayt PA, Blue Primary Care Unavailable Wayt PA, Blue Referring Unavailable Wayt PA, Blue Primary Care Unavailable Wayt PA, Blue Referring Unavailable Dain Bishop Attending Unavailable Wayt PA, Blue Primary Care Unavailable Wayt PA, Blue Referring Unavailable Prah, Cristóbal Attending Unavailable Aleksander MANAGER FIBER, Genna Attending Unavailable Wayt PA, Blue Primary Care Unavailable Wayt PA, Blue Referring Unavailable Wayt PA, Blue Primary Care Unavailable Wayt PA, Blue Referring Unavailable Wayt PA, Blue Attending Unavailable Marcus Hook MANAGER FIBER, Maida Referring Unavailable Julio MANAGER FIBER, Maida Primary Care Unavailable Aleksander MANAGER FIBER, Genna Attending Unavailable Prah, Cristóbal Attending Unavailable Wayt PA, Blue Primary Care Unavailable Wayt PA, Blue Referring Unavailable Prah, Cristóbal Attending Unavailable Wayt PA, Blue Primary Care Unavailable Wayt PA, Blue Referring Unavailable Wayt PA, Blue Primary Care Unavailable DarrelrMaida Attending Unavailable Wayt PA, Blue Referring Unavailable Wayt PA, Blue Primary Care Unavailable Wayt PA, Blue Referring Unavailable Prah, Cristóbal Attending Unavailable Wayt PA, Blue Primary Care Unavailable Jesus Varma Attending Unavailable Julio MANAGER FIBER, Maida Primary Care Unavailable Julio MANAGER FIBER, Maida Referring Unavailable Robotham Yvonne Attending Unavailable Julio MANAGER FIBER, Maida Referring Unavailable Robotham Yvonne Attending Unavailable Wayt PA, Blue Primary Care Unavailable Prah, Cristóbal Attending Unavailable Wayt PA, Blue Primary Care Unavailable Wayt PA, Blue Referring Unavailable Aleksander MANAGER FIBER, Genna Attending Unavailable Wayt PA, Blue Primary Care Unavailable Wayt PA, Blue Referring Unavailable Julio MANAGER FIBER, Maida Primary Care Unavailable Julio MANAGER FIBER, Maida Referring Unavailable Pratyler, Cristóbal Attending Unavailable Julio MANAGER FIBER, Maida Primary Care Unavailable Jesus Varma Attending Unavailable Julio MANAGER FIBER, Maida Primary Care Unavailable Julio MANAGER FIBER, Maida Referring Unavailable Pratyler, Cristóbal Attending Unavailable Allergies Allergy Classification Reported Allergen(s) Allergy Type Date of Onset Reaction(s) Facility (16 sources) Latex Allergy to substance 08-12-2024 blisters [facility] (1 source) Latex Drug allergy (disorder) 03-24-2025 [facility] Repository Medications Current Medications Medication Drug Class(es) Dates Sig (Normalized) Sig (Original) Biotin (20 sources) Start: 01-09-2024 Start: 01-09-2024 Biotin (Hair, Skin And Nails [...] by mouth 2 times daily. 0 Active Kinney DM 7.5 mg-7.5 mg/5 mL oral liquid (1 source) Start: take 1 dose by mouth every eight hours as needed for cough and congestion Kinney DM 7.5 mg-7.5 mg/5 mL oral liquid Dose = 20 mL, Oral, q8h, PRN as needed for cough and congestion, # 473 mL, 1 Refill(s), Pharmacy: [facility]/pharmacy #[id number], URI with cough and congestion, 171.5, cm, 06/07/22 10:04:00 EST, Height Start Date: 06/07/22 Status: Ordered cholecalciferol 0.025 mg oral capsule (20 sources) Vitamin D Start: take 1 capsule by mouth once daily Cholecalciferol (Vitamin D3) 1,000 unit capsule Active 1000 U PO DAILY February 20, 2018 12:00am Complies with drug therapy take 1 capsule by mouth once coco ly cholecalciferol 50 MCG (2000 UT) capsule Take 1 capsule by mouth daily. 0 Active dexamethasone 0.001 mg/mg / neomycin 0.0035 mg/mg / polymyxin b 10 unt/mg ophthalmic ointment (10 sources) Aminoglycoside Antibacterial, Polymyxin-class Antibacterial, Corticosteroid Start: 11-25-2024 doxycycline hyclate 100 mg oral capsule (3 [...] qDay, # 15 tab(s), 1 Refill(s), Pharmacy: [facility]/pharmacy #[id number], 171.5, cm, 05/22/22 16:11:00 EST, Height Start Date: 05/22/22 Stop Date: 07/21/22 Status: Ordered loratadine 10 mg oral tablet (1 source) take 1 tablet by mouth once daily as needed Loratadine 10 MG tablet Take 1 tablet by mouth daily as needed. 0 Active meloxicam 15 mg oral tablet (20 sources) Nonsteroidal Anti-inflammatory Drug Start: take 7.5 mg by mouth once daily Start: 04-08-2024 End: 05-20-2024 take 3.75 mg [...] mg tablet Discontinued 15 mg PO DAILY 30 0 November 09, 2020 12:00am July 30, 2021 [...] Start: 02-20-2018 take 1 capsule by mo uth once daily multivitamin capsule Active 1 CAP PO DAILY February 20, 2018 12:00am Multivitamin capsule (16 sources) Start: 02-20-2018 Multivitamin c apsule Active 1 NMA PO DAILY February 20, 2018 12:00am Complies with drug therapy Start: 02-20-2018 Multivitamin c apsule Active 1 NMA PO DAILY February 20, 2018 12:00am oxyCODONE hydrochloride 5 mg oral tablet (20 sources) Opioid Agonist Start: 09-23-2024 take 5-10 mg by mout h every six hours as needed Start: 04-08-2024 End: 05-20-2024 take 1 tablet by mouth every six hours as needed Oxycodone 5 mg tablet Discontinued 5 mg PO EVERY 6 HOURS as needed 0 April 08, 2024 12:00am May 20, 2024 12:14pm 14 ml pertuzumab 30 mg/ml injection (20 sources) HER2/best Receptor Antagonist Start: 06-08-2024 Start: 01-09-2024 End: 06-08-2024 Pertuzumab (Perjeta) 420 mg/ 14 mL (30 mg/mL) solution Discontinued mg .Route January 09, 2024 12:00am June 08, 2024 4:17pm INTRAVENOUSLY FOR BREAST CANCER; EVERY 21 DAYS Start: 06-27-2022 pertuzumab (Pe rjeta) 420 MG/14ML injection Every 21 days 0 06/27/2022 Active pyridoxine (4 sources) Pyridoxine HCl (VITAMIN B-6 PO) Take by mouth daily. 0 Active spironolactone 100 mg oral tablet (20 sources) [...] take 1 tablet by mouth once daily Start: 01-09-2024 End: 02-02-2024 take 1 tablet by mouth three times daily Tamoxifen 20 mg tablet Discontinued 20 mg PO THREE TIMES A DAY January 09, 2024 10:46am February 02, 2024 9:26am Start: 01-27-2023 End: 01-09-2024 take 1 tablet by mouth twice daily Tamoxifen 20 mg tablet Discontinued 20 mg PO TWICE A DAY 180 90 3 February 05, 2023 8:07am January 09, 2024 10:46am Start: 06-27-2022 End: 09-30-2022 take 1 tablet by mouth twice daily Tamoxifen 20 mg tablet Discontinued 0 .ROUTE .COMPLEX 180 1 July 23, 2022 3:57pm September 30, 2022 2:59pm TAKE ONE TABLET BY MOUTH TWICE A DAY Tirzepatide (Weight Loss) (4 sources) Start: 01-25-2025 Start: 01-25-2025 Tirzepatide (W eight Loss) (Zepbound) 5 mg/0.5 mL pen injector Active 5 mg SC EVERY WEEK 2 2 January 25, 2025 12:00am trastuzumab-anns 21 mg/ml injectable solution (20 sources) HER2/best Receptor Antagonist Start: 06-08-2024 Start: 01-09-2024 End: 06-08-2024 Trastuzumab-Anns (Kanjinti) 420 mg recon soln Discontinued mg .Route January 09, 2024 12:00am June 08, 2024 4:17pm INTRAVENOUSLY FOR BREAST CANCER TREATMENT; EVERY 21 DAYS Start: 10-01-2023 Kanjinti 420 M G Every 21 days 0 10/01/2023 Active Vitamin B6 (20 sources) Start: 11-04-2024 Start: 11-04-2024 vitamin b6 Act denzel PO [...] EVERY 6 HOURS as needed for pain 10 4 0 June 18, 2022 June 21, 2022 1:00am June 22, 2022 1:13am Malignant neoplasm of breast Malignant neoplasm of unspecified site of unspecified female breast Start: 06-17-2022 End: 08-29-2022 take 1 tablet by mouth every six hours Hydrocodone-Acetaminophen Discontinued 1 TABLET PO EVERY 6 HOURS 10 4 June 18, 2022 June 22, 2022 1:13am acetaminophen [...] TWICE A DAY as needed for anxiety 14 0 June 26, 2022 1:00am Anxiety about health Other specified anxiety disorders Complies with drug therapy Start: 02-20-2018 End: 06-26-2022 Alprazolam (Xanax) 1 mg tabl et Discontinued 1 mg PO 2 to 3 times per day as needed for Anxiety February 20, 2018 12:00am June 26, 2022 10:14am amoxicillin 500 mg / clavulanate 125 mg oral tablet (20 sources) Penicillin-class Antibacterial Start: 01-31-2025 End: 02-07-2025 Amoxicillin-Pot Clavulanate (Augmentin) 500-125 mg tablet Discontinued 1 {tbl} PO Q8H 21 7 0 January 31, 2025 11:14am February 06, 2025 12:00am February 07, 2025 12:12am Start: 06-15-2024 End: 06-15-2024 Amoxicillin-Pot Clavulanate (Augmentin) 500-125 mg tablet Discontinued 1 {tbl} PO Q8H 21 0 June 15, 2024 1:00am June 15, 2024 12:58pm Start: 06-15-2024 End: 07-22-2024 Amoxicillin-Pot Clavulanate (Augmentin) 500-125 mg tablet Discontinued 1 {tbl} PO THREE TIMES A DAY 21 0 June 15, 2024 1:00am July 22, 2024 12:31pm Start: 09-08-2023 End: 10-23-2023 Amoxicillin-Pot Clavulanate 875-125 mg tablet Discontinued 1 {tbl} PO TWICE A DAY September 08, 2023 12:00am October 23, 2023 1:07pm Start: 05-24-2022 take 1 tablet by haleigh th twice daily Amoxicillin-Pot Clavulanate Active 1 TABLET [...] Discontinued 100 mg PO TWICE A DAY 60 0 December 06, 2021 12:00am January 17, 2022 2:27pm Osteoarthritis of both knees Bilateral primary osteoarthritis of knee Do not take in conjunction with other NSAIDs. Tylenol is okay. clobetasol propionate 0.5 mg/ml topical cream (20 sources) Corticosteroid Start: 11-13-2023 End: 10-14-2024 Clobetasol 0.05 % cream Discontinued 1 NMA TOPICAL TWICE A DAY as needed January 09, 2024 10:45am October 14, 2024 10:05am dexamethasone 4 mg oral tablet (20 sources) Corticosteroid Start: 08-22-2022 End: 03-13-2023 take 2 tablets by mouth twice daily Dexamethasone 4 mg tablet Discontinued 8 mg PO .COMPLEX 12 2 August 22, 2022 12:00am March 13, 2023 [...] 1.5 mg/ml oral solution (20 sources) Uncompetitive W-hmmbsj-K-aspartate Receptor Antagonist, Sigma-1 Agonist Start: 06-14-2022 End: 09-30-2022 take 1 mL by mouth every eight hours Pyrilamine-Dextromethorphan (Kinney Dm) 7.5-7.5 mg/5 mL Liquid Discontinued 20 mL PO Q8H June 14, 2022 1:00am September 30, 2022 3:36pm COUGH Start: 06-14-2022 End: 09-30-2022 take 1 mL by mouth every eight hours Pyrilamine-Dextromethorphan (Kinney Dm) 7.5-7.5 mg/5 mL Liquid Discontinued 20 [...] Discontinued 40 mg PO DAILY 90 90 3 June 27, 2023 12:28pm November 14, 2023 3:25pm gabapentin 100 mg oral capsule (2 sources) Anti-epileptic Agent Start: 10-10-2023 End: 10-10-2023 gabapentin (Neurontin) capsule 100 mg glutamine 500 mg oral capsule (20 sources) Amino Acid Start: 01-02-2023 End: 01-09-2024 [...] q6h, # 28 tab(s), 0 Refill(s), Pharmacy: [facility]/pharmacy #[id number], 175, cm, 05/03/20 11:09:00 EST, Height, [...] ACCESS 0 06/26/2022 Active Start: 06-26-2022 End: 12-07-2024 Lidocaine-Prilocaine 2.5-2.5 % cream Discontinued 1 NMA TOPICAL ONCE as needed for port access October 14, 2024 10:31am December 07, 2024 5:22pm Malignant neoplasm of breast Malignant neoplasm of unspecified site of unspecified female breast Start: 06-26-2022 End: 06-26-2023 Lidocaine-Prilocaine Active 1 APPLIC TOPICAL ONCE June 26, 2023 2:37pm methylPREDNISolone 4 mg oral tablet (20 sources) Corticosteroid Start: 02-20-2024 End: 03-18-2024 Methylprednisolone [...] / nitrofurantoin, monohydrate 75 mg oral capsule (20 sources) Nitrofuran Antibacterial Start: 10-26-2024 End: 10-31-2024 take 1 capsule by mouth every twelve hours at mealtime Nitrofurantoin Monohyd/M-Cryst (Macrobid) 100 mg capsule Discontinued 100 mg PO Q12H 10 5 0 October 26, 2024 12:00am October 30, 2024 [...] Q12H as needed for nausea and vomiting 30 2 August 22, 2022 10:03am June 20, 2023 12:12pm monobasic potassium phosphat e 0.0408 meq/ml oral solution (20 sources) Start: 09-19-2022 End: 09-24-2022 Potassium Phosphate, Monobas ic 500 mg tablet,soluble Discontinued 1000 mg PO DAILY 10 5 0 September 19, 2022 12:00am September 23, 2022 12:00am September 24, 2022 12:05am Start: 09-19-2022 End: 09-24-2022 take 1000 mg by mouth once daily Potassium Phosphate, Monobasic Discontinued 1000 MG PO DAILY 10 5 September 19, 2022 12:00am September 24, 2022 12:05am prochlorperazine 5 mg oral tablet (20 sources) Phenothiazine Start: 06-27-2022 End: 06-20-2023 take 1 tablet by mouth three times daily as needed for nausea and vomiting Prochlorperazine Maleate (Compazine) 5 mg tablet Discontinued 5 mg PO THREE TIMES A DAY as needed for nausea and vomiting 30 0 June 27, 2022 1:00am June 20, 2023 12:12pm simvastatin 20 mg oral tablet (20 sources) HMG-CoA Reductase Inhibitor Start: 10-22-2021 End: 01-04-2025 take 1 tablet by mouth at bedtime Simvastatin 20 mg tablet Discontinued 20 mg PO AT BEDTIME 90 January 04, 2025 10:22am January 04, 2025 11:21am 5 ml sodium chloride 9 mg/ml injection (20 sources) Start: 10-10-2023 End: 10-10-2023 sodium chloride 0.9 % bolus 500 mL Start: 10-10-2023 End: 10-10-2023 sodium chloride 0.9 % infusi on Start: 10-10-2023 End: 10-10-2023 sodium chloride 0.9% (NS) fl ush 10 mL Tirzepatide (Weight Loss) (18 sources) Start: 01-06-2025 End: 01-25-2025 Tirzepatide (Weight Loss) (Z epbound) 2.5 mg/0.5 mL pen injector Discontinued 2.5 mg SC EVERY WEEK January 06, 2025 12:00am January 25, 2025 12:13pm for 4 weeks Start: 01-06-2025 Tirzepatide (W eight Loss) (Zepbound) 2.5 mg/0.5 mL pen injector Active 2.5 mg SC EVERY WEEK January 06, 2025 12:00am for 4 weeks Start: 12-29-2024 End: 01-25-2025 Tirzepatide (Weight Loss) (Z epbound) 2.5 mg/0.5 mL pen injector Discontinued 2.5 mg SC EVERY WEEK 6 0 December 29, 2024 1:18pm January 25, 2025 12:13pm 3 months Start: 12-29-2024 Tirzepatide (W eight Loss) (Zepbound) 2.5 mg/0.5 mL pen injector Active 2.5 mg SC EVERY WEEK 6 0 December 29, 2024 1:18pm 3 months Start: 12-29-2024 End: 12-29-2024 Tirzepatide (Weight Loss) (Z epbound) 2.5 mg/0.5 mL pen injector Discontinued 2.5 mg SC EVERY WEEK 6 0 December 29, 2024 12:00am December 29, 2024 1:18pm 3 months Start: 12-29-2024 Tirzepatide (W eight Loss) (Zepbound) 2.5 mg/0.5 mL pen injector Active 2.5 mg SC EVERY WEEK 6 0 December 29, 2024 12:00am 3 months Problems Active Problems Problem Classification Problem Date Documented Date Episodic/Chronic Administrative/social admission (20 sources) First encounter by subject; Translations: [Persons encountering health services in other specified circumstances] 01-10-2024 Episodic Allergic reactions (19 sources) Weal; Translations: [Urticaria, unspecified] 11-04-2024 Episodic Anxiety disorders (9 sources) Anxiety about body function or health; Translations: [Other specified anxiety disorders] 06-26-2022 Chronic Cancer of breast (20 sources) Malignant tumor of breast ; Translations: [Malignant neoplasm of unspecified site of unspecified female breast] Onset: 06-06-2022 Chronic Comment on above: Invasive Ductal Canc er L breast, ER 95% +, FL 10% +, Her2 3+, initially started with [...] Canc er L breast, ER 95% +, FL 10% +, Her2 3+, initially started with [...] Canc er L breast, ER 95% +, FL 10% +, Her2 3+, initially started with [...] Canc er L breast, ER 95% +, FL 10% +, Her2 3+, initially started with [...] Counts and chemistry reviewed, ok for therapy. Invasive Ductal Canc er L breast, ER 95% +, FL 10% +, Her2 3+, initially started with [...] disease.Echo on 05/19/2024 shows EF 60%.Comes for C43. PET/CT 12/07/2024 reviewed, no hypermetabolic activity.Echo 12/02/2024 EF 60% Invasive Ductal Canc er L breast, ER 95% +, FL 10% +, Her2 3+, initially started with [...] of disease.Echo on 05/19/2024 shows EF 60%. PET/CT 12/07/2024 reviewed, no hypermetabolic activity.Echo 12/02/2024 EF 60%Comes for C44.Has pruritus. Otherwise OK. Invasive Ductal Canc er L breast, ER 95% +, FL 10% +, Her2 3+, initially started with [...] of disease.Echo on 05/19/2024 shows EF 60%. PET/CT 12/07/2024 reviewed, no hypermetabolic activity.Echo 12/02/2024 EF 60% Invasive Ductal Canc er L breast, ER 95% +, FL 10% +, Her2 3+, initially started with [...] of disease.Echo on 05/19/2024 shows EF 60%. PET/CT 12/07/2024 reviewed, no hypermetabolic activity.Comes for C47.Echocardiogram 2025 showed EF 55%Counts and chemistry reviewed. Deficiency and other anemia (18 sources) Anemia; Translations: [Anemia, unspecified] 04-29-2024 Episodic Comment on above: Postoperative after knee replacement in March 2024 Diseases of mouth; excluding dental (20 sources) Inflammatory disease of mucous membrane; Translations: [Oral mucositis (ulcerative), unspecified] 08-22-2022 Episodic Disorders of lipid metabolism (18 sources) Hyperlipidemia; Translations: [Hyperlipidemia, unspecified] Onset: 03-24-2025 04-19-2021 Chronic Disorders of teeth and jaw (16 sources) Toothache; Translations: [Other specified disorders of teeth and supporting structures] 12-04-2023 Episodic E Codes: Adverse effects of medical drugs (20 sources) Adverse reaction to drug; Translations: [Adverse effect of unspecified topical agent, initial encounter] 08-22-2022 Episodic Essential hypertension (20 sources) Hypertensive disorder; Translations: [Essential (primary) hypertension] 05-31-2022 Chronic Headache; including migraine (2 sources) Headache; including migraine; Translations: [Headache, unspecified] Onset: 03-24-2025 Maintenance chemotherapy; radiotherapy (20 sources) H/O: malignant neoplasm; Translations: [Encounter for antineoplastic immunotherapy] Onset: 02-17-2025 06-27-2022 Chronic Comment on above: EF, counts and chemi stry reviewed, OK for therapy. Counts and chemistry are ok for therapy. Echo on 12/02/2024 sh owed EF 60%. Echo on 2025 sh owed EF 55%. Menopausal disorders (7 sources) Postmenopausal bleeding; Translations: [Postmenopausal bleeding] Onset: 08-12-2023 05-13-2023 Chronic Miscellaneous mental health disorders (18 sources) Anxiety about body function or health; Translations: [Other symptoms and signs involving emotional state] 06-26-2022 Episodic Mood disorders (1 source) Depressive disorder 05-22-2022 Chronic Nonmalignant breast conditions (20 sources) Sebaceous cyst of skin of breast; Translations: [Other benign mammary dysplasias of unspecified breast] Episodic Nonspecific chest pain (20 sources) Left sided chest pain; Translations: [Chest pain, unspecified] 05-31-2022 Episodic Osteoarthritis (20 sources) Bilateral osteoarthritis of knees; Translations: [Bilateral primary osteoarthritis of knee] Chronic Other aftercare (4 sources) Drug therapy finding; Translations: [Encounter for therapeutic drug level monitoring] 01-02-2023 Episodic Other aftercare (18 sources) Encounter for therapeutic drug level monitoring; Translations: [Encounter for therapeutic drug monitoring] Onset: 03-20-2025 01-02-2023 Episodic Other aftercare (2 sources) Prevention status; Translations: [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 Other bone disease and musculoskeletal deformities (20 sources) Segmental and somatic dysfunction; Translations: [Segmental and somatic dysfunction of cervical region] 02-27-2018 Episodic Other bone disease and musculoskeletal deformities (20 sources) Disorder of skull; Translations: [Disorder of bone, unspecified] 06-26-2022 Episodic Other bone disease and musculoskeletal deformities (3 sources) Disorder of bone, unspecified; Translations: [Disorder of bone and cartilage, unspecified] Onset: 09-24-2022 Episodic Other circulatory disease (20 sources) Device in situ; Translations: [Presence of other vascular implants and grafts] 08-08-2022 Chronic Comment on above: 06/2022 Other circulatory disease (18 sources) Bleeding; Translations: [Hemorrhage, not elsewhere classified] 04-24-2023 Episodic Other circulatory disease (2 sources) Hemorrhage, not elsewhere classified; Translations: [Hemorrhage, unspecified] 04-24-2023 Episodic Other connective tissue disease (19 sources) Iliotibial band friction syndrome; Translations: [Iliotibial band syndrome, right leg] 07-31-2021 Episodic Other connective tissue disease (19 sources) 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; Translations: [Iliotibial band syndrome, right leg] 07-31-2021 Episodic Other connective tissue disease (15 sources) Swelling of upper limb; Translations: [Other specified soft tissue disorders] 11-13-2023 Episodic Other connective tissue disease (1 source) Swelling of left upper limb; Translations: [Other specified soft tissue disorders] 11-13-2023 Episodic Other female genital disorders (4 sources) Polyp of corpus uteri; Translations: [Polyp of corpus uteri] Onset: 08-12-2023 08-12-2023 Episodic Other female genital disorders (2 sources) Polyp of corpus uteri; Translations: [Polyp of corpus uteri] 10-10-2023 Episodic Other inflammatory condition of skin (14 sources) Pruritus, unspecified; Translations: [Pruritus] Onset: 03-24-2025 01-06-2025 Episodic Comment on above: May be due Monoclona l antibody therapy Other non-traumatic joint disorders (5 sources) Pain in right knee; Translations: [Pain in joint, lower leg] Episodic Other nutritional; endocrine; and metabolic disorders (1 source) Body mass index 30+ - obesity 06-07-2022 Chronic Other nutritional; endocrine; and metabolic disorders (20 sources) Obesity; Translations: [Obesity, unspecified] 06-07-2022 Chronic Other nutritional; endocrine; and metabolic disorders (20 sources) Hypercalcemia; Translations: [Hypercalcemia] 06-27-2022 Chronic Comment on above: May be related to Rodrigo ne metastases. Has normalized today. Other nutritional; endocrine; and metabolic disorders (14 sources) Hypercalcemia; Translations: [Hypercalcemia] Onset: 02-02-2025 06-27-2022 Chronic Other nutritional; endocrine; and metabolic disorders (1 source) Obesity, unspecified; Translations: [Obesity, unspecified] Onset: 03-24-2025 Chronic Other nutritional; endocrine; and metabolic disorders (1 source) Body mass index (BMI) 34.0-34.9, adult; Translations: [Body mass index [BMI] 34.0-34.9, adult] Onset: 03-24-2025 Chronic Other screening for suspected conditions (not mental disorders or infectious disease) (20 sources) Mammography abnormal; Translations: [Other abnormal and inconclusive findings on diagnostic imaging of breast] Onset: 08-05-2024 Episodic Comment on above: hypermetabolic uptak e right axillaUltrasound on 07/22/2024 showed unremarkable lymph nodes. Other skin disorders (2 sources) Cystic acne 01-06-2020 Episodic Other skin disorders (20 sources) Neck swelling; Translations: [Localized swelling, mass and lump, neck] 08-01-2022 Episodic Other skin disorders (4 sources) Localized swelling, mass and lump, neck; Translations: [Swelling, mass, or lump in head and neck] 08-01-2022 Episodic Other skin disorders (20 sources) Erythematous rash; Translations: [Rash and other nonspecific skin eruption] 06-15-2024 Episodic Comment on above: Cellulitis vs malign susie Other upper respiratory infections (19 sources) Upper respiratory infection; Translations: [Acute upper respiratory infection, unspecified] Onset: 06-07-2022 06-07-2022 Episodic Pathological fracture (20 sources) Fracture of femoral condyle; Translations: [Pathological fracture, left femur, subsequent encounter for fracture with routine healing] 11-09-2020 Episodic Residual codes; unclassified (20 sources) Edema of foot; Translations: [Localized edema] 10-31-2022 Episodic Residual codes; unclassified (6 sources) Localized edema; Translations: [Edema] 10-31-2022 Episodic Residual codes; unclassified (2 sources) Estrogen receptor positive status [ER+]; Translations: [Estrogen receptor positive status [ER+]] Onset: 03-24-2025 Episodic Spondylosis; intervertebral disc disorders; other back problems (4 sources) Low back pain; Translations: [Low back pain] 02-02-2025 Episodic Unclassified (6 sources) Patient encounter status 01-06-2020 Unclassified (1 source) Never used tobacco 06-07-2022 Unclassified (8 sources) Malignant neoplasm of overlapping sites of left female breast; Translations: [C50.812 - Malignant neoplasm of overlapping sites of left female breast] Unclassified (1 source) 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; Translations: [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] Onset: 01-27-2025 Past or Other Problems Problem Classification Problem Date Documented Da te Episodic/Chronic Cancer of breast (3 sources) History of malignant neoplasm of breast; Translations: [Personal history of malignant neoplasm of breast] Onset: 05-13-2023 05-13-2023 Episodic Deficiency and other anemia (1 source) Anemia, unspecified; Translations: [Anemia, unspecified] Onset: 05-20-2024 Episodic Genitourinary symptoms and ill-defined conditions (1 source) Urgency of urination; Translations: [Urgency of urination] Onset: 10-28-2024 Episodic Neoplasms of unspecified nature or uncertain behavior (20 sources) Neoplasm of axillary lymph nodes; Translations: [Neoplasm of unspecified behavior of other specified sites] Onset: 07-24-2024 07-01-2024 Episodic Other acquired deformities (1 source) Varus deformity, not elsewhere classified, left knee; Translations: [Varus deformity, not elsewhere classified, left knee] Onset: 08-12-2024 Episodic Other aftercare (1 source) Other fpc (current) drug therapy; Translations: [Other fpc (current) drug therapy] Onset: 05-20-2024 Episodic Other non-traumatic joint disorders (20 sources) Pain in left knee; Translations: [Left knee pain] Onset: 09-20-2024 Episodic Other skin disorders (1 source) Rash and other nonspecific skin eruption; Translations: [Rash and other nonspecific skin eruption] Onset: 11-08-2024 Episodic Results Test Name Value Interpretation Reference Range Facility Oncology Visit Reporton 03-09 Oncology Visit Report Normal [facility] Internal Medicine Office Vis iton 03-23-2025 Internal Medicine Office Visit Normal [facility] CA 15-3on 03-11-2025 CA 15-3 85.6 U/mL Abnormal 0.0-25.0 [facility] Comment on above: Result Comment: [employer] Electrochemiluminescence Immunoassay(ECLIA)Values obtained with different assay methods or kits cannotbe used interchangeably. Results cannot be interpreted asabsolute evidence of the presence or absence of malignantdisease.Performed at: [facility] [id number] Director: Ervin Hitchcock PhD, Phone: [phone] Performed By: #### L 3100.5030, L3100.2300, L500.4050, L100.0100, L3100.5040 ####[facility] [address] [place], [place], [id number] CA 27.29on 03-11-2025 CA 27.29 110.5 U/mL Abnormal 0.0-38.6 [facility] Comment on above: Result Comment: [employer] Immunochemiluminometric Methodology (ICMA)Values obtained with different assay methods or kits cannotbe used interchangeably. Results cannot be interpreted asabsolute evidence of the presence or absence of malignantdisease. Performed By: #### L 3100.5030, L3100.2300, L500.4050, L100.0100, L3100.5040 ####[facility] [address] [place], [place], [address] Carcinoembryonic Antigenon 1 0 CEA 1.5 ng/mL Normal 0.0-4.7 [facility] Comment on above: Result Comment: Nons mokers <3.9 Smokers <5.6[employer] Electrochemiluminescence Immunoassay(ECLIA)Values obtained with different assay methods or kitscannot be used interchangeably. Results cannot beinterpreted as absolute evidence of the presence orabsence of malignant disease. Performed By: #### L 3100.5030, L3100.2300, L500.4050, L100.0100, L3100.5040 ####[facility] [address] [place], [place], [id number] Absolute lymphocyte countOrd ered By: Genna Zuniga on 03-10-2025 Lymphocytes Auto (Unsp spec) [#/Vol] 2.67 10*3/uL 0.83-4.51 [facility] Absolute neutrophil countOrd ered By: Genna Zuniga on 03-10-2025 Neutrophils (Bld) [#/Vol] 6.2 10*3/uL 2.0-7.7 [facility] Anion gap in Serum or Plasma Ordered By: Genna Zuniga on 03-10-2025 Anion gap [Moles/Vol] 13 mmol/L 5-15 [facility] Automated lymphocyte count a s percentage of total leukocytesOrdered By: Genna Zuniga on 03-10-2025 Lymphocytes/100 WBC Auto (Unsp spec) 28.2 % 19-41 [facility] BUN/creatinine ratioOrdered By: Genna Zuniga on 03-10-2025 Urea nitrogen/Creatinine [Mass ratio] 19.0 mg/mg 10-20 [facility] Basophil percentageOrdered B y: Genna Zuniga on 03-10-2025 Basophils/100 WBC (Bld) 0.2 % 0-1 [facility] Bilirubin, totalOrdered By: Genna Zuniga on 03-10-2025 Bilirubin [Mass/Vol] 0.29 mg/dL 0.00-1.30 [facility] Blood manual differential co mment interpretation (narrative result)Ordered By: Genna Zuniga on 03-10-2025 Manual differential comment Rick (Bld) [Interp] SCANNED [facility] CBC W/Diff, Automatedon 10-0 PLT EST ADEQUATE Normal ADEQ [facility] Comment on above: Performed By: #### L 3100.5030, L3100.2300, L500.4050, L100.0100, L3100.5040 ####[facility] [address] [place], [address] SMEAR COMMENT SCANNED Normal [facility] Comment on above: Performed By: #### L 3100.5030, L3100.2300, L500.4050, L100.0100, L3100.5040 ####[facility] [address], [address] Carbon dioxide, total [Moles /volume] in Central venous bloodOrdered By: Genna Zuniga on 03-10-2025 CO2 [Moles/Vol] 22.7 mmol/L 21.0-32.0 [facility] Chloride assayOrdered By: Erwin Zuniga on 03-10-2025 Chloride [Moles/Vol] 104 mmol/L 98-108 [facility] Comprehensive Metabolic Prof ilon 03-10-2025 Albumin [Mass/Vol] 4.3 g/dL Normal 3.5-5.0 [facility] Comment on above: Performed By: #### L 3100.5030, L3100.2300, L500.4050, L100.0100, L3100.5040 ####[facility] [address] [place], [address] Albumin/Globulin [Mass ratio] 1.6 {ratio} Normal 0.9-2.4 [facility] Comment on above: Performed By: #### L 3100.5030, L3100.2300, L500.4050, L100.0100, L3100.5040 ####[facility] [address] [place], [address] ALK PHOS 62 U/L Normal 35-104 [facility] Comment on above: Performed By: #### L 3100.5030, L3100.2300, L500.4050, L100.0100, L3100.5040 ####[facility] [address] [place], [address] ALT [Catalytic activity/Vol] 30 U/L Normal <=34 [facility] Comment on above: Performed By: #### L 3100.5030, L3100.2300, L500.4050, L100.0100, L3100.5040 ####[facility] [address] [place], [address] AST [Catalytic activity/Vol] 35 U/L High <=31 [facility] Comment on above: Performed By: #### L 3100.5030, L3100.2300, L500.4050, L100.0100, L3100.5040 ####[facility] [address] [place], [address] Bilirubin [Mass/Vol] 0.29 mg/dL Normal 0.00-1.30 [facility] Comment on above: Performed By: #### L 3100.5030, L3100.2300, L500.4050, L100.0100, L3100.5040 ####[facility] [address] [place], [address] BUN/CRE 19.0 RATIO Normal 10-20 [facility] Comment on above: Performed By: #### L 3100.5030, L3100.2300, L500.4050, L100.0100, L3100.5040 ####[facility] [address] [place], [address] Calcium [Mass/Vol] 10.4 mg/dL Normal 7.6-11.0 [facility] Comment on above: Performed By: #### L 3100.5030, L3100.2300, L500.4050, L100.0100, L3100.5040 ####[facility] [address] [place], [address] Chloride [Moles/Vol] 104 mmol/L Normal 98-108 [facility] Comment on above: Performed By: #### L 3100.5030, L3100.2300, L500.4050, L100.0100, L3100.5040 ####[facility] [address] [place], [address] CO2 [Moles/Vol] 22.7 mmol/L Normal 21.0-32.0 [facility] Comment on above: Performed By: #### L 3100.5030, L3100.2300, L500.4050, L100.0100, L3100.5040 ####[facility] [address] [place], [address] Creatinine [Mass/Vol] 0.82 mg/dL Normal 0.70-1.20 [facility] Comment on above: Performed By: #### L 3100.5030, L3100.2300, L500.4050, L100.0100, L3100.5040 ####[facility] [address] [place], [address] ECRCL 96.39 ml/min Normal 50-250 [facility] Comment on above: Performed By: #### L 3100.5030, L3100.2300, L500.4050, L100.0100, L3100.5040 ####[facility] [address] [place], [address] GAP 13 Normal 5-15 [facility] Comment on above: Performed By: #### L 3100.5030, L3100.2300, L500.4050, L100.0100, L3100.5040 ####[facility] [address] [place], [address] GFR/1.73 sq M.predicted among non-blacks MDRD (S/P/Bld) [Vol rate/Area] 84 mL/min/{1.73_m2} Normal >60 [facility] Comment on above: Result Comment: mL/m in/1.73m2 CKD-EPI Creatinine Equation (2020) Performed By: #### L 3100.5030, L3100.2300, L500.4050, L100.0100, L3100.5040 ####[facility] [address] [place], [address] Globulin (S) [Mass/Vol] 2.7 g/dL Normal 2.2-4.2 [facility] Comment on above: Performed By: #### L 3100.5030, L3100.2300, L500.4050, L100.0100, L3100.5040 ####[facility] [address] [place], [address] Glucose [Mass/Vol] 92 mg/dL Normal 70-99 [facility] Comment on above: Performed By: #### L 3100.5030, L3100.2300, L500.4050, L100.0100, L3100.5040 ####[facility] [address] [place], [address] Potassium [Moles/Vol] 4.3 mmol/L Normal 3.3-5.1 [facility] Comment on above: Performed By: #### L 3100.5030, L3100.2300, L500.4050, L100.0100, L3100.5040 ####[facility] [address] [place], [address] Sodium [Moles/Vol] 140 mmol/L Normal 133-145 [facility] Comment on above: Performed By: #### L 3100.5030, L3100.2300, L500.4050, L100.0100, L3100.5040 ####[facility] [address] [place], [address] T PROT 7.0 g/dL Normal 5.9-8.4 [facility] Comment on above: Performed By: #### L 3100.5030, L3100.2300, L500.4050, L100.0100, L3100.5040 ####[facility] [address] [place], [address] Urea nitrogen [Mass/Vol] 16 mg/dL Normal 4-19 [facility] Comment on above: Performed By: #### L 3100.5030, L3100.2300, L500.4050, L100.0100, L3100.5040 ####[facility] [address] [place], [address] Eosinophil percentageOrdered By: Genna Zuniga on 03-10-2025 Eosinophils/100 WBC (Bld) 0.8 % 0-5 [facility] Erythrocyte distribution wid th ratioOrdered By: Genna Zuniga on 03-10-2025 Erythrocyte distribution width (RBC) [Ratio] 13.7 % 11.6-14.6 [facility] Erythrocyte distribution wid th standard deviationOrdered By: Genna Zuniga on 03-10-2025 Erythrocyte distribution width (RBC) [Ratio] 46.5 fl High 35.1-43.9 [facility] Glomerular filtration rate ( GFR) estimation/1.73 sq m using serum, plasma, or whole bOrdered By: Genna Zuniga on 03-10-2025 GFR/1.73 sq M.predicted among non-blacks MDRD (S/P/Bld) [Vol rate/Area] 84 mL/min/{1.73_m2} >60 [facility] Comment on above: mL/min/1.73m2 CKD-EP I Creatinine Equation (2020) Hematocrit Auto (Bld) [Volum e fraction]Ordered By: Genna Zuniga on 03-10-2025 Hematocrit (Bld) [Volume fraction] 41.5 % 37-47 [facility] Hemoglobin measurementOrdere d By: Genna Zuniga on 03-10-2025 Hemoglobin (Bld) [Mass/Vol] 13.7 g/dL 12.0-15.0 [facility] Immature granulocytes/100 WB C Auto (Bld)Ordered By: Genna Zuniga on 03-10-2025 Immature granulocytes/100 WBC (Bld) 0.300 % 0.0-0.9 [facility] Comment on above: IG% - Immature Granu locytes (promyelocytes, myelocytes and metamyelocytes) > 1% indicates that a LEFT SHIFT is Present. Laboratory - Chemistry and C hemistry - challengeOrdered By: Genna Zuniga on 03-10-2025 AST [Catalytic activity/Vol] 35 U/L High <32 [facility] MCV (mean corpuscular volume ) determinationOrdered By: Genna Zuniga on 03-10-2025 MCV (RBC) [Entitic vol] 92.8 fL 81-99 [facility] Mean corpuscular hemoglobin (MCH) determinationOrdered By: Genna Zuniga on 03-10-2025 MCH (RBC) [Entitic mass] 30.6 pg 27.0-32.0 [facility] Mean corpuscular hemoglobin concentration (MCHC) determinationOrdered By: Genna Zuniga on 03-10-2025 MCHC (RBC) [Mass/Vol] 33.0 g/dL 32-36 [facility] Monocyte percentageOrdered B y: Genna Zuniga on 03-10-2025 Monocytes/100 WBC (Bld) 5.6 % 0-10 [facility] NATERAon 03-10-2025 NATURA SEE SCANNED REPORT Normal [facility] Comment on above: Performed By: #### L 900.0098 ####[facility] [address] [place], [address] Neutrophil percentageOrdered By: Genna Zuniga on 03-10-2025 Neutrophils/100 WBC (Bld) 64.9 % 47-70 [facility] Nucleated red blood cell per centageOrdered By: Genna Zuniga on 03-10-2025 Nucleated RBC/100 WBC (Bld) [Ratio] 0 % 0-5 [facility] Oncology Visit Reporton 10-0 2-2025 Oncology Visit Report Normal [facility] Platelet countOrdered By: Erwin Zuniga on 03-10-2025 Platelet count See comment 150-450 [facility] Comment on above: Please note: For thi s sample, a platelet estimate is provided rather than a platelet count due to platelet clumping. Other parameters associated with this sample are not affected by platelet clumping. If a more accurate platelet count is required, a redraw of the patient will be necessary. Platelet estimateOrdered By: Genna Zuniga on 03-10-2025 Platelets LM Ql (Bld) ADEQUATE ADEQ [facility] Potassium measurement (mass/ volume)Ordered By: Genna Zuniga on 03-10-2025 Potassium (Unsp spec) [Mass/Vol] 4.3 mmol/L 3.3-5.1 [facility] RBC Auto (Bld) [#/Vol]Ordere d By: Genna Zuniga on 03-10-2025 RBC (Bld) [#/Vol] 4.47 10*6/uL 4.2-5.4 [facility] Serum creatinine measurement (mass/volume)Ordered By: Genna Zuniga on 03-10-2025 Creatinine [Mass/Vol] 0.82 mg/dL 0.70-1.20 [facility] Serum globulin measurementOr dered By: Genna Zuniga on 03-10-2025 Globulin (S) [Mass/Vol] 2.7 g/dL 2.2-4.2 [facility] Serum glucose measurement (m ass/volume)Ordered By: Genna Zuniga on 03-10-2025 Glucose [Mass/Vol] 92 mg/dL 70-99 [facility] Serum or plasma alanine alonzo otransferase (ALT) measurementOrdered By: Genna Zuniga on 03-10-2025 ALT [Catalytic activity/Vol] 30 U/L <35 [facility] Serum or plasma albumin paul urement (mass/volume)Ordered By: Genna Zuniga on 03-10-2025 Albumin [Mass/Vol] 4.3 g/dL 3.5-5.0 [facility] Serum or plasma albumin/glob ulin mass ratioOrdered By: Genna Zuniga on 03-10-2025 Albumin/Globulin [Mass ratio] 1.6 {ratio} 0.9-2.4 [facility] Serum or plasma alkaline ubaldo sphatase measurementOrdered By: Genna Zuniga on 03-10-2025 ALP [Catalytic activity/Vol] 62 U/L 35-104 [facility] Serum or plasma calcium paul urement (mass/volume)Ordered By: Genna Zuniga on 03-10-2025 Calcium [Mass/Vol] 10.4 mg/dL 7.6-11.0 [facility] Serum or plasma urea nitroge n measurement (mass/volume)Ordered By: Genna Zuniga on 03-10-2025 Urea nitrogen [Mass/Vol] 16 mg/dL 4-19 [facility] Sodium levelOrdered By: Genna Zuniga on 03-10-2025 Sodium [Moles/Vol] 140 mmol/L 133-145 [facility] Total proteinOrdered By: David Zuniga on 03-10-2025 Protein [Mass/Vol] 7.0 g/dL 5.9-8.4 [facility] White blood cell (WBC) count Ordered By: Genna Zuniga on 03-10-2025 WBC (Bld) [#/Vol] 9.5 10*3/uL 4.4-11.0 [facility] ONC Echo Completeon 03-08-20 ONC Echo Complete Normal [facility] Oncology Visit Reporton 02-07 Oncology Visit Report Normal [facility] Internal Medicine Office Vis iton 02-02-2025 Internal Medicine Office Visit Normal [facility] CA 15-3on 01-28-2025 CA 15-3 63.8 U/mL Abnormal 0.0-25.0 [facility] Comment on above: Result Comment: [employer] Electrochemiluminescence Immunoassay(ECLIA)Values obtained with different assay methods or kits cannotbe used interchangeably. Results cannot be interpreted asabsolute evidence of the presence or absence of malignantdisease.Performed at: [facility] [employer] [id number] Director: Ervin Hitchcock PhD, Phone: [phone] Performed By: #### L 3100.2300, L3100.5030, L3100.5040 ####[facility] [address] [place], [address] CA 27.29on 01-28-2025 CA 27.29 91.8 U/mL Abnormal 0.0-38.6 [facility] Comment on above: Result Comment: [facility] [employer] Immunochemiluminometric Methodology (ICMA)Values obtained with different assay methods or kits cannotbe used interchangeably. Results cannot be interpreted asabsolute evidence of the presence or absence of malignantdisease. Performed By: #### L 3100.2300, L3100.5030, L3100.5040 ####[facility] [address] [place], [address] Carcinoembryonic Antigenon 0 01-28-2025 CEA 1.5 ng/mL Normal 0.0-4.7 [facility] Comment on above: Result Comment: Nons mokers <3.9 Smokers <5.6[facility] Electrochemiluminescence Immunoassay(ECLIA)Values obtained with different assay methods or kitscannot be used interchangeably. Results cannot beinterpreted as absolute evidence of the presence orabsence of malignant disease. Performed By: #### L 3100.2300, L3100.5030, L3100.5040 ####[facility] [address] [place], [address] Absolute lymphocyte countOrd ered By: Cristóbal Ford on 01-27-2025 Lymphocytes Auto (Unsp spec) [#/Vol] 1.97 10*3/uL 0.83-4.51 [facility] Absolute neutrophil countOrd ered By: Cristóbal Ford on 01-27-2025 Neutrophils (Bld) [#/Vol] 3.8 10*3/uL 2.0-7.7 [facility] Anion gap in Serum or Plasma Ordered By: Cristóbal Ford on 01-27-2025 Anion gap [Moles/Vol] 13 mmol/L 5-15 [facility] Automated lymphocyte count a s percentage of total leukocytesOrdered By: Cristóbal Ford on 01-27-2025 Lymphocytes/100 WBC Auto (Unsp spec) 31.1 % 19-41 [facility] BUN/creatinine ratioOrdered By: Cristóbal Ford on 01-27-2025 Urea nitrogen/Creatinine [Mass ratio] 20.8 mg/mg High 10-20 [facility] Basophil percentageOrdered B y: Cristóbal Ford on 01-27-2025 Basophils/100 WBC (Bld) 0.3 % 0-1 [facility] Bilirubin, totalOrdered By: Cristóbal Ford on 01-27-2025 Bilirubin [Mass/Vol] 0.30 mg/dL Normal 0.00-1.30 [facility] Comment on above: Performed By: #### L 500.4050, L100.0100 ####[facility] [address] [place], [place], [id number] CA 15-3Ordered By: Genna lim on 01-27-2025 CA 15-3 63.8 U/mL High 0.0-25.0 [facility] Comment on above: [employer] El ectrochemiluminescence Immunoassay(ECLIA)Values obtained with different assay methods or kits cannotbe used interchangeably. Results cannot be interpreted asabsolute evidence of the presence or absence of malignantdisease.Performed at: [facility] [place] [id number] Director: Ervin Hitchcock PhD, Phone: [phone] CA .29Ordered By: Genna fuentes on 01-27-2025 CA 27.29 91.8 U/mL High 0.0-38.6 [facility] Comment on above: [employer] Immu nochemiluminometric Methodology (ICMA)Values obtained with different assay methods or kits cannotbe used interchangeably. Results cannot be interpreted asabsolute evidence of the presence or absence of malignantdisease. CBC W/Diff, Automatedon 01-08 PLT EST SLT DEC Normal ADEQ [facility] Comment on above: Performed By: #### L 500.4050, L100.0100 ####[facility] [address] [place], [place], [id number] Carbon dioxide, total [Moles /volume] in Central venous bloodOrdered By: Cristóbal Ford on 01-27-2025 CO2 [Moles/Vol] 24.0 mmol/L Normal 21.0-32.0 [facility] Comment on above: Performed By: #### L 500.4050, L100.0100 ####[facility] [address] [place], [address] Chloride assayOrdered By: Tami Ford on 01-27-2025 Chloride [Moles/Vol] 103 mmol/L Normal 98-108 [facility] Comment on above: Performed By: #### L 500.4050, L100.0100 ####[facility] [address] [place], [address] Comprehensive Metabolic Prof ilon 01-27-2025 ALK PHOS 62 U/L Normal 35-104 [facility] Comment on above: Performed By: #### L 500.4050, L100.0100 ####[facility] [address] [place], [address] BUN/CRE 20.8 RATIO High 10-20 [facility] Comment on above: Performed By: #### L 500.4050, L100.0100 ####[facility] [address] [place], [address] ECRCL 93.08 ml/min Normal 50-250 [facility] Comment on above: Performed By: #### L 500.4050, L100.0100 ####[facility] [address] [place], [address] GAP 13 Normal 5-15 [facility] Comment on above: Performed By: #### L 500.4050, L100.0100 ####[facility] [address] [place], [address] Potassium [Moles/Vol] 4.1 mmol/L Normal 3.3-5.1 [facility] Comment on above: Performed By: #### L 500.4050, L100.0100 ####[facility] [address] [place], [address] T PROT 6.9 g/dL Normal 5.9-8.4 [facility] Comment on above: Performed By: #### L 500.4050, L100.0100 ####[facility] [address] [place], [address] Comprehensive Metabolic Prof ilOrdered By: Cristóbal Ford on 01-27-2025 AST [Catalytic activity/Vol] 39 U/L High <=31 [facility] Comment on above: Performed By: #### L 500.4050, L100.0100 ####[facility] [address] [place], [address] Eosinophil percentageOrdered By: Cristóbal Ford on 01-27-2025 Eosinophils/100 WBC (Bld) 1.1 % 0-5 [facility] Erythrocyte distribution wid th ratioOrdered By: [facility] on 01-27-2025 Erythrocyte distribution width (RBC) [Ratio] 13.7 % 11.6-14.6 [facility] Erythrocyte distribution wid th standard deviationOrdered By: [facility] on 01-27-2025 Erythrocyte distribution width (RBC) [Ratio] 47.5 fl High 35.1-43.9 [facility] Glomerular filtration rate ( GFR) estimation/1.73 sq m using serum, plasma, or whole bOrdered By: Cristóbal Ford on 01-27-2025 GFR/1.73 sq M.predicted among non-blacks MDRD (S/P/Bld) [Vol rate/Area] 80 mL/min/{1.73_m2} Normal >60 [facility] Comment on above: mL/min/1.73m2 CKD-EP I Creatinine Equation (2020) Result Comment: mL/m in/1.73m2 CKD-EPI Creatinine Equation (2020) Performed By: #### L 500.4050, L100.0100 ####[facility] [address] [place], [address] Hematocrit Auto (Bld) [Volum e fraction]Ordered By: Cristóbal Ford on 01-27-2025 Hematocrit (Bld) [Volume fraction] 40.7 % 37-47 [facility] Hemoglobin measurementOrdere d By: Cristóbal Ford on 01-27-2025 Hemoglobin (Bld) [Mass/Vol] 13.3 g/dL 12.0-15.0 [facility] Immature granulocytes/100 WB C Auto (Bld)Ordered By: Cristóbal Ford on 01-27-2025 Immature granulocytes/100 WBC (Bld) 0.200 % 0.0-0.9 [facility] Comment on above: IG% - Immature Granu locytes (promyelocytes, myelocytes and metamyelocytes) > 1% indicates that a LEFT SHIFT is Present. MCV (mean corpuscular volume ) determinationOrdered By: Cristóbal Ford on 01-27-2025 MCV (RBC) [Entitic vol] 93.6 fL 81-99 [facility] Mean corpuscular hemoglobin (MCH) determinationOrdered By: Cristóbal Ford on 01-27-2025 MCH (RBC) [Entitic mass] 30.6 pg 27.0-32.0 [facility] Mean corpuscular hemoglobin concentration (MCHC) determinationOrdered By: Cristóbal Ford on 01-27-2025 MCHC (RBC) [Mass/Vol] 32.7 g/dL 32-36 [facility] Mean platelet volume determi nationOrdered By: Cristóbal Ford on 01-27-2025 Platelet mean volume (Bld) [Entitic vol] 10.2 fL 6.2-12.0 [facility] Monocyte percentageOrdered B y: Cristóbal Ford on 01-27-2025 Monocytes/100 WBC (Bld) 7.4 % 0-10 [facility] Neutrophil percentageOrdered By: Cristóbal Ford on 01-27-2025 Neutrophils/100 WBC (Bld) 59.9 % 47-70 [facility] Nucleated red blood cell per centageOrdered By: Cristóbal Ford on 01-27-2025 Nucleated RBC/100 WBC (Bld) [Ratio] 0 % 0-5 [facility] Oncology Visit Reporton 01-08 Oncology Visit Report Normal [facility] Platelet countOrdered By: Tami Ford on 01-27-2025 Platelet count TNP [facility] Comment on above: Test not performedPl ease note: For this sample, a platelet estimate is provided rather than a platelet count due to platelet clumping. Other parameters associated with this sample are not affected by platelet clumping. If a more accurate platelet count is required, a redraw of the patient will be necessary. Platelet estimateOrdered By: Cristóbal Ford on 01-27-2025 Platelets LM Ql (Bld) SLT DEC ADEQ [facility] Potassium measurement (mass/ volume)Ordered By: Cristóbal Ford on 01-27-2025 Potassium (Unsp spec) [Mass/Vol] 4.1 mmol/L 3.3-5.1 [facility] RBC Auto (Bld) [#/Vol]Ordere d By: Cristóbal Ford on 01-27-2025 RBC (Bld) [#/Vol] 4.35 10*6/uL 4.2-5.4 [facility] Serum creatinine measurement (mass/volume)Ordered By: Cristóbal Ford on 01-27-2025 Creatinine [Mass/Vol] 0.86 mg/dL Normal 0.70-1.20 [facility] Comment on above: Performed By: #### L 500.4050, L100.0100 ####[facility] [address] [place], [address] Serum globulin measurementOr dered By: Cristóbal Ford on 01-27-2025 Globulin (S) [Mass/Vol] 2.7 g/dL Normal 2.2-4.2 [facility] Comment on above: Performed By: #### L 500.4050, L100.0100 ####[facility] [address] [place], [address] Serum glucose measurement (m ass/volume)Ordered By: Cristóbal Ford on 01-27-2025 Glucose [Mass/Vol] 103 mg/dL High 70-99 [facility] Comment on above: Performed By: #### L 500.4050, L100.0100 ####[facility] [address] [place], [address] Serum or plasma alanine alonzo otransferase (ALT) measurementOrdered By: Cristóbal Ford on 01-27-2025 ALT [Catalytic activity/Vol] 39 U/L High <=34 [facility] Comment on above: Performed By: #### L 500.4050, L100.0100 ####[facility] [address] [place], [address] Serum or plasma albumin paul urement (mass/volume)Ordered By: Cristóbal Ford on 01-27-2025 Albumin [Mass/Vol] 4.2 g/dL Normal 3.5-5.0 [facility] Comment on above: Performed By: #### L 500.4050, L100.0100 ####[facility] [address] [place], [address] Serum or plasma albumin/glob ulin mass ratioOrdered By: Cristóbal Ford on 01-27-2025 Albumin/Globulin [Mass ratio] 1.5 {ratio} Normal 0.9-2.4 [facility] Comment on above: Performed By: #### L 500.4050, L100.0100 ####[facility] [address] [place], [address] Serum or plasma alkaline ubaldo sphatase measurementOrdered By: Cristóbal Ford on 01-27-2025 ALP [Catalytic activity/Vol] 62 U/L 35-104 [facility] Serum or plasma calcium paul urement (mass/volume)Ordered By: Cristóbal Ford on 01-27-2025 Calcium [Mass/Vol] 10.2 mg/dL Normal 7.6-11.0 [facility] Comment on above: Performed By: #### L 500.4050, L100.0100 ####[facility] [address] [place], [address] Serum or plasma carcinoembry onic antigen measurement (mass/volume)Ordered By: Genna Zuniga on 01-27-2025 Carcinoembryonic Ag [Mass/Vol] 1.5 ng/mL 0.0-4.7 [facility] Comment on above: Nonsmokers <3.9 Smok ers <5.6[employer] Electrochemiluminescence Immunoassay(ECLIA)Values obtained with different assay methods or kitscannot be used interchangeably. Results cannot beinterpreted as absolute evidence of the presence orabsence of malignant disease. Serum or plasma urea nitroge n measurement (mass/volume)Ordered By: Cristóbal Ford on 01-27-2025 Urea nitrogen [Mass/Vol] 18 mg/dL Normal 4-19 [facility] Comment on above: Performed By: #### L 500.4050, L100.0100 ####[facility] [address] [place], [address] Sodium levelOrdered By: Hudson Ford on 01-27-2025 Sodium [Moles/Vol] 140 mmol/L Normal 133-145 [facility] Comment on above: Performed By: #### L 500.4050, L100.0100 ####[facility] [address] [place], [address] Total proteinOrdered By: Jose G Ford on 01-27-2025 Protein [Mass/Vol] 6.9 g/dL 5.9-8.4 [facility] White blood cell (WBC) count Ordered By: Cristóbal Ford on 01-27-2025 WBC (Bld) [#/Vol] 6.3 10*3/uL 4.4-11.0 [facility] CA 15-3on 01-07-2025 CA 15-3 59.9 U/mL Abnormal 0.0-25.0 [facility] Comment on above: Result Comment: [employer] Electrochemiluminescence Immunoassay(ECLIA)Values obtained with different assay methods or kits cannotbe used interchangeably. Results cannot be interpreted asabsolute evidence of the presence or absence of malignantdisease.Performed at: [facility] [employer] [id number] Director: Ervin Hitchcock PhD, Phone: [phone] Performed By: #### L 3100.5000, L3100.5030, L100.0100, L3100.2300, L3100.5040, L504.2610, L500.4050 ####[facility] [address] [place], [address] CA 27.29on 01-07-2025 CA 27.29 91.6 U/mL Abnormal 0.0-38.6 [facility] Comment on above: Result Comment: [employer] Immunochemiluminometric Methodology (ICMA)Values obtained with different assay methods or kits cannotbe used interchangeably. Results cannot be interpreted asabsolute evidence of the presence or absence of malignantdisease. Performed By: #### L 3100.5000, L3100.5030, L100.0100, L3100.2300, L3100.5040, L504.2610, L500.4050 ####[facility] [address] [place], [address] Cancer Antigen 125on 025 CA 125 10.9 U/mL Normal 0.0-38.1 [facility] Comment on above: Result Comment: [employer] Electrochemiluminescence Immunoassay(ECLIA)Values obtained with different assay methods or kits cannotbe used interchangeably. Results cannot be interpreted asabsolute evidence of the presence or absence of malignantdisease. Performed By: #### L 3100.5000, L3100.5030, L100.0100, L3100.2300, L3100.5040, L504.2610, L500.4050 ####[facility] [address] [place], [address] Carcinoembryonic Antigenon 0 01-07-2025 CEA 1.5 ng/mL Normal 0.0-4.7 [facility] Comment on above: Result Comment: Nons mokers <3.9 Smokers <5.6[employer] Electrochemiluminescence Immunoassay(ECLIA)Values obtained with different assay methods or kitscannot be used interchangeably. Results cannot beinterpreted as absolute evidence of the presence orabsence of malignant disease. Performed By: #### L 3100.5000, L3100.5030, L100.0100, L3100.2300, L3100.5040, L504.2610, L500.4050 ####[facility] [address] [place], [address] Absolute lymphocyte countOrd ered By: Cristóbal Ford on 01-06-2025 Lymphocytes Auto (Unsp spec) [#/Vol] 2.55 10*3/uL 0.83-4.51 [facility] Absolute neutrophil countOrd ered By: Cristóbal Ford on 01-06-2025 Neutrophils (Bld) [#/Vol] 6.0 10*3/uL 2.0-7.7 [facility] Anion gap in Serum or Plasma Ordered By: Cristóbal Ford on 01-06-2025 Anion gap [Moles/Vol] 11 mmol/L 5-15 [facility] Automated lymphocyte count a s percentage of total leukocytesOrdered By: Cristóbal Ford on 01-06-2025 Lymphocytes/100 WBC Auto (Unsp spec) 27.4 % 19-41 [facility] BUN/creatinine ratioOrdered By: Cristóbal Ford on 01-06-2025 Urea nitrogen/Creatinine [Mass ratio] 23.4 mg/mg High 10-20 [facility] Basophil percentageOrdered B y: Cristóbal Ford on 01-06-2025 Basophils/100 WBC (Bld) 0.2 % 0-1 [facility] Bilirubin, totalOrdered By: Cristóbal Ford on 01-06-2025 Bilirubin [Mass/Vol] 0.23 mg/dL 0.00-1.30 [facility] CA 15-3Ordered By: Cristóbal smart on 01-06-2025 CA 15-3 59.9 U/mL High 0.0-25.0 [facility] Comment on above: [employer] El ectrochemiluminescence Immunoassay(ECLIA)Values obtained with different assay methods or kits cannotbe used interchangeably. Results cannot be interpreted asabsolute evidence of the presence or absence of malignantdisease.Performed at: [facility] [address] [id number] Director: Ervin Hitchcock PhD, Phone: [phone] CA 27.29Ordered By: Cristóbal bolivar on 01-06-2025 CA 27.29 91.6 U/mL High 0.0-38.6 [facility] Comment on above: [employer]ens Nuvolaaur Immu nochemiluminometric Methodology (ICMA)Values obtained with different assay methods or kits cannotbe used interchangeably. Results cannot be interpreted asabsolute evidence of the presence or absence of malignantdisease. CBC W/Diff, Automatedon 12-09 Absolute Lymph 2.55 X10 3/uL Normal 0.83-4.51 [facility] Comment on above: Performed By: #### L 3100.5000, L3100.5030, L100.0100, L3100.2300, L3100.5040, L504.2610, L500.4050 ####[facility] [address] [place], [address] Absolute Neut 6.0 X10 3/uL Normal 2.0-7.7 [facility] Comment on above: Performed By: #### L 3100.5000, L3100.5030, L100.0100, L3100.2300, L3100.5040, L504.2610, L500.4050 ####[facility] [address] [place], [address] Basophils/100 WBC (Bld) 0.2 % Normal 0-1 [facility] Comment on above: Performed By: #### L 3100.5000, L3100.5030, L100.0100, L3100.2300, L3100.5040, L504.2610, L500.4050 ####[facility] [address] [place], [address] Eosinophils/100 WBC (Bld) 1.0 % Normal 0-5 [facility] Comment on above: Performed By: #### L 3100.5000, L3100.5030, L100.0100, L3100.2300, L3100.5040, L504.2610, L500.4050 ####[facility] [address] [place], [address] Erythrocyte distribution width (RBC) [Ratio] 14.6 % Normal 11.6-14.6 [facility] Comment on above: Performed By: #### L 3100.5000, L3100.5030, L100.0100, L3100.2300, L3100.5040, L504.2610, L500.4050 ####[facility] [address] [place], [address] Hematocrit (Bld) [Volume fraction] 40.9 % Normal 37-47 [facility] Comment on above: Performed By: #### L 3100.5000, L3100.5030, L100.0100, L3100.2300, L3100.5040, L504.2610, L500.4050 ####[facility] [address] [place], [address] Hemoglobin (Bld) [Mass/Vol] 13.2 g/dL Normal 12.0-15.0 [facility] Comment on above: Performed By: #### L 3100.5000, L3100.5030, L100.0100, L3100.2300, L3100.5040, L504.2610, L500.4050 ####[facility] [address] [place], [address] IG% 0.400 Normal 0.0-0.9 [facility] Comment on above: Result Comment: IG% - Immature Granulocytes (promyelocytes, myelocytes andmetamyelocytes) > 1% indicates that a LEFT SHIFT is Present. Performed By: #### L 3100.5000, L3100.5030, L100.0100, L3100.2300, L3100.5040, L504.2610, L500.4050 ####[facility] [address] [place], [address] Lymphocytes/100 WBC (Bld) 27.4 % Normal 19-41 [facility] Comment on above: Performed By: #### L 3100.5000, L3100.5030, L100.0100, L3100.2300, L3100.5040, L504.2610, L500.4050 ####[facility] [address] [place], [address] MCH (RBC) [Entitic mass] 30.2 pg Normal 27.0-32.0 [facility] Comment on above: Performed By: #### L 3100.5000, L3100.5030, L100.0100, L3100.2300, L3100.5040, L504.2610, L500.4050 ####[facility] [address] [place], [address] MCHC (RBC) [Mass/Vol] 32.3 g/dL Normal 32-36 [facility] Comment on above: Performed By: #### L 3100.5000, L3100.5030, L100.0100, L3100.2300, L3100.5040, L504.2610, L500.4050 ####[facility] [address] [place], [address] MCV (RBC) [Entitic vol] 93.6 fL Normal 81-99 [facility] Comment on above: Performed By: #### L 3100.5000, L3100.5030, L100.0100, L3100.2300, L3100.5040, L504.2610, L500.4050 ####[facility] [address] [place], [address] Monocytes/100 WBC (Bld) 6.6 % Normal 0-10 [facility] Comment on above: Performed By: #### L 3100.5000, L3100.5030, L100.0100, L3100.2300, L3100.5040, L504.2610, L500.4050 ####[facility] [address] [place], [address] Neutrophils/100 WBC (Bld) 64.4 % Normal 47-70 [facility] Comment on above: Performed By: #### L 3100.5000, L3100.5030, L100.0100, L3100.2300, L3100.5040, L504.2610, L500.4050 ####[facility] [address] [place], [address] Nucleated RBC (Bld) [#/Vol] 0 10*3/uL Normal 0-5 [facility] Comment on above: Performed By: #### L 3100.5000, L3100.5030, L100.0100, L3100.2300, L3100.5040, L504.2610, L500.4050 ####[facility] [address] [place], [address] Platelet mean volume (Bld) [Entitic vol] 9.7 fL Normal 6.2-12.0 [facility] Comment on above: Performed By: #### L 3100.5000, L3100.5030, L100.0100, L3100.2300, L3100.5040, L504.2610, L500.4050 ####[facility] [address] [place], [address] Platelets (Bld) [#/Vol] 162 10*3/uL Normal 150-450 [facility] Comment on above: Performed By: #### L 3100.5000, L3100.5030, L100.0100, L3100.2300, L3100.5040, L504.2610, L500.4050 ####[facility] [address] [place], [address] RBC (Bld) [#/Vol] 4.37 10*6/uL Normal 4.2-5.4 [facility] Comment on above: Performed By: #### L 3100.5000, L3100.5030, L100.0100, L3100.2300, L3100.5040, L504.2610, L500.4050 ####[facility] [address] [place], [address] RDW SD 50.5 fl High 35.1-43.9 [facility] Comment on above: Performed By: #### L 3100.5000, L3100.5030, L100.0100, L3100.2300, L3100.5040, L504.2610, L500.4050 ####[facility] [address] [place], [address] WBC (Bld) [#/Vol] 9.3 10*3/uL Normal 4.4-11.0 [facility] Comment on above: Performed By: #### L 3100.5000, L3100.5030, L100.0100, L3100.2300, L3100.5040, L504.2610, L500.4050 ####[facility] [address] [place], [address] Cancer antigen 125 (CA-125) measurementOrdered By: Cristóbal Ford on 01-06-2025 Cancer antigen 125 (CA-125) measurement 10.9 U/mL 0.0-38.1 [facility] Comment on above: [employer] El ectrochemiluminescence Immunoassay(ECLIA)Values obtained with different assay methods or kits cannotbe used interchangeably. Results cannot be interpreted asabsolute evidence of the presence or absence of malignantdisease. Carbon dioxide, total [Moles /volume] in Central venous bloodOrdered By: Cristóbal Ford on 01-06-2025 CO2 [Moles/Vol] 24.9 mmol/L 21.0-32.0 [facility] Chloride assayOrdered By: Tami Ford on 01-06-2025 Chloride [Moles/Vol] 104 mmol/L 98-108 [facility] Comprehensive Metabolic Prof ilon 01-06-2025 Albumin [Mass/Vol] 4.3 g/dL Normal 3.5-5.0 [facility] Comment on above: Performed By: #### L 3100.5000, L3100.5030, L100.0100, L3100.2300, L3100.5040, L504.2610, L500.4050 ####[facility] [address] [place], [address] Albumin/Globulin [Mass ratio] 1.7 {ratio} Normal 0.9-2.4 [facility] Comment on above: Performed By: #### L 3100.5000, L3100.5030, L100.0100, L3100.2300, L3100.5040, L504.2610, L500.4050 ####[facility] [address] [place], [address] ALK PHOS 63 U/L Normal 35-104 [facility] Comment on above: Performed By: #### L 3100.5000, L3100.5030, L100.0100, L3100.2300, L3100.5040, L504.2610, L500.4050 ####[facility] [address] [place], [place], [id number] ALT [Catalytic activity/Vol] 44 U/L High <=34 [facility] Comment on above: Performed By: #### L 3100.5000, L3100.5030, L100.0100, L3100.2300, L3100.5040, L504.2610, L500.4050 ####[facility] [address] [place], [address] AST [Catalytic activity/Vol] 51 U/L High <=31 [facility] Comment on above: Result Comment: Hemo lysis present, Results??could be affected.?? Performed By: #### L 3100.5000, L3100.5030, L100.0100, L3100.2300, L3100.5040, L504.2610, L500.4050 ####[facility] [address] [place], [address] Bilirubin [Mass/Vol] 0.23 mg/dL Normal 0.00-1.30 [facility] Comment on above: Performed By: #### L 3100.5000, L3100.5030, L100.0100, L3100.2300, L3100.5040, L504.2610, L500.4050 ####[facility] [address] [place], [address] BUN/CRE 23.4 RATIO High 10-20 [facility] Comment on above: Performed By: #### L 3100.5000, L3100.5030, L100.0100, L3100.2300, L3100.5040, L504.2610, L500.4050 ####[facility] [address] [place], [address] Calcium [Mass/Vol] 10.7 mg/dL Normal 7.6-11.0 [facility] Comment on above: Performed By: #### L 3100.5000, L3100.5030, L100.0100, L3100.2300, L3100.5040, L504.2610, L500.4050 ####[facility] [address] [place], [address] Chloride [Moles/Vol] 104 mmol/L Normal 98-108 [facility] Comment on above: Performed By: #### L 3100.5000, L3100.5030, L100.0100, L3100.2300, L3100.5040, L504.2610, L500.4050 ####[facility] [address] [place], [address] CO2 [Moles/Vol] 24.9 mmol/L Normal 21.0-32.0 [facility] Comment on above: Performed By: #### L 3100.5000, L3100.5030, L100.0100, L3100.2300, L3100.5040, L504.2610, L500.4050 ####[facility] [address] [place], [address] Creatinine [Mass/Vol] 0.75 mg/dL Normal 0.70-1.20 [facility] Comment on above: Performed By: #### L 3100.5000, L3100.5030, L100.0100, L3100.2300, L3100.5040, L504.2610, L500.4050 ####[facility] [address] [place], [address] ECRCL 107.18 ml/min Normal 50-250 [facility] Comment on above: Performed By: #### L 3100.5000, L3100.5030, L100.0100, L3100.2300, L3100.5040, L504.2610, L500.4050 ####[facility] [address] [place], [address] GAP 11 Normal 5-15 [facility] Comment on above: Performed By: #### L 3100.5000, L3100.5030, L100.0100, L3100.2300, L3100.5040, L504.2610, L500.4050 ####[facility] [address] [place], [address] GFR/1.73 sq M.predicted among non-blacks MDRD (S/P/Bld) [Vol rate/Area] 94 mL/min/{1.73_m2} Normal >60 [facility] Comment on above: Result Comment: mL/m in/1.73m2 CKD-EPI Creatinine Equation (2020) Performed By: #### L 3100.5000, L3100.5030, L100.0100, L3100.2300, L3100.5040, L504.2610, L500.4050 ####[facility] [address] [place], [address] Globulin (S) [Mass/Vol] 2.6 g/dL Normal 2.2-4.2 [facility] Comment on above: Performed By: #### L 3100.5000, L3100.5030, L100.0100, L3100.2300, L3100.5040, L504.2610, L500.4050 ####[facility] [address] [place], [address] Glucose [Mass/Vol] 95 mg/dL Normal 70-99 [facility] Comment on above: Performed By: #### L 3100.5000, L3100.5030, L100.0100, L3100.2300, L3100.5040, L504.2610, L500.4050 ####[facility] [address] [place], [address] Potassium [Moles/Vol] 4.2 mmol/L Normal 3.3-5.1 [facility] Comment on above: Result Comment: Hemo lysis present, Results??could be affected.?? Performed By: #### L 3100.5000, L3100.5030, L100.0100, L3100.2300, L3100.5040, L504.2610, L500.4050 ####[facility] [address] [place], [address] Sodium [Moles/Vol] 140 mmol/L Normal 133-145 [facility] Comment on above: Performed By: #### L 3100.5000, L3100.5030, L100.0100, L3100.2300, L3100.5040, L504.2610, L500.4050 ####[facility] [address] [place], [address] T PROT 6.9 g/dL Normal 5.9-8.4 [facility] Comment on above: Performed By: #### L 3100.5000, L3100.5030, L100.0100, L3100.2300, L3100.5040, L504.2610, L500.4050 ####[facility] [address] [place], [address] Urea nitrogen [Mass/Vol] 18 mg/dL Normal 4-19 [facility] Comment on above: Performed By: #### L 3100.5000, L3100.5030, L100.0100, L3100.2300, L3100.5040, L504.2610, L500.4050 ####[facility] [address] [place], [address] Eosinophil percentageOrdered By: Flintstone Liliana on 01-06-2025 Eosinophils/100 WBC (Bld) 1.0 % 0-5 [facility] Erythrocyte distribution wid th ratioOrdered By: Cristóbal Liliana on 01-06-2025 Erythrocyte distribution width (RBC) [Ratio] 14.6 % 11.6-14.6 [facility] Erythrocyte distribution wid th standard deviationOrdered By: Cristóbal Ford on 01-06-2025 Erythrocyte distribution width (RBC) [Ratio] 50.5 fl High 35.1-43.9 [facility] Glomerular filtration rate ( GFR) estimation/1.73 sq m using serum, plasma, or whole bOrdered By: Cristóbal Ford on 01-06-2025 GFR/1.73 sq M.predicted among non-blacks MDRD (S/P/Bld) [Vol rate/Area] 94 mL/min/{1.73_m2} >60 [facility] Comment on above: mL/min/1.73m2 CKD-EP I Creatinine Equation (2020) Hematocrit Auto (Bld) [Volum e fraction]Ordered By: Cristóbal Ford on 01-06-2025 Hematocrit (Bld) [Volume fraction] 40.9 % 37-47 [facility] Hemoglobin measurementOrdere d By: Cristóbal Ford on 01-06-2025 Hemoglobin (Bld) [Mass/Vol] 13.2 g/dL 12.0-15.0 [facility] Immature granulocytes/100 WB C Auto (Bld)Ordered By: Cristóbal Ford on 01-06-2025 Immature granulocytes/100 WBC (Bld) 0.400 % 0.0-0.9 [facility] Comment on above: IG% - Immature Granu locytes (promyelocytes, myelocytes and metamyelocytes) > 1% indicates that a LEFT SHIFT is Present. LDHon 01-06-2025 LDH 204 U/L Normal 84-246 [facility] Comment on above: Order Comment: 1 Result Comment: Hemo lysis present, Results??could be affected.?? Performed By: #### L 3100.5000, L3100.5030, L100.0100, L3100.2300, L3100.5040, L504.2610, L500.4050 ####[facility] [address] [place], [address] Laboratory - Chemistry and C hemistry - challengeOrdered By: Cristóbal Ford on 01-06-2025 AST [Catalytic activity/Vol] 51 U/L High <32 [facility] Comment on above: Hemolysis present, R esults could be affected. Lactate dehydrogenase (LDH) measurementOrdered By: Cristóbal Ford on 01-06-2025 LDH [Catalytic activity/Vol] 204 U/L 84-246 [facility] Comment on above: Hemolysis present, R esults could be affected. MCV (mean corpuscular volume ) determinationOrdered By: Cristóbal Ford on 01-06-2025 MCV (RBC) [Entitic vol] 93.6 fL 81-99 [facility] Mean corpuscular hemoglobin (MCH) determinationOrdered By: Cristóbal Ford on 01-06-2025 MCH (RBC) [Entitic mass] 30.2 pg 27.0-32.0 [facility] Mean corpuscular hemoglobin concentration (MCHC) determinationOrdered By: Cristóbal Ford on 01-06-2025 MCHC (RBC) [Mass/Vol] 32.3 g/dL 32-36 [facility] Mean platelet volume determi nationOrdered By: Cristóbal Ford on 01-06-2025 Platelet mean volume (Bld) [Entitic vol] 9.7 fL 6.2-12.0 [facility] Monocyte percentageOrdered B y: Cristóbal Ford on 01-06-2025 Monocytes/100 WBC (Bld) 6.6 % 0-10 [facility] Neutrophil percentageOrdered By: Cristóbal Ford on 01-06-2025 Neutrophils/100 WBC (Bld) 64.4 % 47-70 [facility] Nucleated red blood cell per centageOrdered By: Cristóbal Ford on 01-06-2025 Nucleated RBC/100 WBC (Bld) [Ratio] 0 % 0-5 [facility] Oncology Visit Reporton 12-09 Oncology Visit Report Normal [facility] Platelet countOrdered By: Tami Ford on 01-06-2025 Platelets (Bld) [#/Vol] 162 10*3/uL 150-450 [facility] Potassium measurement (mass/ volume)Ordered By: Cristóbal Ford on 01-06-2025 Potassium (Unsp spec) [Mass/Vol] 4.2 mmol/L 3.3-5.1 [facility] Comment on above: Hemolysis present, R esults could be affected. RBC Auto (Bld) [#/Vol]Ordere d By: Cristóbal Ford on 01-06-2025 RBC (Bld) [#/Vol] 4.37 10*6/uL 4.2-5.4 [facility] Serum creatinine measurement (mass/volume)Ordered By: Cristóbal Ford on 01-06-2025 Creatinine [Mass/Vol] 0.75 mg/dL 0.70-1.20 [facility] Serum globulin measurementOr dered By: Cristóbal Ford on 01-06-2025 Globulin (S) [Mass/Vol] 2.6 g/dL 2.2-4.2 [facility] Serum glucose measurement (m ass/volume)Ordered By: Cristóbal Ford on 01-06-2025 Glucose [Mass/Vol] 95 mg/dL 70-99 [facility] Serum or plasma alanine alonzo otransferase (ALT) measurementOrdered By: Cristóbal Ford on 01-06-2025 ALT [Catalytic activity/Vol] 44 U/L High <35 [facility] Serum or plasma albumin paul urement (mass/volume)Ordered By: Cristóbal Ford on 01-06-2025 Albumin [Mass/Vol] 4.3 g/dL 3.5-5.0 [facility] Serum or plasma albumin/glob ulin mass ratioOrdered By: Cristóbal Ford on 01-06-2025 Albumin/Globulin [Mass ratio] 1.7 {ratio} 0.9-2.4 [facility] Serum or plasma alkaline ubaldo sphatase measurementOrdered By: Cristóbal Ford on 01-06-2025 ALP [Catalytic activity/Vol] 63 U/L 35-104 [facility] Serum or plasma calcium paul urement (mass/volume)Ordered By: Cristóbal Ford on 01-06-2025 Calcium [Mass/Vol] 10.7 mg/dL 7.6-11.0 [facility] Serum or plasma carcinoembry onic antigen measurement (mass/volume)Ordered By: Cristóbal Ford on 01-06-2025 Carcinoembryonic Ag [Mass/Vol] 1.5 ng/mL 0.0-4.7 [facility] Comment on above: Nonsmokers <3.9 Smok ers <5.6[employer] Electrochemiluminescence Immunoassay(ECLIA)Values obtained with different assay methods or kitscannot be used interchangeably. Results cannot beinterpreted as absolute evidence of the presence orabsence of malignant disease. Serum or plasma urea nitroge n measurement (mass/volume)Ordered By: Cristóbal Ford on 01-06-2025 Urea nitrogen [Mass/Vol] 18 mg/dL 4-19 [facility] Sodium levelOrdered By: Hudson Ford on 01-06-2025 Sodium [Moles/Vol] 140 mmol/L 133-145 [facility] Total proteinOrdered By: Jose G Ford on 01-06-2025 Protein [Mass/Vol] 6.9 g/dL 5.9-8.4 [facility] White blood cell (WBC) count Ordered By: Cristóbal Ford on 01-06-2025 WBC (Bld) [#/Vol] 9.3 10*3/uL 4.4-11.0 [facility] Office Visit Reporton 2024 Office Visit Report Normal [facility] Internal Medicine Office Vis iton 12-29-2024 Internal Medicine Office Visit Normal [facility] Oncology Visit Reporton 12-07 Oncology Visit Report Normal [facility] PET/CT Tumor Base -Thigh Sub son 12-07-2024 PET/CT Tumor Base -Thigh Subs Normal [facility] Limited echocardiogram repor tOrdered By: Jesus Varma on 12-02-2024 Study report [facility] [address] [place] [address] ONC Echo, Limited Study 12/02/24 0702 MR#: [id number] Acct: [id number] Name: LISSETT RUSSELL Rep #:[id number] : 1970 54 From: Jesus Zeng Attending Dr: Dr. Cristóbal Ford MD S tatus: REG CLI Ordering Dr: Cristóbal Ford MD Date: Location: [facility] Sex: F C Admitted: Reason For Study Reason For Study: CARDIOTOXIC DRUG THERAPY Procedure This was a limited 2D transthoracic echocardiogram. Myocardial strain analysis was performed in this exam to aid in the assessment of cardiac function. Exam performed in department. Left Ventricle Normal LV size. The left ventricular ejection fraction is 60 %. No regional wallmotion abnormalities noted. Right Ventricle Normal RV size. Normal systolic function. Atria Normal left atrium. Normal right atrium. Mitral Valve Normal mitral valve. Tricuspid Valve Normal tricuspid valve. Aortic Valve Normal aortic valve. Pulmonic Valve Normal pulmonic valve. Great Vessels Normal aortic root. The pulmonary artery is normal size. Inferior vena cava collapse with respiration. Pericardium/Pleural No pericardial effusion. MMode/2D Measurements & Calculations LVIDd: 5.3 cm IVSd: 1.1 cm Ao root diam: 3.6 cm LVIDs: 3.4 cm LVPWd: 0.99 cm RVDd: 2.9 cm FS: 35.3 % __ LAV(MOD-bp): 53.6 ml LVAd ap4: 30.3 cm2 LVAd ap2: 28.9 cm2 LAV(MOD-bp) Indexed: 24.9 ml/m2 LVLd ap4: 8.0 cm LVLd ap2: 8.2 cm LAV(MOD-sp2): 51.6 ml EDV(MOD-sp4): 95.9 ml EDV(MOD-sp2): 87.6 ml LAV(MOD-sp4): 50.4 ml EDV(sp4-el): 97.6 ml EDV(sp2-el): 86.3 ml LVAs ap4: 16.8 cm2 LVAs ap2: 16.4 cm2 LVLs ap4: 6.7 cm LVLs ap2: 7.0 cm ESV(MOD-sp4): 37.4 ml ESV(MOD-sp2): 31.9 ml ESV(sp4-el): 36.0 ml ESV(sp2-el): 32.9 ml EF(MOD-sp4): 61.0 % EF(MOD-sp2): 63.6 % EF(sp4-el): 63.1 % SV(MOD-sp4): 58.6 ml SV(MOD-sp2): 55.7 ml SV(sp4-el): 61.6 ml SI(MOD-sp4): 27.2 ml/m2 SI(MOD-sp2): 25.9 ml/m2 __ LA A4 area: 18.2 cm2 LA dimension(2D): 3.2 cm RA A4 area: 19.0 cm2 __ TAPSE: 2.3 cm ECHO/ONC Echo, Limited Study Interpretation Summary Normal LV size. The left ventricular ejection fraction is 60 %. The global longitudinal strain is normal. The global longitudinal strain = -17.6% (normal). Ordering Physician: Cristóbal Ford Referring Physician: Blue Alicia Performed By: Nicolle Obrien, [place], RVT 12/02/24 1529 Date _ Jesus Varma MD CC: Dr. Cristóbal Ford MD; LARA Gomez ~ Date Dictated: 12/02/24 0702 Date Transcribed: 12/02/24 152 [place] Apprentice: Signed [facility] Work Phone: ONC Echo, Limited Studyon ONC Echo, Limited Study Normal [facility] CA 15-3on 11-26-2024 CA 15-3 62.2 U/mL Abnormal 0.0-25.0 [facility] Comment on above: Result Comment: [employer] Electrochemiluminescence Immunoassay(ECLIA)Values obtained with different assay methods or kits cannotbe used interchangeably. Results cannot be interpreted asabsolute evidence of the presence or absence of malignantdisease.Performed at: [address] [id number] Director: Ervin Hitchcock PhD, Phone: [phone] Performed By: #### L 100.0100, L500.4050, L3100.5030, L3100.5040, L504.2610 ####[facility] [address] [place], [place], [id number] CA 27.29on 11-26-2024 CA 27.29 75.5 U/mL Abnormal 0.0-38.6 [facility] Comment on above: Result Comment: [employer] Immunochemiluminometric Methodology (ICMA)Values obtained with different assay methods or kits cannotbe used interchangeably. Results cannot be interpreted asabsolute evidence of the presence or absence of malignantdisease. Performed By: #### L 100.0100, L500.4050, L3100.5030, L3100.5040, L504.2610 ####[facility] [address] [place], [place], [id number] Absolute lymphocyte countOrd ered By: Cristóbal Ford on 11-25-2024 Lymphocytes Auto (Unsp spec) [#/Vol] 2.44 10*3/uL 0.83-4.51 [facility] Absolute neutrophil countOrd ered By: Cristóbal Ford on 11-25-2024 Neutrophils (Bld) [#/Vol] 5.5 10*3/uL 2.0-7.7 [facility] Anion gap in Serum or Plasma Ordered By: Cristóbal Ford on 11-25-2024 Anion gap [Moles/Vol] 13 mmol/L 5- [facility] Automated lymphocyte count a s percentage of total leukocytesOrdered By: Cristóbal Ford on 11-25-2024 Lymphocytes/100 WBC Auto (Unsp spec) 28.2 % - [facility] BUN/creatinine ratioOrdered By: Cristóbal Ford on 11-25-2024 Urea nitrogen/Creatinine [Mass ratio] 21.0 mg/mg High 10-20 [facility] Basophil percentageOrdered B y: Cristóbal Ford on 11-25-2024 Basophils/100 WBC (Bld) 0.3 % 0-1 [facility] Bilirubin, totalOrdered By: Cristóbal Ford on 11-25-2024 Bilirubin [Mass/Vol] 0.25 mg/dL 0.00-1.30 [facility] CA 15-3Ordered By: Cristóbal smart on 11-25-2024 CA 15-3 62.2 U/mL High 0.0-25.0 [facility] Comment on above: [employer] El ectrochemiluminescence Immunoassay(ECLIA)Values obtained with different assay methods or kits cannotbe used interchangeably. Results cannot be interpreted asabsolute evidence of the presence or absence of malignantdisease.Performed at: [facility] [id number] Director: Ervin Hitchcock PhD, Phone: [phone] CA 27.29Ordered By: Cristóbal bolivar on 11-25-2024 CA 27.29 75.5 U/mL High 0.0-38.6 [facility] Comment on above: [employer] Immu nochemiluminometric Methodology (ICMA)Values obtained with different assay methods or kits cannotbe used interchangeably. Results cannot be interpreted asabsolute evidence of the presence or absence of malignantdisease. CBC W/Diff, Automatedon 11-07 Absolute Lymph 2.44 X10 3/uL Normal 0.83-4.51 [facility] Comment on above: Performed By: #### L 100.0100, L500.4050, L3100.5030, L3100.5040, L504.2610 ####[facility] [address] [place], [address] Absolute Neut 5.5 X10 3/uL Normal 2.0-7.7 [facility] Comment on above: Performed By: #### L 100.0100, L500.4050, L3100.5030, L3100.5040, L504.2610 ####[facility] [address] [place], [address] Basophils/100 WBC (Bld) 0.3 % Normal 0-1 [facility] Comment on above: Performed By: #### L 100.0100, L500.4050, L3100.5030, L3100.5040, L504.2610 ####[facility] [address] [place], [address] Eosinophils/100 WBC (Bld) 1.0 % Normal 0-5 [facility] Comment on above: Performed By: #### L 100.0100, L500.4050, L3100.5030, L3100.5040, L504.2610 ####[facility] [address] [place], [address] Erythrocyte distribution width (RBC) [Ratio] 14.6 % Normal 11.6-14.6 [facility] Comment on above: Performed By: #### L 100.0100, L500.4050, L3100.5030, L3100.5040, L504.2610 ####[facility] [address] [place], [address] Hematocrit (Bld) [Volume fraction] 39.9 % Normal 37-47 [facility] Comment on above: Performed By: #### L 100.0100, L500.4050, L3100.5030, L3100.5040, L504.2610 ####[facility] [address] [place], [address] Hemoglobin (Bld) [Mass/Vol] 13.0 g/dL Normal 12.0-15.0 [facility] Comment on above: Performed By: #### L 100.0100, L500.4050, L3100.5030, L3100.5040, L504.2610 ####[facility] [address] [place], [address] IG% 0.500 Normal 0.0-0.9 [facility] Comment on above: Result Comment: IG% - Immature Granulocytes (promyelocytes, myelocytes andmetamyelocytes) > 1% indicates that a LEFT SHIFT is Present. Performed By: #### L 100.0100, L500.4050, L3100.5030, L3100.5040, L504.2610 ####[facility] [address] [place], [address] Lymphocytes/100 WBC (Bld) 28.2 % Normal 19-41 [facility] Comment on above: Performed By: #### L 100.0100, L500.4050, L3100.5030, L3100.5040, L504.2610 ####[facility] [address] [place], [address] MCH (RBC) [Entitic mass] 29.6 pg Normal 27.0-32.0 [facility] Comment on above: Performed By: #### L 100.0100, L500.4050, L3100.5030, L3100.5040, L504.2610 ####[facility] [address] [place], [address] MCHC (RBC) [Mass/Vol] 32.6 g/dL Normal 32-36 [facility] Comment on above: Performed By: #### L 100.0100, L500.4050, L3100.5030, L3100.5040, L504.2610 ####[facility] [address] [place], [address] MCV (RBC) [Entitic vol] 90.9 fL Normal 81-99 [facility] Comment on above: Performed By: #### L 100.0100, L500.4050, L3100.5030, L3100.5040, L504.2610 ####[facility] [address] [place], [address] Monocytes/100 WBC (Bld) 6.2 % Normal 0-10 [facility] Comment on above: Performed By: #### L 100.0100, L500.4050, L3100.5030, L3100.5040, L504.2610 ####[facility] [address] [place], [address] Neutrophils/100 WBC (Bld) 63.8 % Normal 47-70 [facility] Comment on above: Performed By: #### L 100.0100, L500.4050, L3100.5030, L3100.5040, L504.2610 ####[facility] [address] [place], [address] Nucleated RBC (Bld) [#/Vol] 0 10*3/uL Normal 0-5 [facility] Comment on above: Performed By: #### L 100.0100, L500.4050, L3100.5030, L3100.5040, L504.2610 ####[facility] [address] [place], [address] Platelet mean volume (Bld) [Entitic vol] 9.8 fL Normal 6.2-12.0 [facility] Comment on above: Performed By: #### L 100.0100, L500.4050, L3100.5030, L3100.5040, L504.2610 ####[facility] [address] [place], [address] Platelets (Bld) [#/Vol] 162 10*3/uL Normal 150-450 [facility] Comment on above: Performed By: #### L 100.0100, L500.4050, L3100.5030, L3100.5040, L504.2610 ####[facility] [address] [place], [address] RBC (Bld) [#/Vol] 4.39 10*6/uL Normal 4.2-5.4 [facility] Comment on above: Performed By: #### L 100.0100, L500.4050, L3100.5030, L3100.5040, L504.2610 ####[facility] [address] [place], [address] RDW SD 49.1 fl High 35.1-43.9 [facility] Comment on above: Performed By: #### L 100.0100, L500.4050, L3100.5030, L3100.5040, L504.2610 ####[facility] [address] [place], [address] WBC (Bld) [#/Vol] 8.7 10*3/uL Normal 4.4-11.0 [facility] Comment on above: Performed By: #### L 100.0100, L500.4050, L3100.5030, L3100.5040, L504.2610 ####[facility] [address] [place], [address] Carbon dioxide, total [Moles /volume] in Central venous bloodOrdered By: Cristóbal Ford on 11-25-2024 CO2 [Moles/Vol] 24.6 mmol/L 21.0-32.0 [facility] Chloride assayOrdered By: Tami Ford on 11-25-2024 Chloride [Moles/Vol] 104 mmol/L 98-108 [facility] Comprehensive Metabolic Prof ilon 11-25-2024 Albumin [Mass/Vol] 4.4 g/dL Normal 3.5-5.0 [facility] Comment on above: Performed By: #### L 100.0100, L500.4050, L3100.5030, L3100.5040, L504.2610 ####[facility] [address] [place], [address] Albumin/Globulin [Mass ratio] 1.8 {ratio} Normal 0.9-2.4 [facility] Comment on above: Performed By: #### L 100.0100, L500.4050, L3100.5030, L3100.5040, L504.2610 ####[facility] [address] [place], [address] ALK PHOS 66 U/L Normal 35-104 [facility] Comment on above: Performed By: #### L 100.0100, L500.4050, L3100.5030, L3100.5040, L504.2610 ####[facility] [address] [place], [address] ALT [Catalytic activity/Vol] 36 U/L High <=34 [facility] Comment on above: Performed By: #### L 100.0100, L500.4050, L3100.5030, L3100.5040, L504.2610 ####[facility] [address] [place], [address] AST [Catalytic activity/Vol] 40 U/L High <=31 [facility] Comment on above: Performed By: #### L 100.0100, L500.4050, L3100.5030, L3100.5040, L504.2610 ####[facility] [address] [place], [address] Bilirubin [Mass/Vol] 0.25 mg/dL Normal 0.00-1.30 [facility] Comment on above: Performed By: #### L 100.0100, L500.4050, L3100.5030, L3100.5040, L504.2610 ####[facility] [address] [place], [address] BUN/CRE 21.0 RATIO High 10-20 [facility] Comment on above: Performed By: #### L 100.0100, L500.4050, L3100.5030, L3100.5040, L504.2610 ####[facility] [address] [place], [address] Calcium [Mass/Vol] 10.1 mg/dL Normal 7.6-11.0 [facility] Comment on above: Performed By: #### L 100.0100, L500.4050, L3100.5030, L3100.5040, L504.2610 ####[facility] [address] [place], [address] Chloride [Moles/Vol] 104 mmol/L Normal 98-108 [facility] Comment on above: Performed By: #### L 100.0100, L500.4050, L3100.5030, L3100.5040, L504.2610 ####[facility] [address] [place], [address] CO2 [Moles/Vol] 24.6 mmol/L Normal 21.0-32.0 [facility] Comment on above: Performed By: #### L 100.0100, L500.4050, L3100.5030, L3100.5040, L504.2610 ####[facility] [address] [place], [address] Creatinine [Mass/Vol] 0.76 mg/dL Normal 0.70-1.20 [facility] Comment on above: Performed By: #### L 100.0100, L500.4050, L3100.5030, L3100.5040, L504.2610 ####[facility] [address] [place], [address] ECRCL 105.02 ml/min Normal 50-250 [facility] Comment on above: Performed By: #### L 100.0100, L500.4050, L3100.5030, L3100.5040, L504.2610 ####[facility] [address] [place], [address] GAP 13 Normal 5-15 [facility] Comment on above: Performed By: #### L 100.0100, L500.4050, L3100.5030, L3100.5040, L504.2610 ####[facility] [address] [place], [address] GFR/1.73 sq M.predicted among non-blacks MDRD (S/P/Bld) [Vol rate/Area] 93 mL/min/{1.73_m2} Normal >60 [facility] Comment on above: Result Comment: mL/m in/1.73m2 CKD-EPI Creatinine Equation (2020) Performed By: #### L 100.0100, L500.4050, L3100.5030, L3100.5040, L504.2610 ####[facility] [address] [place], [address] Globulin (S) [Mass/Vol] 2.4 g/dL Normal 2.2-4.2 [facility] Comment on above: Performed By: #### L 100.0100, L500.4050, L3100.5030, L3100.5040, L504.2610 ####[facility] [address] [place], [address] Glucose [Mass/Vol] 109 mg/dL High 70-99 [facility] Comment on above: Performed By: #### L 100.0100, L500.4050, L3100.5030, L3100.5040, L504.2610 ####[facility] [address] [place], [address] Potassium [Moles/Vol] 3.9 mmol/L Normal 3.3-5.1 [facility] Comment on above: Performed By: #### L 100.0100, L500.4050, L3100.5030, L3100.5040, L504.2610 ####[facility] [address] [place], [address] Sodium [Moles/Vol] 141 mmol/L Normal 133-145 [facility] Comment on above: Performed By: #### L 100.0100, L500.4050, L3100.5030, L3100.5040, L504.2610 ####[facility] [address] [place], [address] T PROT 6.8 g/dL Normal 5.9-8.4 [facility] Comment on above: Performed By: #### L 100.0100, L500.4050, L3100.5030, L3100.5040, L504.2610 ####[facility] [address] [place], [address] Urea nitrogen [Mass/Vol] 16 mg/dL Normal - [facility] Comment on above: Performed By: #### L 100.0100, L500.4050, L3100.5030, L3100.5040, L504.2610 ####[facility] [address] [place], [address] Eosinophil percentageOrdered By: Cristóbal Ford on 11-25-2024 Eosinophils/100 WBC (Bld) 1.0 % 0-5 [facility] Erythrocyte distribution wid th ratioOrdered By: Cristóbal Ford on 11-25-2024 Erythrocyte distribution width (RBC) [Ratio] 14.6 % 11.6-14.6 [facility] Erythrocyte distribution wid th standard deviationOrdered By: Cristóbal Ford on 11-25-2024 Erythrocyte distribution width (RBC) [Ratio] 49.1 fl High 35.1-43.9 [facility] Glomerular filtration rate ( GFR) estimation/1.73 sq m using serum, plasma, or whole bOrdered By: Cristóbal Ford on 11-25-2024 GFR/1.73 sq M.predicted among non-blacks MDRD (S/P/Bld) [Vol rate/Area] 93 mL/min/{1.73_m2} >60 [facility] Comment on above: mL/min/1.73m2 CKD-EP I Creatinine Equation (2020) Hematocrit Auto (Bld) [Volum e fraction]Ordered By: Cristóbal Ford on 11-25-2024 Hematocrit (Bld) [Volume fraction] 39.9 % 37-47 [facility] Hemoglobin measurementOrdere d By: Cristóbal Ford on 11-25-2024 Hemoglobin (Bld) [Mass/Vol] 13.0 g/dL 12.0-15.0 [facility] Immature granulocytes/100 WB C Auto (Bld)Ordered By: Cristóbal Ford on 11-25-2024 Immature granulocytes/100 WBC (Bld) 0.500 % 0.0-0.9 [facility] Comment on above: IG% - Immature Granu locytes (promyelocytes, myelocytes and metamyelocytes) > 1% indicates that a LEFT SHIFT is Present. LDHon 11-25-2024 LDH 171 U/L Normal 84-246 [facility] Comment on above: Order Comment: 1 Performed By: #### L 100.0100, L500.4050, L3100.5030, L3100.5040, L504.2610 ####[facility] [address] [place], [place], [address] Laboratory - Chemistry and C hemistry - challengeOrdered By: Cristóbal Ford on 11-25-2024 AST [Catalytic activity/Vol] 40 U/L High <32 [facility] Lactate dehydrogenase (LDH) measurementOrdered By: Cristóbal Ford on 11-25-2024 LDH [Catalytic activity/Vol] 171 U/L 84-246 [facility] MCV (mean corpuscular volume ) determinationOrdered By: Cristóbal Ford on 11-25-2024 MCV (RBC) [Entitic vol] 90.9 fL 81-99 [facility] Mean corpuscular hemoglobin (MCH) determinationOrdered By: Cristóbal Ford on 11-25-2024 MCH (RBC) [Entitic mass] 29.6 pg 27.0-32.0 [facility] Mean corpuscular hemoglobin concentration (MCHC) determinationOrdered By: Cristóbal Ford on 11-25-2024 MCHC (RBC) [Mass/Vol] 32.6 g/dL 32-36 [facility] Mean platelet volume determi nationOrdered By: Cristóbal Ford on 11-25-2024 Platelet mean volume (Bld) [Entitic vol] 9.8 fL 6.2-12.0 [facility] Monocyte percentageOrdered B y: Cristóbal Ford on 11-25-2024 Monocytes/100 WBC (Bld) 6.2 % 0-10 [facility] Neutrophil percentageOrdered By: Cristóbal Ford on 11-25-2024 Neutrophils/100 WBC (Bld) 63.8 % 47-70 [facility] Nucleated red blood cell per centageOrdered By: Cristóbal Ford on 11-25-2024 Nucleated RBC/100 WBC (Bld) [Ratio] 0 % 0-5 [facility] Oncology Visit Reporton 11-07 Oncology Visit Report Normal [facility] Platelet countOrdered By: Tami Ford on 11-25-2024 Platelets (Bld) [#/Vol] 162 10*3/uL 150-450 [facility] Potassium measurement (mass/ volume)Ordered By: Cristóbal Ford on 11-25-2024 Potassium (Unsp spec) [Mass/Vol] 3.9 mmol/L 3.3-5.1 [facility] RBC Auto (Bld) [#/Vol]Ordere d By: Cristóbal Ford on 11-25-2024 RBC (Bld) [#/Vol] 4.39 10*6/uL 4.2-5.4 [facility] Serum creatinine measurement (mass/volume)Ordered By: Cristóbal Ford on 11-25-2024 Creatinine [Mass/Vol] 0.76 mg/dL 0.70-1.20 [facility] Serum globulin measurementOr dered By: Cristóbal Ford on 11-25-2024 Globulin (S) [Mass/Vol] 2.4 g/dL 2.2-4.2 [facility] Serum glucose measurement (m ass/volume)Ordered By: Cristóbal Ford on 11-25-2024 Glucose [Mass/Vol] 109 mg/dL High 70-99 [facility] Serum or plasma alanine alonzo otransferase (ALT) measurementOrdered By: Cristóbal Ford on 11-25-2024 ALT [Catalytic activity/Vol] 36 U/L High <35 [facility] Serum or plasma albumin paul urement (mass/volume)Ordered By: Cristóbal Ford on 11-25-2024 Albumin [Mass/Vol] 4.4 g/dL 3.5-5.0 [facility] Serum or plasma albumin/glob ulin mass ratioOrdered By: Cristóbal Ford on 11-25-2024 Albumin/Globulin [Mass ratio] 1.8 {ratio} 0.9-2.4 [facility] Serum or plasma alkaline ubaldo sphatase measurementOrdered By: Cristóbal Ford on 11-25-2024 ALP [Catalytic activity/Vol] 66 U/L 35-104 [facility] Serum or plasma calcium paul urement (mass/volume)Ordered By: Cristóbal Liliana on 11-25-2024 Calcium [Mass/Vol] 10.1 mg/dL 7.6-11.0 [facility] Serum or plasma urea nitroge n measurement (mass/volume)Ordered By: Cristóbal Ford on 11-25-2024 Urea nitrogen [Mass/Vol] 16 mg/dL 4-19 [facility] Sodium levelOrdered By: Hudson Ford on 11-25-2024 Sodium [Moles/Vol] 141 mmol/L 133-145 [facility] Total proteinOrdered By: Jose G Ford on 11-25-2024 Protein [Mass/Vol] 6.8 g/dL 5.9-8.4 [facility] White blood cell (WBC) count Ordered By: Cristóbal Ford on 11-25-2024 WBC (Bld) [#/Vol] 8.7 10*3/uL 4.4-11.0 [facility] CA 15-3on 11-05-2024 CA 15-3 53.9 U/mL Abnormal 0.0-25.0 [facility] Comment on above: Result Comment: [employer] Electrochemiluminescence Immunoassay(ECLIA)Values obtained with different assay methods or kits cannotbe used interchangeably. Results cannot be interpreted asabsolute evidence of the presence or absence of malignantdisease.Performed at: [place] [id number] Director: Ervin Hitchcock PhD, Phone: [phone] Performed By: #### L 100.0100, L3100.4630, L3100.5030, L500.2270 ####[facility] [address] [place], [place], [id number] [place] 27.29on 11-05-2024 CA 27.29 78.7 U/mL Abnormal 0.0-38.6 [facility] Comment on above: Result Comment: [employer] Immunochemiluminometric Methodology (ICMA)Values obtained with different assay methods or kits cannotbe used interchangeably. Results cannot be interpreted asabsolute evidence of the presence or absence of malignantdisease. Performed By: #### L 100.0100, L3100.5040, L3100.5030, L500.4050 ####[facility] [address] [place], [address] Absolute lymphocyte countOrd ered By: Genna Aleksander on 11-04-2024 Lymphocytes Auto (Unsp spec) [#/Vol] 2.66 10*3/uL 0.83-4.51 [facility] Absolute neutrophil countOrd ered By: Genna Aleksander on 11-04-2024 Neutrophils (Bld) [#/Vol] 6.5 10*3/uL 2.0-7.7 [facility] Anion gap in Serum or Plasma Ordered By: Genna Aleksander on 11-04-2024 Anion gap [Moles/Vol] 11 mmol/L 5-15 [facility] Automated lymphocyte count a s percentage of total leukocytesOrdered By: Genna Aleksander on 11-04-2024 Lymphocytes/100 WBC Auto (Unsp spec) 26.9 % 19-41 [facility] BUN/creatinine ratioOrdered By: Genna StricklandAleksander on 11-04-2024 Urea nitrogen/Creatinine [Mass ratio] 26.8 mg/mg High 10-20 [facility] Basophil percentageOrdered B y: Genna Aleksander on 11-04-2024 Basophils/100 WBC (Bld) 0.4 % 0-1 [facility] Bilirubin, totalOrdered By: Gennanino StricklandAleksander on 11-04-2024 Bilirubin [Mass/Vol] 0.25 mg/dL 0.00-1.30 [facility] CA 15-3Ordered By: Genna Stricklandl abach on 11-04-2024 CA 15-3 53.9 U/mL High 0.0-25.0 [facility] Comment on above: [employer] El ectrochemiluminescence Immunoassay(ECLIA)Values obtained with different assay methods or kits cannotbe used interchangeably. Results cannot be interpreted asabsolute evidence of the presence or absence of malignantdisease.Performed at: [facility] [address] [id number] Director: Ervin Hitchcock PhD, Phone: [phone] [place] Ordered By: Genna fuentes on 11-04-2024 CA 27.29 78.7 U/mL High 0.0-38.6 [facility] Comment on above: [employer] Immu nochemiluminometric Methodology (ICMA)Values obtained with different assay methods or kits cannotbe used interchangeably. Results cannot be interpreted asabsolute evidence of the presence or absence of malignantdisease. CBC W/Diff, Automatedon 10-08 Absolute Lymph 2.66 X10 3/uL Normal 0.83-4.51 [facility] Comment on above: Performed By: #### L 100.0100, L3100.5040, L3100.5030, L500.4050 ####[facility] [address] [place], [address] Absolute Neut 6.5 X10 3/uL Normal 2.0-7.7 [facility] Comment on above: Performed By: #### L 100.0100, L3100.5040, L3100.5030, L500.4050 ####[facility] [address] [place], [address] Basophils/100 WBC (Bld) 0.4 % Normal 0-1 [facility] Comment on above: Performed By: #### L 100.0100, L3100.5040, L3100.5030, L500.4050 ####[facility] [address] [place], [address] Eosinophils/100 WBC (Bld) 0.8 % Normal 0-5 [facility] Comment on above: Performed By: #### L 100.0100, L3100.5040, L3100.5030, L500.4050 ####[facility] [address] [place], [address] Erythrocyte distribution width (RBC) [Ratio] 13.9 % Normal 11.6-14.6 [facility] Comment on above: Performed By: #### L 100.0100, L3100.5040, L3100.5030, L500.4050 ####[facility] [address] [place], [address] Hematocrit (Bld) [Volume fraction] 38.9 % Normal 37-47 [facility] Comment on above: Performed By: #### L 100.0100, L3100.5040, L3100.5030, L500.4050 ####[facility] [address] [place], [address] Hemoglobin (Bld) [Mass/Vol] 12.6 g/dL Normal 12.0-15.0 [facility] Comment on above: Performed By: #### L 100.0100, L3100.5040, L3100.5030, L500.4050 ####[facility] [address] [place], [address] IG% 0.500 Normal 0.0-0.9 [facility] Comment on above: Result Comment: IG% - Immature Granulocytes (promyelocytes, myelocytes andmetamyelocytes) > 1% indicates that a LEFT SHIFT is Present. Performed By: #### L 100.0100, L3100.5040, L3100.5030, L500.4050 ####[facility] [address] [place], [address] Lymphocytes/100 WBC (Bld) 26.9 % Normal 19-41 [facility] Comment on above: Performed By: #### L 100.0100, L3100.5040, L3100.5030, L500.4050 ####[facility] [address] [place], [address] MCH (RBC) [Entitic mass] 29.9 pg Normal 27.0-32.0 [facility] Comment on above: Performed By: #### L 100.0100, L3100.5040, L3100.5030, L500.4050 ####[facility] [address] [place], [address] MCHC (RBC) [Mass/Vol] 32.4 g/dL Normal 32-36 [facility] Comment on above: Performed By: #### L 100.0100, L3100.5040, L3100.5030, L500.4050 ####[facility] [address] [place], [address] MCV (RBC) [Entitic vol] 92.4 fL Normal 81-99 [facility] Comment on above: Performed By: #### L 100.0100, L3100.5040, L3100.5030, L500.4050 ####[facility] [address] [place], [address] Monocytes/100 WBC (Bld) 5.6 % Normal 0-10 [facility] Comment on above: Performed By: #### L 100.0100, L3100.5040, L3100.5030, L500.4050 ####[facility] [address] [place], [address] Neutrophils/100 WBC (Bld) 65.8 % Normal 47-70 [facility] Comment on above: Performed By: #### L 100.0100, L3100.5040, L3100.5030, L500.4050 ####[facility] [address] [place], [address] Nucleated RBC (Bld) [#/Vol] 0 10*3/uL Normal 0-5 [facility] Comment on above: Performed By: #### L 100.0100, L3100.5040, L3100.5030, L500.4050 ####[facility] [address] [place], [address] Platelet mean volume (Bld) [Entitic vol] 10.0 fL Normal 6.2-12.0 [facility] Comment on above: Performed By: #### L 100.0100, L3100.5040, L3100.5030, L500.4050 ####[facility] [address] [place], [address] Platelets (Bld) [#/Vol] 195 10*3/uL Normal 150-450 [facility] Comment on above: Performed By: #### L 100.0100, L3100.5040, L3100.5030, L500.4050 ####[facility] [address] [place], [address] RBC (Bld) [#/Vol] 4.21 10*6/uL Normal 4.2-5.4 [facility] Comment on above: Performed By: #### L 100.0100, L3100.5040, L3100.5030, L500.4050 ####[facility] [address] [place], [address] RDW SD 47.5 fl High 35.1-43.9 [facility] Comment on above: Performed By: #### L 100.0100, L3100.5040, L3100.5030, L500.4050 ####[facility] [address] [place], [address] WBC (Bld) [#/Vol] 9.9 10*3/uL Normal 4.4-11.0 [facility] Comment on above: Performed By: #### L 100.0100, L3100.5040, L3100.5030, L500.4050 ####[facility] [address] [place], [address] Carbon dioxide, total [Moles /volume] in Central venous bloodOrdered By: Genna Zuniga on 11-04-2024 CO2 [Moles/Vol] 25.0 mmol/L 21.0-32.0 [facility] Chloride assayOrdered By: Ty ra Zuniga on 11-04-2024 Chloride [Moles/Vol] 104 mmol/L 98-108 [facility] Comprehensive Metabolic Prof ilon 11-04-2024 Albumin [Mass/Vol] 4.1 g/dL Normal 3.5-5.0 [facility] Comment on above: Performed By: #### L 100.0100, L3100.5040, L3100.5030, L500.4050 ####[facility] [address] [place], [address] Albumin/Globulin [Mass ratio] 1.6 {ratio} Normal 0.9-2.4 [facility] Comment on above: Performed By: #### L 100.0100, L3100.5040, L3100.5030, L500.4050 ####[facility] [address] [place], [address] ALK PHOS 67 U/L Normal 35-104 [facility] Comment on above: Performed By: #### L 100.0100, L3100.5040, L3100.5030, L500.4050 ####[facility] [address] [place], [address] ALT [Catalytic activity/Vol] 35 U/L Normal <=34 [facility] Comment on above: Performed By: #### L 100.0100, L3100.5040, L3100.5030, L500.4050 ####[facility] [address] [place], [address] AST [Catalytic activity/Vol] 36 U/L High <=31 [facility] Comment on above: Performed By: #### L 100.0100, L3100.5040, L3100.5030, L500.4050 ####[facility] [address] [place], [address] Bilirubin [Mass/Vol] 0.25 mg/dL Normal 0.00-1.30 [facility] Comment on above: Performed By: #### L 100.0100, L3100.5040, L3100.5030, L500.4050 ####[facility] [address] [place], [address] BUN/CRE 26.8 RATIO High 10-20 [facility] Comment on above: Performed By: #### L 100.0100, L3100.5040, L3100.5030, L500.4050 ####[facility] [address] [place], [address] Calcium [Mass/Vol] 10.0 mg/dL Normal 7.6-11.0 [facility] Comment on above: Performed By: #### L 100.0100, L3100.5040, L3100.5030, L500.4050 ####[facility] [address] [place], [address] Chloride [Moles/Vol] 104 mmol/L Normal 98-108 [facility] Comment on above: Performed By: #### L 100.0100, L3100.5040, L3100.5030, L500.4050 ####[facility] [address] [place], [address] CO2 [Moles/Vol] 25.0 mmol/L Normal 21.0-32.0 [facility] Comment on above: Performed By: #### L 100.0100, L3100.5040, L3100.5030, L500.4050 ####[facility] [address] [place], [address] Creatinine [Mass/Vol] 0.64 mg/dL Low 0.70-1.20 [facility] Comment on above: Performed By: #### L 100.0100, L3100.5040, L3100.5030, L500.4050 ####[facility] [address] [place], [address] ECRCL 123.71 ml/min Normal 50-250 [facility] Comment on above: Performed By: #### L 100.0100, L3100.5040, L3100.5030, L500.4050 ####[facility] [address] [place], [address] GAP 11 Normal 5-15 [facility] Comment on above: Performed By: #### L 100.0100, L3100.5040, L3100.5030, L500.4050 ####[facility] [address] [place], [address] GFR/1.73 sq M.predicted among non-blacks MDRD (S/P/Bld) [Vol rate/Area] 104 mL/min/{1.73_m2} Normal >60 [facility] Comment on above: Result Comment: mL/m in/1.73m2 CKD-EPI Creatinine Equation (2020) Performed By: #### L 100.0100, L3100.5040, L3100.5030, L500.4050 ####[facility] [address] [place], [address] Globulin (S) [Mass/Vol] 2.6 g/dL Normal 2.2-4.2 [facility] Comment on above: Performed By: #### L 100.0100, L3100.5040, L3100.5030, L500.4050 ####[facility] [address] [place], [address] Glucose [Mass/Vol] 95 mg/dL Normal 70-99 [facility] Comment on above: Performed By: #### L 100.0100, L3100.5040, L3100.5030, L500.4050 ####[facility] [address] [place], [address] Potassium [Moles/Vol] 3.9 mmol/L Normal 3.3-5.1 [facility] Comment on above: Performed By: #### L 100.0100, L3100.5040, L3100.5030, L500.4050 ####[facility] [address] [place], [address] Sodium [Moles/Vol] 140 mmol/L Normal 133-145 [facility] Comment on above: Performed By: #### L 100.0100, L3100.5040, L3100.5030, L500.4050 ####[facility] [address] [place], [address] T PROT 6.7 g/dL Normal 5.9-8.4 [facility] Comment on above: Performed By: #### L 100.0100, L3100.5040, L3100.5030, L500.4050 ####[facility] [address] [place], [address] Urea nitrogen [Mass/Vol] 17 mg/dL Normal 4-19 [facility] Comment on above: Performed By: #### L 100.0100, L3100.5040, L3100.5030, L500.4050 ####[facility] [address] [place], [address] Eosinophil percentageOrdered By: Genna Zuniga on 11-04-2024 Eosinophils/100 WBC (Bld) 0.8 % 0-5 [facility] Erythrocyte distribution wid th ratioOrdered By: Genna Zuniga on 11-04-2024 Erythrocyte distribution width (RBC) [Ratio] 13.9 % 11.6-14.6 [facility] Erythrocyte distribution wid th standard deviationOrdered By: Genna Zuniga on 11-04-2024 Erythrocyte distribution width (RBC) [Ratio] 47.5 fl High 35.1-43.9 [facility] Glomerular filtration rate ( GFR) estimation/1.73 sq m using serum, plasma, or whole bOrdered By: Genna Zuniga on 11-04-2024 GFR/1.73 sq M.predicted among non-blacks MDRD (S/P/Bld) [Vol rate/Area] 104 mL/min/{1.73_m2} >60 [facility] Comment on above: mL/min/1.73m2 CKD-EP I Creatinine Equation (2020) Hematocrit Auto (Bld) [Volum e fraction]Ordered By: Genna Zuniga on 11-04-2024 Hematocrit (Bld) [Volume fraction] 38.9 % 37-47 [facility] Hemoglobin measurementOrdere d By: Genna Zuniga on 11-04-2024 Hemoglobin (Bld) [Mass/Vol] 12.6 g/dL 12.0-15.0 [facility] Immature granulocytes/100 WB C Auto (Bld)Ordered By: Genna Zuniga on 11-04-2024 Immature granulocytes/100 WBC (Bld) 0.500 % 0.0-0.9 [facility] Comment on above: IG% - Immature Granu locytes (promyelocytes, myelocytes and metamyelocytes) > 1% indicates that a LEFT SHIFT is Present. Laboratory - Chemistry and C hemistry - challengeOrdered By: Genna Zuniga on 11-04-2024 AST [Catalytic activity/Vol] 36 U/L High <32 [facility] MCV (mean corpuscular volume ) determinationOrdered By: Genna Zuniga on 11-04-2024 MCV (RBC) [Entitic vol] 92.4 fL 81-99 [facility] Mean corpuscular hemoglobin (MCH) determinationOrdered By: Genna Zuniga on 11-04-2024 MCH (RBC) [Entitic mass] 29.9 pg 27.0-32.0 [facility] Mean corpuscular hemoglobin concentration (MCHC) determinationOrdered By: Genna Zuniga on 11-04-2024 MCHC (RBC) [Mass/Vol] 32.4 g/dL 32-36 [facility] Mean platelet volume determi nationOrdered By: Genna Zuniga on 11-04-2024 Platelet mean volume (Bld) [Entitic vol] 10.0 fL 6.2-12.0 [facility] Monocyte percentageOrdered B y: Genna Zuniga on 11-04-2024 Monocytes/100 WBC (Bld) 5.6 % 0-10 [facility] Neutrophil percentageOrdered By: Genna Zuniga on 11-04-2024 Neutrophils/100 WBC (Bld) 65.8 % 47-70 [facility] Nucleated red blood cell per centageOrdered By: Genna Zuniga on 11-04-2024 Nucleated RBC/100 WBC (Bld) [Ratio] 0 % 0-5 [facility] Oncology Visit Reporton 10-08 Oncology Visit Report Normal [facility] Platelet countOrdered By: Erwin Zuniga on 11-04-2024 Platelets (Bld) [#/Vol] 195 10*3/uL 150-450 [facility] Potassium measurement (mass/ volume)Ordered By: Genna Zuniga on 11-04-2024 Potassium (Unsp spec) [Mass/Vol] 3.9 mmol/L 3.3-5.1 [facility] RBC Auto (Bld) [#/Vol]Ordere d By: Genna Zuniga on 11-04-2024 RBC (Bld) [#/Vol] 4.21 10*6/uL 4.2-5.4 [facility] Serum creatinine measurement (mass/volume)Ordered By: Genna Zuniga on 11-04-2024 Creatinine [Mass/Vol] 0.64 mg/dL Low 0.70-1.20 [facility] Serum globulin measurementOr dered By: Genna Zuniga on 11-04-2024 Globulin (S) [Mass/Vol] 2.6 g/dL 2.2-4.2 [facility] Serum glucose measurement (m ass/volume)Ordered By: Genna Zuniga on 11-04-2024 Glucose [Mass/Vol] 95 mg/dL 70-99 [facility] Serum or plasma alanine alonzo otransferase (ALT) measurementOrdered By: Genna Zuniga on 11-04-2024 ALT [Catalytic activity/Vol] 35 U/L <35 [facility] Serum or plasma albumin paul urement (mass/volume)Ordered By: Genna Zuniga on 11-04-2024 Albumin [Mass/Vol] 4.1 g/dL 3.5-5.0 [facility] Serum or plasma albumin/glob ulin mass ratioOrdered By: Genna Zuniga on 11-04-2024 Albumin/Globulin [Mass ratio] 1.6 {ratio} 0.9-2.4 [facility] Serum or plasma alkaline ubaldo sphatase measurementOrdered By: Genna Zuniga on 11-04-2024 ALP [Catalytic activity/Vol] 67 U/L 35-104 [facility] Serum or plasma calcium paul urement (mass/volume)Ordered By: Genna Aleksander on 11-04-2024 Calcium [Mass/Vol] 10.0 mg/dL 7.6-11.0 [facility] Serum or plasma urea nitroge n measurement (mass/volume)Ordered By: [facility] Aleksander on 11-04-2024 Urea nitrogen [Mass/Vol] 17 mg/dL 4-19 [facility] Sodium levelOrdered By: [facility] on 11-04-2024 Sodium [Moles/Vol] 140 mmol/L 133-145 [facility] Total proteinOrdered By: David Zuniga on 11-04-2024 Protein [Mass/Vol] 6.7 g/dL 5.9-8.4 [facility] White blood cell (WBC) count Ordered By: Genna Zuniga on 11-04-2024 WBC (Bld) [#/Vol] 9.9 10*3/uL 4.4-11.0 [facility] Urine Cultureon 10-28-2024 URC Normal [facility] Comment on above: Performed By: #### M 100.2200 ####[facility] [address] [place], [place], [id number] Laboratory - Chemistry and C hemistry - challengeOrdered By: Dain Vaughn on 10-26-2024 Bilirubin Ql (U) Negative [facility] Glucose Ql (U) Negative [facility] Ketones Ql (U) Negative [facility] pH (U) 7.0 [pH] [facility] Specific gravity (U) [Rel density] 1.015 [facility] Urobilinogen (U) [Mass/Vol] 1 mg/dL [facility] Laboratory - Hematology and Cell countsOrdered By: Dain Vaughn on 10-26-2024 Hemoglobin Ql (U) Moderate [facility] Laboratory - Specimen inform ationOrdered By: Dain Vaughn on 10-26-2024 Clarity (U) Clear [facility] Color (U) YELLOW [facility] Laboratory - UrinalysisOrder ed By: Dain Vaughn on 10-26-2024 Nitrite Ql (U) Negative [facility] Protein Ql (U) Trace [facility] No Panel InformationOrdered By: Dain Vaughn on 10-26-2024 Urine Leukocytes Positive [facility] Comment on above: trace Urine Non-Hemolyzed Blood Non-Hemolyzed [facility] Urgent Care Visit Reporton 0 10-26-2024 Urgent Care Visit Report Normal [facility] Urine cultureOrdered By: Estrada Vaughn on 10-26-2024 Bacteria identified Cx Nom (U) Presumptive E. coli Abnormal [facility] NATERAon 10-14-2024 NATURA SEE SCANNED REPORT Normal [facility] Comment on above: Performed By: #### L 900.0098 ####[facility] [address] [place], [address] Oncology Visit Reporton 05 Oncology Visit Report Normal [facility] [place] 15-3on 09-24-2024 CA 15-3 49.0 U/mL Abnormal 0.0-25.0 [facility] Comment on above: Result Comment: [employer] Electrochemiluminescence Immunoassay(ECLIA)Values obtained with different assay methods or kits cannotbe used interchangeably. Results cannot be interpreted asabsolute evidence of the presence or absence of malignantdisease.Performed at: [address] [id number] Director: Ervin Hitchcock PhD, Phone: [phone] Performed By: #### L 100.0100, L3100.5030, L3100.2300, L3100.5040, L500.4050 ####[facility] [address] [place], [place], [id number] [place] 27.29on 09-24-2024 CA 27.29 66.5 U/mL Abnormal 0.0-38.6 [facility] Comment on above: Result Comment: [employer] Immunochemiluminometric Methodology (ICMA)Values obtained with different assay methods or kits cannotbe used interchangeably. Results cannot be interpreted asabsolute evidence of the presence or absence of malignantdisease. Performed By: #### L 100.0100, L3100.5030, L3100.2300, L3100.5040, L500.4050 ####[facility] [address] [place], [address] Carcinoembryonic Antigenon 0 09-24-2024 CEA 0.9 ng/mL Normal 0.0-4.7 [facility] Comment on above: Result Comment: Nons mokers <3.9 Smokers <5.6[employer] Electrochemiluminescence Immunoassay(ECLIA)Values obtained with different assay methods or kitscannot be used interchangeably. Results cannot beinterpreted as absolute evidence of the presence orabsence of malignant disease. Performed By: #### L 100.0100, L3100.5030, L3100.2300, L3100.5040, L500.4050 ####[facility] [address] [place], [address] Absolute lymphocyte countOrd ered By: Genna Zuniga on 09-23-2024 Lymphocytes Auto (Unsp spec) [#/Vol] 2.23 10*3/uL 0.83-4.51 [facility] Absolute neutrophil countOrd ered By: Genna Zuniga on 09-23-2024 Neutrophils (Bld) [#/Vol] 4.7 10*3/uL 2.0-7.7 [facility] Anion gap in Serum or Plasma Ordered By: Genna Zuniga on 09-23-2024 Anion gap [Moles/Vol] 10 mmol/L 5-15 [facility] Automated lymphocyte count a s percentage of total leukocytesOrdered By: Genna Zuniga on 09-23-2024 Lymphocytes/100 WBC Auto (Unsp spec) 29.7 % -41 [facility] BUN/creatinine ratioOrdered By: Genna Zuniga on 09-23-2024 Urea nitrogen/Creatinine [Mass ratio] 32.8 mg/mg High 10-20 [facility] Basophil percentageOrdered B y: Genna Zuniga on 09-23-2024 Basophils/100 WBC (Bld) 0.3 % 0-1 [facility] Bilirubin, totalOrdered By: Genna Zuniga on 09-23-2024 Bilirubin [Mass/Vol] 0.30 mg/dL 0.00-1.30 [facility] CA 15-3Ordered By: Genna Saxena abach on 09-23-2024 CA 15-3 49.0 U/mL High 0.0-25.0 [facility] Comment on above: [employer] El ectrochemiluminescence Immunoassay(ECLIA)Values obtained with different assay methods or kits cannotbe used interchangeably. Results cannot be interpreted asabsolute evidence of the presence or absence of malignantdisease.Performed at: [address] [id number] Director: Ervin Hitchcock PhD, Phone: [phone] [place] .Ordered By: Genna fuentes on 09-23-2024 CA 27.29 66.5 U/mL High 0.0-38.6 [facility] Comment on above: [employer] Immu nochemiluminometric Methodology (ICMA)Values obtained with different assay methods or kits cannotbe used interchangeably. Results cannot be interpreted asabsolute evidence of the presence or absence of malignantdisease. CBC W/Diff, Automatedon 09-07 Absolute Lymph 2.23 X10 3/uL Normal 0.83-4.51 [facility] Comment on above: Performed By: #### L 100.0100, L3100.5030, L3100.2300, L3100.5040, L500.4050 ####[facility] [address] [place], [place], [id number] Absolute Neut 4.7 X10 3/uL Normal 2.0-7.7 [facility] Comment on above: Performed By: #### L 100.0100, L3100.5030, L3100.2300, L3100.5040, L500.4050 ####[facility] [address] [place], [address] Basophils/100 WBC (Bld) 0.3 % Normal 0-1 [facility] Comment on above: Performed By: #### L 100.0100, L3100.5030, L3100.2300, L3100.5040, L500.4050 ####[facility] [address] [place], [address] Eosinophils/100 WBC (Bld) 1.1 % Normal 0-5 [facility] Comment on above: Performed By: #### L 100.0100, L3100.5030, L3100.2300, L3100.5040, L500.4050 ####[facility] [address] [place], [address] Erythrocyte distribution width (RBC) [Ratio] 13.4 % Normal 11.6-14.6 [facility] Comment on above: Performed By: #### L 100.0100, L3100.5030, L3100.2300, L3100.5040, L500.4050 ####[facility] [address] [place], [address] Hematocrit (Bld) [Volume fraction] 37.2 % Normal 37-47 [facility] Comment on above: Performed By: #### L 100.0100, L3100.5030, L3100.2300, L3100.5040, L500.4050 ####[facility] [address] [place], [address] Hemoglobin (Bld) [Mass/Vol] 11.9 g/dL Low 12.0-15.0 [facility] Comment on above: Performed By: #### L 100.0100, L3100.5030, L3100.2300, L3100.5040, L500.4050 ####[facility] [address] [place], [address] IG% 0.300 Normal 0.0-0.9 [facility] Comment on above: Result Comment: IG% - Immature Granulocytes (promyelocytes, myelocytes andmetamyelocytes) > 1% indicates that a LEFT SHIFT is Present. Performed By: #### L 100.0100, L3100.5030, L3100.2300, L3100.5040, L500.4050 ####[facility] [address] [place], [address] Lymphocytes/100 WBC (Bld) 29.7 % Normal 19-41 [facility] Comment on above: Performed By: #### L 100.0100, L3100.5030, L3100.2300, L3100.5040, L500.4050 ####[facility] [address] [place], [address] MCH (RBC) [Entitic mass] 30.0 pg Normal 27.0-32.0 [facility] Comment on above: Performed By: #### L 100.0100, L3100.5030, L3100.2300, L3100.5040, L500.4050 ####[facility] [address] [place], [address] MCHC (RBC) [Mass/Vol] 32.0 g/dL Normal 32-36 [facility] Comment on above: Performed By: #### L 100.0100, L3100.5030, L3100.2300, L3100.5040, L500.4050 ####[facility] [address] [place], [address] MCV (RBC) [Entitic vol] 93.7 fL Normal 81-99 [facility] Comment on above: Performed By: #### L 100.0100, L3100.5030, L3100.2300, L3100.5040, L500.4050 ####[facility] [address] [place], [address] Monocytes/100 WBC (Bld) 6.5 % Normal 0-10 [facility] Comment on above: Performed By: #### L 100.0100, L3100.5030, L3100.2300, L3100.5040, L500.4050 ####[facility] [address] [place], [address] Neutrophils/100 WBC (Bld) 62.1 % Normal 47-70 [facility] Comment on above: Performed By: #### L 100.0100, L3100.5030, L3100.2300, L3100.5040, L500.4050 ####[facility] [address] [place], [address] Nucleated RBC (Bld) [#/Vol] 0 10*3/uL Normal 0-5 [facility] Comment on above: Performed By: #### L 100.0100, L3100.5030, L3100.2300, L3100.5040, L500.4050 ####[facility] [address] [place], [address] Platelet mean volume (Bld) [Entitic vol] 9.3 fL Normal 6.2-12.0 [facility] Comment on above: Performed By: #### L 100.0100, L3100.5030, L3100.2300, L3100.5040, L500.4050 ####[facility] [address] [place], [address] Platelets (Bld) [#/Vol] 227 10*3/uL Normal 150-450 [facility] Comment on above: Performed By: #### L 100.0100, L3100.5030, L3100.2300, L3100.5040, L500.4050 ####[facility] [address] [place], [address] RBC (Bld) [#/Vol] 3.97 10*6/uL Low 4.2-5.4 [facility] Comment on above: Performed By: #### L 100.0100, L3100.5030, L3100.2300, L3100.5040, L500.4050 ####[facility] [address] [place], [address] RDW SD 45.9 fl High 35.1-43.9 [facility] Comment on above: Performed By: #### L 100.0100, L3100.5030, L3100.2300, L3100.5040, L500.4050 ####[facility] [address] [place], [address] WBC (Bld) [#/Vol] 7.5 10*3/uL Normal 4.4-11.0 [facility] Comment on above: Performed By: #### L 100.0100, L3100.5030, L3100.2300, L3100.5040, L500.4050 ####[facility] [address] [place], [address] Carbon dioxide, total [Moles /volume] in Central venous bloodOrdered By: Genna Zuniga on 09-23-2024 CO2 [Moles/Vol] 25.9 mmol/L 21.0-32.0 [facility] Chloride assayOrdered By: Erwin Zuniga on 09-23-2024 Chloride [Moles/Vol] 105 mmol/L 98-108 [facility] Comprehensive Metabolic Prof ilon 09-23-2024 Albumin [Mass/Vol] 4.3 g/dL Normal 3.5-5.0 [facility] Comment on above: Performed By: #### L 100.0100, L3100.5030, L3100.2300, L3100.5040, L500.4050 ####[facility] [address] [place], [address] Albumin/Globulin [Mass ratio] 1.7 {ratio} Normal 0.9-2.4 [facility] Comment on above: Performed By: #### L 100.0100, L3100.5030, L3100.2300, L3100.5040, L500.4050 ####[facility] [address] [place], [address] ALK PHOS 93 U/L Normal 35-104 [facility] Comment on above: Performed By: #### L 100.0100, L3100.5030, L3100.2300, L3100.5040, L500.4050 ####[facility] [address] [place], [address] ALT [Catalytic activity/Vol] 17 U/L Normal <=34 [facility] Comment on above: Performed By: #### L 100.0100, L3100.5030, L3100.2300, L3100.5040, L500.4050 ####[facility] [address] [place], [address] AST [Catalytic activity/Vol] 24 U/L Normal <=31 [facility] Comment on above: Performed By: #### L 100.0100, L3100.5030, L3100.2300, L3100.5040, L500.4050 ####[facility] [address] [place], [address] Bilirubin [Mass/Vol] 0.30 mg/dL Normal 0.00-1.30 [facility] Comment on above: Performed By: #### L 100.0100, L3100.5030, L3100.2300, L3100.5040, L500.4050 ####[facility] [address] [place], [address] BUN/CRE 32.8 RATIO High 10-20 [facility] Comment on above: Performed By: #### L 100.0100, L3100.5030, L3100.2300, L3100.5040, L500.4050 ####[facility] [address] [place], [address] Calcium [Mass/Vol] 10.7 mg/dL Normal 7.6-11.0 [facility] Comment on above: Performed By: #### L 100.0100, L3100.5030, L3100.2300, L3100.5040, L500.4050 ####[facility] [address] [place], [address] Chloride [Moles/Vol] 105 mmol/L Normal 98-108 [facility] Comment on above: Performed By: #### L 100.0100, L3100.5030, L3100.2300, L3100.5040, L500.4050 ####[facility] [address] [place], [address] CO2 [Moles/Vol] 25.9 mmol/L Normal 21.0-32.0 [facility] Comment on above: Performed By: #### L 100.0100, L3100.5030, L3100.2300, L3100.5040, L500.4050 ####[facility] [address] [place], [address] Creatinine [Mass/Vol] 0.76 mg/dL Normal 0.70-1.20 [facility] Comment on above: Performed By: #### L 100.0100, L3100.5030, L3100.2300, L3100.5040, L500.4050 ####[facility] [address] [place], [address] ECRCL 104.87 ml/min Normal 50-250 [facility] Comment on above: Performed By: #### L 100.0100, L3100.5030, L3100.2300, L3100.5040, L500.4050 ####[facility] [address] [place], [address] GAP 10 Normal 5-15 [facility] Comment on above: Performed By: #### L 100.0100, L3100.5030, L3100.2300, L3100.5040, L500.4050 ####[facility] [address] [place], [address] GFR/1.73 sq M.predicted among non-blacks MDRD (S/P/Bld) [Vol rate/Area] 93 mL/min/{1.73_m2} Normal >60 [facility] Comment on above: Result Comment: mL/m in/1.73m2 CKD-EPI Creatinine Equation (2020) Performed By: #### L 100.0100, L3100.5030, L3100.2300, L3100.5040, L500.4050 ####[facility] [address] [place], [address] Globulin (S) [Mass/Vol] 2.5 g/dL Normal 2.2-4.2 [facility] Comment on above: Performed By: #### L 100.0100, L3100.5030, L3100.2300, L3100.5040, L500.4050 ####[facility] [address] [place], [address] Glucose [Mass/Vol] 107 mg/dL High 70-99 [facility] Comment on above: Performed By: #### L 100.0100, L3100.5030, L3100.2300, L3100.5040, L500.4050 ####[facility] [address] [place], [address] Potassium [Moles/Vol] 4.3 mmol/L Normal 3.3-5.1 [facility] Comment on above: Performed By: #### L 100.0100, L3100.5030, L3100.2300, L3100.5040, L500.4050 ####[facility] [address] [place], [address] Sodium [Moles/Vol] 141 mmol/L Normal 133-145 [facility] Comment on above: Performed By: #### L 100.0100, L3100.5030, L3100.2300, L3100.5040, L500.4050 ####[facility] [address] [place], [place], [id number] T PROT 6.7 g/dL Normal 5.9-8.4 [facility] Comment on above: Performed By: #### L 100.0100, L3100.5030, L3100.2300, L3100.5040, L500.4050 ####[facility] [address] [place], [address] Urea nitrogen [Mass/Vol] 25 mg/dL High 4-19 [facility] Comment on above: Performed By: #### L 100.0100, L3100.5030, L3100.2300, L3100.5040, L500.4050 ####[facility] [address] [place], [place], [address] Eosinophil percentageOrdered By: Genna Zuniga on 09-23-2024 Eosinophils/100 WBC (Bld) 1.1 % 0-5 [facility] Erythrocyte distribution wid th ratioOrdered By: Genna Zuniga on 09-23-2024 Erythrocyte distribution width (RBC) [Ratio] 13.4 % 11.6-14.6 [facility] Erythrocyte distribution wid th standard deviationOrdered By: Genna Zuniga on 09-23-2024 Erythrocyte distribution width (RBC) [Ratio] 45.9 fl High 35.1-43.9 [facility] Glomerular filtration rate ( GFR) estimation/1.73 sq m using serum, plasma, or whole bOrdered By: Genna Zuniga on 09-23-2024 GFR/1.73 sq M.predicted among non-blacks MDRD (S/P/Bld) [Vol rate/Area] 93 mL/min/{1.73_m2} >60 [facility] Comment on above: mL/min/1.73m2 CKD-EP I Creatinine Equation (2020) Hematocrit Auto (Bld) [Volum e fraction]Ordered By: Genna Zuniga on 09-23-2024 Hematocrit (Bld) [Volume fraction] 37.2 % 37-47 [facility] Hemoglobin measurementOrdere d By: Genna Zuniga on 09-23-2024 Hemoglobin (Bld) [Mass/Vol] 11.9 g/dL Low 12.0-15.0 [facility] Immature granulocytes/100 WB C Auto (Bld)Ordered By: Genna Zuniga on 09-23-2024 Immature granulocytes/100 WBC (Bld) 0.300 % 0.0-0.9 [facility] Comment on above: IG% - Immature Granu locytes (promyelocytes, myelocytes and metamyelocytes) > 1% indicates that a LEFT SHIFT is Present. Laboratory - Chemistry and C hemistry - challengeOrdered By: Genna Zuniga on 09-23-2024 AST [Catalytic activity/Vol] 24 U/L <32 [facility] MCV (mean corpuscular volume ) determinationOrdered By: Genna Zuniga on 09-23-2024 MCV (RBC) [Entitic vol] 93.7 fL 81-99 [facility] Mean corpuscular hemoglobin (MCH) determinationOrdered By: Genna Zuniga on 09-23-2024 MCH (RBC) [Entitic mass] 30.0 pg 27.0-32.0 [facility] Mean corpuscular hemoglobin concentration (MCHC) determinationOrdered By: Genna Zuniga on 09-23-2024 MCHC (RBC) [Mass/Vol] 32.0 g/dL 32-36 [facility] Mean platelet volume determi nationOrdered By: Genna Zuniga on 09-23-2024 Platelet mean volume (Bld) [Entitic vol] 9.3 fL 6.2-12.0 [facility] Monocyte percentageOrdered B y: Genna Zuniga on 09-23-2024 Monocytes/100 WBC (Bld) 6.5 % 0-10 [facility] Neutrophil percentageOrdered By: Genna Zuniga on 09-23-2024 Neutrophils/100 WBC (Bld) 62.1 % 47-70 [facility] Nucleated red blood cell per centageOrdered By: Genna Zuniga on 09-23-2024 Nucleated RBC/100 WBC (Bld) [Ratio] 0 % 0-5 [facility] Oncology Visit Reporton 09-07 Oncology Visit Report Normal [facility] Platelet countOrdered By: Erwin Zuniga on 09-23-2024 Platelets (Bld) [#/Vol] 227 10*3/uL 150-450 [facility] Potassium measurement (mass/ volume)Ordered By: Genna Zuniga on 09-23-2024 Potassium (Unsp spec) [Mass/Vol] 4.3 mmol/L 3.3-5.1 [facility] RBC Auto (Bld) [#/Vol]Ordere d By: Genna Zuniga on 09-23-2024 RBC (Bld) [#/Vol] 3.97 10*6/uL Low 4.2-5.4 [facility] Serum creatinine measurement (mass/volume)Ordered By: Genna Zuniga on 09-23-2024 Creatinine [Mass/Vol] 0.76 mg/dL 0.70-1.20 [facility] Serum globulin measurementOr dered By: Genna Zuniga on 09-23-2024 Globulin (S) [Mass/Vol] 2.5 g/dL 2.2-4.2 [facility] Serum glucose measurement (m ass/volume)Ordered By: Genna Zuniga on 09-23-2024 Glucose [Mass/Vol] 107 mg/dL High 70-99 [facility] Serum or plasma alanine alonzo otransferase (ALT) measurementOrdered By: Genna Zuniga on 09-23-2024 ALT [Catalytic activity/Vol] 17 U/L <35 [facility] Serum or plasma albumin paul urement (mass/volume)Ordered By: Genna Zuniga on 09-23-2024 Albumin [Mass/Vol] 4.3 g/dL 3.5-5.0 [facility] Serum or plasma albumin/glob ulin mass ratioOrdered By: Genna Zuniga on 09-23-2024 Albumin/Globulin [Mass ratio] 1.7 {ratio} 0.9-2.4 [facility] Serum or plasma alkaline ubaldo sphatase measurementOrdered By: Genna Zuniga on 09-23-2024 ALP [Catalytic activity/Vol] 93 U/L 35-104 [facility] Serum or plasma calcium paul urement (mass/volume)Ordered By: Genna Zuniga on 09-23-2024 Calcium [Mass/Vol] 10.7 mg/dL 7.6-11.0 [facility] Serum or plasma carcinoembry onic antigen measurement (mass/volume)Ordered By: Genna Zuniga on 09-23-2024 Carcinoembryonic Ag [Mass/Vol] 0.9 ng/mL 0.0-4.7 [facility] Comment on above: Nonsmokers <3.9 Smok ers <5.6[employer] Electrochemiluminescence Immunoassay(ECLIA)Values obtained with different assay methods or kitscannot be used interchangeably. Results cannot beinterpreted as absolute evidence of the presence orabsence of malignant disease. Serum or plasma urea nitroge n measurement (mass/volume)Ordered By: Genna Zuniga on 09-23-2024 Urea nitrogen [Mass/Vol] 25 mg/dL High 4-19 [facility] Sodium levelOrdered By: Genna Zuniga on 09-23-2024 Sodium [Moles/Vol] 141 mmol/L 133-145 [facility] Total proteinOrdered By: David Zuniga on 09-23-2024 Protein [Mass/Vol] 6.7 g/dL 5.9-8.4 [facility] White blood cell (WBC) count Ordered By: Genna Zuniga on 09-23-2024 WBC (Bld) [#/Vol] 7.5 10*3/uL 4.4-11.0 [facility] Venous Duplex US, Unilateral on 09-17-2024 Venous Duplex US, Unilateral Normal [facility] Venous duplex ultrasound rep ortOrdered By: Wyatt Patel on 09-17-2024 US Vein [facility] [address] [place] [address] Venous Duplex US, Unilateral 09/17/24 1457 MR#: [id number] Acct: [id number] Name: LISSETT RUSSELL Rep #:[id number] : 1970 54 From: Wyatt Patel MD Attending Dr: Dr. Dain Serrano MD Status: REG CLI Ordering Dr: Dain Serrano MD Date: 09/17/24 Location: [facility] Sex: F C Admitted: [...] Blue Alicia Performed By: Yazmin Anne RVT 09/17/24 7643 Date _ Wyatt Patel MD CC: Dr. Dain Serrano MD; LARA Gomez ~ Date Dictated: 09/17/24 1457 Date Transcribed: 09/17/24 719 [place] Apprentice: Signed [facility] Other Phone: Oncology Visit Reporton 08-08 Oncology Visit Report Normal [facility] Echocardiogram study reportO rdered By: Jesus Varma on 08-31-2024 Study report [facility] [address] [place] [address] ONC Echo Complete 08/31/24 1110 MR#: [id number] Acct: [id number] Name: LISSETT RUSSELL Rep #:[id number] : 1970 54 From: Jesus Zeng Attending Dr: Genna Zuniga MANAGER FIBER-C Status: REG CLI Ordering Dr: Genna Zuniga NP MANAGER [employer]ER-C Da te: 08/31/24 Location: [facility] Sex: F C Admitted: Reason For Study Reason For Study: [employer] Drug Therapy Procedure This was a 2D [...] (normal). Structurally normal valves. Ordering Physician: Genna Zuniga Referring Physician: Genna Zuniga Performed By: Seamus Carson RCS 08/31/24 1533 Date _ Jesus Varma MD CC: MANAGER FIBER-Amairani Zuniga; LARA Gomez ~ Date Dictated: 08/31/24 1110 Date Transcribed: 08/31/241532 [place] Apprentice: Signed [facility] Work Phone: ONC Echo Completeon 09-01-19 ONC Echo Complete Normal [facility] Bilirubin directOrdered By: Carly Carrasquillo on 08-17-2024 Bilirubin.direct [Mass/Vol] 0.14 mg/dL 0.00-0.30 [facility] Bilirubin, totalOrdered By: Carly Carrasquillo on 08-17-2024 Bilirubin [Mass/Vol] 0.29 mg/dL 0.00-1.30 [facility] Calculated very low density lipoprotein (VLDL) cholesterol measurementOrdered By: Carly Carrasquillo on 08-17-2024 Calculated very low density lipoprotein (VLDL) cholesterol measurement 45 mg/dL High 5-40 [facility] VLDL Cholesterol 45 mg/dL High - [facility] LDL calc ser/plasOrdered By: Carly Carrasquillo on 08-17-2024 Cholesterol in LDL [Mass/Vol] 60 mg/dL [facility] Comment on above: Uhpkqvxwdt=749-038 m g/dL & Higher Wiai=603 mg/dL or greater LDL Cholesterol, Calculated 60 mg/dL [facility] Comment on above: Akknzkojoi=688-962 m g/dL & Higher Eodq=166 mg/dL or greater Laboratory - Chemistry and C hemistry - challengeOrdered By: Carly Carrasquillo on 08-17-2024 AST [Catalytic activity/Vol] 34 U/L High <32 [facility] Lipid Profileon 08-17-2024 CHOL:HDL 2.92 Normal [facility] Comment on above: Performed By: #### L 500.3400, L500.4100 ####[facility] [address] [place], [place], [phone] Cholesterol [Mass/Vol] 159 mg/dL Normal <=200 [facility] Comment on above: Result Comment: Chol esterol level, Desirable <200 mg/dLBorderline high cholesterol 200-239 mg/dLHigh cholesterol >=240 mg/dLRecommendations of the NCEP Adult Treatment Panel for thefollowing risk-cutoff thresholds for the [place] Americanpulation. Performed By: #### L 500.3400, L500.4100 ####[facility] [address] [place], [place], [phone] Cholesterol in HDL [Mass/Vol] 55 mg/dL Normal [facility] Comment on above: Result Comment: Lisa onal Cholesterol Education Program (NCEP) guidelines:<40 mg/dL: Low HDL-cholesterol (major risk factor for CHD)>= 60 mg/dL: High HDL-cholesterol (negative risk factor forCHD)HDL-cholesterol is affected by a number of factors, e.g.smoking, exercise, hormones, sex and age. Performed By: #### L 500.3400, L500.4100 ####[facility] [address] [place], [place], [phone] Cholesterol in LDL [Mass/Vol] 60 mg/dL Normal [facility] Comment on above: Result Comment: Bord rdxkrl=590-347 mg/dL Higher Irzw=354 mg/dL or greater Performed By: #### L 500.3400, L500.4100 ####[facility] [address] [place], [address] Cholesterol in VLDL [Mass/Vol] 45 mg/dL High 5-40 [facility] Comment on above: Performed By: #### L 500.3400, L500.4100 ####[facility] [address] [place], [address] Triglyceride [Mass/Vol] 224 mg/dL High [facility] Comment on above: Result Comment: The drugs N-Acetylcysteine and Metamizole may falselydepress this assay.Normal range: <150 mg/dLBorderline High: 150-199 mg/dLHigh: 200-499 mg/dLVery High: >500 mg/dL Performed By: #### L 500.3400, L500.4100 ####[facility] [address] [place], [address] Liver Profileon 08-17-2024 Albumin [Mass/Vol] 4.4 g/dL Normal 3.5-5.0 [facility] Comment on above: Performed By: #### L 500.3400, L500.4100 ####[facility] [address] [place], [address] ALK PHOS 68 U/L Normal 35-104 [facility] Comment on above: Performed By: #### L 500.3400, L500.4100 ####[facility] [address] [place], [address] ALT [Catalytic activity/Vol] 30 U/L Normal <=34 [facility] Comment on above: Performed By: #### L 500.3400, L500.4100 ####[facility] [address] [place], [address] AST [Catalytic activity/Vol] 34 U/L High <=31 [facility] Comment on above: Performed By: #### L 500.3400, L500.4100 ####[facility] [address] [place], [address] Bilirubin [Mass/Vol] 0.29 mg/dL Normal 0.00-1.30 [facility] Comment on above: Performed By: #### L 500.3400, L500.4100 ####[facility] [address] [place], [address] Bilirubin.direct [Mass/Vol] 0.14 mg/dL Normal 0.00-0.30 [facility] Comment on above: Performed By: #### L 500.3400, L500.4100 ####[facility] [address] [place], [address] Globulin (S) [Mass/Vol] 2.6 g/dL Normal 2.2-4.2 [facility] Comment on above: Performed By: #### L 500.3400, L500.4100 ####[facility] [address] [place], [address] T PROT 7.0 g/dL Normal 5.9-8.4 [facility] Comment on above: Performed By: #### L 500.3400, L500.4100 ####[facility] [address] [place], [address] Screening total cholesterol/ high density lipoprotein (HDL) cholesterol ratioOrdered By: Carly Carrasquillo on 08-17-2024 Cholesterol.total/Chol esterol in HDL [Mass ratio] 2.92 {ratio} [facility] Serum globulin measurementOr dered By: Carly Carrasquillo on 08-17-2024 Globulin (S) [Mass/Vol] 2.6 g/dL 2.2-4.2 [facility] Serum or plasma alanine alonzo otransferase (ALT) measurementOrdered By: Carly Carrasquillo on 08-17-2024 ALT [Catalytic activity/Vol] 30 U/L <35 [facility] Serum or plasma albumin paul urement (mass/volume)Ordered By: Carly Carrasquillo on 08-17-2024 Albumin [Mass/Vol] 4.4 g/dL 3.5-5.0 [facility] Serum or plasma alkaline ubaldo sphatase measurementOrdered By: Carly Carrasquillo on 08-17-2024 ALP [Catalytic activity/Vol] 68 U/L 35-104 [facility] Serum or plasma cholesterol in HDL measurement (mass/volume)Ordered By: Carly Carrasquillo on 08-17-2024 Cholesterol in HDL [Mass/Vol] 55 mg/dL >40 [facility] Comment on above: National Cholesterol Education Program (NCEP) guidelines:<40 mg/dL: Low HDL-cholesterol (major risk factor for CHD)>= 60 mg/dL: High HDL-cholesterol (negative risk factor for CHD)HDL-cholesterol is affected by a number of factors, e.g. smoking, exercise, hormones, sex and age. Serum or plasma cholesterol measurement (mass/volume)Ordered By: Carly Carrasquillo on 08-17-2024 Cholesterol [Mass/Vol] 159 mg/dL <201 [facility] Comment on above: Cholesterol level, D esirable <200 mg/dLBorderline high cholesterol 200-239 mg/dLHigh cholesterol >=240 mg/dLRecommendations of the NCEP Adult Treatment Panel for the following risk-cutoff thresholds for the [place] population. Total proteinOrdered By: Jeff Carrasquillo on 08-17-2024 Protein [Mass/Vol] 7.0 g/dL 5.9-8.4 [facility] Triglycerides measurementOrd ered By: Carly Carrasquillo on 08-17-2024 Triglyceride [Mass/Vol] 224 mg/dL High <199 [facility] Comment on above: The drugs N-Acetylcy steine and Metamizole may falsely depress this assay. Normal range: <150 mg/dLBorderline High: 150-199 mg/dLHigh: 200-499 mg/dLVery High: >500 mg/dL Absolute neutrophil countOrd ered By: Genna Zuniga on 08-12-2024 Neutrophils (Bld) [#/Vol] 4.5 10*3/uL 2.0-7.7 [facility] Anion gap in Serum or Plasma Ordered By: Genna Aleksander on 08-12-2024 Anion gap [Moles/Vol] 11 mmol/L 5-15 [facility] BUN/creatinine ratioOrdered By: Genna Aleksander on 08-12-2024 Urea nitrogen/Creatinine [Mass ratio] 25.6 mg/mg High 10-20 [facility] Basophil percentageOrdered B y: Genna Aleksander on 08-12-2024 Basophils/100 WBC (Bld) 0.4 % 0-1 [facility] Bilirubin, totalOrdered By: Genna Aleksander on 08-12-2024 Bilirubin [Mass/Vol] mg/dL 0.00-1.30 [facility] CBC W/Diff, Automatedon Absolute Lymph 2.41 X10 3/uL Normal 0.83-4.51 [facility] Comment on above: Order Comment: DR. Stephen SERRANO ORDERED BMP, CBCD, ALBUMINNP.T ALEKSANDER ORDERED CMP, CBCD, Performed By: #### L 500.4050, L100.0100 ####[facility] [address] [place], [address] Absolute Neut 4.5 X10 3/uL Normal 2.0-7.7 [facility] Comment on above: Order Comment: DR. Stephen SERRANO ORDERED BMP, CBCD, ALBUMINNP.T ALEKSANDER ORDERED CMP, CBCD, Performed By: #### L 500.4050, L100.0100 ####[facility] [address] [place], [address] Basophils/100 WBC (Bld) 0.4 % Normal 0-1 [facility] Comment on above: Order Comment: DR. Stephen SERRANO ORDERED BMP, CBCD, ALBUMINNP.T ALEKSANDER ORDERED CMP, CBCD, Performed By: #### L 500.4050, L100.0100 ####[facility] [address] [place], [address] Eosinophils/100 WBC (Bld) 0.9 % Normal 0-5 [facility] Comment on above: Order Comment: DR. Stephen SERRANO ORDERED BMP, CBCD, ALBUMINNP.T ALEKSANDER ORDERED CMP, CBCD, Performed By: #### L 500.4050, L100.0100 ####[facility] [address] [place], [address] Erythrocyte distribution width (RBC) [Ratio] 13.6 % Normal 11.6-14.6 [facility] Comment on above: Order Comment: DR. Stephne SERRANO ORDERED BMP, CBCD, ALBUMINNP.T ALEKSANDER ORDERED CMP, CBCD, Performed By: #### L 500.4050, L100.0100 ####[facility] [address] [place], [address] Hematocrit (Bld) [Volume fraction] 40.5 % Normal 37-47 [facility] Comment on above: Order Comment: DR. Stephen SERRANO ORDERED BMP, CBCD, ALBUMINNP.T ALEKSANDER ORDERED CMP, CBCD, Performed By: #### L 500.4050, L100.0100 ####[facility] [address] [place], [address] Hemoglobin (Bld) [Mass/Vol] 13.4 g/dL Normal 12.0-15.0 [facility] Comment on above: Order Comment: DR. Stephen SERRANO ORDERED BMP, CBCD, ALBUMINNP.T ALEKSANDER ORDERED CMP, CBCD, Performed By: #### L 500.4050, L100.0100 ####[facility] [address] [place], [address] IG% 0.400 Normal 0.0-0.9 [facility] Comment on above: Order Comment: DR. Stephen SERRANO ORDERED BMP, CBCD, ALBUMINNP.T ALEKSANDER ORDERED CMP, CBCD, Result Comment: IG% - Immature Granulocytes (promyelocytes, myelocytes andmetamyelocytes) > 1% indicates that a LEFT SHIFT is Present. Performed By: #### L 500.4050, L100.0100 ####[facility] [address] [place], [address] Lymphocytes/100 WBC (Bld) 31.7 % Normal 19-41 [facility] Comment on above: Order Comment: DR. Stephen SERRANO ORDERED BMP, CBCD, ALBUMINNP.T ALEKSANDER ORDERED CMP, CBCD, Performed By: #### L 500.4050, L100.0100 ####[facility] [address] [place], [address] MCH (RBC) [Entitic mass] 31.1 pg Normal 27.0-32.0 [facility] Comment on above: Order Comment: DR. Stephen SERRANO ORDERED BMP, CBCD, ALBUMINNP.T ALEKSANDER ORDERED CMP, CBCD, Performed By: #### L 500.4050, L100.0100 ####[facility] [address] [place], [address] MCHC (RBC) [Mass/Vol] 33.1 g/dL Normal 32-36 [facility] Comment on above: Order Comment: DR. Stephen SERRANO ORDERED BMP, CBCD, ALBUMINNP.T ALEKSANDER ORDERED CMP, CBCD, Performed By: #### L 500.4050, L100.0100 ####[facility] [address] [place], [address] MCV (RBC) [Entitic vol] 94.0 fL Normal 81-99 [facility] Comment on above: Order Comment: DR. Stephen SERRANO ORDERED BMP, CBCD, ALBUMINNP.T ALEKSANDER ORDERED CMP, CBCD, Performed By: #### L 500.4050, L100.0100 ####[facility] [address] [place], [address] Monocytes/100 WBC (Bld) 7.8 % Normal 0-10 [facility] Comment on above: Order Comment: DR. Stephen SERRANO ORDERED BMP, CBCD, ALBUMINNP.T ALEKSANDER ORDERED CMP, CBCD, Performed By: #### L 500.4050, L100.0100 ####[facility] [address] [place], [address] Neutrophils/100 WBC (Bld) 58.8 % Normal 47-70 [facility] Comment on above: Order Comment: DR. Stephen SERRANO ORDERED BMP, CBCD, ALBUMINNP.T ALEKSANDER ORDERED CMP, CBCD, Performed By: #### L 500.4050, L100.0100 ####[facility] [address] [place], [address] Nucleated RBC (Bld) [#/Vol] 0 10*3/uL Normal 0-5 [facility] Comment on above: Order Comment: DR. Stephen SERRANO ORDERED BMP, CBCD, ALBUMINNP.T ALEKSANDER ORDERED CMP, CBCD, Performed By: #### L 500.4050, L100.0100 ####[facility] [address] [place], [address] Platelet mean volume (Bld) [Entitic vol] 9.7 fL Normal 6.2-12.0 [facility] Comment on above: Order Comment: DR. Stephen SERRANO ORDERED BMP, CBCD, ALBUMINNP.T ALEKSANDER ORDERED CMP, CBCD, Performed By: #### L 500.4050, L100.0100 ####[facility] [address] [place], [address] Platelets (Bld) [#/Vol] 205 10*3/uL Normal 150-450 [facility] Comment on above: Order Comment: DR. Stephen SERRANO ORDERED BMP, CBCD, ALBUMINNP.T ALEKSANDER ORDERED CMP, CBCD, Performed By: #### L 500.4050, L100.0100 ####[facility] [address] [place], [address] RBC (Bld) [#/Vol] 4.31 10*6/uL Normal 4.2-5.4 [facility] Comment on above: Order Comment: DR. Stephen SERRANO ORDERED BMP, CBCD, ALBUMINNP.T ALEKSANDER ORDERED CMP, CBCD, Performed By: #### L 500.4050, L100.0100 ####[facility] [address] [place], [address] RDW SD 47.0 fl High 35.1-43.9 [facility] Comment on above: Order Comment: DR. Stephen SERRANO ORDERED BMP, CBCD, ALBUMINNP.T ALEKSANDER ORDERED CMP, CBCD, Performed By: #### L 500.4050, L100.0100 ####[facility] [address] [place], [address] WBC (Bld) [#/Vol] 7.6 10*3/uL Normal 4.4-11.0 [facility] Comment on above: Order Comment: DR. Stephen SERRANO ORDERED BMP, CBCD, ALBUMINNP.T ALEKSANDER ORDERED CMP, CBCD, Performed By: #### L 500.4050, L100.0100 ####[facility] [address] [place], [address] Carbon dioxide, total [Moles /volume] in Central venous bloodOrdered By: Genna Zuniga on 08-12-2024 CO2 [Moles/Vol] 23.1 mmol/L 21.0-32.0 [facility] Chloride assayOrdered By: Ty ra Zuniga on 08-12-2024 Chloride [Moles/Vol] 105 mmol/L 98-108 [facility] Comprehensive Metabolic Prof ilon 08-12-2024 Albumin [Mass/Vol] 4.3 g/dL Normal 3.5-5.0 [facility] Comment on above: Order Comment: DR. Stephen SERRANO ORDERED BMP, CBCD, ALBUMINNP.T ALEKSANDER ORDERED CMP, CBCD, Performed By: #### L 500.4050, L100.0100 ####[facility] [address] [place], [address] Albumin/Globulin [Mass ratio] 1.7 {ratio} Normal 0.9-2.4 [facility] Comment on above: Order Comment: DR. Stephen SERRANO ORDERED BMP, CBCD, ALBUMINNP.T ALEKSANDER ORDERED CMP, CBCD, Performed By: #### L 500.4050, L100.0100 ####[facility] [address] [place], [address] ALK PHOS 62 U/L Normal 35-104 [facility] Comment on above: Order Comment: DR. Stephen SERRANO ORDERED BMP, CBCD, ALBUMINNP.T ALEKSANDER ORDERED CMP, CBCD, Performed By: #### L 500.4050, L100.0100 ####[facility] [address] [place], [address] ALT [Catalytic activity/Vol] 37 U/L High <=34 [facility] Comment on above: Order Comment: DR. Stephen SERRANO ORDERED BMP, CBCD, ALBUMINNP.T ALEKSANDER ORDERED CMP, CBCD, Performed By: #### L 500.4050, L100.0100 ####[facility] [address] [place], [address] AST [Catalytic activity/Vol] 39 U/L High <=31 [facility] Comment on above: Order Comment: DR. Stephen SERRANO ORDERED BMP, CBCD, ALBUMINNP.T ALEKSANDER ORDERED CMP, CBCD, Result Comment: Hemo lysis present, Results??could be affected.?? Performed By: #### L 500.4050, L100.0100 ####[facility] [address] [place], [address] BUN/CRE 25.6 RATIO High 10-20 [facility] Comment on above: Order Comment: DR. Stephen SERRANO ORDERED BMP, CBCD, ALBUMINNP.T ALEKSANDER ORDERED CMP, CBCD, Performed By: #### L 500.4050, L100.0100 ####[facility] [address] [place], [address] Calcium [Mass/Vol] 10.4 mg/dL Normal 7.6-11.0 [facility] Comment on above: Order Comment: DR. Stephen SERRANO ORDERED BMP, CBCD, ALBUMINNP.T ALEKSANDER ORDERED CMP, CBCD, Performed By: #### L 500.4050, L100.0100 ####[facility] [address] [place], [address] Chloride [Moles/Vol] 105 mmol/L Normal 98-108 [facility] Comment on above: Order Comment: DR. Stephen SERRANO ORDERED BMP, CBCD, ALBUMINNP.T ALEKSANDER ORDERED CMP, CBCD, Performed By: #### L 500.4050, L100.0100 ####[facility] [address] [place], [address] CO2 [Moles/Vol] 23.1 mmol/L Normal 21.0-32.0 [facility] Comment on above: Order Comment: DR. Stephen SERRANO ORDERED BMP, CBCD, ALBUMINNP.T ALEKSANDER ORDERED CMP, CBCD, Performed By: #### L 500.4050, L100.0100 ####[facility] [address] [place], [address] Creatinine [Mass/Vol] 0.72 mg/dL Normal 0.70-1.20 [facility] Comment on above: Order Comment: DR. Stephen SERRANO ORDERED BMP, CBCD, ALBUMINNP.T ALEKSANDER ORDERED CMP, CBCD, Performed By: #### L 500.4050, L100.0100 ####[facility] [address] [place], [address] ECRCL 112.35 ml/min Normal 50-250 [facility] Comment on above: Order Comment: DR. Stephen SERRANO ORDERED BMP, CBCD, ALBUMINNP.T ALEKSANDER ORDERED CMP, CBCD, Performed By: #### L 500.4050, L100.0100 ####[facility] [address] [place], [address] GAP 11 Normal 5-15 [facility] Comment on above: Order Comment: DR. Stephen SERRANO ORDERED BMP, CBCD, ALBUMINNP.T ALEKSANDER ORDERED CMP, CBCD, Performed By: #### L 500.4050, L100.0100 ####[facility] [address] [place], [address] GFR/1.73 sq M.predicted among non-blacks MDRD (S/P/Bld) [Vol rate/Area] 100 mL/min/{1.73_m2} Normal >60 [facility] Comment on above: Order Comment: DR. Stephen SERRANO ORDERED BMP, CBCD, ALBUMINNP.T ALEKSANDER ORDERED CMP, CBCD, Result Comment: mL/m in/1.73m2 CKD-EPI Creatinine Equation (2020) Performed By: #### L 500.4050, L100.0100 ####[facility] [address] [place], [address] Globulin (S) [Mass/Vol] 2.5 g/dL Normal 2.2-4.2 [facility] Comment on above: Order Comment: DR. Stephen SERRANO ORDERED BMP, CBCD, ALBUMINNP.T ALEKSANDER ORDERED CMP, CBCD, Performed By: #### L 500.4050, L100.0100 ####[facility] [address] [place], [address] Glucose [Mass/Vol] 103 mg/dL High 70-99 [facility] Comment on above: Order Comment: DR. Stephen SERRANO ORDERED BMP, CBCD, ALBUMINNP.T ALEKSANDER ORDERED CMP, CBCD, Performed By: #### L 500.4050, L100.0100 ####[facility] [address] [place], [address] Potassium [Moles/Vol] 4.2 mmol/L Normal 3.3-5.1 [facility] Comment on above: Order Comment: DR. Stephen SERRANO ORDERED BMP, CBCD, ALBUMINNP.T ALEKSANDER ORDERED CMP, CBCD, Result Comment: Hemo lysis present, Results??could be affected.?? Performed By: #### L 500.4050, L100.0100 ####[facility] [address] [place], [address] Sodium [Moles/Vol] 140 mmol/L Normal 133-145 [facility] Comment on above: Order Comment: DR. Stephen SERRANO ORDERED BMP, CBCD, ALBUMINNP.T ALEKSANDER ORDERED CMP, CBCD, Performed By: #### L 500.4050, L100.0100 ####[facility] [address] [place], [address] T BILI < 0.15 Normal 0.00-1.30 [facility] Comment on above: Order Comment: DR. Stephen SERRANO ORDERED BMP, CBCD, ALBUMINNP.T ALEKSANDER ORDERED CMP, CBCD, Performed By: #### L 500.4050, L100.0100 ####[facility] [address] [place], [address] T PROT 6.8 g/dL Normal 5.9-8.4 [facility] Comment on above: Order Comment: DR. Stephen SERRANO ORDERED BMP, CBCD, ALBUMINNP.T ALEKSANDER ORDERED CMP, CBCD, Performed By: #### L 500.4050, L100.0100 ####[facility] [address] [place], [address] Urea nitrogen [Mass/Vol] 18 mg/dL Normal 4-19 [facility] Comment on above: Order Comment: DR. Stephen SERRANO ORDERED BMP, CBCD, ALBUMINNP.T ALEKSANDER ORDERED CMP, CBCD, Performed By: #### L 500.4050, L100.0100 ####[facility] [address] [place], [address] Eosinophil percentageOrdered By: Genna Aleksander on 08-12-2024 Eosinophils/100 WBC (Bld) 0.9 % 0-5 [facility] Erythrocyte distribution wid th ratioOrdered By: Genna Zuniga on 08-12-2024 Erythrocyte distribution width (RBC) [Ratio] 13.6 % 11.6-14.6 [facility] Erythrocyte distribution wid th standard deviationOrdered By: Genna Zuniga on 08-12-2024 Erythrocyte distribution width (RBC) [Entitic vol] 47.0 fL High 35.1-43.9 [facility] Estimation of creatinine suzanne aranceOrdered By: Genna Zuniga on 08-12-2024 Estimated Creatinine Clearance Calc 112.35 ml/min 50-250 [facility] Extremity Lower without Cont raon 08-12-2024 Extremity Lower without Contra Normal [facility] GFR/1.73 sq M.predicted demetris g non-blacks MDRD (S/P/Bld) [Vol rate/Area]Ordered By: Genna Zuniga on 08-12-2024 Estimated GFR (MDRD) Non-Af Amer 100 >60 [facility] Comment on above: mL/min/1.73m2 CKD-EP I Creatinine Equation (2020) Hematocrit Auto (Bld) [Volum e fraction]Ordered By: Genna Zuniga on 08-12-2024 Hematocrit (Bld) [Volume fraction] 40.5 % 37-47 [facility] Hemoglobin measurementOrdere d By: Genna Zuniga on 08-12-2024 Hemoglobin (Bld) [Mass/Vol] 13.4 g/dL 12.0-15.0 [facility] Immature granulocytes/100 WB C Auto (Bld)Ordered By: Genna Zuniga on 08-12-2024 Immature granulocytes/100 WBC (Bld) 0.400 % 0.0-0.9 [facility] Comment on above: IG% - Immature Granu locytes (promyelocytes, myelocytes and metamyelocytes) > 1% indicates that a LEFT SHIFT is Present. Laboratory - Chemistry and C hemistry - challengeOrdered By: Genna Zuniga on 08-12-2024 AST [Catalytic activity/Vol] 39 U/L High <32 [facility] Comment on above: Hemolysis present, R esults could be affected. Lymphocytes Auto (Unsp spec) [#/Vol]Ordered By: Genna Zuniga on 08-12-2024 Lymphocytes (Bld) [#/Vol] 2.41 10*3/uL 0.83-4.51 [facility] Lymphocytes/100 WBC Auto (Un sp spec)Ordered By: Genna StricklandAleksander on 08-12-2024 Lymphocytes/100 WBC (Bld) 31.7 % 19-41 [facility] MCV (mean corpuscular volume ) determinationOrdered By: Genna StricklandAleksander on 08-12-2024 MCV (RBC) [Entitic vol] 94.0 fL 81-99 [facility] Mean corpuscular hemoglobin (MCH) determinationOrdered By: Genna StricklandAleksander on 08-12-2024 MCH (RBC) [Entitic mass] 31.1 pg 27.0-32.0 [facility] Mean corpuscular hemoglobin concentration (MCHC) determinationOrdered By: Genna StricklandAleksander on 08-12-2024 MCHC (RBC) [Mass/Vol] 33.1 g/dL 32-36 [facility] Mean platelet volume determi nationOrdered By: Genna StricklandAleksander on 08-12-2024 Platelet mean volume (Bld) [Entitic vol] 9.7 fL 6.2-12.0 [facility] Monocyte percentageOrdered B y: Genna Zuniga on 08-12-2024 Monocytes/100 WBC (Bld) 7.8 % 0-10 [facility] Neutrophil percentageOrdered By: Genna StricklandAleksander on 08-12-2024 Neutrophils/100 WBC (Bld) 58.8 % 47-70 [facility] Nucleated red blood cell per centageOrdered By: Genna StricklandAleksander on 08-12-2024 Nucleated RBC/100 WBC (Bld) [Ratio] 0 % 0-5 [facility] Oncology Visit Reporton Oncology Visit Report Normal [facility] Platelet countOrdered By: Erwin Zuniga on 08-12-2024 Platelets (Bld) [#/Vol] 205 10*3/uL 150-450 [facility] Potassium (Unsp spec) [Mass/ Vol]Ordered By: Genna Zuniga on 08-12-2024 Potassium [Moles/Vol] 4.2 mmol/L 3.3-5.1 [facility] Comment on above: Hemolysis present, R esults could be affected. RBC Auto (Bld) [#/Vol]Ordere d By: Genna Zuniga on 08-12-2024 RBC (Bld) [#/Vol] 4.31 10*6/uL 4.2-5.4 [facility] Serum creatinine measurement (mass/volume)Ordered By: Genna Zuniga on 08-12-2024 Creatinine [Mass/Vol] 0.72 mg/dL 0.70-1.20 [facility] Serum globulin measurementOr dered By: Genna Zuniga on 08-12-2024 Globulin (S) [Mass/Vol] 2.5 g/dL 2.2-4.2 [facility] Serum glucose measurement (m ass/volume)Ordered By: Genna Zuniga on 08-12-2024 Glucose [Mass/Vol] 103 mg/dL High 70-99 [facility] Serum or plasma alanine alonzo otransferase (ALT) measurementOrdered By: Genna Zuniga on 08-12-2024 ALT [Catalytic activity/Vol] 37 U/L High <35 [facility] Serum or plasma albumin paul urement (mass/volume)Ordered By: Genna Zuniga on 08-12-2024 Albumin [Mass/Vol] 4.3 g/dL 3.5-5.0 [facility] Serum or plasma albumin/glob ulin mass ratioOrdered By: Genna Zuniga on 08-12-2024 Albumin/Globulin [Mass ratio] 1.7 {ratio} 0.9-2.4 [facility] Serum or plasma alkaline ubaldo sphatase measurementOrdered By: Genna Zuniga on 08-12-2024 ALP [Catalytic activity/Vol] 62 U/L 35-104 [facility] Serum or plasma calcium paul urement (mass/volume)Ordered By: Genna Zuniga on 08-12-2024 Calcium [Mass/Vol] 10.4 mg/dL 7.6-11.0 [facility] Serum or plasma urea nitroge n measurement (mass/volume)Ordered By: Genna Zuniga on 08-12-2024 Urea nitrogen [Mass/Vol] 18 mg/dL 4-19 [facility] Sodium levelOrdered By: Gnena Zuniga on 08-12-2024 Sodium [Moles/Vol] 140 mmol/L 133-145 [facility] Total proteinOrdered By: David Zuniga on 08-12-2024 Protein [Mass/Vol] 6.8 g/dL 5.9-8.4 [facility] White blood cell (WBC) count Ordered By: Genna Zuniga on 08-12-2024 WBC (Bld) [#/Vol] 7.6 10*3/uL 4.4-11.0 [facility] Breast Limited Unilateralon 07-22-2024 Breast Limited Unilateral Normal [facility] Oncology Visit Reporton 07-10 Oncology Visit Report Normal [facility] Breast Limited Unilateralon 07-05-2024 Breast Limited Unilateral Normal [facility] CA 15-3on 07-02-2024 CA 15-3 43.5 U/mL Abnormal 0.0-25.0 [facility] Comment on above: Result Comment: [employer] Electrochemiluminescence Immunoassay(ECLIA)Values obtained with different assay methods or kits cannotbe used interchangeably. Results cannot be interpreted asabsolute evidence of the presence or absence of malignantdisease.Performed at: [facility] [id number] Director: Ervin Hitchcock PhD, Phone: [phone] Performed By: #### L 504.2610, L100.0100, L3100.2300, L3100.5040, L500.4050, L3100.5030 ####[facility] [address] [place], [address] CA 27.29on 07-02-2024 CA 27.29 57.2 U/mL Abnormal 0.0-38.6 [facility] Comment on above: Result Comment: [employer] Immunochemiluminometric Methodology (ICMA)Values obtained with different assay methods or kits cannotbe used interchangeably. Results cannot be interpreted asabsolute evidence of the presence or absence of malignantdisease. Performed By: #### L 504.2610, L100.0100, L3100.2300, L3100.5040, L500.4050, L3100.5030 ####[facility] [address] [place], [place], [id number] Carcinoembryonic Antigenon 0 07-02-2024 CEA 1.1 ng/mL Normal 0.0-4.7 [facility] Comment on above: Result Comment: Nons mokers <3.9 Smokers <5.6[employer] Electrochemiluminescence Immunoassay(ECLIA)Values obtained with different assay methods or kitscannot be used interchangeably. Results cannot beinterpreted as absolute evidence of the presence orabsence of malignant disease. Performed By: #### L 504.2610, L100.0100, L3100.2300, L3100.5040, L500.4050, L3100.5030 ####[facility] [address] [facility] [address] [place], [place], [id number] CA 15-3Ordered By: Cristóbal smart on 07-01-2024 CA 15-3 Antigen 43.5 U/mL High 0.0-25.0 [facility] Comment on above: [employer] El ectrochemiluminescence Immunoassay(ECLIA)Values obtained with different assay methods or kits cannotbe used interchangeably. Results cannot be interpreted asabsolute evidence of the presence or absence of malignantdisease.Performed at: [address] [id number] Director: Ervin Hitchcock PhD, Phone: [phone] CA 27.29Ordered By: Cristóbal bolivar on 07-01-2024 CA 27.29 57.2 U/mL High 0.0-38.6 [facility] Comment on above: [employer] Immu nochemiluminometric Methodology (ICMA)Values obtained with different assay methods or kits cannotbe used interchangeably. Results cannot be interpreted asabsolute evidence of the presence or absence of malignantdisease. CBC W/Diff, Automatedon 06-10 Absolute Lymph 2.67 X10 3/uL Normal 0.83-4.51 [facility] Comment on above: Performed By: #### L 504.2610, L100.0100, L3100.2300, L3100.5040, L500.4050, L3100.5030 ####[facility] [address] [place], [address] Absolute Neut 4.4 X10 3/uL Normal 2.0-7.7 [facility] Comment on above: Performed By: #### L 504.2610, L100.0100, L3100.2300, L3100.5040, L500.4050, L3100.5030 ####[facility] [address] [place], [address] Basophils/100 WBC (Bld) 0.4 % Normal 0-1 [facility] Comment on above: Performed By: #### L 504.2610, L100.0100, L3100.2300, L3100.5040, L500.4050, L3100.5030 ####[facility] [address] [place], [address] Eosinophils/100 WBC (Bld) 0.8 % Normal 0-5 [facility] Comment on above: Performed By: #### L 504.2610, L100.0100, L3100.2300, L3100.5040, L500.4050, L3100.5030 ####[facility] [address] [place], [address] Erythrocyte distribution width (RBC) [Ratio] 13.8 % Normal 11.6-14.6 [facility] Comment on above: Performed By: #### L 504.2610, L100.0100, L3100.2300, L3100.5040, L500.4050, L3100.5030 ####[facility] [facility] [address] [place], [address] Hematocrit (Bld) [Volume fraction] 39.4 % Normal 37-47 [facility] Comment on above: Performed By: #### L 504.2610, L100.0100, L3100.2300, L3100.5040, L500.4050, L3100.5030 ####[facility] [address] [place], [address] Hemoglobin (Bld) [Mass/Vol] 12.8 g/dL Normal 12.0-15.0 [facility] Comment on above: Performed By: #### L 504.2610, L100.0100, L3100.2300, L3100.5040, L500.4050, L3100.5030 ####[facility] [address] [place], [address] IG% 0.300 Normal 0.0-0.9 [facility] Comment on above: Result Comment: IG% - Immature Granulocytes (promyelocytes, myelocytes andmetamyelocytes) > 1% indicates that a LEFT SHIFT is Present. Performed By: #### L 504.2610, L100.0100, L3100.2300, L3100.5040, L500.4050, L3100.5030 ####[facility] [address] [place], [address] Lymphocytes/100 WBC (Bld) 34.6 % Normal 19-41 [facility] Comment on above: Performed By: #### L 504.2610, L100.0100, L3100.2300, L3100.5040, L500.4050, L3100.5030 ####[facility] [address] [place], [address] MCH (RBC) [Entitic mass] 30.2 pg Normal 27.0-32.0 [facility] Comment on above: Performed By: #### L 504.2610, L100.0100, L3100.2300, L3100.5040, L500.4050, L3100.5030 ####[facility] [address] [place], [address] MCHC (RBC) [Mass/Vol] 32.5 g/dL Normal 32-36 [facility] Comment on above: Performed By: #### L 504.2610, L100.0100, L3100.2300, L3100.5040, L500.4050, L3100.5030 ####[facility] [address] [place], [address] MCV (RBC) [Entitic vol] 92.9 fL Normal 81-99 [facility] Comment on above: Performed By: #### L 504.2610, L100.0100, L3100.2300, L3100.5040, L500.4050, L3100.5030 ####[facility] [address] [place], [address] Monocytes/100 WBC (Bld) 6.4 % Normal 0-10 [facility] Comment on above: Performed By: #### L 504.2610, L100.0100, L3100.2300, L3100.5040, L500.4050, L3100.5030 ####[facility] [address] [place], [address] Neutrophils/100 WBC (Bld) 57.5 % Normal 47-70 [facility] Comment on above: Performed By: #### L 504.2610, L100.0100, L3100.2300, L3100.5040, L500.4050, L3100.5030 ####[facility] [address] [place], [address] Nucleated RBC (Bld) [#/Vol] 0 10*3/uL Normal 0-5 [facility] Comment on above: Performed By: #### L 504.2610, L100.0100, L3100.2300, L3100.5040, L500.4050, L3100.5030 ####[facility] [address] [place], [address] Platelet mean volume (Bld) [Entitic vol] 9.0 fL Normal 6.2-12.0 [facility] Comment on above: Performed By: #### L 504.2610, L100.0100, L3100.2300, L3100.5040, L500.4050, L3100.5030 ####[facility] [address] [place], [address] Platelets (Bld) [#/Vol] 224 10*3/uL Normal 150-450 [facility] Comment on above: Performed By: #### L 504.2610, L100.0100, L3100.2300, L3100.5040, L500.4050, L3100.5030 ####[facility] [address] [place], [address] RBC (Bld) [#/Vol] 4.24 10*6/uL Normal 4.2-5.4 [facility] Comment on above: Performed By: #### L 504.2610, L100.0100, L3100.2300, L3100.5040, L500.4050, L3100.5030 ####[facility] [address] [place], [address] RDW SD 46.6 fl High 35.1-43.9 [facility] Comment on above: Performed By: #### L 504.2610, L100.0100, L3100.2300, L3100.5040, L500.4050, L3100.5030 ####[facility] [address] [place], [address] WBC (Bld) [#/Vol] 7.7 10*3/uL Normal 4.4-11.0 [facility] Comment on above: Performed By: #### L 504.2610, L100.0100, L3100.2300, L3100.5040, L500.4050, L3100.5030 ####[facility] [address] [place], [address] Comprehensive Metabolic Prof ilon 07-01-2024 Albumin [Mass/Vol] 3.5 g/dL Normal 3.2-5.0 [facility] Comment on above: Order Comment: 1 Performed By: #### L 504.2610, L100.0100, L3100.2300, L3100.5040, L500.4050, L3100.5030 ####[facility] [address] [place], [address] Albumin/Globulin [Mass ratio] 1.1 {ratio} Normal 0.9-2.4 [facility] Comment on above: Order Comment: 1 Performed By: #### L 504.2610, L100.0100, L3100.2300, L3100.5040, L500.4050, L3100.5030 ####[facility] [address] [place], [address] ALK P 56 U/L Normal 45-117 [facility] Comment on above: Order Comment: 1 Performed By: #### L 504.2610, L100.0100, L3100.2300, L3100.5040, L500.4050, L3100.5030 ####[facility] [address] [place], [address] ALT [Catalytic activity/Vol] 42 U/L Normal 13-56 [facility] Comment on above: Order Comment: 1 Performed By: #### L 504.2610, L100.0100, L3100.2300, L3100.5040, L500.4050, L3100.5030 ####[facility] [address] [place], [address] AST [Catalytic activity/Vol] 33 U/L Normal 15-37 [facility] Comment on above: Order Comment: 1 Performed By: #### L 504.2610, L100.0100, L3100.2300, L3100.5040, L500.4050, L3100.5030 ####[facility] [address] [place], [address] Bilirubin [Mass/Vol] 0.30 mg/dL Normal 0.20-1.00 [facility] Comment on above: Order Comment: 1 Result Comment: For patients on eltrombopag therapy, use of Dimension [place] TBIL is not recommended. Performed By: #### L 504.2610, L100.0100, L3100.2300, L3100.5040, L500.4050, L3100.5030 ####[facility] [address] [place], [address] BUN/CRE 25.7 RATIO High 10-20 [facility] Comment on above: Order Comment: 1 Performed By: #### L 504.2610, L100.0100, L3100.2300, L3100.5040, L500.4050, L3100.5030 ####[facility] [address] [place], [address] CA,Total 10.2 mg/dL High 8.5-10.1 [facility] Comment on above: Order Comment: 1 Performed By: #### L 504.2610, L100.0100, L3100.2300, L3100.5040, L500.4050, L3100.5030 ####[facility] [address] [place], [address] Chloride [Moles/Vol] 108 mmol/L High 98-107 [facility] Comment on above: Order Comment: 1 Performed By: #### L 504.2610, L100.0100, L3100.2300, L3100.5040, L500.4050, L3100.5030 ####[facility] [address] [place], [address] CO2 [Moles/Vol] 28.0 mmol/L Normal 21.0-32.0 [facility] Comment on above: Order Comment: 1 Performed By: #### L 504.2610, L100.0100, L3100.2300, L3100.5040, L500.4050, L3100.5030 ####[facility] [address] [place], [address] Creatinine [Mass/Vol] 0.74 mg/dL Normal 0.55-1.02 [facility] Comment on above: Order Comment: 1 Result Comment: The validity of the calculated GFR GFRAA in patients over70 years has not been determined. Clinical correlation isessential. Performed By: #### L 504.2610, L100.0100, L3100.2300, L3100.5040, L500.4050, L3100.5030 ####[facility] [address] [place], [address] ECRCL 109.35 ml/min Normal [facility] Comment on above: Order Comment: 1 Performed By: #### L 504.2610, L100.0100, L3100.2300, L3100.5040, L500.4050, L3100.5030 ####[facility] [address] [place], [address] EST GFR - AA 105 mL/min Normal >60 [facility] Comment on above: Order Comment: 1 Result Comment: Afri can Congolese GFR Calc Performed By: #### L 504.2610, L100.0100, L3100.2300, L3100.5040, L500.4050, L3100.5030 ####[facility] [address] [place], [address] GAP 5 Normal 5-15 [facility] Comment on above: Order Comment: 1 Performed By: #### L 504.2610, L100.0100, L3100.2300, L3100.5040, L500.4050, L3100.5030 ####[facility] [address] [place], [address] GFR/1.73 sq M.predicted among non-blacks MDRD (S/P/Bld) [Vol rate/Area] 87 mL/min/{1.73_m2} Normal >60 [facility] Comment on above: Order Comment: 1 Result Comment: Non- GFR Calc Performed By: #### L 504.2610, L100.0100, L3100.2300, L3100.5040, L500.4050, L3100.5030 ####[facility] [address] [place], [address] Globulin (S) [Mass/Vol] 3.3 g/dL Normal 2.2-4.2 [facility] Comment on above: Order Comment: 1 Performed By: #### L 504.2610, L100.0100, L3100.2300, L3100.5040, L500.4050, L3100.5030 ####[facility] [address] [place], [place], [id number] Glucose [Mass/Vol] 102 mg/dL Normal 74-106 [facility] Comment on above: Order Comment: 1 Result Comment: Fast ing Glucose result from 100 to 125 mg/dLsuggests IMPAIRED HOMEOSTASIS per A.D.A. criteria. Performed By: #### L 504.2610, L100.0100, L3100.2300, L3100.5040, L500.4050, L3100.5030 ####[facility] [address] [place], [address] Potassium [Moles/Vol] 4.1 mmol/L Normal 3.5-5.1 [facility] Comment on above: Order Comment: 1 Performed By: #### L 504.2610, L100.0100, L3100.2300, L3100.5040, L500.4050, L3100.5030 ####[facility] [address] [place], [address] Sodium [Moles/Vol] 141 mmol/L Normal 136-145 [facility] Comment on above: Order Comment: 1 Performed By: #### L 504.2610, L100.0100, L3100.2300, L3100.5040, L500.4050, L3100.5030 ####[facility] [address] [place], [address] T PROT 6.8 g/dL Normal 6.4-8.2 [facility] Comment on above: Order Comment: 1 Performed By: #### L 504.2610, L100.0100, L3100.2300, L3100.5040, L500.4050, L3100.5030 ####[facility] [address] [place], [address] Urea nitrogen [Mass/Vol] 19 mg/dL High 7-18 [facility] Comment on above: Order Comment: 1 Performed By: #### L 504.2610, L100.0100, L3100.2300, L3100.5040, L500.4050, L3100.5030 ####[facility] [address] [place], [address] Estimated glomerular filtrat ion rate (GFR) AmericanOrdered By: Cristóbal Ford on 07-01-2024 Estimated GFR (MDRD) Amer 105 mL/min >60 [facility] Comment on above: GFR Calc LDHon 07-01-2024 LDH 163 U/L Normal 84-246 [facility] Comment on above: Order Comment: 1 Performed By: #### L 504.2610, L100.0100, L3100.2300, L3100.5040, L500.4050, L3100.5030 ####[facility] [address] [place], [address] Lactate dehydrogenase (LDH) measurementOrdered By: Cristóbal Ford on 07-01-2024 LDH [Catalytic activity/Vol] 163 U/L 84-246 [facility] Miscellaneous procedureOrder ed By: Cristóbal Ford on 07-01-2024 Miscellaneous Test Comment SEE SCANNED REPORT [facility] NATERAon 07-01-2024 NATURA SEE SCANNED REPORT Normal [facility] Comment on above: Performed By: #### L 900.0098 ####[facility] [address] [place], [address] Oncology Visit Reporton 06-10 Oncology Visit Report Normal [facility] E-CAD (initial)on 06-16-2024 E-CAD (initial) Normal [facility] Comment on above: Performed By: #### P ECAD ####[facility] [address] [place], [address] Special Stain [employer] Ion Special Stain [employer] I Normal [facility] Comment on above: Performed By: #### P SSI ####[facility] [address] [place], [address] Surgery Visit Reporton 06-16 Surgery Visit Report Normal [facility] Oncology Visit Reporton Oncology Visit Report Normal [facility] PET/CT Tumor Base -Thigh Sub son 06-15-2024 PET/CT Tumor Base -Thigh Subs Normal [facility] Oncology Visit Reporton Oncology Visit Report Normal [facility] CBC W/Diff, Automatedon 05-09 Absolute Lymph 2.19 X10 3/uL Normal 0.83-4.51 [facility] Comment on above: Performed By: #### L 100.0100, L504.2610, L500.4050 ####[facility] [address] [place], [address] Absolute Neut 4.9 X10 3/uL Normal 2.0-7.7 [facility] Comment on above: Performed By: #### L 100.0100, L504.2610, L500.4050 ####[facility] [address] [place], [address] Basophils/100 WBC (Bld) 0.4 % Normal 0-1 [facility] Comment on above: Performed By: #### L 100.0100, L504.2610, L500.4050 ####[facility] [address] [place], [address] Eosinophils/100 WBC (Bld) 0.9 % Normal 0-5 [facility] Comment on above: Performed By: #### L 100.0100, L504.2610, L500.4050 ####[facility] [address] [place], [address] Erythrocyte distribution width (RBC) [Ratio] 13.6 % Normal 11.6-14.6 [facility] Comment on above: Performed By: #### L 100.0100, L504.2610, L500.4050 ####[facility] [address] [place], [address] Hematocrit (Bld) [Volume fraction] 40.1 % Normal 37-47 [facility] Comment on above: Performed By: #### L 100.0100, L504.2610, L500.4050 ####[facility] [address] [place], [address] Hemoglobin (Bld) [Mass/Vol] 13.0 g/dL Normal 12.0-15.0 [facility] Comment on above: Performed By: #### L 100.0100, L504.2610, L500.4050 ####[facility] [address] [place], [address] IG% 0.500 Normal 0.0-0.9 [facility] Comment on above: Result Comment: IG% - Immature Granulocytes (promyelocytes, myelocytes andmetamyelocytes) > 1% indicates that a LEFT SHIFT is Present. Performed By: #### L 100.0100, L504.2610, L500.4050 ####[facility] [address] [place], [address] Lymphocytes/100 WBC (Bld) 28.8 % Normal 19-41 [facility] Comment on above: Performed By: #### L 100.0100, L504.2610, L500.4050 ####[facility] [address] [place], [address] MCH (RBC) [Entitic mass] 30.6 pg Normal 27.0-32.0 [facility] Comment on above: Performed By: #### L 100.0100, L504.2610, L500.4050 ####[facility] [address] [place], [address] MCHC (RBC) [Mass/Vol] 32.4 g/dL Normal 32-36 [facility] Comment on above: Performed By: #### L 100.0100, L504.2610, L500.4050 ####[facility] [address] [place], [address] MCV (RBC) [Entitic vol] 94.4 fL Normal 81-99 [facility] Comment on above: Performed By: #### L 100.0100, L504.2610, L500.4050 ####[facility] [address] [place], [address] Monocytes/100 WBC (Bld) 5.1 % Normal 0-10 [facility] Comment on above: Performed By: #### L 100.0100, L504.2610, L500.4050 ####[facility] [address] [place], [address] Neutrophils/100 WBC (Bld) 64.3 % Normal 47-70 [facility] Comment on above: Performed By: #### L 100.0100, L504.2610, L500.4050 ####[facility] [address] [place], [address] Nucleated RBC (Bld) [#/Vol] 0 10*3/uL Normal 0-5 [facility] Comment on above: Performed By: #### L 100.0100, L504.2610, L500.4050 ####[facility] [address] [place], [address] Platelet mean volume (Bld) [Entitic vol] 9.2 fL Normal 6.2-12.0 [facility] Comment on above: Performed By: #### L 100.0100, L504.2610, L500.4050 ####[facility] [address] [place], [address] Platelets (Bld) [#/Vol] 205 10*3/uL Normal 150-450 [facility] Comment on above: Performed By: #### L 100.0100, L504.2610, L500.4050 ####[facility] [address] [place], [address] RBC (Bld) [#/Vol] 4.25 10*6/uL Normal 4.2-5.4 [facility] Comment on above: Performed By: #### L 100.0100, L504.2610, L500.4050 ####[facility] [address] [place], [address] RDW SD 47.2 fl High 35.1-43.9 [facility] Comment on above: Performed By: #### L 100.0100, L504.2610, L500.4050 ####[facility] [address] [place], [address] WBC (Bld) [#/Vol] 7.6 10*3/uL Normal 4.4-11.0 [facility] Comment on above: Performed By: #### L 100.0100, L504.2610, L500.4050 ####[facility] [address] [place], [address] Comprehensive Metabolic Prof ilon 05-20-2024 Albumin [Mass/Vol] 3.6 g/dL Normal 3.2-5.0 [facility] Comment on above: Order Comment: 1 Performed By: #### L 100.0100, L504.2610, L500.4050 ####[facility] [address] [place], [address] Albumin/Globulin [Mass ratio] 1.2 {ratio} Normal 0.9-2.4 [facility] Comment on above: Order Comment: 1 Performed By: #### L 100.0100, L504.2610, L500.4050 ####[facility] [address] [place], [address] ALK P 64 U/L Normal 45-117 [facility] Comment on above: Order Comment: 1 Performed By: #### L 100.0100, L504.2610, L500.4050 ####[facility] [address] [place], [address] ALT [Catalytic activity/Vol] 37 U/L Normal 13-56 [facility] Comment on above: Order Comment: 1 Performed By: #### L 100.0100, L504.2610, L500.4050 ####[facility] [address] [place], [address] AST [Catalytic activity/Vol] 29 U/L Normal 15-37 [facility] Comment on above: Order Comment: 1 Performed By: #### L 100.0100, L504.2610, L500.4050 ####[facility] [address] [place], [address] Bilirubin [Mass/Vol] 0.30 mg/dL Normal 0.20-1.00 [facility] Comment on above: Order Comment: 1 Result Comment: For patients on eltrombopag therapy, use of Dimension [place] TBIL is not recommended. Performed By: #### L 100.0100, L504.2610, L500.4050 ####[facility] [address] [place], [address] BUN/CRE 27.1 RATIO High 10-20 [facility] Comment on above: Order Comment: 1 Performed By: #### L 100.0100, L504.2610, L500.4050 ####[facility] [address] [place], [address] CA,Total 10.2 mg/dL High 8.5-10.1 [facility] Comment on above: Order Comment: 1 Performed By: #### L 100.0100, L504.2610, L500.4050 ####[facility] [address] [place], [address] Chloride [Moles/Vol] 109 mmol/L High 98-107 [facility] Comment on above: Order Comment: 1 Performed By: #### L 100.0100, L504.2610, L500.4050 ####[facility] [address] [place], [address] CO2 [Moles/Vol] 30.0 mmol/L Normal 21.0-32.0 [facility] Comment on above: Order Comment: 1 Performed By: #### L 100.0100, L504.2610, L500.4050 ####[facility] [address] [place], [address] Creatinine [Mass/Vol] 0.85 mg/dL Normal 0.55-1.02 [facility] Comment on above: Order Comment: 1 Result Comment: The validity of the calculated GFR GFRAA in patients over70 years has not been determined. Clinical correlation isessential. Performed By: #### L 100.0100, L504.2610, L500.4050 ####[facility] [address] [place], [address] ECRCL 94.53 ml/min Normal [facility] Comment on above: Order Comment: 1 Performed By: #### L 100.0100, L504.2610, L500.4050 ####[facility] [address] [place], [address] EST GFR - AA 89 mL/min Normal >60 [facility] Comment on above: Order Comment: 1 Result Comment: Afri can Congolese GFR Calc Performed By: #### L 100.0100, L504.2610, L500.4050 ####[facility] [address] [place], [address] GAP 2 Low 5-15 [facility] Comment on above: Order Comment: 1 Performed By: #### L 100.0100, L504.2610, L500.4050 ####[facility] [address] [place], [address] GFR/1.73 sq M.predicted among non-blacks MDRD (S/P/Bld) [Vol rate/Area] 74 mL/min/{1.73_m2} Normal >60 [facility] Comment on above: Order Comment: 1 Result Comment: Non- GFR Calc Performed By: #### L 100.0100, L504.2610, L500.4050 ####[facility] [address] [place], [address] Globulin (S) [Mass/Vol] 3.0 g/dL Normal 2.2-4.2 [facility] Comment on above: Order Comment: 1 Performed By: #### L 100.0100, L504.2610, L500.4050 ####[facility] [address] [place], [address] Glucose [Mass/Vol] 135 mg/dL High 74-106 [facility] Comment on above: Order Comment: 1 Result Comment: Fast ing Glucose result greater than or equal to 126 mg/dLsuggests DIABETES MELLITUS per A.D.A. criteria. Performed By: #### L 100.0100, L504.2610, L500.4050 ####[facility] [address] [place], [address] Potassium [Moles/Vol] 3.7 mmol/L Normal 3.5-5.1 [facility] Comment on above: Order Comment: 1 Performed By: #### L 100.0100, L504.2610, L500.4050 ####[facility] [address] [place], [address] Sodium [Moles/Vol] 141 mmol/L Normal 136-145 [facility] Comment on above: Order Comment: 1 Performed By: #### L 100.0100, L504.2610, L500.4050 ####[facility] [address] [place], [address] T PROT 6.6 g/dL Normal 6.4-8.2 [facility] Comment on above: Order Comment: 1 Performed By: #### L 100.0100, L504.2610, L500.4050 ####[facility] [address] [place], [address] Urea nitrogen [Mass/Vol] 23 mg/dL High 7-18 [facility] Comment on above: Order Comment: 1 Performed By: #### L 100.0100, L504.2610, L500.4050 ####[facility] [address] [place], [address] LDHon 05-20-2024 LDH 187 U/L Normal 84-246 [facility] Comment on above: Order Comment: 1 Performed By: #### L 100.0100, L504.2610, L500.4050 ####[facility] [address] [place], [address] Oncology Visit Reporton 05-09 Oncology Visit Report Normal [facility] ONC Echo Completeon 05-19-20 ONC Echo Complete Normal [facility] CA 15-3on 04-30-2024 CA 15-3 45.2 U/mL Abnormal 0.0-25.0 [facility] Comment on above: Result Comment: [employer] Electrochemiluminescence Immunoassay(ECLIA)Values obtained with different assay methods or kits cannotbe used interchangeably. Results cannot be interpreted asabsolute evidence of the presence or absence of malignantdisease.Performed at: [facility] [id number] Director: Ervin Hitchcock PhD, Phone: [phone] Performed By: #### L 3100.5030, L3100.5040, L100.0100, L500.4050, L3100.2300 ####[facility] [address] [place], [place], [id number] CA 27.29on 04-30-2024 CA 27.29 61.3 U/mL Abnormal 0.0-38.6 [facility] Comment on above: Result Comment: [employer] Immunochemiluminometric Methodology (ICMA)Values obtained with different assay methods or kits cannotbe used interchangeably. Results cannot be interpreted asabsolute evidence of the presence or absence of malignantdisease. Performed By: #### L 3100.5030, L3100.5040, L100.0100, L500.4050, L3100.2300 ####[facility] [address] [place], [place], [id number] Carcinoembryonic Antigenon 1 06-30-2023 CEA 1.2 ng/mL Normal 0.0-4.7 [facility] Comment on above: Result Comment: Nons mokers <3.9 Smokers <5.6[employer] Electrochemiluminescence Immunoassay(ECLIA)Values obtained with different assay methods or kitscannot be used interchangeably. Results cannot beinterpreted as absolute evidence of the presence orabsence of malignant disease. Performed By: #### L 3100.5030, L3100.5040, L100.0100, L500.4050, L3100.2300 ####[facility] [address] [place], [address] CBC W/Diff, Automatedon 11-2 Absolute Lymph 2.47 X10 3/uL Normal 0.83-4.51 [facility] Comment on above: Performed By: #### L 3100.5030, L3100.5040, L100.0100, L500.4050, L3100.2300 ####[facility] [address] [place], [address] Absolute Neut 4.7 X10 3/uL Normal 2.0-7.7 [facility] Comment on above: Performed By: #### L 3100.5030, L3100.5040, L100.0100, L500.4050, L3100.2300 ####[facility] [address] [place], [address] Basophils/100 WBC (Bld) 0.3 % Normal 0-1 [facility] Comment on above: Performed By: #### L 3100.5030, L3100.5040, L100.0100, L500.4050, L3100.2300 ####[facility] [address] [place], [address] Eosinophils/100 WBC (Bld) 1.2 % Normal 0-5 [facility] Comment on above: Performed By: #### L 3100.5030, L3100.5040, L100.0100, L500.4050, L3100.2300 ####[facility] [address] [place], [address] Erythrocyte distribution width (RBC) [Ratio] 13.7 % Normal 11.6-14.6 [facility] Comment on above: Performed By: #### L 3100.5030, L3100.5040, L100.0100, L500.4050, L3100.2300 ####[facility] [address] [place], [address] Hematocrit (Bld) [Volume fraction] 38.5 % Normal 37-47 [facility] Comment on above: Performed By: #### L 3100.5030, L3100.5040, L100.0100, L500.4050, L3100.2300 ####[facility] [address] [place], [address] Hemoglobin (Bld) [Mass/Vol] 12.5 g/dL Normal 12.0-15.0 [facility] Comment on above: Performed By: #### L 3100.5030, L3100.5040, L100.0100, L500.4050, L3100.2300 ####[facility] [address] [place], [address] IG% 0.300 Normal 0.0-0.9 [facility] Comment on above: Result Comment: IG% - Immature Granulocytes (promyelocytes, myelocytes andmetamyelocytes) > 1% indicates that a LEFT SHIFT is Present. Performed By: #### L 3100.5030, L3100.5040, L100.0100, L500.4050, L3100.2300 ####[facility] [address] [place], [address] Lymphocytes/100 WBC (Bld) 31.9 % Normal 19-41 [facility] Comment on above: Performed By: #### L 3100.5030, L3100.5040, L100.0100, L500.4050, L3100.2300 ####[facility] [address] [place], [address] MCH (RBC) [Entitic mass] 31.0 pg Normal 27.0-32.0 [facility] Comment on above: Performed By: #### L 3100.5030, L3100.5040, L100.0100, L500.4050, L3100.2300 ####[facility] [address] [place], [address] MCHC (RBC) [Mass/Vol] 32.5 g/dL Normal 32-36 [facility] Comment on above: Performed By: #### L 3100.5030, L3100.5040, L100.0100, L500.4050, L3100.2300 ####[facility] [address] [place], [address] MCV (RBC) [Entitic vol] 95.5 fL Normal 81-99 [facility] Comment on above: Performed By: #### L 3100.5030, L3100.5040, L100.0100, L500.4050, L3100.2300 ####[facility] [address] [place], [address] Monocytes/100 WBC (Bld) 6.5 % Normal 0-10 [facility] Comment on above: Performed By: #### L 3100.5030, L3100.5040, L100.0100, L500.4050, L3100.2300 ####[facility] [address] [place], [address] Neutrophils/100 WBC (Bld) 59.8 % Normal 47-70 [facility] Comment on above: Performed By: #### L 3100.5030, L3100.5040, L100.0100, L500.4050, L3100.2300 ####[facility] [address] [place], [address] Nucleated RBC (Bld) [#/Vol] 0 10*3/uL Normal 0-5 [facility] Comment on above: Performed By: #### L 3100.5030, L3100.5040, L100.0100, L500.4050, L3100.2300 ####[facility] [address] [place], [address] Platelet mean volume (Bld) [Entitic vol] 9.1 fL Normal 6.2-12.0 [facility] Comment on above: Performed By: #### L 3100.5030, L3100.5040, L100.0100, L500.4050, L3100.2300 ####[facility] [address] [place], [address] Platelets (Bld) [#/Vol] 208 10*3/uL Normal 150-450 [facility] Comment on above: Performed By: #### L 3100.5030, L3100.5040, L100.0100, L500.4050, L3100.2300 ####[facility] [address] [place], [address] RBC (Bld) [#/Vol] 4.03 10*6/uL Low 4.2-5.4 [facility] Comment on above: Performed By: #### L 3100.5030, L3100.5040, L100.0100, L500.4050, L3100.2300 ####[facility] [address] [place], [address] RDW SD 48.3 fl High 35.1-43.9 [facility] Comment on above: Performed By: #### L 3100.5030, L3100.5040, L100.0100, L500.4050, L3100.2300 ####[facility] [address] [place], [address] WBC (Bld) [#/Vol] 7.8 10*3/uL Normal 4.4-11.0 [facility] Comment on above: Performed By: #### L 3100.5030, L3100.5040, L100.0100, L500.4050, L3100.2300 ####[facility] [address] [place], [address] Comprehensive Metabolic Prof [facility] 04-29-2024 Albumin [Mass/Vol] 3.9 g/dL Normal 3.2-5.0 [facility] Comment on above: Performed By: #### L 3100.5030, L3100.5040, L100.0100, L500.4050, L3100.2300 ####[facility] [address] [place], [address] Albumin/Globulin [Mass ratio] 1.3 {ratio} Normal 0.9-2.4 [facility] Comment on above: Performed By: #### L 3100.5030, L3100.5040, L100.0100, L500.4050, L3100.2300 ####[facility] [address] [place], [address] ALK P 68 U/L Normal 45-117 [facility] Comment on above: Performed By: #### L 3100.5030, L3100.5040, L100.0100, L500.4050, L3100.2300 ####[facility] [address] [place], [address] ALT [Catalytic activity/Vol] 31 U/L Normal 13-56 [facility] Comment on above: Performed By: #### L 3100.5030, L3100.5040, L100.0100, L500.4050, L3100.2300 ####[facility] [address] [place], [address] AST [Catalytic activity/Vol] 27 U/L Normal 15-37 [facility] Comment on above: Performed By: #### L 3100.5030, L3100.5040, L100.0100, L500.4050, L3100.2300 ####[facility] [address] [place], [address] Bilirubin [Mass/Vol] 0.30 mg/dL Normal 0.20-1.00 [facility] Comment on above: Result Comment: For patients on eltrombopag therapy, use of Dimension [place] TBIL is not recommended. Performed By: #### L 3100.5030, L3100.5040, L100.0100, L500.4050, L3100.2300 ####[facility] [address] [place], [address] BUN/CRE 29.3 RATIO High 10-20 [facility] Comment on above: Performed By: #### L 3100.5030, L3100.5040, L100.0100, L500.4050, L3100.2300 ####[facility] [address] [place], [address] CA,Total 9.6 mg/dL Normal 8.5-10.1 [facility] Comment on above: Performed By: #### L 3100.5030, L3100.5040, L100.0100, L500.4050, L3100.2300 ####[facility] [address] [place], [address] Chloride [Moles/Vol] 109 mmol/L High 98-107 [facility] Comment on above: Performed By: #### L 3100.5030, L3100.5040, L100.0100, L500.4050, L3100.2300 ####[facility] [address] [place], [address] CO2 [Moles/Vol] 26.0 mmol/L Normal 21.0-32.0 [facility] Comment on above: Performed By: #### L 3100.5030, L3100.5040, L100.0100, L500.4050, L3100.2300 ####[facility] [address] [place], [address] Creatinine [Mass/Vol] 0.78 mg/dL Normal 0.55-1.02 [facility] Comment on above: Result Comment: The validity of the calculated GFR GFRAA in patients over70 years has not been determined. Clinical correlation isessential. Performed By: #### L 3100.5030, L3100.5040, L100.0100, L500.4050, L3100.2300 ####[facility] [address] [place], [address] ECRCL 102.63 ml/min Normal [facility] Comment on above: Performed By: #### L 3100.5030, L3100.5040, L100.0100, L500.4050, L3100.2300 ####[facility] [address] [place], [address] EST GFR - AA 98 mL/min Normal >60 [facility] Comment on above: Result Comment: Afri can Congolese GFR Calc Performed By: #### L 3100.5030, L3100.5040, L100.0100, L500.4050, L3100.2300 ####[facility] [address] [place], [address] GAP 5 Normal 5-15 [facility] Comment on above: Performed By: #### L 3100.5030, L3100.5040, L100.0100, L500.4050, L3100.2300 ####[facility] [address] [place], [address] GFR/1.73 sq M.predicted among non-blacks MDRD (S/P/Bld) [Vol rate/Area] 81 mL/min/{1.73_m2} Normal >60 [facility] Comment on above: Result Comment: Non- GFR Calc Performed By: #### L 3100.5030, L3100.5040, L100.0100, L500.4050, L3100.2300 ####[facility] [address] [place], [address] Globulin (S) [Mass/Vol] 3.0 g/dL Normal 2.2-4.2 [facility] Comment on above: Performed By: #### L 3100.5030, L3100.5040, L100.0100, L500.4050, L3100.2300 ####[facility] [address] [place], [address] Glucose [Mass/Vol] 98 mg/dL Normal 74-106 [facility] Comment on above: Performed By: #### L 3100.5030, L3100.5040, L100.0100, L500.4050, L3100.2300 ####[facility] [address] [place], [address] Potassium [Moles/Vol] 3.9 mmol/L Normal 3.5-5.1 [facility] Comment on above: Performed By: #### L 3100.5030, L3100.5040, L100.0100, L500.4050, L3100.2300 ####[facility] [address] [place], [address] Sodium [Moles/Vol] 140 mmol/L Normal 136-145 [facility] Comment on above: Performed By: #### L 3100.5030, L3100.5040, L100.0100, L500.4050, L3100.2300 ####[facility] [address] [place], [address] T PROT 6.9 g/dL Normal 6.4-8.2 [facility] Comment on above: Performed By: #### L 3100.5030, L3100.5040, L100.0100, L500.4050, L3100.2300 ####[facility] [address] [place], [address] Urea nitrogen [Mass/Vol] 23 mg/dL High 7-18 [facility] Comment on above: Performed By: #### L 3100.5030, L3100.5040, L100.0100, L500.4050, L3100.2300 ####[facility] [address] [place], [address] Oncology Visit Reporton 11-2 Oncology Visit Report Normal [facility] CBC W/Diff, Automatedon 10-3 Absolute Lymph 2.83 X10 3/uL Normal 0.83-4.51 [facility] Comment on above: Performed By: #### L 100.0100, L500.4050 ####[facility] [address] [place], [address] Absolute Neut 4.4 X10 3/uL Normal 2.0-7.7 [facility] Comment on above: Performed By: #### L 100.0100, L500.4050 ####[facility] [address] [place], [address] Basophils/100 WBC (Bld) 0.3 % Normal 0-1 [facility] Comment on above: Performed By: #### L 100.0100, L500.4050 ####[facility] [address] [place], [address] Eosinophils/100 WBC (Bld) 0.8 % Normal 0-5 [facility] Comment on above: Performed By: #### L 100.0100, L500.4050 ####[facility] [address] [place], [address] Erythrocyte distribution width (RBC) [Ratio] 13.4 % Normal 11.6-14.6 [facility] Comment on above: Performed By: #### L 100.0100, L500.4050 ####[facility] [address] [place], [address] Hematocrit (Bld) [Volume fraction] 38.3 % Normal 37-47 [facility] Comment on above: Performed By: #### L 100.0100, L500.4050 ####[facility] [address] [place], [address] Hemoglobin (Bld) [Mass/Vol] 12.5 g/dL Normal 12.0-15.0 [facility] Comment on above: Performed By: #### L 100.0100, L500.4050 ####[facility] [address] [place], [address] IG% 0.400 Normal 0.0-0.9 [facility] Comment on above: Result Comment: IG% - Immature Granulocytes (promyelocytes, myelocytes andmetamyelocytes) > 1% indicates that a LEFT SHIFT is Present. Performed By: #### L 100.0100, L500.4050 ####[facility] [address] [place], [address] Lymphocytes/100 WBC (Bld) 35.6 % Normal 19-41 [facility] Comment on above: Performed By: #### L 100.0100, L500.4050 ####[facility] [address] [place], [address] MCH (RBC) [Entitic mass] 31.5 pg Normal 27.0-32.0 [facility] Comment on above: Performed By: #### L 100.0100, L500.4050 ####[facility] [address] [place], [address] MCHC (RBC) [Mass/Vol] 32.6 g/dL Normal 32-36 [facility] Comment on above: Performed By: #### L 100.0100, L500.4050 ####[facility] [address] [place], [address] MCV (RBC) [Entitic vol] 96.5 fL Normal 81-99 [facility] Comment on above: Performed By: #### L 100.0100, L500.4050 ####[facility] [address] [place], [address] Monocytes/100 WBC (Bld) 7.3 % Normal 0-10 [facility] Comment on above: Performed By: #### L 100.0100, L500.4050 ####[facility] [address] [place], [address] Neutrophils/100 WBC (Bld) 55.6 % Normal 47-70 [facility] Comment on above: Performed By: #### L 100.0100, L500.4050 ####[facility] [address] [place], [address] Nucleated RBC (Bld) [#/Vol] 0 10*3/uL Normal 0-5 [facility] Comment on above: Performed By: #### L 100.0100, L500.4050 ####[facility] [address] [place], [address] Platelet mean volume (Bld) [Entitic vol] 9.2 fL Normal 6.2-12.0 [facility] Comment on above: Performed By: #### L 100.0100, L500.4050 ####[facility] [address] [place], [address] Platelets (Bld) [#/Vol] 210 10*3/uL Normal 150-450 [facility] Comment on above: Performed By: #### L 100.0100, L500.4050 ####[facility] [address] [place], [address] RBC (Bld) [#/Vol] 3.97 10*6/uL Low 4.2-5.4 [facility] Comment on above: Performed By: #### L 100.0100, L500.4050 ####[facility] [address] [place], [address] RDW SD 47.7 fl High 35.1-43.9 [facility] Comment on above: Performed By: #### L 100.0100, L500.4050 ####[facility] [address] [place], [address] WBC (Bld) [#/Vol] 7.9 10*3/uL Normal 4.4-11.0 [facility] Comment on above: Performed By: #### L 100.0100, L500.4050 ####[facility] [address] [place], [address] Comprehensive Metabolic Prof ilon 04-08-2024 Albumin [Mass/Vol] 3.9 g/dL Normal 3.2-5.0 [facility] Comment on above: Performed By: #### L 100.0100, L500.4050 ####[facility] [address] [place], [address] Albumin/Globulin [Mass ratio] 1.2 {ratio} Normal 0.9-2.4 [facility] Comment on above: Performed By: #### L 100.0100, L500.4050 ####[facility] [address] [place], [address] ALK P 91 U/L Normal 45-117 [facility] Comment on above: Performed By: #### L 100.0100, L500.4050 ####[facility] [address] [place], [address] ALT [Catalytic activity/Vol] 31 U/L Normal 13-56 [facility] Comment on above: Performed By: #### L 100.0100, L500.4050 ####[facility] [address] [place], [address] AST [Catalytic activity/Vol] 25 U/L Normal 15-37 [facility] Comment on above: Performed By: #### L 100.0100, L500.4050 ####[facility] [address] [place], [address] Bilirubin [Mass/Vol] 0.50 mg/dL Normal 0.20-1.00 [facility] Comment on above: Result Comment: For patients on eltrombopag therapy, use of Dimension [place] TBIL is not recommended. Performed By: #### L 100.0100, L500.4050 ####[facility] [address] [place], [address] BUN/CRE 31.1 RATIO High 10-20 [facility] Comment on above: Performed By: #### L 100.0100, L500.4050 ####[facility] [address] [place], [address] CA,Total 10.4 mg/dL High 8.5-10.1 [facility] Comment on above: Performed By: #### L 100.0100, L500.4050 ####[facility] [address] [place], [address] Chloride [Moles/Vol] 107 mmol/L Normal 98-107 [facility] Comment on above: Performed By: #### L 100.0100, L500.4050 ####[facility] [address] [place], [address] CO2 [Moles/Vol] 29.0 mmol/L Normal 21.0-32.0 [facility] Comment on above: Performed By: #### L 100.0100, L500.4050 ####[facility] [address] [place], [address] Creatinine [Mass/Vol] 0.74 mg/dL Normal 0.55-1.02 [facility] Comment on above: Result Comment: The validity of the calculated GFR GFRAA in patients over70 years has not been determined. Clinical correlation isessential. Performed By: #### L 100.0100, L500.4050 ####[facility] [address] [place], [address] ECRCL 108.15 ml/min Normal [facility] Comment on above: Performed By: #### L 100.0100, L500.4050 ####[facility] [address] [place], [address] EST GFR - AA 105 mL/min Normal >60 [facility] Comment on above: Result Comment: Afri can Congolese GFR Calc Performed By: #### L 100.0100, L500.4050 ####[facility] [address] [place], [address] GAP 3 Low 5-15 [facility] Comment on above: Performed By: #### L 100.0100, L500.4050 ####[facility] [address] [place], [address] GFR/1.73 sq M.predicted among non-blacks MDRD (S/P/Bld) [Vol rate/Area] 87 mL/min/{1.73_m2} Normal >60 [facility] Comment on above: Result Comment: Non- GFR Calc Performed By: #### L 100.0100, L500.4050 ####[facility] [address] [place], [address] Globulin (S) [Mass/Vol] 3.2 g/dL Normal 2.2-4.2 [facility] Comment on above: Performed By: #### L 100.0100, L500.4050 ####[facility] [address] [place], [address] Glucose [Mass/Vol] 87 mg/dL Normal 74-106 [facility] Comment on above: Performed By: #### L 100.0100, L500.4050 ####[facility] [address] [place], [address] Potassium [Moles/Vol] 4.0 mmol/L Normal 3.5-5.1 [facility] Comment on above: Performed By: #### L 100.0100, L500.4050 ####[facility] [address] [place], [address] Sodium [Moles/Vol] 139 mmol/L Normal 136-145 [facility] Comment on above: Performed By: #### L 100.0100, L500.4050 ####[facility] [address] [place], [address] T PROT 7.1 g/dL Normal 6.4-8.2 [facility] Comment on above: Performed By: #### L 100.0100, L500.4050 ####[facility] [address] [place], [address] Urea nitrogen [Mass/Vol] 23 mg/dL High 7-18 [facility] Comment on above: Performed By: #### L 100.0100, L500.4050 ####[facility] [address] [place], [address] Oncology Visit Reporton 10-3 Oncology Visit Report Normal [facility] Cancer antigen 125 (CA-125) measurementOrdered By: Cristóbal Ford on 03-18-2024 CA 125 Antigen 10.2 U/mL 0.0-38.1 [facility] Comment on above: [employer] El ectrochemiluminescence Immunoassay(ECLIA)Values obtained with different assay methods or kits cannotbe used interchangeably. Results cannot be interpreted asabsolute evidence of the presence or absence of malignantdisease. Cancer antigen 125 (CA-125) measurement 10.2 U/mL 0.0-38.1 [facility] Comment on above: [employer] El ectrochemiluminescence Immunoassay(ECLIA)Values obtained with different assay methods or kits cannotbe used interchangeably. Results cannot be interpreted asabsolute evidence of the presence or absence of malignantdisease. Bilirubin directOrdered By: Jesus Varma on 01-15-2024 Bilirubin.direct [Mass/Vol] 0.15 mg/dL 0.00-0.30 [facility] Cholesterol measurementOrder ed By: Jesus Varma on 01-15-2024 Cholesterol [Mass/Vol] 130 mg/dL <200 [facility] Comment on above: <200 mg/dL Desirable 200-240 mg/dL Borderline >240 mg/dL High Risk High density lipoprotein (HD L) measurementOrdered By: Jesus Varma on 01-15-2024 Cholesterol in HDL [Mass/Vol] 51 mg/dL >40 [facility] Comment on above: The drugs N-Acetylcy steine and Metamizole may falsely depress this assay. Reference Range HDL <40 mg/dL Low HDL Cholesterol HDL >or= 60 mg/dL High HDL Cholesterol Low density lipoprotein (LDL ) cholesterol measurementOrdered By: Jesus Varma on 01-15-2024 Cholesterol in LDL [Mass/Vol] 49 mg/dL 0-130 [facility] Serum or plasma thyroid stim ulating hormone (TSH) measurement (units/volume)Ordered By: Blue Alicia on 01-15-2024 TSH Qn 1.50 uIU/mL 0.358-3.74 [facility] TSH QnOrdered By: Blue poon on 01-15-2024 Thyroid Stimulating Hormone (TSH) 1.50 uIU/mL 0.358-3.74 [facility] Triglycerides measurementOrd ered By: Jesus Varma on 01-15-2024 Triglyceride [Mass/Vol] 148 mg/dL <199 [facility] Comment on above: The drugs N-Acetylcy steine and Metamizole may falsely depress this assay.Serum Triglycerides Reference Interval Normal <150 mg/dL Borderline high 150 - 199 mg/dL High 200 - 499 mg/dL Very High > or = 500 mg/dL Very low density lipoprotein (VLDL) cholesterol measurementOrdered By: Jesus Varma on 01-15-2024 Very low density lipoprotein (VLDL) cholesterol measurement 30 mg/dL 5-40 [facility] VLDL Cholesterol 30 mg/dL 5-40 [facility] Office Visiton 10-28-2023 Follow-up visit [id number] Tania Russell 1970 F Date Provider Department Center 10/28/2023 [id number] RAUSCH [facility] OB Offi Family History Problem Relation Age of Onset Diabetes Mother Stroke Paternal Grandmother Colon cancer Maternal Grandfather Family Status - Relation Status Age at Mother Alive Paternal Grandmother Maternal Grandfather Father Level of Service:81527 [place] POSTOP FOLLOW UP VISIT RELATED TO ORIGINAL PX Reason for Visit and Comments: Post-op Visit [559] - D&C Normal [facility] Progress Noteon 10-28-2023 Progress Note Lissett [...] to call w/ any further bleeding. Normal [facility] HCG ( test) Ql (U)o n 10-10-2023 Beta HCG ( test) Ql (U) [id number] [facility] NEGATIVE QC Pass [facility] POSITIVE QC Pass [facility] Preg Test, Ur Negative Negative [facility] Radiology Study observation (narrative) [facility] Nursing Noteon 10-10-2023 Nursing Note Patient [...] family. All questions answered. Verbalized understanding. Normal [facility] Op Noteon 10-10-2023 Op Note Pre-Op Diagnosis: PM B, Endometrial Polyp Post-Op Diagnosis: Same Operative Procedure: Operative Hysteroscopy w/ D&C, Myosure Polypectomy Surgeon: Dr. Rausch Blank Driller: None Findings: Polyp noted on the posterior [...] to the recovery room in stable condition. PREPROCINSon 10-03-2023 PREPROCINS Medication List Accurate as [...] any instructions given to you by Dr. RAUSCH Showarlette with an antibacterial soap such as Dial [...] your scheduled surgery time. Please bring your [facility] Surgical folder and medication list with you day of surgery. We encourage you to write down any questions you may have for the surgeon, anesthesiologist, or other members of the surgical team and bring it with you the day of surgery. Please bring photo ID and insurance information. You may use the plant senior manager parking located at the main entrance on [address] [place] [address] and take the H elevator to the first floor for same day surgery. Take a left after exiting the elevator and check in at the desk. You may use the parking in the Main deck. Take the level one bridge to the H building and follow the signs for same day surgery. Check in at the desk. Normal [facility] Progress Noteon 10-03-2023 Progress Note ADVANCED CARE PLANJOSH Russell : 1970 Primary Care Physician: MAIDA KIM The patient and/or family/surrogate voluntarily agreed to participate in ACP services. Patient?s cognitive capacity: intact Code Status: [x] [FULL CODE - Continue all advanced life support: CPR,intubation,invasive procedures] [_] [DNR-CCA - DO NOT do CPR, intubation] [_] [DNR-DATA ENTRY EMAIL PROCESSOR - Comfort care only] [_] DNR form [...] care, with patient and/or family/surrogate. Alyssa Morales, SEGUN - ATHLETICS TEACHER [facility] 10/03/2023, 4:28 PM 36on 09-12-2023 36 Pt is scheduled for a hysteroscopy D&C on 10/10/2023 @ 11a @ [facility]. PAT on 10/03/2023 @ 330pm. Progress Noteon 09-02-2023 Progress Note Patient seeing [...] today to the best of my ability. Office Visiton 08-12-2023 Follow-up visit [id number] Tania Russell 1970 F Date Provider Department Center 08/12/2023 [id number] GOLDBERG V [facility] OB Offi Family History Problem Relation Age of Onset Diabetes Mother Stroke Paternal Grandmother Colon cancer Maternal Grandfather Family Status - Relation Status Age at Mother Alive Paternal Grandmother Maternal Grandfather Father Level of Service:82462 [place] OFFICE/OUTPATIENT ESTABLISHED LOW [facility] 20 MIN Reason for Visit and Comments: Follow-up [915224] - Review [facility] Progress Noteon 08-12-2023 Progress Note Chief Complaint Patient presents with Follow-up Review [facility] Patient's last menstrual period was 04/12/2023 [...] and c No follow-ups on file. Normal [facility] US PELVIS TRANSVAGINALon US PELVIS TRANSVAGINAL --------- Gynecological Report (Signed Final 08/12/2023 04:13 pm) PATIENT INFO: ID #: [id number] : [birth year] (53 yrs)(F) Name: LISSETT RUSSELL Visit Date: 08/12/2023 10:31 am PERFORMED BY: Attending: Carlee Camp MD Performed By: Albina Montana RDMS Referred By: NIKKO GOLDBERG MD Location: [facility] [address] [place] SERVICE(S) PROVIDED: Clinical Exercise Specialist Transvaginal [id number] INDICATIONS: Postmenopausal bleeding N95.0 TECHNIQUE/SCAN QUALITY: Technique: [...] ultrasound. *Ultrasound cannot detect all pelvic or [employer]NA[employer] abnormalities and normal findings cannot guarantee the absence of a problem.* Normal [facility] Absolute lymphocyte countOrd ered By: Genna StricklandAleksander on 07-31-2023 Lymphocytes Auto (Unsp spec) [#/Vol] 2.73 10*3/uL 0.83-4.51 [facility] Automated lymphocyte count a s percentage of total leukocytesOrdered By: Genna Zuniga on 07-31-2023 Lymphocytes/100 WBC Auto (Unsp spec) 33.2 % 19-41 [facility] Basophil percentageOrdered B y: Genna StricklandAleksander on 07-31-2023 Basophils/100 WBC (Bld) 0.2 % 0-1 [facility] Bilirubin [Mass/Vol] 0.30 mg/dL 0.20-1.00 [facility] Comment on above: For patients on eltr ombopag therapy, use of Dimension [place] TBIL is not recommended. Chloride [Moles/Vol] 108 mmol/L 98-107 [facility] Eosinophils/100 WBC (Bld) 0.7 % 0-5 [facility] Glucose [Mass/Vol] 103 mg/dL 74-106 [facility] Comment on above: Fasting Glucose resu lt from 100 to 125 mg/dL suggests IMPAIRED HOMEOSTASIS per A.D.A. criteria. Hemoglobin (Bld) [Mass/Vol] 13.2 g/dL 12.0-15.0 [facility] Monocytes/100 WBC (Bld) 6.9 % 0-10 [facility] Neutrophils (Bld) [#/Vol] 4.8 10*3/uL 2.0-7.7 [facility] Neutrophils/100 WBC (Bld) 58.6 % 47-70 [facility] Potassium [Moles/Vol] 3.9 mmol/L 3.5-5.1 [facility] Protein [Mass/Vol] 6.9 g/dL 6.4-8.2 [facility] Sodium [Moles/Vol] 141 mmol/L 136-145 [facility] WBC (Bld) [#/Vol] 8.2 10*3/uL 4.4-11.0 [facility] Determination of erythrocyte mean corpuscular volume (MCV)Ordered By: Genna Zuniga on 07-31-2023 MCV (RBC) [Entitic vol] 96.7 fL 81-99 [facility] Erythrocyte distribution wid th ratioOrdered By: [facility] on 07-31-2023 Erythrocyte distribution width (RBC) [Ratio] 13.2 % 11.6-14.6 [facility] Erythrocyte distribution wid th standard deviationOrdered By: [facility] on 07-31-2023 Erythrocyte distribution width (RBC) [Entitic vol] 47.1 fL 35.1-43.9 [facility] Hematocrit Auto (Bld) [Volum e fraction]Ordered By: [facility] on 07-31-2023 Hematocrit (Bld) [Volume fraction] 40.7 % 37-47 [facility] Immature granulocytes/100 WB C Auto (Bld)Ordered By: [facility] on 07-31-2023 Immature granulocytes/100 WBC (Bld) 0.400 % 0.0-0.9 [facility] Comment on above: IG% - Immature Granu locytes (promyelocytes, myelocytes and metamyelocytes) > 1% indicates that a LEFT SHIFT is Present. Laboratory - Chemistry and C hemistry - challengeOrdered By: [facility] on 07-31-2023 Albumin/Globulin [Mass ratio] 1.2 {ratio} 0.9-2.4 [facility] ALP [Catalytic activity/Vol] 44 U/L 45-117 [facility] ALT [Catalytic activity/Vol] 56 U/L 13-56 [facility] CO2 [Moles/Vol] 27.0 mmol/L 21.0-32.0 [facility] Globulin (S) [Mass/Vol] 3.2 g/dL 2.2-4.2 [facility] Urea nitrogen/Creatinine [Mass ratio] 24.2 mg/mg 10-20 [facility] Laboratory - Hematology and Cell countsOrdered By: Gennanino Zuniga on 07-31-2023 MCH (RBC) [Entitic mass] 31.4 pg 27.0-32.0 [facility] MCHC (RBC) [Mass/Vol] 32.4 g/dL 32-36 [facility] Nucleated RBC/100 WBC (Bld) [Ratio] 0 % 0-5 [facility] Platelet mean volume (Bld) [Entitic vol] 9.1 fL 6.2-12.0 [facility] Platelets (Bld) [#/Vol] 201 10*3/uL 150-450 [facility] No Panel InformationOrdered By: Genna Zuniga on 07-31-2023 CA 15-3 Antigen 24.8 U/mL 0.0-25.0 [facility] Comment on above: [employer] El ectrochemiluminescence Immunoassay(ECLIA)Values obtained with different assay methods or kits cannotbe used interchangeably. Results cannot be interpreted asabsolute evidence of the presence or absence of malignantdisease.Performed at: [facility] [address] [id number] Director: Ervin Hitchcock PhD, Phone: [phone] CA 27.29 27.7 U/mL 0.0-38.6 [facility] Comment on above: [employer] Nuvolaaur Immu nochemiluminometric Methodology (ICMA)Values obtained with different assay methods or kits cannotbe used interchangeably. Results cannot be interpreted asabsolute evidence of the presence or absence of malignantdisease. Estimated Creatinine Clearance Calc 98.30 ml/min [facility] Estimated GFR (MDRD) Amer 92 mL/min >60 [facility] Comment on above: GFR Calc Estimated GFR (MDRD) Non-Af Amer 76 mL/min >60 [facility] Comment on above: Non- GFR Calc No Panel InformationOrdered By: Cristóbal Ford on 07-31-2023 Miscellaneous Test Comment SEE SCANNED REPORT [facility] RBC Auto (Bld) [#/Vol]Ordere d By: Genna Zuniga on 07-31-2023 RBC (Bld) [#/Vol] 4.21 10*6/uL 4.2-5.4 [facility] Serum or plasma calcium paul urement (mass/volume)Ordered By: Genna Zuniga on 07-31-2023 Calcium [Mass/Vol] 9.6 mg/dL 8.5-10.1 [facility] Serum or plasma creatinine m easurement (mass/volume)Ordered By: Genna Zuniga on 07-31-2023 Creatinine [Mass/Vol] 0.83 mg/dL 0.55-1.02 [facility] Comment on above: The validity of the calculated GFR & GFRAA in patients over 70 years has not been determined. Clinical correlation is essential. Serum or plasma urea nitroge n measurement (mass/volume)Ordered By: Genna Zuniga on 07-31-2023 Urea nitrogen [Mass/Vol] 20 mg/dL 7-18 [facility] Thin prep Papanicolaou smear with manual screeningOrdered By: Genna Zuniga on 07-31-2023 Thin prep Papanicolaou smear with manual screening 3.7 g/dL 3.2-5.0 [facility] Thin prep Papanicolaou smear with manual screening 44 U/L 15-37 [facility] Thin prep Papanicolaou smear with manual screening 6 5-15 [facility] Basophil percentageOrdered B y: Jesus Varma on 06-26-2023 Cholesterol [Mass/Vol] 142 mg/dL <200 [facility] Comment on above: <200 mg/dL Desirable 200-240 mg/dL Borderline >240 mg/dL High Risk Triglyceride [Mass/Vol] 187 mg/dL <199 [facility] Comment on above: The drugs N-Acetylcy steine and Metamizole may falsely depress this assay.Serum Triglycerides Reference Interval Normal <150 mg/dL Borderline high 150 - 199 mg/dL High 200 - 499 mg/dL Very High > or = 500 mg/dL Direct bilirubinOrdered By: Jesus Varma on 06-26-2023 Bilirubin.direct [Mass/Vol] 0.16 mg/dL 0.00-0.30 [facility] Laboratory - Chemistry and C hemistry - challengeOrdered By: Jesus Varma on 06-26-2023 Cholesterol in HDL (Body fld) [Mass/Vol] 53 mg/dL >40 [facility] Comment on above: The drugs N-Acetylcy steine and Metamizole may falsely depress this assay. Reference Range HDL <40 mg/dL Low HDL Cholesterol HDL >or= 60 mg/dL High HDL Cholesterol Cholesterol in LDL (Body fld) [Moles/Vol] 52 mg/dL 0-130 [facility] Cholesterol in VLDL Calc [Moles/Vol] 37 mg/dL 5-40 [facility] Office Visiton 05-13-2023 Follow-up visit [id number] Tania Russell 1970 F Date Provider Department Center 05/13/2023 [id number] GOLDBERG V [facility] OB Offi Family History Problem Relation Age of Onset Diabetes Mother Stroke Paternal Grandmother Colon cancer Maternal Grandfather Family Status - Relation Status Age at Mother Alive Paternal Grandmother Maternal Grandfather Father Level of Service:17106 [place] OFFICE/OUTPATIENT ESTABLISHED LOW [facility] 20-29 MIN Reason for Visit and Comments: Vaginal Bleeding [463965] Normal [facility]ide[facility] Progress Noteon 05-13-2023 Progress Note Chief Complaint [...] Left breast lesion. Pathologic Diagnosis Outside Slides: [id number] (06/06/2022) A. Left Breast at 2 o'clock, [...] breast cancer No follow-ups on file. Normal [facility] LIPIDon 04-30-2023 Cholesterol [Mass/Vol] 151 mg/dL Normal 0-200 [facility] ([place]) Comment on above: Result Comment: Chol esterol Reference Interval: Less than 200 Desirable 200-239 Borderline high risk 240 and above High risk Performed By: #### L IPID #### [id number] [place], [place] [address] Cholesterol in HDL [Mass/Vol] 55 mg/dL Normal 40-60 [facility] ([place]) Comment on above: Performed By: #### L IPID #### [facility] [address] [place], [place] [address] Cholesterol in LDL [Mass/Vol] 67 mg/dL Normal 0-130 [facility] ([place]) Comment on above: Performed By: #### L IPID #### [facility] [address] [place], [place] [address] Triglyceride [Mass/Vol] 143 mg/dL Normal 0-150 [facility] ([place]) Comment on above: Result Comment: Trig lyceride Reference Interval: Less than 150 Normal 150-199 Borderline high risk 200-499 High risk 500 or higher Very high risk Performed By: #### L IPID #### [facility] [address] [place], [place] [address] Absolute lymphocyte countOrd ered By: Genna Zuniga on 04-24-2023 Lymphocytes Auto (Unsp spec) [#/Vol] 2.53 10*3/uL 0.83-4.51 [facility] Basophil percentageOrdered B y: Genna Zuniga on 04-24-2023 Basophils/100 WBC (Bld) 0.2 % 0-1 [facility] Bilirubin [Mass/Vol] 0.30 mg/dL 0.20-1.00 [facility] Comment on above: For patients on eltr ombopag therapy, use of Dimension [place] TBIL is not recommended. Chloride [Moles/Vol] 111 mmol/L 98-107 [facility] Eosinophils/100 WBC (Bld) 0.9 % 0-5 [facility] Glucose [Mass/Vol] 106 mg/dL 74-106 [facility] Comment on above: Fasting Glucose resu lt from 100 to 125 mg/dL suggests IMPAIRED HOMEOSTASIS per A.D.A. criteria. Neutrophils (Bld) [#/Vol] 5.4 10*3/uL 2.0-7.7 [facility] Neutrophils/100 WBC (Bld) 62.8 % 47-70 [facility] Potassium [Moles/Vol] 3.6 mmol/L 3.5-5.1 [facility] Protein [Mass/Vol] 7.0 g/dL 6.4-8.2 [facility] Sodium [Moles/Vol] 144 mmol/L 136-145 [facility] WBC (Bld) [#/Vol] 8.6 10*3/uL 4.4-11.0 [facility] Blood erythrocytes count (nu mber/volume)Ordered By: Genna Zuniga on 04-24-2023 RBC (Bld) [#/Vol] 4.11 10*6/uL 4.2-5.4 [facility] Blood hemoglobin measurement (mass/volume)Ordered By: Genna Zuniga on 04-24-2023 Hemoglobin (Bld) [Mass/Vol] 13.1 g/dL 12.0-15.0 [facility] Blood lymphocytes/100 leukoc ytesOrdered By: Genna Zuniga on 04-24-2023 Lymphocytes/100 WBC (Bld) 29.5 % 19-41 [facility] Blood monocytes/100 leukocyt esOrdered By: [facility] Aleksander on 04-24-2023 Monocytes/100 WBC (Bld) 6.4 % 0-10 [facility] Blood platelet mean volumeOr dered By: Genna Zuniga on 04-24-2023 Platelet mean volume (Bld) [Entitic vol] 9.0 fL 6.2-12.0 [facility] Determination of erythrocyte mean corpuscular volume (MCV)Ordered By: Genna Zuniga on 04-24-2023 MCV (RBC) [Entitic vol] 98.5 fL 81-99 [facility] Hematocrit Auto (Bld) [Volum e fraction]Ordered By: Genna Zuniga on 04-24-2023 Hematocrit (Bld) [Volume fraction] 40.5 % 37-47 [facility] Laboratory - Chemistry and C hemistry - challengeOrdered By: Genna Zuniga on 04-24-2023 ALP [Catalytic activity/Vol] 40 U/L 45-117 [facility] ALT [Catalytic activity/Vol] 34 U/L 13-56 [facility] CO2 [Moles/Vol] 29.0 mmol/L 21.0-32.0 [facility] Globulin (S) [Mass/Vol] 3.2 g/dL 2.2-4.2 [facility] Urea nitrogen/Creatinine [Mass ratio] 30.3 mg/mg 10-20 [facility] Laboratory - Hematology and Cell countsOrdered By: Genna Zuniga on 04-24-2023 Erythrocyte distribution width (RBC) [Entitic vol] 47.6 fL 35.1-43.9 [facility] Erythrocyte distribution width (RBC) [Ratio] 13.2 % 11.6-14.6 [facility] Immature granulocytes/100 WBC (Bld) 0.200 % 0.0-0.9 [facility] Comment on above: IG% - Immature Granu locytes (promyelocytes, myelocytes and metamyelocytes) > 1% indicates that a LEFT SHIFT is Present. MCH (RBC) [Entitic mass] 31.9 pg 27.0-32.0 [facility] Nucleated RBC/100 WBC (Bld) [Ratio] 0 % 0-5 [facility] MCHC Auto (RBC) [Mass/Vol]Or dered By: Genna Zuniga on 04-24-2023 MCHC (RBC) [Mass/Vol] 32.3 g/dL 32-36 [facility] No Panel InformationOrdered By: Genna Zuniga on 04-24-2023 Miscellaneous Test Comment MAILED SPECIMEN [facility] CA 15-3 Antigen 20.9 U/mL 0.0-25.0 [facility] Comment on above: [employer] El ectrochemiluminescence Immunoassay(ECLIA)Values obtained with different assay methods or kits cannotbe used interchangeably. Results cannot be interpreted asabsolute evidence of the presence or absence of malignantdisease.Performed at: [facility] [id number] Director: Ervin Hitchcock PhD, Phone: [phone] CA 27.29 21.2 U/mL 0.0-38.6 [facility] Comment on above: [employer] N[employer]aur Immu nochemiluminometric Methodology (ICMA)Values obtained with different assay methods or kits cannotbe used interchangeably. Results cannot be interpreted asabsolute evidence of the presence or absence of malignantdisease. Estimated Creatinine Clearance Calc 90.11 ml/min [facility] Estimated GFR (MDRD) Amer 108 mL/min >60 [facility] Comment on above: GFR Calc Estimated GFR (MDRD) Non-Af Amer 89 mL/min >60 [facility] Comment on above: Non- GFR Calc Platelets bldOrdered By: David Zuniga on 04-24-2023 Platelets (Bld) [#/Vol] 200 10*3/uL 150-450 [facility] Serum or plasma albumin paul urement (mass/volume)Ordered By: Genna Zuniga on 04-24-2023 Albumin [Mass/Vol] 3.8 g/dL 3.2-5.0 [facility] Serum or plasma albumin/glob ulin mass ratioOrdered By: Genna Zuniga on 04-24-2023 Albumin/Globulin [Mass ratio] 1.2 {ratio} 0.9-2.4 [facility] Serum or plasma calcium paul urement (mass/volume)Ordered By: Genna Zuniga on 04-24-2023 Calcium [Mass/Vol] 9.6 mg/dL 8.5-10.1 [facility] Serum or plasma creatinine m easurement (mass/volume)Ordered By: Genna Zuniga on 04-24-2023 Creatinine [Mass/Vol] 0.72 mg/dL 0.55-1.02 [facility] Comment on above: The validity of the calculated GFR & GFRAA in patients over 70 years has not been determined. Clinical correlation is essential. Serum or plasma urea nitroge n measurement (mass/volume)Ordered By: Genna Zuniga on 04-24-2023 Urea nitrogen [Mass/Vol] 22 mg/dL 7-18 [facility] Thin prep Papanicolaou smear with manual screeningOrdered By: Genna Zuniga on 04-24-2023 Thin prep Papanicolaou smear with manual screening 22 U/L 15-37 [facility] Thin prep Papanicolaou smear with manual screening 4 5-15 [facility] Absolute lymphocyte countOrd ered By: Cristóbal Ford on 03-13-2023 Lymphocytes Auto (Unsp spec) [#/Vol] 2.25 10*3/uL 0.83-4.51 [facility] Basophil percentageOrdered B y: Cristóbal Ford on 03-13-2023 Basophils/100 WBC (Bld) 0.3 % 0-1 [facility] Bilirubin [Mass/Vol] 0.40 mg/dL 0.20-1.00 [facility] Comment on above: For patients on eltr ombopag therapy, use of Dimension [place] TBIL is not recommended. Chloride [Moles/Vol] 110 mmol/L 98-107 [facility] Eosinophils/100 WBC (Bld) 0.5 % 0-5 [facility] Glucose [Mass/Vol] 91 mg/dL 74-106 [facility] LDH [Catalytic activity/Vol] 183 U/L 84-246 [facility] Neutrophils (Bld) [#/Vol] 5.9 10*3/uL 2.0-7.7 [facility] Neutrophils/100 WBC (Bld) 66.7 % 47-70 [facility] Potassium [Moles/Vol] 3.7 mmol/L 3.5-5.1 [facility] Protein [Mass/Vol] 6.6 g/dL 6.4-8.2 [facility] Sodium [Moles/Vol] 141 mmol/L 136-145 [facility] WBC (Bld) [#/Vol] 8.8 10*3/uL 4.4-11.0 [facility] Blood erythrocytes count (nu mber/volume)Ordered By: Cristóbal Ford on 03-13-2023 RBC (Bld) [#/Vol] 4.16 10*6/uL 4.2-5.4 [facility] Blood hemoglobin measurement (mass/volume)Ordered By: Cristóbal Ford on 03-13-2023 Hemoglobin (Bld) [Mass/Vol] 13.0 g/dL 12.0-15.0 [facility] Blood lymphocytes/100 leukoc ytesOrdered By: Cristóbal Ford on 03-13-2023 Lymphocytes/100 WBC (Bld) 25.5 % 19-41 [facility] Blood monocytes/100 leukocyt esOrdered By: Cristóbal Ford on 03-13-2023 Monocytes/100 WBC (Bld) 6.5 % 0-10 [facility] Blood platelet mean volumeOr dered By: Cristóbal Ford on 03-13-2023 Platelet mean volume (Bld) [Entitic vol] 8.8 fL 6.2-12.0 [facility] Determination of erythrocyte mean corpuscular volume (MCV)Ordered By: Cristóbal Ford on 03-13-2023 MCV (RBC) [Entitic vol] 99.8 fL 81-99 [facility] Hematocrit Auto (Bld) [Volum e fraction]Ordered By: Cristóbal Ford on 03-13-2023 Hematocrit (Bld) [Volume fraction] 41.5 % 37-47 [facility] Laboratory - Chemistry and C hemistry - challengeOrdered By: Cristóbal Ford on 03-13-2023 ALP [Catalytic activity/Vol] 38 U/L 45-117 [facility] ALT [Catalytic activity/Vol] 40 U/L 13-56 [facility] CO2 [Moles/Vol] 28.0 mmol/L 21.0-32.0 [facility] Globulin (S) [Mass/Vol] 3.1 g/dL 2.2-4.2 [facility] Urea nitrogen/Creatinine [Mass ratio] 24.7 mg/mg 10-20 [facility] Laboratory - Hematology and Cell countsOrdered By: Cristóbal Ford on 03-13-2023 Erythrocyte distribution width (RBC) [Entitic vol] 51.8 fL 35.1-43.9 [facility] Erythrocyte distribution width (RBC) [Ratio] 14.2 % 11.6-14.6 [facility] Immature granulocytes/100 WBC (Bld) 0.500 % 0.0-0.9 [facility] Comment on above: IG% - Immature Granu locytes (promyelocytes, myelocytes and metamyelocytes) > 1% indicates that a LEFT SHIFT is Present. MCH (RBC) [Entitic mass] 31.3 pg 27.0-32.0 [facility] Nucleated RBC/100 WBC (Bld) [Ratio] 0 % 0-5 [facility] MCHC Auto (RBC) [Mass/Vol]Or dered By: Cristóbal Ford on 03-13-2023 MCHC (RBC) [Mass/Vol] 31.3 g/dL 32-36 [facility] No Panel InformationOrdered By: Genna Zuniga on 03-13-2023 CA 15-3 Antigen 19.5 U/mL 0.0-25.0 [facility] Comment on above: [employer] El ectrochemiluminescence Immunoassay(ECLIA)Values obtained with different assay methods or kits cannotbe used interchangeably. Results cannot be interpreted asabsolute evidence of the presence or absence of malignantdisease.Performed at: [address], [place] [id number] Director: Ervin Hitchcock PhD, Phone: [phone] [place] 27.29 21.4 U/mL 0.0-38.6 [facility] Comment on above: [employer]aur Immu nochemiluminometric Methodology (ICMA)Values obtained with different assay methods or kits cannotbe used interchangeably. Results cannot be interpreted asabsolute evidence of the presence or absence of malignantdisease. No Panel InformationOrdered By: Cristóbal Ford on 03-13-2023 Estimated Creatinine Clearance Calc 68.56 ml/min [facility] Estimated GFR (MDRD) Amer 95 mL/min >60 [facility] Comment on above: GFR Calc Estimated GFR (MDRD) Non-Af Amer 78 mL/min >60 [facility] Comment on above: Non- GFR Calc Platelets bldOrdered By: Jose G Ford on 03-13-2023 Platelets (Bld) [#/Vol] 178 10*3/uL 150-450 [facility] Serum or plasma albumin paul urement (mass/volume)Ordered By: Cristóbal Ford on 03-13-2023 Albumin [Mass/Vol] 3.5 g/dL 3.2-5.0 [facility] Serum or plasma albumin/glob ulin mass ratioOrdered By: Cristóbal Ford on 03-13-2023 Albumin/Globulin [Mass ratio] 1.1 {ratio} 0.9-2.4 [facility] Serum or plasma calcium paul urement (mass/volume)Ordered By: Cristóbal Ford on 03-13-2023 Calcium [Mass/Vol] 9.8 mg/dL 8.5-10.1 [facility] Serum or plasma creatinine m easurement (mass/volume)Ordered By: Cristóbal Ford on 03-13-2023 Creatinine [Mass/Vol] 0.81 mg/dL 0.55-1.02 [facility] Comment on above: The validity of the calculated GFR & GFRAA in patients over 70 years has not been determined. Clinical correlation is essential. Serum or plasma urea nitroge n measurement (mass/volume)Ordered By: Cristóbal Ford on 03-13-2023 Urea nitrogen [Mass/Vol] 20 mg/dL 7-18 [facility] Thin prep Papanicolaou smear with manual screeningOrdered By: Cristóbal Ford on 03-13-2023 Thin prep Papanicolaou smear with manual screening 21 U/L 15-37 [facility] Thin prep Papanicolaou smear with manual screening 3 5-15 [facility] Absolute lymphocyte countOrd ered By: Genna Zuniga on 01-23-2023 Lymphocytes Auto (Unsp spec) [#/Vol] 2.31 10*3/uL 0.83-4.51 [facility] Basophil percentageOrdered B y: Genna Zuniga on 01-23-2023 Basophils/100 WBC (Bld) 0.2 % 0-1 [facility] Bilirubin [Mass/Vol] 0.30 mg/dL 0.20-1.00 [facility] Comment on above: For patients on eltr ombopag therapy, use of Dimension [place] TBIL is not recommended. Chloride [Moles/Vol] 108 mmol/L 98-107 [facility] Eosinophils/100 WBC (Bld) 0.7 % 0-5 [facility] Glucose [Mass/Vol] 114 mg/dL 74-106 [facility] Comment on above: Fasting Glucose resu lt from 100 to 125 mg/dL suggests IMPAIRED HOMEOSTASIS per A.D.A. criteria. LDH [Catalytic activity/Vol] 186 U/L 84-246 [facility] Neutrophils (Bld) [#/Vol] 5.7 10*3/uL 2.0-7.7 [facility] Neutrophils/100 WBC (Bld) 65.7 % 47-70 [facility] Potassium [Moles/Vol] 3.5 mmol/L 3.5-5.1 [facility] Protein [Mass/Vol] 6.9 g/dL 6.4-8.2 [facility] Sodium [Moles/Vol] 141 mmol/L 136-145 [facility] WBC (Bld) [#/Vol] 8.6 10*3/uL 4.4-11.0 [facility] Blood erythrocytes count (nu mber/volume)Ordered By: Genna Zuniga on 01-23-2023 RBC (Bld) [#/Vol] 4.06 10*6/uL 4.2-5.4 [facility] Blood hemoglobin measurement (mass/volume)Ordered By: Genna Zuniga on 01-23-2023 Hemoglobin (Bld) [Mass/Vol] 12.9 g/dL 12.0-15.0 [facility] Blood lymphocytes/100 leukoc ytesOrdered By: Genna Aleksander on 01-23-2023 Lymphocytes/100 WBC (Bld) 26.8 % 19-41 [facility] Blood monocytes/100 leukocyt esOrdered By: [facility] Aleksander on 01-23-2023 Monocytes/100 WBC (Bld) 6.0 % 0-10 [facility] Blood platelet mean volumeOr dered By: Genna Aleksander on 01-23-2023 Platelet mean volume (Bld) [Entitic vol] 8.9 fL 6.2-12.0 [facility] Determination of erythrocyte mean corpuscular volume (MCV)Ordered By: [facility] Aleksander on 01-23-2023 MCV (RBC) [Entitic vol] 100.7 fL 81-99 [facility] Hematocrit Auto (Bld) [Volum e fraction]Ordered By: Genna Aleksander on 01-23-2023 Hematocrit (Bld) [Volume fraction] 40.9 % 37-47 [facility] Laboratory - Chemistry and C hemistry - challengeOrdered By: [facility] ALP [Catalytic activity/Vol] 41 U/L 45-117 [facility] ALT [Catalytic activity/Vol] 30 U/L 13-56 [facility] CO2 [Moles/Vol] 28.0 mmol/L 21.0-32.0 [facility] Globulin (S) [Mass/Vol] 3.4 g/dL 2.2-4.2 [facility] Urea nitrogen/Creatinine [Mass ratio] 20.9 mg/mg 10-20 [facility] Laboratory - Hematology and Cell countsOrdered By: Genna Aleksander on 01-23-2023 Erythrocyte distribution width (RBC) [Entitic vol] 48.5 fL 35.1-43.9 [facility] Erythrocyte distribution width (RBC) [Ratio] 13.1 % 11.6-14.6 [facility] Immature granulocytes/100 WBC (Bld) 0.600 % 0.0-0.9 [facility] Comment on above: IG% - Immature Granu locytes (promyelocytes, myelocytes and metamyelocytes) > 1% indicates that a LEFT SHIFT is Present. MCH (RBC) [Entitic mass] 31.8 pg 27.0-32.0 [facility] Nucleated RBC/100 WBC (Bld) [Ratio] 0 % 0-5 [facility] MCHC Auto (RBC) [Mass/Vol]Or dered By: Genna Zuniga on 01-23-2023 MCHC (RBC) [Mass/Vol] 31.5 g/dL 32-36 [facility] No Panel InformationOrdered By: Genna Zuniga on 01-23-2023 CA 15-3 Antigen 19.6 U/mL 0.0-25.0 [facility] Comment on above: [employer] El ectrochemiluminescence Immunoassay(ECLIA)Values obtained with different assay methods or kits cannotbe used interchangeably. Results cannot be interpreted asabsolute evidence of the presence or absence of malignantdisease.Performed at: [place] [id number] Director: Ervin Hitchcock PhD, Phone: [phone] [place] 27.29 21.8 U/mL 0.0-38.6 [facility] Comment on above: [employer] [place] Immu nochemiluminometric Methodology (ICMA)Values obtained with different assay methods or kits cannotbe used interchangeably. Results cannot be interpreted asabsolute evidence of the presence or absence of malignantdisease. Estimated Creatinine Clearance Calc 65.33 ml/min [facility] Estimated GFR (MDRD) Amer 88 mL/min >60 [facility] Comment on above: GFR Calc Estimated GFR (MDRD) Non-Af Amer 73 mL/min >60 [facility] Comment on above: Non- GFR Calc Platelets bldOrdered By: David Zuniga on 01-23-2023 Platelets (Bld) [#/Vol] 182 10*3/uL 150-450 [facility] Serum or plasma albumin paul urement (mass/volume)Ordered By: Genna Zuniga on 01-23-2023 Albumin [Mass/Vol] 3.5 g/dL 3.2-5.0 [facility] Serum or plasma albumin/glob ulin mass ratioOrdered By: Genna Zuniga on 01-23-2023 Albumin/Globulin [Mass ratio] 1.0 {ratio} 0.9-2.4 [facility] Serum or plasma calcium paul urement (mass/volume)Ordered By: Genna Zuniga on 01-23-2023 Calcium [Mass/Vol] 9.6 mg/dL 8.5-10.1 [facility] Serum or plasma creatinine m easurement (mass/volume)Ordered By: Genna Zuniga on 01-23-2023 Creatinine [Mass/Vol] 0.86 mg/dL 0.55-1.02 [facility] Comment on above: The validity of the calculated GFR & GFRAA in patients over 70 years has not been determined. Clinical correlation is essential. Serum or plasma urea nitroge n measurement (mass/volume)Ordered By: Genna Zuniga on 01-23-2023 Urea nitrogen [Mass/Vol] 18 mg/dL 7-18 [facility] Thin prep Papanicolaou smear with manual screeningOrdered By: Genan Zuniga on 01-23-2023 Thin prep Papanicolaou smear with manual screening 20 U/L 15- [facility] Thin prep Papanicolaou smear with manual screening 5 5-15 [facility] Absolute lymphocyte countOrd ered By: Cristóbal Ford on 11-21-2022 Lymphocytes Auto (Unsp spec) [#/Vol] 1.96 10*3/uL 0.83-4.51 [facility] Basophil percentageOrdered B y: Cristóbal Ford on 11-21-2022 Basophils/100 WBC (Bld) 0.3 % 0-1 [facility] Bilirubin [Mass/Vol] 0.30 mg/dL 0.20-1.00 [facility] Comment on above: For patients on eltr ombopag therapy, use of Dimension [place] TBIL is not recommended. Chloride [Moles/Vol] 110 mmol/L 98-107 [facility] Eosinophils/100 WBC (Bld) 0.4 % 0-5 [facility] Glucose [Mass/Vol] 109 mg/dL 74-106 [facility] Comment on above: Fasting Glucose resu lt from 100 to 125 mg/dL suggests IMPAIRED HOMEOSTASIS per A.D.A. criteria. LDH [Catalytic activity/Vol] 227 U/L 84-246 [facility] Neutrophils (Bld) [#/Vol] 6.6 10*3/uL 2.0-7.7 [facility] Neutrophils/100 WBC (Bld) 71.1 % 47-70 [facility] Potassium [Moles/Vol] 3.7 mmol/L 3.5-5.1 [facility] Protein [Mass/Vol] 6.5 g/dL 6.4-8.2 [facility] Sodium [Moles/Vol] 142 mmol/L 136-145 [facility] WBC (Bld) [#/Vol] 9.2 10*3/uL 4.4-11.0 [facility] Blood erythrocytes count (nu mber/volume)Ordered By: Cristóbal Ford on 11-21-2022 RBC (Bld) [#/Vol] 3.57 10*6/uL 4.2-5.4 [facility] Blood hemoglobin measurement (mass/volume)Ordered By: Cristóbal Ford on 11-21-2022 Hemoglobin (Bld) [Mass/Vol] 12.0 g/dL 12.0-15.0 [facility] Blood lymphocytes/100 leukoc ytesOrdered By: Cristóbal Ford on 11-21-2022 Lymphocytes/100 WBC (Bld) 21.3 % 19-41 [facility] Blood monocytes/100 leukocyt esOrdered By: Cristóbal Ford on 11-21-2022 Monocytes/100 WBC (Bld) 6.6 % 0-10 [facility] Blood platelet mean volumeOr dered By: Cristóbal Ford on 11-21-2022 Platelet mean volume (Bld) [Entitic vol] 8.9 fL 6.2-12.0 [facility] Determination of erythrocyte mean corpuscular volume (MCV)Ordered By: Cristóbal Ford on 11-21-2022 MCV (RBC) [Entitic vol] 107.3 fL 81-99 [facility] Hematocrit Auto (Bld) [Volum e fraction]Ordered By: Cristóbal Ford on 11-21-2022 Hematocrit (Bld) [Volume fraction] 38.3 % 37-47 [facility] Laboratory - Chemistry and C hemistry - challengeOrdered By: Cristóbal Waldron on 11-21-2022 ALP [Catalytic activity/Vol] 37 U/L 45-117 [facility] ALT [Catalytic activity/Vol] 19 U/L 13-56 [facility] CO2 [Moles/Vol] 26.0 mmol/L 21.0-32.0 [facility] Globulin (S) [Mass/Vol] 3.2 g/dL 2.2-4.2 [facility] Urea nitrogen/Creatinine [Mass ratio] 20.2 mg/mg 10-20 [facility] Laboratory - Hematology and Cell countsOrdered By: Cristóbal Vanita on 11-21-2022 Erythrocyte distribution width (RBC) [Entitic vol] 58.4 fL 35.1-43.9 [facility] Erythrocyte distribution width (RBC) [Ratio] 14.6 % 11.6-14.6 [facility] Immature granulocytes/100 WBC (Bld) 0.300 % 0.0-0.9 [facility] Comment on above: IG% - Immature Granu locytes (promyelocytes, myelocytes and metamyelocytes) > 1% indicates that a LEFT SHIFT is Present. MCH (RBC) [Entitic mass] 33.6 pg 27.0-32.0 [facility] Nucleated RBC/100 WBC (Bld) [Ratio] 0 % 0-5 [facility] MCHC Auto (RBC) [Mass/Vol]Or dered By: Cristóbal Ford on 11-21-2022 MCHC (RBC) [Mass/Vol] 31.3 g/dL 32-36 [facility] No Panel InformationOrdered By: Cristóbal Ford on 11-21-2022 CA 15-3 Antigen 27.0 U/mL 0.0-25.0 [facility] Comment on above: [employer] El ectrochemiluminescence Immunoassay(ECLIA)Values obtained with different assay methods or kits cannotbe used interchangeably. Results cannot be interpreted asabsolute evidence of the presence or absence of malignantdisease.Performed at: [facility] [employer] [id number] Director: Ervin Hitchcock PhD, Phone: [phone] CA 27.29 29.7 U/mL 0.0-38.6 [facility] Comment on above: [employer] Immu nochemiluminometric Methodology (ICMA)Values obtained with different assay methods or kits cannotbe used interchangeably. Results cannot be interpreted asabsolute evidence of the presence or absence of malignantdisease. Estimated Creatinine Clearance Calc 66.88 ml/min [facility] Estimated GFR (MDRD) Amer 91 mL/min >60 [facility] Comment on above: GFR Calc Estimated GFR (MDRD) Non-Af Amer 75 mL/min >60 [facility] Comment on above: Non- GFR Calc Platelets bldOrdered By: Jose G Ford on 11-21-2022 Platelets (Bld) [#/Vol] 211 10*3/uL 150-450 [facility] Serum or plasma albumin paul urement (mass/volume)Ordered By: Cristóbal Ford on 11-21-2022 Albumin [Mass/Vol] 3.3 g/dL 3.2-5.0 [facility] Serum or plasma albumin/glob ulin mass ratioOrdered By: Cristóbal Ford on 11-21-2022 Albumin/Globulin [Mass ratio] 1.0 {ratio} 0.9-2.4 [facility] Serum or plasma calcium paul urement (mass/volume)Ordered By: Cristóbal Ford on 11-21-2022 Calcium [Mass/Vol] 9.6 mg/dL 8.5-10.1 [facility] Serum or plasma creatinine m easurement (mass/volume)Ordered By: Cristóbal Ford on 11-21-2022 Creatinine [Mass/Vol] 0.84 mg/dL 0.55-1.02 [facility] Comment on above: The validity of the calculated GFR & GFRAA in patients over 70 years has not been determined. Clinical correlation is essential. Serum or plasma urea nitroge n measurement (mass/volume)Ordered By: Cristóbal Ford on 11-21-2022 Urea nitrogen [Mass/Vol] 17 mg/dL 7-18 [facility] Thin prep Papanicolaou smear with manual screeningOrdered By: Cristóbal Ford on 11-21-2022 Thin prep Papanicolaou smear with manual screening 14 U/L 15-37 [facility] Thin prep Papanicolaou smear with manual screening 6 5-15 [facility] Absolute lymphocyte countOrd ered By: Dr. Ford on 10-31-2022 Lymphocytes Auto (Unsp spec) [#/Vol] 1.80 10*3/uL 0.83-4.51 [facility] Basophil percentageOrdered B y: Dr. Ford on 10-31-2022 Basophil percentage 2.4 mg/dL 2.5-4.9 [facility] Basophils/100 WBC (Bld) 0.1 % 0-1 [facility] Bilirubin [Mass/Vol] 0.30 mg/dL 0.20-1.00 [facility] Comment on above: For patients on eltr ombopag therapy, use of Dimension [place] TBIL is not recommended. Chloride [Moles/Vol] 110 mmol/L 98-107 [facility] Eosinophils/100 WBC (Bld) 0.0 % 0-5 [facility] Glucose [Mass/Vol] 101 mg/dL 74-106 [facility] Comment on above: Fasting Glucose resu lt from 100 to 125 mg/dL suggests IMPAIRED HOMEOSTASIS per A.D.A. criteria. LDH [Catalytic activity/Vol] 264 U/L 84-246 [facility] Neutrophils (Bld) [#/Vol] 4.4 10*3/uL 2.0-7.7 [facility] Neutrophils/100 WBC (Bld) 61.9 % 47-70 [facility] Potassium [Moles/Vol] 3.8 mmol/L 3.5-5.1 [facility] Protein [Mass/Vol] 5.9 g/dL 6.4-8.2 [facility] Sodium [Moles/Vol] 142 mmol/L 136-145 [facility] WBC (Bld) [#/Vol] 7.2 10*3/uL 4.4-11.0 [facility] Blood erythrocytes count (nu mber/volume)Ordered By: Dr. Ford on 10-31-2022 RBC (Bld) [#/Vol] 3.24 10*6/uL 4.2-5.4 [facility] Blood hemoglobin measurement (mass/volume)Ordered By: Dr. Ford on 10-31-2022 Hemoglobin (Bld) [Mass/Vol] 11.0 g/dL 12.0-15.0 [facility] Blood lymphocytes/100 leukoc ytesOrdered By: Dr. Ford on 10-31-2022 Lymphocytes/100 WBC (Bld) 25.1 % 19-41 [facility] Blood monocytes/100 leukocyt esOrdered By: Dr. Ford on 10-31-2022 Monocytes/100 WBC (Bld) 12.5 % 0-10 [facility] Blood platelet mean volumeOr dered By: Dr. Ford on 10-31-2022 Platelet mean volume (Bld) [Entitic vol] 9.0 fL 6.2-12.0 [facility] Determination of erythrocyte mean corpuscular volume (MCV)Ordered By: Dr. Ford on 10-31-2022 MCV (RBC) [Entitic vol] 105.9 fL 81-99 [facility] Hematocrit Auto (Bld) [Volum e fraction]Ordered By: Dr. Ford on 10-31-2022 Hematocrit (Bld) [Volume fraction] 34.3 % 37-47 [facility] Laboratory - Chemistry and C hemistry - challengeOrdered By: Dr. Ford on 10-31-2022 ALP [Catalytic activity/Vol] 36 U/L 45-117 [facility] ALT [Catalytic activity/Vol] 22 U/L 13-56 [facility] CO2 [Moles/Vol] 27.0 mmol/L 21.0-32.0 [facility] Globulin (S) [Mass/Vol] 2.8 g/dL 2.2-4.2 [facility] Urea nitrogen/Creatinine [Mass ratio] 23.3 mg/mg 10-20 [facility] Laboratory - Hematology and Cell countsOrdered By: Dr. Ford on 10-31-2022 Erythrocyte distribution width (RBC) [Entitic vol] 64.0 fL 35.1-43.9 [facility] Erythrocyte distribution width (RBC) [Ratio] 16.4 % 11.6-14.6 [facility] Immature granulocytes/100 WBC (Bld) 0.400 % 0.0-0.9 [facility] Comment on above: IG% - Immature Granu locytes (promyelocytes, myelocytes and metamyelocytes) > 1% indicates that a LEFT SHIFT is Present. MCH (RBC) [Entitic mass] 34.0 pg 27.0-32.0 [facility] Nucleated RBC/100 WBC (Bld) [Ratio] 0 % 0-5 [facility] MCHC Auto (RBC) [Mass/Vol]Or dered By: Dr. Ford on 10-31-2022 MCHC (RBC) [Mass/Vol] 32.1 g/dL 32-36 [facility] No Panel InformationOrdered By: Dr. Ford on 10-31-2022 Miscellaneous Test Comment MAILED SPECIMEN [facility] Estimated Creatinine Clearance Calc 72.96 ml/min [facility] Estimated GFR (MDRD) Amer 100 mL/min >60 [facility] Comment on above: GFR Calc Estimated GFR (MDRD) Non-Af Amer 83 mL/min >60 [facility] Comment on above: Non- GFR Calc Platelets bldOrdered By: Dr. Ford on 10-31-2022 Platelets (Bld) [#/Vol] 134 10*3/uL 150-450 [facility] PotassiumOrdered By: Cristóbal Ford on 10-31-2022 Potassium [Mass/Vol] 2.4 mg/dL Low 2.5-4.9 [facility] Serum or plasma albumin paul urement (mass/volume)Ordered By: Dr. Ford on 10-31-2022 Albumin [Mass/Vol] 3.1 g/dL 3.2-5.0 [facility] Serum or plasma albumin/glob ulin mass ratioOrdered By: Dr. Ford on 10-31-2022 Albumin/Globulin [Mass ratio] 1.1 {ratio} 0.9-2.4 [facility] Serum or plasma calcium paul urement (mass/volume)Ordered By: Dr. Ford on 10-31-2022 Calcium [Mass/Vol] 9.0 mg/dL 8.5-10.1 [facility] Serum or plasma creatinine m easurement (mass/volume)Ordered By: Dr. Ford on 10-31-2022 Creatinine [Mass/Vol] 0.77 mg/dL 0.55-1.02 [facility] Comment on above: The validity of the calculated GFR & GFRAA in patients over 70 years has not been determined. Clinical correlation is essential. Serum or plasma urea nitroge n measurement (mass/volume)Ordered By: Dr. Ford on 10-31-2022 Urea nitrogen [Mass/Vol] 18 mg/dL 7-18 [facility] Thin prep Papanicolaou smear with manual screeningOrdered By: Dr. Ford on 10-31-2022 Thin prep Papanicolaou smear with manual screening 20 U/L 15-37 [facility] Thin prep Papanicolaou smear with manual screening 5 5-15 [facility] Trichomonas screening testOr dered By: Cristóbal Ford on 10-31-2022 Phosphorus Level 2.4 mg/dL Low 2.5-4.9 [facility] Laboratory - Chemistry and C hemistry - challengeOrdered By: Dr. Ford on 10-10-2022 Magnesium [Mass/Vol] 2.0 mg/dL 1.6-2.6 [facility] SURG PATH REQUESTon 10-05-19 Case Report Normal [facility] Comment on above: Result Comment: Surg ical Pathology Report Case: [id number] Authorizing Provider: Josh Mancuso MD Collected: 10/04/2022 11:36 AM Ordering Location[facility] Received: 10/04/2022 11:36 AM [facility] Pathologist: TAWNYA Centeno Specimen: SURG PATH, Left Breast at 2 o'clock, Core Biopsy; Left Breast at 1 o'clock, Core Biopsy Performed By: #### S URGP #### [facility] (DEFAULT) [address] [place] [address] Clinical History Normal [facility] Comment on above: Result Comment: Requ est received from Josh Mancuso MD for second opinion consultation on slides received: Perform Biomarker(s) only on outside case: 1. Facility name: [facility] 2. Accession # Unknown 3. Specimen Site: Left Breast 4. Reason for performing biomarker: Need pathology re-review and repeat ER, FL and HER2 status as a second opinion. Patient's management at [facility] is questionable. EMAIL VIANCA TRAYLOR THAT THE ORDER HAS BEEN PLACED FOR THIS PATIENT Patient's next visit with Dr Mancuso is scheduled for 10/15/22. Template #4 Breast Med Onc Coordinator should request; 1. Slides (H&E and Biomarker stained) from outside surgical pathology specimen . 2. Copies of the final pathology report from surgical pathology specimen including results of Biomarker IHC and HER2 FISH studies. 3. A sales representative education courses tissue block or 8 unstained slides cut at 4um from the specified surgical pathology specimen . Preoperative Diagnosis: Left breast lesion. Performed By: #### S URGP #### [facility] (DEFAULT) [address] [place] [address] Gross Description Normal [facility] Comment on above: Result Comment: The following material(s) are received from [facility], [address] [place] [address], with an identifying surgical pathology report that includes a copy of as well as results of PD-L1 (KEYTRUDA) IMMUNOHISTOCHEMICAL Analysis and [facility] SOLID TUMOR NGS REPORT from [facility] and a copy of the patient's Immunohistochemistry / In Situ Hybridization (BRANDY) Report: 6 H&E slide(s) and 22 non-H&E slide(s) which includes the uv ER x2, uv FL x2, uv Her2, uv Ki-67 IHC slides, labeled [id number]. Outside materials are returned in sixty (60) days under separate cover with our number recorded on them. Grosser for this case was: Celia Sandoval For Immediate Release to [facility]'s [facility] Yes Performed By: #### S URGP #### [facility] (DEFAULT) [address] [place] [id number] Microscopic Description A microscopic examination was performed. Normal [facility] Comment on above: Performed By: #### S URGP #### [facility] (DEFAULT) [address] [address] Pathologic Diagnosis Normal [facility] Comment on above: Result Comment: Outs justo Slides: [id number] (06/06/2022) A. Left Breast at 2 o'clock, [...] Performed By: #### S URGP #### [facility] ([facility]) [address] [place] [address] No Panel InformationOrdered By: Genna Zuniga on 08-29-2022 CA 15-3 Antigen 113.0 U/mL 0.0-25.0 [facility] Comment on above: [employer] El ectrochemiluminescence Immunoassay(ECLIA)Values obtained with different assay methods or kits cannotbe used interchangeably. Results cannot be interpreted asabsolute evidence of the presence or absence of malignantdisease.Performed at: [facility] [id number] [place], [place] [id number] Director: Ervin Hitchcock PhD, Phone: [phone] CA 27.29 131.6 U/mL 0.0-38.6 [facility] Comment on above: [employer]ens Nuvolaaur Immu nochemiluminometric Methodology (ICMA)Values obtained with different assay methods or kits cannotbe used interchangeably. Results cannot be interpreted asabsolute evidence of the presence or absence of malignantdisease. Serum or plasma carcinoembry onic antigen measurement (mass/volume)Ordered By: Genna Zuniga on 08-29-2022 Carcinoembryonic Ag [Mass/Vol] 4.2 ng/mL 0.0-4.7 [facility] Comment on above: Nonsmokers <3.9 Smok ers <5.6[employer] Electrochemiluminescence Immunoassay(ECLIA)Values obtained with different assay methods or kitscannot be used interchangeably. Results cannot beinterpreted as absolute evidence of the presence orabsence of malignant disease. Absolute lymphocyte countOrd ered By: Genna Zuniga on 08-22-2022 Lymphocytes Auto (Unsp spec) [#/Vol] 1.99 10*3/uL 0.83-4.51 [facility] Basophil percentageOrdered B y: Genna Zuniga on 08-22-2022 Basophils/100 WBC (Bld) 0.3 % 0-1 [facility] Chloride [Moles/Vol] 109 mmol/L 98-107 [facility] Eosinophils/100 WBC (Bld) 0.0 % 0-5 [facility] Glucose [Mass/Vol] 122 mg/dL 74-106 [facility] Comment on above: Fasting Glucose resu lt from 100 to 125 mg/dL suggests IMPAIRED HOMEOSTASIS per A.D.A. criteria. Neutrophils (Bld) [#/Vol] 6.6 10*3/uL 2.0-7.7 [facility] Neutrophils/100 WBC (Bld) 70.7 % 47-70 [facility] Potassium [Moles/Vol] 4.0 mmol/L 3.5-5.1 [facility] Comment on above: Moderate Hemolysis, Result may be falsely increased. Sodium [Moles/Vol] 142 mmol/L 136-145 [facility] WBC (Bld) [#/Vol] 9.3 10*3/uL 4.4-11.0 [facility] Blood erythrocytes count (nu mber/volume)Ordered By: Genna Zuniga on 08-22-2022 RBC (Bld) [#/Vol] 3.94 10*6/uL 4.2-5.4 [facility] Blood hemoglobin measurement (mass/volume)Ordered By: Genna Zuniga on 08-22-2022 Hemoglobin (Bld) [Mass/Vol] 12.9 g/dL 12.0-15.0 [facility] Blood lymphocytes/100 leukoc ytesOrdered By: Genna Zuniga on 08-22-2022 Lymphocytes/100 WBC (Bld) 21.3 % 19-41 [facility] Blood monocytes/100 leukocyt esOrdered By: Genna Zuniga on 08-22-2022 Monocytes/100 WBC (Bld) 6.9 % 0-10 [facility] Blood platelet mean volumeOr dered By: Genna Zuniga on 08-22-2022 Platelet mean volume (Bld) [Entitic vol] 9.3 fL 6.2-12.0 [facility] Determination of erythrocyte mean corpuscular volume (MCV)Ordered By: Genna Zuniga on 08-22-2022 MCV (RBC) [Entitic vol] 99.0 fL 81-99 [facility] Hematocrit Auto (Bld) [Volum e fraction]Ordered By: Genna Aleksander on 08-22-2022 Hematocrit (Bld) [Volume fraction] 39.0 % 37-47 [facility] Laboratory - Chemistry and C hemistry - challengeOrdered By: [facility] on 08-22-2022 CO2 [Moles/Vol] 26.0 mmol/L 21.0-32.0 [facility] Urea nitrogen/Creatinine [Mass ratio] 20.0 mg/mg 10-20 [facility] Laboratory - Hematology and Cell countsOrdered By: Genna Aleksander on 08-22-2022 Erythrocyte distribution width (RBC) [Entitic vol] 56.1 fL 35.1-43.9 [facility] Erythrocyte distribution width (RBC) [Ratio] 15.6 % 11.6-14.6 [facility] Immature granulocytes/100 WBC (Bld) 0.800 % 0.0-0.9 [facility] Comment on above: IG% - Immature Granu locytes (promyelocytes, myelocytes and metamyelocytes) > 1% indicates that a LEFT SHIFT is Present. MCH (RBC) [Entitic mass] 32.7 pg 27.0-32.0 [facility] Nucleated RBC/100 WBC (Bld) [Ratio] 0 % 0-5 [facility] MCHC Auto (RBC) [Mass/Vol]Or dered By: Genna Zuniga on 08-22-2022 MCHC (RBC) [Mass/Vol] 33.1 g/dL 32-36 [facility] No Panel InformationOrdered By: Genna Zuniga on 08-22-2022 Estimated Creatinine Clearance Calc 77.21 ml/min [facility] Estimated GFR (MDRD) Amer 90 mL/min >60 [facility] Comment on above: GFR Calc Estimated GFR (MDRD) Non-Af Amer 74 mL/min >60 [facility] Comment on above: Non- GFR Calc Platelets bldOrdered By: David Zuniga on 08-22-2022 Platelets (Bld) [#/Vol] 151 10*3/uL 150-450 [facility] Serum or plasma calcium paul urement (mass/volume)Ordered By: Genna Zuniga on 08-22-2022 Calcium [Mass/Vol] 9.6 mg/dL 8.5-10.1 [facility] Serum or plasma creatinine m easurement (mass/volume)Ordered By: Genna Zuniga on 08-22-2022 Creatinine [Mass/Vol] 0.85 mg/dL 0.55-1.02 [facility] Comment on above: The validity of the calculated GFR & GFRAA in patients over 70 years has not been determined. Clinical correlation is essential. Serum or plasma urea nitroge n measurement (mass/volume)Ordered By: Genna Zuniga on 08-22-2022 Urea nitrogen [Mass/Vol] 17 mg/dL 7-18 [facility] Thin prep Papanicolaou smear with manual screeningOrdered By: Genna Zuniga on 08-22-2022 Thin prep Papanicolaou smear with manual screening 7 5-15 [facility] Absolute lymphocyte countOrd ered By: Dr. Ford on 08-08-2022 Lymphocytes Auto (Unsp spec) [#/Vol] 1.49 10*3/uL 0.83-4.51 [facility] Basophil percentageOrdered B y: Dr. Ford on 08-08-2022 Basophils/100 WBC (Bld) 0.3 % 0-1 [facility] Bilirubin [Mass/Vol] 0.40 mg/dL 0.20-1.00 [facility] Comment on above: For patients on eltr ombopag therapy, use of Dim[place] TBIL is not recommended. Chloride [Moles/Vol] 109 mmol/L 98-107 [facility] Eosinophils/100 WBC (Bld) 0.0 % 0-5 [facility] Glucose [Mass/Vol] 139 mg/dL 74-106 [facility] Comment on above: Fasting Glucose resu lt greater than or equal to 126 mg/dL suggests DIABETES MELLITUS per A.D.A. criteria. LDH [Catalytic activity/Vol] 239 U/L 84-246 [facility] Neutrophils (Bld) [#/Vol] 4.2 10*3/uL 2.0-7.7 [facility] Neutrophils/100 WBC (Bld) 67.0 % 47-70 [facility] Potassium [Moles/Vol] 4.1 mmol/L 3.5-5.1 [facility] Protein [Mass/Vol] 6.5 g/dL 6.4-8.2 [facility] Sodium [Moles/Vol] 142 mmol/L 136-145 [facility] WBC (Bld) [#/Vol] 6.3 10*3/uL 4.4-11.0 [facility] Blood erythrocytes count (nu mber/volume)Ordered By: Dr. Ford on 08-08-2022 RBC (Bld) [#/Vol] 3.96 10*6/uL 4.2-5.4 [facility] Blood hemoglobin measurement (mass/volume)Ordered By: Dr. Ford on 08-08-2022 Hemoglobin (Bld) [Mass/Vol] 12.8 g/dL 12.0-15.0 [facility] Blood lymphocytes/100 leukoc ytesOrdered By: Dr. Ford on 08-08-2022 Lymphocytes/100 WBC (Bld) 23.7 % 19-41 [facility] Blood monocytes/100 leukocyt esOrdered By: Dr. Ford on 08-08-2022 Monocytes/100 WBC (Bld) 8.7 % 0-10 [facility] Blood platelet mean volumeOr dered By: Dr. Ford on 08-08-2022 Platelet mean volume (Bld) [Entitic vol] 8.9 fL 6.2-12.0 [facility] Determination of erythrocyte mean corpuscular volume (MCV)Ordered By: Dr. Ford on 08-08-2022 MCV (RBC) [Entitic vol] 96.7 fL 81-99 [facility] Hematocrit Auto (Bld) [Volum e fraction]Ordered By: Dr. Ford on 08-08-2022 Hematocrit (Bld) [Volume fraction] 38.3 % 37-47 [facility] Laboratory - Chemistry and C hemistry - challengeOrdered By: Dr. Ford on 08-08-2022 ALP [Catalytic activity/Vol] 55 U/L 45-117 [facility] ALT [Catalytic activity/Vol] 33 U/L 13-56 [facility] CO2 [Moles/Vol] 27.0 mmol/L 21.0-32.0 [facility] Globulin (S) [Mass/Vol] 3.0 g/dL 2.2-4.2 [facility] Magnesium [Mass/Vol] 2.0 mg/dL 1.6-2.6 [facility] Urea nitrogen/Creatinine [Mass ratio] 19.5 mg/mg 10-20 [facility] Laboratory - Hematology and Cell countsOrdered By: Dr. Ford on 08-08-2022 Erythrocyte distribution width (RBC) [Entitic vol] 52.7 fL 35.1-43.9 [facility] Erythrocyte distribution width (RBC) [Ratio] 14.8 % 11.6-14.6 [facility] Immature granulocytes/100 WBC (Bld) 0.300 % 0.0-0.9 [facility] Comment on above: IG% - Immature Granu locytes (promyelocytes, myelocytes and metamyelocytes) > 1% indicates that a LEFT SHIFT is Present. MCH (RBC) [Entitic mass] 32.3 pg 27.0-32.0 [facility] Nucleated RBC/100 WBC (Bld) [Ratio] 0 % 0-5 [facility] MCHC Auto (RBC) [Mass/Vol]Or dered By: Dr. Ford on 08-08-2022 MCHC (RBC) [Mass/Vol] 33.4 g/dL 32-36 [facility] No Panel InformationOrdered By: Dr. Ford on 08-08-2022 CA 15-3 Antigen 141.0 U/mL 0.0-25.0 [facility] Comment on above: [employer] El ectrochemiluminescence Immunoassay(ECLIA)Values obtained with different assay methods or kits cannotbe used interchangeably. Results cannot be interpreted asabsolute evidence of the presence or absence of malignantdisease.Performed at: [facility] [id number] Director: Ervin Hitchcock PhD, Phone: [phone] [place] 27.29 187.2 U/mL 0.0-38.6 [facility] Comment on above: [employer] Nuvolaaur Immu nochemiluminometric Methodology (ICMA)Values obtained with different assay methods or kits cannotbe used interchangeably. Results cannot be interpreted asabsolute evidence of the presence or absence of malignantdisease. Estimated Creatinine Clearance Calc 67.66 ml/min [facility] Estimated GFR (MDRD) Amer 77 mL/min >60 [facility] Comment on above: GFR Calc Estimated GFR (MDRD) Non-Af Amer 63 mL/min >60 [facility] Comment on above: Non- GFR Calc Miscellaneous Test Comment MAILED SPECIMEN [facility] Platelets bldOrdered By: Dr. Ford on 08-08-2022 Platelets (Bld) [#/Vol] 189 10*3/uL 150-450 [facility] Serum or plasma albumin paul urement (mass/volume)Ordered By: Dr. Ford on 08-08-2022 Albumin [Mass/Vol] 3.5 g/dL 3.2-5.0 [facility] Serum or plasma albumin/glob ulin mass ratioOrdered By: Dr. Ford on 08-08-2022 Albumin/Globulin [Mass ratio] 1.2 {ratio} 0.9-2.4 [facility] Serum or plasma calcium paul urement (mass/volume)Ordered By: Dr. Ford on 08-08-2022 Calcium [Mass/Vol] 9.6 mg/dL 8.5-10.1 [facility] Serum or plasma carcinoembry onic antigen measurement (mass/volume)Ordered By: Dr. Ford on 08-08-2022 Carcinoembryonic Ag [Mass/Vol] 8.6 ng/mL 0.0-4.7 [facility] Comment on above: Nonsmokers <3.9 Smok ers <5.6[employer] Electrochemiluminescence Immunoassay(ECLIA)Values obtained with different assay methods or kitscannot be used interchangeably. Results cannot beinterpreted as absolute evidence of the presence orabsence of malignant disease. Serum or plasma creatinine m easurement (mass/volume)Ordered By: Dr. Ford on 08-08-2022 Creatinine [Mass/Vol] 0.97 mg/dL 0.55-1.02 [facility] Comment on above: The validity of the calculated GFR & GFRAA in patients over 70 years has not been determined. Clinical correlation is essential. Serum or plasma urea nitroge n measurement (mass/volume)Ordered By: Dr. Ford on 08-08-2022 Urea nitrogen [Mass/Vol] 19 mg/dL 7-18 [facility] Thin prep Papanicolaou smear with manual screeningOrdered By: Dr. Ford on 08-08-2022 Thin prep Papanicolaou smear with manual screening 24 U/L 15-37 [facility] Thin prep Papanicolaou smear with manual screening 6 5-15 [facility] Absolute lymphocyte countOrd ered By: Dr. Ford on 08-01-2022 Lymphocytes Auto (Unsp spec) [#/Vol] 1.72 10*3/uL 0.83-4.51 [facility] Basophil percentageOrdered B y: Dr. Ford on 08-01-2022 Basophils/100 WBC (Bld) 0.5 % 0-1 [facility] Bilirubin [Mass/Vol] 0.30 mg/dL 0.20-1.00 [facility] Comment on above: For patients on eltr ombopag therapy, use of Dim[place] TBIL is not recommended. Chloride [Moles/Vol] 107 mmol/L 98-107 [facility] Eosinophils/100 WBC (Bld) 0.0 % 0-5 [facility] Glucose [Mass/Vol] 117 mg/dL 74-106 [facility] Comment on above: Fasting Glucose resu lt from 100 to 125 mg/dL suggests IMPAIRED HOMEOSTASIS per A.D.A. criteria. Neutrophils (Bld) [#/Vol] 6.1 10*3/uL 2.0-7.7 [facility] Neutrophils/100 WBC (Bld) 71.1 % 47-70 [facility] Potassium [Moles/Vol] 4.1 mmol/L 3.5-5.1 [facility] Comment on above: Slight Hemolysis, Re sult may be falsely increased. Protein [Mass/Vol] 6.7 g/dL 6.4-8.2 [facility] Sodium [Moles/Vol] 140 mmol/L 136-145 [facility] WBC (Bld) [#/Vol] 8.6 10*3/uL 4.4-11.0 [facility] Blood erythrocytes count (nu mber/volume)Ordered By: Dr. Ford on 08-01-2022 RBC (Bld) [#/Vol] 4.10 10*6/uL 4.2-5.4 [facility] Blood hemoglobin measurement (mass/volume)Ordered By: Dr. Ford on 08-01-2022 Hemoglobin (Bld) [Mass/Vol] 12.8 g/dL 12.0-15.0 [facility] Blood lymphocytes/100 leukoc ytesOrdered By: Dr. Ford on 08-01-2022 Lymphocytes/100 WBC (Bld) 20.0 % 19-41 [facility] Blood monocytes/100 leukocyt esOrdered By: Dr. Ford on 08-01-2022 Monocytes/100 WBC (Bld) 8.1 % 0-10 [facility] Blood platelet mean volumeOr dered By: Dr. Ford on 08-01-2022 Platelet mean volume (Bld) [Entitic vol] 9.2 fL 6.2-12.0 [facility] Determination of erythrocyte mean corpuscular volume (MCV)Ordered By: Dr. Ford on 08-01-2022 MCV (RBC) [Entitic vol] 97.1 fL 81-99 [facility] Hematocrit Auto (Bld) [Volum e fraction]Ordered By: Dr. Ford on 08-01-2022 Hematocrit (Bld) [Volume fraction] 39.8 % 37-47 [facility] Laboratory - Chemistry and C hemistry - challengeOrdered By: Dr. Ford on 08-01-2022 ALP [Catalytic activity/Vol] 65 U/L 45-117 [facility] ALT [Catalytic activity/Vol] 38 U/L 13-56 [facility] CO2 [Moles/Vol] 28.0 mmol/L 21.0-32.0 [facility] Globulin (S) [Mass/Vol] 3.1 g/dL 2.2-4.2 [facility] Urea nitrogen/Creatinine [Mass ratio] 26.4 mg/mg 10-20 [facility] Laboratory - Hematology and Cell countsOrdered By: Dr. Ford on 08-01-2022 Erythrocyte distribution width (RBC) [Entitic vol] 50.2 fL 35.1-43.9 [facility] Erythrocyte distribution width (RBC) [Ratio] 14.5 % 11.6-14.6 [facility] Immature granulocytes/100 WBC (Bld) 0.300 % 0.0-0.9 [facility] Comment on above: IG% - Immature Granu locytes (promyelocytes, myelocytes and metamyelocytes) > 1% indicates that a LEFT SHIFT is Present. MCH (RBC) [Entitic mass] 31.2 pg 27.0-32.0 [facility] Nucleated RBC/100 WBC (Bld) [Ratio] 0 % 0-5 [facility] MCHC Auto (RBC) [Mass/Vol]Or dered By: Dr. Ford on 08-01-2022 MCHC (RBC) [Mass/Vol] 32.2 g/dL 32-36 [facility] No Panel InformationOrdered By: Dr. Ford on 08-01-2022 Estimated Creatinine Clearance Calc 79.07 ml/min [facility] Estimated GFR (MDRD) Amer 92 mL/min >60 [facility] Comment on above: GFR Calc Estimated GFR (MDRD) Non-Af Amer 76 mL/min >60 [facility] Comment on above: Non- GFR Calc Platelets bldOrdered By: Dr. Ford on 08-01-2022 Platelets (Bld) [#/Vol] 147 10*3/uL 150-450 [facility] Serum or plasma albumin paul urement (mass/volume)Ordered By: Dr. Ford on 08-01-2022 Albumin [Mass/Vol] 3.6 g/dL 3.2-5.0 [facility] Serum or plasma albumin/glob ulin mass ratioOrdered By: Dr. Ford on 08-01-2022 Albumin/Globulin [Mass ratio] 1.2 {ratio} 0.9-2.4 [facility] Serum or plasma calcium paul urement (mass/volume)Ordered By: Dr. Ford on 08-01-2022 Calcium [Mass/Vol] 10.1 mg/dL 8.5-10.1 [facility] Serum or plasma creatinine m easurement (mass/volume)Ordered By: Dr. Ford on 08-01-2022 Creatinine [Mass/Vol] 0.83 mg/dL 0.55-1.02 [facility] Comment on above: The validity of the calculated GFR & GFRAA in patients over 70 years has not been determined. Clinical correlation is essential. Serum or plasma urea nitroge n measurement (mass/volume)Ordered By: Dr. Ford on 08-01-2022 Urea nitrogen [Mass/Vol] 22 mg/dL 7-18 [facility] Thin prep Papanicolaou smear with manual screeningOrdered By: Dr. Ford on 08-01-2022 Thin prep Papanicolaou smear with manual screening 25 U/L 15-37 [facility] Comment on above: Slight Hemolysis, Re sult may be falsely increased. Thin prep Papanicolaou smear with manual screening 5 5-15 [facility] Basophil percentageOrdered B y: Dr. Ford on 07-18-2022 LDH [Catalytic activity/Vol] 240 U/L 84-246 [facility] Laboratory - Chemistry and C hemistry - challengeOrdered By: Dr. Ford on 07-18-2022 Magnesium [Mass/Vol] 2.0 mg/dL 1.6-2.6 [facility] Comment on above: Slight Hemolysis, Re sult may be falsely increased. Absolute lymphocyte countOrd ered By: Dr. Ford on 06-27-2022 Lymphocytes Auto (Unsp spec) [#/Vol] 1.58 10*3/uL 0.83-4.51 [facility] Basophil percentageOrdered B y: Dr. Ford on 06-27-2022 Basophils/100 WBC (Bld) 0.2 % 0-1 [facility] Bilirubin [Mass/Vol] 0.40 mg/dL 0.20-1.00 [facility] Comment on above: For patients on eltr ombopag therapy, use of Dimension [place] TBIL is not recommended. Chloride [Moles/Vol] 106 mmol/L 98-107 [facility] Eosinophils/100 WBC (Bld) 0.8 % 0-5 [facility] Glucose [Mass/Vol] 154 mg/dL 74-106 [facility] Comment on above: Fasting Glucose resu lt greater than or equal to 126 mg/dL suggests DIABETES MELLITUS per A.D.A. criteria. Neutrophils (Bld) [#/Vol] 7.1 10*3/uL 2.0-7.7 [facility] Neutrophils/100 WBC (Bld) 76.4 % 47-70 [facility] Potassium [Moles/Vol] 3.8 mmol/L 3.5-5.1 [facility] Protein [Mass/Vol] 7.3 g/dL 6.4-8.2 [facility] Sodium [Moles/Vol] 139 mmol/L 136-145 [facility] WBC (Bld) [#/Vol] 9.3 10*3/uL 4.4-11.0 [facility] Blood erythrocytes count (nu mber/volume)Ordered By: Dr. Ford on 06-27-2022 RBC (Bld) [#/Vol] 4.53 10*6/uL 4.2-5.4 [facility] Blood hemoglobin measurement (mass/volume)Ordered By: Dr. Ford on 06-27-2022 Hemoglobin (Bld) [Mass/Vol] 14.3 g/dL 12.0-15.0 [facility] Blood lymphocytes/100 leukoc ytesOrdered By: Dr. Ford on 06-27-2022 Lymphocytes/100 WBC (Bld) 17.1 % 19-41 [facility] Blood monocytes/100 leukocyt esOrdered By: Dr. Ford on 06-27-2022 Monocytes/100 WBC (Bld) 5.1 % 0-10 [facility] Blood platelet mean volumeOr dered By: Dr. Ford on 06-27-2022 Platelet mean volume (Bld) [Entitic vol] 9.6 fL 6.2-12.0 [facility] Determination of erythrocyte mean corpuscular volume (MCV)Ordered By: Dr. Ford on 06-27-2022 MCV (RBC) [Entitic vol] 96.5 fL 81-99 [facility] Hematocrit Auto (Bld) [Volum e fraction]Ordered By: Dr. Ford on 06-27-2022 Hematocrit (Bld) [Volume fraction] 43.7 % 37-47 [facility] Laboratory - Chemistry and C hemistry - challengeOrdered By: Dr. Ford on 06-27-2022 ALP [Catalytic activity/Vol] 81 U/L 45-117 [facility] ALT [Catalytic activity/Vol] 31 U/L 13-56 [facility] CO2 [Moles/Vol] 28.0 mmol/L 21.0-32.0 [facility] Globulin (S) [Mass/Vol] 3.5 g/dL 2.2-4.2 [facility] Magnesium [Mass/Vol] 2.0 mg/dL 1.6-2.6 [facility] Urea nitrogen/Creatinine [Mass ratio] 17.9 mg/mg 10-20 [facility] Laboratory - Hematology and Cell countsOrdered By: Dr. Ford on 06-27-2022 Erythrocyte distribution width (RBC) [Entitic vol] 46.7 fL 35.1-43.9 [facility] Erythrocyte distribution width (RBC) [Ratio] 13.2 % 11.6-14.6 [facility] Immature granulocytes/100 WBC (Bld) 0.400 % 0.0-0.9 [facility] Comment on above: IG% - Immature Granu locytes (promyelocytes, myelocytes and metamyelocytes) > 1% indicates that a LEFT SHIFT is Present. MCH (RBC) [Entitic mass] 31.6 pg 27.0-32.0 [facility] Nucleated RBC/100 WBC (Bld) [Ratio] 0 % 0-5 [facility] MCHC Auto (RBC) [Mass/Vol]Or dered By: Dr. Ford on 06-27-2022 MCHC (RBC) [Mass/Vol] 32.7 g/dL 32-36 [facility] No Panel InformationOrdered By: Genna Zuniga on 06-27-2022 CA 15-3 Antigen 352.0 U/mL 0.0-25.0 [facility] Comment on above: Results confirmed on dilution.[employer] Electrochemiluminescence Immunoassay(ECLIA)Values obtained with different assay methods or kits cannotbe used interchangeably. Results cannot be interpreted asabsolute evidence of the presence or absence of malignantdisease.Performed at: [facility] [id number] Director: Ervin Hitchcock PhD, Phone: [phone] CA 27.29 372.0 U/mL 0.0-38.6 [facility] Comment on above: [employer]ens Nuvolaaur Immu nochemiluminometric Methodology (ICMA)Values obtained with different assay methods or kits cannotbe used interchangeably. Results cannot be interpreted asabsolute evidence of the presence or absence of malignantdisease. No Panel InformationOrdered By: Dr. Ford on 06-27-2022 Estimated GFR (MDRD) Amer 85 mL/min >60 [facility] Comment on above: GFR Calc Estimated GFR (MDRD) Non-Af Amer 70 mL/min >60 [facility] Comment on above: Non- GFR Calc Miscellaneous Test Comment MAILED SPECIMEN [facility] Platelets bldOrdered By: Dr. Ford on 06-27-2022 Platelets (Bld) [#/Vol] 249 10*3/uL 150-450 [facility] Serum or plasma albumin paul urement (mass/volume)Ordered By: Dr. Ford on 06-27-2022 Albumin [Mass/Vol] 3.8 g/dL 3.2-5.0 [facility] Serum or plasma albumin/glob ulin mass ratioOrdered By: Dr. Ford on 06-27-2022 Albumin/Globulin [Mass ratio] 1.1 {ratio} 0.9-2.4 [facility] Serum or plasma calcium paul urement (mass/volume)Ordered By: Dr. Ford on 06-27-2022 Calcium [Mass/Vol] 10.5 mg/dL 8.5-10.1 [facility] Serum or plasma carcinoembry onic antigen measurement (mass/volume)Ordered By: Genna Zuniga on 06-27-2022 Carcinoembryonic Ag [Mass/Vol] 76.6 ng/mL 0.0-4.7 [facility] Comment on above: Nonsmokers <3.9 Smok ers <5.6[employer] Electrochemiluminescence Immunoassay(ECLIA)Values obtained with different assay methods or kitscannot be used interchangeably. Results cannot beinterpreted as absolute evidence of the presence orabsence of malignant disease. Serum or plasma creatinine m easurement (mass/volume)Ordered By: Dr. Ford on 06-27-2022 Creatinine [Mass/Vol] 0.89 mg/dL 0.55-1.02 [facility] Comment on above: The validity of the calculated GFR & GFRAA in patients over 70 years has not been determined. Clinical correlation is essential. Serum or plasma urea nitroge n measurement (mass/volume)Ordered By: Dr. Ford on 06-27-2022 Urea nitrogen [Mass/Vol] 16 mg/dL 7-18 [facility] Thin prep Papanicolaou smear with manual screeningOrdered By: Dr. Ford on 06-27-2022 Thin prep Papanicolaou smear with manual screening 19 U/L 15-37 [facility] Thin prep Papanicolaou smear with manual screening 5 5-15 [facility] Laboratory - Chemistry and C hemistry - challengeOrdered By: Dr. Parr on 06-17-2022 HCG ( test) Ql (U) Negative [facility] Comment on above: Very dilute urine sp ecimens, as indicated by a low specificgravity, may not contain sales representative education courses levels of hCG. If is still suspected, a first morning urinespecimen should be collected 48 hours later and tested. Absolute lymphocyte counton 06-13-2022 Lymphocytes Auto (Unsp spec) [#/Vol] 2.44 10*3/uL 0.83-4.51 [facility] Work Phone: Basophil percentageon 2022 Basophils/100 WBC (Bld) 0.4 % 0-1 [facility] Work Phone: Bilirubin [Mass/Vol] 0.50 mg/dL 0.20-1.00 [facility] Work Phone: Comment on above: For patients on eltr ombopag therapy, use of Dimension [place] TBIL is not recommended. Chloride [Moles/Vol] 108 mmol/L 98-107 [facility] Work Phone: Eosinophils/100 WBC (Bld) 0.8 % 0-5 [facility] Work Phone: Glucose [Mass/Vol] 100 mg/dL 74-106 [facility] Work Phone: Comment on above: Fasting Glucose resu lt from 100 to 125 mg/dL suggests IMPAIRED HOMEOSTASIS per A.D.A. criteria. Neutrophils (Bld) [#/Vol] 7.2 10*3/uL 2.0-7.7 [facility] Work Phone: Neutrophils/100 WBC (Bld) 67.8 % 47-70 [facility] Work Phone: Potassium [Moles/Vol] 3.7 mmol/L 3.5-5.1 [facility] Work Phone: Protein [Mass/Vol] 8.1 g/dL 6.4-8.2 [facility] Work Phone: Sodium [Moles/Vol] 139 mmol/L 136-145 [facility] Work Phone: WBC (Bld) [#/Vol] 10.6 10*3/uL 4.4-11.0 [facility] Work Phone: Basophil percentageOrdered B y: Dr. Ford on 06-13-2022 LDH [Catalytic activity/Vol] 191 U/L 84-246 [facility] Blood erythrocytes count (nu mber/volume)on 06-13-2022 RBC (Bld) [#/Vol] 4.86 10*6/uL 4.2-5.4 [facility] Work Phone: Blood hemoglobin measurement (mass/volume)on 06-13-2022 Hemoglobin (Bld) [Mass/Vol] 15.0 g/dL 12.0-15.0 [facility] Work Phone: Blood lymphocytes/100 leukoc yteson 06-13-2022 Lymphocytes/100 WBC (Bld) 23.0 % 19-41 [facility] Work Phone: Blood monocytes/100 leukocyt eson 06-13-2022 Monocytes/100 WBC (Bld) 7.4 % 0-10 [facility] Work Phone: Blood platelet mean volumeon 06-13-2022 Platelet mean volume (Bld) [Entitic vol] 9.5 fL 6.2-12.0 [facility] Work Phone: Determination of erythrocyte mean corpuscular volume (MCV)on 06-13-2022 MCV (RBC) [Entitic vol] 94.7 fL 81-99 [facility] Work Phone: Hematocrit Auto (Bld) [Volum e fraction]on 06-13-2022 Hematocrit (Bld) [Volume fraction] 46.0 % 37-47 [facility] Work Phone: Laboratory - Chemistry and C hemistry - challengeon 06-13-2022 ALP [Catalytic activity/Vol] 91 U/L 45-117 [facility] Work Phone: ALT [Catalytic activity/Vol] 36 U/L 13-56 [facility] Work Phone: CO2 [Moles/Vol] 28.0 mmol/L 21.0-32.0 [facility] Work Phone: Globulin (S) [Mass/Vol] 3.7 g/dL 2.2-4.2 [facility] Work Phone: Urea nitrogen/Creatinine [Mass ratio] 24.3 mg/mg 10-20 [facility] Work Phone: Laboratory - Hematology and Cell countson 06-13-2022 Erythrocyte distribution width (RBC) [Entitic vol] 44.5 fL 35.1-43.9 [facility] Work Phone: Erythrocyte distribution width (RBC) [Ratio] 12.9 % 11.6-14.6 [facility] Work Phone: Immature granulocytes/100 WBC (Bld) 0.600 % 0.0-0.9 [facility] Work Phone: Comment on above: IG% - Immature Granu locytes (promyelocytes, myelocytes and metamyelocytes) > 1% indicates that a LEFT SHIFT is Present. MCH (RBC) [Entitic mass] 30.9 pg 27.0-32.0 [facility] Work Phone: Nucleated RBC/100 WBC (Bld) [Ratio] 0 % 0-5 [facility] Work Phone: MCHC Auto (RBC) [Mass/Vol]on 06-13-2022 MCHC (RBC) [Mass/Vol] 32.6 g/dL 32-36 [facility] Work Phone: No Panel Informationon 06-13 Estimated GFR (MDRD) Amer 93 mL/min >60 [facility] Work Phone: Comment on above: GFR Calc Estimated GFR (MDRD) Non-Af Amer 77 mL/min >60 [facility] Work Phone: Comment on above: Non- GFR Calc Platelets bldon 06-13-2022 Platelets (Bld) [#/Vol] 317 10*3/uL 150-450 [facility] Work Phone: Serum or plasma albumin paul urement (mass/volume)on 06-13-2022 Albumin [Mass/Vol] 4.4 g/dL 3.2-5.0 [facility] Work Phone: Serum or plasma albumin/glob ulin mass ratioon 06-13-2022 Albumin/Globulin [Mass ratio] 1.2 {ratio} 0.9-2.4 [facility] Work Phone: Serum or plasma calcium paul urement (mass/volume)on 06-13-2022 Calcium [Mass/Vol] 10.6 mg/dL 8.5-10.1 [facility] Work Phone: Serum or plasma creatinine m easurement (mass/volume)on 06-13-2022 Creatinine [Mass/Vol] 0.82 mg/dL 0.55-1.02 [facility] Work Phone: Comment on above: The validity of the calculated GFR & GFRAA in patients over 70 years has not been determined. Clinical correlation is essential. Serum or plasma urea nitroge n measurement (mass/volume)on 06-13-2022 Urea nitrogen [Mass/Vol] 20 mg/dL 7-18 [facility] Work Phone: Thin prep Papanicolaou smear with manual screeningon 06-13-2022 Thin prep Papanicolaou smear with manual screening 19 U/L 15-37 [facility] Work Phone: Thin prep Papanicolaou smear with manual screening 3 5-15 [facility] Work Phone: LABORATORYOrdered By: Tal Root on 06-07-2022 Adenovirus DNA ERMIAS+non-probe Ql (Nph) Not Detected *NA* (06/07/22 10:36 AM) Invalid Interpretation Code Not Detected AH Auto Viro/Sero SS B. parapertussis [id number] DNA ERMIAS+non-probe Ql (Nph) Not Detected *NA* [...] notified. Results have been reported to the [facility]. [place] 06-07-2022 Adenovirus Not detected Normal Not Detected [facility] ([place]) Comment on above: Performed By: #### R ESCVID #### [address] [address] Bordetella Parapertussis Not detected Normal Not Detected [facility] ([place]) Comment on above: Performed By: #### R ESCVID #### [facility] [address] [place] [address] Bordetella Pertussis Not detected Normal Not Detected [facility] ([place]) Comment on above: Performed By: #### R ESCVID #### [facility] [address] [place], [place] [id number] Chlamydophila pneumoniae Not detected Normal Not Detected [facility] ([place]) Comment on above: Performed By: #### R ESCVID #### [place] [address] Coronavirus 229E (Not COVID-19) Not detected Normal Not Detected [facility] ([place] Comment on above: Performed By: #### R ESCVID #### [place] [address] Coronavirus HKU1 (Not COVID-19) Not detected Normal Not Detected [facility] ([place] Comment on above: Performed By: #### R ESCVID #### [place] [address] Coronavirus NL63 (Not COVID-19) Not detected Normal Not Detected [facility] ([place] Comment on above: Performed By: #### R ESCVID #### [place] [address] Coronavirus OC43 (Not COVID-19) Not detected Normal Not Detected [facility] ([place] Comment on above: Performed By: #### R ESCVID #### [place] [address] Human Metapneumovirus Not detected Normal Not Detected [facility] ([place] Comment on above: Performed By: #### R ESCVID #### [facility] [address] [place], [place] [id number] Influenza A Not detected Normal Not Detected [facility] ([place] Comment on above: Performed By: #### R ESCVID #### [facility] [address] [place], [place] [id number] Influenza B Not detected Normal Not Detected [facility] ([place] Comment on above: Performed By: #### R ESCVID #### [address] [address] Mycoplasma pneumoniae Not detected Normal Not Detected [facility] ([place] Comment on above: Performed By: #### R ESCVID #### [place] [id number] Parainfluenza 1 Not detected Normal Not Detected [facility] ([place] Comment on above: Performed By: #### R ESCVID #### [place] [id number] Parainfluenza 2 Not detected Normal Not Detected [facility] ([place] Comment on above: Performed By: #### R ESCVID #### [place] [id number] Parainfluenza 3 Detected Abnormal Not Detected [facility] ([place] Comment on above: Performed By: #### R ESCVID #### [place] [address] Parainfluenza 4 Not detected Normal Not Detected [facility] ([place] Comment on above: Performed By: #### R ESCVID #### [place] [address] Respiratory Syncytial Virus Not detected Normal Not Detected [facility] ([place] Comment on above: Performed By: #### R ESCVID #### [place] [address] Rhinovirus/Enterovirus Not detected Normal Not Detected [facility] ([place] Comment on above: Performed By: #### R ESCVID #### [place] [id number] SARS-CoV-2 (COVID-19) RNA ERMIAS+probe Ql (Unsp spec) Detected Abnormal Not Detected [facility] ([place]) Comment on above: Result Comment: This organism causes a reportable disease. Infection Control has been notified. Results have been reported to the [place] Department of Health. This test is being used under the FDA EUA procedure. This assay has been validated in the [facility] for use with nasopharyngeal specimens in [facility] If a non-validated specimen or test collection [...] public health authorities. Performed By: #### R [facility] #### [place] [address] PATHOLOGY REPORTS (OUTSIDE)o n 06-06-2022 [facility] Anaerobic cultureOrdered By: Dr. Wolfe on 05-29-2022 Bacteria identified Anaer cx Nom (Unsp spec) No growth in 5 days. [facility] Routine wound cultureOrdered By: Dr. Wolfe on 05-26-2022 Bacteria identified Cx Nom (Wound) No growth aerobically. [facility] Gram stain for investigation of transfusion reactionOrdered By: Dr. Wolfe on 05-25-2022 Microscopic observation Gram stain Nom (Unsp spec) [facility] No Panel InformationOrdered By: Dr. Ng on 05-23-2022 Troponin I High Sensitivity 6 pg/mL 3.0-54.0 [facility] Comment on above: Please Note: [place] t Units and Gender Specific Reference Ranges. For more information see Policy Stat Procedure [place] High Sensitivity Troponin (TNIH) and attachments. LABORATORYOrdered [...] 04-09-2017 CNOV Office Visit (UCWSTR) LISSETT STARK ([id number]) 1970 [facility] Time Provider Rdjdrwofrl18/1/17 10:15 AM CAROLINA MCGREGOR ([place]) [facility] During your visit today, we recorded the following information about you: Temperature Pulse Respiration Blood pressure 97.9 degrees 68/minute 16/minute 122/78 Weight 98.4 kgCarolina Mcgregor CNP 04/09/2017 2:30 PM AddendumPatient is a 47 year old female presenting with knee pain and muscle weakness.Knee PainPertinent negatives include no fever or tingling.Musculoskeletal ProblemPertinent negatives include no chills, fever, headaches, myalgias or rash.MONIQUE Stark is a 47 year old female [...] 04/09/2017(No Known Allergies)Date Reviewed: 04/09/2017Reviewed by: Carolina (Room Designer) Balbir - Fully AssessedReason for Visit: Knee Pain [132] Cmt: x 3 days right knee pain Musculoskeletal Problem [69] Cmt: x 2 weeks top of right foot painful and swelling noted at timesPrimary Visit Diagnosis:Acute pain of right knee [M25.561]Order(s):XR KNEE LIMITED 2V AP/LAT RT [[id number]] Order #: [id number]. #:[id number] methylPREDNISolone (MEDROL, ARNIE,) 4 mg Dose-PackFollow dosing [...] take with food.Letter Kvng Mcgregor CNP Urgent [id number] [facility] [address]Loyx: [phone]/1/2017Regina Youd577 [facility] [address]Gf Whom it May Concern:This is to certify that Lissett Stark was seen at our office for medicalcare. Lissett may return to school on 04.11.2017.If you have any questions please feel free to call.Sincerely:Carolina Mcgregor CNPEncounter Number: [id number] Status:Closed by CAROLINA MCGREGOR CNP on 04/09/17 Normal [facility] PROGRESSon 04-09-2017 PROGRESS HNO ID: [id number] thor: Geovanna George (Rt): (none)Author Type: TechnicianType: Progress NotesFiled: 04/09/2017 10:54 AMNote Text: Radiology Service Progress NotePATIENT NAME: Lissett YoudMRN: [id number] OF SERVICE: April 09, 2017TIME: 10:44 AMPATIENT IDENTITY VERIFICATION COMPLETED USING TWO (2) METHODS: Patientconfirmed name verbally and Date of .PATIENT GENDER DATA: Female. status: : NoBreastfeeding status: NO.PATIENT RELEVANT IMPLANT DATA REVIEWED: Not ApplicableRADIOLOGY DEPARTMENT: General X-ray: Exam(s) Completed: Lower ExtremityX-Ray(s): Knee, AP / LAT Right:PERIPHERAL IV DATA: Not applicableSIGNED BY: RT ArielApril 09, 2017 10:44 AM Normal [facility] PROGRESS HNO ID: [id number] thor: Carolina (Room Designer) FulkService: (none)Author Type: Nurse PractitionerType: Progress NotesFiled: [...] discussed in detail warranting prompt ER evaluation.Carolina Mcgregor CNP Normal [facility] XR KNEE 2V AP/LAT RTon 04-09 XR [...] Mild right knee osteoarthritis and minimal joint effusion.Baker Apprentice: PSCB Transcribe Date/Time: Apr 09 2017 10:59ADictated by : Gael CAMP MDThis examination was interpreted and the report reviewed and electronically signed by: Gael CAMP MD on Apr 09 2017 11:02AM [id number] Normal [facility] Anaerobic culture Bacteria identified Anaer cx Nom (Unsp spec) No growth in 5 days. [facility] Work Phone: Gram stain for investigation of transfusion reaction Microscopic observation Gram stain Nom (Unsp spec) [facility] Work Phone: Routine wound culture Bacteria identified Cx Nom (Wound) No growth aerobically. [facility] Work Phone: Vital Signs Date Time Vital Sign Value Performing Clinician Facility 03-10-2025 11:08-0400 Body height 172.72 cm [employer] Work Phone: [facility] 03-10-2025 11:08-0400 Body mass index (BMI) [Ratio] 34.2 kg/m2 [employer] [facility] Work Phone: [facility] 03-10-2025 11:08-0400 Body temperature 98.1 [degF] [employer] [facility] Work Phone: [facility] 03-10-2025 11:08-0400 Body weight 102.25 kg [employer] [facility] Work Phone: [facility] 03-10-2025 11:08-0400 Diastolic blood pressure 79 mm[Hg] [employer] [facility] Work Phone: [facility] 03-10-2025 11:08-0400 Heart rate 78 /min [employer] [facility] Work Phone: [facility] 03-10-2025 11:08-0400 Respiratory rate 18 /min [employer] [facility] Work Phone: [facility] 03-10-2025 11:08-0400 SaO2% (BldA) [Mass fraction] 96 % [employer] [facility] Work Phone: [facility] 03-10-2025 11:08-0400 Systolic blood pressure 118 mm[Hg] [employer] [facility] Work Phone: [facility] 02-17-2025 14:42-0400 Body temperature 98 [degF] [employer] [facility] Work Phone: [facility] 02-17-2025 14:42-0400 Diastolic blood pressure 68 mm[Hg] [employer] [facility] Work Phone: [facility] 02-17-2025 14:42-0400 Heart rate 80 /min [employer] [facility] Work Phone: [facility] 02-17-2025 14:42-0400 Respiratory rate 16 /min [employer] [facility] Work Phone: [facility] 02-17-2025 14:42-0400 SaO2% (BldA) [Mass fraction] 95 % [employer] Work Phone: [facility] 02-17-2025 14:42-0400 Systolic blood pressure 134 mm[Hg] [employer] Work Phone: [facility] 02-17-2025 11:37-0400 Body height 172.72 cm [employer] Work Phone: [facility] 02-17-2025 11:37-0400 Body mass index (BMI) [Ratio] 34.7 kg/m2 [employer] Work Phone: [facility] 02-17-2025 11:37-0400 Body temperature 98.5 [degF] [employer] Work Phone: [facility] 02-17-2025 11:37-0400 Body weight 103.41 kg [employer] Work Phone: [facility] 02-17-2025 11:37-0400 Diastolic blood pressure 79 mm[Hg] [employer] Work Phone: [facility] 02-17-2025 11:37-0400 Heart rate 77 /min [employer] Work Phone: [facility] 02-17-2025 11:37-0400 Respiratory rate 18 /min [employer] Work Phone: [facility] 02-17-2025 11:37-0400 SaO2% (BldA) [Mass fraction] 95 % [employer] Work Phone: [facility] 02-17-2025 11:37-0400 Systolic blood pressure 127 mm[Hg] [employer] Work Phone: [facility] 02-02-2025 11:45-0400 Body height 172.72 cm [employer] Work Phone: [facility] 02-02-2025 11:45-0400 Body mass index (BMI) [Ratio] 34.4 kg/m2 [employer] Work Phone: [facility] 02-02-2025 11:45-0400 Body temperature 98.2 [degF] [employer] Work Phone: [facility] 02-02-2025 11:45-0400 Body weight 102.96 kg [employer] Work Phone: [facility] 02-02-2025 11:45-0400 Diastolic blood pressure 82 mm[Hg] [employer] Work Phone: [facility] 02-02-2025 11:45-0400 Heart rate 75 /min [employer] Work Phone: [facility] 02-02-2025 11:45-0400 Respiratory rate 14 /min [employer] Work Phone: [facility] 02-02-2025 11:45-0400 SaO2% (BldA) [Mass fraction] 98 % [employer] Work Phone: [facility] 02-02-2025 11:45-0400 Systolic blood pressure 122 mm[Hg] [employer] Work Phone: [facility] 01-27-2025 11:57-0400 Body temperature 96.8 [degF] [employer] Work Phone: [facility] 01-27-2025 11:57-0400 Diastolic blood pressure 64 mm[Hg] [employer] Work Phone: [facility] 01-27-2025 11:57-0400 Heart rate 71 /min [employer] Work Phone: [facility] 01-27-2025 11:57-0400 Respiratory rate 16 /min [employer] Work Phone: [facility] 01-27-2025 11:57-0400 Systolic blood pressure 137 mm[Hg] [employer] Work Phone: [facility] 01-27-2025 10:51-0400 SaO2% (BldA) [Mass fraction] 98 % [employer] Work Phone: [facility] 01-27-2025 08:16-0400 Body height 172.72 cm [employer] Work Phone: [facility] 01-27-2025 08:16-0400 Body mass index (BMI) [Ratio] 34.7 kg/m2 [employer] Work Phone: [facility] 01-27-2025 08:16-0400 Body temperature 98.2 [degF] [employer] Work Phone: [facility] 01-27-2025 08:16-0400 Body weight 103.58 kg [employer] Work Phone: [facility] 01-27-2025 08:16-0400 Diastolic blood pressure 81 mm[Hg] [employer] Work Phone: [facility] 01-27-2025 08:16-0400 Heart rate 78 /min [employer] Work Phone: [facility] 01-27-2025 08:16-0400 Respiratory rate 18 /min [employer] Work Phone: [facility] 01-27-2025 08:16-0400 SaO2% (BldA) [Mass fraction] 94 % [employer] Work Phone: [facility] 01-27-2025 08:16-0400 Systolic blood pressure 124 mm[Hg] [employer] Work Phone: [facility] 01-06-2025 14:51-0400 Body temperature 96.9 [degF] [employer] Work Phone: [facility] 01-06-2025 14:51-0400 Diastolic blood pressure 63 mm[Hg] [employer] Work Phone: [facility] 01-06-2025 14:51-0400 Heart rate 71 /min [employer] Work Phone: [facility] 01-06-2025 14:51-0400 Respiratory rate 16 /min [employer] Work Phone: [facility] 01-06-2025 14:51-0400 SaO2% (BldA) [Mass fraction] 97 % [employer] Work Phone: [facility] 01-06-2025 14:51-0400 Systolic blood pressure 142 mm[Hg] [employer] Work Phone: [facility] 01-06-2025 11:37-0400 Body height 172.72 cm [employer] Work Phone: [facility] 01-06-2025 11:37-0400 Body mass index (BMI) [Ratio] 35.3 kg/m2 [employer] Work Phone: [facility] 01-06-2025 11:37-0400 Body temperature 98.6 [degF] [employer] Work Phone: [facility] 01-06-2025 11:37-0400 Body weight 105.46 kg [employer] Work Phone: [facility] 01-06-2025 11:37-0400 Diastolic blood pressure 75 mm[Hg] [employer] Work Phone: [facility] 01-06-2025 11:37-0400 Heart rate 77 /min [employer] Work Phone: [facility] 01-06-2025 11:37-0400 Respiratory rate 18 /min [employer] Work Phone: [facility] 01-06-2025 11:37-0400 SaO2% (BldA) [Mass fraction] 96 % [employer] Work Phone: [facility] 01-06-2025 11:37-0400 Systolic blood pressure 150 mm[Hg] [employer] Work Phone: [facility] 12-29-2024 07:38-0400 Body height 172.72 cm [employer] Work Phone: [facility] 12-29-2024 07:38-0400 Body mass index (BMI) [Ratio] 35.8 kg/m2 [employer] Work Phone: [facility] 12-29-2024 07:38-0400 Body temperature 96.9 [degF] [employer] Work Phone: [facility] 12-29-2024 07:38-0400 Body weight 106.76 kg [employer] Work Phone: [facility] 12-29-2024 07:38-0400 Diastolic blood pressure 72 mm[Hg] [employer] Work Phone: [facility] 12-29-2024 07:38-0400 Heart rate 83 /min [employer] Work Phone: [facility] 12-29-2024 07:38-0400 Respiratory rate 16 /min [employer] Work Phone: [facility] 12-29-2024 07:38-0400 SaO2% (BldA) [Mass fraction] 97 % [employer] Work Phone: [facility] 12-29-2024 07:38-0400 Systolic blood pressure 138 mm[Hg] [employer] Work Phone: [facility] 12-16-2024 14:13-0400 Body temperature 97.5 [degF] [employer] Work Phone: [facility] 12-16-2024 14:13-0400 Diastolic blood pressure 55 mm[Hg] [employer] Work Phone: [facility] 12-16-2024 14:13-0400 Heart rate 83 /min [employer] Work Phone: [facility] 12-16-2024 14:13-0400 Respiratory rate 16 /min [employer] Work Phone: [facility] 12-16-2024 14:13-0400 Systolic blood pressure 129 mm[Hg] [employer] Work Phone: [facility] 12-16-2024 11:18-0400 Body height 172.72 cm [employer] Work Phone: [facility] 12-16-2024 11:18-0400 Body mass index (BMI) [Ratio] 34.9 kg/m2 [employer] Work Phone: [facility] 12-16-2024 11:18-0400 Body weight 104.41 kg [employer] Work Phone: [facility] 12-16-2024 11:18-0400 Diastolic blood pressure 83 mm[Hg] [employer] Work Phone: [facility] 12-16-2024 11:18-0400 Heart rate 79 /min [employer] Work Phone: [facility] 12-16-2024 11:18-0400 Respiratory rate 16 /min [employer] Work Phone: [facility] 12-16-2024 11:18-0400 SaO2% (BldA) [Mass fraction] 97 % [employer] Work Phone: [facility] 12-16-2024 11:18-0400 Systolic blood pressure 133 mm[Hg] [employer] Work Phone: [facility] 11-25-2024 14:33-0400 Body temperature 96.7 [degF] [employer] Work Phone: [facility] 11-25-2024 14:33-0400 Diastolic blood pressure 58 mm[Hg] [employer] Work Phone: [facility] 11-25-2024 14:33-0400 Heart rate 79 /min [employer] Work Phone: [facility] 11-25-2024 14:33-0400 Respiratory rate 16 /min [employer] Work Phone: [facility] 11-25-2024 14:33-0400 Systolic blood pressure 134 mm[Hg] [employer] Work Phone: [facility] 11-25-2024 11:32-0400 Body height 172.72 cm [employer] Work Phone: [facility] 11-25-2024 11:32-0400 Body mass index (BMI) [Ratio] 34.5 kg/m2 [employer] Work Phone: [facility] 11-25-2024 11:32-0400 Body temperature 98.7 [degF] [employer] Work Phone: [facility] 11-25-2024 11:32-0400 Body weight 103.19 kg [employer] Work Phone: [facility] 11-25-2024 11:32-0400 Diastolic blood pressure 72 mm[Hg] [employer] Work Phone: [facility] 11-25-2024 11:32-0400 Heart rate 79 /min [employer] Work Phone: [facility] 11-25-2024 11:32-0400 Respiratory rate 18 /min [employer] Work Phone: [facility] 11-25-2024 11:32-0400 SaO2% (BldA) [Mass fraction] 96 % [employer] Work Phone: [facility] 11-25-2024 11:32-0400 Systolic blood pressure 130 mm[Hg] [employer] Work Phone: [facility] 11-04-2024 15:04-0400 Diastolic blood pressure 58 mm[Hg] [employer] Work Phone: [facility] 11-04-2024 15:04-0400 Heart rate 73 /min [employer] Work Phone: [facility] 11-04-2024 15:04-0400 Respiratory rate 16 /min [employer] Work Phone: [facility] 11-04-2024 15:04-0400 Systolic blood pressure 128 mm[Hg] [employer] Work Phone: [facility] 11-04-2024 11:38-0400 Body height 172.72 cm [employer] Work Phone: [facility] 11-04-2024 11:38-0400 Body mass index (BMI) [Ratio] 34.5 kg/m2 [employer] Work Phone: [facility] 11-04-2024 11:38-0400 Body temperature 97.7 [degF] [employer] Work Phone: [facility] 11-04-2024 11:38-0400 Body weight 102.99 kg [employer] Work Phone: [facility] 11-04-2024 11:38-0400 Diastolic blood pressure 78 mm[Hg] [employer] Work Phone: [facility] 11-04-2024 11:38-0400 Heart rate 80 /min [employer] Work Phone: [facility] 11-04-2024 11:38-0400 Respiratory rate 18 /min [employer] Work Phone: [facility] 11-04-2024 11:38-0400 SaO2% (BldA) [Mass fraction] 96 % [employer] Work Phone: [facility] 11-04-2024 11:38-0400 Systolic blood pressure 134 mm[Hg] [employer] Work Phone: [facility] 10-26-2024 11:12-0400 Body height 172.72 cm [employer] Work Phone: [facility] 10-26-2024 11:12-0400 Body mass index (BMI) [Ratio] 34.7 kg/m2 [employer] Work Phone: [facility] 10-26-2024 11:12-0400 Body temperature 98.5 [degF] [employer] Work Phone: [facility] 10-26-2024 11:12-0400 Body weight 103.58 kg [employer] Work Phone: [facility] 10-26-2024 11:12-0400 Diastolic blood pressure 82 mm[Hg] [employer] Work Phone: [facility] 10-26-2024 11:12-0400 Heart rate 74 /min [employer] Work Phone: [facility] 10-26-2024 11:12-0400 SaO2% (BldA) [Mass fraction] 95 % [employer] Work Phone: [facility] 10-26-2024 11:12-0400 Systolic blood pressure 120 mm[Hg] [employer] Work Phone: [facility] 10-14-2024 13:57-0400 Diastolic blood pressure 70 mm[Hg] [employer] Work Phone: [facility] 10-14-2024 13:57-0400 Heart rate 92 /min [employer] Work Phone: [facility] 10-14-2024 13:57-0400 Systolic blood pressure 112 mm[Hg] [employer] Work Phone: [facility] 10-14-2024 10:06-0400 Body mass index (BMI) [Ratio] 34 kg/m2 [employer] Work Phone: [facility] 10-14-2024 10:06-0400 Body temperature 98.4 [degF] [employer] Work Phone: [facility] 10-14-2024 10:06-0400 Body weight 101.4 kg [employer] Work Phone: [facility] 10-14-2024 10:06-0400 Diastolic blood pressure 78 mm[Hg] [employer] Work Phone: [facility] 10-14-2024 10:06-0400 Heart rate 83 /min [employer] Work Phone: [facility] 10-14-2024 10:06-0400 Respiratory rate 18 /min [employer] Work Phone: [facility] 10-14-2024 10:06-0400 SaO2% (BldA) [Mass fraction] 98 % [employer] Work Phone: [facility] 10-14-2024 10:06-0400 Systolic blood pressure 126 mm[Hg] [employer] Work Phone: [facility] 09-23-2024 14:41-0400 Body temperature 97.7 [degF] [employer] Work Phone: [facility] 09-23-2024 14:41-0400 Respiratory rate 16 /min [employer] Work Phone: [facility] 09-23-2024 11:24-0400 Body mass index (BMI) [Ratio] 34.4 kg/m2 [employer] Work Phone: [facility] 09-23-2024 11:24-0400 Body temperature 98.5 [degF] [employer] Work Phone: [facility] 09-23-2024 11:24-0400 Body weight 102.71 kg [employer] Work Phone: [facility] 09-23-2024 11:24-0400 Diastolic blood pressure 86 mm[Hg] [employer] Work Phone: [facility] 09-23-2024 11:24-0400 Heart rate 76 /min [employer] Work Phone: [facility] 09-23-2024 11:24-0400 Respiratory rate 18 /min [employer] Work Phone: [facility] 09-23-2024 11:24-0400 SaO2% (BldA) [Mass fraction] 97 % [employer] Work Phone: [facility] 09-23-2024 11:24-0400 Systolic blood pressure 130 mm[Hg] [employer] Work Phone: [facility] 09-02-2024 14:34-0400 Body temperature 98.8 [degF] Maida Kim [employer]GER [employer] Work Phone: [facility] 09-02-2024 14:34-0400 Diastolic blood pressure 71 mm[Hg] Maida Kim [employer]NAGER [employer] Work Phone: [facility] 09-02-2024 14:34-0400 Heart rate 87 /min Maida Kim [employer]NAGER [employer] Work Phone: [facility] 09-02-2024 14:34-0400 Respiratory rate 16 /min Maida Kim [employer]NAGER [employer] Work Phone: [facility] 09-02-2024 14:34-0400 SaO2% (BldA) [Mass fraction] 98 % Maida Julio [employer]NAGER [employer] Work Phone: [facility] 09-02-2024 14:34-0400 Systolic blood pressure 134 mm[Hg] Maida Marcus Hook [employer]GER [employer] Work Phone: [facility] 09-02-2024 11:36-0400 Body height 172.72 cm Maida Julio MANAGER [employer] Work Phone: [facility] 09-02-2024 11:36-0400 Body temperature 98 [degF] Maida Julio [employer]NAGER [employer] Work Phone: [facility] 09-02-2024 11:36-0400 Diastolic blood pressure 72 mm[Hg] Maida Julio [employer]NAGER [employer] Work Phone: [facility] 09-02-2024 11:36-0400 Heart rate 86 /min Maida Julio [employer]NAGER [employer] Work Phone: [facility] 09-02-2024 11:36-0400 Respiratory rate 18 /min Maida Marcus Hook [employer]GER [employer] Work Phone: [facility] 09-02-2024 11:36-0400 SaO2% (BldA) [Mass fraction] 95 % Maida Marcus Hook [employer]NAGER [employer] Work Phone: [facility] 09-02-2024 11:36-0400 Systolic blood pressure 129 mm[Hg] Maida Julio [employer]NAGER [employer] Work Phone: [facility] 08-12-2024 13:38-0500 Body temperature 98.5 [degF] Maida Julio [employer]NAGER [employer] Work Phone: [facility] 08-12-2024 13:38-0500 Diastolic blood pressure 70 mm[Hg] Maida Julio MANAGER [employer] Work Phone: [facility] 08-12-2024 13:38-0500 Heart rate 73 /min Maida Marcus Hook [employer]GER [employer] Work Phone: [facility] 08-12-2024 13:38-0500 Respiratory rate 16 /min Maida Kim MANAGER [employer] Work Phone: [facility] 08-12-2024 13:38-0500 Systolic blood pressure 120 mm[Hg] Maida Kim MANAGER [employer] Work Phone: [facility] 08-12-2024 10:18-0500 Body height 172.72 cm Maida Kim MANAGER [employer] Work Phone: [facility] 08-12-2024 10:18-0500 Body mass index (BMI) [Ratio] 34.7 kg/m2 Maida Kim [employer]NAGER [employer] Work Phone: [facility] 08-12-2024 10:18-0500 Body temperature 98.6 [degF] Maida Kim MANAGER [employer] Work Phone: [facility] 08-12-2024 10:18-0500 Body weight 103.61 kg Maida Kim MANAGER [employer] Work Phone: [facility] 08-12-2024 10:18-0500 Diastolic blood pressure 74 mm[Hg] Maida Kim MANAGER [employer] Work Phone: [facility] 08-12-2024 10:18-0500 Heart rate 71 /min Maida Kim MANAGER [employer] Work Phone: [facility] 08-12-2024 10:18-0500 Respiratory rate 18 /min Maida Clinemer MANAGER [employer] Work Phone: [facility] 08-12-2024 10:18-0500 SaO2% (BldA) [Mass fraction] 97 % Maida Kim MANAGER [employer] Work Phone: [facility] 08-12-2024 10:18-0500 Systolic blood pressure 118 mm[Hg] Maida Kim MANAGER [employer] Work Phone: [facility] 07-22-2024 14:38-0500 SaO2% (BldA) [Mass fraction] 98 % Maida Julio MANAGER [employer] Work Phone: [facility] 07-22-2024 11:28-0500 Body mass index (BMI) [Ratio] 35.4 kg/m2 Maida Julio MANAGER [employer] Work Phone: [facility] 07-22-2024 11:28-0500 Body temperature 96.3 [degF] Maida Marcus Hook MANAGER [employer] Work Phone: [facility] 07-22-2024 11:28-0500 Body weight 105.68 kg Maida Julio MANAGER [employer] Work Phone: [facility] 07-22-2024 11:28-0500 Diastolic blood pressure 81 mm[Hg] Maida Julio MANAGER [employer] Work Phone: [facility] 07-22-2024 11:28-0500 Heart rate 83 /min Maida Marcus Hook MANAGER [employer] Work Phone: [facility] 07-22-2024 11:28-0500 Respiratory rate 16 /min Maida Marcus Hook [employer]NAGER [employer] Work Phone: [facility] 07-22-2024 11:28-0500 SaO2% (BldA) [Mass fraction] 98 % Maida Marcus Hook MANAGER [employer] Work Phone: [facility] 07-22-2024 11:28-0500 Systolic blood pressure 131 mm[Hg] Maida Marcus Hook MANAGER [employer] Work Phone: [facility] 07-01-2024 10:54-0500 Body mass index (BMI) [Ratio] 35.2 kg/m2 Maida Julio MANAGER [employer] Work Phone: [facility] 07-01-2024 10:54-0500 Body temperature 98.4 [degF] Maida Marcus Hook MANAGER [employer] Work Phone: [facility] 07-01-2024 10:54-0500 Body weight 104.97 kg Maida Marcus Hook MANAGER [employer] Work Phone: [facility] 07-01-2024 10:54-0500 Diastolic blood pressure 74 mm[Hg] Maida Kim MANAGER [employer] Work Phone: [facility] 07-01-2024 10:54-0500 Heart rate 74 /min Maidanicky Kim MANAGER [employer] Work Phone: [facility] 07-01-2024 10:54-0500 Respiratory rate 18 /min Maida Marcus Hook MANAGER [employer] Work Phone: [facility] 07-01-2024 10:54-0500 SaO2% (BldA) [Mass fraction] 97 % Maida Kim MANAGER [employer] Work Phone: [facility] 07-01-2024 10:54-0500 Systolic blood pressure 131 mm[Hg] Maida Kim MANAGER [employer] Work Phone: [facility] 06-16-2024 13:07-0500 Body mass index (BMI) [Ratio] 34.9 kg/m2 Maidanicky Kim MANAGER [employer] Work Phone: [facility] 06-16-2024 13:07-0500 Body temperature 97.6 [degF] Maida Clinemer MANAGER [employer] Work Phone: [facility] 06-16-2024 13:07-0500 Body weight 104.32 kg Maida Kim MANAGER [employer] Work Phone: [facility] 06-16-2024 13:07-0500 Diastolic blood pressure 87 mm[Hg] Maida Kim MANAGER [employer] Work Phone: [facility] 06-16-2024 13:07-0500 Heart rate 74 /min Maida Kim MANAGER [employer] Work Phone: [facility] 06-16-2024 13:07-0500 Respiratory rate 18 /min Maidanicky Kim MANAGER [employer] Work Phone: [facility] 06-16-2024 13:07-0500 SaO2% (BldA) [Mass fraction] 98 % Maida Kim MANAGER [employer] Work Phone: [facility] 06-16-2024 13:07-0500 Systolic blood pressure 143 mm[Hg] Madia Julio MANAGER [employer] Work Phone: [facility] 06-15-2024 11:05-0500 Body temperature 97.8 [degF] Maida Julio MANAGER [employer] Work Phone: [facility] 06-15-2024 11:05-0500 Diastolic blood pressure 73 mm[Hg] Maidanicky Clinemer MANAGER [employer] Work Phone: [facility] 06-15-2024 11:05-0500 Heart rate 85 /min Maida Julio MANAGER [employer] Work Phone: [facility] 06-15-2024 11:05-0500 Respiratory rate 18 /min Maida Clinemer MANAGER [employer] Work Phone: [facility] 06-15-2024 11:05-0500 SaO2% (BldA) [Mass fraction] 95 % Maidanicky Clinemer MANAGER [employer] Work Phone: [facility] 06-15-2024 11:05-0500 Systolic blood pressure 124 mm[Hg] Maida Clinemer MANAGER [employer] Work Phone: [facility] 06-10-2024 11:15-0500 Body mass index (BMI) [Ratio] 35.4 kg/m2 Maidanicky Clinemer MANAGER [employer] Work Phone: [facility] 06-10-2024 11:15-0500 Body temperature 98.9 [degF] Maida Clinemer MANAGER [employer] Work Phone: [facility] 06-10-2024 11:15-0500 Body weight 105.74 kg Maida Kim MANAGER [employer] Work Phone: [facility] 06-10-2024 11:15-0500 Diastolic blood pressure 83 mm[Hg] Maida Marcus Hook MANAGER [employer] Work Phone: [facility] 06-10-2024 11:15-0500 Heart rate 80 /min Maidacristian Kim MANAGER [employer] Work Phone: [facility] 06-10-2024 11:15-0500 Respiratory rate 18 /min Maida Julio MANAGER [employer] Work Phone: [facility] 06-10-2024 11:15-0500 SaO2% (BldA) [Mass fraction] 94 % Maida Julio MANAGER [employer] Work Phone: [facility] 06-10-2024 11:15-0500 Systolic blood pressure 143 mm[Hg] Maida Kim MANAGER [employer] Work Phone: [facility] 05-20-2024 11:11-0500 Body mass index (BMI) [Ratio] 34.9 kg/m2 Maidanicky Kim MANAGER [employer] Work Phone: [facility] 05-20-2024 11:11-0500 Body temperature 97.9 [degF] Maida Julio MANAGER [employer] Work Phone: [facility] 05-20-2024 11:11-0500 Body weight 104.32 kg Maida Julio MANAGER [employer] Work Phone: [facility] 05-20-2024 11:11-0500 Diastolic blood pressure 85 mm[Hg] Maida Kim MANAGER [employer] Work Phone: [facility] 05-20-2024 11:11-0500 Heart rate 85 /min Maidanicky Kim MANAGER [employer] Work Phone: [facility] 05-20-2024 11:11-0500 Respiratory rate 18 /min Maidacristian Kim MANAGER [employer] Work Phone: [facility] 05-20-2024 11:11-0500 SaO2% (BldA) [Mass fraction] 96 % Maida Kim MANAGER [employer] Work Phone: [facility] 05-20-2024 11:11-0500 Systolic blood pressure 136 mm[Hg] Maida Julio MANAGER [employer] Work Phone: [facility] 04-29-2024 11:31-0500 Body mass index (BMI) [Ratio] 34.7 kg/m2 Maida Marcus Hook MANAGER [employer] Work Phone: [facility] 04-29-2024 11:31-0500 Body temperature 98.5 [degF] Maida Marcus Hook MANAGER FIBER-C Work Phone: [facility] 04-29-2024 11:31-0500 Body weight 103.58 kg Maida Marcus Hook MANAGER FIBER-C Work Phone: [facility] 04-29-2024 11:31-0500 Diastolic blood pressure 82 mm[Hg] Maida Julio MANAGER FIBER-C Work Phone: [facility] 04-29-2024 11:31-0500 Heart rate 76 /min Maida Julio MANAGER FIBER-C Work Phone: [facility] 04-29-2024 11:31-0500 Respiratory rate 16 /min Maida Marcus Hook MANAGER FIBER-C Work Phone: [facility] 04-29-2024 11:31-0500 SaO2% (BldA) [Mass fraction] 98 % Maida Marcus Hook MANAGER FIBER-C Work Phone: [facility] 04-29-2024 11:31-0500 Systolic blood pressure 140 mm[Hg] Maida Marcus Hook MANAGER FIBER-C Work Phone: [facility] 10-28-2023 15:11-0400 Body mass index (BMI) [Ratio] 33.67 kg/m2 Gladis Rausch MD Work Phone: [facility] 10-28-2023 15:11-0400 Body weight 103.42 kg Gladis Rausch MD Work Phone: [facility] 10-28-2023 15:11-0400 Diastolic blood pressure 82 mm[Hg] Gladis Rausch MD Work Phone: [facility] [employer] [facility] [place] 10-28-2023 15:11-0400 Heart rate 82 /min Gladis Rausch MD Work Phone: [facility] 10-28-2023 15:11-0400 Systolic blood pressure 133 mm[Hg] Gladis Rausch MD Work Phone: [facility] 10-10-2023 11:15-0400 Diastolic blood pressure 97 mm[Hg] Gladis Rausch MD Work Phone: [facility] 10-10-2023 11:15-0400 Heart rate 81 /min Gladis Rausch MD Work Phone: [facility] 10-10-2023 11:15-0400 Respiratory rate 19 /min Gladis Rausch MD Work Phone: [facility] 10-10-2023 11:15-0400 SaO2% (BldA) [Mass fraction] 96 % Gladis Rausch MD Work Phone: [facility] 10-10-2023 11:15-0400 Systolic blood pressure 122 mm[Hg] Gladis Rausch MD Work Phone: [facility] 10-10-2023 11:04-0400 Body temperature 98.1 [degF] Gladis Rausch MD Work Phone: [facility] 09-02-2023 16:06-0400 Body height 174 cm Gladis Rausch MD Work Phone: [facility] 09-02-2023 16:06-0400 Body mass index (BMI) [Ratio] 33.71 kg/m2 Gladis Rausch MD Work Phone: [facility] 09-02-2023 16:06-0400 Body weight 102.06 kg Gladis Rausch MD Work Phone: [facility] 09-02-2023 16:06-0400 Diastolic blood pressure 77 mm[Hg] Gladis Rausch MD Work Phone: [facility] 09-02-2023 16:06-0400 Heart rate 88 /min Gladis Rausch MD Work Phone: [facility] 09-02-2023 16:06-0400 Systolic blood pressure 120 mm[Hg] Gladis Rausch MD Work Phone: [facility] 08-12-2023 10:33-0500 Body mass index (BMI) [Ratio] 33.86 kg/m2 Nikko Giraldo MD Work Phone: [facility] 08-12-2023 10:33-0500 Body weight 102.51 kg Nikko Giraldo MD Work Phone: [facility] 08-12-2023 10:33-0500 Diastolic blood pressure 81 mm[Hg] Nikko Giraldo MD Work Phone: [facility] 08-12-2023 10:33-0500 Heart rate 88 /min Nikko Giraldo MD Work Phone: [facility] 08-12-2023 10:33-0500 Systolic blood pressure 150 mm[Hg] Nikko Giraldo MD Work Phone: [facility] 07-31-2023 16:44-0500 Diastolic blood pressure 71 mm[Hg] MANAGER FIBER-C Maida Kim MANAGER FIBER Work Phone: [facility] 07-31-2023 16:44-0500 Heart rate 79 /min MANAGER FIBER-C Maida Kim MANAGER FIBER Work Phone: [facility] 07-31-2023 16:44-0500 Respiratory rate 16 /min MANAGER FIBER-C Maida Kim MANAGER FIBER Work Phone: [facility] 07-31-2023 16:44-0500 SaO2% (BldA) [Mass fraction] 97 % MANAGER FIBER-C Maida Kim MANAGER FIBER Work Phone: [facility] 07-31-2023 16:44-0500 Systolic blood pressure 128 mm[Hg] MANAGER FIBER-C Maida Kim MANAGER FIBER Work Phone: [facility] 07-31-2023 13:07-0500 Body height 172.72 cm MANAGER FIBER-C Maida Julio MANAGER FIBER Work Phone: [facility] 07-31-2023 13:07-0500 Body mass index (BMI) [Ratio] 34.5 kg/m2 MANAGER FIBER-C Maida Julio MANAGER FIBER Work Phone: [facility] 07-31-2023 13:07-0500 Body temperature 98.2 [degF] MANAGER FIBER-C Maida Julio MANAGER FIBER Work Phone: [facility] 07-31-2023 13:07-0500 Body weight 103.1 kg MANAGER FIBER-C Maida Julio MANAGER FIBER Work Phone: [facility] 07-31-2023 13:07-0500 Diastolic blood pressure 78 mm[Hg] MANAGER FIBER-C Maida Julio MANAGER FIBER Work Phone: [facility] 07-31-2023 13:07-0500 Heart rate 77 /min MANAGER FIBER-C Maida Julio MANAGER FIBER Work Phone: [facility] 07-31-2023 13:07-0500 Respiratory rate 18 /min MANAGER FIBER-C Maida Julio MANAGER FIBER Work Phone: [facility] 07-31-2023 13:07-0500 SaO2% (BldA) [Mass fraction] 97 % MANAGER FIBER-C Maida Julio MANAGER FIBER Work Phone: [facility] 07-31-2023 13:07-0500 Systolic blood pressure 132 mm[Hg] MANAGER FIBER-C Maida Julio MANAGER FIBER Work Phone: [facility] 07-10-2023 16:30-0500 Body temperature 98.1 [degF] MANAGER FIBER-C Maida Julio MANAGER FIBER Work Phone: [facility] 07-10-2023 13:07-0500 Body mass index (BMI) [Ratio] 35.2 kg/m2 MANAGER FIBER-C Maida Kim MANAGER FIBER Work Phone: [facility] 06-26-2023 13:10-0500 Body mass index (BMI) [Ratio] 34.3 kg/m2 MANAGER FIBER-C Maida Julio MANAGER FIBER Work Phone: [facility] 06-26-2023 13:10-0500 Body temperature 98.5 [degF] MANAGER FIBER-C Maida Marcus Hook MANAGER FIBER Work Phone: [facility] 06-26-2023 13:10-0500 Body weight 102.54 kg MANAGER FIBER-C Maida Julio MANAGER FIBER Work Phone: [facility] 06-26-2023 13:10-0500 Diastolic blood pressure 88 mm[Hg] MANAGER FIBER-C Maida Julio MANAGER FIBER Work Phone: [facility] 06-26-2023 13:10-0500 Heart rate 82 /min MANAGER FIBER-C Maida Clinemer MANAGER FIBER Work Phone: [facility] 06-26-2023 13:10-0500 Respiratory rate 18 /min MANAGER FIBER-C Maida Julio MANAGER FIBER Work Phone: [facility] 06-26-2023 13:10-0500 SaO2% (BldA) [Mass fraction] 98 % MANAGER FIBER-C Maidanicky Kim MANAGER FIBER Work Phone: [facility] 06-26-2023 13:10-0500 Systolic blood pressure 139 mm[Hg] MANAGER FIBER-C Maida Julio MANAGER FIBER Work Phone: [facility] 06-20-2023 11:09-0500 Body mass index (BMI) [Ratio] 34.8 kg/m2 MANAGER FIBER-C Maida Kim MANAGER FIBER Work Phone: [facility] 06-20-2023 11:09-0500 Body temperature 98 [degF] MANAGER FIBER-C Maida Kim MANAGER FIBER Work Phone: [facility] 06-20-2023 11:09-0500 Body weight 103.87 kg MANAGER FIBER-C Maida Kim MANAGER FIBER Work Phone: [facility] 06-20-2023 11:09-0500 Diastolic blood pressure 83 mm[Hg] MANAGER FIBER-C Maida Kim MANAGER FIBER Work Phone: [facility] 06-20-2023 11:09-0500 Heart rate 74 /min MANAGER FIBER-C Maida Julio MANAGER FIBER Work Phone: [facility] 06-20-2023 11:09-0500 Respiratory rate 18 /min MANAGER FIBER-C Maida Julio MANAGER FIBER Work Phone: [facility] 06-20-2023 11:09-0500 SaO2% (BldA) [Mass fraction] 98 % MANAGER FIBER-C Maida Julio MANAGER FIBER Work Phone: [facility] 06-20-2023 11:09-0500 Systolic blood pressure 138 mm[Hg] MANAGER FIBER-C Maida Julio MANAGER FIBER Work Phone: [facility] 06-05-2023 13:17-0500 Body mass index (BMI) [Ratio] 34.4 kg/m2 MANAGER FIBER-C Maida Kim MANAGER FIBER Work Phone: [facility] 06-05-2023 13:17-0500 Body temperature 98.7 [degF] MANAGER FIBER-C Maida Julio MANAGER FIBER Work Phone: [facility] 06-05-2023 13:17-0500 Body weight 102.71 kg MANAGER FIBER-C Maida Marcus Hook MANAGER FIBER Work Phone: [facility] 06-05-2023 13:17-0500 Diastolic blood pressure 78 mm[Hg] MANAGER FIBER-C Maida Kim MANAGER FIBER Work Phone: [facility] 06-05-2023 13:17-0500 Heart rate 77 /min MANAGER FIBER-C Maida Kim MANAGER FIBER Work Phone: [facility] 06-05-2023 13:17-0500 Respiratory rate 18 /min MANAGER FIBER-C Maida Kim MANAGER FIBER Work Phone: [facility] 06-05-2023 13:17-0500 SaO2% (BldA) [Mass fraction] 99 % MANAGER FIBER-C Maida Kim MANAGER FIBER Work Phone: [facility] 06-05-2023 13:17-0500 Systolic blood pressure 132 mm[Hg] MANAGER FIBER-C Maida Clinemer MANAGER FIBER Work Phone: [facility] 05-15-2023 13:06-0500 Body mass index (BMI) [Ratio] 34.2 kg/m2 MANAGER FIBER-C Maida Clinemer MANAGER FIBER Work Phone: [facility] 05-15-2023 13:06-0500 Body temperature 99.1 [degF] MANAGER FIBER-C Maida Clinemer MANAGER FIBER Work Phone: [facility] 05-15-2023 13:06-0500 Body weight 102.14 kg MANAGER FIBER-C Maida Clinemer MANAGER FIBER Work Phone: [facility] 05-15-2023 13:06-0500 Diastolic blood pressure 82 mm[Hg] MANAGER FIBER-C Maida Clinemer MANAGER FIBER Work Phone: [facility] 05-15-2023 13:06-0500 Heart rate 78 /min MANAGER FIBER-C Maida Clinemer MANAGER FIBER Work Phone: [facility] 05-15-2023 13:06-0500 Respiratory rate 18 /min MANAGER FIBER-C Maida Clinemer MANAGER FIBER Work Phone: [facility] 05-15-2023 13:06-0500 SaO2% (BldA) [Mass fraction] 96 % MANAGER FIBER-C Maida Clinemer MANAGER FIBER Work Phone: [facility] 05-15-2023 13:06-0500 Systolic blood pressure 142 mm[Hg] MANAGER FIBER-C Maida Clinemer MANAGER FIBER Work Phone: [facility] 05-13-2023 08:40-0500 Body mass index (BMI) [Ratio] 34.01 kg/m2 Nikko Giraldo MD Work Phone: [facility] 05-13-2023 08:40-0500 Body weight 102.97 kg Nikko Giraldo MD Work Phone: [facility] 05-13-2023 08:40-0500 Diastolic blood pressure 84 mm[Hg] Nikko Giraldo MD Work Phone: [facility] 05-13-2023 08:40-0500 Heart rate 85 /min Nikko Giraldo MD Work Phone: [facility] 05-13-2023 08:40-0500 Systolic blood pressure 148 mm[Hg] Nikko Giraldo MD Work Phone: [facility] 04-24-2023 17:11-0500 Body temperature 97.7 [degF] MANAGER FIBER-C Maida Kim MANAGER FIBER Work Phone: [facility] 04-24-2023 17:11-0500 Diastolic blood pressure 56 mm[Hg] MANAGER FIBER-C Maida Kim MANAGER FIBER Work Phone: [facility] 04-24-2023 17:11-0500 Heart rate 76 /min MANAGER FIBER-C Maida Kim MANAGER FIBER Work Phone: [facility] 04-24-2023 17:11-0500 Respiratory rate 16 /min MANAGER FIBER-C Maida Kim MANAGER FIBER Work Phone: [facility] 04-24-2023 17:11-0500 SaO2% (BldA) [Mass fraction] 100 % MANAGER FIBER-C Maida Kim MANAGER FIBER Work Phone: [facility] 04-24-2023 17:11-0500 Systolic blood pressure 129 mm[Hg] MANAGER FIBER-C Maida Kim MANAGER FIBER Work Phone: [facility] 04-24-2023 13:00-0500 Body height 172.72 cm MANAGER FIBER-C Maida Kim MANAGER FIBER Work Phone: [facility] 04-24-2023 13:00-0500 Body mass index (BMI) [Ratio] 33.9 kg/m2 MANAGER FIBER-C Maida Kim MANAGER FIBER Work Phone: [facility] 04-24-2023 13:00-0500 Body temperature 98.7 [degF] MANAGER FIBER-C Maida Julio MANAGER FIBER Work Phone: [facility] 04-24-2023 13:00-0500 Body weight 101.23 kg MANAGER FIBER-C Maida Julio MANAGER FIBER Work Phone: [facility] 04-24-2023 13:00-0500 Diastolic blood pressure 87 mm[Hg] MANAGER FIBER-C Maida Julio MANAGER FIBER Work Phone: [facility] 04-24-2023 13:00-0500 Heart rate 79 /min MANAGER FIBER-C Maida Julio MANAGER FIBER Work Phone: [facility] 04-24-2023 13:00-0500 Respiratory rate 18 /min MANAGER FIBER-C Maida Julio MANAGER FIBER Work Phone: [facility] 04-24-2023 13:00-0500 SaO2% (BldA) [Mass fraction] 97 % MANAGER FIBER-C Maida Julio MANAGER FIBER Work Phone: [facility] 04-24-2023 13:00-0500 Systolic blood pressure 134 mm[Hg] MANAGER FIBER-C Maida Julio MANAGER FIBER Work Phone: [facility] 04-03-2023 13:01-0400 Body mass index (BMI) [Ratio] 34.1 kg/m2 MANAGER FIBER-C Maida Julio MANAGER FIBER Work Phone: [facility] 04-03-2023 13:01-0400 Body temperature 98.4 [degF] MANAGER FIBER-C Maida Julio MANAGER FIBER Work Phone: [facility] 04-03-2023 13:01-0400 Body weight 101.85 kg MANAGER FIBER-C Maida Kim MANAGER FIBER Work Phone: [facility] 04-03-2023 13:01-0400 Diastolic blood pressure 86 mm[Hg] MANAGER FIBER-C Maida Kim MANAGER FIBER Work Phone: [facility] 04-03-2023 13:01-0400 Heart rate 83 /min MANAGER FIBER-C Maida Kim MANAGER FIBER Work Phone: [facility] 04-03-2023 13:01-0400 Respiratory rate 18 /min MANAGER FIBER-C Maida Marcus Hook MANAGER FIBER Work Phone: [facility] 04-03-2023 13:01-0400 SaO2% (BldA) [Mass fraction] 96 % MANAGER FIBER-C Maida Julio MANAGER FIBER Work Phone: [facility] 04-03-2023 13:01-0400 Systolic blood pressure 142 mm[Hg] MANAGER FIBER-C Maida Marcus Hook MANAGER FIBER Work Phone: [facility] 03-13-2023 16:33-0400 Body temperature 97.8 [degF] MANAGER FIBER-C Maida Julio MANAGER FIBER Work Phone: [facility] 03-13-2023 16:33-0400 Diastolic blood pressure 79 mm[Hg] MANAGER FIBER-C Maida Marcus Hook MANAGER FIBER Work Phone: [facility] 03-13-2023 16:33-0400 Heart rate 73 /min MANAGER FIBER-C Maida Julio MANAGER FIBER Work Phone: [facility] 03-13-2023 16:33-0400 Respiratory rate 16 /min MANAGER FIBER-C Maida Julio MANAGER FIBER Work Phone: [facility] 03-13-2023 16:33-0400 SaO2% (BldA) [Mass fraction] 97 % MANAGER FIBER-C Maida Julio MANAGER FIBER Work Phone: [facility] 03-13-2023 16:33-0400 Systolic blood pressure 136 mm[Hg] MANAGER FIBER-C Maida Julio MANAGER FIBER Work Phone: [facility] 03-13-2023 13:47-0400 Body height 172.72 cm MANAGER FIBER-C Maida Julio MANAGER FIBER Work Phone: [facility] 03-13-2023 12:55-0400 Body mass index (BMI) [Ratio] 33.8 kg/m2 MANAGER FIBER-C Maida Marcus Hook MANAGER FIBER Work Phone: [facility] 03-13-2023 12:55-0400 Body temperature 98.6 [degF] MANAGER FIBER-C Maida Julio MANAGER FIBER Work Phone: [facility] 03-13-2023 12:55-0400 Body weight 100.89 kg MANAGER FIBER-C Maida Julio MANAGER FIBER Work Phone: [facility] 03-13-2023 12:55-0400 Diastolic blood pressure 82 mm[Hg] MANAGER FIBER-C Maida Julio MANAGER FIBER Work Phone: [facility] 03-13-2023 12:55-0400 Heart rate 82 /min MANAGER FIBER-C Maida Julio MANAGER FIBER Work Phone: [facility] 03-13-2023 12:55-0400 Respiratory rate 18 /min MANAGER FIBER-C Maida Marcus Hook MANAGER FIBER Work Phone: [facility] 03-13-2023 12:55-0400 SaO2% (BldA) [Mass fraction] 95 % MANAGER FIBER-C Maida Marcus Hook MANAGER FIBER Work Phone: [facility] 03-13-2023 12:55-0400 Systolic blood pressure 126 mm[Hg] MANAGER FIBER-C Maida Marcus Hook MANAGER FIBER Work Phone: [facility] 02-13-2023 13:16-0400 Body mass index (BMI) [Ratio] 38.3 kg/m2 MANAGER FIBER-C Maida Marcus Hook MANAGER FIBER Work Phone: [facility] 02-13-2023 13:16-0400 Body temperature 98.4 [degF] MANAGER FIBER-C Maida Marcus Hook MANAGER FIBER Work Phone: [facility] 02-13-2023 13:16-0400 Body weight 101.4 kg MANAGER FIBER-C Maida Marcus Hook MANAGER FIBER Work Phone: [facility] 02-13-2023 13:16-0400 Diastolic blood pressure 76 mm[Hg] MANAGER FIBER-C Maida Julio MANAGER FIBER Work Phone: [facility] 02-13-2023 13:16-0400 Heart rate 70 /min MANAGER FIBER-C Maida Julio MANAGER FIBER Work Phone: [facility] 02-13-2023 13:16-0400 Respiratory rate 18 /min MANAGER FIBER-C Maida Julio MANAGER FIBER Work Phone: [facility] 02-13-2023 13:16-0400 SaO2% (BldA) [Mass fraction] 96 % MANAGER FIBER-C Maida Julio MANAGER FIBER Work Phone: [facility] 02-13-2023 13:16-0400 Systolic blood pressure 131 mm[Hg] MANAGER FIBER-C Maida Julio MANAGER FIBER Work Phone: [facility] 01-23-2023 16:13-0400 Diastolic blood pressure 61 mm[Hg] MANAGER FIBER-C Maida Julio MANAGER FIBER Work Phone: [facility] 01-23-2023 16:13-0400 Heart rate 70 /min MANAGER FIBER-C Maida Marcus Hook MANAGER FIBER Work Phone: [facility] 01-23-2023 16:13-0400 Systolic blood pressure 123 mm[Hg] MANAGER FIBER-C Maida Julio MANAGER FIBER Work Phone: [facility] 01-23-2023 12:58-0400 Body height 162.56 cm MANAGER FIBER-C Maida Marcus Hook MANAGER FIBER Work Phone: [facility] 01-23-2023 12:53-0400 Body mass index (BMI) [Ratio] 38.8 kg/m2 MANAGER FIBER-C Maida Julio MANAGER FIBER Work Phone: [facility] 01-23-2023 12:53-0400 Body temperature 98.8 [degF] MANAGER FIBER-C Maida Marcus Hook MANAGER FIBER Work Phone: [facility] 01-23-2023 12:53-0400 Body weight 102.65 kg MANAGER FIBER-C Maida Marcus Hook MANAGER FIBER Work Phone: [facility] 01-23-2023 12:53-0400 Diastolic blood pressure 76 mm[Hg] MANAGER FIBER-C Maida Marcus Hook MANAGER FIBER Work Phone: [facility] 01-23-2023 12:53-0400 Heart rate 84 /min MANAGER FIBER-C Maida Kim MANAGER FIBER Work Phone: [facility] 01-23-2023 12:53-0400 Respiratory rate 18 /min MANAGER FIBER-C Maida Kim MANAGER FIBER Work Phone: [facility] 01-23-2023 12:53-0400 SaO2% (BldA) [Mass fraction] 96 % MANAGER FIBER-C Maida Clinemer MANAGER FIBER Work Phone: [facility] 01-23-2023 12:53-0400 Systolic blood pressure 126 mm[Hg] MANAGER FIBER-C Maida Clinemer MANAGER FIBER Work Phone: [facility] 01-02-2023 16:56-0400 Respiratory rate 14 /min MANAGER FIBER-C Maida Kim MANAGER FIBER Work Phone: [facility] 01-02-2023 16:56-0400 SaO2% (BldA) [Mass fraction] 100 % MANAGER FIBER-C Maida Kim MANAGER FIBER Work Phone: [facility] 01-02-2023 13:03-0400 Body mass index (BMI) [Ratio] 38.9 kg/m2 MANAGER FIBER-C Maida Kim MANAGER FIBER Work Phone: [facility] 01-02-2023 13:03-0400 Body temperature 98.2 [degF] MANAGER FIBER-C Maida Kim MANAGER FIBER Work Phone: [facility] 01-02-2023 13:03-0400 Body weight 103.07 kg MANAGER FIBER-C Maida Kim MANAGER FIBER Work Phone: [facility] 01-02-2023 13:03-0400 Diastolic blood pressure 74 mm[Hg] MANAGER FIBER-C Maida Kim MANAGER FIBER Work Phone: [facility] 01-02-2023 13:03-0400 Heart rate 74 /min MANAGER FIBER-C Maida Kim MANAGER FIBER Work Phone: [facility] 01-02-2023 13:03-0400 Respiratory rate 16 /min MANAGER FIBER-C Maida Julio MANAGER FIBER Work Phone: [facility] 01-02-2023 13:03-0400 SaO2% (BldA) [Mass fraction] 96 % MANAGER FIBER-C Maida Marcus Hook MANAGER FIBER Work Phone: [facility] 01-02-2023 13:03-0400 Systolic blood pressure 128 mm[Hg] MANAGER FIBER-C Maida Marcus Hook MANAGER FIBER Work Phone: [facility] 12-19-2022 16:05-0400 Body mass index (BMI) [Ratio] 39 kg/m2 MANAGER FIBER-C Maida Julio MANAGER FIBER Work Phone: [facility] 12-19-2022 16:05-0400 Body temperature 97 [degF] MANAGER FIBER-C Maida Marcus Hook MANAGER FIBER Work Phone: [facility] 12-19-2022 16:05-0400 Body weight 103.19 kg MANAGER FIBER-C Maida Julio MANAGER FIBER Work Phone: [facility] 12-19-2022 16:05-0400 Diastolic blood pressure 79 mm[Hg] MANAGER FIBER-C Maida Marcus Hook MANAGER FIBER Work Phone: [facility] 12-19-2022 16:05-0400 Heart rate 87 /min MANAGER FIBER-C Maida Julio MANAGER FIBER Work Phone: [facility] 12-19-2022 16:05-0400 Respiratory rate 16 /min MANAGER FIBER-C Maida Julio MANAGER FIBER Work Phone: [facility] 12-19-2022 16:05-0400 SaO2% (BldA) [Mass fraction] 97 % MANAGER FIBER-C Maida Marcus Hook MANAGER FIBER Work Phone: [facility] 12-19-2022 16:05-0400 Systolic blood pressure 143 mm[Hg] MANAGER FIBER-C Maida Marcus Hook MANAGER FIBER Work Phone: [facility] 12-12-2022 16:32-0400 Body temperature 97 [degF] MANAGER FIBER-C Maida Julio MANAGER FIBER Work Phone: [facility] 12-12-2022 13:05-0400 Body mass index (BMI) [Ratio] 38.6 kg/m2 MANAGER FIBER-C Maida Marcus Hook MANAGER FIBER Work Phone: [facility] 12-12-2022 13:05-0400 Body temperature 97.6 [degF] MANAGER FIBER-C Maida Kim MANAGER FIBER Work Phone: [facility] 12-12-2022 13:05-0400 Body weight 102.05 kg MANAGER FIBER-C Maida Kim MANAGER FIBER Work Phone: [facility] 12-12-2022 13:05-0400 Diastolic blood pressure 75 mm[Hg] MANAGER FIBER-C Maida Kim MANAGER FIBER Work Phone: [facility] 12-12-2022 13:05-0400 Heart rate 80 /min MANAGER FIBER-C Maida Kim MANAGER FIBER Work Phone: [facility] 12-12-2022 13:05-0400 Respiratory rate 18 /min MANAGER FIBER-C Maida Julio MANAGER FIBER Work Phone: [facility] 12-12-2022 13:05-0400 SaO2% (BldA) [Mass fraction] 98 % MANAGER FIBER-C Maida Kim MANAGER FIBER Work Phone: [facility] 12-12-2022 13:05-0400 Systolic blood pressure 125 mm[Hg] MANAGER FIBER-C Maida Kim MANAGER FIBER Work Phone: [facility] [facility] 11-[facility]-2022 16:11-0400 Body temperature 97 [degF] MANAGER FIBER-C Maida Kim MANAGER FIBER Work Phone: [facility] 11-21-2022 16:11-0400 Diastolic blood pressure 55 mm[Hg] MANAGER FIBER-C Maida Kim MANAGER FIBER Work Phone: [facility] 11-21-2022 16:11-0400 Heart rate 77 /min MANAGER FIBER-C Maida Kim MANAGER FIBER Work Phone: [facility] 11-21-2022 16:11-0400 Respiratory rate 16 /min MANAGER FIBER-C Maida Julio MANAGER FIBER Work Phone: [facility] 11-21-2022 16:11-0400 SaO2% (BldA) [Mass fraction] 98 % MANAGER FIBER-C Maida Julio MANAGER FIBER Work Phone: [facility] 11-21-2022 16:11-0400 Systolic blood pressure 118 mm[Hg] MANAGER FIBER-C Maida Julio MANAGER FIBER Work Phone: [facility] 11-21-2022 13:49-0400 Body height 162.56 cm MANAGER FIBER-C Maida Julio MANAGER FIBER Work Phone: [facility] 11-21-2022 13:49-0400 Body mass index (BMI) [Ratio] 39.4 kg/m2 MANAGER FIBER-C Maida Kim MANAGER FIBER Work Phone: [facility] 11-21-2022 13:49-0400 Body weight 104.41 kg MANAGER FIBER-C Maida Kim MANAGER FIBER Work Phone: [facility] 11-21-2022 13:02-0400 Body mass index (BMI) [Ratio] 39.4 kg/m2 MANAGER FIBER-C Maida Julio MANAGER FIBER Work Phone: [facility] 11-21-2022 13:02-0400 Body temperature 98.3 [degF] MANAGER FIBER-C Maida Kim MANAGER FIBER Work Phone: [facility] 11-21-2022 13:02-0400 Body weight 104.41 kg MANAGER FIBER-C Maida Kim MANAGER FIBER Work Phone: [facility] 11-21-2022 13:02-0400 Diastolic blood pressure 73 mm[Hg] MANAGER FIBER-C Maida Kim MANAGER FIBER Work Phone: [facility] 11-21-2022 13:02-0400 Heart rate 81 /min MANAGER FIBER-C Maida Kim MANAGER FIBER Work Phone: [facility] 11-21-2022 13:02-0400 Respiratory rate 16 /min MANAGER FIBER-C Maida Kim MANAGER FIBER Work Phone: [facility] 11-21-2022 13:02-0400 SaO2% (BldA) [Mass fraction] 95 % MANAGER FIBER-C Maida Kim MANAGER FIBER Work Phone: [facility] 11-21-2022 13:02-0400 Systolic blood pressure 134 mm[Hg] MANAGER FIBER-C Maida Kim MANAGER FIBER Work Phone: [facility] 10-31-2022 16:45-0400 Body temperature 97.7 [degF] MANAGER FIBER-C Maida Kim MANAGER FIBER Work Phone: [facility] 10-31-2022 16:45-0400 Diastolic blood pressure 56 mm[Hg] MANAGER FIBER-C Maida Kim MANAGER FIBER Work Phone: [facility] 10-31-2022 16:45-0400 Heart rate 85 /min MANAGER FIBER-C Maida Julio MANAGER FIBER Work Phone: [facility] 10-31-2022 16:45-0400 Respiratory rate 16 /min MANAGER FIBER-C Maida Julio MANAGER FIBER Work Phone: [facility] 10-31-2022 16:45-0400 Systolic blood pressure 119 mm[Hg] MANAGER FIBER-C Maida Kim MANAGER FIBER Work Phone: [facility] 10-31-2022 13:50-0400 Body height 162.56 cm MANAGER FIBER-C Maida Kim MANAGER FIBER Work Phone: [facility] 10-31-2022 13:50-0400 Body mass index (BMI) [Ratio] 41.4 kg/m2 MANAGER FIBER-C Maida Julio MANAGER FIBER Work Phone: [facility] 10-31-2022 13:50-0400 Body weight 109.57 kg MANAGER FIBER-C Maida Kim MANAGER FIBER Work Phone: [facility] 10-31-2022 13:11-0400 Body mass index (BMI) [Ratio] 41.4 kg/m2 MANAGER FIBER-C Maida Julio MANAGER FIBER Work Phone: [facility] 10-31-2022 13:11-0400 Body temperature 97.9 [degF] MANAGER FIBER-C Maida Julio MANAGER FIBER Work Phone: [facility] 10-31-2022 13:11-0400 Body weight 109.57 kg MANAGER FIBER-C Maida Julio MANAGER FIBER Work Phone: [facility] 10-31-2022 13:11-0400 Diastolic blood pressure 80 mm[Hg] MANAGER FIBER-C Maida Julio MANAGER FIBER Work Phone: [facility] 10-31-2022 13:11-0400 Heart rate 87 /min MANAGER FIBER-C Maida Julio MANAGER FIBER Work Phone: [facility] 10-31-2022 13:11-0400 Respiratory rate 16 /min MANAGER FIBER-C Maida Julio MANAGER FIBER Work Phone: [facility] 10-31-2022 13:11-0400 SaO2% (BldA) [Mass fraction] 97 % MANAGER FIBER-C Maida Julio MANAGER FIBER Work Phone: [facility] 10-31-2022 13:11-0400 Systolic blood pressure 130 mm[Hg] MANAGER FIBER-C Maida Julio MANAGER FIBER Work Phone: [facility] 10-11-2022 14:47-0400 SaO2% (BldA) [Mass fraction] 98 % MANAGER FIBER-C Maida Julio MANAGER FIBER Work Phone: [facility] 10-10-2022 08:24-0400 Body mass index (BMI) [Ratio] 40.2 kg/m2 MANAGER FIBER-C Maida Kim MANAGER FIBER Work Phone: [facility] 10-10-2022 08:24-0400 Body temperature 98.4 [degF] MANAGER FIBER-C Maida Kim MANAGER FIBER Work Phone: [facility] 10-10-2022 08:24-0400 Body weight 106.28 kg MANAGER FIBER-C Maida Julio MANAGER FIBER Work Phone: [facility] 10-10-2022 08:24-0400 Diastolic blood pressure 81 mm[Hg] MANAGER FIBER-C Maida Julio MANAGER FIBER Work Phone: [facility] 10-10-2022 08:24-0400 Heart rate 98 /min MANAGER FIBER-C Maida Kim MANAGER FIBER Work Phone: [facility] 10-10-2022 08:24-0400 Respiratory rate 16 /min MANAGER FIBER-C Maida Julio MANAGER FIBER Work Phone: [facility] 10-10-2022 08:24-0400 SaO2% (BldA) [Mass fraction] 99 % MANAGER FIBER-C Maida Kim MANAGER FIBER Work Phone: [facility] 10-10-2022 08:24-0400 Systolic blood pressure 134 mm[Hg] MANAGER FIBER-C Maida Julio MANAGER FIBER Work Phone: [facility] 09-30-2022 14:59-0400 Body mass index (BMI) [Ratio] 39.4 kg/m2 MANAGER FIBER-C Maida Julio MANAGER FIBER Work Phone: [facility] 09-30-2022 14:59-0400 Body temperature 97 [degF] MANAGER FIBER-C Maida Julio MANAGER FIBER Work Phone: [facility] 09-30-2022 14:59-0400 Body weight 104.09 kg MANAGER FIBER-C Maida Julio MANAGER FIBER Work Phone: [facility] 09-30-2022 14:59-0400 Diastolic blood pressure 83 mm[Hg] MANAGER FIBER-C Maida Julio MANAGER FIBER Work Phone: [facility] 09-30-2022 14:59-0400 Heart rate 100 /min MANAGER FIBER-C Maida Kim MANAGER FIBER Work Phone: [facility] 09-30-2022 14:59-0400 Respiratory rate 16 /min MANAGER FIBER-C Maida Julio MANAGER FIBER Work Phone: [facility] 09-30-2022 14:59-0400 SaO2% (BldA) [Mass fraction] 96 % MANAGER FIBER-Amairani Kim MANAGER FIBER Work Phone: [facility] 09-30-2022 14:59-0400 Systolic blood pressure 136 mm[Hg] MANAGER FIBER-Amairani Kmi MANAGER FIBER Work Phone: [facility] 09-24-2022 15:14-0400 Body height 171.5 cm Josh Mancuso MD Work Phone: [facility] 09-24-2022 15:14-0400 Body mass index (BMI) [Ratio] 35.56 kg/m2 Josh Mancuso MD Work Phone: [facility] 09-24-2022 15:14-0400 Body temperature 98.01 [degF] Josh Mancuso MD Work Phone: [facility] 09-24-2022 15:14-0400 Body weight 104.6 kg Josh Mancuso MD Work Phone: [facility] 09-24-2022 15:14-0400 Diastolic blood pressure 62 mm[Hg] Josh Mancuso MD Work Phone: [facility] 09-24-2022 15:14-0400 Heart rate 95 /min Josh Mancuso MD Work Phone: [facility] 09-24-2022 15:14-0400 Respiratory rate 16 /min Josh Mancuso MD Work Phone: [facility] 09-24-2022 15:14-0400 SaO2% (BldA) [Mass fraction] 99 % Josh Mancuso MD Work Phone: [facility] 09-24-2022 15:14-0400 Systolic blood pressure 131 mm[Hg] Josh Mancuso MD Work Phone: [facility] 09-19-2022 08:17-0400 Body mass index (BMI) [Ratio] 40 kg/m2 MANAGER FIBER-C Maida Kim MANAGER FIBER Work Phone: [facility] 09-19-2022 08:17-0400 Body temperature 98.4 [degF] MANAGER FIBER-C Maida Kim MANAGER FIBER Work Phone: [facility] 09-19-2022 08:17-0400 Body weight 105.88 kg MANAGER FIBER-C Maida Kim MANAGER FIBER Work Phone: [facility] 09-19-2022 08:17-0400 Diastolic blood pressure 81 mm[Hg] MANAGER FIBER-C Maida Kim MANAGER FIBER Work Phone: [facility] 09-19-2022 08:17-0400 Heart rate 94 /min MANAGER FIBER-C Maida Kim MANAGER FIBER Work Phone: [facility] 09-19-2022 08:17-0400 Respiratory rate 18 /min MANAGER FIBER-C Maida Kim MANAGER FIBER Work Phone: [facility] 09-19-2022 08:17-0400 SaO2% (BldA) [Mass fraction] 98 % MANAGER FIBER-C Maida Kim MANAGER FIBER Work Phone: [facility] 09-19-2022 08:17-0400 Systolic blood pressure 138 mm[Hg] MANAGER FIBER-C Maida Kim MANAGER FIBER Work Phone: [facility] 08-29-2022 08:31-0400 Body mass index (BMI) [Ratio] 35.2 kg/m2 MANAGER FIBER-C Maida Kim MANAGER FIBER Work Phone: [facility] 08-29-2022 08:31-0400 Body temperature 98.3 [degF] MANAGER FIBER-C Maida Kim MANAGER FIBER Work Phone: [facility] 08-29-2022 08:31-0400 Body weight 105.26 kg MANAGER FIBER-C Maida Kim MANAGER FIBER Work Phone: [facility] 08-29-2022 08:31-0400 Diastolic blood pressure 85 mm[Hg] MANAGER FIBER-C Maida Kim MANAGER FIBER Work Phone: [facility] 08-29-2022 08:31-0400 Heart rate 88 /min MANAGER FIBER-C Maida Kim MANAGER FIBER Work Phone: [facility] 08-29-2022 08:31-0400 Respiratory rate 17 /min MANAGER FIBER-C Maida Kim MANAGER FIBER Work Phone: [facility] 08-29-2022 08:31-0400 SaO2% (BldA) [Mass fraction] 95 % MANAGER FIBER-C Maida Kim MANAGER FIBER Work Phone: [facility] 08-29-2022 08:31-0400 Systolic blood pressure 145 mm[Hg] MANAGER FIBER-C Maida Kim MANAGER FIBER Work Phone: [facility] 08-22-2022 08:59-0400 Body height 172.72 cm MANAGER FIBER-C Maida Kim MANAGER FIBER Work Phone: [facility] 08-22-2022 08:59-0400 Body mass index (BMI) [Ratio] 35.3 kg/m2 MANAGER FIBER-C Maida Kim MANAGER FIBER Work Phone: [facility] 08-22-2022 08:59-0400 Body temperature 97.5 [degF] MANAGER FIBER-C Maida Kim MANAGER FIBER Work Phone: [facility] 08-22-2022 08:59-0400 Body weight 105.48 kg MANAGER FIBER-C Maida Kim MANAGER FIBER Work Phone: [facility] 08-22-2022 08:59-0400 Diastolic blood pressure 82 mm[Hg] MANAGER FIBER-C Maida Kim MANAGER FIBER Work Phone: [facility] 08-22-2022 08:59-0400 Heart rate 82 /min MANAGER FIBER-C Maida Kim MANAGER FIBER Work Phone: [facility] 08-22-2022 08:59-0400 Respiratory rate 16 /min MANAGER FIBER-C Maida Clinemer MANAGER FIBER Work Phone: [facility] 08-22-2022 08:59-0400 SaO2% (BldA) [Mass fraction] 96 % MANAGER FIBER-C Maida Julio MANAGER FIBER Work Phone: [facility] 08-22-2022 08:59-0400 Systolic blood pressure 124 mm[Hg] MANAGER FIBER-C Maida Julio MANAGER FIBER Work Phone: [facility] 08-09-2022 14:23-0500 Body temperature 97.5 [degF] MANAGER FIBER-C Maida Julio MANAGER FIBER Work Phone: [facility] 08-09-2022 14:23-0500 Diastolic blood pressure 76 mm[Hg] MANAGER FIBER-C Maida Julio MANAGER FIBER Work Phone: [facility] 08-09-2022 14:23-0500 Heart rate 81 /min MANAGER FIBER-C Maida Marcus Hook MANAGER FIBER Work Phone: [facility] 08-09-2022 14:23-0500 Respiratory rate 16 /min MANAGER FIBER-C Maida Marcus Hook MANAGER FIBER Work Phone: [facility] 08-09-2022 14:23-0500 SaO2% (BldA) [Mass fraction] 98 % MANAGER FIBER-C Maida Julio MANAGER FIBER Work Phone: [facility] 08-09-2022 14:23-0500 Systolic blood pressure 130 mm[Hg] MANAGER FIBER-C Maida Marcus Hook MANAGER FIBER Work Phone: [facility] 08-08-2022 08:53-0500 Body height 172.72 cm MANAGER FIBER-C Maida Julio MANAGER FIBER Work Phone: [facility] 08-08-2022 08:53-0500 Body mass index (BMI) [Ratio] 35.2 kg/m2 MANAGER FIBER-C Maida Marcus Hook MANAGER FIBER Work Phone: [facility] 08-08-2022 08:53-0500 Body weight 104.92 kg MANAGER FIBER-C Maida Kim MANAGER FIBER Work Phone: [facility] 08-08-2022 08:27-0500 Body mass index (BMI) [Ratio] 35.2 kg/m2 MANAGER FIBER-C Maida Clinemer MANAGER FIBER Work Phone: [facility] 08-08-2022 08:27-0500 Body temperature 98 [degF] MANAGER FIBER-C Maida Kim MANAGER FIBER Work Phone: [facility] 08-08-2022 08:27-0500 Body weight 104.92 kg MANAGER FIBER-C Maida Kim MANAGER FIBER Work Phone: [facility] 08-08-2022 08:27-0500 Diastolic blood pressure 77 mm[Hg] MANAGER FIBER-C Maida Kim MANAGER FIBER Work Phone: [facility] 08-08-2022 08:27-0500 Heart rate 80 /min MANAGER FIBER-C Maida Kim MANAGER FIBER Work Phone: [facility] 08-08-2022 08:27-0500 Respiratory rate 16 /min MANAGER FIBER-C Maida Kim MANAGER FIBER Work Phone: [facility] 08-08-2022 08:27-0500 SaO2% (BldA) [Mass fraction] 97 % MANAGER FIBER-C Maida Kim MANAGER FIBER Work Phone: [facility] 08-08-2022 08:27-0500 Systolic blood pressure 120 mm[Hg] MANAGER FIBER-C Maida Kim MANAGER FIBER Work Phone: [facility] 08-01-2022 13:55-0500 Body height 172.72 cm MANAGER FIBER-C Maida Kim MANAGER FIBER Work Phone: [facility] 08-01-2022 13:54-0500 Body temperature 98.3 [degF] MANAGER FIBER-C Maida Kim MANAGER FIBER Work Phone: [facility] 08-01-2022 13:54-0500 Diastolic blood pressure 84 mm[Hg] MANAGER FIBER-C Maida Kim MANAGER FIBER Work Phone: [facility] 08-01-2022 13:54-0500 Heart rate 80 /min MANAGER FIBER-C Maida Kim MANAGER FIBER Work Phone: [facility] 08-01-2022 13:54-0500 Inhaled oxygen flow rate 0 L/min MANAGER FIBER-C Maida Kim MANAGER FIBER Work Phone: [facility] 08-01-2022 13:54-0500 Respiratory rate 16 /min MANAGER FIBER-C Maida Kim MANAGER FIBER Work Phone: [facility] 08-01-2022 13:54-0500 SaO2% (BldA) [Mass fraction] 97 % MANAGER FIBER-C Maida Kim MANAGER FIBER Work Phone: [facility] 08-01-2022 13:54-0500 Systolic blood pressure 125 mm[Hg] MANAGER FIBER-C Maida Kim MANAGER FIBER Work Phone: [facility] 07-18-2022 12:53-0500 Diastolic blood pressure 81 mm[Hg] MANAGER FIBER-C Maida Kim MANAGER FIBER Work Phone: [facility] 07-18-2022 12:53-0500 Heart rate 87 /min MANAGER FIBER-C Maida Kim MANAGER FIBER Work Phone: [facility] 07-18-2022 12:53-0500 Respiratory rate 16 /min MANAGER FIBER-C Maida Kim MANAGER FIBER Work Phone: [facility] 07-18-2022 12:53-0500 Systolic blood pressure 120 mm[Hg] MANAGER FIBER-C Maida Kim MANAGER FIBER Work Phone: [facility] 07-18-2022 08:55-0500 Body mass index (BMI) [Ratio] 35.1 kg/m2 MANAGER FIBER-C Maida Kim MANAGER FIBER Work Phone: [facility] 07-18-2022 08:55-0500 Body weight 104.78 kg MANAGER FIBER-C Maida Kim MANAGER FIBER Work Phone: [facility] 07-18-2022 08:19-0500 Body mass index (BMI) [Ratio] 35.1 kg/m2 MANAGER FIBER-C Maida Kim MANAGER FIBER Work Phone: [facility] 07-18-2022 08:19-0500 Body temperature 98.1 [degF] MANAGER FIBER-C Maida Clinemer MANAGER FIBER Work Phone: [facility] 07-18-2022 08:19-0500 Body weight 104.77 kg MANAGER FIBER-C Maida Clinemer MANAGER FIBER Work Phone: [facility] 07-18-2022 08:19-0500 Diastolic blood pressure 77 mm[Hg] MANAGER FIBER-C Maida Kim MANAGER FIBER Work Phone: [facility] 07-18-2022 08:19-0500 Heart rate 88 /min MANAGER FIBER-C Maida Kim MANAGER FIBER Work Phone: [facility] 07-18-2022 08:19-0500 Respiratory rate 17 /min MANAGER FIBER-C Maida Clinemer MANAGER FIBER Work Phone: [facility] 07-18-2022 08:19-0500 SaO2% (BldA) [Mass fraction] 98 % MANAGER FIBER-C Maida Kim MANAGER FIBER Work Phone: [facility] 07-18-2022 08:19-0500 Systolic blood pressure 129 mm[Hg] MANAGER FIBER-C Maida Kim MANAGER FIBER Work Phone: [facility] 07-11-2022 10:52-0500 Body mass index (BMI) [Ratio] 35.2 kg/m2 MANAGER FIBER-C Maida Kim MANAGER FIBER Work Phone: [facility] 07-11-2022 10:52-0500 Body temperature 98.5 [degF] MANAGER FIBER-C Maida Clinemer MANAGER FIBER Work Phone: [facility] 07-11-2022 10:52-0500 Body weight 105.23 kg MANAGER FIBER-C Maida Kim MANAGER FIBER Work Phone: [facility] 07-11-2022 10:52-0500 Diastolic blood pressure 79 mm[Hg] MANAGER FIBER-C Maida Marcus Hook MANAGER FIBER Work Phone: [facility] 07-11-2022 10:52-0500 Heart rate 90 /min MANAGER FIBER-C Maida Marcus Hook MANAGER FIBER Work Phone: [facility] 07-11-2022 10:52-0500 Respiratory rate 17 /min MANAGER FIBER-C Maida Marcus Hook MANAGER FIBER Work Phone: [facility] 07-11-2022 10:52-0500 SaO2% (BldA) [Mass fraction] 98 % MANAGER FIBER-C Maida Julio MANAGER FIBER Work Phone: [facility] 07-11-2022 10:52-0500 Systolic blood pressure 144 mm[Hg] MANAGER FIBER-C Maida Julio MANAGER FIBER Work Phone: [facility] 06-28-2022 15:04-0500 Body temperature 97.3 [degF] MANAGER FIBER-C Maida Marcus Hook MANAGER FIBER Work Phone: [facility] 06-28-2022 15:04-0500 Diastolic blood pressure 81 mm[Hg] MANAGER FIBER-C Maida Marcus Hook MANAGER FIBER Work Phone: [facility] 06-28-2022 15:04-0500 Respiratory rate 16 /min MANAGER FIBER-C Maida Julio MANAGER FIBER Work Phone: [facility] 06-28-2022 15:04-0500 SaO2% (BldA) [Mass fraction] 97 % MANAGER FIBER-C Maida Marcus Hook MANAGER FIBER Work Phone: [facility] 06-28-2022 15:04-0500 Systolic blood pressure 153 mm[Hg] MANAGER FIBER-C Maida Marcus Hook MANAGER FIBER Work Phone: [facility] 06-27-2022 16:29-0500 Body temperature 98.3 [degF] MANAGER FIBER-C Maida Julio MANAGER FIBER Work Phone: [facility] 06-27-2022 16:29-0500 Diastolic blood pressure 72 mm[Hg] MANAGER FIBER-C Maida Marcus Hook MANAGER FIBER Work Phone: [facility] 06-27-2022 16:29-0500 Heart rate 88 /min MANAGER FIBER-C Maida Kim MANAGER FIBER Work Phone: [facility] 06-27-2022 16:29-0500 Respiratory rate 16 /min MANAGER FIBER-C Maida Julio MANAGER FIBER Work Phone: [facility] 06-27-2022 16:29-0500 SaO2% (BldA) [Mass fraction] 94 % MANAGER FIBER-C Maida Kim MANAGER FIBER Work Phone: [facility] 06-27-2022 16:29-0500 Systolic blood pressure 149 mm[Hg] MANAGER FIBER-C Maida Kim MANAGER FIBER Work Phone: [facility] 06-27-2022 08:50-0500 Body height 172.72 cm MANAGER FIBER-C Maida Kim MANAGER FIBER Work Phone: [facility] 06-27-2022 08:50-0500 Body mass index (BMI) [Ratio] 35.4 kg/m2 MANAGER FIBER-C Maida Kim MANAGER FIBER Work Phone: [facility] 06-27-2022 08:50-0500 Body weight 105.82 kg MANAGER FIBER-C Maida Kim MANAGER FIBER Work Phone: [facility] 06-27-2022 08:19-0500 Body mass index (BMI) [Ratio] 35.4 kg/m2 MANAGER FIBER-C Maida Kim MANAGER FIBER Work Phone: [facility] 06-27-2022 08:19-0500 Body temperature 98.2 [degF] MANAGER FIBER-C Maida Kim MANAGER FIBER Work Phone: [facility] 06-27-2022 08:19-0500 Body weight 105.82 kg MANAGER FIBER-C Maida Kim MANAGER FIBER Work Phone: [facility] 06-27-2022 08:19-0500 Diastolic blood pressure 84 mm[Hg] MANAGER FIBER-C Maida Kim MANAGER FIBER Work Phone: [facility] 06-27-2022 08:19-0500 Heart rate 84 /min MANAGER FIBER-C Maida Kim MANAGER FIBER Work Phone: [facility] 06-27-2022 08:19-0500 Respiratory rate 16 /min MANAGER FIBER-C Maida Julio MANAGER FIBER Work Phone: [facility] 06-27-2022 08:19-0500 SaO2% (BldA) [Mass fraction] 98 % MANAGER FIBER-C Maida Kim MANAGER FIBER Work Phone: [facility] 06-27-2022 08:19-0500 Systolic blood pressure 138 mm[Hg] MANAGER FIBER-C Maida Kim MANAGER FIBER Work Phone: [facility] 06-26-2022 08:06-0500 Body mass index (BMI) [Ratio] 35.4 kg/m2 MANAGER FIBER-C Maida Kim MANAGER FIBER Work Phone: [facility] 06-26-2022 08:06-0500 Body temperature 98.3 [degF] MANAGER FIBER-C Maida Kim MANAGER FIBER Work Phone: [facility] 06-26-2022 08:06-0500 Body weight 105.8 kg MANAGER FIBER-C Maida Kim MANAGER FIBER Work Phone: [facility] 06-26-2022 08:06-0500 Diastolic blood pressure 81 mm[Hg] MANAGER FIBER-C Maida Kim MANAGER FIBER Work Phone: [facility] 06-26-2022 08:06-0500 Heart rate 91 /min MANAGER FIBER-C Maida Kim MANAGER FIBER Work Phone: [facility] 06-26-2022 08:06-0500 Respiratory rate 16 /min MANAGER FIBER-C Maida Kim MANAGER FIBER Work Phone: [facility] 06-26-2022 08:06-0500 SaO2% (BldA) [Mass fraction] 97 % MANAGER FIBER-C Maida Kim MANAGER FIBER Work Phone: [facility] 06-26-2022 08:06-0500 Systolic blood pressure 129 mm[Hg] MANAGER FIBER-C Maida Kim MANAGER FIBER Work Phone: [facility] 06-17-2022 14:07-0500 Body temperature 98.5 [degF] MANAGER FIBER-C Maida Marcus Hook MANAGER FIBER Work Phone: [facility] 06-17-2022 14:07-0500 Diastolic blood pressure 73 mm[Hg] MANAGER FIBER-C Maida Clinemer MANAGER FIBER Work Phone: [facility] 06-17-2022 14:07-0500 Heart rate 84 /min MANAGER FIBER-C Maida Julio MANAGER FIBER Work Phone: [facility] 06-17-2022 14:07-0500 Respiratory rate 16 /min MANAGER FIBER-C Maida Julio MANAGER FIBER Work Phone: [facility] 06-17-2022 14:07-0500 SaO2% (BldA) [Mass fraction] 93 % MANAGER FIBER-C Maida Kim MANAGER FIBER Work Phone: [facility] 06-17-2022 14:07-0500 Systolic blood pressure 129 mm[Hg] MANAGER FIBER-C Maida Julio MANAGER FIBER Work Phone: [facility] [facility] 06-17-2022 09:37-0500 Body height 172.72 cm MANAGER FIBER-C Maida Kim MANAGER FIBER Work Phone: [facility] Work Phone: 06-17-2022 09:37-0500 Body mass index (BMI) [Ratio] 36 kg/m2 MANAGER FIBER-C aMida Kim MANAGER FIBER Work Phone: [facility] 06-17-2022 09:37-0500 Body weight 107.5 kg MANAGER FIBER-C Maiad Kim MANAGER FIBER Work Phone: [facility] 06-13-2022 12:58-0500 Body mass index (BMI) [Ratio] 35.6 kg/m2 MANAGER FIBER-C Maida Clinemer MANAGER FIBER Work Phone: [facility] 06-13-2022 12:58-0500 Body temperature 98.5 [degF] MANAGER FIBER-C Maida Marcus Hook MANAGER FIBER Work Phone: [facility] 06-13-2022 12:58-0500 Body weight 106.19 kg MANAGER FIBER-C Maida Julio MANAGER FIBER Work Phone: [facility] 06-13-2022 12:58-0500 Diastolic blood pressure 84 mm[Hg] MANAGER FIBER-C Maida Julio MANAGER FIBER Work Phone: [facility] 06-13-2022 12:58-0500 Heart rate 98 /min MANAGER FIBER-C Maida Marcus Hook MANAGER FIBER Work Phone: [facility] 06-13-2022 12:58-0500 Respiratory rate 18 /min MANAGER FIBER-C Maida Marcus Hook MANAGER FIBER Work Phone: [facility] 06-13-2022 12:58-0500 SaO2% (BldA) [Mass fraction] 97 % MANAGER FIBER-C Maida Julio MANAGER FIBER Work Phone: [facility] 06-13-2022 12:58-0500 Systolic blood pressure 135 mm[Hg] MANAGER FIBER-C Maida Marcus Hook MANAGER FIBER Work Phone: [facility] 05-24-2022 11:47-0500 Body temperature 98 [degF] MANAGER FIBER-C Maida Julio MANAGER FIBER Work Phone: [facility] 05-24-2022 11:47-0500 Diastolic blood pressure 61 mm[Hg] MANAGER FIBER-C Maida Marcus Hook MANAGER FIBER Work Phone: [facility] 05-24-2022 11:47-0500 Heart rate 84 /min MANAGER FIBER-C Maida Marcus Hook MANAGER FIBER Work Phone: [facility] 05-24-2022 11:47-0500 Respiratory rate 16 /min MANAGER FIBER-C Maida Marcus Hook MANAGER FIBER Work Phone: [facility] 05-24-2022 11:47-0500 SaO2% (BldA) [Mass fraction] 98 % MANAGER FIBER-C Maida Marcus Hook MANAGER FIBER Work Phone: [facility] 05-24-2022 11:47-0500 Systolic blood pressure 136 mm[Hg] MANAGER FIBER-C Maida Marcus Hook MANAGER FIBER Work Phone: [facility] 05-24-2022 10:23-0500 Body height 172.72 cm MANAGER FIBER-C Maida Marcus Hook MANAGER FIBER Work Phone: [facility] Work Phone: 05-24-2022 09:24-0500 Body temperature 96.8 [degF] MANAGER FIBER-C Maida Julio MANAGER FIBER Work Phone: [facility] 05-24-2022 09:24-0500 Diastolic blood pressure 74 mm[Hg] MANAGER FIBER-C Maida Julio MANAGER FIBER Work Phone: [facility] 05-24-2022 09:24-0500 Heart rate 95 /min MANAGER FIBER-C Maida Marcus Hook MANAGER FIBER Work Phone: [facility] 05-24-2022 09:24-0500 Respiratory rate 17 /min MANAGER FIBER-C Maida Julio MANAGER FIBER Work Phone: [facility] 05-24-2022 09:24-0500 SaO2% (BldA) [Mass fraction] 97 % MANAGER FIBER-C Maida Marcus Hook MANAGER FIBER Work Phone: [facility] 05-24-2022 09:24-0500 Systolic blood pressure 114 mm[Hg] MANAGER FIBER-C Maida Julio MANAGER FIBER Work Phone: [facility] 05-23-2022 05:37-0500 Heart rate 92 /min MANAGER FIBER-C Maida Julio MANAGER FIBER Work Phone: [facility] 05-23-2022 05:37-0500 Respiratory rate 24 /min MANAGER FIBER-C Maida Marcus Hook MANAGER FIBER Work Phone: [facility] 05-23-2022 05:37-0500 SaO2% (BldA) [Mass fraction] 100 % MANAGER FIBER-C Maida Kim MANAGER FIBER Work Phone: [facility] 05-23-2022 04:45-0500 Diastolic blood pressure 66 mm[Hg] MANAGER FIBER-C Maida Julio MANAGER FIBER Work Phone: [facility] 05-23-2022 04:45-0500 Systolic blood pressure 119 mm[Hg] MANAGER FIBER-C Maida Clinemer MANAGER FIBER Work Phone: [facility] 05-23-2022 02:22-0500 Body temperature 98 [degF] MANAGER FIBER-C Maida Marcus Hook MANAGER FIBER Work Phone: [facility] 05-23-2022 02:13-0500 Body mass index (BMI) [Ratio] 37 kg/m2 MANAGER FIBER-C Maida Marcus Hook MANAGER FIBER Work Phone: [facility] 05-23-2022 02:13-0500 Body weight 113.9 kg MANAGER FIBER-C Maida Clinemer MANAGER FIBER Work Phone: [facility] 01-02-2022 10:56-0400 Body height 175.26 cm MANAGER FIBER-C Maida Julio MANAGER FIBER Work Phone: [facility] Work Phone: 01-02-2022 10:56-0400 Body weight 107.04 kg MANAGER FIBER-C Maida Julio MANAGER FIBER Work Phone: [facility] Work Phone: 12-06-2021 09:04-0400 Body mass index (BMI) [Ratio] 35.2 kg/m2 MANAGER FIBER-C Maida Julio MANAGER FIBER Work Phone: [facility] Work Phone: 12-06-2021 09:04-0400 Body weight 108.4 kg MANAGER FIBER-C Maida Ujlio MANAGER FIBER Work Phone: [facility] Work Phone: Encounters Encounter Date Encounter Type Care Provider Facility Start: 03-29-2025 [facility] Facility:[facility] Start: 03-24-2025 Encounter for genera l adult medical examination without abnormal findings Blue BERMUDEZ [facility] Start: 03-24-2025 End: 03-24-2025 ambulatory Cristóbal Ford Facility:[facility] Start: 03-23-2025 End: 03-23-2025 ambulatory Blue BERMUDEZ Facility:[facility] Start: 03-10-2025 Registered Recurring Genna Zuniga MANAGER FIBER-C -[facility] Start: 03-10-2025 End: 03-10-[address] Cristóbal Ford MD -[facility] Work Phone: Start: 03-10-2025 End: 03-10-2025 ambulatory Blue BERMUDEZ Work Phone: -[facility] Start: 2025 ambulatory Blue BERMUDEZ Facilit y:[facility] Start: 2025 Non-patient / Non-visit Dr. Bereket [facility] Start: 2025 Patient encounter procedure Genna Aleksander MANAGER FIBER-C -[facility] Services Work Phone: Start: 2025 End: 2025 ambulatory Genna Zuniga NP Facility:[facility] Start: 02-17-2025 Registered Recurring Genna Aleksander MANAGER FIBER-C -[facility] Start: 02-17-2025 End: 02-17-2025 Patient encounter procedure Genna Aleksander MANAGER FIBER-C -[facility] Work Phone: Start: 02-17-2025 End: 02-17-2025 ambulatory Blue BERMUDEZ Work Phone: -[facility] Start: 02-02-2025 End: 02-02-2025 Patient encounter procedure Blue BERMUDEZ -[facility] Work Phone: Start: 02-02-2025 End: 02-02-2025 ambulatory Blue BERMUDEZ Work Phone: -[facility] Start: 01-27-2025 End: 01-27-2025 Patient encounter procedure Genna Zuniga MANAGER FIBER-C -[facility] Work Phone: Start: 01-27-2025 End: 01-27-2025 ambulatory Blue Wayt PA Work Phone: -[facility] Start: 01-27-2025 Registered Recurring Genna Zuniga MANAGER FIBER-C -[facility] Start: 01-06-2025 End: 01-06-[address] Cristóbal Ford MD -[facility] Work Phone: Start: 01-06-2025 End: 01-06-2025 ambulatory Blue Markt PA Work Phone: [facility] Start: 01-06-2025 Registered Recurring Genna Zuniga MANAGER FIBER-C -[facility] Start: 01-04-2025 End: 01-04-2025 Patient encounter procedure SYED ABRAHAM -[facility] Work Phone: Start: 01-04-2025 End: 01-04-2025 ambulatory Blue Wayt PA Work Phone: -[facility] Start: 12-29-2024 End: 12-29-2024 Patient encounter procedure Blue BERMUDEZ -[facility] Work Phone: Start: 12-29-2024 End: 12-29-2024 ambulatory Blue Wayt PA Work Phone: -[facility] Start: 12-16-2024 Registered Recurring Genna Zuniga MANAGER FIBER-C -[facility] Start: 12-16-2024 End: 12-16-[address] Cristóbal Ford MD -[facility] Work Phone: Start: 12-16-2024 End: 12-16-2024 ambulatory Blue Alicia PA Work Phone: [facility] Start: 12-02-2024 Non-patient / Non-visit Dr. Bereket NOONAN -[facility] Start: 12-02-2024 End: 12-02-2024 ambulatory Blue Alicia PA Work Phone: -[facility] Start: 12-02-2024 End: 12-02-[address] Cristóbal Ford MD -[facility] Work Phone: Start: 12-02-2024 End: 12-02-2024 ambulatory Blue BERMUDEZ Facility:[facility] Start: 11-25-2024 End: 11-25-[address] Cristóbal Ford MD -[facility] Work Phone: Start: 11-25-2024 End: 11-25-2024 ambulatory Blue BERMUDEZ Work Phone: [facility] Work Phone: Start: 11-25-2024 Registered Recurring Genna Aleksander MANAGER FIBER-C -[facility] Start: 11-04-2024 End: 11-04-[address] Cristóbal Ford MD -[facility] Work Phone: Start: 11-04-2024 End: 11-04-2024 ambulatory Blue BERMUDEZ Facility:[facility] Start: 11-04-2024 Registered Recurring Genna Aleksander MANAGER FIBER-C -[facility] Start: 10-26-2024 End: 10-26-2024 Patient encounter procedure Dain BERMUDEZ -[facility] Work Phone: Start: 10-26-2024 End: 10-26-2024 Patient encounter procedure Dain BERMUDEZ [facility] Work Phone: Start: 10-26-2024 End: 10-26-2024 ambulatory Blue BERMUDEZ Work Phone: [facility] Work Phone: Start: 10-26-2024 End: 10-26-2024 ambulatory Blue BERMUDEZ Facility:[facility] Start: 10-14-2024 Registered Recurring Genna Aleksander MANAGER FIBER-C -[facility] Start: 10-14-2024 End: 10-14-2024 Patient encounter procedure Genna Aleksander MANAGER FIBER-C -[facility] Work Phone: Start: 10-14-2024 End: 10-14-2024 ambulatory Genna Aleksander MANAGER FIBER Facility:[facility] Start: 09-23-2024 End: 09-23-2024 Patient encounter procedure Genna Aleksander MANAGER FIBER-C -[facility] Work Phone: Start: 09-23-2024 End: 09-23-2024 ambulatory Genna Aleksander MANAGER FIBER Facility:[facility] Start: 09-17-2024 End: 09-17-2024 ambulatory Maida Julio MANAGER FIBER-C Work Phone: [facility] Work Phone: Start: 09-17-2024 End: 09-17-[address] Dain Serrano MD -[facility] Services Work Phone: Start: 09-17-2024 End: 09-17-2024 ambulatory Dain Serrano Facility:[facility] Start: 09-02-[address] Cristóbal Ford MD -[facility] Start: 09-02-2024 End: 09-02-[address] Cristóbal Ford MD -[facility] Work Phone: Start: 09-02-2024 End: 09-02-2024 ambulatory Cristóbal Ford Facility:[facility] Start: 08-31-2024 Non-patient / Non-visit Dr. Bereket NOONAN -[facility] Start: 08-31-2024 End: 08-31-2024 ambulatory Maida Kim MANAGER FIBER-C Work Phone: [facility] Work Phone: Start: 08-31-2024 End: 08-31-2024 Patient encounter procedure Genna Aleksander MANAGER FIBER-C -[facility] Work Phone: Start: 08-31-2024 End: 08-31-2024 ambulatory Genna Aleksander MANAGER FIBER Facility:[facility] Start: 08-17-2024 End: 08-17-2024 ambulatory Maida Clinemer MANAGER FIBER-C Work Phone: [facility] Work Phone: Start: 08-17-2024 End: 08-17-2024 Patient encounter procedure Carly Carrasquillo PA -Laboratory, [facility] Start: 08-17-2024 End: 08-17-2024 ambulatory Blue BERMUDEZ Facility:[facility] Start: 08-12-2024 End: 08-12-2024 ambulatory Maida Kim MANAGER FIBER-C Work Phone: [facility] Work Phone: Start: 08-12-2024 End: 08-12-[address] Dain Serrano MD -Cat Scan, [facility] Work Phone: Start: 08-12-2024 Encounter for preprocedural cardiovascular examination Dain Serrano [facility] Start: 08-12-2024 End: 08-12-[address] Cristóbal Ford MD -[facility] Work Phone: Start: 08-12-2024 End: 08-12-2024 [facility] Start: 08-12-[address] Cristóbal Ford MD -[facility] Start: 08-12-2024 End: 08-12-2024 ambulatory Dain Serrano Facility:[facility] Start: 07-22-2024 End: 07-22-2024 Patient encounter procedure Genna Zuniga NP-C -[facility] Work Phone: Start: 07-22-2024 End: 07-22-2024 ambulatory Genna Zuniga MANAGER FIBER Facility:[facility] Start: 07-22-2024 End: 07-22-2024 ambulatory Genna Zuniga MANAGER FIBER Facility:[facility] Start: 07-05-2024 End: 07-05-[address] Cristóbal Ford MD -[facility] Work Phone: Start: 07-05-2024 End: 07-05-2024 ambulatory Cristóbal Ford Facility:[facility] Start: 07-01-2024 End: 07-01-[address] Cristóbal Ford MD -[facility] Work Phone: Start: 07-01-2024 End: 07-01-2024 ambulatory Cristóbal Ford Facility:[facility] Start: 06-23-2024 End: 06-23-[address] Yvonne Hinojosa MD -[facility] Work Phone: Start: 06-23-2024 End: 06-23-2024 ambulatory Maida Kim MANAGER FIBER Facility:[facility] Start: 06-16-2024 End: 06-16-[address] Yvonne Hinojosa MD -Laboratory, Specimen Work Phone: Start: 06-16-2024 End: 06-16-[address] Yvonne Hinojosa MD -[facility] Work Phone: Start: 06-16-2024 End: 06-16-2024 ambulatory Maida Kim MANAGER FIBER Facility:[facility] Start: 06-15-2024 End: 06-15-[address] Cristóbal Ford MD -[facility] Work Phone: Start: 06-15-2024 End: 06-16-2024 ambulatory Maida Kim MANAGER FIBER Facility:[facility] Start: 06-10-2024 End: 06-10-[address] Cristóbal Ford MD -[facility] Work Phone: Start: 06-10-2024 End: 06-10-2024 ambulatory Maida Kim MANAGER FIBER Facility:[facility] Start: 05-20-2024 End: 05-20-[address] Cristóbal Ford MD -[facility] Work Phone: Start: 05-20-2024 End: 05-20-2024 ambulatory Maida Julio MANAGER FIBER Facility:[facility] Start: 05-19-2024 ambulatory Maida Kim MANAGER FIBER Facil ity:[facility] Start: 05-19-2024 Non-patient / Non-visit Dr. Bereket NOONAN -[facility] Start: 05-19-2024 End: 05-19-2024 Patient encounter procedure Genna Zuniga NP-C -Cardiovascular Services Work Phone: Start: 05-19-2024 End: 05-19-2024 ambulatory Genna Zuniga MANAGER FIBER Facility:[facility] Start: 04-29-2024 End: 04-29-2024 Patient encounter procedure Genna Zuniga MANAGER FIBER-C -[facility] Work Phone: Start: 04-29-2024 End: 04-29-2024 ambulatory Genna Zuniga MANAGER FIBER Facility:[facility] Start: 04-08-2024 End: 04-08-2024 ambulatory Maida Kim MANAGER FIBER Facility:[facility] Start: 02-24-2024 Preoperative state Maida hernandez MANAGER FIBER-C Work Phone: [facility] Start: 10-28-2023 End: 10-28-2023 ambulatory MAIDA JULIO [facility] Start: 10-28-2023 End: 10-28-2023 Postop follow up visit related to original px Gladis Rausch MD Work Phone: [facility] Comment on above: Follow-up surgery ca re (Primary Dx) Start: 10-10-2023 End: 10-10-2023 ambulatory MAIDA KIM [facility] Start: 10-10-2023 End: 10-10-2023 Subsequent hospital visit by physician Gladis Rausch MD Work Phone: [facility] Comment on above: Postmenopausal bleed ing; Polyp of corpus uteri Start: 10-09-2023 ambulatory Gladis Rausch MD Work Phone: [facility] Start: 10-03-2023 End: 10-03-2023 ambulatory MAIDACRISTIAN KIM [facility] Start: 10-03-2023 End: 10-03-2023 [facility] Start: 09-02-2023 End: 09-02-2023 ambulatory GLADIS RAUSCH [facility] Start: 09-02-2023 End: 09-02-2023 Office outpatient visit 25 minutes Gladis Rausch MD Work Phone: [facility] Comment on above: Postmenopausal bleed ing (Primary Dx); Endometrial polyp Start: 08-14-2023 Non-patient / Non-visit MANAGER FIBER-C Gael Kim NP Work Phone: [facility] Start: 08-14-2023 End: 08-14-2023 ambulatory MANAGER FIBER-Amairani Kim MANAGER FIBER Work Phone: [facility] Work Phone: Start: 08-14-2023 End: 08-14-2023 Patient encounter procedure MANAGER FIBER-Amairani Kim MANAGER FIBER [facility] Start: 08-12-2023 End: 08-12-2023 ambulatory [facility] Start: 08-12-2023 End: 08-12-2023 Office outpatient visit 15 minutes Nikko Goldberg MD Work Phone: [facility] Comment on above: Postmenopausal bleed ing (Primary Dx); Care related to current tamoxifen use; Endometrial polyp Start: 07-31-2023 Registered Recurring MANAGER FIBER-Amairani Kim MANAGER FIBER Work Phone: [facility] Start: 07-31-2023 End: 07-31-2023 Patient encounter procedure MANAGER FIBER-Amairani Kim MANAGER FIBER Work Phone: [facility] Work Phone: Start: 06-26-2023 End: 06-26-2023 Patient encounter procedure MANAGER FIBER-Amairani Kim MANAGER FIBER Work Phone: [facility] Work Phone: Start: 06-20-2023 End: 06-20-2023 Patient encounter procedure MANAGER FIBER-Amairani Kim MANAGER FIBER Work Phone: [facility] Work Phone: Start: 06-05-2023 End: 06-05-2023 Patient encounter procedure MANAGER FIBER-Amairani Kim MANAGER FIBER Work Phone: [facility] Work Phone: Start: 05-15-2023 End: 05-15-2023 Patient encounter procedure MANAGER FIBER-C Maida Julio MANAGER FIBER Work Phone: [facility] Work Phone: Start: 05-13-2023 End: 05-13-2023 ambulatory [facility] Start: 05-13-2023 End: 05-13-2023 Office outpatient visit 15 minutes Nikko Goldberg MD Work Phone: [facility] Comment on above: Postmenopausal bleed ing (Primary Dx); Care related to current tamoxifen use; History of left breast cancer Start: 04-30-2023 End: 05-01-2023 ambulatory MAIDA KIM MOLDING MACHINE OPERATOR HELPER-ATHLETICS TEACHER Facility:B Start: 04-29-2023 Non-patient / Non-visit MANAGER FIBER-C Gael Kim MANAGER FIBER Work Phone: [facility] Start: 04-29-2023 End: 04-29-2023 ambulatory MANAGER FIBER-Amairani Kim MANAGER FIBER Work Phone: [facility] Work Phone: Start: 04-29-2023 End: 04-29-2023 Patient encounter procedure MANAGER FIBER-Amairani Kim MANAGER FIBER [facility] Phone[facility] Start: 04-24-2023 End: 04-24-2023 Patient encounter procedure MANAGER FIBER-Amairani Kim MANAGER FIBER Work Phone: [facility] Work Phone: Start: 04-24-2023 Registered Recurring MANAGER FIBER-Amairani Kim MANAGER FIBER Work Phone: [facility] Start: 04-24-2023 Non-patient / Non-visit MANAGER FIBER-C Gael Kim MANAGER FIBER Work Phone: [facility] Work Phone: Start: 04-03-2023 End: 04-03-2023 Patient encounter procedure MANAGER FIBER-Amairani Kim MANAGER FIBER [facility] Work [facility]: Start: 03-27-2023 End: 03-27-2023 ambulatory MANAGER FIBER-C Maida Kim MANAGER FIBER Work Phone: [facility] Work Phone: Start: 03-27-2023 End: 03-27-2023 Patient encounter procedure MANAGER FIBER-C Maida Kim MANAGER FIBER Work Phone: [facility] Work Phone: Start: 03-13-2023 Registered Recurring MANAGER FIBER-C Kaya Kim MANAGER FIBER Work Phone: [facility] Start: 03-13-2023 End: 03-13-2023 Patient encounter procedure MANAGER FIBER-C Maida Kim MANAGER FIBER Work Phone: [facility] Work Phone: Start: 02-27-2023 End: 02-27-2023 Patient encounter procedure MANAGER FIBER-C Maida Kim MANAGER FIBER Work Phone: [facility] Work Phone: Start: 02-13-2023 End: 02-13-2023 Patient encounter procedure MANAGER FIBER-C Maida Kim MANAGER FIBER Work Phone: [facility] Work Phone: Start: 01-24-2023 Non-patient / Non-visit MANAGER FIBER-C Gael Kim MANAGER FIBER Work Phone: [facility] Start: 01-24-2023 End: 01-24-2023 ambulatory MANAGER FIBER-C Maida Kim MANAGER FIBER Work Phone: [facility] Work Phone: Start: 01-24-2023 End: 01-24-2023 Patient encounter procedure MANAGER FIBER-C Maida Kim MANAGER FIBER Work Phone: [facility]-Cardi[facility] Services Work Phone: Start: 01-23-2023 Registered Recurring MANAGER FIBER-C Kaya Kim MANAGER FIBER Work Phone: [facility] Start: 01-23-2023 End: 01-23-2023 Patient encounter procedure MANAGER FIBER-C Maida Kim MANAGER FIBER Work Phone: [facility] Work Phone: Start: 01-02-2023 End: 01-02-2023 Patient encounter procedure MANAGER FIBER-C Maida Kim MANAGER FIBER Work Phone: [facility] Work Phone: Start: 12-19-2022 End: 12-19-2022 Patient encounter procedure MANAGER FIBER-C Maida Kim MANAGER FIBER Work Phone: [facility] Work Phone: Start: 12-12-2022 End: 12-12-2022 Patient encounter procedure MANAGER FIBER-C Maida Kim MANAGER FIBER Work Phone: [facility] Work Phone: Start: 12-05-2022 End: 12-05-2022 ambulatory MANAGER FIBER-C Maida Kim MANAGER FIBER Work Phone: [facility] Work Phone: Start: 12-05-2022 End: 12-05-2022 Patient encounter procedure MANAGER FIBER-C Maida Kim MANAGER FIBER Work Phone: [facility]-Nuclear Medicine, [facility] Work Phone: Start: 11-21-2022 Registered Recurring MANAGER FIBER-C Kaya Kim MANAGER FIBER Work Phone: [facility] Start: 11-21-2022 End: 11-21-2022 Patient encounter procedure MANAGER FIBER-C Maida Kim MANAGER FIBER Work Phone: [facility] Work Phone: Start: 11-01-2022 End: 11-01-2022 Patient encounter procedure MANAGER FIBER-C Maida Kim MANAGER FIBER Work Phone: [facility] Start: 10-31-2022 Non-patient / Non-visit MANAGER FIBER-C Gael Kim MANAGER FIBER Work Phone: [facility] Start: 10-31-2022 End: 10-31-2022 ambulatory MANAGER FIBER-C Maida Kim MANAGER FIBER Work Phone: [facility] Work Phone: Start: 10-31-2022 End: 10-31-2022 Patient encounter procedure MANAGER FIBER-C Maida Kim MANAGER FIBER [facility] Phone[facility] Services Start: 10-31-2022 Registered Recurring MANAGER FIBER-C Kaya Kim MANAGER FIBER Work Phone: [facility] Start: 10-31-2022 End: 10-31-2022 Patient encounter procedure MANAGER FIBER-C Maida Kim MANAGER FIBER Work Phone: [facility] Start: 10-30-2022 End: 10-30-2022 Patient encounter procedure MANAGER FIBER-C Maida Kim MANAGER FIBER Work Phone: [facility] Start: 10-29-2022 Non-patient / Non-visit MANAGER FIBER-C Gael Kim MANAGER FIBER Work Phone: [facility] Start: 10-29-2022 End: 10-29-2022 Patient encounter procedure MANAGER FIBER-C Maida Kim MANAGER FIBER [facility] Phone[facility] Start: 10-10-2022 End: 10-10-2022 Patient encounter procedure MANAGER FIBER-C Maida Kim MANAGER FIBER Work Phone: [facility] Start: 09-30-2022 End: 09-30-2022 Patient encounter procedure MANAGER FIBER-C Maida Kim MANAGER FIBER Work Phone: [facility] Start: 09-24-2022 ambulatory MAIDA KIM Facili ty:[facility] Start: 09-24-2022 End: 09-24-2022 Office outpatient new 60 minutes Josh Mancuso MD Work Phone: [facility] On[facility] Comment on above: Infiltrating ductal carcinoma of left breast (Primary Dx); Bone lesion Start: 09-19-2022 End: 09-19-2022 Patient encounter procedure MANAGER FIBER-C Maida Kim MANAGER FIBER Work Phone: [facility] Start: 08-29-2022 End: 08-29-2022 Patient encounter procedure MANAGER FIBER-C Maida Kim MANAGER FIBER Work Phone: [facility] Start: 08-22-2022 End: 08-22-2022 ambulatory MANAGER FIBER-C Maida Kim MANAGER FIBER Work Phone: [facility] Work Phone: Start: 08-22-2022 End: 08-22-2022 Patient encounter procedure MANAGER FIBER-C Maida Kim MANAGER FIBER Work Phone: [facility] Start: 08-22-2022 Registered Recurring MANAGER FIBER-C Kaya Kim MANAGER FIBER Work Phone: [facility] Start: 08-09-2022 Registered Recurring MANAGER FIBER-C Kaya Kim MANAGER FIBER Work Phone: [facility] Start: 08-08-2022 End: 08-08-2022 ambulatory MANAGER FIBER-C Maida Kim MANAGER FIBER Work Phone: [facility] Work Phone: Start: 08-08-2022 End: 08-08-2022 Patient encounter procedure MANAGER FIBER-C Maida Kim MANAGER FIBER Work Phone: [facility], [facility] Start: 08-08-2022 End: 08-08-2022 Patient encounter procedure MANAGER FIBER-C Maida Kim MANAGER FIBER Work Phone: [facility] Start: 08-01-2022 Non-patient / Non-visit MANAGER FIBER-C Gael Kim MANAGER FIBER Work Phone: [facility] Start: 08-01-2022 End: 08-01-2022 ambulatory MANAGER FIBER-C Maida Kim MANAGER FIBER Work Phone: [facility] Work Phone: Start: 08-01-2022 End: 08-01-2022 Patient encounter procedure MANAGER FIBER-C Maida Kim MANAGER FIBER Work Phone: [facility]Cardi[facility] Services Start: 08-01-2022 Registered Recurring MANAGER FIBER-C Kaya Kim MANAGER FIBER Work Phone: [facility] Start: 08-01-2022 End: 08-01-2022 Patient encounter procedure MANAGER FIBER-C Maida Kim MANAGER FIBER Work Phone: [facility] Start: 07-18-2022 End: 07-18-2022 Patient encounter procedure MANAGER FIBER-C Maida Kim MANAGER FIBER Work Phone: [facility] Start: 07-11-2022 End: 07-11-2022 Patient encounter procedure MANAGER FIBER-C Maida Kim MANAGER FIBER Work Phone: [facility] Start: 07-10-2022 End: 07-10-2022 ambulatory MANAGER FIBER-C Maida Kim MANAGER FIBER Work Phone: [facility] Work Phone: Start: 07-10-2022 End: 07-10-2022 Patient encounter procedure MANAGER FIBER-C Maida Kim MANAGER FIBER Work Phone: [facility] Start: 06-28-2022 Registered Recurring MANAGER FIBER-C Kaya Kim MANAGER FIBER Work Phone: [facility] Start: 06-27-2022 End: 06-27-2022 Patient encounter procedure MANAGER FIBER-C Maida Kim MANAGER FIBER Work Phone: [facility] Start: 06-27-2022 Registered Recurring MANAGER FIBER-C Kaya Kim MANAGER FIBER Work Phone: [facility] Start: 06-26-2022 End: 06-26-2022 Patient encounter procedure MANAGER FIBER-C Maida Kim MANAGER FIBER Work Phone: [facility] Start: 06-21-2022 End: 06-21-2022 ambulatory MANAGER FIBER-C Maida Kim MANAGER FIBER Work Phone: [facility] Work Phone: Start: 06-21-2022 End: 06-21-2022 Patient encounter procedure MANAGER FIBER-C Maida Kim MANAGER FIBER Work Phone: [facility] Start: 06-19-2022 Registered Recurring MANAGER FIBER-C Kaya Kim MANAGER FIBER Work Phone: [facility] Start: 06-18-2022 Non-patient / Non-visit MANAGER FIBER-C Gael Kim MANAGER FIBER Work Phone: [facility] Start: 06-18-2022 End: 06-18-2022 ambulatory MANAGER FIBER-C Maida Kim MANAGER FIBER Work Phone: [facility] Work Phone: Start: 06-18-2022 End: 06-18-2022 Patient encounter procedure MANAGER FIBER-C Maida Kim MANAGER FIBER Work Phone: [facility]Cardiovascular Services Start: 06-18-2022 End: 06-18-2022 Patient encounter procedure MANAGER FIBER-C Maida Kim MANAGER FIBER Work Phone: [facility] Start: 06-17-2022 End: 06-17-2022 ambulatory MANAGER FIBER-C Maida Kim MANAGER FIBER Work Phone: [facility] Work Phone: Start: 06-17-2022 End: 06-17-2022 Patient encounter procedure MANAGER FIBER-C Maida Kim MANAGER FIBER Work Phone: [facility] Start: 06-17-2022 Non-patient / Non-visit MANAGER FIBER-C Gael Kim MANAGER FIBER Work Phone: [facility] Start: 06-17-2022 End: 06-17-2022 Admission to same day surgery center MANAGER FIBER-C Maida Kim MANAGER FIBER [facility] Phone[facility] Start: 06-17-2022 End: 06-17-2022 ambulatory MANAGER FIBER-C Maida Kim MANAGER FIBER Work Phone: [facility] Work Phone: Start: 06-14-2022 End: 06-14-2022 ambulatory MANAGER FIBER-C Maida Kim MANAGER FIBER Work Phone: [facility] Work Phone: Start: 06-14-2022 End: 06-14-2022 Patient encounter procedure MANAGER FIBER-C Maida Kim MANAGER FIBER Work Phone: [facility] Start: 06-13-2022 End: 06-13-2022 ambulatory MANAGER FIBER-C Maida Kim MANAGER FIBER Work Phone: [facility] Work Phone: Start: 06-13-2022 End: 06-13-2022 Patient encounter procedure MANAGER FIBER-Amairani Kim MANAGER FIBER Work Phone: [facility]-Laboratory, Specimen Start: 06-13-2022 End: 06-13-2022 Patient encounter procedure MANAGER FIBER-Amairani Kim MANAGER FIBER Work Phone: [facility] Start: 06-13-2022 Registered Recurring MANAGER FIBER-Amairani Kim MANAGER FIBER Work Phone: [facility] Start: 06-13-2022 End: 06-13-2022 Patient encounter procedure MANAGER FIBER-C Maida Kim MANAGER FIBER Work Phone: [facility] Start: 06-12-2022 End: 06-12-2022 Patient encounter procedure MANAGER FIBER-C Maida Kim MANAGER FIBER Work Phone: [facility] Start: 06-07-2022 End: 06-12-2022 ambulatory LISA LYN DO Facility:B Start: 06-07-2022 End: 06-11-2022 Outreach Lab LISA LYN DO [facility] Start: 06-06-2022 End: 06-06-2022 Patient encounter procedure MANAGER FIBER-C Maida Kim MANAGER FIBER Work Phone: [facility]Laboratory, Specimen Start: 06-06-2022 End: 06-06-2022 Patient encounter procedure MANAGER FIBER-C Maida Kim MANAGER FIBER Work Phone: [facility] Start: 05-27-2022 End: 05-27-2022 Patient encounter procedure MANAGER FIBER-C Maida Kim MANAGER FIBER Work Phone: [facility] Start: 05-24-2022 End: 05-24-2022 ambulatory MANAGER FIBER-C Maida Kim MANAGER FIBER Work Phone: [facility] Work Phone: Start: 05-24-2022 End: 05-24-2022 Patient encounter procedure MANAGER FIBER-C Maida Kim MANAGER FIBER Work Phone: [facility] Start: 05-23-2022 End: 05-23-2022 Emergency department patient visit MANAGER FIBER-C Maida Kim MANAGER FIBER Work Phone: [facility]Emergency Department Start: 05-10-2022 End: 05-10-2022 ambulatory MANAGER FIBER-C Maida Kim MANAGER FIBER Work Phone: [facility] Work Phone: Start: 05-10-2022 End: 05-10-2022 Patient encounter procedure MANAGER FIBER-C Maida Kim MANAGER FIBER Work Phone: [facility]-Outpatient Pavilion Ultrasound Start: 05-07-2022 End: 05-07-2022 ambulatory MANAGER FIBER-C Maida Kim MANAGER FIBER Work Phone: [facility] Work Phone: Start: 05-07-2022 End: 05-07-2022 Patient encounter procedure MANAGER FIBER-C Maida Kim MANAGER FIBER Work Phone: [facility]-Outpatient Breast Imaging Start: 04-08-2022 End: 04-08-2022 Patient encounter procedure MANAGER FIBER-C Maida Kim MANAGER FIBER Work Phone: [facility] Start: 02-08-2022 End: 02-08-2022 Patient encounter procedure MANAGER FIBER-C Maida Kim MANAGER FIBER Work Phone: [facility] Start: 02-01-2022 End: 02-01-2022 ambulatory MANAGER FIBER-C Maida Kim MANAGER FIBER Work Phone: [facility] Work Phone: Start: 02-01-2022 End: 02-01-2022 Patient encounter procedure MANAGER FIBER-C Maida Kim MANAGER FIBER Work Phone: [facility]-MRI - [facility] Start: 01-17-2022 End: 01-17-2022 Patient encounter procedure MANAGER FIBER-C Maida Kim MANAGER FIBER Work Phone: [facility] Start: 01-02-2022 End: 01-06-2022 Discharged Recurring MANAGER FIBER-C Maida Kim MANAGER FIBER Work Phone: [facility]Nutritional Services Start: 12-06-2021 End: 12-06-2021 Patient encounter procedure MANAGER FIBER-C Maida Kim MANAGER FIBER Work Phone: [facility] Start: 10-22-2021 End: 10-22-2021 Patient encounter procedure MANAGER FIBER-C Maida Kim MANAGER FIBER Work Phone: [facility] Start: 04-17-2021 End: 04-17-2021 Patient encounter procedure MAIDA KIM MOLDING MACHINE OPERATOR HELPER-ATHLETICS TEACHER [facility] Start: 04-09-2017 End: 04-10-2017 Ambulatory CAROLINA (ATHLETICS TEACHER) BALBIR [facility] Procedures Date Procedure Procedure Detail Performing Clinician Start: 03-10-2025 Estimated creatinine clearance Blue Henderson ayt PA Work Phone: Start: 01-27-2025 Estimated creatinine clearance Blue Henderson ayt PA Work Phone: Start: 01-06-2025 Estimated creatinine clearance Blue Henderson ayt PA Work Phone: Start: 12-07-2024 PET study for localization of tumor Blue Alicia PA Work Phone: Start: 11-25-2024 Estimated creatinine clearance Blue Henderson ayt PA Work Phone: Start: 11-04-2024 Estimated creatinine clearance Blue Henderson ayt PA Work Phone: Start: 10-26-2024 Urine culture Blue Wayseth PA Work Phone: Start: 10-14-2024 Procedure Blue Markseth PA Work Phone: Start: 09-23-2024 Estimated creatinine clearance Blue Henderson ayt PA Work Phone: Start: 08-12-2024 MRI of lower extremity Maida Clinemer MANAGER FIBER -C Work Phone: Start: 07-22-2024 Ultrasonography of breast Maida Clinemer MANAGER FIBER-C Work Phone: Start: 07-05-2024 Ultrasonography of breast Maida Clinemer MANAGER FIBER-C Work Phone: Start: 07-01-2024 Carcinoembryonic antigen cea Maida Cline mary MANAGER FIBER-C Work Phone: Comment on above: Nonsmokers <3.9 Smokers <5.6Roche [employer] Electrochemiluminescence Immunoassay(ECLIA)Values obtained with different assay methods or kitscannot be used interchangeably. Results cannot beinterpreted as absolute evidence of the presence orabsence of malignant disease. 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 Work Phone: Start: 07-15-[address] of whole body MANAGER FIBER-C Maida Julio MANAGER FIBER Work Phone: Start: 03-27-2023 CT of chest and abdomen MANAGER FIBER-C Maida Son mary MANAGER FIBER Work Phone: Start: 12-17-2022 PET study for localization of tumor MANAGER FIBER-C Maida Marcus Hook MANAGER FIBER Work Phone: Start: 12-05-2022 Radionuclide whole body bone study MANAGER FIBER-C Maida Clinemer MANAGER FIBER Work Phone: Start: 10-31-2022 Trichomonas screening test Blue BERMUDEZ Work Phone: Start: 10-29-2022 Plain chest X-ray MANAGER FIBER-C Maida Clinemer MANAGER FIBER Work Phone: Start: 08-22-2022 CT of chest and abdomen MANAGER FIBER-C Maida Wit mary MANAGER FIBER Work Phone: Start: 08-08-2022 Plain chest X-ray MANAGER FIBER-C Maida Marcus Hook MANAGER FIBER Work Phone: Start: 07-10-2022 MRI of brain with contrast MANAGER FIBER-C Maida Julio MANAGER FIBER Work Phone: Start: 06-21-2022 Radionuclide whole body bone study MANAGER FIBER-C Maida Kim MANAGER FIBER Work Phone: Start: 06-19-2022 Positron emission tomography with computed tomography MANAGER FIBER-C Maida Kim MANAGER FIBER Work Phone: Start: 06-17-2022 CT of chest and abdomen MANAGER FIBER-C Maida hernandez MANAGER FIBER Work Phone: Start: 06-17-2022 Plain chest X-ray MANAGER FIBER-C Maida Kim MANAGER FIBER Work Phone: Start: 06-17-2022 Implantation to cardiovascular system MANAGER FIBER-C Maida Kim MANAGER FIBER Work Phone: Start: 06-17-2022 Fluoroscopic guidance MANAGER FIBER-C Maida Conway r MANAGER FIBER Work Phone: Start: 06-14-2022 MRI of bilateral breasts with contrast MANAGER FIBER-C Maida Kim MANAGER FIBER Work Phone: Start: 06-06-2022 OUTSIDE PATHOLOGY REPORTS Other Other Start: 05-10-2022 Ultrasonography of breast MANAGER FIBER-C Maida jurado MANAGER FIBER Work Phone: Start: 05-07-2022 End: 05-07-2022 Screening mammography MANAGER FIBER-C Maida Conway r MANAGER FIBER Work Phone: Start: 02-01-2022 MRI of joint of lower extremity MANAGER FIBER-C Katlyn Kim MANAGER FIBER Work Phone: Start: 01-17-2022 Radiologic examination of knee MANAGER FIBER-C Kaya Kim MANAGER FIBER Work Phone: Start: 05-14-2021 Microscopic observation [Identifier] in Cervix by Cyto stain Nikko Giraldo MD Work Phone: Start: 02-27-2018 Specimen from breast obtained by biopsy (specimen) MAIDA KIM MOLDING MACHINE OPERATOR HELPER-ATHLETICS TEACHER Comment on above: right Start: 04-07-2017 Structure of right knee (body structure) MAIDA KIM MOLDING MACHINE OPERATOR HELPER-ATHLETICS TEACHER Comment on above: stress fracture and torn meniscus Anaerobic microbial culture MANAGER FIBER-C Maida Kim MANAGER FIBER Work Phone: Anaerobic microbial culture MANAGER FIBER-C Maida Kim MANAGER FIBER Work Phone: Investigation of tra nsfusion reaction MANAGER FIBER-C Maida Kim MANAGER FIBER Work Phone: Investigation of tra nsfusion reaction MANAGER FIBER-C Maida Kim MANAGER FIBER Work Phone: Microbial culture, routine N P-C Maida Kim MANAGER FIBER Work Phone: Microbial culture, routine N P-C Maida Kim MANAGER FIBER Work Phone: Plan of Treatment Date Care Activity Detail Author Start: 2029 RSV Immunization aged 60 or older (1 - 1-dose 60+ series) RSV Immunization aged 60 or older (1 - 1-dose 60+ series) [facility] Start: 05-14-2026 Screening for malignant neoplasm of cervix [facility] Start: 03-10-2025 Cancer Ag 15-3 [Presence] in Serum or Plasma [facility] Start: 03-10-2025 Cancer Ag 27-29 [Presence] in Serum or Plasma [facility] Start: 03-10-2025 Carcinoembryonic Ag [Mass/volume] in Serum or Plasma [facility] Start: 03-10-2025 CBC W Auto Differential panel - Blood [facility] Start: 03-10-2025 [facility] Start: 02-02-2025 Thyroid stimulating hormone measurement [facility] Start: 01-27-2025 [facility] Start: 01-06-2025 Cancer Ag 125 [Units/volume] in Serum or Plasma [facility] Start: 01-06-2025 Cancer Ag 15-3 [Presence] in Serum or Plasma [facility] Start: 01-06-2025 Cancer Ag 27-29 [Presence] in Serum or Plasma [facility] Start: 01-06-2025 Carcinoembryonic Ag [Mass/volume] in Serum or Plasma [facility] Start: 12-07-2024 PET study for localization of tumor PET/CT Tumor Base -Thigh Subs [facility] Start: 11-25-2024 Cancer Ag 15-3 [Presence] in Serum or Plasma [facility] Start: 11-25-2024 Cancer Ag 27-29 [Presence] in Serum or Plasma [facility] Start: 11-25-2024 [facility] Start: 07-22-2024 Us breast uni real time with image limited ULTRASOUND BREAST LIMITED [facility] Start: 06-15-2024 Patient referral [facility] Work Phone: Start: 05-14-2024 Screening for malignant neoplasm of cervix Pap Smear [facility] Start: 02-08-2024 Influenza vaccination Influenza Vaccine (Season Ended) [facility] Start: 10-28-2023 End: 10-28-2023 Patient encounter procedure 10/28/2023 3:45 PM EDT Office Visit [facility] [address] [place], [place] [id number] Gladis Rausch MD [address] [place] [phone] [facility] Start: 10-10-2023 End: 10-10-2023 Admission to same day surgery center 10/10/2023 11:00 AM EDT - 10/10/2023 12:00 PM EDT Surgery [facility] MAIN OR [address] [facility] [place] [address] Gladis Rausch MD [address] [place] [phone] HYSTEROSCOPY DILATION AND CURETTAGE, POLYPECTOMY [88641 (CPT )] [facility] Comment on above: HYSTEROSCOPY DILATION AND CURETTAGE, CHUCKY YPECTOMY [58611 (CPT )] Start: 10-10-2023 End: 10-10-2023 Anesthesia consultation 10/10/2023 11:00 AM EDT Anesthesia Event [facility] [address] [facility] [place] [address] Alyssa Morales, MOLDING MACHINE OPERATOR HELPER - ATHLETICS TEACHER [address] [place] [address] [facility] Start: 10-10-2023 End: 10-10-2023 Hysteroscopy bx endometrium&/polypc w/wo d&c HYSTEROSCOPY BIOPSY ENDOMETRIUM AND OR POLYPECTOMY Postmenopausal bleeding Polyp of corpus uteri 10/10/2023 11:00 AM EDT [facility] Operating Room Start: 10-10-2023 Subsequent hospital visit by physician 10/10/2023 11:00 AM EDT Hospital Encounter [facility] [address] [facility] [place] [phone] Gladis Rausch MD [address] [place] [phone] [facility] Start: 09-02-2023 End: 09-02-2023 Patient encounter procedure 09/02/2023 4:15 PM EDT Consult [facility] [address] [place] [address] Gladis Rausch MD [address] [place] [phone] [facility] Start: 06-18-2023 End: 06-18-2023 Telemedicine consultation with patient 06/18/2023 4:00 PM EST Telemedicine [facility] [address] [place] [address] Nikko Goldberg MD [address], [address] [place] [address] [facility] Start: 06-17-2023 End: 06-17-2023 Patient encounter procedure 06/17/2023 3:15 PM EST Procedure Visit [facility] [address] [place] [phone] Phu Forte MD [address] [place] [phone] [facility] Start: 06-17-2023 End: 06-17-2023 Professional / ancillary services management 06/17/2023 2:45 PM EST Ancillary Procedure [facility] [address] [place] [address] [facility] Start: 05-13-2023 End: 05-13-2024 US.doppler Pelvis vessels US pelvis hysterosonography doppler Imaging Routine Postmenopausal bleeding Expected: 05/13/2023, Expires: 05/13/2024 [facility] Work Phone: Comment on above: Expected: 05/13/2023, Expires: Start: 05-07-2023 Screening for malignant neoplasm of breast Mammogram [facility] Start: 03-27-2023 Venous catheter care management [facility] Start: 02-07-2023 COVID-19 Vaccine ( season) COVID-19 Vaccine () [facility] Start: 02-07-2023 Influenza vaccination [facility] Start: 12-05-2022 Venous catheter care management [facility] Start: 11-05-2022 End: 11-05-2022 ambulatory 11/05/2022 Infusion Visit Chemotherapy Josh Mancuso MD [address], [address] [place] [address] [facility] Start: 11-05-2022 End: 11-05-2022 Clinical Support Encounter [facility] Start: 10-15-2022 End: 10-15-2022 Clinical Support Encounter [facility] Start: 09-24-2022 End: 09-25-2023 CT Abdomen and Pelvis W contrast IV CT ABDOMEN/PELVIS WITH CONTRAST Imaging Routine Infiltrating ductal carcinoma of left breast Bone lesion Expected: 09/24/2022, Expires: 09/25/2023 [facility] Comment on above: Expected: 09/24/2022, Expires: Start: 09-24-2022 End: 09-25-2023 CT Chest W contrast IV CT CHEST WITH CONTRAST Imaging Routine Infiltrating ductal carcinoma of left breast Bone lesion Expected: 09/24/2022, Expires: 09/25/2023 [facility] Work Phone: Comment on above: Expected: 09/24/2022, Expires: 4 Start: 09-24-2022 End: 09-25-2023 NM Whole body Bone Views NUC BONE SCAN WHOLE BODY Imaging Routine Infiltrating ductal carcinoma of left breast Bone lesion Expected: 09/24/2022, Expires: 09/25/2023 [facility] Comment on above: Expected: 09/24/2022, Expires: Start: 08-22-2022 Venous catheter care management [facility] Start: 07-10-2022 Venous catheter care management [facility] Start: 06-27-2022 Venous catheter care management [facility] Start: 06-27-2022 Cancer Ag 15-3 [Presence] in Serum or Plasma [facility] Start: 06-27-2022 Cancer Ag 27-29 [Presence] in Serum or Plasma [facility] Start: 06-27-2022 Carcinoembryonic Ag [Mass/volume] in Serum or Plasma [facility] Start: 06-19-2022 Positron emission tomography with computed tomography [facility] Work Phone: Start: 06-17-2022 Anesthesia access central venous circulation ANESTH VASCULAR ACCESS [facility] Start: 06-17-2022 Insj tunneled ctr vad w/subq port age 4 yr/> INSERT TUNNELED CV CATH [facility] Start: 06-17-2022 Patient discharge [facility] Start: 06-13-2022 Patient referral [facility] Work Phone: Start: 06-12-2022 Patient referral [facility] Work Phone: Start: 05-24-2022 [facility] Work Phone: Start: 05-24-2022 Therapeutic prophylactic/dx injection subq/im THER/PROPH/DIAG INJ SC/IM [facility] Start: 05-07-2022 MG Breast - bilateral Screening [facility] Work Phone: Start: 05-07-2022 Screening mammography SCRN MAMM (CAD)W/JOHNNY BILAT [facility] Work Phone: Start: 2019 Zoster vaccine hzv live for subcutaneous use ZOSTER (SHINGLES) VACCINE (1 of 2) [facility] Start: 2019 Zoster Vaccines (1 of 2) Zoster Vaccines (1 of 2) [facility] Start: 2014 Screening for malignant neoplasm of colon COLORECTAL CANCER SCREENING DISCUSSION [facility] Start: 2009 Lipid panel LIPID SCREENING [facility] Start: 2009 Screening for malignant neoplasm of breast MAMMOGRAM SCREENING DISCUSSION [facility] Start: 1990 Screening for malignant neoplasm of cervix CERVICAL CANCER SCREENING DISCUSSION [facility] Start: 1988 DTaP/Tdap/Td Vaccines (1 - Tdap) DTaP/Tdap/Td Vaccines (1 - Tdap) [facility] Start: 1988 Hepatitis B Vaccines (1 of 3 - 19+ 3-dose series) Hepatitis B Vaccines (1 of 3 - 19+ 3-dose series) [facility] Start: 1988 Third diphtheria, tetanus and acellular pertussis (DTaP) vaccination TDAP (ADULT) [facility] Start: 1987 Diabetes mellitus screening Diabetes Screening [facility] Start: 1987 Hepatitis C screening Hepatitis C Screening [facility] Start: 1984 HIV screening HIV SCREENING DISCUSSION [facility] Start: 1981 Depression Screening Depression Screening [facility] Start: 1970 MMR Vaccines (1 of 1 - Standard series) MMR Vaccines (1 of 1 - Standard series) [facility] Start: 1969 COVID-19 VACCINE (#1) COVID-19 VACCINE (#1) [facility] Start: 1969 Hepatitis B Vaccines (1 of 3 - 3-dose series) Hepatitis B Vaccines (1 of 3 - 3-dose series) [facility] Start: 1969 Hepatitis C screening HEPATITIS C VIRUS SCREENING [facility] Start: 1969 HIV screening HIV Screening [facility] Start: 1969 Lipid panel Lipid Panel [facility] Start: 1969 Potassium [Moles/volume] in Serum or Plasma POTASSIUM [facility] Start: 1969 Screening for malignant neoplasm of colon [facility] Start: 1969 Tetanus vaccination TETANUS [facility] Anaerobic microbial culture Anaerobic Culture [facility] Work Phone: Blood chemistry [facility] Cancer Ag 125 [Units/volume] in Serum or Plasma [facility] Cancer Ag 15-3 [Presence] in Serum or Plasma [facility] Cancer Ag 15-3 [Presence] in Serum or Plasma [facility] Cancer Ag 15-3 [Presence] in Serum or Plasma [facility] Cancer Ag 15-3 [Presence] in Serum or Plasma [facility] Cancer Ag 15-3 [Presence] in Serum or Plasma [facility] Cancer Ag 15-3 [Presence] in Serum or Plasma [facility] Cancer Ag 15-3 [Presence] in Serum or Plasma [facility] Cancer Ag 27-29 [Presence] in Serum or Plasma [facility] Cancer Ag 27-29 [Presence] in Serum or Plasma [facility] Cancer Ag 27-29 [Presence] in Serum or Plasma [facility] Cancer Ag 27-29 [Presence] in Serum or Plasma [facility] Cancer Ag 27-29 [Presence] in Serum or Plasma [facility] Cancer Ag 27-29 [Presence] in Serum or Plasma [facility] Cancer Ag 27-29 [Presence] in Serum or Plasma [facility] Carcinoembryonic Ag [Mass/volume] in Serum or Plasma [facility] Carcinoembryonic Ag [Mass/volume] in Serum or Plasma [facility] Carcinoembryonic Ag [Mass/volume] in Serum or Plasma [facility] Carcinoembryonic Ag [Mass/volume] in Serum or Plasma [facility] Carcinoembryonic Ag [Mass/volume] in Serum or Plasma [facility] CBC W Auto Different ial panel - Blood [facility] CBC W Auto Different ial panel - Blood [facility] CBC W Auto Different ial panel - Blood [facility] CBC W Auto Different ial panel - Blood [facility] CBC W Auto Different ial panel - Blood [facility] CBC W Auto Different ial panel - Blood [facility] metabo lic 1999 panel - Serum or Plasma [facility] Comprehensive metabo lic 1999 panel - Serum or Plasma [facility] CT Abdomen and Pelvi s W contrast IV [facility] Work Phone: CT Abdomen and Pelvi s W contrast IV [facility] Lactate dehydrogenas e measurement [facility] Lactate dehydrogenas e measurement [facility] Lactate dehydrogenas e measurement [facility] Lactate dehydrogenas e measurement [facility] Lactate dehydrogenas e measurement [facility] Measurement of occul t blood in stool specimen using immunoassay [facility] MR Brain WO and W contrast IV [facility] NM Whole body Bone Views [facility] Work Phone: Patient Education ED Chest Pain, Noncardiac ED Hypertension, To Be Confirmed [facility] Work Phone: Patient referral [facility] Work Phone: PET CT of whole body [facility] Positron emission tomography with computed tomography [facility] Work Phone: Positron emission tomography with computed tomography [facility] PT Unspecified body region [facility] Tissue exam [facility] [employer] Work Phone: Comment on above: Release Upon Ordering for 1 Occurrences starting 10/10/2023 [facility] Work Phone: [facility] Payers Date Payer Category Payer Self-pay [id number] 2022 Unknown 0 [id number] 2020 Unknown [id number] 2016 Unknown [id number] 2016 Unknown [id number] 1969 Unknown [id number] 2.16. 840.1.464944.3.579.2.594 1969 Unknown [id number] 2.16.8 40.1.117454.3.579.2.627 1969 Unknown [id number] 2.16.8 40.1.783301.3.579.2.627 Unknown [facility] [employer] .. [id number] Unknown [id number] 2.16.8 40.1.744477.3.579.2.462 Unknown [id number] 2.16.8 40.1.857411.3.579.2.462 Unknown [id number] 2.16.8 40.1.661735.3.579.2.462 Unknown [id number] 2.16.8 40.1.586133.3.579.2.462 Unknown [id number] 2.16.8 40.1.813011.3.579.2.462 Unknown [id number] 2.16.8 40.1.834550.3.579.2.462 Unknown [id number] 2.16.8 40.1.497262.3.579.2.462 Unknown [id number] 2.16.8 40.1.183369.3.579.2.462 Unknown [id number] 2.16.8 40.1.549516.3.579.2.462 Unknown [id number] 2.16.8 40.1.805317.3.579.2.462 Unknown [id number] 2.16.8 40.1.237378.3.579.2.462 Unknown [id number] 2.16.8 40.1.881530.3.579.2.462 Unknown [id number] 2.16.8 40.1.659239.3.579.2.462 Unknown [id number] 2.16.8 40.1.937392.3.579.2.462 Unknown [id number] 2.16.8 40.1.019452.3.579.2.462 Unknown [id number] 2.16.8 40.1.440852.3.579.2.462 Unknown [id number] 2.16.8 40.1.317084.3.579.2.462 Unknown [id number] 2.16.8 40.1.934741.3.579.2.462 Unknown [id number] 2.16.8 40.1.018172.3.579.2.462 Unknown [id number] 2.16.8 40.1.437057.3.579.2.462 Unknown [id number] 2.16.8 40.1.022404.3.579.2.462 Unknown [id number] 2.16.8 40.1.656613.3.579.2.462 Unknown [id number] 2.16.8 40.1.518076.3.579.2.462 Unknown [id number] 2.16.8 40.1.963353.3.579.2.462 Unknown [id number] 2.16.8 40.1.564712.3.579.2.462 Unknown [id number] 2.16.8 40.1.617294.3.579.2.462 Unknown [id number] 2.16.8 40.1.339376.3.579.2.462 Unknown [id number] 2.16.8 40.1.112485.3.579.2.462 Unknown [id number] 2.16.8 40.1.624446.3.579.2.462 Unknown [id number] 2.16.8 40.1.049871.3.579.2.462 Unknown [id number] 2.16.8 40.1.386476.3.579.2.462 Unknown [id number] 2.16.8 40.1.338097.3.579.2.462 Unknown [id number] 2.16.8 40.1.217853.3.579.2.462 Unknown [id number] 2.16.8 40.1.558450.3.579.2.462 Unknown [id number] 2.16.8 40.1.329022.3.579.2.462 Unknown [id number] 2.16.8 40.1.428557.3.579.2.462 Unknown [id number] 2.16.8 40.1.395303.3.579.2.462 Unknown [id number] 2.16.8 40.1.631325.3.579.2.462 Unknown [id number] 2.16.8 40.1.646545.3.579.2.462 Unknown [id number] 2.16.8 40.1.485482.3.579.2.462 Unknown [id number] 2.16.8 40.1.708775.3.579.2.462 Unknown [id number] 2.16.8 40.1.172280.3.579.2.462 Unknown [id number] 2.16.8 40.1.094640.3.579.2.462 Unknown [id number] 2.16.8 40.1.441288.3.579.2.462 Social History Date Type Detail Facility Start: 05-11-2019 End: 01-09-2024 Never smoked tobacco (finding) [facility] Start: 1970 Sex Assigned At Female [facility] Start: 12-06-2021 End: 06-20-2023 Tobacco smoking status NHIS Unknown if ever smoked [facility] Start: 09-24-2022 Tobacco use and exposure Smokeless tobacco non-user [facility] Start: 09-24-2022 End: 10-28-2023 Alcohol intake Current drinker of alcohol (finding) [facility] Start: 09-24-2022 Education 15 [facility] Start: 09-24-2022 Alcohol Comment Occasionally [facility] Start: 1970 Sex Assigned At Not on file [facility] Start: 05-13-2023 End: 10-28-2023 History of Social function [facility] Start: 05-13-2023 End: 10-28-2023 Tobacco use panel [facility] Start: 10-03-2023 Alcohol Comment occasional [facility] Start: 08-24-2024 End: 09-20-2024 Sex Female (finding) [facility] NEGATED: Highlighted row [facility] Medical Equipment Procedure Code Equipment Code Equipment Origin al Text Equipment Identifier Dates Insertion, vascular access port ([id number]) Vascular port/catheter ([id number] FDA Start: 06-17-2022 Goals Date Patient Goal Desired Activity /State Mental Status Date Assessment Result Facility 06-17-2022 Cognitive function Voice/Name [facility] Work Phone: 05-24-2022 Cognitive function Voice/Name [facility] Work Phone: 05-23-2022 Cognitive function Voice/Name [facility] Work Phone: Clinical Notes 04-17-2021 to 02-17-2025 Note Date & Type Note Facility 02-17-2025 Progress note [facility] 02-17-2025 Progress note Note Date/Time February 17, 2025 12:23pm [facility] [place] [address] OFFICE VISIT Date of Service: 02/17/25 1135 MR#: [id number] Acct: [id number] Name: LISSETT RUSSELL Rep #: [id number] : 1970 From: Genna Vick ch MANAGER FIBER MANAGER FIBER-C Age/Sex: 54/F [facility] Status: Signed HPI Subjective Date of Service 02/17/25 Chief Complaint F/u for L breast Cancer. History of Present Illness 54 year-old woman had a screening mammogram on 05/07/2022 which showed abnormal left breast. She had left breast ultrasound on 05/10/2022 which showed irregulardensity at 1 o'clock and 2:00 position of the left breast. She was seen by Dr. Wolfe on 05/24/2022 with severe redness of the left breast so she was given IV Rocephin and then oral Augmentin. Needle aspiration for culture was negative. She was seen on 06/06/2022 the erythema of the left breast had improved. She had core biopsy done of 2 nodules in the left breast done. Pathology on 06/06/2022 showed invasive ductal carcinoma at the 2:00 and 1:00 positions. ER positive greater than 95%, FL +10% HER2 3+, Ki-67 +50%. She was seen on 06/12/2022 with improvement in the redness of the left breast by but was still edematous. She was referred for further evaluation and management. The redness of the L breast has improved, just limited to the area close to the nipple. L breast skin punch biopsy on 06/17/2022 showed angiolymphatic invasion by carcinoma. L axillary node core biopsy on 06/18/2022 showed metastatic carcinoma. Bone scan on 06/21/2022 showed activity in L frontal skull, bilateralanterior and posterior ribs, L posterior ilium, L acetabulum, L proximal/mid femur. PET/CT on 06/19/2022 showed hypermetabolic activities in L breast, L axilla, ribs, multiple vertebrae, L femur. Echocardiogram done on 06/18/2022 showed EF 65%. Port was placed on 06/17/2022. 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 06/06/22 [facility] IHC shows PDL1 <1%/negative. NGS testing tumor mutational burden low, MSI negative, + ERBB2 amplification, otherwise no clinically relevant mutations identified. Began chemotherapy and monoclonal antibody therapy-TCHP C1 on 06/27/2022. ctDNA on 06/27/2022 was 50 positive. [facility] negative for BRCA1 and BRCA2. CT on 08/22/2022showed persistent bony metastases, resolution of axillary nodes. Met with Dr. Mancuso on 09/25/22 for second opinion.? After discussion, they elect to continue receiving treatment in [place] locally but patient did discontinue tamoxifen at this time as recommended by Dr. Mancuso.? Got C6TCHP on 10/10/2022, restarted Tamoxifen. Started Maintenance Perjeta and Herceptin analogue on 10/31/2022. Bone scan obtained 12/05/22 showed persistent uptake in the left frontal calvarium and right scapula consistent with skeletal metastaticdisease, interim resolution of prior defined abnormalities in the bilateral acetabular, right-left upper posterior ribs, left sacroiliac joint aright posterior 12th ribs and lumbar vertebra. PET scan obtained 12/17/22 shows absence of neoplastic disease, with interim resolution of the prior defined leftbreast, left axillary as well as osseous skeletal hypermetabolic foci. ctDNA on 04/24/2023 was 0. PET/CT on 07/15/2023 showed no activity. Was found to have increasing tumor markers, PET/CT performed on 01/06/24 negative. Echocardiogram on 02/10/2024 showed EF 65%. Held tamoxifen the day of right knee replacement, 03/11/24 through 03/19/24 while on anticoagulation. Got Perjeta and Herceptin analogue C34 on 06/10/2023. Developed reddish rash on the L breast and L side of trunk, had fever yesterday was given antibiotics, biopsy on skin on 06/16/2024 showed Perivascular and periadnexal dermal acute and chronic inflammation. June 15, 2024 PET/CT demonstrates hypermetabolic activity in the right axilla and left inguinal regions fulfill quantitative criteria for neoplastic transformation, diffuse increased uptake noted in the left anterior chest wall, superficial in presentation fulfills quantitative criteria for viable neoplasm. Overall, compared to the prior FDG PET study dated 01/06/24, there is apparent interim metabolic progression of defined viable neoplastic disease. PET/CT on 12/07/2024 was negative. Interval History The patient is presenting to clinic for an evaluation anticipating she will begin c 46 trastuzumab/pertuzumab. Confirms good tolerance and good adherence to tamoxifen at this time. Does not require refill. Specifically denies headaches, dizziness, CP, palpitations, cough, SOB, abd pain, N/V/D, vaginal bleeding. [facility] Medical History HER2-positive carcinoma of breast Abnormal [...] do you feel safe at home: Yes ROS ROS Narrative Negative except as documented in the interval HPI Intake Vital Signs 01/06/25 11:37 02/02/25 11:45 02/17/25 11:37 Height 5 ft 8 in 5 ft 8 in 5 ft 8 in Weight: 227 lb 228 lb BMI 34.4 34.7 BP 122/82 H 127/79 H Blood Pressure Location Lt brachial Lt brachial Position Sitting Sitting Respiration 14 18 Pulse 75 77 Pulse Source Monitor Monitor Temp 98.2 F 98.5 F Temperature Source Temporal Artery Pulse Oximetry (%) 98 95 Oxygen Delivery Method room air room air Intake Accompanied by: Self Is patient in pain?: No Allergies latex Allergy (Intermediate, Verified 02/17/25 11:38) blisters Medications ?Medication ?Instructions ?Recorded ?Confirmed ?Type cholecalciferol (vitamin D3) 25 1,000 unit PO DAILY 02/17/25 History mcg (1,000 unit) capsule multivitamin 1 cap PO DAILY 02/20/1802/07 History alprazolam 0.25 mg tablet 0.25 mg PO BID PRN anxiety # 14 tabs 06/26/22 02/17/25 Rx biotin 10,000 mcg chewable tablet mcg PO DAILY 4 02/17/25 History (Hair, Skin and Nails (biotin)) tamoxifen 20 mg tablet 60 mg (3 x 20 mg) PO DAILY # 270 04/14/24 02/17/25 Rx TABLETS furosemide 40 mg tablet (Lasix) 40 mg PO .prn 90 days #90 tabs 04/19/24 02/17/25 Rx meloxicam 15 mg tablet 7.5 mg PO DAILY 05/20/2405/03 History pertuzumab 420 mg/14 mL (30 mg/mL) 420 mg (14 mL) .Rou te Q21D #14 mL 06/08/24 02/17/25 Rx intravenous solution (Perjeta) trastuzumab-anns 420 mg 609 mg .Route Q21D #2 ea 02/17/25 Rx intravenous solution (Kanjinti) oxycodone 5 mg tablet 5 - 10 mg PO Q6 PRN 09/23/24 02/17/25 History vitamin b6 PO DAILY 11/04/24 02/17/25 H istory neomycin 3.5 mg/g-polymyxin B ophthalmic (eye) TID 02/17/25 History 10,000 unit/g-dexameth 0.1 % eye oint lidocaine-prilocaine 2.5 %-2.5 % 1 applic topical ONCE PRN port 12/07/24 02/17/25 Rx topical cream access 30 days #30 grams simvastatin 20 mg tablet 20 mg PO QHS #90 tabs 02/17/25 Rx tirzepatide (weight loss) 5 mg/0.5 5 mg (0.5 mL) subcu t QWEEK #2 mL 01/25/25 02/17/25 Rx mL subcutaneous pen injector (Zepbound) Central Venous Access Central Venous Access: Yes Port/PICC: Port Exam Physical Exam Narrative ECOG 0, Const alert, oriented x3 and no apparent distress HEENT normocephalic Eyes conjunctivae normal and no scleral icterus Neck no lymphadenopathy and supple Lymph Lymphatic: no lymphadenopathy noted Lymphatic Narrative: Chest Chest Narrative: Port R IC area. Chest: vascular access Resp normal respiratory effort and clear to auscultation bilaterally Cardio regular rate, regular rhythm, S1 normal heart sound and S2 normal heart sound GI normal to inspection, nondistended, normoactive bowel sounds, soft to palpation,non-tender and non-distended Back/Spine no thoracic nor lumbar tenderness Extremity General Extremity: edema bilateral lower extremity Details: mild Neuro oriented x3, CN's II-XII intact bilaterally and moves all extremities Gait (Neuro): normal gait and other slow Psych Attitude: calm and engaged Coding Level of Care Code Off vis,est,level 4 Exam Problem Focused Diagnoses Malignant neoplasm of upper-outer quadrant of left breast in female, estrogen receptor positive C50.412; Z17.0 Breast location: upper outer quadrant of breast Estrogen receptor status: positive Patient sex: female Laterality: left Encounter for monoclonal antibody treatment for malignancy Z51.12 Assessment and Plan Assessment and Plan (1) Breast cancer: Status: Chronic Qualifiers: Breast location: upper outer quadrant of breast Estrogen receptor status: positive Patient sex: female Laterality: left Qualified Code(s): C50.412 - Malignant neoplasm of upper-outer quadrant of left female breast; Z17.0 - Estrogen receptor positive status [ER+] Comment: Invasive Ductal Cancer L breast, ER 95% +, FL 10% +, Her2 3+, initially started with redness of the breast and given antibiotics. 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 BRCA1 and 2 negative. Started therapy with TCHP on 06/27/2022. ctDNA on 06/27/[address] c/a/p on 08/22/2022 shows Partial response with decrease in L breast masses, resolution of L axillary nodes, persistent bone metastases. ctDNA on 08/29/2022 was 0.04. Finished C6 TCHP + Tamoxifen on 10/11/2022. On maintenance Perjeta +Herceptin analogue with Tamoxifen. Echocardiogram 10/29/2022 EF 60%. ctDNA on 10/31/2022 was Zero. Bone scan on 12/05/2022 shows decreased activities with remaining R scapula, R calvarium lesion is old from 2017 and not malignant. PET/CT on 12/17/2022 shows resolution of primary and secondary tumors, slight activity is R rib may be healing fracture. Echocardiogram on 01/24/23 showed EF 60%. CT on 03/27/2023 reviewed, shows stable bone metastases. PET/CT 07/15/23 negative. Echocardiogram on 08/15/2023 shows EF 60%. ctDNA on 07/31/2023 was 0.06. Echocardiogram on 11/19/2023 shows EF 60%. Echocardiogram February 10, 2024 normal left ventricular ejection fraction 65% PET/CT 01/06/2024 , shows no evidence of disease. Echo on 05/19/2024 shows EF 60%. PET/CT 12/07/2024 reviewed, no hypermetabolic activity. Echo 12/02/2024 EF 60% Plan: Proceed with C 46 trastuzumab and pertuzumab today. Echo due to be completed end february. Follow-up with cardio oncology March 2025 Continue tamoxifen. (2) Encounter for monoclonal antibody treatment for malignancy: Status: Acute Comment: Echo on 12/02/2024 showed EF 60%. Plan: To proceed with C46 P/H analogue. Orders: Orders CBC W/Diff, Automated 3 Weeks C50.412 - Malignant neoplasm of upper-outer quadrant of left female breast, Z17.0 - Estrogen receptor positive status [ER+] Comprehensive Metabolic Profil 3 Weeks C50.412 - Malignant neoplasm of upper-outer quadrant of left female breast, Z17.0 - Estrogen receptor positive status [ER+] CA 15-3 3 Weeks C50.412 - Malignant neoplasm of upper-outer quadrant of left female breast, Z17.0 - Estrogen receptor positive status [ER+] CA 27.29 3 Weeks C50.412 - Malignant neoplasm of upper-outer quadrant of left female breast, Z17.0 - Estrogen receptor positive status [ER+] Carcinoembryonic Antigen 3 Weeks C50.412 - Malignant neoplasm of upper-outer quadrant of left female breast, Z17.0 - Estrogen receptor positive status [ER+] Plan RTO 03/10/25 for ?c47 02/17/25 1223 <Electronically signed by Genna VELASCOC> Date _ Genna VELASCOC Cosigner Signature: Date (if applicable) CC: ~ [place] [employer] Work Phone: [phone]) 398-331007-10-2025 [facility] [address] [address] OFFICE VISIT Date of Service: 12/16/24 1118 MR#: [id number] Acct: [id number] Name: LISSETT RUSSELL Rep #: [id number] : 1970 From: Cristóbal Ford MD Age/Sex: 54/F [place] [facility] [place]: Signed HPI Subjective Date of Service 12/16/24 Chief Complaint F/u for Metastatic Breast cancer on treatment History of Present Illness 54 year-old woman had a screening mammogram on 05/07/2022 which showed abnormal left breast. She had left breast ultrasound on 05/10/2022 which showed irregulardensity at 1 o'clock and 2:00 position of the left breast. She was seen by Dr. Wolfe on 05/24/2022 with severe redness of the left breast soshe was given IV Rocephin and then oral Augmentin. Needle aspiration for culture was negative. She was seen on 06/06/2022 the erythema of the left breast had improved. She had core biopsy done of 2 nodules in the left breast done. Pathology on 06/06/2022 showed invasive ductal carcinoma at the 2:00and 1:00 positions. ER positive greater than 95%, FL +10% HER2 3+, Ki-67 +50%. She was seen on 06/12/2022 with improvement in the redness of the left breast by but was still edematous. She was referredfor further evaluation and management. The redness of the L breast has improved, just limited to the area close to the nipple. L breast skin punch biopsy on 06/17/2022 showed angiolymphatic invasion by carcinoma. L axillary node core biopsy on 06/18/2022 showed metastatic carcinoma. Bone scan on 06/21/2022 showed activity in L frontal skull, bilateral anterior and posterior ribs, L posterior ilium, Lacetabulum, L proximal/mid femur. PET/CT on 06/19/2022 showed hypermetabolic activities in L breast,L axilla, ribs, multiple vertebrae, L femur. Echocardiogram done on 06/18/2022 showed EF 65%. Port was placed on 06/17/2022. 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 06/06/22 [facility] IHC shows PDL1 <1%/negative. NGS testing tumor mutational burden low, MSI negative, + ERBB2 amplification, otherwise no clinically relevant mutationsidentified. Began chemotherapy and monoclonal antibody therapy-TCHP C1 on 06/27/2022. ctDNA on 06/27/2022 was 50 positive. 08/08/22:[facility] Hereditary cancer testing negative for BRCA1 and BRCA2. CT on 08/22/2022showed persistent bony metastases, resolution of axillary nodes. Met with Dr. Mancuso on 09/25/22 for second opinion.? After discussion, they elect to continue receiving treatment in [facility] locally but patient did discontinue tamoxifenat this time as recommended by Dr. Mancuso.? Got C6TCHP on 10/10/2022, restarted Tamoxifen. Started Maintenance Perjeta and Herceptin analogue on 10/31/2022. Bone scan obtained 12/05/22 showed persistent uptake in the left frontal calvarium and right scapula consistent with skeletal metastatic disease,interim resolution of prior defined abnormalities in the bilateral acetabular, right-left upper posterior ribs, left sacroiliac joint aright posterior 12th ribs and lumbar vertebra. PET scan obtained 12/17/22 shows absence of neoplasticdisease, with interim resolution of the prior defined left breast, left axillaryas well as osseous skeletal hype rmetabolic foci. ctDNA on 04/24/2023 was 0. PET/CT on 07/15/2023 showed no activity. Was found to have increasing tumor markers, PET/CT performed on 01/06/24 negative. Echocardiogram on 02/10/2024 showed EF 65%. Held tamoxifen the day of right knee replacement, 03/11/24 wfhvspu69/11/24 while on anticoagulation. Got Perjeta and Herceptin analogue C34 on 06/10/2023. Developed reddish rash on the L breast and L side of trunk, had fever yesterday was given antibiotics, biopsy on skin on 06/16/2024 showed Perivascular and periadnexal dermal acute and chronic inflammation. June 15, 2024 PET/CT demonstrates hypermetabolic activity in the right axilla and left inguinal regions fulfill quantitative criteria for neoplastic transformation, diffuse increased uptake noted in the left anterior chest wall, superficial in presentation fulfills quantitative criteria for viable neoplasm. Overall, compared to the prior FDG PET study dated 01/06/24, there is apparent interim metabolic progression of defined viable neoplastic disease. Comes for C43 P/H analogue. Feels well. Had PET/CT and Echo done. Interval History [facility] Medical History HER2-positive carcinoma of breast Abnormal [...] do you feel safe at home: Yes Intake Vital Signs 08/12/24 10:18 12/16/24 11:18 Height 5 ft 8 in 5 ft 8 in Weight: 104.411 kg BMI 34.9 BP 133/83 H Blood Pressure Location Rt brachial Position Sitting Respiration 16 Pulse 79 Pulse Source Monitor Pulse Oximetry (%) 97 Oxygen Delivery Method room air Intake Accompanied by: Self Is patient in pain?: No Allergies latex Allergy (Intermediate, Verified 12/16/24 11:22) blisters Medications ?Medication ?Instructions ?Recorded ?Confirmed ?Type cholecalciferol (vitamin D3) 25 1,000 unit PO DAILY 12/16/24 History mcg (1,000 unit) capsule multivitamin 1 cap PO DAILY 02/20/1812/07 History alprazolam 0.25 mg tablet 0.25 mg PO BID PRN anxiety # 14 tabs 06/26/22 12/16/24 Rx biotin 10,000 mcg chewable tablet mcg PO DAILY 4 12/16/24 History (Hair, Skin and Nails (biotin)) tamoxifen 20 mg tablet 60 mg (3 x 20 mg) PO DAILY # 270 04/14/24 12/16/24 Rx TABLETS furosemide 40 mg tablet (Lasix) 40 mg PO .prn 90 days #90 tabs 04/19/24 12/16/24 Rx meloxicam 15 mg tablet 7.5 mg PO DAILY 05/20/2404/02 History pertuzumab 420 mg/14 mL (30 mg/mL) 420 mg (14 mL) .Rou te Q21D #14 mL 06/08/24 12/16/24 Rx intravenous solution (Perjeta) trastuzumab-anns 420 mg 609 mg .Route Q21D #2 ea 12/16/24 Rx intravenous solution (Kanjinti) simvastatin 20 mg tablet 20 mg PO QHS #90 tabs 12/16/24 Rx oxycodone 5 mg tablet 5 - 10 mg PO Q6 PRN 09/23/24 12/16/24 History vitamin b6 PO DAILY 11/04/24 12/16/24 H istory neomycin 3.5 mg/g-polymyxin B ophthalmic (eye) TID 12/16/24 History 10,000 unit/g-dexameth 0.1 % eye oint lidocaine-prilocaine 2.5 %-2.5 % 1 applic topical ONCE PRN port 12/07/24 12/16/24 Rx topical cream access 30 days #30 grams Central Venous Access Central Venous Access: Yes Port/PICC: Port (right) 12/07/2024 PET/CT reviewed PET/PET/CT Tumor Base -Thigh Subs IMPRESSION: FDG avid- 1. In the skin of the anterolateral right thigh, a small focus of activity is seen, most probably due to urinary contamination. 2. No significant avid lesions. Other: Diffuse fatty infiltration of the liver. Please note the low-dose CT scan was performed to facilitate PET image reconstruction and anatomic localization and does not replace a diagnostic CT. Any diagnostic CT requested and performed at the time of the PET will be reported separately. 12/02/2024 Echo reviewed. ECHO/ONC Echo, Limited Study Interpretation Summary Normal LV size. The left ventricular ejection fraction is 60 %. The global longitudinal strain is normal. The global longitudinal strain = - 17.6% (normal). Exam Physical Exam Narrative ECOG 0, Const alert, oriented x3 and no apparent distress HEENT normocephalic Eyes conjunctivae normal and no scleral icterus Neck no lymphadenopathy and supple Lymph Lymphatic: no lymphadenopathy noted Lymphatic Narrative: Chest Chest Narrative: Port R IC area. Chest: vascular access Resp normal respiratory effort and clear to auscultation bilaterally Cardio regular rate, regular rhythm, S1 normal heart sound and S2 normal heart sound GI normal to inspection, nondistended, normoactive bowel sounds, soft to palpation,non-tender and non-distended Back/Spine no thoracic nor lumbar tenderness Extremity General Extremity: edema bilateral lower extremity Details: mild Skin Skin Narrative: +wheal R arm anterior. Neuro oriented x3, CN's II-XII intact bilaterally and moves all extremities Gait (Neuro): normal gait and other slow Psych Attitude: calm and engaged Coding Level of Care Code Off vis,est,level 4 Exam Problem Focused Diagnoses Malignant neoplasm of upper-outer quadrant of left breast in female, estrogen receptor positive C50.412; Z17.0 Breast location: upper outer quadrant of breast Estrogen receptor status: positive Patient sex: female Laterality: left Encounter for monoclonal antibody treatment for malignancy Z51.12 Assessment and Plan Assessment and Plan (1) Breast cancer: Status: Chronic Qualifiers: Breast location: upper outer quadrant of breast Estrogen receptor status: positive Patient sex: female Laterality: left Qualified Code(s): C50.412 - Malignant neoplasm of upper-outer quadrant of leftfemale breast; Z17.0 - Estrogen receptor positive status [ER+] Comment: Invasive Ductal Cancer L breast, ER 95% +, FL 10% +, Her2 3+, initially started with redness of thebreast and given antibiotics. 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 BRCA1 and 2 negative. Started therapy with TCHP on 06/27/2022. ctDNA on 06/27/[address] c/a/p on 08/22/2022 shows Partial response with decrease in L breast masses, resolution of L axillary nodes, persistent bone metastases. ctDNA on 08/29/2022 was 0.04. Finished C6 TCHP + Tamoxifen on 10/11/2022. On maintenance Perjeta +Herceptin analogue with Tamoxifen. Echocardiogram 10/29/2022 EF 60%. ctDNA on 10/31/2022 was Zero. Bone scan on 12/05/2022 shows decreased activities with remaining R scapula, R calvarium lesion is old from 2017 and not malignant. PET/CT on 12/17/2022 shows resolution of primary and secondary tumors, slight activity is R rib may be healing fracture. Echocardiogram on 01/24/23 showed EF 60%. CT on 03/27/2023 reviewed, shows stable bone metastases. PET/CT 07/15/23 negative. Echocardiogram on 08/15/2023 shows EF 60%. ctDNA on 07/31/2023 was 0.06. Echocardiogram on 11/19/2023 shows EF 60%. Echocardiogram February 10, 2024 normal left ventricular ejection fraction 65% PET/CT 01/06/2024 , shows no evidence of disease. Echo on 05/19/2024 shows EF 60%. Comes for C43. PET/CT 12/07/2024 reviewed, no hypermetabolic activity. Echo 12/02/2024 EF 60% Plan: Proceed with C43 trastuzumab and pertuzumab today. Continue tamoxifen. (2) Encounter for monoclonal antibody treatment for malignancy: Status: Acute Comment: Echo on 12/02/2024 showed EF 60%. Plan: To proceed with C43 P/H analogue. 12/16/24 1153 D> Date _ Cristóbal Ford MD Cosigner Signature: Date (if applicable) CC: ~ [facility]07-10-2025 Progress note Author Cristóbal Ford [facility] Note Date/Time December 16, 2024 11:5 3am [facility] [place] [address] OFFICE VISIT Date of Service: 12/16/24 1118 MR#: [id number] Acct: [id number] Name: LISSETT RUSSELL Rep #: [id number] : 1970 From: Cristóbal Ford MD Age/Sex: 54/F [place] [facility] Status: Signed HPI Subjective Date of Service 12/16/24 Chief Complaint F/u for Metastatic Breast cancer on treatment History of Present Illness 54 year-old woman had a screening mammogram on 05/07/2022 which showed abnormal left breast. She had left breast ultrasound on 05/10/2022 which showed irregulardensity at 1 o'clock and 2:00 position of the left breast. She was seen by Dr. Wolfe on 05/24/2022 with severe redness of the left breast so she was given IV Rocephin and then oral Augmentin. Needle aspiration for culture was negative. She was seen on 06/06/2022 the erythema of the left breast had improved. She had core biopsy done of 2 nodules in the left breast done. Pathology on 06/06/2022 showed invasive ductal carcinoma at the 2:00 and 1:00 positions. ER positive greater than 95%, FL +10% HER2 3+, Ki-67 +50%. She was seen on 06/12/2022 with improvement in the redness of the left breast by but was still edematous. She was referred for further evaluation and management. The redness of the L breast has improved, just limited to the area close to the nipple. L breast skin punch biopsy on 06/17/2022 showed angiolymphatic invasion by carcinoma. L axillary node core biopsy on 06/18/2022 showed metastatic carcinoma. Bone scan on 06/21/2022 showed activity in L frontal skull, bilateral anterior and posterior ribs, L posterior ilium, L acetabulum, L proximal/mid femur. PET/CT on 06/19/2022 showed hypermetabolic activities in L breast, L axilla, ribs, multiple vertebrae, L femur. Echocardiogram done on 06/18/2022 showed EF 65%. Port was placed on 06/17/2022. 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 06/06/22 [facility] IHC shows PDL1 <1%/negative. NGS testing tumor mutational burden low, MSI negative, + ERBB2 amplification, otherwise no clinically relevant mutations identified. Began chemotherapy and monoclonal antibody therapy-TCHP C1 on 06/27/2022. ctDNA on 06/27/2022 was 50 positive. [facility] for BRCA1 and BRCA2. CT on 08/22/2022showed persistent bony metastases, resolution of axillary nodes. Met with Dr. Mancuso on 09/25/22 for second opinion.? After discussion, they elect to continue receiving treatment in [place] locally but patient did discontinue tamoxifenat this time as recommended by Dr. Mancuso.? Got C6TCHP on 10/10/2022, restarted Tamoxifen. Started Maintenance Perjeta and Herceptin analogue on 10/31/2022. Bone scan obtained 12/05/22 showed persistent uptake in the left frontal calvarium and right scapula consistent with skeletal metastatic disease,interim resolution of prior defined abnormalities in the bilateral acetabular, right-left upper posterior ribs, left sacroiliac joint aright posterior 12th ribs and lumbar vertebra. PET scan obtained 12/17/22 shows absence of neoplasticdisease, with interim resolution of the prior defined left breast, left axillaryas well as osseous skeletal hypermetabolic foci. ctDNA on 04/24/2023 was 0. PET/CT on 07/15/2023 showed no activity. Was found to have increasing tumor markers, PET/CT performed on 01/06/24 negative. Echocardiogram on 02/10/2024 showed EF 65%. Held tamoxifen the day of right knee replacement, 03/11/24 /11/24 while on anticoagulation. Got Perjeta and Herceptin analogue C34 on 06/10/2023. Developed reddish rash on the L breast and L side of trunk, had fever yesterday was given antibiotics, biopsy on skin on 06/16/2024 showed Perivascular and periadnexal dermal acute and chronic inflammation. June 15, 2024 PET/CT demonstrates hypermetabolic activity in the right axilla and left inguinal regions fulfill quantitative criteria for neoplastic transformation, diffuse increased uptake noted in the left anterior chest wall, superficial in presentation fulfills quantitative criteria for viable neoplasm. Overall, compared to the prior FDG PET study dated 01/06/24, there is apparent interim metabolic progression of defined viable neoplastic disease. Comes for C43 P/H analogue. Feels well. Had PET/CT and Echo done. Interval History PFSH Medical History HER2-positive carcinoma of breast Abnormal [...] do you feel safe at home: Yes Intake Vital Signs 08/12/24 10:18 12/16/24 11:18 Height 5 ft 8 in 5 ft 8 in Weight: 104.411 kg BMI 34.9 BP 133/83 H Blood Pressure Location Rt brachial Position Sitting Respiration 16 Pulse 79 Pulse Source Monitor Pulse Oximetry (%) 97 Oxygen Delivery Method room air Intake Accompanied by: Self Is patient in pain?: No Allergies latex Allergy (Intermediate, Verified 12/16/24 11:22) blisters Medications ?Medication ?Instructions ?Recorded ?Confirmed ?Type cholecalciferol (vitamin D3) 25 1,000 unit PO DAILY 12/16/24 History mcg (1,000 unit) capsule multivitamin 1 cap PO DAILY 02/20/1812/07 History alprazolam 0.25 mg tablet 0.25 mg PO BID PRN anxiety # 14 tabs 06/26/22 12/16/24 Rx biotin 10,000 mcg chewable tablet mcg PO DAILY 4 12/16/24 History (Hair, Skin and Nails (biotin)) tamoxifen 20 mg tablet 60 mg (3 x 20 mg) PO DAILY # 270 04/14/24 12/16/24 Rx TABLETS furosemide 40 mg tablet (Lasix) 40 mg PO .prn 90 days #90 tabs 04/19/24 12/16/24 Rx meloxicam 15 mg tablet 7.5 mg PO DAILY 05/20/2404/02 History pertuzumab 420 mg/14 mL (30 mg/mL) 420 mg (14 mL) .Rou te Q21D #14 mL 06/08/24 12/16/24 Rx intravenous solution (Perjeta) trastuzumab-anns 420 mg 609 mg .Route Q21D #2 ea 12/16/24 Rx intravenous solution (Kanjinti) simvastatin 20 mg tablet 20 mg PO QHS #90 tabs 12/16/24 Rx oxycodone 5 mg tablet 5 - 10 mg PO Q6 PRN 09/23/24 12/16/24 History vitamin b6 PO DAILY 11/04/24 12/16/24 H istory neomycin 3.5 mg/g-polymyxin B ophthalmic (eye) TID 12/16/24 History 10,000 unit/g-dexameth 0.1 % eye oint lidocaine-prilocaine 2.5 %-2.5 % 1 applic topical ONCE PRN port 12/07/24 12/16/24 Rx topical cream access 30 days #30 grams Central Venous Access Central Venous Access: Yes Port/PICC: Port (right) 12/07/2024 PET/CT reviewed PET/PET/CT Tumor Base -Thigh Subs IMPRESSION: FDG avid- 1. In the skin of the anterolateral right thigh, a small focus of activity is seen, most probably due to urinary contamination. 2. No significant avid lesions. Other: Diffuse fatty infiltration of the liver. Please note the low-dose CT scan was performed to facilitate PET image reconstruction and anatomic localization and does not replace a diagnostic CT. Any diagnostic CT requested and performed at the time of the PET will be reported separately. 12/02/2024 Echo reviewed. ECHO/ONC Echo, Limited Study Interpretation Summary Normal LV size. The left ventricular ejection fraction is 60 %. The global longitudinal strain is normal. The global longitudinal strain = - 17.6% (normal). Exam Physical Exam Narrative ECOG 0, Const alert, oriented x3 and no apparent distress HEENT normocephalic Eyes conjunctivae normal and no scleral icterus Neck no lymphadenopathy and supple Lymph Lymphatic: no lymphadenopathy noted Lymphatic Narrative: Chest Chest Narrative: Port R IC area. Chest: vascular access Resp normal respiratory effort and clear to auscultation bilaterally Cardio regular rate, regular rhythm, S1 normal heart sound and S2 normal heart sound GI normal to inspection, nondistended, normoactive bowel sounds, soft to palpation,non-tender and non-distended Back/Spine no thoracic nor lumbar tenderness Extremity General Extremity: edema bilateral lower extremity Details: mild Skin Skin Narrative: +wheal R arm anterior. Neuro oriented x3, CN's II-XII intact bilaterally and moves all extremities Gait (Neuro): normal gait and other slow Psych Attitude: calm and engaged Coding Level of Care Code Off vis,est,level 4 Exam Problem Focused Diagnoses Malignant neoplasm of upper-outer quadrant of left breast in female, estrogen receptor positive C50.412; Z17.0 Breast location: upper outer quadrant of breast Estrogen receptor status: positive Patient sex: female Laterality: left Encounter for monoclonal antibody treatment for malignancy Z51.12 Assessment and Plan Assessment and Plan (1) Breast cancer: Status: Chronic Qualifiers: Breast location: upper outer quadrant of breast Estrogen receptor status: positive Patient sex: female Laterality: left Qualified Code(s): C50.412 - Malignant neoplasm of upper-outer quadrant of left female breast; Z17.0 - Estrogen receptor positive status [ER+] Comment: Invasive Ductal Cancer L breast, ER 95% +, FL 10% +, Her2 3+, initially started with redness of the breast and given antibiotics. 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 BRCA1 and 2 negative. Started therapy with TCHP on 06/27/2022. ctDNA on 06/27/[address] c/a/p on 08/22/2022 shows Partial response with decrease in L breast masses, resolution of L axillary nodes, persistent bone metastases. ctDNA on 08/29/2022 was 0.04. Finished C6 TCHP + Tamoxifen on 10/11/2022. On maintenance Perjeta +Herceptin analogue with Tamoxifen. Echocardiogram 10/29/2022 EF 60%. ctDNA on 10/31/2022 was Zero. Bone scan on 12/05/2022 shows decreased activities with remaining R scapula, R calvarium lesion is old from 2017 and not malignant. PET/CT on 12/17/2022 shows resolution of primary and secondary tumors, slight activity is R rib may be healing fracture. Echocardiogram on 01/24/23 showed EF 60%. CT on 03/27/2023 reviewed, shows stable bone metastases. PET/CT 07/15/23 negative. Echocardiogram on 08/15/2023 shows EF 60%. ctDNA on 07/31/2023 was 0.06. Echocardiogram on 11/19/2023 shows EF 60%. Echocardiogram February 10, 2024 normal left ventricular ejection fraction 65% PET/CT 01/06/2024 , shows no evidence of disease. Echo on 05/19/2024 shows EF 60%. Comes for C43. PET/CT 12/07/2024 reviewed, no hypermetabolic activity. Echo 12/02/2024 EF 60% Plan: Proceed with C43 trastuzumab and pertuzumab today. Continue tamoxifen. (2) Encounter for monoclonal antibody treatment for malignancy: Status: Acute Comment: Echo on 12/02/2024 showed EF 60%. Plan: To proceed with C43 P/H analogue. 12/16/24 1153 <Electronically signed by Cristóbal Zeng> Date _ Cristóbal Ford MD Cosigner Signature: Date (if applicable) CC: ~ [facility] Work Phone: 1(462) 109-883606-19-2025 Evaluation note* Diagnosis Onset Date Resolution Status Admit Date Encounter for monoclonal antibody treatment for malignancy acute November 25, 2024 10:48am Breast cancer chronic November 25, 2024 10:48am Encounter for monoclonal antibody treatment for malignancy acute December 16, 2024 10:42am Breast cancer chronic December 16, 2024 10:42am Obesity acute December 29 7:29am Encounter for monoclonal antibody treatment for malignancy acute January 06, 2025 10:48am Pruritus acute January 06 10:48am Breast cancer chronic January 06, 2025 10:48am Encounter for monoclonal antibody treatment for malignancy acute January 27 7:48am Pruritus acute January 27 7:48am Breast cancer chronic January 7:48am Acute mastitis of left breast acute February 02 11:31am Low back pain acute January 11:31am Obesity acute February 02, 025 11:31am Encounter for monoclonal antibody treatment for malignancy acute February 17, 2025 11:26am Breast cancer chronic February 072024 11:26am Encounter for monoclonal antibody treatment for malignancy acute March 10 10:14am Breast cancer chronic March 10:14am [facility] Work Phone: 1(156) 553-704305-29-2025 Evaluation note* Diagnosis Onset Date Resolution Status Admit Date Encounter for monoclonal antibody treatment for malignancy acute November 04, 2024 1 0:45am Wheal acute November 04, 2024 10:45am Breast cancer chronic November 04, 025 10:45am Encounter for monoclonal antibody treatment for malignancy acute November 25, 2024 10:48am Breast cancer chronic November 25, 2024 10:48am Encounter for monoclonal antibody treatment for malignancy acute December 16, 2024 10:42am Breast cancer chronic December 16, 2024 10:42am Obesity acute December 29 7:29am Encounter for monoclonal antibody treatment for malignancy acute January 06, 2025 10:48am Pruritus acute January 06 10:48am Breast cancer chronic January 06, 2025 10:48am Encounter for monoclonal antibody treatment for malignancy acute January 27 7:48am Pruritus acute January 27, 025 7:48am Breast cancer chronic January 7:48am Acute mastitis of left breast acute February 02 11:31am Low back pain acute January 11:31am Obesity acute February 02, 025 11:31am Encounter for monoclonal antibody treatment for malignancy acute February 17, 2025 11:26am Breast cancer chronic February 072024 11:26am [facility] Work Phone: 1(911) 671-807505-20-2025 Progress [facility] [address], [address] [place] [id number] OFFICE VISIT Date of Service: 10/26/24 MR#: [id number] Acct: [id number] Name: LISSETT RUSSELL Rep #: [id number] : 1970 Provider: LARA Melton Age/Sex: 54/F [place] [facility] Status: Signed Intake Vital Signs 10/14/24 10:06 [...] for a UTI. Patient states it started Th evening with theurge to go but thenshe couldn't. PFSH Medical History HER2-positive carcinoma of breast Abnormal [...] or stool; no urethral/ vaginal discharge. No uxol-lss-qdnowsnvbeqzhlenwc have been taken to assist. No other [...] symptoms not improve, ED sooner shouldsymptoms only worsenor any other concerns develop. Patient states acknowledging [...] on 10/26/24 11: 17 Off Ur Spec Vanduser 1.015 Last Edit by Maria Isabel Lima [...] Hemolyzed Non-Hemolyzed Last Edit by Maria Isabel Lmia MA on 10/26/24 11:17 Office Urine Protein [...] 5 days 10 caps 0RF 10/26/24 1127 s LARA BERMUDEZ> Date _ Dain BERMUDEZ Cosigner Signature: Date (if applicable) CC: ~ [facility]05-20-2025 Progress note Author Dain Vaughn [facility] Note Date/Time October 26, 2024 11:27 am [facility] [address] [facility], [address] [place] [address] OFFICE VISIT Date of Service: 10/26/24 MR#: [id number] Acct: [id number] Name: LISSETT RUSSELL Rep #: [id number] : 1970 Provider: LARA Melton Age/Sex: 54/F Location: [facility] Status: Signed Intake Vital Signs 10/14/24 10:06 [...] to go but then she couldn't. [facility] Medical History HER2-positive carcinoma of breast Abnormal [...] or stool; no urethral/ vaginal discharge. No lued-[id number] have been taken to assist. No other [...] on 10/26/24 11: 17 Off Ur Spec Vanduser 1.015 Last Edit by Maria Isabel Lima [...] Cosigner Signature: Date (if applicable) CC: ~ [facility] Work Phone: 1(512) 872-166405-08-2025 Evaluation note* Diagnosis Onset Date Resolution Status Admit Date Encounter for monoclonal antibody treatment for malignancy acute October 14, 2024 9: 56am Breast cancer chronic October 14 9:56am Encounter for monoclonal antibody treatment for malignancy acute November 04, 2024 1 0:45am Wheal acute November 04, 2024 10:45am Breast cancer chronic November 04, 2 025 10:45am Encounter for monoclonal antibody treatment for malignancy acute November 25, 2024 10:48am Breast cancer chronic November 25, 2024 10:48am Encounter for monoclonal antibody treatment for malignancy acute December 16, 2024 10:42am Breast cancer chronic December 16, 2024 10:42am Obesity acute December 29 7:29am Encounter for monoclonal antibody treatment for malignancy acute January 06, 2025 10:48am Pruritus acute January 06 10:48am Breast cancer chronic January 06, 2025 10:48am [place] [employer] [facility] Work Phone: 1([phone]) 809-375605-08-2025 Evaluation note* Diagnosis Onset Date Resolution Status Admit Date Encounter for monoclonal antibody treatment for malignancy acute October 14, 2024 9: 56am Breast cancer chronic October 14 9:56am Encounter for monoclonal antibody treatment for malignancy acute November 04, 2024 1 0:45am Wheal acute November 04, 2024 10:45am Breast cancer chronic November 04, 2 025 10:45am Encounter for monoclonal antibody treatment for malignancy acute November 25, 2024 10:48am Breast cancer chronic November 25, 2024 10:48am Encounter for monoclonal antibody treatment for malignancy acute December 16, 2024 10:42am Breast cancer chronic December 16, 2024 10:42am Obesity acute December 29 7:29am Encounter for monoclonal antibody treatment for malignancy acute January 06, 2025 10:48am Pruritus acute January 06 10:48am Breast cancer chronic January 06, 2025 10:48am Encounter for monoclonal antibody treatment for malignancy acute January 27 7:48am Pruritus acute January 27, 025 7:48am Breast cancer chronic January 7:48am [place] [employer] [facility] Work Phone: 1(209) 972-693304-17-2025 Evaluation note* Diagnosis Onset Date Resolution Status Admit Date Encounter for monoclonal antibody treatment for malignancy acute September 23, 2024 10:30am Breast cancer chronic September 23, 2024 10:30am Encounter for monoclonal antibody treatment for malignancy acute October 14, 2024 9: 56am Breast cancer chronic October 14 9:56am Encounter for monoclonal antibody treatment for malignancy acute November 04, 2024 1 0:45am Wheal acute November 04, 2024 10:45am Breast cancer chronic November 04, 2 025 10:45am Encounter for monoclonal antibody treatment for malignancy acute November 25, 2024 10:48am Breast cancer chronic November 25, 2024 10:48am Encounter for monoclonal antibody treatment for malignancy acute December 16, 2024 10:42am Breast cancer chronic December 16, 2024 10:42am Obesity acute December 29 7:29am [place] [employer] Work Phone: 1(884) 923-995504-17-2025 Evaluation note* Diagnosis Onset Date Resolution Status Admit Date Encounter for monoclonal antibody treatment for malignancy acute September 23, 2024 10:30am Breast cancer chronic September 23, 2024 10:30am Encounter for monoclonal antibody treatment for malignancy acute October 14, 2024 9: 56am Breast cancer chronic October 14 9:56am Encounter for monoclonal antibody treatment for malignancy acute November 04, 2024 1 0:45am Wheal acute November 04, 2024 10:45am Breast cancer chronic November 04, 2 025 10:45am Encounter for monoclonal antibody treatment for malignancy acute November 25, 2024 10:48am Breast cancer chronic November 25, 2024 10:48am Encounter for monoclonal antibody treatment for malignancy acute December 16, 2024 10:42am Breast cancer chronic December 16, 2024 10:42am Obesity acute December 29 7:29am Encounter for monoclonal antibody treatment for malignancy acute January 06, 2025 10:48am Pruritus acute January 06 10:48am Breast cancer chronic January 06, 2025 10:48am [facility] Work Phone: 1(869) 507-957403-27-2025 Evaluation note* Diagnosis Onset Date Resolution Status Admit Date Encounter for monoclonal antibody treatment for malignancy acute September 02, 2024 11:33am Breast cancer chronic September 02, 2024 11:33am Encounter for monoclonal antibody treatment for malignancy acute September 23, 2024 10:30am Breast cancer chronic September 23, 2024 10:30am Encounter for monoclonal antibody treatment for malignancy acute October 14, 2024 9: 56am Breast cancer chronic October 14 9:56am Encounter for monoclonal antibody treatment for malignancy acute November 04, 2024 1 0:45am Wheal acute November 04, 2024 10:45am Breast cancer chronic November 04, 2 025 10:45am Encounter for monoclonal antibody treatment for malignancy acute November 25, 2024 10:48am Breast cancer chronic November 25, 2024 10:48am Encounter for monoclonal antibody treatment for malignancy acute December 16, 2024 10:42am Breast cancer chronic December 16, 2024 10:42am [facility] Work Phone: 1(809) 162-971403-06-2025 Radiology Diagnostic study note [facility] [address] [place] [address] Extremity Lower without Contra MR#: [id number] Acct: [id number] Name: LISSETT RUSSELL Rep #: [id number] : 1970 F 54 From: Osvaldo Cedillo MD PCP: LARA Gomez Status: REG CLI Study:Extremity Lower without Contra Date of Exam: 08/12/24 Exam# [id number] Ordering Dr: Stephen Serrano MD PROCEDURE: EXTREMITY [...] use of iterative reconstruction technique). Reading Location: [id number] CC: Dr. Dain Serrano MD; LARA Gomez ~ Baker Apprentice: Signed [facility]03-06-2025 Evaluation note* Diagnosis Onset Date Resolution [...] 2024 10:30am Breast cancer acute October 14 25 9:56am Encounter for monoclonal antibody treatment for malignancy acute October 14, 2024 9: 56am Breast cancer acute November 04, 2 025 10:45am Encounter for monoclonal antibody treatment for malignancy acute November 04, 2024 1 0:45am Wheal acute November 04, 2024 10:45am Breast cancer acute November 25, 2024 10:48am Encounter for monoclonal antibody treatment for malignancy acute November 25, 2024 10:48am [facility] Work Phone: 1([phone]) 173-609502-13-2025 Evaluation note* Diagnosis Onset Date Resolution Status [...] malignancy acute October 14, 2024 9: 56am [place] [employer] [facility] Work Phone: 1(450) 220-209401-23-2025 Evaluation note* Diagnosis Onset Date Resolution Status [...] malignancy acute October 14, 2024 9: 56am [facility] Work Phone: 1([phone]) 903-887901-02-2025 Evaluation note* Diagnosis Onset Date Resolution Status [...] for malignancy acute September 02, 2024 11:33am [facility] Work Phone: 1([phone]) 863-498712-12-2024 Evaluation note* Diagnosis Onset Date Resolution Status [...] for malignancy acute September 02, 2024 11:33am [facility] Work Phone: 1(191) 980-333611-21-2024 Evaluation note* Diagnosis Onset Date Resolution Status Admit Date Anemia acute April 29, 2024 10:46am Breast cancer acute April 292023 10:46am Encounter for monoclonal antibody treatment for malignancy acute April 29, 10:46am Breast cancer acute May 202023 10:17am Encounter for monoclonal antibody treatment for malignancy acute May 20 10:17am Breast cancer acute June 10:47am Encounter [...] for malignancy acute August 12, 2024 9:17am [facility] Work Phone: 1(321) 985-754705-21-2024 History of Present illness Narrative* Gladis Rausch MD - 10/28/2023 3:15 PM EDT Lissett Russell 53 y.o. HPI Pt is [...] w/ any further bleeding. documented in this [facility]05-03-2024 NotePatient: Lissett Russell Procedure Summary Date: 10/10/23 Room / Location: [address] Operating Room Anesthesia Start: 1034 Anesthesia Stop: 1107 Procedure: HYSTEROSCOPY DILATION AND CURETTAGE, POLYPECTOMY Diagnosis: [...] discharged once all PACU criteria has been met.[facility] [id number] NotePatient: Lissett Russell Procedure Summary Date: 10/10/23 Room / Location: [facility] Operating Room Anesthesia Start: 1034 Anesthesia Stop: 1107 Procedure: HYSTEROSCOPY DILATION AND CURETTAGE, POLYPECTOMY Diagnosis: [...] Allowed opportunity for questions and acknowledgement of understanding.[facility] [id number] NoteAirway Date/Time: 10/10/2023 10:44 AM Urgency: scheduled Airway not difficult General Information and Staff Patient location during procedure: Procedural Resident/GEOPHYSICAL DATA TECHNICIAN: Zina Hinds APRN - GEOPHYSICAL DATA TECHNICIAN Performed: GEOPHYSICAL DATA TECHNICIAN Indications and Patient Condition Indications for airway management: anesthesia Sedation level: Asleep Preoxygenated: yes Patient position: sniffing Mask difficulty assessment: 0 - not attempted Final Airway Details Final airway type: supraglottic airway Successful airway: Igel Size 4 Number of attempts at approach: 1 Additional Comments Lubed & placed w/ease, atraumatic, dentition & oral mucosa unchanged. [facility] Note* Perioperative Nursing Note - Ivonne Pineda [...] and family. All questions answered. Verbalized understanding. [id number]* Perioperative Nursing Note - Ivonne Pineda [...] and family. All questions answered. Verbalized understanding. T [facility] [id number] Miscellaneous Notes* Perioperative Nursing Note - Ivonne [...] w/ D&C, Myosure Polypectomy Surgeon: Dr. Rausch Blank Driller: None Findings: Polyp noted on the posterior [...] room in stable condition. documented in this [facility]05-03-2024 Hospital Discharge instructions* Discharge Instructions* Gladis [...] other Questions please feel free to call [phone]. Dr. Rausch documented in this [facility]05-03-2024 Note* Op Note - Gladis Rausch MD - 10/10/2023 10:37 AM EDT Pre-Op Diagnosis: PMB, Endometrial Polyp Post-Op Diagnosis: Same Operative Procedure: Operative Hysteroscopy w/ D&C, Myosure Polypectomy Surgeon: Dr. Rausch Blank Driller: None Findings: Polyp noted on the posterior [...] to the recovery room in stable condition. [facility] [id number] Note* Op Note - Gladis Rausch MD - 10/10/2023 10:37 AM EDT Pre-Op Diagnosis: PMB, Endometrial Polyp Post-Op Diagnosis: Same Operative Procedure: Operative Hysteroscopy w/ D&C, Myosure Polypectomy Surgeon: Dr. Rausch Blank Driller: None Findings: Polyp noted on the posterior [...] to the recovery room in stable condition. T [employer] [id number] NotePt w/ a Hx of Breast Ca [...] Assessment: PMB Endometrial Polyp Plan: [facility]/ [facility] History and physical note* Gladis Rausch MD [...] PMB Endometrial Polyp Plan: [facility] w/ [facility] Phone: 1(218) 683-629305-02-2024 History and physical note* Gladis Rausch MD [...] Plan: Hysteroscopy w/ D&C documented in this [facility]04-29-2024 NoteBasic chart review completed in preparation [...] Surgical History: Procedure Laterality Date PORTACATH PLACEMENT [facility]04-29-2024 History of Present illness Narrative* SEGUN Mitchell [...] Date PORTACATH PLACEMENT Right documented in this [facility]04-26-2024 NotePatient: Lissett Russell Procedure Information Date/Time: 10/10/23 1100 Procedure: HYSTEROSCOPY DILATION AND CURETTAGE, POLYPECTOMY - 60 MINS TOTAL Location: [facility] Operating Room Surgeons: Gladis Rausch MD Relevant [...] results found for this or any previous visit.[facility] 10-03-2023 NoteComprehensive Pre Surgical History and Physical ? Name: Lissett Russell : 1970 (Age-53 y.o.) Date of Service: Pt seen/examined on 10/03/2023 Procedure Information Date/Time: 10/10/23 1100 Procedure: HYSTEROSCOPY DILATION AND CURETTAGE, POLYPECTOMY - 60 MINS TOTAL Location: [facility] Operating Room Surgeons: Gladis Rausch MD Chief [...] BMP, CBC - had both drawn at [facility] on 10/02/2023 - will scan into chart once faxed to PAT - METS >4 2) Hx of breast cancer in 2022 - MEDS: tamoxifen, Perjeta injections, Kanjinti - No surgery - Managed by [facility] Oncology - last Visit 10/02/2023 - CBC drawn at [facility] on 10/02/2023 3) Leg swelling - MEDS: lasix - Managed by [facility] Oncology - BMP drawn at [facility] on 10/02/2023 4) Hyperlipidemia - MEDS: Zocar [...] constipation. Patient denies hx of CAD, CHF, IA, TIA/CVA, diabetes, COPD, asthma, ANNALEE, DVT/PE. Past [...] OF SYSTEMS: Review o (more content not included)...[facility] [id number] NoteComprehensive Pre Surgical History and Physical ? Name: Lissett Russell : 1970 (Age-53 y.o.) Date of Service: Pt seen/examined on 10/03/2023 Procedure Information Date/Time: 10/10/23 1100 Procedure: HYSTEROSCOPY DILATION AND CURETTAGE, POLYPECTOMY - 60 MINS TOTAL Location: [facility] Operating Room Surgeons: Gladis Rausch MD [...] BMP, CBC - had both drawn at [facility] on 10/02/2023 - will scan into chart once faxed to PAT - METS >4 2) Hx of breast cancer in 2022 - MEDS: tamoxifen, Perjeta injections, Kanjinti - No surgery - Managed by [facility] Oncology - last Visit 10/02/2023 - CBC drawn at [facility] on 10/02/2023 3) Leg swelling - MEDS: lasix - Managed by [facility] Oncology - BMP drawn at [facility] on 10/02/2023 4) Hyperlipidemia - MEDS: Zocar [...] constipation. Patient denies hx of CAD, CHF, IA, TIA/CVA, diabetes, COPD, asthma, ANNALEE, DVT/PE. Past [...] OF SYSTEMS: Review o (more content not included)...[facility]03-26-2024 History of Present illness Narrative* Gladis [...] best of my ability. documented in this [facility]03-05-2024 History of Present illness Narrative* Nikko [...] No follow-ups on file. documented in this [facility]12-05-2023 History of Present illness Narrative* Nikko [...] Left breast lesion. Pathologic Diagnosis Outside Slides: [id number] (06/06/2022) A. Left Breast at 2 o'clock, [...] normal. Judgment: Judgment normal. Assessment and Plan: Lisstet was seen today for vaginal bleeding. Diagnoses and all orders for this visit: Postmenopausal bleeding (Primary) - US pelvis hysterosonography doppler; Future Care related to current tamoxifen use History of left breast cancer No follow-ups on file. documented in this [facility]04-18-2023 History of Present illness Narrative* Josh Mancuso MD - 09/24/2022 3:40 PM EDT Lissett Russell is a 52 y.o. female with history of ER+, FL+, HER2+, IDC of the left breast and [...] - Invasive Ductal Carcinoma - ER+ (>95%), FL+ (10%), HER2+ (3+), Ki-67 50%, 06/06/22 NGS [...] Complaint Patient presents with New Patient Lissett Russell is here today for a new patient evaluation. She is accompanied by her , Pablo. 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 Shereceived her [...] Left 06/06/2022 Invasive Ductal Carcinoma, ER >95%, FL 10%, HER 2 IHC: 3+ Ki-67: 50%, [...] Concern Not on file Social History Narrative MANAGER ALLIANCE: No LMP recorded.. Last PAP: Para: 2 [...] Carbonate (CALCIUM 600 PO), cholecalciferol 50 MCG (1999 UT) capsule, doxycyclinemonohydrate 100 MG tablet, Lidocaine-prilocaine [...] right chest wall. Patient offered a medical orthodontist vice president for sensitive exam: declined The physical exam [...] y.o. female diagnosed on 06/06/22 with ER+, FL+, HER2+, IDC of the left breast and [...] was a shared visit with Dr. Jamee Coronado CNP-SEGUN ADDENDUM: I saw and evaluated the patient [...] in 05/2022 for a second opinion at [facility] pathology. -She will return on 10/15 for [...] The remainder as above. Josh Mancuso MD Fuse Cup Expander of Internal Medicine Division of Medical Oncology [facility] Instructions* Patient Instructions* Laurel Tomas RN [...] you @ https://takebackday.tereso.gov under the COLLECTION SITE MANAGER SEARCH ENGINE tab. Never dispose of un-needed medications down the sink or toilet. Instead, crush the medication and mix with damp coffee grounds or cat litter, place in a sealed plastic freezer bag, and dispose of in your regular trash. Your Medical/Oncology Team Doctor: Josh Mancuso MD Nurse Practitioner: PIYUSH Marion Primary Nurses: PARADISE Barragan BSN, RN JUAN MANUEL Gupta, RN OCN We are available to take [...] copies of your medical records please call [phone]. If you need to speak to a financial counselor please call . [facility] HCoV 229E RNA ERMIAS+non-probe Ql (Nph)Not Detected *NA* (06/07/22 10:36 AM)AH Auto Viro/Sero [id number] Evaluation + Plan note Future Scheduled Tests Radiology* MA Mammo Screening Bilateral w/ Johnny 04/17/21 [facility] Evaluation + Plan note Future Appointments Appointment Date:06/26/2022 03:00:00 PM Scheduled Provider:MAIDA KIM APRN-SYLVESTER Location:[facility] ([place], [place]) Appointment Type:PC OV Future Scheduled Tests Laboratory* Lipid Profile 07/20/21 * Lipid Profile 05/22/22 * Complete Metabolic Panel 07/20/21 * Complete Metabolic Panel 05/22/22 [facility] Evaluation note* Diagnosis Onset Date Resolution Status Osteoarthritis of knees, bilateral acute Osteoarthritis of knees, bilateral acute [facility] Work Phone: Evaluation note* Diagnosis Onset Date Resolution Status Osteoarthritis of knees, bilateral acute Osteoarthritis of knees, bilateral acute Left knee pain acute Osteoarthritis of knees, bilateral acute Right knee pain acute [facility] Work Phone: Evaluation note* Diagnosis Onset Date Resolution Status Left knee pain acute Osteoarthritis of knees, bilateral acute Right knee pain acute Left knee DJD acute Right knee DJD acute Left knee DJD acute Right knee DJD acute [facility] Work Phone: Evaluation note* Diagnosis Onset Date Resolution Status Left knee DJD acute Right knee DJD acute Left knee DJD acute Right knee DJD acute Abnormal mammogram of left breast acute Mastitis acute Abnormal mammogram of left breast acute Mastitis acute [facility] Work Phone: Evaluation note* Diagnosis Onset Date Resolution Status Left knee DJD acute Right knee DJD acute Abnormal mammogram of left breast acute Mastitis acute Abnormal mammogram of left breast acute Mastitis acute Abnormal mammogram of left breast acute Inflammatory breast cancer a cute Breast cancer acute Breast cancer acute [facility] Work Phone: Evaluation note* Diagnosis Onset Date Resolution Status Left knee DJD acute Right knee DJD acute Abnormal mammogram of left breast acute Mastitis acute Abnormal mammogram of left breast acute Mastitis acute Abnormal mammogram of left breast acute Inflammatory breast cancer a cute Breast cancer acute Breast cancer acute Abnormal magnetic resonance imaging of left breast acute Breast cancer acute [facility] Work Phone: Evaluation note* Diagnosis Onset [...] ibody treatment for malignancy acute Hypercalcemia acute [facility] Work Phone: Evaluation note* Diagnosis Onset [...] ibody treatment for malignancy acute Hypercalcemia acute [facility] Work Phone: evaluation note* Diagnosis Onset [...] acute Breast cancer acute Neck swelling acute [facility] Work Phone: evaluation note* Diagnosis Onset Date Resolution Status Abnormal [...] monoclonal ant ibody treatment for malignancy acute [facility] Work Phone: evaluation note* Diagnosis Onset Date Resolution Status Abnormal [...] skin acute Breast cancer acute Mucositis acute [facility] Work Phone: Evaluation note* Diagnosis Infiltrating ductal carcinoma of left breast- Primary Bone lesion Disorder of bone and cartilage, unspecified [facility] Diagnosis Onset Date Resolution Status [...] edema acute Osteoarthritis of knees, bilateral acute [facility] Work Phone: Evaluation note* Diagnosis Onset Date Resolution Status Adverse [...] monoclonal ant ibody treatment for malignancy acute [facility] Work Phone: Evaluation note* Diagnosis Onset Date Resolution Status Breast [...] Encounter for monitoring cardiotoxic drug therapy acute [facility] Work Phone: Evaluation note* Diagnosis Onset Date Resolution Status Breast [...] monoclonal ant ibody treatment for malignancy acute [facility] Work Phone: Evaluation note* Diagnosis Onset Date Resolution Status Breast [...] for monoclonal ant ibody treatment for malignancy [facility] Work Phone: Evaluation note* Diagnosis Postmenopausal bleeding- Primary Care related to current tamoxifen use Prophylactic use of selective estrogen 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 (SERMs) History of left breast cancer documented in this encounter [facility] [place] note* Diagnosis Postmenopausal bleeding- Primary Care related to current tamoxifen use Prophylactic use of selective estrogen 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 (SERMs) Endometrial polyp Polyp of corpus uteri documented in this encounter [facility] [place] note* Diagnosis Onset Date Resolution Status Blood in toilet bowl acute Breast cancer [...] monoclonal ant ibody treatment for malignancy acute [facility] Work Phone: Evaluation note* Diagnosis Postmenopausal bleeding- Primary Endometrial polyp Polyp of corpus uteri documented in this encounter [facility]* Diagnosis Postmenopausal bleeding Polyp of corpus uteri documented in this encounter [facility]* Diagnosis Follow-up surgery care- Primary Follow-up examination, following unspecified surgery [facility] Narrative No data available for this section [facility] Hospital Discharge instructions No data available for this section [facility] Progress note No data available for this section [facility] Reason for referral (narrative)* Consultation (Routine) - New Request Specialty Diagnoses / Procedures Referred By Dianna ann Referred To Contact Clinical Pathology/Laboratory Medicine Diagnoses Infiltrating ductal carcinoma of left breast Bone lesion Josh Mancuso MD [address], [address] [place] [address] Referral ID Status Reason Start Date Expiration Date V isits Requested Visits Authorized [id number] New Request 09/24/2022 10/19/2023 1 1 * Consultation (Urgent) - New Request Specialty Diagnoses / Procedures Referred By Contact Referred To Contact Interventional Radiology Diagnoses Infiltrating ductal carcinoma of left breast Bone lesion Paige Coronado APRN-CNP [address] [place] [address] Referral ID Status Reason Start Date Expiration Date V isits Requested Visits Authorized [id number] New Request 09/24/2022 10/19/2023 1 1 * Radiology (Routine) - New Request Specialty Diagnoses / Procedures Referred By Contdiana ann Referred To Contact Diagnoses Infiltrating ductal carcinoma of left breast Bone lesion Procedures NUC BONE SCAN WHOLE BODY Paige Coronado APRN-CNP [address] [place] [address] Referral ID Status Reason Start Date Expiration Date V isits Requested Visits Authorized [id number] New Request 09/24/2022 10/19/2023 2 2 * MRI/CAT Scan (Routine) - New Request Specialty Diagnoses / Procedures Referred By Dianna ann Referred To Contact Diagnoses Infiltrating ductal carcinoma of left breast Bone lesion Procedures CT ABDOMEN/PELVIS WITH CONTRAST CHG CT SCAN,ABDOMENT AND PELVIS,W CONTRAST Paige Coronado APRN-CNP [address] [place] [address] Referral ID Status Reason Start Date Expiration Date V isits Requested Visits Authorized [id number] New Request 09/24/2022 10/19/2023 1 1 * MRI/CAT Scan (Routine) - New Request Specialty Diagnoses / Procedures Referred By Dianna ann Referred To Contact Diagnoses Infiltrating ductal carcinoma of left breast Bone lesion Procedures CT CHEST WITH CONTRAST CHG DIAGNOSTIC COMPUTED TOMOGRAPHY THORAX W/CONTRAST Paige Coronado APRN-CNP [address] [place] [address] Referral ID Status Reason Start Date Expiration Date V isits Requested Visits Authorized [id number] New Request 09/24/2022 10/19/2023 1 1 [facility]No reason for referral information availableMechanicsburg CrowdProcess Services Work Phone: Summary Purpose Family History No Family History Records Found Relationship Condition Age at Onset Recorded Date/T jatinder brother Asthma Unknown sister Asthma Unknown grandfather Malignant neoplasm of colon Unknown mother Diabetes mellitus Unknown grandmother Cerebrovascular accident (CVA) Unknown Advance Directives No Advanced Directives Records Found Advance Directive Response Recorded Date/ Time Living Will No December 05, 2014 11:37am Power of Flour Broker No December 05 11:37am Advance Directive Response Recorded Date/ Time Living Will No December 05, 2014 10:37am Power of Flour Broker No December 05 10:37am Advance Directive Response Recorded Date/ Time Living Will No May 23 022 2:25am Power of Flour Broker No May 23, 2022 2:25am Advance Directive Response Recorded Date/ Time Living Will No June 14 8:49am Power of Flour Broker No June 14 023 8:49am Advance Directive Response Recorded Date/ Time Advance Directives on File No 2022 9:29am Advance Directives No June 27, 2022 9:29am Living Will No June 27 9:29am Power of Flour Broker No June 27, 2022 9:29am Advance Directive Response Recorded Date/ Time Advance Directives on File No 2022 3:02pm Advance Directives No June 28, 2022 3:02pm Living Will No June 28 3:02pm Power of Flour Broker No June 28, 2022 3:02pm Advance Directive Response Recorded Date/ Time Advance Directives on File Yes 2022 3:27pm Advance Directives No July 3:27pm Living Will Yes July 19, 023 3:27pm Power of Flour Broker Yes July 19, 2022 3:27pm Advance Directive Response Recorded Date/ Time Advance Directives on File Yes August 09, 2022 2:22pm Advance Directives No August 09 2:22pm Living Will Yes August 09, 2022 2:22pm Power of Flour Broker Yes August 09 2:22pm Advance Directive Response Recorded Date/ Time Advance Directives on File Yes August 09, 2022 3:22pm Advance Directives No August 09 3:22pm Living Will Yes August 09, 2022 3:22pm Power of Flour Broker Yes August 09 3:22pm Advance Directive Response Recorded Date/ Time Advance Directives on File Yes May 2 5th, 2023 2:45pm Advance Directives No October 31 2:45pm Living Will Yes October 31, 2022 2 :45pm Power of Flour Broker Yes October 31, 2022 2:45pm Advance Directive Response Recorded Date/ Time Advance Directives on File Yes Augus 2022 2:28pm Advance Directives No January 23, 2023 2:28pm Living Will No January 23 2:28pm Power of Flour Broker No January 23, 2 023 2:28pm Advance Directive Response Recorded Date/ Time Advance Directives on File Yes 2022 2:46pm Advance Directives No March 13, 2023 2:46pm Living Will No March 13 2:46pm Power of Flour Broker No March 13, 2 023 2:46pm Advance Directive Response Recorded Date/ Time Advance Directives on File Yes 2022 2:09pm Advance Directives No April 2:09pm Living Will No April 24, 2 023 2:09pm Power of Flour Broker No April 24, 2023 2:09pm Advance Directive Response Recorded Date/ Time Advance Directives on File Yes Febru 2023 3:09pm Advance Directives No July 3:09pm Living Will No July 31, 2 024 3:09pm Power of Flour Broker No July 31, 2023 3:09pm Latest Code Status on File Code Status Date Activated Date Inactivated Comments Full Code 10/10/2023 8:26 AM 10/10/2023 2:14 PM Latest Code Status on File Code Status Date Activated Date Inactivated Comments Full Code 10/10/2023 8:26 AM 10/10/2023 2:14 PM Advance Directive Response Recorded Date/ Time Living Will No January 15, 2024 12:48pm Power of Flour Broker No January 14 12:48pm Advance Directives on File Yes August 12, 2024 12:53pm Living Will No August 12, 2024 12:53pm Power of Flour Broker No August 12 12:53pm Advance Directives No August 12 12:53pm Advance Directive Response Recorded Date/ Time Living Will No January 15, 2024 12:48pm Do you have a Healthcare Power of Flour Broker? No January 15, 2024 12:48pm Advance Directives on File Yes August 12, 2024 12:53pm Living Will No August 12, 2024 12:53pm Do you have a Healthcare Power of Flour Broker? No August 12, 2024 12:53pm Advance Directives No August 12 12:53pm Advance Directive Response Recorded Date/ Time Living Will No January 15, 2024 12:48pm Do you have a Healthcare Power of Flour Broker? No January 15, 2024 12:48pm Advance Directives on File Yes September 02, 2024 12:37pm Living Will No September 02, 2024 12:37pm Do you have a Healthcare Power of Flour Broker? No September 02, 2024 12:37pm Advance Directives No September 02 12:37pm Advance Directive Response Recorded Date/ Time Advance Directives on File Yes October 142024 11:24am Living Will No October 14, 2024 11 :24am Do you have a Healthcare Power of Flour Broker? No October 14, 2024 11:24am Advance Directives No October 14, 2024 11:24am Advance Directive Response Recorded Date/ Time Advance Directives on File Yes October 082024 12:35pm Living Will No November 04, 2024 1 2:35pm Do you have a Healthcare Power of Flour Broker? No November 04, 2024 12:35pm Advance Directives No November 04 12:35pm Advance Directive Response Recorded Date/ Time Advance Directives on File Yes November 25, 2024 12:40pm Living Will No November 25, 2024 12:40pm Do you have a Healthcare Power of Flour Broker? No November 25, 2024 12:40pm Advance Directives No November 25 12:40pm Advance Directive Response Recorded Date/ Time Advance Directives on File Yes December 16, 2024 11:57am Living Will No December 16, 2024 11:57am Do you have a Healthcare Power of Flour Broker? No December 16, 2024 11:57am Advance Directives No December 16 11:57am Advance Directive Response Recorded Date/ Time Advance Directives on File Yes January 06, 2025 12:40pm Living Will No January 06, 2025 12:40pm Do you have a Healthcare Power of Flour Broker? No January 06, 2025 12:40pm Advance Directives No January 06 12:40pm Advance Directive Response Recorded Date/ Time Advance Directives on File Yes Connor 2024 9:20am Living Will No January 27 9:20am Do you have a Healthcare Power of Flour Broker? No January 27, 2025 9:20am Advance Directives No January 27, 2025 9:20am Advance Directive Response Recorded Date/ Time Advance Directives on File Yes Rosey guy 2024 12:44pm Living Will No February 17, 2025 12:44pm Do you have a Healthcare Power of Flour Broker? No February 17, 2025 12:44pm Advance Directives No February 12:44pm Chief Complaint and Reason for Visit Chief [...] in left knee (STAT) Apr 2024 2:47pm Reason for Visit Admit Date Breast [...] Pain in left knee (STAT) Sep 2:47pm [facility] [place] September 23, 2024 [...] ent for malignancy November 25, 2024 10:48am Chief Complaint Admit Date [facility] [place] [...] FOR LABS) [place] November 25, 2024 10:48am ACCESS FOR PET SCAN December 02, 2024 6:48 am Chief Complaint Admit Date Encounter for therapeutic drug level mon itoring [...] LABS [place] November 04, 2024 10:45 am [facility](DO NOT WAIT FOR LABS) [place] November 25, 2024 10:48am ACCESS FOR PET SCAN December 02, 2024 6:48 am [facility] [place] REVIEW PET December 16, 2024 10:42am Reason for Visit Admit Date Encounter for monoclonal antibody treatm ent for malignancy September 02, 2024 11:33am Breast cancer September 02, 2024 11: 33am Encounter for monoclonal antibody treatm ent for malignancy September 23, 2024 10:30am Breast cancer September 23, 2024 10: 30am Encounter for monoclonal antibody treatm ent for malignancy October 14, 2024 9:56am Breast cancer October 14, 2024 9:56am Encounter for monoclonal antibody treatm ent for malignancy November 04, 2024 10:45am Wheal November 04, 2024 10:45 am Breast cancer November 04, 2024 10:45 am Encounter for monoclonal antibody treatm ent for malignancy November 25, 2024 10:48am Breast cancer November 25, 2024 10:4 8am Encounter for monoclonal antibody treatm ent for malignancy December 16, 2024 10:42am Breast cancer December 16, 2024 10:4 2am Chief Complaint Admit Date Encounter for therapeutic drug level mon itoring [...] LABS [place] November 04, 2024 10:45 am [facility](DO NOT WAIT FOR LABS) [place] November 25, 2024 10:48am ACCESS FOR PET SCAN December 02, 2024 6:48 am [facility] [place] REVIEW PET December 16, 2024 10:42am [facility] [place] December 16, 2024 12:0 0pm DISCUSS WEIGHT LOSS MEDS December 29, 2024 7:29am Chief Complaint Admit Date LLE M25.562 Pain in left knee (STAT) Apr il 2024 2:47pm LT LEG PAIN September 17, 2024 2:5 7pm [facility] [place] September 23, 2024 10: 30am [facility] [place] October 14, 2024 9:56am CONCERN FOR UTI October 26, 2024 11:04 am [facility] [place] November 04, 2024 10:45 am [facility](DO NOT WAIT FOR LABS) [place] November 25, 2024 10:48am ACCESS FOR PET SCAN December 02, 2024 6:48 am [facility] [place] REVIEW PET December 16, 2024 10:42am [facility] [place] December 16, 2024 12:0 0pm DISCUSS WEIGHT LOSS MEDS December 29, 2024 7:29am INJECTION TRAINING January 04, 2025 7:59 am Reason for Visit Admit Date Encounter for monoclonal antibody treatm ent for malignancy September 23, 2024 10:30am Breast cancer September 23, 2024 10: 30am Encounter for monoclonal antibody treatm ent for malignancy October 14, 2024 9:56am Breast cancer October 14, 2024 9:56am Encounter for monoclonal antibody treatm ent for malignancy November 04, 2024 10:45am Wheal November 04, 2024 10:45 am Breast cancer November 04, 2024 10:45 am Encounter for monoclonal antibody treatm ent for malignancy November 25, 2024 10:48am Breast cancer November 25, 2024 10:4 8am Encounter for monoclonal antibody treatm ent for malignancy December 16, 2024 10:42am Breast cancer December 16, 2024 10:4 2am Obesity December 29, 2024 7:29 am Chief Complaint Admit Date LLE M25.562 Pain in left knee (STAT) Sep 2:47pm LT LEG PAIN September 17, 2024 2:5 7pm [facility] [place] September 23, 2024 10: 30am [facility] [place] October 14, 2024 9:56am CONCERN FOR UTI October 26, 2024 11:04 am [facility] [place] November 04, 2024 10:45 am [facility](DO NOT WAIT FOR LABS) [place] November 25, 2024 10:48am ACCESS FOR PET SCAN December 02, 2024 6:48 am [facility] [place] REVIEW PET December 16, 2024 10:42am DISCUSS WEIGHT LOSS MEDS December 29, 2024 7:29am INJECTION TRAINING January 04, 2025 7:59 am [facility] [place] January 06, 2025 10:4 5am [facility] [place] January 06, 2025 10:4 8am Reason for Visit Admit Date Encounter for monoclonal antibody treatm ent for malignancy September 23, 2024 10:30am Breast cancer September 23, 2024 10: 30am Encounter for monoclonal antibody treatm ent for malignancy October 14, 2024 9:56am Breast cancer October 14, 2024 9:56am Encounter for monoclonal antibody treatm ent for malignancy November 04, 2024 10:45am Wheal November 04, 2024 10:45 am Breast cancer November 04, 2024 10:45 am Encounter for monoclonal antibody treatm ent for malignancy November 25, 2024 10:48am Breast cancer November 25, 2024 10:4 8am Encounter for monoclonal antibody treatm ent for malignancy December 16, 2024 10:42am Breast cancer December 16, 2024 10:4 2am Obesity December 29, 2024 7:29 am Encounter for monoclonal antibody treatm ent for malignancy January 06, 2025 10:48am Pruritus January 06, 2025 10:4 8am Breast cancer January 06, 2025 10:4 8am Chief Complaint Admit Date [facility] [place] October 14, 2024 9:56am CONCERN FOR UTI October 26, 2024 11:04 am [facility] [place] November 04, 2024 10:45 am [facility](DO NOT WAIT FOR LABS) [place] November 25, 2024 10:48am ACCESS FOR PET SCAN December 02, 2024 6:48 am [facility] [place] REVIEW PET December 16, 2024 10:42am DISCUSS WEIGHT LOSS MEDS December 29, 2024 7:29am INJECTION TRAINING January 04, 2025 7:59 am [facility] [place] January 06, 2025 10:4 8am [facility] [place] January 27, 2025 7: 45am [facility] [place] January 27, 2025 7: 48am Reason for Visit Admit Date Encounter for monoclonal antibody treatm ent for malignancy October 14, 2024 9:56am Breast cancer October 14, 2024 9:56am Encounter for monoclonal antibody treatm ent for malignancy November 04, 2024 10:45am Wheal November 04, 2024 10:45 am Breast cancer November 04, 2024 10:45 am Encounter for monoclonal antibody treatm ent for malignancy November 25, 2024 10:48am Breast cancer November 25, 2024 10:4 8am Encounter for monoclonal antibody treatm ent for malignancy December 16, 2024 10:42am Breast cancer December 16, 2024 10:4 2am Obesity December 29, 2024 7:29 am Encounter for monoclonal antibody treatm ent for malignancy January 06, 2025 10:48am Pruritus January 06, 2025 10:4 8am Breast cancer January 06, 2025 10:4 8am Chief Complaint Admit Date [facility] [place] October 14, 2024 9:56am CONCERN FOR UTI October 26, 2024 11:04 am [facility] [place] November 04, 2024 10:45 am [facility](DO NOT WAIT FOR LABS) [place] November 25, 2024 10:48am ACCESS FOR PET SCAN December 02, 2024 6:48 am [facility] [place] REVIEW PET December 16, 2024 10:42am DISCUSS WEIGHT LOSS MEDS December 29, 2024 7:29am INJECTION TRAINING January 04, 2025 7:59 am [facility] [place] January 06, 2025 10:4 8am [facility] [place] January 27, 2025 7: 45am [facility] [place] January 27, 2025 7: 48am 4 week f/u zepbound February 02, 2025 11 :31am Reason for Visit Admit Date Encounter for monoclonal antibody treatm ent for malignancy October 14, 2024 9:56am Breast cancer October 14, 2024 9:56am Encounter for monoclonal antibody treatm ent for malignancy November 04, 2024 10:45am Wheal November 04, 2024 10:45 am Breast cancer November 04, 2024 10:45 am Encounter for monoclonal antibody treatm ent for malignancy November 25, 2024 10:48am Breast cancer November 25, 2024 10:4 8am Encounter for monoclonal antibody treatm ent for malignancy December 16, 2024 10:42am Breast cancer December 16, 2024 10:4 2am Obesity December 29, 2024 7:29 am Encounter for monoclonal antibody treatm ent for malignancy January 06, 2025 10:48am Pruritus January 06, 2025 10:4 8am Breast cancer January 06, 2025 10:4 8am Encounter for monoclonal antibody treatm ent for malignancy January 27, 2025 7:48am Pruritus January 27, 2025 7: 48am Breast cancer January 27, 2025 7: 48am Chief Complaint Admit Date CONCERN FOR UTI October 26, 2024 11:04 am [facility] [place] November 04, 2024 10:45 am [facility](DO NOT WAIT FOR LABS) [place] November 25, 2024 10:48am ACCESS FOR PET SCAN December 02, 2024 6:48 am [facility] [place] REVIEW PET December 16, 2024 10:42am DISCUSS WEIGHT LOSS MEDS December 29, 2024 7:29am INJECTION TRAINING January 04, 2025 7:59 am [facility] [place] January 06, 2025 10:4 8am [facility] [place] January 27, 2025 7: 48am 4 week f/u zepbound February 02, 2025 11 :31am [facility] [place] February 17, 2025 11:26am [facility] [place] February 17, 2025 12:00pm Reason for Visit Admit Date Encounter for monoclonal ant ibody treatment for malignancy November 04, 2024 10:45am Wheal November 04, 2024 10:45 am Breast cancer November 04, 2024 10:45 am Encounter for monoclonal ant ibody treatment for malignancy November 25, 2024 10:48am Breast cancer November 25, 2024 10:4 8am Encounter for monoclonal ant ibody treatment for malignancy December 16, 2024 10:42am Breast cancer December 16, 2024 10:4 2am Obesity December 29, 2024 7:29 am Encounter for monoclonal ant ibody treatment for malignancy January 06, 2025 10:48am Pruritus January 06, 2025 10:4 8am Breast cancer January 06, 2025 10:4 8am Encounter for monoclonal ant ibody treatment for malignancy January 27, 2025 7:48am Pruritus January 27, 2025 7: 48am Breast cancer January 27, 2025 7: 48am Acute mastitis of left breast January 11:31am Low back pain February 02, 2025 11 :31am Obesity February 02, 2025 11 :31am Encounter for monoclonal ant ibody treatment for malignancy Shazia 11th, 2025 11:26am Breast cancer February 17, 2025 11:26am Chief Complaint Admit Date [facility](DO NOT WAIT FOR LABS) [place] November 25, 2024 10:48am ACCESS FOR PET SCAN December 02, 2024 6:48 am [facility] [place] REVIEW PET December 16, 2024 10:42am DISCUSS WEIGHT LOSS MEDS December 29, 2024 7:29am INJECTION TRAINING January 04, 2025 7:59 am [facility] [place] January 06, 2025 10:4 8am [facility] [place] January 27, 2025 7: 48am 4 week f/u zepbound February 02, 2025 11 :31am [facility] [place] February 17, 2025 11:26am 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 MANAGER 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 THERAPY March 08 7:55am [facility] [place] March 10, 2025 10 :14am [facility] [place] March 10, 2025 10 :15am Reason for Visit Admit Date Encounter for monoclonal ant ibody treatment for malignancy November 25, 2024 10:48am Breast cancer November 25, 2024 10:4 8am Encounter for monoclonal ant ibody treatment for malignancy December 16, 2024 10:42am Breast cancer December 16, 2024 10:4 2am Obesity December 29, 2024 7:29 am Encounter for monoclonal ant ibody treatment for malignancy January 06, 2025 10:48am Pruritus January 06, 2025 10:4 8am Breast cancer January 06, 2025 10:4 8am Encounter for monoclonal ant ibody treatment for malignancy January 27, 2025 7:48am Pruritus January 27, 2025 7: 48am Breast cancer January 27, 2025 7: 48am Acute mastitis of left breast January 11:31am Low back pain February 02, 2025 11 :31am Obesity February 02, 2025 11 :31am Encounter for monoclonal ant ibody treatment for malignancy February 17, 2025 11:26am Breast cancer February 17, 2025 11:26am Encounter for monoclonal ant ibody treatment for malignancy March 10, 2025 10:14am Breast cancer March 10, 2025 10 :14am Additional Source Comments INFORMATION SOURCE (unrecogn ized section and content) DATE CREATED AUTHOR 12/02/2017 [facility] DATE CREATED AUTHOR AUTHOR'S ORGANIZ ATION 10/21/2022 [facility] DATE CREATED AUTHOR AUTHOR'S ORGANIZ ATION 05/04/2023 [facility] ([place]) DATE CREATED AUTHOR AUTHOR'S ORGANIZ ATION 10/31/2023 [facility] DATE CREATED AUTHOR AUTHOR'S ORGANIZ ATION 03/28/2025 [facility] Care Team (unrecognized sect ion and content) Care Team Personnel Name: Maranda Ambrosio Clertahmina Ward PT Position: P3 Scheduling - Manager Electronic Advanced Member Role: Other Name: MAIDA KIM MOLDING MACHINE OPERATOR HELPER-ATHLETICS TEACHER Position: P4 Advanced Practice Nurse Member Role: Primary Care Physician Address: Address: [address] [place] [address]- Care Team Related Persons Name: PABLO RUSSELL Name: MIKHAIL JOHNSON Address: Home [address] [place] [address] [address] [place], [place] [id number] [place] Care Teams (unrecognized sec tion and content) Team Status: Active Member Role Status Dates Maida Kim MANAGER FIBER, MANAGER FIBER-C Family Provider Active Maida Kim NP, MANAGER FIBER-C Primary Care Provider Active Team Status: Inactive Member Role Status Dates Maida Kim NP, MANAGER FIBER-C Primary Care Provider, Referri ng Provider Active Blue BERMUDEZ, [place] Attending Provider Active Team Status: Inactive Member Role Status Carey Kim NP, MANAGER FIBER-C Primary Care Provider, Referri ng Provider Active Dr. Josh Wolfe MD Attending Provider Active Team Status: Inactive Member Role Status Dates Maida Kim NP, MANAGER FIBER-C Primary Care Provider, Referri ng Provider Active Dr. Cristóbal Ford MD Attending Provider Active Team Status: Active Member Role Status Dates Maida Kim NP, MANAGER FIBER-C Primary Care Provider Active Dr. Josh Wolfe MD Attending Provid er, Referring Provider, Other Provider Active Dr. Cristóbal Ford MD Other Provider Active Team Status: Active Member Role Status Dates Maida Kim NP, MANAGER FIBER-C Primary Care Provider Active Dr. Jey Mackenzie MD Attending Provider Active Team Status: Inactive Member Role Status Dates Maida Kim NP, MANAGER FIBER-C Primary Care Provider, Referri ng Provider Active Genna Zuniga MANAGER FIBER, MANAGER FIBER-C Attending Provider Active Team Status: Inactive Member Role Status Carey Kim MANAGER FIBER, MANAGER FIBER-C Primary Care Provider, Attendi ng Provider Active Team Status: Inactive Member Role Status Carey Kim MANAGER FIBER, MANAGER FIBER-C Primary Care Pro vider, Attending Provider, Referring Provider Active Team Status: Inactive Member Role Status Carey Kim MANAGER FIBER, MANAGER FIBER-C Primary Care Provider Active Dr. Joaquín Ng MD Attending Provider, Emergency Provi winter Active Team Status: Inactive Member Role Status Carey Kim MANAGER FIBER, MANAGER FIBER-C Primary Care Provider Active Dr. Josh Wolfe MD Attending Provider, Referring Provider Active Team Status: Active Member Role Status Carey Kim MANAGER FIBER, MANAGER FIBER-C Primary Care Provider Active Dr. Cristóbal Ford MD Attending Provider, Referring Pro vider Active Team Status: Inactive Member Role Status Carey Kim MANAGER FIBER, MANAGER FIBER-C Primary Care Provider Active Dr. Cristóbal Ford MD Attending Provider, Referring Pro vider Active Team Status: Inactive Member Role Status Carey Kim MANAGER FIBER, MANAGER FIBER-C Primary Care Provider Active Dr. Cristóbal Ford MD Attending Provider Active Team Status: Inactive Member Role Status Carey Kim MANAGER FIBER, MANAGER FIBER-C Primary Care Provider Active Dr. Josh Wolfe MD Attending Provider, Referring Provider Active Dr. Cristóbal Ford MD Other Provider Active Team Status: Inactive Member Role Status Carey Kim MANAGER FIBER, MANAGER FIBER-C Primary Care Provider Active Genna Zuniga MANAGER FIBER, MANAGER FIBER-C Attending Provider, Referring Provider Active Team Status: Active Member Role Status Carey Kim MANAGER FIBER, MANAGER FIBER-C Primary Care Provider Active Dr. Josh Wolfe MD Attending Provider Active Team Status: Inactive Member Role Status Carey Kim MANAGER FIBER, MANAGER FIBER-C Primary Care Provider, Referri ng Provider Active Dr. Cristóbal Ford MD Active Genna Zuniga MANAGER FIBER, MANAGER FIBER-C Attending Provider Active Team Status: Inactive Member Role Status aCrey Kim MANAGER FIBER, MANAGER FIBER-C Primary Care Provider Active Genna Zuniga MANAGER FIBER, MANAGER FIBER-C Attending Provider Active Team Status: Active Member Role Status Carey Kim NP, MANAGER FIBER-C Primary Care Provider Active Dr. Josh Wolfe MD Attending Provider Active Dr. Cristóbal Ford MD Referring Provider Active Vender Relationship Specialty Start Date End Date Maida Kim COCONUT JELLY ROLLER [address] [place] [address] PCP - General Family Medicine 09/24/22 Josh Mancuso MD [address], [address] [place] [id number] Oncologist Medical Oncology 09/23/22 Paige Coronado, MOLDING MACHINE OPERATOR HELPER-ATHLETICS TEACHER [address] [place], [place] [id number] Nurse Practitioner Medical Oncology 09/23/22 Cristóbal Ford MB/ERIC [address] [place] [id number] Hematology 09/23/22 Laurel Tomas, [place] Registered Nurse Medical Oncology 09/24/22 Team Status: Active Member Role Status Dates Maida Kim MANAGER FIBER, MANAGER FIBER-C Primary Care Provider Active Dr. Jesus Varma MD Attending Provider Active Team Status: Active Member Role Status Dates Maida Kim MANAGER FIBER, MANAGER FIBER-C Primary Care Provider Active Dr. Harjinder Peters MD Attending Provider Active Team Status: Inactive Member Role Status Dates Maida Kim MANAGER FIBER, MANAGER FIBER-C Primary Care Provider, Referri ng Provider Active Genna Zuniga MANAGER FIBER, MANAGER FIBER-C Active Dr. Cristóbal Ford MD Attending Provider Active Team Status: Active Member Role Status Dates Maida Kim NP, MANAGER FIBER-C Primary Care Provider Active Dr. Harjinder Peters MD Attending Provider Active Dr. Cristóbal Ford MD Referring Provider Active Team Status: Active Member Role Status Dates Maida Kim NP, MANAGER FIBER-C Primary Care Provider Active Dr. Emelia Carrington MD Attending Provider Active Team Status: Active Member Role Status Dates Maida Kim MANAGER FIBER, MANAGER FIBER-C Primary Care Provider Active Liliane Hall Attending Provider Active Vender Relationship Specialty Start Date End Date [facility] [address] [place] [address] PCP - General 05/13/23 Vender Relationship Specialty Start Date End Date [facility] [address] [place] [address] PCP - General 05/13/23 Team Status: Inactive Member Role Status Dates Maida Kim MANAGER FIBER, MANAGER FIBER-C Primary Care Provider, Referri ng Provider Active Dr. Jesus Varma MD Attending Provider Active Team Status: Inactive Member Role Status Dates Maida Kim MANAGER FIBER, MANAGER FIBER-C Primary Care Provider Active Dr. Jesus Varma MD Attending Provider, Referring Pro vider Active Vender Relationship Specialty Start Date End Date [facility] [address] [place] [address] PCP - General 05/13/23 Vender Relationship Specialty Start Date End Date Kaya Kimica Stephen [address] [place] [address] PCP - General Nurse Practitioner 09/26/23 Vender Relationship Specialty Start Date End Date Julio Maida S [address] [place] [address] PCP - General Nurse Practitioner 09/26/23 Vender Relationship Specialty Start Date End Date Kaya Kimica Stephen [address] [place] [address] PCP - General Nurse Practitioner 09/26/23 Team Status: Active Member Role Status Dates Blue Alicia PA, PA Primary Care Provider Active Team Status: Inactive Member Role Status Dates Maida Kim MANAGER FIBER, MANAGER FIBER-C Primary Care Provider Active Start: April 29, 2024 End: April 29, 2024 Maida Kim MANAGER FIBER, MANAGER FIBER-C Referring Provider Active Start: April 29, 2024 End: April 29, 2024 Genna Zuniga MANAGER FIBER, MANAGER FIBER-C Attending Provider Active Start: April 29, 2024 End: April 29, 2024 Team Status: Inactive Member Role Status Dates Maida Kim MANAGER FIBER, MANAGER FIBER-C Primary Care Provider Active Start: May 19, 2024 End: May 19, 2024 Genna Zuniga MANAGER FIBER, MANAGER FIBER-C Attending Provider Active Start: May 19, 2024 End: May 19, 2024 Genna Aleksander MANAGER FIBER, MANAGER FIBER-C Referring Provider Active Start: May 19, 2024 End: May 19, 2024 Team Status: Active Member Role Status Dates Maida Kim MANAGER FIBER, MANAGER FIBER-C Primary Care Provider Active Start: May 19, 2024 Dr. Jesus Varma MD Attending Provider Active S tart: May 19, 2024 Team Status: Inactive Member Role Status Dates Maida Kim MANAGER FIBER, MANAGER FIBER-C Primary Care Provider Active Start: May 20, 2024 End: May 20, 2024 Maida Kim MANAGER FIBER, MANAGER FIBER-C Referring Provider Active Start: May 20, 2024 End: May 20, 2024 Dr. Cristóbal Ford MD Attending Provider Active S tart: May 20, 2024 End: May 20, 2024 Team Status: Inactive Member Role Status Dates Maida Kim MANAGER FIBER, MANAGER FIBER-C Primary Care Provider Active Start: June 10, 2024 End: June 10, 2024 Maida Kim MANAGER FIBER, MANAGER FIBER-C Referring Provider Active Start: June 10, 2024 End: June 10, 2024 Dr. Cristóbal Ford MD Attending Provider Active S tart: June 10, 2024 End: June 10, 2024 Team Status: Inactive Member Role Status Dates Maida Kim MANAGER FIBER, MANAGER FIBER-C Primary Care Provider Active Start: June 15, 2024 End: June 15, 2024 Maida Kim MANAGER FIBER, MANAGER FIBER-C Referring Provider Active Start: June 15, 2024 End: June 15, 2024 Dr. Cristóbal Ford MD Attending Provider Active S tart: June 15, 2024 End: June 15, 2024 Team Status: Inactive Member Role Status Dates Maida Kim MANAGER FIBER, MANAGER FIBER-C Primary Care Provider Active Start: June 16, 2024 End: June 16, 2024 Maida Kim MANAGER FIBER, MANAGER FIBER-C Referring Provider Active Start: June 16, 2024 End: June 16, 2024 Dr. Yvonne Hinojosa MD Attending Provider Active Start: June 16, 2024 End: June 16, 2024 Team Status: Inactive Member Role Status Dates Maida Kim MANAGER FIBER, MANAGER FIBER-C Primary Care Provider Active Start: June 16, 2024 End: June 16, 2024 Dr. Yvonne Hinojosa MD Attending Provider Active Start: June 16, 2024 End: June 16, 2024 Dr. Yvonne Hinojosa MD Referring Provider Active Start: June 16, 2024 End: June 16, 2024 Team Status: Inactive Member Role Status Dates Maida Kim MANAGER FIBER, MANAGER FIBER-C Referring Provider Active Start: June 23, 2024 [...] 2024 End: July 05, 2024 Dr. Cristóbal Fodr MD Referring Provider Active S tart: July 05, 2024 End: July 05, 2024 Team Status: Inactive Member Role Status Dates Blue Alicia PA, PA Primary Care Provider Active Start: July 22, 2024 End: July 22, 2024 Blue Alicia PA, PA Referring Provider Active St art: July 22, 2024 End: July 22, 2024 Genna Zuniga MANAGER FIBER, MANAGER FIBER-C Attending Provider Active Start: July 22, 2024 End: July 22, 2024 Team Status: Inactive Member Role Status Dates Blue Alicia PA, PA Primary Care Provider Active Start: July 22, 2024 End: July 22, 2024 Genna Zuniga MANAGER FIBER, MANAGER FIBER-C Attending Provider Active Start: July 22, 2024 End: July 22, 2024 Genna Zuniga MANAGER FIBER, MANAGER FIBER-C Referring Provider Active Start: July 22, 2024 End: July 22, 2024 Team Status: Active Member Role Status Dates Maida Kim MANAGER FIBER, MANAGER FIBER-C Primary Care Provider Active Start: August 12, 2024 Dr. Cristóbal Ford MD Attending Provider Active S tart: August 12, 2024 Dr. Cristóbal Ford MD Referring Provider Active S tart: August 12, 2024 Genna Zuniga MANAGER FIBER, MANAGER FIBER-C Other Provider Active St art: August 12, 2024 Team Status: Inactive Member Role Status Dates Dr. Cristóbal Ford MD Attending Provider Active S tart: August 12, 2024 End: August 12, 2024 Blue Alicia PA, PA Primary Care Provider Active Start: August 12, 2024 End: August 12, 2024 Blue BERMUDEZ, PA Referring Provider Active St art: August [...] Status: Active Member Role Status Dates Blue BERMUDEZ, PA [...] 31, 2024 End: August 31, 2024 Genna Zuniga MANAGER FIBER, MANAGER FIBER-C Attending Provider Active Start: August 31, 2024 End: August 31, 2024 Genna Zuniga MANAGER FIBER, MANAGER FIBER-C Referring Provider Active Start: August 31, 2024 End: August 31, 2024 Team Status: Active Member Role Status Dates Blue BERMUDEZ, PA Primary Care Provider Active Start: August 31, 2024 Dr. Jesus Varma MD Attending Provider Active S tart: August 31, 2024 Team Status: Inactive Member Role Status Dates Dr. Cristóbal Ford MD Attending Provider Active S tart: September 02, 2024 End: September 02, 2024 Blue Alicia PA, PA Primary Care Provider Active Start: September 02, 2024 End: September 02, 2024 Blue BERUMDEZ, PA Referring Provider Active St art: September 02, 2024 End: September 02, 2024 Team Status: Active Member Role Status Dates Maida Kim MANAGER FIBER, MANAGER FIBER-C Primary Care Provider Active Start: September 02, 2024 Dr. Cristóbal Ford MD Attending Provider Active S tart: September 02, 2024 Dr. Cristóbal Ford MD Referring Provider Active S tart: September 02, 2024 Genna Zuniga MANAGER FIBER, MANAGER FIBER-C Other Provider Active St art: September 02, [...] PA, PA Primary Care Provider Active Start: September 23, 2024 End: September 23, 2024 Blue Alicia PA, PA Referring Provider Active St art: September 23, 2024 End: September 23, 2024 Genna Zuniga MANAGER FIBER, MANAGER FIBER-C Attending Provider Active Start: September 23, 2024 End: September 23, 2024 Team Status: Inactive Member Role Status Dates Blue Alicia PA, PA Primary Care Provider Active Start: October 14, 2024 End: October 14, 2024 Blue Alicia PA, PA Referring Provider Active St art: October 14, 2024 End: October 14, 2024 Genna Zuniga MANAGER FIBER, MANAGER FIBER-C Attending Provider Active Start: October 14, 2024 End: October 14, 2024 Team Status: Active Member Role Status Dates Maida Kim MANAGER FIBER, MANAGER FIBER-C Primary Care Provider Active Start: October 14, 2024 Dr. Cristóbal Ford MD Referring Provider Active S tart: October 14, 2024 Genna Zuniga MANAGER FIBER, MANAGER FIBER-C Attending Provider Active Start: October 14, 2024 Genna Zuniga MANAGER FIBER, MANAGER FIBER-C Other Provider Active St art: October 14, 2024 Team Status: Inactive Member Role Status Dates Blue BERMUDEZ PA Primary Care Provider Active Start: October 26, 2024 End: October 26, 2024 Blue BERMUDEZ PA Referring Provider Active St art: October 26, 2024 End: October 26, 2024 Dain Vaughn PA PA Attending Provider Active Start: October 26, [...] 26, 2024 End: October 26, 2024 Dain Vaughn PA PA Attending Provider Active Start: October 26, 2024 End: October 26, 2024 Dain Vaughn PA PA Referring Provider Active Start: October 26, 2024 End: October 26, 2024 Team Status: Active Member Role Status Dates Maida Kim MANAGER FIBER, MANAGER FIBER-C Primary Care Provider Active Start: November 04, 2024 Dr. Cristóbal Ford MD Referring Provider Active S tart: November 04, 2024 Genna Zuniga MANAGER FIBER, MANAGER FIBER-C Attending Provider Active Start: November 04, 2024 Genna Zuniga MANAGER FIBER, MANAGER FIBER-C Other Provider Active St art: November 04, 2024 Team Status: Inactive Member Role Status Dates Blue BERMUDEZ PA Primary Care Provider Active Start: November 04, 2024 End: November 04, 2024 Blue BERMUDEZ PA Referring Provider Active St art: November 04, 2024 End: November 04, 2024 Dr. Cristóbal Ford MD Attending Provider Active S tart: November 04, 2024 End: November 04, 2024 Team Status: Active Member Role Status Dates Maida Marcus Hook MANAGER FIBER, MANAGER FIBER-C Primary Care Provider Active Start: November 25, 2024 Dr. Cristóbal oFrd MD Referring Provider Active S tart: November 25, 2024 Genna Zuniga MANAGER FIBER, MANAGER FIBER-C Attending Provider Active Start: November 25, 2024 Genna Zuniga MANAGER FIBER, MANAGER FIBER-C Other Provider Active St art: November 25, 2024 Team Status: Inactive Member Role Status Dates Blue Alicia PA, PA Primary Care Provider Active Start: November 25, 2024 End: November 25, 2024 Blue Alicia PA, PA Referring Provider Active St art: November 25, 2024 End: November 25, 2024 Dr. Cristóbal Ford MD Attending Provider Active S tart: November 25, 2024 End: November 25, 2024 Team Status: Active Member Role/Relationship Status Dates Blue Alicia PA, PA Primary Care Provider Active Team Status: Inactive Member Role/Relationship Status Dates Dr. Cristóbal Ford MD Attending Provider Active S tart: August 12, 2024 End: August 12, 2024 Blue Alicia PA, PA Primary Care Provider Active Start: August 12, 2024 End: August 12, 2024 Blue Alicia PA, PA Referring Provider Active St art: August 12, 2024 End: August 12, 2024 Team Status: Inactive Member Role/Relationship Status Dates Blue Alicia PA, PA Primary Care Provider Active Start: August 12, 2024 End: August 12, 2024 Dr. Dain Serrano MD Attending Provider Active Start: August 12, 2024 End: August 12, 2024 Dr. Dain Serrano MD Referring Provider Active Start: August 12, 2024 End: August 12, 2024 Team Status: Inactive Member Role/Relationship Status Dates Blue Alicia PA, PA Primary Care Provider Active Start: August 17, 2024 End: August 17, 2024 Carly Carrasquillo PA, PA Attending Provider Active Start: August 17, 2024 End: August 17, 2024 Carly Carrasquillo PA, PA Referring Provider Active Start: August 17, 2024 End: August 17, 2024 Team Status: Inactive Member Role/Relationship Status Dates Blue Alicia PA, PA Primary Care Provider Active Start: August 31, 2024 End: August 31, 2024 Genna Zuniga MANAGER FIBER, MANAGER FIBER-C Attending Provider Active Start: August 31, 2024 End: August 31, 2024 Genna Zuniga MANAGER FIBER, MANAGER FIBER-C Referring Provider Active Start: August 31, 2024 End: August 31, 2024 Team Status: Active Member Role/Relationship Status Dates Blue Alicia PA, PA Primary Care Provider Active Start: August 31, 2024 Dr. Jesus Varma MD Attending Provider Active S tart: August 31, 2024 Team Status: Inactive Member Role/Relationship Status Dates Dr. Cristóbal Ford MD Attending Provider Active S tart: September 02, 2024 End: September 02, 2024 Blue Alicia PA, PA Primary Care Provider Active Start: September 02, 2024 End: September 02, 2024 Blue Alicia PA, PA Referring Provider Active St art: September 02, 2024 End: September 02, 2024 Team Status: Inactive Member Role/Relationship Status Dates Blue Alicia PA, PA Primary Care Provider Active Start: September 17, 2024 End: September 17, 2024 Dr. Dain Serrano MD Attending Provider Active Start: September 17, 2024 End: September 17, 2024 Dr. Dain Serrano MD Referring Provider Active Start: September 17, 2024 End: September 17, 2024 Team Status: Active Member Role/Relationship Status Dates Dr. Wyatt Patel MD Attending Provider Active Start: September 17, 2024 Dr. Dain Serrano MD Referring Provider Active Start: September 17, 2024 Team Status: Inactive Member Role/Relationship Status Dates Blue Alicia PA, PA Primary Care Provider Active Start: September 23, 2024 End: September 23, 2024 Blue Alicia PA, PA Referring Provider Active St art: September 23, 2024 End: September 23, 2024 Genna Zuniga MANAGER FIBER, MANAGER FIBER-C Attending Provider Active Start: September 23, 2024 End: September 23, 2024 Team Status: Inactive Member Role/Relationship Status Dates Blue Alicia PA, PA Primary Care Provider Active Start: October 14, 2024 End: October 14, 2024 Blue Alicia PA, PA Referring Provider Active St art: October 14, 2024 End: October 14, 2024 Genna Zuniga MANAGER FIBER, MANAGER FIBER-C Attending Provider Active Start: October 14, 2024 End: October 14, 2024 Team Status: Inactive Member Role/Relationship Status Dates Blue Alicia PA, PA Primary Care Provider Active Start: October 26, 2024 End: October 26, 2024 Blue Alicia PA, PA Referring Provider Active St art: October 26, 2024 End: October 26, 2024 Dain Vaughn PA, PA Attending Provider Active Start: October 26, 2024 End: October 26, 2024 Team Status: Inactive Member Role/Relationship Status Dates Blue Alicia PA, PA Primary Care Provider Active Start: October 26, 2024 End: October 26, 2024 Dain Vaughn PA, PA Attending Provider Active Start: October 26, 2024 End: October 26, 2024 Dani Vaughn PA, PA Referring Provider Active Start: October 26, 2024 End: October 26, 2024 Team Status: Inactive Member Role/Relationship Status Dates Blue Alicia PA, PA Primary Care Provider Active Start: November 04, 2024 End: November 04, 2024 Blue Alicia PA, PA Referring Provider Active St art: November 04, 2024 End: November 04, 2024 Dr. Cristóbal Ford MD Attending Provider Active S tart: November 04, 2024 End: November 04, 2024 Team Status: Active Member Role/Relationship Status Dates Maida Kim MANAGER FIBER, MANAGER FIBER-C Primary Care Provider Active Start: November 25, 2024 Dr. Cristóbal Ford MD Referring Provider Active S tart: November 25, 2024 Genna Zuniga MANAGER FIBER, MANAGER FIBER-C Attending Provider Active Start: November 25, 2024 Genna Zuniga MANAGER FIBER, MANAGER FIBER-C Other Provider Active St art: November 25, 2024 Team Status: Inactive Member Role/Relationship Status Dates Blue Alicia PA, PA Primary Care Provider Active Start: November 25, 2024 End: November 25, 2024 Blue Alicia PA, PA Referring Provider Active St art: November 25, 2024 End: November 25, 2024 Dr. Cristóbal Ford MD Attending Provider Active S tart: November 25, 2024 End: November 25, 2024 Team Status: Inactive Member Role/Relationship Status Dates Blue Alicia PA, PA Primary Care Provider Active Start: December 02, 2024 End: December 02, 2024 Dr. Cristóbal Ford MD Attending Provider Active S tart: December 02, 2024 End: December 02, 2024 Dr. Cristóbal Ford MD Referring Provider Active S tart: December 02, 2024 End: December 02, 2024 Team Status: Active Member Role/Relationship Status Dates Blue Alicia PA, PA Primary Care Provider Active Start: December 02, 2024 Dr. Jesus Varma MD Attending Provider Active S tart: December 02, 2024 Team Status: Inactive Member Role/Relationship Status Dates Blue Alicia PA, PA Primary Care Provider Active Start: August 31, 2024 End: August 31, 2024 Genna Zuniga MANAGER FIBER, MANAGER FIBER-C Attending Provider Active Start: August 31, 2024 End: August 31, 2024 Genna Zuniga MANAGER FIBER, MANAGER FIBER-C Referring Provider Active Start: August 31, 2024 End: August 31, 2024 Team Status: Active Member Role/Relationship Status Dates Blue Alicia PA, PA Primary Care Provider Active Start: August 31, 2024 Dr. Jesus Varma MD Attending Provider Active S tart: August 31, 2024 Team Status: Inactive Member Role/Relationship Status Dates Dr. Cristóbal Ford MD Attending Provider Active S tart: September 02, 2024 End: September 02, 2024 Blue Alicia PA, PA Primary Care Provider Active Start: September 02, 2024 End: September 02, 2024 Blue Alicia PA, PA Referring Provider Active St art: September 02, 2024 End: September 02, 2024 Team Status: Inactive Member Role/Relationship Status Dates Blue Alicia PA, PA Primary Care Provider Active Start: September 17, 2024 End: September 17, 2024 Dr. Dain Serrano MD Attending Provider Active Start: September 17, 2024 End: September 17, 2024 Dr. Dain Serrano MD Referring Provider Active Start: September 17, 2024 End: September 17, 2024 Team Status: Active Member Role/Relationship Status Dates Dr. Wyatt Patel MD Attending Provider Active Start: September 17, 2024 Dr. Dain Serrano MD Referring Provider Active Start: September 17, 2024 Team Status: Inactive Member Role/Relationship Status Dates Blue Alicia PA, PA Primary Care Provider Active Start: September 23, 2024 End: September 23, 2024 Blue Alicia PA, PA Referring Provider Active St art: September 23, 2024 End: September 23, 2024 Genna Zuniga MANAGER FIBER, MANAGER FIBER-C Attending Provider Active Start: September 23, 2024 End: September 23, 2024 Team Status: Inactive Member Role/Relationship Status Dates Blue Alicia PA, PA Primary Care Provider Active Start: October 14, 2024 End: October 14, 2024 Blue Alicia PA, PA Referring Provider Active St art: October 14, 2024 End: October 14, 2024 Genna Zuniga MANAGER FIBER, MANAGER FIBER-C Attending Provider Active Start: October 14, 2024 End: October 14, 2024 Team Status: Inactive Member Role/Relationship Status Dates Blue Alicia PA, PA Primary Care Provider Active Start: October 26, 2024 End: October 26, 2024 Blue Alicia PA, PA Referring Provider Active St art: October 26, 2024 End: October 26, 2024 Dain Vaughn PA, PA Attending Provider Active Start: October 26, 2024 End: October 26, 2024 Team Status: Inactive Member Role/Relationship Status Dates Blue Alicia PA, PA Primary Care Provider Active Start: October 26, 2024 End: October 26, 2024 Dain Vaughn PA, PA Attending Provider Active Start: October 26, 2024 End: October 26, 2024 Dain Vaughn PA, PA Referring Provider Active Start: October 26, 2024 End: October 26, 2024 Team Status: Inactive Member Role/Relationship Status Dates Blue Alicia PA, PA Primary Care Provider Active Start: November 04, 2024 End: November 04, 2024 Blue Alicia PA, PA Referring Provider Active St art: November 04, 2024 End: November 04, 2024 Dr. Cristóbal Ford MD Attending Provider Active S tart: November 04, 2024 End: November 04, 2024 Team Status: Inactive Member Role/Relationship Status Dates Blue Alicia PA, PA Primary Care Provider Active Start: November 25, 2024 End: November 25, 2024 Blue Alicia PA, PA Referring Provider Active St art: November 25, 2024 End: November 25, 2024 Dr. Cristóbal Ford MD Attending Provider Active S tart: November 25, 2024 End: November 25, 2024 Team Status: Inactive Member Role/Relationship Status Dates Blue Alicia PA, PA Primary Care Provider Active Start: December 02, 2024 End: December 02, 2024 Dr. Cristóbal Ford MD Attending Provider Active S tart: December 02, 2024 End: December 02, 2024 Dr. Cristóbal Ford MD Referring Provider Active S tart: December 02, 2024 End: December 02, 2024 Team Status: Active Member Role/Relationship Status Dates Blue Alicia PA, PA Primary Care Provider Active Start: December 02, 2024 Dr. Jesus Varma MD Attending Provider Active S tart: December 02, 2024 Team Status: Inactive Member Role/Relationship Status Dates Blue Alicia PA, PA Primary Care Provider Active Start: December 16, 2024 End: December 16, 2024 Blue Alicia PA, PA Referring Provider Active St art: December 16, 2024 End: December 16, 2024 Dr. Cristóbal Ford MD Attending Provider Active S tart: December 16, 2024 End: December 16, 2024 Team Status: Active Member Role/Relationship Status Dates Maida Kim MANAGER FIBER, MANAGER FIBER-C Primary Care Provider Active Start: December 16, 2024 Dr. Cristóbal Ford MD Referring Provider Active S tart: December 16, 2024 Genna Zuniga MANAGER FIBER, MANAGER FIBER-C Attending Provider Active Start: December 16, 2024 Genna Zuniga MANAGER FIBER, MANAGER FIBER-C Other Provider Active St art: December 16, 2024 Team Status: Inactive Member Role/Relationship Status Dates Blue Alicia PA, PA Primary Care Provider Active Start: December 29, 2024 End: December 29, 2024 Blue Alicia PA, PA Attending Provider Active St art: December 29, 2024 End: December 29, 2024 Blue Alicia PA, PA Referring Provider Active St art: December 29, 2024 End: December 29, 2024 Team Status: Inactive Member Role/Relationship Status Dates Blue Alicia PA, PA Primary Care Provider Active Start: September 17, 2024 End: September 17, 2024 Dr. Dain Serrano MD Attending Provider Active Start: September 17, 2024 End: September 17, 2024 Dr. Dain Serrano MD Referring Provider Active Start: September 17, 2024 End: September 17, 2024 Team Status: Active Member Role/Relationship Status Dates Dr. Wyatt Patel MD Attending Provider Active Start: September 17, 2024 Dr. Dain Serrano MD Referring Provider Active Start: September 17, 2024 Team Status: Inactive Member Role/Relationship Status Dates Blue Alicia PA, PA Primary Care Provider Active Start: September 23, 2024 End: September 23, 2024 Blue Alicia PA, PA Referring Provider Active St art: September 23, 2024 End: September 23, 2024 Genna Zuniga MANAGER FIBER, MANAGER FIBER-C Attending Provider Active Start: September 23, 2024 End: September 23, 2024 Team Status: Inactive Member Role/Relationship Status Dates Blue Alicia PA, PA Primary Care Provider Active Start: October 14, 2024 End: October 14, 2024 Blue Alicia PA, PA Referring Provider Active St art: October 14, 2024 End: October 14, 2024 Genna Zuniga MANAGER FIBER, MANAGER FIBER-C Attending Provider Active Start: October 14, 2024 End: October 14, 2024 Team Status: Inactive Member Role/Relationship Status Dates Blue Alicia PA, PA Primary Care Provider Active Start: October 26, 2024 End: October 26, 2024 Blue Alicia PA, PA Referring Provider Active St art: October 26, 2024 End: October 26, 2024 Dain Vaughn PA, PA Attending Provider Active Start: October 26, 2024 End: October 26, 2024 Team Status: Inactive Member Role/Relationship Status Dates Blue Alicia PA, PA Primary Care Provider Active Start: October 26, 2024 End: October 26, 2024 Dain Vaughn PA, PA Attending Provider Active Start: October 26, 2024 End: October 26, 2024 Dain Vaughn PA, PA Referring Provider Active Start: October 26, 2024 End: October 26, 2024 Team Status: Inactive Member Role/Relationship Status Dates Blue Alicia PA, PA Primary Care Provider Active Start: November 04, 2024 End: November 04, 2024 Blue Alicia PA, PA Referring Provider Active St art: November 04, 2024 End: November 04, 2024 Dr. Cristóbal Ford MD Attending Provider Active S tart: November 04, 2024 End: November 04, 2024 Team Status: Inactive Member Role/Relationship Status Dates Blue Alicia PA, PA Primary Care Provider Active Start: November 25, 2024 End: November 25, 2024 Blue Alicia PA, PA Referring Provider Active St art: November 25, 2024 End: November 25, 2024 Dr. Cristóbal Ford MD Attending Provider Active S tart: November 25, 2024 End: November 25, 2024 Team Status: Inactive Member Role/Relationship Status Dates Blue Alicia PA, PA Primary Care Provider Active Start: December 02, 2024 End: December 02, 2024 Dr. Cristóbal Ford MD Attending Provider Active S tart: December 02, 2024 End: December 02, 2024 Dr. Cristóbal Ford MD Referring Provider Active S tart: December 02, 2024 End: December 02, 2024 Team Status: Active Member Role/Relationship Status Dates Blue Alicia PA, PA Primary Care Provider Active Start: December 02, 2024 Dr. Jesus Varma MD Attending Provider Active S tart: December 02, 2024 Team Status: Inactive Member Role/Relationship Status Dates Blue Alicia PA, PA Primary Care Provider Active Start: December 16, 2024 End: December 16, 2024 Blue Alicia PA, PA Referring Provider Active St art: December 16, 2024 End: December 16, 2024 Dr. Cristóbal Ford MD Attending Provider Active S tart: December 16, 2024 End: December 16, 2024 Team Status: Active Member Role/Relationship Status Dates Maida Kim MANAGER FIBER, MANAGER FIBER-C Primary Care Provider Active Start: December 16, 2024 Dr. Cirstóbal Ford MD Referring Provider Active S tart: December 16, 2024 Genna Zuniga MANAGER FIBER, MANAGER FIBER-C Attending Provider Active Start: December 16, 2024 Genna Zuniga MANAGER FIBER, MANAGER FIBER-C Other Provider Active St art: December 16, 2024 Team Status: Inactive Member Role/Relationship Status Dates Blue Alicia PA, PA Primary Care Provider Active Start: December 29, 2024 End: December 29, 2024 Blue Alicia PA, PA Attending Provider Active St art: December 29, 2024 End: December 29, 2024 Blue Alicia PA, PA Referring Provider Active St art: December 29, 2024 End: December 29, 2024 Team Status: Inactive Member Role/Relationship Status Dates Blue Alicia PA, PA Primary Care Provider Active Start: January 04, 2025 End: January 04, 2025 Blue Alicia PA, PA Referring Provider Active St art: January 04, 2025 End: January 04, 2025 BIM NURSE Attending Provider Active Start: Ju ly 2024 End: January 04, 2025 Team Status: Inactive Member Role/Relationship Status Dates Blue Alicia PA, PA Primary Care Provider Active Start: December 29, 2024 End: December 29, 2024 Blue Alicia PA, PA Attending Provider Active St art: December 29, 2024 End: December 29, 2024 Blue Alicia PA, PA Referring Provider Active St art: December 29, 2024 End: December 29, 2024 Team Status: Inactive Member Role/Relationship Status Dates Blue Alicia PA, PA Primary Care Provider Active Start: January 04, 2025 End: January 04, 2025 Blue Alicia PA, PA Referring Provider Active St art: January 04, 2025 End: January 04, 2025 BIM NURSE Attending Provider Active Start: ly 2024 End: January 04, 2025 Team Status: Active Member Role/Relationship Status Dates Maida Kim MANAGER FIBER, MANAGER FIBER-C Primary Care Provider Active Start: January 06, 2025 Dr. Cristóbal Ford MD Referring Provider Active S tart: January 06, 2025 Genna Zuniga MANAGER FIBER, MANAGER FIBER-C Attending Provider Active Start: January 06, 2025 Genna Zuniga MANAGER FIBER, MANAGER FIBER-C Other Provider Active St art: January 06, 2025 Team Status: Inactive Member Role/Relationship Status Dates lBue Alicia PA, PA Primary Care Provider Active Start: January 06, 2025 End: January 06, 2025 Blue Alicia PA, PA Referring Provider Active St art: January 06, 2025 End: January 06, 2025 Dr. Cristóbal Ford MD Attending Provider Active S tart: January 06, 2025 End: January 06, 2025 Team Status: Inactive Member Role/Relationship Status Dates Blue Alicia PA, PA Primary Care Provider Active Start: October 14, 2024 End: October 14, 2024 Blue Alicia PA, PA Referring Provider Active St art: October 14, 2024 End: October 14, 2024 Genna Zuniga MANAGER FIBER, MANAGER FIBER-C Attending Provider Active Start: October 14, 2024 End: October 14, 2024 Team Status: Inactive Member Role/Relationship Status Dates Blue Alicia PA, PA Primary Care Provider Active Start: October 26, 2024 End: October 26, 2024 Blue Alicia PA, PA Referring Provider Active St art: October 26, 2024 End: October 26, 2024 Dain Vaughn PA, PA Attending Provider Active Start: October 26, 2024 End: October 26, 2024 Team Status: Inactive Member Role/Relationship Status Dates Blue Alicia PA, PA Primary Care Provider Active Start: October 26, 2024 End: October 26, 2024 Dain Vaughn PA, PA Attending Provider Active Start: October 26, 2024 End: October 26, 2024 Dain Vaughn PA, PA Referring Provider Active Start: October 26, 2024 End: October 26, 2024 Team Status: Inactive Member Role/Relationship Status Dates Blue Alicia PA, PA Primary Care Provider Active Start: November 04, 2024 End: November 04, 2024 Blue Alicia PA, PA Referring Provider Active St art: November 04, 2024 End: November 04, 2024 Dr. Cristóbal Ford MD Attending Provider Active S tart: November 04, 2024 End: November 04, 2024 Team Status: Inactive Member Role/Relationship Status Dates Blue Alicia PA, PA Primary Care Provider Active Start: November 25, 2024 End: November 25, 2024 Blue Alicia PA, PA Referring Provider Active St art: November 25, 2024 End: November 25, 2024 Dr. Cristóbal Ford MD Attending Provider Active S tart: November 25, 2024 End: November 25, 2024 Team Status: Inactive Member Role/Relationship Status Dates Blue Alicia PA, PA Primary Care Provider Active Start: December 02, 2024 End: December 02, 2024 Dr. Cristóbal Ford MD Attending Provider Active S tart: December 02, 2024 End: December 02, 2024 Dr. Cristóbal Ford MD Referring Provider Active S tart: December 02, 2024 End: December 02, 2024 Team Status: Active Member Role/Relationship Status Dates Blue Alicia PA, PA Primary Care Provider Active Start: December 02, 2024 Dr. Jesus Varma MD Attending Provider Active S tart: December 02, 2024 Team Status: Inactive Member Role/Relationship Status Dates Blue Alicia PA, PA Primary Care Provider Active Start: December 16, 2024 End: December 16, 2024 Blue Alicia PA, PA Referring Provider Active St art: December 16, 2024 End: December 16, 2024 Dr. Cristóbal Ford MD Attending Provider Active S tart: December 16, 2024 End: December 16, 2024 Team Status: Inactive Member Role/Relationship Status Dates Blue Alicia PA, PA Primary Care Provider Active Start: December 29, 2024 End: December 29, 2024 Blue Alicia PA, PA Attending Provider Active St art: December 29, 2024 End: December 29, 2024 Blue Alicia PA, PA Referring Provider Active St art: December 29, 2024 End: December 29, 2024 Team Status: Inactive Member Role/Relationship Status Dates Blue Alicia PA, PA Primary Care Provider Active Start: January 04, 2025 End: January 04, 2025 Blue Alicia PA, PA Referring Provider Active St art: January 04, 2025 End: January 04, 2025 Maida Jones MANAGER FIBER-C Attending Provider Active Start: January 04, 2025 End: January 04, 2025 Team Status: Inactive Member Role/Relationship Status Dates Blue Alicia PA, PA Primary Care Provider Active Start: January 06, 2025 End: January 06, 2025 Blue Alicia PA, PA Referring Provider Active St art: January 06, 2025 End: January 06, 2025 Dr. Cristóbal Ford MD Attending Provider Active S tart: January 06, 2025 End: January 06, 2025 Team Status: Active Member Role/Relationship Status Dates Maida Kim MANAGER FIBER, MANAGER FIBER-C Primary Care Provider Active Start: January 27, 2025 Dr. Cristóbal Ford MD Referring Provider Active S tart: January 27, 2025 Genna Zuniga NP, MANAGER FIBER-C Attending Provider Active Start: January 27, 2025 Genna Zuniga MANAGER FIBER, MANAGER FIBER-C Other Provider Active St art: January 27, 2025 Team Status: Inactive Member Role/Relationship Status Dates Blue Wayt PA, PA Primary Care Provider Active Start: January 27, 2025 End: January 27, 2025 Blue Alicia PA, PA Referring Provider Active St art: January 27, 2025 End: January 27, 2025 Genna Zuniga MANAGER FIBER, MANAGER FIBER-C Attending Provider Active Start: January 27, 2025 End: January 27, 2025 Team Status: Inactive Member Role/Relationship Status Dates Blue Alicia PA, PA Primary Care Provider Active Start: February 02, 2025 End: February 02, 2025 Blue Alicia PA, PA Attending Provider Active St art: February 02, 2025 End: February 02, 2025 Blue Alicia PA, PA Referring Provider Active St art: February 02, 2025 End: February 02, 2025 Team Status: Inactive Member Role/Relationship Status Dates Blue Alicia PA, PA Primary Care Provider Active Start: October 26, 2024 End: October 26, 2024 Blue Alicia PA, PA Referring Provider Active St art: October 26, 2024 End: October 26, 2024 Dain Vaughn PA, PA Attending Provider Active Start: October 26, 2024 End: October 26, 2024 Team Status: Inactive Member Role/Relationship Status Dates Blue Alicia PA, PA Primary Care Provider Active Start: October 26, 2024 End: October 26, 2024 Dain Vaughn PA, PA Attending Provider Active Start: October 26, 2024 End: October 26, 2024 Dain Vaughn PA, PA Referring Provider Active Start: October 26, 2024 End: October 26, 2024 Team Status: Inactive Member Role/Relationship Status Dates Blue Alicia PA, PA Primary Care Provider Active Start: November 04, 2024 End: November 04, 2024 Blue Alicia PA, PA Referring Provider Active St art: November 04, 2024 End: November 04, 2024 Dr. Cristóbal Ford MD Attending Provider Active S tart: November 04, 2024 End: November 04, 2024 Team Status: Inactive Member Role/Relationship Status Dates Blue Alicia PA, PA Primary Care Provider Active Start: November 25, 2024 End: November 25, 2024 Blue Alicia PA, PA Referring Provider Active St art: November 25, 2024 End: November 25, 2024 Dr. Cristóbal Ford MD Attending Provider Active S tart: November 25, 2024 End: November 25, 2024 Team Status: Inactive Member Role/Relationship Status Dates Blue Alicia PA, PA Primary Care Provider Active Start: December 02, 2024 End: December 02, 2024 Dr. Cristóbal Ford MD Attending Provider Active S tart: December 02, 2024 End: December 02, 2024 Dr. Cristóbal Ford MD Referring Provider Active S tart: December 02, 2024 End: December 02, 2024 Team Status: Active Member Role/Relationship Status Dates Blue Alicia PA, PA Primary Care Provider Active Start: December 02, 2024 Dr. Jesus Varma MD Attending Provider Active S tart: December 02, 2024 Team Status: Inactive Member Role/Relationship Status Dates Blue Alicia PA, PA Primary Care Provider Active Start: December 16, 2024 End: December 16, 2024 Blue Alicia PA, PA Referring Provider Active St art: December 16, 2024 End: December 16, 2024 Dr. Cristóbal Ford MD Attending Provider Active S tart: December 16, 2024 End: December 16, 2024 Team Status: Inactive Member Role/Relationship Status Dates Blue Alicia PA, PA Primary Care Provider Active Start: December 29, 2024 End: December 29, 2024 Blue Alicia PA, PA Attending Provider Active St art: December 29, 2024 End: December 29, 2024 Blue Alicia PA, PA Referring Provider Active St art: December 29, 2024 End: December 29, 2024 Team Status: Inactive Member Role/Relationship Status Dates Blue Alicia PA, PA Primary Care Provider Active Start: January 04, 2025 End: January 04, 2025 Blue Alicia PA, PA Referring Provider Active St art: January 04, 2025 End: January 04, 2025 LUIS Kent Attending Provider Active Start: January 04, 2025 End: January 04, 2025 Team Status: Inactive Member Role/Relationship Status Dates Blue Alicia PA, PA Primary Care Provider Active Start: January 06, 2025 End: January 06, 2025 Blue Alicia PA, PA Referring Provider Active St art: January 06, 2025 End: January 06, 2025 Dr. Cristóbal Ford MD Attending Provider Active S tart: January 06, 2025 End: January 06, 2025 Team Status: Inactive Member Role/Relationship Status Dates Blue Alicia PA, PA Primary Care Provider Active Start: January 27, 2025 End: January 27, 2025 Blue Alicia PA, PA Referring Provider Active St art: January 27, 2025 End: January 27, 2025 Genna Zuniga MANAGER FIBER, MANAGER FIBER-C Attending Provider Active Start: January 27, 2025 End: January 27, 2025 Team Status: Inactive Member Role/Relationship Status Dates Blue Alicia PA, PA Primary Care Provider Active Start: February 02, 2025 End: February 02, 2025 Bule Alicia PA, PA Attending Provider Active St art: February 02, 2025 End: February 02, 2025 Blue Alicia PA, PA Referring Provider Active St art: February 02, 2025 End: February 02, 2025 Team Status: Inactive Member Role/Relationship Status Dates Blue Alicia PA, PA Primary Care Provider Active Start: February 17, 2025 End: February 17, 2025 Blue Alicia PA, PA Referring Provider Active St art: February 17, 2025 End: February 17, 2025 Genna Zuniga MANAGER FIBER, MANAGER FIBER-C Attending Provider Active Start: February 17, 2025 End: February 17, 2025 Team Status: Active Member Role/Relationship Status Dates Maida Kim MANAGER FIBER, MANAGER FIBER-C Primary Care Provider Active Start: February 17, 2025 Dr. Cristóbal Ford MD Referring Provider Active S tart: February 17, 2025 Genna Zuniga MANAGER FIBER, MANAGER FIBER-C Attending Provider Active Start: February 17, 2025 Genna Zuniga MANAGER FIBER, MANAGER FIBER-C Other Provider Active St art: February 17, 2025 Team Status: Active Member Role/Relationship Status Dates Blue BERMUDEZ, PA Primary care physician Active Team Status: Inactive Member Role/Relationship Status Dates Blue Alicia PA, PA Primary care physician Active Start: November 25, 2024 End: November 25, 2024 Blue Alicia PA, PA Referring Provider Active St art: November 25, 2024 End: November 25, 2024 Dr. Cristóbal Ford MD Attending physician Active Start: November 25, 2024 End: November 25, 2024 Team Status: Inactive Member Role/Relationship Status Dates Blue Alicia PA, PA Primary care physician Active Start: December 02, 2024 End: December 02, 2024 Dr. Cristóbal Ford MD Attending physician Active Start: December 02, 2024 End: December 02, 2024 Dr. Cristóbal Ford MD Referring Provider Active S tart: December 02, 2024 End: December 02, 2024 Team Status: Active Member Role/Relationship Status Dates Blue Alicia PA, PA Primary care physician Active Start: December 02, 2024 Dr. Jesus Varma MD Attending physician Active Start: December 02, 2024 Team Status: Inactive Member Role/Relationship Status Dates Blue Alicia PA, PA Primary care physician Active Start: December 16, 2024 End: December 16, 2024 Blue Alicia PA, PA Referring Provider Active St art: December 16, 2024 End: December 16, 2024 Dr. Cristóbal Ford MD Attending physician Active Start: December 16, 2024 End: December 16, 2024 Team Status: Inactive Member Role/Relationship Status Dates Blue Alicia PA, PA Primary care physician Active Start: December 29, 2024 End: December 29, 2024 Blue Alicia PA, PA Attending physician Active S tart: December 29, 2024 End: December 29, 2024 Blue Alicia PA, PA Referring Provider Active St art: December 29, 2024 End: December 29, 2024 Team Status: Inactive Member Role/Relationship Status Dates Blue Alicia PA, PA Primary care physician Active Start: January 04, 2025 End: January 04, 2025 Blue Alicia PA, PA Referring Provider Active St art: January 04, 2025 End: January 04, 2025 LUIS Kent Attending physician Active Start: January 04, 2025 End: January 04, 2025 Team Status: Inactive Member Role/Relationship Status Dates Blue Alicia PA, PA Primary care physician Active Start: January 06, 2025 End: January 06, 2025 Blue Alicia PA, PA Referring Provider Active St art: January 06, 2025 End: January 06, 2025 Dr. Cristóbal Ford MD Attending physician Active Start: January 06, 2025 End: January 06, 2025 Team Status: Inactive Member Role/Relationship Status Dates Blue Alicia PA, PA Primary care physician Active Start: January 27, 2025 End: January 27, 2025 Blue Alicia PA, PA Referring Provider Active St art: January 27, 2025 End: January 27, 2025 Genna Zuniga MANAGER FIBER, MANAGER FIBER-C Attending physician Active Start: January 27, 2025 End: January 27, 2025 Team Status: Inactive Member Role/Relationship Status Dates Blue Alicia PA, PA Primary care physician Active Start: February 02, 2025 End: February 02, 2025 Blue Alicia PA, PA Attending physician Active S tart: February 02, 2025 End: February 02, 2025 Blue Alicia PA, PA Referring Provider Active St art: February 02, 2025 End: February 02, 2025 Team Status: Inactive Member Role/Relationship Status Dates Blue Alicia PA, PA Primary care physician Active Start: February 17, 2025 End: February 17, 2025 Blue Alicia PA, PA Referring Provider Active St art: February 17, 2025 End: February 17, 2025 Genna Zuniga MANAGER FIBER, MANAGER FIBER-C Attending physician Active Start: February 17, 2025 End: February 17, 2025 Team Status: Active Member Role/Relationship Status Dates Blue BERMUDEZ, PA Primary care physician Active Start: 2025 Genna Zuniga MANAGER FIBER, MANAGER FIBER-C Attending physician Active Start: 2025 Genna Zuniga MANAGER FIBER, MANAGER FIBER-C Referring Provider Active Start: 2025 Team Status: Active Member Role/Relationship Status Dates Blue BERMUDEZ, PA Primary care physician Active Start: 2025 Dr. Jesus Varma MD Attending physician Active Start: 2025 Team Status: Inactive Member Role/Relationship Status Dates Blue Alicia PA, PA Primary care physician Active Start: March 10, 2025 End: March 10, 2025 Blue Alicia PA, PA Referring Provider Active St art: March 10, 2025 End: March 10, 2025 Dr. Cristóbal Ford MD Attending physician Active Start: March 10, 2025 End: March 10, 2025 Team Status: Active Member Role/Relationship Status Dates Maida Kim MANAGER FIBER, MANAGER FIBER-C Primary care physician Active Start: March 10, 2025 Dr. 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 - seeing Procedures NEW BREAST MED ONC Self, Self Josh Mancuso MD [address], [address] [place] [address] Referral ID Status Reason Start Date Expiration Date V isits Requested Visits Authorized [id number] New Request 09/24/2022 10/19/2023 1 1 Reason Comments Vaginal Bleeding Reason Comments Follow-up Review SIS Reason Comments Surgical Consult Hysteroscopy D&C Specialty Diagnoses / Procedures Referred By Dianna ann Referred To Contact Diagnoses Postmenopausal bleeding Polyp of corpus uteri Procedures FL HYSTEROSCOPY BX ENDOMETRIUM&/POLYPC W/WO D&C HYSTEROSCOPY DILATION AND CURETTAGE, POLYPECTOMY Gladis Rausch MD [address] [id number] [facility] [address] [place] [address] Referral ID Status Reason Start Date Expiration Date Visits Re quested Visits Authorized [id number] 1 1 Reason Comments Post-op Visit D&C [...] BE BASED ON THE PRIMARY CLINICAL RECORDS. [employer] provides no warranty or guarantee of the accuracy or completeness of information in this document.
--- OUTSIDE RECORDS SUMMARY | 2025-03-29 07:31 | XMS RPT_ITS | CCD ---
Author Organization [facility] Care Team Providers Care Corrugator Name Role Phone CAROLINA MCGREGOR (LIQUIFIED NATURAL GAS TECHNICIAN) Unavailable Unavailable Daily PT, Sylvia Unavailable Unavailable Juloi POWER ELECTRONICS RESEARCH ENGINEER, POWER ELECTRONICS RESEARCH ENGINEER-C Madia Primary Care Provider Julio POWER ELECTRONICS RESEARCH ENGINEER, POWER ELECTRONICS RESEARCH ENGINEER-C Maida Referring Provider [phone] LARA Martin Attending Provider [phone] LARA Tobias Attending Provider [phone] Dr. Jesus Varma Attending Provider [phone] Julio POWER ELECTRONICS RESEARCH ENGINEER, POWER ELECTRONICS RESEARCH ENGINEER-C Maida Primary Care Provider [phone] Julio POWER ELECTRONICS RESEARCH ENGINEER, POWER ELECTRONICS RESEARCH ENGINEER-C Maida Referring Provider [phone] LARA Martin Attending Provider [phone] Dr. Jesus Varma Attending Provider [phone] Cristóbal Hernández Attending Provider [phone] Julio POWER ELECTRONICS RESEARCH ENGINEER, POWER ELECTRONICS RESEARCH ENGINEER-C Maida Primary Care Provider Julio POWER ELECTRONICS RESEARCH ENGINEER, POWER ELECTRONICS RESEARCH ENGINEER-C Maida Referring Provider [phone] LARA Martin Attending Provider [phone] Dr. Josh Wolfe Attending Provider JULIO WAITER-LIQUIFIED NATURAL GAS TECHNICIAN, MAIDA S Primary Care Physicia n Julio POWER ELECTRONICS RESEARCH ENGINEER, POWER ELECTRONICS RESEARCH ENGINEER-C Maida Primary Care Provider [phone] Julio POWER ELECTRONICS RESEARCH ENGINEER, POWER ELECTRONICS RESEARCH ENGINEER-C Maida Referring Provider [phone] Dr. Cristóbal Ford Attending Provider Dr. Josh Wolfe Referring Provider Dr. Josh Wolfe Other Provider Dr. Cristóbal Ford Other Provider Dr. Jey Mackenzie Attending Provider Aleksander POWER ELECTRONICS RESEARCH ENGINEER, POWER ELECTRONICS RESEARCH ENGINEER-C Genna Attending Provider Julio POWER ELECTRONICS RESEARCH ENGINEER, POWER ELECTRONICS RESEARCH ENGINEER-C Maida Primary Care Provider Julio POWER ELECTRONICS RESEARCH ENGINEER, POWER ELECTRONICS RESEARCH ENGINEER-C Maida Referring Provider [phone] Julio POWER ELECTRONICS RESEARCH ENGINEER, POWER ELECTRONICS RESEARCH ENGINEER-C Maida Primary Care Provider [phone] Julio POWER ELECTRONICS RESEARCH ENGINEER, POWER ELECTRONICS RESEARCH ENGINEER-C Maida Referring Provider [phone] Dr. Josh Wolfe Attending Provider [phone] Dr. Cristóbal Ford Attending Provider Dr. Josh Wolfe Referring Provider Dr. Josh Wolfe Other Provider Dr. Cristóbal Ford Other Provider Dr. Jey Mackenzie Attending Provider Aleksander GARCIA, POWER ELECTRONICS RESEARCH ENGINEER-C Genna Attending Provider Dr. Cristóbal Ford Referring Provider Josh Mancuso MD Unavailable [phone] Cliff ARCOSN-LIQUIFIED NATURAL GAS TECHNICIAN, Paige L Unavailable [phone] Liliana BYRNE/Cristóbal REYES Unavailable Maida Flores S Primary Care Provider [phone] Laurel Tomas RN Unavailable Unavailable MAIDA KIM S Primary Care Unavailable SELF, SELF Referring Unavailable JOSH MANCUSO Attending Unavailable Julio POWER ELECTRONICS RESEARCH ENGINEER, POWER ELECTRONICS RESEARCH ENGINEER-C Maida Primary Care Provider [phone] Julio POWER ELECTRONICS RESEARCH ENGINEER, POWER ELECTRONICS RESEARCH ENGINEER-C Maida Referring Provider [phone] Dr. Cristóbal Ford Attending Provider Aleksander GARCIA, POWER ELECTRONICS RESEARCH ENGINEER-C Genna Attending Provider Dr. Josh Wolfe Attending Provider Dr. Jesus Varma Attending Provider [phone] LARA Martin Attending Provider Dr. Harjinder Peters Attending Provider [phone] Julio POWER ELECTRONICS RESEARCH ENGINEER, POWER ELECTRONICS RESEARCH ENGINEER-C Maida Primary Care Provider Julio POWER ELECTRONICS RESEARCH ENGINEER, POWER ELECTRONICS RESEARCH ENGINEER-C Maida Referring Provider [phone] Aleksander POWER ELECTRONICS RESEARCH ENGINEER, POWER ELECTRONICS RESEARCH ENGINEER-C Genna Attending Provider Dr. Cristóbal Ford Attending Provider Dr. Cristóbal Ford Referring Provider Julio POWER ELECTRONICS RESEARCH ENGINEER, POWER ELECTRONICS RESEARCH ENGINEER-C Maida Primary Care Provider [place] POWER ELECTRONICS RESEARCH ENGINEER, POWER ELECTRONICS RESEARCH ENGINEER-C Maida Referring Provider [phone] Dr. Cristóbal Ford Attending Provider [phone] Aleksander POWER ELECTRONICS RESEARCH ENGINEER, POWER ELECTRONICS RESEARCH ENGINEER-C Genna Attending Provider Dr. Emelia Carrington Attending Provider Julio POWER ELECTRONICS RESEARCH ENGINEER, POWER ELECTRONICS RESEARCH ENGINEER-C Maida Primary Care Provider Julio POWER ELECTRONICS RESEARCH ENGINEER, POWER ELECTRONICS RESEARCH ENGINEER-C Maida Referring Provider [phone] Dr. Cristóbal Ford Attending Provider [phone] LARA Martin Attending Provider [phone] [place] POWER ELECTRONICS RESEARCH ENGINEER, POWER ELECTRONICS RESEARCH ENGINEER-C Maida Primary Care Provider [phone] [place] POWER ELECTRONICS RESEARCH ENGINEER, POWER ELECTRONICS RESEARCH ENGINEER-C Maida Referring Provider [phone] Aleksander POWER ELECTRONICS RESEARCH ENGINEER, POWER ELECTRONICS RESEARCH ENGINEER-C Genna Attending Provider Dr. Emelia Carrington Attending Provider Dr. Cristóbal Ford Attending Provider LARA Martin Attending Provider [phone] Liliane Hall Attending Provider UnavailDr. Jesus Egan Attending Provider [phone] JULIO WAITER-LIQUIFIED NATURAL GAS TECHNICIAN, MAIDA S Attending Unava ilable JULIO WAITER-LIQUIFIED NATURAL GAS TECHNICIAN, MAIDA S Primary Care Unava ilable LISA LYN DO Attending Unavailable JULIO WAITER-LIQUIFIED NATURAL GAS TECHNICIAN, MAIDA S Primary Care Unava ilable [facility] Primary Care Provider Unav ailable Julio POWER ELECTRONICS RESEARCH ENGINEER, POWER ELECTRONICS RESEARCH ENGINEER-C Maida Primary Care Provider [phone] Liliane Hall Attending Provider Unavailabl e Julio POWER ELECTRONICS RESEARCH ENGINEER, POWER ELECTRONICS RESEARCH ENGINEER-C Maida Referring Provider [phone] Aleksander POWER ELECTRONICS RESEARCH ENGINEER, POWER ELECTRONICS RESEARCH ENGINEER-C Genna Attending Provider Dr. Jesus Varma Attending Provider Dr. Cristóbal Ford Attending Provider Julio, Maida S Primary Care Provider [phone] JULIO, MAIDA Primary Care Unavailable GLADIS RAUSCH Attending Unavailable [facility], [facility] Primary Care Unavailable NIKKO GOLDBERG Attending Unavailable GLADIS RAUSCH Attending Unavailable [facility], [facility] Primary Care Unavailable JULIO, MAIDA Primary Care Unavailable GLADIS RAUSCH Attending Unavailable [facility], [facility] Primary Care Unavailable NIKKO GOLDBERG Attending Unavailable INC, [facility] Primary Care Unavailable NIKKO GOLDBERG Referring Unavailable JULIO, MAIDA Primary Care Unavailable GLADIS RAUSCH Admitting Unavailable GLADIS RAUSCH Attending Unavailable [place] POWER ELECTRONICS RESEARCH ENGINEER-C, Maida Primary Care Provider [phone] Julio POWER ELECTRONICS RESEARCH ENGINEER-C, Maida Referring Provider [phone] Aleksander POWER ELECTRONICS RESEARCH ENGINEER-C, Genna Attending Provider Aleksander POWER ELECTRONICS RESEARCH ENGINEER-C, Genna Referring Provider Avani NOONAN, Dr. Lee Attending Provider Dr. Cristóbal Ford MD Attending Provider Dr. Yvonne Hinojosa MD Attending Provider Dr. Yvonne Hinojosa MD Referring Provider Blue Martin Primary Care Provider Blue Martin Referring Provider Dr. Cristóbal Ford MD Referring Provider Aleksander POWER ELECTRONICS RESEARCH ENGINEER-C, Egnna Other Provider Dr. Dain Serrano MD Attending Provider [phone] Dr. Dain Serrano MD Referring Provider [phone] Carly Manzanares Attending Provider [phone] Carly Manzanares Referring Provider [phone] [place] POWER ELECTRONICS RESEARCH ENGINEER-C, Maida Primary Care Provider [phone] Aleksander POWER ELECTRONICS RESEARCH ENGINEER-C, Genna Attending Provider [place] POWER ELECTRONICS RESEARCH ENGINEER-C, Maida Referring Provider [phone] Aleksander POWER ELECTRONICS RESEARCH ENGINEER-C, Genna Other Provider Julio POWER ELECTRONICS RESEARCH ENGINEER-C, Maida Primary Care Provider [phone] Julio POWER ELECTRONICS RESEARCH ENGINEER-C, Maida Referring Provider [phone] Dr. Cristóbal Ford MD Attending Provider Aleksander POWER ELECTRONICS RESEARCH ENGINEER-C, Genna Attending Provider Aleksander POWER ELECTRONICS RESEARCH ENGINEER-C, Genna Referring Provider Avani NOONAN, Dr. Lee Attending Provider [phone] Blue Martin Primary Care Provider [phone] Dr. Cristóbal Ford MD Attending Provider Julio POWER ELECTRONICS RESEARCH ENGINEER-C, Maida Primary Care Provider [phone] Aleksander POWER ELECTRONICS RESEARCH ENGINEER-C, Genna Other Provider Dain Bishop Attending Provider [phone] Blue Martin Primary Care Provider [phone] Blue Martin Referring Provider Dr. Cristóbal Ford MD Attending Provider Dr. Wyatt Patel MD Attending Provider Dain Bishop Referring Provider [phone] Julio POWER ELECTRONICS RESEARCH ENGINEER-C, Maida Primary Care Provider [phone] Dr. Cristóbal Ford MD Referring Provider Aleksander POWER ELECTRONICS RESEARCH ENGINEER-C, Genna Other Provider Blue Martin Primary Care Provider [phone] Blue Martin Referring Provider [phone] Aleksander POWER ELECTRONICS RESEARCH ENGINEER-C, Genna Attending Provider Aleksander POWER ELECTRONICS RESEARCH ENGINEER-C, Genna Referring Provider [phone] Julio POWER ELECTRONICS RESEARCH ENGINEER-C, Maida Primary Care Provider [phone] Liliana NOONAN, Dr. Ambrocio Referring Provider Aleksander POWER ELECTRONICS RESEARCH ENGINEER-C, Genna Other Provider Ravin PA, Blue Primary Care Provider [phone] Liliana NOONAN, Dr. Ambrocio Attending Provider Ravin PA, Blue Referring Provider [phone] Navya NOONAN, Dr. Gautam Attending Provider [phone] Navya NOONAN, Dr. Gautam Referring Provider [phone] Liliana NOONAN, Dr. Ambrocio Referring Provider [phone] Julio POWER ELECTRONICS RESEARCH ENGINEER-C, Maida Primary Care Provider [phone] Aleksander POWER ELECTRONICS RESEARCH ENGINEER-C, Genna Other Provider Ravin PA, Blue Attending Provider [phone] Wayseth PA, Blue Primary Care Provider [phone] Ravin PA, Blue Referring Provider [phone] Aleksander POWER ELECTRONICS RESEARCH ENGINEER-C, Genna Attending Provider [phone] Liliana NOONAN, Dr. Ambrocio Attending Provider [phone] Avani NOONAN, Dr. Lee Attending Provider [phone] NURSE, BIM Attending Provider Unavailable Julio POWER ELECTRONICS RESEARCH ENGINEER-C, Maida Primary Care Provider [phone] Aleksander POWER ELECTRONICS RESEARCH ENGINEER-C, Genna Other Provider Wayt PA, Blue Primary Care Provider [phone] Ravin PA, Blue Referring Provider [phone] Aleksander POWER ELECTRONICS RESEARCH ENGINEER-C, Genna Attending Provider Ungerer POWER ELECTRONICS RESEARCH ENGINEER-C, Maida Attending Provider [phone] Julio POWER ELECTRONICS RESEARCH ENGINEER-C, Maida Primary Care Provider [phone] Aleksander POWER ELECTRONICS RESEARCH ENGINEER-C, Genna Other Provider Blue Martin Primary Care Provider Ravin BERMUDEZ, Blue Referring Provider Aleksander POWER ELECTRONICS RESEARCH ENGINEER-C, Genna Attending Provider [place] POWER ELECTRONICS RESEARCH ENGINEER-C, Maida Primary Care Provider [phone] Aleksander POWER ELECTRONICS RESEARCH ENGINEER-C, Genna Other Provider Blue Martin Primary Care Physician Ravin BERMUDEZ, Blue Referring Provider Dr. Cristóbal Ford MD Attending Physician Avani NOONAN, Dr. Lee Attending Physician Blue Martin Attending Physician Ungerer POWER ELECTRONICS RESEARCH ENGINEER-C, Maida Attending Physician Aleksander POWER ELECTRONICS RESEARCH ENGINEER-C, Genna Attending Physician Aleksander POWER ELECTRONICS RESEARCH ENGINEER-C, Genna Referring Provider [place] POWER ELECTRONICS RESEARCH ENGINEER-C, [facility] [address] Primary Care Physician [phone] Aleksander POWER ELECTRONICS RESEARCH ENGINEER-C, Genna Nurse Practitioner Julio POWER ELECTRONICS RESEARCH ENGINEER, [facility] [address] Primary Care Unavailable Julio POWER ELECTRONICS RESEARCH ENGINEER, [facility] [address] Referring Unavailable Cristóbal Ford Attending Unavailable Dain Serrano Referring Unavailable Dain Serrano Attending Unavailable Ravin BERMUDEZ, Blue Primary Care Unavailable Ravin BERMUDEZ, [facility] Primary Care Unavailable Dain Bishop Attending Unavailable Dain Bishop Referring Unavailable Dain Serrano Referring Unavailable Dain Serrano Attending Unavailable Ravin BERMUDEZ, [facility] Primary Care Unavailable Aleksander POWER ELECTRONICS RESEARCH ENGINEER, Genna Referring Unavailable Aleksander POWER ELECTRONICS RESEARCH ENGINEER, Genna Attending Unavailable Ravin BERMUDEZ, [facility] Primary Care Unavailable Dain Serrano Attending Unavailable Dain Serrano Referring Unavailable Ravin BERMUDEZ, [facility] Primary Care Unavailable Aleksander POWER ELECTRONICS RESEARCH ENGINEER, Genna Referring Unavailable Aleksander POWER ELECTRONICS RESEARCH ENGINEER, Genna Attending Unavailable Ravin BERMUDEZ, [facility] Primary Care Unavailable Julio POWER ELECTRONICS RESEARCH ENGINEER, [facility] [address] Primary Care Unavailable Robotham, Yvonne Referring Unavailable Robotartie Yvonne Attending Unavailable Wayt PA, Blue Primary Care Unavailable PraCristóbal scott Consulting Unavailable PraCristóbal scott Referring Unavailable PrahCristóbal Attending Unavailable Wayt PA, Blue Primary Care Unavailable Wayt PA, Blue Referring Unavailable Prah, Cristóbal Attending Unavailable Wayt PA, Blue Primary Care Unavailable Wayt PA, Blue Referring Unavailable Pratyler, Cristóbal Attending Unavailable Aleksander POWER ELECTRONICS RESEARCH ENGINEER, Genna Attending Unavailable Wayt PA, Blue Primary [...] PA, Carly Epperson Referring Unavail able Aleksander POWER ELECTRONICS RESEARCH ENGINEER, Genna Attending Unavailable Aleksander POWER ELECTRONICS RESEARCH ENGINEER, Genna Referring Unavailable Julio POWER ELECTRONICS RESEARCH ENGINEER, [facility] [address] Primary Care Unavailable Aleksander POWER ELECTRONICS RESEARCH ENGINEER, Genna Consulting Unavailable Aleksander POWER ELECTRONICS RESEARCH ENGINEER, Genna Attending Unavailable Julio POWER ELECTRONICS RESEARCH ENGINEER, [facility] [address] Primary Care Unavailable Cristóbal Ford Referring Unavailable Wayt PA, Blue Primary Care Unavailable Jesus Varma Attending Unavailable Wayt PA, Blue Primary Care Unavailable Jesus Varma Attending Unavailable Pratyler, Cristóbal Attending Unavailable Wayt PA, Blue Primary Care Unavailable Wayt PA, Blue Referring Unavailable Liliana, Cristóbal Attending Unavailable Cirstóbal Ford Referring Unavailable Wayt PA, Lbue Primary Care Unavailable Cristbóal Ford Attending Unavailable Cristóbal Ford Referring Unavailable Wayt PA, Blue Primary Care Unavailable Aleksander POWER ELECTRONICS RESEARCH ENGINEER, Genna Attending Unavailable Aleksander POWER ELECTRONICS RESEARCH ENGINEER, Genna Referring Unavailable Wayt PA, Blue Primary Care Unavailable Aleksander POWER ELECTRONICS RESEARCH ENGINEER, Genna Attending Unavailable Julio POWER ELECTRONICS RESEARCH ENGINEER, Maida Referring Unavailable Julio POWER ELECTRONICS RESEARCH ENGINEER, [facility] [address] Primary Care Unavailable Aleksander POWER ELECTRONICS RESEARCH ENGINEER, Genna Attending Unavailable Wayt PA, Blue Primary Care Unavailable Wayt PA, Blue Referring Unavailable Aleksander POWER ELECTRONICS RESEARCH ENGINEER, Genna Attending Unavailable Wayt PA, Blue Primary Care Unavailable Wayt PA, Blue Referring Unavailable Wayt PA, Blue Primary Care Unavailable Wayt PA, Blue Referring Unavailable Dain Bishop Attending Unavailable Wayt PA, Blue Primary Care Unavailable Wayt PA, Blue Referring Unavailable Prah, Cristóbal Attending Unavailable Aleksander POWER ELECTRONICS RESEARCH ENGINEER, Genna Attending Unavailable Wayt PA, Blue Primary Care Unavailable Wayt PA, Blue Referring Unavailable Wayt PA, Blue Primary Care Unavailable Wayt PA, Blue Referring Unavailable Wayt PA, Blue Attending Unavailable [place] POWER ELECTRONICS RESEARCH ENGINEER, Maida Referring Unavailable Julio POWER ELECTRONICS RESEARCH ENGINEER, Maida Primary Care Unavailable Aleksander POWER ELECTRONICS RESEARCH ENGINEER, Genna Attending Unavailable Prah, Cristóbal Attending Unavailable [...] Care Unavailable Jesus Varma Attending Unavailable Julio POWER ELECTRONICS RESEARCH ENGINEER, Maida Primary Care Unavailable Julio POWER ELECTRONICS RESEARCH ENGINEER, Maida Referring Unavailable Robotham Yvonne Attending Unavailable Julio POWER ELECTRONICS RESEARCH ENGINEER, Maida Referring Unavailable Robotham Yvonne Attending Unavailable Wayt PA, Blue Primary Care Unavailable Prah, Cristóbal Attending Unavailable Wayt PA, Blue Primary Care Unavailable Wayt PA, Blue Referring Unavailable Aleksander POWER ELECTRONICS RESEARCH ENGINEER, Genna Attending Unavailable Wayt PA, Blue Primary Care Unavailable Wayt PA, Blue Referring Unavailable Julio POWER ELECTRONICS RESEARCH ENGINEER, Maida Primary Care Unavailable Julio POWER ELECTRONICS RESEARCH ENGINEER, Maida Referring Unavailable Pratyler, Cristóbal Attending Unavailable Julio POWER ELECTRONICS RESEARCH ENGINEER, Maida Primary Care Unavailable Jesus Varma Attending Unavailable Julio POWER ELECTRONICS RESEARCH ENGINEER, Maida Primary Care Unavailable Julio POWER ELECTRONICS RESEARCH ENGINEER, Maida Referring Unavailable Pratyler, Cristóbal Attending Unavailable Allergies Allergy Classification Reported Allergen(s) Allergy Type Date of Onset Reaction(s) Facility (16 sources) Latex Allergy to substance 08-12-2024 blisters [facility] (1 source) Latex Drug allergy (disorder) 03-24-2025 [facility] Repository Medications Current Medications Medication Drug [...] by mouth 2 times daily. 0 Active [place] [facility] 7.5 mg-7.5 mg/5 mL oral liquid (1 source) Start: take 1 dose by mouth every eight hours as needed for cough and congestion [place] DM 7.5 mg-7.5 mg/5 mL oral liquid Dose = 20 mL, Oral, q8h, PRN as needed for cough and congestion, # 473 mL, 1 Refill(s), Pharmacy: [facility]/pharmacy #[id number], URI with cough and congestion, 171.5, [...] qDay, # 15 tab(s), 1 Refill(s), Pharmacy: [facility]/pharmacy #[id number], 171.5, cm, 05/22/22 16:11:00 EST, Height [...] 1.5 mg/ml oral solution (20 sources) Uncompetitive A-zkqzni-F-aspartate Receptor Antagonist, Sigma-1 Agonist Start: 06-14-2022 End: 09-30-2022 take 1 mL by mouth every eight hours Pyrilamine-Dextromethorphan ([place] Dm) 7.5-7.5 mg/5 mL Liquid Discontinued 20 mL PO Q8H June 14, 2022 1:00am September 30, 2022 3:36pm COUGH Start: 06-14-2022 End: 09-30-2022 take 1 mL by mouth every eight hours Pyrilamine-Dextromethorphan ([place] Dm) 7.5-7.5 mg/5 mL Liquid Discontinued 20 [...] q6h, # 28 tab(s), 0 Refill(s), Pharmacy: [facility]/pharmacy #[id number], 175, cm, 05/03/20 11:09:00 EST, Height, [...] Canc er L breast, ER 95% +, AL 10% +, Her2 3+, initially started with [...] Canc er L breast, ER 95% +, AL 10% +, Her2 3+, initially started with [...] Canc er L breast, ER 95% +, AL 10% +, Her2 3+, initially started with [...] Canc er L breast, ER 95% +, AL 10% +, Her2 3+, initially started with [...] Canc er L breast, ER 95% +, AL 10% +, Her2 3+, initially started with [...] Canc er L breast, ER 95% +, AL 10% +, Her2 3+, initially started with [...] Canc er L breast, ER 95% +, AL 10% +, Her2 3+, initially started with [...] Canc er L breast, ER 95% +, AL 10% +, Her2 3+, initially started with [...] Other aftercare (2 sources) Prevention status; Translations: [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 estrogen 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 [...] Onset: 10-28-2023 Episodic Other aftercare (2 sources) 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 estrogen 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 [...] 08-12-2024 Episodic Other aftercare (1 source) Other longterm (current) drug therapy; Translations: [Other longterm (current) drug therapy] Onset: 05-20-2024 Episodic Other non-traumatic joint disorders (20 sources) Pain in left knee; Translations: [Left knee pain] Onset: 09-20-2024 Episodic Other skin disorders (1 source) Rash and other nonspecific skin eruption; Translations: [Rash and other nonspecific skin eruption] Onset: 11-08-2024 Episodic Results Test Name Value Interpretation Reference Range Facility Oncology Visit Reporton 03-09 Oncology Visit Report Normal [facility] Internal Medicine Office Vis iton 03-23-2025 Internal Medicine Office Visit Normal [facility] CA 15-3on 03-11-2025 CA 15-3 85.6 U/mL Abnormal 0.0-25.0 [facility] Comment on above: Result Comment: MollyWatr Electrochemiluminescence Immunoassay(ECLIA)Values obtained with different assay methods or kits cannotbe used interchangeably. Results cannot be interpreted asabsolute evidence of the presence or absence of malignantdisease.Performed at: [email or web address] [id number] Director: Ervin Hitchcock PhD, Phone: [phone] Performed By: #### L 3100.5030, L3100.2300, L500.4050, L100.0100, L3100.5040 ####[facility] [id number] [facility] [address] [place], [place], [id number] CA 27.29on 03-11-2025 CA 27.29 110.5 U/mL Abnormal 0.0-38.6 [facility] Comment on above: Result Comment: Inktankaur Immunochemiluminometric Methodology (ICMA)Values obtained with different assay methods or kits cannotbe used interchangeably. Results cannot be interpreted asabsolute evidence of the presence or absence of malignantdisease. Performed By: #### L 3100.5030, L3100.2300, L500.4050, L100.0100, L3100.5040 ####[facility] [id number] [place], [place], [id number] Carcinoembryonic Antigenon 1 0 CEA 1.5 ng/mL Normal 0.0-4.7 [facility] Comment on above: Result Comment: Nons mokers <3.9 Smokers <5.6[employer] Electrochemiluminescence Immunoassay(ECLIA)Values obtained with different assay methods or kitscannot be used interchangeably. Results cannot beinterpreted as absolute evidence of the presence orabsence of malignant disease. Performed By: #### L 3100.5030, L3100.2300, L500.4050, L100.0100, L3100.5040 ####[facility] [id number] [place], [place], [id number] Absolute lymphocyte countOrd ered By: Genna Zuniga on 03-10-2025 Lymphocytes Auto (Unsp spec) [#/Vol] 2.67 10*3/uL 0.83-4.51 [facility] Absolute neutrophil countOrd ered By: Genna Zuniga on 03-10-2025 Neutrophils (Bld) [#/Vol] 6.2 10*3/uL 2.0-7.7 [facility] Anion gap in Serum or Plasma Ordered By: Genna Zuniga on 03-10-2025 Anion gap [Moles/Vol] 13 mmol/L 5-[address] [facility] Automated lymphocyte count a s percentage of total leukocytesOrdered By: Genna Zuniga on 03-10-2025 Lymphocytes/100 WBC Auto (Unsp spec) 28.2 % 19-41 [facility] BUN/creatinine ratioOrdered By: Genna Zuniga on 03-10-2025 Urea nitrogen/Creatinine [Mass ratio] 19.0 mg/mg 10-20 [facility] Basophil percentageOrdered B y: Genna Zuniga on 03-10-2025 Basophils/100 WBC (Bld) 0.2 % 0-1 [facility] Bilirubin, totalOrdered By: Genna Zuniga on 03-10-2025 Bilirubin [Mass/Vol] 0.29 mg/dL 0.00-1.30 [facility] Blood manual differential co mment interpretation (narrative result)Ordered By: Genna Zuniga on 03-10-2025 Manual differential comment Rick (Bld) [Interp] SCANNED [facility] CBC W/Diff, Automatedon 10-0 PLT EST ADEQUATE Normal ADEQ [facility] Comment on above: Performed By: #### L 3100.5030, L3100.2300, L500.4050, L100.0100, L3100.5040 ####[facility] [id number] [place], [address] SMEAR COMMENT SCANNED Normal [facility] Comment on above: Performed By: #### L 3100.5030, L3100.2300, L500.4050, L100.0100, L3100.5040 ####[facility] [address] [place], [address] Carbon dioxide, total [Moles /volume] in Central venous bloodOrdered By: Genna Zuniga on 03-10-2025 CO2 [Moles/Vol] 22.7 mmol/L 21.0-32.0 [facility] Chloride assayOrdered By: Erwin Zuniga on 03-10-2025 Chloride [Moles/Vol] 104 mmol/L 98-108 [facility] Comprehensive Metabolic Prof ilon 03-10-2025 Albumin [Mass/Vol] 4.3 g/dL Normal 3.5-5.0 [facility] Comment on above: Performed By: #### L 3100.5030, L3100.2300, L500.4050, L100.0100, L3100.5040 ####[facility] [address] [place], [address] Albumin/Globulin [Mass ratio] 1.6 {ratio} Normal 0.9-2.4 [facility] Comment on above: Performed By: #### L 3100.5030, L3100.2300, L500.4050, L100.0100, L3100.5040 ####[facility] [address] [place], [address] ALK PHOS 62 U/L Normal 35-104 [facility] Comment on above: Performed By: #### L 3100.5030, L3100.2300, L500.4050, L100.0100, L3100.5040 ####[facility] [address] [place], [address] ALT [Catalytic activity/Vol] 30 U/L Normal <=34 [facility] Comment on above: Performed By: #### L 3100.5030, L3100.2300, L500.4050, L100.0100, L3100.5040 ####[facility] [address] [place], [address] AST [Catalytic activity/Vol] 35 U/L High <=31 [facility] Comment on above: Performed By: #### L 3100.5030, L3100.2300, L500.4050, L100.0100, L3100.5040 ####[facility] [address] [place], [address] Bilirubin [Mass/Vol] 0.29 mg/dL Normal 0.00-1.30 [facility] Comment on above: Performed By: #### L 3100.5030, L3100.2300, L500.4050, L100.0100, L3100.5040 ####[facility] [address] [place], [address] BUN/CRE 19.0 RATIO Normal 10-20 [facility] Comment on above: Performed By: #### L 3100.5030, L3100.2300, L500.4050, L100.0100, L3100.5040 ####[facility] [address] [place], [address] Calcium [Mass/Vol] 10.4 mg/dL Normal 7.6-11.0 [facility] Comment on above: Performed By: #### L 3100.5030, L3100.2300, L500.4050, L100.0100, L3100.5040 ####[facility] [address] [place], [address] Chloride [Moles/Vol] 104 mmol/L Normal 98-108 [facility] Comment on above: Performed By: #### L 3100.5030, L3100.2300, L500.4050, L100.0100, L3100.5040 ####[facility] [address] [place], [address] CO2 [Moles/Vol] 22.7 mmol/L Normal 21.0-32.0 [facility] Comment on above: Performed By: #### L 3100.5030, L3100.2300, L500.4050, L100.0100, L3100.5040 ####[facility] [address] [place], [address] Creatinine [Mass/Vol] 0.82 mg/dL Normal 0.70-1.[address] [facility] Comment on above: Performed By: #### L 3100.5030, L3100.2300, L500.4050, L100.0100, L3100.5040 ####[facility] [address] [place], [address] ECRCL 96.39 ml/min Normal 50-250 [facility] Comment on above: Performed By: #### L 3100.5030, L3100.2300, L500.4050, L100.0100, L3100.5040 ####[facility] [address] [place], [address] GAP 13 Normal 5-15 [facility] Comment on above: Performed By: #### L 3100.5030, L3100.2300, L500.4050, L100.0100, L3100.5040 ####[facility] [address] [place], [address] GFR/1.73 sq M.predicted among non-blacks MDRD (S/P/Bld) [Vol rate/Area] 84 mL/min/{1.73_m2} Normal >60 [facility] Comment on above: Result Comment: mL/m in/1.73m2 CKD-EPI Creatinine Equation (2020) Performed By: #### L 3100.5030, L3100.2300, L500.4050, L100.0100, L3100.5040 ####[facility] [address] [place], [address] Globulin (S) [Mass/Vol] 2.7 g/dL Normal 2.2-4.2 [facility] Comment on above: Performed By: #### L 3100.5030, L3100.2300, L500.4050, L100.0100, L3100.5040 ####[facility] [address] [place], [address] Glucose [Mass/Vol] 92 mg/dL Normal 70-99 [facility] Comment on above: Performed By: #### L 3100.5030, L3100.2300, L500.4050, L100.0100, L3100.5040 ####[facility] [address] [place], [address] Potassium [Moles/Vol] 4.3 mmol/L Normal 3.3-5.[address] [facility] Comment on above: Performed By: #### L 3100.5030, L3100.2300, L500.4050, L100.0100, L3100.5040 ####[facility] [address] [place], [address] Sodium [Moles/Vol] 140 mmol/L Normal 133-145 [facility] Comment on above: Performed By: #### L 3100.5030, L3100.2300, L500.4050, L100.0100, L3100.5040 ####[facility] [address] [place], [address] T PROT 7.0 g/dL Normal 5.9-8.4 [facility] Comment on above: Performed By: #### L 3100.5030, L3100.2300, L500.4050, L100.0100, L3100.5040 ####[facility] [address] [place], [address] Urea nitrogen [Mass/Vol] 16 mg/dL Normal 4-19 [facility] Comment on above: Performed By: #### L 3100.5030, L3100.2300, L500.4050, L100.0100, L3100.5040 ####[facility] [address] [place], [address] Eosinophil percentageOrdered By: Genna Zuniga on 03-10-2025 Eosinophils/100 WBC (Bld) 0.8 % 0-5 [facility] Erythrocyte distribution wid th ratioOrdered By: Genna Zuniag on 03-10-2025 Erythrocyte distribution width (RBC) [Ratio] 13.7 % 11.6-14.6 [facility] Erythrocyte distribution wid th standard deviationOrdered By: Genna Zuniga on 03-10-2025 Erythrocyte distribution width (RBC) [Ratio] 46.5 fl High 35.1-43.9 [facility] Glomerular filtration rate ( GFR) estimation/1.73 sq m using serum, plasma, or whole bOrdered By: Genna Zuniga on 03-10-2025 GFR/1.73 sq M.predicted among non-blacks MDRD (S/P/Bld) [Vol rate/Area] 84 mL/min/{1.73_m2} >60 [facility] Comment on above: mL/min/1.73m2 CKD-EP I Creatinine Equation (2020) Hematocrit Auto (Bld) [Volum e fraction]Ordered By: Genna Zuniga on 03-10-2025 Hematocrit (Bld) [Volume fraction] 41.5 % 37-47 [facility] Hemoglobin measurementOrdere d By: Genna Zuniga on 03-10-2025 Hemoglobin (Bld) [Mass/Vol] 13.7 g/dL 12.0-15.0 [facility] Immature granulocytes/100 WB C Auto (Bld)Ordered By: Genna Zuniga on 03-10-2025 Immature granulocytes/100 WBC (Bld) 0.300 % 0.0-0.9 [facility] Comment on above: IG% - Immature Granu locytes (promyelocytes, myelocytes and metamyelocytes) > 1% indicates that a LEFT SHIFT is Present. Laboratory - Chemistry and C hemistry - challengeOrdered By: Genna Zuniga on 03-10-2025 AST [Catalytic activity/Vol] 35 U/L High <32 [facility] MCV (mean corpuscular volume ) determinationOrdered By: Genna Zuniga on 03-10-2025 MCV (RBC) [Entitic vol] 92.8 fL 81-99 [facility] Mean corpuscular hemoglobin (MCH) determinationOrdered By: Genna Zuniga on 03-10-2025 MCH (RBC) [Entitic mass] 30.6 pg 27.0-32.0 [facility] Mean corpuscular hemoglobin concentration (MCHC) determinationOrdered By: Genna Zuniga on 03-10-2025 MCHC (RBC) [Mass/Vol] 33.0 g/dL 32-[address] [facility] Monocyte percentageOrdered B y: Genna Zuniga on 03-10-2025 Monocytes/100 WBC (Bld) 5.6 % 0-10 [facility] NATERAon 03-10-2025 NATURA SEE SCANNED REPORT Normal [facility] Comment on above: Performed By: #### L 900.0098 ####[facility] [address] [place], [address] Neutrophil percentageOrdered By: Genna Zuniga on 03-10-2025 Neutrophils/100 WBC (Bld) 64.9 % 47-70 [facility] Nucleated red blood cell per centageOrdered By: Genna Zuniga on 03-10-2025 Nucleated RBC/100 WBC (Bld) [Ratio] 0 % 0-5 [facility] Oncology Visit Reporton 10-0 2-2025 Oncology Visit Report Normal [facility] Platelet countOrdered By: Erwin Zuniga on 03-10-2025 Platelet count See comment 150-450 [facility] Comment on above: Please note: For [...] 03-10-2025 Platelets LM Ql (Bld) ADEQUATE ADEQ [facility] Potassium measurement (mass/ volume)Ordered By: Genna Zuniga on 03-10-2025 Potassium (Unsp spec) [Mass/Vol] 4.3 mmol/L 3.3-5.1 [facility] RBC Auto (Bld) [#/Vol]Ordere d By: Genna Zuniga on 03-10-2025 RBC (Bld) [#/Vol] 4.47 10*6/uL 4.2-5.[address] [facility] Serum creatinine measurement (mass/volume)Ordered By: Genna Zuniga on 03-10-2025 Creatinine [Mass/Vol] 0.82 mg/dL 0.70-1.[address] [facility] Serum globulin measurementOr dered By: Genna Zuniga on 03-10-2025 Globulin (S) [Mass/Vol] 2.7 g/dL 2.2-4.2 [facility] Serum glucose measurement (m ass/volume)Ordered By: Genna Zuniga on 03-10-2025 Glucose [Mass/Vol] 92 mg/dL 70-99 [facility] Serum or plasma alanine alonzo otransferase (ALT) measurementOrdered By: Genna Zuniga on 03-10-2025 ALT [Catalytic activity/Vol] 30 U/L <35 [facility] Serum or plasma albumin paul urement (mass/volume)Ordered By: Genna Zuniga on 03-10-2025 Albumin [Mass/Vol] 4.3 g/dL 3.5-5.0 [facility] Serum or plasma albumin/glob ulin mass ratioOrdered By: Genna Zuniga on 03-10-2025 Albumin/Globulin [Mass ratio] 1.6 {ratio} 0.9-2.4 [facility] Serum or plasma alkaline ubaldo sphatase measurementOrdered By: Genna Zuniga on 03-10-2025 ALP [Catalytic activity/Vol] 62 U/L 35-104 [facility] Serum or plasma calcium paul urement (mass/volume)Ordered By: Genna Zuniga on 03-10-2025 Calcium [Mass/Vol] 10.4 mg/dL 7.6-11.0 [facility] Serum or plasma urea nitroge n measurement (mass/volume)Ordered By: Genna Zuniga on 03-10-2025 Urea nitrogen [Mass/Vol] 16 mg/dL 4-19 [facility] Sodium levelOrdered By: Genna Zuniga on 03-10-2025 Sodium [Moles/Vol] 140 mmol/L 133-145 [facility] Total proteinOrdered By: David Zuniga on 03-10-2025 Protein [Mass/Vol] 7.0 g/dL 5.9-8.4 [facility] White blood cell (WBC) count Ordered By: Genna Zuniga on 03-10-2025 WBC (Bld) [#/Vol] 9.5 10*3/uL 4.4-11.0 [facility] ONC Echo Completeon 03-08-20 ONC Echo Complete Normal [facility] Oncology Visit Reporton 02-07 Oncology Visit Report Normal [facility] Internal Medicine Office Vis iton 02-02-2025 Internal Medicine Office Visit Normal [facility] CA 15-3on 01-28-2025 CA 15-3 63.8 U/mL Abnormal 0.0-25.0 [facility] Comment on above: Result Comment: [employer] Electrochemiluminescence Immunoassay(ECLIA)Values obtained with different assay methods or kits cannotbe used interchangeably. Results cannot be interpreted asabsolute evidence of the presence or absence of malignantdisease.Performed at: [facility] [id number] Director: Ervin Hitchcock PhD, Phone: [phone] Performed By: #### L 3100.2300, L3100.5030, L3100.5040 ####[facility] [address] [place], [address] CA 27.29on 01-28-2025 CA 27.29 91.8 U/mL Abnormal 0.0-38.6 [facility] Comment on above: Result Comment: [facility] [employer] Immunochemiluminometric Methodology (ICMA)Values obtained with different assay methods or kits cannotbe used interchangeably. Results cannot be interpreted asabsolute evidence of the presence or absence of malignantdisease. Performed By: #### L 3100.2300, L3100.5030, L3100.5040 ####[facility] [address] [place], [address] Carcinoembryonic Antigenon 0 01-28-2025 CEA 1.5 ng/mL Normal 0.0-4.7 [facility] Comment on above: Result Comment: Nons mokers <3.9 Smokers <5.6[facility] Electrochemiluminescence Immunoassay(ECLIA)Values obtained with different assay methods or kitscannot be used interchangeably. Results cannot beinterpreted as absolute evidence of the presence orabsence of malignant disease. Performed By: #### L 3100.2300, L3100.5030, L3100.5040 ####[facility] [address] [place], [address] Absolute lymphocyte countOrd ered By: Cristóbal Ford on 01-27-2025 Lymphocytes Auto (Unsp spec) [#/Vol] 1.97 10*3/uL 0.83-4.51 [facility] Absolute neutrophil countOrd ered By: Cristóbal Ford on 01-27-2025 Neutrophils (Bld) [#/Vol] 3.8 10*3/uL 2.0-7.7 [facility] Anion gap in Serum or Plasma Ordered By: Cristóbal Ford on 01-27-2025 Anion gap [Moles/Vol] 13 mmol/L 5-[address] [facility] Automated lymphocyte count a s percentage of total leukocytesOrdered By: Cristóbal Ford on 01-27-2025 Lymphocytes/100 WBC Auto (Unsp spec) 31.1 % 19-41 [facility] BUN/creatinine ratioOrdered By: Cristóbal Ford on 01-27-2025 Urea nitrogen/Creatinine [Mass ratio] 20.8 mg/mg High 10-20 [facility] Basophil percentageOrdered B y: Cristóbal Ford on 01-27-2025 Basophils/100 WBC (Bld) 0.3 % 0-1 [facility] Bilirubin, totalOrdered By: Cristóbal Ford on 01-27-2025 Bilirubin [Mass/Vol] 0.30 mg/dL Normal 0.00-1.30 [facility] Comment on above: Performed By: #### L 500.4050, L100.0100 ####[facility] [address] [place], [place], [id number] CA 15-3Ordered By: Genna lim on 01-27-2025 CA 15-3 63.8 U/mL High 0.0-25.0 [facility] Comment on above: [employer] El ectrochemiluminescence Immunoassay(ECLIA)Values obtained with different assay methods or kits cannotbe used interchangeably. Results cannot be interpreted asabsolute evidence of the presence or absence of malignantdisease.Performed at: [facility] LaboratoriesPhilip [place] [id number] Director: Ervin Hitchcock PhD, Phone: [phone] CA .29Ordered By: Genna fuentes on 01-27-2025 CA 27.29 91.8 U/mL High 0.0-38.6 [facility] Comment on above: [employer] Immu nochemiluminometric Methodology (ICMA)Values obtained with different assay methods or kits cannotbe used interchangeably. Results cannot be interpreted asabsolute evidence of the presence or absence of malignantdisease. CBC W/Diff, Automatedon 01-08 PLT EST SLT DEC Normal ADEQ [facility] Comment on above: Performed By: #### L 500.4050, L100.0100 ####[facility] [address] [place], [place], [id number] Carbon dioxide, total [Moles /volume] in Central venous bloodOrdered By: Cristóbal Ford on 01-27-2025 CO2 [Moles/Vol] 24.0 mmol/L Normal 21.0-32.0 [facility] Comment on above: Performed By: #### L 500.4050, L100.0100 ####[facility] [address] [place], [address] Chloride assayOrdered By: Tami Ford on 01-27-2025 Chloride [Moles/Vol] 103 mmol/L Normal 98-108 [facility] Comment on above: Performed By: #### L 500.4050, L100.0100 ####[facility] [address] [place], [address] Comprehensive Metabolic Prof ilon 01-27-2025 ALK PHOS 62 U/L Normal 35-104 [facility] Comment on above: Performed By: #### L 500.4050, L100.0100 ####[facility] [address] [place], [address] BUN/CRE 20.8 RATIO High 10-20 [facility] Comment on above: Performed By: #### L 500.4050, L100.0100 ####[facility] [address] [place], [address] ECRCL 93.08 ml/min Normal 50-250 [facility] Comment on above: Performed By: #### L 500.4050, L100.0100 ####[facility] [address] [place], [address] GAP 13 Normal 5-15 [facility] Comment on above: Performed By: #### L 500.4050, L100.0100 ####[facility] [address] [place], [address] Potassium [Moles/Vol] 4.1 mmol/L Normal 3.3-5.[address] [facility] Comment on above: Performed By: #### L 500.4050, L100.0100 ####[facility] [address] [place], [address] T PROT 6.9 g/dL Normal 5.9-8.4 [facility] Comment on above: Performed By: #### L 500.4050, L100.0100 ####[facility] [address] [place], [address] Comprehensive Metabolic Prof ilOrdered By: Cristóbal Ford on 01-27-2025 AST [Catalytic activity/Vol] 39 U/L High <=31 [facility] Comment on above: Performed By: #### L 500.4050, L100.0100 ####[facility] [address] [place], [address] Eosinophil percentageOrdered By: Cristóbal Ford on 01-27-2025 Eosinophils/100 WBC (Bld) 1.1 % 0-5 [facility] Erythrocyte distribution wid th ratioOrdered By: [facility] on 01-27-2025 Erythrocyte distribution width (RBC) [Ratio] 13.7 % 11.6-14.6 [facility] Erythrocyte distribution wid th standard deviationOrdered By: [facility] on 01-27-2025 Erythrocyte distribution width (RBC) [Ratio] 47.5 fl High 35.1-43.9 [facility] Glomerular filtration rate ( GFR) estimation/1.73 sq m using serum, plasma, or whole bOrdered By: Cristóbal Ford on 01-27-2025 GFR/1.73 sq M.predicted among non-blacks MDRD (S/P/Bld) [Vol rate/Area] 80 mL/min/{1.73_m2} Normal >60 [facility] Comment on above: mL/min/1.73m2 CKD-EP I Creatinine Equation (2020) Result Comment: mL/m in/1.73m2 CKD-EPI Creatinine Equation (2020) Performed By: #### L 500.4050, L100.0100 ####[facility] [address] [place], [address] Hematocrit Auto (Bld) [Volum e fraction]Ordered By: Cristóbal Ford on 01-27-2025 Hematocrit (Bld) [Volume fraction] 40.7 % 37-47 [facility] Hemoglobin measurementOrdere d By: Cristóbal Ford on 01-27-2025 Hemoglobin (Bld) [Mass/Vol] 13.3 g/dL 12.0-15.0 [facility] Immature granulocytes/100 WB C Auto (Bld)Ordered By: Cristóbal Ford on 01-27-2025 Immature granulocytes/100 WBC (Bld) 0.200 % 0.0-0.9 [facility] Comment on above: IG% - Immature Granu locytes (promyelocytes, myelocytes and metamyelocytes) > 1% indicates that a LEFT SHIFT is Present. MCV (mean corpuscular volume ) determinationOrdered By: Cristóbal Ford on 01-27-2025 MCV (RBC) [Entitic vol] 93.6 fL 81-99 [facility] Mean corpuscular hemoglobin (MCH) determinationOrdered By: Cristóbal Ford on 01-27-2025 MCH (RBC) [Entitic mass] 30.6 pg 27.0-32.0 [facility] Mean corpuscular hemoglobin concentration (MCHC) determinationOrdered By: Cristóbal Ford on 01-27-2025 MCHC (RBC) [Mass/Vol] 32.7 g/dL 32-[address] [facility] Mean platelet volume determi nationOrdered By: Cristóbal Ford on 01-27-2025 Platelet mean volume (Bld) [Entitic vol] 10.2 fL 6.2-12.0 [facility] Monocyte percentageOrdered B y: Cristóbal Ford on 01-27-2025 Monocytes/100 WBC (Bld) 7.4 % 0-10 [facility] Neutrophil percentageOrdered By: Cristóbal Ford on 01-27-2025 Neutrophils/100 WBC (Bld) 59.9 % 47-70 [facility] Nucleated red blood cell per centageOrdered By: Cristóbal Ford on 01-27-2025 Nucleated RBC/100 WBC (Bld) [Ratio] 0 % 0-5 [facility] Oncology Visit Reporton 01-08 Oncology Visit Report Normal [facility] Platelet countOrdered By: Tami Ford on 01-27-2025 Platelet count TNP [facility] Comment on above: Test not performedPl [...] Platelets LM Ql (Bld) SLT DEC ADEQ [facility] Potassium measurement (mass/ volume)Ordered By: Cristóbal Ford on 01-27-2025 Potassium (Unsp spec) [Mass/Vol] 4.1 mmol/L 3.3-5.1 [facility] RBC Auto (Bld) [#/Vol]Ordere d By: Cristóbal Ford on 01-27-2025 RBC (Bld) [#/Vol] 4.35 10*6/uL 4.2-5.[address] [facility] Serum creatinine measurement (mass/volume)Ordered By: Cristóbal Ford on 01-27-2025 Creatinine [Mass/Vol] 0.86 mg/dL Normal 0.70-1.[address] [facility] Comment on above: Performed By: #### L 500.4050, L100.0100 ####[facility] [address] [place], [address] Serum globulin measurementOr dered By: Cristóbal Ford on 01-27-2025 Globulin (S) [Mass/Vol] 2.7 g/dL Normal 2.2-4.2 [facility] Comment on above: Performed By: #### L 500.4050, L100.0100 ####[facility] [address] [place], [address] Serum glucose measurement (m ass/volume)Ordered By: Cristóbal Ford on 01-27-2025 Glucose [Mass/Vol] 103 mg/dL High 70-99 [facility] Comment on above: Performed By: #### L 500.4050, L100.0100 ####[facility] [address] [place], [address] Serum or plasma alanine alonzo otransferase (ALT) measurementOrdered By: Cristóbal Ford on 01-27-2025 ALT [Catalytic activity/Vol] 39 U/L High <=34 [facility] Comment on above: Performed By: #### L 500.4050, L100.0100 ####[facility] [address] [place], [address] Serum or plasma albumin paul urement (mass/volume)Ordered By: Cristóbal Ford on 01-27-2025 Albumin [Mass/Vol] 4.2 g/dL Normal 3.5-5.0 [facility] Comment on above: Performed By: #### L 500.4050, L100.0100 ####[facility] [address] [place], [address] Serum or plasma albumin/glob ulin mass ratioOrdered By: Cristóbal Ford on 01-27-2025 Albumin/Globulin [Mass ratio] 1.5 {ratio} Normal 0.9-2.4 [facility] Comment on above: Performed By: #### L 500.4050, L100.0100 ####[facility] [address] [place], [address] Serum or plasma alkaline ubaldo sphatase measurementOrdered By: Cristóbal Ford on 01-27-2025 ALP [Catalytic activity/Vol] 62 U/L 35-104 [facility] Serum or plasma calcium paul urement (mass/volume)Ordered By: Cristóbal Ford on 01-27-2025 Calcium [Mass/Vol] 10.2 mg/dL Normal 7.6-11.0 [facility] Comment on above: Performed By: #### L 500.4050, L100.0100 ####[facility] [address] [place], [address] Serum or plasma carcinoembry onic antigen measurement (mass/volume)Ordered By: Genna Zuniga on 01-27-2025 Carcinoembryonic Ag [Mass/Vol] 1.5 ng/mL 0.0-4.7 [facility] Comment on above: Nonsmokers <3.9 Smok ers <5.6[employer] Electrochemiluminescence Immunoassay(ECLIA)Values obtained with different assay methods or kitscannot be used interchangeably. Results cannot beinterpreted as absolute evidence of the presence orabsence of malignant disease. Serum or plasma urea nitroge n measurement (mass/volume)Ordered By: Cristóbal Ford on 01-27-2025 Urea nitrogen [Mass/Vol] 18 mg/dL Normal 4-19 [facility] Comment on above: Performed By: #### L 500.4050, L100.0100 ####[facility] [address] [place], [address] Sodium levelOrdered By: Hudson Ford on 01-27-2025 Sodium [Moles/Vol] 140 mmol/L Normal 133-145 [facility] Comment on above: Performed By: #### L 500.4050, L100.0100 ####[facility] [address] [place], [address] Total proteinOrdered By: Jose G Ford on 01-27-2025 Protein [Mass/Vol] 6.9 g/dL 5.9-8.4 [facility] White blood cell (WBC) count Ordered By: Cristóbal Ford on 01-27-2025 WBC (Bld) [#/Vol] 6.3 10*3/uL 4.4-11.0 [facility] CA 15-3on 01-07-2025 CA 15-3 59.9 U/mL Abnormal 0.0-25.0 [facility] Comment on above: Result Comment: [employer] Electrochemiluminescence Immunoassay(ECLIA)Values obtained with different assay methods or kits cannotbe used interchangeably. Results cannot be interpreted asabsolute evidence of the presence or absence of malignantdisease.Performed at: [facility] [id number] Director: Ervin Hitchcock PhD, Phone: [phone] Performed By: #### L 3100.5000, L3100.5030, L100.0100, L3100.2300, L3100.5040, L504.2610, L500.4050 ####[facility] [address] [place], [address] CA 27.29on 01-07-2025 CA 27.29 91.6 U/mL Abnormal 0.0-38.6 [facility] Comment on above: Result Comment: [employer] Immunochemiluminometric Methodology (ICMA)Values obtained with different assay methods or kits cannotbe used interchangeably. Results cannot be interpreted asabsolute evidence of the presence or absence of malignantdisease. Performed By: #### L 3100.5000, L3100.5030, L100.0100, L3100.2300, L3100.5040, L504.2610, L500.4050 ####[facility] [address] [place], [address] Cancer Antigen 125on 025 CA 125 10.9 U/mL Normal 0.0-38.1 [facility] Comment on above: Result Comment: [employer] Electrochemiluminescence Immunoassay(ECLIA)Values obtained with different assay methods or kits cannotbe used interchangeably. Results cannot be interpreted asabsolute evidence of the presence or absence of malignantdisease. Performed By: #### L 3100.5000, L3100.5030, L100.0100, L3100.2300, L3100.5040, L504.2610, L500.4050 ####[facility] [address] [place], [address] Carcinoembryonic Antigenon 0 01-07-2025 CEA 1.5 ng/mL Normal 0.0-4.7 [facility] Comment on above: Result Comment: Nons mokers <3.9 Smokers <5.6[employer] Electrochemiluminescence Immunoassay(ECLIA)Values obtained with different assay methods or kitscannot be used interchangeably. Results cannot beinterpreted as absolute evidence of the presence orabsence of malignant disease. Performed By: #### L 3100.5000, L3100.5030, L100.0100, L3100.2300, L3100.5040, L504.2610, L500.4050 ####[facility] [address] [place], [address] Absolute lymphocyte countOrd ered By: Cristóbal Ford on 01-06-2025 Lymphocytes Auto (Unsp spec) [#/Vol] 2.55 10*3/uL 0.83-4.51 [facility] Absolute neutrophil countOrd ered By: Cristóbal Ford on 01-06-2025 Neutrophils (Bld) [#/Vol] 6.0 10*3/uL 2.0-7.7 [facility] Anion gap in Serum or Plasma Ordered By: Cristóbal Ford on 01-06-2025 Anion gap [Moles/Vol] 11 mmol/L 5-[address] [facility] Automated lymphocyte count a s percentage of total leukocytesOrdered By: Cristóbal Ford on 01-06-2025 Lymphocytes/100 WBC Auto (Unsp spec) 27.4 % 19-41 [facility] BUN/creatinine ratioOrdered By: Cristóbal Ford on 01-06-2025 Urea nitrogen/Creatinine [Mass ratio] 23.4 mg/mg High 10-20 [facility] Basophil percentageOrdered B y: Cristóbal oFrd on 01-06-2025 Basophils/100 WBC (Bld) 0.2 % 0-1 [facility] Bilirubin, totalOrdered By: Cristóbal Ford on 01-06-2025 Bilirubin [Mass/Vol] 0.23 mg/dL 0.00-1.30 [facility] CA 15-3Ordered By: Cristóbal smart on 01-06-2025 CA 15-3 59.9 U/mL High 0.0-25.0 [facility] Comment on above: [employer] El ectrochemiluminescence Immunoassay(ECLIA)Values obtained with different assay methods or kits cannotbe used interchangeably. Results cannot be interpreted asabsolute evidence of the presence or absence of malignantdisease.Performed at: [facility] [id number] Director: Ervin Hitchcock PhD, Phone: [phone] CA 27.29Ordered By: Cristóbal boilvar on 01-06-2025 CA 27.29 91.6 U/mL High 0.0-38.6 [facility] Comment on above: [employer] Immu nochemiluminometric Methodology (ICMA)Values obtained with different assay methods or kits cannotbe used interchangeably. Results cannot be interpreted asabsolute evidence of the presence or absence of malignantdisease. CBC W/Diff, Automatedon 12-09 Absolute Lymph 2.55 X10 3/uL Normal 0.83-4.51 [facility] Comment on above: Performed By: #### L 3100.5000, L3100.5030, L100.0100, L3100.2300, L3100.5040, L504.2610, L500.4050 ####[facility] [address] [place], [address] Absolute Neut 6.0 X10 3/uL Normal 2.0-7.7 [facility] Comment on above: Performed By: #### L 3100.5000, L3100.5030, L100.0100, L3100.2300, L3100.5040, L504.2610, L500.4050 ####[facility] [address] [place], [address] Basophils/100 WBC (Bld) 0.2 % Normal 0-1 [facility] Comment on above: Performed By: #### L 3100.5000, L3100.5030, L100.0100, L3100.2300, L3100.5040, L504.2610, L500.4050 ####[facility] [address] [place], [address] Eosinophils/100 WBC (Bld) 1.0 % Normal 0-5 [facility] Comment on above: Performed By: #### L 3100.5000, L3100.5030, L100.0100, L3100.2300, L3100.5040, L504.2610, L500.4050 ####[facility] [address] [place], [address] Erythrocyte distribution width (RBC) [Ratio] 14.6 % Normal 11.6-14.6 [facility] Comment on above: Performed By: #### L 3100.5000, L3100.5030, L100.0100, L3100.2300, L3100.5040, L504.2610, L500.4050 ####[facility] [address] [place], [address] Hematocrit (Bld) [Volume fraction] 40.9 % Normal 37-47 [facility] Comment on above: Performed By: #### L 3100.5000, L3100.5030, L100.0100, L3100.2300, L3100.5040, L504.2610, L500.4050 ####[facility] [address] [place], [address] Hemoglobin (Bld) [Mass/Vol] 13.2 g/dL Normal 12.0-15.0 [facility] Comment on above: Performed By: #### L 3100.5000, L3100.5030, L100.0100, L3100.2300, L3100.5040, L504.2610, L500.4050 ####[facility] [address] [place], [address] IG% 0.400 Normal 0.0-0.9 [facility] Comment on above: Result Comment: IG% - Immature Granulocytes (promyelocytes, myelocytes andmetamyelocytes) > 1% indicates that a LEFT SHIFT is Present. Performed By: #### L 3100.5000, L3100.5030, L100.0100, L3100.2300, L3100.5040, L504.2610, L500.4050 ####[facility] [address] [place], [address] Lymphocytes/100 WBC (Bld) 27.4 % Normal 19-41 [facility] Comment on above: Performed By: #### L 3100.5000, L3100.5030, L100.0100, L3100.2300, L3100.5040, L504.2610, L500.4050 ####[facility] [address] [place], [address] MCH (RBC) [Entitic mass] 30.2 pg Normal 27.0-32.0 [facility] Comment on above: Performed By: #### L 3100.5000, L3100.5030, L100.0100, L3100.2300, L3100.5040, L504.2610, L500.4050 ####[facility] [address] [place], [address] MCHC (RBC) [Mass/Vol] 32.3 g/dL Normal 32-[address] [facility] Comment on above: Performed By: #### L 3100.5000, L3100.5030, L100.0100, L3100.2300, L3100.5040, L504.2610, L500.4050 ####[facility] [address] [place], [address] MCV (RBC) [Entitic vol] 93.6 fL Normal 81-99 [facility] Comment on above: Performed By: #### L 3100.5000, L3100.5030, L100.0100, L3100.2300, L3100.5040, L504.2610, L500.4050 ####[facility] [address] [place], [address] Monocytes/100 WBC (Bld) 6.6 % Normal 0-10 [facility] Comment on above: Performed By: #### L 3100.5000, L3100.5030, L100.0100, L3100.2300, L3100.5040, L504.2610, L500.4050 ####[facility] [address] [place], [address] Neutrophils/100 WBC (Bld) 64.4 % Normal 47-70 [facility] Comment on above: Performed By: #### L 3100.5000, L3100.5030, L100.0100, L3100.2300, L3100.5040, L504.2610, L500.4050 ####[facility] [address] [place], [address] Nucleated RBC (Bld) [#/Vol] 0 10*3/uL Normal 0-5 [facility] Comment on above: Performed By: #### L 3100.5000, L3100.5030, L100.0100, L3100.2300, L3100.5040, L504.2610, L500.4050 ####[facility] [address] [place], [address] Platelet mean volume (Bld) [Entitic vol] 9.7 fL Normal 6.2-12.0 [facility] Comment on above: Performed By: #### L 3100.5000, L3100.5030, L100.0100, L3100.2300, L3100.5040, L504.2610, L500.4050 ####[facility] [address] [place], [address] Platelets (Bld) [#/Vol] 162 10*3/uL Normal 150-450 [facility] Comment on above: Performed By: #### L 3100.5000, L3100.5030, L100.0100, L3100.2300, L3100.5040, L504.2610, L500.4050 ####[facility] [address] [place], [address] RBC (Bld) [#/Vol] 4.37 10*6/uL Normal 4.2-5.[address] [facility] Comment on above: Performed By: #### L 3100.5000, L3100.5030, L100.0100, L3100.2300, L3100.5040, L504.2610, L500.4050 ####[facility] [address] [place], [address] RDW SD 50.5 fl High 35.1-43.9 [facility] Comment on above: Performed By: #### L 3100.5000, L3100.5030, L100.0100, L3100.2300, L3100.5040, L504.2610, L500.4050 ####[facility] [address] [place], [address] WBC (Bld) [#/Vol] 9.3 10*3/uL Normal 4.4-11.0 [facility] Comment on above: Performed By: #### L 3100.5000, L3100.5030, L100.0100, L3100.2300, L3100.5040, L504.2610, L500.4050 ####[facility] [address] [place], [address] Cancer antigen 125 (CA-125) measurementOrdered By: Cristóbal Ford on 01-06-2025 Cancer antigen 125 (CA-125) measurement 10.9 U/mL 0.0-38.1 [facility] Comment on above: [employer] El ectrochemiluminescence Immunoassay(ECLIA)Values obtained with different assay methods or kits cannotbe used interchangeably. Results cannot be interpreted asabsolute evidence of the presence or absence of malignantdisease. Carbon dioxide, total [Moles /volume] in Central venous bloodOrdered By: Cristóbal Ford on 01-06-2025 CO2 [Moles/Vol] 24.9 mmol/L 21.0-32.0 [facility] Chloride assayOrdered By: Tami Ford on 01-06-2025 Chloride [Moles/Vol] 104 mmol/L 98-108 [facility] Comprehensive Metabolic Prof ilon 01-06-2025 Albumin [Mass/Vol] 4.3 g/dL Normal 3.5-5.0 [facility] Comment on above: Performed By: #### L 3100.5000, L3100.5030, L100.0100, L3100.2300, L3100.5040, L504.2610, L500.4050 ####[facility] [address] [place], [address] Albumin/Globulin [Mass ratio] 1.7 {ratio} Normal 0.9-2.4 [facility] Comment on above: Performed By: #### L 3100.5000, L3100.5030, L100.0100, L3100.2300, L3100.5040, L504.2610, L500.4050 ####[facility] [address] [place], [address] ALK PHOS 63 U/L Normal 35-104 [facility] Comment on above: Performed By: #### L 3100.5000, L3100.5030, L100.0100, L3100.2300, L3100.5040, L504.2610, L500.4050 ####[facility] [address] [place], [place], [id number] ALT [Catalytic activity/Vol] 44 U/L High <=34 [facility] Comment on above: Performed By: #### L 3100.5000, L3100.5030, L100.0100, L3100.2300, L3100.5040, L504.2610, L500.4050 ####[facility] [address] [place], [address] AST [Catalytic activity/Vol] 51 U/L High <=31 [facility] Comment on above: Result Comment: Hemo lysis present, Results??could be affected.?? Performed By: #### L 3100.5000, L3100.5030, L100.0100, L3100.2300, L3100.5040, L504.2610, L500.4050 ####[facility] [address] [place], [address] Bilirubin [Mass/Vol] 0.23 mg/dL Normal 0.00-1.30 [facility] Comment on above: Performed By: #### L 3100.5000, L3100.5030, L100.0100, L3100.2300, L3100.5040, L504.2610, L500.4050 ####[facility] [address] [place], [address] BUN/CRE 23.4 RATIO High 10-20 [facility] Comment on above: Performed By: #### L 3100.5000, L3100.5030, L100.0100, L3100.2300, L3100.5040, L504.2610, L500.4050 ####[facility] [address] [place], [address] Calcium [Mass/Vol] 10.7 mg/dL Normal 7.6-11.0 [facility] Comment on above: Performed By: #### L 3100.5000, L3100.5030, L100.0100, L3100.2300, L3100.5040, L504.2610, L500.4050 ####[facility] [address] [place], [address] Chloride [Moles/Vol] 104 mmol/L Normal 98-108 [facility] Comment on above: Performed By: #### L 3100.5000, L3100.5030, L100.0100, L3100.2300, L3100.5040, L504.2610, L500.4050 ####[facility] [address] [place], [address] CO2 [Moles/Vol] 24.9 mmol/L Normal 21.0-32.0 [facility] Comment on above: Performed By: #### L 3100.5000, L3100.5030, L100.0100, L3100.2300, L3100.5040, L504.2610, L500.4050 ####[facility] [address] [place], [address] Creatinine [Mass/Vol] 0.75 mg/dL Normal 0.70-1.[address] [facility] Comment on above: Performed By: #### L 3100.5000, L3100.5030, L100.0100, L3100.2300, L3100.5040, L504.2610, L500.4050 ####[facility] [address] [place], [address] ECRCL 107.18 ml/min Normal 50-250 [facility] Comment on above: Performed By: #### L 3100.5000, L3100.5030, L100.0100, L3100.2300, L3100.5040, L504.2610, L500.4050 ####[facility] [address] [place], [address] GAP 11 Normal 5-15 [facility] Comment on above: Performed By: #### L 3100.5000, L3100.5030, L100.0100, L3100.2300, L3100.5040, L504.2610, L500.4050 ####[facility] [address] [place], [address] GFR/1.73 sq M.predicted among non-blacks MDRD (S/P/Bld) [Vol rate/Area] 94 mL/min/{1.73_m2} Normal >60 [facility] Comment on above: Result Comment: mL/m in/1.73m2 CKD-EPI Creatinine Equation (2020) Performed By: #### L 3100.5000, L3100.5030, L100.0100, L3100.2300, L3100.5040, L504.2610, L500.4050 ####[facility] [address] [place], [address] Globulin (S) [Mass/Vol] 2.6 g/dL Normal 2.2-4.2 [facility] Comment on above: Performed By: #### L 3100.5000, L3100.5030, L100.0100, L3100.2300, L3100.5040, L504.2610, L500.4050 ####[facility] [address] [place], [address] Glucose [Mass/Vol] 95 mg/dL Normal 70-99 [facility] Comment on above: Performed By: #### L 3100.5000, L3100.5030, L100.0100, L3100.2300, L3100.5040, L504.2610, L500.4050 ####[facility] [address] [place], [address] Potassium [Moles/Vol] 4.2 mmol/L Normal 3.3-5.[address] [facility] Comment on above: Result Comment: Hemo lysis present, Results??could be affected.?? Performed By: #### L 3100.5000, L3100.5030, L100.0100, L3100.2300, L3100.5040, L504.2610, L500.4050 ####[facility] [address] [place], [address] Sodium [Moles/Vol] 140 mmol/L Normal 133-145 [facility] Comment on above: Performed By: #### L 3100.5000, L3100.5030, L100.0100, L3100.2300, L3100.5040, L504.2610, L500.4050 ####[facility] [address] [place], [address] T PROT 6.9 g/dL Normal 5.9-8.4 [facility] Comment on above: Performed By: #### L 3100.5000, L3100.5030, L100.0100, L3100.2300, L3100.5040, L504.2610, L500.4050 ####[facility] [address] [place], [address] Urea nitrogen [Mass/Vol] 18 mg/dL Normal 4-19 [facility] Comment on above: Performed By: #### L 3100.5000, L3100.5030, L100.0100, L3100.2300, L3100.5040, L504.2610, L500.4050 ####[facility] [address] [place], [address] Eosinophil percentageOrdered By: [place] Liliana on 01-06-2025 Eosinophils/100 WBC (Bld) 1.0 % 0-5 [facility] Erythrocyte distribution wid th ratioOrdered By: Cristóbal Liliana on 01-06-2025 Erythrocyte distribution width (RBC) [Ratio] 14.6 % 11.6-14.6 [facility] Erythrocyte distribution wid th standard deviationOrdered By: Cristóbal Ford on 01-06-2025 Erythrocyte distribution width (RBC) [Ratio] 50.5 fl High 35.1-43.9 [facility] Glomerular filtration rate ( GFR) estimation/1.73 sq m using serum, plasma, or whole bOrdered By: Cristóbal Ford on 01-06-2025 GFR/1.73 sq M.predicted among non-blacks MDRD (S/P/Bld) [Vol rate/Area] 94 mL/min/{1.73_m2} >60 [facility] Comment on above: mL/min/1.73m2 CKD-EP I Creatinine Equation (2020) Hematocrit Auto (Bld) [Volum e fraction]Ordered By: Cristóbal Ford on 01-06-2025 Hematocrit (Bld) [Volume fraction] 40.9 % 37-47 [facility] Hemoglobin measurementOrdere d By: Cristóbal Ford on 01-06-2025 Hemoglobin (Bld) [Mass/Vol] 13.2 g/dL 12.0-15.0 [facility] Immature granulocytes/100 WB C Auto (Bld)Ordered By: Cristóbal Ford on 01-06-2025 Immature granulocytes/100 WBC (Bld) 0.400 % 0.0-0.9 [facility] Comment on above: IG% - Immature Granu locytes (promyelocytes, myelocytes and metamyelocytes) > 1% indicates that a LEFT SHIFT is Present. LDHon 01-06-2025 LDH 204 U/L Normal 84-246 [facility] Comment on above: Order Comment: 1 Result Comment: Hemo lysis present, Results??could be affected.?? Performed By: #### L 3100.5000, L3100.5030, L100.0100, L3100.2300, L3100.5040, L504.2610, L500.4050 ####[facility] [address] [place], [address] Laboratory - Chemistry and C hemistry - challengeOrdered By: Cristóbal Ford on 01-06-2025 AST [Catalytic activity/Vol] 51 U/L High <32 [facility] Comment on above: Hemolysis present, R esults could be affected. Lactate dehydrogenase (LDH) measurementOrdered By: Cristóbal Ford on 01-06-2025 LDH [Catalytic activity/Vol] 204 U/L 84-246 [facility] Comment on above: Hemolysis present, R esults could be affected. MCV (mean corpuscular volume ) determinationOrdered By: Cristóbal Ford on 01-06-2025 MCV (RBC) [Entitic vol] 93.6 fL 81-99 [facility] Mean corpuscular hemoglobin (MCH) determinationOrdered By: Cristóbal Ford on 01-06-2025 MCH (RBC) [Entitic mass] 30.2 pg 27.0-32.0 [facility] Mean corpuscular hemoglobin concentration (MCHC) determinationOrdered By: Cristóbal Ford on 01-06-2025 MCHC (RBC) [Mass/Vol] 32.3 g/dL 32-[address] [facility] Mean platelet volume determi nationOrdered By: Cristóbal Ford on 01-06-2025 Platelet mean volume (Bld) [Entitic vol] 9.7 fL 6.2-12.0 [facility] Monocyte percentageOrdered B y: Cristóbal Ford on 01-06-2025 Monocytes/100 WBC (Bld) 6.6 % 0-10 [facility] Neutrophil percentageOrdered By: Cristóbal Ford on 01-06-2025 Neutrophils/100 WBC (Bld) 64.4 % 47-70 [facility] Nucleated red blood cell per centageOrdered By: Cristóbal Ford on 01-06-2025 Nucleated RBC/100 WBC (Bld) [Ratio] 0 % 0-5 [facility] Oncology Visit Reporton 12-09 Oncology Visit Report Normal [facility] Platelet countOrdered By: Tami Ford on 01-06-2025 Platelets (Bld) [#/Vol] 162 10*3/uL 150-450 [facility] Potassium measurement (mass/ volume)Ordered By: Cristóbal Ford on 01-06-2025 Potassium (Unsp spec) [Mass/Vol] 4.2 mmol/L 3.3-5.1 [facility] Comment on above: Hemolysis present, R esults could be affected. RBC Auto (Bld) [#/Vol]Ordere d By: Cristóbal Ford on 01-06-2025 RBC (Bld) [#/Vol] 4.37 10*6/uL 4.2-5.[address] [facility] Serum creatinine measurement (mass/volume)Ordered By: Cristóbal Ford on 01-06-2025 Creatinine [Mass/Vol] 0.75 mg/dL 0.70-1.[address] [facility] Serum globulin measurementOr dered By: Cristóbal Ford on 01-06-2025 Globulin (S) [Mass/Vol] 2.6 g/dL 2.2-4.2 [facility] Serum glucose measurement (m ass/volume)Ordered By: Cristóbal Ford on 01-06-2025 Glucose [Mass/Vol] 95 mg/dL 70-99 [facility] Serum or plasma alanine alonzo otransferase (ALT) measurementOrdered By: Cristóbal Ford on 01-06-2025 ALT [Catalytic activity/Vol] 44 U/L High <35 [facility] Serum or plasma albumin paul urement (mass/volume)Ordered By: Cristóbal Ford on 01-06-2025 Albumin [Mass/Vol] 4.3 g/dL 3.5-5.0 [facility] Serum or plasma albumin/glob ulin mass ratioOrdered By: Cristóbal Ford on 01-06-2025 Albumin/Globulin [Mass ratio] 1.7 {ratio} 0.9-2.4 [facility] Serum or plasma alkaline ubaldo sphatase measurementOrdered By: Cristóbal Ford on 01-06-2025 ALP [Catalytic activity/Vol] 63 U/L 35-104 [facility] Serum or plasma calcium paul urement (mass/volume)Ordered By: Cristóbal Ford on 01-06-2025 Calcium [Mass/Vol] 10.7 mg/dL 7.6-11.0 [facility] Serum or plasma carcinoembry onic antigen measurement (mass/volume)Ordered By: Cristóbal Ford on 01-06-2025 Carcinoembryonic Ag [Mass/Vol] 1.5 ng/mL 0.0-4.7 [facility] Comment on above: Nonsmokers <3.9 Smok ers <5.6[employer] Electrochemiluminescence Immunoassay(ECLIA)Values obtained with different assay methods or kitscannot be used interchangeably. Results cannot beinterpreted as absolute evidence of the presence orabsence of malignant disease. Serum or plasma urea nitroge n measurement (mass/volume)Ordered By: Cristóbal Ford on 01-06-2025 Urea nitrogen [Mass/Vol] 18 mg/dL 4-19 [facility] Sodium levelOrdered By: Hudson Ford on 01-06-2025 Sodium [Moles/Vol] 140 mmol/L 133-145 [facility] Total proteinOrdered By: Jose G Ford on 01-06-2025 Protein [Mass/Vol] 6.9 g/dL 5.9-8.4 [facility] White blood cell (WBC) count Ordered By: Cristóbal Ford on 01-06-2025 WBC (Bld) [#/Vol] 9.3 10*3/uL 4.4-11.0 [facility] Office Visit Reporton 2024 Office Visit Report Normal [facility] Internal Medicine Office Vis iton 12-29-2024 Internal Medicine Office Visit Normal [facility] Oncology Visit Reporton 12-07 [facility] [facility] PET/CT Tumor Base -Thigh Sub son 12-07-2024 PET/CT Tumor Base -Thigh Subs Normal [facility] Limited echocardiogram repor tOrdered By: Jesus Varma on 12-02-2024 Study report [facility] Cardi[facility] [address] [place] [address] ONC Echo, Limited Study 12/02/24 0702 MR#: [id number] Acct: [id number] Name: LISSETT RUSSELL Rep #:[id number] : 1970 54 From: Jesus Zeng Attending Dr: Dr. Cristóbal Ford MD S tatus: REG CLI Ordering Dr: Cristóbal Ford MD Date: Location: [facility] Sex: F C Admitted: Reason For Study [...] Dictated: 12/02/24 0702 Date Transcribed: 12/02/24 152 Product Representative: Signed [facility] Work Phone: ONC Echo, Limited Studyon ONC Echo, Limited Study Normal [facility] CA 15-3on 11-26-2024 CA 15-3 62.2 U/mL Abnormal 0.0-25.0 [facility] Comment on above: Result Comment: [employer] Electrochemiluminescence Immunoassay(ECLIA)Values obtained with different assay methods or kits cannotbe used interchangeably. Results cannot be interpreted asabsolute evidence of the presence or absence of malignantdisease.Performed at: [address] [id number] Director: Ervin Hitchcock PhD, Phone: [phone] Performed By: #### L 100.0100, L500.4050, L3100.5030, L3100.5040, L504.2610 ####[facility] [address] [place], [place], [id number] CA 27.29on 11-26-2024 CA 27.29 75.5 U/mL Abnormal 0.0-38.6 [facility] Comment on above: Result Comment: [employer] Immunochemiluminometric Methodology (ICMA)Values obtained with different assay methods or kits cannotbe used interchangeably. Results cannot be interpreted asabsolute evidence of the presence or absence of malignantdisease. Performed By: #### L 100.0100, L500.4050, L3100.5030, L3100.5040, L504.2610 ####[facility] [address] [place], [place], [id number] Absolute lymphocyte countOrd ered By: Cristóbal Ford on 11-25-2024 Lymphocytes Auto (Unsp spec) [#/Vol] 2.44 10*3/uL 0.83-4.51 [facility] Absolute neutrophil countOrd ered By: Cristóbal Ford on 11-25-2024 Neutrophils (Bld) [#/Vol] 5.5 10*3/uL 2.0-7.7 [facility] Anion gap in Serum or Plasma Ordered By: Cristóbal Ford on 11-25-2024 Anion gap [Moles/Vol] 13 mmol/L 5- [facility] Automated lymphocyte count a s percentage of total leukocytesOrdered By: Cristóbal Ford on 11-25-2024 Lymphocytes/100 WBC Auto (Unsp spec) 28.2 % - [facility] BUN/creatinine ratioOrdered By: Cristóbal Ford on 11-25-2024 Urea nitrogen/Creatinine [Mass ratio] 21.0 mg/mg High 10-20 [facility] Basophil percentageOrdered B y: Cristóbal Ford on 11-25-2024 Basophils/100 WBC (Bld) 0.3 % 0-1 [facility] Bilirubin, totalOrdered By: Cristóbal Ford on 11-25-2024 Bilirubin [Mass/Vol] 0.25 mg/dL 0.00-1.30 [facility] CA 15-3Ordered By: Cristóbal smart on 11-25-2024 CA 15-3 62.2 U/mL High 0.0-25.0 [facility] Comment on above: [employer] El ectrochemiluminescence Immunoassay(ECLIA)Values obtained with different assay methods or kits cannotbe used interchangeably. Results cannot be interpreted asabsolute evidence of the presence or absence of malignantdisease.Performed at: [facility] [id number] Director: Ervin Hitchcock PhD, Phone: [phone] CA 27.29Ordered By: Cristóbal bolivar on 11-25-2024 CA 27.29 75.5 U/mL High 0.0-38.6 [facility] Comment on above: [employer] Immu nochemiluminometric Methodology (ICMA)Values obtained with different assay methods or kits cannotbe used interchangeably. Results cannot be interpreted asabsolute evidence of the presence or absence of malignantdisease. CBC W/Diff, Automatedon 11-07 Absolute Lymph 2.44 X10 3/uL Normal 0.83-4.51 [facility] Comment on above: Performed By: #### L 100.0100, L500.4050, L3100.5030, L3100.5040, L504.2610 ####[facility] [address] [place], [address] Absolute Neut 5.5 X10 3/uL Normal 2.0-7.7 [facility] Comment on above: Performed By: #### L 100.0100, L500.4050, L3100.5030, L3100.5040, L504.2610 ####[facility] [address] [place], [address] Basophils/100 WBC (Bld) 0.3 % Normal 0-1 [facility] Comment on above: Performed By: #### L 100.0100, L500.4050, L3100.5030, L3100.5040, L504.2610 ####[facility] [address] [place], [address] Eosinophils/100 WBC (Bld) 1.0 % Normal 0-5 [facility] Comment on above: Performed By: #### L 100.0100, L500.4050, L3100.5030, L3100.5040, L504.2610 ####[facility] [address] [place], [address] Erythrocyte distribution width (RBC) [Ratio] 14.6 % Normal 11.6-14.6 [facility] Comment on above: Performed By: #### L 100.0100, L500.4050, L3100.5030, L3100.5040, L504.2610 ####[facility] [address] [place], [address] Hematocrit (Bld) [Volume fraction] 39.9 % Normal 37-47 [facility] Comment on above: Performed By: #### L 100.0100, L500.4050, L3100.5030, L3100.5040, L504.2610 ####[facility] [address] [place], [address] Hemoglobin (Bld) [Mass/Vol] 13.0 g/dL Normal 12.0-15.0 [facility] Comment on above: Performed By: #### L 100.0100, L500.4050, L3100.5030, L3100.5040, L504.2610 ####[facility] [address] [place], [address] IG% 0.500 Normal 0.0-0.9 [facility] Comment on above: Result Comment: IG% - Immature Granulocytes (promyelocytes, myelocytes andmetamyelocytes) > 1% indicates that a LEFT SHIFT is Present. Performed By: #### L 100.0100, L500.4050, L3100.5030, L3100.5040, L504.2610 ####[facility] [address] [place], [address] Lymphocytes/100 WBC (Bld) 28.2 % Normal 19-41 [facility] Comment on above: Performed By: #### L 100.0100, L500.4050, L3100.5030, L3100.5040, L504.2610 ####[facility] [address] [place], [address] MCH (RBC) [Entitic mass] 29.6 pg Normal 27.0-32.0 [facility] Comment on above: Performed By: #### L 100.0100, L500.4050, L3100.5030, L3100.5040, L504.2610 ####[facility] [address] [place], [address] MCHC (RBC) [Mass/Vol] 32.6 g/dL Normal 32-[address] [facility] Comment on above: Performed By: #### L 100.0100, L500.4050, L3100.5030, L3100.5040, L504.2610 ####[facility] [address] [place], [address] MCV (RBC) [Entitic vol] 90.9 fL Normal 81-99 [facility] Comment on above: Performed By: #### L 100.0100, L500.4050, L3100.5030, L3100.5040, L504.2610 ####[facility] [address] [place], [address] Monocytes/100 WBC (Bld) 6.2 % Normal 0-10 [facility] Comment on above: Performed By: #### L 100.0100, L500.4050, L3100.5030, L3100.5040, L504.2610 ####[facility] [address] [place], [address] Neutrophils/100 WBC (Bld) 63.8 % Normal 47-70 [facility] Comment on above: Performed By: #### L 100.0100, L500.4050, L3100.5030, L3100.5040, L504.2610 ####[facility] [address] [place], [address] Nucleated RBC (Bld) [#/Vol] 0 10*3/uL Normal 0-5 [facility] Comment on above: Performed By: #### L 100.0100, L500.4050, L3100.5030, L3100.5040, L504.2610 ####[facility] [address] [place], [address] Platelet mean volume (Bld) [Entitic vol] 9.8 fL Normal 6.2-12.0 [facility] Comment on above: Performed By: #### L 100.0100, L500.4050, L3100.5030, L3100.5040, L504.2610 ####[facility] [address] [place], [address] Platelets (Bld) [#/Vol] 162 10*3/uL Normal 150-450 [facility] Comment on above: Performed By: #### L 100.0100, L500.4050, L3100.5030, L3100.5040, L504.2610 ####[facility] [address] [place], [address] RBC (Bld) [#/Vol] 4.39 10*6/uL Normal 4.2-5.[address] [facility] Comment on above: Performed By: #### L 100.0100, L500.4050, L3100.5030, L3100.5040, L504.2610 ####[facility] [address] [place], [address] RDW SD 49.1 fl High 35.1-43.9 [facility] Comment on above: Performed By: #### L 100.0100, L500.4050, L3100.5030, L3100.5040, L504.2610 ####[facility] [address] [place], [address] WBC (Bld) [#/Vol] 8.7 10*3/uL Normal 4.4-11.0 [facility] Comment on above: Performed By: #### L 100.0100, L500.4050, L3100.5030, L3100.5040, L504.2610 ####[facility] [address] [place], [address] Carbon dioxide, total [Moles /volume] in Central venous bloodOrdered By: Cristóbal Ford on 11-25-2024 CO2 [Moles/Vol] 24.6 mmol/L 21.0-32.0 [facility] Chloride assayOrdered By: Tami Ford on 11-25-2024 Chloride [Moles/Vol] 104 mmol/L 98-108 [facility] Comprehensive Metabolic Prof ilon 11-25-2024 Albumin [Mass/Vol] 4.4 g/dL Normal 3.5-5.0 [facility] Comment on above: Performed By: #### L 100.0100, L500.4050, L3100.5030, L3100.5040, L504.2610 ####[facility] [address] [place], [address] Albumin/Globulin [Mass ratio] 1.8 {ratio} Normal 0.9-2.4 [facility] Comment on above: Performed By: #### L 100.0100, L500.4050, L3100.5030, L3100.5040, L504.2610 ####[facility] [address] [place], [address] ALK PHOS 66 U/L Normal 35-104 [facility] Comment on above: Performed By: #### L 100.0100, L500.4050, L3100.5030, L3100.5040, L504.2610 ####[facility] [address] [place], [address] ALT [Catalytic activity/Vol] 36 U/L High <=34 [facility] Comment on above: Performed By: #### L 100.0100, L500.4050, L3100.5030, L3100.5040, L504.2610 ####[facility] [address] [place], [address] AST [Catalytic activity/Vol] 40 U/L High <=31 [facility] Comment on above: Performed By: #### L 100.0100, L500.4050, L3100.5030, L3100.5040, L504.2610 ####[facility] [address] [place], [address] Bilirubin [Mass/Vol] 0.25 mg/dL Normal 0.00-1.30 [facility] Comment on above: Performed By: #### L 100.0100, L500.4050, L3100.5030, L3100.5040, L504.2610 ####[facility] [address] [place], [address] BUN/CRE 21.0 RATIO High 10-20 [facility] Comment on above: Performed By: #### L 100.0100, L500.4050, L3100.5030, L3100.5040, L504.2610 ####[facility] [address] [place], [address] Calcium [Mass/Vol] 10.1 mg/dL Normal 7.6-11.0 [facility] Comment on above: Performed By: #### L 100.0100, L500.4050, L3100.5030, L3100.5040, L504.2610 ####[facility] [address] [place], [address] Chloride [Moles/Vol] 104 mmol/L Normal 98-108 [facility] Comment on above: Performed By: #### L 100.0100, L500.4050, L3100.5030, L3100.5040, L504.2610 ####[facility] [address] [place], [address] CO2 [Moles/Vol] 24.6 mmol/L Normal 21.0-32.0 [facility] Comment on above: Performed By: #### L 100.0100, L500.4050, L3100.5030, L3100.5040, L504.2610 ####[facility] [address] [place], [address] Creatinine [Mass/Vol] 0.76 mg/dL Normal 0.70-1.[address] [facility] Comment on above: Performed By: #### L 100.0100, L500.4050, L3100.5030, L3100.5040, L504.2610 ####[facility] [address] [place], [address] ECRCL 105.02 ml/min Normal 50-250 [facility] Comment on above: Performed By: #### L 100.0100, L500.4050, L3100.5030, L3100.5040, L504.2610 ####[facility] [address] [place], [address] GAP 13 Normal 5-15 [facility] Comment on above: Performed By: #### L 100.0100, L500.4050, L3100.5030, L3100.5040, L504.2610 ####[facility] [address] [place], [address] GFR/1.73 sq M.predicted among non-blacks MDRD (S/P/Bld) [Vol rate/Area] 93 mL/min/{1.73_m2} Normal >60 [facility] Comment on above: Result Comment: mL/m in/1.73m2 CKD-EPI Creatinine Equation (2020) Performed By: #### L 100.0100, L500.4050, L3100.5030, L3100.5040, L504.2610 ####[facility] [address] [place], [address] Globulin (S) [Mass/Vol] 2.4 g/dL Normal 2.2-4.2 [facility] Comment on above: Performed By: #### L 100.0100, L500.4050, L3100.5030, L3100.5040, L504.2610 ####[facility] [address] [place], [address] Glucose [Mass/Vol] 109 mg/dL High 70-99 [facility] Comment on above: Performed By: #### L 100.0100, L500.4050, L3100.5030, L3100.5040, L504.2610 ####[facility] [address] [place], [address] Potassium [Moles/Vol] 3.9 mmol/L Normal 3.3-5.[address] [facility] Comment on above: Performed By: #### L 100.0100, L500.4050, L3100.5030, L3100.5040, L504.2610 ####[facility] [address] [place], [address] Sodium [Moles/Vol] 141 mmol/L Normal 133-145 [facility] Comment on above: Performed By: #### L 100.0100, L500.4050, L3100.5030, L3100.5040, L504.2610 ####[facility] [address] [place], [address] T PROT 6.8 g/dL Normal 5.9-8.4 [facility] Comment on above: Performed By: #### L 100.0100, L500.4050, L3100.5030, L3100.5040, L504.2610 ####[facility] [address] [place], [address] Urea nitrogen [Mass/Vol] 16 mg/dL Normal - [facility] Comment on above: Performed By: #### L 100.0100, L500.4050, L3100.5030, L3100.5040, L504.2610 ####[facility] [address] [place], [address] Eosinophil percentageOrdered By: Cristóbal Ford on 11-25-2024 Eosinophils/100 WBC (Bld) 1.0 % 0-5 [facility] Erythrocyte distribution wid th ratioOrdered By: Cristóbal Ford on 11-25-2024 Erythrocyte distribution width (RBC) [Ratio] 14.6 % 11.6-14.6 [facility] Erythrocyte distribution wid th standard deviationOrdered By: Cristóbal Ford on 11-25-2024 Erythrocyte distribution width (RBC) [Ratio] 49.1 fl High 35.1-43.9 [facility] Glomerular filtration rate ( GFR) estimation/1.73 sq m using serum, plasma, or whole bOrdered By: Cristóbal Ford on 11-25-2024 GFR/1.73 sq M.predicted among non-blacks MDRD (S/P/Bld) [Vol rate/Area] 93 mL/min/{1.73_m2} >60 [facility] Comment on above: mL/min/1.73m2 CKD-EP I Creatinine Equation (2020) Hematocrit Auto (Bld) [Volum e fraction]Ordered By: Cristóbal Ford on 11-25-2024 Hematocrit (Bld) [Volume fraction] 39.9 % 37-47 [facility] Hemoglobin measurementOrdere d By: Cristóbal Ford on 11-25-2024 Hemoglobin (Bld) [Mass/Vol] 13.0 g/dL 12.0-15.0 [facility] Immature granulocytes/100 WB C Auto (Bld)Ordered By: Cristóbal Ford on 11-25-2024 Immature granulocytes/100 WBC (Bld) 0.500 % 0.0-0.9 [facility] Comment on above: IG% - Immature Granu locytes (promyelocytes, myelocytes and metamyelocytes) > 1% indicates that a LEFT SHIFT is Present. LDHon 11-25-2024 LDH 171 U/L Normal 84-246 [facility] Comment on above: Order Comment: 1 Performed By: #### L 100.0100, L500.4050, L3100.5030, L3100.5040, L504.2610 ####[facility] [address] [place], [place], [address] Laboratory - Chemistry and C hemistry - challengeOrdered By: Cristóbal Ford on 11-25-2024 AST [Catalytic activity/Vol] 40 U/L High <32 [facility] Lactate dehydrogenase (LDH) measurementOrdered By: Cristóbal Ford on 11-25-2024 LDH [Catalytic activity/Vol] 171 U/L 84-246 [facility] MCV (mean corpuscular volume ) determinationOrdered By: Cristóbal Ford on 11-25-2024 MCV (RBC) [Entitic vol] 90.9 fL 81-99 [facility] Mean corpuscular hemoglobin (MCH) determinationOrdered By: Cristóbal Ford on 11-25-2024 MCH (RBC) [Entitic mass] 29.6 pg 27.0-32.0 [facility] Mean corpuscular hemoglobin concentration (MCHC) determinationOrdered By: Cristóbal Ford on 11-25-2024 MCHC (RBC) [Mass/Vol] 32.6 g/dL 32-[address] [facility] Mean platelet volume determi nationOrdered By: Cristóbal Ford on 11-25-2024 Platelet mean volume (Bld) [Entitic vol] 9.8 fL 6.2-12.0 [facility] Monocyte percentageOrdered B y: Cristóbal Ford on 11-25-2024 Monocytes/100 WBC (Bld) 6.2 % 0-10 [facility] Neutrophil percentageOrdered By: Cristóbal Ford on 11-25-2024 Neutrophils/100 WBC (Bld) 63.8 % 47-70 [facility] Nucleated red blood cell per centageOrdered By: Cristóbal Ford on 11-25-2024 Nucleated RBC/100 WBC (Bld) [Ratio] 0 % 0-5 [facility] Oncology Visit Reporton 11-07 Oncology Visit Report Normal [facility] Platelet countOrdered By: Tami Ford on 11-25-2024 Platelets (Bld) [#/Vol] 162 10*3/uL 150-450 [facility] Potassium measurement (mass/ volume)Ordered By: Cristóbal Ford on 11-25-2024 Potassium (Unsp spec) [Mass/Vol] 3.9 mmol/L 3.3-5.1 [facility] RBC Auto (Bld) [#/Vol]Ordere d By: Cristóbal Ford on 11-25-2024 RBC (Bld) [#/Vol] 4.39 10*6/uL 4.2-5.[address] [facility] Serum creatinine measurement (mass/volume)Ordered By: Cristóbal Ford on 11-25-2024 Creatinine [Mass/Vol] 0.76 mg/dL 0.70-1.[address] [facility] Serum globulin measurementOr dered By: Cristóbal Ford on 11-25-2024 Globulin (S) [Mass/Vol] 2.4 g/dL 2.2-4.2 [facility] Serum glucose measurement (m ass/volume)Ordered By: Cristóbal Ford on 11-25-2024 Glucose [Mass/Vol] 109 mg/dL High 70-99 [facility] Serum or plasma alanine alonzo otransferase (ALT) measurementOrdered By: Cristóbal Ford on 11-25-2024 ALT [Catalytic activity/Vol] 36 U/L High <35 [facility] Serum or plasma albumin paul urement (mass/volume)Ordered By: Cristóbal Ford on 11-25-2024 Albumin [Mass/Vol] 4.4 g/dL 3.5-5.0 [facility] Serum or plasma albumin/glob ulin mass ratioOrdered By: Cristóbal Ford on 11-25-2024 Albumin/Globulin [Mass ratio] 1.8 {ratio} 0.9-2.4 [facility] Serum or plasma alkaline ubaldo sphatase measurementOrdered By: Cristóbal Ford on 11-25-2024 ALP [Catalytic activity/Vol] 66 U/L 35-104 [facility] Serum or plasma calcium paul urement (mass/volume)Ordered By: Cristóbal Liliana on 11-25-2024 Calcium [Mass/Vol] 10.1 mg/dL 7.6-11.0 [facility] Serum or plasma urea nitroge n measurement (mass/volume)Ordered By: Cristóbal Ford on 11-25-2024 Urea nitrogen [Mass/Vol] 16 mg/dL 4-19 [facility] Sodium levelOrdered By: Hudson Ford on 11-25-2024 Sodium [Moles/Vol] 141 mmol/L 133-145 [facility] Total proteinOrdered By: Jose G Ford on 11-25-2024 Protein [Mass/Vol] 6.8 g/dL 5.9-8.4 [facility] White blood cell (WBC) count Ordered By: Cristóbal Ford on 11-25-2024 WBC (Bld) [#/Vol] 8.7 10*3/uL 4.4-11.0 [facility] CA 15-3on 11-05-2024 CA 15-3 53.9 U/mL Abnormal 0.0-25.0 [facility] Comment on above: Result Comment: [facility] Electrochemiluminescence Immunoassay(ECLIA)Values obtained with different assay methods or kits cannotbe used interchangeably. Results cannot be interpreted asabsolute evidence of the presence or absence of malignantdisease.Performed at: [place] [id number] Director: Ervin Hitchcock PhD, Phone: [phone] Performed By: #### L 100.0100, L3100.1390, L3100.5030, L500.8290 ####[facility] [address] [place], [place], [id number] CA 27.29on 11-05-2024 CA 27.29 78.7 U/mL Abnormal 0.0-38.6 [facility] Comment on above: Result Comment: [employer] Immunochemiluminometric Methodology (ICMA)Values obtained with different assay methods or kits cannotbe used interchangeably. Results cannot be interpreted asabsolute evidence of the presence or absence of malignantdisease. Performed By: #### L 100.0100, L3100.5040, L3100.5030, L500.4050 ####[facility] [address] [place], [address] Absolute lymphocyte countOrd ered By: Genna Aleksander on 11-04-2024 Lymphocytes Auto (Unsp spec) [#/Vol] 2.66 10*3/uL 0.83-4.51 [facility] Absolute neutrophil countOrd ered By: Genna Aleksander on 11-04-2024 Neutrophils (Bld) [#/Vol] 6.5 10*3/uL 2.0-7.7 [facility] Anion gap in Serum or Plasma Ordered By: Genna Aleksander on 11-04-2024 Anion gap [Moles/Vol] 11 mmol/L 5-[address] [facility] Automated lymphocyte count a s percentage of total leukocytesOrdered By: Genna Aleksander on 11-04-2024 Lymphocytes/100 WBC Auto (Unsp spec) 26.9 % 19-41 [facility] BUN/creatinine ratioOrdered By: Genna StricklandAleksander on 11-04-2024 Urea nitrogen/Creatinine [Mass ratio] 26.8 mg/mg High 10-20 [facility] Basophil percentageOrdered B y: Genna Aleksander on 11-04-2024 Basophils/100 WBC (Bld) 0.4 % 0-1 [facility] Bilirubin, totalOrdered By: Gennanino StricklandAleksander on 11-04-2024 Bilirubin [Mass/Vol] 0.25 mg/dL 0.00-1.30 [facility] CA 15-3Ordered By: Genna Stricklandl abach on 11-04-2024 CA 15-3 53.9 U/mL High 0.0-25.0 [facility] Comment on above: [facility] El ectrochemiluminescence Immunoassay(ECLIA)Values obtained with different assay methods or kits cannotbe used interchangeably. Results cannot be interpreted asabsolute evidence of the presence or absence of malignantdisease.Performed at: [facility] [id number] Director: Ervin Hitchcock PhD, Phone: [phone] [place] Ordered By: Genna fuentes on 11-04-2024 CA 27.29 78.7 U/mL High 0.0-38.6 [facility] Comment on above: [employer] Immu nochemiluminometric Methodology (ICMA)Values obtained with different assay methods or kits cannotbe used interchangeably. Results cannot be interpreted asabsolute evidence of the presence or absence of malignantdisease. CBC W/Diff, Automatedon 10-08 Absolute Lymph 2.66 X10 3/uL Normal 0.83-4.51 [facility] Comment on above: Performed By: #### L 100.0100, L3100.5040, L3100.5030, L500.4050 ####[facility] [address] [place], [address] Absolute Neut 6.5 X10 3/uL Normal 2.0-7.7 [facility] Comment on above: Performed By: #### L 100.0100, L3100.5040, L3100.5030, L500.4050 ####[facility] [address] [place], [address] Basophils/100 WBC (Bld) 0.4 % Normal 0-1 [facility] Comment on above: Performed By: #### L 100.0100, L3100.5040, L3100.5030, L500.4050 ####[facility] [address] [place], [address] Eosinophils/100 WBC (Bld) 0.8 % Normal 0-5 [facility] Comment on above: Performed By: #### L 100.0100, L3100.5040, L3100.5030, L500.4050 ####[facility] [address] [place], [address] Erythrocyte distribution width (RBC) [Ratio] 13.9 % Normal 11.6-14.6 [facility] Comment on above: Performed By: #### L 100.0100, L3100.5040, L3100.5030, L500.4050 ####[facility] [address] [place], [address] Hematocrit (Bld) [Volume fraction] 38.9 % Normal 37-47 [facility] Comment on above: Performed By: #### L 100.0100, L3100.5040, L3100.5030, L500.4050 ####[facility] [address] [place], [address] Hemoglobin (Bld) [Mass/Vol] 12.6 g/dL Normal 12.0-15.0 [facility] Comment on above: Performed By: #### L 100.0100, L3100.5040, L3100.5030, L500.4050 ####[facility] [address] [place], [address] IG% 0.500 Normal 0.0-0.9 [facility] Comment on above: Result Comment: IG% - Immature Granulocytes (promyelocytes, myelocytes andmetamyelocytes) > 1% indicates that a LEFT SHIFT is Present. Performed By: #### L 100.0100, L3100.5040, L3100.5030, L500.4050 ####[facility] [address] [place], [address] Lymphocytes/100 WBC (Bld) 26.9 % Normal 19-41 [facility] Comment on above: Performed By: #### L 100.0100, L3100.5040, L3100.5030, L500.4050 ####[facility] [address] [place], [address] MCH (RBC) [Entitic mass] 29.9 pg Normal 27.0-32.0 [facility] Comment on above: Performed By: #### L 100.0100, L3100.5040, L3100.5030, L500.4050 ####[facility] [address] [place], [address] MCHC (RBC) [Mass/Vol] 32.4 g/dL Normal 32-[address] [facility] Comment on above: Performed By: #### L 100.0100, L3100.5040, L3100.5030, L500.4050 ####[facility] [address] [place], [address] MCV (RBC) [Entitic vol] 92.4 fL Normal 81-99 [facility] Comment on above: Performed By: #### L 100.0100, L3100.5040, L3100.5030, L500.4050 ####[facility] [address] [place], [address] Monocytes/100 WBC (Bld) 5.6 % Normal 0-10 [facility] Comment on above: Performed By: #### L 100.0100, L3100.5040, L3100.5030, L500.4050 ####[facility] [address] [place], [address] Neutrophils/100 WBC (Bld) 65.8 % Normal 47-70 [facility] Comment on above: Performed By: #### L 100.0100, L3100.5040, L3100.5030, L500.4050 ####[facility] [address] [place], [address] Nucleated RBC (Bld) [#/Vol] 0 10*3/uL Normal 0-5 [facility] Comment on above: Performed By: #### L 100.0100, L3100.5040, L3100.5030, L500.4050 ####[facility] [address] [place], [address] Platelet mean volume (Bld) [Entitic vol] 10.0 fL Normal 6.2-12.0 [facility] Comment on above: Performed By: #### L 100.0100, L3100.5040, L3100.5030, L500.4050 ####[facility] [address] [place], [address] Platelets (Bld) [#/Vol] 195 10*3/uL Normal 150-450 [facility] Comment on above: Performed By: #### L 100.0100, L3100.5040, L3100.5030, L500.4050 ####[facility] [address] [place], [address] RBC (Bld) [#/Vol] 4.21 10*6/uL Normal 4.2-5.[address] [facility] Comment on above: Performed By: #### L 100.0100, L3100.5040, L3100.5030, L500.4050 ####[facility] [address] [place], [address] RDW SD 47.5 fl High 35.1-43.9 [facility] Comment on above: Performed By: #### L 100.0100, L3100.5040, L3100.5030, L500.4050 ####[facility] [address] [place], [address] WBC (Bld) [#/Vol] 9.9 10*3/uL Normal 4.4-11.0 [facility] Comment on above: Performed By: #### L 100.0100, L3100.5040, L3100.5030, L500.4050 ####[facility] [address] [place], [address] Carbon dioxide, total [Moles /volume] in Central venous bloodOrdered By: Genna Zuniga on 11-04-2024 CO2 [Moles/Vol] 25.0 mmol/L 21.0-32.0 [facility] Chloride assayOrdered By: Ty ra Zuniga on 11-04-2024 Chloride [Moles/Vol] 104 mmol/L 98-108 [facility] Comprehensive Metabolic Prof ilon 11-04-2024 Albumin [Mass/Vol] 4.1 g/dL Normal 3.5-5.0 [facility] Comment on above: Performed By: #### L 100.0100, L3100.5040, L3100.5030, L500.4050 ####[facility] [address] [place], [address] Albumin/Globulin [Mass ratio] 1.6 {ratio} Normal 0.9-2.4 [facility] Comment on above: Performed By: #### L 100.0100, L3100.5040, L3100.5030, L500.4050 ####[facility] [address] [place], [address] ALK PHOS 67 U/L Normal 35-104 [facility] Comment on above: Performed By: #### L 100.0100, L3100.5040, L3100.5030, L500.4050 ####[facility] [address] [place], [address] ALT [Catalytic activity/Vol] 35 U/L Normal <=34 [facility] Comment on above: Performed By: #### L 100.0100, L3100.5040, L3100.5030, L500.4050 ####[facility] [address] [place], [address] AST [Catalytic activity/Vol] 36 U/L High <=31 [facility] Comment on above: Performed By: #### L 100.0100, L3100.5040, L3100.5030, L500.4050 ####[facility] [address] [place], [address] Bilirubin [Mass/Vol] 0.25 mg/dL Normal 0.00-1.30 [facility] Comment on above: Performed By: #### L 100.0100, L3100.5040, L3100.5030, L500.4050 ####[facility] [address] [place], [address] BUN/CRE 26.8 RATIO High 10-20 [facility] Comment on above: Performed By: #### L 100.0100, L3100.5040, L3100.5030, L500.4050 ####[facility] [address] [place], [address] Calcium [Mass/Vol] 10.0 mg/dL Normal 7.6-11.0 [facility] Comment on above: Performed By: #### L 100.0100, L3100.5040, L3100.5030, L500.4050 ####[facility] [address] [place], [address] Chloride [Moles/Vol] 104 mmol/L Normal 98-108 [facility] Comment on above: Performed By: #### L 100.0100, L3100.5040, L3100.5030, L500.4050 ####[facility] [address] [place], [address] CO2 [Moles/Vol] 25.0 mmol/L Normal 21.0-32.0 [facility] Comment on above: Performed By: #### L 100.0100, L3100.5040, L3100.5030, L500.4050 ####[facility] [address] [place], [address] Creatinine [Mass/Vol] 0.64 mg/dL Low 0.70-1.[address] [facility] Comment on above: Performed By: #### L 100.0100, L3100.5040, L3100.5030, L500.4050 ####[facility] [address] [place], [address] ECRCL 123.71 ml/min Normal 50-250 [facility] Comment on above: Performed By: #### L 100.0100, L3100.5040, L3100.5030, L500.4050 ####[facility] [address] [place], [address] GAP 11 Normal 5-15 [facility] Comment on above: Performed By: #### L 100.0100, L3100.5040, L3100.5030, L500.4050 ####[facility] [address] [place], [address] GFR/1.73 sq M.predicted among non-blacks MDRD (S/P/Bld) [Vol rate/Area] 104 mL/min/{1.73_m2} Normal >60 [facility] Comment on above: Result Comment: mL/m in/1.73m2 CKD-EPI Creatinine Equation (2020) Performed By: #### L 100.0100, L3100.5040, L3100.5030, L500.4050 ####[facility] [address] [place], [address] Globulin (S) [Mass/Vol] 2.6 g/dL Normal 2.2-4.2 [facility] Comment on above: Performed By: #### L 100.0100, L3100.5040, L3100.5030, L500.4050 ####[facility] [address] [place], [address] Glucose [Mass/Vol] 95 mg/dL Normal 70-99 [facility] Comment on above: Performed By: #### L 100.0100, L3100.5040, L3100.5030, L500.4050 ####[facility] [address] [place], [address] Potassium [Moles/Vol] 3.9 mmol/L Normal 3.3-5.[address] [facility] Comment on above: Performed By: #### L 100.0100, L3100.5040, L3100.5030, L500.4050 ####[facility] [address] [place], [address] Sodium [Moles/Vol] 140 mmol/L Normal 133-145 [facility] Comment on above: Performed By: #### L 100.0100, L3100.5040, L3100.5030, L500.4050 ####[facility] [address] [place], [address] T PROT 6.7 g/dL Normal 5.9-8.4 [facility] Comment on above: Performed By: #### L 100.0100, L3100.5040, L3100.5030, L500.4050 ####[facility] [address] [place], [address] Urea nitrogen [Mass/Vol] 17 mg/dL Normal 4-19 [facility] Comment on above: Performed By: #### L 100.0100, L3100.5040, L3100.5030, L500.4050 ####[facility] [address] [place], [address] Eosinophil percentageOrdered By: Genna Zuniga on 11-04-2024 Eosinophils/100 WBC (Bld) 0.8 % 0-5 [facility] Erythrocyte distribution wid th ratioOrdered By: Genna Zuniga on 11-04-2024 Erythrocyte distribution width (RBC) [Ratio] 13.9 % 11.6-14.6 [facility] Erythrocyte distribution wid th standard deviationOrdered By: Genna Zuniga on 11-04-2024 Erythrocyte distribution width (RBC) [Ratio] 47.5 fl High 35.1-43.9 [facility] Glomerular filtration rate ( GFR) estimation/1.73 sq m using serum, plasma, or whole bOrdered By: Genna Zuniga on 11-04-2024 GFR/1.73 sq M.predicted among non-blacks MDRD (S/P/Bld) [Vol rate/Area] 104 mL/min/{1.73_m2} >60 [facility] Comment on above: mL/min/1.73m2 CKD-EP I Creatinine Equation (2020) Hematocrit Auto (Bld) [Volum e fraction]Ordered By: Genna Zuniga on 11-04-2024 Hematocrit (Bld) [Volume fraction] 38.9 % 37-47 [facility] Hemoglobin measurementOrdere d By: Genna Zuniga on 11-04-2024 Hemoglobin (Bld) [Mass/Vol] 12.6 g/dL 12.0-15.0 [facility] Immature granulocytes/100 WB C Auto (Bld)Ordered By: Genna Zuniga on 11-04-2024 Immature granulocytes/100 WBC (Bld) 0.500 % 0.0-0.9 [facility] Comment on above: IG% - Immature Granu locytes (promyelocytes, myelocytes and metamyelocytes) > 1% indicates that a LEFT SHIFT is Present. Laboratory - Chemistry and C hemistry - challengeOrdered By: Genna Zuniga on 11-04-2024 AST [Catalytic activity/Vol] 36 U/L High <32 [facility] MCV (mean corpuscular volume ) determinationOrdered By: Genna Zuniga on 11-04-2024 MCV (RBC) [Entitic vol] 92.4 fL 81-99 [facility] Mean corpuscular hemoglobin (MCH) determinationOrdered By: Genna Zuniga on 11-04-2024 MCH (RBC) [Entitic mass] 29.9 pg 27.0-32.0 [facility] Mean corpuscular hemoglobin concentration (MCHC) determinationOrdered By: Genna Zuniga on 11-04-2024 MCHC (RBC) [Mass/Vol] 32.4 g/dL 32-[address] [facility] Mean platelet volume determi nationOrdered By: Genna Zuniga on 11-04-2024 Platelet mean volume (Bld) [Entitic vol] 10.0 fL 6.2-12.0 [facility] Monocyte percentageOrdered B y: Genna Zuniga on 11-04-2024 Monocytes/100 WBC (Bld) 5.6 % 0-10 [facility] Neutrophil percentageOrdered By: Genna Zuniga on 11-04-2024 Neutrophils/100 WBC (Bld) 65.8 % 47-70 [facility] Nucleated red blood cell per centageOrdered By: Genna Zuniga on 11-04-2024 Nucleated RBC/100 WBC (Bld) [Ratio] 0 % 0-5 [facility] Oncology Visit Reporton 10-08 Oncology Visit Report Normal [facility] Platelet countOrdered By: Erwin Zuniga on 11-04-2024 Platelets (Bld) [#/Vol] 195 10*3/uL 150-450 [facility] Potassium measurement (mass/ volume)Ordered By: Genna Zuniga on 11-04-2024 Potassium (Unsp spec) [Mass/Vol] 3.9 mmol/L 3.3-5.1 [facility] RBC Auto (Bld) [#/Vol]Ordere d By: Genna Zuniga on 11-04-2024 RBC (Bld) [#/Vol] 4.21 10*6/uL 4.2-5.[address] [facility] Serum creatinine measurement (mass/volume)Ordered By: Genna Zuniga on 11-04-2024 Creatinine [Mass/Vol] 0.64 mg/dL Low 0.70-1.[address] [facility] Serum globulin measurementOr dered By: Genna Zuniga on 11-04-2024 Globulin (S) [Mass/Vol] 2.6 g/dL 2.2-4.2 [facility] Serum glucose measurement (m ass/volume)Ordered By: Genna Zuniga on 11-04-2024 Glucose [Mass/Vol] 95 mg/dL 70-99 [facility] Serum or plasma alanine alonzo otransferase (ALT) measurementOrdered By: Genna Zuniga on 11-04-2024 ALT [Catalytic activity/Vol] 35 U/L <35 [facility] Serum or plasma albumin paul urement (mass/volume)Ordered By: Genna Zuniga on 11-04-2024 Albumin [Mass/Vol] 4.1 g/dL 3.5-5.0 [facility] Serum or plasma albumin/glob ulin mass ratioOrdered By: Genna Zuniga on 11-04-2024 Albumin/Globulin [Mass ratio] 1.6 {ratio} 0.9-2.4 [facility] Serum or plasma alkaline ubaldo sphatase measurementOrdered By: Genna Zuniga on 11-04-2024 ALP [Catalytic activity/Vol] 67 U/L 35-104 [facility] Serum or plasma calcium paul urement (mass/volume)Ordered By: Genna Aleksander on 11-04-2024 Calcium [Mass/Vol] 10.0 mg/dL 7.6-11.0 [facility] Serum or plasma urea nitroge n measurement (mass/volume)Ordered By: [facility] Aleksander on 11-04-2024 Urea nitrogen [Mass/Vol] 17 mg/dL 4-19 [facility] Sodium levelOrdered By: [facility] 11-04-2024 Sodium [Moles/Vol] 140 mmol/L 133-145 [facility] Total proteinOrdered By: David Zuniga on 11-04-2024 Protein [Mass/Vol] 6.7 g/dL 5.9-8.4 [facility] White blood cell (WBC) count Ordered By: Genna Zuniga on 11-04-2024 WBC (Bld) [#/Vol] 9.9 10*3/uL 4.4-11.0 [facility] Urine Cultureon 10-28-2024 URC Normal [facility] Comment on above: Performed By: #### M 100.2200 ####[facility] [address] [place], [place], [id number] Laboratory - Chemistry and C hemistry - challengeOrdered By: Dain Vaughn on 10-26-2024 Bilirubin Ql (U) Negative [facility] Glucose Ql (U) Negative [facility] Ketones Ql (U) Negative [facility] pH (U) 7.0 [pH] [facility] Specific gravity (U) [Rel density] 1.015 [facility] Urobilinogen (U) [Mass/Vol] 1 mg/dL [facility] Laboratory - Hematology and Cell countsOrdered By: Dain Vaughn on 10-26-2024 Hemoglobin Ql (U) Moderate [facility] Laboratory - Specimen inform ationOrdered By: Dain Vaughn on 10-26-2024 Clarity (U) Clear [facility] Color (U) YELLOW [facility] Laboratory - UrinalysisOrder ed By: Dain Vaughn on 10-26-2024 Nitrite Ql (U) Negative [facility] Protein Ql (U) Trace [facility] No Panel InformationOrdered By: Dain Vaughn on 10-26-2024 Urine Leukocytes Positive [facility] Comment on above: trace Urine Non-Hemolyzed Blood Non-Hemolyzed [facility] Urgent Care Visit Reporton 0 10-26-2024 Urgent Care Visit Report Normal [facility] Urine cultureOrdered By: Estrada Vaughn on 10-26-2024 Bacteria identified Cx Nom (U) Presumptive E. coli Abnormal [facility] NATERAon 10-14-2024 NATURA SEE SCANNED REPORT Normal [facility] Comment on above: Performed By: #### L 900.0098 ####[facility] [address] [place], [address] Oncology Visit Reporton 05 Oncology Visit Report Normal [facility] CA 15-3on 09-24-2024 CA 15-3 49.0 U/mL Abnormal 0.0-25.0 [facility] Comment on above: Result Comment: [employer] Electrochemiluminescence Immunoassay(ECLIA)Values obtained with different assay methods or kits cannotbe used interchangeably. Results cannot be interpreted asabsolute evidence of the presence or absence of malignantdisease.Performed at: [address] [id number] Director: Ervin Hitchcock PhD, Phone: [phone] Performed By: #### L 100.0100, L3100.5030, L3100.2300, L3100.5040, L500.4050 ####[facility] [address] [place], [place], [id number] CA 27.29on 09-24-2024 CA 27.29 66.5 U/mL Abnormal 0.0-38.6 [facility] Comment on above: Result Comment: [employer] Immunochemiluminometric Methodology (ICMA)Values obtained with different assay methods or kits cannotbe used interchangeably. Results cannot be interpreted asabsolute evidence of the presence or absence of malignantdisease. Performed By: #### L 100.0100, L3100.5030, L3100.2300, L3100.5040, L500.4050 ####[facility] [address] [place], [address] Carcinoembryonic Antigenon 0 09-24-2024 CEA 0.9 ng/mL Normal 0.0-4.7 [facility] Comment on above: Result Comment: Nons mokers <3.9 Smokers <5.6[employer] Electrochemiluminescence Immunoassay(ECLIA)Values obtained with different assay methods or kitscannot be used interchangeably. Results cannot beinterpreted as absolute evidence of the presence orabsence of malignant disease. Performed By: #### L 100.0100, L3100.5030, L3100.2300, L3100.5040, L500.4050 ####[facility] [address] [place], [address] Absolute lymphocyte countOrd ered By: Genna Zuniga on 09-23-2024 Lymphocytes Auto (Unsp spec) [#/Vol] 2.23 10*3/uL 0.83-4.51 [facility] Absolute neutrophil countOrd ered By: Genna Zuniga on 09-23-2024 Neutrophils (Bld) [#/Vol] 4.7 10*3/uL 2.0-7.7 [facility] Anion gap in Serum or Plasma Ordered By: Genna Zuniga on 09-23-2024 Anion gap [Moles/Vol] 10 mmol/L 5-[address] [facility] Automated lymphocyte count a s percentage of total leukocytesOrdered By: Genna Zuniga on 09-23-2024 Lymphocytes/100 WBC Auto (Unsp spec) 29.7 % -41 [facility] BUN/creatinine ratioOrdered By: Genna Zuniga on 09-23-2024 Urea nitrogen/Creatinine [Mass ratio] 32.8 mg/mg High 10-20 [facility] Basophil percentageOrdered B y: Genna Zuniga on 09-23-2024 Basophils/100 WBC (Bld) 0.3 % 0-1 [facility] Bilirubin, totalOrdered By: Genna Zuniga on 09-23-2024 Bilirubin [Mass/Vol] 0.30 mg/dL 0.00-1.30 [facility] CA 15-3Ordered By: Genna Saxena abach on 09-23-2024 CA 15-3 49.0 U/mL High 0.0-25.0 [facility] Comment on above: [employer] El ectrochemiluminescence Immunoassay(ECLIA)Values obtained with different assay methods or kits cannotbe used interchangeably. Results cannot be interpreted asabsolute evidence of the presence or absence of malignantdisease.Performed at: [facility] [id number] Director: Ervin Hitchcock PhD, Phone: [phone] [place] .Ordered By: Genna fuentes on 09-23-2024 CA 27.29 66.5 U/mL High 0.0-38.6 [facility] Comment on above: [employer] Immu nochemiluminometric Methodology (ICMA)Values obtained with different assay methods or kits cannotbe used interchangeably. Results cannot be interpreted asabsolute evidence of the presence or absence of malignantdisease. CBC W/Diff, Automatedon 09-07 Absolute Lymph 2.23 X10 3/uL Normal 0.83-4.51 [facility] Comment on above: Performed By: #### L 100.0100, L3100.5030, L3100.2300, L3100.5040, L500.4050 ####[facility] [address] [place], [place], [id number] Absolute Neut 4.7 X10 3/uL Normal 2.0-7.7 [facility] Comment on above: Performed By: #### L 100.0100, L3100.5030, L3100.2300, L3100.5040, L500.4050 ####[facility] [address] [place], [address] Basophils/100 WBC (Bld) 0.3 % Normal 0-1 [facility] Comment on above: Performed By: #### L 100.0100, L3100.5030, L3100.2300, L3100.5040, L500.4050 ####[facility] [address] [place], [address] Eosinophils/100 WBC (Bld) 1.1 % Normal 0-5 [facility] Comment on above: Performed By: #### L 100.0100, L3100.5030, L3100.2300, L3100.5040, L500.4050 ####[facility] [address] [place], [address] Erythrocyte distribution width (RBC) [Ratio] 13.4 % Normal 11.6-14.6 [facility] Comment on above: Performed By: #### L 100.0100, L3100.5030, L3100.2300, L3100.5040, L500.4050 ####[facility] [address] [place], [address] Hematocrit (Bld) [Volume fraction] 37.2 % Normal 37-47 [facility] Comment on above: Performed By: #### L 100.0100, L3100.5030, L3100.2300, L3100.5040, L500.4050 ####[facility] [address] [place], [address] Hemoglobin (Bld) [Mass/Vol] 11.9 g/dL Low 12.0-15.0 [facility] Comment on above: Performed By: #### L 100.0100, L3100.5030, L3100.2300, L3100.5040, L500.4050 ####[facility] [address] [place], [address] IG% 0.300 Normal 0.0-0.9 [facility] Comment on above: Result Comment: IG% - Immature Granulocytes (promyelocytes, myelocytes andmetamyelocytes) > 1% indicates that a LEFT SHIFT is Present. Performed By: #### L 100.0100, L3100.5030, L3100.2300, L3100.5040, L500.4050 ####[facility] [address] [place], [address] Lymphocytes/100 WBC (Bld) 29.7 % Normal 19-41 [facility] Comment on above: Performed By: #### L 100.0100, L3100.5030, L3100.2300, L3100.5040, L500.4050 ####[facility] [address] [place], [address] MCH (RBC) [Entitic mass] 30.0 pg Normal 27.0-32.0 [facility] Comment on above: Performed By: #### L 100.0100, L3100.5030, L3100.2300, L3100.5040, L500.4050 ####[facility] [address] [place], [address] MCHC (RBC) [Mass/Vol] 32.0 g/dL Normal 32-[address] [facility] Comment on above: Performed By: #### L 100.0100, L3100.5030, L3100.2300, L3100.5040, L500.4050 ####[facility] [address] [place], [address] MCV (RBC) [Entitic vol] 93.7 fL Normal 81-99 [facility] Comment on above: Performed By: #### L 100.0100, L3100.5030, L3100.2300, L3100.5040, L500.4050 ####[facility] [address] [place], [address] Monocytes/100 WBC (Bld) 6.5 % Normal 0-10 [facility] Comment on above: Performed By: #### L 100.0100, L3100.5030, L3100.2300, L3100.5040, L500.4050 ####[facility] [address] [place], [address] Neutrophils/100 WBC (Bld) 62.1 % Normal 47-70 [facility] Comment on above: Performed By: #### L 100.0100, L3100.5030, L3100.2300, L3100.5040, L500.4050 ####[facility] [address] [place], [address] Nucleated RBC (Bld) [#/Vol] 0 10*3/uL Normal 0-5 [facility] Comment on above: Performed By: #### L 100.0100, L3100.5030, L3100.2300, L3100.5040, L500.4050 ####[facility] [address] [place], [address] Platelet mean volume (Bld) [Entitic vol] 9.3 fL Normal 6.2-12.0 [facility] Comment on above: Performed By: #### L 100.0100, L3100.5030, L3100.2300, L3100.5040, L500.4050 ####[facility] [address] [place], [address] Platelets (Bld) [#/Vol] 227 10*3/uL Normal 150-450 [facility] Comment on above: Performed By: #### L 100.0100, L3100.5030, L3100.2300, L3100.5040, L500.4050 ####[facility] [address] [place], [address] RBC (Bld) [#/Vol] 3.97 10*6/uL Low 4.2-5.[address] [facility] Comment on above: Performed By: #### L 100.0100, L3100.5030, L3100.2300, L3100.5040, L500.4050 ####[facility] [address] [place], [address] RDW SD 45.9 fl High 35.1-43.9 [facility] Comment on above: Performed By: #### L 100.0100, L3100.5030, L3100.2300, L3100.5040, L500.4050 ####[facility] [address] [place], [address] WBC (Bld) [#/Vol] 7.5 10*3/uL Normal 4.4-11.0 [facility] Comment on above: Performed By: #### L 100.0100, L3100.5030, L3100.2300, L3100.5040, L500.4050 ####[facility] [address] [place], [address] Carbon dioxide, total [Moles /volume] in Central venous bloodOrdered By: Genna Zuniga on 09-23-2024 CO2 [Moles/Vol] 25.9 mmol/L 21.0-32.0 [facility] Chloride assayOrdered By: Erwin Zuniga on 09-23-2024 Chloride [Moles/Vol] 105 mmol/L 98-108 [facility] Comprehensive Metabolic Prof ilon 09-23-2024 Albumin [Mass/Vol] 4.3 g/dL Normal 3.5-5.0 [facility] Comment on above: Performed By: #### L 100.0100, L3100.5030, L3100.2300, L3100.5040, L500.4050 ####[facility] [address] [place], [address] Albumin/Globulin [Mass ratio] 1.7 {ratio} Normal 0.9-2.4 [facility] Comment on above: Performed By: #### L 100.0100, L3100.5030, L3100.2300, L3100.5040, L500.4050 ####[facility] [address] [place], [address] ALK PHOS 93 U/L Normal 35-104 [facility] Comment on above: Performed By: #### L 100.0100, L3100.5030, L3100.2300, L3100.5040, L500.4050 ####[facility] [address] [place], [address] ALT [Catalytic activity/Vol] 17 U/L Normal <=34 [facility] Comment on above: Performed By: #### L 100.0100, L3100.5030, L3100.2300, L3100.5040, L500.4050 ####[facility] [address] [place], [address] AST [Catalytic activity/Vol] 24 U/L Normal <=31 [facility] Comment on above: Performed By: #### L 100.0100, L3100.5030, L3100.2300, L3100.5040, L500.4050 ####[facility] [address] [place], [address] Bilirubin [Mass/Vol] 0.30 mg/dL Normal 0.00-1.30 [facility] Comment on above: Performed By: #### L 100.0100, L3100.5030, L3100.2300, L3100.5040, L500.4050 ####[facility] [address] [place], [address] BUN/CRE 32.8 RATIO High 10-20 [facility] Comment on above: Performed By: #### L 100.0100, L3100.5030, L3100.2300, L3100.5040, L500.4050 ####[facility] [address] [place], [address] Calcium [Mass/Vol] 10.7 mg/dL Normal 7.6-11.0 [facility] Comment on above: Performed By: #### L 100.0100, L3100.5030, L3100.2300, L3100.5040, L500.4050 ####[facility] [address] [place], [address] Chloride [Moles/Vol] 105 mmol/L Normal 98-108 [facility] Comment on above: Performed By: #### L 100.0100, L3100.5030, L3100.2300, L3100.5040, L500.4050 ####[facility] [address] [place], [address] CO2 [Moles/Vol] 25.9 mmol/L Normal 21.0-32.0 [facility] Comment on above: Performed By: #### L 100.0100, L3100.5030, L3100.2300, L3100.5040, L500.4050 ####[facility] [address] [place], [address] Creatinine [Mass/Vol] 0.76 mg/dL Normal 0.70-1.[address] [facility] Comment on above: Performed By: #### L 100.0100, L3100.5030, L3100.2300, L3100.5040, L500.4050 ####[facility] [address] [place], [address] ECRCL 104.87 ml/min Normal 50-250 [facility] Comment on above: Performed By: #### L 100.0100, L3100.5030, L3100.2300, L3100.5040, L500.4050 ####[facility] [address] [place], [address] GAP 10 Normal 5-15 [facility] Comment on above: Performed By: #### L 100.0100, L3100.5030, L3100.2300, L3100.5040, L500.4050 ####[facility] [address] [place], [address] GFR/1.73 sq M.predicted among non-blacks MDRD (S/P/Bld) [Vol rate/Area] 93 mL/min/{1.73_m2} Normal >60 [facility] Comment on above: Result Comment: mL/m in/1.73m2 CKD-EPI Creatinine Equation (2020) Performed By: #### L 100.0100, L3100.5030, L3100.2300, L3100.5040, L500.4050 ####[facility] [address] [place], [address] Globulin (S) [Mass/Vol] 2.5 g/dL Normal 2.2-4.2 [facility] Comment on above: Performed By: #### L 100.0100, L3100.5030, L3100.2300, L3100.5040, L500.4050 ####[facility] [address] [place], [address] Glucose [Mass/Vol] 107 mg/dL High 70-99 [facility] Comment on above: Performed By: #### L 100.0100, L3100.5030, L3100.2300, L3100.5040, L500.4050 ####[facility] [address] [place], [address] Potassium [Moles/Vol] 4.3 mmol/L Normal 3.3-5.[address] [facility] Comment on above: Performed By: #### L 100.0100, L3100.5030, L3100.2300, L3100.5040, L500.4050 ####[facility] [address] [place], [address] Sodium [Moles/Vol] 141 mmol/L Normal 133-145 [facility] Comment on above: Performed By: #### L 100.0100, L3100.5030, L3100.2300, L3100.5040, L500.4050 ####[facility] [address] [place], [place], [address] T PROT 6.7 g/dL Normal 5.9-8.4 [facility] Comment on above: Performed By: #### L 100.0100, L3100.5030, L3100.2300, L3100.5040, L500.4050 ####[facility] [address] [place], [address] Urea nitrogen [Mass/Vol] 25 mg/dL High 4-19 [facility] Comment on above: Performed By: #### L 100.0100, L3100.5030, L3100.2300, L3100.5040, L500.4050 ####[facility] [address] [place], [place], [address] Eosinophil percentageOrdered By: Genna Zuniga on 09-23-2024 Eosinophils/100 WBC (Bld) 1.1 % 0-5 [facility] Erythrocyte distribution wid th ratioOrdered By: Genna Zuniga on 09-23-2024 Erythrocyte distribution width (RBC) [Ratio] 13.4 % 11.6-14.6 [facility] Erythrocyte distribution wid th standard deviationOrdered By: Genna Zuniga on 09-23-2024 Erythrocyte distribution width (RBC) [Ratio] 45.9 fl High 35.1-43.9 [facility] Glomerular filtration rate ( GFR) estimation/1.73 sq m using serum, plasma, or whole bOrdered By: Genna Zuniga on 09-23-2024 GFR/1.73 sq M.predicted among non-blacks MDRD (S/P/Bld) [Vol rate/Area] 93 mL/min/{1.73_m2} >60 [facility] Comment on above: mL/min/1.73m2 CKD-EP I Creatinine Equation (2020) Hematocrit Auto (Bld) [Volum e fraction]Ordered By: Genna Zuniga on 09-23-2024 Hematocrit (Bld) [Volume fraction] 37.2 % 37-47 [facility] Hemoglobin measurementOrdere d By: Genna Zuniga on 09-23-2024 Hemoglobin (Bld) [Mass/Vol] 11.9 g/dL Low 12.0-15.0 [facility] Immature granulocytes/100 WB C Auto (Bld)Ordered By: Genna Zuniga on 09-23-2024 Immature granulocytes/100 WBC (Bld) 0.300 % 0.0-0.9 [facility] Comment on above: IG% - Immature Granu locytes (promyelocytes, myelocytes and metamyelocytes) > 1% indicates that a LEFT SHIFT is Present. Laboratory - Chemistry and C hemistry - challengeOrdered By: Genna Zuniga on 09-23-2024 AST [Catalytic activity/Vol] 24 U/L <32 [facility] MCV (mean corpuscular volume ) determinationOrdered By: Genna Zuniga on 09-23-2024 MCV (RBC) [Entitic vol] 93.7 fL 81-99 [facility] Mean corpuscular hemoglobin (MCH) determinationOrdered By: Genna Zuniga on 09-23-2024 MCH (RBC) [Entitic mass] 30.0 pg 27.0-32.0 [facility] Mean corpuscular hemoglobin concentration (MCHC) determinationOrdered By: Genna Zuniga on 09-23-2024 MCHC (RBC) [Mass/Vol] 32.0 g/dL 32-[address] [facility] Mean platelet volume determi nationOrdered By: Genna Zuniga on 09-23-2024 Platelet mean volume (Bld) [Entitic vol] 9.3 fL 6.2-12.0 [facility] Monocyte percentageOrdered B y: Genna Zuniga on 09-23-2024 Monocytes/100 WBC (Bld) 6.5 % 0-10 [facility] Neutrophil percentageOrdered By: Genna Zuniga on 09-23-2024 Neutrophils/100 WBC (Bld) 62.1 % 47-70 [facility] Nucleated red blood cell per centageOrdered By: Genna Zuniga on 09-23-2024 Nucleated RBC/100 WBC (Bld) [Ratio] 0 % 0-5 [facility] Oncology Visit Reporton 09-07 Oncology Visit Report Normal [facility] Platelet countOrdered By: Erwin Zuniga on 09-23-2024 Platelets (Bld) [#/Vol] 227 10*3/uL 150-450 [facility] Potassium measurement (mass/ volume)Ordered By: Genna Zuniga on 09-23-2024 Potassium (Unsp spec) [Mass/Vol] 4.3 mmol/L 3.3-5.1 [facility] RBC Auto (Bld) [#/Vol]Ordere d By: Genna Zuniga on 09-23-2024 RBC (Bld) [#/Vol] 3.97 10*6/uL Low 4.2-5.[address] [facility] Serum creatinine measurement (mass/volume)Ordered By: Genna Zuniga on 09-23-2024 Creatinine [Mass/Vol] 0.76 mg/dL 0.70-1.[address] [facility] Serum globulin measurementOr dered By: Genna Zuniga on 09-23-2024 Globulin (S) [Mass/Vol] 2.5 g/dL 2.2-4.2 [facility] Serum glucose measurement (m ass/volume)Ordered By: Genna Zuniga on 09-23-2024 Glucose [Mass/Vol] 107 mg/dL High 70-99 [facility] Serum or plasma alanine alonzo otransferase (ALT) measurementOrdered By: Genna Zuniga on 09-23-2024 ALT [Catalytic activity/Vol] 17 U/L <35 [facility] Serum or plasma albumin paul urement (mass/volume)Ordered By: Genna Zuniga on 09-23-2024 Albumin [Mass/Vol] 4.3 g/dL 3.5-5.0 [facility] Serum or plasma albumin/glob ulin mass ratioOrdered By: Genna Zuniga on 09-23-2024 Albumin/Globulin [Mass ratio] 1.7 {ratio} 0.9-2.4 [facility] Serum or plasma alkaline ubaldo sphatase measurementOrdered By: Genna Zuniga on 09-23-2024 ALP [Catalytic activity/Vol] 93 U/L 35-104 [facility] Serum or plasma calcium paul urement (mass/volume)Ordered By: Genna Zuniga on 09-23-2024 Calcium [Mass/Vol] 10.7 mg/dL 7.6-11.0 [facility] Serum or plasma carcinoembry onic antigen measurement (mass/volume)Ordered By: Genna Zuniga on 09-23-2024 Carcinoembryonic Ag [Mass/Vol] 0.9 ng/mL 0.0-4.7 [facility] Comment on above: Nonsmokers <3.9 Smok ers <5.6[employer] Electrochemiluminescence Immunoassay(ECLIA)Values obtained with different assay methods or kitscannot be used interchangeably. Results cannot beinterpreted as absolute evidence of the presence orabsence of malignant disease. Serum or plasma urea nitroge n measurement (mass/volume)Ordered By: Genna Zuniga on 09-23-2024 Urea nitrogen [Mass/Vol] 25 mg/dL High 4-19 [facility] Sodium levelOrdered By: Genna Zuniga on 09-23-2024 Sodium [Moles/Vol] 141 mmol/L 133-145 [facility] Total proteinOrdered By: David Zuniga on 09-23-2024 Protein [Mass/Vol] 6.7 g/dL 5.9-8.4 [facility] White blood cell (WBC) count Ordered By: Genna Zuniga on 09-23-2024 WBC (Bld) [#/Vol] 7.5 10*3/uL 4.4-11.0 [facility] Venous Duplex US, Unilateral on 09-17-2024 Venous Duplex US, Unilateral Normal [facility] Venous duplex ultrasound rep ortOrdered By: Wyatt Patel on 09-17-2024 US Vein [facility] [address] [place] [address] Venous Duplex US, Unilateral 09/17/24 1457 MR#: [id number] Acct: [id number] Name: LISSETT RUSSELL Rep #:[id number] : [...] Alicia Performed By: Yazmin Anne RVT 09/17/24 8231 Date _ Wyatt Patel MD CC: Dr. Dain Serrano MD; LARA Gomez ~ Date Dictated: 09/17/24 1457 Date Transcribed: 09/17/24 712 Product Representative: Signed [facility] Other Phone: Oncology Visit Reporton 08-08 Oncology Visit Report Normal [facility] Echocardiogram study reportO rdered By: Jesus Varma on 08-31-2024 Study report [facility] [address] 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 Procedure This was a 2D [...] 1533 Date _ Jesus Varma MD CC: POWER ELECTRON[employer] RESEARCH ENGINEER-Amairani Zuniga; LARA Gomez ~ Date Dictated: 08/31/24 1110 Date Transcribed: 08/31/241532 Product Representative: Signed [facility] Work Phone: ONC Echo Completeon 09-01-19 ONC Echo Complete Normal [facility] Bilirubin directOrdered By: Carly Carrasquillo on 08-17-2024 Bilirubin.direct [Mass/Vol] 0.14 mg/dL 0.00-0.30 [facility] Bilirubin, totalOrdered By: Carly Carrasquillo on 08-17-2024 Bilirubin [Mass/Vol] 0.29 mg/dL 0.00-1.30 [facility] Calculated very low density lipoprotein (VLDL) cholesterol measurementOrdered By: Carly Carrasquillo on 08-17-2024 Calculated very low density lipoprotein (VLDL) cholesterol measurement 45 mg/dL High 5-40 [facility] VLDL Cholesterol 45 mg/dL High - [facility] LDL calc ser/plasOrdered By: Carly Carrasquillo on 08-17-2024 Cholesterol in LDL [Mass/Vol] 60 mg/dL [facility] Comment on above: Awoitqkclz=446-027 m g/dL & Higher Rjoe=092 mg/dL or greater LDL Cholesterol, Calculated 60 mg/dL [facility] Comment on above: Mntlodryex=553-056 m g/dL & Higher Jlxu=502 mg/dL or greater Laboratory - Chemistry and C hemistry - challengeOrdered By: Carly Carrasquillo on 08-17-2024 AST [Catalytic activity/Vol] 34 U/L High <32 [facility] Lipid Profileon 08-17-2024 CHOL:HDL 2.92 Normal [facility] Comment on above: Performed By: #### L 500.3400, L500.4100 ####[facility] [address] [place], [place], [phone] Cholesterol [Mass/Vol] 159 mg/dL Normal <=200 [facility] Comment on above: Result Comment: Chol esterol level, Desirable <200 mg/dLBorderline high cholesterol 200-239 mg/dLHigh cholesterol >=240 mg/dLRecommendations of the NCEP Adult Treatment Panel for thefollowing risk-cutoff thresholds for the [place] Americanpulation. Performed By: #### L 500.3400, L500.4100 ####[facility] [address] [place], [place], [phone] Cholesterol in HDL [Mass/Vol] 55 mg/dL Normal [facility] Comment on above: Result Comment: Lisa onal Cholesterol Education Program (NCEP) guidelines:<40 mg/dL: Low HDL-cholesterol (major risk factor for CHD)>= 60 mg/dL: High HDL-cholesterol (negative risk factor forCHD)HDL-cholesterol is affected by a number of factors, e.g.smoking, exercise, hormones, sex and age. Performed By: #### L 500.3400, L500.4100 ####[facility] [address] [place], [place], [phone] Cholesterol in LDL [Mass/Vol] 60 mg/dL Normal [facility] Comment on above: Result Comment: Bord athgqd=352-694 mg/dL Higher Jjjy=015 mg/dL or greater Performed By: #### L 500.3400, L500.4100 ####[facility] [address] [place], [address] Cholesterol in VLDL [Mass/Vol] 45 mg/dL High 5-40 [facility] Comment on above: Performed By: #### L 500.3400, L500.4100 ####[facility] [address] [place], [address] Triglyceride [Mass/Vol] 224 mg/dL High [facility] Comment on above: Result Comment: The drugs N-Acetylcysteine and Metamizole may falselydepress this assay.Normal range: <150 mg/dLBorderline High: 150-199 mg/dLHigh: 200-499 mg/dLVery High: >500 mg/dL Performed By: #### L 500.3400, L500.4100 ####[facility] [address] [place], [address] Liver Profileon 08-17-2024 Albumin [Mass/Vol] 4.4 g/dL Normal 3.5-5.0 [facility] Comment on above: Performed By: #### L 500.3400, L500.4100 ####[facility] [address] [place], [address] ALK PHOS 68 U/L Normal 35-104 [facility] Comment on above: Performed By: #### L 500.3400, L500.4100 ####[facility] [address] [place], [address] ALT [Catalytic activity/Vol] 30 U/L Normal <=34 [facility] Comment on above: Performed By: #### L 500.3400, L500.4100 ####[facility] [address] [place], [address] AST [Catalytic activity/Vol] 34 U/L High <=31 [facility] Comment on above: Performed By: #### L 500.3400, L500.4100 ####[facility] [address] [place], [address] Bilirubin [Mass/Vol] 0.29 mg/dL Normal 0.00-1.30 [facility] Comment on above: Performed By: #### L 500.3400, L500.4100 ####[facility] [address] [place], [address] Bilirubin.direct [Mass/Vol] 0.14 mg/dL Normal 0.00-0.30 [facility] Comment on above: Performed By: #### L 500.3400, L500.4100 ####[facility] [address] [place], [address] Globulin (S) [Mass/Vol] 2.6 g/dL Normal 2.2-4.2 [facility] Comment on above: Performed By: #### L 500.3400, L500.4100 ####[facility] [address] [place], [address] T PROT 7.0 g/dL Normal 5.9-8.4 [facility] Comment on above: Performed By: #### L 500.3400, L500.4100 ####[facility] [address] [place], [address] Screening total cholesterol/ high density lipoprotein (HDL) cholesterol ratioOrdered By: Carly Carrasquillo on 08-17-2024 Cholesterol.total/Chol esterol in HDL [Mass ratio] 2.92 {ratio} [facility] Serum globulin measurementOr dered By: Carly Carrasquillo on 08-17-2024 Globulin (S) [Mass/Vol] 2.6 g/dL 2.2-4.2 [facility] Serum or plasma alanine alonzo otransferase (ALT) measurementOrdered By: Carly Carrasquillo on 08-17-2024 ALT [Catalytic activity/Vol] 30 U/L <35 [facility] Serum or plasma albumin paul urement (mass/volume)Ordered By: Carly Carrasquillo on 08-17-2024 Albumin [Mass/Vol] 4.4 g/dL 3.5-5.0 [facility] Serum or plasma alkaline ubaldo sphatase measurementOrdered By: Carly Carrasquillo on 08-17-2024 ALP [Catalytic activity/Vol] 68 U/L 35-104 [facility] Serum or plasma cholesterol in HDL measurement (mass/volume)Ordered By: Carly Carrasquillo on 08-17-2024 Cholesterol in HDL [Mass/Vol] 55 mg/dL >40 [facility] Comment on above: National Cholesterol Education Program (NCEP) guidelines:<40 mg/dL: Low HDL-cholesterol (major risk factor for CHD)>= 60 mg/dL: High HDL-cholesterol (negative risk factor for CHD)HDL-cholesterol is affected by a number of factors, e.g. smoking, exercise, hormones, sex and age. Serum or plasma cholesterol measurement (mass/volume)Ordered By: Carly Carrasquillo on 08-17-2024 Cholesterol [Mass/Vol] 159 mg/dL <201 [facility] Comment on above: Cholesterol level, D esirable <200 mg/dLBorderline high cholesterol 200-239 mg/dLHigh cholesterol >=240 mg/dLRecommendations of the NCEP Adult Treatment Panel for the following risk-cutoff thresholds for the [place] population. Total proteinOrdered By: Jeff Carrasquillo on 08-17-2024 Protein [Mass/Vol] 7.0 g/dL 5.9-8.4 [facility] Triglycerides measurementOrd ered By: Carly Carrasquillo on 08-17-2024 Triglyceride [Mass/Vol] 224 mg/dL High <199 [facility] Comment on above: The drugs N-Acetylcy steine and Metamizole may falsely depress this assay. Normal range: <150 mg/dLBorderline High: 150-199 mg/dLHigh: 200-499 mg/dLVery High: >500 mg/dL Absolute neutrophil countOrd ered By: Genna Zuniga on 08-12-2024 Neutrophils (Bld) [#/Vol] 4.5 10*3/uL 2.0-7.7 [facility] Anion gap in Serum or Plasma Ordered By: Genna Aleksander on 08-12-2024 Anion gap [Moles/Vol] 11 mmol/L 5-[address] [facility] BUN/creatinine ratioOrdered By: Genna Aleksander on 08-12-2024 Urea nitrogen/Creatinine [Mass ratio] 25.6 mg/mg High 10-20 [facility] Basophil percentageOrdered B y: Genna Aleksander on 08-12-2024 Basophils/100 WBC (Bld) 0.4 % 0-1 [facility] Bilirubin, totalOrdered By: Genna Aleksander on 08-12-2024 Bilirubin [Mass/Vol] mg/dL 0.00-1.30 [facility] CBC W/Diff, Automatedon Absolute Lymph 2.41 X10 3/uL Normal 0.83-4.51 [facility] Comment on above: Order Comment: DR. Stephen SERRANO ORDERED BMP, CBCD, ALBUMINNP.T ALEKSANDER ORDERED CMP, CBCD, Performed By: #### L 500.4050, L100.0100 ####[facility] [address] [place], [address] Absolute Neut 4.5 X10 3/uL Normal 2.0-7.7 [facility] Comment on above: Order Comment: DR. Stephen SERRANO ORDERED BMP, CBCD, ALBUMINNP.T ALEKSANDER ORDERED CMP, CBCD, Performed By: #### L 500.4050, L100.0100 ####[facility] [address] [place], [address] Basophils/100 WBC (Bld) 0.4 % Normal 0-1 [facility] Comment on above: Order Comment: DR. Stephen SERRANO ORDERED BMP, CBCD, ALBUMINNP.T ALEKSANDER ORDERED CMP, CBCD, Performed By: #### L 500.4050, L100.0100 ####[facility] [address] [place], [address] Eosinophils/100 WBC (Bld) 0.9 % Normal 0-5 [facility] Comment on above: Order Comment: DR. Stephen SERRANO ORDERED BMP, CBCD, ALBUMINNP.T ALEKSANDER ORDERED CMP, CBCD, Performed By: #### L 500.4050, L100.0100 ####[facility] [address] [place], [address] Erythrocyte distribution width (RBC) [Ratio] 13.6 % Normal 11.6-14.6 [facility] Comment on above: Order Comment: DR. Stephen SERRANO ORDERED BMP, CBCD, ALBUMINNP.T ALEKSANDER ORDERED CMP, CBCD, Performed By: #### L 500.4050, L100.0100 ####[facility] [address] [place], [address] Hematocrit (Bld) [Volume fraction] 40.5 % Normal 37-47 [facility] Comment on above: Order Comment: DR. Stephen SERRANO ORDERED BMP, CBCD, ALBUMINNP.T ALEKSANDER ORDERED CMP, CBCD, Performed By: #### L 500.4050, L100.0100 ####[facility] [address] [place], [address] Hemoglobin (Bld) [Mass/Vol] 13.4 g/dL Normal 12.0-15.0 [facility] Comment on above: Order Comment: DR. Stephen SERRANO ORDERED BMP, CBCD, ALBUMINNP.T ALEKSANDER ORDERED CMP, CBCD, Performed By: #### L 500.4050, L100.0100 ####[facility] [address] [place], [address] IG% 0.400 Normal 0.0-0.9 [facility] Comment on above: Order Comment: DR. Stephen SERRANO ORDERED BMP, CBCD, ALBUMINNP.T ALEKSANDER ORDERED CMP, CBCD, Result Comment: IG% - Immature Granulocytes (promyelocytes, myelocytes andmetamyelocytes) > 1% indicates that a LEFT SHIFT is Present. Performed By: #### L 500.4050, L100.0100 ####[facility] [address] [place], [address] Lymphocytes/100 WBC (Bld) 31.7 % Normal 19-41 [facility] Comment on above: Order Comment: DR. Stephen SERRANO ORDERED BMP, CBCD, ALBUMINNP.T ALEKSANDER ORDERED CMP, CBCD, Performed By: #### L 500.4050, L100.0100 ####[facility] [address] [place], [address] MCH (RBC) [Entitic mass] 31.1 pg Normal 27.0-32.0 [facility] Comment on above: Order Comment: DR. Stephen SERRANO ORDERED BMP, CBCD, ALBUMINNP.T ALEKSANDER ORDERED CMP, CBCD, Performed By: #### L 500.4050, L100.0100 ####[facility] [address] [place], [address] MCHC (RBC) [Mass/Vol] 33.1 g/dL Normal 32-[address] [facility] Comment on above: Order Comment: DR. Stephen SERRANO ORDERED BMP, CBCD, ALBUMINNP.T ALEKSANDER ORDERED CMP, CBCD, Performed By: #### L 500.4050, L100.0100 ####[facility] [address] [place], [address] MCV (RBC) [Entitic vol] 94.0 fL Normal 81-99 [facility] Comment on above: Order Comment: DR. Stephen SERRANO ORDERED BMP, CBCD, ALBUMINNP.T ALEKSANDER ORDERED CMP, CBCD, Performed By: #### L 500.4050, L100.0100 ####[facility] [address] [place], [address] Monocytes/100 WBC (Bld) 7.8 % Normal 0-10 [facility] Comment on above: Order Comment: DR. Stephen SERRANO ORDERED BMP, CBCD, ALBUMINNP.T ALEKSANDER ORDERED CMP, CBCD, Performed By: #### L 500.4050, L100.0100 ####[facility] [address] [place], [address] Neutrophils/100 WBC (Bld) 58.8 % Normal 47-70 [facility] Comment on above: Order Comment: DR. Stephen SERRANO ORDERED BMP, CBCD, ALBUMINNP.T ALEKSANDER ORDERED CMP, CBCD, Performed By: #### L 500.4050, L100.0100 ####[facility] [address] [place], [address] Nucleated RBC (Bld) [#/Vol] 0 10*3/uL Normal 0-5 [facility] Comment on above: Order Comment: DR. Stephen SERRANO ORDERED BMP, CBCD, ALBUMINNP.T ALEKSANDER ORDERED CMP, CBCD, Performed By: #### L 500.4050, L100.0100 ####[facility] [address] [place], [address] Platelet mean volume (Bld) [Entitic vol] 9.7 fL Normal 6.2-12.0 [facility] Comment on above: Order Comment: DR. Stephen SERRANO ORDERED BMP, CBCD, ALBUMINNP.T ALEKSANDER ORDERED CMP, CBCD, Performed By: #### L 500.4050, L100.0100 ####[facility] [address] [place], [address] Platelets (Bld) [#/Vol] 205 10*3/uL Normal 150-450 [facility] Comment on above: Order Comment: DR. Stephen SERRANO ORDERED BMP, CBCD, ALBUMINNP.T ALEKSANDER ORDERED CMP, CBCD, Performed By: #### L 500.4050, L100.0100 ####[facility] [address] [place], [address] RBC (Bld) [#/Vol] 4.31 10*6/uL Normal 4.2-5.[address] [facility] Comment on above: Order Comment: DR. Stephen SERRANO ORDERED BMP, CBCD, ALBUMINNP.T ALEKSANDER ORDERED CMP, CBCD, Performed By: #### L 500.4050, L100.0100 ####[facility] [address] [place], [address] RDW SD 47.0 fl High 35.1-43.9 [facility] Comment on above: Order Comment: DR. Stephen SERRANO ORDERED BMP, CBCD, ALBUMINNP.T ALEKSANDER ORDERED CMP, CBCD, Performed By: #### L 500.4050, L100.0100 ####[facility] [address] [place], [address] WBC (Bld) [#/Vol] 7.6 10*3/uL Normal 4.4-11.0 [facility] Comment on above: Order Comment: DR. Stephen SERRANO ORDERED BMP, CBCD, ALBUMINNP.T ALEKSANDER ORDERED CMP, CBCD, Performed By: #### L 500.4050, L100.0100 ####[facility] [address] [place], [address] Carbon dioxide, total [Moles /volume] in Central venous bloodOrdered By: Genna Zuniga on 08-12-2024 CO2 [Moles/Vol] 23.1 mmol/L 21.0-32.0 [facility] Chloride assayOrdered By: Ty ra Zuniga on 08-12-2024 Chloride [Moles/Vol] 105 mmol/L 98-108 [facility] Comprehensive Metabolic Prof ilon 08-12-2024 Albumin [Mass/Vol] 4.3 g/dL Normal 3.5-5.0 [facility] Comment on above: Order Comment: DR. Stephen SERRANO ORDERED BMP, CBCD, ALBUMINNP.T ALEKSANDER ORDERED CMP, CBCD, Performed By: #### L 500.4050, L100.0100 ####[facility] [address] [place], [address] Albumin/Globulin [Mass ratio] 1.7 {ratio} Normal 0.9-2.4 [facility] Comment on above: Order Comment: DR. Stephen SERRANO ORDERED BMP, CBCD, ALBUMINNP.T ALEKSANDER ORDERED CMP, CBCD, Performed By: #### L 500.4050, L100.0100 ####[facility] [address] [place], [address] ALK PHOS 62 U/L Normal 35-104 [facility] Comment on above: Order Comment: DR. Stephen SERRANO ORDERED BMP, CBCD, ALBUMINNP.T ALEKSANDER ORDERED CMP, CBCD, Performed By: #### L 500.4050, L100.0100 ####[facility] [address] [place], [address] ALT [Catalytic activity/Vol] 37 U/L High <=34 [facility] Comment on above: Order Comment: DR. Stephen SERRANO ORDERED BMP, CBCD, ALBUMINNP.T ALEKSANDER ORDERED CMP, CBCD, Performed By: #### L 500.4050, L100.0100 ####[facility] [address] [place], [address] AST [Catalytic activity/Vol] 39 U/L High <=31 [facility] Comment on above: Order Comment: DR. Stephen SERRANO ORDERED BMP, CBCD, ALBUMINNP.T ALEKSANDER ORDERED CMP, CBCD, Result Comment: Hemo lysis present, Results??could be affected.?? Performed By: #### L 500.4050, L100.0100 ####[facility] [address] [place], [address] BUN/CRE 25.6 RATIO High 10-20 [facility] Comment on above: Order Comment: DR. Stephen SERRANO ORDERED BMP, CBCD, ALBUMINNP.T ALEKSANDER ORDERED CMP, CBCD, Performed By: #### L 500.4050, L100.0100 ####[facility] [address] [place], [address] Calcium [Mass/Vol] 10.4 mg/dL Normal 7.6-11.0 [facility] Comment on above: Order Comment: DR. Stephen SERRANO ORDERED BMP, CBCD, ALBUMINNP.T ALEKSANDER ORDERED CMP, CBCD, Performed By: #### L 500.4050, L100.0100 ####[facility] [address] [place], [address] Chloride [Moles/Vol] 105 mmol/L Normal 98-108 [facility] Comment on above: Order Comment: DR. Stephen SERRANO ORDERED BMP, CBCD, ALBUMINNP.T ALEKSANDER ORDERED CMP, CBCD, Performed By: #### L 500.4050, L100.0100 ####[facility] [address] [place], [address] CO2 [Moles/Vol] 23.1 mmol/L Normal 21.0-32.0 [facility] Comment on above: Order Comment: DR. Stephen SERRANO ORDERED BMP, CBCD, ALBUMINNP.T ALEKSANDER ORDERED CMP, CBCD, Performed By: #### L 500.4050, L100.0100 ####[facility] [address] [place], [address] Creatinine [Mass/Vol] 0.72 mg/dL Normal 0.70-1.[address] [facility] Comment on above: Order Comment: DR. Stephen SERRANO ORDERED BMP, CBCD, ALBUMINNP.T ALEKSANDER ORDERED CMP, CBCD, Performed By: #### L 500.4050, L100.0100 ####[facility] [address] [place], [address] ECRCL 112.35 ml/min Normal 50-250 [facility] Comment on above: Order Comment: DR. Stephen SERRANO ORDERED BMP, CBCD, ALBUMINNP.T ALEKSANDER ORDERED CMP, CBCD, Performed By: #### L 500.4050, L100.0100 ####[facility] [address] [place], [address] GAP 11 Normal 5-15 [facility] Comment on above: Order Comment: DR. Stephen SERRANO ORDERED BMP, CBCD, ALBUMINNP.T ALEKSANDER ORDERED CMP, CBCD, Performed By: #### L 500.4050, L100.0100 ####[facility] [address] [place], [address] GFR/1.73 sq M.predicted among non-blacks MDRD (S/P/Bld) [Vol rate/Area] 100 mL/min/{1.73_m2} Normal >60 [facility] Comment on above: Order Comment: DR. Stephen SERRANO ORDERED BMP, CBCD, ALBUMINNP.T ALEKSANDER ORDERED CMP, CBCD, Result Comment: mL/m in/1.73m2 CKD-EPI Creatinine Equation (2020) Performed By: #### L 500.4050, L100.0100 ####[facility] [address] [place], [address] Globulin (S) [Mass/Vol] 2.5 g/dL Normal 2.2-4.2 [facility] Comment on above: Order Comment: DR. Stephen SERRANO ORDERED BMP, CBCD, ALBUMINNP.T ALEKSANDER ORDERED CMP, CBCD, Performed By: #### L 500.4050, L100.0100 ####[facility] [address] [place], [address] Glucose [Mass/Vol] 103 mg/dL High 70-99 [facility] Comment on above: Order Comment: DR. Stephen SERRANO ORDERED BMP, CBCD, ALBUMINNP.T ALEKSANDER ORDERED CMP, CBCD, Performed By: #### L 500.4050, L100.0100 ####[facility] [address] [place], [address] Potassium [Moles/Vol] 4.2 mmol/L Normal 3.3-5.[address] [facility] Comment on above: Order Comment: DR. Stephen SERRANO ORDERED BMP, CBCD, ALBUMINNP.T ALEKSANDER ORDERED CMP, CBCD, Result Comment: Hemo lysis present, Results??could be affected.?? Performed By: #### L 500.4050, L100.0100 ####[facility] [address] [place], [address] Sodium [Moles/Vol] 140 mmol/L Normal 133-145 [facility] Comment on above: Order Comment: DR. Stephen SERRANO ORDERED BMP, CBCD, ALBUMINNP.T ALEKSANDER ORDERED CMP, CBCD, Performed By: #### L 500.4050, L100.0100 ####[facility] [address] [place], [address] T BILI < 0.15 Normal 0.00-1.30 [facility] Comment on above: Order Comment: DR. Stephen SERRANO ORDERED BMP, CBCD, ALBUMINNP.T ALEKSANDER ORDERED CMP, CBCD, Performed By: #### L 500.4050, L100.0100 ####[facility] [address] [place], [address] T PROT 6.8 g/dL Normal 5.9-8.4 [facility] Comment on above: Order Comment: DR. Stephen SERRANO ORDERED BMP, CBCD, ALBUMINNP.T ALEKSANDER ORDERED CMP, CBCD, Performed By: #### L 500.4050, L100.0100 ####[facility] [address] [place], [address] Urea nitrogen [Mass/Vol] 18 mg/dL Normal 4-19 [facility] Comment on above: Order Comment: DR. Stephen SERRANO ORDERED BMP, CBCD, ALBUMINNP.T ALEKSANDER ORDERED CMP, CBCD, Performed By: #### L 500.4050, L100.0100 ####[facility] [address] [place], [address] Eosinophil percentageOrdered By: Genna Aleksander on 08-12-2024 Eosinophils/100 WBC (Bld) 0.9 % 0-5 [facility] Erythrocyte distribution wid th ratioOrdered By: Genna Zuniga on 08-12-2024 Erythrocyte distribution width (RBC) [Ratio] 13.6 % 11.6-14.6 [facility] Erythrocyte distribution wid th standard deviationOrdered By: Genna Zuniga on 08-12-2024 Erythrocyte distribution width (RBC) [Entitic vol] 47.0 fL High 35.1-43.9 [facility] Estimation of creatinine suzanne aranceOrdered By: Genna Zuniga on 08-12-2024 Estimated Creatinine Clearance Calc 112.35 ml/min 50-250 [facility] Extremity Lower without Cont raon 08-12-2024 Extremity Lower without Contra Normal [facility] GFR/1.73 sq M.predicted demetris g non-blacks MDRD (S/P/Bld) [Vol rate/Area]Ordered By: Genna Zuniga on 08-12-2024 Estimated GFR (MDRD) Non-Af Amer 100 >60 [facility] Comment on above: mL/min/1.73m2 CKD-EP I Creatinine Equation (2020) Hematocrit Auto (Bld) [Volum e fraction]Ordered By: Genna Zuniga on 08-12-2024 Hematocrit (Bld) [Volume fraction] 40.5 % 37-47 [facility] Hemoglobin measurementOrdere d By: Genna Zuniga on 08-12-2024 Hemoglobin (Bld) [Mass/Vol] 13.4 g/dL 12.0-15.0 [facility] Immature granulocytes/100 WB C Auto (Bld)Ordered By: Genna Zuniga on 08-12-2024 Immature granulocytes/100 WBC (Bld) 0.400 % 0.0-0.9 [facility] Comment on above: IG% - Immature Granu locytes (promyelocytes, myelocytes and metamyelocytes) > 1% indicates that a LEFT SHIFT is Present. Laboratory - Chemistry and C hemistry - challengeOrdered By: Genna Zuniga on 08-12-2024 AST [Catalytic activity/Vol] 39 U/L High <32 [facility] Comment on above: Hemolysis present, R esults could be affected. Lymphocytes Auto (Unsp spec) [#/Vol]Ordered By: Genna Zuniga on 08-12-2024 Lymphocytes (Bld) [#/Vol] 2.41 10*3/uL 0.83-4.51 [facility] Lymphocytes/100 WBC Auto (Un sp spec)Ordered By: Genna StricklandAleksander on 08-12-2024 Lymphocytes/100 WBC (Bld) 31.7 % 19-41 [facility] MCV (mean corpuscular volume ) determinationOrdered By: Genna StricklandAleksander on 08-12-2024 MCV (RBC) [Entitic vol] 94.0 fL 81-99 [facility] Mean corpuscular hemoglobin (MCH) determinationOrdered By: Genna StricklandAleksander on 08-12-2024 MCH (RBC) [Entitic mass] 31.1 pg 27.0-32.0 [facility] Mean corpuscular hemoglobin concentration (MCHC) determinationOrdered By: Genna StricklandAleksander on 08-12-2024 MCHC (RBC) [Mass/Vol] 33.1 g/dL 32-[address] [facility] Mean platelet volume determi nationOrdered By: Genna StricklandAleksander on 08-12-2024 Platelet mean volume (Bld) [Entitic vol] 9.7 fL 6.2-12.0 [facility] Monocyte percentageOrdered B y: Genna Zuniga on 08-12-2024 Monocytes/100 WBC (Bld) 7.8 % 0-10 [facility] Neutrophil percentageOrdered By: Genna StricklandAleksander on 08-12-2024 Neutrophils/100 WBC (Bld) 58.8 % 47-70 [facility] Nucleated red blood cell per centageOrdered By: Genna StricklandAleksander on 08-12-2024 Nucleated RBC/100 WBC (Bld) [Ratio] 0 % 0-5 [facility] Oncology Visit Reporton Oncology Visit Report Normal [facility] Platelet countOrdered By: Erwin Zuniga on 08-12-2024 Platelets (Bld) [#/Vol] 205 10*3/uL 150-450 [facility] Potassium (Unsp spec) [Mass/ Vol]Ordered By: Genna Zuniga on 08-12-2024 Potassium [Moles/Vol] 4.2 mmol/L 3.3-5.[address] [facility] Comment on above: Hemolysis present, R esults could be affected. RBC Auto (Bld) [#/Vol]Ordere d By: Genna Zuniga on 08-12-2024 RBC (Bld) [#/Vol] 4.31 10*6/uL 4.2-5.[address] [facility] Serum creatinine measurement (mass/volume)Ordered By: Genna Zuniga on 08-12-2024 Creatinine [Mass/Vol] 0.72 mg/dL 0.70-1.[address] [facility] Serum globulin measurementOr dered By: Genna Zuniga on 08-12-2024 Globulin (S) [Mass/Vol] 2.5 g/dL 2.2-4.2 [facility] Serum glucose measurement (m ass/volume)Ordered By: Genna Zuniga on 08-12-2024 Glucose [Mass/Vol] 103 mg/dL High 70-99 [facility] Serum or plasma alanine alonzo otransferase (ALT) measurementOrdered By: Genna Zuniga on 08-12-2024 ALT [Catalytic activity/Vol] 37 U/L High <35 [facility] Serum or plasma albumin paul urement (mass/volume)Ordered By: Genna Zuniga on 08-12-2024 Albumin [Mass/Vol] 4.3 g/dL 3.5-5.0 [facility] Serum or plasma albumin/glob ulin mass ratioOrdered By: Genna Zuniga on 08-12-2024 Albumin/Globulin [Mass ratio] 1.7 {ratio} 0.9-2.4 [facility] Serum or plasma alkaline ubaldo sphatase measurementOrdered By: Genna Zuniga on 08-12-2024 ALP [Catalytic activity/Vol] 62 U/L 35-104 [facility] Serum or plasma calcium paul urement (mass/volume)Ordered By: Genna Zuniga on 08-12-2024 Calcium [Mass/Vol] 10.4 mg/dL 7.6-11.0 [facility] Serum or plasma urea nitroge n measurement (mass/volume)Ordered By: Genna Zuniga on 08-12-2024 Urea nitrogen [Mass/Vol] 18 mg/dL 4-19 [facility] Sodium levelOrdered By: Genna Zuniga on 08-12-2024 Sodium [Moles/Vol] 140 mmol/L 133-145 [facility] Total proteinOrdered By: David Zuniga on 08-12-2024 Protein [Mass/Vol] 6.8 g/dL 5.9-8.4 [facility] White blood cell (WBC) count Ordered By: Genna Zuniga on 08-12-2024 WBC (Bld) [#/Vol] 7.6 10*3/uL 4.4-11.0 [facility] Breast Limited Unilateralon 07-22-2024 Breast Limited Unilateral Normal [facility] Oncology Visit Reporton 07-10 Oncology Visit Report Normal [facility] Breast Limited Unilateralon 07-05-2024 Breast Limited Unilateral Normal [facility] CA 15-3on 07-02-2024 CA 15-3 43.5 U/mL Abnormal 0.0-25.0 [facility] Comment on above: Result Comment: [employer] Electrochemiluminescence Immunoassay(ECLIA)Values obtained with different assay methods or kits cannotbe used interchangeably. Results cannot be interpreted asabsolute evidence of the presence or absence of malignantdisease.Performed at: [facility] [place] [id number] Director: Ervin Hitchcock PhD, Phone: [phone] Performed By: #### L 504.2610, L100.0100, L3100.2300, L3100.5040, L500.4050, L3100.5030 ####[facility] [address] [place], [address] CA 27.29on 07-02-2024 CA 27.29 57.2 U/mL Abnormal 0.0-38.6 [facility] Comment on above: Result Comment: [employer] Immunochemiluminometric Methodology (ICMA)Values obtained with different assay methods or kits cannotbe used interchangeably. Results cannot be interpreted asabsolute evidence of the presence or absence of malignantdisease. Performed By: #### L 504.2610, L100.0100, L3100.2300, L3100.5040, L500.4050, L3100.5030 ####[facility] [address] [place], [place], [id number] Carcinoembryonic Antigenon 0 07-02-2024 CEA 1.1 ng/mL Normal 0.0-4.7 [facility] Comment on above: Result Comment: Nons mokers <3.9 Smokers <5.6[employer] Electrochemiluminescence Immunoassay(ECLIA)Values obtained with different assay methods or kitscannot be used interchangeably. Results cannot beinterpreted as absolute evidence of the presence orabsence of malignant disease. Performed By: #### L 504.2610, L100.0100, L3100.2300, L3100.5040, L500.4050, L3100.5030 ####[facility] [address] [facility] [address] [place], [place], [id number] CA 15-3Ordered By: Cristóbal smart on 07-01-2024 CA 15-3 Antigen 43.5 U/mL High 0.0-25.0 [facility] Comment on above: [employer] El ectrochemiluminescence Immunoassay(ECLIA)Values obtained with different assay methods or kits cannotbe used interchangeably. Results cannot be interpreted asabsolute evidence of the presence or absence of malignantdisease.Performed at: [facility] [id number] Director: Ervin Hitchcock PhD, Phone: [phone] CA 27.29Ordered By: Cristóbal bolivar on 07-01-2024 CA 27.29 57.2 U/mL High 0.0-38.6 [facility] Comment on above: [employer] Immu nochemiluminometric Methodology (ICMA)Values obtained with different assay methods or kits cannotbe used interchangeably. Results cannot be interpreted asabsolute evidence of the presence or absence of malignantdisease. CBC W/Diff, Automatedon 06-10 Absolute Lymph 2.67 X10 3/uL Normal 0.83-4.51 [facility] Comment on above: Performed By: #### L 504.2610, L100.0100, L3100.2300, L3100.5040, L500.4050, L3100.5030 ####[facility] [address] [place], [address] Absolute Neut 4.4 X10 3/uL Normal 2.0-7.7 [facility] Comment on above: Performed By: #### L 504.2610, L100.0100, L3100.2300, L3100.5040, L500.4050, L3100.5030 ####[facility] [address] [place], [address] Basophils/100 WBC (Bld) 0.4 % Normal 0-1 [facility] Comment on above: Performed By: #### L 504.2610, L100.0100, L3100.2300, L3100.5040, L500.4050, L3100.5030 ####[facility] [address] [place], [address] Eosinophils/100 WBC (Bld) 0.8 % Normal 0-5 [facility] Comment on above: Performed By: #### L 504.2610, L100.0100, L3100.2300, L3100.5040, L500.4050, L3100.5030 ####[facility] [address] [place], [address] Erythrocyte distribution width (RBC) [Ratio] 13.8 % Normal 11.6-14.6 [facility] Comment on above: Performed By: #### L 504.2610, L100.0100, L3100.2300, L3100.5040, L500.4050, L3100.5030 ####[facility] [address] [place], [address] Hematocrit (Bld) [Volume fraction] 39.4 % Normal 37-47 [facility] Comment on above: Performed By: #### L 504.2610, L100.0100, L3100.2300, L3100.5040, L500.4050, L3100.5030 ####[facility] [address] [place], [address] Hemoglobin (Bld) [Mass/Vol] 12.8 g/dL Normal 12.0-15.0 [facility] Comment on above: Performed By: #### L 504.2610, L100.0100, L3100.2300, L3100.5040, L500.4050, L3100.5030 ####[facility] [address] [place], [address] IG% 0.300 Normal 0.0-0.9 [facility] Comment on above: Result Comment: IG% - Immature Granulocytes (promyelocytes, myelocytes andmetamyelocytes) > 1% indicates that a LEFT SHIFT is Present. Performed By: #### L 504.2610, L100.0100, L3100.2300, L3100.5040, L500.4050, L3100.5030 ####[facility] [address] [place], [address] Lymphocytes/100 WBC (Bld) 34.6 % Normal 19-41 [facility] Comment on above: Performed By: #### L 504.2610, L100.0100, L3100.2300, L3100.5040, L500.4050, L3100.5030 ####[facility] [address] [place], [address] MCH (RBC) [Entitic mass] 30.2 pg Normal 27.0-32.0 [facility] Comment on above: Performed By: #### L 504.2610, L100.0100, L3100.2300, L3100.5040, L500.4050, L3100.5030 ####[facility] [address] [place], [address] MCHC (RBC) [Mass/Vol] 32.5 g/dL Normal 32-[address] [facility] Comment on above: Performed By: #### L 504.2610, L100.0100, L3100.2300, L3100.5040, L500.4050, L3100.5030 ####[facility] [address] [place], [address] MCV (RBC) [Entitic vol] 92.9 fL Normal 81-99 [facility] Comment on above: Performed By: #### L 504.2610, L100.0100, L3100.2300, L3100.5040, L500.4050, L3100.5030 ####[facility] [address] [place], [address] Monocytes/100 WBC (Bld) 6.4 % Normal 0-10 [facility] Comment on above: Performed By: #### L 504.2610, L100.0100, L3100.2300, L3100.5040, L500.4050, L3100.5030 ####[facility] [address] [place], [address] Neutrophils/100 WBC (Bld) 57.5 % Normal 47-70 [facility] Comment on above: Performed By: #### L 504.2610, L100.0100, L3100.2300, L3100.5040, L500.4050, L3100.5030 ####[facility] [address] [place], [address] Nucleated RBC (Bld) [#/Vol] 0 10*3/uL Normal 0-5 [facility] Comment on above: Performed By: #### L 504.2610, L100.0100, L3100.2300, L3100.5040, L500.4050, L3100.5030 ####[facility] [address] [place], [address] Platelet mean volume (Bld) [Entitic vol] 9.0 fL Normal 6.2-12.0 [facility] Comment on above: Performed By: #### L 504.2610, L100.0100, L3100.2300, L3100.5040, L500.4050, L3100.5030 ####[facility] [address] [place], [address] Platelets (Bld) [#/Vol] 224 10*3/uL Normal 150-450 [facility] Comment on above: Performed By: #### L 504.2610, L100.0100, L3100.2300, L3100.5040, L500.4050, L3100.5030 ####[facility] [address] [place], [address] RBC (Bld) [#/Vol] 4.24 10*6/uL Normal 4.2-5.[address] [facility] Comment on above: Performed By: #### L 504.2610, L100.0100, L3100.2300, L3100.5040, L500.4050, L3100.5030 ####[facility] [address] [place], [address] RDW SD 46.6 fl High 35.1-43.9 [facility] Comment on above: Performed By: #### L 504.2610, L100.0100, L3100.2300, L3100.5040, L500.4050, L3100.5030 ####[facility] [address] [place], [address] WBC (Bld) [#/Vol] 7.7 10*3/uL Normal 4.4-11.0 [facility] Comment on above: Performed By: #### L 504.2610, L100.0100, L3100.2300, L3100.5040, L500.4050, L3100.5030 ####[facility] [address] [place], [address] Comprehensive Metabolic Prof ilon 07-01-2024 Albumin [Mass/Vol] 3.5 g/dL Normal 3.2-5.0 [facility] Comment on above: Order Comment: 1 Performed By: #### L 504.2610, L100.0100, L3100.2300, L3100.5040, L500.4050, L3100.5030 ####[facility] [address] [place], [address] Albumin/Globulin [Mass ratio] 1.1 {ratio} Normal 0.9-2.4 [facility] Comment on above: Order Comment: 1 Performed By: #### L 504.2610, L100.0100, L3100.2300, L3100.5040, L500.4050, L3100.5030 ####[facility] [address] [place], [address] ALK P 56 U/L Normal 45-117 [facility] Comment on above: Order Comment: 1 Performed By: #### L 504.2610, L100.0100, L3100.2300, L3100.5040, L500.4050, L3100.5030 ####[facility] [address] [place], [address] ALT [Catalytic activity/Vol] 42 U/L Normal 13-56 [facility] Comment on above: Order Comment: 1 Performed By: #### L 504.2610, L100.0100, L3100.2300, L3100.5040, L500.4050, L3100.5030 ####[facility] [address] [place], [address] AST [Catalytic activity/Vol] 33 U/L Normal 15-37 [facility] Comment on above: Order Comment: 1 Performed By: #### L 504.2610, L100.0100, L3100.2300, L3100.5040, L500.4050, L3100.5030 ####[facility] [address] [place], [address] Bilirubin [Mass/Vol] 0.30 mg/dL Normal 0.20-1.00 [facility] Comment on above: Order Comment: 1 Result Comment: For patients on eltrombopag therapy, use of Dimension [place] TBIL is not recommended. Performed By: #### L 504.2610, L100.0100, L3100.2300, L3100.5040, L500.4050, L3100.5030 ####[facility] [address] [place], [address] BUN/CRE 25.7 RATIO High 10-20 [facility] Comment on above: Order Comment: 1 Performed By: #### L 504.2610, L100.0100, L3100.2300, L3100.5040, L500.4050, L3100.5030 ####[facility] [address] [place], [address] CA,Total 10.2 mg/dL High 8.5-10.1 [facility] Comment on above: Order Comment: 1 Performed By: #### L 504.2610, L100.0100, L3100.2300, L3100.5040, L500.4050, L3100.5030 ####[facility] [address] [place], [address] Chloride [Moles/Vol] 108 mmol/L High 98-107 [facility] Comment on above: Order Comment: 1 Performed By: #### L 504.2610, L100.0100, L3100.2300, L3100.5040, L500.4050, L3100.5030 ####[facility] [address] [place], [address] CO2 [Moles/Vol] 28.0 mmol/L Normal 21.0-32.0 [facility] Comment on above: Order Comment: 1 Performed By: #### L 504.2610, L100.0100, L3100.2300, L3100.5040, L500.4050, L3100.5030 ####[facility] [address] [place], [address] Creatinine [Mass/Vol] 0.74 mg/dL Normal 0.55-1.[address] [facility] Comment on above: Order Comment: 1 Result Comment: The validity of the calculated GFR GFRAA in patients over70 years has not been determined. Clinical correlation isessential. Performed By: #### L 504.2610, L100.0100, L3100.2300, L3100.5040, L500.4050, L3100.5030 ####[facility] [address] [place], [address] ECRCL 109.35 ml/min Normal [facility] Comment on above: Order Comment: 1 Performed By: #### L 504.2610, L100.0100, L3100.2300, L3100.5040, L500.4050, L3100.5030 ####[facility] [address] [place], [address] EST GFR - AA 105 mL/min Normal >60 [facility] Comment on above: Order Comment: 1 Result Comment: Afri can Jamaican GFR Calc Performed By: #### L 504.2610, L100.0100, L3100.2300, L3100.5040, L500.4050, L3100.5030 ####[facility] [address] [place], [address] GAP 5 Normal 5-15 [facility] Comment on above: Order Comment: 1 Performed By: #### L 504.2610, L100.0100, L3100.2300, L3100.5040, L500.4050, L3100.5030 ####[facility] [address] [place], [address] GFR/1.73 sq M.predicted among non-blacks MDRD (S/P/Bld) [Vol rate/Area] 87 mL/min/{1.73_m2} Normal >60 [facility] Comment on above: Order Comment: 1 Result Comment: Non- GFR Calc Performed By: #### L 504.2610, L100.0100, L3100.2300, L3100.5040, L500.4050, L3100.5030 ####[facility] [address] [place], [address] Globulin (S) [Mass/Vol] 3.3 g/dL Normal 2.2-4.2 [facility] Comment on above: Order Comment: 1 Performed By: #### L 504.2610, L100.0100, L3100.2300, L3100.5040, L500.4050, L3100.5030 ####[facility] [address] [place], [place], [phone] Glucose [Mass/Vol] 102 mg/dL Normal 74-106 [facility] Comment on above: Order Comment: 1 Result Comment: Fast ing Glucose result from 100 to 125 mg/dLsuggests IMPAIRED HOMEOSTASIS per A.D.A. criteria. Performed By: #### L 504.2610, L100.0100, L3100.2300, L3100.5040, L500.4050, L3100.5030 ####[facility] [address] [place], [address] Potassium [Moles/Vol] 4.1 mmol/L Normal 3.5-5.[address] [facility] Comment on above: Order Comment: 1 Performed By: #### L 504.2610, L100.0100, L3100.2300, L3100.5040, L500.4050, L3100.5030 ####[facility] [address] [place], [address] Sodium [Moles/Vol] 141 mmol/L Normal 136-145 [facility] Comment on above: Order Comment: 1 Performed By: #### L 504.2610, L100.0100, L3100.2300, L3100.5040, L500.4050, L3100.5030 ####[facility] [address] [place], [address] T PROT 6.8 g/dL Normal 6.4-8.2 [facility] Comment on above: Order Comment: 1 Performed By: #### L 504.2610, L100.0100, L3100.2300, L3100.5040, L500.4050, L3100.5030 ####[facility] [address] [place], [address] Urea nitrogen [Mass/Vol] 19 mg/dL High 7-18 [facility] Comment on above: Order Comment: 1 Performed By: #### L 504.2610, L100.0100, L3100.2300, L3100.5040, L500.4050, L3100.5030 ####[facility] [address] [place], [address] Estimated glomerular filtrat ion rate (GFR) AmericanOrdered By: Cristóbal Ford on 07-01-2024 Estimated GFR (MDRD) Amer 105 mL/min >60 [facility] Comment on above: GFR Calc LDHon 07-01-2024 LDH 163 U/L Normal 84-246 [facility] Comment on above: Order Comment: 1 Performed By: #### L 504.2610, L100.0100, L3100.2300, L3100.5040, L500.4050, L3100.5030 ####[facility] [address] [place], [address] Lactate dehydrogenase (LDH) measurementOrdered By: Cristóbal Ford on 07-01-2024 LDH [Catalytic activity/Vol] 163 U/L 84-246 [facility] Miscellaneous procedureOrder ed By: Cristóbal Ford on 07-01-2024 Miscellaneous Test Comment SEE SCANNED REPORT [facility] NATERAon 07-01-2024 NATURA SEE SCANNED REPORT Normal [facility] Comment on above: Performed By: #### L 900.0098 ####[facility] [address] [place], [address] Oncology Visit Reporton 06-10 Oncology Visit Report Normal [facility] E-CAD (initial)on 06-16-2024 E-CAD (initial) Normal [facility] Comment on above: Performed By: #### P ECAD ####[facility] [address] [place], [address] Special Stain Group Ion Special Stain Group I Normal [facility] Comment on above: Performed By: #### P SSI ####[facility] [address] [place], [address] Surgery Visit Reporton 06-16 Surgery Visit Report Normal [facility] Oncology Visit Reporton Oncology Visit Report Normal [facility] PET/CT Tumor Base -Thigh Sub son 06-15-2024 PET/CT Tumor Base -Thigh Subs Normal [facility] Oncology Visit Reporton Oncology Visit Report Normal [facility] CBC W/Diff, Automatedon 05-09 Absolute Lymph 2.19 X10 3/uL Normal 0.83-4.51 [facility] Comment on above: Performed By: #### L 100.0100, L504.2610, L500.4050 ####[facility] [address] [place], [address] Absolute Neut 4.9 X10 3/uL Normal 2.0-7.7 [facility] Comment on above: Performed By: #### L 100.0100, L504.2610, L500.4050 ####[facility] [address] [place], [address] Basophils/100 WBC (Bld) 0.4 % Normal 0-1 [facility] Comment on above: Performed By: #### L 100.0100, L504.2610, L500.4050 ####[facility] [address] [place], [address] Eosinophils/100 WBC (Bld) 0.9 % Normal 0-5 [facility] Comment on above: Performed By: #### L 100.0100, L504.2610, L500.4050 ####[facility] [address] [place], [address] Erythrocyte distribution width (RBC) [Ratio] 13.6 % Normal 11.6-14.6 [facility] Comment on above: Performed By: #### L 100.0100, L504.2610, L500.4050 ####[facility] [address] [place], [address] Hematocrit (Bld) [Volume fraction] 40.1 % Normal 37-47 [facility] Comment on above: Performed By: #### L 100.0100, L504.2610, L500.4050 ####[facility] [address] [place], [address] Hemoglobin (Bld) [Mass/Vol] 13.0 g/dL Normal 12.0-15.0 [facility] Comment on above: Performed By: #### L 100.0100, L504.2610, L500.4050 ####[facility] [address] [place], [address] IG% 0.500 Normal 0.0-0.9 [facility] Comment on above: Result Comment: IG% - Immature Granulocytes (promyelocytes, myelocytes andmetamyelocytes) > 1% indicates that a LEFT SHIFT is Present. Performed By: #### L 100.0100, L504.2610, L500.4050 ####[facility] [address] [place], [address] Lymphocytes/100 WBC (Bld) 28.8 % Normal 19-41 [facility] Comment on above: Performed By: #### L 100.0100, L504.2610, L500.4050 ####[facility] [address] [place], [address] MCH (RBC) [Entitic mass] 30.6 pg Normal 27.0-32.0 [facility] Comment on above: Performed By: #### L 100.0100, L504.2610, L500.4050 ####[facility] [address] [place], [address] MCHC (RBC) [Mass/Vol] 32.4 g/dL Normal 32-[address] [facility] Comment on above: Performed By: #### L 100.0100, L504.2610, L500.4050 ####[facility] [address] [place], [address] MCV (RBC) [Entitic vol] 94.4 fL Normal 81-99 [facility] Comment on above: Performed By: #### L 100.0100, L504.2610, L500.4050 ####[facility] [address] [place], [address] Monocytes/100 WBC (Bld) 5.1 % Normal 0-10 [facility] Comment on above: Performed By: #### L 100.0100, L504.2610, L500.4050 ####[facility] [address] [place], [address] Neutrophils/100 WBC (Bld) 64.3 % Normal 47-70 [facility] Comment on above: Performed By: #### L 100.0100, L504.2610, L500.4050 ####[facility] [address] [place], [address] Nucleated RBC (Bld) [#/Vol] 0 10*3/uL Normal 0-5 [facility] Comment on above: Performed By: #### L 100.0100, L504.2610, L500.4050 ####[facility] [address] [place], [address] Platelet mean volume (Bld) [Entitic vol] 9.2 fL Normal 6.2-12.0 [facility] Comment on above: Performed By: #### L 100.0100, L504.2610, L500.4050 ####[facility] [address] [place], [address] Platelets (Bld) [#/Vol] 205 10*3/uL Normal 150-450 [facility] Comment on above: Performed By: #### L 100.0100, L504.2610, L500.4050 ####[facility] [address] [place], [address] RBC (Bld) [#/Vol] 4.25 10*6/uL Normal 4.2-5.[address] [facility] Comment on above: Performed By: #### L 100.0100, L504.2610, L500.4050 ####[facility] [address] [place], [address] RDW SD 47.2 fl High 35.1-43.9 [facility] Comment on above: Performed By: #### L 100.0100, L504.2610, L500.4050 ####[facility] [address] [place], [address] WBC (Bld) [#/Vol] 7.6 10*3/uL Normal 4.4-11.0 [facility] Comment on above: Performed By: #### L 100.0100, L504.2610, L500.4050 ####[facility] [address] [place], [address] Comprehensive Metabolic Prof ilon 05-20-2024 Albumin [Mass/Vol] 3.6 g/dL Normal 3.2-5.0 [facility] Comment on above: Order Comment: 1 Performed By: #### L 100.0100, L504.2610, L500.4050 ####[facility] [address] [place], [address] Albumin/Globulin [Mass ratio] 1.2 {ratio} Normal 0.9-2.4 [facility] Comment on above: Order Comment: 1 Performed By: #### L 100.0100, L504.2610, L500.4050 ####[facility] [address] [place], [address] ALK P 64 U/L Normal 45-117 [facility] Comment on above: Order Comment: 1 Performed By: #### L 100.0100, L504.2610, L500.4050 ####[facility] [address] [place], [address] ALT [Catalytic activity/Vol] 37 U/L Normal 13-56 [facility] Comment on above: Order Comment: 1 Performed By: #### L 100.0100, L504.2610, L500.4050 ####[facility] [address] [place], [address] AST [Catalytic activity/Vol] 29 U/L Normal 15-37 [facility] Comment on above: Order Comment: 1 Performed By: #### L 100.0100, L504.2610, L500.4050 ####[facility] [address] [place], [address] Bilirubin [Mass/Vol] 0.30 mg/dL Normal 0.20-1.00 [facility] Comment on above: Order Comment: 1 Result Comment: For patients on eltrombopag therapy, use of Dimension [place] TBIL is not recommended. Performed By: #### L 100.0100, L504.2610, L500.4050 ####[facility] [address] [place], [address] BUN/CRE 27.1 RATIO High 10-20 [facility] Comment on above: Order Comment: 1 Performed By: #### L 100.0100, L504.2610, L500.4050 ####[facility] [address] [place], [address] CA,Total 10.2 mg/dL High 8.5-10.1 [facility] Comment on above: Order Comment: 1 Performed By: #### L 100.0100, L504.2610, L500.4050 ####[facility] [address] [place], [address] Chloride [Moles/Vol] 109 mmol/L High 98-107 [facility] Comment on above: Order Comment: 1 Performed By: #### L 100.0100, L504.2610, L500.4050 ####[facility] [address] [place], [address] CO2 [Moles/Vol] 30.0 mmol/L Normal 21.0-32.0 [facility] Comment on above: Order Comment: 1 Performed By: #### L 100.0100, L504.2610, L500.4050 ####[facility] [address] [place], [address] Creatinine [Mass/Vol] 0.85 mg/dL Normal 0.55-1.[address] [facility] Comment on above: Order Comment: 1 Result Comment: The validity of the calculated GFR GFRAA in patients over70 years has not been determined. Clinical correlation isessential. Performed By: #### L 100.0100, L504.2610, L500.4050 ####[facility] [address] [place], [address] ECRCL 94.53 ml/min Normal [facility] Comment on above: Order Comment: 1 Performed By: #### L 100.0100, L504.2610, L500.4050 ####[facility] [address] [place], [address] EST GFR - AA 89 mL/min Normal >60 [facility] Comment on above: Order Comment: 1 Result Comment: Afri can Jamaican GFR Calc Performed By: #### L 100.0100, L504.2610, L500.4050 ####[facility] [address] [place], [address] GAP 2 Low 5-15 [facility] Comment on above: Order Comment: 1 Performed By: #### L 100.0100, L504.2610, L500.4050 ####[facility] [address] [place], [address] GFR/1.73 sq M.predicted among non-blacks MDRD (S/P/Bld) [Vol rate/Area] 74 mL/min/{1.73_m2} Normal >60 [facility] Comment on above: Order Comment: 1 Result Comment: Non- GFR Calc Performed By: #### L 100.0100, L504.2610, L500.4050 ####[facility] [address] [place], [address] Globulin (S) [Mass/Vol] 3.0 g/dL Normal 2.2-4.2 [facility] Comment on above: Order Comment: 1 Performed By: #### L 100.0100, L504.2610, L500.4050 ####[facility] [address] [place], [address] Glucose [Mass/Vol] 135 mg/dL High 74-106 [facility] Comment on above: Order Comment: 1 Result Comment: Fast ing Glucose result greater than or equal to 126 mg/dLsuggests DIABETES MELLITUS per A.D.A. criteria. Performed By: #### L 100.0100, L504.2610, L500.4050 ####[facility] [address] [place], [address] Potassium [Moles/Vol] 3.7 mmol/L Normal 3.5-5.[address] [facility] Comment on above: Order Comment: 1 Performed By: #### L 100.0100, L504.2610, L500.4050 ####[facility] [address] [place], [address] Sodium [Moles/Vol] 141 mmol/L Normal 136-145 [facility] Comment on above: Order Comment: 1 Performed By: #### L 100.0100, L504.2610, L500.4050 ####[facility] [address] [place], [address] T PROT 6.6 g/dL Normal 6.4-8.2 [facility] Comment on above: Order Comment: 1 Performed By: #### L 100.0100, L504.2610, L500.4050 ####[facility] [address] [place], [address] Urea nitrogen [Mass/Vol] 23 mg/dL High 7-18 [facility] Comment on above: Order Comment: 1 Performed By: #### L 100.0100, L504.2610, L500.4050 ####[facility] [address] [place], [address] LDHon 05-20-2024 LDH 187 U/L Normal 84-246 [facility] Comment on above: Order Comment: 1 Performed By: #### L 100.0100, L504.2610, L500.4050 ####[facility] [address] [place], [address] Oncology Visit Reporton 05-09 Oncology Visit Report Normal [facility] ONC Echo Completeon 05-19-20 ONC Echo Complete Normal [facility] CA 15-3on 04-30-2024 CA 15-3 45.2 U/mL Abnormal 0.0-25.0 [facility] Comment on above: Result Comment: [employer] [employer] Electrochemiluminescence Immunoassay(ECLIA)Values obtained with different assay methods or kits cannotbe used interchangeably. Results cannot be interpreted asabsolute evidence of the presence or absence of malignantdisease.Performed at: [facility] [id number] Director: Ervin Hitchcock PhD, Phone: [phone] Performed By: #### L 3100.5030, L3100.5040, L100.0100, L500.4050, L3100.2300 ####[facility] [address] [place], [place], [id number] CA 27.29on 04-30-2024 CA 27.29 61.3 U/mL Abnormal 0.0-38.6 [facility] Comment on above: Result Comment: [place] Immunochemiluminometric Methodology (ICMA)Values obtained with different assay methods or kits cannotbe used interchangeably. Results cannot be interpreted asabsolute evidence of the presence or absence of malignantdisease. Performed By: #### L 3100.5030, L3100.5040, L100.0100, L500.4050, L3100.2300 ####[facility] [address] [place], [place], [id number] Carcinoembryonic Antigenon 1 06-30-2023 CEA 1.2 ng/mL Normal 0.0-4.7 [facility] Comment on above: Result Comment: Nons mokers <3.9 Smokers <5.6[employer] Electrochemiluminescence Immunoassay(ECLIA)Values obtained with different assay methods or kitscannot be used interchangeably. Results cannot beinterpreted as absolute evidence of the presence orabsence of malignant disease. Performed By: #### L 3100.5030, L3100.5040, L100.0100, L500.4050, L3100.2300 ####[facility] [address] [place], [address] CBC W/Diff, Automatedon 11-2 Absolute Lymph 2.47 X10 3/uL Normal 0.83-4.51 [facility] Comment on above: Performed By: #### L 3100.5030, L3100.5040, L100.0100, L500.4050, L3100.2300 ####[facility] [address] [place], [address] Absolute Neut 4.7 X10 3/uL Normal 2.0-7.7 [facility] Comment on above: Performed By: #### L 3100.5030, L3100.5040, L100.0100, L500.4050, L3100.2300 ####[facility] [address] [place], [address] Basophils/100 WBC (Bld) 0.3 % Normal 0-1 [facility] Comment on above: Performed By: #### L 3100.5030, L3100.5040, L100.0100, L500.4050, L3100.2300 ####[facility] [address] [place], [address] Eosinophils/100 WBC (Bld) 1.2 % Normal 0-5 [facility] Comment on above: Performed By: #### L 3100.5030, L3100.5040, L100.0100, L500.4050, L3100.2300 ####[facility] [address] [place], [address] Erythrocyte distribution width (RBC) [Ratio] 13.7 % Normal 11.6-14.6 [facility] Comment on above: Performed By: #### L 3100.5030, L3100.5040, L100.0100, L500.4050, L3100.2300 ####[facility] [address] [place], [address] Hematocrit (Bld) [Volume fraction] 38.5 % Normal 37-47 [facility] Comment on above: Performed By: #### L 3100.5030, L3100.5040, L100.0100, L500.4050, L3100.2300 ####[facility] [address] [place], [address] Hemoglobin (Bld) [Mass/Vol] 12.5 g/dL Normal 12.0-15.0 [facility] Comment on above: Performed By: #### L 3100.5030, L3100.5040, L100.0100, L500.4050, L3100.2300 ####[facility] [address] [place], [address] IG% 0.300 Normal 0.0-0.9 [facility] Comment on above: Result Comment: IG% - Immature Granulocytes (promyelocytes, myelocytes andmetamyelocytes) > 1% indicates that a LEFT SHIFT is Present. Performed By: #### L 3100.5030, L3100.5040, L100.0100, L500.4050, L3100.2300 ####[facility] [address] [place], [address] Lymphocytes/100 WBC (Bld) 31.9 % Normal 19-41 [facility] Comment on above: Performed By: #### L 3100.5030, L3100.5040, L100.0100, L500.4050, L3100.2300 ####[facility] [address] [place], [address] MCH (RBC) [Entitic mass] 31.0 pg Normal 27.0-32.0 [facility] Comment on above: Performed By: #### L 3100.5030, L3100.5040, L100.0100, L500.4050, L3100.2300 ####[facility] [address] [place], [address] MCHC (RBC) [Mass/Vol] 32.5 g/dL Normal 32-[address] [facility] Comment on above: Performed By: #### L 3100.5030, L3100.5040, L100.0100, L500.4050, L3100.2300 ####[facility] [address] [place], [address] MCV (RBC) [Entitic vol] 95.5 fL Normal 81-99 [facility] Comment on above: Performed By: #### L 3100.5030, L3100.5040, L100.0100, L500.4050, L3100.2300 ####[facility] [address] [place], [address] Monocytes/100 WBC (Bld) 6.5 % Normal 0-10 [facility] Comment on above: Performed By: #### L 3100.5030, L3100.5040, L100.0100, L500.4050, L3100.2300 ####[facility] [address] [place], [address] Neutrophils/100 WBC (Bld) 59.8 % Normal 47-70 [facility] Comment on above: Performed By: #### L 3100.5030, L3100.5040, L100.0100, L500.4050, L3100.2300 ####[facility] [address] [place], [address] Nucleated RBC (Bld) [#/Vol] 0 10*3/uL Normal 0-5 [facility] Comment on above: Performed By: #### L 3100.5030, L3100.5040, L100.0100, L500.4050, L3100.2300 ####[facility] [address] [place], [address] Platelet mean volume (Bld) [Entitic vol] 9.1 fL Normal 6.2-12.0 [facility] Comment on above: Performed By: #### L 3100.5030, L3100.5040, L100.0100, L500.4050, L3100.2300 ####[facility] [address] [place], [address] Platelets (Bld) [#/Vol] 208 10*3/uL Normal 150-450 [facility] Comment on above: Performed By: #### L 3100.5030, L3100.5040, L100.0100, L500.4050, L3100.2300 ####[facility] [address] [place], [address] RBC (Bld) [#/Vol] 4.03 10*6/uL Low 4.2-5.[address] [facility] Comment on above: Performed By: #### L 3100.5030, L3100.5040, L100.0100, L500.4050, L3100.2300 ####[facility] [address] [place], [address] RDW SD 48.3 fl High 35.1-43.9 [facility] Comment on above: Performed By: #### L 3100.5030, L3100.5040, L100.0100, L500.4050, L3100.2300 ####[facility] [address] [place], [address] WBC (Bld) [#/Vol] 7.8 10*3/uL Normal 4.4-11.0 [facility] Comment on above: Performed By: #### L 3100.5030, L3100.5040, L100.0100, L500.4050, L3100.2300 ####[facility] [address] [place], [address] Comprehensive Metabolic Prof [facility] 04-29-2024 Albumin [Mass/Vol] 3.9 g/dL Normal 3.2-5.0 [facility] Comment on above: Performed By: #### L 3100.5030, L3100.5040, L100.0100, L500.4050, L3100.2300 ####[facility] [address] [place], [address] Albumin/Globulin [Mass ratio] 1.3 {ratio} Normal 0.9-2.4 [facility] Comment on above: Performed By: #### L 3100.5030, L3100.5040, L100.0100, L500.4050, L3100.2300 ####[facility] [address] [place], [address] ALK P 68 U/L Normal 45-117 [facility] Comment on above: Performed By: #### L 3100.5030, L3100.5040, L100.0100, L500.4050, L3100.2300 ####[facility] [address] [place], [address] ALT [Catalytic activity/Vol] 31 U/L Normal 13-56 [facility] Comment on above: Performed By: #### L 3100.5030, L3100.5040, L100.0100, L500.4050, L3100.2300 ####[facility] [address] [place], [address] AST [Catalytic activity/Vol] 27 U/L Normal 15-37 [facility] Comment on above: Performed By: #### L 3100.5030, L3100.5040, L100.0100, L500.4050, L3100.2300 ####[facility] [address] [place], [address] Bilirubin [Mass/Vol] 0.30 mg/dL Normal 0.20-1.00 [facility] Comment on above: Result Comment: For patients on eltrombopag therapy, use of Dimension [place] TBIL is not recommended. Performed By: #### L 3100.5030, L3100.5040, L100.0100, L500.4050, L3100.2300 ####[facility] [address] [place], [address] BUN/CRE 29.3 RATIO High 10-20 [facility] Comment on above: Performed By: #### L 3100.5030, L3100.5040, L100.0100, L500.4050, L3100.2300 ####[facility] [address] [place], [address] CA,Total 9.6 mg/dL Normal 8.5-10.1 [facility] Comment on above: Performed By: #### L 3100.5030, L3100.5040, L100.0100, L500.4050, L3100.2300 ####[facility] [address] [place], [address] Chloride [Moles/Vol] 109 mmol/L High 98-107 [facility] Comment on above: Performed By: #### L 3100.5030, L3100.5040, L100.0100, L500.4050, L3100.2300 ####[facility] [address] [place], [address] CO2 [Moles/Vol] 26.0 mmol/L Normal 21.0-32.0 [facility] Comment on above: Performed By: #### L 3100.5030, L3100.5040, L100.0100, L500.4050, L3100.2300 ####[facility] [address] [place], [address] Creatinine [Mass/Vol] 0.78 mg/dL Normal 0.55-1.[address] [facility] Comment on above: Result Comment: The validity of the calculated GFR GFRAA in patients over70 years has not been determined. Clinical correlation isessential. Performed By: #### L 3100.5030, L3100.5040, L100.0100, L500.4050, L3100.2300 ####[facility] [address] [place], [address] ECRCL 102.63 ml/min Normal [facility] Comment on above: Performed By: #### L 3100.5030, L3100.5040, L100.0100, L500.4050, L3100.2300 ####[facility] [address] [place], [address] EST GFR - AA 98 mL/min Normal >60 [facility] Comment on above: Result Comment: Afri can Jamaican GFR Calc Performed By: #### L 3100.5030, L3100.5040, L100.0100, L500.4050, L3100.2300 ####[facility] [address] [place], [address] GAP 5 Normal 5-15 [facility] Comment on above: Performed By: #### L 3100.5030, L3100.5040, L100.0100, L500.4050, L3100.2300 ####[facility] [address] [place], [address] GFR/1.73 sq M.predicted among non-blacks MDRD (S/P/Bld) [Vol rate/Area] 81 mL/min/{1.73_m2} Normal >60 [facility] Comment on above: Result Comment: Non- GFR Calc Performed By: #### L 3100.5030, L3100.5040, L100.0100, L500.4050, L3100.2300 ####[facility] [address] [place], [address] Globulin (S) [Mass/Vol] 3.0 g/dL Normal 2.2-4.2 [facility] Comment on above: Performed By: #### L 3100.5030, L3100.5040, L100.0100, L500.4050, L3100.2300 ####[facility] [address] [place], [address] Glucose [Mass/Vol] 98 mg/dL Normal 74-106 [facility] Comment on above: Performed By: #### L 3100.5030, L3100.5040, L100.0100, L500.4050, L3100.2300 ####[facility] [address] [place], [address] Potassium [Moles/Vol] 3.9 mmol/L Normal 3.5-5.[address] [facility] Comment on above: Performed By: #### L 3100.5030, L3100.5040, L100.0100, L500.4050, L3100.2300 ####[facility] [address] [place], [address] Sodium [Moles/Vol] 140 mmol/L Normal 136-145 [facility] Comment on above: Performed By: #### L 3100.5030, L3100.5040, L100.0100, L500.4050, L3100.2300 ####[facility] [address] [place], [address] T PROT 6.9 g/dL Normal 6.4-8.2 [facility] Comment on above: Performed By: #### L 3100.5030, L3100.5040, L100.0100, L500.4050, L3100.2300 ####[facility] [address] [place], [address] Urea nitrogen [Mass/Vol] 23 mg/dL High 7-18 [facility] Comment on above: Performed By: #### L 3100.5030, L3100.5040, L100.0100, L500.4050, L3100.2300 ####[facility] [address] [place], [address] Oncology Visit Reporton 11-2 Oncology Visit Report Normal [facility] CBC W/Diff, Automatedon 10-3 Absolute Lymph 2.83 X10 3/uL Normal 0.83-4.51 [facility] Comment on above: Performed By: #### L 100.0100, L500.4050 ####[facility] [address] [place], [address] Absolute Neut 4.4 X10 3/uL Normal 2.0-7.7 [facility] Comment on above: Performed By: #### L 100.0100, L500.4050 ####[facility] [address] [place], [address] Basophils/100 WBC (Bld) 0.3 % Normal 0-1 [facility] Comment on above: Performed By: #### L 100.0100, L500.4050 ####[facility] [address] [place], [address] Eosinophils/100 WBC (Bld) 0.8 % Normal 0-5 [facility] Comment on above: Performed By: #### L 100.0100, L500.4050 ####[facility] [address] [place], [address] Erythrocyte distribution width (RBC) [Ratio] 13.4 % Normal 11.6-14.6 [facility] Comment on above: Performed By: #### L 100.0100, L500.4050 ####[facility] [address] [place], [address] Hematocrit (Bld) [Volume fraction] 38.3 % Normal 37-47 [facility] Comment on above: Performed By: #### L 100.0100, L500.4050 ####[facility] [address] [place], [address] Hemoglobin (Bld) [Mass/Vol] 12.5 g/dL Normal 12.0-15.0 [facility] Comment on above: Performed By: #### L 100.0100, L500.4050 ####[facility] [address] [place], [address] IG% 0.400 Normal 0.0-0.9 [facility] Comment on above: Result Comment: IG% - Immature Granulocytes (promyelocytes, myelocytes andmetamyelocytes) > 1% indicates that a LEFT SHIFT is Present. Performed By: #### L 100.0100, L500.4050 ####[facility] [address] [place], [address] Lymphocytes/100 WBC (Bld) 35.6 % Normal 19-41 [facility] Comment on above: Performed By: #### L 100.0100, L500.4050 ####[facility] [address] [place], [address] MCH (RBC) [Entitic mass] 31.5 pg Normal 27.0-32.0 [facility] Comment on above: Performed By: #### L 100.0100, L500.4050 ####[facility] [address] [place], [address] MCHC (RBC) [Mass/Vol] 32.6 g/dL Normal 32-[address] [facility] Comment on above: Performed By: #### L 100.0100, L500.4050 ####[facility] [address] [place], [address] MCV (RBC) [Entitic vol] 96.5 fL Normal 81-99 [facility] Comment on above: Performed By: #### L 100.0100, L500.4050 ####[facility] [address] [place], [address] Monocytes/100 WBC (Bld) 7.3 % Normal 0-10 [facility] Comment on above: Performed By: #### L 100.0100, L500.4050 ####[facility] [address] [place], [address] Neutrophils/100 WBC (Bld) 55.6 % Normal 47-70 [facility] Comment on above: Performed By: #### L 100.0100, L500.4050 ####[facility] [address] [place], [address] Nucleated RBC (Bld) [#/Vol] 0 10*3/uL Normal 0-5 [facility] Comment on above: Performed By: #### L 100.0100, L500.4050 ####[facility] [address] [place], [address] Platelet mean volume (Bld) [Entitic vol] 9.2 fL Normal 6.2-12.0 [facility] Comment on above: Performed By: #### L 100.0100, L500.4050 ####[facility] [address] [place], [address] Platelets (Bld) [#/Vol] 210 10*3/uL Normal 150-450 [facility] Comment on above: Performed By: #### L 100.0100, L500.4050 ####[facility] [address] [place], [address] RBC (Bld) [#/Vol] 3.97 10*6/uL Low 4.2-5.[address] [facility] Comment on above: Performed By: #### L 100.0100, L500.4050 ####[facility] [address] [place], [address] RDW SD 47.7 fl High 35.1-43.9 [facility] Comment on above: Performed By: #### L 100.0100, L500.4050 ####[facility] [address] [place], [address] WBC (Bld) [#/Vol] 7.9 10*3/uL Normal 4.4-11.0 [facility] Comment on above: Performed By: #### L 100.0100, L500.4050 ####[facility] [address] [place], [address] Comprehensive Metabolic Prof ilon 04-08-2024 Albumin [Mass/Vol] 3.9 g/dL Normal 3.2-5.0 [facility] Comment on above: Performed By: #### L 100.0100, L500.4050 ####[facility] [address] [place], [address] Albumin/Globulin [Mass ratio] 1.2 {ratio} Normal 0.9-2.4 [facility] Comment on above: Performed By: #### L 100.0100, L500.4050 ####[facility] [address] [place], [address] ALK P 91 U/L Normal 45-117 [facility] Comment on above: Performed By: #### L 100.0100, L500.4050 ####[facility] [address] [place], [address] ALT [Catalytic activity/Vol] 31 U/L Normal 13-56 [facility] Comment on above: Performed By: #### L 100.0100, L500.4050 ####[facility] [address] [place], [address] AST [Catalytic activity/Vol] 25 U/L Normal 15-37 [facility] Comment on above: Performed By: #### L 100.0100, L500.4050 ####[facility] [address] [place], [address] Bilirubin [Mass/Vol] 0.50 mg/dL Normal 0.20-1.00 [facility] Comment on above: Result Comment: For patients on eltrombopag therapy, use of Dimension [place] TBIL is not recommended. Performed By: #### L 100.0100, L500.4050 ####[facility] [address] [place], [address] BUN/CRE 31.1 RATIO High 10-20 [facility] Comment on above: Performed By: #### L 100.0100, L500.4050 ####[facility] [address] [place], [address] CA,Total 10.4 mg/dL High 8.5-10.1 [facility] Comment on above: Performed By: #### L 100.0100, L500.4050 ####[facility] [address] [place], [address] Chloride [Moles/Vol] 107 mmol/L Normal 98-107 [facility] Comment on above: Performed By: #### L 100.0100, L500.4050 ####[facility] [address] [place], [address] CO2 [Moles/Vol] 29.0 mmol/L Normal 21.0-32.0 [facility] Comment on above: Performed By: #### L 100.0100, L500.4050 ####[facility] [address] [place], [address] Creatinine [Mass/Vol] 0.74 mg/dL Normal 0.55-1.[address] [facility] Comment on above: Result Comment: The validity of the calculated GFR GFRAA in patients over70 years has not been determined. Clinical correlation isessential. Performed By: #### L 100.0100, L500.4050 ####[facility] [address] [place], [address] ECRCL 108.15 ml/min Normal [facility] Comment on above: Performed By: #### L 100.0100, L500.4050 ####[facility] [address] [place], [address] EST GFR - AA 105 mL/min Normal >60 [facility] Comment on above: Result Comment: Afri can Jamaican GFR Calc Performed By: #### L 100.0100, L500.4050 ####[facility] [address] [place], [address] GAP 3 Low 5-15 [facility] Comment on above: Performed By: #### L 100.0100, L500.4050 ####[facility] [address] [place], [address] GFR/1.73 sq M.predicted among non-blacks MDRD (S/P/Bld) [Vol rate/Area] 87 mL/min/{1.73_m2} Normal >60 [facility] Comment on above: Result Comment: Non- GFR Calc Performed By: #### L 100.0100, L500.4050 ####[facility] [address] [place], [address] Globulin (S) [Mass/Vol] 3.2 g/dL Normal 2.2-4.2 [facility] Comment on above: Performed By: #### L 100.0100, L500.4050 ####[facility] [address] [place], [address] Glucose [Mass/Vol] 87 mg/dL Normal 74-106 [facility] Comment on above: Performed By: #### L 100.0100, L500.4050 ####[facility] [address] [place], [address] Potassium [Moles/Vol] 4.0 mmol/L Normal 3.5-5.[address] [facility] Comment on above: Performed By: #### L 100.0100, L500.4050 ####[facility] [address] [place], [address] Sodium [Moles/Vol] 139 mmol/L Normal 136-145 [facility] Comment on above: Performed By: #### L 100.0100, L500.4050 ####[facility] [address] [place], [address] T PROT 7.1 g/dL Normal 6.4-8.2 [facility] Comment on above: Performed By: #### L 100.0100, L500.4050 ####[facility] [address] [place], [address] Urea nitrogen [Mass/Vol] 23 mg/dL High 7-18 [facility] Comment on above: Performed By: #### L 100.0100, L500.4050 ####[facility] [address] [place], [address] Oncology Visit Reporton 10-3 Oncology Visit Report Normal [facility] Cancer antigen 125 (CA-125) measurementOrdered By: Cristóbal Ford on 03-18-2024 CA 125 Antigen 10.2 U/mL 0.0-38.1 [facility] Comment on above: [employer] El ectrochemiluminescence Immunoassay(ECLIA)Values obtained with different assay methods or kits cannotbe used interchangeably. Results cannot be interpreted asabsolute evidence of the presence or absence of malignantdisease. Cancer antigen 125 (CA-125) measurement 10.2 U/mL 0.0-38.1 [facility] Comment on above: [employer] El ectrochemiluminescence Immunoassay(ECLIA)Values obtained with different assay methods or kits cannotbe used interchangeably. Results cannot be interpreted asabsolute evidence of the presence or absence of malignantdisease. Bilirubin directOrdered By: Jesus Varma on 01-15-2024 Bilirubin.direct [Mass/Vol] 0.15 mg/dL 0.00-0.30 [facility] Cholesterol measurementOrder ed By: Jesus Varma on 01-15-2024 Cholesterol [Mass/Vol] 130 mg/dL <200 [facility] Comment on above: <200 mg/dL Desirable 200-240 mg/dL Borderline >240 mg/dL High Risk High density lipoprotein (HD L) measurementOrdered By: Jesus Varma on 01-15-2024 Cholesterol in HDL [Mass/Vol] 51 mg/dL >40 [facility] Comment on above: The drugs N-Acetylcy steine and Metamizole may falsely depress this assay. Reference Range HDL <40 mg/dL Low HDL Cholesterol HDL >or= 60 mg/dL High HDL Cholesterol Low density lipoprotein (LDL ) cholesterol measurementOrdered By: Jesus Varma on 01-15-2024 Cholesterol in LDL [Mass/Vol] 49 mg/dL 0-130 [facility] Serum or plasma thyroid stim ulating hormone (TSH) measurement (units/volume)Ordered By: Blue Alicia on 01-15-2024 TSH Qn 1.50 uIU/mL 0.358-3.74 [facility] TSH QnOrdered By: Blue poon on 01-15-2024 Thyroid Stimulating Hormone (TSH) 1.50 uIU/mL 0.358-3.74 [facility] Triglycerides measurementOrd ered By: Jesus Varma on 01-15-2024 Triglyceride [Mass/Vol] 148 mg/dL <199 [facility] Comment on above: The drugs N-Acetylcy steine and Metamizole may falsely depress this assay.Serum Triglycerides Reference Interval Normal <150 mg/dL Borderline high 150 - 199 mg/dL High 200 - 499 mg/dL Very High > or = 500 mg/dL Very low density lipoprotein (VLDL) cholesterol measurementOrdered By: Jesus Varma on 01-15-2024 Very low density lipoprotein (VLDL) cholesterol measurement 30 mg/dL 5-40 [facility] VLDL Cholesterol 30 mg/dL 5-40 [facility] Office Visiton 10-28-2023 Follow-up visit [id number] Tania Russell 1970 F Date Provider Department Center 10/28/2023 [id number] RAUSCH [facility] Offi Family History Problem Relation Age of Onset Diabetes Mother Stroke Paternal Grandmother Colon cancer Maternal Grandfather Family Status - Relation Status Age at Mother Alive Paternal Grandmother Maternal Grandfather Father Level of Service:36677 [place] [facility] FOLLOW UP VISIT RELATED TO ORIGINAL [...] 10-10-2023 Beta HCG ( test) Ql (U) [id number] [facility] NEGATIVE QC Pass [facility] POSITIVE QC Pass [facility] Preg Test, Ur Negative Negative [facility] Radiology Study observation (narrative) [facility] Nursing Noteon 10-10-2023 Nursing Note Patient [...] w/ D&C, Myosure Polypectomy Surgeon: Dr. Rausch Contract Admin: None Findings: Polyp noted on the posterior [...] to the recovery room in stable condition. [facility] PREPROCINSon 10-03-2023 PREPROCINS Medication List Accurate as [...] your scheduled surgery time. Please bring your [facility] Surgical folder and medication list with you day of surgery. We encourage you to write down any questions you may have for the surgeon, anesthesiologist, or other members of the surgical team and bring it with you the day of surgery. Please bring photo ID and insurance information. You may use the tube and rod straightener parking located at the main entrance on [address] [place] [address] and take the H elevator to the [...] - DO NOT do CPR, intubation] [_] [DNR-HEADER DOCK - Comfort care only] [_] DNR form [...] patient and/or family/surrogate. Alyssa Morales, SEGUN - LIQUIFIED NATURAL GAS TECHNICIAN [facility] 10/03/2023, 4:28 PM [facility] 36on 09-12-2023 36 Pt is scheduled for a hysteroscopy D&C on 10/10/2023 @ 11a @ [facility]. PAT on 10/03/2023 @ 330pm. [facility] Progress Noteon 09-02-2023 Progress Note [...] today to the best of my ability. [facility] Office Visiton 08-12-2023 Follow-up visit [id number] Tania Russell 1970 F Date Provider Department Center 08/12/2023 [id number] GOLDBERG V [facility] OB Offi Family History Problem Relation Age of Onset Diabetes Mother Stroke Paternal Grandmother Colon cancer Maternal Grandfather Family Status - Relation Status Age at Mother Alive Paternal Grandmother Maternal Grandfather Father Level of Service:38332 AL OFFICE/OUTPATIENT ESTABLISHED LOW [facility] 20 MIN Reason for Visit and Comments: Follow-up [000773] - Review [facility] Progress Noteon 08-12-2023 Progress Note Chief Complaint Patient presents with Follow-up Review [facility] Patient's last menstrual period was 04/12/2023 (exact [...] 08/12/2023 04:13 pm) PATIENT INFO: ID #: [id number] : [birth year] (53 yrs)(F) Name: LISSETT RUSSELL Visit Date: 08/12/2023 10:31 am PERFORMED BY: Attending: Carlee Camp MD Performed By: Albina Montana RDMS Referred By: NIKKO GOLDBERG MD Location: [facility] ANIMATION CAMERA OPERATOR [place] SERVICE(S) PROVIDED: Turbine Engineer Transvaginal [id number] INDICATIONS: Postmenopausal bleeding N95.0 TECHNIQUE/SCAN QUALITY: Technique: [...] ultrasound. *Ultrasound cannot detect all pelvic or MACHINE PACKER abnormalities and normal findings cannot guarantee the absence of a problem.* Normal [facility] Absolute lymphocyte countOrd ered By: Genna StricklandAleksander on 07-31-2023 Lymphocytes Auto (Unsp spec) [#/Vol] 2.73 10*3/uL 0.83-4.51 [facility] Automated lymphocyte count a s percentage of total leukocytesOrdered By: Genna Zuniga on 07-31-2023 Lymphocytes/100 WBC Auto (Unsp spec) 33.2 % 19-41 [facility] Basophil percentageOrdered B y: Genna StricklandAleksander on 07-31-2023 Basophils/100 WBC (Bld) 0.2 % 0-1 [facility] Bilirubin [Mass/Vol] 0.30 mg/dL 0.20-1.00 [facility] Comment on above: For patients on eltr ombopag therapy, use of [place] TBIL is not recommended. Chloride [Moles/Vol] 108 mmol/L 98-107 [facility] Eosinophils/100 WBC (Bld) 0.7 % 0-5 [facility] Glucose [Mass/Vol] 103 mg/dL 74-106 [facility] Comment on above: Fasting Glucose resu lt from 100 to 125 mg/dL suggests IMPAIRED HOMEOSTASIS per A.D.A. criteria. Hemoglobin (Bld) [Mass/Vol] 13.2 g/dL 12.0-15.0 [facility] Monocytes/100 WBC (Bld) 6.9 % 0-10 [facility] Neutrophils (Bld) [#/Vol] 4.8 10*3/uL 2.0-7.7 [facility] Neutrophils/100 WBC (Bld) 58.6 % 47-70 [facility] Potassium [Moles/Vol] 3.9 mmol/L 3.5-5.[address] [facility] Protein [Mass/Vol] 6.9 g/dL 6.4-8.2 [facility] Sodium [Moles/Vol] 141 mmol/L 136-145 [facility] WBC (Bld) [#/Vol] 8.2 10*3/uL 4.4-11.0 [facility] Determination of erythrocyte mean corpuscular volume (MCV)Ordered By: Genna Zuniga on 07-31-2023 MCV (RBC) [Entitic vol] 96.7 fL 81-99 [facility] Erythrocyte distribution wid th ratioOrdered By: [facility] on 07-31-2023 Erythrocyte distribution width (RBC) [Ratio] 13.2 % 11.6-14.6 [facility] Erythrocyte distribution wid th standard deviationOrdered By: [facility] on 07-31-2023 Erythrocyte distribution width (RBC) [Entitic vol] 47.1 fL 35.1-43.9 [facility] Hematocrit Auto (Bld) [Volum e fraction]Ordered By: [facility] on 07-31-2023 Hematocrit (Bld) [Volume fraction] 40.7 % 37-47 [facility] Immature granulocytes/100 WB C Auto (Bld)Ordered By: [facility] on 07-31-2023 Immature granulocytes/100 WBC (Bld) 0.400 % 0.0-0.9 [facility] Comment on above: IG% - Immature Granu locytes (promyelocytes, myelocytes and metamyelocytes) > 1% indicates that a LEFT SHIFT is Present. Laboratory - Chemistry and C hemistry - challengeOrdered By: [facility] on 07-31-2023 Albumin/Globulin [Mass ratio] 1.2 {ratio} 0.9-2.4 [facility] ALP [Catalytic activity/Vol] 44 U/L 45-117 [facility] ALT [Catalytic activity/Vol] 56 U/L 13-56 [facility] CO2 [Moles/Vol] 27.0 mmol/L 21.0-32.0 [facility] Globulin (S) [Mass/Vol] 3.2 g/dL 2.2-4.2 [facility] Urea nitrogen/Creatinine [Mass ratio] 24.2 mg/mg 10-20 [facility] Laboratory - Hematology and Cell countsOrdered By: Gennanino Zuniga on 07-31-2023 MCH (RBC) [Entitic mass] 31.4 pg 27.0-32.0 [facility] MCHC (RBC) [Mass/Vol] 32.4 g/dL 32-[address] [facility] Nucleated RBC/100 WBC (Bld) [Ratio] 0 % 0-5 [facility] Platelet mean volume (Bld) [Entitic vol] 9.1 fL 6.2-12.0 [facility] Platelets (Bld) [#/Vol] 201 10*3/uL 150-450 [facility] No Panel InformationOrdered By: Genna Zuniga on 07-31-2023 CA 15-3 Antigen 24.8 U/mL 0.0-25.0 [facility] Comment on above: [employer] El ectrochemiluminescence Immunoassay(ECLIA)Values obtained with different assay methods or kits cannotbe used interchangeably. Results cannot be interpreted asabsolute evidence of the presence or absence of malignantdisease.Performed at: [facility] [address] [id number] Director: Ervin Hitchcock PhD, Phone: [phone] [place] 27.29 27.7 U/mL 0.0-38.6 [facility] Comment on above: [employer] Immu nochemiluminometric Methodology (ICMA)Values obtained with different assay methods or kits cannotbe used interchangeably. Results cannot be interpreted asabsolute evidence of the presence or absence of malignantdisease. Estimated Creatinine Clearance Calc 98.30 ml/min [facility] Estimated GFR (MDRD) Amer 92 mL/min >60 [facility] Comment on above: GFR Calc Estimated GFR (MDRD) Non-Af Amer 76 mL/min >60 [facility] Comment on above: Non- GFR Calc No Panel InformationOrdered By: Cristóbal Ford on 07-31-2023 Miscellaneous Test Comment SEE SCANNED REPORT [facility] RBC Auto (Bld) [#/Vol]Ordere d By: Genna Zuniga on 07-31-2023 RBC (Bld) [#/Vol] 4.21 10*6/uL 4.2-5.4 [facility] Serum or plasma calcium paul urement (mass/volume)Ordered By: Genna Zuniga on 07-31-2023 Calcium [Mass/Vol] 9.6 mg/dL 8.5-10.1 [facility] Serum or plasma creatinine m easurement (mass/volume)Ordered By: Genna Zuniga on 07-31-2023 Creatinine [Mass/Vol] 0.83 mg/dL 0.55-1.[address] [facility] Comment on above: The validity of the calculated GFR & GFRAA in patients over 70 years has not been determined. Clinical correlation is essential. Serum or plasma urea nitroge n measurement (mass/volume)Ordered By: Genna Zuniga on 07-31-2023 Urea nitrogen [Mass/Vol] 20 mg/dL 7-18 [facility] Thin prep Papanicolaou smear with manual screeningOrdered By: Genna Zuniga on 07-31-2023 Thin prep Papanicolaou smear with manual screening 3.7 g/dL 3.2-5.0 [facility] Thin prep Papanicolaou smear with manual screening 44 U/L 15-37 [facility] Thin prep Papanicolaou smear with manual screening 6 5-15 [facility] Basophil percentageOrdered B y: Jesus Varma on 06-26-2023 Cholesterol [Mass/Vol] 142 mg/dL <200 [facility] Comment on above: <200 mg/dL Desirable 200-240 mg/dL Borderline >240 mg/dL High Risk Triglyceride [Mass/Vol] 187 mg/dL <199 [facility] Comment on above: The drugs N-Acetylcy steine and Metamizole may falsely depress this assay.Serum Triglycerides Reference Interval Normal <150 mg/dL Borderline high 150 - 199 mg/dL High 200 - 499 mg/dL Very High > or = 500 mg/dL Direct bilirubinOrdered By: Jesus Varma on 06-26-2023 Bilirubin.direct [Mass/Vol] 0.16 mg/dL 0.00-0.30 [facility] Laboratory - Chemistry and C hemistry - challengeOrdered By: Jesus Varma on 06-26-2023 Cholesterol in HDL (Body fld) [Mass/Vol] 53 mg/dL >40 [facility] Comment on above: The drugs N-Acetylcy steine and Metamizole may falsely depress this assay. Reference Range HDL <40 mg/dL Low HDL Cholesterol HDL >or= 60 mg/dL High HDL Cholesterol Cholesterol in LDL (Body fld) [Moles/Vol] 52 mg/dL 0-130 [facility] Cholesterol in VLDL Calc [Moles/Vol] 37 mg/dL 5-40 [facility] Office Visiton 05-13-2023 Follow-up visit [id number] Tania Russell 1970 F Date Provider Department Center 05/13/2023 [id number] GOLDBERG V [facility] Offi Family History Problem Relation Age of Onset Diabetes Mother Stroke Paternal Grandmother Colon cancer Maternal Grandfather Family Status - Relation Status Age at Mother Alive Paternal Grandmother Maternal Grandfather Father Level of Service:64167 AL OFFICE/OUTPATIENT ESTABLISHED LOW MDM 20-29 MIN Reason for Visit and Comments: Vaginal Bleeding [213652] Normal [employer] [facility] Progress Noteon 05-13-2023 Progress Note Chief Complaint [...] Left breast lesion. Pathologic Diagnosis Outside Slides: [id number] (06/06/2022) A. Left Breast at 2 o'clock, [...] 04-30-2023 Cholesterol [Mass/Vol] 151 mg/dL Normal 0-200 [facility] ([place]) Comment on above: Result Comment: Chol esterol Reference Interval: Less than 200 Desirable 200-239 Borderline high risk 240 and above High risk Performed By: #### L IPID #### [address] [place], [place] [address] Cholesterol in HDL [Mass/Vol] 55 mg/dL Normal 40-60 [facility] ([place]) Comment on above: Performed By: #### L IPID #### [facility] [address] [place], [place] [address] Cholesterol in LDL [Mass/Vol] 67 mg/dL Normal 0-130 [facility] ([place]) Comment on above: Performed By: #### L IPID #### [facility] [address] [place], [place] [address] Triglyceride [Mass/Vol] 143 mg/dL Normal 0-150 [facility] ([place]) Comment on above: Result Comment: Trig lyceride Reference Interval: Less than 150 Normal 150-199 Borderline high risk 200-499 High risk 500 or higher Very high risk Performed By: #### L IPID #### [facility] [address] [place], [place] [address] Absolute lymphocyte countOrd ered By: Genna Zuniga on 04-24-2023 Lymphocytes Auto (Unsp spec) [#/Vol] 2.53 10*3/uL 0.83-4.51 [facility] Basophil percentageOrdered B y: Genna Zuniga on 04-24-2023 Basophils/100 WBC (Bld) 0.2 % 0-1 [facility] Bilirubin [Mass/Vol] 0.30 mg/dL 0.20-1.00 [facility] Comment on above: For patients on eltr ombopag therapy, use of [place] TBIL is not recommended. Chloride [Moles/Vol] 111 mmol/L 98-107 [facility] Eosinophils/100 WBC (Bld) 0.9 % 0-5 [facility] Glucose [Mass/Vol] 106 mg/dL 74-106 [facility] Comment on above: Fasting Glucose resu lt from 100 to 125 mg/dL suggests IMPAIRED HOMEOSTASIS per A.D.A. criteria. Neutrophils (Bld) [#/Vol] 5.4 10*3/uL 2.0-7.7 [facility] Neutrophils/100 WBC (Bld) 62.8 % 47-70 [facility] Potassium [Moles/Vol] 3.6 mmol/L 3.5-5.[address] [facility] Protein [Mass/Vol] 7.0 g/dL 6.4-8.2 [facility] Sodium [Moles/Vol] 144 mmol/L 136-145 [facility] WBC (Bld) [#/Vol] 8.6 10*3/uL 4.4-11.0 [facility] Blood erythrocytes count (nu mber/volume)Ordered By: Genna Zuniga on 04-24-2023 RBC (Bld) [#/Vol] 4.11 10*6/uL 4.2-5.[address] [facility] Blood hemoglobin measurement (mass/volume)Ordered By: Genna Zuniga on 04-24-2023 Hemoglobin (Bld) [Mass/Vol] 13.1 g/dL 12.0-15.0 [facility] Blood lymphocytes/100 leukoc ytesOrdered By: Genna Zuniga on 04-24-2023 Lymphocytes/100 WBC (Bld) 29.5 % 19-41 [facility] Blood monocytes/100 leukocyt esOrdered By: [facility] Aleksander on 04-24-2023 Monocytes/100 WBC (Bld) 6.4 % 0-10 [facility] Blood platelet mean volumeOr dered By: Genna Zuniga on 04-24-2023 Platelet mean volume (Bld) [Entitic vol] 9.0 fL 6.2-12.0 [facility] Determination of erythrocyte mean corpuscular volume (MCV)Ordered By: Genna Zuniga on 04-24-2023 MCV (RBC) [Entitic vol] 98.5 fL 81-99 [facility] Hematocrit Auto (Bld) [Volum e fraction]Ordered By: Genna Zuniga on 04-24-2023 Hematocrit (Bld) [Volume fraction] 40.5 % 37-47 [facility] Laboratory - Chemistry and C hemistry - challengeOrdered By: Genna Zuniga on 04-24-2023 ALP [Catalytic activity/Vol] 40 U/L 45-117 [facility] ALT [Catalytic activity/Vol] 34 U/L 13-56 [facility] CO2 [Moles/Vol] 29.0 mmol/L 21.0-32.0 [facility] Globulin (S) [Mass/Vol] 3.2 g/dL 2.2-4.2 [facility] Urea nitrogen/Creatinine [Mass ratio] 30.3 mg/mg 10-20 [facility] Laboratory - Hematology and Cell countsOrdered By: Genna Zuniga on 04-24-2023 Erythrocyte distribution width (RBC) [Entitic vol] 47.6 fL 35.1-43.9 [facility] Erythrocyte distribution width (RBC) [Ratio] 13.2 % 11.6-14.6 [facility] Immature granulocytes/100 WBC (Bld) 0.200 % 0.0-0.9 [facility] Comment on above: IG% - Immature Granu locytes (promyelocytes, myelocytes and metamyelocytes) > 1% indicates that a LEFT SHIFT is Present. MCH (RBC) [Entitic mass] 31.9 pg 27.0-32.0 [facility] Nucleated RBC/100 WBC (Bld) [Ratio] 0 % 0-5 [facility] MCHC Auto (RBC) [Mass/Vol]Or dered By: Genna Zuniga on 04-24-2023 MCHC (RBC) [Mass/Vol] 32.3 g/dL 32-[address] [facility] No Panel InformationOrdered By: Genna Zuniga on 04-24-2023 Miscellaneous Test Comment MAILED SPECIMEN [facility] CA 15-3 Antigen 20.9 U/mL 0.0-25.0 [facility] Comment on above: [employer] El ectrochemiluminescence Immunoassay(ECLIA)Values obtained with different assay methods or kits cannotbe used interchangeably. Results cannot be interpreted asabsolute evidence of the presence or absence of malignantdisease.Performed at: [employer] [id number] Director: Ervin Hitchcock PhD, Phone: [phone] [place] 27.29 21.2 U/mL 0.0-38.6 [facility] Comment on above: [employer]aur Immu nochemiluminometric Methodology (ICMA)Values obtained with different assay methods or kits cannotbe used interchangeably. Results cannot be interpreted asabsolute evidence of the presence or absence of malignantdisease. Estimated Creatinine Clearance Calc 90.11 ml/min [facility] Estimated GFR (MDRD) Amer 108 mL/min >60 [facility] Comment on above: GFR Calc Estimated GFR (MDRD) Non-Af Amer 89 mL/min >60 [facility] Comment on above: Non- GFR Calc Platelets bldOrdered By: David Zuniga on 04-24-2023 Platelets (Bld) [#/Vol] 200 10*3/uL 150-450 [facility] Serum or plasma albumin paul urement (mass/volume)Ordered By: Genna Zuniga on 04-24-2023 Albumin [Mass/Vol] 3.8 g/dL 3.2-5.0 [facility] Serum or plasma albumin/glob ulin mass ratioOrdered By: Genna Zuniga on 04-24-2023 Albumin/Globulin [Mass ratio] 1.2 {ratio} 0.9-2.4 [facility] Serum or plasma calcium paul urement (mass/volume)Ordered By: Genna Zuniga on 04-24-2023 Calcium [Mass/Vol] 9.6 mg/dL 8.5-10.1 [facility] Serum or plasma creatinine m easurement (mass/volume)Ordered By: Genna Zuniga on 04-24-2023 Creatinine [Mass/Vol] 0.72 mg/dL 0.55-1.[address] [facility] Comment on above: The validity of the calculated GFR & GFRAA in patients over 70 years has not been determined. Clinical correlation is essential. Serum or plasma urea nitroge n measurement (mass/volume)Ordered By: Genna Zuniga on 04-24-2023 Urea nitrogen [Mass/Vol] 22 mg/dL 7-18 [facility] Thin prep Papanicolaou smear with manual screeningOrdered By: Genna Zuniga on 04-24-2023 Thin prep Papanicolaou smear with manual screening 22 U/L 15-37 [facility] Thin prep Papanicolaou smear with manual screening 4 5-15 [facility] Absolute lymphocyte countOrd ered By: Cristóbal Ford on 03-13-2023 Lymphocytes Auto (Unsp spec) [#/Vol] 2.25 10*3/uL 0.83-4.51 [facility] Basophil percentageOrdered B y: Cristóbal Ford on 03-13-2023 Basophils/100 WBC (Bld) 0.3 % 0-1 [facility] Bilirubin [Mass/Vol] 0.40 mg/dL 0.20-1.00 [facility] Comment on above: For patients on eltr ombopag therapy, use of [place] TBIL is not recommended. Chloride [Moles/Vol] 110 mmol/L 98-107 [facility] Eosinophils/100 WBC (Bld) 0.5 % 0-5 [facility] Glucose [Mass/Vol] 91 mg/dL 74-106 [facility] LDH [Catalytic activity/Vol] 183 U/L 84-246 [facility] Neutrophils (Bld) [#/Vol] 5.9 10*3/uL 2.0-7.7 [facility] Neutrophils/100 WBC (Bld) 66.7 % 47-70 [facility] Potassium [Moles/Vol] 3.7 mmol/L 3.5-5.[address] [facility] Protein [Mass/Vol] 6.6 g/dL 6.4-8.2 [facility] Sodium [Moles/Vol] 141 mmol/L 136-145 [facility] WBC (Bld) [#/Vol] 8.8 10*3/uL 4.4-11.0 [facility] Blood erythrocytes count (nu mber/volume)Ordered By: Cristóbal Ford on 03-13-2023 RBC (Bld) [#/Vol] 4.16 10*6/uL 4.2-5.[address] [facility] Blood hemoglobin measurement (mass/volume)Ordered By: Cristóbal Ford on 03-13-2023 Hemoglobin (Bld) [Mass/Vol] 13.0 g/dL 12.0-15.0 [facility] Blood lymphocytes/100 leukoc ytesOrdered By: Cristóbal Ford on 03-13-2023 Lymphocytes/100 WBC (Bld) 25.5 % 19-41 [facility] Blood monocytes/100 leukocyt esOrdered By: Cristóbal Ford on 03-13-2023 Monocytes/100 WBC (Bld) 6.5 % 0-10 [facility] Blood platelet mean volumeOr dered By: Cristóbal Ford on 03-13-2023 Platelet mean volume (Bld) [Entitic vol] 8.8 fL 6.2-12.0 [facility] Determination of erythrocyte mean corpuscular volume (MCV)Ordered By: Cristóbal Ford on 03-13-2023 MCV (RBC) [Entitic vol] 99.8 fL 81-99 [facility] Hematocrit Auto (Bld) [Volum e fraction]Ordered By: Cristóbal Ford on 03-13-2023 Hematocrit (Bld) [Volume fraction] 41.5 % 37-47 [facility] Laboratory - Chemistry and C hemistry - challengeOrdered By: Cristóbal Ford on 03-13-2023 ALP [Catalytic activity/Vol] 38 U/L 45-117 [facility] ALT [Catalytic activity/Vol] 40 U/L 13-56 [facility] CO2 [Moles/Vol] 28.0 mmol/L 21.0-32.0 [facility] Globulin (S) [Mass/Vol] 3.1 g/dL 2.2-4.2 [facility] Urea nitrogen/Creatinine [Mass ratio] 24.7 mg/mg 10-20 [facility] Laboratory - Hematology and Cell countsOrdered By: Cristóbal Ford on 03-13-2023 Erythrocyte distribution width (RBC) [Entitic vol] 51.8 fL 35.1-43.9 [facility] Erythrocyte distribution width (RBC) [Ratio] 14.2 % 11.6-14.6 [facility] Immature granulocytes/100 WBC (Bld) 0.500 % 0.0-0.9 [facility] Comment on above: IG% - Immature Granu locytes (promyelocytes, myelocytes and metamyelocytes) > 1% indicates that a LEFT SHIFT is Present. MCH (RBC) [Entitic mass] 31.3 pg 27.0-32.0 [facility] Nucleated RBC/100 WBC (Bld) [Ratio] 0 % 0-5 [facility] MCHC Auto (RBC) [Mass/Vol]Or dered By: Cristóbal Ford on 03-13-2023 MCHC (RBC) [Mass/Vol] 31.3 g/dL 32-[address] [facility] No Panel InformationOrdered By: Genna Zuniga on 03-13-2023 CA 15-3 Antigen 19.5 U/mL 0.0-25.0 [facility] Comment on above: [employer] El ectrochemiluminescence Immunoassay(ECLIA)Values obtained with different assay methods or kits cannotbe used interchangeably. Results cannot be interpreted asabsolute evidence of the presence or absence of malignantdisease.Performed at: [address], [place] [id number] Director: Ervin Hitchcock PhD, Phone: [phone] CA 27.29 21.4 U/mL 0.0-38.6 [facility] Comment on above: [employer] Immu nochemiluminometric Methodology (ICMA)Values obtained with different assay methods or kits cannotbe used interchangeably. Results cannot be interpreted asabsolute evidence of the presence or absence of malignantdisease. No Panel InformationOrdered By: Cristóbal Ford on 03-13-2023 Estimated Creatinine Clearance Calc 68.56 ml/min [facility] Estimated GFR (MDRD) Amer 95 mL/min >60 [facility] Comment on above: GFR Calc Estimated GFR (MDRD) Non-Af Amer 78 mL/min >60 [facility] Comment on above: Non- GFR Calc Platelets bldOrdered By: Jose G Ford on 03-13-2023 Platelets (Bld) [#/Vol] 178 10*3/uL 150-450 [facility] Serum or plasma albumin paul urement (mass/volume)Ordered By: Cristóbal Ford on 03-13-2023 Albumin [Mass/Vol] 3.5 g/dL 3.2-5.0 [facility] Serum or plasma albumin/glob ulin mass ratioOrdered By: Cristóbal Ford on 03-13-2023 Albumin/Globulin [Mass ratio] 1.1 {ratio} 0.9-2.4 [facility] Serum or plasma calcium paul urement (mass/volume)Ordered By: Cristóbal Ford on 03-13-2023 Calcium [Mass/Vol] 9.8 mg/dL 8.5-10.1 [facility] Serum or plasma creatinine m easurement (mass/volume)Ordered By: Cristóbal Ford on 03-13-2023 Creatinine [Mass/Vol] 0.81 mg/dL 0.55-1.[address] [facility] Comment on above: The validity of the calculated GFR & GFRAA in patients over 70 years has not been determined. Clinical correlation is essential. Serum or plasma urea nitroge n measurement (mass/volume)Ordered By: Cristóbal Ford on 03-13-2023 Urea nitrogen [Mass/Vol] 20 mg/dL 7-18 [facility] Thin prep Papanicolaou smear with manual screeningOrdered By: Cristóbal Ford on 03-13-2023 Thin prep Papanicolaou smear with manual screening 21 U/L 15-37 [facility] Thin prep Papanicolaou smear with manual screening 3 5-15 [facility] Absolute lymphocyte countOrd ered By: Genna Zuniga on 01-23-2023 Lymphocytes Auto (Unsp spec) [#/Vol] 2.31 10*3/uL 0.83-4.51 [facility] Basophil percentageOrdered B y: Genna Zuniga on 01-23-2023 Basophils/100 WBC (Bld) 0.2 % 0-1 [facility] Bilirubin [Mass/Vol] 0.30 mg/dL 0.20-1.00 [facility] Comment on above: For patients on eltr ombopag therapy, use of Dimension [place] TBIL is not recommended. Chloride [Moles/Vol] 108 mmol/L 98-107 [facility] Eosinophils/100 WBC (Bld) 0.7 % 0-5 [facility] Glucose [Mass/Vol] 114 mg/dL 74-106 [facility] Comment on above: Fasting Glucose resu lt from 100 to 125 mg/dL suggests IMPAIRED HOMEOSTASIS per A.D.A. criteria. LDH [Catalytic activity/Vol] 186 U/L 84-246 [facility] Neutrophils (Bld) [#/Vol] 5.7 10*3/uL 2.0-7.7 [facility] Neutrophils/100 WBC (Bld) 65.7 % 47-70 [facility] Potassium [Moles/Vol] 3.5 mmol/L 3.5-5.[address] [facility] Protein [Mass/Vol] 6.9 g/dL 6.4-8.2 [facility] Sodium [Moles/Vol] 141 mmol/L 136-145 [facility] WBC (Bld) [#/Vol] 8.6 10*3/uL 4.4-11.0 [facility] Blood erythrocytes count (nu mber/volume)Ordered By: Genna Zuniga on 01-23-2023 RBC (Bld) [#/Vol] 4.06 10*6/uL 4.2-5.[address] [facility] Blood hemoglobin measurement (mass/volume)Ordered By: Genna Zuniga on 01-23-2023 Hemoglobin (Bld) [Mass/Vol] 12.9 g/dL 12.0-15.0 [facility] Blood lymphocytes/100 leukoc ytesOrdered By: Genna Aleksander on 01-23-2023 Lymphocytes/100 WBC (Bld) 26.8 % 19-41 [facility] Blood monocytes/100 leukocyt esOrdered By: [facility] Aleksander on 01-23-2023 Monocytes/100 WBC (Bld) 6.0 % 0-10 [facility] Blood platelet mean volumeOr dered By: Genna Aleksander on 01-23-2023 Platelet mean volume (Bld) [Entitic vol] 8.9 fL 6.2-12.0 [facility] Determination of erythrocyte mean corpuscular volume (MCV)Ordered By: [facility] Aleksander on 01-23-2023 MCV (RBC) [Entitic vol] 100.7 fL 81-99 [facility] Hematocrit Auto (Bld) [Volum e fraction]Ordered By: Genna Aleksander on 01-23-2023 Hematocrit (Bld) [Volume fraction] 40.9 % 37-47 [facility] Laboratory - Chemistry and C hemistry - challengeOrdered By: [facility] on 01-23-2023 ALP [Catalytic activity/Vol] 41 U/L 45-117 [facility] ALT [Catalytic activity/Vol] 30 U/L 13-56 [facility] CO2 [Moles/Vol] 28.0 mmol/L 21.0-32.0 [facility] Globulin (S) [Mass/Vol] 3.4 g/dL 2.2-4.2 [facility] Urea nitrogen/Creatinine [Mass ratio] 20.9 mg/mg 10-20 [facility] Laboratory - Hematology and Cell countsOrdered By: Genna Aleksander on 01-23-2023 Erythrocyte distribution width (RBC) [Entitic vol] 48.5 fL 35.1-43.9 [facility] Erythrocyte distribution width (RBC) [Ratio] 13.1 % 11.6-14.6 [facility] Immature granulocytes/100 WBC (Bld) 0.600 % 0.0-0.9 [facility] Comment on above: IG% - Immature Granu locytes (promyelocytes, myelocytes and metamyelocytes) > 1% indicates that a LEFT SHIFT is Present. MCH (RBC) [Entitic mass] 31.8 pg 27.0-32.0 [facility] Nucleated RBC/100 WBC (Bld) [Ratio] 0 % 0-5 [facility] MCHC Auto (RBC) [Mass/Vol]Or dered By: Genna Zuniga on 01-23-2023 MCHC (RBC) [Mass/Vol] 31.5 g/dL 32-[address] [facility] No Panel InformationOrdered By: Genna Zuniga on 01-23-2023 CA 15-3 Antigen 19.6 U/mL 0.0-25.0 [facility] Comment on above: [employer] El ectrochemiluminescence Immunoassay(ECLIA)Values obtained with different assay methods or kits cannotbe used interchangeably. Results cannot be interpreted asabsolute evidence of the presence or absence of malignantdisease.Performed at: [email or web address] [place] [id number] Director: Ervin Hitchcock PhD, Phone: [phone] [place] 27.29 21.8 U/mL 0.0-38.6 [facility] Comment on above: Siemens Agile Sciencesaur Immu nochemiluminometric Methodology (ICMA)Values obtained with different assay methods or kits cannotbe used interchangeably. Results cannot be interpreted asabsolute evidence of the presence or absence of malignantdisease. Estimated Creatinine Clearance Calc 65.33 ml/min [facility] Estimated GFR (MDRD) Amer 88 mL/min >60 [facility] Comment on above: GFR Calc Estimated GFR (MDRD) Non-Af Amer 73 mL/min >60 [facility] Comment on above: Non- GFR Calc Platelets bldOrdered By: David Zuniga on 01-23-2023 Platelets (Bld) [#/Vol] 182 10*3/uL 150-450 [facility] Serum or plasma albumin paul urement (mass/volume)Ordered By: Genna Zuniga on 01-23-2023 Albumin [Mass/Vol] 3.5 g/dL 3.2-5.0 [facility] Serum or plasma albumin/glob ulin mass ratioOrdered By: Genna Zuniga on 01-23-2023 Albumin/Globulin [Mass ratio] 1.0 {ratio} 0.9-2.4 [facility] Serum or plasma calcium paul urement (mass/volume)Ordered By: Genna Zuniga on 01-23-2023 Calcium [Mass/Vol] 9.6 mg/dL 8.5-10.1 [facility] Serum or plasma creatinine m easurement (mass/volume)Ordered By: Genna Zuniga on 01-23-2023 Creatinine [Mass/Vol] 0.86 mg/dL 0.55-1.[address] [facility] Comment on above: The validity of the calculated GFR & GFRAA in patients over 70 years has not been determined. Clinical correlation is essential. Serum or plasma urea nitroge n measurement (mass/volume)Ordered By: Genna Zuniga on 01-23-2023 Urea nitrogen [Mass/Vol] 18 mg/dL 7-18 [facility] Thin prep Papanicolaou smear with manual screeningOrdered By: Genna Zuniga on 01-23-2023 Thin prep Papanicolaou smear with manual screening 20 U/L 15- [facility] Thin prep Papanicolaou smear with manual screening 5 5-15 [facility] Absolute lymphocyte countOrd ered By: Cristóbal Ford on 11-21-2022 Lymphocytes Auto (Unsp spec) [#/Vol] 1.96 10*3/uL 0.83-4.51 [facility] Basophil percentageOrdered B y: Cristóbal Ford on 11-21-2022 Basophils/100 WBC (Bld) 0.3 % 0-1 [facility] Bilirubin [Mass/Vol] 0.30 mg/dL 0.20-1.00 [facility] Comment on above: For patients on eltr ombopag therapy, use of [place] TBIL is not recommended. Chloride [Moles/Vol] 110 mmol/L 98-107 [facility] Eosinophils/100 WBC (Bld) 0.4 % 0-5 [facility] Glucose [Mass/Vol] 109 mg/dL 74-106 [facility] Comment on above: Fasting Glucose resu lt from 100 to 125 mg/dL suggests IMPAIRED HOMEOSTASIS per A.D.A. criteria. LDH [Catalytic activity/Vol] 227 U/L 84-246 [facility] Neutrophils (Bld) [#/Vol] 6.6 10*3/uL 2.0-7.7 [facility] Neutrophils/100 WBC (Bld) 71.1 % 47-70 [facility] Potassium [Moles/Vol] 3.7 mmol/L 3.5-5.[address] [facility] Protein [Mass/Vol] 6.5 g/dL 6.4-8.2 [facility] Sodium [Moles/Vol] 142 mmol/L 136-145 [facility] WBC (Bld) [#/Vol] 9.2 10*3/uL 4.4-11.0 [facility] Blood erythrocytes count (nu mber/volume)Ordered By: Cristóbal Ford on 11-21-2022 RBC (Bld) [#/Vol] 3.57 10*6/uL 4.2-5.[address] [facility] Blood hemoglobin measurement (mass/volume)Ordered By: Cristóbal Ford on 11-21-2022 Hemoglobin (Bld) [Mass/Vol] 12.0 g/dL 12.0-15.0 [facility] Blood lymphocytes/100 leukoc ytesOrdered By: Cristóbal Ford on 11-21-2022 Lymphocytes/100 WBC (Bld) 21.3 % 19-41 [facility] Blood monocytes/100 leukocyt esOrdered By: Cristóbal Ford on 11-21-2022 Monocytes/100 WBC (Bld) 6.6 % 0-10 [facility] Blood platelet mean volumeOr dered By: Cristóbal Ford on 11-21-2022 Platelet mean volume (Bld) [Entitic vol] 8.9 fL 6.2-12.0 [facility] Determination of erythrocyte mean corpuscular volume (MCV)Ordered By: Cristóbal Ford on 11-21-2022 MCV (RBC) [Entitic vol] 107.3 fL 81-99 [facility] Hematocrit Auto (Bld) [Volum e fraction]Ordered By: Cristóbal Ford on 11-21-2022 Hematocrit (Bld) [Volume fraction] 38.3 % 37-47 [facility] Laboratory - Chemistry and C hemistry - challengeOrdered By: Cristóbal Waldron on 11-21-2022 ALP [Catalytic activity/Vol] 37 U/L 45-117 [facility] ALT [Catalytic activity/Vol] 19 U/L 13-56 [facility] CO2 [Moles/Vol] 26.0 mmol/L 21.0-32.0 [facility] Globulin (S) [Mass/Vol] 3.2 g/dL 2.2-4.2 [facility] Urea nitrogen/Creatinine [Mass ratio] 20.2 mg/mg 10-20 [facility] Laboratory - Hematology and Cell countsOrdered By: Cristóbal Vanita on 11-21-2022 Erythrocyte distribution width (RBC) [Entitic vol] 58.4 fL 35.1-43.9 [facility] Erythrocyte distribution width (RBC) [Ratio] 14.6 % 11.6-14.6 [facility] Immature granulocytes/100 WBC (Bld) 0.300 % 0.0-0.9 [facility] Comment on above: IG% - Immature Granu locytes (promyelocytes, myelocytes and metamyelocytes) > 1% indicates that a LEFT SHIFT is Present. MCH (RBC) [Entitic mass] 33.6 pg 27.0-32.0 [facility] Nucleated RBC/100 WBC (Bld) [Ratio] 0 % 0-5 [facility] MCHC Auto (RBC) [Mass/Vol]Or dered By: Cristóbal Ford on 11-21-2022 MCHC (RBC) [Mass/Vol] 31.3 g/dL 32-[address] [facility] No Panel InformationOrdered By: Cristóbal Ford on 11-21-2022 CA 15-3 Antigen 27.0 U/mL 0.0-25.0 [facility] Comment on above: [employer] El ectrochemiluminescence Immunoassay(ECLIA)Values obtained with different assay methods or kits cannotbe used interchangeably. Results cannot be interpreted asabsolute evidence of the presence or absence of malignantdisease.Performed at: [facility] [id number] Director: Ervin Hitchcock PhD, Phone: [phone] [place] 27.29 29.7 U/mL 0.0-38.6 [facility] Comment on above: [employer] Immu nochemiluminometric Methodology (ICMA)Values obtained with different assay methods or kits cannotbe used interchangeably. Results cannot be interpreted asabsolute evidence of the presence or absence of malignantdisease. Estimated Creatinine Clearance Calc 66.88 ml/min [facility] Estimated GFR (MDRD) Amer 91 mL/min >60 [facility] Comment on above: GFR Calc Estimated GFR (MDRD) Non-Af Amer 75 mL/min >60 [facility] Comment on above: Non- GFR Calc Platelets bldOrdered By: Jose G Ford on 11-21-2022 Platelets (Bld) [#/Vol] 211 10*3/uL 150-450 [facility] Serum or plasma albumin paul urement (mass/volume)Ordered By: Cristóbal Ford on 11-21-2022 Albumin [Mass/Vol] 3.3 g/dL 3.2-5.0 [facility] Serum or plasma albumin/glob ulin mass ratioOrdered By: Cristóbal Ford on 11-21-2022 Albumin/Globulin [Mass ratio] 1.0 {ratio} 0.9-2.4 [facility] Serum or plasma calcium paul urement (mass/volume)Ordered By: Cristóbal Frod on 11-21-2022 Calcium [Mass/Vol] 9.6 mg/dL 8.5-10.1 [facility] Serum or plasma creatinine m easurement (mass/volume)Ordered By: Cristóbal Ford on 11-21-2022 Creatinine [Mass/Vol] 0.84 mg/dL 0.55-1.[address] [facility] Comment on above: The validity of the calculated GFR & GFRAA in patients over 70 years has not been determined. Clinical correlation is essential. Serum or plasma urea nitroge n measurement (mass/volume)Ordered By: Cristóbal Ford on 11-21-2022 Urea nitrogen [Mass/Vol] 17 mg/dL 7-18 [facility] Thin prep Papanicolaou smear with manual screeningOrdered By: Cristóbal Ford on 11-21-2022 Thin prep Papanicolaou smear with manual screening 14 U/L 15-37 [facility] Thin prep Papanicolaou smear with manual screening 6 5-15 [facility] Absolute lymphocyte countOrd ered By: Dr. Ford on 10-31-2022 Lymphocytes Auto (Unsp spec) [#/Vol] 1.80 10*3/uL 0.83-4.51 [facility] Basophil percentageOrdered B y: Dr. Ford on 10-31-2022 Basophil percentage 2.4 mg/dL 2.5-4.[address] [facility] Basophils/100 WBC (Bld) 0.1 % 0-1 [facility] Bilirubin [Mass/Vol] 0.30 mg/dL 0.20-1.00 [facility] Comment on above: For patients on eltr ombopag therapy, use of Dim[place] TBIL is not recommended. Chloride [Moles/Vol] 110 mmol/L 98-107 [facility] Eosinophils/100 WBC (Bld) 0.0 % 0-5 [facility] Glucose [Mass/Vol] 101 mg/dL 74-106 [facility] Comment on above: Fasting Glucose resu lt from 100 to 125 mg/dL suggests IMPAIRED HOMEOSTASIS per A.D.A. criteria. LDH [Catalytic activity/Vol] 264 U/L 84-246 [facility] Neutrophils (Bld) [#/Vol] 4.4 10*3/uL 2.0-7.7 [facility] Neutrophils/100 WBC (Bld) 61.9 % 47-70 [facility] Potassium [Moles/Vol] 3.8 mmol/L 3.5-5.[address] [facility] Protein [Mass/Vol] 5.9 g/dL 6.4-8.2 [facility] Sodium [Moles/Vol] 142 mmol/L 136-145 [facility] WBC (Bld) [#/Vol] 7.2 10*3/uL 4.4-11.0 [facility] Blood erythrocytes count (nu mber/volume)Ordered By: Dr. Ford on 10-31-2022 RBC (Bld) [#/Vol] 3.24 10*6/uL 4.2-5.[address] [facility] Blood hemoglobin measurement (mass/volume)Ordered By: Dr. Ford on 10-31-2022 Hemoglobin (Bld) [Mass/Vol] 11.0 g/dL 12.0-15.0 [facility] Blood lymphocytes/100 leukoc ytesOrdered By: Dr. Ford on 10-31-2022 Lymphocytes/100 WBC (Bld) 25.1 % 19-41 [facility] Blood monocytes/100 leukocyt esOrdered By: Dr. Ford on 10-31-2022 Monocytes/100 WBC (Bld) 12.5 % 0-10 [facility] Blood platelet mean volumeOr dered By: Dr. Ford on 10-31-2022 Platelet mean volume (Bld) [Entitic vol] 9.0 fL 6.2-12.0 [facility] Determination of erythrocyte mean corpuscular volume (MCV)Ordered By: Dr. Ford on 10-31-2022 MCV (RBC) [Entitic vol] 105.9 fL 81-99 [facility] Hematocrit Auto (Bld) [Volum e fraction]Ordered By: Dr. Ford on 10-31-2022 Hematocrit (Bld) [Volume fraction] 34.3 % 37-47 [facility] Laboratory - Chemistry and C hemistry - challengeOrdered By: Dr. Ford on 10-31-2022 ALP [Catalytic activity/Vol] 36 U/L 45-117 [facility] ALT [Catalytic activity/Vol] 22 U/L 13-56 [facility] CO2 [Moles/Vol] 27.0 mmol/L 21.0-32.0 [facility] Globulin (S) [Mass/Vol] 2.8 g/dL 2.2-4.2 [facility] Urea nitrogen/Creatinine [Mass ratio] 23.3 mg/mg 10-20 [facility] Laboratory - Hematology and Cell countsOrdered By: Dr. Ford on 10-31-2022 Erythrocyte distribution width (RBC) [Entitic vol] 64.0 fL 35.1-43.9 [facility] Erythrocyte distribution width (RBC) [Ratio] 16.4 % 11.6-14.6 [facility] Immature granulocytes/100 WBC (Bld) 0.400 % 0.0-0.9 [facility] Comment on above: IG% - Immature Granu locytes (promyelocytes, myelocytes and metamyelocytes) > 1% indicates that a LEFT SHIFT is Present. MCH (RBC) [Entitic mass] 34.0 pg 27.0-32.0 [facility] Nucleated RBC/100 WBC (Bld) [Ratio] 0 % 0-5 [facility] MCHC Auto (RBC) [Mass/Vol]Or dered By: Dr. Ford on 10-31-2022 MCHC (RBC) [Mass/Vol] 32.1 g/dL 32-[address] [facility] No Panel InformationOrdered By: Dr. Ford on 10-31-2022 Miscellaneous Test Comment MAILED SPECIMEN [facility] Estimated Creatinine Clearance Calc 72.96 ml/min [facility] Estimated GFR (MDRD) Amer 100 mL/min >60 [facility] Comment on above: GFR Calc Estimated GFR (MDRD) Non-Af Amer 83 mL/min >60 [facility] Comment on above: Non- GFR Calc Platelets bldOrdered By: Dr. Ford on 10-31-2022 Platelets (Bld) [#/Vol] 134 10*3/uL 150-450 [facility] PotassiumOrdered By: Cristóbal Ford on 10-31-2022 Potassium [Mass/Vol] 2.4 mg/dL Low 2.5-4.9 [facility] Serum or plasma albumin paul urement (mass/volume)Ordered By: Dr. Ford on 10-31-2022 Albumin [Mass/Vol] 3.1 g/dL 3.2-5.0 [facility] Serum or plasma albumin/glob ulin mass ratioOrdered By: Dr. Ford on 10-31-2022 Albumin/Globulin [Mass ratio] 1.1 {ratio} 0.9-2.4 [facility] Serum or plasma calcium paul urement (mass/volume)Ordered By: Dr. Ford on 10-31-2022 Calcium [Mass/Vol] 9.0 mg/dL 8.5-10.1 [facility] Serum or plasma creatinine m easurement (mass/volume)Ordered By: Dr. Ford on 10-31-2022 Creatinine [Mass/Vol] 0.77 mg/dL 0.55-1.[address] [facility] Comment on above: The validity of the calculated GFR & GFRAA in patients over 70 years has not been determined. Clinical correlation is essential. Serum or plasma urea nitroge n measurement (mass/volume)Ordered By: Dr. Ford on 10-31-2022 Urea nitrogen [Mass/Vol] 18 mg/dL 7-18 [facility] Thin prep Papanicolaou smear with manual screeningOrdered By: Dr. Ford on 10-31-2022 Thin prep Papanicolaou smear with manual screening 20 U/L 15-37 [facility] Thin prep Papanicolaou smear with manual screening 5 5-15 [facility] Trichomonas screening testOr dered By: Cristóbal Ford on 10-31-2022 Phosphorus Level 2.4 mg/dL Low 2.5-4.9 [facility] Laboratory - Chemistry and C hemistry - challengeOrdered By: Dr. Ford on 10-10-2022 Magnesium [Mass/Vol] 2.0 mg/dL 1.6-2.6 [facility] SURG PATH REQUESTon 10-05-19 Case Report Normal [facility] Comment on above: Result Comment: Surg ical Pathology Report Case: [id number] Authorizing Provider: Josh Mancuso MD Collected: 10/04/2022 11:36 AM [facility]ing Location[facility] Received: 10/04/2022 11:36 AM [place] Pathologist: TAWNYA Centeno Specimen: SURG PATH, Left Breast at 2 o'clock, Core Biopsy; Left Breast at 1 o'clock, Core Biopsy Performed By: #### S URGP #### [facility] (DEFAULT) [address] [place] [address] Clinical History Normal [facility] Comment on above: Result Comment: Requ est received from Josh Mancuso MD for second opinion consultation on slides received: Perform Biomarker(s) only on outside case: 1. Facility name: [facility] 2. Accession # Unknown 3. Specimen Site: Left Breast 4. Reason for performing biomarker: Need pathology re-review and repeat ER, AL and HER2 status as a second opinion. Patient's management at [facility] is questionable. EMAIL VIANCA TRAYLOR THAT THE [...] IHC and HER2 FISH studies. 3. A event marketing representative tissue block or 8 unstained slides cut at 4um from the specified surgical pathology specimen . Preoperative Diagnosis: Left breast lesion. Performed By: #### S URGP #### [facility] (DEFAULT) [address] [place] [address] Gross Description Normal [facility] Comment on above: Result Comment: The following material(s) are received from [facility], [address] [place] [address], with an identifying surgical pathology report that includes a copy of as well as results of PD-L1 (KEYTRUDA) IMMUNOHISTOCHEMICAL Analysis and [facility]UM[facility] NGS REPORT from [employer] and a copy of the patient's Immunohistochemistry / In Situ Hybridization (BRANDY) Report: 6 H&E slide(s) and 22 non-H&E slide(s) which includes the uv ER x2, uv AL x2, uv Her2, uv Ki-67 IHC slides, labeled [id number]. Outside materials are returned in sixty (60) days under separate cover with our number recorded on them. Grosser for this case was: Celia Sandoval For Immediate Release to [facility]'s [facility] Yes Performed By: #### S URGP #### [facility] (DEFAULT) [address] [place] [id number] Microscopic Description A microscopic examination was performed. Normal [facility] Comment on above: Performed By: #### S URGP #### [facility] (DEFAULT) [address] [address] Pathologic Diagnosis Normal [facility] Comment on above: Result Comment: Outs justo Slides: [id number] (06/06/2022) A. Left Breast at 2 o'clock, [...] Performed By: #### S URGP #### [facility] ([facility]) [address] [place] [address] No Panel InformationOrdered By: Genna Zuniga on 08-29-2022 CA 15-3 Antigen 113.0 U/mL 0.0-25.0 [facility] Comment on above: [employer] El ectrochemiluminescence Immunoassay(ECLIA)Values obtained with different assay methods or kits cannotbe used interchangeably. Results cannot be interpreted asabsolute evidence of the presence or absence of malignantdisease.Performed at: [facility] [id number] [place], [place] [id number] Director: Ervin Hitchcock PhD, Phone: [phone] [place] 27.29 131.6 U/mL 0.0-38.6 [facility] Comment on above: [employer] Ag[employer]aur Immu nochemiluminometric Methodology (ICMA)Values obtained with different assay methods or kits cannotbe used interchangeably. Results cannot be interpreted asabsolute evidence of the presence or absence of malignantdisease. Serum or plasma carcinoembry onic antigen measurement (mass/volume)Ordered By: Genna Zuniga on 08-29-2022 Carcinoembryonic Ag [Mass/Vol] 4.2 ng/mL 0.0-4.7 [facility] Comment on above: Nonsmokers <3.9 Smok ers <5.6[employer] Electrochemiluminescence Immunoassay(ECLIA)Values obtained with different assay methods or kitscannot be used interchangeably. Results cannot beinterpreted as absolute evidence of the presence orabsence of malignant disease. Absolute lymphocyte countOrd ered By: Genna Zuniga on 08-22-2022 Lymphocytes Auto (Unsp spec) [#/Vol] 1.99 10*3/uL 0.83-4.51 [facility] Basophil percentageOrdered B y: Genna Zuniga on 08-22-2022 Basophils/100 WBC (Bld) 0.3 % 0-1 [facility] Chloride [Moles/Vol] 109 mmol/L 98-107 [facility] Eosinophils/100 WBC (Bld) 0.0 % 0-5 [facility] Glucose [Mass/Vol] 122 mg/dL 74-106 [facility] Comment on above: Fasting Glucose resu lt from 100 to 125 mg/dL suggests IMPAIRED HOMEOSTASIS per A.D.A. criteria. Neutrophils (Bld) [#/Vol] 6.6 10*3/uL 2.0-7.7 [facility] Neutrophils/100 WBC (Bld) 70.7 % 47-70 [facility] Potassium [Moles/Vol] 4.0 mmol/L 3.5-5.[address] [facility] Comment on above: Moderate Hemolysis, Result may be falsely increased. Sodium [Moles/Vol] 142 mmol/L 136-145 [facility] WBC (Bld) [#/Vol] 9.3 10*3/uL 4.4-11.0 [facility] Blood erythrocytes count (nu mber/volume)Ordered By: Genna Zuniga on 08-22-2022 RBC (Bld) [#/Vol] 3.94 10*6/uL 4.2-5.[address] [facility] Blood hemoglobin measurement (mass/volume)Ordered By: Genna Zuniga on 08-22-2022 Hemoglobin (Bld) [Mass/Vol] 12.9 g/dL 12.0-15.0 [facility] Blood lymphocytes/100 leukoc ytesOrdered By: Genna Zuniga on 08-22-2022 Lymphocytes/100 WBC (Bld) 21.3 % 19-41 [facility] Blood monocytes/100 leukocyt esOrdered By: Genna Zuniga on 08-22-2022 Monocytes/100 WBC (Bld) 6.9 % 0-10 [facility] Blood platelet mean volumeOr dered By: Genna Zuniga on 08-22-2022 Platelet mean volume (Bld) [Entitic vol] 9.3 fL 6.2-12.0 [facility] Determination of erythrocyte mean corpuscular volume (MCV)Ordered By: Genna Zuniga on 08-22-2022 MCV (RBC) [Entitic vol] 99.0 fL 81-99 [facility] Hematocrit Auto (Bld) [Volum e fraction]Ordered By: Genna Aleksander on 08-22-2022 Hematocrit (Bld) [Volume fraction] 39.0 % 37-47 [facility] Laboratory - Chemistry and C hemistry - challengeOrdered By: [facility]22 CO2 [Moles/Vol] 26.0 mmol/L 21.0-32.0 [facility] Urea nitrogen/Creatinine [Mass ratio] 20.0 mg/mg 10-20 [facility] Laboratory - Hematology and Cell countsOrdered By: Genna Aleksander on 08-22-2022 Erythrocyte distribution width (RBC) [Entitic vol] 56.1 fL 35.1-43.9 [facility] Erythrocyte distribution width (RBC) [Ratio] 15.6 % 11.6-14.6 [facility] Immature granulocytes/100 WBC (Bld) 0.800 % 0.0-0.9 [facility] Comment on above: IG% - Immature Granu locytes (promyelocytes, myelocytes and metamyelocytes) > 1% indicates that a LEFT SHIFT is Present. MCH (RBC) [Entitic mass] 32.7 pg 27.0-32.0 [facility] Nucleated RBC/100 WBC (Bld) [Ratio] 0 % 0-5 [facility] MCHC Auto (RBC) [Mass/Vol]Or dered By: Genna Zuniga on 08-22-2022 MCHC (RBC) [Mass/Vol] 33.1 g/dL 32-[address] [facility] No Panel InformationOrdered By: Genna Zuniga on 08-22-2022 Estimated Creatinine Clearance Calc 77.21 ml/min [facility] Estimated GFR (MDRD) Amer 90 mL/min >60 [facility] Comment on above: GFR Calc Estimated GFR (MDRD) Non-Af Amer 74 mL/min >60 [facility] Comment on above: Non- GFR Calc Platelets bldOrdered By: David Zuniga on 08-22-2022 Platelets (Bld) [#/Vol] 151 10*3/uL 150-450 [facility] Serum or plasma calcium paul urement (mass/volume)Ordered By: Genna Zuniga on 08-22-2022 Calcium [Mass/Vol] 9.6 mg/dL 8.5-10.1 [facility] Serum or plasma creatinine m easurement (mass/volume)Ordered By: Genna Zuniga on 08-22-2022 Creatinine [Mass/Vol] 0.85 mg/dL 0.55-1.[address] [facility] Comment on above: The validity of the calculated GFR & GFRAA in patients over 70 years has not been determined. Clinical correlation is essential. Serum or plasma urea nitroge n measurement (mass/volume)Ordered By: Genna Zuniga on 08-22-2022 Urea nitrogen [Mass/Vol] 17 mg/dL 7-18 [facility] Thin prep Papanicolaou smear with manual screeningOrdered By: Genna Zuniga on 08-22-2022 Thin prep Papanicolaou smear with manual screening 7 5-15 [facility] Absolute lymphocyte countOrd ered By: Dr. Ford on 08-08-2022 Lymphocytes Auto (Unsp spec) [#/Vol] 1.49 10*3/uL 0.83-4.51 [facility] Basophil percentageOrdered B y: Dr. Ford on 08-08-2022 Basophils/100 WBC (Bld) 0.3 % 0-1 [facility] Bilirubin [Mass/Vol] 0.40 mg/dL 0.20-1.00 [facility] Comment on above: For patients on eltr ombopag therapy, use of Dim[place] TBIL is not recommended. Chloride [Moles/Vol] 109 mmol/L 98-107 [facility] Eosinophils/100 WBC (Bld) 0.0 % 0-5 [facility] Glucose [Mass/Vol] 139 mg/dL 74-106 [facility] Comment on above: Fasting Glucose resu lt greater than or equal to 126 mg/dL suggests DIABETES MELLITUS per A.D.A. criteria. LDH [Catalytic activity/Vol] 239 U/L 84-246 [facility] Neutrophils (Bld) [#/Vol] 4.2 10*3/uL 2.0-7.7 [facility] Neutrophils/100 WBC (Bld) 67.0 % 47-70 [facility] Potassium [Moles/Vol] 4.1 mmol/L 3.5-5.[address] [facility] Protein [Mass/Vol] 6.5 g/dL 6.4-8.2 [facility] Sodium [Moles/Vol] 142 mmol/L 136-145 [facility] WBC (Bld) [#/Vol] 6.3 10*3/uL 4.4-11.0 [facility] Blood erythrocytes count (nu mber/volume)Ordered By: Dr. Ford on 08-08-2022 RBC (Bld) [#/Vol] 3.96 10*6/uL 4.2-5.[address] [facility] Blood hemoglobin measurement (mass/volume)Ordered By: Dr. Ford on 08-08-2022 Hemoglobin (Bld) [Mass/Vol] 12.8 g/dL 12.0-15.0 [facility] Blood lymphocytes/100 leukoc ytesOrdered By: Dr. Ford on 08-08-2022 Lymphocytes/100 WBC (Bld) 23.7 % 19-41 [facility] Blood monocytes/100 leukocyt esOrdered By: Dr. Ford on 08-08-2022 Monocytes/100 WBC (Bld) 8.7 % 0-10 [facility] Blood platelet mean volumeOr dered By: Dr. Ford on 08-08-2022 Platelet mean volume (Bld) [Entitic vol] 8.9 fL 6.2-12.0 [facility] Determination of erythrocyte mean corpuscular volume (MCV)Ordered By: Dr. Ford on 08-08-2022 MCV (RBC) [Entitic vol] 96.7 fL 81-99 [facility] Hematocrit Auto (Bld) [Volum e fraction]Ordered By: Dr. Ford on 08-08-2022 Hematocrit (Bld) [Volume fraction] 38.3 % 37-47 [facility] Laboratory - Chemistry and C hemistry - challengeOrdered By: Dr. Ford on 08-08-2022 ALP [Catalytic activity/Vol] 55 U/L 45-117 [facility] ALT [Catalytic activity/Vol] 33 U/L 13-56 [facility] CO2 [Moles/Vol] 27.0 mmol/L 21.0-32.0 [facility] Globulin (S) [Mass/Vol] 3.0 g/dL 2.2-4.2 [facility] Magnesium [Mass/Vol] 2.0 mg/dL 1.6-2.6 [facility] Urea nitrogen/Creatinine [Mass ratio] 19.5 mg/mg 10-20 [facility] Laboratory - Hematology and Cell countsOrdered By: Dr. Ford on 08-08-2022 Erythrocyte distribution width (RBC) [Entitic vol] 52.7 fL 35.1-43.9 [facility] Erythrocyte distribution width (RBC) [Ratio] 14.8 % 11.6-14.6 [facility] Immature granulocytes/100 WBC (Bld) 0.300 % 0.0-0.9 [facility] Comment on above: IG% - Immature Granu locytes (promyelocytes, myelocytes and metamyelocytes) > 1% indicates that a LEFT SHIFT is Present. MCH (RBC) [Entitic mass] 32.3 pg 27.0-32.0 [facility] Nucleated RBC/100 WBC (Bld) [Ratio] 0 % 0-5 [facility] MCHC Auto (RBC) [Mass/Vol]Or dered By: Dr. Ford on 08-08-2022 MCHC (RBC) [Mass/Vol] 33.4 g/dL 32-[address] [facility] No Panel InformationOrdered By: Dr. Ford on 08-08-2022 CA 15-3 Antigen 141.0 U/mL 0.0-25.0 [facility] Comment on above: [employer] El ectrochemiluminescence Immunoassay(ECLIA)Values obtained with different assay methods or kits cannotbe used interchangeably. Results cannot be interpreted asabsolute evidence of the presence or absence of malignantdisease.Performed at: [facility] [id number] Director: Ervin Hitchcock PhD, Phone: [phone] [place] 27.29 187.2 U/mL 0.0-38.6 [facility] Comment on above: [employer] Immu nochemiluminometric Methodology (ICMA)Values obtained with different assay methods or kits cannotbe used interchangeably. Results cannot be interpreted asabsolute evidence of the presence or absence of malignantdisease. Estimated Creatinine Clearance Calc 67.66 ml/min [facility] Estimated GFR (MDRD) Amer 77 mL/min >60 [facility] Comment on above: GFR Calc Estimated GFR (MDRD) Non-Af Amer 63 mL/min >60 [facility] Comment on above: Non- GFR Calc Miscellaneous Test Comment MAILED SPECIMEN [facility] Platelets bldOrdered By: Dr. Ford on 08-08-2022 Platelets (Bld) [#/Vol] 189 10*3/uL 150-450 [facility] Serum or plasma albumin paul urement (mass/volume)Ordered By: Dr. Ford on 08-08-2022 Albumin [Mass/Vol] 3.5 g/dL 3.2-5.0 [facility] Serum or plasma albumin/glob ulin mass ratioOrdered By: Dr. Ford on 08-08-2022 Albumin/Globulin [Mass ratio] 1.2 {ratio} 0.9-2.4 [facility] Serum or plasma calcium paul urement (mass/volume)Ordered By: Dr. Ford on 08-08-2022 Calcium [Mass/Vol] 9.6 mg/dL 8.5-10.1 [facility] Serum or plasma carcinoembry onic antigen measurement (mass/volume)Ordered By: Dr. Ford on 08-08-2022 Carcinoembryonic Ag [Mass/Vol] 8.6 ng/mL 0.0-4.7 [facility] Comment on above: Nonsmokers <3.9 Smok ers <5.6[employer] Electrochemiluminescence Immunoassay(ECLIA)Values obtained with different assay methods or kitscannot be used interchangeably. Results cannot beinterpreted as absolute evidence of the presence orabsence of malignant disease. Serum or plasma creatinine m easurement (mass/volume)Ordered By: Dr. Ford on 08-08-2022 Creatinine [Mass/Vol] 0.97 mg/dL 0.55-1.[address] [facility] Comment on above: The validity of the calculated GFR & GFRAA in patients over 70 years has not been determined. Clinical correlation is essential. Serum or plasma urea nitroge n measurement (mass/volume)Ordered By: Dr. Ford on 08-08-2022 Urea nitrogen [Mass/Vol] 19 mg/dL 7-18 [facility] Thin prep Papanicolaou smear with manual screeningOrdered By: Dr. Ford on 08-08-2022 Thin prep Papanicolaou smear with manual screening 24 U/L 15-37 [facility] Thin prep Papanicolaou smear with manual screening 6 5-15 [facility] Absolute lymphocyte countOrd ered By: Dr. Ford on 08-01-2022 Lymphocytes Auto (Unsp spec) [#/Vol] 1.72 10*3/uL 0.83-4.51 [facility] Basophil percentageOrdered B y: Dr. Ford on 08-01-2022 Basophils/100 WBC (Bld) 0.5 % 0-1 [facility] Bilirubin [Mass/Vol] 0.30 mg/dL 0.20-1.00 [facility] Comment on above: For patients on eltr ombopag therapy, use of Dim[place] TBIL is not recommended. Chloride [Moles/Vol] 107 mmol/L 98-107 [facility] Eosinophils/100 WBC (Bld) 0.0 % 0-5 [facility] Glucose [Mass/Vol] 117 mg/dL 74-106 [facility] Comment on above: Fasting Glucose resu lt from 100 to 125 mg/dL suggests IMPAIRED HOMEOSTASIS per A.D.A. criteria. Neutrophils (Bld) [#/Vol] 6.1 10*3/uL 2.0-7.7 [facility] Neutrophils/100 WBC (Bld) 71.1 % 47-70 [facility] Potassium [Moles/Vol] 4.1 mmol/L 3.5-5.[address] [facility] Comment on above: Slight Hemolysis, Re sult may be falsely increased. Protein [Mass/Vol] 6.7 g/dL 6.4-8.2 [facility] Sodium [Moles/Vol] 140 mmol/L 136-145 [facility] WBC (Bld) [#/Vol] 8.6 10*3/uL 4.4-11.0 [facility] Blood erythrocytes count (nu mber/volume)Ordered By: Dr. Ford on 08-01-2022 RBC (Bld) [#/Vol] 4.10 10*6/uL 4.2-5.[address] [facility] Blood hemoglobin measurement (mass/volume)Ordered By: Dr. Ford on 08-01-2022 Hemoglobin (Bld) [Mass/Vol] 12.8 g/dL 12.0-15.0 [facility] Blood lymphocytes/100 leukoc ytesOrdered By: Dr. Ford on 08-01-2022 Lymphocytes/100 WBC (Bld) 20.0 % 19-41 [facility] Blood monocytes/100 leukocyt esOrdered By: Dr. Ford on 08-01-2022 Monocytes/100 WBC (Bld) 8.1 % 0-10 [facility] Blood platelet mean volumeOr dered By: Dr. Ford on 08-01-2022 Platelet mean volume (Bld) [Entitic vol] 9.2 fL 6.2-12.0 [facility] Determination of erythrocyte mean corpuscular volume (MCV)Ordered By: Dr. Ford on 08-01-2022 MCV (RBC) [Entitic vol] 97.1 fL 81-99 [facility] Hematocrit Auto (Bld) [Volum e fraction]Ordered By: Dr. Ford on 08-01-2022 Hematocrit (Bld) [Volume fraction] 39.8 % 37-47 [facility] Laboratory - Chemistry and C hemistry - challengeOrdered By: Dr. Ford on 08-01-2022 ALP [Catalytic activity/Vol] 65 U/L 45-117 [facility] ALT [Catalytic activity/Vol] 38 U/L 13-56 [facility] CO2 [Moles/Vol] 28.0 mmol/L 21.0-32.0 [facility] Globulin (S) [Mass/Vol] 3.1 g/dL 2.2-4.2 [facility] Urea nitrogen/Creatinine [Mass ratio] 26.4 mg/mg 10-20 [facility] Laboratory - Hematology and Cell countsOrdered By: Dr. Ford on 08-01-2022 Erythrocyte distribution width (RBC) [Entitic vol] 50.2 fL 35.1-43.9 [facility] Erythrocyte distribution width (RBC) [Ratio] 14.5 % 11.6-14.6 [facility] Immature granulocytes/100 WBC (Bld) 0.300 % 0.0-0.9 [facility] Comment on above: IG% - Immature Granu locytes (promyelocytes, myelocytes and metamyelocytes) > 1% indicates that a LEFT SHIFT is Present. MCH (RBC) [Entitic mass] 31.2 pg 27.0-32.0 [facility] Nucleated RBC/100 WBC (Bld) [Ratio] 0 % 0-5 [facility] MCHC Auto (RBC) [Mass/Vol]Or dered By: Dr. Ford on 08-01-2022 MCHC (RBC) [Mass/Vol] 32.2 g/dL 32-[address] [facility] No Panel InformationOrdered By: Dr. Ford on 08-01-2022 Estimated Creatinine Clearance Calc 79.07 ml/min [facility] Estimated GFR (MDRD) Amer 92 mL/min >60 [facility] Comment on above: GFR Calc Estimated GFR (MDRD) Non-Af Amer 76 mL/min >60 [facility] Comment on above: Non- GFR Calc Platelets bldOrdered By: Dr. Ford on 08-01-2022 Platelets (Bld) [#/Vol] 147 10*3/uL 150-450 [facility] Serum or plasma albumin paul urement (mass/volume)Ordered By: Dr. Ford on 08-01-2022 Albumin [Mass/Vol] 3.6 g/dL 3.2-5.0 [facility] Serum or plasma albumin/glob ulin mass ratioOrdered By: Dr. Ford on 08-01-2022 Albumin/Globulin [Mass ratio] 1.2 {ratio} 0.9-2.4 [facility] Serum or plasma calcium paul urement (mass/volume)Ordered By: Dr. Ford on 08-01-2022 Calcium [Mass/Vol] 10.1 mg/dL 8.5-10.1 [facility] Serum or plasma creatinine m easurement (mass/volume)Ordered By: Dr. Ford on 08-01-2022 Creatinine [Mass/Vol] 0.83 mg/dL 0.55-1.[address] [facility] Comment on above: The validity of the calculated GFR & GFRAA in patients over 70 years has not been determined. Clinical correlation is essential. Serum or plasma urea nitroge n measurement (mass/volume)Ordered By: Dr. Ford on 08-01-2022 Urea nitrogen [Mass/Vol] 22 mg/dL 7-18 [facility] Thin prep Papanicolaou smear with manual screeningOrdered By: Dr. Ford on 08-01-2022 Thin prep Papanicolaou smear with manual screening 25 U/L 15-37 [facility] Comment on above: Slight Hemolysis, Re sult may be falsely increased. Thin prep Papanicolaou smear with manual screening 5 5-15 [facility] Basophil percentageOrdered B y: Dr. Ford on 07-18-2022 LDH [Catalytic activity/Vol] 240 U/L 84-246 [facility] Laboratory - Chemistry and C hemistry - challengeOrdered By: Dr. Ford on 07-18-2022 Magnesium [Mass/Vol] 2.0 mg/dL 1.6-2.6 [facility] Comment on above: Slight Hemolysis, Re sult may be falsely increased. Absolute lymphocyte countOrd ered By: Dr. Ford on 06-27-2022 Lymphocytes Auto (Unsp spec) [#/Vol] 1.58 10*3/uL 0.83-4.51 [facility] Basophil percentageOrdered B y: Dr. Ford on 06-27-2022 Basophils/100 WBC (Bld) 0.2 % 0-1 [facility] Bilirubin [Mass/Vol] 0.40 mg/dL 0.20-1.00 [facility] Comment on above: For patients on eltr ombopag therapy, use of Dim[place] TBIL is not recommended. Chloride [Moles/Vol] 106 mmol/L 98-107 [facility] Eosinophils/100 WBC (Bld) 0.8 % 0-5 [facility] Glucose [Mass/Vol] 154 mg/dL 74-106 [facility] Comment on above: Fasting Glucose resu lt greater than or equal to 126 mg/dL suggests DIABETES MELLITUS per A.D.A. criteria. Neutrophils (Bld) [#/Vol] 7.1 10*3/uL 2.0-7.7 [facility] Neutrophils/100 WBC (Bld) 76.4 % 47-70 [facility] Potassium [Moles/Vol] 3.8 mmol/L 3.5-5.[address] [facility] Protein [Mass/Vol] 7.3 g/dL 6.4-8.2 [facility] Sodium [Moles/Vol] 139 mmol/L 136-145 [facility] WBC (Bld) [#/Vol] 9.3 10*3/uL 4.4-11.0 [facility] Blood erythrocytes count (nu mber/volume)Ordered By: Dr. Ford on 06-27-2022 RBC (Bld) [#/Vol] 4.53 10*6/uL 4.2-5.[address] [facility] Blood hemoglobin measurement (mass/volume)Ordered By: Dr. Ford on 06-27-2022 Hemoglobin (Bld) [Mass/Vol] 14.3 g/dL 12.0-15.0 [facility] Blood lymphocytes/100 leukoc ytesOrdered By: Dr. Ford on 06-27-2022 Lymphocytes/100 WBC (Bld) 17.1 % 19-41 [facility] Blood monocytes/100 leukocyt esOrdered By: Dr. Ford on 06-27-2022 Monocytes/100 WBC (Bld) 5.1 % 0-10 [facility] Blood platelet mean volumeOr dered By: Dr. Ford on 06-27-2022 Platelet mean volume (Bld) [Entitic vol] 9.6 fL 6.2-12.0 [facility] Determination of erythrocyte mean corpuscular volume (MCV)Ordered By: Dr. Ford on 06-27-2022 MCV (RBC) [Entitic vol] 96.5 fL 81-99 [facility] Hematocrit Auto (Bld) [Volum e fraction]Ordered By: Dr. Ford on 06-27-2022 Hematocrit (Bld) [Volume fraction] 43.7 % 37-47 [facility] Laboratory - Chemistry and C hemistry - challengeOrdered By: Dr. Ford on 06-27-2022 ALP [Catalytic activity/Vol] 81 U/L 45-117 [facility] ALT [Catalytic activity/Vol] 31 U/L 13-56 [facility] CO2 [Moles/Vol] 28.0 mmol/L 21.0-32.0 [facility] Globulin (S) [Mass/Vol] 3.5 g/dL 2.2-4.2 [facility] Magnesium [Mass/Vol] 2.0 mg/dL 1.6-2.6 [facility] Urea nitrogen/Creatinine [Mass ratio] 17.9 mg/mg 10-20 [facility] Laboratory - Hematology and Cell countsOrdered By: Dr. Ford on 06-27-2022 Erythrocyte distribution width (RBC) [Entitic vol] 46.7 fL 35.1-43.9 [facility] Erythrocyte distribution width (RBC) [Ratio] 13.2 % 11.6-14.6 [facility] Immature granulocytes/100 WBC (Bld) 0.400 % 0.0-0.9 [facility] Comment on above: IG% - Immature Granu locytes (promyelocytes, myelocytes and metamyelocytes) > 1% indicates that a LEFT SHIFT is Present. MCH (RBC) [Entitic mass] 31.6 pg 27.0-32.0 [facility] Nucleated RBC/100 WBC (Bld) [Ratio] 0 % 0-5 [facility] MCHC Auto (RBC) [Mass/Vol]Or dered By: Dr. Ford on 06-27-2022 MCHC (RBC) [Mass/Vol] 32.7 g/dL 32-[address] [facility] No Panel InformationOrdered By: Genna Zuniga on 06-27-2022 CA 15-3 Antigen 352.0 U/mL 0.0-25.0 [facility] Comment on above: Results confirmed on dilution.[employer] Electrochemiluminescence Immunoassay(ECLIA)Values obtained with different assay methods or kits cannotbe used interchangeably. Results cannot be interpreted asabsolute evidence of the presence or absence of malignantdisease.Performed at: [facility] [id number] Director: Ervin Hitchcock PhD, Phone: [phone] [place] 27.29 372.0 U/mL 0.0-38.6 [facility] Comment on above: [employer] Immu nochemiluminometric Methodology (ICMA)Values obtained with different assay methods or kits cannotbe used interchangeably. Results cannot be interpreted asabsolute evidence of the presence or absence of malignantdisease. No Panel InformationOrdered By: Dr. Ford on 06-27-2022 Estimated GFR (MDRD) Amer 85 mL/min >60 [facility] Comment on above: GFR Calc Estimated GFR (MDRD) Non-Af Amer 70 mL/min >60 [facility] Comment on above: Non- GFR Calc Miscellaneous Test Comment MAILED SPECIMEN [facility] Platelets bldOrdered By: Dr. Ford on 06-27-2022 Platelets (Bld) [#/Vol] 249 10*3/uL 150-450 [facility] Serum or plasma albumin paul urement (mass/volume)Ordered By: Dr. Ford on 06-27-2022 Albumin [Mass/Vol] 3.8 g/dL 3.2-5.0 [facility] Serum or plasma albumin/glob ulin mass ratioOrdered By: Dr. Ford on 06-27-2022 Albumin/Globulin [Mass ratio] 1.1 {ratio} 0.9-2.4 [facility] Serum or plasma calcium paul urement (mass/volume)Ordered By: Dr. Ford on 06-27-2022 Calcium [Mass/Vol] 10.5 mg/dL 8.5-10.1 [facility] Serum or plasma carcinoembry onic antigen measurement (mass/volume)Ordered By: Genna Zuniga on 06-27-2022 Carcinoembryonic Ag [Mass/Vol] 76.6 ng/mL 0.0-4.7 [facility] Comment on above: Nonsmokers <3.9 Smok ers <5.6[employer] Electrochemiluminescence Immunoassay(ECLIA)Values obtained with different assay methods or kitscannot be used interchangeably. Results cannot beinterpreted as absolute evidence of the presence orabsence of malignant disease. Serum or plasma creatinine m easurement (mass/volume)Ordered By: Dr. Ford on 06-27-2022 Creatinine [Mass/Vol] 0.89 mg/dL 0.55-1.[address] [facility] Comment on above: The validity of the calculated GFR & GFRAA in patients over 70 years has not been determined. Clinical correlation is essential. Serum or plasma urea nitroge n measurement (mass/volume)Ordered By: Dr. Ford on 06-27-2022 Urea nitrogen [Mass/Vol] 16 mg/dL 7-18 [facility] Thin prep Papanicolaou smear with manual screeningOrdered By: Dr. Ford on 06-27-2022 Thin prep Papanicolaou smear with manual screening 19 U/L 15-37 [facility] Thin prep Papanicolaou smear with manual screening 5 5-15 [facility] Laboratory - Chemistry and C hemistry - challengeOrdered By: Dr. Parr on 06-17-2022 HCG ( test) Ql (U) Negative [facility] Comment on above: Very dilute urine sp ecimens, as indicated by a low specificgravity, may not contain event marketing representative levels of hCG. If is still suspected, a first morning urinespecimen should be collected 48 hours later and tested. Absolute lymphocyte counton 06-13-2022 Lymphocytes Auto (Unsp spec) [#/Vol] 2.44 10*3/uL 0.83-4.51 [facility] Work Phone: Basophil percentageon 2022 Basophils/100 WBC (Bld) 0.4 % 0-1 [facility] Work Phone: Bilirubin [Mass/Vol] 0.50 mg/dL 0.20-1.00 [facility] Work Phone: Comment on above: For patients on eltr ombopag therapy, use of Dimension [place] TBIL is not recommended. Chloride [Moles/Vol] 108 mmol/L 98-107 [facility] Work Phone: Eosinophils/100 WBC (Bld) 0.8 % 0-5 [facility] Work Phone: Glucose [Mass/Vol] 100 mg/dL 74-106 [facility] Work Phone: [phone] Comment on above: Fasting Glucose resu lt from 100 to 125 mg/dL suggests IMPAIRED HOMEOSTASIS per A.D.A. criteria. Neutrophils (Bld) [#/Vol] 7.2 10*3/uL 2.0-7.7 [facility] Work Phone: Neutrophils/100 WBC (Bld) 67.8 % 47-70 [facility] Work Phone: Potassium [Moles/Vol] 3.7 mmol/L 3.5-5.[address] [facility] Work Phone: Protein [Mass/Vol] 8.1 g/dL 6.4-8.2 [facility] Work Phone: Sodium [Moles/Vol] 139 mmol/L 136-145 [facility] Work Phone: WBC (Bld) [#/Vol] 10.6 10*3/uL 4.4-11.[address] [facility] Work Phone: Basophil percentageOrdered B y: Dr. Ford on 06-13-2022 LDH [Catalytic activity/Vol] 191 U/L 84-246 [facility] Blood erythrocytes count (nu mber/volume)on 06-13-2022 RBC (Bld) [#/Vol] 4.86 10*6/uL 4.2-5.[address] [facility] Work Phone: Blood hemoglobin measurement (mass/volume)on 06-13-2022 Hemoglobin (Bld) [Mass/Vol] 15.0 g/dL 12.0-15.0 [facility] Work Phone: Blood lymphocytes/100 leukoc yteson 06-13-2022 Lymphocytes/100 WBC (Bld) 23.0 % 19-41 [facility] Work Phone: Blood monocytes/100 leukocyt eson 06-13-2022 Monocytes/100 WBC (Bld) 7.4 % 0-10 [facility] Work Phone: Blood platelet mean volumeon 06-13-2022 Platelet mean volume (Bld) [Entitic vol] 9.5 fL 6.2-12.0 [facility] Work Phone: Determination of erythrocyte mean corpuscular volume (MCV)on 06-13-2022 MCV (RBC) [Entitic vol] 94.7 fL 81-99 [facility] Work Phone: Hematocrit Auto (Bld) [Volum e fraction]on 06-13-2022 Hematocrit (Bld) [Volume fraction] 46.0 % 37-47 [facility] Work Phone: Laboratory - Chemistry and C hemistry - challengeon 06-13-2022 ALP [Catalytic activity/Vol] 91 U/L 45-117 [facility] Work Phone: ALT [Catalytic activity/Vol] 36 U/L 13-56 [facility] Work Phone: CO2 [Moles/Vol] 28.0 mmol/L 21.0-32.0 [facility] Work Phone: Globulin (S) [Mass/Vol] 3.7 g/dL 2.2-4.2 [facility] Work Phone: Urea nitrogen/Creatinine [Mass ratio] 24.3 mg/mg 10-20 [facility] Work Phone: Laboratory - Hematology and Cell countson 06-13-2022 Erythrocyte distribution width (RBC) [Entitic vol] 44.5 fL 35.1-43.9 [facility] Work Phone: Erythrocyte distribution width (RBC) [Ratio] 12.9 % 11.6-14.6 [facility] Work Phone: Immature granulocytes/100 WBC (Bld) 0.600 % 0.0-0.9 [facility] Work Phone: Comment on above: IG% - Immature Granu locytes (promyelocytes, myelocytes and metamyelocytes) > 1% indicates that a LEFT SHIFT is Present. MCH (RBC) [Entitic mass] 30.9 pg 27.0-32.0 [facility] Work Phone: Nucleated RBC/100 WBC (Bld) [Ratio] 0 % 0-5 [facility] Work Phone: MCHC Auto (RBC) [Mass/Vol]on 06-13-2022 MCHC (RBC) [Mass/Vol] 32.6 g/dL 32-[address] [facility] Work Phone: No Panel Informationon 06-13 Estimated GFR (MDRD) Amer 93 mL/min >60 [facility] Work Phone: Comment on above: GFR Calc Estimated GFR (MDRD) Non-Af Amer 77 mL/min >60 [facility] Work Phone: Comment on above: Non- GFR Calc Platelets bldon 06-13-2022 Platelets (Bld) [#/Vol] 317 10*3/uL 150-450 [facility] Work Phone: Serum or plasma albumin paul urement (mass/volume)on 06-13-2022 Albumin [Mass/Vol] 4.4 g/dL 3.2-5.0 [facility] Work Phone: Serum or plasma albumin/glob ulin mass ratioon 06-13-2022 Albumin/Globulin [Mass ratio] 1.2 {ratio} 0.9-2.4 [facility] Work Phone: Serum or plasma calcium paul urement (mass/volume)on 06-13-2022 Calcium [Mass/Vol] 10.6 mg/dL 8.5-10.1 [facility] Work Phone: Serum or plasma creatinine m easurement (mass/volume)on 06-13-2022 Creatinine [Mass/Vol] 0.82 mg/dL 0.55-1.[address] [facility] Work Phone: Comment on above: The validity of the calculated GFR & GFRAA in patients over 70 years has not been determined. Clinical correlation is essential. Serum or plasma urea nitroge n measurement (mass/volume)on 06-13-2022 Urea nitrogen [Mass/Vol] 20 mg/dL 7-18 [facility] Work Phone: Thin prep Papanicolaou smear with manual screeningon 06-13-2022 Thin prep Papanicolaou smear with manual screening 19 U/L 15-37 [facility] Work Phone: Thin prep Papanicolaou smear with manual screening 3 5-15 [facility] Work Phone: LABORATORYOrdered By: Tal Root on 06-07-2022 Adenovirus DNA ERMIAS+non-probe Ql (Nph) Not Detected *NA* (06/07/22 10:36 AM) Invalid Interpretation Code Not Detected AH Auto Viro/Sero SS B. parapertussis [id number] DNA ERMIAS+non-probe Ql (Nph) Not Detected *NA* [...] notified. Results have been reported to the [facility]. [place] 06-07-2022 Adenovirus Not detected Normal Not Detected [facility] ([place]) Comment on above: Performed By: #### R ESCVID #### [address] [address] Bordetella Parapertussis Not detected Normal Not Detected [facility] ([place]) Comment on above: Performed By: #### R ESCVID #### [facility] [address] [place] [address] Bordetella Pertussis Not detected Normal Not Detected [facility] ([place]) Comment on above: Performed By: #### R ESCVID #### [facility] [address] [place], [place] [id number] Chlamydophila pneumoniae Not detected Normal Not Detected [facility] ([place] Comment on above: Performed By: #### R ESCVID #### [place] [address] Coronavirus 229E (Not COVID-19) Not detected Normal Not Detected [facility] ([place] Comment on above: Performed By: #### R ESCVID #### [place] [address] Coronavirus HKU1 (Not COVID-19) Not detected Normal Not Detected [facility] ([place] Comment on above: Performed By: #### R ESCVID #### [place] [address] Coronavirus NL63 (Not COVID-19) Not detected Normal Not Detected [facility] ([place] Comment on above: Performed By: #### R ESCVID #### [place] [address] Coronavirus OC43 (Not COVID-19) Not detected Normal Not Detected [facility] ([place] Comment on above: Performed By: #### R ESCVID #### [place] [address] Human Metapneumovirus Not detected Normal Not Detected [facility] ([place] Comment on above: Performed By: #### R ESCVID #### [facility] [address] [place], [place] [id number] Influenza A Not detected Normal Not Detected [facility] ([place] Comment on above: Performed By: #### R ESCVID #### [facility] [address] [place], [place] [id number] Influenza B Not detected Normal Not Detected [facility] ([place] Comment on above: Performed By: #### R ESCVID #### [address] [address] Mycoplasma pneumoniae Not detected Normal Not Detected [facility] ([place] Comment on above: Performed By: #### R ESCVID #### [place] [id number] Parainfluenza 1 Not detected Normal Not Detected [facility] ([place] Comment on above: Performed By: #### R ESCVID #### [place] [id number] Parainfluenza 2 Not detected Normal Not Detected [facility] ([place] Comment on above: Performed By: #### R ESCVID #### [place] [id number] Parainfluenza 3 Detected Abnormal Not Detected [facility] ([place] Comment on above: Performed By: #### R ESCVID #### [place] [address] Parainfluenza 4 Not detected Normal Not Detected [facility] ([place] Comment on above: Performed By: #### R ESCVID #### [place] [address] Respiratory Syncytial Virus Not detected Normal Not Detected [facility] ([place] Comment on above: Performed By: #### R ESCVID #### [place] [address] Rhinovirus/Enterovirus Not detected Normal Not Detected [facility] ([place] Comment on above: Performed By: #### R ESCVID #### [place] [id number] SARS-CoV-2 (COVID-19) RNA ERMIAS+probe Ql (Unsp spec) Detected Abnormal Not Detected [facility] ([place]) Comment on above: Result Comment: This organism causes a reportable disease. Infection Control has been notified. Results have been reported to the [place] [facility]. This test is being used under the FDA EUA procedure. This assay has been validated in the [facility] for use with nasopharyngeal specimens in [facility]. If a non-validated specimen or test collection [...] public health authorities. Performed By: #### R [facility] #### [place] [address] PATHOLOGY REPORTS (OUTSIDE)o n 06-06-2022 [facility] Anaerobic cultureOrdered By: Dr. Wolfe on 05-29-2022 Bacteria identified Anaer cx Nom (Unsp spec) No growth in 5 days. [facility] Routine wound cultureOrdered By: Dr. Wolfe on 05-26-2022 Bacteria identified Cx Nom (Wound) No growth aerobically. [facility] Gram stain for investigation of transfusion reactionOrdered By: Dr. Wolfe on 05-25-2022 Microscopic observation Gram stain Nom (Unsp spec) [facility] No Panel InformationOrdered By: Dr. Ng on 05-23-2022 Troponin I High Sensitivity 6 pg/mL 3.0-54.0 [facility] Comment on above: Please Note: New [place]ina t Units and Gender Specific Reference Ranges. For more information see Policy Stat Procedure [place] High Sensitivity Troponin (TNIH) and attachments. LABORATORYOrdered [...] 04-09-2017 CNOV Office Visit (UCWSTR) LISSETT STARK ([id number]) 1970 [facility] Time Provider Bitbvwcvno36/1/17 10:15 AM CAROLINA MCGREGOR ([place]) [facility] During your visit today, we recorded the following information about you: Temperature Pulse Respiration Blood pressure 97.9 degrees 68/minute 16/minute 122/78 Weight 98.4 kgCarolina Mgcregor CNP 04/09/2017 2:30 PM AddendumPatient is a [...] 04/09/2017(No Known Allergies)Date Reviewed: 04/09/2017Reviewed by: Carolina ([place]) Balbir - Fully AssessedReason for Visit: Knee Pain [132] Cmt: x 3 days right knee pain Musculoskeletal Problem [69] Cmt: x 2 weeks top of right foot painful and swelling noted at timesPrimary Visit Diagnosis:Acute pain of right knee [M25.561]Order(s):XR KNEE LIMITED 2V AP/LAT RT [[id number]] Order #: [id number]. #:[id number] methylPREDNISolone (MEDROL, ARNIE,) 4 mg Dose-PackFollow dosing [...] take with food.Letter Kvng Mcgregor CNP Urgent [address] [facility] [address]: [phone]/1/2017Regina Youd577 [facility] [address]Zs Whom it May Concern:This is to certify that Lissett Stark was seen at our office for medicalcare. Lissett may return to school on 04.11.2017.If you have any questions please feel free to call.Sincerely:Carolina Mcgregor CNPEncounter Number: [id number] Status:Closed by CAROLINA MCGREGOR CNP on 04/09/17 Normal [facility] PROGRESSon 04-09-2017 PROGRESS HNO ID: [id number] thor: Geovanna George (Rt): (none)Author Type: TechnicianType: Progress NotesFiled: 04/09/2017 10:54 AMNote Text: Radiology Service Progress NotePATIENT NAME: Lissett YoudMRN: [id number] OF SERVICE: April 09, 2017TIME: 10:44 AMPATIENT IDENTITY VERIFICATION COMPLETED USING TWO (2) METHODS: Patientconfirmed name verbally and Date of .PATIENT GENDER DATA: Female. status: : NoBreastfeeding status: NO.PATIENT RELEVANT IMPLANT DATA REVIEWED: Not ApplicableRADIOLOGY DEPARTMENT: General X-ray: Exam(s) Completed: Lower ExtremityX-Ray(s): Knee, AP / LAT Right:PERIPHERAL IV DATA: Not applicableSIGNED BY: RT ArielApril 09, 2017 10:44 AM Normal [facility] PROGRESS HNO ID: [id number] thor: Carolina ([place]) FulkService: (none)Author Type: Nurse PractitionerType: Progress NotesFiled: [...] warranting prompt ER evaluation.Carolina Mcgregor CNP Normal [facility] XR KNEE 2V AP/LAT RTon 04-09 [...] Mild right knee osteoarthritis and minimal joint effusion.Product Representative: PSCB Transcribe Date/Time: Apr 09 2017 10:59ADictated by : Gael CAMP MDThis examination was interpreted and the report reviewed and electronically signed by: Gael CAMP MD on Apr 09 2017 11:02AM [id number] Normal [facility] Anaerobic culture Bacteria identified Anaer cx Nom (Unsp spec) No growth in 5 days. [facility] Work Phone: Gram stain for investigation of transfusion reaction Microscopic observation Gram stain Nom (Unsp spec) [facility] Work Phone: Routine wound culture Bacteria identified Cx Nom (Wound) No growth aerobically. [facility] Work Phone: Vital Signs Date Time Vital Sign Value Performing Clinician Facility 03-10-2025 11:08-0400 Body height 172.72 cm [facility] Work Phone: [facility] 03-10-2025 11:08-0400 Body mass index (BMI) [Ratio] 34.2 kg/m2 [facility] Work Phone: [facility] 03-10-2025 11:08-0400 Body temperature 98.1 [degF] [facility] Work Phone: [facility] 03-10-2025 11:08-0400 Body weight 102.25 kg [facility] Work Phone: [facility] 03-10-2025 11:08-0400 Diastolic blood pressure 79 mm[Hg] [facility] Work Phone: [facility] 03-10-2025 11:08-0400 Heart rate 78 /min [facility] Work Phone: [facility] 03-10-2025 11:08-0400 Respiratory rate 18 /min [facility] Work Phone: [facility] 03-10-2025 11:08-0400 SaO2% (BldA) [Mass fraction] 96 % [facility] Work Phone: [facility] 03-10-2025 11:08-0400 Systolic blood pressure 118 mm[Hg] [facility] Work Phone: [facility] 02-17-2025 14:42-0400 Body temperature 98 [degF] [facility] Work Phone: [facility] 02-17-2025 14:42-0400 Diastolic blood pressure 68 mm[Hg] [facility] Work Phone: [facility] 02-17-2025 14:42-0400 Heart rate 80 /min [facility] Work Phone: [facility] 02-17-2025 14:42-0400 Respiratory rate 16 /min [facility] Work Phone: [facility] 02-17-2025 14:42-0400 SaO2% (BldA) [Mass fraction] 95 % [facility] Work Phone: [facility] 02-17-2025 14:42-0400 Systolic blood pressure 134 mm[Hg] [facility] Work Phone: [facility] 02-17-2025 11:37-0400 Body height 172.72 cm [facility] Work Phone: [facility] 02-17-2025 11:37-0400 Body mass index (BMI) [Ratio] 34.7 kg/m2 [facility] Work Phone: [facility] 02-17-2025 11:37-0400 Body temperature 98.5 [degF] [facility] Work Phone: [facility] 02-17-2025 11:37-0400 Body weight 103.41 kg [facility] Work Phone: [facility] 02-17-2025 11:37-0400 Diastolic blood pressure 79 mm[Hg] [facility] Work Phone: [facility] 02-17-2025 11:37-0400 Heart rate 77 /min [facility] Work Phone: [facility] 02-17-2025 11:37-0400 Respiratory rate 18 /min [facility] Work Phone: [facility] 02-17-2025 11:37-0400 SaO2% (BldA) [Mass fraction] 95 % [facility] Work Phone: [facility] 02-17-2025 11:37-0400 Systolic blood pressure 127 mm[Hg] [facility] Work Phone: [facility] 02-02-2025 11:45-0400 Body height 172.72 [address] [facility] Work Phone: [facility] 02-02-2025 11:45-0400 Body mass index (BMI) [Ratio] 34.4 kg/m2 [facility] Work Phone: [facility] 02-02-2025 11:45-0400 Body temperature 98.2 [degF] [facility] Work Phone: [facility] 02-02-2025 11:45-0400 Body weight 102.96 kg [facility] Work Phone: [facility] 02-02-2025 11:45-0400 Diastolic blood pressure 82 mm[Hg] [facility] Work Phone: [facility] 02-02-2025 11:45-0400 Heart rate 75 /min [facility] Work Phone: [facility] 02-02-2025 11:45-0400 Respiratory rate 14 /min [facility] Work Phone: [facility] 02-02-2025 11:45-0400 SaO2% (BldA) [Mass fraction] 98 % [facility] Work Phone: [facility] 02-02-2025 11:45-0400 Systolic blood pressure 122 mm[Hg] [facility] Work Phone: [facility] 01-27-2025 11:57-0400 Body temperature 96.8 [degF] [facility] Work Phone: [facility] 01-27-2025 11:57-0400 Diastolic blood pressure 64 mm[Hg] [facility] Work Phone: [facility] 01-27-2025 11:57-0400 Heart rate 71 /min [facility] Work Phone: [facility] 01-27-2025 11:57-0400 Respiratory rate 16 /min [facility] Work Phone: [facility] 01-27-2025 11:57-0400 Systolic blood pressure 137 mm[Hg] [facility] Work Phone: [facility] 01-27-2025 10:51-0400 SaO2% (BldA) [Mass fraction] 98 % [facility] Work Phone: [facility] 01-27-2025 08:16-0400 Body height 172.72 [address] [facility] Work Phone: [facility] 01-27-2025 08:16-0400 Body mass index (BMI) [Ratio] 34.7 kg/m2 [facility] Work Phone: [facility] 01-27-2025 08:16-0400 Body temperature 98.2 [degF] [facility] Work Phone: [facility] 01-27-2025 08:16-0400 Body weight 103.58 kg [facility] Work Phone: [facility] 01-27-2025 08:16-0400 Diastolic blood pressure 81 mm[Hg] [facility] Work Phone: [facility] 01-27-2025 08:16-0400 Heart rate 78 /min [facility] Work Phone: [facility] 01-27-2025 08:16-0400 Respiratory rate 18 /min [facility] Work Phone: [facility] 01-27-2025 08:16-0400 SaO2% (BldA) [Mass fraction] 94 % [facility] Work Phone: [facility] 01-27-2025 08:16-0400 Systolic blood pressure 124 mm[Hg] [facility] Work Phone: [facility] 01-06-2025 14:51-0400 Body temperature 96.9 [degF] [facility] Work Phone: [facility] 01-06-2025 14:51-0400 Diastolic blood pressure 63 mm[Hg] [facility] Work Phone: [facility] 01-06-2025 14:51-0400 Heart rate 71 /min [facility] Work Phone: [facility] 01-06-2025 14:51-0400 Respiratory rate 16 /min [facility] Work Phone: [facility] 01-06-2025 14:51-0400 SaO2% (BldA) [Mass fraction] 97 % [facility] Work Phone: [facility] 01-06-2025 14:51-0400 Systolic blood pressure 142 mm[Hg] [facility] Work Phone: [facility] 01-06-2025 11:37-0400 Body height 172.72 [address] [facility] Work Phone: [facility] 01-06-2025 11:37-0400 Body mass index (BMI) [Ratio] 35.3 kg/m2 [facility] Work Phone: [facility] 01-06-2025 11:37-0400 Body temperature 98.6 [degF] [facility] Work Phone: [facility] 01-06-2025 11:37-0400 Body weight 105.46 kg [facility] Work Phone: [facility] 01-06-2025 11:37-0400 Diastolic blood pressure 75 mm[Hg] [facility] Work Phone: [facility] 01-06-2025 11:37-0400 Heart rate 77 /min [facility] Work Phone: [facility] 01-06-2025 11:37-0400 Respiratory rate 18 /min [facility] Work Phone: [facility] 01-06-2025 11:37-0400 SaO2% (BldA) [Mass fraction] 96 % [facility] Work Phone: [facility] 01-06-2025 11:37-0400 Systolic blood pressure 150 mm[Hg] [facility] Work Phone: [facility] 12-29-2024 07:38-0400 Body height 172.72 [address] [facility] Work Phone: [facility] 12-29-2024 07:38-0400 Body mass index (BMI) [Ratio] 35.8 kg/m2 [facility] Work Phone: [facility] 12-29-2024 07:38-0400 Body temperature 96.9 [degF] [facility] Work Phone: [facility] 12-29-2024 07:38-0400 Body weight 106.76 kg [facility] Work Phone: [facility] 12-29-2024 07:38-0400 Diastolic blood pressure 72 mm[Hg] [facility] Work Phone: [facility] 12-29-2024 07:38-0400 Heart rate 83 /min [facility] Work Phone: [facility] 12-29-2024 07:38-0400 Respiratory rate 16 /min [facility] Work Phone: [facility] 12-29-2024 07:38-0400 SaO2% (BldA) [Mass fraction] 97 % [facility] Work Phone: [facility] 12-29-2024 07:38-0400 Systolic blood pressure 138 mm[Hg] [facility] Work Phone: [facility] 12-16-2024 14:13-0400 Body temperature 97.5 [degF] [facility] Work Phone: [facility] 12-16-2024 14:13-0400 Diastolic blood pressure 55 mm[Hg] [facility] Work Phone: [facility] 12-16-2024 14:13-0400 Heart rate 83 /min [facility] Work Phone: [facility] 12-16-2024 14:13-0400 Respiratory rate 16 /min [facility] Work Phone: [facility] 12-16-2024 14:13-0400 Systolic blood pressure 129 mm[Hg] [facility] Work Phone: [facility] 12-16-2024 11:18-0400 Body height 172.72 [address] [facility] Work Phone: [facility] 12-16-2024 11:18-0400 Body mass index (BMI) [Ratio] 34.9 kg/m2 [facility] Work Phone: [facility] 12-16-2024 11:18-0400 Body weight 104.41 kg [facility] Work Phone: [facility] 12-16-2024 11:18-0400 Diastolic blood pressure 83 mm[Hg] [facility] Work Phone: [facility] 12-16-2024 11:18-0400 Heart rate 79 /min [facility] Work Phone: [facility] 12-16-2024 11:18-0400 Respiratory rate 16 /min [facility] Work Phone: [facility] 12-16-2024 11:18-0400 SaO2% (BldA) [Mass fraction] 97 % [facility] Work Phone: [facility] 12-16-2024 11:18-0400 Systolic blood pressure 133 mm[Hg] [facility] Work Phone: [facility] 11-25-2024 14:33-0400 Body temperature 96.7 [degF] [facility] Work Phone: [facility] 11-25-2024 14:33-0400 Diastolic blood pressure 58 mm[Hg] [facility] Work Phone: [facility] 11-25-2024 14:33-0400 Heart rate 79 /min [facility] Work Phone: [facility] 11-25-2024 14:33-0400 Respiratory rate 16 /min [facility] Work Phone: [facility] 11-25-2024 14:33-0400 Systolic blood pressure 134 mm[Hg] [facility] Work Phone: [facility] 11-25-2024 11:32-0400 Body height 172.72 [address] [facility] Work Phone: [facility] 11-25-2024 11:32-0400 Body mass index (BMI) [Ratio] 34.5 kg/m2 [facility] Work Phone: [facility] 11-25-2024 11:32-0400 Body temperature 98.7 [degF] [facility] Work Phone: [facility] 11-25-2024 11:32-0400 Body weight 103.19 kg [facility] Work Phone: [facility] 11-25-2024 11:32-0400 Diastolic blood pressure 72 mm[Hg] [facility] Work Phone: [facility] 11-25-2024 11:32-0400 Heart rate 79 /min [facility] Work Phone: [facility] 11-25-2024 11:32-0400 Respiratory rate 18 /min [facility] Work Phone: [facility] 11-25-2024 11:32-0400 SaO2% (BldA) [Mass fraction] 96 % [facility] Work Phone: [facility] 11-25-2024 11:32-0400 Systolic blood pressure 130 mm[Hg] [facility] Work Phone: [facility] [facility] 11-04-2024 15:04-0400 Diastolic blood pressure 58 mm[Hg] Blue Wayt PA Work Phone: [facility] 11-04-2024 15:04-0400 Heart rate 73 /min Blue Wayt PA Work Phone: [facility] 11-04-2024 15:04-0400 Respiratory rate 16 /min Blue Wayt PA Work Phone: [facility] 11-04-2024 15:04-0400 Systolic blood pressure 128 mm[Hg] Blue Wayt PA Work Phone: [facility] 11-04-2024 11:38-0400 Body height 172.72 cm Blue Wayt PA Work Phone: [facility] 11-04-2024 11:38-0400 Body mass index (BMI) [Ratio] 34.5 kg/m2 Blue Wayt PA Work Phone: [facility] 11-04-2024 11:38-0400 Body temperature 97.7 [degF] Blue Wayt PA Work Phone: [facility] 11-04-2024 11:38-0400 Body weight 102.99 kg Blue Wayt PA Work Phone: [facility] 11-04-2024 11:38-0400 Diastolic blood pressure 78 mm[Hg] Blue Wayt PA Work Phone: [facility] 11-04-2024 11:38-0400 Heart rate 80 /min Blue Wayt PA Work Phone: [facility] 11-04-2024 11:38-0400 Respiratory rate 18 /min Blue Wayt PA Work Phone: [facility] 11-04-2024 11:38-0400 SaO2% (BldA) [Mass fraction] 96 % Blue Wayt PA Work Phone: [facility] 11-04-2024 11:38-0400 Systolic blood pressure 134 mm[Hg] Blue Wayt PA Work Phone: [facility] 10-26-2024 11:12-0400 Body height 172.72 cm Blue Wayt PA Work Phone: [facility] 10-26-2024 11:12-0400 Body mass index (BMI) [Ratio] 34.7 kg/m2 Blue Wayt PA Work Phone: [facility] 10-26-2024 11:12-0400 Body temperature 98.5 [degF] Blue Wayt PA Work Phone: [facility] 10-26-2024 11:12-0400 Body weight 103.58 kg Blue Wayt PA Work Phone: [facility] 10-26-2024 11:12-0400 Diastolic blood pressure 82 mm[Hg] Blue Wayt PA Work Phone: [facility] 10-26-2024 11:12-0400 Heart rate 74 /min Blue Wayt PA Work Phone: [facility] 10-26-2024 11:12-0400 SaO2% (BldA) [Mass fraction] 95 % Blue Wayt PA Work Phone: [facility] 10-26-2024 11:12-0400 Systolic blood pressure 120 mm[Hg] Blue Wayt PA Work Phone: [facility] 10-14-2024 13:57-0400 Diastolic blood pressure 70 mm[Hg] Blue Wayt PA Work Phone: [facility] 10-14-2024 13:57-0400 Heart rate 92 /min Blue Wayt PA Work Phone: [facility] 10-14-2024 13:57-0400 Systolic blood pressure 112 mm[Hg] Blue Wayt PA Work Phone: [facility] 10-14-2024 10:06-0400 Body mass index (BMI) [Ratio] 34 kg/m2 Blue Wayt PA Work Phone: [facility] 10-14-2024 10:06-0400 Body temperature 98.4 [degF] Blue Wayt PA Work Phone: [facility] 10-14-2024 10:06-0400 Body weight 101.4 kg Blue Wayt PA Work Phone: [facility] 10-14-2024 10:06-0400 Diastolic blood pressure 78 mm[Hg] Blue Wayt PA Work Phone: [facility] 10-14-2024 10:06-0400 Heart rate 83 /min Blue Wayt PA Work Phone: [facility] 10-14-2024 10:06-0400 Respiratory rate 18 /min Blue Wayt PA Work Phone: [facility] 10-14-2024 10:06-0400 SaO2% (BldA) [Mass fraction] 98 % Blue Wayt PA Work Phone: [facility] 10-14-2024 10:06-0400 Systolic blood pressure 126 mm[Hg] Blue Wayt PA Work Phone: [facility] 09-23-2024 14:41-0400 Body temperature 97.7 [degF] Blue Wayt PA Work Phone: [facility] 09-23-2024 14:41-0400 Respiratory rate 16 /min Blue Wayt PA Work Phone: [facility] 09-23-2024 11:24-0400 Body mass index (BMI) [Ratio] 34.4 kg/m2 Blue Wayt PA Work Phone: [facility] 09-23-2024 11:24-0400 Body temperature 98.5 [degF] Blue Wayt PA Work Phone: [facility] 09-23-2024 11:24-0400 Body weight 102.71 kg Blue Wayt PA Work Phone: [facility] 09-23-2024 11:24-0400 Diastolic blood pressure 86 mm[Hg] Blue Wayt PA Work Phone: [facility] 09-23-2024 11:24-0400 Heart rate 76 /min Blue Wayt PA Work Phone: [facility] 09-23-2024 11:24-0400 Respiratory rate 18 /min Blue Wayt PA Work Phone: [facility] 09-23-2024 11:24-0400 SaO2% (BldA) [Mass fraction] 97 % Bule Wayt PA Work Phone: [facility] 09-23-2024 11:24-0400 Systolic blood pressure 130 mm[Hg] Blue Wayt PA Work Phone: [facility] 09-02-2024 14:34-0400 Body temperature 98.8 [degF] Maida Kim POWER [employer]LECTRON[employer] RESEARCH ENGINEER-C Work Phone: [facility] 09-02-2024 14:34-0400 Diastolic blood pressure 71 mm[Hg] Maida Kim POWER ELECTRONICS RESEARCH ENGINEER-C Work Phone: [facility] 09-02-2024 14:34-0400 Heart rate 87 /min Maida Kim POWER ELECTRONICS RESEARCH ENGINEER-C Work Phone: [facility] 09-02-2024 14:34-0400 Respiratory rate 16 /min Maida Kim POWER ELECTRONICS RESEARCH ENGINEER-C Work Phone: [facility] 09-02-2024 14:34-0400 SaO2% (BldA) [Mass fraction] 98 % Maida Julio POWER ELECTRONICS RESEARCH ENGINEER-C Work Phone: [facility] 09-02-2024 14:34-0400 Systolic blood pressure 134 mm[Hg] Maida [place] POWER ELECTRONICS RESEARCH ENGINEER-C Work Phone: [facility] 09-02-2024 11:36-0400 Body height 172.72 cm Maida Julio POWER ELECTRONICS RESEARCH ENGINEER-C Work Phone: [facility] 09-02-2024 11:36-0400 Body temperature 98 [degF] Maida Julio POWER ELECTRONICS RESEARCH ENGINEER-C Work Phone: [facility] 09-02-2024 11:36-0400 Diastolic blood pressure 72 mm[Hg] Maida Julio POWER ELECTRONICS RESEARCH ENGINEER-C Work Phone: [facility] 09-02-2024 11:36-0400 Heart rate 86 /min Maida Julio POWER ELECTRONICS RESEARCH ENGINEER-C Work Phone: [facility] 09-02-2024 11:36-0400 Respiratory rate 18 /min Maida [place] POWER ELECTRONICS RESEARCH ENGINEER-C Work Phone: [facility] 09-02-2024 11:36-0400 SaO2% (BldA) [Mass fraction] 95 % Maida [place] POWER ELECTRONICS RESEARCH ENGINEER-C Work Phone: [facility] 09-02-2024 11:36-0400 Systolic blood pressure 129 mm[Hg] Maida Julio POWER ELECTRONICS RESEARCH ENGINEER-C Work Phone: [facility] 08-12-2024 13:38-0500 Body temperature 98.5 [degF] Maida Juloi POWER ELECTRONICS RESEARCH ENGINEER-C Work Phone: [facility] 08-12-2024 13:38-0500 Diastolic blood pressure 70 mm[Hg] Maida Julio POWER ELECTRON[employer] RESEARCH ENGINEER-C Work Phone: [facility] 08-12-2024 13:38-0500 Heart rate 73 /min Maida [place] POWER ELECTRON[employer] RESEARCH ENGINEER-C Work Phone: [facility] 08-12-2024 13:38-0500 Respiratory rate 16 /min Maida Kim POWER ELECTRONICS RESEARCH ENGINEER-C Work Phone: [facility] 08-12-2024 13:38-0500 Systolic blood pressure 120 mm[Hg] Maida Kim POWER ELECTRONICS RESEARCH ENGINEER-C Work Phone: [facility] 08-12-2024 10:18-0500 Body height 172.72 cm Maida Kim POWER ELECTRONICS RESEARCH ENGINEER-C Work Phone: [facility] 08-12-2024 10:18-0500 Body mass index (BMI) [Ratio] 34.7 kg/m2 Maida Kim POWER ELECTRON[employer] RESEARCH ENGINEER-C Work Phone: [facility] 08-12-2024 10:18-0500 Body temperature 98.6 [degF] Maida Kim POWER ELECTRONICS RESEARCH ENGINEER-C Work Phone: [facility] 08-12-2024 10:18-0500 Body weight 103.61 kg Maida Kim POWER ELECTRONICS RESEARCH ENGINEER-C Work Phone: [facility] 08-12-2024 10:18-0500 Diastolic blood pressure 74 mm[Hg] Maida Kim POWER ELECTRONICS RESEARCH ENGINEER-C Work Phone: [facility] 08-12-2024 10:18-0500 Heart rate 71 /min Maida Kim POWER ELECTRONICS RESEARCH ENGINEER-C Work Phone: [facility] 08-12-2024 10:18-0500 Respiratory rate 18 /min Maida Clinemer POWER ELECTRONICS RESEARCH ENGINEER-C Work Phone: [facility] 08-12-2024 10:18-0500 SaO2% (BldA) [Mass fraction] 97 % Maida Kim POWER ELECTRONICS RESEARCH ENGINEER-C Work Phone: [facility] 08-12-2024 10:18-0500 Systolic blood pressure 118 mm[Hg] Maida Kim POWER ELECTRONICS RESEARCH ENGINEER-C Work Phone: [facility] 07-22-2024 14:38-0500 SaO2% (BldA) [Mass fraction] 98 % Maida Julio POWER ELECTRONICS RESEARCH ENGINEER-C Work Phone: [facility] 07-22-2024 11:28-0500 Body mass index (BMI) [Ratio] 35.4 kg/m2 Maida Julio POWER ELECTRON[employer] RESEARCH ENGINEER-C Work Phone: [facility] 07-22-2024 11:28-0500 Body temperature 96.3 [degF] Maida [place] POWER ELECTRON[employer] RESEARCH ENGINEER-C Work Phone: [facility] 07-22-2024 11:28-0500 Body weight 105.68 kg Maida Julio POWER ELECTRONICS RESEARCH ENGINEER-C Work Phone: [facility] 07-22-2024 11:28-0500 Diastolic blood pressure 81 mm[Hg] Maida Julio POWER ELECTRONICS RESEARCH ENGINEER-C Work Phone: [facility] 07-22-2024 11:28-0500 Heart rate 83 /min Maida [place] POWER ELECTRONICS RESEARCH ENGINEER-C Work Phone: [facility] 07-22-2024 11:28-0500 Respiratory rate 16 /min Maida [place] POWER ELECTRONICS RESEARCH ENGINEER-C Work Phone: [facility] 07-22-2024 11:28-0500 SaO2% (BldA) [Mass fraction] 98 % Maida [place] POWER ELECTRONICS RESEARCH ENGINEER-C Work Phone: [facility] 07-22-2024 11:28-0500 Systolic blood pressure 131 mm[Hg] Maida [place] POWER ELECTRONICS RESEARCH ENGINEER-C Work Phone: [facility] 07-01-2024 10:54-0500 Body mass index (BMI) [Ratio] 35.2 kg/m2 Maida Julio POWER ELECTRON[employer] RESEARCH ENGINEER-C Work Phone: [facility] 07-01-2024 10:54-0500 Body temperature 98.4 [degF] Maida [place] POWER ELECTRONICS RESEARCH ENGINEER-C Work Phone: [facility] 07-01-2024 10:54-0500 Body weight 104.97 kg Maida [place] POWER ELECTRONICS RESEARCH ENGINEER-C Work Phone: [facility] 07-01-2024 10:54-0500 Diastolic blood pressure 74 mm[Hg] Maida Kim POWER ELECTRONICS RESEARCH ENGINEER-C Work Phone: [facility] 07-01-2024 10:54-0500 Heart rate 74 /min Maidanicky Kim POWER ELECTRONICS RESEARCH ENGINEER-C Work Phone: [facility] 07-01-2024 10:54-0500 Respiratory rate 18 /min Maida [place] POWER ELECTRONICS RESEARCH ENGINEER-C Work Phone: [facility] 07-01-2024 10:54-0500 SaO2% (BldA) [Mass fraction] 97 % Maida Kim POWER ELECTRONICS RESEARCH ENGINEER-C Work Phone: [facility] 07-01-2024 10:54-0500 Systolic blood pressure 131 mm[Hg] Maida Kim POWER ELECTRONICS RESEARCH ENGINEER-C Work Phone: [facility] 06-16-2024 13:07-0500 Body mass index (BMI) [Ratio] 34.9 kg/m2 Maidanicky Kim POWER ELECTRONICS RESEARCH ENGINEER-C Work Phone: [facility] 06-16-2024 13:07-0500 Body temperature 97.6 [degF] Maida Clinemer POWER ELECTRONICS RESEARCH ENGINEER-C Work Phone: [facility] 06-16-2024 13:07-0500 Body weight 104.32 kg Maida Kim POWER ELECTRONICS RESEARCH ENGINEER-C Work Phone: [facility] 06-16-2024 13:07-0500 Diastolic blood pressure 87 mm[Hg] Maida Kim POWER ELECTRON[employer] RESEARCH ENGINEER-C Work Phone: [facility] 06-16-2024 13:07-0500 Heart rate 74 /min Maida Kim POWER ELECTRONICS RESEARCH ENGINEER-C Work Phone: [facility] 06-16-2024 13:07-0500 Respiratory rate 18 /min Maidanicky Kim POWER ELECTRONICS RESEARCH ENGINEER-C Work Phone: [facility] 06-16-2024 13:07-0500 SaO2% (BldA) [Mass fraction] 98 % Maida Kim POWER ELECTRONICS RESEARCH ENGINEER-C Work Phone: [facility] 06-16-2024 13:07-0500 Systolic blood pressure 143 mm[Hg] Maida Julio POWER ELECTRON[employer] RESEARCH ENGINEER-C Work Phone: [facility] 06-15-2024 11:05-0500 Body temperature 97.8 [degF] Maida Julio POWER ELECTRONICS RESEARCH ENGINEER-C Work Phone: [facility] 06-15-2024 11:05-0500 Diastolic blood pressure 73 mm[Hg] Maidanicky Clinemer POWER ELECTRONICS RESEARCH ENGINEER-C Work Phone: [facility] 06-15-2024 11:05-0500 Heart rate 85 /min Maida Julio POWER ELECTRONICS RESEARCH ENGINEER-C Work Phone: [facility] 06-15-2024 11:05-0500 Respiratory rate 18 /min Maida Clinemer POWER ELECTRONICS RESEARCH ENGINEER-C Work Phone: [facility] 06-15-2024 11:05-0500 SaO2% (BldA) [Mass fraction] 95 % Maidanicky Clinemer POWER ELECTRONICS RESEARCH ENGINEER-C Work Phone: [facility] 06-15-2024 11:05-0500 Systolic blood pressure 124 mm[Hg] Maida Clinemer POWER ELECTRON[employer] RESEARCH ENGINEER-C Work Phone: [facility] 06-10-2024 11:15-0500 Body mass index (BMI) [Ratio] 35.4 kg/m2 Maidanicky Clinemer POWER ELECTRON[employer] RESEARCH ENGINEER-C Work Phone: [facility] 06-10-2024 11:15-0500 Body temperature 98.9 [degF] Maida Clinemer POWER ELECTRONICS RESEARCH ENGINEER-C Work Phone: [facility] 06-10-2024 11:15-0500 Body weight 105.74 kg Maida Kim POWER ELECTRONICS RESEARCH ENGINEER-C Work Phone: [facility] 06-10-2024 11:15-0500 Diastolic blood pressure 83 mm[Hg] Maida [place] P[employer] ELECTRONICS RESEARCH ENGINEER-C Work Phone: [facility] 06-10-2024 11:15-0500 Heart rate 80 /min Maidacristian Kim POWER ELECTRONICS RESEARCH ENGINEER-C Work Phone: [facility] 06-10-2024 11:15-0500 Respiratory rate 18 /min Maida Julio POWER ELECTRONICS RESEARCH ENGINEER-C Work Phone: [facility] 06-10-2024 11:15-0500 SaO2% (BldA) [Mass fraction] 94 % Maida Julio POWER ELECTRONICS RESEARCH ENGINEER-C Work Phone: [facility] 06-10-2024 11:15-0500 Systolic blood pressure 143 mm[Hg] Maida Kim POWER ELECTRON[employer] RESEARCH ENGINEER-C Work Phone: [facility] 05-20-2024 11:11-0500 Body mass index (BMI) [Ratio] 34.9 kg/m2 Maidanicky Kim POWER ELECTRON[employer] RESEARCH ENGINEER-C Work Phone: [facility] 05-20-2024 11:11-0500 Body temperature 97.9 [degF] Maida Julio POWER ELECTRONICS RESEARCH ENGINEER-C Work Phone: [facility] 05-20-2024 11:11-0500 Body weight 104.32 kg Maida Julio POWER ELECTRON[employer] RESEARCH ENGINEER-C Work Phone: [facility] 05-20-2024 11:11-0500 Diastolic blood pressure 85 mm[Hg] Maida Kim POWER ELECTRONICS RESEARCH ENGINEER-C Work Phone: [facility] 05-20-2024 11:11-0500 Heart rate 85 /min Maidanicky Kim POWER ELECTRONICS RESEARCH ENGINEER-C Work Phone: [facility] 05-20-2024 11:11-0500 Respiratory rate 18 /min Maidacristian Kim POWER ELECTRONICS RESEARCH ENGINEER-C Work Phone: [facility] 05-20-2024 11:11-0500 SaO2% (BldA) [Mass fraction] 96 % Maida Kim POWER ELECTRONICS RESEARCH ENGINEER-C Work Phone: [facility] 05-20-2024 11:11-0500 Systolic blood pressure 136 mm[Hg] Maida Julio POWER ELECTRON[employer] RESEARCH ENGINEER-C Work Phone: [facility] 04-29-2024 11:31-0500 Body mass index (BMI) [Ratio] 34.7 kg/m2 Maida [place] POWER ELECTRON[employer] RESEARCH ENGINEER-C Work Phone: [facility] 04-29-2024 11:31-0500 Body temperature 98.5 [degF] Maida [place] POWER ELECTRONICS RESEARCH ENGINEER-C Work Phone: [facility] 04-29-2024 11:31-0500 Body weight 103.58 kg Maida [place] POWER ELECTRON[employer] RESEARCH ENGINEER-C Work Phone: [facility] 04-29-2024 11:31-0500 Diastolic blood pressure 82 mm[Hg] Maida Julio POWER ELECTRON[employer] RESEARCH ENGINEER-C Work Phone: [facility] 04-29-2024 11:31-0500 Heart rate 76 /min Maida Julio POWER ELECTRON[employer] RESEARCH ENGINEER-C Work Phone: [facility] 04-29-2024 11:31-0500 Respiratory rate 16 /min Maida [place] POWER ELECTRON[employer] RESEARCH ENGINEER-C Work Phone: [facility] 04-29-2024 11:31-0500 SaO2% (BldA) [Mass fraction] 98 % Maida [place] POWER ELECTRONICS RESEARCH ENGINEER-C Work Phone: [facility] 04-29-2024 11:31-0500 Systolic blood pressure 140 mm[Hg] Maida [place] POWER ELECTRON[employer] RESEARCH ENGINEER-C Work Phone: [facility] 10-28-2023 15:11-0400 Body mass index (BMI) [Ratio] 33.67 kg/m2 Gladis Rausch MD Work Phone: [facility] 10-28-2023 15:11-0400 Body weight 103.42 kg Gladis Rausch MD Work Phone: [facility] 10-28-2023 15:11-0400 Diastolic blood pressure 82 mm[Hg] Gladis Rausch MD Work Phone: [facility] 10-28-2023 15:11-0400 Heart rate 82 /min Gladis Rausch MD Work Phone: [facility] 10-28-2023 15:11-0400 Systolic blood pressure 133 mm[Hg] Gladis Rausch MD Work Phone: [facility] 10-10-2023 11:15-0400 Diastolic blood pressure 97 mm[Hg] Gladis Rausch MD Work Phone: [facility] 10-10-2023 11:15-0400 Heart rate 81 /min Gladis Rausch MD Work Phone: [facility] 10-10-2023 11:15-0400 Respiratory rate 19 /min Gladis Rausch MD Work Phone: [facility] 10-10-2023 11:15-0400 SaO2% (BldA) [Mass fraction] 96 % Gladis Rausch MD Work Phone: [facility] 10-10-2023 11:15-0400 Systolic blood pressure 122 mm[Hg] Gladis Rausch MD Work Phone: [facility] 10-10-2023 11:04-0400 Body temperature 98.1 [degF] Gladis Rausch MD Work Phone: [facility] 09-02-2023 16:06-0400 Body height 174 cm Gladis Rausch MD Work Phone: [facility] 09-02-2023 16:06-0400 Body mass index (BMI) [Ratio] 33.71 kg/m2 Gladis Rausch MD Work Phone: [facility] 09-02-2023 16:06-0400 Body weight 102.06 kg Gladis Rausch MD Work Phone: [facility] 09-02-2023 16:06-0400 Diastolic blood pressure 77 mm[Hg] Gladis Rausch MD Work Phone: [facility] 09-02-2023 16:06-0400 Heart rate 88 /min Gladis Rausch MD Work Phone: [facility] 09-02-2023 16:06-0400 Systolic blood pressure 120 mm[Hg] Gladis Rausch MD Work Phone: [facility] 08-12-2023 10:33-0500 Body mass index (BMI) [Ratio] 33.86 kg/m2 Nikko Giraldo MD Work Phone: [facility] 08-12-2023 10:33-0500 Body weight 102.51 kg Nikko Giraldo MD Work Phone: [facility] 08-12-2023 10:33-0500 Diastolic blood pressure 81 mm[Hg] Nikko Giraldo MD Work Phone: [facility] 08-12-2023 10:33-0500 Heart rate 88 /min Nikko Giraldo MD Work Phone: [facility] 08-12-2023 10:33-0500 Systolic blood pressure 150 mm[Hg] Nikko Giraldo MD Work Phone: [facility] 07-31-2023 16:44-0500 Diastolic blood pressure 71 mm[Hg] P[employer] RESEARCH ENGINEER-C Maida Kim POWER ELECTRONICS RESEARCH ENGINEER Work Phone: [facility] 07-31-2023 16:44-0500 Heart rate 79 /min P[employer] RESEARCH ENGINEER-C Maida Kim POWER ELECTRONICS RESEARCH ENGINEER Work Phone: [facility] 07-31-2023 16:44-0500 Respiratory rate 16 /min P[employer] RESEARCH ENGINEER-C Maida Kim POWER ELECTRONICS RESEARCH ENGINEER Work Phone: [facility] 07-31-2023 16:44-0500 SaO2% (BldA) [Mass fraction] 97 % P[employer] RESEARCH ENGINEER-C Maida Kim POWER ELECTRONICS RESEARCH ENGINEER Work Phone: [facility] 07-31-2023 16:44-0500 Systolic blood pressure 128 mm[Hg] P[employer] RESEARCH ENGINEER-C Maida Kim POWER ELECTRONICS RESEARCH ENGINEER Work Phone: [facility] 07-31-2023 13:07-0500 Body height 172.72 cm POWER ELECTRON[employer] RESEARCH ENGINEER-C Maida Julio POWER ELECTRONICS RESEARCH ENGINEER Work Phone: [facility] 07-31-2023 13:07-0500 Body mass index (BMI) [Ratio] 34.5 kg/m2 P[employer] RESEARCH ENGINEER-C Maida Julio POWER ELECTRONICS RESEARCH ENGINEER Work Phone: [facility] 07-31-2023 13:07-0500 Body temperature 98.2 [degF] P[employer]RON[employer] RESEARCH ENGINEER-C Maida Julio POWER ELECTRONICS RESEARCH ENGINEER Work Phone: [facility] 07-31-2023 13:07-0500 Body weight 103.1 kg POWER E[employer]RON[employer] RESEARCH ENGINEER-C Maida Julio POWER ELECTRONICS RESEARCH ENGINEER Work Phone: [facility] 07-31-2023 13:07-0500 Diastolic blood pressure 78 mm[Hg] P[employer] E[employer]RON[employer] RESEARCH ENGINEER-C Maida Julio POWER ELECTRONICS RESEARCH ENGINEER Work Phone: [facility] 07-31-2023 13:07-0500 Heart rate 77 /min P[employer] RESEARCH ENGINEER-C Maida Julio POWER ELECTRONICS RESEARCH ENGINEER Work Phone: [facility] 07-31-2023 13:07-0500 Respiratory rate 18 /min P[employer] RESEARCH ENGINEER-C Maida Julio POWER ELECTRONICS RESEARCH ENGINEER Work Phone: [facility] 07-31-2023 13:07-0500 SaO2% (BldA) [Mass fraction] 97 % P[employer] RESEARCH ENGINEER-C Maida Julio POWER ELECTRONICS RESEARCH ENGINEER Work Phone: [facility] 07-31-2023 13:07-0500 Systolic blood pressure 132 mm[Hg] POWER E[employer]RON[employer] RESEARCH ENGINEER-C Maida Julio POWER ELECTRONICS RESEARCH ENGINEER Work Phone: [facility] 07-10-2023 16:30-0500 Body temperature 98.1 [degF] P[employer] RESEARCH ENGINEER-C Maida Julio POWER ELECTRONICS RESEARCH ENGINEER Work Phone: [facility] 07-10-2023 13:07-0500 Body mass index (BMI) [Ratio] 35.2 kg/m2 P[employer]EARCH ENGINEER-C Maida Kim POWER ELECTRONICS RESEARCH ENGINEER Work Phone: [facility] 06-26-2023 13:10-0500 Body mass index (BMI) [Ratio] 34.3 kg/m2 P[employer] RESEARCH ENGINEER-C Maida Julio POWER ELECTRONICS RESEARCH ENGINEER Work Phone: [facility] 06-26-2023 13:10-0500 Body temperature 98.5 [degF] POWER ELECTRON[employer] RESEARCH ENGINEER-C Maida [place] POWER ELECTRONICS RESEARCH ENGINEER Work Phone: [facility] 06-26-2023 13:10-0500 Body weight 102.54 kg POWER ELECTRON[employer] RESEARCH ENGINEER-C Maida Julio POWER ELECTRONICS RESEARCH ENGINEER Work Phone: [facility] 06-26-2023 13:10-0500 Diastolic blood pressure 88 mm[Hg] P[employer] E[employer]RON[employer] RESEARCH ENGINEER-C Maida Julio POWER ELECTRONICS RESEARCH ENGINEER Work Phone: [facility] 06-26-2023 13:10-0500 Heart rate 82 /min P[employer] RESEARCH ENGINEER-C Maida Clinemer POWER ELECTRONICS RESEARCH ENGINEER Work Phone: [facility] 06-26-2023 13:10-0500 Respiratory rate 18 /min P[employer] RESEARCH ENGINEER-C Maida Julio POWER ELECTRONICS RESEARCH ENGINEER Work Phone: [facility] 06-26-2023 13:10-0500 SaO2% (BldA) [Mass fraction] 98 % P[employer] E[employer] RESEARCH ENGINEER-C Maidanicky Kim POWER ELECTRONICS RESEARCH ENGINEER Work Phone: [facility] 06-26-2023 13:10-0500 Systolic blood pressure 139 mm[Hg] POWER ELECTRON[employer] RESEARCH ENGINEER-C Maida Julio POWER ELECTRONICS RESEARCH ENGINEER Work Phone: [facility] 06-20-2023 11:09-0500 Body mass index (BMI) [Ratio] 34.8 kg/m2 P[employer] RESEARCH ENGINEER-C Maida Kim POWER ELECTRONICS RESEARCH ENGINEER Work Phone: [facility] 06-20-2023 11:09-0500 Body temperature 98 [degF] POWER ELECTRONICS RESEARCH ENGINEER-C Maida Kim POWER ELECTRONICS RESEARCH ENGINEER Work Phone: [facility] 06-20-2023 11:09-0500 Body weight 103.87 kg POWER ELECTRONICS RESEARCH ENGINEER-C Maida Kim POWER ELECTRONICS RESEARCH ENGINEER Work Phone: [facility] 06-20-2023 11:09-0500 Diastolic blood pressure 83 mm[Hg] POWER ELECTRONICS RESEARCH ENGINEER-C Maida Kim POWER ELECTRONICS RESEARCH ENGINEER Work Phone: [facility] 06-20-2023 11:09-0500 Heart rate 74 /min POWER ELECTRONICS RESEARCH ENGINEER-C Maida Julio POWER ELECTRONICS RESEARCH ENGINEER Work Phone: [facility] 06-20-2023 11:09-0500 Respiratory rate 18 /min POWER ELECTRONICS RESEARCH ENGINEER-C Maida Julio POWER ELECTRONICS RESEARCH ENGINEER Work Phone: [facility] 06-20-2023 11:09-0500 SaO2% (BldA) [Mass fraction] 98 % POWER ELECTRONICS RESEARCH ENGINEER-C Maida Julio POWER ELECTRONICS RESEARCH ENGINEER Work Phone: [facility] 06-20-2023 11:09-0500 Systolic blood pressure 138 mm[Hg] POWER ELECTRONICS RESEARCH ENGINEER-C Maida Julio POWER ELECTRONICS RESEARCH ENGINEER Work Phone: [facility] 06-05-2023 13:17-0500 Body mass index (BMI) [Ratio] 34.4 kg/m2 POWER ELECTRONICS RESEARCH ENGINEER-C Maida Kim POWER ELECTRONICS RESEARCH ENGINEER Work Phone: [facility] 06-05-2023 13:17-0500 Body temperature 98.7 [degF] POWER ELECTRONICS RESEARCH ENGINEER-C Maida Julio POWER ELECTRONICS RESEARCH ENGINEER Work Phone: [facility] 06-05-2023 13:17-0500 Body weight 102.71 kg POWER ELECTRONICS RESEARCH ENGINEER-C Maida [place] POWER ELECTRONICS RESEARCH ENGINEER Work Phone: [facility] 06-05-2023 13:17-0500 Diastolic blood pressure 78 mm[Hg] POWER ELECTRONICS RESEARCH ENGINEER-C Maida Kim POWER ELECTRONICS RESEARCH ENGINEER Work Phone: [facility] 06-05-2023 13:17-0500 Heart rate 77 /min POWER ELECTRONICS RESEARCH ENGINEER-C Maida Kim POWER ELECTRONICS RESEARCH ENGINEER Work Phone: [facility] 06-05-2023 13:17-0500 Respiratory rate 18 /min POWER ELECTRONICS RESEARCH ENGINEER-C Maida Kim POWER ELECTRONICS RESEARCH ENGINEER Work Phone: [facility] 06-05-2023 13:17-0500 SaO2% (BldA) [Mass fraction] 99 % POWER ELECTRONICS RESEARCH ENGINEER-C Maida Kim POWER ELECTRONICS RESEARCH ENGINEER Work Phone: [facility] 06-05-2023 13:17-0500 Systolic blood pressure 132 mm[Hg] POWER ELECTRONICS RESEARCH ENGINEER-C Maida Clinemer POWER ELECTRONICS RESEARCH ENGINEER Work Phone: [facility] 05-15-2023 13:06-0500 Body mass index (BMI) [Ratio] 34.2 kg/m2 POWER ELECTRONICS RESEARCH ENGINEER-C Maida Clinemer POWER ELECTRONICS RESEARCH ENGINEER Work Phone: [facility] 05-15-2023 13:06-0500 Body temperature 99.1 [degF] POWER ELECTRONICS RESEARCH ENGINEER-C Maida Clinemer POWER ELECTRONICS RESEARCH ENGINEER Work Phone: [facility] 05-15-2023 13:06-0500 Body weight 102.14 kg POWER ELECTRONICS RESEARCH ENGINEER-C Maida Clinemer POWER ELECTRONICS RESEARCH ENGINEER Work Phone: [facility] 05-15-2023 13:06-0500 Diastolic blood pressure 82 mm[Hg] POWER ELECTRONICS RESEARCH ENGINEER-C Maida Clinemer POWER ELECTRONICS RESEARCH ENGINEER Work Phone: [facility] 05-15-2023 13:06-0500 Heart rate 78 /min POWER ELECTRONICS RESEARCH ENGINEER-C Maida Clinemer POWER ELECTRONICS RESEARCH ENGINEER Work Phone: [facility] 05-15-2023 13:06-0500 Respiratory rate 18 /min POWER ELECTRONICS RESEARCH ENGINEER-C Maida Clinemer POWER ELECTRONICS RESEARCH ENGINEER Work Phone: [facility] 05-15-2023 13:06-0500 SaO2% (BldA) [Mass fraction] 96 % POWER ELECTRONICS RESEARCH ENGINEER-C Maida Clinemer POWER ELECTRONICS RESEARCH ENGINEER Work Phone: [facility] 05-15-2023 13:06-0500 Systolic blood pressure 142 mm[Hg] POWER ELECTRONICS RESEARCH ENGINEER-C Maida Clinemer POWER ELECTRONICS RESEARCH ENGINEER Work Phone: [facility] 05-13-2023 08:40-0500 Body mass index (BMI) [Ratio] 34.01 kg/m2 Nikko Giraldo MD Work Phone: [facility] 05-13-2023 08:40-0500 Body weight 102.97 kg Nikko Giraldo MD Work Phone: [facility] 05-13-2023 08:40-0500 Diastolic blood pressure 84 mm[Hg] Nikko Giraldo MD Work Phone: [facility] 05-13-2023 08:40-0500 Heart rate 85 /min Nikko Giraldo MD Work Phone: [facility] 05-13-2023 08:40-0500 Systolic blood pressure 148 mm[Hg] Nikko Giraldo MD Work Phone: [facility] 04-24-2023 17:11-0500 Body temperature 97.7 [degF] POWER ELECTRONICS RESEARCH ENGINEER-C Maida Kim POWER ELECTRONICS RESEARCH ENGINEER Work Phone: [facility] 04-24-2023 17:11-0500 Diastolic blood pressure 56 mm[Hg] POWER ELECTRONICS RESEARCH ENGINEER-C Maida Kim POWER ELECTRONICS RESEARCH ENGINEER Work Phone: [facility] 04-24-2023 17:11-0500 Heart rate 76 /min POWER ELECTRONICS RESEARCH ENGINEER-C Maida Kim POWER ELECTRONICS RESEARCH ENGINEER Work Phone: [facility] 04-24-2023 17:11-0500 Respiratory rate 16 /min POWER ELECTRONICS RESEARCH ENGINEER-C Maida Kim POWER ELECTRONICS RESEARCH ENGINEER Work Phone: [facility] 04-24-2023 17:11-0500 SaO2% (BldA) [Mass fraction] 100 % POWER ELECTRONICS RESEARCH ENGINEER-C Maida Kim POWER ELECTRONICS RESEARCH ENGINEER Work Phone: [facility] 04-24-2023 17:11-0500 Systolic blood pressure 129 mm[Hg] POWER ELECTRONICS RESEARCH ENGINEER-C Maida Kim POWER ELECTRONICS RESEARCH ENGINEER Work Phone: [facility] 04-24-2023 13:00-0500 Body height 172.72 cm POWER ELECTRONICS RESEARCH ENGINEER-C Maida Kim POWER ELECTRONICS RESEARCH ENGINEER Work Phone: [facility] 04-24-2023 13:00-0500 Body mass index (BMI) [Ratio] 33.9 kg/m2 POWER ELECTRONICS RESEARCH ENGINEER-C Maida Kim POWER ELECTRONICS RESEARCH ENGINEER Work Phone: [facility] 04-24-2023 13:00-0500 Body temperature 98.7 [degF] POWER ELECTRONICS RESEARCH ENGINEER-C Maida Julio POWER ELECTRONICS RESEARCH ENGINEER Work Phone: [facility] 04-24-2023 13:00-0500 Body weight 101.23 kg POWER ELECTRONICS RESEARCH ENGINEER-C Maida Julio POWER ELECTRONICS RESEARCH ENGINEER Work Phone: [facility] 04-24-2023 13:00-0500 Diastolic blood pressure 87 mm[Hg] POWER ELECTRONICS RESEARCH ENGINEER-C Maida Julio POWER ELECTRONICS RESEARCH ENGINEER Work Phone: [facility] 04-24-2023 13:00-0500 Heart rate 79 /min POWER ELECTRONICS RESEARCH ENGINEER-C Maida Julio POWER ELECTRONICS RESEARCH ENGINEER Work Phone: [facility] 04-24-2023 13:00-0500 Respiratory rate 18 /min POWER ELECTRONICS RESEARCH ENGINEER-C Maida Julio POWER ELECTRONICS RESEARCH ENGINEER Work Phone: [facility] 04-24-2023 13:00-0500 SaO2% (BldA) [Mass fraction] 97 % POWER ELECTRONICS RESEARCH ENGINEER-C Maida Julio POWER ELECTRONICS RESEARCH ENGINEER Work Phone: [facility] 04-24-2023 13:00-0500 Systolic blood pressure 134 mm[Hg] POWER ELECTRONICS RESEARCH ENGINEER-C Maida Julio POWER ELECTRONICS RESEARCH ENGINEER Work Phone: [facility] 04-03-2023 13:01-0400 Body mass index (BMI) [Ratio] 34.1 kg/m2 POWER ELECTRONICS RESEARCH ENGINEER-C Maida Julio POWER ELECTRONICS RESEARCH ENGINEER Work Phone: [facility] 04-03-2023 13:01-0400 Body temperature 98.4 [degF] POWER ELECTRONICS RESEARCH ENGINEER-C Maida Julio POWER ELECTRONICS RESEARCH ENGINEER Work Phone: [facility] 04-03-2023 13:01-0400 Body weight 101.85 kg POWER ELECTRONICS RESEARCH ENGINEER-C Maida Kim POWER ELECTRONICS RESEARCH ENGINEER Work Phone: [facility] 04-03-2023 13:01-0400 Diastolic blood pressure 86 mm[Hg] POWER ELECTRONICS RESEARCH ENGINEER-C Maida Kim POWER ELECTRONICS RESEARCH ENGINEER Work Phone: [facility] 04-03-2023 13:01-0400 Heart rate 83 /min POWER ELECTRONICS RESEARCH ENGINEER-C Maida Kim POWER ELECTRONICS RESEARCH ENGINEER Work Phone: [facility] 04-03-2023 13:01-0400 Respiratory rate 18 /min POWER ELECTRONICS RESEARCH ENGINEER-C Maida [place] POWER ELECTRONICS RESEARCH ENGINEER Work Phone: [facility] 04-03-2023 13:01-0400 SaO2% (BldA) [Mass fraction] 96 % POWER ELECTRONICS RESEARCH ENGINEER-C Maida Julio POWER ELECTRONICS RESEARCH ENGINEER Work Phone: [facility] 04-03-2023 13:01-0400 Systolic blood pressure 142 mm[Hg] POWER ELECTRONICS RESEARCH ENGINEER-C Maida [place] POWER ELECTRONICS RESEARCH ENGINEER Work Phone: [facility] 03-13-2023 16:33-0400 Body temperature 97.8 [degF] POWER ELECTRONICS RESEARCH ENGINEER-C Maida Julio POWER ELECTRONICS RESEARCH ENGINEER Work Phone: [facility] 03-13-2023 16:33-0400 Diastolic blood pressure 79 mm[Hg] POWER ELECTRONICS RESEARCH ENGINEER-C Maida [place] POWER ELECTRONICS RESEARCH ENGINEER Work Phone: [facility] 03-13-2023 16:33-0400 Heart rate 73 /min POWER ELECTRONICS RESEARCH ENGINEER-C Maida Julio POWER ELECTRONICS RESEARCH ENGINEER Work Phone: [facility] 03-13-2023 16:33-0400 Respiratory rate 16 /min POWER ELECTRONICS RESEARCH ENGINEER-C Maida Julio POWER ELECTRONICS RESEARCH ENGINEER Work Phone: [facility] 03-13-2023 16:33-0400 SaO2% (BldA) [Mass fraction] 97 % POWER ELECTRONICS RESEARCH ENGINEER-C Maida Julio POWER ELECTRONICS RESEARCH ENGINEER Work Phone: [facility] 03-13-2023 16:33-0400 Systolic blood pressure 136 mm[Hg] POWER ELECTRONICS RESEARCH ENGINEER-C Maida Julio POWER ELECTRONICS RESEARCH ENGINEER Work Phone: [facility] 03-13-2023 13:47-0400 Body height 172.72 cm POWER ELECTRONICS RESEARCH ENGINEER-C Maida Julio POWER ELECTRONICS RESEARCH ENGINEER Work Phone: [facility] 03-13-2023 12:55-0400 Body mass index (BMI) [Ratio] 33.8 kg/m2 POWER ELECTRONICS RESEARCH ENGINEER-C Maida [place] POWER ELECTRONICS RESEARCH ENGINEER Work Phone: [facility] 03-13-2023 12:55-0400 Body temperature 98.6 [degF] POWER ELECTRONICS RESEARCH ENGINEER-C Maida Julio POWER ELECTRONICS RESEARCH ENGINEER Work Phone: [facility] 03-13-2023 12:55-0400 Body weight 100.89 kg POWER ELECTRONICS RESEARCH ENGINEER-C Maida Julio POWER ELECTRONICS RESEARCH ENGINEER Work Phone: [facility] 03-13-2023 12:55-0400 Diastolic blood pressure 82 mm[Hg] POWER ELECTRONICS RESEARCH ENGINEER-C Maida Julio POWER ELECTRONICS RESEARCH ENGINEER Work Phone: [facility] 03-13-2023 12:55-0400 Heart rate 82 /min POWER ELECTRONICS RESEARCH ENGINEER-C Maida Julio POWER ELECTRONICS RESEARCH ENGINEER Work Phone: [facility] 03-13-2023 12:55-0400 Respiratory rate 18 /min POWER ELECTRONICS RESEARCH ENGINEER-C Maida [place] POWER ELECTRONICS RESEARCH ENGINEER Work Phone: [facility] 03-13-2023 12:55-0400 SaO2% (BldA) [Mass fraction] 95 % POWER ELECTRONICS RESEARCH ENGINEER-C Maida [place] POWER ELECTRONICS RESEARCH ENGINEER Work Phone: [facility] 03-13-2023 12:55-0400 Systolic blood pressure 126 mm[Hg] POWER ELECTRONICS RESEARCH ENGINEER-C Maida [place] POWER ELECTRONICS RESEARCH ENGINEER Work Phone: [facility] 02-13-2023 13:16-0400 Body mass index (BMI) [Ratio] 38.3 kg/m2 POWER ELECTRONICS RESEARCH ENGINEER-C Maida [place] POWER ELECTRONICS RESEARCH ENGINEER Work Phone: [facility] 02-13-2023 13:16-0400 Body temperature 98.4 [degF] POWER ELECTRONICS RESEARCH ENGINEER-C Maida [place] POWER ELECTRONICS RESEARCH ENGINEER Work Phone: [facility] 02-13-2023 13:16-0400 Body weight 101.4 kg POWER ELECTRONICS RESEARCH ENGINEER-C Maida [place] POWER ELECTRONICS RESEARCH ENGINEER Work Phone: [facility] 02-13-2023 13:16-0400 Diastolic blood pressure 76 mm[Hg] POWER ELECTRONICS RESEARCH ENGINEER-C Maida Julio POWER ELECTRONICS RESEARCH ENGINEER Work Phone: [facility] 02-13-2023 13:16-0400 Heart rate 70 /min POWER ELECTRONICS RESEARCH ENGINEER-C Maida Julio POWER ELECTRONICS RESEARCH ENGINEER Work Phone: [facility] 02-13-2023 13:16-0400 Respiratory rate 18 /min POWER ELECTRONICS RESEARCH ENGINEER-C Maida Julio POWER ELECTRONICS RESEARCH ENGINEER Work Phone: [facility] 02-13-2023 13:16-0400 SaO2% (BldA) [Mass fraction] 96 % POWER ELECTRONICS RESEARCH ENGINEER-C Maida Julio POWER ELECTRONICS RESEARCH ENGINEER Work Phone: [facility] 02-13-2023 13:16-0400 Systolic blood pressure 131 mm[Hg] POWER ELECTRONICS RESEARCH ENGINEER-C Maida Julio POWER ELECTRONICS RESEARCH ENGINEER Work Phone: [facility] 01-23-2023 16:13-0400 Diastolic blood pressure 61 mm[Hg] POWER ELECTRONICS RESEARCH ENGINEER-C Maida Julio POWER ELECTRONICS RESEARCH ENGINEER Work Phone: [facility] 01-23-2023 16:13-0400 Heart rate 70 /min POWER ELECTRONICS RESEARCH ENGINEER-C Maida [place] POWER ELECTRONICS RESEARCH ENGINEER Work Phone: [facility] 01-23-2023 16:13-0400 Systolic blood pressure 123 mm[Hg] POWER ELECTRONICS RESEARCH ENGINEER-C Maida Julio POWER ELECTRONICS RESEARCH ENGINEER Work Phone: [facility] 01-23-2023 12:58-0400 Body height 162.56 cm POWER ELECTRONICS RESEARCH ENGINEER-C Maida [place] POWER ELECTRONICS RESEARCH ENGINEER Work Phone: [facility] 01-23-2023 12:53-0400 Body mass index (BMI) [Ratio] 38.8 kg/m2 POWER ELECTRONICS RESEARCH ENGINEER-C Maida Julio POWER ELECTRONICS RESEARCH ENGINEER Work Phone: [facility] 01-23-2023 12:53-0400 Body temperature 98.8 [degF] POWER ELECTRONICS RESEARCH ENGINEER-C Maida [place] POWER ELECTRONICS RESEARCH ENGINEER Work Phone: [facility] 01-23-2023 12:53-0400 Body weight 102.65 kg POWER ELECTRONICS RESEARCH ENGINEER-C Maida [place] POWER ELECTRONICS RESEARCH ENGINEER Work Phone: [facility] 01-23-2023 12:53-0400 Diastolic blood pressure 76 mm[Hg] POWER ELECTRONICS RESEARCH ENGINEER-C Maida [place] POWER ELECTRONICS RESEARCH ENGINEER Work Phone: [facility] 01-23-2023 12:53-0400 Heart rate 84 /min POWER ELECTRONICS RESEARCH ENGINEER-C Maida Kim POWER ELECTRONICS RESEARCH ENGINEER Work Phone: [facility] 01-23-2023 12:53-0400 Respiratory rate 18 /min POWER ELECTRONICS RESEARCH ENGINEER-C Maida Kim POWER ELECTRONICS RESEARCH ENGINEER Work Phone: [facility] 01-23-2023 12:53-0400 SaO2% (BldA) [Mass fraction] 96 % POWER ELECTRONICS RESEARCH ENGINEER-C Maida Clinemer POWER ELECTRONICS RESEARCH ENGINEER Work Phone: [facility] 01-23-2023 12:53-0400 Systolic blood pressure 126 mm[Hg] POWER ELECTRONICS RESEARCH ENGINEER-C Maida Clinemer POWER ELECTRONICS RESEARCH ENGINEER Work Phone: [facility] 01-02-2023 16:56-0400 Respiratory rate 14 /min POWER ELECTRONICS RESEARCH ENGINEER-C Maida Kim POWER ELECTRONICS RESEARCH ENGINEER Work Phone: [facility] 01-02-2023 16:56-0400 SaO2% (BldA) [Mass fraction] 100 % POWER ELECTRONICS RESEARCH ENGINEER-C Maida Kim POWER ELECTRONICS RESEARCH ENGINEER Work Phone: [facility] 01-02-2023 13:03-0400 Body mass index (BMI) [Ratio] 38.9 kg/m2 POWER ELECTRONICS RESEARCH ENGINEER-C Maida Kim POWER ELECTRONICS RESEARCH ENGINEER Work Phone: [facility] 01-02-2023 13:03-0400 Body temperature 98.2 [degF] POWER ELECTRONICS RESEARCH ENGINEER-C Maida Kim POWER ELECTRONICS RESEARCH ENGINEER Work Phone: [facility] 01-02-2023 13:03-0400 Body weight 103.07 kg POWER ELECTRONICS RESEARCH ENGINEER-C Maida Kim POWER ELECTRONICS RESEARCH ENGINEER Work Phone: [facility] 01-02-2023 13:03-0400 Diastolic blood pressure 74 mm[Hg] POWER ELECTRONICS RESEARCH ENGINEER-C Maida Kim POWER ELECTRONICS RESEARCH ENGINEER Work Phone: [facility] 01-02-2023 13:03-0400 Heart rate 74 /min POWER ELECTRONICS RESEARCH ENGINEER-C Maida Kim POWER ELECTRONICS RESEARCH ENGINEER Work Phone: [facility] 01-02-2023 13:03-0400 Respiratory rate 16 /min POWER ELECTRONICS RESEARCH ENGINEER-C Maida Julio POWER ELECTRONICS RESEARCH ENGINEER Work Phone: [facility] 01-02-2023 13:03-0400 SaO2% (BldA) [Mass fraction] 96 % POWER ELECTRONICS RESEARCH ENGINEER-C Maida [place] POWER ELECTRONICS RESEARCH ENGINEER Work Phone: [facility] 01-02-2023 13:03-0400 Systolic blood pressure 128 mm[Hg] POWER ELECTRONICS RESEARCH ENGINEER-C Maida [place] POWER ELECTRONICS RESEARCH ENGINEER Work Phone: [facility] 12-19-2022 16:05-0400 Body mass index (BMI) [Ratio] 39 kg/m2 POWER ELECTRONICS RESEARCH ENGINEER-C Maida Julio POWER ELECTRONICS RESEARCH ENGINEER Work Phone: [facility] 12-19-2022 16:05-0400 Body temperature 97 [degF] POWER ELECTRONICS RESEARCH ENGINEER-C Maida [place] POWER ELECTRONICS RESEARCH ENGINEER Work Phone: [facility] 12-19-2022 16:05-0400 Body weight 103.19 kg POWER ELECTRONICS RESEARCH ENGINEER-C Maida Julio POWER ELECTRONICS RESEARCH ENGINEER Work Phone: [facility] 12-19-2022 16:05-0400 Diastolic blood pressure 79 mm[Hg] POWER ELECTRONICS RESEARCH ENGINEER-C Maida [place] POWER ELECTRONICS RESEARCH ENGINEER Work Phone: [facility] 12-19-2022 16:05-0400 Heart rate 87 /min POWER ELECTRONICS RESEARCH ENGINEER-C Maida Julio POWER ELECTRONICS RESEARCH ENGINEER Work Phone: [facility] 12-19-2022 16:05-0400 Respiratory rate 16 /min POWER ELECTRONICS RESEARCH ENGINEER-C Maida Julio POWER ELECTRONICS RESEARCH ENGINEER Work Phone: [facility] 12-19-2022 16:05-0400 SaO2% (BldA) [Mass fraction] 97 % POWER ELECTRONICS RESEARCH ENGINEER-C Maida [place] POWER ELECTRONICS RESEARCH ENGINEER Work Phone: [facility] 12-19-2022 16:05-0400 Systolic blood pressure 143 mm[Hg] POWER ELECTRONICS RESEARCH ENGINEER-C Maida [place] POWER ELECTRONICS RESEARCH ENGINEER Work Phone: [facility] 12-12-2022 16:32-0400 Body temperature 97 [degF] POWER ELECTRONICS RESEARCH ENGINEER-C Maida Julio POWER ELECTRONICS RESEARCH ENGINEER Work Phone: [facility] 12-12-2022 13:05-0400 Body mass index (BMI) [Ratio] 38.6 kg/m2 POWER ELECTRONICS RESEARCH ENGINEER-C Maida [place] POWER ELECTRONICS RESEARCH ENGINEER Work Phone: [facility] 12-12-2022 13:05-0400 Body temperature 97.6 [degF] POWER ELECTRONICS RESEARCH ENGINEER-C Maida Kim POWER ELECTRONICS RESEARCH ENGINEER Work Phone: [facility] 12-12-2022 13:05-0400 Body weight 102.05 kg POWER ELECTRONICS RESEARCH ENGINEER-C Maida Kim POWER ELECTRONICS RESEARCH ENGINEER Work Phone: [facility] 12-12-2022 13:05-0400 Diastolic blood pressure 75 mm[Hg] POWER ELECTRONICS RESEARCH ENGINEER-C Maida Kim POWER ELECTRONICS RESEARCH ENGINEER Work Phone: [facility] 12-12-2022 13:05-0400 Heart rate 80 /min POWER ELECTRONICS RESEARCH ENGINEER-C Maida Kim POWER ELECTRONICS RESEARCH ENGINEER Work Phone: [facility] 12-12-2022 13:05-0400 Respiratory rate 18 /min POWER ELECTRONICS RESEARCH ENGINEER-C Maida Julio POWER ELECTRONICS RESEARCH ENGINEER Work Phone: [facility] 12-12-2022 13:05-0400 SaO2% (BldA) [Mass fraction] 98 % POWER ELECTRONICS RESEARCH ENGINEER-C Maida Kim POWER ELECTRONICS RESEARCH ENGINEER Work Phone: [facility] 12-12-2022 13:05-0400 Systolic blood pressure 125 mm[Hg] POWER ELECTRONICS RESEARCH ENGINEER-C Maida Kim POWER ELECTRONICS RESEARCH ENGINEER Work Phone: [facility] 11-21-2022 16:11-0400 Body temperature 97 [degF] POWER ELECTRONICS RESEARCH ENGINEER-C Maida Kim POWER ELECTRONICS RESEARCH ENGINEER Work Phone: [facility] 11-21-2022 16:11-0400 Diastolic blood pressure 55 mm[Hg] POWER ELECTRONICS RESEARCH ENGINEER-C Maida Kim POWER ELECTRONICS RESEARCH ENGINEER Work Phone: [facility] 11-21-2022 16:11-0400 Heart rate 77 /min POWER ELECTRONICS RESEARCH ENGINEER-C Maida Kim POWER ELECTRONICS RESEARCH ENGINEER Work Phone: [facility] 11-21-2022 16:11-0400 Respiratory rate 16 /min POWER ELECTRONICS RESEARCH ENGINEER-C Maida Julio POWER ELECTRONICS RESEARCH ENGINEER Work Phone: [facility] 11-21-2022 16:11-0400 SaO2% (BldA) [Mass fraction] 98 % POWER ELECTRONICS RESEARCH ENGINEER-C Maida Julio POWER ELECTRONICS RESEARCH ENGINEER Work Phone: [facility] 11-21-2022 16:11-0400 Systolic blood pressure 118 mm[Hg] POWER ELECTRONICS RESEARCH ENGINEER-C Maida Julio POWER ELECTRONICS RESEARCH ENGINEER Work Phone: [facility] 11-21-2022 13:49-0400 Body height 162.56 cm POWER ELECTRONICS RESEARCH ENGINEER-C Maida Julio POWER ELECTRONICS RESEARCH ENGINEER Work Phone: [facility] 11-21-2022 13:49-0400 Body mass index (BMI) [Ratio] 39.4 kg/m2 POWER ELECTRONICS RESEARCH ENGINEER-C Maida Kim POWER ELECTRONICS RESEARCH ENGINEER Work Phone: [facility] 11-21-2022 13:49-0400 Body weight 104.41 kg POWER ELECTRONICS RESEARCH ENGINEER-C Maida Kim POWER ELECTRONICS RESEARCH ENGINEER Work Phone: [facility] 11-21-2022 13:02-0400 Body mass index (BMI) [Ratio] 39.4 kg/m2 POWER ELECTRONICS RESEARCH ENGINEER-C Maida Julio POWER ELECTRONICS RESEARCH ENGINEER Work Phone: [facility] 11-21-2022 13:02-0400 Body temperature 98.3 [degF] POWER ELECTRONICS RESEARCH ENGINEER-C Maida Kim POWER ELECTRONICS RESEARCH ENGINEER Work Phone: [facility] 11-21-2022 13:02-0400 Body weight 104.41 kg POWER ELECTRONICS RESEARCH ENGINEER-C Maida Kim POWER ELECTRONICS RESEARCH ENGINEER Work Phone: [facility] 11-21-2022 13:02-0400 Diastolic blood pressure 73 mm[Hg] POWER ELECTRONICS RESEARCH ENGINEER-C Maida Kim POWER ELECTRONICS RESEARCH ENGINEER Work Phone: [facility] 11-21-2022 13:02-0400 Heart rate 81 /min POWER ELECTRONICS RESEARCH ENGINEER-C Maida Kim POWER ELECTRONICS RESEARCH ENGINEER Work Phone: [facility] 11-21-2022 13:02-0400 Respiratory rate 16 /min POWER ELECTRONICS RESEARCH ENGINEER-C Maida Kim POWER ELECTRONICS RESEARCH ENGINEER Work Phone: [facility] 11-21-2022 13:02-0400 SaO2% (BldA) [Mass fraction] 95 % POWER ELECTRONICS RESEARCH ENGINEER-C Maida iKm POWER ELECTRONICS RESEARCH ENGINEER Work Phone: [facility] 11-21-2022 13:02-0400 Systolic blood pressure 134 mm[Hg] POWER ELECTRONICS RESEARCH ENGINEER-C Maida Kim POWER ELECTRONICS RESEARCH ENGINEER Work Phone: [facility] 10-31-2022 16:45-0400 Body temperature 97.7 [degF] P[employer]EARCH ENGINEER-C Maida Kim POWER ELECTRONICS RESEARCH ENGINEER Work Phone: [facility] 10-31-2022 16:45-0400 Diastolic blood pressure 56 mm[Hg] POWER [employer]LECTRON[employer] RESEARCH ENGINEER-C Maida Kim POWER ELECTRONICS RESEARCH ENGINEER Work Phone: [facility] 10-31-2022 16:45-0400 Heart rate 85 /min POWER ELECTRONICS RESEARCH ENGINEER-C Maida Julio POWER ELECTRONICS RESEARCH ENGINEER Work Phone: [facility] 10-31-2022 16:45-0400 Respiratory rate 16 /min POWER ELECTRONICS RESEARCH ENGINEER-C Maida Julio POWER ELECTRONICS RESEARCH ENGINEER Work Phone: [facility] 10-31-2022 16:45-0400 Systolic blood pressure 119 mm[Hg] POWER ELECTRONICS RESEARCH ENGINEER-C Maida Kim POWER ELECTRONICS RESEARCH ENGINEER Work Phone: [facility] 10-31-2022 13:50-0400 Body height 162.56 cm POWER ELECTRONICS RESEARCH ENGINEER-C Maida Kim POWER ELECTRONICS RESEARCH ENGINEER Work Phone: [facility] 10-31-2022 13:50-0400 Body mass index (BMI) [Ratio] 41.4 kg/m2 POWER ELECTRONICS RESEARCH ENGINEER-C Maida Julio POWER ELECTRONICS RESEARCH ENGINEER Work Phone: [facility] 10-31-2022 13:50-0400 Body weight 109.57 kg POWER ELECTRONICS RESEARCH ENGINEER-C Maida Kim POWER ELECTRONICS RESEARCH ENGINEER Work Phone: [facility] 10-31-2022 13:11-0400 Body mass index (BMI) [Ratio] 41.4 kg/m2 POWER ELECTRONICS RESEARCH ENGINEER-C Maida Julio POWER ELECTRONICS RESEARCH ENGINEER Work Phone: [facility] 10-31-2022 13:11-0400 Body temperature 97.9 [degF] POWER ELECTRONICS RESEARCH ENGINEER-C Maida Julio POWER ELECTRONICS RESEARCH ENGINEER Work Phone: [facility] 10-31-2022 13:11-0400 Body weight 109.57 kg POWER ELECTRONICS RESEARCH ENGINEER-C Maida Julio POWER ELECTRONICS RESEARCH ENGINEER Work Phone: [facility] 10-31-2022 13:11-0400 Diastolic blood pressure 80 mm[Hg] POWER ELECTRONICS RESEARCH ENGINEER-C Maida Julio POWER ELECTRONICS RESEARCH ENGINEER Work Phone: [facility] 10-31-2022 13:11-0400 Heart rate 87 /min POWER ELECTRONICS RESEARCH ENGINEER-C Maida Julio POWER ELECTRONICS RESEARCH ENGINEER Work Phone: [facility] 10-31-2022 13:11-0400 Respiratory rate 16 /min POWER ELECTRONICS RESEARCH ENGINEER-C Maida Julio POWER ELECTRONICS RESEARCH ENGINEER Work Phone: [facility] 10-31-2022 13:11-0400 SaO2% (BldA) [Mass fraction] 97 % POWER ELECTRONICS RESEARCH ENGINEER-C Maida Julio POWER ELECTRONICS RESEARCH ENGINEER Work Phone: [facility] 10-31-2022 13:11-0400 Systolic blood pressure 130 mm[Hg] POWER ELECTRONICS RESEARCH ENGINEER-C Maida Julio POWER ELECTRONICS RESEARCH ENGINEER Work Phone: [facility] 10-11-2022 14:47-0400 SaO2% (BldA) [Mass fraction] 98 % POWER ELECTRONICS RESEARCH ENGINEER-C Maida Julio POWER ELECTRONICS RESEARCH ENGINEER Work Phone: [facility] 10-10-2022 08:24-0400 Body mass index (BMI) [Ratio] 40.2 kg/m2 POWER ELECTRONICS RESEARCH ENGINEER-C Maida Kim POWER ELECTRONICS RESEARCH ENGINEER Work Phone: [facility] 10-10-2022 08:24-0400 Body temperature 98.4 [degF] POWER ELECTRONICS RESEARCH ENGINEER-C Maida Kim POWER ELECTRONICS RESEARCH ENGINEER Work Phone: [facility] 10-10-2022 08:24-0400 Body weight 106.28 kg POWER ELECTRONICS RESEARCH ENGINEER-C Maida Julio POWER ELECTRONICS RESEARCH ENGINEER Work Phone: [facility] 10-10-2022 08:24-0400 Diastolic blood pressure 81 mm[Hg] POWER ELECTRONICS RESEARCH ENGINEER-C Maida Julio POWER ELECTRONICS RESEARCH ENGINEER Work Phone: [facility] 10-10-2022 08:24-0400 Heart rate 98 /min POWER ELECTRONICS RESEARCH ENGINEER-C Maida Kim POWER ELECTRONICS RESEARCH ENGINEER Work Phone: [facility] 10-10-2022 08:24-0400 Respiratory rate 16 /min POWER ELECTRONICS RESEARCH ENGINEER-C Maida Julio POWER ELECTRONICS RESEARCH ENGINEER Work Phone: [facility] 10-10-2022 08:24-0400 SaO2% (BldA) [Mass fraction] 99 % POWER ELECTRONICS RESEARCH ENGINEER-C Maida Kim POWER ELECTRONICS RESEARCH ENGINEER Work Phone: [facility] 10-10-2022 08:24-0400 Systolic blood pressure 134 mm[Hg] POWER ELECTRONICS RESEARCH ENGINEER-C Maida Julio POWER ELECTRONICS RESEARCH ENGINEER Work Phone: [facility] 09-30-2022 14:59-0400 Body mass index (BMI) [Ratio] 39.4 kg/m2 POWER ELECTRONICS RESEARCH ENGINEER-C Maida Julio POWER ELECTRONICS RESEARCH ENGINEER Work Phone: [facility] 09-30-2022 14:59-0400 Body temperature 97 [degF] POWER ELECTRONICS RESEARCH ENGINEER-C Maida Julio POWER ELECTRONICS RESEARCH ENGINEER Work Phone: [facility] 09-30-2022 14:59-0400 Body weight 104.09 kg POWER ELECTRONICS RESEARCH ENGINEER-C Maida Julio POWER ELECTRONICS RESEARCH ENGINEER Work Phone: [facility] 09-30-2022 14:59-0400 Diastolic blood pressure 83 mm[Hg] POWER ELECTRONICS RESEARCH ENGINEER-C Maida Julio POWER ELECTRONICS RESEARCH ENGINEER Work Phone: [facility] 09-30-2022 14:59-0400 Heart rate 100 /min POWER ELECTRONICS RESEARCH ENGINEER-C Maida Kim POWER ELECTRONICS RESEARCH ENGINEER Work Phone: [facility] 09-30-2022 14:59-0400 Respiratory rate 16 /min POWER ELECTRONICS RESEARCH ENGINEER-C Maida Julio POWER ELECTRONICS RESEARCH ENGINEER Work Phone: [facility] 09-30-2022 14:59-0400 SaO2% (BldA) [Mass fraction] 96 % POWER ELECTRONICS RESEARCH ENGINEER-Amairani Kim POWER ELECTRONICS RESEARCH ENGINEER Work Phone: [facility] 09-30-2022 14:59-0400 Systolic blood pressure 136 mm[Hg] POWER ELECTRONICS RESEARCH ENGINEER-Amairani Kim POWER ELECTRONICS RESEARCH ENGINEER Work Phone: [facility] 09-24-2022 15:14-0400 Body height 171.5 cm Josh Mancuso MD Work Phone: [facility] 09-24-2022 15:14-0400 Body mass index (BMI) [Ratio] 35.56 kg/m2 Josh Mancuso MD Work Phone: [facility] 09-24-2022 15:14-0400 Body temperature 98.01 [degF] Josh Mancuso MD Work Phone: [facility] 09-24-2022 15:14-0400 Body weight 104.6 kg Josh Mancuso MD Work Phone: [facility] 09-24-2022 15:14-0400 Diastolic blood pressure 62 mm[Hg] Josh Mancuso MD Work Phone: [facility] 09-24-2022 15:14-0400 Heart rate 95 /min Josh Mancuso MD Work Phone: [facility] 09-24-2022 15:14-0400 Respiratory rate 16 /min Josh Mancuso MD Work Phone: [facility] 09-24-2022 15:14-0400 SaO2% (BldA) [Mass fraction] 99 % Josh Mancuso MD Work Phone: [facility] 09-24-2022 15:14-0400 Systolic blood pressure 131 mm[Hg] Josh Mancuso MD Work Phone: [facility] 09-19-2022 08:17-0400 Body mass index (BMI) [Ratio] 40 kg/m2 POWER ELECTRONICS RESEARCH ENGINEER-C Maida Kim POWER ELECTRONICS RESEARCH ENGINEER Work Phone: [facility] 09-19-2022 08:17-0400 Body temperature 98.4 [degF] POWER ELECTRONICS RESEARCH ENGINEER-C Maida Kim POWER ELECTRONICS RESEARCH ENGINEER Work Phone: [facility] 09-19-2022 08:17-0400 Body weight 105.88 kg POWER ELECTRONICS RESEARCH ENGINEER-C Maida Kim POWER ELECTRONICS RESEARCH ENGINEER Work Phone: [facility] 09-19-2022 08:17-0400 Diastolic blood pressure 81 mm[Hg] POWER ELECTRONICS RESEARCH ENGINEER-C Maida Kim POWER ELECTRONICS RESEARCH ENGINEER Work Phone: [facility] 09-19-2022 08:17-0400 Heart rate 94 /min POWER ELECTRONICS RESEARCH ENGINEER-C Maida Kim POWER ELECTRONICS RESEARCH ENGINEER Work Phone: [facility] 09-19-2022 08:17-0400 Respiratory rate 18 /min POWER ELECTRONICS RESEARCH ENGINEER-C Maida Kim POWER ELECTRONICS RESEARCH ENGINEER Work Phone: [facility] 09-19-2022 08:17-0400 SaO2% (BldA) [Mass fraction] 98 % POWER ELECTRONICS RESEARCH ENGINEER-C Maida Kim POWER ELECTRONICS RESEARCH ENGINEER Work Phone: [facility] 09-19-2022 08:17-0400 Systolic blood pressure 138 mm[Hg] POWER ELECTRONICS RESEARCH ENGINEER-C Maida Kim POWER ELECTRONICS RESEARCH ENGINEER Work Phone: [facility] 08-29-2022 08:31-0400 Body mass index (BMI) [Ratio] 35.2 kg/m2 POWER ELECTRONICS RESEARCH ENGINEER-C Maida Kim POWER ELECTRONICS RESEARCH ENGINEER Work Phone: [facility] 08-29-2022 08:31-0400 Body temperature 98.3 [degF] POWER ELECTRONICS RESEARCH ENGINEER-C Maida Kim POWER ELECTRONICS RESEARCH ENGINEER Work Phone: [facility] 08-29-2022 08:31-0400 Body weight 105.26 kg POWER ELECTRONICS RESEARCH ENGINEER-C Maida Kim POWER ELECTRONICS RESEARCH ENGINEER Work Phone: [facility] 08-29-2022 08:31-0400 Diastolic blood pressure 85 mm[Hg] POWER ELECTRONICS RESEARCH ENGINEER-C Maida Kim POWER ELECTRONICS RESEARCH ENGINEER Work Phone: [facility] 08-29-2022 08:31-0400 Heart rate 88 /min POWER ELECTRONICS RESEARCH ENGINEER-C Maida Kim POWER ELECTRONICS RESEARCH ENGINEER Work Phone: [facility] 08-29-2022 08:31-0400 Respiratory rate 17 /min POWER ELECTRONICS RESEARCH ENGINEER-C Maida Kim POWER ELECTRONICS RESEARCH ENGINEER Work Phone: [facility] 08-29-2022 08:31-0400 SaO2% (BldA) [Mass fraction] 95 % POWER ELECTRONICS RESEARCH ENGINEER-C Maida Kim POWER ELECTRONICS RESEARCH ENGINEER Work Phone: [facility] 08-29-2022 08:31-0400 Systolic blood pressure 145 mm[Hg] POWER ELECTRONICS RESEARCH ENGINEER-C Maida Kim POWER ELECTRONICS RESEARCH ENGINEER Work Phone: [facility] 08-22-2022 08:59-0400 Body height 172.72 cm POWER ELECTRONICS RESEARCH ENGINEER-C Maida Kim POWER ELECTRONICS RESEARCH ENGINEER Work Phone: [facility] 08-22-2022 08:59-0400 Body mass index (BMI) [Ratio] 35.3 kg/m2 POWER ELECTRONICS RESEARCH ENGINEER-C Maida Kim POWER ELECTRONICS RESEARCH ENGINEER Work Phone: [facility] 08-22-2022 08:59-0400 Body temperature 97.5 [degF] POWER ELECTRONICS RESEARCH ENGINEER-C Maida Kim POWER ELECTRONICS RESEARCH ENGINEER Work Phone: [facility] 08-22-2022 08:59-0400 Body weight 105.48 kg POWER ELECTRONICS RESEARCH ENGINEER-C Maida Kim POWER ELECTRONICS RESEARCH ENGINEER Work Phone: [facility] 08-22-2022 08:59-0400 Diastolic blood pressure 82 mm[Hg] POWER ELECTRONICS RESEARCH ENGINEER-C Maida Kim POWER ELECTRONICS RESEARCH ENGINEER Work Phone: [facility] 08-22-2022 08:59-0400 Heart rate 82 /min POWER ELECTRONICS RESEARCH ENGINEER-C Maida Kim POWER ELECTRONICS RESEARCH ENGINEER Work Phone: [facility] 08-22-2022 08:59-0400 Respiratory rate 16 /min POWER ELECTRONICS RESEARCH ENGINEER-C Maida Clinemer POWER ELECTRONICS RESEARCH ENGINEER Work Phone: [facility] 08-22-2022 08:59-0400 SaO2% (BldA) [Mass fraction] 96 % POWER ELECTRONICS RESEARCH ENGINEER-C Maida Julio POWER ELECTRONICS RESEARCH ENGINEER Work Phone: [facility] 08-22-2022 08:59-0400 Systolic blood pressure 124 mm[Hg] POWER ELECTRONICS RESEARCH ENGINEER-C Maida Julio POWER ELECTRONICS RESEARCH ENGINEER Work Phone: [facility] 08-09-2022 14:23-0500 Body temperature 97.5 [degF] POWER ELECTRONICS RESEARCH ENGINEER-C Maida Julio POWER ELECTRONICS RESEARCH ENGINEER Work Phone: [facility] 08-09-2022 14:23-0500 Diastolic blood pressure 76 mm[Hg] POWER ELECTRONICS RESEARCH ENGINEER-C Maida Julio POWER ELECTRONICS RESEARCH ENGINEER Work Phone: [facility] 08-09-2022 14:23-0500 Heart rate 81 /min POWER ELECTRONICS RESEARCH ENGINEER-C Maida [place] POWER ELECTRONICS RESEARCH ENGINEER Work Phone: [facility] 08-09-2022 14:23-0500 Respiratory rate 16 /min POWER ELECTRONICS RESEARCH ENGINEER-C Maida [place] POWER ELECTRONICS RESEARCH ENGINEER Work Phone: [facility] 08-09-2022 14:23-0500 SaO2% (BldA) [Mass fraction] 98 % POWER ELECTRONICS RESEARCH ENGINEER-C Maida Julio POWER ELECTRONICS RESEARCH ENGINEER Work Phone: [facility] 08-09-2022 14:23-0500 Systolic blood pressure 130 mm[Hg] POWER ELECTRONICS RESEARCH ENGINEER-C Maida [place] POWER ELECTRONICS RESEARCH ENGINEER Work Phone: [facility] 08-08-2022 08:53-0500 Body height 172.72 cm POWER ELECTRONICS RESEARCH ENGINEER-C Maida Julio POWER ELECTRONICS RESEARCH ENGINEER Work Phone: [facility] 08-08-2022 08:53-0500 Body mass index (BMI) [Ratio] 35.2 kg/m2 POWER ELECTRONICS RESEARCH ENGINEER-C Maida [place] POWER ELECTRONICS RESEARCH ENGINEER Work Phone: [facility] 08-08-2022 08:53-0500 Body weight 104.92 kg POWER ELECTRONICS RESEARCH ENGINEER-C Maida Kim POWER ELECTRONICS RESEARCH ENGINEER Work Phone: [facility] 08-08-2022 08:27-0500 Body mass index (BMI) [Ratio] 35.2 kg/m2 POWER ELECTRONICS RESEARCH ENGINEER-C Maida Clinemer POWER ELECTRONICS RESEARCH ENGINEER Work Phone: [facility] 08-08-2022 08:27-0500 Body temperature 98 [degF] POWER ELECTRONICS RESEARCH ENGINEER-C Maida Kim POWER ELECTRONICS RESEARCH ENGINEER Work Phone: [facility] 08-08-2022 08:27-0500 Body weight 104.92 kg POWER ELECTRONICS RESEARCH ENGINEER-C Maida Kim POWER ELECTRONICS RESEARCH ENGINEER Work Phone: [facility] 08-08-2022 08:27-0500 Diastolic blood pressure 77 mm[Hg] POWER ELECTRONICS RESEARCH ENGINEER-C Maida Kim POWER ELECTRONICS RESEARCH ENGINEER Work Phone: [facility] 08-08-2022 08:27-0500 Heart rate 80 /min POWER ELECTRONICS RESEARCH ENGINEER-C Maida Kim POWER ELECTRONICS RESEARCH ENGINEER Work Phone: [facility] 08-08-2022 08:27-0500 Respiratory rate 16 /min POWER ELECTRONICS RESEARCH ENGINEER-C Maida Kim POWER ELECTRONICS RESEARCH ENGINEER Work Phone: [facility] 08-08-2022 08:27-0500 SaO2% (BldA) [Mass fraction] 97 % POWER ELECTRONICS RESEARCH ENGINEER-C Maida Kim POWER ELECTRONICS RESEARCH ENGINEER Work Phone: [facility] 08-08-2022 08:27-0500 Systolic blood pressure 120 mm[Hg] POWER ELECTRONICS RESEARCH ENGINEER-C Maida Kim POWER ELECTRONICS RESEARCH ENGINEER Work Phone: [facility] 08-01-2022 13:55-0500 Body height 172.72 cm POWER ELECTRONICS RESEARCH ENGINEER-C Maida Kim POWER ELECTRONICS RESEARCH ENGINEER Work Phone: [facility] 08-01-2022 13:54-0500 Body temperature 98.3 [degF] POWER ELECTRONICS RESEARCH ENGINEER-C Maida Kim POWER ELECTRONICS RESEARCH ENGINEER Work Phone: [facility] 08-01-2022 13:54-0500 Diastolic blood pressure 84 mm[Hg] POWER ELECTRONICS RESEARCH ENGINEER-C Maida Kim POWER ELECTRONICS RESEARCH ENGINEER Work Phone: [facility] 08-01-2022 13:54-0500 Heart rate 80 /min POWER ELECTRONICS RESEARCH ENGINEER-C Maida Kim POWER ELECTRONICS RESEARCH ENGINEER Work Phone: [facility] 08-01-2022 13:54-0500 Inhaled oxygen flow rate 0 L/min POWER ELECTRONICS RESEARCH ENGINEER-C Maida Kim POWER ELECTRONICS RESEARCH ENGINEER Work Phone: [facility] 08-01-2022 13:54-0500 Respiratory rate 16 /min POWER ELECTRONICS RESEARCH ENGINEER-C Maida Kim POWER ELECTRONICS RESEARCH ENGINEER Work Phone: [facility] 08-01-2022 13:54-0500 SaO2% (BldA) [Mass fraction] 97 % POWER ELECTRONICS RESEARCH ENGINEER-C Maida Kim POWER ELECTRONICS RESEARCH ENGINEER Work Phone: [facility] 08-01-2022 13:54-0500 Systolic blood pressure 125 mm[Hg] POWER ELECTRONICS RESEARCH ENGINEER-C Maida Kim POWER ELECTRONICS RESEARCH ENGINEER Work Phone: [facility] 07-18-2022 12:53-0500 Diastolic blood pressure 81 mm[Hg] POWER ELECTRONICS RESEARCH ENGINEER-C Maida Kim POWER ELECTRONICS RESEARCH ENGINEER Work Phone: [facility] 07-18-2022 12:53-0500 Heart rate 87 /min POWER ELECTRONICS RESEARCH ENGINEER-C Maida Kim POWER ELECTRONICS RESEARCH ENGINEER Work Phone: [facility] 07-18-2022 12:53-0500 Respiratory rate 16 /min POWER ELECTRONICS RESEARCH ENGINEER-C Maida Kim POWER ELECTRONICS RESEARCH ENGINEER Work Phone: [facility] 07-18-2022 12:53-0500 Systolic blood pressure 120 mm[Hg] POWER ELECTRONICS RESEARCH ENGINEER-C Maida Kim POWER ELECTRONICS RESEARCH ENGINEER Work Phone: [facility] 07-18-2022 08:55-0500 Body mass index (BMI) [Ratio] 35.1 kg/m2 POWER ELECTRONICS RESEARCH ENGINEER-C Maida Kim POWER ELECTRONICS RESEARCH ENGINEER Work Phone: [facility] 07-18-2022 08:55-0500 Body weight 104.78 kg POWER ELECTRONICS RESEARCH ENGINEER-C Maida Kim POWER ELECTRONICS RESEARCH ENGINEER Work Phone: [facility] 07-18-2022 08:19-0500 Body mass index (BMI) [Ratio] 35.1 kg/m2 POWER ELECTRONICS RESEARCH ENGINEER-C Maida Kim POWER ELECTRONICS RESEARCH ENGINEER Work Phone: [facility] 07-18-2022 08:19-0500 Body temperature 98.1 [degF] POWER ELECTRONICS RESEARCH ENGINEER-C Maida Clinemer POWER ELECTRONICS RESEARCH ENGINEER Work Phone: [facility] 07-18-2022 08:19-0500 Body weight 104.77 kg POWER ELECTRONICS RESEARCH ENGINEER-C Maida Clinemer POWER ELECTRONICS RESEARCH ENGINEER Work Phone: [facility] 07-18-2022 08:19-0500 Diastolic blood pressure 77 mm[Hg] POWER ELECTRONICS RESEARCH ENGINEER-C Maida Kim POWER ELECTRONICS RESEARCH ENGINEER Work Phone: [facility] 07-18-2022 08:19-0500 Heart rate 88 /min POWER ELECTRONICS RESEARCH ENGINEER-C Maida Kim POWER ELECTRONICS RESEARCH ENGINEER Work Phone: [facility] 07-18-2022 08:19-0500 Respiratory rate 17 /min POWER ELECTRONICS RESEARCH ENGINEER-C Maida Clinemer POWER ELECTRONICS RESEARCH ENGINEER Work Phone: [facility] 07-18-2022 08:19-0500 SaO2% (BldA) [Mass fraction] 98 % POWER ELECTRONICS RESEARCH ENGINEER-C Maida Kim POWER ELECTRONICS RESEARCH ENGINEER Work Phone: [facility] 07-18-2022 08:19-0500 Systolic blood pressure 129 mm[Hg] POWER ELECTRONICS RESEARCH ENGINEER-C Maida Kim POWER ELECTRONICS RESEARCH ENGINEER Work Phone: [facility] 07-11-2022 10:52-0500 Body mass index (BMI) [Ratio] 35.2 kg/m2 POWER ELECTRONICS RESEARCH ENGINEER-C Maida Kim POWER ELECTRONICS RESEARCH ENGINEER Work Phone: [facility] 07-11-2022 10:52-0500 Body temperature 98.5 [degF] POWER ELECTRONICS RESEARCH ENGINEER-C Maida Clinemer POWER ELECTRONICS RESEARCH ENGINEER Work Phone: [facility] 07-11-2022 10:52-0500 Body weight 105.23 kg POWER ELECTRONICS RESEARCH ENGINEER-C Maida Kim POWER ELECTRONICS RESEARCH ENGINEER Work Phone: [facility] 07-11-2022 10:52-0500 Diastolic blood pressure 79 mm[Hg] POWER ELECTRONICS RESEARCH ENGINEER-C Maida [place] POWER ELECTRONICS RESEARCH ENGINEER Work Phone: [facility] 07-11-2022 10:52-0500 Heart rate 90 /min POWER ELECTRONICS RESEARCH ENGINEER-C Maida [place] POWER ELECTRONICS RESEARCH ENGINEER Work Phone: [facility] 07-11-2022 10:52-0500 Respiratory rate 17 /min POWER ELECTRONICS RESEARCH ENGINEER-C Maida [place] POWER ELECTRONICS RESEARCH ENGINEER Work Phone: [facility] 07-11-2022 10:52-0500 SaO2% (BldA) [Mass fraction] 98 % POWER ELECTRONICS RESEARCH ENGINEER-C Maida Julio POWER ELECTRONICS RESEARCH ENGINEER Work Phone: [facility] 07-11-2022 10:52-0500 Systolic blood pressure 144 mm[Hg] POWER ELECTRONICS RESEARCH ENGINEER-C Maida Julio POWER ELECTRONICS RESEARCH ENGINEER Work Phone: [facility] 06-28-2022 15:04-0500 Body temperature 97.3 [degF] POWER ELECTRONICS RESEARCH ENGINEER-C Maida [place] POWER ELECTRONICS RESEARCH ENGINEER Work Phone: [facility] 06-28-2022 15:04-0500 Diastolic blood pressure 81 mm[Hg] POWER ELECTRONICS RESEARCH ENGINEER-C Maida [place] POWER ELECTRONICS RESEARCH ENGINEER Work Phone: [facility] 06-28-2022 15:04-0500 Respiratory rate 16 /min POWER ELECTRONICS RESEARCH ENGINEER-C Maida Julio POWER ELECTRONICS RESEARCH ENGINEER Work Phone: [facility] 06-28-2022 15:04-0500 SaO2% (BldA) [Mass fraction] 97 % POWER ELECTRONICS RESEARCH ENGINEER-C Maida [place] POWER ELECTRONICS RESEARCH ENGINEER Work Phone: [facility] 06-28-2022 15:04-0500 Systolic blood pressure 153 mm[Hg] POWER ELECTRONICS RESEARCH ENGINEER-C Maida [place] POWER ELECTRONICS RESEARCH ENGINEER Work Phone: [facility] 06-27-2022 16:29-0500 Body temperature 98.3 [degF] POWER ELECTRONICS RESEARCH ENGINEER-C Maida Julio POWER ELECTRONICS RESEARCH ENGINEER Work Phone: [facility] 06-27-2022 16:29-0500 Diastolic blood pressure 72 mm[Hg] POWER ELECTRONICS RESEARCH ENGINEER-C Maida [place] POWER ELECTRONICS RESEARCH ENGINEER Work Phone: [facility] 06-27-2022 16:29-0500 Heart rate 88 /min POWER ELECTRONICS RESEARCH ENGINEER-C Maida Kim POWER ELECTRONICS RESEARCH ENGINEER Work Phone: [facility] 06-27-2022 16:29-0500 Respiratory rate 16 /min POWER ELECTRONICS RESEARCH ENGINEER-C Maida Julio POWER ELECTRONICS RESEARCH ENGINEER Work Phone: [facility] 06-27-2022 16:29-0500 SaO2% (BldA) [Mass fraction] 94 % POWER ELECTRONICS RESEARCH ENGINEER-C Maida Kim POWER ELECTRONICS RESEARCH ENGINEER Work Phone: [facility] 06-27-2022 16:29-0500 Systolic blood pressure 149 mm[Hg] POWER ELECTRONICS RESEARCH ENGINEER-C Maida Kim POWER ELECTRONICS RESEARCH ENGINEER Work Phone: [facility] 06-27-2022 08:50-0500 Body height 172.72 cm POWER ELECTRONICS RESEARCH ENGINEER-C Maida Kim POWER ELECTRONICS RESEARCH ENGINEER Work Phone: [facility] 06-27-2022 08:50-0500 Body mass index (BMI) [Ratio] 35.4 kg/m2 POWER ELECTRONICS RESEARCH ENGINEER-C Maida Kim POWER ELECTRONICS RESEARCH ENGINEER Work Phone: [facility] 06-27-2022 08:50-0500 Body weight 105.82 kg POWER ELECTRONICS RESEARCH ENGINEER-C Maida Kim POWER ELECTRONICS RESEARCH ENGINEER Work Phone: [facility] 06-27-2022 08:19-0500 Body mass index (BMI) [Ratio] 35.4 kg/m2 POWER ELECTRONICS RESEARCH ENGINEER-C Maida Kim POWER ELECTRONICS RESEARCH ENGINEER Work Phone: [facility] 06-27-2022 08:19-0500 Body temperature 98.2 [degF] POWER ELECTRONICS RESEARCH ENGINEER-C Maida Kim POWER ELECTRONICS RESEARCH ENGINEER Work Phone: [facility] 06-27-2022 08:19-0500 Body weight 105.82 kg POWER ELECTRONICS RESEARCH ENGINEER-C Maida Kim POWER ELECTRONICS RESEARCH ENGINEER Work Phone: [facility] 06-27-2022 08:19-0500 Diastolic blood pressure 84 mm[Hg] POWER ELECTRONICS RESEARCH ENGINEER-C Maida Kim POWER ELECTRONICS RESEARCH ENGINEER Work Phone: [facility] 06-27-2022 08:19-0500 Heart rate 84 /min POWER ELECTRONICS RESEARCH ENGINEER-C Maida Kim POWER ELECTRONICS RESEARCH ENGINEER Work Phone: [facility] 06-27-2022 08:19-0500 Respiratory rate 16 /min POWER ELECTRONICS RESEARCH ENGINEER-C Maida Julio POWER ELECTRONICS RESEARCH ENGINEER Work Phone: [facility] 06-27-2022 08:19-0500 SaO2% (BldA) [Mass fraction] 98 % POWER ELECTRONICS RESEARCH ENGINEER-C Maida Kim POWER ELECTRONICS RESEARCH ENGINEER Work Phone: [facility] 06-27-2022 08:19-0500 Systolic blood pressure 138 mm[Hg] POWER ELECTRONICS RESEARCH ENGINEER-C Maida Kim POWER ELECTRONICS RESEARCH ENGINEER Work Phone: [facility] 06-26-2022 08:06-0500 Body mass index (BMI) [Ratio] 35.4 kg/m2 POWER ELECTRONICS RESEARCH ENGINEER-C Maida Kim POWER ELECTRONICS RESEARCH ENGINEER Work Phone: [facility] 06-26-2022 08:06-0500 Body temperature 98.3 [degF] POWER ELECTRONICS RESEARCH ENGINEER-C Maida Kim POWER ELECTRONICS RESEARCH ENGINEER Work Phone: [facility] 06-26-2022 08:06-0500 Body weight 105.8 kg POWER ELECTRONICS RESEARCH ENGINEER-C Maida Kim POWER ELECTRONICS RESEARCH ENGINEER Work Phone: [facility] 06-26-2022 08:06-0500 Diastolic blood pressure 81 mm[Hg] POWER ELECTRONICS RESEARCH ENGINEER-C Maida Kim POWER ELECTRONICS RESEARCH ENGINEER Work Phone: [facility] 06-26-2022 08:06-0500 Heart rate 91 /min POWER ELECTRONICS RESEARCH ENGINEER-C Maida Kim POWER ELECTRONICS RESEARCH ENGINEER Work Phone: [facility] 06-26-2022 08:06-0500 Respiratory rate 16 /min POWER ELECTRONICS RESEARCH ENGINEER-C Maida Kim POWER ELECTRONICS RESEARCH ENGINEER Work Phone: [facility] 06-26-2022 08:06-0500 SaO2% (BldA) [Mass fraction] 97 % POWER ELECTRONICS RESEARCH ENGINEER-C Maida Kim POWER ELECTRONICS RESEARCH ENGINEER Work Phone: [facility] 06-26-2022 08:06-0500 Systolic blood pressure 129 mm[Hg] POWER ELECTRONICS RESEARCH ENGINEER-C Maida Kim POWER ELECTRONICS RESEARCH ENGINEER Work Phone: [facility] 06-17-2022 14:07-0500 Body temperature 98.5 [degF] POWER ELECTRONICS RESEARCH ENGINEER-C Maida [place] POWER ELECTRONICS RESEARCH ENGINEER Work Phone: [facility] 06-17-2022 14:07-0500 Diastolic blood pressure 73 mm[Hg] POWER ELECTRONICS RESEARCH ENGINEER-C Maida Clinemer POWER ELECTRONICS RESEARCH ENGINEER Work Phone: [facility] 06-17-2022 14:07-0500 Heart rate 84 /min POWER ELECTRONICS RESEARCH ENGINEER-C Maida Julio POWER ELECTRONICS RESEARCH ENGINEER Work Phone: [facility] 06-17-2022 14:07-0500 Respiratory rate 16 /min POWER ELECTRONICS RESEARCH ENGINEER-C Maida Julio POWER ELECTRONICS RESEARCH ENGINEER Work Phone: [facility] 06-17-2022 14:07-0500 SaO2% (BldA) [Mass fraction] 93 % POWER ELECTRONICS RESEARCH ENGINEER-C Maida Kim POWER ELECTRONICS RESEARCH ENGINEER Work Phone: [facility] 06-17-2022 14:07-0500 Systolic blood pressure 129 mm[Hg] POWER ELECTRONICS RESEARCH ENGINEER-C Maida Julio POWER ELECTRONICS RESEARCH ENGINEER Work Phone: [facility] 06-17-2022 09:37-0500 Body height 172.72 cm POWER ELECTRONICS RESEARCH ENGINEER-C Maida Kim POWER ELECTRONICS RESEARCH ENGINEER Work Phone: [facility] Work Phone: 06-17-2022 09:37-0500 Body mass index (BMI) [Ratio] 36 kg/m2 POWER ELECTRONICS RESEARCH ENGINEER-C Maida Kim POWER ELECTRONICS RESEARCH ENGINEER Work Phone: [facility] 06-17-2022 09:37-0500 Body weight 107.5 kg POWER ELECTRONICS RESEARCH ENGINEER-C Maida Kim POWER ELECTRONICS RESEARCH ENGINEER Work Phone: [facility] 06-13-2022 12:58-0500 Body mass index (BMI) [Ratio] 35.6 kg/m2 POWER ELECTRONICS RESEARCH ENGINEER-C Maida Clinemer POWER ELECTRONICS RESEARCH ENGINEER Work Phone: [facility] 06-13-2022 12:58-0500 Body temperature 98.5 [degF] POWER ELECTRONICS RESEARCH ENGINEER-C Maida [place] POWER ELECTRONICS RESEARCH ENGINEER Work Phone: [facility] 06-13-2022 12:58-0500 Body weight 106.19 kg POWER ELECTRONICS RESEARCH ENGINEER-C Maida Julio POWER ELECTRONICS RESEARCH ENGINEER Work Phone: [facility] 06-13-2022 12:58-0500 Diastolic blood pressure 84 mm[Hg] POWER ELECTRONICS RESEARCH ENGINEER-C Maida Julio POWER ELECTRONICS RESEARCH ENGINEER Work Phone: [facility] 06-13-2022 12:58-0500 Heart rate 98 /min POWER ELECTRONICS RESEARCH ENGINEER-C Maida [place] POWER ELECTRONICS RESEARCH ENGINEER Work Phone: [facility] 06-13-2022 12:58-0500 Respiratory rate 18 /min POWER ELECTRONICS RESEARCH ENGINEER-C Maida [place] POWER ELECTRONICS RESEARCH ENGINEER Work Phone: [facility] 06-13-2022 12:58-0500 SaO2% (BldA) [Mass fraction] 97 % POWER ELECTRONICS RESEARCH ENGINEER-C Maida Julio POWER ELECTRONICS RESEARCH ENGINEER Work Phone: [facility] 06-13-2022 12:58-0500 Systolic blood pressure 135 mm[Hg] POWER ELECTRONICS RESEARCH ENGINEER-C Maida [place] POWER ELECTRONICS RESEARCH ENGINEER Work Phone: [facility] 05-24-2022 11:47-0500 Body temperature 98 [degF] POWER ELECTRONICS RESEARCH ENGINEER-C Maida Julio POWER ELECTRONICS RESEARCH ENGINEER Work Phone: [facility] 05-24-2022 11:47-0500 Diastolic blood pressure 61 mm[Hg] POWER ELECTRONICS RESEARCH ENGINEER-C Maida [place] POWER ELECTRONICS RESEARCH ENGINEER Work Phone: [facility] 05-24-2022 11:47-0500 Heart rate 84 /min POWER ELECTRONICS RESEARCH ENGINEER-C Maida [place] POWER ELECTRONICS RESEARCH ENGINEER Work Phone: [facility] 05-24-2022 11:47-0500 Respiratory rate 16 /min POWER ELECTRONICS RESEARCH ENGINEER-C Maida [place] POWER ELECTRONICS RESEARCH ENGINEER Work Phone: [facility] 05-24-2022 11:47-0500 SaO2% (BldA) [Mass fraction] 98 % POWER ELECTRONICS RESEARCH ENGINEER-C Maida [place] POWER ELECTRONICS RESEARCH ENGINEER Work Phone: [facility] 05-24-2022 11:47-0500 Systolic blood pressure 136 mm[Hg] POWER ELECTRONICS RESEARCH ENGINEER-C Maida [place] POWER ELECTRONICS RESEARCH ENGINEER Work Phone: [facility] 05-24-2022 10:23-0500 Body height 172.72 cm POWER ELECTRONICS RESEARCH ENGINEER-C Maida [place] POWER ELECTRONICS RESEARCH ENGINEER Work Phone: [facility] Work Phone: 05-24-2022 09:24-0500 Body temperature 96.8 [degF] POWER ELECTRONICS RESEARCH ENGINEER-C Maida Julio POWER ELECTRONICS RESEARCH ENGINEER Work Phone: [facility] 05-24-2022 09:24-0500 Diastolic blood pressure 74 mm[Hg] POWER ELECTRONICS RESEARCH ENGINEER-C Maida Julio POWER ELECTRONICS RESEARCH ENGINEER Work Phone: [facility] 05-24-2022 09:24-0500 Heart rate 95 /min POWER ELECTRONICS RESEARCH ENGINEER-C Maida [place] POWER ELECTRONICS RESEARCH ENGINEER Work Phone: [facility] 05-24-2022 09:24-0500 Respiratory rate 17 /min POWER ELECTRONICS RESEARCH ENGINEER-C Maida Julio POWER ELECTRONICS RESEARCH ENGINEER Work Phone: [facility] 05-24-2022 09:24-0500 SaO2% (BldA) [Mass fraction] 97 % POWER ELECTRONICS RESEARCH ENGINEER-C Maida [place] POWER ELECTRONICS RESEARCH ENGINEER Work Phone: [facility] 05-24-2022 09:24-0500 Systolic blood pressure 114 mm[Hg] POWER ELECTRONICS RESEARCH ENGINEER-C Maida Julio POWER ELECTRONICS RESEARCH ENGINEER Work Phone: [facility] 05-23-2022 05:37-0500 Heart rate 92 /min POWER ELECTRONICS RESEARCH ENGINEER-C Maida Julio POWER ELECTRONICS RESEARCH ENGINEER Work Phone: [facility] 05-23-2022 05:37-0500 Respiratory rate 24 /min POWER ELECTRONICS RESEARCH ENGINEER-C Maida [place] POWER ELECTRONICS RESEARCH ENGINEER Work Phone: [facility] 05-23-2022 05:37-0500 SaO2% (BldA) [Mass fraction] 100 % POWER ELECTRONICS RESEARCH ENGINEER-C Maida Kim POWER ELECTRONICS RESEARCH ENGINEER Work Phone: [facility] 05-23-2022 04:45-0500 Diastolic blood pressure 66 mm[Hg] POWER ELECTRONICS RESEARCH ENGINEER-C Maida Julio POWER ELECTRONICS RESEARCH ENGINEER Work Phone: [facility] 05-23-2022 04:45-0500 Systolic blood pressure 119 mm[Hg] POWER ELECTRONICS RESEARCH ENGINEER-C Maida Clinemer POWER ELECTRONICS RESEARCH ENGINEER Work Phone: [facility] 05-23-2022 02:22-0500 Body temperature 98 [degF] POWER ELECTRONICS RESEARCH ENGINEER-C Maida [place] POWER ELECTRONICS RESEARCH ENGINEER Work Phone: [facility] 05-23-2022 02:13-0500 Body mass index (BMI) [Ratio] 37 kg/m2 POWER ELECTRONICS RESEARCH ENGINEER-C Amida [place] POWER ELECTRONICS RESEARCH ENGINEER Work Phone: [facility] 05-23-2022 02:13-0500 Body weight 113.9 kg POWER ELECTRONICS RESEARCH ENGINEER-C Maida Clinemer POWER ELECTRONICS RESEARCH ENGINEER Work Phone: [facility] 01-02-2022 10:56-0400 Body height 175.26 cm POWER ELECTRONICS RESEARCH ENGINEER-C Maida Julio POWER ELECTRONICS RESEARCH ENGINEER Work Phone: [facility] Work Phone: 01-02-2022 10:56-0400 Body weight 107.04 kg POWER ELECTRONICS RESEARCH ENGINEER-C Maida Julio POWER ELECTRONICS RESEARCH ENGINEER Work Phone: [facility] Work Phone: 12-06-2021 09:04-0400 Body mass index (BMI) [Ratio] 35.2 kg/m2 POWER ELECTRONICS RESEARCH ENGINEER-C Maida Julio POWER ELECTRONICS RESEARCH ENGINEER Work Phone: [facility] Work Phone: 12-06-2021 09:04-0400 Body weight 108.4 kg POWER ELECTRONICS RESEARCH ENGINEER-C Maida Julio POWER ELECTRONICS RESEARCH ENGINEER Work Phone: [facility] Work Phone: Encounters Encounter Date Encounter Type Care Provider Facility Start: 03-29-2025 [facility] Facility:[facility] Start: 03-24-2025 Encounter for genera l adult medical examination without abnormal findings Blue BERMUDEZ [facility] Start: 03-24-2025 End: 03-24-2025 ambulatory Cristóbal Ford Facility:[facility] Start: 03-23-2025 End: 03-23-2025 ambulatory Blue BERMUDEZ Facility:[facility] Start: 03-10-2025 Registered Recurring Genna Zuniga POWER ELECTRONICS RESEARCH ENGINEER-C -[facility] Start: 03-10-2025 End: 03-10-[address] Cristóbal Ford MD -[facility] Work Phone: Start: 03-10-2025 End: 03-10-2025 ambulatory Blue BERMUDEZ Work Phone: -[facility] Start: 2025 ambulatory Blue BERMUDEZ Facilit y:[facility] Start: 2025 Non-patient / Non-visit [facility] Bereket [facility] Start: 2025 Patient encounter procedure Genna Aleksander POWER ELECTRONICS RESEARCH ENGINEER-C -[facility] Work Phone: Start: 2025 End: 2025 ambulatory Genna Zuniga NP Facility:[facility] Start: 02-17-2025 Registered Recurring Genna Aleksander POWER ELECTRONICS RESEARCH ENGINEER-C -[facility] Start: 02-17-2025 End: 02-17-2025 Patient encounter procedure Genna Aleksander POWER ELECTRONICS RESEARCH ENGINEER-C -[facility] Work Phone: Start: 02-17-2025 End: 02-17-2025 ambulatory Blue BERMUDEZ Work Phone: -[facility] Start: 02-02-2025 End: 02-02-2025 Patient encounter procedure Blue BERMUDEZ -[facility] Work Phone: Start: 02-02-2025 End: 02-02-2025 ambulatory Blue BERMUDEZ Work Phone: -[facility] Start: 01-27-2025 End: 01-27-2025 Patient encounter procedure Genna Zuniga POWER ELECTRONICS RESEARCH ENGINEER-C -[facility] Work Phone: Start: 01-27-2025 End: 01-27-2025 ambulatory Blue Wayt PA Work Phone: -[facility] Start: 01-27-2025 Registered Recurring Genna Zuniga POWER ELECTRONICS RESEARCH ENGINEER-C -[facility] Start: 01-06-2025 End: 01-06-[address] Cristóbal Ford MD -[facility] Work Phone: Start: 01-06-2025 End: 01-06-2025 ambulatory Blue Markt PA Work Phone: [facility] Start: 01-06-2025 Registered Recurring Genna Zuniga POWER ELECTRONICS RESEARCH ENGINEER-C -[facility] Start: 01-04-2025 End: 01-04-2025 Patient encounter procedure SYED ABRAHAM -[facility] Work Phone: Start: 01-04-2025 End: 01-04-2025 ambulatory Blue Wayt PA Work Phone: [facility] Start: 12-29-2024 End: 12-29-2024 Patient encounter procedure Blue BERMUDEZ -[facility] Work Phone: Start: 12-29-2024 End: 12-29-2024 ambulatory Blue Wayt PA Work Phone: -[facility] Start: 12-16-2024 Registered Recurring Genna Zuniga POWER ELECTRONICS RESEARCH ENGINEER-C -[facility] Start: 12-16-2024 End: 12-16-[address] Cristóbal Ford MD -[facility] Work Phone: Start: 12-16-2024 End: 12-16-2024 ambulatory Blue Alicia PA Work Phone: [facility] Start: 12-02-2024 Non-patient / Non-visit Dr. Bereket NOONAN -[facility] Start: 12-02-2024 End: 12-02-2024 ambulatory Blue Alicia PA Work Phone: -[facility] Start: 12-02-2024 End: 12-02-[address] Cristóbal Ford MD -[facility] Work Phone: Start: 12-02-2024 End: 12-02-2024 ambulatory Blue BERMUDEZ Facility:[facility] Start: 11-25-2024 End: 11-25-[address] Cristóbal Ford MD -[facility] Work Phone: Start: 11-25-2024 End: 11-25-2024 ambulatory Blue BERMUDEZ Work Phone: [facility] Work Phone: Start: 11-25-2024 Registered Recurring Genna Aleksander POWER ELECTRONICS RESEARCH ENGINEER-C -[facility] Start: 11-04-2024 End: 11-04-[address] Cristóbal Ford MD -[facility] Work Phone: Start: 11-04-2024 End: 11-04-2024 ambulatory Blue BERMUDEZ Facility:[facility] Start: 11-04-2024 Registered Recurring Genna Aleksander POWER ELECTRONICS RESEARCH ENGINEER-C -[facility] Start: 10-26-2024 End: 10-26-2024 Patient encounter procedure Dain BERMUDEZ -[facility] Work Phone: Start: 10-26-2024 End: 10-26-2024 Patient encounter procedure Dain BERMUDEZ -[facility] Work Phone: Start: 10-26-2024 End: 10-26-2024 ambulatory Blue BERMUDEZ Work Phone: [facility] Work Phone: Start: 10-26-2024 End: 10-26-2024 ambulatory Blue BERMUDEZ Facility:[facility] Start: 10-14-2024 Registered Recurring Genna Aleksander POWER ELECTRONICS RESEARCH ENGINEER-C -[facility] Start: 10-14-2024 End: 10-14-2024 Patient encounter procedure Genna Aleksander POWER ELECTRONICS RESEARCH ENGINEER-C -[facility] Work Phone: Start: 10-14-2024 End: 10-14-2024 ambulatory Genna Aleksander POWER ELECTRONICS RESEARCH ENGINEER Facility:[facility] Start: 09-23-2024 End: 09-23-2024 Patient encounter procedure Genna Aleksander POWER ELECTRONICS RESEARCH ENGINEER-C -[facility] Work Phone: Start: 09-23-2024 End: 09-23-2024 ambulatory Genna Aleksander POWER ELECTRONICS RESEARCH ENGINEER Facility:[facility] Start: 09-17-2024 End: 09-17-2024 ambulatory Maida Julio POWER ELECTRONICS RESEARCH ENGINEER-C Work Phone: [facility] Work Phone: Start: 09-17-2024 End: 09-17-[address] Dain Serrano MD -[facility] Work Phone: Start: 09-17-2024 End: 09-17-2024 ambulatory Dain Serrano Facility:[facility] Start: 09-02-[address] Cristóbal Ford MD -[facility] Start: 09-02-2024 End: 09-02-[address] Cristóbal Ford MD -[facility] Work Phone: Start: 09-02-2024 End: 09-02-2024 ambulatory Cristóbal Ford Facility:[facility] Start: 08-31-2024 Non-patient / Non-visit Dr. Bereket NOONAN -[facility] Start: 08-31-2024 End: 08-31-2024 ambulatory Maida Kim POWER ELECTRONICS RESEARCH ENGINEER-C Work Phone: [facility] Work Phone: Start: 08-31-2024 End: 08-31-2024 Patient encounter procedure Genna Aleksander POWER ELECTRONICS RESEARCH ENGINEER-C -[facility] Work Phone: Start: 08-31-2024 End: 08-31-2024 ambulatory Genna Aleksander POWER ELECTRONICS RESEARCH ENGINEER Facility:[facility] Start: 08-17-2024 End: 08-17-2024 ambulatory Maida Clinemer POWER ELECTRONICS RESEARCH ENGINEER-C Work Phone: [facility] Work Phone: Start: 08-17-2024 End: 08-17-2024 Patient encounter procedure Carly Carrasquillo PA -Laboratory, [facility] Start: 08-17-2024 End: 08-17-2024 ambulatory Blue BERMUDEZ Facility:[facility] Start: 08-12-2024 End: 08-12-2024 ambulatory Maida Kim POWER ELECTRONICS RESEARCH ENGINEER-C Work Phone: [facility] Work Phone: Start: 08-12-2024 End: 08-12-[address] Dain Serrano MD -Cat Scan, [facility] Work Phone: Start: 08-12-2024 Encounter for preprocedural cardiovascular examination Dain Serrano [facility] Start: 08-12-2024 End: 08-12-[address] Cristóbal Ford MD -[facility] Work Phone: Start: 08-12-2024 End: 08-12-[facility] Start: 08-12-[address] Cristóbal Ford MD -[facility] Start: 08-12-2024 End: 08-12-2024 ambulatory Dain Serrano Facility:[facility] Start: 07-22-2024 End: 07-22-2024 Patient encounter procedure Genna Zuniga NP-C -[facility] Work Phone: Start: 07-22-2024 End: 07-22-2024 ambulatory Genna Zuniga POWER ELECTRONICS RESEARCH ENGINEER Facility:[facility] Start: 07-22-2024 End: 07-22-2024 ambulatory Genna Zuniga POWER ELECTRONICS RESEARCH ENGINEER Facility:[facility] Start: 07-05-2024 End: 07-05-[address] Cristóbal Ford MD -[facility] Work Phone: Start: 07-05-2024 End: 07-05-2024 ambulatory Cristóbal Ford Facility:[facility] Start: 07-01-2024 End: 07-01-[address] Cristóbal Ford MD -[facility] Work Phone: Start: 07-01-2024 End: 07-01-2024 ambulatory Cristóbal Ford Facility:[facility] Start: 06-23-2024 End: 06-23-[address] Yvonne Hinojosa MD -[facility] Work Phone: Start: 06-23-2024 End: 06-23-2024 ambulatory Maida Kim POWER ELECTRONICS RESEARCH ENGINEER Facility:[facility] Start: 06-16-2024 End: 06-16-[address] Yvonne Hinojosa MD -Laboratory, Specimen Work Phone: Start: 06-16-2024 End: 06-16-[address] Yvonne Hinojosa MD -[facility] Work Phone: Start: 06-16-2024 End: 06-16-2024 ambulatory Maida Kim POWER ELECTRONICS RESEARCH ENGINEER Facility:[facility] Start: 06-15-2024 End: 06-15-[address] Cristóbal Ford MD [facility] Work Phone: Start: 06-15-2024 End: 06-16-2024 ambulatory Maida Kim POWER ELECTRONICS RESEARCH ENGINEER Facility:[facility] Start: 06-10-2024 End: 06-10-[address] Cristóbal Ford MD -[facility] Work Phone: Start: 06-10-2024 End: 06-10-2024 ambulatory Maida Kim POWER ELECTRONICS RESEARCH ENGINEER Facility:[facility] Start: 05-20-2024 End: 05-20-[address] Cristóbal Ford MD -[facility] Work Phone: Start: 05-20-2024 End: 05-20-2024 ambulatory Maida Julio POWER ELECTRONICS RESEARCH ENGINEER Facility:[facility] Start: 05-19-2024 ambulatory Maida Kim POWER ELECTRONICS RESEARCH ENGINEER Facil ity:[facility] Start: 05-19-2024 Non-patient / Non-visit Dr. Bereket NOONAN -[facility] Start: 05-19-2024 End: 05-19-2024 Patient encounter procedure Genna Zuniga NP-C -Cardi[facility] Services Work Phone: Start: 05-19-2024 End: 05-19-2024 ambulatory Genna Zuniga POWER ELECTRONICS RESEARCH ENGINEER Facility:[facility] Start: 04-29-2024 End: 04-29-2024 Patient encounter procedure Genna Zuniga POWER ELECTRONICS RESEARCH ENGINEER-C -[facility] Work Phone: Start: 04-29-2024 End: 04-29-2024 ambulatory Genna Zuniga POWER ELECTRONICS RESEARCH ENGINEER Facility:[facility] Start: 04-08-2024 End: 04-08-2024 ambulatory Maida Kim POWER ELECTRONICS RESEARCH ENGINEER Facility:[facility] Start: 02-24-2024 Preoperative state Maida hernandez POWER ELECTRONICS RESEARCH ENGINEER-C Work Phone: [facility] Start: 10-28-2023 End: 10-28-2023 ambulatory MAIDA JULIO [facility] Start: 10-28-2023 End: 10-28-2023 Postop follow up visit related to original px Gladis Rausch MD Work Phone: [facility] Comment on above: [...] 10-03-2023 [facility] Start: 09-02-2023 End: 09-02-2023 ambulatory GLADIS RAUSCH [facility] Start: 09-02-2023 End: 09-02-2023 Office outpatient visit 25 minutes Gladis Rausch MD Work Phone: [facility] Comment on above: Postmenopausal bleed ing (Primary Dx); Endometrial polyp Start: 08-14-2023 Non-patient / Non-visit POWER ELECTRONICS RESEARCH ENGINEER-C Gael Kim NP Work Phone: [facility] Start: 08-14-2023 End: 08-14-2023 ambulatory POWER ELECTRONICS RESEARCH ENGINEER-Amairani Kim POWER ELECTRONICS RESEARCH ENGINEER Work Phone: [facility] Work Phone: Start: 08-14-2023 End: 08-14-2023 Patient encounter procedure POWER ELECTRONICS RESEARCH ENGINEER-Amairani Kim POWER ELECTRONICS RESEARCH ENGINEER [facility] Start: 08-12-2023 End: 08-12-2023 ambulatory [facility] Start: 08-12-2023 End: 08-12-2023 Office outpatient visit 15 minutes Nikko Goldberg MD Work Phone: [facility] Comment on above: Postmenopausal bleed ing (Primary Dx); Care related to current tamoxifen use; Endometrial polyp Start: 07-31-2023 Registered Recurring POWER ELECTRONICS RESEARCH ENGINEER-Amairani Kim POWER ELECTRONICS RESEARCH ENGINEER Work Phone: [facility] Start: 07-31-2023 End: 07-31-2023 Patient encounter procedure POWER ELECTRONICS RESEARCH ENGINEER-Amairani Kim POWER ELECTRONICS RESEARCH ENGINEER Work Phone: [facility] Work Phone: Start: 06-26-2023 End: 06-26-2023 Patient encounter procedure POWER ELECTRONICS RESEARCH ENGINEER-Amairani Kim POWER ELECTRONICS RESEARCH ENGINEER Work Phone: [facility] Work Phone: Start: 06-20-2023 End: 06-20-2023 Patient encounter procedure POWER ELECTRONICS RESEARCH ENGINEER-Amairani Kim POWER ELECTRONICS RESEARCH ENGINEER Work Phone: [facility] Work Phone: Start: 06-05-2023 End: 06-05-2023 Patient encounter procedure POWER ELECTRONICS RESEARCH ENGINEER-Amairani Kim POWER ELECTRONICS RESEARCH ENGINEER Work Phone: [facility] Work Phone: Start: 05-15-2023 End: 05-15-2023 Patient encounter procedure POWER ELECTRONICS RESEARCH ENGINEER-C Maida Julio POWER ELECTRONICS RESEARCH ENGINEER Work Phone: [facility] Work Phone: Start: 05-13-2023 End: 05-13-2023 ambulatory [facility] Start: 05-13-2023 End: 05-13-2023 Office outpatient visit 15 minutes Nikko Goldberg MD Work Phone: [facility] Comment on above: Postmenopausal bleed ing (Primary Dx); Care related to current tamoxifen use; History of left breast cancer Start: 04-30-2023 End: 05-01-2023 ambulatory MAIDA KIM WAITER-[employer]IED [employer] TECHNICIAN Facility:[facility] Start: 04-29-2023 Non-patient / Non-visit POWER ELECTRONICS RESEARCH ENGINEER-C Gael Kim POWER ELECTRONICS RESEARCH ENGINEER Work Phone: [facility] Start: 04-29-2023 End: 04-29-2023 ambulatory POWER ELECTRONICS RESEARCH ENGINEER-Amairani Kim POWER ELECTRONICS RESEARCH ENGINEER Work Phone: [facility] Work Phone: Start: 04-29-2023 End: 04-29-2023 Patient encounter procedure POWER ELECTRONICS RESEARCH ENGINEER-Amairani Kim POWER ELECTRONICS RESEARCH ENGINEER Work Phone: [facility] [facility] Start: 04-24-2023 End: 04-24-2023 Patient encounter procedure POWER ELECTRONICS RESEARCH ENGINEER-Amairani Kim POWER ELECTRONICS RESEARCH ENGINEER Work Phone: [facility] Work Phone: Start: 04-24-2023 Registered Recurring POWER ELECTRONICS RESEARCH ENGINEER-Amairani Kim POWER ELECTRONICS RESEARCH ENGINEER Work Phone: [facility] Start: 04-24-2023 Non-patient / Non-visit POWER ELECTRONICS RESEARCH ENGINEER-C Gael Kim POWER ELECTRONICS RESEARCH ENGINEER Work Phone: [facility] Work Phone: Start: 04-03-2023 End: 04-03-2023 Patient encounter procedure POWER ELECTRONICS RESEARCH ENGINEER-Amairani Kim POWER ELECTRONICS RESEARCH ENGINEER [facility] Work Phone: Start: 03-27-2023 End: 03-27-2023 ambulatory POWER ELECTRONICS RESEARCH ENGINEER-C Maida Kim POWER ELECTRONICS RESEARCH ENGINEER Work Phone: [facility] Work Phone: Start: 03-27-2023 End: 03-27-2023 Patient encounter procedure POWER ELECTRONICS RESEARCH ENGINEER-C Maida Kim POWER ELECTRONICS RESEARCH ENGINEER Work Phone: [facility] Work Phone: Start: 03-13-2023 Registered Recurring POWER ELECTRONICS RESEARCH ENGINEER-C Kaya Kim POWER ELECTRONICS RESEARCH ENGINEER Work Phone: [facility] Start: 03-13-2023 End: 03-13-2023 Patient encounter procedure POWER ELECTRONICS RESEARCH ENGINEER-C Maida Kim POWER ELECTRONICS RESEARCH ENGINEER Work Phone: [facility] Work Phone: Start: 02-27-2023 End: 02-27-2023 Patient encounter procedure POWER ELECTRONICS RESEARCH ENGINEER-C Maida Kim POWER ELECTRONICS RESEARCH ENGINEER Work Phone: [facility] Work Phone: Start: 02-13-2023 End: 02-13-2023 Patient encounter procedure POWER ELECTRONICS RESEARCH ENGINEER-C Maida Kim POWER ELECTRONICS RESEARCH ENGINEER Work Phone: [facility] Work Phone: Start: 01-24-2023 Non-patient / Non-visit POWER ELECTRONICS RESEARCH ENGINEER-C Gael Kim POWER ELECTRONICS RESEARCH ENGINEER Work Phone: [facility] Start: 01-24-2023 End: 01-24-2023 ambulatory POWER ELECTRONICS RESEARCH ENGINEER-C Maida Kim POWER ELECTRONICS RESEARCH ENGINEER Work Phone: [facility] Work Phone: Start: 01-24-2023 End: 01-24-2023 Patient encounter procedure POWER ELECTRONICS RESEARCH ENGINEER-C Maida Kim POWER ELECTRONICS RESEARCH ENGINEER Work Phone: [facility] Work Phone: Start: 01-23-2023 Registered Recurring POWER ELECTRONICS RESEARCH ENGINEER-C Kaya Kim POWER ELECTRONICS RESEARCH ENGINEER Work Phone: [facility] Start: 01-23-2023 End: 01-23-2023 Patient encounter procedure POWER ELECTRONICS RESEARCH ENGINEER-C Maida Kim POWER ELECTRONICS RESEARCH ENGINEER Work Phone: [facility] Work Phone: Start: 01-02-2023 End: 01-02-2023 Patient encounter procedure POWER ELECTRONICS RESEARCH ENGINEER-C Maida Kim POWER ELECTRONICS RESEARCH ENGINEER Work Phone: [facility] Work Phone: Start: 12-19-2022 End: 12-19-2022 Patient encounter procedure POWER ELECTRONICS RESEARCH ENGINEER-C Maida Kim POWER ELECTRONICS RESEARCH ENGINEER Work Phone: [facility] Work Phone: Start: 12-12-2022 End: 12-12-2022 Patient encounter procedure POWER ELECTRONICS RESEARCH ENGINEER-C Maida Kim POWER ELECTRONICS RESEARCH ENGINEER Work Phone: [facility] Work Phone: Start: 12-05-2022 End: 12-05-2022 ambulatory POWER ELECTRONICS RESEARCH ENGINEER-C Maida Kim POWER ELECTRONICS RESEARCH ENGINEER Work Phone: [facility] Work Phone: Start: 12-05-2022 End: 12-05-2022 Patient encounter procedure POWER ELECTRONICS RESEARCH ENGINEER-C Maida Kim POWER ELECTRONICS RESEARCH ENGINEER Work Phone: [facility]-Nuclear Medicine, [facility] Work Phone: Start: 11-21-2022 Registered Recurring POWER ELECTRONICS RESEARCH ENGINEER-C Kaya Kim POWER ELECTRONICS RESEARCH ENGINEER Work Phone: [facility] Start: 11-21-2022 End: 11-21-2022 Patient encounter procedure POWER ELECTRONICS RESEARCH ENGINEER-C Maida Kim POWER ELECTRONICS RESEARCH ENGINEER Work Phone: [facility] Work Phone: Start: 11-01-2022 End: 11-01-2022 Patient encounter procedure POWER ELECTRONICS RESEARCH ENGINEER-C Maida Kim POWER ELECTRONICS RESEARCH ENGINEER Work Phone: [facility] Start: 10-31-2022 Non-patient / Non-visit POWER ELECTRONICS RESEARCH ENGINEER-C Gael Kim POWER ELECTRONICS RESEARCH ENGINEER Work Phone: [facility] Start: 10-31-2022 End: 10-31-2022 ambulatory POWER ELECTRONICS RESEARCH ENGINEER-C Maida Kim POWER ELECTRONICS RESEARCH ENGINEER Work Phone: [facility] Work Phone: Start: 10-31-2022 End: 10-31-2022 Patient encounter procedure POWER ELECTRONICS RESEARCH ENGINEER-C Maida Kim POWER ELECTRONICS RESEARCH ENGINEER [facility] Start: 10-31-2022 Registered Recurring POWER ELECTRONICS RESEARCH ENGINEER-C Kaya Kim POWER ELECTRONICS RESEARCH ENGINEER Work Phone: [facility] Start: 10-31-2022 End: 10-31-2022 Patient encounter procedure POWER ELECTRONICS RESEARCH ENGINEER-C Maida Kim POWER ELECTRONICS RESEARCH ENGINEER Work Phone: [facility] Start: 10-30-2022 End: 10-30-2022 Patient encounter procedure POWER ELECTRONICS RESEARCH ENGINEER-C Maida Kim POWER ELECTRONICS RESEARCH ENGINEER Work Phone: [facility] Start: 10-29-2022 Non-patient / Non-visit POWER ELECTRONICS RESEARCH ENGINEER-C Gael Kim POWER ELECTRONICS RESEARCH ENGINEER Work Phone: [facility] Start: 10-29-2022 End: 10-29-2022 Patient encounter procedure POWER ELECTRONICS RESEARCH ENGINEER-C Maida Kim POWER ELECTRONICS RESEARCH ENGINEER [facility] Start: 10-10-2022 End: 10-10-2022 Patient encounter procedure POWER ELECTRONICS RESEARCH ENGINEER-C Maida Kim POWER ELECTRONICS RESEARCH ENGINEER Work Phone: [facility] Start: 09-30-2022 End: 09-30-2022 Patient encounter procedure POWER ELECTRONICS RESEARCH ENGINEER-C Maida Kim POWER ELECTRONICS RESEARCH ENGINEER Work Phone: [facility] Start: 09-24-2022 ambulatory MAIDA KIM Facili ty:[facility] Start: 09-24-2022 End: 09-24-2022 Office outpatient new 60 minutes Josh Mancuso MD Work Phone: [facility] On[facility] Comment on above: Infiltrating ductal carcinoma of left breast (Primary Dx); Bone lesion Start: 09-19-2022 End: 09-19-2022 Patient encounter procedure POWER ELECTRONICS RESEARCH ENGINEER-C Maida Kim POWER ELECTRONICS RESEARCH ENGINEER Work Phone: [facility] Start: 08-29-2022 End: 08-29-2022 Patient encounter procedure POWER ELECTRONICS RESEARCH ENGINEER-C Maida Kim POWER ELECTRONICS RESEARCH ENGINEER Work Phone: [facility] Start: 08-22-2022 End: 08-22-2022 ambulatory POWER ELECTRONICS RESEARCH ENGINEER-C Maida Kim POWER ELECTRONICS RESEARCH ENGINEER Work Phone: [facility] Work Phone: Start: 08-22-2022 End: 08-22-2022 Patient encounter procedure POWER ELECTRONICS RESEARCH ENGINEER-C Maida Kim POWER ELECTRONICS RESEARCH ENGINEER Work Phone: [facility] Start: 08-22-2022 Registered Recurring POWER ELECTRONICS RESEARCH ENGINEER-C Kaya Kim POWER ELECTRONICS RESEARCH ENGINEER Work Phone: [facility] Start: 08-09-2022 Registered Recurring POWER ELECTRONICS RESEARCH ENGINEER-C Kaya Kim POWER ELECTRONICS RESEARCH ENGINEER Work Phone: [facility] Start: 08-08-2022 End: 08-08-2022 ambulatory POWER ELECTRONICS RESEARCH ENGINEER-C Maida Kim POWER ELECTRONICS RESEARCH ENGINEER Work Phone: [facility] Work Phone: Start: 08-08-2022 End: 08-08-2022 Patient encounter procedure POWER ELECTRONICS RESEARCH ENGINEER-C Maida Kim POWER ELECTRONICS RESEARCH ENGINEER Work Phone: [facility] Start: 08-08-2022 End: 08-08-2022 Patient encounter procedure POWER ELECTRONICS RESEARCH ENGINEER-C Maida Kim POWER ELECTRONICS RESEARCH ENGINEER Work Phone: [facility] Start: 08-01-2022 Non-patient / Non-visit POWER ELECTRONICS RESEARCH ENGINEER-C Gael Kim POWER ELECTRONICS RESEARCH ENGINEER Work Phone: [facility] Start: 08-01-2022 End: 08-01-2022 ambulatory POWER ELECTRONICS RESEARCH ENGINEER-C Maida Kim POWER ELECTRONICS RESEARCH ENGINEER Work Phone: [facility] Work Phone: Start: 08-01-2022 End: 08-01-2022 Patient encounter procedure POWER ELECTRONICS RESEARCH ENGINEER-C Maida Kim POWER ELECTRONICS RESEARCH ENGINEER Work Phone: [facility] Start: 08-01-2022 Registered Recurring POWER ELECTRONICS RESEARCH ENGINEER-C Kaya Kim POWER ELECTRONICS RESEARCH ENGINEER Work Phone: [facility] Start: 08-01-2022 End: 08-01-2022 Patient encounter procedure POWER ELECTRONICS RESEARCH ENGINEER-C Maida Kim POWER ELECTRONICS RESEARCH ENGINEER Work Phone: [facility] Start: 07-18-2022 End: 07-18-2022 Patient encounter procedure POWER ELECTRONICS RESEARCH ENGINEER-C Maida Kim POWER ELECTRONICS RESEARCH ENGINEER Work Phone: [facility] Start: 07-11-2022 End: 07-11-2022 Patient encounter procedure POWER ELECTRONICS RESEARCH ENGINEER-C Maida Kim POWER ELECTRONICS RESEARCH ENGINEER Work Phone: [facility] Start: 07-10-2022 End: 07-10-2022 ambulatory POWER ELECTRONICS RESEARCH ENGINEER-C Maida Kim POWER ELECTRONICS RESEARCH ENGINEER Work Phone: [facility] Work Phone: Start: 07-10-2022 End: 07-10-2022 Patient encounter procedure POWER ELECTRONICS RESEARCH ENGINEER-C Maida Kim POWER ELECTRONICS RESEARCH ENGINEER Work Phone: [facility] Start: 06-28-2022 Registered Recurring POWER ELECTRONICS RESEARCH ENGINEER-C Kaya Kim POWER ELECTRONICS RESEARCH ENGINEER Work Phone: [facility] Start: 06-27-2022 End: 06-27-2022 Patient encounter procedure POWER ELECTRONICS RESEARCH ENGINEER-C Maida Kim POWER ELECTRONICS RESEARCH ENGINEER Work Phone: [facility] Start: 06-27-2022 Registered Recurring POWER ELECTRONICS RESEARCH ENGINEER-C Kaya Kim POWER ELECTRONICS RESEARCH ENGINEER Work Phone: [facility] Start: 06-26-2022 End: 06-26-2022 Patient encounter procedure POWER ELECTRONICS RESEARCH ENGINEER-C Maida Kim POWER ELECTRONICS RESEARCH ENGINEER Work Phone: [facility] Start: 06-21-2022 End: 06-21-2022 ambulatory POWER ELECTRONICS RESEARCH ENGINEER-C Maida Kim POWER ELECTRONICS RESEARCH ENGINEER Work Phone: [facility] Work Phone: Start: 06-21-2022 End: 06-21-2022 Patient encounter procedure POWER ELECTRONICS RESEARCH ENGINEER-C Maida Kim POWER ELECTRONICS RESEARCH ENGINEER [facility] Start: 06-19-2022 Registered Recurring POWER ELECTRONICS RESEARCH ENGINEER-C Kaya Kim POWER ELECTRONICS RESEARCH ENGINEER Work Phone: [facility] Start: 06-18-2022 Non-patient / Non-visit POWER ELECTRONICS RESEARCH ENGINEER-C Gael Kim POWER ELECTRONICS RESEARCH ENGINEER Work Phone: [facility] Start: 06-18-2022 End: 06-18-2022 ambulatory POWER ELECTRONICS RESEARCH ENGINEER-C Maida Kim POWER ELECTRONICS RESEARCH ENGINEER Work Phone: [facility] Work Phone: Start: 06-18-2022 End: 06-18-2022 Patient encounter procedure POWER ELECTRONICS RESEARCH ENGINEER-C Maida Kim POWER ELECTRONICS RESEARCH ENGINEER Work Phone: [facility]Cardi[facility] Services Start: 06-18-2022 End: 06-18-2022 Patient encounter procedure POWER ELECTRONICS RESEARCH ENGINEER-C Maida Kim POWER ELECTRONICS RESEARCH ENGINEER Work Phone: [facility] Start: 06-17-2022 End: 06-17-2022 ambulatory POWER ELECTRONICS RESEARCH ENGINEER-C Maida Kim POWER ELECTRONICS RESEARCH ENGINEER Work Phone: [facility] Work Phone: Start: 06-17-2022 End: 06-17-2022 Patient encounter procedure POWER ELECTRONICS RESEARCH ENGINEER-C Maida Kim POWER ELECTRONICS RESEARCH ENGINEER Work Phone: [facility] Start: 06-17-2022 Non-patient / Non-visit POWER ELECTRONICS RESEARCH ENGINEER-C Gael Kim POWER ELECTRONICS RESEARCH ENGINEER Work Phone: [facility] Start: 06-17-2022 End: 06-17-2022 Admission to same day surgery center POWER ELECTRONICS RESEARCH ENGINEER-C Maida Kim POWER ELECTRONICS RESEARCH ENGINEER [facility] Start: 06-17-2022 End: 06-17-2022 ambulatory POWER ELECTRONICS RESEARCH ENGINEER-C Maida Kim POWER ELECTRONICS RESEARCH ENGINEER Work Phone: [facility] Work Phone: Start: 06-14-2022 End: 06-14-2022 ambulatory POWER ELECTRONICS RESEARCH ENGINEER-C Maida Kim POWER ELECTRONICS RESEARCH ENGINEER Work Phone: [facility] Work Phone: Start: 06-14-2022 End: 06-14-2022 Patient encounter procedure POWER ELECTRONICS RESEARCH ENGINEER-C Maida Kim POWER ELECTRONICS RESEARCH ENGINEER Work Phone: [facility] Start: 06-13-2022 End: 06-13-2022 ambulatory POWER ELECTRONICS RESEARCH ENGINEER-C Maida Kim POWER ELECTRONICS RESEARCH ENGINEER Work Phone: [facility] Work Phone: Start: 06-13-2022 End: 06-13-2022 Patient encounter procedure POWER ELECTRONICS RESEARCH ENGINEER-Amairani Kim POWER ELECTRONICS RESEARCH ENGINEER Work Phone: [facility]-Laboratory, Specimen Start: 06-13-2022 End: 06-13-2022 Patient encounter procedure POWER ELECTRONICS RESEARCH ENGINEER-Amairani Kim POWER ELECTRONICS RESEARCH ENGINEER Work Phone: [facility] Start: 06-13-2022 Registered Recurring POWER ELECTRONICS RESEARCH ENGINEER-Amairani Kim POWER ELECTRONICS RESEARCH ENGINEER Work Phone: [facility] Start: 06-13-2022 End: 06-13-2022 Patient encounter procedure POWER ELECTRONICS RESEARCH ENGINEER-C Maida Kim POWER ELECTRONICS RESEARCH ENGINEER Work Phone: [facility] Start: 06-12-2022 End: 06-12-2022 Patient encounter procedure POWER ELECTRONICS RESEARCH ENGINEER-C Maida Kim POWER ELECTRONICS RESEARCH ENGINEER Work Phone: [facility] Start: 06-07-2022 End: 06-12-2022 ambulatory LISA LYN DO Facility:B Start: 06-07-2022 End: 06-11-2022 Outreach Lab LISA LYN DO [facility] Start: 06-06-2022 End: 06-06-2022 Patient encounter procedure POWER ELECTRONICS RESEARCH ENGINEER-C Maida Kim POWER ELECTRONICS RESEARCH ENGINEER Work Phone: [facility]-Laboratory, Specimen Start: 06-06-2022 End: 06-06-2022 Patient encounter procedure POWER ELECTRONICS RESEARCH ENGINEER-C Maida Kim POWER ELECTRONICS RESEARCH ENGINEER Work Phone: [facility] Start: 05-27-2022 End: 05-27-2022 Patient encounter procedure POWER ELECTRONICS RESEARCH ENGINEER-C Maida Kim POWER ELECTRONICS RESEARCH ENGINEER Work Phone: [facility] Start: 05-24-2022 End: 05-24-2022 ambulatory POWER ELECTRONICS RESEARCH ENGINEER-C Maida Kim POWER ELECTRONICS RESEARCH ENGINEER Work Phone: [facility] Work Phone: Start: 05-24-2022 End: 05-24-2022 Patient encounter procedure POWER ELECTRONICS RESEARCH ENGINEER-C Maida Kim POWER ELECTRONICS RESEARCH ENGINEER Work Phone: [facility] Start: 05-23-2022 End: 05-23-2022 Emergency department patient visit POWER ELECTRONICS RESEARCH ENGINEER-C Maida Kim POWER ELECTRONICS RESEARCH ENGINEER Work Phone: [facility]-Emergency Department Start: 05-10-2022 End: 05-10-2022 ambulatory POWER ELECTRONICS RESEARCH ENGINEER-C Maida Kim POWER ELECTRONICS RESEARCH ENGINEER Work Phone: [facility] Work Phone: Start: 05-10-2022 End: 05-10-2022 Patient encounter procedure POWER ELECTRONICS RESEARCH ENGINEER-C Maida Kim POWER ELECTRONICS RESEARCH ENGINEER Work Phone: [facility]-Outpatient Pavilion Ultrasound Start: 05-07-2022 End: 05-07-2022 ambulatory POWER ELECTRONICS RESEARCH ENGINEER-C Maida Kim POWER ELECTRONICS RESEARCH ENGINEER Work Phone: [facility] Work Phone: Start: 05-07-2022 End: 05-07-2022 Patient encounter procedure POWER ELECTRONICS RESEARCH ENGINEER-C Maida Kim POWER ELECTRONICS RESEARCH ENGINEER Work Phone: [facility]-Outpatient Breast Imaging Start: 04-08-2022 End: 04-08-2022 Patient encounter procedure POWER ELECTRONICS RESEARCH ENGINEER-C Maida Kim POWER ELECTRONICS RESEARCH ENGINEER Work Phone: [facility] Start: 02-08-2022 End: 02-08-2022 Patient encounter procedure POWER ELECTRONICS RESEARCH ENGINEER-C Maida Kim POWER ELECTRONICS RESEARCH ENGINEER Work Phone: [facility] Start: 02-01-2022 End: 02-01-2022 ambulatory POWER ELECTRONICS RESEARCH ENGINEER-C Maida Kim POWER ELECTRONICS RESEARCH ENGINEER Work Phone: [facility] Work Phone: Start: 02-01-2022 End: 02-01-2022 Patient encounter procedure POWER ELECTRONICS RESEARCH ENGINEER-C Maida Kim POWER ELECTRONICS RESEARCH ENGINEER Work Phone: [facility]-MRI - [facility] Start: 01-17-2022 End: 01-17-2022 Patient encounter procedure POWER ELECTRONICS RESEARCH ENGINEER-C Maida Kim POWER ELECTRONICS RESEARCH ENGINEER Work Phone: [facility] Start: 01-02-2022 End: 01-06-2022 Discharged Recurring POWER ELECTRONICS RESEARCH ENGINEER-C Maida Kim POWER ELECTRONICS RESEARCH ENGINEER Work Phone: [facility]-Nutritional Services Start: 12-06-2021 End: 12-06-2021 Patient encounter procedure POWER ELECTRONICS RESEARCH ENGINEER-C Maida Kim POWER ELECTRONICS RESEARCH ENGINEER Work Phone: [facility] Start: 10-22-2021 End: 10-22-2021 Patient encounter procedure POWER ELECTRONICS RESEARCH ENGINEER-C Maida Kim POWER ELECTRONICS RESEARCH ENGINEER Work Phone: [facility] Start: 04-17-2021 End: 04-17-2021 Patient encounter procedure MAIDA KIM WAITER-LIQUIFIED NATURAL GAS TECHNICIAN [facility] Start: 04-09-2017 End: 04-10-2017 Ambulatory CAROLINA (LIQUIFIED NATURAL GAS TECHNICIAN) [facility] Procedures Date Procedure Procedure Detail Performing [...] Work Phone: Start: 11-04-2024 Estimated creatinine clearance lBue Henderson ayt PA Work Phone: Start: 10-26-2024 Urine culture Blue Wayseth PA Work Phone: Start: 10-14-2024 Procedure Blue Markseth PA Work Phone: Start: 09-23-2024 Estimated creatinine clearance Blue Henderson ayt PA Work Phone: Start: 08-12-2024 MRI of lower extremity Maida Clinemer POWER ELECTRONICS RESEARCH ENGINEER -C Work Phone: Start: 07-22-2024 Ultrasonography of breast Maida Clinemer POWER ELECTRONICS RESEARCH ENGINEER-C Work Phone: Start: 07-05-2024 Ultrasonography of breast Maida Clinemer POWER ELECTRONICS RESEARCH ENGINEER-C Work Phone: Start: 07-01-2024 Carcinoembryonic antigen cea Maida Cline mary POWER ELECTRONICS RESEARCH ENGINEER-C Work Phone: Comment on above: Nonsmokers <3.9 Smokers <5.6[employer] Electrochemiluminescence Immunoassay(ECLIA)Values obtained with different assay methods or kitscannot be used interchangeably. Results cannot beinterpreted as absolute evidence of the presence orabsence of malignant disease. Start: 07-01-2024 Measurement of renal function Blue BERMUDEZ Work Phone: Comment on above: GFR Calc Start: 06-15-2024 PET study for localization of tumor Maida Clinemer POWER ELECTRONICS RESEARCH ENGINEER-C Work Phone: Start: 01-06-[address] of whole body Maida Clinemer POWER ELECTRONICS RESEARCH ENGINEER-C Work Phone: Start: 10-10-2023 Urine test visual color cmprsn meths Elsie Villareal WAITER - LIQUIFIED NATURAL GAS TECHNICIAN Work Phone: Start: 07-15-[address] of whole body POWER ELECTRONICS RESEARCH ENGINEER-C Maida Julio POWER ELECTRONICS RESEARCH ENGINEER Work Phone: Start: 03-27-2023 CT of chest and abdomen POWER ELECTRONICS RESEARCH ENGINEER-C Maida Son mary POWER ELECTRONICS RESEARCH ENGINEER Work Phone: Start: 12-17-2022 PET study for localization of tumor POWER ELECTRONICS RESEARCH ENGINEER-C Maida [place] POWER ELECTRONICS RESEARCH ENGINEER Work Phone: Start: 12-05-2022 Radionuclide whole body bone study POWER ELECTRONICS RESEARCH ENGINEER-C Maida Clinemer POWER ELECTRONICS RESEARCH ENGINEER Work Phone: Start: 10-31-2022 Trichomonas screening test Blue BERMUDEZ Work Phone: Start: 10-29-2022 Plain chest X-ray POWER ELECTRONICS RESEARCH ENGINEER-C Maida Clinemer POWER ELECTRONICS RESEARCH ENGINEER Work Phone: Start: 08-22-2022 CT of chest and abdomen POWER ELECTRONICS RESEARCH ENGINEER-C Maida Wit mary POWER ELECTRONICS RESEARCH ENGINEER Work Phone: Start: 08-08-2022 Plain chest X-ray POWER ELECTRONICS RESEARCH ENGINEER-C Maida [place] POWER ELECTRONICS RESEARCH ENGINEER Work Phone: Start: 07-10-2022 MRI of brain with contrast POWER ELECTRONICS RESEARCH ENGINEER-C Maida Julio POWER ELECTRONICS RESEARCH ENGINEER Work Phone: Start: 06-21-2022 Radionuclide whole body bone study POWER ELECTRONICS RESEARCH ENGINEER-C Maida Kim POWER ELECTRONICS RESEARCH ENGINEER Work Phone: Start: 06-19-2022 Positron emission tomography with computed tomography POWER ELECTRONICS RESEARCH ENGINEER-C Maida Kim POWER ELECTRONICS RESEARCH ENGINEER Work Phone: Start: 06-17-2022 CT of chest and abdomen POWER ELECTRONICS RESEARCH ENGINEER-C Maida hernandez POWER ELECTRONICS RESEARCH ENGINEER Work Phone: Start: 06-17-2022 Plain chest X-ray POWER ELECTRONICS RESEARCH ENGINEER-C Maida Kim POWER ELECTRONICS RESEARCH ENGINEER Work Phone: Start: 06-17-2022 Implantation to cardiovascular system POWER ELECTRONICS RESEARCH ENGINEER-C Maida Kim POWER ELECTRONICS RESEARCH ENGINEER Work Phone: Start: 06-17-2022 Fluoroscopic guidance POWER ELECTRONICS RESEARCH ENGINEER-C Maida Conway r POWER ELECTRONICS RESEARCH ENGINEER Work Phone: Start: 06-14-2022 MRI of bilateral breasts with contrast POWER ELECTRONICS RESEARCH ENGINEER-C Maida Kim POWER ELECTRONICS RESEARCH ENGINEER Work Phone: Start: 06-06-2022 OUTSIDE PATHOLOGY REPORTS Other Other Start: 05-10-2022 Ultrasonography of breast POWER ELECTRONICS RESEARCH ENGINEER-C Maida jurado POWER ELECTRONICS RESEARCH ENGINEER Work Phone: Start: 05-07-2022 End: 05-07-2022 Screening mammography POWER ELECTRONICS RESEARCH ENGINEER-C Maida Conway r POWER ELECTRONICS RESEARCH ENGINEER Work Phone: Start: 02-01-2022 MRI of joint of lower extremity POWER ELECTRONICS RESEARCH ENGINEER-C Katlyn Kim POWER ELECTRONICS RESEARCH ENGINEER Work Phone: Start: 01-17-2022 Radiologic examination of knee POWER ELECTRONICS RESEARCH ENGINEER-C Kaya Kim POWER ELECTRONICS RESEARCH ENGINEER Work Phone: Start: 05-14-2021 Microscopic observation [Identifier] in Cervix by Cyto stain Nikko Giraldo MD Work Phone: Start: 02-27-2018 Specimen from breast obtained by biopsy (specimen) MAIDA IKM WAITER-LIQUIFIED NATURAL GAS TECHNICIAN Comment on above: right Start: 04-07-2017 Structure of right knee (body structure) MAIDA KIM WAITER-LIQUIFIED NATURAL GAS TECHNICIAN Comment on above: stress fracture and torn meniscus Anaerobic microbial culture POWER ELECTRONICS RESEARCH ENGINEER-C Maida Kim POWER ELECTRONICS RESEARCH ENGINEER Work Phone: Anaerobic microbial culture POWER ELECTRONICS RESEARCH ENGINEER-C Maida Kim POWER ELECTRONICS RESEARCH ENGINEER Work Phone: Investigation of tra nsfusion reaction POWER ELECTRONICS RESEARCH ENGINEER-C Maida Kim POWER ELECTRONICS RESEARCH ENGINEER Work Phone: Investigation of tra nsfusion reaction POWER ELECTRONICS RESEARCH ENGINEER-C Maida Kim POWER ELECTRONICS RESEARCH ENGINEER Work Phone: Microbial culture, routine N P-C Maida Kim POWER ELECTRONICS RESEARCH ENGINEER Work Phone: Microbial culture, routine N P-C Maida Kim POWER ELECTRONICS RESEARCH ENGINEER Work Phone: Plan of Treatment Date Care Activity Detail Author Start: 2029 RSV Immunization aged 60 or older (1 - 1-dose 60+ series) RSV Immunization aged 60 or older (1 - 1-dose 60+ series) [facility] Start: 05-14-2026 Screening for malignant neoplasm of cervix [facility] Start: 03-10-2025 Cancer Ag 15-3 [Presence] in Serum or Plasma [facility] Start: 03-10-2025 Cancer Ag 27-29 [Presence] in Serum or Plasma [facility] Start: 03-10-2025 Carcinoembryonic Ag [Mass/volume] in Serum or Plasma [facility] Start: 03-10-2025 CBC W Auto Differential panel - Blood [facility] Start: 03-10-2025 [facility] Start: 02-02-2025 Thyroid stimulating hormone measurement [facility] Start: 01-27-2025 [facility] Start: 01-06-2025 Cancer Ag 125 [Units/volume] in Serum or Plasma [facility] Start: 01-06-2025 Cancer Ag 15-3 [Presence] in Serum or Plasma [facility] Start: 01-06-2025 Cancer Ag 27-29 [Presence] in Serum or Plasma [facility] Start: 01-06-2025 Carcinoembryonic Ag [Mass/volume] in Serum or Plasma [facility] Start: 12-07-2024 PET study for localization of tumor PET/CT Tumor Base -Thigh Subs [facility] Start: 11-25-2024 Cancer Ag 15-3 [Presence] in Serum or Plasma [facility] Start: 11-25-2024 Cancer Ag 27-29 [Presence] in Serum or Plasma [facility] Start: 11-25-2024 [facility] Start: 07-22-2024 Us breast uni real time with image limited ULTRASOUND BREAST LIMITED [facility] Start: 06-15-2024 Patient referral [facility] Work Phone: Start: 05-14-2024 Screening for malignant neoplasm of cervix Pap Smear [facility] Start: 02-08-2024 Influenza vaccination Influenza Vaccine (Season Ended) [facility] Start: 10-28-2023 End: 10-28-2023 Patient encounter procedure 10/28/2023 3:45 PM EDT Office Visit [facility] [address] [place], [place] [id number] Gladis Rausch MD [address] [place] [phone] [facility] Start: 10-10-2023 End: 10-10-2023 Admission to same day surgery center 10/10/2023 11:00 AM EDT - 10/10/2023 12:00 PM EDT Surgery [facility] OR [address] [facility] [place] [address] Gladis Rausch MD [address] [place] [phone] HYSTEROSCOPY DILATION AND CURETTAGE, POLYPECTOMY [79948 (CPT )] [facility] Comment on above: HYSTEROSCOPY DILATION AND CURETTAGE, CHUCKY YPECTOMY [90061 (CPT )] Start: 10-10-2023 End: 10-10-2023 Anesthesia consultation 10/10/2023 11:00 AM EDT Anesthesia Event [facility] [address] [facility] [place] [address] Alyssa Morales, WAITER - LIQUIFIED NATURAL GAS TECHNICIAN [address] [place] [address] [facility] Start: 10-10-2023 End: 10-10-2023 Hysteroscopy bx endometrium&/polypc w/wo d&c HYSTEROSCOPY BIOPSY ENDOMETRIUM AND OR POLYPECTOMY Postmenopausal bleeding Polyp of corpus uteri 10/10/2023 11:00 AM EDT [facility] Operating [facility] Start: 10-10-2023 Subsequent hospital visit by physician 10/10/2023 11:00 AM EDT Hospital Encounter [facility] [address] [facility] [place] [phone] Gladis Rausch MD [address] [facility] [address] [place] [phone] [facility] Start: 09-02-2023 End: 09-02-2023 Patient encounter procedure 09/02/2023 4:15 PM EDT Consult [facility] [address] [place] [address] Gladis Rausch MD [address] [facility] [address] [place] [phone] [facility] Start: 06-18-2023 End: 06-18-2023 Telemedicine consultation with patient 06/18/2023 4:00 PM EST Telemedicine [facility] [address] [place] [address] Nikko Goldberg MD [address], [address] [place] [address] [facility] Start: 06-17-2023 End: 06-17-2023 Patient encounter procedure 06/17/2023 3:15 PM EST Procedure Visit [facility] [address] [place] [phone] Phu Forte MD [address] [place] [phone] [facility] Start: 06-17-2023 End: 06-17-2023 Professional / ancillary services management 06/17/2023 2:45 PM EST Ancillary Procedure [facility] [address] [place] [address] [facility] Start: 05-13-2023 End: 05-13-2024 US.doppler Pelvis vessels US pelvis hysterosonography doppler Imaging Routine Postmenopausal bleeding Expected: 05/13/2023, Expires: 05/13/2024 [facility] Work Phone: Comment on above: Expected: 05/13/2023, Expires: Start: 05-07-2023 Screening for malignant neoplasm of breast Mammogram [facility] Start: 03-27-2023 Venous catheter care management [facility] Start: 02-07-2023 COVID-19 Vaccine ( season) COVID-19 Vaccine () [facility] Start: 02-07-2023 Influenza vaccination [facility] Start: 12-05-2022 Venous catheter care management [facility] Start: 11-05-2022 End: 11-05-2022 ambulatory 11/05/2022 Infusion Visit Chemotherapy Josh Mancuso MD [address], [address] [place] [address] [facility] Start: 11-05-2022 End: 11-05-2022 Clinical Support Encounter [facility] Start: 10-15-2022 End: 10-15-2022 Clinical Support Encounter [facility] Start: 09-24-2022 End: 09-25-2023 CT Abdomen and Pelvis W contrast IV CT ABDOMEN/PELVIS WITH CONTRAST Imaging Routine Infiltrating ductal carcinoma of left breast Bone lesion Expected: 09/24/2022, Expires: 09/25/2023 [facility] Comment on above: Expected: 09/24/2022, Expires: Start: 09-24-2022 End: 09-25-2023 CT Chest W contrast IV CT CHEST WITH CONTRAST Imaging Routine Infiltrating ductal carcinoma of left breast Bone lesion Expected: 09/24/2022, Expires: 09/25/2023 [facility] Work Phone: Comment on above: Expected: 09/24/2022, Expires: 4 Start: 09-24-2022 End: 09-25-2023 NM Whole body Bone Views NUC BONE SCAN WHOLE BODY Imaging Routine Infiltrating ductal carcinoma of left breast Bone lesion Expected: 09/24/2022, Expires: 09/25/2023 [facility] Comment on above: Expected: 09/24/2022, Expires: Start: 08-22-2022 Venous catheter care management [facility] Start: 07-10-2022 Venous catheter care management [facility] Start: 06-27-2022 Venous catheter care management [facility] Start: 06-27-2022 Cancer Ag 15-3 [Presence] in Serum or Plasma [facility] Start: 06-27-2022 Cancer Ag 27-29 [Presence] in Serum or Plasma [facility] Start: 06-27-2022 Carcinoembryonic Ag [Mass/volume] in Serum or Plasma [facility] Start: 06-19-2022 Positron emission tomography with computed tomography [facility] Work Phone: Start: 06-17-2022 Anesthesia access central venous circulation ANESTH VASCULAR ACCESS [facility] Start: 06-17-2022 Insj tunneled ctr vad w/subq port age 4 yr/> INSERT TUNNELED CV CATH [facility] Start: 06-17-2022 Patient discharge [facility] Start: 06-13-2022 Patient referral [facility] Work Phone: Start: 06-12-2022 Patient referral [facility] Work Phone: Start: 05-24-2022 [facility] Work Phone: Start: 05-24-2022 Therapeutic prophylactic/dx injection subq/im THER/PROPH/DIAG INJ SC/IM [facility] Start: 05-07-2022 MG Breast - bilateral Screening [facility] Work Phone: Start: 05-07-2022 Screening mammography SCRN MAMM (CAD)W/JOHNNY BILAT [facility] Work Phone: Start: 2019 Zoster vaccine hzv live for subcutaneous use ZOSTER (SHINGLES) VACCINE (1 of 2) [facility] Start: 2019 Zoster Vaccines (1 of 2) Zoster Vaccines (1 of 2) [facility] Start: 2014 Screening for malignant neoplasm of colon COLORECTAL CANCER SCREENING DISCUSSION [facility] Start: 2009 Lipid panel LIPID SCREENING [facility] Start: 2009 Screening for malignant neoplasm of breast MAMMOGRAM SCREENING DISCUSSION [facility] Start: 1990 Screening for malignant neoplasm of cervix CERVICAL CANCER SCREENING DISCUSSION [facility] Start: 1988 DTaP/Tdap/Td Vaccines (1 - Tdap) DTaP/Tdap/Td Vaccines (1 - Tdap) [facility] Start: 1988 Hepatitis B Vaccines (1 of 3 - 19+ 3-dose series) Hepatitis B Vaccines (1 of 3 - 19+ 3-dose series) [facility] Start: 1988 Third diphtheria, tetanus and acellular pertussis (DTaP) vaccination TDAP (ADULT) [facility] Start: 1987 Diabetes mellitus screening Diabetes Screening [facility] Start: 1987 Hepatitis C screening Hepatitis C Screening [facility] Start: 1984 HIV screening HIV SCREENING DISCUSSION [facility] Start: 1981 Depression Screening Depression Screening [facility] Start: 1970 MMR Vaccines (1 of 1 - Standard series) MMR Vaccines (1 of 1 - Standard series) [facility] Start: 1969 COVID-19 VACCINE (#1) COVID-19 VACCINE (#1) [facility] Start: 1969 Hepatitis B Vaccines (1 of 3 - 3-dose series) Hepatitis B Vaccines (1 of 3 - 3-dose series) [facility] Start: 1969 Hepatitis C screening HEPATITIS C VIRUS SCREENING [facility] Start: 1969 HIV screening HIV Screening [facility] Start: 1969 Lipid panel Lipid Panel [facility] Start: 1969 Potassium [Moles/volume] in Serum or Plasma POTASSIUM [facility] Start: 1969 Screening for malignant neoplasm of colon [facility] Start: 1969 Tetanus vaccination TETANUS [facility] Anaerobic microbial culture Anaerobic Culture [facility] Work Phone: Blood chemistry [facility] Cancer Ag 125 [Units/volume] in Serum or Plasma [facility] Cancer Ag 15-3 [Presence] in Serum or Plasma [facility] Cancer Ag 15-3 [Presence] in Serum or Plasma [facility] Cancer Ag 15-3 [Presence] in Serum or Plasma [facility] Cancer Ag 15-3 [Presence] in Serum or Plasma [facility] Cancer Ag 15-3 [Presence] in Serum or Plasma [facility] Cancer Ag 15-3 [Presence] in Serum or Plasma [facility] Cancer Ag 15-3 [Presence] in Serum or Plasma [facility] Cancer Ag 27-29 [Presence] in Serum or Plasma [facility] Cancer Ag 27-29 [Presence] in Serum or Plasma [facility] Cancer Ag 27-29 [Presence] in Serum or Plasma [facility] Cancer Ag 27-29 [Presence] in Serum or Plasma [facility] Cancer Ag 27-29 [Presence] in Serum or Plasma [facility] Cancer Ag 27-29 [Presence] in Serum or Plasma [facility] Cancer Ag 27-29 [Presence] in Serum or Plasma [facility] Carcinoembryonic Ag [Mass/volume] in Serum or Plasma [facility] Carcinoembryonic Ag [Mass/volume] in Serum or Plasma [facility] Carcinoembryonic Ag [Mass/volume] in Serum or Plasma [facility] Carcinoembryonic Ag [Mass/volume] in Serum or Plasma [facility] Carcinoembryonic Ag [Mass/volume] in Serum or Plasma [facility] CBC W Auto Different ial panel - Blood [facility] CBC W Auto Different ial panel - Blood [facility] CBC W Auto Different ial panel - Blood [facility] CBC W Auto Different ial panel - Blood [facility] CBC W Auto Different ial panel - Blood [facility] CBC W Auto Different ial panel - Blood [facility] metabo lic 1999 panel - Serum or Plasma [facility] Comprehensive metabo lic 1999 panel - Serum or Plasma [facility] CT Abdomen and Pelvi s W contrast IV [facility] Work Phone: CT Abdomen and Pelvi s W contrast IV [facility] Lactate dehydrogenas e measurement [facility] Lactate dehydrogenas e measurement [facility] Lactate dehydrogenas e measurement [facility] Lactate dehydrogenas e measurement [facility] Lactate dehydrogenas e measurement [facility] Measurement of occul t blood in stool specimen using immunoassay [facility] MR Brain WO and W contrast IV [facility] NM Whole body Bone Views [facility] Work Phone: Patient Education ED Chest Pain, Noncardiac ED Hypertension, To Be Confirmed [facility] Work Phone: Patient referral [facility] Work Phone: PET CT of whole body [facility] Positron emission tomography with computed tomography [facility] Work Phone: Positron emission tomography with computed tomography [facility] PT Unspecified body region [facility] Tissue exam [facility] Work Phone: Comment on above: Release Upon Ordering for 1 Occurrences starting 10/10/2023 [facility] Work Phone: [facility] Payers Date Payer Category Payer Self-pay [id number] 2022 Unknown [id number] 2020 Unknown [id number] 2016 Unknown [id number] 2016 Unknown [id number] 1969 Unknown [id number] 2.16. 840.1.930076.3.579.2.594 1969 Unknown [id number] 2.16.8 40.1.151751.3.579.2.627 1969 Unknown [id number] 2.16.8 40.1.912915.3.579.2.627 Unknown [employer] .. [id number] Unknown [id number] 2.16.8 40.1.682088.3.579.2.462 Unknown [id number] 2.16.8 40.1.540567.3.579.2.462 Unknown [id number] 2.16.8 40.1.399101.3.579.2.462 Unknown [id number] 2.16.8 40.1.594848.3.579.2.462 Unknown [id number] 2.16.8 40.1.978420.3.579.2.462 Unknown [id number] 2.16.8 40.1.037685.3.579.2.462 Unknown [id number] 2.16.8 40.1.235334.3.579.2.462 Unknown [id number] 2.16.8 40.1.345382.3.579.2.462 Unknown [id number] 2.16.8 40.1.966247.3.579.2.462 Unknown [id number] 2.16.8 40.1.586563.3.579.2.462 Unknown [id number] 2.16.8 40.1.706189.3.579.2.462 Unknown [id number] 2.16.8 40.1.589060.3.579.2.462 Unknown [id number] 2.16.8 40.1.958812.3.579.2.462 Unknown [id number] 2.16.8 40.1.208266.3.579.2.462 Unknown [id number] 2.16.8 40.1.482265.3.579.2.462 Unknown [id number] 2.16.8 40.1.558131.3.579.2.462 Unknown [id number] 2.16.8 40.1.458684.3.579.2.462 Unknown [id number] 2.16.8 40.1.236585.3.579.2.462 Unknown [id number] 2.16.8 40.1.562847.3.579.2.462 Unknown [id number] 2.16.8 40.1.152984.3.579.2.462 Unknown [id number] 2.16.8 40.1.046548.3.579.2.462 Unknown [id number] 2.16.8 40.1.971473.3.579.2.462 Unknown [id number] 2.16.8 40.1.488514.3.579.2.462 Unknown [id number] 2.16.8 40.1.634848.3.579.2.462 Unknown [id number] 2.16.8 40.1.558470.3.579.2.462 Unknown [id number] 2.16.8 40.1.756179.3.579.2.462 Unknown [id number] 2.16.8 40.1.601131.3.579.2.462 Unknown [id number] 2.16.8 40.1.251356.3.579.2.462 Unknown [id number] 2.16.8 40.1.505737.3.579.2.462 Unknown [id number] 2.16.8 40.1.108660.3.579.2.462 Unknown [id number] 2.16.8 40.1.239569.3.579.2.462 Unknown [id number] 2.16.8 40.1.118125.3.579.2.462 Unknown [id number] 2.16.8 40.1.007548.3.579.2.462 Unknown [id number] 2.16.8 40.1.582951.3.579.2.462 Unknown [id number] 2.16.8 40.1.224264.3.579.2.462 Unknown [id number] 2.16.8 40.1.868488.3.579.2.462 Unknown [id number] 2.16.8 40.1.890655.3.579.2.462 Unknown [id number] 2.16.8 40.1.080116.3.579.2.462 Unknown [id number] 2.16.8 40.1.860076.3.579.2.462 Unknown [id number] 2.16.8 40.1.722119.3.579.2.462 Unknown [id number] 2.16.8 40.1.492314.3.579.2.462 Unknown [id number] 2.16.8 40.1.804723.3.579.2.462 Unknown [id number] 2.16.8 40.1.685635.3.579.2.462 Unknown [id number] 2.16.8 40.1.039668.3.579.2.462 Social History Date Type Detail Facility Start: 05-11-2019 End: 01-09-2024 Never smoked tobacco (finding) [facility] Start: 1970 Sex Assigned At Female [facility] Start: 12-06-2021 End: 06-20-2023 Tobacco smoking status NHIS Unknown if ever smoked [facility] Start: 09-24-2022 Tobacco use and exposure Smokeless tobacco non-user [facility] Start: 09-24-2022 End: 10-28-2023 Alcohol intake Current drinker of alcohol (finding) [facility] Start: 09-24-2022 Education 15 [facility] Start: 09-24-2022 Alcohol Comment Occasionally [facility] Start: 1970 Sex Assigned At Not on file [facility] Start: 05-13-2023 End: 10-28-2023 History of Social function [facility] Start: 05-13-2023 End: 10-28-2023 Tobacco use panel [facility] Start: 10-03-2023 Alcohol Comment occasional [facility] Start: 08-24-2024 End: 09-20-2024 Sex Female (finding) [facility] NEGATED: Highlighted row [facility] Medical Equipment Procedure Code Equipment Code Equipment Origin al Text Equipment Identifier Dates Insertion, vascular access port ([id number]) Vascular port/catheter ([id number] FDA Start: 06-17-2022 Goals Date Patient Goal Desired Activity /State Mental Status Date Assessment Result Facility 06-17-2022 Cognitive function Voice/Name [facility] Work Phone: 05-24-2022 Cognitive function Voice/Name [facility] Work Phone: 05-23-2022 Cognitive function Voice/Name [facility] Work Phone: Clinical Notes 04-17-2021 to 02-17-2025 Note Date & Type Note Facility 02-17-2025 Progress note [facility] 02-17-2025 Progress note Note Date/Time February 17, 2025 12:23pm [facility] [place] [address] OFFICE VISIT Date of Service: 02/17/25 1135 MR#: [id number] Acct: [id number] Name: LISSETT RUSSELL Rep #: [id number] : 1970 From: Genna Vick ch POWER ELECTRONICS RESEARCH ENGINEER POWER ELECTRONICS RESEARCH ENGINEER-C Age/Sex: 54/F Location[facility] Status: Signed HPI Subjective Date of Service [...] 1:00 positions. ER positive greater than 95%, AL +10% HER2 3+, Ki-67 +50%. She was [...] 06/27/2022. ctDNA on 06/27/2022 was 50 positive. 08/08/[facility] Hereditary cancer testing negative for BRCA1 and BRCA2. CT on 08/22/2022showed persistent bony metastases, resolution of axillary nodes. Met with Dr. Mancuso on 09/25/22 for second opinion.? After discussion, they elect to continue receiving treatment in [place] locally but patient did discontinue tamoxifen at [...] cough, SOB, abd pain, N/V/D, vaginal bleeding. 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 ER positive greater than 95%, AL +10% HER2 3+, Ki-67 +50%. She was [...] 06/27/2022. ctDNA on 06/27/2022 was 50 positive. 08/08/22:[facility] Hereditary cancer testing negative for BRCA1 and BRCA2. CT on 08/22/2022showed persistent bony metastases, resolution of axillary nodes. Met with Dr. Mancuso on 09/25/22 for second opinion.? After discussion, they elect to continue receiving treatment in [facility] locally but patient did discontinue tamoxifenat this [...] Had PET/CT and Echo done. 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% +, Her2 3+, initially started with [...] Cosigner Signature: Date (if applicable) CC: ~ [facility]07-10-2025 Progress note Author Cristóbal Ford [facility] Note Date/Time December 16, 2024 11:5 3am [facility] [place] [address] OFFICE VISIT Date of Service: 12/16/24 1118 MR#: [id number] Acct: [id number] Name: LISSETT RUSSELL Rep #: [id number] : 1970 From: Cristóbal Ford MD Age/Sex: 54/F Location: [facility] Status: Signed HPI Subjective Date of Service [...] 1:00 positions. ER positive greater than 95%, AL +10% HER2 3+, Ki-67 +50%. She was [...] 06/27/2022. ctDNA on 06/27/2022 was 50 positive. 3/2/23:[facility] Hereditary cancer testing negative for BRCA1 and BRCA2. CT on 08/22/2022showed persistent bony metastases, resolution of axillary nodes. Met with Dr. Mancuso on 09/25/22 for second opinion.? After discussion, they elect to continue receiving treatment in [place] locally but patient did discontinue tamoxifenat this [...] the day of right knee replacement, 03/11/24 ybgrcod70/11/24 while on anticoagulation. 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% +, Her2 3+, initially started with [...] Cosigner Signature: Date (if applicable) CC: ~ [facility] Work Phone: 1(359) 797-216106-19-2025 Evaluation note* Diagnosis Onset Date Resolution Status [...] 10 10:14am Breast cancer chronic March 10:14am [facility] Work Phone: 1(419) 816-319605-29-2025 Evaluation note* Diagnosis Onset Date Resolution Status [...] 11:26am Breast cancer chronic February 072024 11:26am [facility] Services Work Phone: 1(197) 214-833405-20-2025 Progress [facility] [address], [address] [place] [id number] OFFICE VISIT Date of Service: 10/26/24 MR#: [id number] Acct: [id number] Name: LISSETT RUSSELL Rep #: [id number] : 1970 Provider: LARA Melton Age/Sex: 54/F Location: [facility] Status: Signed Intake Vital Signs 10/14/24 10:06 [...] or stool; no urethral/ vaginal discharge. No yqmk-kxt-tkzxsurnuzvrsidmal have been taken to assist. No other [...] on 10/26/24 11: 17 Off Ur Spec Moody 1.015 Last Edit by Maria Isabel Lima [...] Cosigner Signature: Date (if applicable) CC: ~ [facility]05-20-2025 Progress note Author Dain [facility] Services Note Date/Time October 26, 2024 11:27 am [facility] [address], [address] [place] [address] OFFICE VISIT Date of Service: 10/26/24 MR#: [id number] Acct: [id number] Name: LISSETT RUSSELL Rep #: [id number] : 1970 Provider: LARA Melton Age/Sex: 54/F Location: [facility] Status: Signed Intake Vital Signs 10/14/24 10:06 [...] theurge to go but then she couldn't. [facility] Medical History HER2-positive carcinoma of breast Abnormal [...] or stool; no urethral/ vaginal discharge. No gprf-znq-dthkwakyjgcrtvethq have been taken to assist. No other [...] on 10/26/24 11: 17 Off Ur Spec Moody 1.015 Last Edit by Maria Isabel Lima [...] Cosigner Signature: Date (if applicable) CC: ~ [facility] Work Phone: 1(310) 552-568005-08-2025 Evaluation note* Diagnosis Onset Date Resolution Status [...] Breast cancer chronic January 06, 2025 10:48am [facility] Work Phone: 1(651) 841-707505-08-2025 Evaluation note* Diagnosis Onset Date Resolution Status [...] 025 7:48am Breast cancer chronic January 7:48am [facility] Work Phone: 1([phone]) 251-392404-17-2025 Evaluation note* Diagnosis Onset Date Resolution Status [...] 2024 10:42am Obesity acute December 29 7:29am [facility] Work Phone: 1(653) 254-634304-17-2025 Evaluation note* Diagnosis Onset Date Resolution Status [...] Breast cancer chronic January 06, 2025 10:48am [facility] Work Phone: 1(396) [phone] Evaluation note* Diagnosis Onset Date Resolution Status [...] Breast cancer chronic December 16, 2024 10:42am [facility] Work Phone: 1(953) 443-984003-06-2025 Radiology Diagnostic study note [facility] Imaging Services [address] [place] [address] Extremity Lower without Contra MR#: [id number] Acct: [id number] Name: LISSETT RUSSELL Rep #: [id number] : 1970 F 54 From: Osvaldo Cedillo MD PCP: LARA Gomez Status: REG CLI Study:Extremity Lower without Contra Date of Exam: 08/12/24 Exam# [id number] Ordering Dr: Stephen Serrano MD PROCEDURE: EXTREMITY [...] use of iterative reconstruction technique). Reading Location: [id number] CC: Dr. Dain Serrano MD; LARA Gomez ~ Product Representative: Signed [facility]03-06-2025 Evaluation note* Diagnosis Onset Date Resolution [...] for malignancy acute November 25, 2024 10:48am [facility] Work Phone: 1(316) 416-557902-13-2025 Evaluation note* Diagnosis Onset Date Resolution Status [...] malignancy acute October 14, 2024 9: 56am [facility] Work Phone: 1(397) [phone] Evaluation note* Diagnosis Onset Date Resolution Status [...] malignancy acute October 14, 2024 9: 56am [facility] Work Phone: 1(662) 915-628301-02-2025 Evaluation note* Diagnosis Onset Date Resolution Status [...] for malignancy acute September 02, 2024 11:33am [facility] Work Phone: 1(294) [phone] Evaluation note* Diagnosis Onset Date Resolution Status [...] for malignancy acute September 02, 2024 11:33am [facility] Work Phone: 1([phone]) [phone] Evaluation note* Diagnosis Onset Date Resolution Status [...] for malignancy acute August 12, 2024 9:17am [facility] Work Phone: 1([phone]) 374-972705-21-2024 History of Present illness Narrative* Gladis Rausch [...] w/ any further bleeding. documented in this [facility]05-03-2024 NotePatient: Lissett Russell Procedure Summary Date: 10/10/23 Room / Location: [address] Operating Room Anesthesia Start: 1034 Anesthesia [...] discharged once all PACU criteria has been met.[facility] [id number] NotePatient: Lissett Russell Procedure Summary Date: 10/10/23 Room / Location: [facility] Operating Room Anesthesia Start: 1034 Anesthesia Stop: [...] Allowed opportunity for questions and acknowledgement of understanding.[facility] [id number] NoteAirway Date/Time: 10/10/2023 10:44 AM Urgency: scheduled Airway not difficult General Information and Staff Patient location during procedure: Procedural Resident/NURSE'S AIDES TEACHER: Zina Hinds APRN - NURSE'S AIDES TEACHER Performed: NURSE'S AIDES TEACHER Indications and Patient Condition Indications for airway management: anesthesia Sedation level: Asleep Preoxygenated: yes Patient position: sniffing Mask difficulty assessment: 0 - not attempted Final Airway Details Final airway type: supraglottic airway Successful airway: Igel Size 4 Number of attempts at approach: 1 Additional Comments Lubed & placed w/ease, atraumatic, dentition & oral mucosa unchanged. [facility]05-03-2024 Note* Perioperative Nursing Note - Ivonne [...] and family. All questions answered. Verbalized understanding. [id number] Note* Perioperative Nursing Note - Ivonne Pineda [...] family. All questions answered. Verbalized understanding. [facility] [id number] Miscellaneous Notes* Perioperative Nursing Note - Ivonne [...] w/ D&C, Myosure Polypectomy Surgeon: Dr. Rausch Contract Admin: None Findings: Polyp noted on the posterior [...] room in stable condition. documented in this [facility]05-03-2024 Hospital Discharge instructions* Discharge Instructions* Gladis Rausch [...] other Questions please feel free to call [phone]. Dr. Rausch documented in this [facility]05-03-2024 Note* Op Note - Gladis Rausch MD - 10/10/2023 10:37 AM EDT Pre-Op Diagnosis: PMB, Endometrial Polyp Post-Op Diagnosis: Same Operative Procedure: Operative Hysteroscopy w/ D&C, Myosure Polypectomy Surgeon: Dr. Rausch Contract Admin: None Findings: Polyp noted on the posterior [...] to the recovery room in stable condition. [facility] [id number] Note* Op Note - Gladis Rausch MD - 10/10/2023 10:37 AM EDT Pre-Op Diagnosis: PMB, Endometrial Polyp Post-Op Diagnosis: Same Operative Procedure: Operative Hysteroscopy w/ D&C, Myosure Polypectomy Surgeon: Dr. Rausch Contract Admin: None Findings: Polyp noted on the posterior [...] the recovery room in stable condition. T [id number] NotePt w/ a Hx of Breast Ca [...] PMB Endometrial Polyp Plan: [facility]/ [facility] History and physical note* Gladis Rausch [...] PMB Endometrial Polyp [facility] Phone: 1(833) 572-979805-02-2024 History and physical note* Gladis Rausch MD [...] Plan: Hysteroscopy w/ D&C documented in this [facility]04-29-2024 NoteBasic chart review completed in preparation for [...] Surgical History: Procedure Laterality Date PORTACATH PLACEMENT [facility]04-29-2024 History of Present illness Narrative* SEGUN [...] Date PORTACATH PLACEMENT Right documented in this [facility]04-26-2024 NotePatient: Lissett Russell Procedure Information Date/Time: 10/10/23 1100 Procedure: HYSTEROSCOPY DILATION AND CURETTAGE, POLYPECTOMY - 60 MINS TOTAL Location: [facility] Operating Room Surgeons: Gladis Rausch [...] CURETTAGE, POLYPECTOMY - 60 MINS TOTAL Location: [facility] Operating Room Surgeons: Gladis Rausch MD [...] BMP, CBC - had both drawn at [facility] on 10/02/2023 - will scan into chart once faxed to PAT - METS >4 2) Hx of breast cancer in 2022 - MEDS: tamoxifen, Perjeta injections, Kanjinti - No surgery - Managed by [facility] - last Visit 10/02/2023 - CBC drawn at [facility] on 10/02/2023 3) Leg swelling - MEDS: lasix - Managed by [facility] - BMP drawn at [facility] on 10/02/2023 4) Hyperlipidemia - MEDS: [...] constipation. Patient denies hx of CAD, CHF, OR, TIA/CVA, diabetes, COPD, asthma, ANNALEE, DVT/PE. Past [...] OF SYSTEMS: Review o (more content not included)...[facility] [id number] NoteComprehensive Pre Surgical History and Physical ? Name: Lissett Russell : 1970 (Age-53 y.o.) Date of Service: Pt seen/examined on 10/03/2023 Procedure Information Date/Time: 10/10/23 1100 Procedure: HYSTEROSCOPY DILATION AND CURETTAGE, POLYPECTOMY - 60 MINS TOTAL Location: [facility] Operating Room Surgeons: Glaids Rausch MD Chief Complaint: Postmenopausal bleeding [N95.0] [...] BMP, CBC - had both drawn at [facility] on 10/02/2023 - will scan into chart once faxed to PAT - METS >4 2) Hx of breast cancer in 2022 - MEDS: tamoxifen, Perjeta injections, Kanjinti - No surgery - Managed by [facility] - last Visit 10/02/2023 - CBC drawn at [facility] on 10/02/2023 3) Leg swelling - MEDS: lasix - Managed by [facility] - BMP drawn at [facility] on 10/02/2023 4) Hyperlipidemia - MEDS: [...] constipation. Patient denies hx of CAD, CHF, OR, TIA/CVA, diabetes, COPD, asthma, ANNALEE, DVT/PE. Past [...] best of my ability. documented in this [facility]03-05-2024 History of Present illness Narrative* Nikko Giraldo [...] No follow-ups on file. documented in this [facility]12-05-2023 History of Present illness Narrative* Nikko Giraldo [...] Left breast lesion. Pathologic Diagnosis Outside Slides: [id number] (06/06/2022) A. Left Breast at 2 o'clock, [...] No follow-ups on file. documented in this [facility]04-18-2023 History of Present illness Narrative* Josh Mancuso MD - 09/24/2022 3:40 PM EDT Lissett Russell is a 52 y.o. female with history of ER+, AL+, HER2+, IDC of the left breast and [...] - Invasive Ductal Carcinoma - ER+ (>95%), AL+ (10%), HER2+ (3+), Ki-67 50%, 06/06/22 NGS [...] by her , Pablo. 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 Last PAP: Para: 2 [...] right chest wall. Patient offered a medical brassiere cup mold cutter for sensitive exam: declined The physical exam [...] y.o. female diagnosed on 06/06/22 with ER+, AL+, HER2+, IDC of the left breast and [...] in 05/2022 for a second opinion at [facility] pathology. -She will return on 10/15 for [...] The remainder as above. Josh Mancuso MD [facility] of Internal Medicine Division of Medical Oncology [facility] Instructions* Patient Instructions* Laurel Tomas RN [...] you @ https://takebackday.tereso.gov under the COLLECTION SITE SPECIMEN PROCESSOR tab. Never dispose of un-needed medications down [...] copies of your medical records please call [phone]. If you need to speak to a financial counselor please call . documented in this [facility]12[facility]30-2022 HCoV 229E RNA ERMIAS+non-probe Ql (Nph)Not Detected *NA* (06/07/22 10:36 AM)AH [employer]ero [id number] Evaluation + Plan note Future Scheduled Tests Radiology* MA Mammo Screening Bilateral w/ Johnny 04/17/21 [facility] Evaluation + Plan note Future Appointments Appointment Date:06/26/2022 03:00:00 PM Scheduled Provider:MAIDA KIM APRN-SYLVESTER [facility] Appointment Type:PC OV Future Scheduled Tests Laboratory* Lipid Profile 07/20/21 * Lipid Profile 05/22/22 * Complete Metabolic Panel 07/20/21 * Complete Metabolic Panel 05/22/22 [facility] Evaluation note* Diagnosis Onset Date Resolution Status Osteoarthritis of knees, bilateral acute Osteoarthritis of knees, bilateral acute [facility] Work Phone: Evaluation note* Diagnosis Onset Date [...] knee DJD acute Right knee DJD acute [facility] Work Phone: Evaluation note* Diagnosis Onset Date Resolution Status Left knee DJD acute Right knee DJD acute Left knee DJD acute Right knee DJD acute Abnormal mammogram of left breast acute Mastitis acute Abnormal mammogram of left breast acute Mastitis acute [facility] Work Phone: Evaluation note* Diagnosis Onset Date Resolution Status Left knee DJD acute Right knee DJD acute Abnormal mammogram of left breast acute Mastitis acute Abnormal mammogram of left breast acute Mastitis acute Abnormal mammogram of left breast acute Inflammatory breast cancer a cute Breast cancer acute Breast cancer acute [facility] Work Phone: Evaluation note* Diagnosis Onset Date Resolution Status Left knee DJD acute Right knee DJD acute Abnormal mammogram of left breast acute Mastitis acute Abnormal mammogram of left breast acute Mastitis acute Abnormal mammogram of left breast acute Inflammatory breast cancer a cute Breast cancer acute Breast cancer acute Abnormal magnetic resonance imaging of left breast acute Breast cancer acute [facility] Work Phone: Evaluation note* Diagnosis Onset [...] ibody treatment for malignancy acute Hypercalcemia acute [facility] Work Phone: Evaluation note* Diagnosis Onset [...] ibody treatment for malignancy acute Hypercalcemia acute [facility] Work Phone: evaluation note* Diagnosis Onset [...] acute Breast cancer acute Neck swelling acute [facility] Work Phone: evaluation note* Diagnosis Onset [...] monoclonal ant ibody treatment for malignancy acute [facility] Work Phone: evaluation note* Diagnosis Onset [...] skin acute Breast cancer acute Mucositis acute [facility] Work Phone: Evaluation note* Diagnosis Infiltrating ductal carcinoma of left breast- Primary Bone lesion Disorder of bone and cartilage, unspecified [facility] Diagnosis Onset Date Resolution Status [...] edema acute Osteoarthritis of knees, bilateral acute [facility] Work Phone: Evaluation note* Diagnosis Onset [...] monoclonal ant ibody treatment for malignancy acute [facility] Work Phone: Evaluation note* Diagnosis Onset [...] Encounter for monitoring cardiotoxic drug therapy acute [facility] Work Phone: Evaluation note* Diagnosis Onset [...] monoclonal ant ibody treatment for malignancy acute [facility] Work Phone: Evaluation note* Diagnosis Onset [...] for monoclonal ant ibody treatment for malignancy [facility] Work Phone: Evaluation note* Diagnosis Postmenopausal bleeding- Primary Care related to current tamoxifen use Prophylactic use of selective estrogen 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 (SERMs) History of left breast cancer documented in this encounter [facility]* Diagnosis Postmenopausal bleeding- Primary Care related to current tamoxifen use Prophylactic use of selective estrogen 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 (SERMs) Endometrial polyp Polyp of corpus uteri documented in this encounter [facility] note* Diagnosis Onset Date Resolution Status Blood [...] monoclonal ant ibody treatment for malignancy acute [facility] Work Phone: Evaluation note* Diagnosis Postmenopausal bleeding- Primary Endometrial polyp Polyp of corpus uteri documented in this encounter [facility]* Diagnosis Postmenopausal bleeding Polyp of corpus uteri documented in this encounter [facility] [place] [facility]* Diagnosis Follow-up surgery care- Primary Follow-up examination, following unspecified surgery [facility] Narrative No data available for this section [facility] Hospital Discharge instructions No data available for this section [facility] Progress note No data available for this section [facility] Reason for referral (narrative)* Consultation (Routine) - New Request Specialty Diagnoses / Procedures Referred By Dianna ann Referred To Contact Clinical Pathology/Laboratory Medicine Diagnoses Infiltrating ductal carcinoma of left breast Bone lesion Josh Mancuso MD [address], [address] [place] [address] Referral ID Status Reason Start Date Expiration Date V isits Requested Visits Authorized [id number] New Request 09/24/2022 10/19/2023 1 1 * Consultation (Urgent) - New Request Specialty Diagnoses / Procedures Referred By Contact Referred To Contact Interventional Radiology Diagnoses Infiltrating ductal carcinoma of left breast Bone lesion Paige Coronado APRN-CNP [address] [place] [address] Referral ID Status Reason Start Date Expiration Date V isits Requested Visits Authorized [id number] New Request 09/24/2022 10/19/2023 1 1 * Radiology (Routine) - New Request Specialty Diagnoses / Procedures Referred By Contdiana ann Referred To Contact Diagnoses Infiltrating ductal carcinoma of left breast Bone lesion Procedures NUC BONE SCAN WHOLE BODY Paige Coronado APRN-CNP [address] [place] [address] Referral ID Status Reason Start Date Expiration Date V isits Requested Visits Authorized [id number] New Request 09/24/2022 10/19/2023 2 2 * MRI/CAT Scan (Routine) - New Request Specialty Diagnoses / Procedures Referred By Dianna ann Referred To Contact Diagnoses Infiltrating ductal carcinoma of left breast Bone lesion Procedures CT ABDOMEN/PELVIS WITH CONTRAST CHG CT SCAN,ABDOMENT AND PELVIS,W CONTRAST Paige Coronado APRN-CNP [address] [place] [address] Referral ID Status Reason Start Date Expiration Date V isits Requested Visits Authorized [id number] New Request 09/24/2022 10/19/2023 1 1 * MRI/CAT Scan (Routine) - New Request Specialty Diagnoses / Procedures Referred By Dianna ann Referred To Contact Diagnoses Infiltrating ductal carcinoma of left breast Bone lesion Procedures CT CHEST WITH CONTRAST CHG DIAGNOSTIC COMPUTED TOMOGRAPHY THORAX W/CONTRAST Paige Coronado APRN-CNP [address] [place] [address] Referral ID Status Reason Start Date Expiration Date V isits Requested Visits Authorized [id number] New Request 09/24/2022 10/19/2023 1 1 [facility] (narrative)No reason for referral information available[facility] Work Phone: Summary Purpose Family History No Family History Records Found Relationship Condition Age at Onset Recorded Date/T jatinder brother Asthma Unknown sister Asthma Unknown grandfather Malignant neoplasm of colon Unknown mother Diabetes mellitus Unknown grandmother Cerebrovascular accident (CVA) Unknown Advance Directives No Advanced Directives Records Found Advance Directive Response Recorded Date/ Time Living Will No December 05, 2014 11:37am Power of Personal Property Appraiser No December 05 11:37am Advance Directive Response Recorded Date/ Time Living Will No December 05, 2014 10:37am Power of Personal Property Appraiser No December 05 10:37am Advance Directive Response Recorded Date/ Time Living Will No May 23 022 2:25am Power of Personal Property Appraiser No May 23, 2022 2:25am Advance Directive Response Recorded Date/ Time Living Will No June 14 8:49am Power of Personal Property Appraiser No June 14 023 8:49am Advance Directive Response Recorded Date/ Time Advance Directives on File No 2022 9:29am Advance Directives No June 27, 2022 9:29am Living Will No June 27 9:29am Power of Personal Property Appraiser No June 27, 2022 9:29am Advance Directive Response Recorded Date/ Time Advance Directives on File No 2022 3:02pm Advance Directives No June 28, 2022 3:02pm Living Will No June 28 3:02pm Power of Personal Property Appraiser No June 28, 2022 3:02pm Advance Directive Response Recorded Date/ Time Advance Directives on File Yes 2022 3:27pm Advance Directives No July 3:27pm Living Will Yes July 19, 023 3:27pm Power of Personal Property Appraiser Yes July 19, 2022 3:27pm Advance Directive Response Recorded Date/ Time Advance Directives on File Yes August 09, 2022 2:22pm Advance Directives No August 09 2:22pm Living Will Yes August 09, 2022 2:22pm Power of Personal Property Appraiser Yes August 09 2:22pm Advance Directive Response Recorded Date/ Time Advance Directives on File Yes August 09, 2022 3:22pm Advance Directives No August 09 3:22pm Living Will Yes August 09, 2022 3:22pm Power of Personal Property Appraiser Yes August 09 3:22pm Advance Directive Response Recorded Date/ Time Advance Directives on File Yes May 2 5th, 2023 2:45pm Advance Directives No October 31 2:45pm Living Will Yes October 31, 2022 2 :45pm Power of Personal Property Appraiser Yes October 31, 2022 2:45pm Advance Directive Response Recorded Date/ Time Advance Directives on File Yes Augus 2022 2:28pm Advance Directives No January 23, 2023 2:28pm Living Will No January 23 2:28pm Power of Personal Property Appraiser No January 23, 2 023 2:28pm Advance Directive Response Recorded Date/ Time Advance Directives on File Yes 2022 2:46pm Advance Directives No March 13, 2023 2:46pm Living Will No March 13 2:46pm Power of Personal Property Appraiser No March 13, 2 023 2:46pm Advance Directive Response Recorded Date/ Time Advance Directives on File Yes 2022 2:09pm Advance Directives No April 2:09pm Living Will No April 24, 2 023 2:09pm Power of Personal Property Appraiser No April 24, 2023 2:09pm Advance Directive Response Recorded Date/ Time Advance Directives on File Yes Febru 2023 3:09pm Advance Directives No July 3:09pm Living Will No July 31, 2 024 3:09pm Power of Personal Property Appraiser No July 31, 2023 3:09pm Latest Code Status on File Code Status Date Activated Date Inactivated Comments Full Code 10/10/2023 8:26 AM 10/10/2023 2:14 PM Latest Code Status on File Code Status Date Activated Date Inactivated Comments Full Code 10/10/2023 8:26 AM 10/10/2023 2:14 PM Advance Directive Response Recorded Date/ Time Living Will No January 15, 2024 12:48pm Power of Personal Property Appraiser No January 14 12:48pm Advance Directives on File Yes August 12, 2024 12:53pm Living Will No August 12, 2024 12:53pm Power of Personal Property Appraiser No August 12 12:53pm Advance Directives No August 12 12:53pm Advance Directive Response Recorded Date/ Time Living Will No January 15, 2024 12:48pm Do you have a Healthcare Power of Personal Property Appraiser? No January 15, 2024 12:48pm Advance Directives on File Yes August 12, 2024 12:53pm Living Will No August 12, 2024 12:53pm Do you have a Healthcare Power of Personal Property Appraiser? No August 12, 2024 12:53pm Advance Directives No August 12 12:53pm Advance Directive Response Recorded Date/ Time Living Will No January 15, 2024 12:48pm Do you have a Healthcare Power of Personal Property Appraiser? No January 15, 2024 12:48pm Advance Directives on File Yes September 02, 2024 12:37pm Living Will No September 02, 2024 12:37pm Do you have a Healthcare Power of Personal Property Appraiser? No September 02, 2024 12:37pm Advance Directives No September 02 12:37pm Advance Directive Response Recorded Date/ Time Advance Directives on File Yes October 142024 11:24am Living Will No October 14, 2024 11 :24am Do you have a Healthcare Power of Personal Property Appraiser? No October 14, 2024 11:24am Advance Directives No October 14, 2024 11:24am Advance Directive Response Recorded Date/ Time Advance Directives on File Yes October 082024 12:35pm Living Will No November 04, 2024 1 2:35pm Do you have a Healthcare Power of Personal Property Appraiser? No November 04, 2024 12:35pm Advance Directives No November 04 12:35pm Advance Directive Response Recorded Date/ Time Advance Directives on File Yes November 25, 2024 12:40pm Living Will No November 25, 2024 12:40pm Do you have a Healthcare Power of Personal Property Appraiser? No November 25, 2024 12:40pm Advance Directives No November 25 12:40pm Advance Directive Response Recorded Date/ Time Advance Directives on File Yes December 16, 2024 11:57am Living Will No December 16, 2024 11:57am Do you have a Healthcare Power of Personal Property Appraiser? No December 16, 2024 11:57am Advance Directives No December 16 11:57am Advance Directive Response Recorded Date/ Time Advance Directives on File Yes January 06, 2025 12:40pm Living Will No January 06, 2025 12:40pm Do you have a Healthcare Power of Personal Property Appraiser? No January 06, 2025 12:40pm Advance Directives No January 06 12:40pm Advance Directive Response Recorded Date/ Time Advance Directives on File Yes Connor 2024 9:20am Living Will No January 27 9:20am Do you have a Healthcare Power of Personal Property Appraiser? No January 27, 2025 9:20am Advance Directives No January 27, 2025 9:20am Advance Directive Response Recorded Date/ Time Advance Directives on File Yes Rosey guy 2024 12:44pm Living Will No February 17, 2025 12:44pm Do you have a Healthcare Power of Personal Property Appraiser? No February 17, 2025 12:44pm Advance Directives [...] NO LABS [place] February 17, 2025 11:26am [facility] March 08 7:55am 3 WKS [...] section and content) DATE CREATED AUTHOR 12/02/2017 [facility] DATE CREATED AUTHOR AUTHOR'S ORGANIZ ATION 10/21/2022 [facility] DATE CREATED AUTHOR AUTHOR'S ORGANIZ ATION 05/04/2023 [facility] ([place]) DATE CREATED AUTHOR AUTHOR'S ORGANIZ ATION 10/31/2023 [facility] DATE CREATED AUTHOR AUTHOR'S ORGANIZ ATION 03/28/2025 [facility] Care Team (unrecognized sect ion and content) Care Team Personnel Name: Maranda Ambrosio Clertahmina Ward PT Position: P3 Scheduling - [employer] Advanced Member Role: Other Name: MAIDA KIM WAITER-LIQUIFIED NATURAL GAS TECHNICIAN Position: P4 Advanced Practice Nurse Member Role: Primary Care Physician Address: Address: [address] [place] [address]- Care Team Related Persons Name: PABLO RUSSELL Name: MIKHAIL JOHNSON Address: Home [address] [place] [address] [address] [place], [place] [id number] [place] Care Teams (unrecognized sec tion and content) Team Status: Active Member Role Status Dates Maida Kim POWER ELECTRONICS RESEARCH ENGINEER, POWER ELECTRONICS RESEARCH ENGINEER-C Family Provider Active Maida Kim NP, POWER ELECTRONICS RESEARCH ENGINEER-C Primary Care Provider Active Team Status: Inactive Member Role Status Dates Maida Kim NP, POWER ELECTRONICS RESEARCH ENGINEER-C Primary Care Provider, Referri ng Provider Active Blue BERMUDEZ, PA Attending Provider Active Team Status: Inactive Member Role Status Carey Kim NP, POWER ELECTRONICS RESEARCH ENGINEER-C Primary Care Provider, Referri ng Provider Active Dr. Josh Wolfe MD Attending Provider Active Team Status: Inactive Member Role Status Dates Maida Kim NP, POWER ELECTRONICS RESEARCH ENGINEER-C Primary Care Provider, Referri ng Provider Active Dr. Cristóbal Ford MD Attending Provider Active Team Status: Active Member Role Status Dates Maida Kim NP, POWER ELECTRONICS RESEARCH ENGINEER-C Primary Care Provider Active Dr. Josh Wolfe MD Attending Provid er, Referring Provider, Other Provider Active Dr. Cristóbal Ford MD Other Provider Active Team Status: Active Member Role Status Dates Maida Kim NP, POWER ELECTRONICS RESEARCH ENGINEER-C Primary Care Provider Active Dr. Jey Mackenzie MD Attending Provider Active Team Status: Inactive Member Role Status Dates Maida Kim NP, POWER ELECTRONICS RESEARCH ENGINEER-C Primary Care Provider, Referri ng Provider Active Genna Zuniga POWER ELECTRONICS RESEARCH ENGINEER, POWER ELECTRONICS RESEARCH ENGINEER-C Attending Provider Active Team Status: Inactive Member Role Status Carey Kim POWER ELECTRONICS RESEARCH ENGINEER, POWER ELECTRONICS RESEARCH ENGINEER-C Primary Care Provider, Attendi ng Provider Active Team Status: Inactive Member Role Status Carey Kim POWER ELECTRONICS RESEARCH ENGINEER, POWER ELECTRONICS RESEARCH ENGINEER-C Primary Care Pro vider, Attending Provider, Referring Provider Active Team Status: Inactive Member Role Status Carey Kim POWER ELECTRONICS RESEARCH ENGINEER, POWER ELECTRONICS RESEARCH ENGINEER-C Primary Care Provider Active Dr. Joaquín Ng MD Attending Provider, Emergency Provi winter Active Team Status: Inactive Member Role Status Carey Kim POWER ELECTRONICS RESEARCH ENGINEER, POWER ELECTRONICS RESEARCH ENGINEER-C Primary Care Provider Active Dr. Josh Wolfe MD Attending Provider, Referring Provider Active Team Status: Active Member Role Status Carey Kim POWER ELECTRONICS RESEARCH ENGINEER, POWER ELECTRONICS RESEARCH ENGINEER-C Primary Care Provider Active Dr. Cristóbal Ford MD Attending Provider, Referring Pro vider Active Team Status: Inactive Member Role Status Carey Kim POWER ELECTRONICS RESEARCH ENGINEER, POWER ELECTRONICS RESEARCH ENGINEER-C Primary Care Provider Active Dr. Cristóbal Ford MD Attending Provider, Referring Pro vider Active Team Status: Inactive Member Role Status Carey Kim POWER ELECTRONICS RESEARCH ENGINEER, POWER ELECTRONICS RESEARCH ENGINEER-C Primary Care Provider Active Dr. Cristóbal Ford MD Attending Provider Active Team Status: Inactive Member Role Status Carey Kim POWER ELECTRONICS RESEARCH ENGINEER, POWER ELECTRONICS RESEARCH ENGINEER-C Primary Care Provider Active Dr. Josh Wolfe MD Attending Provider, Referring Provider Active Dr. Cristóbal Ford MD Other Provider Active Team Status: Inactive Member Role Status Carey Kim POWER ELECTRONICS RESEARCH ENGINEER, POWER ELECTRONICS RESEARCH ENGINEER-C Primary Care Provider Active Genna Zuniga POWER ELECTRONICS RESEARCH ENGINEER, POWER ELECTRONICS RESEARCH ENGINEER-C Attending Provider, Referring Provider Active Team Status: Active Member Role Status Carey Kim POWER ELECTRONICS RESEARCH ENGINEER, POWER ELECTRONICS RESEARCH ENGINEER-C Primary Care Provider Active Dr. Josh Wolfe MD Attending Provider Active Team Status: Inactive Member Role Status Carey Kim POWER ELECTRONICS RESEARCH ENGINEER, POWER ELECTRONICS RESEARCH ENGINEER-C Primary Care Provider, Referri ng Provider Active Dr. Cristóbal Ford MD Active Genna Zuniga POWER ELECTRONICS RESEARCH ENGINEER, POWER ELECTRONICS RESEARCH ENGINEER-C Attending Provider Active Team Status: Inactive Member Role Status Carey Kim POWER ELECTRONICS RESEARCH ENGINEER, POWER ELECTRONICS RESEARCH ENGINEER-C Primary Care Provider Active Genna Zuniga POWER ELECTRONICS RESEARCH ENGINEER, POWER ELECTRONICS RESEARCH ENGINEER-C Attending Provider Active Team Status: Active Member Role Status aCrey Kim NP, POWER ELECTRONICS RESEARCH ENGINEER-C Primary Care Provider Active Dr. Josh Wolfe MD Attending Provider Active Dr. Cristóbal Ford MD Referring Provider Active Corrugator Relationship Specialty Start Date End Date Maida Kim INTERFACE ENGINEER [address] [place] [address] PCP - General Family Medicine 09/24/22 Josh Mancuso MD [address], [address] [place] [id number] Oncologist Medical Oncology 09/23/22 Paige Coronado, WAITER-LIQUIFIED NATURAL GAS TECHNICIAN [address] [place], [place] [id number] Nurse Practitioner Medical Oncology 09/23/22 Cristóbal Ford MB/ERIC [address] [place] [id number] Hematology 09/23/22 Laurel Tomas, [place] Registered Nurse Medical Oncology 09/24/22 Team Status: Active Member Role Status Dates Maida Kim POWER ELECTRONICS RESEARCH ENGINEER, POWER ELECTRONICS RESEARCH ENGINEER-C Primary Care Provider Active Dr. Jesus Varma MD Attending Provider Active Team Status: Active Member Role Status Dates Maida Kim POWER ELECTRONICS RESEARCH ENGINEER, POWER ELECTRONICS RESEARCH ENGINEER-C Primary Care Provider Active Dr. Harjinder Peters MD Attending Provider Active Team Status: Inactive Member Role Status Dates Maida Kim POWER ELECTRONICS RESEARCH ENGINEER, POWER ELECTRONICS RESEARCH ENGINEER-C Primary Care Provider, Referri ng Provider Active Genna Zuniga POWER ELECTRONICS RESEARCH ENGINEER, POWER ELECTRONICS RESEARCH ENGINEER-C Active Dr. Cristóbal Ford MD Attending Provider Active Team Status: Active Member Role Status Dates Maida Kim NP, POWER ELECTRONICS RESEARCH ENGINEER-C Primary Care Provider Active Dr. Harjinder Peters MD Attending Provider Active Dr. Cristóbal Ford MD Referring Provider Active Team Status: Active Member Role Status Dates Maida Kim NP, POWER ELECTRONICS RESEARCH ENGINEER-C Primary Care Provider Active Dr. Emelia Carrington MD Attending Provider Active Team Status: Active Member Role Status Dates Maida Kim POWER ELECTRONICS RESEARCH ENGINEER, POWER ELECTRONICS RESEARCH ENGINEER-C Primary Care Provider Active Liliane Hall Attending Provider Active Corrugator Relationship Specialty Start Date End Date [facility] [address] [place] [address] PCP - General 05/13/23 Corrugator Relationship Specialty Start Date End Date [facility] [address] [place] [address] PCP - General 05/13/23 Team Status: Inactive Member Role Status Dates Maida Kim POWER ELECTRONICS RESEARCH ENGINEER, POWER ELECTRONICS RESEARCH ENGINEER-C Primary Care Provider, Referri ng Provider Active Dr. Jesus Varma MD Attending Provider Active Team Status: Inactive Member Role Status Dates Maida Kim POWER ELECTRONICS RESEARCH ENGINEER, POWER ELECTRONICS RESEARCH ENGINEER-C Primary Care Provider Active Dr. Jesus Varma MD Attending Provider, Referring Pro vider Active Corrugator Relationship Specialty Start Date End Date [facility] [address] [place] [address] PCP - General 05/13/23 Corrugator Relationship Specialty Start Date End Date Kaya Kimica Stephen [address] [place] [address] PCP - General Nurse Practitioner 09/26/23 Corrugator Relationship Specialty Start Date End Date Julio Maida S [address] [place] [address] PCP - General Nurse Practitioner 09/26/23 Corrugator Relationship Specialty Start Date End Date Kaya Kimica Stephen [address] [place] [address] PCP - General Nurse Practitioner 09/26/23 Team Status: Active Member Role Status Dates Blue Alicia PA, PA Primary Care Provider Active Team Status: Inactive Member Role Status Dates Maida Kim POWER ELECTRONICS RESEARCH ENGINEER, POWER ELECTRONICS RESEARCH ENGINEER-C Primary Care Provider Active Start: April 29, 2024 End: April 29, 2024 Maida Kim POWER ELECTRONICS RESEARCH ENGINEER, POWER ELECTRONICS RESEARCH ENGINEER-C Referring Provider Active Start: April 29, 2024 End: April 29, 2024 Genna Zuniga POWER ELECTRONICS RESEARCH ENGINEER, POWER ELECTRONICS RESEARCH ENGINEER-C Attending Provider Active Start: April 29, 2024 End: April 29, 2024 Team Status: Inactive Member Role Status Dates Maida Kim POWER ELECTRONICS RESEARCH ENGINEER, POWER ELECTRONICS RESEARCH ENGINEER-C Primary Care Provider Active Start: May 19, 2024 End: May 19, 2024 Genna Zuniga POWER ELECTRONICS RESEARCH ENGINEER, POWER ELECTRONICS RESEARCH ENGINEER-C Attending Provider Active Start: May 19, 2024 End: May 19, 2024 Genna Aleksander POWER ELECTRONICS RESEARCH ENGINEER, POWER ELECTRONICS RESEARCH ENGINEER-C Referring Provider Active Start: May 19, 2024 End: May 19, 2024 Team Status: Active Member Role Status Dates Maida Kim POWER ELECTRONICS RESEARCH ENGINEER, POWER ELECTRONICS RESEARCH ENGINEER-C Primary Care Provider Active Start: May 19, 2024 Dr. Jesus Varma MD Attending Provider Active S tart: May 19, 2024 Team Status: Inactive Member Role Status Dates Maida Kim POWER ELECTRONICS RESEARCH ENGINEER, POWER ELECTRONICS RESEARCH ENGINEER-C Primary Care Provider Active Start: May 20, 2024 End: May 20, 2024 Maida Kim POWER ELECTRONICS RESEARCH ENGINEER, POWER ELECTRONICS RESEARCH ENGINEER-C Referring Provider Active Start: May 20, 2024 End: May 20, 2024 Dr. Cristóbal Ford MD Attending Provider Active S tart: May 20, 2024 End: May 20, 2024 Team Status: Inactive Member Role Status Dates Maida Kim POWER ELECTRONICS RESEARCH ENGINEER, POWER ELECTRONICS RESEARCH ENGINEER-C Primary Care Provider Active Start: June 10, 2024 End: June 10, 2024 Maida Kim POWER ELECTRONICS RESEARCH ENGINEER, POWER ELECTRONICS RESEARCH ENGINEER-C Referring Provider Active Start: June 10, 2024 End: June 10, 2024 Dr. Cristóbal Ford MD Attending Provider Active S tart: June 10, 2024 End: June 10, 2024 Team Status: Inactive Member Role Status Dates Maida Kim POWER ELECTRONICS RESEARCH ENGINEER, POWER ELECTRONICS RESEARCH ENGINEER-C Primary Care Provider Active Start: June 15, 2024 End: June 15, 2024 Maida Kim POWER ELECTRONICS RESEARCH ENGINEER, POWER ELECTRONICS RESEARCH ENGINEER-C Referring Provider Active Start: June 15, 2024 End: June 15, 2024 Dr. Cristóbal Ford MD Attending Provider Active S tart: June 15, 2024 End: June 15, 2024 Team Status: Inactive Member Role Status Dates Maida Kim POWER ELECTRONICS RESEARCH ENGINEER, POWER ELECTRONICS RESEARCH ENGINEER-C Primary Care Provider Active Start: June 16, 2024 End: June 16, 2024 Maida Kim POWER ELECTRONICS RESEARCH ENGINEER, POWER ELECTRONICS RESEARCH ENGINEER-C Referring Provider Active Start: June 16, 2024 End: June 16, 2024 Dr. Yvonne Hinojosa MD Attending Provider Active Start: June 16, 2024 End: June 16, 2024 Team Status: Inactive Member Role Status Dates Maida Kim POWER ELECTRONICS RESEARCH ENGINEER, POWER ELECTRONICS RESEARCH ENGINEER-C Primary Care Provider Active Start: June 16, 2024 End: June 16, 2024 Dr. Yvonne Hinojosa MD Attending Provider Active Start: June 16, 2024 End: June 16, 2024 Dr. Yvonne Hinojosa MD Referring Provider Active Start: June 16, 2024 End: June 16, 2024 Team Status: Inactive Member Role Status Dates Maida Kim POWER ELECTRONICS RESEARCH ENGINEER, POWER ELECTRONICS RESEARCH ENGINEER-C Referring Provider Active Start: June 23, 2024 [...] 2024 End: July 22, 2024 Genna Zuniga POWER ELECTRONICS RESEARCH ENGINEER, POWER ELECTRONICS RESEARCH ENGINEER-C Attending Provider Active Start: July 22, 2024 End: July 22, 2024 Team Status: Inactive Member Role Status Dates Blue Alicia PA, PA Primary Care Provider Active Start: July 22, 2024 End: July 22, 2024 Genna Zuniga POWER ELECTRONICS RESEARCH ENGINEER, POWER ELECTRONICS RESEARCH ENGINEER-C Attending Provider Active Start: July 22, 2024 End: July 22, 2024 Genna Zuniga POWER ELECTRONICS RESEARCH ENGINEER, POWER ELECTRONICS RESEARCH ENGINEER-C Referring Provider Active Start: July 22, 2024 End: July 22, 2024 Team Status: Active Member Role Status Dates Maida Kim POWER ELECTRONICS RESEARCH ENGINEER, POWER ELECTRONICS RESEARCH ENGINEER-C Primary Care Provider Active Start: August 12, 2024 Dr. Cristóbal Ford MD Attending Provider Active S tart: August 12, 2024 Dr. Cristóbal Ford MD Referring Provider Active S tart: August 12, 2024 Genna Zuniga POWER ELECTRONICS RESEARCH ENGINEER, POWER ELECTRONICS RESEARCH ENGINEER-C Other Provider Active St art: August 12, [...] 2024 End: August 31, 2024 Genna Zuniga POWER ELECTRONICS RESEARCH ENGINEER, POWER ELECTRONICS RESEARCH ENGINEER-C Attending Provider Active Start: August 31, 2024 End: August 31, 2024 Genna Zuniga POWER ELECTRONICS RESEARCH ENGINEER, POWER ELECTRONICS RESEARCH ENGINEER-C Referring Provider Active Start: August 31, 2024 [...] September 02, 2024 End: September 02, 2024 lBue Alicia PA, PA Primary Care Provider Active Start: September 02, 2024 End: September 02, 2024 Blue BERMUDEZ, PA Referring Provider Active St art: September 02, 2024 End: September 02, 2024 Team Status: Active Member Role Status Dates Maida Kim POWER ELECTRONICS RESEARCH ENGINEER, POWER ELECTRONICS RESEARCH ENGINEER-C Primary Care Provider Active Start: September 02, 2024 Dr. Cristóbal Ford MD Attending Provider Active S tart: September 02, 2024 Dr. Cristóbal Ford MD Referring Provider Active S tart: September 02, 2024 Genna Zuniga POWER ELECTRONICS RESEARCH ENGINEER, POWER ELECTRONICS RESEARCH ENGINEER-C Other Provider Active St art: September 02, [...] 2024 End: September 23, 2024 Genna Zuniga POWER ELECTRONICS RESEARCH ENGINEER, POWER ELECTRONICS RESEARCH ENGINEER-C Attending Provider Active Start: September 23, 2024 End: September 23, 2024 Team Status: Inactive Member Role Status Dates Blue Alicia PA, PA Primary Care Provider Active Start: October 14, 2024 End: October 14, 2024 Blue Alicia PA, PA Referring Provider Active St art: October 14, 2024 End: October 14, 2024 Genna Zuniga POWER ELECTRONICS RESEARCH ENGINEER, POWER ELECTRONICS RESEARCH ENGINEER-C Attending Provider Active Start: October 14, 2024 End: October 14, 2024 Team Status: Active Member Role Status Dates Maida Kim POWER ELECTRONICS RESEARCH ENGINEER, POWER ELECTRONICS RESEARCH ENGINEER-C Primary Care Provider Active Start: October 14, 2024 Dr. Cristóbal Ford MD Referring Provider Active S tart: October 14, 2024 Genna Zuniga POWER ELECTRONICS RESEARCH ENGINEER, POWER ELECTRONICS RESEARCH ENGINEER-C Attending Provider Active Start: October 14, 2024 Genna Zuniga POWER ELECTRONICS RESEARCH ENGINEER, POWER ELECTRONICS RESEARCH ENGINEER-C Other Provider Active St art: October 14, [...] Active Member Role Status Dates Maida Kim POWER ELECTRONICS RESEARCH ENGINEER, POWER ELECTRONICS RESEARCH ENGINEER-C Primary Care Provider Active Start: November 04, 2024 Dr. Cristóbal Ford MD Referring Provider Active S tart: November 04, 2024 Genna Zuniga POWER ELECTRONICS RESEARCH ENGINEER, POWER ELECTRONICS RESEARCH ENGINEER-C Attending Provider Active Start: November 04, 2024 Genna Zuniga POWER ELECTRONICS RESEARCH ENGINEER, POWER ELECTRONICS RESEARCH ENGINEER-C Other Provider Active St art: November 04, [...] Status: Active Member Role Status Dates Maida [place] POWER ELECTRONICS RESEARCH ENGINEER, POWER ELECTRONICS RESEARCH ENGINEER-C Primary Care Provider Active Start: November 25, 2024 Dr. Cristóbal Ford MD Referring Provider Active S tart: November 25, 2024 Genna Zuniga POWER ELECTRONICS RESEARCH ENGINEER, POWER ELECTRONICS RESEARCH ENGINEER-C Attending Provider Active Start: November 25, 2024 Genna Zuniga POWER ELECTRONICS RESEARCH ENGINEER, POWER ELECTRONICS RESEARCH ENGINEER-C Other Provider Active St art: November 25, [...] 2024 End: August 31, 2024 Genna Zuniga POWER ELECTRONICS RESEARCH ENGINEER, POWER ELECTRONICS RESEARCH ENGINEER-C Attending Provider Active Start: August 31, 2024 End: August 31, 2024 Genna Zuniga POWER ELECTRONICS RESEARCH ENGINEER, POWER ELECTRONICS RESEARCH ENGINEER-C Referring Provider Active Start: August 31, 2024 [...] 2024 End: September 23, 2024 Genna Zuniga POWER ELECTRONICS RESEARCH ENGINEER, POWER ELECTRONICS RESEARCH ENGINEER-C Attending Provider Active Start: September 23, 2024 End: September 23, 2024 Team Status: Inactive Member Role/Relationship Status Dates Blue Alicia PA, PA Primary Care Provider Active Start: October 14, 2024 End: October 14, 2024 Blue Alicia PA, PA Referring Provider Active St art: October 14, 2024 End: October 14, 2024 Genna Zuniga POWER ELECTRONICS RESEARCH ENGINEER, POWER ELECTRONICS RESEARCH ENGINEER-C Attending Provider Active Start: October 14, 2024 [...] Active Member Role/Relationship Status Dates Maida Kim POWER ELECTRONICS RESEARCH ENGINEER, POWER ELECTRONICS RESEARCH ENGINEER-C Primary Care Provider Active Start: November 25, 2024 Dr. Cristóbal Ford MD Referring Provider Active S tart: November 25, 2024 Genna Zuniga POWER ELECTRONICS RESEARCH ENGINEER, POWER ELECTRONICS RESEARCH ENGINEER-C Attending Provider Active Start: November 25, 2024 Genna Zuniga POWER ELECTRONICS RESEARCH ENGINEER, POWER ELECTRONICS RESEARCH ENGINEER-C Other Provider Active St art: November 25, [...] 2024 End: August 31, 2024 Genna Zuniga POWER ELECTRONICS RESEARCH ENGINEER, POWER ELECTRONICS RESEARCH ENGINEER-C Attending Provider Active Start: August 31, 2024 End: August 31, 2024 Genna Zuniga POWER ELECTRONICS RESEARCH ENGINEER, POWER ELECTRONICS RESEARCH ENGINEER-C Referring Provider Active Start: August 31, 2024 [...] 2024 End: September 23, 2024 Genna Zuniga POWER ELECTRONICS RESEARCH ENGINEER, POWER ELECTRONICS RESEARCH ENGINEER-C Attending Provider Active Start: September 23, 2024 End: September 23, 2024 Team Status: Inactive Member Role/Relationship Status Dates Blue Alicia PA, PA Primary Care Provider Active Start: October 14, 2024 End: October 14, 2024 Blue Alicia PA, PA Referring Provider Active St art: October 14, 2024 End: October 14, 2024 Genna Zuniga POWER ELECTRONICS RESEARCH ENGINEER, POWER ELECTRONICS RESEARCH ENGINEER-C Attending Provider Active Start: October 14, 2024 [...] Active Member Role/Relationship Status Dates Maida Kim POWER ELECTRONICS RESEARCH ENGINEER, POWER ELECTRONICS RESEARCH ENGINEER-C Primary Care Provider Active Start: December 16, 2024 Dr. Cristóbal Ford MD Referring Provider Active S tart: December 16, 2024 Genna Zuniga POWER ELECTRONICS RESEARCH ENGINEER, POWER ELECTRONICS RESEARCH ENGINEER-C Attending Provider Active Start: December 16, 2024 Genna Zuniga POWER ELECTRONICS RESEARCH ENGINEER, POWER ELECTRONICS RESEARCH ENGINEER-C Other Provider Active St art: December 16, [...] 2024 End: September 23, 2024 Genna Zuniga POWER ELECTRONICS RESEARCH ENGINEER, POWER ELECTRONICS RESEARCH ENGINEER-C Attending Provider Active Start: September 23, 2024 End: September 23, 2024 Team Status: Inactive Member Role/Relationship Status Dates Blue Alicia PA, PA Primary Care Provider Active Start: October 14, 2024 End: October 14, 2024 Blue Alicia PA, PA Referring Provider Active St art: October 14, 2024 End: October 14, 2024 Genna Zuniga POWER ELECTRONICS RESEARCH ENGINEER, POWER ELECTRONICS RESEARCH ENGINEER-C Attending Provider Active Start: October 14, 2024 [...] Team Status: Inactive Member Role/Relationship Status Dates Bleu Alicia PA, PA Primary Care Provider Active [...] Active Member Role/Relationship Status Dates Maida Kim POWER ELECTRONICS RESEARCH ENGINEER, POWER ELECTRONICS RESEARCH ENGINEER-C Primary Care Provider Active Start: December 16, 2024 Dr. Cristóbal Ford MD Referring Provider Active S tart: December 16, 2024 Genna Zuniga POWER ELECTRONICS RESEARCH ENGINEER, POWER ELECTRONICS RESEARCH ENGINEER-C Attending Provider Active Start: December 16, 2024 Genna Zuniga POWER ELECTRONICS RESEARCH ENGINEER, POWER ELECTRONICS RESEARCH ENGINEER-C Other Provider Active St art: December 16, [...] Team Status: Inactive Member Role/Relationship Status Dates Bule Alicia PA, PA Primary Care Provider Active Start: January 04, 2025 End: January 04, 2025 Blue Alicia PA, PA Referring Provider Active St art: January 04, 2025 End: January 04, 2025 BIM NURSE Attending Provider Active Start: ly 2024 End: January 04, 2025 Team Status: Active Member Role/Relationship Status Dates Maida Kim POWER ELECTRONICS RESEARCH ENGINEER, POWER ELECTRONICS RESEARCH ENGINEER-C Primary Care Provider Active Start: January 06, 2025 Dr. Cristóbal Ford MD Referring Provider Active S tart: January 06, 2025 Genna Zuniga POWER ELECTRONICS RESEARCH ENGINEER, POWER ELECTRONICS RESEARCH ENGINEER-C Attending Provider Active Start: January 06, 2025 Genna Zuniga POWER ELECTRONICS RESEARCH ENGINEER, POWER ELECTRONICS RESEARCH ENGINEER-C Other Provider Active St art: January 06, [...] 2024 End: October 14, 2024 Genna Zuniga POWER ELECTRONICS RESEARCH ENGINEER, POWER ELECTRONICS RESEARCH ENGINEER-C Attending Provider Active Start: October 14, 2024 [...] November 04, 2024 End: November 04, 2024 Bule Alicia PA, PA Referring Provider Active St [...] 2025 End: January 04, 2025 Maida Jones POWER ELECTRONICS RESEARCH ENGINEER-C Attending Provider Active Start: January 04, 2025 [...] Active Member Role/Relationship Status Dates Maida Kim POWER ELECTRONICS RESEARCH ENGINEER, POWER ELECTRONICS RESEARCH ENGINEER-C Primary Care Provider Active Start: January 27, 2025 Dr. Cristóbal Ford MD Referring Provider Active S tart: January 27, 2025 Genna Zuniga NP, POWER ELECTRONICS RESEARCH ENGINEER-C Attending Provider Active Start: January 27, 2025 Genna Zuniga POWER ELECTRONICS RESEARCH ENGINEER, POWER ELECTRONICS RESEARCH ENGINEER-C Other Provider Active St art: January 27, 2025 Team Status: Inactive Member Role/Relationship Status Dates Blue Wayt PA, PA Primary Care Provider Active Start: January 27, 2025 End: January 27, 2025 Blue Alicia PA, PA Referring Provider Active St art: January 27, 2025 End: January 27, 2025 Genna Zuniga POWER ELECTRONICS RESEARCH ENGINEER, POWER ELECTRONICS RESEARCH ENGINEER-C Attending Provider Active Start: January 27, 2025 [...] 2025 End: January 27, 2025 Genna Zuniga POWER ELECTRONICS RESEARCH ENGINEER, POWER ELECTRONICS RESEARCH ENGINEER-C Attending Provider Active Start: January 27, 2025 [...] 2025 End: February 17, 2025 Genna Zuniga POWER ELECTRONICS RESEARCH ENGINEER, POWER ELECTRONICS RESEARCH ENGINEER-C Attending Provider Active Start: February 17, 2025 End: February 17, 2025 Team Status: Active Member Role/Relationship Status Dates Maida Kim POWER ELECTRONICS RESEARCH ENGINEER, POWER ELECTRONICS RESEARCH ENGINEER-C Primary Care Provider Active Start: February 17, 2025 Dr. Cristóbal Ford MD Referring Provider Active S tart: February 17, 2025 Genna Zuniga POWER ELECTRONICS RESEARCH ENGINEER, POWER ELECTRONICS RESEARCH ENGINEER-C Attending Provider Active Start: February 17, 2025 Genna Zuniga POWER ELECTRONICS RESEARCH ENGINEER, POWER ELECTRONICS RESEARCH ENGINEER-C Other Provider Active St art: February 17, [...] 2025 End: January 27, 2025 Genna Zuniga POWER ELECTRONICS RESEARCH ENGINEER, POWER ELECTRONICS RESEARCH ENGINEER-C Attending physician Active Start: January 27, 2025 [...] 2025 End: February 17, 2025 Genna Zuniga POWER ELECTRONICS RESEARCH ENGINEER, POWER ELECTRONICS RESEARCH ENGINEER-C Attending physician Active Start: February 17, 2025 End: February 17, 2025 Team Status: Active Member Role/Relationship Status Dates Blue BERMUDEZ, PA Primary care physician Active Start: 2025 Genna Zuniga POWER ELECTRONICS RESEARCH ENGINEER, POWER ELECTRONICS RESEARCH ENGINEER-C Attending physician Active Start: 2025 Genna Zuniga POWER ELECTRONICS RESEARCH ENGINEER, POWER ELECTRONICS RESEARCH ENGINEER-C Referring Provider Active Start: 2025 Team Status: [...] Active Member Role/Relationship Status Dates Maida Kim POWER ELECTRONICS RESEARCH ENGINEER, POWER ELECTRONICS RESEARCH ENGINEER-C Primary care physician Active Start: March 10, 2025 Dr. 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, [address] [place] [address] Referral ID Status Reason Start Date Expiration Date V isits Requested Visits Authorized [id number] New Request 09/24/2022 10/19/2023 1 1 Reason Comments Vaginal Bleeding Reason Comments Follow-up Review SIS Reason Comments Surgical Consult Hysteroscopy D&C Specialty Diagnoses / Procedures Referred By Dianna ann Referred To Contact Diagnoses Postmenopausal bleeding Polyp of corpus uteri Procedures AL HYSTEROSCOPY BX ENDOMETRIUM&/POLYPC W/WO D&C HYSTEROSCOPY DILATION AND CURETTAGE, POLYPECTOMY Gladis Rausch MD [address] [address] [facility] [place] [address] [place] [address] Referral ID Status Reason Start Date Expiration Date Visits Re quested Visits Authorized [id number] 1 1 Reason Comments Post-op Visit D&C [...] BE BASED ON THE PRIMARY CLINICAL RECORDS. [employer] provides no warranty or guarantee of the accuracy or completeness of information in this document.
[2025-03-29] MEDS: 0.9% Saline Lock 10 ML Syringe IV (08:00)
== END | disposition home or self-care (01) ==
LOC: OPMRI 07:17
PROVIDERS: PCP Physician Assistant; Referring Provider Internal Medicine Medical Oncology; Visit Provider Internal Medicine Medical Oncology
DX: R97.8 Other abnormal tumor markers (principal); C50.412 Malignant neoplasm of upper-outer quadrant of left female breast; R51.9 Headache, unspecified; Z17.0 Estrogen receptor positive status [ER+]
CPT/HCPCS: 70553; A9575; A4216

== ENCOUNTER → 2025-04-22 | Outpatient (CLI) | payer BC, SELFPAY ==
--- NOTE | 2025-04-22 08:17 | RAD_ITS ---
PROCEDURE: CON INJ REMI EVAL CVP INC FLURO 04/22/2025 REASON FOR EXAM: PAIN IN PORT AREA AND NECK TECHNIQUE: Procedure Code: RADCVPINJ Modality: DX Procedure: CON INJ REMI EVAL CVP INC FLURO. Fluoroscopy: 63 seconds. Radiation dose: 29.4 mGy. Under direct fluoroscopic guidance, Isovue-300 was injected into the indwelling right port a catheter. There is evidence of focal localized leak in the proximal portion of the catheter in the region of the right cervical area as well as in the right supraclavicular region. The tip of the catheter is in the right atrium. There is free flow of contrast. COMPARISON: None FINDINGS: Focal tiny area of leakage in the proximal portion of the right port a catheter as described. RAD/Con Inj Remi Eval CVP Inc Fluro IMPRESSION: Focal tiny area of leakage in the proximal portion of the right port as describ ed. Reading Location: [facility]
[2025-04-22] MEDS: 0.9% Saline Lock 10 ML Syringe IV (08:37)
[2025-04-22] MEDS: 0.9 % NaCl (Sterile) Posiflush 10 mL IV (08:37)
== END | disposition home or self-care (01) ==
LOC: RAD 08:15
PROVIDERS: PCP Physician Assistant; Referring Provider Internal Medicine Medical Oncology; Visit Provider Internal Medicine Medical Oncology
DX: T82.534A Leakage of infusion catheter, initial encounter (principal); T82.848A Pain due to vascular prosthetic devices, implants and grafts, initial encounter; Y71.8 Miscellaneous cardiovascular devices associated with adverse incidents, not elsewhere classified
CPT/HCPCS: 36598; Q9967; A4216

== ENCOUNTER 2025-05-03 08:54 | Day surgery (SDC) | payer BC, SELFPAY ==
--- NOTE | 2025-04-28 16:19 | PAT.ANESEVAL ---
Pre-Assessment Diagnosis/Proposed Procedure Planned Operative Procedure(s): REMOVAL RIGHT IJ PORT AND PLACE LEFT PORT Anesthesia History Anesthesia History - manager biostatistics: Anesthesia History - manager biostatistics Hx Hospitalization No 04/28/25 15:16 Any Problems With Anesthesia Yes: WOKE UP DURING KNEE 04/28/25 15:16 SURGERY 08/2024 AT [facility] Cholinesterase deficiency No 04/28/25 15:16 You/Your Family Experience No 04/28/25 15:16 fever (hyperthermia) with Relationship Recent Exposure to Contagious No 02/25/23 08:55 Disease Does patient have nerve No 04/28/25 15:16 stimulator Patient instructed to have device shut off --Does patient have Pacemaker or ICD? When Was Last Pacemaker Check QUESTION #4 FULL TEXT: You/Your Family Experience fever (hyperthermia) with Anesthesia Last Oral Intake Last Oral intake: Last Oral Intake NPO since Meds taken in AM with sips of water? Meds patient instructed to take am of surgery PONV PONV - manager biostatistics: PONV - manager biostatistics Female Yes 04/28/25 15:16 HX of Motion Sickness Yes 04/28/25 15:16 HX of N/V After Surgery No 04/28/25 15:16 Non-Smoker Yes 04/28/25 15:16 Duration of Surgery greater No 04/28/25 15:16 than 60 minutes Number of Risk Factors 3 04/28/25 15:16 PONV Score Moderate Risk 04/28/25 15:16 Height & Weight Height & Weight: Anesthesia: Height & Weight Height 5 ft 7 in 04/21/25 11:41 Respiratory Assessment Respiratory Assessment - manager biostatistics: Respiratory Tract Infection Hx - manager biostatistics Hx Respiratory Tract Infection No 04/28/25 15:16 STOP Sleep Apnea STOP Sleep Apnea - manager biostatistics: STOP Sleep Apnea - manager biostatistics Hx Hypertension No 04/28/25 15:16 Hx Sleep Apnea No 04/28/25 15:16 CPAP BIPAP Do you snore loudly (louder No 04/28/25 15:16 than talking or can be heard Do you often feel tired/ Yes 04/28/25 15:16 fatigued/ sleepy during daytime? Has anyone observed you stop No 04/28/25 15:16 breathing during sleep? STOP Results Negative 04/28/25 15:16 QUESTION #5 FULL TEXT : Do you snore loudly (louder than talking or can be heard through closed doors)? 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 Specify any problems Hx of Preganancy in last 3 No 04/28/25 15:16 Months Nurse Filling Out Transfusion DSCHRIBER 04/28/25 15:16 & Questions: Date: 04/28/25 04/28/25 15:16 Time: 15:18 04/28/25 15:16 Patient unable to answer at this time (ie. confused, unrespo /Reproduction History /Reproductive History - manager biostatistics: /Reproductive Hx- manager biostatistics Hx Now No 04/28/25 15:16 Gestational Age (in weeks): EDC: Hx Hx Para Hx Section SAB No 04/28/25 15:16 Does the father of the baby or his family experience fever w Father of the baby Malignant Hypertension history comment PFSH Medical History (Updated 04/28/25 @ 15:25 by Mary Edwards) Post-menopausal Bladder disease Easy bruising Shortness of breath on exertion History of edema Cardiology follow-up encounter History of echocardiogram HER2-positive carcinoma of breast Abnormal positron emission tomography (PET) scan Malignant neoplasm of overlapping sites of left female breast Left arm swelling Abnormal findings on diagnostic imaging of skull and head, not elsewhere classified Malignant neoplasm of upper-outer quadrant of left female breast Blood in toilet bowl Adverse effect of antineoplastic and immunosuppressive drugs, initial encounter Mucositis Adverse reaction to drug that acts primarily on skin Port-A-Cath in place Breast cancer metastasized to bone Neck swelling Skull lesion Anxiety about health Wears contact lenses Cancer Alcohol use High cholesterol Back pain Non-smoker Breast abscess Sebaceous cyst of breast Abnormal mammogram of right breast Segmental and somatic dysfunction of cervical region Segmental and somatic dysfunction of thoracic region Segmental and somatic dysfunction of lumbar region Arthritis Home Medications ?Medication ?Instructions ?Recorded ?Last Taken ?Type cholecalciferol (vitamin D3) 25 1,000 unit PO DAILY 02/20/18 Unknown History mcg (1,000 unit) capsule multivitamin 1 cap PO DAILY 02/20/18 Unknown History alprazolam 0.25 mg tablet 0.25 mg PO BID PRN anxiety #14 tabs 06/26/22 Unknown Rx biotin 10,000 mcg chewable tablet 10,000 mcg PO DAILY 01/09/24 Unknown History (Hair, Skin and Nails (biotin)) furosemide 40 mg tablet (Lasix) 40 mg PO .prn 90 days #90 tabs 04/19/24 Unknown Rx vitamin b6 1 tab PO DAILY 11/04/24 Unknown History lidocaine-prilocaine 2.5 %-2.5 % 1 applic topical ONCE PRN port 12/07/24 Unknown Rx topical cream access 30 days #30 grams simvastatin 20 mg tablet 20 mg PO QHS #90 tabs 01/04/25 Unknown Rx pertuzumab 420 mg/14 mL (30 mg/mL) 420 mg (14 mL) .Route Q21D #14 mL 03/24/25 Unknown Rx intravenous solution (Perjeta) trastuzumab-anns 420 mg 609 mg .Route Q21D #2 ea 03/24/25 Unknown Rx intravenous solution (Kanjinti) tamoxifen 20 mg tablet 40 mg PO DAILY 04/28/25 Unknown History tamoxifen 20 mg tablet 60 mg PO QHS 04/28/25 Unknown History tirzepatide (weight loss) 7.5 7.5 mg subcut TU 04/28/25 04/19/25 History mg/0.5 mL subcutaneous pen injector (Zepbound) Allergy/AdvReac Type Severity Reaction Status Date / Time latex Allergy Intermediate blisters Verified 04/28/25 15:11 Family History Brother Asthma Sister Asthma Grandfather Colon cancer Mother Diabetes Grandmother CVA (cerebral vascular accident) Surgical History (Updated 04/28/25 @ 15:25 by Mary Edwards) History of vascular access device History of knee replacement procedure of left knee Total knee replacement status History of cervical polypectomy S/P left breast biopsy Social History household members: spouse Smoking Status: Never smoker alcohol intake: current alcohol intake frequency: holidays/special occasions only substance use type: does not use what type of physical activity do you participate in: walking, aerobics, weight training and other details: ELLIPTICAL frequency: 3-4 times per week seatbelt use: always do you feel safe at home: Yes Audit: Pertinent Findings Pertinent Findings EKG Perinent findings: 02/12/2024. Normal sinus rhythm 76 bpm. Left axis deviation. Echo (EF%) pertinent findings: 03/08/2025. Normal size function EF 55%. Recommendation Anesthesia Recommendation Anesthesia recommendation: OPTIMIZED for anesthesia
[2025-05-03] VITALS (10 sets, daily range): BP systolic 119–137; BP diastolic 62–90; PULSE 71–79; RESP 14–20; TEMP 36.6–37.1; O2SAT 94–100; BMI 34.7
--- NOTE | 2025-05-03 09:51 | PCM.PRE.AN2 ---
ASA Classification* ASA Classification ASA Classification: 2 (Anxiety, breast CA, on zepbound (held on 04/19/25)) Assessment & Plan Anesthesia* Anesthesia Assessment Anesthesia Assessment: Discussed sedation and/or anesthesia options, risks, benefits, and alternatives with patient/parents/legal guardian/POA. Questions invited. The patient/parents/legal guardian/POA seems to understand and agrees to proceed with anesthesia plan. Reviewed the physical assessment, medical history, allergy history and patient home medications list prior to surgery/procedure/anesthetic and documented any changes. Performed airway and anesthesia risk assessments. Anesthesia Type Anesthesia Type: MAC History Source History Obtained from:: Patient and Chart Anesthesia Focused Assessment* Temperature: 98.3 F Pulse Rate: 79 Blood Pressure: 126/78 Respiratory Rate: 16 Pulse Ox: 97 Oxygen Delivery Method: Room Air Airway Assessment Mouth opens: >3 cm Mallampati Score: III Teeth Condition: Intact Neck Range of motion (ROM): Full ROM Labs Anesthesia Preop lab: CBC WBC, (4.4-11.0) 9.9 K/mm3 04/21/25, 11:37 RBC, (4.2-5.4) 4.47 M/mm3 04/21/25, 11:37 Hgb, (12.0-15.0) 13.6 g/dL 04/21/25, 11:37 Hct, (37-47) 41.5 % 04/21/25, 11:37 Plt Count, (150-450) 209 K/mm3 04/21/25, 11:37 CHEMISTRY Potassium, (3.3-5.1) 4.2 mmol/L 04/21/25, 10:54 Sodium, (133-145) 139 mmol/L 04/21/25, 10:54 Magnesium, (1.6-2.6) 2.0 mg/dL 10/10/22, 08:00 Phosphorus, (2.5-4.9) 2.4 mg/dL L 10/31/22, 12:58 BUN, (4-19) 21 mg/dL H 04/21/25, 10:54 Creatinine, (0.70-1.20) 0.78 mg/dL 04/21/25, 10:54 Glucose, (70-99) 95 mg/dL 04/21/25, 10:54 TSH, (0.358-3.74) 1.50 uIU/mL 01/15/24, 10:27 COAG PT, (11.7-14.9) 14.1 SECONDS 04/21/25, 11:37 Urine Test Negative Negative 06/17/22, 09:00 Pre-Assessment Diagnosis/Proposed Procedure Planned Operative Procedure(s): REMOVAL RIGHT IJ PORT AND PLACE LEFT PORT Anesthesia History Anesthesia History - ict support engineer: Anesthesia History - ict support engineer Hx Hospitalization No 04/28/25 15:16 Any Problems With Anesthesia Yes: WOKE UP DURING KNEE 04/28/25 15:16 SURGERY 08/2024 AT [facility] Cholinesterase deficiency No 04/28/25 15:16 You/Your Family Experience No 04/28/25 15:16 fever (hyperthermia) with Relationship Recent Exposure to Contagious No 05/03/25 09:26 Disease Does patient have nerve No 04/28/25 15:16 stimulator Patient instructed to have device shut off --Does patient have Pacemaker No 05/03/25 09:26 or ICD? When Was Last Pacemaker Check QUESTION #4 FULL TEXT: You/Your Family Experience fever (hyperthermia) with Anesthesia Last Oral Intake Last Oral intake: Last Oral Intake NPO since 03:44 05/03/25 09:26 Meds taken in AM with sips of No 05/03/25 09:26 water? Meds patient instructed to take am of surgery PONV PONV - ict support engineer: PONV - ict support engineer Female Yes 04/28/25 15:16 HX of Motion Sickness Yes 04/28/25 15:16 HX of N/V After Surgery No 04/28/25 15:16 Non-Smoker Yes 04/28/25 15:16 Duration of Surgery greater No 04/28/25 15:16 than 60 minutes Number of Risk Factors 3 04/28/25 15:16 PONV Score Moderate Risk 04/28/25 15:16 Height & Weight Height & Weight: Anesthesia: Height & Weight Height 5 ft 8 in 05/03/25 09:26 Weight: 103.8 kg 05/03/25 09:26 Body Mass Index (BMI) 34.7 05/03/25 09:26 Respiratory Assessment Respiratory Assessment - ict support engineer: Respiratory Tract Infection Hx - ict support engineer Hx Respiratory Tract Infection No 04/28/25 15:16 STOP Sleep Apnea STOP Sleep Apnea - ict support engineer: STOP Sleep Apnea - ict support engineer Hx Hypertension No 04/28/25 15:16 Hx Sleep Apnea No 04/28/25 15:16 CPAP BIPAP Do you snore loudly (louder No 04/28/25 15:16 than talking or can be heard Do you often feel tired/ Yes 04/28/25 15:16 fatigued/ sleepy during daytime? Has anyone observed you stop No 04/28/25 15:16 breathing during sleep? STOP Results Negative 04/28/25 15:16 QUESTION #5 FULL TEXT : Do you snore loudly (louder than talking or can be heard through closed doors)? 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 Specify any problems Hx of Preganancy in last 3 No 04/28/25 15:16 Months Nurse Filling Out Transfusion DSCHRIBER 04/28/25 15:16 & Questions: Date: 04/28/25 04/28/25 15:16 Time: 15:18 04/28/25 15:16 Patient unable to answer at this time (ie. confused, unrespo /Reproduction History /Reproductive History - ict support engineer: /Reproductive Hx- ict support engineer Hx Now No 04/28/25 15:16 Gestational Age (in weeks): EDC: Hx Hx Para Hx Section SAB No 04/28/25 15:16 Does the father of the baby or his family experience fever w Father of the baby Malignant Hypertension history comment Active Medications Active Medications: Current Medications Generic Name Dose Route Start Last Admin Trade Name Freq PRN Reason Stop Dose Admin Lactated Ringer's 1,000 mls @ 15 mls/hr 05/03/25 09:00 IV .Q48H [facility] PFSH Medical History (Updated 04/30/25 @ 10:[address] Yvonne Hinojosa MD) Post-menopausal Bladder disease Easy bruising Shortness of breath on exertion History of edema Cardiology follow-up encounter History of echocardiogram HER2-positive carcinoma of breast Abnormal positron emission tomography (PET) scan Malignant neoplasm of overlapping sites of left female breast Left arm swelling Abnormal findings on diagnostic imaging of skull and head, not elsewhere classified Malignant neoplasm of upper-outer quadrant of left female breast Blood in toilet bowl Adverse effect of antineoplastic and immunosuppressive drugs, initial encounter Mucositis Adverse reaction to drug that acts primarily on skin Port-A-Cath in place Breast cancer metastasized to bone Neck swelling Skull lesion Anxiety about health Wears contact lenses Cancer Alcohol use High cholesterol Back pain Non-smoker Breast abscess Sebaceous cyst of breast Abnormal mammogram of right breast Segmental and somatic dysfunction of cervical region Segmental and somatic dysfunction of thoracic region Segmental and somatic dysfunction of lumbar region Arthritis Home Medications ?Medication ?Instructions ?Recorded ?Last Taken ?Type cholecalciferol (vitamin D3) 25 1,000 unit PO DAILY 02/20/18 Unknown History mcg (1,000 unit) capsule multivitamin 1 cap PO DAILY 02/20/18 Unknown History alprazolam 0.25 mg tablet 0.25 mg PO BID PRN anxiety #14 tabs 06/26/22 Unknown Rx biotin 10,000 mcg chewable tablet 10,000 mcg PO DAILY 01/09/24 Unknown History (Hair, Skin and Nails (biotin)) furosemide 40 mg tablet (Lasix) 40 mg PO .prn 90 days #90 tabs 04/19/24 Unknown Rx vitamin b6 1 tab PO DAILY 11/04/24 Unknown History lidocaine-prilocaine 2.5 %-2.5 % 1 applic topical ONCE PRN port 12/07/24 Unknown Rx topical cream access 30 days #30 grams simvastatin 20 mg tablet 20 mg PO QHS #90 tabs 01/04/25 Unknown Rx pertuzumab 420 mg/14 mL (30 mg/mL) 420 mg (14 mL) .Route Q21D #14 mL 03/24/25 Unknown Rx intravenous solution (Perjeta) trastuzumab-anns 420 mg 609 mg .Route Q21D #2 ea 03/24/25 Unknown Rx intravenous solution (Kanjinti) tamoxifen 20 mg tablet 40 mg PO DAILY 04/28/25 Unknown History tamoxifen 20 mg tablet 60 mg PO QHS 04/28/25 Unknown History tirzepatide (weight loss) 7.5 7.5 mg subcut TU 04/28/25 04/19/25 History mg/0.5 mL subcutaneous pen injector (Zepbound) Allergy/AdvReac Type Severity Reaction Status Date / Time latex Allergy Intermediate blisters Verified 05/03/25 09:23 Family History Brother Asthma Sister Asthma Grandfather Colon cancer Mother Diabetes Grandmother CVA (cerebral vascular accident) Surgical History (Updated 04/28/25 @ 15:25 by Mary Edwards) History of vascular access device History of knee replacement procedure of left knee Total knee replacement status History of cervical polypectomy S/P left breast biopsy Social History household members: spouse Smoking Status: Never smoker alcohol intake: current alcohol intake frequency: holidays/special occasions only substance use type: does not use what type of physical activity do you participate in: walking, aerobics, weight training and other details: ELLIPTICAL frequency: 3-4 times per week seatbelt use: always do you feel safe at home: Yes Review of Systems (Anesthesia) ROS Narrative System reviewed and no additional complaints, except as documented. Physical Exam Const alert, oriented x3 and average body habitus Resp normal respiratory effort, normal air movement and clear to auscultation bilaterally Cardio regular rate, regular rhythm and no murmurs; Negative for diaphoretic
[2025-05-03] MEDS: Lactated Ringers 1,000 ML 15 ML IV (09:53)
--- NOTE | 2025-05-03 09:59 | PCM.HP.BLA ---
History and Physical Date of Admission: 05/03/25 Date of Service: 04/29/25 MR#: [id number] Acct: [id number] Name: VALORIE RUSSELL Rep #: [id number] : 1970 Provider: Dr. Yvonne Hinojosa MD Age/Sex: 55/F Location: [facility] Status: Signed Intake Vital Signs 04/21/2511:41 04/29/2508:40 Height 5 ft 7 in 5 ft 7 in Weight: 225 lb 1 oz 228 lb BMI 35.2 35.6 BP 139/77 H 110/76 Blood Pressure Location Lt brachial Rt brachial Position Sitting Sitting Respiration 18 17 Pulse 81 88 Pulse Source Monitor Monitor Temp 98.7 F Pulse Oximetry (%) 96 97 Oxygen Delivery Method room air room air Intake Visit Reasons: port exchange Chief Complaint: port exchange Accompanied by: Is patient in pain?: No Allergies latex Allergy (Intermediate, Verified 04/29/25 08:41) blisters Medications ?Medication ?Instructions ?Recorded ?Confirmed ?Type cholecalciferol (vitamin D3) 25 1,000 unit PO DAILY 02/20/18 04/29/25 History mcg (1,000 unit) capsule multivitamin 1 cap PO DAILY 02/20/18 04/29/25 History alprazolam 0.25 mg tablet 0.25 mg PO BID PRN anxiety #14 tabs 06/26/22 04/29/25 Rx biotin 10,000 mcg chewable tablet 10,000 mcg PO DAILY 01/09/24 04/29/25 History (Hair, Skin and Nails (biotin)) furosemide 40 mg tablet (Lasix) 40 mg PO .prn 90 days #90 tabs 04/19/24 04/29/25 Rx vitamin b6 1 tab PO DAILY 11/04/24 04/29/25 History lidocaine-prilocaine 2.5 %-2.5 % 1 applic topical ONCE PRN port 12/07/24 04/29/25 Rx topical cream access 30 days #30 grams simvastatin 20 mg tablet 20 mg PO QHS #90 tabs 01/04/25 04/29/25 Rx pertuzumab 420 mg/14 mL (30 mg/mL) 420 mg (14 mL) .Route Q21D #14 mL 03/24/25 04/29/25 Rx intravenous solution (Perjeta) trastuzumab-anns 420 mg 609 mg .Route Q21D #2 ea 03/24/25 04/29/25 Rx intravenous solution (Kanjinti) tamoxifen 20 mg tablet 40 mg PO DAILY 04/28/25 04/29/25 History tamoxifen 20 mg tablet 60 mg PO QHS 04/28/25 04/29/25 History tirzepatide (weight loss) 7.5 7.5 mg subcut TU 04/28/25 04/29/25 History mg/0.5 mL subcutaneous pen injector (Zepbound) [facility] Medical History (Updated 04/30/25 @ 10:[address] Yvonne Hinojosa MD) Post-menopausal Bladder disease Easy bruising Shortness of breath on exertion History of edema Cardiology follow-up encounter History of echocardiogram HER2-positive carcinoma of breast Abnormal positron emission tomography (PET) scan Malignant neoplasm of overlapping sites of left female breast Left arm swelling Abnormal findings on diagnostic imaging of skull and head, not elsewhere classified Malignant neoplasm of upper-outer quadrant of left female breast Blood in toilet bowl Adverse effect of antineoplastic and immunosuppressive drugs, initial encounter Mucositis Adverse reaction to drug that acts primarily on skin Port-A-Cath in place Breast cancer metastasized to bone Neck swelling Skull lesion Anxiety about health Wears contact lenses Cancer Alcohol use High cholesterol Back pain Non-smoker Breast abscess Sebaceous cyst of breast Abnormal mammogram of right breast Segmental and somatic dysfunction of cervical region Segmental and somatic dysfunction of thoracic region Segmental and somatic dysfunction of lumbar region Arthritis Surgical History (Updated 04/28/25 @ 15:25 by Mary Edwards) History of vascular access device History of knee replacement procedure of left knee Total knee replacement status History of cervical polypectomy S/P left breast biopsy Family History Brother Asthma Sister Asthma Grandfather Colon cancer Mother Diabetes Grandmother CVA (cerebral vascular accident) Social History household members: spouse Smoking Status: Never smoker alcohol intake: current alcohol intake frequency: holidays/special occasions only substance use type: does not use what type of physical activity do you participate in: walking, aerobics, weight training and other details: ELLIPTICAL frequency: 3-4 times per week seatbelt use: always do you feel safe at home: Yes HPI HPI HPI: 55-year-old female presents due to an nicking right IJ Port-A-Cath. Patient has been having pain discomfort with the injection showing early March on her right neck. Imaging did show questionable extravasation at the catheter were turned down to into the internal jugular. She has not been using her catheter currently. Next treatment beginning of May. ROS General General: Yes weight change, fatigue and breast cancer; No appetite, colon cancer or weakness HEENT HEENT: No difficulty swallowing, eye injury, eye surgery, swollen glands or hoarseness Endo Endocrine: No thyroid disease, diabetes mellitus, thyroid cancer, Hair loss, heat intolerance or cold intolerance Skin Skin: Yes rash; No changing moles Musc Musculoskeletal: Yes back problems and arthritis; No rheumatoid arthritis, gout or joint pain Cardio Cardiovascular: No murmur, pacemaker, heart disease, atrial fibrillation, high blood pressure, heart attack, heart stent, palpitations, shortness of breath with exertion or chest pain Psych Psychiatric: Yes anxiety; No depression or hearing voices Resp Respiratory: No shortness of breath, No sleep apnea, No cough, No COPD, No asthma, No emphysema and No wheezing Gastro Gastrointestinal: No abdominal pain, No nausea or vomiting, No diarrhea, No constipation, No blood in stool, No acid reflux, No hemorrhoids, No ulcers, No gallbladder problem and No black,tarry stools Sahil Hematologic: No blood thinners, No blood disorders, No bleeding, No anemia and No blood clots Neuro Neurologic: Yes numbness, Yes tingling and No weakness Exam Const General: cooperative, healthy appearing, comfortable and no acute distress [facility] Head: normocephalic and atraumatic Neck Neck: supple Chest Other: Right IJ Port-A-Cath incision well-healed, palpation bilateral upper chest normal. Resp Effort & Inspection: normal respiratory effort Cardio Rate: regular rate GI Inspection: non-distended Skin General: no rashes or lesions noted Neuro General: CN's II-XI intact bilaterally Extrem General: normal to inspection Psych Mental Status: mental status grossly normal Attitude: cooperative Assessment and Plan Assessment and Plan (1) Encounter for adjustment or management of vascular access device: Status: Acute Plan I have discussed above with the patient- Port-a-Cath placement. Left IJ and removal of the right IJ with cut down the neck to make sure to control the catheter as it may be partially fractured due to extravasation seen on imaging. Patient has been counseled as to the risks/benefits of the procedure. I have explained the risks of the surgery, including but not limited to: infection, bleeding, injury to any blood vessels/nerves, injury to lungs (such as pneumothorax or hemothorax and need for chest tube), not having any access, nonfunctioning of port due to thrombosis, infection of port, etc. the patient understands and agrees to proceed. I have answered all the patient's questions to the patient?s satisfaction and the patient has no further questions. Yvonne Hinojosa M.D. Pager: [phone] [facility] [address] [place] [address], [address] [place] [address] Office: [phone] Coding Level of Care Code Off vis,est,level 3 Diagnoses Encounter for adjustment or management of vascular access device Z45.2 Additional Codes Intake - Is patient in pain?: No (1126F) 04/30/25 1020 <Electronically signed by Yvonne Hinojosa MD> Date Yvonne Hinojosa MD
[2025-05-03] MEDS: Lactated Ringers 1,000 ML 1000 ML IV (10:45)
[2025-05-03] MEDS: Midazolam 2 MG/2 ML Syringe IV (10:45)
[2025-05-03] MEDS: Cefazolin 1 GM/5 ML Vial 2 GM IV (10:50)
[2025-05-03] MEDS: fentaNYL 100 MCG/2 ML Ampul IV (10:50)
[2025-05-03] MEDS: Lidocaine 1% (5 ml sdv) 5 ML Vial IV (10:55)
[2025-05-03] MEDS: Lidocaine 1% /Epi 1:100 (20ml) 20 ML Vial (10:59)
--- NOTE | 2025-05-03 11:43 | RAD_ITS ---
PROCEDURE: CHEST 1 VIEW (PORTABLE) 05/03/2025 REASON FOR EXAM: PORT TECHNIQUE: Frontal view of the chest. COMPARISON: Frontal chest, 10/29/2022 FINDINGS: The lungs are clear. The heart borders mediastinum and pulmonary vascular pattern are normal. There is a left IJ Port-A-Cath, with the tip in the SVC. RAD/Chest 1 View (Portable) IMPRESSION: No evidence of acute cardiopulmonary pathology. Status post removal of the rig ht IJ Port-A-Cath and placement of a left IJ Port-A-Cath with the tip in the SVC Reading Location: [id number]
--- NOTE | 2025-05-03 11:43 | OP.PCM_ITS ---
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: Yes [facility] Nurse: Lynette Wilson Tasks completed by assistant farm operations manager: Opening & closing Type of Anesthesia: Local MAC RN Documented Start/Stop Times: Operation Date: 05/03/25 10:30 Case Time Into Pre-Op 05/03/25 08:59 Out of Pre-Op 05/03/25 10:41 Anesthesia Start 05/03/25 10:45 Into Room 05/03/25 10:45 Procedure Start 05/03/25 10:59 Procedure End 05/03/25 11:46 Anesthesia End 05/03/25 11:49 Out of Room 05/03/25 11:49 Into Recovery 05/03/25 11:52 Out of Recovery 05/03/25 12:31 Into Phase II Recovery 05/03/25 12:32 Out of Phase II 05/03/25 13:12 Procedure Start Time: 10:59 Procedure Stop Time: 11:46 Select all DRAINS/GRAFTS/IMPLANTS that apply: Implanted device Implanted device details: [employer] PowerPort isp M.R.I. 6Fr Lot [id number] ref [id number] Special Medications: Ancef 2 g IV x 1 Estimated Blood Loss: < 10 cc Specimen collected: No Description of surgery: After informed consent was given, the patient was brought to the operating room and placed in the supine position. Appropriate time out protocol was followed. Patient was then given IV conscious sedation for anesthesia. The right chest was prepped and draped in usual sterile fashion. Local anesthesia of 1% lidocaine with epi was used. The previous right port site was re-incised with a 15 blade scalpel in Metzenbaum scissors were used to sharply incise the capsule surrounding the port. Did keith the neck in case we need to do a cutdown however catheter did pull very easy. The catheter was removed while pressure was being held on the right IJ site externally. Next the port was removed from the pocket. The incision was closed with 3-0 Vicryl subdermal sutures with Steri's and OpSite. The patient's left upper chest and neck were then prepped with a surgical skin preparation and sterile surgical drapes were placed. After proper landmarks were ascertained, the skin at the upper left chest area was then infiltrated with 1:1 mixture of 1% lidocaine with epinephrine and 0.5% marcaine. A needle trocar was then inserted into the left internal jugular vein with ultrasound guidance-multiple vessels were viewed with u/s and the left IJ was chosen-- and there was good aspiration of venous blood. A wire was then threaded into the needle trocar and this was visualized under fluoroscopy to ensure that the wire was in the superior vena cava. Once this was done, then the needle trocar was removed. A small skin glory was made with an 11 blade knife at the wire entrance site. The dilator with the introducer sheath attached was then placed over the wire into the left internal jugular vein via the Seldinger technique and this was visualized under fluoroscopy. The dilator and sheath were in proper position as visualized by fluoroscopy. A subcutaneous pocket was then created caudad to the catheter insertion site. A transverse skin incision was made after the skin and subcutaneous tissues were infiltrated with local anesthetic. Blunt dissection was then used to create a space large enough for placement of the subcutaneous port. The catheter was then tunneled into the subcutaneous pocket. The wire and dilator were then removed. The catheter was then threaded into the introducer sheath and was positioned with its tip at the junction of the superior vena cava and the right atrium as visualized under fluoroscopy. The excess catheter was transected. The catheter was then attached to the subcutaneous port using manufacturers guidelines. The catheter was flushed with a heparin saline mixture prior to placement. Hemostasis was carefully controlled with electrocautery. The port was sutured to the subcutaneous fascia using 2-0 Vicryl suture at two sites. The port was then placed in the subcutaneous pocket. The incision were reapproximated with interrupted subdermal 3-0 vicryl sutures. The skin was reapproximated with 3-0 nylon suture in a interrupted fashion. Steristrips were used for reinforcement of the skin closure at IJ insertion site and a sterile opsite dressings were applied. The patient tolerated the procedure well. Surgical Findings: See operative report Complications Complications: No
--- NOTE | 2025-05-03 11:46 | EX.PCM.DISCH ---
Discharge Instructions Procedure Port-A-Cath Diet Discharge Diet: Light diet - advance as tolerated Activity May shower in (days): 5 (Keep LEFT port site clean and dry x5 days. Neck incision okay to get wet after 1 day. Okay to lower shower and upper sponge bath. OR okay to taper off port site with a Ziploc bag to shower) Lifting Restrictions: No lifting > 15 pounds for 2 days with the arm on the left Dressing / Incision Call your doctor if your incision/area has: Continuous Slow Oozing, Sudden Increased Bleeding, Increased Pain/ Swelling, Increased Redness, Foul Smelling Discharge and Swelling at the incision site Call your doctor if you observe: Fever of 101 or Higher Change Dressing in: 2 days (2-3 days- port site; ok to remove neck opsite in 1 day) Follow Up Care Please Follow Up With: Yvonne Hinojosa MD When: In 10 days for permanent suture removal?call office for appointment Test Results: Test results from this visit will be discussed in further detail at your follow-up appointment, if applicable. Discharge Plan Admission Attending Provider: Yvonne Hinojosa Primary Care Provider: Blue Alicia Instructions Print Language: Armenian Discharge Orders/Prescriptions Prescriptions: New oxycodone 5 mg capsule 5 mg PO Q6H PRN (Reason: pain) 2 Days Qty: 5 0RF Continued cholecalciferol (vitamin D3) 1,000 unit capsule 1,000 unit PO DAILY multivitamin capsule 1 cap PO DAILY alprazolam 0.25 mg tablet 0.25 mg PO BID PRN (Reason: anxiety) Qty: 14 0RF Hair, Skin and Nails (biotin) 10,000 mcg tablet,chewable 10,000 mcg PO DAILY vitamin b6 1 tab PO DAILY Perjeta 420 mg/14 mL (30 mg/mL) solution 420 mg .Route Q21D Qty: 14 11RF Rx Instructions: 420 mg every 21 days; INTRAVENOUSLY FOR BREAST CANCER; EVERY 21 DAYS Kanjinti 420 mg recon soln 609 mg .Route Q21D Qty: 2 11RF Rx Instructions: 609 mg every 21 days; INTRAVENOUSLY FOR BREAST CANCER TREATMENT; EVERY 21 DAYS tamoxifen 20 mg tablet 60 mg PO QHS tamoxifen 20 mg tablet 40 mg PO DAILY Zepbound 7.5 mg/0.5 mL pen injector 7.5 mg subcut TU furosemide [Lasix] 40 mg tablet 40 mg PO .prn 90 Days Qty: 90 3RF lidocaine-prilocaine 2.5-2.5 % cream 1 applic topical ONCE PRN (Reason: port access) 30 Days Qty: 30 2RF simvastatin 20 mg tablet 20 mg PO QHS Qty: 90 1RF Referrals / Follow Up: Blue Alicia PA [Primary Care Provider, Internal Medicine] Disposition Disposition (needs filled in before D/C Order can be placed): Home, Self Care
--- NOTE | 2025-05-03 11:55 | PCM.POST.ANE ---
Anesthesia: Postop Eval I Current Vital Signs Temperature: 97.9 F Pulse Rate: 71 Blood Pressure: 132/71 Respiratory Rate: 20 Pulse Ox: 98 Oxygen Delivery Method: Room Air Assessment Airway patent: Yes Spontaneous unlabored respirations: Yes Mental status: Awake and Calm nausea: No Vomiting: No Anesthesia Complication: No Fluid Hydration Crystalloid volume administer (ml): 800 Total IV fluid infused: 800 Progress Note Anesthesia document: Postop Eval 1 completed: Yes
--- NOTE | 2025-05-03 13:38 | POSTOPAN2_ITS ---
Anesthesia Postop Eval I Sum Postop Eval Completion status Anesthesia document: Postop Eval 1 completed: Yes Anesthesia Postop Eval I Summary Anesthesia Postop Eval I Summary: Anesthesia Postop Eval I: Assessment Summary Airway patent Yes 05/03/25 11:56 TECHNICAL PROGRAM [email or web address] Spontaneous unlabored Yes 05/03/25 11:56 TECHNICAL PROGRAM [email or web address] respirations Mental status Awake,Calm 05/03/25 11:56 TECHNICAL PROGRAM [email or web address] nausea No 05/03/25 11:56 TECHNICAL PROGRAM [email or web address] Vomiting No 05/03/25 11:56 TECHNICAL PROGRAM [email or web address] Anesthesia Postop Eval I: Fluid Summary Crystalloid volume administer 800 05/03/25 11:56 TECHNICAL PROGRAM [email or web address] (ml) Colloids volume administered ( ml) Blood Product volume administered (ml) Total IV fluid infused 800 05/03/25 11:56 TECHNICAL PROGRAM [email or web address] Anesthesia Postop Eval I: Summary Notes Anesthesia Complication No 05/03/25 11:56 TECHNICAL PROGRAM [email or web address] Anesthesia Complication Comment: Post-operative progress note Anesthesia: Postop Eval II Evaluation Mental status: Awake Pain Level: 0 nausea: No Vomiting: No Complications Anesthesia Complication: No
--- NOTE | 2025-05-03 13:38 | PCM.POSTANE2 ---
Anesthesia Postop Eval I Sum Postop Eval Completion status Anesthesia document: Postop Eval 1 completed: Yes Anesthesia Postop Eval I Summary Anesthesia Postop Eval I Summary: Anesthesia Postop Eval I: Assessment Summary Airway patent Yes 05/03/25 11:56 RN DOCUMENT [email or web address] Spontaneous unlabored Yes 05/03/25 11:56 RN DOCUMENT [email or web address] respirations Mental status Awake,Calm 05/03/25 11:56 RN DOCUMENT [email or web address] nausea No 05/03/25 11:56 RN DOCUMENT [email or web address] Vomiting No 05/03/25 11:56 RN DOCUMENT [email or web address] Anesthesia Postop Eval I: Fluid Summary Crystalloid volume administer 800 05/03/25 11:56 RN DOCUMENT [email or web address] (ml) Colloids volume administered ( ml) Blood Product volume administered (ml) Total IV fluid infused 800 05/03/25 11:56 RN DOCUMENT [email or web address] Anesthesia Postop Eval I: Summary Notes Anesthesia Complication No 05/03/25 11:56 RN DOCUMENT [email or web address] Anesthesia Complication Comment: Post-operative progress note Anesthesia: Postop Eval II Evaluation Mental status: Awake Pain Level: 0 nausea: No Vomiting: No Complications Anesthesia Complication: No
== END 2025-05-03 13:12 | disposition home or self-care (01) ==
LOC: SDC 08:55 → AC 09:47
PROVIDERS: PCP Physician Assistant; Referring Provider Surgery; Visit Provider Surgery
PROC: (CPT 36590; principal; 2025-05-03 10:15)
DX: Z45.2 Encounter for adjustment and management of vascular access device (principal); C50.412 Malignant neoplasm of upper-outer quadrant of left female breast; Z17.0 Estrogen receptor positive status [ER+]; E78.00 Pure hypercholesterolemia, unspecified; Z79.899 Other long term (current) drug therapy
CPT/HCPCS: 36590; 36561; 00532; 71045; 77001; J2405